=== PATIENT | female | born 1940 | race Caucasian/White ===

== ENCOUNTER 2019-02-05 15:10 | Emergency (ER) | payer MEDICARE, SELFPAY ==
[2018-11-25 13:16] VITALS: BMI 34.0
[2019-02-05 15:11] VITALS: BP 146/98; PULSE 64; RESP 16; TEMP 36.9; O2SAT 98; BMI 33.6
--- NOTE | 2019-02-05 15:30 | CT_ITS ---
STUDY: CT CHEST WITH CONTRAST REASON FOR EXAM: Female, 78 years old. Right flank pain, fall RADIATION DOSAGE (If Supplied By Facility): CTDIvol = ( 18.11 ) mGy, DLP = ( 1528.54 ) mGycm TECHNIQUE: Transaxial imaging was performed following intravenous administration of 100 IV Isovue 300. Multiplanar coronal and sagittal images were reformatted. Individualized dose optimization techniques were used for this CT. COMPARISON: None. FINDINGS: Minimal atelectasis in the lung bases. There is no demonstrated pleural abnormality. Normal heart and pericardium. Normal mediastinum. Normal hilar regions. Normal enhanced pulmonary arteries. Normal aorta arch and descending thoracic aorta. There is surgical clips of the left breast/axilla. Low-density nodule in the central left breast is seen on image 50 with ringlike calcification anteriorly. There is a transverse, mildly displaced fracture of the right posterior 11th rib on image 95 of series 2. No additional rib fractures are seen. Upper abdomen described on abdomen/pelvis CT report. CT/Chest WITH Contrast IMPRESSION: 1. Nondisplaced right posterior 11th rib fracture. 2. Scarring in the lingula, possibly related to prior radiation therapy. 3. 1.4 cm nodule left breast, correlation with prior imaging/mammography suggested. Electronically Signed: Cecilio Phillips MD at 16:36 EDT , Service support ,
--- NOTE | 2019-02-05 15:30 | CT_ITS ---
STUDY: CT ABDOMEN AND PELVIS WITH CONTRAST REASON FOR EXAM: Female, 78 years old. Fall, right flank pain RADIATION DOSAGE (If Supplied By Facility): CTDIvol = ( 18.11 ) mGy, DLP = ( 1528.54 ) mGycm TECHNIQUE: Transaxial images were obtained from the dome of the diaphragm to the symphysis pubis without oral contrast. 100 IV Isovue 300 was administered. Sagittal and coronal images were reconstructed. Individualized dose optimization techniques were used for this CT. COMPARISON: None. FINDINGS: The visualized lung bases are unremarkable. The visualized portions of the heart are within normal limits. There is intrahepatic and extrahepatic bile duct dilation with the CBD measuring up to 9.4 mm. Rounded soft tissue density in the lower CBD is identified in coronal image 55 measuring 8-9 mm. The gallbladder appears to be surgically absent. There are multiple benign calcified granulomata of the spleen. Normal pancreas. There is a nodule of the left adrenal gland measuring 8.8 mm. Normal right kidney. Normal left kidney. Normal visualized stomach. Normal small intestine. No colonic wall thickening. There is non-visualization of the appendix. There is diffuse atherosclerotic calcification of the abdominal aorta, without a demonstrated aneurysm. Normal inferior vena cava. Normal retroperitoneum. Normal urinary bladder. Normal abdominal wall. There degenerative changes of the lumbar spine. Grade 1 spondylolisthesis of L4-L5 likely due to facet arthropathy. Canal narrowing at L3-L4 and L4-L5. CT/Abdomen/Pelvis WITH Contrast IMPRESSION: 1. No solid or injury or pneumoperitoneum. 2. Extrahepatic and intrahepatic bile duct dilation with possible distal CBD obstruction. Correlation with laboratory/bilirubin values recommended. Additional workup may be needed. 3. Indeterminate adrenal lesion which does not meet imaging criteria for a lipid rich adenoma. 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 4. Chronic changes, as above. Electronically Signed: Cecilio Phillips MD at 16:33 EDT , Service support ,
--- NOTE | 2019-02-05 15:31 | ED.VISSUMM ---
- ER Visit Summary Date of Service: 02/05/19 Chief Complaint: Fall History of Present Illness: The patient is a 78 F who presents after a fall. Patient leaned out the door of her camper and was going to pull the door shut but lost her balance and fell over the side of the stairs instead. She was up 3 stairs and fell down onto wooden furniture below. Patient denies hitting her head or hurting her neck. She is complaining of right sided back and chest pain. Patient has worsening pain with deep breath. She does not denies any shortness of breath. She is on aspirin daily. Has history of breast cancer on the left. Is not on any other blood thinners. Denies any other injuries. Physical Examination: Vital signs: afebrile, hemodynamically stable, no hypoxia on room air General: well nourished, well developed, in no distress Skin: warm, dry, no rash, no pallor HEENT: normocephalic and atraumatic; PERRL, EOMI, moist mucous membranes, no maxillofacial trauma, neck is supple, no midline tenderness deformities or step-offs, full active range of motion Cardiovascular: regular rate and rhythm without murmurs, no peripheral edema, 2+ pulses all distal extremities, tenderness to palpation of the right chest without any noted crepitus Respiratory: No increased work of breathing but more shallow breaths secondary to pain, lungs are clear to auscultation bilaterally, no rales, rhonchi or wheezing Abdominal: Abdomen is soft, nontender with normoactive bowel sounds, no guarding or rebound, no masses Back: Contusion on the right flank with diffuse tenderness of the right thoracic and lumbar back MSK: Moves all extremities, no deformities, normal strength Neuro: Awake and alert, oriented ?4. No facial droop, sensation and motor function intact and symmetric Test Results: Abnormal Lab Results 02/05/19 02/05/19 02/05/19 15:40 15:40 15:40 WBC 7.8 RBC 3.76 L Hgb 11.4 L Hct 35.1 L MCV 93.4 MCH 30.3 MCHC 32.5 RDW 13.3 RDW Differential 44.3 H Plt Count 256 MPV 10.8 Immature Gran % (Auto) 0.300 Neut % (Auto) 69.4 Lymph % (Auto) 21.0 [place] % (Auto) 7.9 Eos % (Auto) 1.0 Baso % (Auto) 0.4 Absolute Neuts (auto) 5.4 Absolute Lymphs (auto) 1.64 Total Counted Not Reportable PT 13.1 INR 1.0 APTT 27.9 Sodium 141 Potassium 3.9 Chloride 106 Carbon Dioxide 28.0 Anion Gap 7 BUN 30 H Creatinine 1.75 H Estim Creat Clear Calc 20.95 Est GFR (MDRD) Af Amer 36 L Est GFR (MDRD) Non-Af 30 L BUN/Creatinine Ratio 17.1 Glucose 100 Calcium 8.7 Clinical Impression(s) from Imaging Studies Abdomen/Pelvis CT 02/05/19 15:30 IMPRESSION: 1. No solid or injury or pneumoperitoneum. 2. Extrahepatic and intrahepatic bile duct dilation with possible distal CBD obstruction. Correlation with laboratory/bilirubin values recommended. Additional workup may be needed. 3. Indeterminate adrenal lesion which does not meet imaging criteria for a lipid rich adenoma. 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 4. Chronic changes, as above. Electronically Signed: Cecilio Phillips MD at 16:33 EDT , Service support , Chest CT 02/05/19 15:30 IMPRESSION: 1. Nondisplaced right posterior 11th rib fracture. 2. Scarring in the lingula, possibly related to prior radiation therapy. 3. 1.4 cm nodule left breast, correlation with prior imaging/mammography suggested. Electronically Signed: Cecilio Phillips MD at 16:36 EDT , Service support , Medications Given Discontinued Medications Sodium Chloride () 1,000 mls @ 999 mls/hr IV .Q1H1M ONE Stop: 02/05/19 16:30 Last Admin: 02/05/19 15:42 Dose: 999 mls/hr Morphine Sulfate () 4 mg IV X1 ONE Stop: 02/05/19 15:31 Last Admin: 02/05/19 15:42 Dose: 4 mg Ondansetron HCl (Zofran) 4 mg IV X1 ONE Stop: 02/05/19 15:31 Last Admin: 02/05/19 15:42 Dose: 4 mg Emergency Department Course and Treatment: Patient was given morphine and Zofran for symptomatic relief. Labs showed no significant derangements from patient's baseline. Because of her age and the mechanism of injury and location of her injuries, CT of the chest abdomen and pelvis was performed. There is no intra-abdominal or intrathoracic trauma noted, however patient did have a nondisplaced right posterior rib fracture. Patient was started on an incentive spirometer and given a prescription for oxycodone to use for severe pain. She would prefer to use Tylenol for pain, but we discussed the importance of her breathing comfortably, thus she was given the opiate for any severe pain to make sure her pain is well controlled. Patient was feeling better at time of discharge. She lives with family and they will keep a close eye on her. Patient was discharged home in improved condition. Treatment Plan: [] Disposition: [] Impression: Right 11th rib nondisplaced fracture This note was generated with [employer] dictation software. It may contain incorrect words, spelling, and punctuation that were not noted in review of the chart prior to signing ED Disposition - Plan for ED Patient: Disposition: Home or Assisted Living Instructions: ED Fx Rib Prescriptions: RX: Oxycodone [Oxyir] 5 mg PO Q6H PRN PRN 5 Days #15 tab PRN Reason: Pain Referrals: Yoav Beard MD [Primary Care Provider] - 3-5 Days if not improving Additional Instructions: Please use Tylenol as needed for mild to moderate pain. Please use the oxycodone to supplement your Tylenol as needed for severe or nighttime pain. We want you to be comfortable breathing to help prevent pneumonia from your rib fracture. You careful when using the oxycodone, as it may make you sleepy or dizzy. Use the incentive spirometer 10 times an hour while awake. If you have any worsening of your condition or any new concerning symptoms, please return immediately to the emergency department for another evaluation.
--- NOTE | 2019-02-05 15:34 | ED.DCSUM_ITS ---
- ER Visit Summary Date of Service: 02/05/19 Chief Complaint: Fall History of Present Illness: The patient is a 78 F who presents after a fall. Patient leaned out the door of her camper and was going to pull the door shut but lost her balance and fell over the side of the stairs instead. She was up 3 stairs and fell down onto wooden furniture below. Patient denies hitting her head or hurting her neck. She is complaining of right sided back and chest pain. Patient has worsening pain with deep breath. She does not denies any shortness of breath. She is on aspirin daily. Has history of breast cancer on the left. Is not on any other blood thinners. Denies any other injuries. Physical Examination: Vital signs: afebrile, hemodynamically stable, no hypoxia on room air General: well nourished, well developed, in no distress Skin: warm, dry, no rash, no pallor HEENT: normocephalic and atraumatic; PERRL, EOMI, moist mucous membranes, no maxillofacial trauma, neck is supple, no midline tenderness deformities or step- offs, full active range of motion Cardiovascular: regular rate and rhythm without murmurs, no peripheral edema, 2+ pulses all distal extremities, tenderness to palpation of the right chest without any noted crepitus Respiratory: No increased work of breathing but more shallow breaths secondary to pain, lungs are clear to auscultation bilaterally, no rales, rhonchi or wheezing Abdominal: Abdomen is soft, nontender with normoactive bowel sounds, no guarding or rebound, no masses Back: Contusion on the right flank with diffuse tenderness of the right thoracic and lumbar back MSK: Moves all extremities, no deformities, normal strength Neuro: Awake and alert, oriented ?4. No facial droop, sensation and motor function intact and symmetric Test Results: Abnormal Lab Results 02/05/19 02/05/19 02/05/19 15:40 15:40 15:40 WBC 7.8 RBC 3.76 L Hgb 11.4 L Hct 35.1 L MCV 93.4 MCH 30.3 MCHC 32.5 RDW 13.3 RDW Differential 44.3 H Plt Count 256 MPV 10.8 Immature Gran % (Auto) 0.300 Neut % (Auto) 69.4 Lymph % (Auto) 21.0 [place] % (Auto) 7.9 Eos % (Auto) 1.0 Baso % (Auto) 0.4 Absolute Neuts (auto) 5.4 Absolute Lymphs (auto) 1.64 Total Counted Not Reportable PT 13.1 INR 1.0 APTT 27.9 Sodium 141 Potassium 3.9 Chloride 106 Carbon Dioxide 28.0 Anion Gap 7 BUN 30 H Creatinine 1.75 H Estim Creat Clear Calc 20.95 Est GFR (MDRD) Af Amer 36 L Est GFR (MDRD) Non-Af 30 L BUN/Creatinine Ratio 17.1 Glucose 100 Calcium 8.7 Clinical Impression(s) from Imaging Studies Abdomen/Pelvis CT 02/05/19 15:30 IMPRESSION: 1. No solid or injury or pneumoperitoneum. 2. Extrahepatic and intrahepatic bile duct dilation with possible distal CBD obstruction. Correlation with laboratory/bilirubin values recommended. Additional workup may be needed. 3. Indeterminate adrenal lesion which does not meet imaging criteria for a lipid rich adenoma. 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 4. Chronic changes, as above. Electronically Signed: Cecilio Phillips MD at 16:33 EDT , Service support , Chest CT 02/05/19 15:30 IMPRESSION: 1. Nondisplaced right posterior 11th rib fracture. 2. Scarring in the lingula, possibly related to prior radiation therapy. 3. 1.4 cm nodule left breast, correlation with prior imaging/mammography suggested. Electronically Signed: Cecilio Phillips MD at 16:36 EDT , Service support , Medications Given Discontinued Medications Sodium Chloride () 1,000 mls @ 999 mls/hr IV .Q1H1M ONE Stop: 02/05/19 16:30 Last Admin: 02/05/19 15:42 Dose: 999 mls/hr Morphine Sulfate () 4 mg IV X1 ONE Stop: 02/05/19 15:31 Last Admin: 02/05/19 15:42 Dose: 4 mg Ondansetron HCl (Zofran) 4 mg IV X1 ONE Stop: 02/05/19 15:31 Last Admin: 02/05/19 15:42 Dose: 4 mg Emergency Department Course and Treatment: Patient was given morphine and Zofran for symptomatic relief. Labs showed no significant derangements from patient's baseline. Because of her age and the mechanism of injury and location of her injuries, CT of the chest abdomen and pelvis was performed. There is no intra- abdominal or intrathoracic trauma noted, however patient did have a nondisplaced right posterior rib fracture. Patient was started on an incentive spirometer and given a prescription for oxycodone to use for severe pain. She would prefer to use Tylenol for pain, but we discussed the importance of her breathing comfortably, thus she was given the opiate for any severe pain to make sure her pain is well controlled. Patient was feeling better at time of discharge. She lives with family and they will keep a close eye on her. Patient was discharged home in improved condition. Treatment Plan: [] Disposition: [] Impression: Right 11th rib nondisplaced fracture This note was generated with [employer] dictation software. It may contain incorrect words, spelling, and punctuation that were not noted in review of the chart prior to signing ED Disposition - Plan for ED Patient: Disposition: Home or Assisted Living Instructions: ED Fx Rib Prescriptions: RX: Oxycodone [Oxyir] 5 mg PO Q6H PRN PRN 5 Days #15 tab PRN Reason: Pain Referrals: Yoav Beard MD [Primary Care Provider] - 3-5 Days if not improving Additional Instructions: Please use Tylenol as needed for mild to moderate pain. Please use the oxycodone to supplement your Tylenol as needed for severe or nighttime pain. We want you to be comfortable breathing to help prevent pneumonia from your rib fracture. You careful when using the oxycodone, as it may make you sleepy or dizzy. Use the incentive spirometer 10 times an hour while awake. If you have any worsening of your condition or any new concerning symptoms, please return immediately to the emergency department for another evaluation.
[2019-02-05] MEDS: 0.9% Normal Saline 1,000 ML 999 ML IV (15:42)
[2019-02-05] MEDS: Ondansetron 4 MG/2 ML Vial IV (15:42)
[2019-02-05] MEDS: Morphine 4 MG/ML Syringe IV (15:42)
[2019-02-05 15:58] LABS: Absolute Lymphocyte Count 1.64 X10^3/ul (0.83-4.51); Absolute Neutrophil Count 5.4 X10^3/uL (2.0-7.7); Basophil# 0.03 X10^3/uL; Basophil% 0.4 % (0-1); Eosinophil# 0.08 X10^3/uL; Hematocrit 35.1 % (37-47); Hemoglobin 11.4 g/dl (12.0-15.0); Lymphocyte # 1.64 X10^3/ul (4.0); Mean Corp Hgb Conc 32.5 g/gl (32-36); Mean Corpuscular Hgb 30.3 pg (27.0-32.0); Mean Corpuscular Volume 93.4 fL (81-99); Mean Platelet Vol. 10.8 fl (6.2-12.0); Monocyte# 0.62 X10^3/uL; Monocyte% 7.9 % (0-10); Neutrophil # 5.43 X10^3/uL (2.7-7.7); Neutrophil % 69.4 % (47-70); Platelet Count 256 K/mm3 (150-450); RBC Distribution Width CV 13.3 % (11.6-14.6); RBC Distribution Width SD 44.3 fl (35.1-43.9); Red Blood Count 3.76 M/mm3 (4.2-5.4); White Blood Count 7.8 K/mm3 (4.4-11.0)
[2019-02-05 15:59] LABS: POSITIVE COUNT NO; POSITIVE DIFFERENTIAL NO; POSITIVE MORPHOLOGY NO
[2019-02-05 16:04] LABS: Prothrombin Time (Protime)PT. 13.1 SECONDS (11.7-14.9)
[2019-02-05 16:05] LABS: Partial Thromboplast Time 27.9 Seconds (24.1-36.2)
[2019-02-05 16:10] LABS: Anion Gap 7 (5-15); BUN 30 mg/dL (7-18); BUN/Creat Ratio 17.1 RATIO (10-20); Calcium,Total 8.7 mg/dL (8.5-10.1); Chloride 106 mmol/L (98-107); Creatinine, Serum 1.75 mg/dL (0.55-1.02); EST Glomerular Filtration Rate 30 mL/min (>60); Est Glom Filt Rate - Afr Amer 36 mL/min (>60); Estimated Creatinine Clearance 20.95 ml/min; Glucose 100 mg/dL (74-106); Potassium 3.9 mmol/L (3.5-5.1); Sodium Level 141 mmol/L (136-145)
[2019-02-05 17:12] VITALS: BP 128/60; PULSE 61; RESP 17; O2SAT 98
== END 2019-02-05 17:17 | disposition home or self-care (01) ==
PROVIDERS: Emergency Provider Emergency Medicine; Family Provider Family Medicine; PCP Family Medicine
DX: S22.31XA Fracture of one rib, right side, initial encounter for closed fracture (principal); Z85.3 Personal history of malignant neoplasm of breast; W10.8XXA Fall (on) (from) other stairs and steps, initial encounter; Y93.89 Activity, other specified; Y92.89 Other specified places as the place of occurrence of the external cause; Y99.8 Other external cause status
CPT/HCPCS: 71260; 74177; 80048; 85025; 85610; 85730; 96361; 96374; 96375; 99285; J7030; Q9967; A4216; J2405

== ENCOUNTER 2022-08-05 19:15 | Emergency (ER) | payer MEDICARE, SELFPAY ==
[2022-08-05 19:17] VITALS: BP 193/66; PULSE 80; RESP 20; TEMP 35.6; O2SAT 96; BMI 34.2
--- NOTE | 2022-08-05 20:00 | CM.ED ---
KOKO called Mandy at [facility] and updated her that patient will need to be seen by [facility] when medically cleared. KOKO faxed face sheet to [facility]. Ginger DUTTA
--- NOTE | 2022-08-05 20:06 | CT_ITS ---
STUDY: CT BRAIN WITHOUT CONTRAST REASON FOR EXAM: Female, 81 years old. ams RADIATION DOSAGE (If Supplied By Facility): CTDIvol = ( 44.99 ) mGy, DLP = ( 749.49 ) mGycm TECHNIQUE: Transaxial CT imaging of the brain was performed without administration of intravenous contrast material. Individualized dose optimization techniques were used for this CT. COMPARISON: No relevant priors. FINDINGS: Normal soft tissue structures. Normal calvarium. Calcific plaquing of cavernous carotids Mild atrophy and moderate periventricular white matter ischemic changes. Normal basal ganglia and thalami. Normal brainstem. Normal cerebellum. There is no intracranial hemorrhage. There are no findings of an acute ischemic infarction. Postsurgical changes of the orbits. Normal visualized paranasal sinuses. CT/Brain/Head without Contrast IMPRESSION: Mild atrophy and moderate periventricular white matter ischemic change. No acute bleed or focal mass. . If concern for acute infarct or metastasis MRI recommended Electronically Signed: Solomon Pichardo MD at 21:14 EDT ,
[2022-08-05 20:35] LABS: Absolute Lymphocyte Count 1.25 X10^3/uL (0.83-4.51); Absolute Neutrophil Count 6.3 X10^3/uL (2.0-7.7); Basophil# 0.03 X10^3/uL; Basophil% 0.4 % (0-1); Eosinophil# 0.01 X10^3/uL; Eosinophils% 0.1 % (0-5); Hematocrit 33.2 % (37-47); Hemoglobin 10.7 g/dL (12.0-15.0); Lymphocyte # 1.25 X10^3/ul (0.83-4.51); Lymphocyte % 15.6 % (19-41); Mean Corp Hgb Conc 32.2 g/dL (32-36); Mean Corpuscular Volume 96.2 fL (81-99); Mean Platelet Vol. 10.8 fl (6.2-12.0); Monocyte# 0.41 X10^3/uL; Monocyte% 5.1 % (0-10); NRBC Flagged by Analyzer 0 % (0-5); Neutrophil # 6.28 X10^3/uL (2.7-7.7); Neutrophil % 78.4 % (47-70); Platelet Count 198 K/mm3 (150-450); RBC Distribution Width CV 13.3 % (11.6-14.6); RBC Distribution Width SD 47.3 fl (35.1-43.9); Red Blood Count 3.45 M/mm3 (4.2-5.4)
--- NOTE | 2022-08-05 20:35 | RAD_ITS ---
STUDY: X-RAY CHEST REASON FOR EXAM: Female, 81 years old. ams TECHNIQUE: AP portable COMPARISON: None. FINDINGS: Mild interstitial thickening in the lower lobes slightly more pronounced on the left. Tiny calcified granuloma in left upper lobe blunted left costophrenic sulcus likely representing pleural thickening although cannot completely exclude tiny pleural effusion.. Heart is mildly enlarged although exaggerated by radiographic technique... Normal mediastinum and [place]. Normal visualized pulmonary arteries. Mildly calcified aortic arch and descending thoracic aorta. Normal visualized thoracic spine. Normal visualized ribs, clavicles, and shoulders. There is no demonstrated abnormality of the visualized soft tissue structures of the upper abdomen. RAD/Chest 1 View (Portable) IMPRESSION: Mild bibasilar chronic interstitial thickening.. Cannot definitively exclude tiny left pleural effusion versus pleural thickening Electronically Signed: Solomon Pichardo MD at 21:01 EDT ,
[2022-08-05 20:45] LABS: ALB/GLOB Ratio 0.8 RATIO (0.9-2.4); AST(SGOT) 20 U/L (15-37); Alanine Aminotransfer ALT/SGPT 22 U/L (13-56); Albumin, Serum 3.2 g/dL (3.2-5.0); Alkaline Phosphatase 76 U/L (45-117); Anion Gap 5 (5-15); BUN 25 mg/dL (7-18); BUN/Creat Ratio 18.4 RATIO (10-20); Calcium,Total 9.1 mg/dL (8.5-10.1); Chloride 109 mmol/L (98-107); Creatinine, Serum 1.36 mg/dL (0.55-1.02); EST Glomerular Filtration Rate 40 mL/min (>60); Est Glom Filt Rate - Afr Amer 48 mL/min (>60); Estimated Creatinine Clearance 25.66 ml/min; Globulin 3.8 g/dL (2.2-4.2); Glucose 131 mg/dL (74-106); Potassium 4.1 mmol/L (3.5-5.1); Sodium Level 143 mmol/L (136-145)
--- NOTE | 2022-08-05 20:52 | EDS_ITS ---
HPI History of Present Illness Chief Complaint: Confusion Narrative Narrative: 81-year-old female presenting with confusion. She is diagnosed with metastatic breast cancer with to the hips. This has been in remission. She had recent imaging that showed this was in remission. She is not on any chemotherapy. Her daughter reports that she has some kind of injection that she has in her lower back once a month for pain. She is also recently diagnosed with dementia. No medications were started for this. Family reports that she not making much sense today. Her symptoms actually started yesterday. She lives with her nephew and his . They report they found her in bed with a done. Patient does not have any psychiatric history. Patient's gun was taken and she stated to her nephew I will just go ahead and slit my throat then. Patient's daughter does state that she feels that her mom is confused and sometimes she knows she is confused which makes her anxious. Patient has had no falls. Family reports that she has been eating and drinking normally. She is making n ormal urine and stool. I do not know if she has history of UTIs. They do report that she is not had a fever, chills. Patient has been ambulatory around the house without difficulty. No facial droop was noted or inability to use her extremities. They feel that she is intermittently confused and may have some slurred speech. She has a distant history of TIA reported by the family. [facility] Medical History Chronic kidney disease Dementia Hx of breast cancer Hypertension Skin cancer Home Medications Omeprazole [Prilosec] 20 mg PO DAILY 12/30/16 [History Last Taken Unknown] aspirin 325 mg tablet 325 mg PO DAILY@0800 12/30/16 [History Last Taken Unknown] bupropion HCl 150 mg tablet,12 hr sustained-release (Wellbutrin SR) 150 mg PO DAILY 12/30/16 [History Last Taken Unknown] hydrochlorothiazide 25 mg tablet 25 mg PO DAILY 12/30/16 [History Last Taken Unknown] lisinopril 40 mg tablet (Zestril) 10 mg PO DAILY 12/30/16 [History Last Taken Unknown] meloxicam 15 mg tablet (Mobic) 15 mg PO DAILY 12/30/16 [History Last Taken Unknown] solifenacin 5 mg tablet (Vesicare) 5 mg PO BID 12/30/16 [History Last Taken Unknown] escitalopram oxalate 20 mg tablet 10 mg PO DAILY 03/18/17 [History Last Taken Unknown] calcium carbonate 500 mg-vitamin D3 10 mcg (400 unit) chewable tablet (Calcium 500 + D) 1 tab PO DAILY 04/14/17 [History Last Taken Unknown] Iron 11/24/19 [History Last Taken Unknown] olanzapine 5 mg tablet 5 mg PO DAILY 08/05/22 [History Last Taken Unknown] ondansetron 8 mg disintegrating tablet 8 mg PO Q8H PRN Nausea 08/05/22 [History Last Taken Unknown] oxybutynin chloride 5 mg tablet 5 mg PO BID 08/05/22 [History Last Taken Unknown] Allergy/AdvReac Type Severity Reaction Status Date / Time acetaminophen AdvReac Severe hallucinati Verified 08/05/22 19:28 [From Darvocet-N] ons azithromycin [From Zithromax] AdvReac Severe swell/tingl Verified 08/05/22 19:28 e meperidine [From Demerol] AdvReac Severe numbness/vo Verified 08/05/22 19:28 miting oxytetracycline AdvReac Severe swell,tingl Verified 08/05/22 19:28 [From Terramycin] e Penicillins [PCN] AdvReac Severe swell,tingl Verified 08/05/22 19:28 e propoxyphene AdvReac Severe hallucinati Verified 08/05/22 19:28 [From Darvocet-N] ons Sulfa (Sulfonamide AdvReac Severe welts Verified 08/05/22 19:28 Antibiotics) Family History Father Hypertension Mother Alzheimer disease Diabetes Hypertension Surgical History History of appendectomy History of hysterectomy Hx of cholecystectomy Hx of tonsillectomy Social History Smoking Status: Former smoker ROS ROS ED Review of Systems ROS Unobtainable: Denies due to encephalopathy Constitutional Constitutional ED: Denies chills or fever(s) Eyes Eyes: Denies change in vision ENT ENT ED: Denies rhinorrhea or sore throat Cardiovascular Cardiovascular: Denies chest pain or palpitations Respiratory/Chest Respiratory/Chest: Denies cough or dyspnea Gastrointestinal Gastrointestinal: Denies abdominal pain, constipation, nausea or vomiting Genitourinary Genitourinary ED: Denies dysuria Musculoskeletal Musculoskeletal: Denies arthralgias Integumentary Denies abscess Neurologic Neurologic: Denies headache(s) or paresthesias Psychiatric Psychiatric: Reports suicidal thoughts; Denies anxiety or depression EXAM Physical Exam Const Vital Signs: 08/05/22 19:17 08/05/22 21:03 08/05/22 22:00 Temperature 96.1 F L Temperature Source Temporal Pulse Rate 80 75 70 Respiratory Rate 20 H 19 H 19 H Blood Pressure 193/66 H 165/52 H Blood Pressure Mean 108 89 Pulse Ox 96 94 95 Oxygen Delivery Method Room Air Room Air Room Air 08/05/22 23:00 08/06/22 00:00 Temperature Temperature Source Pulse Rate 73 70 Respiratory Rate 14 15 Blood Pressure 161/53 H 165/71 H Blood Pressure Mean 89 102 Pulse Ox 93 97 Oxygen Delivery Method Room Air Room Air Positive well nourished General Appearance ED: NAD; Negative for pallor HEENT Reports dry mucous membranes Mouth ED: Yes dry mucous membranes Mouth: dry mucous membranes Eyes PERRL and EOMs intact bilaterally General Eye ED: Negative for pale conjunctiva or scleral icterus Chest Wall inspection of chest normal and palpation of chest normal Resp normal respiratory effort Auscultation: Negative for rales, rhonchi or wheezes Cardio regular rate and regular rhythm GI normal to inspection, nondistended, normoactive bowel sounds Extremity normal to inspection Neuro CN's II-XII intact bilaterally and no sensory deficits noted Sensorium / Orientation: awake, alert and orientation impaired Coordination / Balance: [id number] test normal and [id number] test normal Motor Exam: strength 5/5 throughout Skin no rashes or lesions noted General Skin Exam: elasticity normal; Negative for jaundice or pallor MDM MDM MDM Narrative Medical decision making narrative: 81-year-old female presenting with confusion. She is recently diagnosed with dementia but not on any medications for this. She has been ambulatory at home and has not exhibited any unilateral weakness. She has had some speech issues but is not slurring here today. She does answer some questions appropriately and some she does not. She recognizes her family. No focal neurologic deficits or lateralizing signs or symptoms on exam. Sensation intact throughout. She has a history of breast cancer which is in remission. She is not on any chemotherapy. She is not had any fevers at home. Family reports that she is not hallucinating either audibly or visually. They stated that they were going to try to do consult with Dr. Kay from geriatrics. I do have concern that the patient had a gun in her bed the other day and when this was taken away she stated she would just slit her throat. Her family states that when she was younger she had an accidental overdose due to headache pain but they do not believe she was ever suicidal or homicidal. There is no history of psychiatric disease that they know of. They are concerned that the patient needs geriatric psychiatry. I did obtain a head CT which is interpreted as negative for acute intracranial findings. Again she does not have any evidence of stroke based on exam. Her CBC shows no leukocytosis. Her hemoglobin is 10.7 her last hemoglobin checked here was from 2 years ago and this will 11.9. There is no reported black or bloody stools. Platelets are normal at 198. Creatinine 1.36 which is actually improved 1.67 previously 2 years ago. Electrolytes within normal limits. LFTs are normal. Ammonia level is normal. Urinalysis negative for infection. Patient will be seen by crisis to evaluate for [facility]. Patient pending his consult. Patient was signed out to intermediate provider for monitoring until this can occur. Likely disposition is to geriatric psych facility. Impression: 1. History of dementia 2. Confusion 3. Concern for suicidal thoughts Lab Data Attestation: I reviewed the patient's lab results. Labs: Laboratory Results - last 24 hr 08/05/22 08/05/22 08/05/22 20:15 20:15 21:00 WBC 8.0 RBC 3.45 L Hgb 10.7 L Hct 33.2 L MCV 96.2 MCH 31.0 MCHC 32.2 RDW Std Deviation 47.3 H RDW Coeff of Jina 13.3 Plt Count 198 MPV 10.8 Immature Gran % (Auto) 0.400 Neut % (Auto) 78.4 H Lymph % (Auto) 15.6 L Windham % (Auto) 5.1 Eos % (Auto) 0.1 Baso % (Auto) 0.4 Absolute Neuts (auto) 6.3 Absolute Lymphs (auto) 1.25 Nucleated RBC % 0 Sodium 143 Potassium 4.1 Chloride 109 H Carbon Dioxide 29.0 Anion Gap 5 BUN 25 H Creatinine 1.36 H Estim Creat Clear Calc 25.66 Est GFR (MDRD) Af Amer 48 L Est GFR (MDRD) Non-Af 40 L BUN/Creatinine Ratio 18.4 Glucose 131 H Calcium 9.1 Total Bilirubin 0.30 AST 20 ALT 22 Alkaline Phosphatase 76 Ammonia < 10.0 L Total Protein 7.0 Albumin 3.2 Globulin 3.8 Albumin/Globulin Ratio 0.8 L Urine Color Urine Clarity Urine pH Ur Specific Mccarley Urine Protein Urine Glucose (UA) Urine Ketones Urine Occult Blood Urine Nitrite Urine Bilirubin Urine Urobilinogen Ur Leukocyte Esterase Urine RBC Urine WBC Ur Squamous Epith Cells Urine Bacteria Urine Mucus 08/05/22 21:20 WBC RBC Hgb Hct MCV MCH MCHC RDW Std Deviation RDW Coeff of Jina Plt Count MPV Immature Gran % (Auto) Neut % (Auto) Lymph % (Auto) Windham % (Auto) Eos % (Auto) Baso % (Auto) Absolute Neuts (auto) Absolute Lymphs (auto) Nucleated RBC % Sodium Potassium Chloride Carbon Dioxide Anion Gap BUN Creatinine Estim Creat Clear Calc Est GFR (MDRD) Af Amer Est GFR (MDRD) Non-Af BUN/Creatinine Ratio Glucose Calcium Total Bilirubin AST ALT Alkaline Phosphatase Ammonia Total Protein Albumin Globulin Albumin/Globulin Ratio Urine Color Yellow Urine Clarity Clear Urine pH 5.0 Ur Specific Mccarley 1.025 Urine Protein 30 H Urine Glucose (UA) Normal Urine Ketones 15 H Urine Occult Blood 10 H Urine Nitrite Negative Urine Bilirubin Negative Urine Urobilinogen Normal Ur Leukocyte Esterase Negative Urine RBC 0 SEEN Urine WBC 0-5 SEEN Ur Squamous Epith Cells 0 SEEN Urine Bacteria RARE Urine Mucus 0 SEEN Radiography Diagnostic Testing: Clinical Impression(s) from Imaging Studies Brain CT 08/05/22 20:06 IMPRESSION: Mild atrophy and moderate periventricular white matter ischemic change. No acute bleed or focal mass. . If concern for acute infarct or metastasis MRI recommended Electronically Signed: Solomon Pichardo MD at 21:14 EDT Reading Location ID and State: [facility] / [place] , Service support , Chest X-Ray 08/05/22 20:35 IMPRESSION: Mild bibasilar chronic interstitial thickening.. Cannot definitively exclude tiny left pleural effusion versus pleural thickening Electronically Signed: Solomon Pichardo MD at 21:01 EDT , Discharge Plan Triage Chief Complaint: Confusion ED Provider: Chacho Epperson Dx/Rx/DC Orders Prescriptions: No Action bupropion HCl [Wellbutrin SR] 150 MG Tablet.Er 150 mg PO DAILY aspirin 325 MG tablet 325 mg PO DAILY@0800 meloxicam [Mobic] 15 MG tablet 15 mg PO DAILY solifenacin [Vesicare] 5 MG tablet 5 mg PO BID hydrochlorothiazide 25 MG tablet 25 mg PO DAILY lisinopril [Zestril] 40 MG tablet 10 mg PO DAILY Omeprazole [Prilosec] 40 MG capsule 20 mg PO DAILY escitalopram oxalate 20 MG tablet 10 mg PO DAILY calcium carbonate-vitamin D3 [Calcium 500 + D] 1 EACH Tab.Chew 1 tab PO DAILY Iron Rx Instructions: OTC Iron oxybutynin chloride 5 mg Tablet 5 mg PO BID ondansetron 8 mg Tablet,Disintegrating 8 mg PO Q8H PRN (Reason: Nausea) olanzapine 5 mg tablet 5 mg PO DAILY Primary Care Provider: Yoav Beard Referrals: Yoav Beard MD [Primary Care Provider] -
[2022-08-05 21:03] VITALS: PULSE 75; RESP 19; O2SAT 94
[2022-08-05 21:24] LABS: Mucous, Urine 0 SEEN /hpf (<or=2+); Red Blood Cells-Urine 0 SEEN /hpf (0-5); Squamous Epithelial Cells - UA 0 SEEN /hpf (5-10)
[2022-08-05 21:27] LABS: Ammonia < 10.0 umol/L (11-32)
[2022-08-05 21:27] LABS: Glucose, Dipstick Normal (Normal); Ketone-Dipstick 15 mg/dl (Negative); Leukocyte Esterase-Dipstick Negative /ul (Negative); Nitrite-Dipstick Negative (Negative); Occult Blood-Urine 10 /ul (Negative); Protein-Dipstick 30 mg/dl (Negative); Specific Gravity, Urine 1.025 (1.002-1.030); Urine Bilirubin Dipstick Negative (Negative); Urine Urobilinogen Normal (Normal)
[2022-08-05 21:28] LABS: Color, Urine Yellow (Yellow); Urine Clarity Clear (Clear)
[2022-08-05 21:33] LABS: Bacteria RARE /hpf (None Seen); White Blood Cells 0-5 SEEN /hpf (0-5)
[2022-08-05 22:00] VITALS: BP 165/52; PULSE 70; RESP 19; O2SAT 95
[2022-08-05 23:00] VITALS: BP 161/53; PULSE 73; RESP 14; O2SAT 93
[2022-08-06] VITALS (7 sets, daily range): BP systolic 138–165; BP diastolic 47–79; PULSE 60–80; RESP 15–24; TEMP 36.2; O2SAT 93–97
--- NOTE | 2022-08-06 08:13 | ED.RN ---
COVID ORDERED FOR PATIENT -- ACCEPTED AT [facility] BY DR RODRIGUEZ BUT NEEDS TO HAVE PINK SLIP AND COVID RESULT SENT TO [phone]
--- NOTE | 2022-08-06 08:38 | ED.RN ---
[facility] REPORT CAN BE CALLED TO [phone] WITH ETA. ONE THE COVID AND PINK SLIP ARE FAXED
--- NOTE | 2022-08-06 09:29 | ED.RN ---
ATTEMPTED TO CALL REPORT MULTIPLE TIMES, IT CONTINUES TO HANG UP OR TELL THIS NURSE THE PERSON IS NOT AVAILABLE AND DISCONNECTS
== END 2022-08-06 11:34 ==
PROVIDERS: Emergency Provider Student in an Organized Health Care Education/Training Program; PCP Family Medicine; Visit Provider Student in an Organized Health Care Education/Training Program
DX: F03.90 Unspecified dementia, unspecified severity, without behavioral disturbance, psychotic disturbance, mood disturbance, and anxiety (principal); R45.851 Suicidal ideations; N18.9 Chronic kidney disease, unspecified; Z79.899 Other long term (current) drug therapy; Z87.891 Personal history of nicotine dependence
CPT/HCPCS: 70450; 71045; 80053; 81001; 82140; 85025; 87811; 93005; 99285; P9612; A4216

== ENCOUNTER → 2022-09-03 | Outpatient (CLI) | payer MEDICARE, SELFPAY ==
--- NOTE | 2022-09-03 18:11 | MRI_ITS ---
STUDY: MRI BRAIN WITHOUT CONTRAST REASON FOR EXAM: Female, 81 years old. VASCULAR DEMENTIA TECHNIQUE: Standardized multiplanar fat and water weighted pulse sequences were obtained. COMPARISON: CT brain August 05, 2022. FINDINGS: There is mild cerebral atrophy with widening of the extra-axial spaces and ventricular dilatation. There are multiple white matter hyperintensities, distributed throughout the deep white matter tracts of the cerebral hemispheres, consistent with moderate chronic white matter ischemic changes. There is no evidence for recent intracranial ischemia or other cause of cytotoxic edema on diffusion weighted imaging (DWI). Fluid in the mastoid air cells bilaterally. Normal bilateral basal ganglia. Normal thalami. There is no extra-axial fluid accumulation. Normal flow voids within the major intracranial circulation suggesting patency by spin echo criteria. Normal sella turcica, pituitary gland, infundibular stalk, optic chiasm and hypothalamus. Normal tectal plate and pineal gland. Normal midbrain, joseph and medulla. Normal cerebellum. Normal basal cisterns. Normal bilateral internal auditory canals. No demonstrated orbital abnormality, within the constraints of a routine brain study. Normal visualized paranasal sinuses. Normal calvarium and skull base. Normal visualized soft tissue structures. Normal visualized upper cervical spine. MRI/Brain without Contrast IMPRESSION: Bilateral mastoid effusions otherwise no acute intracranial disease Electronically Signed: Rodger Carrion MD at 0:04 EST ,
== END | disposition home or self-care (01) ==
PROVIDERS: PCP Family Medicine; Visit Provider Family Medicine Geriatric Medicine
DX: F01.50 Vascular dementia, unspecified severity, without behavioral disturbance, psychotic disturbance, mood disturbance, and anxiety (principal)
CPT/HCPCS: 70551

== ENCOUNTER 2023-03-08 17:04 | Emergency (ER) | payer MEDICARE, SELFPAY ==
[2023-03-08 17:05] VITALS: BP 219/99; PULSE 71; RESP 16; TEMP 36.8; O2SAT 98
[2023-03-08 17:25] VITALS: BP 234/82; PULSE 70; RESP 18; O2SAT 96
--- NOTE | 2023-03-08 17:30 | ED.VIS.FALL ---
HPI HPI - Fall History of Present Illness Chief Complaint: Fall PFSH PFSH Medical History Chronic kidney disease Dementia Hx of breast cancer Hypertension Skin cancer Home Medications Omeprazole [Prilosec] 20 mg PO DAILY 12/30/16 [History Last Taken Unknown] aspirin 325 mg tablet 325 mg PO DAILY@0800 12/30/16 [History Last Taken Unknown] bupropion HCl 150 mg tablet,12 hr sustained-release (Wellbutrin SR) 150 mg PO DAILY 12/30/16 [History Last Taken Unknown] hydrochlorothiazide 25 mg tablet 25 mg PO DAILY 12/30/16 [History Last Taken Unknown] lisinopril 40 mg tablet (Zestril) 10 mg PO DAILY 12/30/16 [History Last Taken Unknown] meloxicam 15 mg tablet (Mobic) 15 mg PO DAILY 12/30/16 [History Last Taken Unknown] solifenacin 5 mg tablet (Vesicare) 5 mg PO BID 12/30/16 [History Last Taken Unknown] escitalopram oxalate 20 mg tablet 10 mg PO DAILY 03/18/17 [History Last Taken Unknown] calcium carbonate 500 mg-vitamin D3 10 mcg (400 unit) chewable tablet (Calcium 500 + D) 1 tab PO DAILY 04/14/17 [History Last Taken Unknown] Iron 11/24/19 [History Last Taken Unknown] olanzapine 5 mg tablet 5 mg PO DAILY 08/05/22 [History Last Taken Unknown] ondansetron 8 mg disintegrating tablet 8 mg PO Q8H PRN Nausea 08/05/22 [History Last Taken Unknown] oxybutynin chloride 5 mg tablet 5 mg PO BID 08/05/22 [History Last Taken Unknown] clindamycin HCl 300 mg capsule 300 mg PO TID 3 days #9 caps 03/08/23 [Rx Last Taken Unknown] Allergy/AdvReac Type Severity Reaction Status Date / Time acetaminophen AdvReac Severe hallucinati Verified 03/08/23 17:07 [From Darvocet-N] ons azithromycin [From Zithromax] AdvReac Severe swell/tingl Verified 03/08/23 17:07 e meperidine [From Demerol] AdvReac Severe numbness/vo Verified 03/08/23 17:07 miting oxytetracycline AdvReac Severe swell,tingl Verified 03/08/23 17:07 [From Terramycin] e Penicillins [PCN] AdvReac Severe swell,tingl Verified 03/08/23 17:07 e propoxyphene AdvReac Severe hallucinati Verified 03/08/23 17:07 [From Darvocet-N] ons Sulfa (Sulfonamide AdvReac Severe welts Verified 03/08/23 17:07 Antibiotics) Family History Father Hypertension Mother Alzheimer disease Diabetes Hypertension Surgical History History of appendectomy History of hysterectomy Hx of cholecystectomy Hx of tonsillectomy Social History Smoking Status: Former smoker EXAM Physical Exam Const Vital Signs: 03/08/23 17:05 03/08/23 17:25 03/08/23 17:27 Temperature 98.3 F Temperature Source Temporal Pulse Rate 71 70 Respiratory Rate 16 18 Respiratory Effort Normal Blood Pressure 219/99 H 234/82 H Blood Pressure Mean 139 132 Pulse Ox 98 96 Oxygen Delivery Method Room Air Room Air 03/08/23 18:38 03/08/23 19:52 03/08/23 20:58 Temperature Temperature Source Pulse Rate 64 65 72 Respiratory Rate 18 18 18 Respiratory Effort Blood Pressure 222/111 H 224/69 H 224/83 H Blood Pressure Mean 148 120 130 Pulse Ox 97 96 96 Oxygen Delivery Method Room Air Room Air Room Air 03/08/23 21:31 Temperature Temperature Source Pulse Rate 57 L Respiratory Rate 18 Respiratory Effort Blood Pressure 210/79 H Blood Pressure Mean 122 Pulse Ox 97 Oxygen Delivery Method Room Air MDM MDM MDM Narrative Medical decision making narrative: HISTORY OF PRESENT ILLNESS: 82-year-old female here for fall. She is companied by the notes she was going to sit down in a chair. Notes a chair inside out from under patient fell. He notes a laceration to the left hand. They also state patient did not hit her head there is no head trauma. Patient denies any hip or back pain. States he sat out of the chair falling onto her left hand. Denies any wrist pain. REVIEW OF SYSTEMS: Pertinent positives: Hand pain, laceration Pertinent negatives: Head trauma, loss of conscious, numbness tingling or PHYSICAL EXAM: Nursing triage notes reviewed, Vital signs reviewed Constitutional: please see mdm Respiratory: No rales, no respiratory distress, no wheezing Cardiovascular: Regular rate and rhythm, no murmurs gallops or rubs Extremities: Compartments are soft, no lower extremity edema Neuro: Intact 5/5 strength with ok sign (median), intact finger abduction (ulnar) intact wrist extension (radial n). Intact sensation in the radial, ulnar, and median nerve distributions. Alert and oriented x3, neuro exam at baseline, cranial nerves II through XII are intact. No pain with extraocular muscle movement. There is negative test of skew. Normal speech. 5 of 5 strength in upper and lower extremities in flexion extension. Intact sensation to light touch in upper and lower extremity dermatomes. No truncal or extremity ataxia. No dysdiadochokinesia. Normal gait. 2+ reflexes. No meningeal signs. Negative Babinski. NIH of 0 Skin: Approximate 6 cm curvilinear laceration noted to the dorsal aspect of the left hand MEDICAL DECISION MAKING: Chief Complaint: Fall External records reviewed: Factors affecting care: Not on anticoagulation, CKD, dementia, hypertension Social determinants of health: Elderly History obtained from others: The patient's daughter Consults: None ALL IMAGES HAVE BEEN PERSONALLY REVIEWED AND INTERPRETED BY MYSELF. [facility] Narrative: I considered the following differential diagnosis: Hand fracture, dislocation, hand laceration Hand laceration was repaired. Please see below procedure note. Infectious precautions were discussed. X-ray showed no evidence of foreign body or fracture. Patient was noted to have elevated blood pressure. She seems symptomatic with no headache, no chest pain or shortness of breath. I gave a dose of her home blood pressure medicine here. I also obtained an EKG, chest x-ray and basic labs to rule out signs of end-organ hypoperfusion. I gave to milligrams IV labetalol. Unfortunately we cannot obtain labs due to poor IV access but were able to give 1 dose of IV labetalol. Blood pressure was downtrending prior to discharge. I had a shared decision-making discussed with the patient. She remained asymptomatic she had a nonfocal neuro exam no headache no visual changes no chest pain or shortness of breath still making urine and normal rate. Low suspicion for end-organ damage at this time despite her elevated blood pressure It was reassuring that her blood pressure was downtrending. The patient agreed. She agreed to follow with her primary care physician at the next billable appointment for outpatient antihypertensive titration. The patient suffered lacerations to the left hand There is no evidence to suggest foreign bodies were history and exam. Visual and tactile exams are unremarkable. There was no evidence of neurovascular injury. Patient had a normal distal vascular exam, and had full normal motor and sensory exams. There was also no evidence of tendon injury, with normal distal full range of motion, flexion, extension, abduction, abduction. There is no evidence of local joint space involvement at this time patient was irrigated with copious sterile normal saline and primary. Performed please see procedure note. The patient was given signs and symptoms warnings for infection, such as increasing pain, redness, swelling, associated heat, pus or fever. Patient was given instructions for timely follow-up for removal. Patient agreed with the plan of care. Total critical care time today provided was at least 0 minutes. This excludes separately billable procedures. Critical care time if documented is secondary to the patient having high probability of clinically significant/life threatening deterioration in the patient's condition which required my urgent intervention. Shared decision making: I will have a discussion with the patient and or visitors regarding risk/benefits of further testing or admission. They will be made aware of of the risk/benefits inherent in this decision they will be given the opportunity to voice understanding. Lab Data Attestation: I reviewed the patient's lab results. Lab results narrative: EKG with normal sinus rhythm, normal axis, normal intervals, no ST or T wave changes to suggest ischemia. No evidence of WPW, Brugada, ARVD. Radiography Chest X-Ray - ED: Read by ED Physician Diagnostic Testing: Clinical Impression(s) from Imaging Studies Hand X-Ray 03/08/23 18:20 IMPRESSION: Degenerative changes of the hand and wrist without acute fracture or dislocation. Electronically Signed: Lalo Milan DO at 19:14 EDT Reading Location ID and State: [facility] / [place] Tel [phone], Service support , Chest X-Ray 03/08/23 20:20 IMPRESSION: Degenerative changes, as described above. No demonstrated acute cardiopulmonary process. Electronically Signed: Lalo Milan DO at 21:12 EDT Reading Location ID and State: [facility] / [place] Tel [phone], Service support , I have personally reviewed the patient's chest x-ray. Chest x-ray is unremarkable for pulmonary edema, pneumothorax, pneumonia or focal cardiopulmonary abnormality. I personally viewed the patient's x-ray of the left hand. There is no obvious fracture dislocation or radiopaque foreign body noted. Procedures Lacerations e: Length: 2.36 in Depth: Skin Shape: Curvilinear Prep: Chlorhexadine Laceration repair: Lidocaine and Subcutaneous sutures Number of Sutures/[place]: 30 Suture Information: Vicryl, Simple and 5-0 Discharge Plan Triage Chief Complaint: Fall ED Provider: Antelmo Boland Dx/Rx/DC Orders Clinical Impression: Hand laceration, Hypertension Instructions: ED Laceration Extremity Prescriptions: New clindamycin HCl 300 mg capsule 300 mg PO TID 3 Days Qty: 9 0RF No Action bupropion HCl [Wellbutrin SR] 150 MG tablet sustained-release 12 hr 150 mg PO DAILY aspirin 325 MG tablet 325 mg PO DAILY@0800 meloxicam [Mobic] 15 MG tablet 15 mg PO DAILY solifenacin [Vesicare] 5 MG tablet 5 mg PO BID hydrochlorothiazide 25 MG tablet 25 mg PO DAILY lisinopril [Zestril] 40 MG tablet 10 mg PO DAILY Omeprazole [Prilosec] 40 MG capsule 20 mg PO DAILY escitalopram oxalate 20 MG tablet 10 mg PO DAILY calcium carbonate-vitamin D3 [Calcium 500 + D] 1 EACH tablet,chewable 1 tab PO DAILY Iron Rx Instructions: OTC Iron oxybutynin chloride 5 mg Tablet 5 mg PO BID ondansetron 8 mg Tablet,Disintegrating 8 mg PO Q8H PRN (Reason: Nausea) olanzapine 5 mg tablet 5 mg PO DAILY Primary Care Provider: Yoav Beard Referrals: Yoav Beard MD [Primary Care Provider] - Activity Restrictions/Additional Instructions: Thank you for trusting us with your care today! Please take Tylenol (2 pills, 650 mg), ibuprofen (2 pills, 400 mg) every 6 hours as needed for pain and fever control. Please return to the emergency department if your symptoms change or worsen. Specifically if develop signs of infection which include redness, swelling, white-yellow discharge, bleeding, increasing pain, fever, vomiting. Please monitor blood pressure closely. Please return develop headache, changes in vision, chest pain, shortness of breath, if you have not urinated for greater than 12-hour period. Please take antibiotics until course complete. Please clean your wound daily. First 24 to 48 hours use peroxide and topical antimicrobial ointment such as Neosporin. After the first 24 to 48 hours please use soap and water. Please change your dressing daily. Please follow with your primary care physician for further outpatient evaluation and management. Disposition Disposition: Home, Self Care Discharge Date/Time: 03/08/23 22:03
[2023-03-08 17:45] VITALS: BMI 30.8
[2023-03-08] MEDS: Lidocaine 1% (20 ml mdv) 20 ML Vial 5 ML INFILT (18:15)
--- NOTE | 2023-03-08 18:20 | RAD_ITS ---
STUDY: X-RAY - LEFT HAND REASON FOR EXAM: Female, 82 years old. Fall on outstretched hand after chair moved while patient was sitting down. Laceration of the posterior left hand. TECHNIQUE: 3 view(s) of the hand. COMPARISON: None. FINDINGS: There is joint space narrowing of the radiocarpal articulation consistent with degenerative arthrosis. Normal distal radioulnar joint. Normal visualized carpal bones. There is degenerative joint disease of the scaphotrapezium / trapezoid articulation. The remainder of the carpal articulations are normal. There is degenerative arthrosis of the carpometacarpal (CMC) articulation of the thumb. Normal second through fifth carpometacarpal joints. Normal metacarpi. Normal metacarpophalangeal joint of the thumb. Normal interphalangeal joint of the thumb. Normal proximal and distal phalanges of the thumb. Normal metacarpophalangeal joints of the second through fifth fingers. There is diffuse articular joint space narrowing of the proximal and distal interphalangeal joints of the second through fifth fingers, but without erosive changes or periarticular soft tissue swelling. Normal phalanges of the second through fifth fingers. Tissue prominence of the dorsum of the hand without foreign body. RAD/Hand Min 3 Views IMPRESSION: Degenerative changes of the hand and wrist without acute fracture or dislocation. Electronically Signed: Lalo Milan DO at 19:14 EDT Reading Location ID and State: [facility] Tel [phone], Service support ,
[2023-03-08 18:38] VITALS: BP 222/111; PULSE 64; RESP 18; O2SAT 97
[2023-03-08] MEDS: Lisinopril 20 MG Tablet PO (19:13)
[2023-03-08 19:52] VITALS: BP 224/69; PULSE 65; RESP 18; O2SAT 96
--- NOTE | 2023-03-08 19:59 | EKG12_ITS ---
Test Reason : DYSRHYTHMIA Blood Pressure : / mmHG Vent. Rate : 063 BPM Atrial Rate : 063 BPM P-R Int : 254 ms QRS Dur : 098 ms QT Int : 406 ms P-R-T Axes : 011 -42 013 degrees QTc Int : 415 ms Sinus rhythm with 1st degree A-V block Left axis deviation Moderate voltage criteria for LVH, may be normal variant ( R in aVL , Jose product ) Abnormal ECG Confirmed by RUI LI, RACQUEL ([id number]), food editor ROBERT STAPLES ([id number]) on 03/10/2023 8:47:41 AM Referred By: NILS Confirmed By:RACQUEL FABIAN MD
--- NOTE | 2023-03-08 20:20 | RAD_ITS ---
STUDY: X-RAY CHEST REASON FOR EXAM: Female, 82 years old. A retention. TECHNIQUE: Single AP portable view of the chest. COMPARISON: August 05, 2022. FINDINGS: The lungs are clear and expanded. There is no demonstrated pleural abnormality. Normal size heart. Normal mediastinum and [place]. Normal visualized pulmonary arteries. Normal visualized aortic arch and descending thoracic aorta. Normal visualized thoracic spine. There is degenerative osteoarthritis of the bilateral shoulders. There is no demonstrated abnormality of the visualized soft tissue structures of the upper abdomen. RAD/Chest 1 View (Portable) IMPRESSION: Degenerative changes, as described above. No demonstrated acute cardiopulmonary process. Electronically Signed: Lalo Milan DO at 21:12 EDT ,
[2023-03-08] MEDS: Clindamycin HCl 150 MG Capsule 300 MG PO (20:50)
[2023-03-08 20:58] VITALS: BP 224/83; PULSE 72; RESP 18; O2SAT 96
[2023-03-08] MEDS: Diphth,Pertuss(Acell),Tet Vac 0.5 ML Vial IM (21:19)
[2023-03-08] MEDS: Labetalol (Prefilled) 20 MG/4 ML 10 MG IV (21:23)
[2023-03-08 21:31] VITALS: BP 210/79; PULSE 57; RESP 18; O2SAT 97
== END 2023-03-08 22:03 | disposition home or self-care (01) ==
PROVIDERS: Emergency Provider Emergency Medicine; PCP Family Medicine; Visit Provider Emergency Medicine
DX: S61.419A Laceration without foreign body of unspecified hand, initial encounter (principal); W07.XXXA Fall from chair, initial encounter; Z23 Encounter for immunization; I12.9 Hypertensive chronic kidney disease with stage 1 through stage 4 chronic kidney disease, or unspecified chronic kidney disease; N18.9 Chronic kidney disease, unspecified; Z79.82 Long term (current) use of aspirin; Z79.1 Long term (current) use of non-steroidal anti-inflammatories (NSAID); Z79.899 Other long term (current) drug therapy; Z87.891 Personal history of nicotine dependence
CPT/HCPCS: 12002; 71045; 73130; 90471; 90715; 93005; 96374; 99284; A4216

== ENCOUNTER → 2023-05-29 | Outpatient (CLI) | payer MEDICARE, SELFPAY ==
--- NOTE | 2023-05-28 14:24 | RAD_ITS ---
STUDY: X-RAY - RIGHT FOOT CLINICAL: Female, 82 years old. Pressure ulcer. TECHNIQUE: 3 view(s) of the foot. COMPARISON: None. FINDINGS: Osteopenia. Mild arthrosis of the tibiotalar joint, the subtalar joint, the midfoot and the tarsometatarsal joints. Moderate arthrosis of the MTP and IP joints with hammertoe deformities. Diffuse mild soft tissue swelling . RAD/Foot min 3 Views IMPRESSION: Osteopenia with osteoarthritic changes and diffuse mild soft tissue swelling. No acute abnormality or bony erosion. Electronically Signed: James Nowak MD at 10:11 EDT ,
== END | disposition home or self-care (01) ==
PROVIDERS: PCP Family Medicine; Referring Provider Physician Assistant; Visit Provider Physician Assistant
DX: L97.503 Non-pressure chronic ulcer of other part of unspecified foot with necrosis of muscle (principal); L89.600 Pressure ulcer of unspecified heel, unstageable; D05.12 Intraductal carcinoma in situ of left breast
CPT/HCPCS: 73630

== ENCOUNTER → 2023-06-18 | Outpatient (CLI) | payer MEDICARE, SELFPAY | END | disposition home or self-care (01) | LOC: LAB 11:20 | PROVIDERS: PCP Family Medicine; Referring Provider Physician Assistant; Visit Provider Physician Assistant | DX: Z00.00 Encounter for general adult medical examination without abnormal findings (principal) | CPT/HCPCS: 36415; 80053; 83036; 85027 ==

== ENCOUNTER → 2023-08-19 | Outpatient (CLI) | payer MEDICARE, SELFPAY ==
[2023-08-19 17:08] LABS: Absolute Lymphocyte Count 3.15 X10^3/uL (0.83-4.51); Absolute Neutrophil Count 4.4 X10^3/uL (2.0-7.7); Basophil# 0.04 X10^3/uL; Basophil% 0.5 % (0-1); Eosinophil# 0.08 X10^3/uL; Hemoglobin 12.2 g/dL (12.0-15.0); Lymphocyte # 3.15 X10^3/ul (0.83-4.51); Lymphocyte % 37.6 % (19-41); Mean Corp Hgb Conc 31.3 g/dL (32-36); Mean Corpuscular Volume 99.2 fL (81-99); Mean Platelet Vol. 10.7 fl (6.2-12.0); Monocyte# 0.64 X10^3/uL; Monocyte% 7.6 % (0-10); NRBC Flagged by Analyzer 0 % (0-5); Neutrophil # 4.44 X10^3/uL (2.7-7.7); Neutrophil % 53.1 % (47-70); Platelet Count 260 K/mm3 (150-450); RBC Distribution Width CV 12.9 % (11.6-14.6); Red Blood Count 3.93 M/mm3 (4.2-5.4); White Blood Count 8.4 K/mm3 (4.4-11.0)
[2023-08-19 17:22] LABS: Vitamin D,25 Hydroxy 69.8 ng/mL
[2023-08-19 17:31] LABS: ALB/GLOB Ratio 0.7 RATIO (0.9-2.4); AST(SGOT) 14 U/L (15-37); Alanine Aminotransfer ALT/SGPT 12 U/L (13-56); Alkaline Phosphatase 109 U/L (45-117); Anion Gap 6 (5-15); BUN 22 mg/dL (7-18); BUN/Creat Ratio 16.8 RATIO (10-20); Calcium,Total 8.6 mg/dL (8.5-10.1); Chloride 103 mmol/L (98-107); Creatinine, Serum 1.31 mg/dL (0.55-1.02); EST Glomerular Filtration Rate 41 mL/min (>60); Est Glom Filt Rate - Afr Amer 50 mL/min (>60); Globulin 4.4 g/dL (2.2-4.2); Glucose 106 mg/dL (74-106); Potassium 3.9 mmol/L (3.5-5.1); Protein, Total 7.4 g/dL (6.4-8.2); Sodium Level 139 mmol/L (136-145); Thyroid Stim Hormone (TSH) 4.46 uIU/mL (0.358-3.74)
== END | disposition home or self-care (01) ==
LOC: POLAB3 15:36
PROVIDERS: PCP Family Medicine; Visit Provider Family Medicine Geriatric Medicine
DX: I10 Essential (primary) hypertension (principal); E55.9 Vitamin D deficiency, unspecified
CPT/HCPCS: 36415; 80053; 82306; 84443; 85025

== ENCOUNTER 2024-01-12 14:00 | Inpatient (IN) | payer MEDICARE, SELFPAY ==
[2024-01-12 14:02] VITALS: BP 148/79; PULSE 69; RESP 14; TEMP 36.3; O2SAT 98; BMI 31.7
--- NOTE | 2024-01-12 14:23 | CT_ITS ---
STUDY: CT BRAIN WITHOUT CONTRAST REASON FOR EXAM: Female, 83 years old. Head trauma RADIATION DOSAGE (If Supplied By Facility): CTDIvol = ( 47.06 ) mGy, DLP = ( 819.74 ) mGycm TECHNIQUE: Transaxial CT imaging of the brain was performed without administration of intravenous contrast material. Individualized dose optimization techniques were used for this CT. COMPARISON: No relevant priors. FINDINGS: Normal soft tissue structures. Normal calvarium. There is moderate cerebral atrophy with widening of the extra-axial spaces and ventricular dilatation. There are areas of decreased attenuation within the white matter tracts of the supratentorial brain, consistent with microvascular disease changes. 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 Normal brainstem. Normal cerebellum. There is no intracranial hemorrhage. There are no findings of an acute ischemic infarction. Atherosclerotic calcific plaques of the cavernous portions of the internal carotid arteries bilaterally. Normal visualized paranasal sinuses. CT/Brain/Head without Contrast IMPRESSION: Chronic involutional changes of the brain. 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 Electronically Signed: Naga Garcia MD at 15:23 EDT ,
--- NOTE | 2024-01-12 14:23 | CT_ITS ---
STUDY: CT CERVICAL SPINE WITHOUT CONTRAST REASON FOR EXAM: Female, 83 years old. Trauma due to a fall. RADIATION DOSAGE (If Supplied By Facility): CTDIvol = ( 21.91 ) mGy, DLP = ( 438.6 ) mGycm TECHNIQUE: High resolution transaxial imaging was performed without contrast material. Sagittal and coronal images were reconstructed. Individualized dose optimization techniques were used for this CT. COMPARISON: None FINDINGS: Normal craniovertebral junction. There are degenerative changes of the anterior atlantoaxial articulation. Normal odontoid process. There is straightening of the normal cervical lordosis. Normal vertebral bodies and posterior osseous elements. C2-3: Facet joint osteoarthritis and hypertrophy on the right side with right neural foraminal stenosis. C3-4: Mild degree of disc space narrowing. Facet joint osteoarthritis bilaterally. Uncovertebral arthrosis. Mild degree of bilateral neural foraminal stenosis. C4-5: Moderate degree of disc space narrowing. Spondylosis. Uncovertebral arthrosis. Left neural foraminal stenosis due to hypertrophy of the left facet joint. C5-6: Marked degree of disc space narrowing. Spondylosis. Uncovertebral arthrosis. Mild degree of bilateral neural foraminal stenosis. C6-7: Moderate degree of disc space narrowing and disc degeneration with spondylosis. C7-T1: Normal endplates. Normal disc height and morphology. Normal central canal and intervertebral neuroforamina. Atherosclerotic plaque formation of the aortic arch. CT/Spine Cervical without Contras IMPRESSION: Multilevel degenerative changes, as described above. Electronically Signed: Naga Garcia MD at 15:26 EDT ,
--- NOTE | 2024-01-12 14:24 | EKG12_ITS ---
Test Reason : Blood Pressure : / mmHG Vent. Rate : 069 BPM Atrial Rate : 069 BPM P-R Int : 188 ms QRS Dur : 084 ms QT Int : 406 ms P-R-T Axes : 023 -50 051 degrees QTc Int : 435 ms Normal sinus rhythm Left anterior fascicular block Moderate voltage criteria for LVH, may be normal variant ( R in aVL , [place] product ) Abnormal ECG Confirmed by Ted Louis ([id number]), video tape editor ROBERT STAPLES ([id number]) on 01/13/2024 10:35:20 AM Referred By: Confirmed By:Ted Louis
[2024-01-12] MEDS: Ondansetron 4 MG/2 ML Vial IV (14:39)
[2024-01-12] MEDS: Morphine 4 MG/ML Syringe IV ×3 (14:39→20:36)
--- NOTE | 2024-01-12 14:55 | RAD_ITS ---
STUDY: X-RAY - PELVIS AND LEFT HIP REASON FOR EXAM: Female, 83 years old. Pain TECHNIQUE: 3 views of the pelvis and hip. COMPARISON: None. FINDINGS: Moderate amount of material is seen in the colon. There are atherosclerotic vascular calcifications of the pelvic arteries. Normal bilateral iliac wings, sacroiliac joints and visualized sacrum. Normal bilateral superior and inferior pubic rami. Normal pubic symphysis. Normal bilateral ischial tuberosities. Comminuted facture of the left intertrochanteric region of the proximal left femur. RAD/HIP, UNI W/ Pelvis 2-3 Views IMPRESSION: Comminuted left intertrochanteric fracture. Electronically Signed: Naga Garcia MD at 15:10 EDT ,
--- NOTE | 2024-01-12 14:55 | RAD_ITS ---
STUDY: X-RAY CHEST REASON FOR EXAM: Female, 83 years old. surgical clearance TECHNIQUE: AP portable COMPARISON: March 08, 2023 FINDINGS: Elevated left hemidiaphragm and minor subsegmental atelectasis or scarring at the left base. Small calcified granuloma in left upper lobe. There is no demonstrated pleural abnormality. Normal size heart. Normal mediastinum and [place]. Normal visualized pulmonary arteries. Tortuous mildly calcified aortic arch and descending thoracic aorta. Dorsal spine demonstrates mild degenerative change. Normal visualized ribs, clavicles, and shoulders. There is no demonstrated abnormality of the visualized soft tissue structures of the upper abdomen. No significant change since prior study RAD/Chest 1 View (Portable) IMPRESSION: No acute cardiopulmonary pathology Electronically Signed: Solomon Pichardo MD at 16:53 EDT ,
--- NOTE | 2024-01-12 15:25 | CT_ITS ---
EXAM: CT LEFT LOWER EXTREMITY WITHOUT INTRAVENOUS CONTRAST CLINICAL INDICATION: hip fracture TECHNIQUE: Helically acquired images were obtained of the left lower extremity without intravenous contrast. 2-D reformats were performed by the technologist. This CT exam was performed using one or more of the following dose reduction techniques: automated exposure control, adjustment of the mA and/or kV according to patient size, and/or use of iterative reconstruction technique. COMPARISON: No relevant prior studies available. FINDINGS: BONES/JOINTS: Is severely comminuted intertrochanteric fracture of the left femur noted. The distal femoral shaft is angulated medially. The lesser trochanter fracture fragment is mildly displaced medially. No subluxation of the hip. The visualized bony pelvis is intact. SOFT TISSUES: Soft tissue contusion noted at the level of the fracture without significant hematoma formation. No soft tissue swelling or gas. No radiopaque foreign body. BLADDER: Sal catheter in place within a decompressed urinary bladder. CT/Extremity Lower without Contra IMPRESSION: Acute comminuted intertrochanteric fracture of the left femur. Electronically Signed: Jimi Rubin MD at 16:48 EDT ,
[2024-01-12 15:30] VITALS: BP 130/68; PULSE 78; RESP 24; O2SAT 96
[2024-01-12 15:37] LABS: Red Blood Cells-Urine 0 SEEN /hpf (0-5); Squamous Epithelial Cells - UA 0 SEEN /hpf (5-10)
[2024-01-12 15:43] LABS: Color, Urine Yellow (Yellow); Glucose, Dipstick Normal (Normal); Ketone-Dipstick 5 mg/dl (Negative); Leukocyte Esterase-Dipstick 100 /ul (Negative); Nitrite-Dipstick Negative (Negative); Occult Blood-Urine 25 /ul (Negative); Protein-Dipstick 30 mg/dl (Negative); Urine Clarity Clear (Clear); Urine Urobilinogen 1 mg/dl (Normal)
--- NOTE | 2024-01-12 15:49 | ED.VIS.LOWEX ---
HPI History of Present Illness Chief Complaint: Lower Extremity Injury [facility] Medical History Chronic kidney disease Dementia Hx of breast cancer Hypertension Skin cancer Home Medications lisinopril 40 mg tablet (Zestril) 20 mg PO DAILY 12/30/16 [History Last Taken Unknown] olanzapine 5 mg tablet 5 mg PO DAILY 08/05/22 [History Last Taken Unknown] oxybutynin chloride 5 mg tablet 5 mg PO BID 08/05/22 [History Last Taken Unknown] amlodipine 5 mg tablet 5 mg PO DAILY 01/12/24 [History Last Taken Unknown] citalopram 40 mg tablet 40 mg PO DAILY 01/12/24 [History Last Taken Unknown] cyclobenzaprine 5 mg tablet 5 mg PO QHS 01/12/24 [History Last Taken Unknown] divalproex 125 mg capsule,delayed release sprinkle 125 mg PO BID 01/12/24 [History Last Taken Unknown] galantamine 24 mg 24 hr capsule,extended release 24 mg PO DAILY 01/12/24 [History Last Taken Unknown] lisinopril 20 mg tablet 20 mg PO DAILY 01/12/24 [History Last Taken Unknown] melatonin 10 mg capsule 10 mg PO QHS 01/12/24 [History Last Taken Unknown] memantine 10 mg tablet 10 mg PO BID 01/12/24 [History Last Taken Unknown] Allergy/AdvReac Type Severity Reaction Status Date / Time acetaminophen AdvReac Severe hallucinati Verified 01/12/24 14:01 [From Darvocet-N] ons azithromycin [From Zithromax] AdvReac Severe swell/tingl Verified 01/12/24 14:01 e meperidine [From Demerol] AdvReac Severe numbness/vo Verified 01/12/24 14:01 miting oxytetracycline AdvReac Severe swell,tingl Verified 01/12/24 14:01 [From Terramycin] e Penicillins [PCN] AdvReac Severe swell,tingl Verified 01/12/24 14:01 e propoxyphene AdvReac Severe hallucinati Verified 01/12/24 14:01 [From Darvocet-N] ons Sulfa (Sulfonamide AdvReac Severe welts Verified 01/12/24 14:01 Antibiotics) Family History Father Hypertension Mother Alzheimer disease Diabetes Hypertension Surgical History History of appendectomy History of hysterectomy Hx of cholecystectomy Hx of tonsillectomy Social History Smoking Status: Former smoker EXAM Physical Exam Const Vital Signs: 01/12/24 14:02 01/12/24 15:30 01/12/24 17:00 Temperature 97.4 F L 98.1 F Temperature Source Temporal Pulse Rate 69 78 73 Respiratory Rate 14 24 H 19 H Blood Pressure 148/79 H 130/68 H 132/72 H Blood Pressure Mean 102 85 92 Pulse Ox 98 96 94 Oxygen Delivery Method Room Air 01/12/24 17:00 Temperature 98.1 F Temperature Source Oral Pulse Rate 73 Respiratory Rate 19 H Blood Pressure 132/72 H Blood Pressure Mean 92 Pulse Ox 94 Oxygen Delivery Method Room Air MDM MDM MDM Narrative Medical decision making narrative: Patient presenting with left hip pain after mechanical Shortened and internally rotated likely fracture. Patient medicated with morphine, Zofran. Patient would likely need surgical clearance and EKG was obtained which shows normal sinus rhythm with a ventricular rate of 69 bpm without ischemic change. CT brain and cervical spine were negative. No chest x-ray was obtained and patient has no acute process. X-rays of the left hip on my interpretation 3 views show left intertrochanteric fracture with comminution. Discussed case with Dr. Morgan who recommended a CT image to rule out malignancy on that side. CT of the left hip does not show any evidence of this. CBC shows leukocytosis of 18. Hemoglobin 12.9. Platelets are 294. Creatinine mildly elevated 1.38. Electrolytes are normal. Chest x-ray on my interpretation showed no acute cardiopulmonary process. The radiologist interpretation agrees. EKG sinus rhythm at 69 bpm without sign ischemic change or ectopy on my interpretation. Urinalysis negative for infection. Patient was discussed with hospitalist for admission for surgery. Impression: 1. mechanical fall 2. leukocytosis 3. Left intertrochanteric fracture 4. Closed head injury Lab Data Attestation: I reviewed the patient's lab results. Labs: Laboratory Results - last 24 hr 01/12/24 01/12/24 14:53 15:49 WBC 18.0 H RBC 4.15 L Hgb 12.9 Hct 40.7 MCV 98.1 MCH 31.1 MCHC 31.7 L RDW Std Deviation 46.8 H RDW Coeff of Jina 13.1 Plt Count 294 MPV 10.2 Immature Gran % (Auto) 0.500 Neut % (Auto) 88.1 H Lymph % (Auto) 8.4 L [place] % (Auto) 2.6 Eos % (Auto) 0.1 Baso % (Auto) 0.3 Absolute Neuts (auto) 15.9 H Absolute Lymphs (auto) 1.52 Nucleated RBC % 0 Sodium 139 Potassium 4.4 Chloride 105 Carbon Dioxide 29.0 Anion Gap 5 BUN 24 H Creatinine 1.38 H Estim Creat Clear Calc 30.01 Est GFR (MDRD) Af Amer 47 L Est GFR (MDRD) Non-Af 39 L BUN/Creatinine Ratio 17.4 Glucose 168 H Calcium 9.0 Urine Color Yellow Urine Clarity Clear Urine pH 6.0 Ur Specific [place] 1.020 Urine Protein 30 H Urine Glucose (UA) Normal Urine Ketones 5 H Urine Occult Blood 25 H Urine Nitrite Negative Urine Bilirubin 1 H Urine Urobilinogen 1 H Ur Leukocyte Esterase 100 H Urine RBC 0 SEEN Urine WBC 0-5 SEEN Ur Squamous Epith Cells 0 SEEN Urine Bacteria 1+ Urine Mucus 1+ Radiography Diagnostic Testing: Clinical Impression(s) from Imaging Studies Brain CT 01/12/24 14:23 IMPRESSION: Chronic involutional changes of the brain. 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 Electronically Signed: Naga Garcia MD at 15:23 EDT , Cervical Spine CT 01/12/24 14:23 IMPRESSION: Multilevel degenerative changes, as described above. Electronically Signed: Naga Garcia MD at 15:26 EDT , Chest X-Ray 01/12/24 14:55 IMPRESSION: No acute cardiopulmonary pathology Electronically Signed: Solomon Pichardo MD at 16:53 EDT , Hip/Pelvis X-Ray 01/12/24 14:55 IMPRESSION: Comminuted left intertrochanteric fracture. Electronically Signed: Naga Garcia MD at 15:10 EDT , Lower Extremity CT 01/12/24 15:25 IMPRESSION: Acute comminuted intertrochanteric fracture of the left femur. Electronically Signed: Jimi Rubin MD at 16:48 EDT , Discharge Plan Triage Chief Complaint: Lower Extremity Injury ED Provider: Chacho Epperson Dx/Rx/DC Orders Primary Care Provider: Yoav Beard
[2024-01-12 15:52] LABS: Urine Bilirubin Dipstick 1 mg/dL (Negative)
[2024-01-12 15:54] LABS: White Blood Cells 0-5 SEEN /hpf (0-5)
[2024-01-12 15:55] LABS: Bacteria 1+ /hpf (None Seen); Mucous, Urine 1+ /hpf (<or=2+)
[2024-01-12 15:55] LABS: Absolute Lymphocyte Count 1.52 X10^3/uL (0.83-4.51); Absolute Neutrophil Count 15.9 X10^3/uL (2.0-7.7); Basophil# 0.05 X10^3/uL; Basophil% 0.3 % (0-1); Eosinophil# 0.01 X10^3/uL; Eosinophils% 0.1 % (0-5); Hematocrit 40.7 % (37-47); Hemoglobin 12.9 g/dL (12.0-15.0); Lymphocyte # 1.52 X10^3/ul (0.83-4.51); Lymphocyte % 8.4 % (19-41); Mean Corp Hgb Conc 31.7 g/dL (32-36); Mean Corpuscular Hgb 31.1 pg (27.0-32.0); Mean Corpuscular Volume 98.1 fL (81-99); Mean Platelet Vol. 10.2 fl (6.2-12.0); Monocyte# 0.46 X10^3/uL; Monocyte% 2.6 % (0-10); NRBC Flagged by Analyzer 0 % (0-5); Neutrophil # 15.88 X10^3/uL (2.7-7.7); Neutrophil % 88.1 % (47-70); Platelet Count 294 K/mm3 (150-450); RBC Distribution Width CV 13.1 % (11.6-14.6); RBC Distribution Width SD 46.8 fl (35.1-43.9); Red Blood Count 4.15 M/mm3 (4.2-5.4)
[2024-01-12 16:06] LABS: Anion Gap 5 (5-15); BUN 24 mg/dL (7-18); BUN/Creat Ratio 17.4 RATIO (10-20); Chloride 105 mmol/L (98-107); Creatinine, Serum 1.38 mg/dL (0.55-1.02); EST Glomerular Filtration Rate 39 mL/min (>60); Est Glom Filt Rate - Afr Amer 47 mL/min (>60); Estimated Creatinine Clearance 30.01 ml/min; Glucose 168 mg/dL (74-106); Potassium 4.4 mmol/L (3.5-5.1); Sodium Level 139 mmol/L (136-145)
[2024-01-12 17:00] VITALS: BP 132/72; PULSE 73; RESP 19; TEMP 36.7; O2SAT 94
[2024-01-12 18:38] VITALS: BMI 30.4
[2024-01-12 19:06] VITALS: BP 146/52; PULSE 85; RESP 18; TEMP 36.5; O2SAT 96
--- NOTE | 2024-01-12 19:35 | PCM.HP.STD ---
HPI - General General Date of Admission: 01/12/24 HPI Narrative BUDDY BRADSHAW, is a 83 F who presents to the hospital after mechanical fall. She was standing in front of her recliner and was trying to turn to be able to sit into it and she lost her balance and fell onto her left hip. In the ER she had a CT of the brain which was unremarkable CT C-spine was also normal and her hip and pelvis x-ray demonstrated a left intertrochanteric fracture, orthopedic surgery was consulted in the ER and they requested a CT scan that did not demonstrate any additional findings. [facility] Medical History (Updated 01/12/24 @ 19:[address] Howard Fragoso MD) Anxiety Atrial fibrillation Chronic kidney disease Dementia Depression Hx of breast cancer Hypertension Skin cancer TIA (transient ischemic attack) Home Medications lisinopril 40 mg tablet (Zestril) 20 mg PO DAILY 12/30/16 [History Last Taken Unknown] olanzapine 5 mg tablet 5 mg PO DAILY 08/05/22 [History Last Taken Unknown] oxybutynin chloride 5 mg tablet 5 mg PO BID 08/05/22 [History Last Taken Unknown] amlodipine 5 mg tablet 5 mg PO DAILY 01/12/24 [History Last Taken Unknown] citalopram 40 mg tablet 40 mg PO DAILY 01/12/24 [History Last Taken Unknown] cyclobenzaprine 5 mg tablet 5 mg PO QHS 01/12/24 [History Last Taken Unknown] divalproex 125 mg capsule,delayed release sprinkle 125 mg PO BID 01/12/24 [History Last Taken Unknown] galantamine 24 mg 24 hr capsule,extended release 24 mg PO DAILY 01/12/24 [History Last Taken Unknown] lisinopril 20 mg tablet 20 mg PO DAILY 01/12/24 [History Last Taken Unknown] melatonin 10 mg capsule 10 mg PO QHS 01/12/24 [History Last Taken Unknown] memantine 10 mg tablet 10 mg PO BID 01/12/24 [History Last Taken Unknown] Allergy/AdvReac Type Severity Reaction Status Date / Time acetaminophen AdvReac Severe hallucinati Verified 01/12/24 14:01 [From Darvocet-N] ons azithromycin [From Zithromax] AdvReac Severe swell/tingl Verified 01/12/24 14:01 e meperidine [From Demerol] AdvReac Severe numbness/vo Verified 01/12/24 14:01 miting oxytetracycline AdvReac Severe swell,tingl Verified 01/12/24 14:01 [From Terramycin] e Penicillins [PCN] AdvReac Severe swell,tingl Verified 01/12/24 14:01 e propoxyphene AdvReac Severe hallucinati Verified 01/12/24 14:01 [From Darvocet-N] ons Sulfa (Sulfonamide AdvReac Severe welts Verified 01/12/24 14:01 Antibiotics) Family History Father Hypertension Mother Alzheimer disease Diabetes Hypertension Surgical History History of appendectomy History of hysterectomy Hx of cholecystectomy Hx of tonsillectomy Social History Smoking Status: Former smoker ROS Constitutional Constitutional: Denies chills, fatigue, fever(s) or malaise Eyes Eyes: Denies blurry vision ENT HEENT: Denies headache(s) or nasal discharge Cardiovascular Cardiovascular: Denies chest pain, dyspnea on exertion or syncope Respiratory/Chest Respiratory/Chest: Denies cough, shortness of breath at rest or shortness of breath with exertion Gastrointestinal Gastrointestinal: Denies constipation, diarrhea, nausea or vomiting Genitourinary Genitourinary: Denies dysuria Musculoskeletal Musculoskeletal: Reports joint pain Neurologic Neurologic: Denies focal weakness, numbness or tremor(s) Psychiatric Psychiatric: Denies anxiety or depression Vital Signs Vital Signs Vital Signs: 01/12/24 14:02 01/12/24 15:30 01/12/24 17:00 Temperature 97.4 F L 98.1 F Temperature Source Temporal Pulse Rate 69 78 73 Respiratory Rate 14 24 H 19 H Blood Pressure 148/79 H 130/68 H 132/72 H Blood Pressure Mean 102 85 92 Blood Pressure Source Blood Pressure Position Blood Pressure Location Pulse Ox 98 96 94 Oxygen Delivery Method Room Air 01/12/24 17:00 01/12/24 19:06 Temperature 98.1 F 97.7 F L Temperature Source Oral Oral Pulse Rate 73 85 Respiratory Rate 19 H 18 Blood Pressure 132/72 H 146/52 H Blood Pressure Mean 92 83 Blood Pressure Source Monitor Blood Pressure Position Semi-Fowlers Blood Pressure Location Right Arm Pulse Ox 94 96 Oxygen Delivery Method Room Air Room Air Weight Weight: 166 lb 9.6 oz Body Mass Index (BMI) 30.4 Physical Exam Narrative General: Alert, Oriented x3, Cooperative, No apparent distress HEENT: Atraumatic, PERRLA, EOMI, Normocephalic Oral: Moist Mucosa Neck: Supple, No JVD Lungs: Diminished, Normal air movement, No rhonchi, No wheeze, No rales Cardiovascular: Regular rate, Regular Rhythm, Normal S1, Normal S2, No murmurs Abdomen: Soft, Non Tender, Non-Distended, No Hepato-splenomegaly Extremities: No edema, Capillary Refill Less than 3 Seconds Skin: No rashes, No breakdown Musculoskeletal: Tenderness palpation of the left hip, left leg externally rotated and shortened Neurological: No focal neurological deficits, Motor Exam 5/5 strength throughout other than left lower extremity, Sensory exam intact to light touch and pain Psych/Mental Status: Normal Affect, Appropriate Results Lab / Micro Data 01/12/24 15:49 01/12/24 15:49 Labs: Laboratory Results - last 24 hr 01/12/24 14:53: Urine Color Yellow, Urine Clarity Clear, Urine pH 6.0, Ur Specific [place] 1.020, Urine Protein 30 H, Urine Glucose (UA) Normal, Urine Ketones 5 H, Urine Occult Blood 25 H, Urine Nitrite Negative, Urine Bilirubin 1 H, Urine Urobilinogen 1 H, Ur Leukocyte Esterase 100 H, Urine RBC 0 SEEN, Urine WBC 0-5 SEEN, Ur Squamous Epith Cells 0 SEEN, Urine Bacteria 1+, Urine Mucus 1+ 01/12/24 15:49: WBC 18.0 H, RBC 4.15 L, Hgb 12.9, Hct 40.7, MCV 98.1, MCH 31.1, MCHC 31.7 L, RDW Std Deviation 46.8 H, RDW Coeff of Jina 13.1, Plt Count 294, MPV 10.2, Immature Gran % (Auto) 0.500, Neut % (Auto) 88.1 H, Lymph % (Auto) 8.4 L, [place] % (Auto) 2.6, Eos % (Auto) 0.1, Baso % (Auto) 0.3, Absolute Neuts (auto) 15.9 H, Absolute Lymphs (auto) 1.52, Nucleated RBC % 0, Sodium 139, Potassium 4.4, Chloride 105, Carbon Dioxide 29.0, Anion Gap 5, BUN 24 H, Creatinine 1.38 H, Estim Creat Clear Calc 30.01, Est GFR (MDRD) Af Amer 47 L, Est GFR (MDRD) Non-Af 39 L, BUN/Creatinine Ratio 17.4, Glucose 168 H, Calcium 9.0 Imaging Radiology Impression Brain CT 01/12/24 14:23 IMPRESSION: Chronic involutional changes of the brain. 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 Electronically Signed: Naga Garcia MD at 15:23 EDT , Cervical Spine CT 01/12/24 14:23 IMPRESSION: Multilevel degenerative changes, as described above. Electronically Signed: Naga Garcia MD at 15:26 EDT , Chest X-Ray 01/12/24 14:55 IMPRESSION: No acute cardiopulmonary pathology Electronically Signed: Solomon Pichardo MD at 16:53 EDT Reading Location ID and State: [facility] / [place] Tel , Service support , Hip/Pelvis X-Ray 01/12/24 14:55 IMPRESSION: Comminuted left intertrochanteric fracture. Electronically Signed: Naga Garcia MD at 15:10 EDT , Lower Extremity CT 01/12/24 15:25 IMPRESSION: Acute comminuted intertrochanteric fracture of the left femur. Electronically Signed: Jimi Rubin MD at 16:48 EDT , Assessment & Plan Assessment/Plan (1) Fracture, intertrochanteric, left femur: PLAN: Plan 1. Left intertrochanteric femur fracture secondary to mechanical fall ? She did have a vitamin D checked in 2022 that was normal ? Will consult orthopedic surgery for repair, likely tomorrow ? PT/OT ? She would like to go to [facility] for SNF placement if necessary ? Continue with pain medication ? N.p.o. after midnight 2. Essential HTN ? Blood pressures are currently stable ? Can resume her home lisinopril and Norvasc ? We will monitor make adjustments as necessary 3. Anxiety/depression/dementia ? Stable ? Can resume all of her home medications DVT: SCDs Charges/Coding Visit Charges Inpatient E&M: 13886 Init Hosp L2
--- NOTE | 2024-01-12 21:00 | RAD_ITS ---
STUDY: X-RAY - LEFT FEMUR REASON FOR STUDY: Female, 83 years old. FRACTURE TECHNIQUE: 4 view(s) of the femur. COMPARISON: None. FINDINGS: Acute impacted intertrochanteric fracture with overlapping of fracture fragments and varus angulation of fracture fragments.. . RAD/Femur Min 2 Views IMPRESSION: Acute intertrochanteric fracture of the left hip. Otherwise normal femur Electronically Signed: Solomon Pichardo MD at 21:53 EDT ,
[2024-01-12 22:16] VITALS: BP 103/53; PULSE 84; RESP 18; TEMP 37.1; O2SAT 97
[2024-01-12] MEDS: Oxybutynin 5 MG Tablet PO (22:21)
[2024-01-12] MEDS: Memantine Hydrochloride 10 MG Tablet PO (22:21)
[2024-01-12] MEDS: cycloBENZAPRine HCl 5 MG TABLET PO (22:22)
[2024-01-12] MEDS: Divalproex Sodium 125 MG SPRINKLE PO (22:23)
[2024-01-12] MEDS: MELATONIN 10 MG TABLET PO (22:23)
[2024-01-12 23:28] VITALS: O2SAT 97
[2024-01-13] VITALS (10 sets, daily range): BP systolic 103–126; BP diastolic 36–62; PULSE 72–88; RESP 12–18; TEMP 36.2–36.8; O2SAT 93–99
[2024-01-13] MEDS: 0.9% Saline Lock 10 ML Syringe IV ×2 (06:31→10:26)
[2024-01-13] MEDS: Morphine 2 MG/ML Syringe IV ×3 (06:31→23:17)
[2024-01-13 06:39] LABS: Absolute Lymphocyte Count 1.86 X10^3/uL (0.83-4.51); Absolute Neutrophil Count 10.9 X10^3/uL (2.0-7.7); Basophil# 0.05 X10^3/uL; Basophil% 0.4 % (0-1); Hematocrit 34.1 % (37-47); Hemoglobin 10.8 g/dL (12.0-15.0); Lymphocyte # 1.86 X10^3/ul (0.83-4.51); Lymphocyte % 13.3 % (19-41); Mean Corp Hgb Conc 31.7 g/dL (32-36); Mean Corpuscular Hgb 31.2 pg (27.0-32.0); Mean Corpuscular Volume 98.6 fL (81-99); Mean Platelet Vol. 10.3 fl (6.2-12.0); Monocyte# 1.12 X10^3/uL; NRBC Flagged by Analyzer 0 % (0-5); Neutrophil # 10.89 X10^3/uL (2.7-7.7); Neutrophil % 77.8 % (47-70); Platelet Count 270 K/mm3 (150-450); RBC Distribution Width CV 13.5 % (11.6-14.6); RBC Distribution Width SD 48.6 fl (35.1-43.9); Red Blood Count 3.46 M/mm3 (4.2-5.4)
[2024-01-13 07:06] LABS: Anion Gap 6 (5-15); BUN 36 mg/dL (7-18); BUN/Creat Ratio 13.8 RATIO (10-20); Calcium,Total 9.3 mg/dL (8.5-10.1); Chloride 106 mmol/L (98-107); Creatinine, Serum 2.61 mg/dL (0.55-1.02); EST Glomerular Filtration Rate 19 mL/min (>60); Est Glom Filt Rate - Afr Amer 23 mL/min (>60); Estimated Creatinine Clearance 15.54 ml/min; Glucose 178 mg/dL (74-106); Potassium 5.2 mmol/L (3.5-5.1); Sodium Level 139 mmol/L (136-145)
--- NOTE | 2024-01-13 10:25 | CASEMGMT ---
RN?CM?MEDICAL RECORDS CODER?CM?to room to meet with patient for initial transition planning/care coordination?assessment. ?RN?CM?introduced self and role at [facility].? Juli, Reji, @ bedside and states pt's daughter, Svetlana, is pt's legal guardian. Copy of paperwork is on pt's paperchart. Reji lives w/pt and provided the home set-up info. RN CM placed call to Svetlana and the remainder of the info obtained from her. Care providers, pharmacy, and demographics verified/updated at this time. PCP: Dr Yoav Beard Specialists: Dr Kay-gerontology, Dr Graham-oncology Preferred Pharmacy: [facility] Insurance: [facility][NOTE 3] Prescription Benefit:?yes LNOK: Daughter/legal guardian, Svetlana Mejia Living Arrangements: Reji Bustos, his , and their 1 yr-old live w/pt in an one-story home w/4 steps to enter. Reji's (pt's dtr-in-law supervises her showers, does med mgnt, groceries/cooking, and other home mgnt tasks. Svetlana lives about 1/4 mile away and is very involved w/pt. Transportation: Svetlana and other family available DME: ?Has the following DME: shower chair, walker, medical alert, lift chair, grab bars? HHC/SNF: Pt has been to [facility] in the past and has had HHC. Discussed discharge planning. Svetlana states pt was very pleased w/[facility] when she was there and Svetlana states he has spoke w/pt about her wishes and she would like to go to [facility] @ discharge. Offered list of other SNF options but she declines unless [facility] unable to accept her. Iliana, MS3 SW, made aware. PLAN:??SNF Clary BSN?RN?CM
[2024-01-13] MEDS: Lactated Ringers 1,000 ML 15 ML IV (13:31)
--- NOTE | 2024-01-13 13:43 | CON.PCM_ITS ---
Assessment & Plan Assessment/Plan (1) Fracture, intertrochanteric, left femur: (2) Osteoporosis: QUALIFIERS: Osteoporosis type: other Presence of current pathological fracture: without current pathological fracture Qualified Code(s): M81.8 - Other osteoporosis without current pathological fracture (3) Invasive ductal carcinoma of left breast, stage 2: PLAN: Patient has history of metastatic cancer based on active malignancy will need appropriate anticoagulation postoperatively. (4) Atrial fibrillation: PLAN: I was able to confirm the patient is not currently on any anticoagulation when discussing medications with her daughter. PLAN: Plan Natural history of the disease process and treatment options were discussed the patient and her daughter who is at bedside. Treatment options including nonoperative intervention was discussed however this was not recommended as daughter confirmed patient does not in hospice or palliative care. based on patient's metastatic breast cancer history I did explain that we reviewed CT scan of the fracture site and films of the entire femur showing no significant evidence of active metastatic lesion in the left femur. Based on this I recommended proceeding with a long cephalomedullary nail. Risks and benefits of the procedure were discussed with the patient more specifically with her daughter at bedside which include but were not limited to blood loss, DVTs, PEs, nervous damage, fashion, the risk of anesthesia including loss of life. Nonunion, malunion and hardware failure and cut out. Patient and her family demonstrate understanding wish to proceed. Consent has been signed. Antibiot ics ordered on-call to the operating room. Patient is currently NPO. Will proceed with surgery this afternoon. HPI Consult Data Date of Consult: 01/13/24 HPI Narrative Reason for Consultation: Left hip pain HPI Narrative: BUDDY BRADSHAW, is a 83 F with history of metastatic breast cancer and atrial fibrillation who presents left hip pain. Patient was standing in front of her chair yesterday when she lost her balance and fell. She was seen and evaluated in the emergency department. Her daughter is at bedside. She does have metastatic breast cancer which she has historically affected the right side. She has no history of left femur metastatic disease. Patient is a poor historian with minimal communication while I am in the room. Her daughter provides most of the history. Patient does live at home and uses a walker for ambulation. She had no antecedent pain in the left hip. Denies any associated numbness and tingling at this time. Pain is located in the left hip and thigh. Patient also has a history significant for atrial fibrillation in the past however she is not currently on any anticoagulation medications. [facility] Medical History (Updated 01/13/24 @ 13:[address] David Morgan MD) Anxiety Atrial fibrillation Chronic kidney disease Dementia Depression Hx of breast cancer Hypertension Skin cancer TIA (transient ischemic attack) Home Medications lisinopril 40 mg tablet (Zestril) 20 mg PO DAILY 12/30/16 [History Last Taken Unknown] olanzapine 5 mg tablet 5 mg PO DAILY 08/05/22 [History Last Taken Unknown] oxybutynin chloride 5 mg tablet 5 mg PO BID 08/05/22 [History Last Taken Unknow n] amlodipine 5 mg tablet 5 mg PO DAILY 01/12/24 [History Last Taken Unknown] citalopram 40 mg tablet 40 mg PO DAILY 01/12/24 [History Last Taken Unknown] cyclobenzaprine 5 mg tablet 5 mg PO QHS 01/12/24 [History Last Taken Unknown] divalproex 125 mg capsule,delayed release sprinkle 125 mg PO BID 01/12/24 [History Last Taken Unknown] galantamine 24 mg 24 hr capsule,extended release 24 mg PO DAILY 01/12/24 [History Last Taken Unknown] lisinopril 20 mg tablet 20 mg PO DAILY 01/12/24 [History Last Taken Unknown] melatonin 10 mg capsule 10 mg PO QHS 01/12/24 [History Last Taken Unknown] memantine 10 mg tablet 10 mg PO BID 01/12/24 [History Last Taken Unknown] Allergy/AdvReac Type Severity Reaction Status Date / Time acetaminophen AdvReac Severe hallucinati Verified 01/12/24 14:01 [From Darvocet-N] ons azithromycin [From Zithromax] AdvReac Severe swell/tingl Verified 01/12/24 14:01 e meperidine [From Demerol] AdvReac Severe numbness/vo Verified 01/12/24 14:01 miting oxytetracycline AdvReac Severe swell,tingl Verified 01/12/24 14:01 [From Terramycin] e Penicillins [PCN] AdvReac Severe swell,tingl Verified 01/12/24 14:01 e propoxyphene AdvReac Severe hallucinati Verified 01/12/24 14:01 [From Darvocet-N] ons Sulfa (Sulfonamide AdvReac Severe welts Verified 01/12/24 14:01 Antibiotics) Family History Father Hypertension Mother Alzheimer disease Diabetes Hypertension Surgical History History of appendectomy History of hysterectomy Hx of cholecystectomy Hx of tonsillectomy Social History Smoking Status: Former smoker ROS ROS Narrative Review of systems limited secondary to patient's mental status. Physical Exam Const Constitutional Narrative: Awake HEENT normocephalic Eyes PERRL Neck No nuchal rigidity Resp normal respiratory effort Cardio Cardio Narrative: Regular pulse rate GI GI Narrative: Nondistended Extremity Extremity Narrative: Left lower extremity: Skin clean, dry, and intact. Limb is shortened and externally rotated Motor is intact dorsiflexion, EHL and plantar flexion. Sensation is intact to light touch saphenous, ingrid,l superficial peroneal, deep peroneal and tibial distributions. Calves are soft and supple. Skin no wounds Neuro Neuro Narrative: Alert, minimally responsive to questioning. Medical Records Data Attestation: I reviewed the patient's medical records Lab / Micro Data Attestation: I reviewed the patient's lab results. 01/13/24 06:10 01/13/24 06:10 Labs: Laboratory Results - last 24 hr 01/12/24 14:53: Urine Color Yellow, Urine Clarity Clear, Urine pH 6.0, Ur Specific [place] 1.020, Urine Protein 30 H, Urine Glucose (UA) Normal, Urine Ketones 5 H, Urine Occult Blood 25 H, Urine Nitrite Negative, Urine Bilirubin 1 H, Urine Urobilinogen 1 H, Ur Leukocyte Esterase 100 H, Urine RBC 0 SEEN, Urine WBC 0-5 SEEN, Ur Squamous Epith Cells 0 SEEN, Urine Bacteria 1+, Urine Mucus 1+ 01/12/24 15:49: WBC 18.0 H, RBC 4.15 L, Hgb 12.9, Hct 40.7, MCV 98.1, MCH 31.1, MCHC 31.7 L, RDW Std Deviation 46.8 H, RDW Coeff of Jina 13.1, Plt Count 294, MPV 10.2, Immature Gran % (Auto) 0.500, Neut % (Auto) 88.1 H, Lymph % (Auto) 8.4 L, [place] % (Auto) 2.6, Eos % (Auto) 0.1, Baso % (Auto) 0.3, Absolute Neuts (auto) 15.9 H, Absolute Lymphs (auto) 1.52, Nucleated RBC % 0, Sodium 139, Potassium 4.4, Chloride 105, Carbon Dioxide 29.0, Anion Gap 5, BUN 24 H, Creatinine 1.38 H , Estim Creat Clear Calc 30.01, Est GFR (MDRD) Af Amer 47 L, Est GFR (MDRD) Non- Af 39 L, BUN/Creatinine Ratio 17.4, Glucose 168 H, Calcium 9.0 01/13/24 06:10: WBC 14.0 H, RBC 3.46 L, Hgb 10.8 L, Hct 34.1 L, MCV 98.6, MCH 31.2, MCHC 31.7 L, RDW Std Deviation 48.6 H, RDW Coeff of Jina 13.5, Plt Count 270, MPV 10.3, Immature Gran % (Auto) 0.500, Neut % (Auto) 77.8 H, Lymph % (Auto) 13.3 L, [place] % (Auto) 8.0, Eos % (Auto) 0.0, Baso % (Auto) 0.4, Absolute Neuts (auto) 10.9 H, Absolute Lymphs (auto) 1.86, Nucleated RBC % 0, Sodium 139, Potassium 5.2 H, Chloride 106, Carbon Dioxide 27.0, Anion Gap 6, BUN 36 H, Crea tinine 2.61 H, Estim Creat Clear Calc 15.54, Est GFR (MDRD) Af Amer 23 L, Est GFR (MDRD) Non-Af 19 L, BUN/Creatinine Ratio 13.8, Glucose 178 H, Calcium 9.3, Blood Type B POSITIVE, Antibody Screen NEGATIVE Imaging Radiology Impression Brain CT 01/12/24 14:23 IMPRESSION: Chronic involutional changes of the brain. 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 Electronically Signed: Naga Garcia MD at 15:23 EDT , Cervical Spine CT 01/12/24 14:23 IMPRESSION: Multilevel degenerative changes, as described above. Electronically Signed: Naga Garcia MD at 15:26 EDT , Chest X-Ray 01/12/24 14:55 IMPRESSION: No acute cardiopulmonary pathology Electronically Signed: Solomon Pichardo MD at 16:53 EDT , Hip/Pelvis X-Ray 01/12/24 14:55 IMPRESSION: Comminuted left intertrochanteric fracture. Electronically Signed: Naga Garcia MD at 15:10 EDT , Lower Extremity CT 01/12/24 15:25 IMPRESSION: Acute comminuted intertrochanteric fracture of the left femur. Electronically Signed: Jimi Rubin MD at 16:48 EDT , Femur X-Ray 01/12/24 21:00 IMPRESSION: Acute intertrochanteric fracture of the left hip. Otherwise normal femur Electronically Signed: Solomon Pichardo MD at 21:53 EDT ,
--- NOTE | 2024-01-13 15:27 | CASEMGMT ---
Social Work Pt has a legal Guardian kayden Celestin. Guardianship papers are on the chart. MICHELA Espinal
--- NOTE | 2024-01-13 15:50 | CASEMGMT ---
Social Work This worker telephoned pt daughter to discuss DC plans. Family indicated [facility] is facility of choice. This worker updated dtr that [facility] is out of network with pt insurance. Dtr asked what options are for OON care at [place] as patient has been there before and the family would really like her to go there. Daughter stated she has call out to [facility]' s facilities administrator. [facility] asking what their OON benefits are with pt insurance. SW will follow up with dtr with response and options for SNF that are in network. Marisol Sánchez PLUMBER HELPER
--- NOTE | 2024-01-13 16:05 | RAD_ITS ---
HISTORY: IM rodding COMPARISON: January 12, 2024 femur radiograph TECHNIQUE: A total of 9 fluoroscopic images were saved without a radiologist present. FINDINGS: Images demonstrate placement of femoral antegrade Intramedullary noel fixation. Total fluoroscopy time: 121.7 seconds Cumulative air kerma: 29.05 mGy RAD/HIP, UNI W/ Pelvis 2-3 Views IMPRESSION: Fluoroscopic assistance for femoral internal fixation. Please see operative report for additional information. Electronically Signed: Arjun Cade MD at 23:33 EDT ,
[2024-01-13] MEDS: Cefazolin 1 GM/50 ML BAG IV (16:11)
--- NOTE | 2024-01-13 16:31 | NURSING ---
All documentation by nursing home aide, Remy Pedraza, reviewed by nursing home director, Elle SOLO, RN.
--- NOTE | 2024-01-13 17:28 | PN.HOSP_ITS ---
Reason for Visit Reason for Visit: Diagnoses Malignant neoplasm of unspecified site of left female breast (01/12/24) Unspecified atrial fibrillation (01/12/24) Other osteoporosis without current pathological fracture (01/12/24) Displaced intertrochanteric fracture of left femur, initial encounter for closed fracture (01/12/24) Subjective Subjective Patient was seen and examined today, she underwent ORIF of her left intertrochanteric fracture this afternoon. On my examination's morning, patient was alert and did not appear to be in any distress. Patient does have a history of dementia. Objective Data Objective Data Vital Signs: Vital Signs Temp Pulse Resp BP Pulse Ox O2 Del Method O2 Flow Rate 98 F 88 12 121/49 H 98 Nasal Cannula 2 01/13/24 09:43 01/13/24 09:43 01/13/24 09:43 01/13/24 09:43 01/13/24 09:43 01/13/24 10:41 01/13/24 10:41 Oxygen Flow Rate (L/min) 2 Oxygen Delivery Method Nasal Cannula Weight: 75.568 kg Body Mass Index (BMI) 30.4 Intake & Output: Intake and Output for Last 24 Hours 01/11/24 01/12/24 01/13/24 23:59 23:59 23:59 Intake Total 0 / 0 50 / 50 Output Total 220 / 220 Balance -220 / -220 50 / 50 Lab / Micro Data 01/13/24 06:10 01/13/24 06:10 Labs: Laboratory Results - last 24 hr 01/13/24 06:10: WBC 14.0 H, RBC 3.46 L, Hgb 10.8 L, Hct 34.1 L, MCV 98.6, MCH 31.2, MCHC 31.7 L, RDW Std Deviation 48.6 H, RDW Coeff of Jina 13.5, Plt Count 270, MPV 10.3, Immature Gran % (Auto) 0.500, Neut % (Auto) 77.8 H, Lymph % (Auto) 13.3 L, [place] % (Auto) 8.0, Eos % (Auto) 0.0, Baso % (Auto) 0.4, Absolute Neuts (auto) 10.9 H, Absolute Lymphs (auto) 1.86, Nucleated RBC % 0, Sodium 139, Potassium 5.2 H, Chloride 106, Carbon Dioxide 27.0, Anion Gap 6, BUN 36 H, Creatinine 2.61 H, Estim Creat Clear Calc 15.54, Est GFR (MDRD) Af Amer 23 L, Est GFR (MDRD) Non-Af 19 L, BUN/Creatinine Ratio 13.8, Glucose 178 H, Calcium 9.3, Blood Type B POSITIVE, Antibody Screen NEGATIVE Radiography Diagnostic Testing: Radiology Impression Femur X-Ray 01/12/24 21:00 IMPRESSION: Acute intertrochanteric fracture of the left hip. Otherwise normal femur Electronically Signed: Solomon Pichardo MD at 21:53 EDT , Physical Exam Const alert and no apparent distress Constitutional Narrative: Patient appears her stated age General Appearance: cooperative, well kempt and well developed Orientation / Consciousness: awake and oriented to person HEENT normocephalic, head/scalp atraumatic and moist oral mucous membranes Eyes PERRL, EOMs intact bilaterally and conjunctivae normal Neck supple, no JVD, thyroid normal and no carotid bruits General: trachea midline Resp normal respiratory effort, no retractions, no use of accessory muscles and clear to auscultation bilaterally Auscultation: Negative for rales, rhonchi or wheezes Cardio regular rate, regular rhythm, S1 normal heart sound, S2 normal heart sound, no murmurs, no rub and no gallops GI normal to inspection, nondistended, normoactive bowel sounds, soft to palpation, non-tender and non-distended Skin no rashes or lesions noted General Skin Exam: no breakdown Neuro CN's II-XII intact bilaterally and no focal motor deficits Neuro Narrative: Patient is confused Sensorium / Orientation: awake and alert Psych Psych Narrative: Patient exhibits confusion but does answer simple questions appropriately at times Assessment & Plan Assessment/Plan (1) Fracture, intertrochanteric, left femur: PLAN: Plan 1. Left intertrochanteric fracture-again patient will undergo surgery today, she will most likely need to go to an extended care facility for rehab services, I discussed this briefly with the patient's family member who was in her room today, he states that the decision will be made by his siblings, PT and OT will need to see the patient for postop #2 essential hypertension-patient will remain on her home medications #3 dementia-patient will remain on her home medications, complicates care, management, recovery, and prognosis #4 acute anemia of blood loss as expected consequence from left intertrochanteric hip fracture-CBC will be monitored as necessary #5 acute kidney injury-patient will be given IV fluids, BMP will be monitored Total clinical time spent by myself addressing patient's medical issues, reviewing all of her data, and collaborating with patient's care team: 35 minutes Charges/Coding Visit Charges Inpatient E&M: 36150 Subs Hosp L2
--- NOTE | 2024-01-13 17:36 | OP.PCM_ITS ---
Report of Operation Date of Procedure: 01/13/24 Pre-Operative Diagnosis: Left intertrochanteric hip fracture Post-Operative Diagnosis: Left intertrochanteric hip fracture Surgery/Procedure Performed:: Left hip cephalomedullary nail Description of Surgical Findings:: Stable reduction Surgeon: David Morgan reading intervention teacher: Cely Christensen Type of Anesthesia: General Anesthesiologist: Blake Schuster Special Medications: Ancef Estimated Blood Loss (mL): 200 Fluids Replaced: 400 Description of Procedure: Components used: 1. [employer]hew InterTAN nail 36 cm x 11.5 mm nail 125 degree 2. [employer] InterTAN lag screw 90mm 3. [employer]hew 37.5 millimeter interlocking screw Procedure: On the date of the procedure the patient's left hip was marked in the preoperative area and patient was taken back to the operating room. Anesthetic was administered and patient was transferred to the table were all bony prominence identified well-padded and the ipsilateral arm was placed across the chest. Patient was then translated down to the perineal post and the operative leg was placed in the boot while the nonoperative leg was lowered and secured. The operative leg was placed in traction and internal rotation and live fluoroscopy was used to verify adequate reduction. The operative leg was then prepped in a sterile fashion with chlorhexidine while the surgeon scrubbed. Upon reentering the room the operative extremity was draped in the standard orthopedic fashion. Skin incision was marked and a timeout was called. Everyone agreed upon the side, the site, the procedure be performed, patient's identity, and antibiotics given. Skin incision was made and the position of the entry guidepin was verified using live fluoroscopy. Once we were satisfied with our position the pin was advanced in the soft tissue protector was placed over the pin. The entry reamer was then advanced into the proximal portion of the femur. A [employer] InterTAN 125 degree neck angle 11.5 mm x 36 cm hip nail was selected. The 13 mm reamer was then passed down the femoral canal. The nail was then attached to the cleaning laborer and inserted into the intramedullary canal. The appropriate depth was verified and the skin incision for the lag screw was made. The lag screw guidepin was then placed under live fluoroscopy and when a satisfactory position was obtained the length of the screw was measured and the standard technique to drill for the lag screws was performed. The anti-rotation bar was used. At this time a 90 lag screw was selected with its corresponding compression screw. The lag screw was then passed and traction was left off the leg. The compression screw was then passed and the fracture was compressed. The final position of the lag screw was verified under fluoroscopy. Attention was then turned to the distal portion of the nail and a perfect [place] technique was used to locate the distal interlocking screw and a 37.5mm distal interlocking screw was placed using this technique. Live fluoroscopy was used to verify the position of the interlocking screw and the final position of the hip components. Once we were satisfied with our positioning the wounds were copiously irrigated out with normal saline skin was closed with 2-0 Vicryl and erik for final skin closure. A sterile dressing was placed with Xeroform. Patient was then awakened by anesthesia transferred from the fracture table back to their hospital bed and transferred to the PACU for recovery. Postoperative plan: Patient will be weight-bear as tolerated. 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 twice daily for 2 weeks for DVT prophylaxis with knee-high stockings. Follow up in the office in 2 weeks. Complications none Admit VTE Documentation VTE Present on Admission: No VTE Mechan Device Prophylaxis: SCD's and Thigh High LEONARD Hose VTE Pharm Prophylaxis ordered?: Yes
--- NOTE | 2024-01-13 17:46 | RAD_ITS ---
INDICATION: Post Op -- AP both hips on single guille/lateral of op hip PACU EXAMINATION/TECHNIQUE: X-RAY - XR Hip Unilateral with Pelvis when performed; 2-3 Views COMPARISON: January 12 and January 12 2024 FINDINGS: PELVIC BONES: No displaced fracture, destructive or sclerotic lesions. Note that overlapping bowel shadows may however obscure fine detail. Right greater than left sacroiliac joint degenerative change. No widening of the pubic symphysis. HIPS: Left femoral internal fixation with antegrade intermedullary femoral noel and interlocking femoral neck screws. No evidence of hardware failure. Normal right hip alignment with mild superior acetabular osteophyte formation. . SOFT TISSUES: Lateral left hip postsurgical soft tissue emphysema and erik. Lateral mid and lower leg skin erik. RAD/Hip Min 2 Views (Portable) IMPRESSION: Left intratrochanteric femur fracture internal fixation with improved alignment Electronically Signed: Arjun Cade MD at 18:59 EDT ,
[2024-01-13] MEDS: Lactated Ringers 1,000 ML 100 ML IV (18:55)
[2024-01-14] MEDS: Cefazolin 1 GM/50 ML BAG IV ×2 (01:22→08:37)
[2024-01-14 04:19] VITALS: BP 116/59; PULSE 76; RESP 18; TEMP 36.9; O2SAT 98
[2024-01-14] MEDS: Furosemide 40 MG/4 ML Vial IV (04:47)
[2024-01-14] MEDS: Morphine 2 MG/ML Syringe IV (04:56)
[2024-01-14] MEDS: Rivaroxaban 10 MG Tablet PO (05:00)
[2024-01-14] MEDS: Lactated Ringers 1,000 ML 100 ML IV (05:05)
[2024-01-14 06:30] VITALS: BP 112/55; PULSE 86; RESP 18; TEMP 36.9; O2SAT 93
[2024-01-14 08:12] VITALS: O2SAT 96
[2024-01-14 08:22] LABS: Absolute Lymphocyte Count 1.45 X10^3/uL (0.83-4.51); Absolute Neutrophil Count 15.1 X10^3/uL (2.0-7.7); Basophil# 0.04 X10^3/uL; Basophil% 0.2 % (0-1); Eosinophil# 0.08 X10^3/uL; Eosinophils% 0.4 % (0-5); Hematocrit 27.9 % (37-47); Hemoglobin 8.6 g/dL (12.0-15.0); Lymphocyte # 1.45 X10^3/ul (0.83-4.51); Mean Corp Hgb Conc 30.8 g/dL (32-36); Mean Corpuscular Volume 100.7 fL (81-99); Mean Platelet Vol. 10.7 fl (6.2-12.0); Monocyte# 1.38 X10^3/uL; Monocyte% 7.6 % (0-10); NRBC Flagged by Analyzer 0 % (0-5); Neutrophil % 83.2 % (47-70); Platelet Count 197 K/mm3 (150-450); RBC Distribution Width CV 13.5 % (11.6-14.6); RBC Distribution Width SD 50.4 fl (35.1-43.9); Red Blood Count 2.77 M/mm3 (4.2-5.4); White Blood Count 18.2 K/mm3 (4.4-11.0)
[2024-01-14 08:25] VITALS: BP 113/53; PULSE 81; RESP 18; TEMP 37.1; O2SAT 95
--- NOTE | 2024-01-14 08:43 | CASEMGMT ---
Social Work [facility] replied to inquiry re: OON benefits: We do not accept MMO even if they have OON benefits because they do not pay. Unfortunately, if they want to come here it would have to be private pay for room and board and therapy costs. At the moment I don't have anything to offer until next week sometime. SW will relay this information to Pt family. Marisol ABERNATHY
[2024-01-14 09:01] LABS: Anion Gap 5 (5-15); BUN 54 mg/dL (7-18); BUN/Creat Ratio 12.6 RATIO (10-20); Calcium,Total 8.5 mg/dL (8.5-10.1); Chloride 107 mmol/L (98-107); EST Glomerular Filtration Rate 10 mL/min (>60); Est Glom Filt Rate - Afr Amer 13 mL/min (>60); Estimated Creatinine Clearance 9.43 ml/min; Glucose 157 mg/dL (74-106); Potassium 5.6 mmol/L (3.5-5.1); Sodium Level 140 mmol/L (136-145)
--- NOTE | 2024-01-14 09:29 | CASEMGMT ---
Social Work SW spoke w/pt's daughter Kathie Mejia in regard to discharge plan. SW did explain that [place] does not take MMO at all, so if pt went there it would be private pay. We spoke about options, as daughter does think pt may need long-term placement. SW educated daughter that we can still try to get a precert for a facility in network for rehab, so at least the rehab stay is covered by insurance. If pt were to need longer than the time covered by insurance, then they can look at going somewhere long-term after that. Daughter would prefer for pt to go somewhere skilled initially. She is coming in later this afternoon, agreeable to have shelter list emailed to her and will let SW know choices. SW did email the list of assisted facilities from [facility] to daughter, complete w/quality and resource use data, of facilities in network w/pt's insurance and preferred geographic area. SW will send referrals once daughter indicates where she would like them sent. SW will continue to follow. SUSHANT Kimbrough
--- NOTE | 2024-01-14 12:12 | CASEMGMT ---
Social Work This worker sent referral information to [facility] and [facility] per family request via [facility]. Marisol ABERNATHY
[2024-01-14] MEDS: amLODIPine 5 MG Tablet PO (12:13)
[2024-01-14] MEDS: Lisinopril 20 MG Tablet PO (12:13)
[2024-01-14] MEDS: OLANZapine 5 MG/TAB TAB.RAPDIS PO (12:13)
[2024-01-14] MEDS: Galantamine Hydrobromide 4 MG Tablet 12 MG PO ×2 (12:14→20:12)
[2024-01-14] MEDS: Memantine Hydrochloride 10 MG Tablet PO ×2 (12:15→20:13)
[2024-01-14] MEDS: Citalopram 40 MG TABLET PO (12:15)
[2024-01-14] MEDS: Oxybutynin 5 MG Tablet PO ×2 (12:15→20:14)
--- NOTE | 2024-01-14 13:00 | CASEMGMT ---
Social Work Daughter did let SW know the following choices for SNF: 1. [facility] 2. [facility] 3. [facility] is full, Marisol did send referrals to [facility] and [facility]. SUSHANT Kimbrough
--- NOTE | 2024-01-14 13:43 | PN.ORTHO_ITS ---
Subjective Subjective Patient is s/p left cephalomedullary nail with Dr. Morgan on 01/13/2024. Patient resting comfortably in bed. Unable to assess pain. Patient is drowsy today also dementia plays a part in obtaining HPI today. Does not respond to questioning. Her eyes are weak and acknowledges and attempts to communicate back. Tylenol as needed and ice help to relieve pain. Patient has been up with therapy. Walking with the assit of a walker. She is weightbearing as tolerated. Afebrile, no chest pain, shortness of breath, negative calf pain/ erythema, and no other signs of DVT. Objective Data Objective Data Vital Signs: Vital Signs Temp Pulse Resp BP Pulse Ox O2 Del Method O2 Flow Rate 98.8 F 81 18 113/53 L 95 Nasal Cannula 3 01/14/24 08:25 01/14/24 08:25 01/14/24 08:25 01/14/24 08:25 01/14/24 08:25 01/14/24 08:25 01/14/24 11:12 Oxygen Flow Rate (L/min) 3 Oxygen Delivery Method Nasal Cannula Weight: 75.568 kg Body Mass Index (BMI) 30.4 Intake & Output: Intake and Output for Last 24 Hours 01/12/24 01/13/24 01/14/24 23:59 23:59 23:59 Intake Total 0 / 0 147.25 / 147.25 1455 / 1455 Output Total 220 / 220 0 / 0 175 / 175 Balance -220 / -220 147.25 / 147.25 1280 / 1280 Lab / Micro Data 01/14/24 08:05 01/14/24 08:05 Labs: Laboratory Results - last 24 hr 01/14/24 08:05: WBC 18.2 H, RBC 2.77 L, Hgb 8.6 L, Hct 27.9 L, MCV 100.7 H, MCH 31.0, MCHC 30.8 L, RDW Std Deviation 50.4 H, RDW Coeff of Jina 13.5, Plt Count 197, MPV 10.7, Immature Gran % (Auto) 0.600, Neut % (Auto) 83.2 H, Lymph % (Auto) 8.0 L, [place] % (Auto) 7.6, Eos % (Auto) 0.4, Baso % (Auto) 0.2, Absolute Neuts (auto) 15.1 H, Absolute Lymphs (auto) 1.45, Nucleated RBC % 0, Sodium 140, Potassium 5.6 H, Chloride 107, Carbon Dioxide 28.0, Anion Gap 5, BUN 54 H, Creatinine 4.30 H, Estim Creat Clear Calc 9.43, Est GFR (MDRD) Af Amer 13 L, Est GFR (MDRD) Non-Af 10 L, BUN/Creatinine Ratio 12.6, Glucose 157 H, Calcium 8.5 Micro: Microbiology 01/12/24 15:33 Urine Catheter - Sal Urine Culture - Preliminary Coag Negative Staph Coag Negative Staph#2 Radiography Diagnostic Testing: Radiology Impression Hip/Pelvis X-Ray 01/13/24 16:05 IMPRESSION: Fluoroscopic assistance for femoral internal fixation. Please see operative report for additional information. Electronically Signed: Arjun Cade MD at 23:33 EDT , Hip X-Ray 01/13/24 17:46 IMPRESSION: Left intratrochanteric femur fracture internal fixation with improved alignment Electronically Signed: Arjun Cade MD at 18:59 EDT , Physical Exam Const Constitutional Narrative: Patient resting comfortably in bed Drowsy attempts to communicate but does not respond appropriately to all of my questions. Unable to assess pain level. she does state that sensation is intact. To left lower extremity upon palpation DP/PT pulses bounding. Wiggles all toes to command Dorsi and plantarflexion full strength Dressing clear dry intact Calf nontender to palpation, no erythema, no edema. Negative Homans Assessment & Plan Assessment/Plan (1) Fracture, intertrochanteric, left femur: PLAN: Patient is postop day 1 status post left cephalomedullary nailing after sustaining intertrochanteric fracture. 1. Will continue PT today. Weightbearing as tolerated 2. Ultimate discharge planning per primary. 3. Patient is stable from an orthopedic standpoint. 4. H/H 8.6/27.9: post operavtive anemia secondary to acute blood loss intraoperatively. Patient is asymptomatic at this time. Defer to primary for management and/or transfusions as necessary. 5. DVT prophylaxis : Xarelto 10 mg once daily x 2 weeks followed by aspirin 81 mg twice daily x 2 weeks due to active malignancy. 6. Pain control: patient instructed to take tylenol 500mg 2 tablets TID for pain control 7. ok to remove post op dressing. post op day 5 8. Remainder of management per primary 9. Patient will need a follow-up appointment in 2 weeks in outpatient clinic with [facility] orthopedics. This will need to be arranged. 10. Orthopedics will sign off.
[2024-01-14 14:30] VITALS: BP 112/46; PULSE 81; RESP 20; TEMP 36.5; O2SAT 93
[2024-01-14] MEDS: 0.9% Normal Saline (1000mL) 1,000 ML 75 ML IV (15:30)
--- NOTE | 2024-01-14 15:45 | RAD_ITS ---
EXAM: XR CHEST, 1 VIEW CLINICAL INDICATION: Pulmonary edema TECHNIQUE: Frontal view of the chest. COMPARISON: XR Chest dated 01/12/2024 FINDINGS: LUNGS AND PLEURAL SPACES: Shallow inspiration. Mild bibasilar atelectasis. HEART: Normal heart size. MEDIASTINUM: No mediastinal or hilar mass. BONES/JOINTS: No acute abnormality. UPPER ABDOMEN: Findings gaseous distention of the splenic flexure of the colon. RAD/Chest 1 View (Portable) IMPRESSION: Mild bibasilar atelectasis. Electronically Signed: Jimi Rubin MD at 16:14 EDT ,
--- NOTE | 2024-01-14 16:06 | CASEMGMT ---
Addendum entered by Marisol Sánchez 01/14/24 16:19: SW updated daughter on [facility] accepting patient. Marisol ABERNATHY Original Note: Social Work [facility] replied and they are able to accept pt. and will start precert for admission. [facility] replied with a pending authorization number. Marisol ABERNATHY
[2024-01-14] MEDS: Ensure Surgery 237 ML LIQUID PO (16:52)
--- NOTE | 2024-01-14 17:10 | PCM.PN.HOSP ---
Reason for Visit Reason for Visit: Diagnoses Malignant neoplasm of unspecified site of left female breast (01/12/24) Unspecified atrial fibrillation (01/12/24) Other osteoporosis without current pathological fracture (01/12/24) Displaced intertrochanteric fracture of left femur, initial encounter for closed fracture (01/12/24) Subjective Subjective Patient was seen and examined today, there is an episode today where physical therapy set the patient up in bed and she had a glazed look on her eyes, she was laid back in a prone position at that point, assessment shows that she is drowsy with pinpoint pupils, she does answer some questions however. Patient may have been vasovagal when she was set up, she had also received some morphine from last night. I have elected to stop her morphine at this time. Objective Data Objective Data Vital Signs: Vital Signs Temp Pulse Resp BP Pulse Ox O2 Del Method O2 Flow Rate 97.7 F L 81 20 H 112/46 L 93 Nasal Cannula 3 01/14/24 14:30 01/14/24 14:30 01/14/24 14:30 01/14/24 14:30 01/14/24 14:30 01/14/24 15:55 01/14/24 15:55 Oxygen Flow Rate (L/min) 3 Oxygen Delivery Method Nasal Cannula Weight: 75.568 kg Body Mass Index (BMI) 30.4 Intake & Output: Intake and Output for Last 24 Hours 01/12/24 01/13/24 01/14/24 23:59 23:59 23:59 Intake Total 0 / 0 147.25 / 147.25 2100 / 2100 Output Total 220 / 220 0 / 0 300 / 300 Balance -220 / -220 147.25 / 147.25 1800 / 1800 Lab / Micro Data 01/14/24 08:05 01/14/24 08:05 Labs: Laboratory Results - last 24 hr 01/14/24 08:05: WBC 18.2 H, RBC 2.77 L, Hgb 8.6 L, Hct 27.9 L, MCV 100.7 H, MCH 31.0, MCHC 30.8 L, RDW Std Deviation 50.4 H, RDW Coeff of Jina 13.5, Plt Count 197, MPV 10.7, Immature Gran % (Auto) 0.600, Neut % (Auto) 83.2 H, Lymph % (Auto) 8.0 L, [place] % (Auto) 7.6, Eos % (Auto) 0.4, Baso % (Auto) 0.2, Absolute Neuts (auto) 15.1 H, Absolute Lymphs (auto) 1.45, Nucleated RBC % 0, Sodium 140, Potassium 5.6 H, Chloride 107, Carbon Dioxide 28.0, Anion Gap 5, BUN 54 H, Creatinine 4.30 H, Estim Creat Clear Calc 9.43, Est GFR (MDRD) Af Amer 13 L, Est GFR (MDRD) Non-Af 10 L, BUN/Creatinine Ratio 12.6, Glucose 157 H, Calcium 8.5 Micro: Microbiology 01/12/24 15:33 Urine Catheter - Sal Urine Culture - Preliminary Coag Negative Staph Coag Negative Staph#2 Radiography Diagnostic Testing: Radiology Impression Hip/Pelvis X-Ray 01/13/24 16:05 IMPRESSION: Fluoroscopic assistance for femoral internal fixation. Please see operative report for additional information. Electronically Signed: Arjun Cade MD at 23:33 EDT , Hip X-Ray 01/13/24 17:46 IMPRESSION: Left intratrochanteric femur fracture internal fixation with improved alignment Electronically Signed: Arjun Cade MD at 18:59 EDT , Chest X-Ray 01/14/24 15:45 IMPRESSION: Mild bibasilar atelectasis. Electronically Signed: Jimi Rubin MD at 16:14 EDT , Physical Exam Narrative alert and no apparent distress Constitutional Narrative: Patient appears her stated age General Appearance: cooperative, well kempt and well developed Orientation / Consciousness: awake and oriented to person HEENT normocephalic, head/scalp atraumatic and moist oral mucous membranes Eyes PERRL, EOMs intact bilaterally and conjunctivae normal Neck supple, no JVD, thyroid normal and no carotid bruits General: trachea midline Resp normal respiratory effort, no retractions, no use of accessory muscles and clear to auscultation bilaterally Auscultation: Negative for rales, rhonchi or wheezes Cardio regular rate, regular rhythm, S1 normal heart sound, S2 normal heart sound, no murmurs, no rub and no gallops GI normal to inspection, nondistended, normoactive bowel sounds, soft to palpation, non-tender and non-distended Skin no rashes or lesions noted General Skin Exam: no breakdown Neuro CN's II-XII intact bilaterally and no focal motor deficits Neuro Narrative: Patient is confused Sensorium / Orientation: awake and alert Psych Psych Narrative: Patient exhibits confusion but does answer simple questions appropriately at times Assessment & Plan Assessment/Plan (1) Fracture, intertrochanteric, left femur: PLAN: Plan 1. Left intertrochanteric fracture-postop day #1 ORIF-PT and OT work with the patient, orthopedic surgery seen the patient #2 essential hypertension-patient will remain on her home medications #3 dementia-patient will remain on her home medications, complicates care, management, recovery, and prognosis #4 acute anemia of blood loss as expected consequence from left intertrochanteric hip fracture-CBC will be monitored #5 acute kidney injury-patient will be given IV fluids, BMP will be monitored, patient's creatinine today was 4.3, she is still putting out urine however #6 acute blood loss anemia secondary to expected acute blood loss from left hip fracture-CBC will be rechecked tomorrow, patient does not need transfused at this time Total clinical time spent by myself addressing patient's medical issues, reviewing all of her data, and collaborating with patient's care team: 35 minutes Charges/Coding Visit Charges Inpatient E&M: 92090 Subs Hosp L2
[2024-01-14 20:00] VITALS: BP 113/50; PULSE 90; RESP 18; TEMP 36.7; O2SAT 96
[2024-01-14] MEDS: Divalproex Sodium 125 MG SPRINKLE PO (20:12)
[2024-01-14] MEDS: cycloBENZAPRine HCl 5 MG TABLET PO (20:13)
[2024-01-14] MEDS: MELATONIN 10 MG TABLET PO (20:14)
[2024-01-15] VITALS (9 sets, daily range): BP systolic 101–134; BP diastolic 45–76; PULSE 77–100; RESP 18–20; TEMP 36.4–37.3; O2SAT 93–98
[2024-01-15 00:15] LABS: Anion Gap 6 (5-15); BUN 69 mg/dL (7-18); Chloride 106 mmol/L (98-107); Creatinine, Serum 4.31 mg/dL (0.55-1.02); EST Glomerular Filtration Rate 10 mL/min (>60); Est Glom Filt Rate - Afr Amer 13 mL/min (>60); Estimated Creatinine Clearance 9.41 ml/min; Glucose 158 mg/dL (74-106); Potassium 5.2 mmol/L (3.5-5.1); Sodium Level 141 mmol/L (136-145)
[2024-01-15] MEDS: 0.9% Normal Saline (1000mL) 1,000 ML 75 ML IV (04:28)
[2024-01-15] MEDS: Rivaroxaban 10 MG Tablet PO (06:11)
[2024-01-15] MEDS: Ensure Surgery 237 ML LIQUID PO ×3 (09:00→17:54)
[2024-01-15] MEDS: OLANZapine 5 MG/TAB TAB.RAPDIS PO (09:01)
[2024-01-15] MEDS: Citalopram 40 MG TABLET PO (09:01)
[2024-01-15] MEDS: Galantamine Hydrobromide 4 MG Tablet 12 MG PO ×2 (09:02→21:38)
[2024-01-15] MEDS: Oxybutynin 5 MG Tablet PO ×2 (09:02→21:39)
[2024-01-15] MEDS: Memantine Hydrochloride 10 MG Tablet PO ×2 (09:02→21:39)
[2024-01-15] MEDS: Divalproex Sodium 125 MG SPRINKLE PO ×2 (09:02→21:40)
--- NOTE | 2024-01-15 11:51 | PCM.PN.HOSP ---
Reason for Visit Reason for Visit: Diagnoses Malignant neoplasm of unspecified site of left female breast (01/12/24) Unspecified atrial fibrillation (01/12/24) Other osteoporosis without current pathological fracture (01/12/24) Displaced intertrochanteric fracture of left femur, initial encounter for closed fracture (01/12/24) Subjective Subjective Patient was seen and examined today, her family members were in the room, we are currently awaiting approval for her to go to [place] rehab unit. Patient is alert and sitting in a chair at the time of my examination. Objective Data Objective Data Vital Signs: Vital Signs Temp Pulse Resp BP Pulse Ox O2 Del Method O2 Flow Rate 97.8 F 82 18 101/52 L 93 Nasal Cannula 3 01/15/24 09:05 01/15/24 09:05 01/15/24 09:05 01/15/24 09:05 01/15/24 09:05 01/15/24 09:05 01/15/24 11:01 Oxygen Flow Rate (L/min) 3 Oxygen Delivery Method Nasal Cannula Weight: 75.568 kg Body Mass Index (BMI) 30.4 Intake & Output: Intake and Output for Last 24 Hours 01/13/24 01/14/24 01/15/24 23:59 23:59 23:59 Intake Total 147.25 / 147.25 2100 / 2100 972.5 / 972.5 Output Total 0 / 0 450 / 450 200 / 200 Balance 147.25 / 147.25 1650 / 1650 772.5 / 772.5 Lab / Micro Data 01/14/24 08:05 01/14/24 23:42 Labs: Laboratory Results - last 24 hr 01/14/24 23:42: Sodium 141, Potassium 5.2 H, Chloride 106, Carbon Dioxide 29.0, Anion Gap 6, BUN 69 H, Creatinine 4.31 H, Estim Creat Clear Calc 9.41, Est GFR (MDRD) Af Amer 13 L, Est GFR (MDRD) Non-Af 10 L, BUN/Creatinine Ratio 16.0, Glucose 158 H, Calcium 8.0 L Micro: Microbiology 01/12/24 15:33 Urine Catheter - Sal Urine Culture - Final Staphylococcus warneri Radiography Diagnostic Testing: Radiology Impression Chest X-Ray 01/14/24 15:45 IMPRESSION: Mild bibasilar atelectasis. Electronically Signed: Jimi Rubin MD at 16:14 EDT , Physical Exam Narrative alert and no apparent distress Constitutional Narrative: Patient appears her stated age General Appearance: cooperative, well kempt and well developed Orientation / Consciousness: awake and oriented to person HEENT normocephalic, head/scalp atraumatic and moist oral mucous membranes Eyes PERRL, EOMs intact bilaterally and conjunctivae normal Neck supple, no JVD, thyroid normal and no carotid bruits General: trachea midline Resp normal respiratory effort, no retractions, no use of accessory muscles and clear to auscultation bilaterally Auscultation: Negative for rales, rhonchi or wheezes Cardio regular rate, regular rhythm, S1 normal heart sound, S2 normal heart sound, no murmurs, no rub and no gallops GI normal to inspection, nondistended, normoactive bowel sounds, soft to palpation, non-tender and non-distended Skin no rashes or lesions noted General Skin Exam: no breakdown Neuro CN's II-XII intact bilaterally and no focal motor deficits Neuro Narrative: Patient is confused Sensorium / Orientation: awake and alert Psych Psych Narrative: Patient exhibits confusion but does answer simple questions appropriately at times Assessment & Plan Assessment/Plan (1) Fracture, intertrochanteric, left femur: PLAN: Plan 1. Left intertrochanteric fracture-postop day #2 ORIF-PT and OT work with the patient, orthopedic surgery is seeing the patient, we are awaiting approval for the patient to go to a rehab unit in [place] #2 essential hypertension-patient will remain on her home medications #3 dementia-patient will remain on her home medications, complicates care, management, recovery, and prognosis #4 acute anemia of blood loss as expected consequence from left intertrochanteric hip fracture-patient's blood was not able to be drawn today by nursing, I do not feel that it is critical to get a repeat blood count at this time #5 acute kidney injury-patient will be given IV fluids, I will repeat her BMP tomorrow #6 acute blood loss anemia secondary to expected acute blood loss from left hip fracture-CBC will be rechecked tomorrow, patient does not need transfused at this time Total clinical time spent by myself addressing patient's medical issues, reviewing all of her data, and collaborating with patient's care team: 35 minutes Charges/Coding Visit Charges Inpatient E&M: 09509 Subs Hosp L2
[2024-01-15] MEDS: Lisinopril 20 MG Tablet PO (12:01)
--- NOTE | 2024-01-15 14:47 | CASEMGMT ---
Addendum entered by Cammie Jefferson 01/15/24 15:23: Social Work SW spoke w/physician, pt cannot go today due to kidney function. SW called daughter to let her know, let [facility] via [facility]. They can take pt anytime on the weekend. SW will place green sheet on the chart in anticipation of weekend discharge. SUSHANT Kimbrough Original Note: Socia Work Pt was approved to go to [facility] today, Auth # [id number], good 01/14-01/20. SW notified physician, he does plan to discharge pt today. SW set up 4:30pm ambulance w/Physicians, SW let daughter know pt was approved and set up to go today at 4:30pm, daughter in agreement. SW will send discharge paperwork to [facility] once completed. SUSHANT Kimbrough
[2024-01-15] MEDS: Acetaminophen 650 MG/20 ML UDC PO ×2 (14:53→21:44)
--- NOTE | 2024-01-15 15:09 | US_ITS ---
STUDY: RENAL ULTRASOUND - COMPLETE REASON FOR EXAM: Female, 83 years old. renal failure TECHNIQUE: Ultrasound evaluation of the kidneys was performed with real-time and static pop-scale imaging. COMPARISON: None. FINDINGS: RIGHT KIDNEY: Normal location of the right kidney, which is normal in size. The right kidney measures 9.7 x 3.9 x 3.9 cm. There is a normal cortex of the right kidney. The renal cortex measures 1 cm. There is no right renal mass or cyst. There are no right renal calculi. There is no right hydronephrosis. DISTAL RIGHT URETER: There is non-visualization of the distal right ureter. There is no demonstrated right ureterovesical junction calculus. There is a visualized right ureteral jet. LEFT KIDNEY: Limited visualization due to patient body habitus Normal location of the left kidney, which is normal in size. The left kidney measures 8.7 x 4.4 x 4.8 cm. There is a normal cortex of the left kidney. The renal cortex measures 1.4 cm. There is no left renal mass or cyst. There are no left renal calculi. There is no left hydronephrosis. DISTAL LEFT URETER: There is non-visualization of the distal left ureter. There is no demonstrated left ureterovesical junction calculus. There is a visualized left ureteral jet. BLADDER: Not adequately evaluated due to indwelling Sal catheter . US/Kidney and Bladder IMPRESSION: Limited study without evidence for renal mass or obstruction. Electronically Signed: Solomon Pichardo MD at 18:10 EDT ,
[2024-01-15] MEDS: 0.9% Saline Lock 10 ML Syringe IV (20:13)
[2024-01-15] MEDS: cycloBENZAPRine HCl 5 MG TABLET PO (21:39)
[2024-01-15] MEDS: MELATONIN 10 MG TABLET PO (21:39)
[2024-01-16] VITALS (13 sets, daily range): BP systolic 85–125; BP diastolic 36–85; PULSE 66–80; RESP 12–20; TEMP 36.2–36.9; O2SAT 86–100
[2024-01-16] MEDS: Acetaminophen 650 MG/20 ML UDC PO (04:02)
[2024-01-16] MEDS: 0.9% Normal Saline (1000mL) 1,000 ML 75 ML IV ×2 (04:02→22:10)
[2024-01-16 06:28] LABS: Hematocrit 22.3 % (37-47)
[2024-01-16 06:54] LABS: Anion Gap 2 (5-15); BUN 80 mg/dL (7-18); BUN/Creat Ratio 27.6 RATIO (10-20); Calcium,Total 7.8 mg/dL (8.5-10.1); Chloride 111 mmol/L (98-107); EST Glomerular Filtration Rate 17 mL/min (>60); Est Glom Filt Rate - Afr Amer 20 mL/min (>60); Estimated Creatinine Clearance 13.99 ml/min; Glucose 118 mg/dL (74-106); Potassium 5.1 mmol/L (3.5-5.1); Sodium Level 141 mmol/L (136-145)
[2024-01-16] MEDS: amLODIPine 5 MG Tablet PO (08:01)
[2024-01-16] MEDS: APIXABAN 2.5 MG TABLET (WCH) PO (08:01)
[2024-01-16] MEDS: Divalproex Sodium 125 MG SPRINKLE PO ×2 (08:02→21:59)
[2024-01-16] MEDS: Galantamine Hydrobromide 4 MG Tablet 12 MG PO ×2 (08:02→21:58)
[2024-01-16] MEDS: OLANZapine 5 MG/TAB TAB.RAPDIS PO (08:03)
[2024-01-16] MEDS: Memantine Hydrochloride 10 MG Tablet PO ×2 (08:03→21:58)
[2024-01-16] MEDS: Lisinopril 20 MG Tablet PO (08:04)
[2024-01-16] MEDS: Citalopram 40 MG TABLET PO (08:04)
[2024-01-16] MEDS: Oxybutynin 5 MG Tablet PO ×2 (08:04→21:58)
--- NOTE | 2024-01-16 13:09 | PCM.PN.HOSP ---
Reason for Visit Reason for Visit: Diagnoses Malignant neoplasm of unspecified site of left female breast (01/12/24) Unspecified atrial fibrillation (01/12/24) Other osteoporosis without current pathological fracture (01/12/24) Displaced intertrochanteric fracture of left femur, initial encounter for closed fracture (01/12/24) Subjective Subjective Patient was seen and examined today, her creatinine has improved today, but overall it still elevated. I talked to the patient's family member in the room today, I will repeat the patient's lab tomorrow and evaluate whether she can go to the [place] rehab unit. Objective Data Objective Data Vital Signs: Vital Signs Temp Pulse Resp BP Pulse Ox O2 Del Method O2 Flow Rate 98.3 F 79 20 H 110/36 L 95 Room Air 2 01/16/24 07:44 01/16/24 07:44 01/16/24 07:44 01/16/24 06:06 01/16/24 12:15 01/16/24 12:15 01/16/24 07:44 Oxygen Flow Rate (L/min) 2 Oxygen Delivery Method Room Air Weight: 75.568 kg Body Mass Index (BMI) 30.4 Intake & Output: Intake and Output for Last 24 Hours 01/14/24 01/15/24 01/16/24 23:59 23:59 23:59 Intake Total 2100 / 2100 1833.75 / 1933.75 488.75 / 488.75 Output Total 450 / 450 525 / 675 350 / 350 Balance 1650 / 1650 1308.75 / 1258.75 138.75 / 138.75 Lab / Micro Data 01/16/24 06:15 01/16/24 06:15 Labs: Laboratory Results - last 24 hr 01/15/24 08:02: WBC Cancelled, Corrected WBC Cancelled, RBC Cancelled, Hgb Cancelled, Hct Cancelled, MCV Cancelled, MCH Cancelled, MCHC Cancelled, RDW Std Deviation Cancelled, RDW Coeff of Jina Cancelled, Plt Count Cancelled, MPV Cancelled, Immature Gran % (Auto) Cancelled, Neut % (Auto) Cancelled, Lymph % (Auto) Cancelled, [place] % (Auto) Cancelled, Eos % (Auto) Cancelled, Baso % (Auto) Cancelled, Absolute Neuts (auto) Cancelled, Absolute Lymphs (auto) Cancelled, Total Counted Cancelled, Neutrophils % (Manual) Cancelled, Band Neutrophils % Cancelled, Lymphocytes % (Manual) Cancelled, Monocytes % (Manual) Cancelled, Eosinophils % (Manual) Cancelled, Basophils % (Manual) Cancelled, Metamyelocytes % Cancelled, Myelocytes % Cancelled, Promyelocytes % Cancelled, Blast Cells % Cancelled, Plasma Cell % (Manual) Cancelled, Other Cells % Cancelled, Nucleated RBC % Cancelled, Nucleated RBCs/100 WBC Cancelled, Differential Comment Cancelled, Diff Path Review Cancelled, Hypersegmented Neuts Cancelled, Atypical Lymphocytes Cancelled, Reactive Lymphocytes Cancelled, Smudge Cells Cancelled, Toxic Granulation Cancelled, Toxic Vacuolation Cancelled, Dohle Bodies Cancelled, Catherine Rods Cancelled, Platelet Estimate Cancelled, Plt Morphology Comment Cancelled, RBC Morphology Cancelled 01/15/24 08:02: RBC Morphology Cancelled, Polychromasia Cancelled, Hypochromasia Cancelled, Basophilic Stippling Cancelled, Anisocytosis Cancelled, Microcytosis Cancelled, Macrocytosis Cancelled, Spherocytes Cancelled, Sickle Cells Cancelled, Target Cells Cancelled, Tear Drop Cells Cancelled, Ovalocytes Cancelled, Stomatocytes Cancelled, [place] Bodies Cancelled, [place]na Cells Cancelled, Bite Cells Cancelled, Crenated Cell Cancelled, Acanthocytes (Spur) Cancelled, Rouleaux Cancelled, Schistocytes Cancelled 01/16/24 06:15: Hgb 7.0 L, Hct 22.3 L, Sodium 141, Potassium 5.1, Chloride 111 H, Carbon Dioxide 28.0, Anion Gap 2 L, BUN 80 H, Creatinine 2.90 H, Estim Creat Clear Calc 13.99, Est GFR (MDRD) Af Amer 20 L, Est GFR (MDRD) Non-Af 17 L, BUN/Creatinine Ratio 27.6 H, Glucose 118 H, Calcium 7.8 L Micro: Microbiology 01/12/24 15:33 Urine Catheter - Sal Urine Culture - Final Staphylococcus warneri Radiography Diagnostic Testing: Radiology Impression Renal Ultrasound 01/15/24 15:09 IMPRESSION: Limited study without evidence for renal mass or obstruction. Electronically Signed: Solomon Pichardo MD at 18:10 EDT Reading Location ID and State: [facility] / [place] Tel , Service support , Physical Exam Narrative alert and no apparent distress Constitutional Narrative: Patient appears her stated age General Appearance: cooperative, well kempt and well developed Orientation / Consciousness: awake and oriented to person HEENT normocephalic, head/scalp atraumatic and moist oral mucous membranes Eyes PERRL, EOMs intact bilaterally and conjunctivae normal Neck supple, no JVD, thyroid normal and no carotid bruits General: trachea midline Resp normal respiratory effort, no retractions, no use of accessory muscles and clear to auscultation bilaterally Auscultation: Negative for rales, rhonchi or wheezes Cardio regular rate, regular rhythm, S1 normal heart sound, S2 normal heart sound, no murmurs, no rub and no gallops GI normal to inspection, nondistended, normoactive bowel sounds, soft to palpation, non-tender and non-distended Skin no rashes or lesions noted General Skin Exam: no breakdown Neuro CN's II-XII intact bilaterally and no focal motor deficits Neuro Narrative: Patient is confused Sensorium / Orientation: awake and alert Psych Psych Narrative: Patient exhibits confusion but does answer simple questions appropriately at times Assessment & Plan Assessment/Plan (1) Fracture, intertrochanteric, left femur: PLAN: Plan 1. Left intertrochanteric fracture-postop day #3 ORIF-PT and OT work with the patient, orthopedic surgery is seeing the patient, we are awaiting approval for the patient to go to a rehab unit in [place] #2 essential hypertension-patient will remain on her home medications #3 dementia-patient will remain on her home medications, complicates care, management, recovery, and prognosis #4 acute anemia of blood loss as expected consequence from left intertrochanteric hip fracture-patient's blood was not able to be drawn today by nursing, I do not feel that it is critical to get a repeat blood count at this time #5 acute kidney injury-patient will be given IV fluids, I will repeat her BMP tomorrow, creatinine is improved today #6 acute blood loss anemia secondary to expected acute blood loss from left hip fracture-patient's hemoglobin today was 7, I think it would benefit the patient received 1 unit of packed red blood cells Total clinical time spent by myself addressing patient's medical issues, reviewing all of her data, and collaborating with patient's care team: 35 minutes Charges/Coding Visit Charges Inpatient E&M: 20894 Subs Hosp L2
[2024-01-16] MEDS: cycloBENZAPRine HCl 5 MG TABLET PO (21:58)
[2024-01-16] MEDS: MELATONIN 10 MG TABLET PO (21:59)
[2024-01-16] MEDS: Nystatin Powder 15gm Bottle 1 APPLIC TOPICAL (21:59)
[2024-01-16] MEDS: 0.9% Saline Lock 10 ML Syringe IV (22:12)
[2024-01-17 03:18] VITALS: BP 125/45; PULSE 69; RESP 16; TEMP 36.4; O2SAT 97
[2024-01-17] MEDS: Acetaminophen 650 MG/20 ML UDC PO (03:28)
[2024-01-17 06:52] LABS: Hematocrit 23.6 % (37-47); Hemoglobin 7.6 g/dL (12.0-15.0)
[2024-01-17 07:25] LABS: Anion Gap 1 (5-15); BUN 77 mg/dL (7-18); BUN/Creat Ratio 39.1 RATIO (10-20); Calcium,Total 7.7 mg/dL (8.5-10.1); Chloride 114 mmol/L (98-107); Creatinine, Serum 1.97 mg/dL (0.55-1.02); EST Glomerular Filtration Rate 26 mL/min (>60); Est Glom Filt Rate - Afr Amer 31 mL/min (>60); Estimated Creatinine Clearance 20.59 ml/min; Glucose 90 mg/dL (74-106); Potassium 5.2 mmol/L (3.5-5.1); Sodium Level 141 mmol/L (136-145)
[2024-01-17 08:12] VITALS: O2SAT 95
[2024-01-17 09:22] VITALS: BP 140/61; PULSE 69; RESP 16; TEMP 36.4; O2SAT 100
[2024-01-17] MEDS: Lisinopril 20 MG Tablet PO (10:35)
[2024-01-17] MEDS: APIXABAN 2.5 MG TABLET (WCH) PO (10:35)
[2024-01-17] MEDS: Citalopram 40 MG TABLET PO (10:36)
[2024-01-17] MEDS: amLODIPine 5 MG Tablet PO (10:36)
[2024-01-17] MEDS: Oxybutynin 5 MG Tablet PO (10:36)
[2024-01-17] MEDS: Memantine Hydrochloride 10 MG Tablet PO (10:36)
[2024-01-17] MEDS: Galantamine Hydrobromide 4 MG Tablet 12 MG PO (10:37)
[2024-01-17] MEDS: OLANZapine 5 MG/TAB TAB.RAPDIS PO (10:37)
[2024-01-17] MEDS: Divalproex Sodium 125 MG SPRINKLE PO (10:37)
--- NOTE | 2024-01-17 10:37 | PCM.TXEXTCAR ---
Diet Diet Order/Speech Therapy: 01/16/24 15:11 Diet: Regular - No Added Salt Food consistency:: Regular Liquid Consistency:: Regular/Thin Type of Dietary Supplement:: 8oz Ensure+HP w/ B & D Is pt able to select menu?: No Diet Comments: soft bite sized food, not minced Routine Orders/Code Status O2 Liters per Minute: 2 O2 Frequency: Continuous Keep PO Greater than or Equal to (%): 90 Routine Lab Work: BMP (on 01/18/24) Code Status: DNRCC-A (no intubation) Wound(s) LEFT HIP, DISTAL: Wound Type: Surgical Incision LEFT HIP, MEDIAL: Wound Type: Surgical Incision LEFT HIP, PROXIMAL: Wound Type: Surgical Incision Therapies Weight Bearing: Weight bearing as tolerated Problem/Diagnosis (1) Fracture, intertrochanteric, left femur: Status: Acute Code(s): S72.142A - Displaced intertrochanteric fracture of left femur, initial encounter for closed fracture Plan 1. Left intertrochanteric fracture-postop day #4 ORIF-PT and OT work with the patient, orthopedic surgery is seeing the patient, we are awaiting approval for the patient to go to a rehab unit in [place] #2 essential hypertension-patient will remain on her home medications #3 dementia-patient will remain on her home medications, complicates care, management, recovery, and prognosis #4 acute anemia of blood loss as expected consequence from left intertrochanteric hip fracture #5 acute kidney injury-resolving #6 acute blood loss anemia secondary to expected acute blood loss from left hip fracture Total clinical time spent by myself addressing patient's medical issues, reviewing all of her data, and collaborating with patient's care team: 35 minutes Allergies/Procedures Done in Hospital Allergies azithromycin [From Zithromax] Adverse Reaction (Severe, Verified 01/12/24 14:01) swell/tingle meperidine [From Demerol] Adverse Reaction (Severe, Verified 01/12/24 14:01) numbness/vomiting oxytetracycline [From Terramycin] Adverse Reaction (Severe, Verified 01/12/24 14:01) swell,tingle Penicillins [PCN] Adverse Reaction (Severe, Verified 01/12/24 14:01) swell,tingle propoxyphene [From Darvocet-N] Adverse Reaction (Severe, Verified 01/12/24 14:01) hallucinations Sulfa (Sulfonamide Antibiotics) Adverse Reaction (Severe, Verified 01/12/24 14:01) akbar Procedures: - (Cephalo- medullary nail insertion left femur due to hip fracture) Type of Care/Length of Stay Estimated LOS: Convalescent Care Less Than 30 days Type of Care Needed: Skilled Rehab Potential: Good Prognosis: Good Additional Orders/Day of Discharge Day of Discharge: 01/17/24 Dietary and Speech Recommendations Dietitian Recommendations/Changes: Regular, no added salt diet with 240mL ensure plus HP at breakfast and dinner meals. Adjust ONS as needed to optimize PO and prevent unintentional weight loss. Monitor BUN/creat and need to restrict protein/sodium from a renal diet standpoint. Discharge Plan Admission Admit Date/Time: 01/12/24 17:27 Primary Reason for Your Visit: Left intertrochanteric fracture Attending Provider: Dani Jaramillo Primary Care Provider: Yoav Beard Consulting Providers: David Morgan; Howard Fragoso Discharge Orders/Prescriptions Prescriptions: New nystatin [Nyamyc] 100,000 unit/gram Powder 1 applic topical BID Qty: 0 0RF Protocol: *Topical Application Instructions APPLICATION INSTRUCTIONS: folds acetaminophen 650 mg/20.3 mL Solution 650 mg PO Q6H PRN PRN (Reason: Pain 1-10 Or Fever) Qty: 0 0RF Eliquis 5 mg Tablet 2.5 mg PO BID Qty: 1 0RF Rx Instructions: for 60 doses (30 days) Continued lisinopril [Zestril] 40 MG tablet 20 mg PO DAILY oxybutynin chloride 5 mg Tablet 5 mg PO BID olanzapine 5 mg tablet 5 mg PO DAILY galantamine 24 mg capsule,ext rel. pellets 24 hr 24 mg PO DAILY divalproex 125 mg capsule, delayed rel sprinkle 125 mg PO BID cyclobenzaprine 5 mg tablet 5 mg PO QHS melatonin 10 mg capsule 10 mg PO QHS citalopram 40 mg tablet 40 mg PO DAILY amlodipine 5 mg tablet 5 mg PO DAILY memantine 10 mg tablet 10 mg PO BID Discontinued lisinopril 20 mg tablet 20 mg PO DAILY Referrals / Follow Up: Yoav Beard MD [Primary Care Provider] - David Morgan MD [Med Staff - Active Staff] - See Referral Note (In 2 weeks, call office for appointment time) Disposition Disposition (needs filled in before D/C Order can be placed): Retirement Facility
--- NOTE | 2024-01-17 10:53 | PCM.DC.SUM ---
Providers Date of Admission: 01/12/24 Date of Discharge: 01/17/24 Primary Care Physician: Dr. Yoav Beard MD Consultations 01/12/24 18:38 Consult: Orthopedics Routine Consulting Provider: David Morgan Reason for Consult: Left hip fracture EMERGENT Consult: No MD Notified: Yes Date Notified: 01/12/24 Time Notified: 17:54 Method of Notification: ED Physician Initiated Reason For Visit: HIP FRACTURE LEFT Diagnosis Discharge Diagnosis (1) Fracture, intertrochanteric, left femur: Status: Acute Code(s): S72.142A - Displaced intertrochanteric fracture of left femur, initial encounter for closed fracture Plan 1. Left intertrochanteric fracture secondary to osteoporosis-postop day #4 ORIF-PT and OT work with the patient, orthopedic surgery is seeing the patient, we are awaiting approval for the patient to go to the TCU in [place] #2 essential hypertension-patient will remain on her home medications #3 dementia-patient will remain on her home medications, complicates care, management, recovery, and prognosis #4 acute anemia of blood loss as expected consequence from left intertrochanteric hip fracture #5 acute kidney injury-resolving #6 acute blood loss anemia secondary to expected acute blood loss from left hip fracture Total clinical time spent by myself addressing patient's medical issues, reviewing all of her data, and collaborating with patient's care team: 35 minutes Medications at Discharge Home Medications lisinopril 40 mg tablet (Zestril) 20 mg PO DAILY 12/30/16 olanzapine 5 mg tablet 5 mg PO DAILY 08/05/22 oxybutynin chloride 5 mg tablet 5 mg PO BID 08/05/22 amlodipine 5 mg tablet 5 mg PO DAILY 01/12/24 citalopram 40 mg tablet 40 mg PO DAILY 01/12/24 cyclobenzaprine 5 mg tablet 5 mg PO QHS 01/12/24 divalproex 125 mg capsule,delayed release sprinkle 125 mg PO BID 01/12/24 galantamine 24 mg 24 hr capsule,extended release 24 mg PO DAILY 01/12/24 melatonin 10 mg capsule 10 mg PO QHS 01/12/24 memantine 10 mg tablet 10 mg PO BID 01/12/24 acetaminophen 650 mg/20.3 mL oral solution 650 mg (20.3 mL) PO Q6H PRN PRN Pain 1-10 Or Fever #0 mL 01/17/24 apixaban 5 mg tablet (Eliquis) 2.5 mg (1/2 x 5 mg) PO BID #1 TAB 01/17/24 nystatin 100,000 unit/gram topical powder (Nyamyc) 1 applic topical BID #0 grams 01/17/24 Hospital Course Operations - (Gamma nail insertion in the left hip for repair of left hip fracture) Procedures None Summary of Care Provided Minutes Spent on Discharge: 32 Hospital Course: This 83-year-old white female was seen in the emergency room at [facility] after sustaining a mechanical fall at home. Workup in the emergency room included x-rays which showed an intertrochanteric fracture of the left hip. Patient was admitted to [place] [id number] and seen in consultation by orthopedic surgery, she was felt to be stable to undergo ORIF of the left hip fracture, gamma nail was inserted and there were no complications to the surgery. Patient was seen by PT and OT, postop patient's renal functions declined and she was given IV fluids and following this, the renal functions improved. Arrangements were made for the patient to go to the TCU unit at [facility] in [facility]. Patient required 1 unit of packed red blood cells due to a low hemoglobin during her hospitalization. On 01/17/2024, patient was seen and examined:alert and no apparent distress Constitutional Narrative: Patient appears her stated age General Appearance: cooperative, well kempt and well developed Orientation / Consciousness: awake and oriented to person HEENT normocephalic, head/scalp atraumatic and moist oral mucous membranes Eyes PERRL, EOMs intact bilaterally and conjunctivae normal Neck supple, no JVD, thyroid normal and no carotid bruits General: trachea midline Resp normal respiratory effort, no retractions, no use of accessory muscles and clear to auscultation bilaterally Auscultation: Negative for rales, rhonchi or wheezes Cardio regular rate, regular rhythm, S1 normal heart sound, S2 normal heart sound, no murmurs, no rub and no gallops GI normal to inspection, nondistended, normoactive bowel sounds, soft to palpation, non-tender and non-distended Skin no rashes or lesions noted General Skin Exam: no breakdown Neuro CN's II-XII intact bilaterally and no focal motor deficits Neuro Narrative: Patient is confused Sensorium / Orientation: awake and alert Psych Psych Narrative: Patient exhibits confusion but does answer simple questions appropriately at times Patient appear to be stable for discharge to [place] [facility]CU in stable condition on 01/17/2024 Weight / BMI Weight Weight: 75.568 kg Body Mass Index (BMI) 30.4 ABG / Lab / Microbiology Data 01/17/24 06:40 01/17/24 06:40 Laboratory: Laboratory Results - last 24 hr 01/16/24 13:55: Blood Type B POSITIVE, Antibody Screen NEGATIVE, Crossmatch See Detail 01/17/24 06:40: Hgb 7.6 L, Hct 23.6 L, Sodium 141, Potassium 5.2 H, Chloride 114 H, Carbon Dioxide 26.0, Anion Gap 1 L, BUN 77 H, Creatinine 1.97 H, Estim Creat Clear Calc 20.59, Est GFR (MDRD) Af Amer 31 L, Est GFR (MDRD) Non-Af 26 L, BUN/Creatinine Ratio 39.1 H, Glucose 90, Calcium 7.7 L Microbiology: Microbiology 01/12/24 15:33 Urine Catheter - Sal Urine Culture - Final Staphylococcus warneri Meaningful Use Info Meaningful Use Diagnoses (Choose all that apply): None applicable Discharge Plan Admission Admit Date/Time: 01/12/24 17:27 Primary Reason for Your Visit: Left intertrochanteric fracture Attending Provider: Dani Jaramillo Primary Care Provider: Yoav Beard Consulting Providers: David Morgna; Howard Fragoso Discharge Orders/Prescriptions Prescriptions: New nystatin [Nyamyc] 100,000 unit/gram Powder 1 applic topical BID Qty: 0 0RF Protocol: *Topical Application Instructions APPLICATION INSTRUCTIONS: folds acetaminophen 650 mg/20.3 mL Solution 650 mg PO Q6H PRN PRN (Reason: Pain 1-10 Or Fever) Qty: 0 0RF Eliquis 5 mg Tablet 2.5 mg PO BID Qty: 1 0RF Rx Instructions: for 60 doses (30 days) Continued lisinopril [Zestril] 40 MG tablet 20 mg PO DAILY oxybutynin chloride 5 mg Tablet 5 mg PO BID olanzapine 5 mg tablet 5 mg PO DAILY galantamine 24 mg capsule,ext rel. pellets 24 hr 24 mg PO DAILY divalproex 125 mg capsule, delayed rel sprinkle 125 mg PO BID cyclobenzaprine 5 mg tablet 5 mg PO QHS melatonin 10 mg capsule 10 mg PO QHS citalopram 40 mg tablet 40 mg PO DAILY amlodipine 5 mg tablet 5 mg PO DAILY memantine 10 mg tablet 10 mg PO BID Discontinued lisinopril 20 mg tablet 20 mg PO DAILY Referrals / Follow Up: Yoav Beard MD [Primary Care Provider] - David Morgan MD [Med Staff - Active Staff] - See Referral Note (In 2 weeks, call office for appointment time) Disposition Disposition (needs filled in before D/C Order can be placed): Retirement Facility Charges/Coding Visit Charges Inpatient E&M: 39071 Disch Hosp >30min
[2024-01-17 11:44] VITALS: BP 159/82; PULSE 73; RESP 16; TEMP 36.2; O2SAT 93
== END 2024-01-17 13:27 | disposition skilled nursing facility (03) | DRG 481 ==
LOC: ED 15:20 → MS3 17:16
PROVIDERS: Internal Medicine; Specialist; Admitting Provider Family Medicine; Emergency Provider Student in an Organized Health Care Education/Training Program; PCP Family Medicine; Visit Provider Internal Medicine
PROC: 0QS736Z Reposition Left Upper Femur with Intramedullary Internal Fixation Device, Percutaneous Approach (ICD-10-PCS; CPT 27245; principal; 2024-01-13 16:30)
DX: M80.052A Age-related osteoporosis with current pathological fracture, left femur, initial encounter for fracture (principal); N17.9 Acute kidney failure, unspecified; D62 Acute posthemorrhagic anemia; F03.90 Unspecified dementia, unspecified severity, without behavioral disturbance, psychotic disturbance, mood disturbance, and anxiety; S09.90XA Unspecified injury of head, initial encounter; I48.91 Unspecified atrial fibrillation; I12.9 Hypertensive chronic kidney disease with stage 1 through stage 4 chronic kidney disease, or unspecified chronic kidney disease; N18.9 Chronic kidney disease, unspecified; W19.XXXA Unspecified fall, initial encounter; Z66 Do not resuscitate; Z79.899 Other long term (current) drug therapy; Z87.891 Personal history of nicotine dependence; Z85.3 Personal history of malignant neoplasm of breast
CPT/HCPCS: 36415; 70450; 71045; 72125; 73502; 73552; 73700; 76000; 76770; 80048; 81001; 85014; 85018; 85025; 86850; 86900; 86901; 86920; 86922; 87077; 87086; 87088; 87186; 93005; 97110; 97162; 97166; 97530; 97535; 99252; 99284; C1776; J7030; J7120; P9016; A4216; G0463; J1940; J2405

== ENCOUNTER → 2024-09-05 | Outpatient (CLI) | payer MEDICARE, SELFPAY ==
[2024-09-05 11:01] LABS: Absolute Lymphocyte Count 1.85 X10^3/uL (0.83-4.51); Absolute Neutrophil Count 4.5 X10^3/uL (2.0-7.7); Basophil# 0.03 X10^3/uL; Basophil% 0.4 % (0-1); Eosinophil# 0.03 X10^3/uL; Eosinophils% 0.4 % (0-5); Hematocrit 37.2 % (37-47); Hemoglobin 11.7 g/dL (12.0-15.0); Lymphocyte # 1.85 X10^3/ul (0.83-4.51); Lymphocyte % 27.2 % (19-41); Mean Corp Hgb Conc 31.5 g/dL (32-36); Mean Corpuscular Hgb 31.2 pg (27.0-32.0); Mean Corpuscular Volume 99.2 fL (81-99); Mean Platelet Vol. 10.8 fl (6.2-12.0); Monocyte# 0.39 X10^3/uL; Monocyte% 5.7 % (0-10); NRBC Flagged by Analyzer 0 % (0-5); Neutrophil # 4.46 X10^3/uL (2.7-7.7); Neutrophil % 65.9 % (47-70); Platelet Count 231 K/mm3 (150-450); RBC Distribution Width CV 13.4 % (11.6-14.6); RBC Distribution Width SD 48.9 fl (35.1-43.9); Red Blood Count 3.75 M/mm3 (4.2-5.4); White Blood Count 6.8 K/mm3 (4.4-11.0)
[2024-09-05 11:38] LABS: ALB/GLOB Ratio 0.6 RATIO (0.9-2.4); AST(SGOT) 14 U/L (15-37); Alanine Aminotransfer ALT/SGPT 11 U/L (13-56); Albumin, Serum 2.7 g/dL (3.2-5.0); Alkaline Phosphatase 109 U/L (45-117); Anion Gap 5 (5-15); BUN 21 mg/dL (7-18); BUN/Creat Ratio 17.9 RATIO (10-20); Calcium,Total 8.6 mg/dL (8.5-10.1); Chloride 107 mmol/L (98-107); Cholesterol 155 mg/dL (200); Creatinine, Serum 1.17 mg/dL (0.55-1.02); EST Glomerular Filtration Rate 47 mL/min (>60); Est Glom Filt Rate - Afr Amer 57 mL/min (>60); Globulin 4.3 g/dL (2.2-4.2); Glucose 140 mg/dL (74-106); High Density Lipoprotein 54 mg/dL; Potassium 3.9 mmol/L (3.5-5.1); Sodium Level 138 mmol/L (136-145); Triglycerides 109 mg/dL; Very Low Density Lipoprotein 22 mg/dL (5-40)
[2024-09-05 13:09] LABS: Vitamin D,25 Hydroxy 33.3 ng/mL
[2024-09-05 15:18] LABS: Hemoglobin A1c 5.5 % (3.8-5.6)
== END | disposition home or self-care (01) ==
LOC: POLAB3 10:37
PROVIDERS: PCP Family Medicine; Visit Provider Family Medicine Geriatric Medicine
DX: I10 Essential (primary) hypertension (principal); E55.9 Vitamin D deficiency, unspecified; R73.09 Other abnormal glucose
CPT/HCPCS: 36415; 80053; 80061; 82306; 83036; 84443; 85025

== ENCOUNTER → 2025-09-06 | Outpatient (CLI) | payer MEDICARE, SELFPAY ==
[2025-09-06 11:16] LABS: Hematocrit 43.9 % (37-47); Hemoglobin 14.1 g/dL (12.0-15.0); Immature Granulocytes Count 0.030 X10^3/uL (0.0-0.0); Mean Corp Hgb Conc 32.1 g/dL (32-36); Mean Corpuscular Volume 99.1 fL (81-99); Mean Platelet Vol. 11.4 fl (6.2-12.0); NRBC Flagged by Analyzer 0 % (0-5); Platelet Count 187 K/mm3 (150-450); RBC Distribution Width CV 13.4 % (11.6-14.6); RBC Distribution Width SD 49.7 fl (35.1-43.9); Red Blood Count 4.43 M/mm3 (4.2-5.4); White Blood Count 8.0 K/mm3 (4.4-11.0)
[2025-09-06 12:14] LABS: Cholesterol 174 mg/dL (<=200); Low Density Lipoprotein Calc. 94 mg/dL; Triglycerides 137 mg/dL; Very Low Density Lipoprotein 27 mg/dL (5-40); Vitamin D,25 Hydroxy 25.1 ng/mL (30-100); cholesterol:hdl ratio screen 3.10
[2025-09-06 12:18] LABS: AST(SGOT) 24 U/L (<=31); Alanine Aminotransfer ALT/SGPT 20 U/L (<=34); Albumin, Serum 3.7 g/dL (3.4-4.8); Alkaline Phosphatase 147 U/L (35-104); Anion Gap 11 (5-15); BUN 25 mg/dL (4-19); BUN/Creat Ratio 22.9 RATIO (10-20); Calcium,Total 9.3 mg/dL (7.6-11.0); Carbon Dioxide 23.7 mmol/L (21.0-32.0); Chloride 106 mmol/L (98-108); Globulin 3.9 g/dL (2.2-4.2); Glucose 136 mg/dL (70-99); Potassium 4.5 mmol/L (3.3-5.1)
== END | disposition home or self-care (01) ==
LOC: POLAB3 10:54
PROVIDERS: PCP Family Medicine; Visit Provider Family Medicine Geriatric Medicine
DX: E05.90 Thyrotoxicosis, unspecified without thyrotoxic crisis or storm (principal); E55.9 Vitamin D deficiency, unspecified; E78.5 Hyperlipidemia, unspecified; I10 Essential (primary) hypertension
CPT/HCPCS: 36415; 80053; 80061; 82306; 84443; 85025

== ENCOUNTER 2025-09-27 12:41 | Inpatient (IN) | payer MEDICARE, SELFPAY ==
[2025-09-27] VITALS (9 sets, daily range): BP systolic 103–177; BP diastolic 50–60; PULSE 66–78; RESP 16–18; TEMP 36.6–37.2; O2SAT 2–98; BMI 28.1
--- NOTE | 2025-09-27 13:19 | EKG12_ITS ---
Test Reason : Blood Pressure : */* mmHG Vent. Rate : 71 BPM Atrial Rate : 71 BPM P-R Int : 208 ms QRS Dur : 86 ms QT Int : 406 ms P-R-T Axes : 9 -35 -22 degrees QTcB Int : 441 ms Normal sinus rhythm with sinus arrhythmia Left axis deviation Moderate voltage criteria for LVH, may be normal variant ( R in aVL , Jose product ) Cannot rule out Anterior infarct , age undetermined Abnormal ECG Confirmed by Bryan Brewer ([id number]), book or script editor JONH BENNETT ([id number]) on 09/29/2025 8:04:56 AM Referred By: Confirmed By: Bryan Brewer
--- NOTE | 2025-09-27 13:24 | EX.ED.DYSGE1 ---
HPI History of Present Illness Chief Complaint: Nausea/Vomiting/Diarrhea Narrative Narrative: Patient is an 84-year-old female presenting to the emergency department for nausea, vomiting and diarrhea. Patient has a past medical history of left-sided breast cancer, A-fib, TIA, dementia, CKD, and hypertension. Patients daughter is at bedside and helps provide history. She states the patient lives with her niece and nephew at home. She was acting and feeling normal yesterday. Last night in the middle of the night she had 3 episodes of nonbloody nonbilious emesis and nonbloody diarrhea while in bed lying down. She has been tired today. She denies any pain. She denies fever, chills, chest pain, SOB, abdominal pain, dysuria or hematuria. Denies nausea at time of evaluation. [facility] Medical History (Updated 09/27/25 @ 17:[address] Marlee De La Garza MD) Lymphedema of arm Former tobacco use Chronic kidney disease (CKD), stage 3 Chronic anemia Mood disorder Anxiety and depression Invasive ductal carcinoma of left breast, stage 2 TIA (transient ischemic attack) Atrial fibrillation Dementia Skin cancer Hypertension Home Medications ?Medication ?Instructions ?Recorded ?Last Taken ?Type lisinopril 40 mg tablet (Zestril) 20 mg PO DAILY HTN 12/30/16 09/27/25 History olanzapine 5 mg tablet 5 mg PO DAILY anti-psychotic 08/05/22 09/27/25 History oxybutynin chloride 5 mg tablet 5 mg PO BID Overactive 08/05/22 09/27/25 History amlodipine 5 mg tablet 5 mg PO DAILY HTN 01/12/24 09/27/25 History citalopram 40 mg tablet 40 mg PO DAILY Depression 01/12/24 09/26/25 History cyclobenzaprine 5 mg tablet 5 mg PO QHS Restless leg 01/12/24 09/26/25 History divalproex 125 mg capsule,delayed 125 mg PO BID Unknown 01/12/24 09/27/25 History release sprinkle galantamine 24 mg 24 hr 24 mg PO DAILY Anti-dementia 01/12/24 09/27/25 History capsule,extended release melatonin 10 mg capsule 10 mg PO QHS Sleep aide 01/12/24 09/26/25 History memantine 10 mg tablet 10 mg PO BID Anti-dementia 01/12/24 09/27/25 History acetaminophen 650 mg/20.3 mL oral 650 mg (20.3 mL) PO Q6H PRN PRN 01/17/24 Unknown Rx solution Pain 1-10 Or Fever #0 mL nystatin 100,000 unit/gram topical 1 applic topical BID #0 grams 01/17/24 Unknown Rx powder ([facility]) Allergy/AdvReac Type Severity Reaction Status Date / Time azithromycin (From Zithromax) AdvReac Severe swell/tingl Verified 09/27/25 12:47 e meperidine (From Demerol) AdvReac Severe numbness/vo Verified 09/27/25 12:47 miting oxytetracycline (From AdvReac Severe swell,tingl Verified 09/27/25 12:47 Terramycin) e Penicillins (PCN) AdvReac Severe swell,tingl Verified 09/27/25 12:47 e propoxyphene (From AdvReac Severe hallucinati Verified 09/27/25 12:47 Darvocet-N) ons Sulfa (Sulfonamide AdvReac Severe welts Verified 09/27/25 12:47 Antibiotics) Family History Father Hypertension Mother Alzheimer disease Diabetes Hypertension Surgical History (Updated 09/27/25 @ 16:[address] Marlee De La Garza MD) Status post hip surgery Hx of tonsillectomy History of hysterectomy Hx of cholecystectomy History of appendectomy Social History (Updated 09/27/25 @ 16:[address] Marlee De La Garza MD) household members: family Smoking Status: Former smoker alcohol intake: never substance use type: does not use ROS ROS ED ROS Narrative see HPI EXAM Physical Exam Narrative Exam Narrative: Vital signs: Reviewed General: Alert and orientedx3. No acute distress. Chronically ill appearing. Nontoxic. HEENT: Head is normocephalic and atraumatic, sinuses nontender, pupils equal round and reactive. Nares are patent. Oropharynx and throat exams normal. Dry mucous membranes. Neck: Supple without lymphadenopathy nontender Cardiovascular: Regular rate and rhythm, no murmurs. No rubs or gallops. Normal S1 and S2 Respiratory: Clear to auscultation bilaterally. No wheezes, rales, rhonchi Abdominal: Soft and nontender. Normal bowel sounds. No guarding or rebound. Nonsurgical abdomen Extremities: No tenderness. No bruising. Normal range of motion. Normal sensation. Skin: No rash or redness. Neurological: Cranial nerves II through XII are grossly intact. Normal strength and sensation. Normal cerebellar function The rest of the physical exam is unremarkable Const Vital Signs: 09/27/25 12:42 09/27/25 14:42 09/27/25 16:00 Temperature 99 F Temperature Source Oral Pulse Rate 68 72 72 Respiratory Rate 18 16 16 Blood Pressure 177/50 H 103/59 L 108/60 Blood Pressure Mean 92 73 76 Pulse Ox 96 98 97 Oxygen Delivery Method Room Air MDM MDM MDM Narrative Medical decision making narrative: Patient is an 84-year-old female presenting to the emergency department for nausea, vomiting and diarrhea. Patient was seen and examined. Vitals are stable. She is mildly hypertensive but does have a history of hypertension. Patient is resting in bed comfortably in no acute distress. Patient given a fluid bolus and Zofran given her nausea and vomiting overnight. Differential includes but is not limited to: Pneumonia, UTI, URI, pneumonitis, ACS, colitis, diverticulitis, partial SBO EKG shows normal sinus rhythm with a sinus arrhythmia at a rate of 71. Left axis deviation. There are no ischemic changes or dysrhythmia. CBC with no leukocytosis and anemia of 11.0 which has been seen previously but is a drop from her most recent on 09/06 at 14.1. BMP with baseline elevated BUN of 21 and mildly elevated alk phos of 122 which has been seen previously. Initial troponin of 33 no baseline to compare to. Reflex with no significant delta change at 31. Lipase within normal limits. Urinalysis with no evidence of urinary tract infection. Lactic within normal limits. Viral swab negative. CT of the abdomen pelvis shows dilated bowel loops with fluid consistent with enterocolitis. Age-indeterminate compression fracture of L1 with 80% height loss, patient has no back pain and no midline tenderness on reevaluation. Daughter denies her having any recent falls, states 1 year ago she did fall. Chest x-ray reviewed shows cardiomegaly and some vascular congestion which is in agreement with radiology. I was notified by nursing staff that the patient was now on 2 L nasal cannula due to her dropping to 80% while sleeping. She is now saturating 100% on nasal cannula. Given the patient's symptoms and her vomiting while she was lying down and sleeping I do have concern about possible aspiration. I did recommend admission given the patient's overall ill-appearing presentation and new oxygen requirement. Patient and daughter feel comfortable with the plan. Discussed with hospitalist, Dr. De La Garza for admission. Clinical impression Nausea vomiting and diarrhea History & Record Review Discussion w/independent historian: Patient and Family Additional record(s) reviewed:: Prior labs Lab Data Attestation: I reviewed the patient's lab results. Labs: Laboratory Results - last 24 hr 09/27/25 09/27/25 09/27/25 13:30 14:15 15:30 WBC 8.6 RBC 3.52 L Hgb 11.0 L Hct 34.4 L MCV 97.7 MCH 31.3 MCHC 32.0 RDW Std Deviation 48.8 H RDW Coeff of Jina 13.6 Plt Count 238 MPV 10.4 Immature Gran % (Auto) 0.600 Neut % (Auto) 90.3 H Lymph % (Auto) 4.3 L [place] % (Auto) 4.6 Eos % (Auto) 0.0 Baso % (Auto) 0.2 Absolute Neuts (auto) 7.8 H Absolute Lymphs (auto) 0.37 L Nucleated RBC % 0 Sodium 141 Potassium 4.8 Chloride 105 Carbon Dioxide 25.6 Anion Gap 10 BUN 21 H Creatinine 1.00 Estim Creat Clear Calc 38.36 L Est GFR (MDRD) Non-Af 56 L BUN/Creatinine Ratio 20.8 H Glucose 132 H Lactic Acid < 1.0 Calcium 8.7 Phosphorus 2.9 Magnesium 1.9 Total Bilirubin 0.35 AST 27 ALT 11 Alkaline Phosphatase 122 H Troponin T High Sens 33 H Troponin T Hi Sens 2 Hr 31 H Total Protein 7.2 Albumin 3.4 Globulin 3.8 Albumin/Globulin Ratio 0.9 Lipase 17 Procalcitonin 0.07 Urine Color Urine Clarity Urine pH Ur Specific [place] Urine Protein Urine Glucose (UA) Urine Ketones Urine Occult Blood Urine Nitrite Urine Bilirubin Urine Urobilinogen Ur Leukocyte Esterase Urine RBC Urine WBC Ur Squamous Epith Cells Urine Bacteria Urine Mucus 09/27/25 15:40 WBC RBC Hgb Hct MCV MCH MCHC RDW Std Deviation RDW Coeff of Jina Plt Count MPV Immature Gran % (Auto) Neut % (Auto) Lymph % (Auto) [place] % (Auto) Eos % (Auto) Baso % (Auto) Absolute Neuts (auto) Absolute Lymphs (auto) Nucleated RBC % Sodium Potassium Chloride Carbon Dioxide Anion Gap BUN Creatinine Estim Creat Clear Calc Est GFR (MDRD) Non-Af BUN/Creatinine Ratio Glucose Lactic Acid Calcium Phosphorus Magnesium Total Bilirubin AST ALT Alkaline Phosphatase Troponin T High Sens Troponin T Hi Sens 2 Hr Total Protein Albumin Globulin Albumin/Globulin Ratio Lipase Procalcitonin Urine Color Yellow Urine Clarity Clear Urine pH 7.0 Ur Specific [place] 1.010 Urine Protein 100 H Urine Glucose (UA) Normal Urine Ketones Negative Urine Occult Blood 10 H Urine Nitrite Negative Urine Bilirubin Negative Urine Urobilinogen 1 H Ur Leukocyte Esterase Negative Urine RBC 0-5 SEEN Urine WBC 0-5 SEEN Ur Squamous Epith Cells 0-5 SEEN Urine Bacteria RARE Urine Mucus 0 SEEN Radiography Chest X-Ray - ED: 2 View, Read by ED Physician, Cardiomegaly and - (vascular congestion) Diagnostic Testing: Clinical Impression(s) from Imaging Studies Abdomen/Pelvis CT 09/27/25 13:29 IMPRESSION: Dilated bowel loops with fluid consistent with enterocolitis. Age-indeterminate compression fracture of L1 with 80% height loss. Please correlate with clinical history, focal tenderness or MRI lumbar spine. Reading Location: [facility] Chest X-Ray 09/27/25 14:40 IMPRESSION: Mild cardiomegaly and diffuse pulmonary vascular congestion. Possible bibasilar consolidations. [facility] Plan Disposition Disposition: Acute Care Hospital [facility] Discharge Date/Time: 09/27/25 17:16
--- NOTE | 2025-09-27 13:29 | CT_ITS ---
PROCEDURE: ABDOMEN/PELVIS W IV CONT ONLY 09/27/2025 REASON FOR EXAM: NAUSEA VOMITING DIARRHEA TECHNIQUE: Procedure Code: [id number] Modality: CT Procedure: ABDOMEN/PELVIS W IV CONT ONLY Coronal and Sagittal reconstruction series were provided. CONTRAST: Isovue 370 VOLUME: 92 mL One or more dose reduction techniques were used (e.g., Automated exposure control, adjustment of the mA and/or kV according to patient size, use of iterative reconstruction technique. RADIATION DOSE SUMMARY: CTDlvol: 8.33 mGy DLP: 826.54 mGycm COMPARISON: None. FINDINGS: Lung bases: Clear. Atherosclerotic calcifications of the coronary arteries. Liver: Unremarkable. Gallbladder: Status post cholecystectomy with post cholecystectomy biliary dilation. Spleen: Unremarkable. Pancreas: Unremarkable. Adrenals: Unremarkable. Kidneys: No hydronephrosis. No nephrolithiasis. Bladder: Unremarkable. Reproductive Organs: Unremarkable. Bowel: Dilated bowel loops with fluid consistent with enterocolitis. No bowel obstruction. Appendix: Unremarkable. Lymph nodes: No lymphadenopathy. Vasculature: Atherosclerotic calcifications of the aorta. Peritoneum / Retroperitoneum: No free air or free fluid. Bones: Postsurgical changes for fixation of left femoral fracture. Age- indeterminate compression fracture of L1 with 80% height loss. CT/Abdomen/Pelvis W IV Cont ONLY IMPRESSION: Dilated bowel loops with fluid consistent with enterocolitis. Age-indeterminate compression fracture of L1 with 80% height loss. Please john elate with clinical history, focal tenderness or MRI lumbar spine. Reading Location: [facility]
[2025-09-27] MEDS: 0.9% Normal Saline (1000mL) 1,000 ML 1000 ML IV (13:39)
--- OUTSIDE RECORDS SUMMARY | 2025-09-27 13:41 | XMS RPT_ITS | CCD ---
Author Organization [facility] Care Team Providers Care Handle Bar Assembler Name Role Phone Yoav Chakraborty MD Primary Care Provider Manish LI MD, Daesung Unavailable Elle Do Unavailable Unavailable Primary Care Provider Unavailabl e Yoav Chakraborty MD Primary Care Provider [phone] Manish LI MD, Daesung Unavailable Elle Do Unavailable Dr. Yoav Chakraborty Primary Care Provider Kings FOOD ORDER DELIVERY RUNNER, FOOD ORDER DELIVERY RUNNER-C Dorys Attending Provider Unav ailable Dr. Andreas Moctezuma Attending Provider Manish LI, Joss Unavailable Dr. Yoav Chakraborty Primary Care Provider [phone] Dr. Chacho Epperson Emergency Provider Dr. Howard Fragoso Admit Provider Dr. Howard Fragoso Attending Provider Dr. Howard Fragoso Other Provider Dr. David Morgan Other Provider Dr. Dani Jaramillo Attending Provider Dr. Dani Jaramillo Other Provider Yoav Chakraborty MD Primary Care Provider Norberto EARLY YEARS TEACHER.DRYING ROOM OPERATOR, Arnie Unavailable Yoav Chakraborty MD Unavailable Violet PT, Delicia Unavailable Skyler Delatorre RN Unavailable VENKAT JEREZ Admitting Unavailable HERMES RICHARDSON Attending Unavailable CHAKRABORTY, YOAV B Primary Care Unavailable Yoav Chakraborty MD Unavailable Connor Kay Chi Attending Unavailable Chakraborty, Yoav Primary Care Unavailable Kotsonis, Howard F Admitting Unavailable Eddie, David Consulting Unavailable Tereletsky, Dani Attending Unavailable Chakraborty, Yoav Primary Care Unavailable Kotsonis, Howard F Consulting Unavailable Chakraborty, Yoav Primary Care Unavailable Kotsonis, Howard F Admitting Unavailable Tereletsky, Dani Attending Unavailable Eddie, David Consulting Unavailable Kotsonis, Howard F Consulting Unavailable Tereletsky, Dani Consulting Unavailable Kotsonis, Howard F Attending Unavailable Norberto PÉREZ.AFSHIN, Arnie Page Unavailable ALI, LEONID IMMANUEL Referring Unavailable CHAKRABORTY, YOAV B Primary Care Unavailable ALI, LEONID IMMANUEL Referring Unavailable CHAKRABORTY, YOAV B Primary Care Unavailable ALI, LEONID IMMANUEL Referring Unavailable CHAKRABORTY, YOAV B Primary Care Unavailable ALI, LEONID IMMANUEL Referring Unavailable CHAKRABORTY, YOAV B Primary Care Unavailable PROVIDER, UNKNOWN Referring Unavailable CHAKRABORTY, YOAV B Primary Care Unavailable PROVIDER, UNKNOWN Referring Unavailable CHAKRABORTY, YOAV B Primary Care Unavailable PROVIDER, UNKNOWN Referring Unavailable CHAKRABORTY, YOAV B Primary Care Unavailable PROVIDER, UNKNOWN Referring Unavailable CHAKRABORTY, YOAV B Primary Care Unavailable ALI, LEONID IMMANUEL Referring Unavailable CHAKRABORTY, YOAV B Primary Care Unavailable ALI, LEONID IMMANUEL Referring Unavailable CHAKRABORTY, YOAV B Primary Care Unavailable ALI, LEONID IMMANUEL Referring Unavailable CHAKRABORTY, YOAV B Primary Care Unavailable ALI, LEONID IMMANUEL Referring Unavailable CHAKRABORTY, YOAV B Primary Care Unavailable ALI, LEONID IMMANUEL Referring Unavailable CHAKRABORTY, YOAV B Primary Care Unavailable ALI, LEONID IMMANUEL Referring Unavailable CHAKRABORTY, YOAV B Primary Care Unavailable CHAKRABORTY, YOAV B Primary Care Unavailable ALI, LEONID IMMANUEL Referring Unavailable CHAKRABORTY, YOAV B Primary Care Unavailable ALI, LEONID IMMANUEL Attending Unavailable CHAKRABORTY, YOAV B Primary Care Unavailable ALI, LEONID IMMANUEL Attending Unavailable CHAKRABROTY, YOAV B Primary Care Unavailable ALI, LEONID IMMANUEL Referring Unavailable CHAKRABORTY, YOAV Horn Primary Care Unavailable ALI, LEONID IMMANUEL Referring Unavailable CHAKRABORTY, YOAV B Primary Care Unavailable ALI, LEONID IMMANUEL Referring Unavailable CHAKRABORTY, YOAV B Primary Care Unavailable CHAKRABORTY, YOAV B Primary Care Unavailable ALI, LEONID IMMANUEL Referring Unavailable ALI, LEONID IMMANUEL Attending Unavailable CHAKRABORTY, YOAV B Primary Care Unavailable ALI, LEONID IMMANUEL Referring Unavailable CHAKRABORTY, YOAV B Primary Care Unavailable CHAKRABORTY, YOAV B Primary Care Unavailable ALI, LEONID IMMANUEL Referring Unavailable ALI, LEONID IMMANUEL Referring Unavailable CHAKRABORTY, YOAV B Primary Care Unavailable CHAKRABORTY, YOAV B Primary Care Unavailable ALI, LEONID IMMANUEL Referring Unavailable CHAKRABORTY, YOAV B Primary Care Unavailable ALI, LEONID IMMANUEL Attending Unavailable CHAKRABORTY, YOAV B Primary Care Unavailable ALI, LEONID IMMANUEL Referring Unavailable Allergies Allergy Classification Reported Allergen(s) Allergy Type Date of Onset Reaction(s) Facility Macrolides (antibiotic) (5 sources) Azithromycin Drug Allergy 08-03-20 20 Swelling [facility] Work Phone: Opioid Agonists (10 sources) Propoxyphene Drug Allergy 12-09-19 12 Mental Status Change, Vomiting [facility] Penicillins (antibiotic) (5 sources) Penicillins Drug Allergy 02-16-20 08 [facility] Sulfonamides (antibiotic) (5 sources) Sulfonamides (Antibiotic) Drug Allergy 02-16-20 08 [facility] Tetracyclines (antibiotic) (5 sources) Oxytetracycline Drug Allergy 02-16-20 08 [facility] (20 sources) Azithromycin; Translations: [AZITHROMYCIN] Drug Allergy 08-03-20 20 Swelling [facility] Work Phone: (20 sources) Meperidine; Translations: [MEPERIDINE (PF)] Drug Allergy 12-09-19 12 Vomiting [facility] (20 sources) Oxytetracycline; Translations: [OXYTETRACYCLINE] Drug Allergy 02-16-20 08 swell,tingle [facility] (12 sources) Penicillins; Translations: [PENICILLINS] Propensity to adverse reactions 02-16-20 08 [facility] (20 sources) Propoxyphene; Translations: [PROPOXYPHENE] Drug Allergy 09-17-20 20 Mental Status Change [facility] (20 sources) Sulfonamides (Antibiotic); Translations: [SULFA (SULFONAMIDE ANTIBIOTICS)] Propensity to adverse reactions 02-16-20 08 [facility] (20 sources) Propoxyphene N-Acetaminophen; Translations: [PROPOXYPHENE N-ACETAMINOPHEN] Drug Intolerance 12-09-19 12 Mental Status Change [facility] (20 sources) Penicillins Propensity to adverse reactions 02-16-20 08 [facility] (7 sources) Acetaminophen Drug Allergy 08-05-20 22 hallucinations [facility] (8 sources) Meperidine Drug Allergy 08-05-20 numbness/vomitin g [facility] (8 sources) Penicillins Propensity to adverse reactions 08-05-20 22 swell,tingle [facility] (8 sources) Sulfonamides (Antibiotic) Propensity to adverse reactions 08-05-20 welts [facility] (1 source) Azithromycin Drug Allergy 01-12-20 24 [facility] (1 source) Meperidine Drug Allergy 01-12-20 24 [facility] (1 source) Oxytetracycline Drug Allergy 01-12-20 24 [facility] (1 source) Penicillins Drug allergy (disorder) 01-12-20 24 [facility] (1 source) Propoxyphene Drug Allergy 01-12-20 24 [facility] (1 source) Sulfonamides (Antibiotic) Drug allergy (disorder) 01-12-20 24 [facility] (9 sources) Penicillins Propensity to adverse reactions 02-16-20 08 [facility] Medications Current Medications Medication Drug Class(es) Dates Sig (Normalized) Sig (Original) acetaminophen 32 mg/ml oral solution (20 sources) Start: 01-17-2024 take 650 mg by mouth every six hours as needed Acetaminophen Active 650 MG PO EVERY 6 HOURS NEEDED 0 January 17, 2024 12:00am Start: 08-08-2020 take 2 tablets by mo uth every six hours as needed acetaminophen (TYLENOL) 325 mg tablet [The details of the medication are not available because there are pending changes by a home health clinician.] 08/08/2020 Active Start: 08-08-2020 take 2 tablets by mo uth every six hours as needed acetaminophen (TYLENOL) 325 mg tablet Take 2 tablets by mouth every 6 hours as needed. 0 08/08/2020 Active Comment on above: Take 2 tablets by mo uth every 6 hours as needed. amLODIPine 5 mg oral tablet (20 sources) Dihydropyridine Calcium Channel Isma Start: take 5 mg by mouth once daily Amlodipine Active 5 MG PO DAILY January 12, 2024 12:00am Start: 03-13-2023 take 1 tablet by [facility] twice daily amLODIPine (NORVASC) 5 mg tablet Take 1 tablet by mouth twice daily. 03/13/2023 Active Comment on above: Take 1 tablet by faith twice daily. apixaban 5 mg oral tablet (1 source) Factor Xa Inhibitor Start: 01-17-2024 take 1 tablet by mouth every 30 days Apixaban (Eliquis) 5 mg Tablet Active 2.5 MG PO TWICE A DAY January 17, 2024 12:00am for 60 doses (30 days) ascorbic acid 500 mg oral tablet (20 sources) Vitamin C Start: 02-18-2024 take 1 tablet by mouth once daily ascorbic acid, vitamin C, (VITAMIN C) 500 mg tablet Take 1 tablet by mouth once daily. 30 tablet 02/18/2024 Active citalopram 20 mg oral tablet (20 sources) Serotonin Reuptake Inhibitor Start: 02-18-2024 take 2 tablets by mouth once daily citalopram (CELEXA) 20 mg tablet Take 2 tablets by mouth once daily. 02/18/2024 Active Start: 02-18-2024 citalopram (CE ANA) 20 mg tablet [The details of the medication are not available because there are pending changes by a home health clinician.] 02/18/2024 Active Start: 01-12-2024 take 40 mg by mouth once daily Citalopram Active 40 MG PO DAILY January 12, 2024 12:00am Start: 03-14-2022 take 1 tablet by faith twice daily citalopram (CELEXA) 20 mg tablet Take 1 tablet by mouth twice daily. 60 tablet 3 03/14/2022 Active Start: 04-26-2021 End: 03-14-2022 take 1 tablet by mouth once daily citalopram (CELEXA) 20 mg tablet Take 1 tablet by mouth once daily. 90 tablet 2 04/26/2021 03/14/2022 Discontinued Comment on above: Take 1 tablet by faith once daily. Take 1 tablet by faith twice daily. cyclobenzaprine hydrochloride 5 mg oral tablet (20 sources) Muscle Relaxant Start: 02-23-20 take 1 tablet by mouth once daily cyclobenzaprine (FLEXERIL) 5 mg tablet Take 5 mg by mouth once daily. 02/23/2024 Active Start: 01-12-2024 take 5 mg by mouth at bedtime Cyclobenzaprine Active 5 MG PO AT BEDTIME January 12, 2024 12:00am enteric contrast (will be provided with radiology test) (1 source) Start: 05-10-2022 End: 05-11-2022 enteric contrast (will be provided with radiology test) For CT CHESTABD/PEL W IVCON Routine order Administer, As Directed One Time Only, via Oral, Rectal, both Oral and Rectal, Enteric Tube, Stoma or Indwelling Catheter, Enteric Contrast as designated per enteric contrast guidelines 1 Each 0 05/10/2022 05/11/2022 Active Comment on above: For CT CHESTABD/PEL W IVCON Routine order Administer, As Directed One Time Only, via Oral, Rectal, both Oral and Rectal, Enteric Tube, Stoma or Indwelling Catheter, Enteric Contrast as designated per enteric contrast guidelines 24 hr galantamine hydrobromide 24 mg extended release oral capsule (20 sources) Start: 03-08-2023 take 1 capsule by mouth once daily, then take 1 capsule by mouth every twenty-four hours Galantamine Hydrobromide (RAZADYNE) 24 mg 24 hr capsule Take 24 mg by mouth once daily. 03/08/2023 Active Start: 08-18-2022 take 1 capsule by [facility] once daily, then take 1 capsule by mouth every twenty-four hours galantamine ER (RAZADYNE) 8 mg 24 hr capsule Take 8 mg by mouth once daily. 0 08/18/2022 Active Comment on above: Take 8 mg by mouth o nce daily. Take 24 mg by mouth once daily. iv contrast (will be provided with radiology test) (1 source) Start: 05-10-20 End: 05-11-20 iv contrast (will be provided with radiology test) CT Chest ABD/PEL-Inject, intravenously, once for 1 dose.No IV access, insert saline lock prior to the beginning of sedation, infusion, injection of imaging exam. Discontinue saline lock post exam. If Pt. has a central line or IVAD, may access for administration according to line specific nursing protocol. Once exam is complete flush line and de-access according to line specific nursing protocol in the CT contrast administration guidelines link. 1 Each 0 05/10/2022 05/11/2022 Active Comment on above: CT Chest ABD/PEL-Inj ect, intravenously, once for 1 dose.No IV access, insert saline lock prior to the beginning of sedation, infusion, injection of imaging exam. Discontinue saline lock post exam. If Pt. has a central line or IVAD, may access for administration according to line specific nursing protocol. Once exam is complete flush line and de-access according to line specific nursing protocol in the CT contrast administration guidelines link. lisinopril 20 mg oral tablet (20 sources) Angiotensin Converting Enzyme Inhibitor Start: 03-14-20 End: 01-17-20 24 take 1 tablet by mouth once daily lisinopril (ZESTRIL) 20 mg tablet Take 1 tablet by mouth once daily. 03/14/2023 Active Start: 04-18-2022 take 0.5 tablet by m out once daily lisinopril (ZESTRIL, PRINIVIL) 20 mg tablet Take 0.5 tablets by mouth once daily. 0 04/18/2022 Active Start: 12-30-2016 Lisinopril (Ze stril) 40 MG tablet Active 20 MG PO DAILY December 30, 2016 12:00am Start: 12-30-2016 take 10 mg by mouth once daily Lisinopril (Zestril) 40 MG tablet Active 10 MG PO DAILY December 29, 2016 11:00pm End: 04-18-2022 take 1 tablet by mouth once daily lisinopril 20 mg tablet Take 20 mg by mouth once daily. 0 04/18/2022 Discontinued Comment on above: Take 20 mg by mouth once daily. Take 0.5 tablets by mouth once daily. Take 1 tablet by faith once daily. melatonin 3 mg oral tablet (20 sources) Start: 02-18-2024 take 3 tablets by mouth once daily at bedtime melatonin 3 mg tablet Take 3 tablets by mouth daily at bedtime. 90 tablet 02/18/2024 Active Start: 01-12-2024 take 10 mg by mouth at bedtime Melatonin Active 10 MG PO AT BEDTIME January 12, 2024 12:00am Start: 08-16-2022 take 1 tablet by faith th once daily at bedtime melatonin 3 mg tablet Take 3 mg by mouth daily at bedtime. 0 08/16/2022 Active Comment on above: Take 3 mg by mouth d aily at bedtime. memantine hydrochloride 10 mg oral tablet (20 sources) W-lzadld-Y-aspartate Receptor Antagonist Start: 01-12-2024 take 10 mg by mouth twice daily Memantine Active 10 MG PO TWICE A DAY January 12, 2024 12:00am Start: 05-11-2023 End: 01-12-2024 take 1 tablet by mouth once daily in the evening Memantine (Namenda) 10 mg tablet Discontinued 10 MG PO EVERY EVENING 90 90 May 11, 2023 12:00am January 12, 2024 4:50pm Comment on above: Take 10 mg by mouth twice daily. Menthol / Zinc Oxide (20 sources) Start: 02-23-2024 menthol/zinc oxide (CALMOSEPTINE TOPICAL) Apply 1 Application to affected area once daily. 02/23/2024 Active Start: 02-23-2024 menthol/zinc o xide (CALMOSEPTINE TOPICAL) Apply 1 Application to affected area once daily. 0 02/23/2024 Active nystatin 100 unt/mg topical powder (1 source) Polyene Antifungal Start: 01-17-2024 Nystatin (N yamyc) 100,000 unit/gram Powder Active 1 APPLIC TOPICAL TWICE A DAY 0 January 17, 2024 12:00am OLANZapine 5 mg oral tablet (20 sources) Atypical Antipsychotic Start: 08-05-2022 take 5 mg by mouth once daily Olanzapine Active 5 MG PO DAILY August 05, 2022 12:00am Start: 12-02-2021 End: 06-17-2022 take 1 tablet by mouth at bedtime as needed OLANZapine (ZYPREXA) 5 mg tablet Indications: Cancer of breast, intraductal, left , Bone metastasis Take 1 tablet by mouth at bedtime as needed. 30 tablet 1 04/18/2022 Active Comment on above: TAKE 1 TABLET BY FAITH TH AT BEDTIME NEEDED Take 1 tablet by faith th at bedtime as needed. Take 5 mg by mouth d aily at bedtime. oxybutynin chloride 5 mg oral tablet (20 sources) Cholinergic Muscarinic Antagonist Start: 02-18-2024 take 1 tablet by mouth once daily oxybutynin (DITROPAN) 5 mg tablet Take 1 tablet by mouth once daily. 30 tablet 02/18/2024 Active Start: 08-05-2022 take 1 tablet by faith twice daily oxybutynin (DITROPAN) 5 mg tablet Take 5 mg by mouth twice daily. 0 08/16/2022 Active Comment on above: Take 5 mg by mouth t wice daily. divalproex sodium 125 mg delayed release oral tablet (20 sources) Mood Stabilizer, Anti-epileptic Agent Start: 02-23-2024 take 1 tablet by mouth twice daily divalproex DR (DEPAKOTE) 125 mg EC tablet Take 125 mg by mouth two times a day. 02/23/2024 Active Start: 08-16-2022 take 1 capsule by mo [facility] twice daily divalproex sprinkle (DEPAKOTE SPRINKLES) 125 mg capsule Take 125 mg by mouth twice daily. 0 08/16/2022 Active Comment on above: Take 125 mg by mouth twice daily. Completed/Discontinued Medications Medication Drug Class(es) Dates Sig (Normalized) Sig (Original) acetaminophen 325 mg / HYDROcodone bitartrate 5 mg oral tablet (8 sources) Opioid Agonist Start: 12-30-2016 End: 03-18-2017 take 1 tablet by mouth three times daily Hydrocodone-Aceta minophen (Powell 5-325 Tablet) 1 EACH tablet Discontinued 1 TABLET PO THREE TIMES A DAY December 30, 2016 12:00am March 18, 2017 1:07pm aspirin 325 mg oral tablet (20 sources) Platelet Aggregation Inhibitor, Nonsteroidal Anti-inflammatory Drug Start: 12-30-2016 End: 01-12-2024 take 325 mg by mouth once daily Aspirin Discontinued 325 MG PO DAILY@0800 December 30, 2016 12:00am January 12, 2024 4:49pm Comment on above: Take 325 mg by mouth once daily. 12 hr buPROPion hydrochloride 150 mg extended release oral tablet (8 sources) Aminoketone Start: 12-30-2016 End: 01-12-2024 take 1 tablet by mouth once daily Bupropion Hcl (Wellbutrin Sr) 150 MG tablet sustained-release 12 hr Discontinued 150 MG PO DAILY December 30, 2016 12:00am January 12, 2024 4:49pm calcium carbonate 1250 mg / cholecalciferol 0.01 mg chewable tablet (8 sources) Vitamin D Start: 04-14-2017 End: 01-12-2024 Calcium Carbonate-Vitamin D3 (Calcium 500+D Tablet Chew) 1 EACH tablet,chewable Discontinued 1 TABLET PO DAILY April 14, 2017 12:00am January 12, 2024 4:49pm Calcium Carbonate / vitamin D3 (8 sources) Start: 12-30-2016 End: 03-18-2017 take 1 tablet by mouth once daily Calcium Carbonate/Vitamin D3 Discontinued 1 TABLET PO DAILY December 29, 2016 11:00pm March 18, 2017 12:07pm Start: 12-30-2016 End: 03-18-2017 take 1 tablet by mouth once daily Calcium Carbonate/Vitamin D3 Discontinued 1 TABLET PO DAILY December 30, 2016 12:00am March 18, 2017 1:07pm cholecalciferol 0.025 mg oral tablet (8 sources) Vitamin D Start: 12-30-2016 End: 03-18-2017 take 1 tablet by mouth once daily Cholecalciferol (Vitamin D3) (Vitamin D) 1,000 UNIT tablet Discontinued 1000 UNIT PO DAILY December 30, 2016 12:00am March 18, 2017 1:07pm clindamycin 300 mg oral capsule (6 sources) Lincosamide Antibacterial Start: 03-08-2023 End: 01-12-2024 take 300 mg by mouth three times daily Clindamycin Hcl Discontinued 300 MG PO THREE TIMES A DAY 9 March 08, 2023 12:00am January 12, 2024 4:49pm escitalopram 20 mg oral tablet (8 sources) Serotonin Reuptake Inhibitor Start: 03-18-2017 End: 01-12-2024 take 10 mg by mouth once daily Escitalopram Oxalate Discontinued 10 MG PO DAILY March 18, 2017 12:00am January 12, 2024 4:49pm 5 ml fulvestrant 50 mg/ml prefilled syringe (16 sources) Estrogen Receptor Antagonist Start: 06-15-2025 End: 06-15-2025 inject 1 dose by intramuscular injection once 500 mg, INTRAMUSCULAR, ONCE, 1 dose, On Kamila 06/15/25 at 0930, Hazardous Chemotherapy Drug: Use appropriate PPE. Refrigerate. Start: 04-14-2025 End: 04-14-2025 inject 1 dose by intramuscular injection once 500 mg, INTRAMUSCULAR, ONCE, 1 dose, On Thu04/14/25 at 0800, Hazardous Chemotherapy Drug: Use appropriate PPE. Refrigerate. Start: 03-17-2025 End: 03-17-2025 inject 1 dose by intramuscular injection once 500 mg, INTRAMUSCULAR, ONCE, 1 dose, On Thu03/17/25 at 0800, Hazardous Chemotherapy Drug: Use appropriate PPE. Refrigerate. Start: 02-17-2025 End: 02-17-2025 inject 1 dose by intramuscular injection once 500 mg, INTRAMUSCULAR, ONCE, 1 dose, On Thu02/17/25 at 0800, Hazardous Chemotherapy Drug: Use appropriate PPE. Refrigerate. Start: 01-20-2025 End: 01-20-2025 inject 1 dose by intramuscular injection once 500 mg, INTRAMUSCULAR, ONCE, 1 dose, On Thu01/20/25 at 0830, Hazardous Chemotherapy Drug: Use appropriate PPE. Refrigerate. Start: 12-23-2024 End: 12-23-2024 inject 1 dose by intramuscular injection once 500 mg, INTRAMUSCULAR, ONCE, 1 dose, On Thu12/23/24 at 0830, Hazardous Chemotherapy Drug: Use appropriate PPE. Refrigerate. Start: 11-25-2024 End: 11-25-2024 inject 1 dose by intramuscular injection once 500 mg, INTRAMUSCULAR, ONCE, 1 dose, On Thu11/25/24 at 0830, Hazardous Chemotherapy Drug: Use appropriate PPE. Refrigerate. Start: 10-24-2024 End: 10-24-2024 inject 1 dose by intramuscular injection once 500 mg, INTRAMUSCULAR, ONCE, 1 dose, On Thu10/24/24 at 0830, Hazardous Chemotherapy Drug: Use appropriate PPE. Refrigerate. Start: 09-21-2024 End: 09-21-2024 inject 1 dose by intramuscular injection once 500 mg, INTRAMUSCULAR, ONCE, 1 dose, On 09/21/24 at 0900, Hazardous Chemotherapy Drug: Use appropriate PPE. Refrigerate. Start: 08-22-2024 End: 08-22-2024 inject 1 dose by intramuscular injection once 500 mg, INTRAMUSCULAR, ONCE, 1 dose, On 08/22/24 at 0900, Hazardous Chemotherapy Drug: Use appropriate PPE. Refrigerate. Start: 07-22-2024 End: 07-22-2024 inject 1 dose by intramuscular injection once 500 mg, INTRAMUSCULAR, ONCE, 1 dose, On Thu07/22/24 at 0900, Hazardous Chemotherapy Drug: Use appropriate PPE. Refrigerate. Start: 06-22-2024 End: 06-22-2024 inject 1 dose by intramuscular injection once 500 mg, INTRAMUSCULAR, ONCE, 1 dose, On Thu06/22/24 at 0930, Hazardous Chemotherapy Drug: Use appropriate PPE. Refrigerate. Start: 05-27-2024 End: 05-27-2024 inject 1 dose by intramuscular injection once 500 mg, INTRAMUSCULAR, ONCE, 1 dose, On Thu05/27/24 at 1000, Hazardous Chemotherapy Drug: Use appropriate PPE. Refrigerate. Start: 04-29-2024 End: 04-29-2024 fulvestrant 500 mg injection (FASLODEX) Start: 04-01-2024 End: 04-01-2024 fulvestrant 500 mg injection (FASLODEX) Start: 03-04-2024 End: 03-04-2024 fulvestrant 500 mg injection (FASLODEX) hydroCHLOROthiazide 25 mg oral tablet (18 sources) Thiazide Diuretic Start: 12-30-2016 End: 01-12-2024 take 25 mg by mouth once daily Hydrochlorothiazide Discontinued 25 MG PO DAILY December 30, 2016 12:00am January 12, 2024 4:49pm Comment on above: Take 25 mg by mouth once daily. Iron (8 sources) Start: 11-24-2019 End: 01-12-2024 Iron Discontinued November 24, 2019 1:00am January 12, 2024 4:49pm OTC Iron Start: 11-24-2019 Iron Active Fe [place] 2019 12:00am OTC Iron Start: 11-24-2019 Iron Active Fe bruary 2019 1:00am OTC Iron meloxicam 15 mg oral tablet (19 sources) Nonsteroidal Anti-inflammatory Drug Start: 12-30-2016 End: 01-12-2024 take 1 tablet by mouth once daily Meloxicam (Mobic) 15 MG tablet Discontinued 15 MG PO DAILY December 30, 2016 12:00am January 12, 2024 4:49pm take 1 tablet by mouth once jane y meloxicam (MOBIC) 7.5 mg tablet Take 7.5 mg by mouth once daily. 0 Active Comment on above: Take 7.5 mg by mouth once daily. Multiple Vitamins (8 sources) Start: 12-30-2016 End: 03-18-2017 take 1 tablet by mouth once daily Multiple Vitamins Discontinued 1 TABLET PO DAILY December 29, 2016 11:00pm March 18, 2017 12:07pm Start: 12-30-2016 End: 03-18-2017 take 1 tablet by mouth once daily Multiple Vitamins Discontinued 1 TABLET PO DAILY December 30, 2016 12:00am March 18, 2017 1:07pm omeprazole 40 mg delayed release oral capsule (20 sources) Proton Pump Inhibitor Start: 12-30-2016 End: 01-12-2024 Omeprazole (Prilosec) 40 MG capsule Discontinued 20 MG PO DAILY December 30, 2016 12:00am January 12, 2024 4:49pm take 1 tablet by mouth once jane y Omeprazole Magnesium 20 mg tablet Take 20 mg by mouth once daily. 0 Active Comment on above: Take 20 mg by mouth once daily. ondansetron 8 mg disintegrating oral tablet (20 sources) Serotonin-3 Receptor Antagonist Start: 2 End: 4 take 8 mg by mouth every eight hours Ondansetron Discontinued 8 MG PO Q8H August 05, 2022 12:00am January 12, 2024 4:49pm Start: 03-18-2022 End: 07-07-2022 take 1 tablet by mouth every twelve hours as needed for nausea and vomiting ondansetron (ZOFRAN) 8 mg tablet Indications: Cancer of breast, intraductal, left , Bone metastasis TAKE 1 TABLET BY MOUTH EVERY 12 HOURS NEEDED FOR NAUSEA AND VOMITING 60 tablet 0 07/07/2022 Active Comment on above: TAKE 1 TABLET BY FAITH TH EVERY 12 HOURS NEEDED FOR NAUSEA AND VOMITING oxyCODONE hydrochloride 5 mg oral tablet (8 sources) Opioid Agonist Start: 9 End: 9 take 5 mg by mouth every six hours as needed Oxycodone Discontinued 5 MG PO EVERY 6 HOURS NEEDED 15 February 05, 2019 12:00am February 10, 2019 12:07am palbociclib 125 mg oral tablet (10 sources) Kinase Inhibitor Start: 1 End: 2 palbociclib (IBRANCE) 125 mg tablet Indications: Cancer of breast, intraductal, left Take 1 tablet (125 mg) by mouth once daily with or without food for 3 weeks on, followed by 1 week off. 21 tablet 6 08/16/2021 04/18/2022 Discontinued Comment on above: Take 1 tablet (125 m g) by mouth once daily with or without food for 3 weeks on, followed by 1 week off. solifenacin succinate 5 mg oral tablet (8 sources) Cholinergic Muscarinic Antagonist Start: 7 End: take 1 tablet by mouth twice daily Solifenacin (Vesicare) 5 MG tablet Discontinued 5 MG PO TWICE A DAY December 30, 2016 12:00am January 12, 2024 4:49pm Problems Active Problems Problem Classification Problem Date Documented Date Episodic/Chronic Cancer of breast (20 sources) Intraductal carcinoma in situ of left breast; Translations: [Intraductal carcinoma in situ of left breast] Onset: 08-16-2020 Chronic Cancer of breast (8 sources) History of malignant neoplasm of breast; Translations: [Personal history of malignant neoplasm of breast] 11-25-2018 Episodic Cancer; other and unspecified primary (1 source) History of cancer metastatic to bone; Translations: [Personal history of malignant neoplasm of other organs and systems] 06-22-2024 Episodic Cardiac dysrhythmias (3 sources) Atrial fibrillation; Translations: [Unspecified atrial fibrillation] Onset: 01-17-2024 01-13-2024 Chronic Delirium, dementia, and amnestic and other cognitive disorders (20 sources) Dementia; Translations: [Unspecified dementia without behavioral disturbance] Onset: 01-18-2024 01-18-2024 Chronic Essential hypertension (20 sources) Hypertensive disorder; Translations: [Essential (primary) hypertension] Onset: 08-03-2020 08-03-2020 Chronic Immunizations and screening for infectious disease (1 source) Needs influenza immunization; Translations: [Encounter for immunization] 08-07-2023 Episodic Maintenance chemotherapy; radiotherapy (1 source) Patient encounter status; Translations: [Encounter for antineoplastic immunotherapy] Chronic Open wounds of extremities (6 sources) Laceration of hand; Translations: [Laceration without foreign body of unspecified hand, initial encounter] 03-08-2023 Episodic Osteoporosis (10 sources) Osteoporosis; Translations: [Age-related osteoporosis without current pathological fracture] Onset: 01-17-2024 03-19-2017 Chronic Other aftercare (4 sources) Patient encounter status; Translations: [Other group home (current) drug therapy] Episodic Other aftercare (1 source) Encounter for other specified aftercare; Translations: [Aftercare] Onset: 01-17-2024 Episodic Other diseases of veins and lymphatics (8 sources) Lymphedema of upper limb; Translations: [Lymphedema, not elsewhere classified] 11-25-2017 Chronic Other nervous system disorders (20 sources) Walking disability; Translations: [Difficulty in walking, not elsewhere classified] Onset: 08-03-2020 08-03-2020 Chronic Other nutritional; endocrine; and metabolic disorders (20 sources) Obese class I; Translations: [Obesity, unspecified] Onset: 03-10-2023 03-10-2023 Chronic Secondary malignancies (10 sources) Secondary malignant neoplasm of bone; Translations: [Secondary malignant neoplasm of bone] Chronic Past or Other Problems Problem Classification Problem Date Documented Date Episodic/Chronic Acute and unspecified renal failure (20 sources) Acute injury of kidney; Translations: [Acute kidney failure, unspecified] Onset: 08-03-2020 Resolved: 01-29-2024 08-03-2020 Episodic Deficiency and other anemia (20 sources) Anemia; Translations: [Anemia, unspecified] Onset: 01-18-2024 01-18-2024 Episodic E Codes: Fall (20 sources) Fall; Translations: [Unspecified fall, initial encounter] Onset: 03-09-2023 03-09-2023 Episodic Fracture of neck of femur (hip) (4 sources) Intertrochanteric fracture; Translations: [Displaced intertrochanteric fracture of left femur, initial encounter for closed fracture] Onset: 01-17-2024 01-12-2024 Episodic Genitourinary symptoms and ill-defined conditions (20 sources) Retention of urine; Translations: [Retention of urine, unspecified] Onset: 01-18-2024 Resolved: 01-29-2024 01-29-2024 Episodic Malaise and fatigue (20 sources) Asthenia; Translations: [Weakness] Onset: 03-09-2023 03-09-2023 Episodic Other aftercare (20 sources) Follow-up status; Translations: [Encounter for other specified aftercare] Onset: 01-17-2024 Resolved: 02-18-2024 02-18-2024 Episodic Other injuries and conditions due to external causes (20 sources) Soft tissue injury; Translations: [Other injury of unspecified body region, initial encounter] Onset: 01-29-2024 01-29-2024 Episodic Other nervous system disorders (20 sources) Tremor; Translations: [Tremor, unspecified] Onset: 03-09-2023 03-09-2023 Episodic Other non-traumatic joint disorders (20 sources) Arthralgia of the pelvic region and thigh; Translations: [Pain in left hip] Onset: 08-03-2020 08-03-2020 Episodic Residual codes; unclassified (20 sources) History of operative procedure on hip; Translations: [Other specified postprocedural states] Onset: 01-18-2024 01-18-2024 Episodic Residual codes; unclassified (2 sources) 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+]; Translations: [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, estrogen receptor positive, unspecified laterality, unspecified site of breast (HCC)] Onset: 01-20-2025 Episodic Results Test Name Value Interpretation Reference Range Facility CBC W Auto Differential pane l (Bld)on 08-09-2025 Basophils (Bld) [#/Vol] 0.05 10*3/uL Normal <0.11 [facility] Comment on above: Order Comment: Hilary ocampo Type: BLOOD SPECIMEN Ordering Facility: [facility] Address: [address] [place] [address] Performed By: #### 5 7021-8 #### [facility] CLIA [id number] [address] [place] Basophils/100 WBC (Bld) 0.6 % Normal [facility] Comment on above: Order Comment: Justyni men Type: BLOOD SPECIMEN Ordering Facility: [facility] Address: [address] [place] [address] Performed By: #### 5 7021-8 #### [facility] CLIA [id number] [address] [place] Differential cell count method Nom (Bld) Auto Normal [facility] Comment on above: Order Comment: Hilary ocampo Type: BLOOD SPECIMEN Ordering Facility: [facility] Address: [address] [place] [address] Performed By: #### 5 7021-8 #### [facility] CLIA [id number] [address] [place] [address] [place] Eosinophils (Bld) [#/Vol] 0.08 10*3/uL Normal <0.46 [facility] Comment on above: Order Comment: Speci men Type: BLOOD SPECIMEN Ordering Facility: [facility] Address: [address] [place] [address] Performed By: #### 5 7021-8 #### [facility] CLIA [id number] [address] [place] Eosinophils/100 WBC (Bld) 1.0 % Normal [facility] Comment on above: Order Comment: Speci men Type: BLOOD SPECIMEN Ordering Facility: [facility] Address: [address] [place] [address] Performed By: #### 5 7021-8 #### [facility] CLIA [id number] [address] Erythrocyte distribution width (RBC) [Ratio] 13.3 % Normal 11.5-15.0 [facility] Comment on above: Order Comment: Speci men Type: BLOOD SPECIMEN Ordering Facility: [facility] Address: [address] [place] [address] Performed By: #### 5 7021-8 #### [facility] CLIA [id number] [address] Hematocrit (Bld) [Volume fraction] 40.5 % Normal 36.0-46.0 [facility] Comment on above: Order Comment: Speci men Type: BLOOD SPECIMEN Ordering Facility: [facility] Address: [address] [place] [address] Performed By: #### 5 7021-8 #### [facility] CLIA [id number] [address] Hemoglobin (Bld) [Mass/Vol] 12.7 g/dL Normal 11.5-15.5 [facility] Comment on above: Order Comment: Speci men Type: BLOOD SPECIMEN Ordering Facility: [facility] Address: [address] [place] [address] Performed By: #### 5 7021-8 #### [facility] CLIA [id number] [address] [place] [address] [place] Immature granulocytes (Bld) [#/Vol] 10*3/uL Normal <0.10 [facility] Comment on above: Order Comment: Speci men Type: BLOOD SPECIMEN Ordering Facility: [facility] Address: [address] [place] [address] Performed By: #### 5 7021-8 #### [facility] CLIA [id number] [address] [place] Immature granulocytes/100 WBC (Bld) 0.3 % Normal [facility] Comment on above: Order Comment: Speci men Type: BLOOD SPECIMEN Ordering Facility: [facility] Address: [address] [place] [address] Performed By: #### 5 7021-8 #### [facility] CLIA [id number] [address] [place] [address] [place] Lymphocytes (Bld) [#/Vol] 2.43 10*3/uL Normal 1.00-4.00 [facility] Comment on above: Order Comment: Speci men Type: BLOOD SPECIMEN Ordering Facility: [facility] Address: [address] [place] [address] Performed By: #### 5 7021-8 #### [facility] CLIA [id number] [address] Lymphocytes/100 WBC (Bld) 30.8 % Normal [facility] Comment on above: Order Comment: Speci men Type: BLOOD SPECIMEN Ordering Facility: [facility] Address: [address] [place] [address] Performed By: #### 5 7021-8 #### [facility] CLIA [id number] [address] [place] [address] [place] MCH (RBC) [Entitic mass] 31.7 pg Normal 26.0-34.0 [facility] Comment on above: Order Comment: Speci men Type: BLOOD SPECIMEN Ordering Facility: [facility] Address: [address] [place] [address] Performed By: #### 5 7021-8 #### [facility] CLIA [id number] [address] [place] [address] [place] MCHC (RBC) [Mass/Vol] 31.4 g/dL Normal 30.5-36.0 [facility] Comment on above: Order Comment: Speci men Type: BLOOD SPECIMEN Ordering Facility: [facility] Address: [address] [place] [address] Performed By: #### 5 7021-8 #### [facility] CLIA [id number] [address] [place] [address] [place] MCV (RBC) [Entitic vol] 101.0 fL High 80.0-100.0 [facility] Comment on above: Order Comment: Speci men Type: BLOOD SPECIMEN Ordering Facility: [facility] Address: [address] [place] [address] Performed By: #### 5 7021-8 #### [facility] CLIA [id number] [address] [place] [address] [place] Monocytes (Bld) [#/Vol] 0.58 10*3/uL Normal <0.87 [facility] Comment on above: Order Comment: Speci men Type: BLOOD SPECIMEN Ordering Facility: [facility] Address: [address] [place] [address] Performed By: #### 5 7021-8 #### [facility] CLIA [id number] [address] Monocytes/100 WBC (Bld) 7.4 % Normal [facility] Comment on above: Order Comment: Speci men Type: BLOOD SPECIMEN Ordering Facility: [facility] Address: [address] [place] [address] Performed By: #### 5 7021-8 #### [facility] CLIA [id number] [address] [place] [address] [place] Neutrophils (Bld) [#/Vol] 4.73 10*3/uL Normal 1.45-7.50 [facility] Comment on above: Order Comment: Speci men Type: BLOOD SPECIMEN Ordering Facility: [facility] Address: [address] [place] [address] Performed By: #### 5 7021-8 #### [facility] CLIA [id number] [address] Neutrophils/100 WBC (Bld) 59.9 % Normal [facility] Comment on above: Order Comment: Speci men Type: BLOOD SPECIMEN Ordering Facility: [facility] Address: [address] [place] [address] Performed By: #### 5 7021-8 #### [facility] CLIA [id number] [address] [place] [address] [place] Nucleated RBC (Bld) [#/Vol] 10*3/uL Normal <0.01 [facility] Comment on above: Order Comment: Speci men Type: BLOOD SPECIMEN Ordering Facility: [facility] Address: [address] [place] [address] Performed By: #### 5 7021-8 #### [facility] CLIA [id number] [address] [place] Nucleated RBC/100 WBC (Bld) [Ratio] 0.0 /100 WBC Normal [facility] Comment on above: Order Comment: Speci men Type: BLOOD SPECIMEN Ordering Facility: [facility] Address: [address] [place] [address] Performed By: #### 5 7021-8 #### [facility] CLIA [id number] [address] [place] Platelet mean volume (Bld) [Entitic vol] 11.2 fL Normal 9.0-12.7 [facility] Comment on above: Order Comment: Speci men Type: BLOOD SPECIMEN Ordering Facility: [facility] Address: [address] [place] [address] Performed By: #### 5 7021-8 #### [facility] CLIA [id number] [address] [place] [address] [place] Platelets (Bld) [#/Vol] 190 10*3/uL Normal 150-400 [facility] Comment on above: Order Comment: Speci men Type: BLOOD SPECIMEN Ordering Facility: [facility] Address: [address] [place] [address] Performed By: #### 5 7021-8 #### [facility] CLIA [id number] [address] [place] RBC (Bld) [#/Vol] 4.01 10*6/uL Normal 3.90-5.20 [facility] Comment on above: Order Comment: Speci men Type: BLOOD SPECIMEN Ordering Facility: [facility] Address: [address] [place] [address] Performed By: #### 5 7021-8 #### [facility] CLIA [id number] [address] OF [facility] WBC (Bld) [#/Vol] 7.89 10*3/uL Normal 3.70-11.00 [facility] Comment on above: Order Comment: Speci men Type: BLOOD SPECIMEN Ordering Facility: [facility] Address: [address] [place] [address] Performed By: #### 5 7021-8 #### [facility] CLIA [id number] [address] Comprehensive metabolic 2000 panelon 08-09-2025 Albumin [Mass/Vol] 3.8 g/dL Low 3.9-4.9 [facility] Comment on above: Order Comment: Speci men Type: BLOOD SPECIMEN Ordering Facility: [facility] Address: [address] [place] [address] Performed By: #### 2 4323-8 #### [facility] CLIA [id number] [address] [place] ALP [Catalytic activity/Vol] 134 U/L High 34-123 [facility] Comment on above: Order Comment: Speci men Type: BLOOD SPECIMEN Ordering Facility: [facility] Address: [address] [place] [address] Performed By: #### 2 4323-8 #### [facility] CLIA [id number] [address] ALT [Catalytic activity/Vol] 12 U/L Normal 7-38 [facility] Comment on above: Order Comment: Speci men Type: BLOOD SPECIMEN Ordering Facility: [facility] Address: [address] [place] [address] Performed By: #### 2 4323-8 #### [facility] CLIA [id number] [address] STATES OF [facility] Anion gap [Moles/Vol] 12 mmol/L Normal 8-15 [facility] Comment on above: Order Comment: Speci men Type: BLOOD SPECIMEN Ordering Facility: [facility] Address: [address] [place] [address] Performed By: #### 2 4323-8 #### [facility] CLIA [id number] [address] [place] AST [Catalytic activity/Vol] 20 U/L Normal 13-35 [facility] Comment on above: Order Comment: Speci men Type: BLOOD SPECIMEN Ordering Facility: [facility] Address: [address] [place] [address] Performed By: #### 2 4323-8 #### [facility] CLIA [id number] [address] [place] Bilirubin [Mass/Vol] 0.3 mg/dL Normal 0.2-1.3 [facility] Comment on above: Order Comment: Speci men Type: BLOOD SPECIMEN Ordering Facility: [facility] Address: [address] [place] [address] Performed By: #### 2 4323-8 #### [facility] CLIA [id number] [address] OF [facility] Calcium [Mass/Vol] 9.2 mg/dL Normal 8.5-10.2 [facility] Comment on above: Order Comment: Speci men Type: BLOOD SPECIMEN Ordering Facility: [facility] Address: [facility] [place] [address] Performed By: #### 2 4323-8 #### [facility] CLIA [id number] [address] [place] [facility] Chloride [Moles/Vol] 105 mmol/L Normal 98-107 [facility] Comment on above: Order Comment: Speci men Type: BLOOD SPECIMEN Ordering Facility: [facility] Address: [address] [place] [address] Performed By: #### 2 4323-8 #### [facility] CLIA [id number] [address] [place] [address] [place] CO2 [Moles/Vol] 25 mmol/L Normal 22-30 [facility] Comment on above: Order Comment: Hilary ocampo Type: BLOOD SPECIMEN Ordering Facility: [facility] Address: [address] [place] [address] Performed By: #### 2 4323-8 #### [facility] CLIA [id number] [address] [place] [address] [place] Creatinine [Mass/Vol] 1.14 mg/dL High 0.58-0.96 [facility] Comment on above: Order Comment: Hilary ocampo Type: BLOOD SPECIMEN Ordering Facility: [facility] Address: [address] [place] [address] Performed By: #### 2 4323-8 #### [facility] CLIA [id number] [address] [place] eGFRcr SerPlBld CKD-EPI 2020 48 mL/min/1.73m??? Low >=60 [facility] Comment on above: Order Comment: Hilary ocampo Type: BLOOD SPECIMEN Ordering Facility: [facility] Address: [address] [place] [address] Result Comment: Patience mated Glomerular Filtration Rate (eGFR) is calculated using the 2020 CKD-EPI creatinine equation. This equation utilizes serum creatinine, sex, and age as parameters. The creatinine assay has traceable calibration to isotope dilution-mass spectrometry. Refer to KDIGO guidelines for clinical interpretation. In patients with unstable renal function, e.g. those with acute kidney injury, the eGFR may not accurately reflect actual GFR. Performed By: #### 2 4323-8 #### [facility] CLIA [id number] [address] [place] [address] [place] Glucose [Mass/Vol] 98 mg/dL Normal 74-99 [facility] Comment on above: Order Comment: Hilary ocampo Type: BLOOD SPECIMEN Ordering Facility: [facility] Address: [address] [place] [address] Result Comment: The [place] Diabetes [employer] (ADA) provides guidance for cutoff values for fasting glucose and random glucose. The ADA defines fasting as no caloric intake for at least 8 hours. Fasting plasma glucose results between 100 to 125 mg/dL indicate increased risk for diabetes (prediabetes). Fasting plasma glucose results greater than or equal to 126 mg/dL meet the criteria for diagnosis of diabetes. In the absence of unequivocal hyperglycemia, results should be confirmed by repeat testing. In a patient with classic symptoms of hyperglycemia or hyperglycemic crisis, random plasma glucose results greater than or equal to 200 mg/dL meet the criteria for diagnosis of diabetes. Reference: Standards of Medical Care in Diabetes 2016, [place] [employer]. Diabetes Care. 2016.39(Suppl 1). Performed By: #### 2 4323-8 #### [facility] CLIA [id number] [address] [place] [address] [place] Potassium [Moles/Vol] 4.5 mmol/L Normal 3.7-5.1 [facility] Comment on above: Order Comment: Speci men Type: BLOOD SPECIMEN Ordering Facility: [facility] Address: [address] [place] [address] Performed By: #### 2 4323-8 #### [facility] CLIA [id number] [address] [place] [address] [place] Protein [Mass/Vol] 7.9 g/dL Normal 6.3-8.0 [facility] Comment on above: Order Comment: Speci men Type: BLOOD SPECIMEN Ordering Facility: [facility] Address: [address] [place] [address] Performed By: #### 2 4323-8 #### [facility] CLIA [id number] [address] [place] [address] [place] Sodium [Moles/Vol] 142 mmol/L Normal 136-144 [facility] Comment on above: Order Comment: Speci men Type: BLOOD SPECIMEN Ordering Facility: [facility] Address: [address] [place] [address] Performed By: #### 2 4323-8 #### [facility] CLIA [id number] [address] [place] [address] [place] Urea nitrogen [Mass/Vol] 24 mg/dL High 7-21 [facility] Comment on above: Order Comment: Speci men Type: BLOOD SPECIMEN Ordering Facility: [facility] Address: [address] [place] [address] Performed By: #### 2 4323-8 #### [facility] CLIA [id number] [address] [place] [address] [place] CBC W Auto Differential pane l (Bld)on 07-12-2025 Basophils (Bld) [#/Vol] 0.04 10*3/uL Normal <0.11 [facility] Comment on above: Order Comment: Speci men Type: BLOOD SPECIMEN Ordering Facility: [facility] Address: [address] [place] [address] Performed By: #### 5 7021-8 #### [facility] CLIA [id number] [address] [place] Basophils/100 WBC (Bld) 0.6 % Normal [facility] Comment on above: Order Comment: Speci men Type: BLOOD SPECIMEN Ordering Facility: [facility] Address: [address] [place] [address] Performed By: #### 5 7021-8 #### [facility] CLIA [id number] [address] [place] [address] [place] [facility] Differential cell count method Nom (Bld) Auto Normal [facility] Comment on above: Order Comment: Speci men Type: BLOOD SPECIMEN Ordering Facility: [facility] Address: [address] [place] [address] Performed By: #### 5 7021-8 #### [facility] CLIA [id number] [address] [place] [address] [place] Eosinophils (Bld) [#/Vol] 0.12 10*3/uL Normal <0.46 [facility] Comment on above: Order Comment: Speci men Type: BLOOD SPECIMEN Ordering Facility: [facility] Address: [address] [place] [address] Performed By: #### 5 7021-8 #### [facility] CLIA [id number] [address] [place] Eosinophils/100 WBC (Bld) 1.9 % Normal [facility] Comment on above: Order Comment: Speci men Type: BLOOD SPECIMEN Ordering Facility: [facility] Address: [address] [place] [address] Performed By: #### 5 7021-8 #### [facility] CLIA [id number] [address] [place] Erythrocyte distribution width (RBC) [Ratio] 13.6 % Normal 11.5-15.0 [facility] Comment on above: Order Comment: Speci men Type: BLOOD SPECIMEN Ordering Facility: [facility] Address: [address] [place] [address] Performed By: #### 5 7021-8 #### [facility] CLIA [id number] [address] [place] Hematocrit (Bld) [Volume fraction] 38.0 % Normal 36.0-46.0 [facility] Comment on above: Order Comment: Speci men Type: BLOOD SPECIMEN Ordering Facility: [facility] Address: [address] [place] [address] Performed By: #### 5 7021-8 #### [facility] CLIA [id number] [address] [place] Hemoglobin (Bld) [Mass/Vol] 12.2 g/dL Normal 11.5-15.5 [facility] Comment on above: Order Comment: Speci men Type: BLOOD SPECIMEN Ordering Facility: [facility] Address: [address] [place] [address] Performed By: #### 5 7021-8 #### [facility] CLIA [id number] [address] OF [facility] Immature granulocytes (Bld) [#/Vol] 0.03 10*3/uL Normal <0.10 [facility] Comment on above: Order Comment: Speci men Type: BLOOD SPECIMEN Ordering Facility: [facility] Address: [address] [place] [address] Performed By: #### 5 7021-8 #### [facility] CLIA [id number] [address] Immature granulocytes/100 WBC (Bld) 0.5 % Normal [facility] Comment on above: Order Comment: Speci men Type: BLOOD SPECIMEN Ordering Facility: [facility] Address: [address] [place] [address] Performed By: #### 5 7021-8 #### [facility] CLIA [id number] [address] Lymphocytes (Bld) [#/Vol] 2.05 10*3/uL Normal 1.00-4.00 [facility] Comment on above: Order Comment: Speci men Type: BLOOD SPECIMEN Ordering Facility: [facility] Address: [address] [place] [address] Performed By: #### 5 7021-8 #### [facility] CLIA [id number] [address] Lymphocytes/100 WBC (Bld) 32.1 % Normal [facility] Comment on above: Order Comment: Speci men Type: BLOOD SPECIMEN Ordering Facility: [facility] Address: [address] [place] [address] Performed By: #### 5 7021-8 #### [facility] CLIA [id number] [address] MCH (RBC) [Entitic mass] 32.0 pg Normal 26.0-34.0 [facility] Comment on above: Order Comment: Speci men Type: BLOOD SPECIMEN Ordering Facility: [facility] Address: [address] [place] [address] Performed By: #### 5 7021-8 #### [facility] CLIA [id number] [address] MCHC (RBC) [Mass/Vol] 32.1 g/dL Normal 30.5-36.0 [facility] Comment on above: Order Comment: Speci men Type: BLOOD SPECIMEN Ordering Facility: [facility] Address: [address] [place] [address] Performed By: #### 5 7021-8 #### [facility] CLIA [id number] [address] MCV (RBC) [Entitic vol] 99.7 fL Normal 80.0-100.0 [facility] Comment on above: Order Comment: Speci men Type: BLOOD SPECIMEN Ordering Facility: [facility] Address: [address] [place] [address] Performed By: #### 5 7021-8 #### [facility] CLIA [id number] 1000 [place] [address] [place] Monocytes (Bld) [#/Vol] 0.48 10*3/uL Normal <0.87 [facility] Comment on above: Order Comment: Speci men Type: BLOOD SPECIMEN Ordering Facility: [facility] Address: [address] [place] [address] Performed By: #### 5 7021-8 #### [facility] CLIA [id number] [address] [place] Monocytes/100 WBC (Bld) 7.5 % Normal [facility] Comment on above: Order Comment: Speci men Type: BLOOD SPECIMEN Ordering Facility: [facility] Address: [address] [place] [address] Performed By: #### 5 7021-8 #### [facility] CLIA [id number] [address] [place] [address] [place] Neutrophils (Bld) [#/Vol] 3.66 10*3/uL Normal 1.45-7.50 [facility] Comment on above: Order Comment: Speci men Type: BLOOD SPECIMEN Ordering Facility: [facility] Address: [address] [place] [address] Performed By: #### 5 7021-8 #### [facility] CLIA [id number] [address] [place] Neutrophils/100 WBC (Bld) 57.4 % Normal [facility] Comment on above: Order Comment: Speci men Type: BLOOD SPECIMEN Ordering Facility: [facility] Address: [address] [place] [address] Performed By: #### 5 7021-8 #### [facility] CLIA [id number] [address] [place] [address] [place] Nucleated RBC (Bld) [#/Vol] 10*3/uL Normal <0.01 [facility] Comment on above: Order Comment: Speci men Type: BLOOD SPECIMEN Ordering Facility: [facility] Address: [address] [place] [address] Performed By: #### 5 7021-8 #### [facility] CLIA [id number] [address] [place] [address] [place] Nucleated RBC/100 WBC (Bld) [Ratio] 0.0 /100 WBC Normal [facility] Comment on above: Order Comment: Speci men Type: BLOOD SPECIMEN Ordering Facility: [facility] Address: [address] [place] [address] Performed By: #### 5 7021-8 #### [facility] CLIA [id number] [address] [place] [address] [place] Platelet mean volume (Bld) [Entitic vol] 11.3 fL Normal 9.0-12.7 [facility] Comment on above: Order Comment: Speci men Type: BLOOD SPECIMEN Ordering Facility: [facility] Address: [address] [place] [address] Performed By: #### 5 7021-8 #### [facility] CLIA [id number] [address] [place] [address] [place] Platelets (Bld) [#/Vol] 185 10*3/uL Normal 150-400 [facility] Comment on above: Order Comment: Speci men Type: BLOOD SPECIMEN Ordering Facility: [facility] Address: [address] [place] [address] Performed By: #### 5 7021-8 #### [facility] CLIA [id number] [address] [place] [address] [place] RBC (Bld) [#/Vol] 3.81 10*6/uL Low 3.90-5.20 [facility] Comment on above: Order Comment: Speci men Type: BLOOD SPECIMEN Ordering Facility: [facility] Address: [address] [place] [address] Performed By: #### 5 7021-8 #### [facility] CLIA [id number] [address] [place] [address] [place] WBC (Bld) [#/Vol] 6.38 10*3/uL Normal 3.70-11.00 [facility] Comment on above: Order Comment: Speci men Type: BLOOD SPECIMEN Ordering Facility: [facility] Address: [address] [place] [address] Performed By: #### 5 7021-8 #### [facility] CLIA [id number] [address] [place] Comprehensive metabolic 2000 panelon 07-12-2025 Albumin [Mass/Vol] 3.8 g/dL Low 3.9-4.9 [facility] Comment on above: Order Comment: Speci men Type: BLOOD SPECIMEN Ordering Facility: [facility] Address: [address] [place] [address] Performed By: #### 5 7021-8 #### [facility] CLIA [id number] [address] ALP [Catalytic activity/Vol] 221 U/L High 34-123 [facility] Comment on above: Order Comment: Speci men Type: BLOOD SPECIMEN Ordering Facility: [facility] Address: [address] [place] [address] Performed By: #### 5 7021-8 #### [facility] CLIA [id number] [address] ALT [Catalytic activity/Vol] 26 U/L Normal 7-38 [facility] Comment on above: Order Comment: Speci men Type: BLOOD SPECIMEN Ordering Facility: [facility] Address: [address] [place] [address] Performed By: #### 5 7021-8 #### [facility] CLIA [id number] [address] Anion gap [Moles/Vol] 12 mmol/L Normal 8-15 [facility] Comment on above: Order Comment: Speci men Type: BLOOD SPECIMEN Ordering Facility: [facility] Address: [address] [place] [address] Performed By: #### 5 7021-8 #### [facility] CLIA [id number] [address] [place] [address] [place] AST [Catalytic activity/Vol] 34 U/L Normal 13-35 [facility] Comment on above: Order Comment: Speci men Type: BLOOD SPECIMEN Ordering Facility: [facility] Address: [address] [place] [address] Performed By: #### 5 7021-8 #### [facility] CLIA [id number] [address] [place] [address] [place] Bilirubin [Mass/Vol] 0.4 mg/dL Normal 0.2-1.3 [facility] Comment on above: Order Comment: Speci men Type: BLOOD SPECIMEN Ordering Facility: [facility] Address: [address] [place] [address] Performed By: #### 5 7021-8 #### [facility] CLIA [id number] [address] [place] [address] [place] Calcium [Mass/Vol] 9.2 mg/dL Normal 8.5-10.2 [facility] Comment on above: Order Comment: Speci men Type: BLOOD SPECIMEN Ordering Facility: [facility] Address: [address] [place] [address] Performed By: #### 5 7021-8 #### [facility] CLIA [id number] [address] [place] [address] [place] Chloride [Moles/Vol] 104 mmol/L Normal 98-107 [facility] Comment on above: Order Comment: Speci men Type: BLOOD SPECIMEN Ordering Facility: [facility] Address: [address] [place] [address] Performed By: #### 5 7021-8 #### [facility] CLIA [id number] [address] [place] [address] [place] CO2 [Moles/Vol] 26 mmol/L Normal 22-30 [facility] Comment on above: Order Comment: Speci men Type: BLOOD SPECIMEN Ordering Facility: [facility] Address: [address] [place] [address] Performed By: #### 5 7021-8 #### [facility] CLIA [id number] [address] [place] [address] [place] Creatinine [Mass/Vol] 1.24 mg/dL High 0.58-0.96 [facility] Comment on above: Order Comment: Hilary ocampo Type: BLOOD SPECIMEN Ordering Facility: [facility] Address: [address] [place] [address] Performed By: #### 5 7021-8 #### [facility] CLIA [id number] [address] [place] [address] [place] eGFRcr SerPlBld CKD-EPI 2020 43 mL/min/1.73m??? Low >=60 [facility] Comment on above: Order Comment: Hilary ocampo Type: BLOOD SPECIMEN Ordering Facility: [facility] Address: [address] [place] [address] Result Comment: Patience mated Glomerular Filtration Rate (eGFR) is calculated using the 2020 CKD-EPI creatinine equation. This equation utilizes serum creatinine, sex, and age as parameters. The creatinine assay has traceable calibration to isotope dilution-mass spectrometry. Refer to KDIGO guidelines for clinical interpretation. In patients with unstable renal function, e.g. those with acute kidney injury, the eGFR may not accurately reflect actual GFR. Performed By: #### 5 7021-8 #### [facility] CLIA [id number] [address] [place] [address] [place] Glucose [Mass/Vol] 86 mg/dL Normal 74-99 [facility] Comment on above: Order Comment: Hilray ocampo Type: BLOOD SPECIMEN Ordering Facility: [facility] Address: [address] [place] [address] Result Comment: The [place] Diabetes Association (ADA) provides guidance for cutoff values for fasting glucose and random glucose. The ADA defines fasting as no caloric intake for at least 8 hours. Fasting plasma glucose results between 100 to 125 mg/dL indicate increased risk for diabetes (prediabetes). Fasting plasma glucose results greater than or equal to 126 mg/dL meet the criteria for diagnosis of diabetes. In the absence of unequivocal hyperglycemia, results should be confirmed by repeat testing. In a patient with classic symptoms of hyperglycemia or hyperglycemic crisis, random plasma glucose results greater than or equal to 200 mg/dL meet the criteria for diagnosis of diabetes. Reference: Standards of Medical Care in Diabetes 2016, [place] [employer] Association. Diabetes Care. 2016.39(Suppl 1). Performed By: #### 5 7021-8 #### [facility] CLIA [id number] [address] Potassium [Moles/Vol] 4.3 mmol/L Normal 3.7-5.1 [facility] Comment on above: Order Comment: Hilary men Type: BLOOD SPECIMEN Ordering Facility: [facility] Address: [address] [place] [address] Performed By: #### 5 7021-8 #### [facility] CLIA [id number] [address] [place] Protein [Mass/Vol] 7.6 g/dL Normal 6.3-8.0 [facility] Comment on above: Order Comment: Justyni men Type: BLOOD SPECIMEN Ordering Facility: [facility] Address: [address] [place] [address] Performed By: #### 5 7021-8 #### [facility] CLIA [id number] [address] Sodium [Moles/Vol] 142 mmol/L Normal 136-144 [facility] Comment on above: Order Comment: Speci men Type: BLOOD SPECIMEN Ordering Facility: [facility] Address: [address] [place] [address] Performed By: #### 5 7021-8 #### [facility] CLIA [id number] [address] Urea nitrogen [Mass/Vol] 21 mg/dL Normal 7-21 [facility] Comment on above: Order Comment: Hilary men Type: BLOOD SPECIMEN Ordering Facility: [facility] Address: [address] [place] [address] Performed By: #### 5 7021-8 #### [facility] CLIA [id number] [address] OF [place] CNOVSPon 06-15-2025 CNOVSP Visit (SP) Office (HEMMED) JACKELYN BRADSHAW ([id number]) 1940 F Date Time Provider Department 06/15/25 9:20 AM LEONID GRAHAM During your visit today, we recorded the following information about you: Temperature Pulse Respiration Blood pressure 97.9 degrees 60/minute 16/minute 174/80 Weight 67.2 kg Leonid Graham MD 06/15/2025 5:18 PM Signed The patient is a 84-year-old female. Status post left-sided lumpectomy in 2006 for left-sided breast cancer. Received adjuvant chemotherapy followed by radiation followed by 5 years of Arimidex that was completed in 2012. 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 This was biopsied and found to be consistent with ER positive/99%, MI +90% and HER2 negative by IHC. The patient was diagnosed with relapse in 2019. A PET scan showed uptake in the right iliac bone near the SI joint, there is also some questionable bilateral hilar lymphadenopathy at that time. The patient was started on Faslodex along with palbociclib. Subsequently was given radiation to the area of solitary metastasis in the right iliac bone. We did palbociclib for a total of 2 years. Patient was having issues with excessive fatigue. No progression identified and hence decided to stop this and continue with the Faslodex. The patient has issues with dementia now. However is tolerating the Faslodex relatively well. Family has decided not to put her through CAT scans. The patient is currently doing relatively well. On Faslodex alone. No other acute issues. Physical Examination:BP 174/80 Pulse 60 Temp 36.6 ?C (97.9 ?F) Resp 16 Wt 67.2 kg (148 lb 2.4 oz) SpO2 98% BMI 26.24 kg/m? The patient was awake alert oriented. Didn't appear to be in acute distress. HEENT: No pallor, icterus, cyanosis, oral cavity shows no evidence of mucositis, lesions, or ulcers. Trachea midline. No JVD, carotid bruit, thyromegaly, cervical lymphadenopathy or supra-infraclavicular lymphadenopathy. CVS: S1-S2 heard no S3 no murmurs or pericardial rub. No peripheral edema. Lungs: Chest wall nontender. No dullness to percussion. Clear to auscultation bilaterally. No rhonchi or rales noted. No pleural rub or at it sounds noted. Abdomen: Normal inspection, nondistended no dilated veins. Soft nontender no organomegaly. No palpable masses noted. Hem/ Lymph: No peripheral lymphadenopathy or any palpable masses. Neuro Exam: High mental functions were normal. Cranial nerves II through XII are normal. No gross abnormality noted on sensory or motor system exam. Musculoskeletal: No joint deformities noted. No evidence of synovitis, swelling or tenderness in the joints or bursitis. Skin: No evidence to suggest any bruising, ecchymosis, petechiae and symptoms of hand-foot syndrome. Breast examination: Mass palpable in the inferior aspect of the left breast and earlier exam. No lymphadenopathy in the left axilla. Right breast normal inspection and palpation. Latest Reference Range AND Units 06/14/25 10:08 Sodium 136 - 144 mmol/L 141 Potassium 3.7 - 5.1 mmol/L 4.0 Chloride 98 - 107 mmol/L 105 CO2 22 - 30 mmol/L 25 BUN 7 - 21 mg/dL 22 (H) Creatinine 0.58 - 0.96 mg/dL 1.12 (H) Glucose 74 - 99 mg/dL 98 Protein, Total 6.3 - 8.0 g/dL 7.5 Calcium 8.5 - 10.2 mg/dL 9.1 Albumin 3.9 - 4.9 g/dL 3.6 (L) Bilirubin, Total 0.2 - 1.3 mg/dL 0.4 Alkaline Phosphatase 34 - 123 U/L 117 ALT 7 - 38 U/L 11 AST 13 - 35 U/L 14 Anion Gap 8 - 15 mmol/L 11 (H): Data is abnormally high (L): Data is abnormally low Latest Reference Range AND Units 06/14/25 10:08 WBC 3.70 - 11.00 k/uL 6.28 RBC 3.90 - 5.20 m/uL 3.99 Hemoglobin 11.5 - 15.5 g/dL 12.7 Hematocrit 36.0 - 46.0 % 38.7 Platelet Count 150 - 400 k/uL 205 MCV 80.0 - 100.0 fL 97.0 MCH 26.0 - 34.0 pg 31.8 MCHC 30.5 - 36.0 g/dL 32.8 MPV 9.0 - 12.7 fL 11.0 RDW-CV 11.5 - 15.0 % 13.2 DTYPE Auto Assesment 1. 84-year-old female with a diagnosis of metastatic breast cancer. Patient was treated with Faslodex and Ibrance for 2 years. No progression of disease identified. On single agent Faslodex alone. 2. Due to dementia decision was made not to scan the patient and continue with the Faslodex and do symptom management and assessment. 3. At this time her labs reviewed. Her LFTs normal. Alkaline phosphatase normal. No physical symptoms of progression noted. Continue with Faslodex. Leonid Graham MD Allergies As of Date: 06/15/2025 Noted Allergy Reaction AZITHROMYCIN 08/03/2020 7 - Swelling DARVOCET A500 (PROPOXYPHENE N-RONALD*12/09/2011 1 - Mental Status Change DARVON (PROPOXYPHENE) 09/17/2020 1 - Mental Status Change DEMEROL (MEPERIDINE (PF)) 12/09/2011 11 - Vomiting PENICILLINS 02/16/2008 SULFA (SULFONAMIDE ANTIBIOTICS) 02/16/2008 TERAMYCIN (OXYTETRACYCLINE) 02/16/2008 Date Reviewed: 06/15/2025 Reviewed b (more content not included)... Normal [facility] CBC W Auto Differential pane l (Bld)on 06-14-2025 Basophils (Bld) [#/Vol] 0.05 10*3/uL Normal <0.11 [facility] Comment on above: Order Comment: Speci men Type: BLOOD SPECIMEN Ordering Facility: [facility] Address: [address] [place] [address] Performed By: #### 5 7021-8 #### [facility] CLIA [id number] [address] [place] [address] [place] Basophils/100 WBC (Bld) 0.8 % Normal [facility] Comment on above: Order Comment: Speci men Type: BLOOD SPECIMEN Ordering Facility: [facility] Address: [address] [place] [address] Performed By: #### 5 7021-8 #### [facility] CLIA [id number] [address] [place] [address] [place] Differential cell count method Nom (Bld) Auto Normal [facility] Comment on above: Order Comment: Speci men Type: BLOOD SPECIMEN Ordering Facility: [facility] Address: [address] [place] [address] Performed By: #### 5 7021-8 #### [facility] CLIA [id number] [address] [place] [address] [place] Eosinophils (Bld) [#/Vol] 0.09 10*3/uL Normal <0.46 [facility] Comment on above: Order Comment: Speci men Type: BLOOD SPECIMEN Ordering Facility: [facility] Address: [address] [place] [address] Performed By: #### 5 7021-8 #### [facility] CLIA [id number] [address] Eosinophils/100 WBC (Bld) 1.4 % Normal [facility] Comment on above: Order Comment: Speci men Type: BLOOD SPECIMEN Ordering Facility: [facility] Address: [address] [place] [address] Performed By: #### 5 7021-8 #### [facility] CLIA [id number] [address] [place] Erythrocyte distribution width (RBC) [Ratio] 13.2 % Normal 11.5-15.0 [facility] Comment on above: Order Comment: Speci men Type: BLOOD SPECIMEN Ordering Facility: [facility] Address: [address] [place] [address] Performed By: #### 5 7021-8 #### [facility] CLIA [id number] [address] [place] Hematocrit (Bld) [Volume fraction] 38.7 % Normal 36.0-46.0 [facility] Comment on above: Order Comment: Speci men Type: BLOOD SPECIMEN Ordering Facility: [facility] Address: [address] [place] [address] Performed By: #### 5 7021-8 #### [facility] CLIA [id number] [address] [place] Hemoglobin (Bld) [Mass/Vol] 12.7 g/dL Normal 11.5-15.5 [facility] Comment on above: Order Comment: Speci men Type: BLOOD SPECIMEN Ordering Facility: [facility] Address: [address] [place] [address] Performed By: #### 5 7021-8 #### [facility] CLIA [id number] [address] [place] Immature granulocytes (Bld) [#/Vol] 10*3/uL Normal <0.10 [facility] Comment on above: Order Comment: Speci men Type: BLOOD SPECIMEN Ordering Facility: [facility] Address: [address] [place] [address] Performed By: #### 5 7021-8 #### [facility] CLIA [id number] [address] Immature granulocytes/100 WBC (Bld) 0.3 % Normal [facility] Comment on above: Order Comment: Speci men Type: BLOOD SPECIMEN Ordering Facility: [facility] Address: [address] [place] [address] Performed By: #### 5 7021-8 #### [facility] CLIA [id number] [address] [place] [address] [place] Lymphocytes (Bld) [#/Vol] 2.21 10*3/uL Normal 1.00-4.00 [facility] Comment on above: Order Comment: Speci men Type: BLOOD SPECIMEN Ordering Facility: [facility] Address: [address] [place] [address] Performed By: #### 5 7021-8 #### [facility] CLIA [id number] [address] Lymphocytes/100 WBC (Bld) 35.2 % Normal [facility] Comment on above: Order Comment: Speci men Type: BLOOD SPECIMEN Ordering Facility: [facility] Address: [address] [place] [address] Performed By: #### 5 7021-8 #### [facility] CLIA [id number] [address] [place] [address] [place] MCH (RBC) [Entitic mass] 31.8 pg Normal 26.0-34.0 [facility] Comment on above: Order Comment: Speci men Type: BLOOD SPECIMEN Ordering Facility: [facility] Address: [address] [place] [address] Performed By: #### 5 7021-8 #### [facility] CLIA [id number] [address] [place] [address] [place] MCHC (RBC) [Mass/Vol] 32.8 g/dL Normal 30.5-36.0 [facility] Comment on above: Order Comment: Speci men Type: BLOOD SPECIMEN Ordering Facility: [facility] Address: [address] [place] [address] Performed By: #### 5 7021-8 #### [facility] CLIA [id number] [address] [place] MCV (RBC) [Entitic vol] 97.0 fL Normal 80.0-100.0 [facility] Comment on above: Order Comment: Speci men Type: BLOOD SPECIMEN Ordering Facility: [facility] Address: [address] [place] [address] Performed By: #### 5 7021-8 #### [facility] CLIA [id number] [address] [place] [address] [place] Monocytes (Bld) [#/Vol] 0.44 10*3/uL Normal <0.87 [facility] Comment on above: Order Comment: Speci men Type: BLOOD SPECIMEN Ordering Facility: [facility] Address: [address] [place] [address] Performed By: #### 5 7021-8 #### [facility] CLIA [id number] [address] Monocytes/100 WBC (Bld) 7.0 % Normal [facility] Comment on above: Order Comment: Speci men Type: BLOOD SPECIMEN Ordering Facility: [facility] Address: [address] [place] [address] Performed By: #### 5 7021-8 #### [facility] CLIA [id number] [address] [place] [address] [place] [facility] [place] Neutrophils (Bld) [#/Vol] 3.47 10*3/uL Normal 1.45-7.50 [facility] Comment on above: Order Comment: Speci men Type: BLOOD SPECIMEN Ordering Facility: [facility] Address: [facility] [place] [address] Performed By: #### 5 7021-8 #### [facility] CLIA [id number] [address] [place] Neutrophils/100 WBC (Bld) 55.3 % Normal [facility] Comment on above: Order Comment: Speci men Type: BLOOD SPECIMEN Ordering Facility: [facility] Address: [address] [place] [address] Performed By: #### 5 7021-8 #### [facility] CLIA [id number] [address] [place] [address] [place] Nucleated RBC (Bld) [#/Vol] 10*3/uL Normal <0.01 [facility] Comment on above: Order Comment: Speci men Type: BLOOD SPECIMEN Ordering Facility: [facility] Address: [address] [place] [address] Performed By: #### 5 7021-8 #### [facility] CLIA [id number] [address] [place] Nucleated RBC/100 WBC (Bld) [Ratio] 0.0 /100 WBC Normal [facility] Comment on above: Order Comment: Speci men Type: BLOOD SPECIMEN Ordering Facility: [facility] Address: [address] [place] [address] Performed By: #### 5 7021-8 #### [facility] CLIA [id number] [address] [place] [address] [place] Platelet mean volume (Bld) [Entitic vol] 11.0 fL Normal 9.0-12.7 [facility] Comment on above: Order Comment: Speci men Type: BLOOD SPECIMEN Ordering Facility: [facility] Address: [address] [place] [address] Performed By: #### 5 7021-8 #### [facility] CLIA [id number] [address] [place] [address] [place] Platelets (Bld) [#/Vol] 205 10*3/uL Normal 150-400 [facility] Comment on above: Order Comment: Speci men Type: BLOOD SPECIMEN Ordering Facility: [facility] Address: [address] [place] [address] Performed By: #### 5 7021-8 #### [facility] CLIA [id number] [address] OF [facility] RBC (Bld) [#/Vol] 3.99 10*6/uL Normal 3.90-5.20 [facility] Comment on above: Order Comment: Speci men Type: BLOOD SPECIMEN Ordering Facility: [facility] Address: [address] [place] [address] Performed By: #### 5 7021-8 #### [facility] CLIA [id number] [address] WBC (Bld) [#/Vol] 6.28 10*3/uL Normal 3.70-11.00 [facility] Comment on above: Order Comment: Speci men Type: BLOOD SPECIMEN Ordering Facility: [facility] Address: [address] [place] [address] Performed By: #### 5 7021-8 #### [facility] CLIA [id number] [address] Comprehensive metabolic 2000 panelon 06-14-2025 Albumin [Mass/Vol] 3.6 g/dL Low 3.9-4.9 [facility] Comment on above: Order Comment: Speci men Type: BLOOD SPECIMEN Ordering Facility: [facility] Address: [address] [place] [address] Performed By: #### 2 4323-8 #### [facility] CLIA [id number] [address] ALP [Catalytic activity/Vol] 117 U/L Normal 34-123 [facility] Comment on above: Order Comment: Speci men Type: BLOOD SPECIMEN Ordering Facility: [facility] Address: [address] [place] [address] Performed By: #### 2 4323-8 #### [facility] CLIA [id number] [address] [place] [address] [place] ALT [Catalytic activity/Vol] 11 U/L Normal 7-38 [facility] Comment on above: Order Comment: Speci men Type: BLOOD SPECIMEN Ordering Facility: [facility] Address: [address] [place] [address] Performed By: #### 2 4323-8 #### [facility] CLIA [id number] [address] [place] [address] [place] Anion gap [Moles/Vol] 11 mmol/L Normal 8-15 [facility] Comment on above: Order Comment: Speci men Type: BLOOD SPECIMEN Ordering Facility: [facility] Address: [address] [place] [address] Performed By: #### 2 4323-8 #### [facility] CLIA [id number] [address] [place] AST [Catalytic activity/Vol] 14 U/L Normal 13-35 [facility] Comment on above: Order Comment: Speci men Type: BLOOD SPECIMEN Ordering Facility: [facility] Address: [address] [place] [address] Performed By: #### 2 4323-8 #### [facility] CLIA [id number] [address] [place] [address] [place] Bilirubin [Mass/Vol] 0.4 mg/dL Normal 0.2-1.3 [facility] Comment on above: Order Comment: Speci men Type: BLOOD SPECIMEN Ordering Facility: [facility] Address: [address] [place] [address] Performed By: #### 2 4323-8 #### [facility] CLIA [id number] [address] [place] Calcium [Mass/Vol] 9.1 mg/dL Normal 8.5-10.2 [facility] Comment on above: Order Comment: Speci men Type: BLOOD SPECIMEN Ordering Facility: [facility] Address: [address] [place] [address] Performed By: #### 2 4323-8 #### [facility] CLIA [id number] [address] [place] [address] [place] Chloride [Moles/Vol] 105 mmol/L Normal 98-107 [facility] Comment on above: Order Comment: Speci men Type: BLOOD SPECIMEN Ordering Facility: [facility] Address: [address] [place] [address] Performed By: #### 2 4323-8 #### [facility] CLIA [id number] [address] [place] [address] [place] CO2 [Moles/Vol] 25 mmol/L Normal 22-30 [facility] Comment on above: Order Comment: Speci men Type: BLOOD SPECIMEN Ordering Facility: [facility] Address: [address] [place] [address] Performed By: #### 2 4323-8 #### [facility] CLIA [id number] [address] [place] [address] [place] Creatinine [Mass/Vol] 1.12 mg/dL High 0.58-0.96 [facility] Comment on above: Order Comment: Speci men Type: BLOOD SPECIMEN Ordering Facility: [facility] Address: [address] [place] [address] Performed By: #### 2 4323-8 #### [facility] CLIA [id number] [address] [place] eGFRcr SerPlBld CKD-EPI 2020 49 mL/min/1.73m??? Low >=60 [facility] Comment on above: Order Comment: Speci men Type: BLOOD SPECIMEN Ordering Facility: [facility] Address: [address] [place] [address] Result Comment: Patience mated Glomerular Filtration Rate (eGFR) is calculated using the 2020 CKD-EPI creatinine equation. This equation utilizes serum creatinine, sex, and age as parameters. The creatinine assay has traceable calibration to isotope dilution-mass spectrometry. Refer to KDIGO guidelines for clinical interpretation. In patients with unstable renal function, e.g. those with acute kidney injury, the eGFR may not accurately reflect actual GFR. Performed By: #### 2 4323-8 #### [facility] CLIA [id number] [address] [place] [address] [place] Glucose [Mass/Vol] 98 mg/dL Normal 74-99 [facility] Comment on above: Order Comment: Speci men Type: BLOOD SPECIMEN Ordering Facility: [facility] Address: [address] [place], [place] [id number] Result Comment: The [place] Diabetes Association (ADA) provides guidance for cutoff values for fasting glucose and random glucose. The ADA defines fasting as no caloric intake for at least 8 hours. Fasting plasma glucose results between 100 to 125 mg/dL indicate increased risk for diabetes (prediabetes). Fasting plasma glucose results greater than or equal to 126 mg/dL meet the criteria for diagnosis of diabetes. In the absence of unequivocal hyperglycemia, results should be confirmed by repeat testing. In a patient with classic symptoms of hyperglycemia or hyperglycemic crisis, random plasma glucose results greater than or equal to 200 mg/dL meet the criteria for diagnosis of diabetes. Reference: Standards of Medical Care in Diabetes 2016, [place] Diabetes Association. Diabetes Care. 2016.39(Suppl 1). Performed By: #### 2 4323-8 #### [facility] CLIA [id number] [address] [place] [address] [place] Potassium [Moles/Vol] 4.0 mmol/L Normal 3.7-5.1 [facility] Comment on above: Order Comment: Hilray ocampo Type: BLOOD SPECIMEN Ordering Facility: [facility] Address: [address] [place] [address] Performed By: #### 2 4323-8 #### [facility] CLIA [id number] [address] [place] [address] [place] Protein [Mass/Vol] 7.5 g/dL Normal 6.3-8.0 [facility] Comment on above: Order Comment: Hilary ocampo Type: BLOOD SPECIMEN Ordering Facility: [facility] Address: [address] [place], [place] [address] Performed By: #### 2 4323-8 #### [facility] CLIA [id number] [address] [place] [address] [place] Sodium [Moles/Vol] 141 mmol/L Normal 136-144 [facility] Comment on above: Order Comment: Hilary ocampo Type: BLOOD SPECIMEN Ordering Facility: [facility] Address: [address] [id number] Performed By: #### 2 4323-8 #### [facility] CLIA [id number] [address] [place] [address] [place] Urea nitrogen [Mass/Vol] 22 mg/dL High 7-21 [facility] Comment on above: Order Comment: Speci men Type: BLOOD SPECIMEN Ordering Facility: [facility] Address: [address] [place] [address] Performed By: #### 2 4323-8 #### [facility] CLIA [id number] [address] [place] CNOVSPon 05-12-2025 CNOVSP Visit (SP) Office (HEMMED) JACKELYN BRADSHAW ([id number]) 1940 F Date Time Provider Department 05/12/25 9:40 AM LEONID GRAHAM HEMMED During your visit today, we recorded the following information about you: Leonid Graham MD 05/14/2025 3:55 PM Signed Apt was rescheduled. 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 - menthol/zinc oxide (CALMOSEPTINE TOPICAL) Apply 1 Application to affected area once daily. - divalproex DR (DEPAKOTE) 125 mg EC tablet Take 125 mg by mouth two times a day. - oxybutynin (DITROPAN) 5 mg tablet Take 1 tablet by mouth once daily. - melatonin 3 mg tablet Take 3 tablets by mouth daily at bedtime. - citalopram (CELEXA) 20 mg tablet Take 2 tablets by mouth once daily. - ascorbic acid, vitamin C, (VITAMIN C) 500 mg tablet Take 1 tablet by mouth once daily. - amLODIPine (NORVASC) 5 mg tablet Take 1 tablet by mouth twice daily. - lisinopril (ZESTRIL) 20 mg tablet Take 1 tablet by mouth once daily. - memantine (NAMENDA) 10 mg tablet Take 10 mg by mouth twice daily. - OLANZapine (ZYPREXA) 5 mg tablet Take 5 mg by mouth daily at bedtime. - Galantamine Hydrobromide (RAZADYNE) 24 mg 24 hr capsule Take 24 mg by mouth once daily. - acetaminophen (TYLENOL) 325 mg tablet Take 2 tablets by mouth every 6 hours as needed. Meds Comments as of 02/23/2024: 02/22 - no severe interactions noted Problem List As Of Date 05/12/2025 Noted Resolved HTN (hypertension) [I10] 08/03/2020 Impaired ambulation [R26.2] 08/03/2020 Acute kidney injury superimposed on CKD (HCC) *08/03/2020 01/29/2024 Pelvic joint pain, left [M25.552] 08/03/2020 Cancer of breast, intraductal, left [D05.12] 08/16/2020 Generalized weakness [R53.1] 03/09/2023 Fall [W19.XXXA] 03/09/2023 Tremors of nervous system [R25.1] 03/09/2023 Declining functional status [R53.81] 03/09/2023 Obesity, Class I, BMI 30-34.9 [E66.811] 03/10/2023 Aftercare [Z51.89] 01/17/2024 02/18/2024 Status post hip surgery [Z98.890] 01/18/2024 Dementia (HCC) [F03.90] 01/18/2024 Anemia [D64.9] 01/18/2024 Urinary retention [R33.9] 01/18/2024 01/29/2024 Deep tissue injury [T14.8XXA] 01/29/2024 Encounter Status:Closed by LEONID GRAHAM on 05/14/25 Normal [facility] CBC W Auto Differential pane l (Bld)on 05-11-2025 Basophils (Bld) [#/Vol] 0.04 10*3/uL Normal <0.11 [facility] Comment on above: Order Comment: Speci men Type: BLOOD SPECIMEN Ordering Facility: [facility] Address: [address] [place] [address] Performed By: #### 5 7021-8 #### [facility] CLIA [id number] [address] [place] [address] [place] Basophils/100 WBC (Bld) 0.5 % Normal [facility] Comment on above: Order Comment: Speci men Type: BLOOD SPECIMEN Ordering Facility: [facility] Address: [address] [place] [address] Performed By: #### 5 7021-8 #### [facility] CLIA [id number] [address] [place] [address] [place] Differential cell count method Nom (Bld) Auto Normal [facility] Comment on above: Order Comment: Speci men Type: BLOOD SPECIMEN Ordering Facility: [facility] Address: [address] [place] [address] Performed By: #### 5 7021-8 #### [facility] CLIA [id number] [address] [place] [address] [place] Eosinophils (Bld) [#/Vol] 0.13 10*3/uL Normal <0.46 [facility] Comment on above: Order Comment: Speci men Type: BLOOD SPECIMEN Ordering Facility: [facility] Address: [address] [place] [address] Performed By: #### 5 7021-8 #### [facility] CLIA [id number] [address] [place] [address] [place] Eosinophils/100 WBC (Bld) 1.5 % Normal [facility] Comment on above: Order Comment: Speci men Type: BLOOD SPECIMEN Ordering Facility: [facility] Address: [address] [place] [address] Performed By: #### 5 7021-8 #### [facility] CLIA [id number] [address] [place] Erythrocyte distribution width (RBC) [Ratio] 13.3 % Normal 11.5-15.0 [facility] Comment on above: Order Comment: Speci men Type: BLOOD SPECIMEN Ordering Facility: [facility] Address: [address] [place] [address] Performed By: #### 5 7021-8 #### [facility] CLIA [id number] [address] Hematocrit (Bld) [Volume fraction] 40.3 % Normal 36.0-46.0 [facility] Comment on above: Order Comment: Speci men Type: BLOOD SPECIMEN Ordering Facility: [facility] Address: [address] [place] [address] Performed By: #### 5 7021-8 #### [facility] CLIA [id number] [address] [place] Hemoglobin (Bld) [Mass/Vol] 12.7 g/dL Normal 11.5-15.5 [facility] Comment on above: Order Comment: Speci men Type: BLOOD SPECIMEN Ordering Facility: [facility] Address: [address] [place] [address] Performed By: #### 5 7021-8 #### [facility] CLIA [id number] [address] Immature granulocytes (Bld) [#/Vol] 10*3/uL Normal <0.10 [facility] Comment on above: Order Comment: Speci men Type: BLOOD SPECIMEN Ordering Facility: [facility] Address: [address] [place] [address] Performed By: #### 5 7021-8 #### [facility] CLIA [id number] [address] Immature granulocytes/100 WBC (Bld) 0.1 % Normal [facility] Comment on above: Order Comment: Speci men Type: BLOOD SPECIMEN Ordering Facility: [facility] Address: [address] [place] [address] Performed By: #### 5 7021-8 #### [facility] CLIA [id number] [address] Lymphocytes (Bld) [#/Vol] 2.92 10*3/uL Normal 1.00-4.00 [facility] Comment on above: Order Comment: Speci men Type: BLOOD SPECIMEN Ordering Facility: [facility] Address: [address] [place] [address] Performed By: #### 5 7021-8 #### [facility] CLIA [id number] [address] Lymphocytes/100 WBC (Bld) 33.8 % Normal [facility] Comment on above: Order Comment: Speci men Type: BLOOD SPECIMEN Ordering Facility: [facility] Address: [address] [place] [address] Performed By: #### 5 7021-8 #### [facility] CLIA [id number] [address] MCH (RBC) [Entitic mass] 31.7 pg Normal 26.0-34.0 [facility] Comment on above: Order Comment: Speci men Type: BLOOD SPECIMEN Ordering Facility: [facility] Address: [address] [place] [address] Performed By: #### 5 7021-8 #### [facility] CLIA [id number] [address] MCHC (RBC) [Mass/Vol] 31.5 g/dL Normal 30.5-36.0 [facility] Comment on above: Order Comment: Speci men Type: BLOOD SPECIMEN Ordering Facility: [facility] Address: [address] [place] [address] Performed By: #### 5 7021-8 #### [facility] CLIA [id number] [address] MCV (RBC) [Entitic vol] 100.5 fL High 80.0-100.0 [facility] Comment on above: Order Comment: Speci men Type: BLOOD SPECIMEN Ordering Facility: [facility] Address: [facility] [place] [address] Performed By: #### 5 7021-8 #### [facility] CLIA [id number] [address] [place] [address] [place] Monocytes (Bld) [#/Vol] 0.62 10*3/uL Normal <0.87 [facility] Comment on above: Order Comment: Speci men Type: BLOOD SPECIMEN Ordering Facility: [facility] Address: [address] [place] [address] Performed By: #### 5 7021-8 #### [facility] CLIA [id number] [address] Monocytes/100 WBC (Bld) 7.2 % Normal [facility] Comment on above: Order Comment: Speci men Type: BLOOD SPECIMEN Ordering Facility: [facility] Address: [address] [place] [address] Performed By: #### 5 7021-8 #### [facility] CLIA [id number] [address] [place] [address] [place] [facility] [place] Neutrophils (Bld) [#/Vol] 4.93 10*3/uL Normal 1.45-7.50 [facility] Comment on above: Order Comment: Speci men Type: BLOOD SPECIMEN Ordering Facility: [facility] Address: [address] [place] [address] Performed By: #### 5 7021-8 #### [facility] CLIA [id number] [address] [place] Neutrophils/100 WBC (Bld) 56.9 % Normal [facility] Comment on above: Order Comment: Speci men Type: BLOOD SPECIMEN Ordering Facility: [facility] Address: [address] [place] [address] Performed By: #### 5 7021-8 #### [facility] CLIA [id number] [address] [place] [address] [place] Nucleated RBC (Bld) [#/Vol] 10*3/uL Normal <0.01 [facility] Comment on above: Order Comment: Speci men Type: BLOOD SPECIMEN Ordering Facility: [facility] Address: [address] [place] [address] Performed By: #### 5 7021-8 #### [facility] CLIA [id number] [address] [place] [address] [place] Nucleated RBC/100 WBC (Bld) [Ratio] 0.0 /100 WBC Normal [facility] Comment on above: Order Comment: Speci men Type: BLOOD SPECIMEN Ordering Facility: [facility] Address: [address] [place] [address] Performed By: #### 5 7021-8 #### [facility] CLIA [id number] [address] [place] [address] [place] Platelet mean volume (Bld) [Entitic vol] 10.8 fL Normal 9.0-12.7 [facility] Comment on above: Order Comment: Speci men Type: BLOOD SPECIMEN Ordering Facility: [facility] Address: [address] [place] [address] Performed By: #### 5 7021-8 #### [facility] CLIA [id number] [address] [place] Platelets (Bld) [#/Vol] 217 10*3/uL Normal 150-400 [facility] Comment on above: Order Comment: Speci men Type: BLOOD SPECIMEN Ordering Facility: [facility] Address: [address] [place] [address] Performed By: #### 5 7021-8 #### [facility] CLIA [id number] [address] [place] [address] [place] RBC (Bld) [#/Vol] 4.01 10*6/uL Normal 3.90-5.20 [facility] Comment on above: Order Comment: Speci men Type: BLOOD SPECIMEN Ordering Facility: [facility] Address: [address] [place] [address] Performed By: #### 5 7021-8 #### [facility] CLIA [id number] [address] [place] [address] [place] WBC (Bld) [#/Vol] 8.65 10*3/uL Normal 3.70-11.00 [facility] Comment on above: Order Comment: Speci men Type: BLOOD SPECIMEN Ordering Facility: [facility] Address: [address] [place] [address] Performed By: #### 5 7021-8 #### [facility] CLIA [id number] [address] OF [facility] Comprehensive metabolic 2000 panelon 05-11-2025 Albumin [Mass/Vol] 3.9 g/dL Normal 3.9-4.9 [facility] Comment on above: Order Comment: Speci men Type: BLOOD SPECIMEN Ordering Facility: [facility] Address: [address] [place] [address] Performed By: #### 5 7021-8 #### [facility] CLIA [id number] [address] ALP [Catalytic activity/Vol] 137 U/L High 34-123 [facility] Comment on above: Order Comment: Speci men Type: BLOOD SPECIMEN Ordering Facility: [facility] Address: [address] [place] [address] Performed By: #### 5 7021-8 #### [facility] CLIA [id number] [address] ALT [Catalytic activity/Vol] 11 U/L Normal 7-38 [facility] Comment on above: Order Comment: Speci men Type: BLOOD SPECIMEN Ordering Facility: [facility] Address: [address] [place] [address] Performed By: #### 5 7021-8 #### [facility] CLIA [id number] [address] [place] Anion gap [Moles/Vol] 14 mmol/L Normal 8-15 [facility] Comment on above: Order Comment: Speci men Type: BLOOD SPECIMEN Ordering Facility: [facility] Address: [address] [place] [address] Performed By: #### 5 7021-8 #### [facility] CLIA [id number] [address] [place] [address] [place] AST [Catalytic activity/Vol] 16 U/L Normal 13-35 [facility] Comment on above: Order Comment: Speci men Type: BLOOD SPECIMEN Ordering Facility: [facility] Address: [address] [place] [address] Performed By: #### 5 7021-8 #### [facility] CLIA [id number] [address] [place] [address] [place] Bilirubin [Mass/Vol] 0.4 mg/dL Normal 0.2-1.3 [facility] Comment on above: Order Comment: Speci men Type: BLOOD SPECIMEN Ordering Facility: [facility] Address: [address] [place] [address] Performed By: #### 5 7021-8 #### [facility] CLIA [id number] [address] [place] Calcium [Mass/Vol] 9.3 mg/dL Normal 8.5-10.2 [facility] Comment on above: Order Comment: Speci men Type: BLOOD SPECIMEN Ordering Facility: [facility] Address: [address] [place] [address] Performed By: #### 5 7021-8 #### [facility] CLIA [id number] [address] [place] [address] [place] Chloride [Moles/Vol] 107 mmol/L Normal 98-107 [facility] Comment on above: Order Comment: Speci men Type: BLOOD SPECIMEN Ordering Facility: [facility] Address: [address] [place] [address] Performed By: #### 5 7021-8 #### [facility] CLIA [id number] [address] [place] [address] [place] CO2 [Moles/Vol] 23 mmol/L Normal 22-30 [facility] Comment on above: Order Comment: Speci men Type: BLOOD SPECIMEN Ordering Facility: [facility] Address: [address] [place] [address] Performed By: #### 5 7021-8 #### [facility] CLIA [id number] [address] [place] [address] [place] Creatinine [Mass/Vol] 1.18 mg/dL High 0.58-0.96 [facility] [facility] Comment on above: Order Comment: Hilary ocampo Type: BLOOD SPECIMEN Ordering Facility: [facility] Address: [address] [place] [address] Performed By: #### 5 7021-8 #### [facility] CLIA [id number] [address] [place] [address] [place] eGFRcr SerPlBld CKD-EPI 2020 46 mL/min/1.73m??? Low >=60 [facility] Comment on above: Order Comment: Justynisaías ocampo Type: BLOOD SPECIMEN Ordering Facility: [facility] Address: [address] [place] [address] Result Comment: Patience mated Glomerular Filtration Rate (eGFR) is calculated using the 2020 CKD-EPI creatinine equation. This equation utilizes serum creatinine, sex, and age as parameters. The creatinine assay has traceable calibration to isotope dilution-mass spectrometry. Refer to KDIGO guidelines for clinical interpretation. In patients with unstable renal function, e.g. those with acute kidney injury, the eGFR may not accurately reflect actual GFR. Performed By: #### 5 7021-8 #### [facility] CLIA [id number] [address] [place] [address] [place] Glucose [Mass/Vol] 93 mg/dL Normal 74-99 [facility] Comment on above: Order Comment: Hilary ocampo Type: BLOOD SPECIMEN Ordering Facility: [facility] Address: [address] [place] [address] Result Comment: The [place] Diabetes Association (ADA) provides guidance for cutoff values for fasting glucose and random glucose. The ADA defines fasting as no caloric intake for at least 8 hours. Fasting plasma glucose results between 100 to 125 mg/dL indicate increased risk for diabetes (prediabetes). Fasting plasma glucose results greater than or equal to 126 mg/dL meet the criteria for diagnosis of diabetes. In the absence of unequivocal hyperglycemia, results should be confirmed by repeat testing. In a patient with classic symptoms of hyperglycemia or hyperglycemic crisis, random plasma glucose results greater than or equal to 200 mg/dL meet the criteria for diagnosis of diabetes. Reference: Standards of Medical Care in Diabetes 2016, [place] [employer] Association. Diabetes Care. 2016.39(Suppl 1). Performed By: #### 5 7021-8 #### [facility] CLIA [id number] [address] Potassium [Moles/Vol] 4.1 mmol/L Normal 3.7-5.1 [facility] Comment on above: Order Comment: Hilary men Type: BLOOD SPECIMEN Ordering Facility: [facility] Address: [address] [place] [address] Performed By: #### 5 7021-8 #### [facility] CLIA [id number] [address] Protein [Mass/Vol] 7.5 g/dL Normal 6.3-8.0 [facility] Comment on above: Order Comment: Hilary ocampo Type: BLOOD SPECIMEN Ordering Facility: [facility] Address: [address] [place] [address] Performed By: #### 5 7021-8 #### [facility] CLIA [id number] [address] Sodium [Moles/Vol] 144 mmol/L Normal 136-144 [facility] Comment on above: Order Comment: Justyni men Type: BLOOD SPECIMEN Ordering Facility: [facility] Address: [address] [place] [address] Performed By: #### 5 7021-8 #### [facility] CLIA [id number] [address] Urea nitrogen [Mass/Vol] 35 mg/dL High 7-21 [facility] Comment on above: Order Comment: Hilary men Type: BLOOD SPECIMEN Ordering Facility: [facility] Address: [address] [place] [address] Performed By: #### 5 7021-8 #### [facility] CLIA [id number] [address] Oliver 04-13-2025 JOSE Telephone ([employer]) JACKELYN BRADSHAW ([id number]) 1940 F Date Time Provider Department 04/13/25 LEONID GRAHAM During your visit today, we recorded the following information about you: Julio Henry 04/13/2025 8:50 AM Signed Patients daughter called into the office. Daughter is asking for labs orders to be placed prior to her mothers injection appointment tomorrow on 04/14/2025. Julio Simms Jennifer R, ELISA.DRYING ROOM OPERATOR 04/13/2025 11:37 AM Signed Orders placed. Julio Henry 04/13/2025 11:42 AM Signed Spoke with daughter and let her know labs were placed. Verbalized understanding. 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 - menthol/zinc oxide (CALMOSEPTINE TOPICAL) Apply 1 Application to affected area once daily. - divalproex DR (DEPAKOTE) 125 mg EC tablet Take 125 mg by mouth two times a day. - oxybutynin (DITROPAN) 5 mg tablet Take 1 tablet by mouth once daily. - melatonin 3 mg tablet Take 3 tablets by mouth daily at bedtime. - citalopram (CELEXA) 20 mg tablet Take 2 tablets by mouth once daily. - ascorbic acid, vitamin C, (VITAMIN C) 500 mg tablet Take 1 tablet by mouth once daily. - amLODIPine (NORVASC) 5 mg tablet Take 1 tablet by mouth twice daily. - lisinopril (ZESTRIL) 20 mg tablet Take 1 tablet by mouth once daily. - memantine (NAMENDA) 10 mg tablet Take 10 mg by mouth twice daily. - OLANZapine (ZYPREXA) 5 mg tablet Take 5 mg by mouth daily at bedtime. - Galantamine Hydrobromide (RAZADYNE) 24 mg 24 hr capsule Take 24 mg by mouth once daily. - acetaminophen (TYLENOL) 325 mg tablet Take 2 tablets by mouth every 6 hours as needed. 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] 08/16/2020 Generalized weakness [R53.1] 03/09/2023 Fall [W19.XXXA] 03/09/2023 Tremors of nervous system [R25.1] 03/09/2023 Declining functional status [R53.81] 03/09/2023 Obesity, Class I, BMI 30-34.9 [E66.811] 03/10/2023 Aftercare [Z51.89] 01/17/2024 02/18/2024 Status post hip surgery [Z98.890] 01/18/2024 Dementia (HCC) [F03.90] 01/18/2024 Anemia [D64.9] 01/18/2024 Urinary retention [R33.9] 01/18/2024 01/29/2024 Deep tissue injury [T14.8XXA] 01/29/2024 Encounter Status:Closed by JULIO HENRY on 04/13/25 Normal [facility] CBC W Auto Differential pane l (Bld)on 03-16-2025 Basophils (Bld) [#/Vol] 0.04 10*3/uL Normal <0.11 [facility] Comment on above: Order Comment: Speci men Type: BLOOD SPECIMEN Ordering Facility: [facility] Address: [address] [place] [address] Performed By: #### 2 4323-8 #### [facility] CLIA [id number] [address] [place] [address] [place] Basophils/100 WBC (Bld) 0.5 % Normal [facility] Comment on above: Order Comment: Speci men Type: BLOOD SPECIMEN Ordering Facility: [facility] Address: [address] [place] [address] Performed By: #### 2 4323-8 #### [facility] CLIA [id number] [address] [place] [address] [place] Differential cell count method Nom (Bld) Auto Normal [facility] Comment on above: Order Comment: Speci men Type: BLOOD SPECIMEN Ordering Facility: [facility] Address: [address] [place] [address] Performed By: #### 2 4323-8 #### [facility] CLIA [id number] [address] [place] [address] [place] Eosinophils (Bld) [#/Vol] 0.13 10*3/uL Normal <0.46 [facility] Comment on above: Order Comment: Speci men Type: BLOOD SPECIMEN Ordering Facility: [facility] Address: [address] [place] [address] Performed By: #### 2 4323-8 #### [facility] CLIA [id number] [address] [place] [address] [place] Eosinophils/100 WBC (Bld) 1.8 % Normal [facility] Comment on above: Order Comment: Speci men Type: BLOOD SPECIMEN Ordering Facility: [facility] Address: [address] [place] [address] Performed By: #### 2 4323-8 #### [facility] CLIA [id number] [address] [place] Erythrocyte distribution width (RBC) [Ratio] 13.4 % Normal 11.5-15.0 [facility] Comment on above: Order Comment: Speci men Type: BLOOD SPECIMEN Ordering Facility: [facility] Address: [address] [place] [address] Performed By: #### 2 4323-8 #### [facility] CLIA [id number] [address] [place] Hematocrit (Bld) [Volume fraction] 37.7 % Normal 36.0-46.0 [facility] Comment on above: Order Comment: Speci men Type: BLOOD SPECIMEN Ordering Facility: [facility] Address: [address] [place] [address] Performed By: #### 2 4323-8 #### [facility] CLIA [id number] [address] [place] Hemoglobin (Bld) [Mass/Vol] 12.1 g/dL Normal 11.5-15.5 [facility] Comment on above: Order Comment: Speci men Type: BLOOD SPECIMEN Ordering Facility: [facility] Address: [address] [place] [address] Performed By: #### 2 4323-8 #### [facility] CLIA [id number] [address] [place] Immature granulocytes (Bld) [#/Vol] 0.03 10*3/uL Normal <0.10 [facility] Comment on above: Order Comment: Speci men Type: BLOOD SPECIMEN Ordering Facility: [facility] Address: [address] [place] [address] Performed By: #### 2 4323-8 #### [facility] CLIA [id number] [address] Immature granulocytes/100 WBC (Bld) 0.4 % Normal [facility] Comment on above: Order Comment: Speci men Type: BLOOD SPECIMEN Ordering Facility: [facility] Address: [address] [place] [address] Performed By: #### 2 4323-8 #### [facility] CLIA [id number] [address] [place] Lymphocytes (Bld) [#/Vol] 2.66 10*3/uL Normal 1.00-4.00 [facility] Comment on above: Order Comment: Speci men Type: BLOOD SPECIMEN Ordering Facility: [facility] Address: [address] [place] [address] Performed By: #### 2 4323-8 #### [facility] CLIA [id number] [address] Lymphocytes/100 WBC (Bld) 36.0 % Normal [facility] Comment on above: Order Comment: Speci men Type: BLOOD SPECIMEN Ordering Facility: [facility] Address: [address] [place] [address] Performed By: #### 2 4323-8 #### [facility] CLIA [id number] [address] MCH (RBC) [Entitic mass] 31.7 pg Normal 26.0-34.0 [facility] Comment on above: Order Comment: Speci men Type: BLOOD SPECIMEN Ordering Facility: [facility] Address: [address] [place] [address] Performed By: #### 2 4323-8 #### [facility] CLIA [id number] [address] [place] MCHC (RBC) [Mass/Vol] 32.1 g/dL Normal 30.5-36.0 [facility] Comment on above: Order Comment: Speci men Type: BLOOD SPECIMEN Ordering Facility: [facility] Address: [address] [place] [address] Performed By: #### 2 4323-8 #### [facility] CLIA [id number] [address] MCV (RBC) [Entitic vol] 98.7 fL Normal 80.0-100.0 [facility] Comment on above: Order Comment: Speci men Type: BLOOD SPECIMEN Ordering Facility: [facility] Address: [address] [place] [address] Performed By: #### 2 4323-8 #### [facility] CLIA [id number] [address] [place] [address] [place] Monocytes (Bld) [#/Vol] 0.57 10*3/uL Normal <0.87 [facility] Comment on above: Order Comment: Speci men Type: BLOOD SPECIMEN Ordering Facility: [facility] Address: [address] [place] [address] Performed By: #### 2 4323-8 #### [facility] CLIA [id number] [address] [place] [address] [place] Monocytes/100 WBC (Bld) 7.7 % Normal [facility] Comment on above: Order Comment: Speci men Type: BLOOD SPECIMEN Ordering Facility: [facility] Address: [address] [place] [address] Performed By: #### 2 4323-8 #### [facility] CLIA [id number] [address] [place] [address] [place] Neutrophils (Bld) [#/Vol] 3.96 10*3/uL Normal 1.45-7.50 [facility] Comment on above: Order Comment: Speci men Type: BLOOD SPECIMEN Ordering Facility: [facility] Address: [address] [place] [address] Performed By: #### 2 4323-8 #### [facility] CLIA [id number] [address] [place] Neutrophils/100 WBC (Bld) 53.6 % Normal [facility] Comment on above: Order Comment: Speci men Type: BLOOD SPECIMEN Ordering Facility: [facility] Address: [address] [place] [address] Performed By: #### 2 4323-8 #### [facility] CLIA [id number] [address] [place] [address] [place] Nucleated RBC (Bld) [#/Vol] 10*3/uL Normal <0.01 [facility] Comment on above: Order Comment: Speci men Type: BLOOD SPECIMEN Ordering Facility: [facility] Address: [address] [place] [address] Performed By: #### 2 4323-8 #### [facility] CLIA [id number] [address] [place] [address] [place] Nucleated RBC/100 WBC (Bld) [Ratio] 0.0 /100 WBC Normal [facility] Comment on above: Order Comment: Speci men Type: BLOOD SPECIMEN Ordering Facility: [facility] Address: [address] [place] [address] Performed By: #### 2 4323-8 #### [facility] CLIA [id number] [address] [place] [address] [place] Platelet mean volume (Bld) [Entitic vol] 10.7 fL Normal 9.0-12.7 [facility] Comment on above: Order Comment: Speci men Type: BLOOD SPECIMEN Ordering Facility: [facility] Address: [address] [place] [address] Performed By: #### 2 4323-8 #### [facility] CLIA [id number] [address] [place] Platelets (Bld) [#/Vol] 229 10*3/uL Normal 150-400 [facility] Comment on above: Order Comment: Speci men Type: BLOOD SPECIMEN Ordering Facility: [facility] Address: [address] [place] [address] Performed By: #### 2 4323-8 #### [facility] CLIA [id number] [address] [place] RBC (Bld) [#/Vol] 3.82 10*6/uL Low 3.90-5.20 [facility] Comment on above: Order Comment: Speci men Type: BLOOD SPECIMEN Ordering Facility: [facility] Address: [address] [place] [address] Performed By: #### 2 4323-8 #### [facility] CLIA [id number] [address] [place] WBC (Bld) [#/Vol] 7.39 10*3/uL Normal 3.70-11.00 [facility] Comment on above: Order Comment: Speci men Type: BLOOD SPECIMEN Ordering Facility: [facility] Address: [address] [place] [address] Performed By: #### 2 4323-8 #### [facility] CLIA [id number] [address] [place] [address] [place] [facility] [place] Comprehensive metabolic 2000 panelon 03-16-2025 Albumin [Mass/Vol] 3.6 g/dL Low 3.9-4.9 [facility] Comment on above: Order Comment: Speci men Type: BLOOD SPECIMEN Ordering Facility: [facility] Address: [address] [place] [address] Performed By: #### 5 7021-8 #### [facility] CLIA [id number] [address] [place] [address] [place] ALP [Catalytic activity/Vol] 183 U/L High 34-123 [facility] Comment on above: Order Comment: Speci men Type: BLOOD SPECIMEN Ordering Facility: [facility] Address: [address] [place] [address] Performed By: #### 5 7021-8 #### [facility] CLIA [id number] [address] [place] ALT [Catalytic activity/Vol] 19 U/L Normal 7-38 [facility] Comment on above: Order Comment: Speci men Type: BLOOD SPECIMEN Ordering Facility: [facility] Address: [address] [place] [address] Performed By: #### 5 7021-8 #### [facility] CLIA [id number] [address] Anion gap [Moles/Vol] 10 mmol/L Normal 8-15 [facility] Comment on above: Order Comment: Speci men Type: BLOOD SPECIMEN Ordering Facility: [facility] Address: [address] [place] [address] Performed By: #### 5 7021-8 #### [facility] CLIA [id number] [address] AST [Catalytic activity/Vol] 24 U/L Normal 13-35 [facility] Comment on above: Order Comment: Speci men Type: BLOOD SPECIMEN Ordering Facility: [facility] Address: [address] [place] [address] Performed By: #### 5 7021-8 #### [facility] CLIA [id number] [address] [place] [address] [place] Bilirubin [Mass/Vol] 0.4 mg/dL Normal 0.2-1.3 [facility] Comment on above: Order Comment: Speci men Type: BLOOD SPECIMEN Ordering Facility: [facility] Address: [address] [place] [address] Performed By: #### 5 7021-8 #### [facility] CLIA [id number] [address] [place] Calcium [Mass/Vol] 9.0 mg/dL Normal 8.5-10.2 [facility] Comment on above: Order Comment: Speci men Type: BLOOD SPECIMEN Ordering Facility: [facility] Address: [address] [place] [address] Performed By: #### 5 7021-8 #### [facility] CLIA [id number] [address] [place] Chloride [Moles/Vol] 106 mmol/L Normal 98-107 [facility] Comment on above: Order Comment: Speci men Type: BLOOD SPECIMEN Ordering Facility: [facility] Address: [address] [place] [address] Performed By: #### 5 7021-8 #### [facility] CLIA [id number] [address] [place] CO2 [Moles/Vol] 24 mmol/L Normal 22-30 [facility] Comment on above: Order Comment: Speci men Type: BLOOD SPECIMEN Ordering Facility: [facility] Address: [address] [place] [address] Performed By: #### 5 7021-8 #### [facility] CLIA [id number] [address] [place] Creatinine [Mass/Vol] 1.23 mg/dL High 0.58-0.96 [facility] Comment on above: Order Comment: Speci men Type: BLOOD SPECIMEN Ordering Facility: [facility] Address: [address] [place] [address] Performed By: #### 5 7021-8 #### [facility] CLIA [id number] [address] [place] [address] [place] Creatinine and Glomerular filtration rate.predicted panel (S/P/Bld) 43 mL/min/1.73m??? Low >=60 [facility] Comment on above: Order Comment: Hilary ocampo Type: BLOOD SPECIMEN Ordering Facility: [facility] Address: [address] [place] [address] Result Comment: Patience mated Glomerular Filtration Rate (eGFR) is calculated using the 2020 CKD-EPI creatinine equation. This equation utilizes serum creatinine, sex, and age as parameters. The creatinine assay has traceable calibration to isotope dilution-mass spectrometry. Refer to KDIGO guidelines for clinical interpretation. In patients with unstable renal function, e.g. those with acute kidney injury, the eGFR may not accurately reflect actual GFR. Performed By: #### 5 7021-8 #### [facility] CLIA [id number] [address] [place] [address] [place] Glucose [Mass/Vol] 92 mg/dL Normal 74-99 [facility] Comment on above: Order Comment: Hilary ocampo Type: BLOOD SPECIMEN Ordering Facility: [facility] Address: [address] [place] [address] Result Comment: The [place] Diabetes [employer] (ADA) provides guidance for cutoff values for fasting glucose and random glucose. The ADA defines fasting as no caloric intake for at least 8 hours. Fasting plasma glucose results between 100 to 125 mg/dL indicate increased risk for diabetes (prediabetes). Fasting plasma glucose results greater than or equal to 126 mg/dL meet the criteria for diagnosis of diabetes. In the absence of unequivocal hyperglycemia, results should be confirmed by repeat testing. In a patient with classic symptoms of hyperglycemia or hyperglycemic crisis, random plasma glucose results greater than or equal to 200 mg/dL meet the criteria for diagnosis of diabetes. Reference: Standards of Medical Care in Diabetes 2016, [place] [employer]. Diabetes Care. 2016.39(Suppl 1). Performed By: #### 5 7021-8 #### [facility] CLIA [id number] [address] [place] [address] [place] Potassium [Moles/Vol] 4.2 mmol/L Normal 3.7-5.1 [facility] Comment on above: Order Comment: Speci men Type: BLOOD SPECIMEN Ordering Facility: [facility] Address: [address] [place] [address] Performed By: #### 5 7021-8 #### [facility] CLIA [id number] [address] [place] [facility] Protein [Mass/Vol] 7.4 g/dL Normal 6.3-8.0 [facility] Comment on above: Order Comment: Speci men Type: BLOOD SPECIMEN Ordering Facility: [facility] Address: [address] [place] [address] Performed By: #### 5 7021-8 #### [facility] CLIA [id number] [address] Sodium [Moles/Vol] 140 mmol/L Normal 136-144 [facility] Comment on above: Order Comment: Speci men Type: BLOOD SPECIMEN Ordering Facility: [facility] Address: [address] [place] [address] Performed By: #### 5 7021-8 #### [facility] CLIA [id number] [address] [place] [facility] Urea nitrogen [Mass/Vol] 30 mg/dL High 7-21 [facility] Comment on above: Order Comment: Speci men Type: BLOOD SPECIMEN Ordering Facility: [facility] Address: [address] [place] [address] Performed By: #### 5 7021-8 #### [facility] CLIA [id number] [address] OF [facility] CBC W Auto Differential pane l (Bld)on 02-16-2025 Basophils (Bld) [#/Vol] 0.04 10*3/uL Normal <0.11 [facility] Comment on above: Order Comment: Speci men Type: BLOOD SPECIMEN Ordering Facility: [facility] Address: [address] [place] [address] Performed By: #### 2 4323-8 #### [facility] CLIA [id number] [address] Basophils/100 WBC (Bld) 0.5 % Normal [facility] Comment on above: Order Comment: Speci men Type: BLOOD SPECIMEN Ordering Facility: [facility] Address: [address] [place] [address] Performed By: #### 2 4323-8 #### [facility] CLIA [id number] [address] [place] [address] [place] Differential cell count method Nom (Bld) Auto Normal [facility] Comment on above: Order Comment: Speci men Type: BLOOD SPECIMEN Ordering Facility: [facility] Address: [address] [place] [address] Performed By: #### 2 4323-8 #### [facility] CLIA [id number] [address] [place] [address] [place] Eosinophils (Bld) [#/Vol] 0.10 10*3/uL Normal <0.46 [facility] Comment on above: Order Comment: Speci men Type: BLOOD SPECIMEN Ordering Facility: [facility] Address: [address] [place] [address] Performed By: #### 2 4323-8 #### [facility] CLIA [id number] [address] [place] [address] [place] Eosinophils/100 WBC (Bld) 1.2 % Normal [facility] Comment on above: Order Comment: Speci men Type: BLOOD SPECIMEN Ordering Facility: [facility] Address: [address] [place] [address] Performed By: #### 2 4323-8 #### [facility] CLIA [id number] [address] [place] Erythrocyte distribution width (RBC) [Ratio] 13.6 % Normal 11.5-15.0 [facility] Comment on above: Order Comment: Speci men Type: BLOOD SPECIMEN Ordering Facility: [facility] Address: [address] [place] [address] Performed By: #### 2 4323-8 #### [facility] CLIA [id number] 1000 [place] [address] [place] Hematocrit (Bld) [Volume fraction] 37.0 % Normal 36.0-46.0 [facility] Comment on above: Order Comment: Speci men Type: BLOOD SPECIMEN Ordering Facility: [facility] Address: [address] [place] [address] Performed By: #### 2 4323-8 #### [facility] CLIA [id number] [address] [place] Hemoglobin (Bld) [Mass/Vol] 12.0 g/dL Normal 11.5-15.5 [facility] Comment on above: Order Comment: Speci men Type: BLOOD SPECIMEN Ordering Facility: [facility] Address: [address] [place] [address] Performed By: #### 2 4323-8 #### [facility] CLIA [id number] 1000 [place] [address] [place] Immature granulocytes (Bld) [#/Vol] 0.03 10*3/uL Normal <0.10 [facility] Comment on above: Order Comment: Speci men Type: BLOOD SPECIMEN Ordering Facility: [facility] Address: [address] [place] [address] Performed By: #### 2 4323-8 #### [facility] CLIA [id number] [address] [place] Immature granulocytes/100 WBC (Bld) 0.4 % Normal [facility] Comment on above: Order Comment: Speci men Type: BLOOD SPECIMEN Ordering Facility: [facility] Address: [address] [place] [address] Performed By: #### 2 4323-8 #### [facility] CLIA [id number] 1000 [place] [address] [place] Lymphocytes (Bld) [#/Vol] 2.82 10*3/uL Normal 1.00-4.00 [facility] Comment on above: Order Comment: Speci men Type: BLOOD SPECIMEN Ordering Facility: [facility] Address: [address] [place] [address] Performed By: #### 2 4323-8 #### [facility] CLIA [id number] [address] [place] Lymphocytes/100 WBC (Bld) 35.0 % Normal [facility] Comment on above: Order Comment: Speci men Type: BLOOD SPECIMEN Ordering Facility: [facility] Address: [address] [place] [address] Performed By: #### 2 4323-8 #### [facility] CLIA [id number] [address] MCH (RBC) [Entitic mass] 31.7 pg Normal 26.0-34.0 [facility] Comment on above: Order Comment: Speci men Type: BLOOD SPECIMEN Ordering Facility: [facility] Address: [address] [place] [address] Performed By: #### 2 4323-8 #### [facility] CLIA [id number] [address] MCHC (RBC) [Mass/Vol] 32.4 g/dL Normal 30.5-36.0 [facility] Comment on above: Order Comment: Speci men Type: BLOOD SPECIMEN Ordering Facility: [facility] Address: [address] [place] [address] Performed By: #### 2 4323-8 #### [facility] CLIA [id number] [address] MCV (RBC) [Entitic vol] 97.6 fL Normal 80.0-100.0 [facility] Comment on above: Order Comment: Speci men Type: BLOOD SPECIMEN Ordering Facility: [facility] Address: [address] [place] [address] Performed By: #### 2 4323-8 #### [facility] CLIA [id number] [address] Monocytes (Bld) [#/Vol] 0.59 10*3/uL Normal <0.87 [facility] Comment on above: Order Comment: Speci men Type: BLOOD SPECIMEN Ordering Facility: [facility] Address: [address] [place] [address] Performed By: #### 2 4323-8 #### [facility] CLIA [id number] [address] Monocytes/100 WBC (Bld) 7.3 % Normal [facility] Comment on above: Order Comment: Speci men Type: BLOOD SPECIMEN Ordering Facility: [facility] Address: [address] [place] [address] Performed By: #### 2 4323-8 #### [facility] CLIA [id number] [address] [place] [address] [place] Neutrophils (Bld) [#/Vol] 4.47 10*3/uL Normal 1.45-7.50 [facility] Comment on above: Order Comment: Speci men Type: BLOOD SPECIMEN Ordering Facility: [facility] Address: [address] [place] [address] Performed By: #### 2 4323-8 #### [facility] CLIA [id number] [address] [place] Neutrophils/100 WBC (Bld) 55.6 % Normal [facility] Comment on above: Order Comment: Speci men Type: BLOOD SPECIMEN Ordering Facility: [facility] Address: [address] [place] [address] Performed By: #### 2 4323-8 #### [facility] CLIA [id number] [address] [place] [address] [place] Nucleated RBC (Bld) [#/Vol] 10*3/uL Normal <0.01 [facility] Comment on above: Order Comment: Speci men Type: BLOOD SPECIMEN Ordering Facility: [facility] Address: [address] [place] [address] Performed By: #### 2 4323-8 #### [facility] CLIA [id number] [address] [place] Nucleated RBC/100 WBC (Bld) [Ratio] 0.0 /100 WBC Normal [facility] Comment on above: Order Comment: Speci men Type: BLOOD SPECIMEN Ordering Facility: [facility] Address: [facility] [place] [address] Performed By: #### 2 4323-8 #### [facility] CLIA [id number] [address] [place] Platelet mean volume (Bld) [Entitic vol] 10.8 fL Normal 9.0-12.7 [facility] Comment on above: Order Comment: Speci men Type: BLOOD SPECIMEN Ordering Facility: [facility] Address: [address] [place] [address] Performed By: #### 2 4323-8 #### [facility] CLIA [id number] [address] OF [facility] Platelets (Bld) [#/Vol] 206 10*3/uL Normal 150-400 [facility] Comment on above: Order Comment: Speci men Type: BLOOD SPECIMEN Ordering Facility: [facility] Address: [address] [place] [address] Performed By: #### 2 4323-8 #### [facility] CLIA [id number] [address] [place] RBC (Bld) [#/Vol] 3.79 10*6/uL Low 3.90-5.20 [facility] Comment on above: Order Comment: Speci men Type: BLOOD SPECIMEN Ordering Facility: [facility] Address: [address] [place] [address] Performed By: #### 2 4323-8 #### [facility] CLIA [id number] [address] OF [facility] WBC (Bld) [#/Vol] 8.05 10*3/uL Normal 3.70-11.00 [facility] Comment on above: Order Comment: Speci men Type: BLOOD SPECIMEN Ordering Facility: [facility] Address: [address] [place] [address] Performed By: #### 2 4323-8 #### [facility] CLIA [id number] [address] Comprehensive metabolic 2000 panelon 02-16-2025 Albumin [Mass/Vol] 3.5 g/dL Low 3.9-4.9 [facility] Comment on above: Order Comment: Speci men Type: BLOOD SPECIMEN Ordering Facility: [facility] Address: [address] [place] [address] Performed By: #### 2 4323-8 #### [facility] CLIA [id number] [address] ALP [Catalytic activity/Vol] 108 U/L Normal 34-123 [facility] Comment on above: Order Comment: Speci men Type: BLOOD SPECIMEN Ordering Facility: [facility] Address: [address] [place] [address] Performed By: #### 2 4323-8 #### [facility] CLIA [id number] 1000 [place] [address] [place] ALT [Catalytic activity/Vol] 12 U/L Normal 7-38 [facility] Comment on above: Order Comment: Speci men Type: BLOOD SPECIMEN Ordering Facility: [facility] Address: [address] [place] [address] Performed By: #### 2 4323-8 #### [facility] CLIA [id number] [address] Anion gap [Moles/Vol] 11 mmol/L Normal 8-15 [facility] Comment on above: Order Comment: Speci men Type: BLOOD SPECIMEN Ordering Facility: [facility] Address: [address] [place] [address] Performed By: #### 2 4323-8 #### [facility] CLIA [id number] [address] AST [Catalytic activity/Vol] 17 U/L Normal 13-35 [facility] Comment on above: Order Comment: Speci men Type: BLOOD SPECIMEN Ordering Facility: [facility] Address: [address] [place] [address] Performed By: #### 2 4323-8 #### [facility] CLIA [id number] 1000 [place] [address] [place] Bilirubin [Mass/Vol] 0.3 mg/dL Normal 0.2-1.3 [facility] Comment on above: Order Comment: Speci men Type: BLOOD SPECIMEN Ordering Facility: [facility] Address: [address] [place] [address] Performed By: #### 2 4323-8 #### [facility] CLIA [id number] [address] [place] Calcium [Mass/Vol] 9.2 mg/dL Normal 8.5-10.2 [facility] Comment on above: Order Comment: Speci men Type: BLOOD SPECIMEN Ordering Facility: [facility] Address: [address] [place] [address] Performed By: #### 2 4323-8 #### [facility] CLIA [id number] [address] [place] [address] [place] Chloride [Moles/Vol] 105 mmol/L Normal 98-107 [facility] Comment on above: Order Comment: Speci men Type: BLOOD SPECIMEN Ordering Facility: [facility] Address: [address] [place] [address] Performed By: #### 2 4323-8 #### [facility] CLIA [id number] [address] [place] CO2 [Moles/Vol] 27 mmol/L Normal 22-30 [facility] Comment on above: Order Comment: Speci men Type: BLOOD SPECIMEN Ordering Facility: [facility] Address: [address] [place] [address] Performed By: #### 2 4323-8 #### [facility] CLIA [id number] [address] [place] [address] [place] Creatinine [Mass/Vol] 1.15 mg/dL High 0.58-0.96 [facility] Comment on above: Order Comment: Speci men Type: BLOOD SPECIMEN Ordering Facility: [facility] Address: [address] [place] [address] Performed By: #### 2 4323-8 #### [facility] CLIA [id number] [address] Creatinine and Glomerular filtration rate.predicted panel (S/P/Bld) 47 mL/min/1.73m??? Low >=60 [facility] Comment on above: Order Comment: Speci men Type: BLOOD SPECIMEN Ordering Facility: [facility] Address: [address] [place] [address] Result Comment: Patience mated Glomerular Filtration Rate (eGFR) is calculated using the 2020 CKD-EPI creatinine equation. This equation utilizes serum creatinine, sex, and age as parameters. The creatinine assay has traceable calibration to isotope dilution-mass spectrometry. Refer to KDIGO guidelines for clinical interpretation. In patients with unstable renal function, e.g. those with acute kidney injury, the eGFR may not accurately reflect actual GFR. Performed By: #### 2 4323-8 #### [facility] CLIA [id number] [address] [place] [address] [place] Glucose [Mass/Vol] 97 mg/dL Normal 74-99 [facility] Comment on above: Order Comment: Hilary ocampo Type: BLOOD SPECIMEN Ordering Facility: [facility] Address: [address] [place] [address] Result Comment: The [place] Diabetes Association (ADA) provides guidance for cutoff values for fasting glucose and random glucose. The ADA defines fasting as no caloric intake for at least 8 hours. Fasting plasma glucose results between 100 to 125 mg/dL indicate increased risk for diabetes (prediabetes). Fasting plasma glucose results greater than or equal to 126 mg/dL meet the criteria for diagnosis of diabetes. In the absence of unequivocal hyperglycemia, results should be confirmed by repeat testing. In a patient with classic symptoms of hyperglycemia or hyperglycemic crisis, random plasma glucose results greater than or equal to 200 mg/dL meet the criteria for diagnosis of diabetes. Reference: Standards of Medical Care in Diabetes 2016, [place] [employer] Association. Diabetes Care. 2016.39(Suppl 1). Performed By: #### 2 4323-8 #### [facility] CLIA [id number] [address] [place] [address] [place] Potassium [Moles/Vol] 3.8 mmol/L Normal 3.7-5.1 [facility] Comment on above: Order Comment: Hilary ocampo Type: BLOOD SPECIMEN Ordering Facility: [facility] Address: [address] [place] [address] Performed By: #### 2 4323-8 #### [facility] CLIA [id number] [address] [place] [address] [place] Protein [Mass/Vol] 7.1 g/dL Normal 6.3-8.0 [facility] Comment on above: Order Comment: Hilary ocampo Type: BLOOD SPECIMEN Ordering Facility: [facility] Address: [address] [place] [address] Performed By: #### 2 4323-8 #### [facility] CLIA [id number] [address] STATES OF [facility] Sodium [Moles/Vol] 143 mmol/L Normal 136-144 [facility] Comment on above: Order Comment: Speci men Type: BLOOD SPECIMEN Ordering Facility: [facility] Address: [address] [place] [address] Performed By: #### 2 4323-8 #### [facility] CLIA [id number] [address] [place] Urea nitrogen [Mass/Vol] 31 mg/dL High 7-21 [facility] Comment on above: Order Comment: Speci men Type: BLOOD SPECIMEN Ordering Facility: [facility] Address: [address] [place] [address] Performed By: #### 2 4323-8 #### [facility] CLIA [id number] [address] [place] CBC (INCLUDES DIFF/PLT)on Basophils (Bld) [#/Vol] 0.043 10*3/uL Normal 0-200 [facility] Comment on above: Performed By: #### 7 600, 6399, 98781 #### [facility] [place] [address] Lead Application Architect: Jhon Sheets MD Basophils/100 WBC (Bld) 0.5 % Normal [facility] Comment on above: Performed By: #### 7 600, 6399, 30822 #### [facility] [place] [address] Lead Application Architect: Jhon Sheets MD Eosinophils (Bld) [#/Vol] 0.068 10*3/uL Normal 15-500 [facility] Comment on above: Performed By: #### 7 600, 6399, 05152 #### [facility] [place] [address] Lead Application Architect: Jhon Sheets MD Eosinophils/100 WBC (Bld) 0.8 % Normal [facility] Comment on above: Performed By: #### 7 600, 6399, 88565 #### [facility] of [address], [address] [place] [address] Lead Application Architect: Jhon Sheets MD Erythrocyte distribution width (RBC) [Ratio] 13.2 % Normal 11.0-15.0 [facility] Comment on above: Performed By: #### 7 600, 6399, 86230 #### [facility] of [address], [address] [place] [address] Lead Application Architect: Jhon Sheets MD Hematocrit (Bld) [Volume fraction] 41.0 % Normal 35.0-45.0 [facility] Comment on above: Performed By: #### 7 600, 6399, 14577 #### [facility] of [place] [address] Lead Application Architect: Jhon Sheets MD Hemoglobin (Bld) [Mass/Vol] 13.4 g/dL Normal 11.7-15.5 [facility] Comment on above: Performed By: #### 7 600, 6399, 76328 #### [facility] of [place] [address] Lead Application Architect: Jhon Sheets MD Lymphocytes (Bld) [#/Vol] 2.363 10*3/uL Normal 850-3900 [facility] Comment on above: Performed By: #### 7 600, 6399, 17071 #### [facility] of [address], [address] [place] [address] Lead Application Architect: Jhon Sheets MD Lymphocytes/100 WBC (Bld) 27.8 % Normal [facility] Comment on above: Performed By: #### 7 600, 6399, 17509 #### [facility] of [place] [address] Lead Application Architect: Jhon Sheets MD MCH (RBC) [Entitic mass] 32.1 pg Normal 27.0-33.0 [facility] Comment on above: Performed By: #### 7 600, 6399, 82911 #### [facility] of [place] [address] Lead Application Architect: Jhon Sheets MD MCHC (RBC) [Mass/Vol] 32.7 g/dL Normal 32.0-36.[address] [facility] Comment on above: Result Comment: For adults, a slight decrease in the calculated MCHC value (in the range of 30 to 32 g/dL) is most likely not clinically significant; however, it should be interpreted with caution in correlation with other red cell parameters and the patient's clinical condition. Performed By: #### 7 600, 6399, 48491 #### [facility] [place] [address] Lead Application Architect: Jhon Sheets MD MCV (RBC) [Entitic vol] 98.3 fL Normal 80.0-100.0 [facility] Comment on above: Performed By: #### 7 600, 6399, 07932 #### [facility] [place] [address] Lead Application Architect: Jhon Sheets MD Monocytes (Bld) [#/Vol] 0.519 10*3/uL Normal 200-950 [facility] Comment on above: Performed By: #### 7 600, 6399, 53231 #### [facility] of [place] [address] Lead Application Architect: Jhon Sheets MD Monocytes/100 WBC (Bld) 6.1 % Normal [facility] Comment on above: Performed By: #### 7 600, 6399, 36341 #### [facility] of [place] [address] Lead Application Architect: Jhon Sheets MD Neutrophils (Bld) [#/Vol] 5.508 10*3/uL Normal 1671-2886 [facility] Comment on above: Performed By: #### 7 600, 6399, 60374 #### [facility] of [place] [address] Lead Application Architect: Jhon Sheets MD Neutrophils/100 WBC (Bld) 64.8 % Normal [facility] Comment on above: Performed By: #### 7 600, 6399, 02321 #### [facility] of [address], [address] [place] [address] Lead Application Architect: Jhon Sheets MD Platelet mean volume (Bld) [Entitic vol] 11.3 fL Normal 7.5-12.5 [facility] Comment on above: Performed By: #### 7 600, 6399, 82323 #### [facility] of [address], [address] [place] [address] Lead Application Architect: Jhon Sheets MD Platelets (Bld) [#/Vol] 252 10*3/uL Normal 140-400 [facility] Comment on above: Performed By: #### 7 600, 6399, 65882 #### [facility] of [place] [address] Lead Application Architect: Jhon Sheets MD RBC (Bld) [#/Vol] 4.17 10*6/uL Normal 3.80-5.10 [facility] Comment on above: Performed By: #### 7 600, 6399, 76535 #### [facility] of [place] [address] Lead Application Architect: Jhon Sheets MD WBC (Bld) [#/Vol] 8.5 10*3/uL Normal 3.8-10.8 [facility] Comment on above: Performed By: #### 7 600, 6399, 68751 #### [facility] of [place] [address] Lead Application Architect: Jhon Sheets MD COMPREHENSIVE METABOLIC PANE [facility] 02-08-2025 Albumin [Mass/Vol] 4.0 g/dL Normal 3.6-5.1 [facility] Comment on above: Performed By: #### 7 600, 6399, 27193 #### [facility] of [place] [address] Lead Application Architect: Jhon Sheets MD Albumin/Globulin [Mass ratio] 1.2 {ratio} Normal 1.0-2.5 [facility] Comment on above: Performed By: #### 7 600, 6399, 06557 #### [facility] of [address], [address] [place] [address] Lead Application Architect: Jhon Sheets MD ALP [Catalytic activity/Vol] 104 U/L Normal 37-153 [facility] Comment on above: Performed By: #### 7 600, 6399, 35779 #### [facility] of [address], [address] [place] [address] Lead Application Architect: Jhon Sheets MD ALT [Catalytic activity/Vol] 11 U/L Normal 6-29 [facility] Comment on above: Performed By: #### 7 600, 6399, 14914 #### [facility] of [address], [address] [place] [address] Lead Application Architect: Jhon Sheets MD AST [Catalytic activity/Vol] 16 U/L Normal 10-35 [facility] Comment on above: Performed By: #### 7 600, 6399, 84020 #### [facility] of [address], [address] [place] [address] Lead Application Architect: Jhon Sheets MD Bilirubin [Mass/Vol] 0.4 mg/dL Normal 0.2-1.2 [facility] Comment on above: Performed By: #### 7 600, 6399, 48918 #### [facility] of [place] [address] Lead Application Architect: Jhon Sheets MD Calcium [Mass/Vol] 9.2 mg/dL Normal 8.6-10.4 [facility] Comment on above: Performed By: #### 7 600, 6399, 49242 #### [facility] of [address], [address] [place] [address] Lead Application Architect: Jhon Sheets MD Chloride [Moles/Vol] 104 mmol/L Normal 98-110 [facility] Comment on above: Performed By: #### 7 600, 6399, 06266 #### [facility] of [place] [address] Lead Application Architect: Jhon Sheets MD CO2 [Moles/Vol] 25 mmol/L Normal 20-32 [facility] Comment on above: Performed By: #### 7 600, 6399, 37647 #### [facility] of [place] [address] Lead Application Architect: Jhon Sheets MD Creatinine [Mass/Vol] 1.24 mg/dL High 0.60-0.[address] [facility] Comment on above: Performed By: #### 7 600, 6399, 09898 #### [facility] of [address], [address] [place] [address] Lead Application Architect: Jhon Sheets MD GFR/1.73 sq M.predicted among non-blacks MDRD (S/P/Bld) [Vol rate/Area] 43 mL/min/{1.73_m2} Low > OR = 60 [facility] Comment on above: Performed By: #### 7 600, 6399, 70454 #### [facility] of [place] [address] Lead Application Architect: Jhon Sheets MD Globulin (S) [Mass/Vol] 3.3 g/dL Normal 1.9-3.7 [facility] Comment on above: Performed By: #### 7 600, 6399, 85338 #### [facility] of [place] [address] Lead Application Architect: Jhon Sheets MD Glucose [Mass/Vol] 96 mg/dL Normal 65-99 [facility] Comment on above: Result Comment: Fasting reference interval Performed By: #### 7 600, 6399, 01659 #### [facility] of [place] [address] Lead Application Architect: Jhon Sheets MD Potassium [Moles/Vol] 4.6 mmol/L Normal 3.5-5.[address] [facility] Comment on above: Performed By: #### 7 600, 6399, 20968 #### [facility] of [place] [address] Lead Application Architect: Jhon Sheets MD Protein [Mass/Vol] 7.3 g/dL Normal 6.1-8.1 [facility] Comment on above: Performed By: #### 7 600, 6399, 46295 #### [facility] of [address], [address] [place] [address] Lead Application Architect: Jhon Sheets MD Sodium [Moles/Vol] 141 mmol/L Normal 135-146 [facility] Comment on above: Performed By: #### 7 600, 6399, 24280 #### [facility] of [address], [address] [place] [address] Lead Application Architect: Jhon Sheets MD Urea nitrogen [Mass/Vol] 26 mg/dL High 7- [facility] Comment on above: Performed By: #### 7 600, 6399, 34114 #### [facility] of [address], [address] [place] [address] Lead Application Architect: Jhon Sheets MD Urea nitrogen/Creatinine [Mass ratio] 21 mg/mg Normal 6-22 [facility] Comment on above: Performed By: #### 7 600, 6399, 97631 #### [facility] of [address], [address] [place] [address] Lead Application Architect: Jhon Sheets MD LIPID PANEL, [facility] 05-0 Cholesterol [Mass/Vol] 193 mg/dL Normal <200 [facility] Comment on above: Order Comment: FASTI NG:YES FASTING: YES Performed By: #### 7 600, 6399, 03644 #### [facility] of [address], [address] [place] [address] Lead Application Architect: Jhon Sheets MD Cholesterol in HDL [Mass/Vol] 65 mg/dL Normal > OR = 50 [facility] Comment on above: Order Comment: FASTI NG:YES FASTING: YES Performed By: #### 7 600, 6399, 58660 #### [facility] of [address], [address] [place] [address] Lead Application Architect: Jhon Sheets MD Cholesterol in LDL [Mass/Vol] 108 mg/dL High [facility] Comment on above: Order Comment: FASTI NG:YES FASTING: YES Result Comment: Refe rence range: <100 Desirable range <100 mg/dL for primary prevention; <70 mg/dL for patients with CHD or diabetic patients with > or = 2 CHD risk factors. LDL-C is now calculated using the Esteban calculation, which is a validated novel method providing better accuracy than the Friedewald equation in the estimation of LDL-C. Jonny SS et al. WILMAN. 2013;310(45): 7745-2328 (http://education.[employer]/faq/XLY442) Performed By: #### 7 600, 6399, 38269 #### [facility] [address], [address] [place] [address] Lead Application Architect: Jhon Sheets MD Cholesterol.total/Sary sterol in HDL [Mass ratio] 3.0 {ratio} Normal <5.0 [facility] Comment on above: Order Comment: FASTI NG:YES FASTING: YES Performed By: #### 7 600, 6399, 64745 #### [facility] [address], [address] [place] [address] Lead Application Architect: Jhon Sheets MD NON HDL CHOLESTEROL 128 mg/dL (calc) Normal <130 [facility] Comment on above: Order Comment: FASTI NG:YES FASTING: YES Result Comment: For patients with diabetes plus 1 major ASCVD risk factor, treating to a non-HDL-C goal of <100 mg/dL (LDL-C of <70 mg/dL) is considered a therapeutic option. Performed By: #### 7 600, 6399, 90748 #### [facility] [address], [address] [place] [address] Lead Application Architect: Jhon Sheets MD Triglyceride [Mass/Vol] 104 mg/dL Normal <150 [facility] Comment on above: Order Comment: FASTI NG:YES FASTING: YES Performed By: #### 7 600, 6399, 56481 #### [facility] [address], [address] [place] [address] Lead Application Architect: Jhon Sheets MD CNOVSPon 01-20-2025 CNOVSP Visit (SP) Office (HEMMED) LEEANNJACKELYN Mani ([id number]) 1940 F Date Time Provider Department 01/20/25 9:00 AM LEONID GRAHAM HEMMED During your visit today, we recorded the following information about you: Temperature Pulse Respiration Blood pressure 97.9 degrees 62/minute 12/minute 168/70 Weight 71.4 kg Leonid Graham MD 01/20/2025 9:40 AM Signed The patient is a 84-year-old female. Status post left-sided lumpectomy in 2006 for left-sided breast cancer. Received adjuvant chemotherapy followed by radiation followed by 5 years of Arimidex that was completed in 2012. 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 This was biopsied and found to be consistent with ER positive/99%, MI +90% and HER2 negative by IHC. The patient was diagnosed with relapse in 2019. A PET scan showed uptake in the right iliac bone near the SI joint, there is also some questionable bilateral hilar lymphadenopathy at that time. The patient was started on Faslodex along with palbociclib. Subsequently was given radiation to the area of solitary metastasis in the right iliac bone. We did palbociclib for a total of 2 years. Patient was having issues with excessive fatigue. No progression identified and hence decided to stop this and continue with the Faslodex. The patient has issues with dementia now. However is tolerating the Faslodex relatively well. Family has decided not to put her through CAT scans. The patient is currently doing relatively well. On Faslodex alone. No other acute issues. Physical Examination:BP 168/70 Pulse 62 Temp 36.6 ?C (97.9 ?F) (Temporal) Resp 12 Wt 71.4 kg (157 lb 6.5 oz) SpO2 98% BMI 27.88 kg/m? The patient was awake alert oriented. Didn't appear to be in acute distress. HEENT: No pallor, icterus, cyanosis, oral cavity shows no evidence of mucositis, lesions, or ulcers. Trachea midline. No JVD, carotid bruit, thyromegaly, cervical lymphadenopathy or supra-infraclavicular lymphadenopathy. CVS: S1-S2 heard no S3 no murmurs or pericardial rub. No peripheral edema. Lungs: Chest wall nontender. No dullness to percussion. Clear to auscultation bilaterally. No rhonchi or rales noted. No pleural rub or at it sounds noted. Abdomen: Normal inspection, nondistended no dilated veins. Soft nontender no organomegaly. No palpable masses noted. Hem/ Lymph: No peripheral lymphadenopathy or any palpable masses. Neuro Exam: High mental functions were normal. Cranial nerves II through XII are normal. No gross abnormality noted on sensory or motor system exam. Musculoskeletal: No joint deformities noted. No evidence of synovitis, swelling or tenderness in the joints or bursitis. Skin: No evidence to suggest any bruising, ecchymosis, petechiae and symptoms of hand-foot syndrome. Breast examination deferred. Latest Reference Range AND Units 01/19/25 07:51 Sodium 136 - 144 mmol/L 143 Potassium 3.7 - 5.1 mmol/L 4.3 Chloride 98 - 107 mmol/L 106 CO2 22 - 30 mmol/L 26 BUN 7 - 21 mg/dL 19 Creatinine 0.58 - 0.96 mg/dL 1.04 (H) Glucose 74 - 99 mg/dL 88 Protein, Total 6.3 - 8.0 g/dL 6.8 Calcium 8.5 - 10.2 mg/dL 9.3 Albumin 3.9 - 4.9 g/dL 3.5 (L) Bilirubin, Total 0.2 - 1.3 mg/dL 0.3 Alkaline Phosphatase 34 - 123 U/L 122 ALT 7 - 38 U/L 13 AST 13 - 35 U/L 18 Anion Gap 8 - 15 mmol/L 11 (H): Data is abnormally high Latest Reference Range AND Units 01/19/25 07:51 WBC 3.70 - 11.00 k/uL 7.90 RBC 3.90 - 5.20 m/uL 3.94 Hemoglobin 11.5 - 15.5 g/dL 12.5 Hematocrit 36.0 - 46.0 % 39.0 Platelet Count 150 - 400 k/uL 226 MCV 80.0 - 100.0 fL 99.0 MCH 26.0 - 34.0 pg 31.7 MCHC 30.5 - 36.0 g/dL 32.1 MPV 9.0 - 12.7 fL 11.0 RDW-CV 11.5 - 15.0 % 13.5 DTYPE Auto Neut% % 53.8 Abs Neut (ANC) 1.45 - 7.50 k/uL 4.25 (L): Data is abnormally low Assesment 1. 83-year-old female with a diagnosis of metastatic breast cancer. Patient was treated with Faslodex and Ibrance for 2 years. No progression of disease identified. On single agent Faslodex alone. 2. Due to dementia decision was made not to scan the patient and continue with the Faslodex and do symptom management and assessment. 3. At this time her labs reviewed. Her LFTs normal. Alkaline phosphatase normal. No physical symptoms of progression noted. Continue with Faslodex. Leonid Graham MD Allergies As of Date: 01/20/2025 Noted Allergy Reaction AZITHROMYCIN 08/03/2020 7 - Swelling DARVOCET A500 (PROPOXYPHENE N-RONALD*12/09/2011 1 - Mental Status Change DARVON (PROPOXYPHENE) 09/17/2020 1 - Mental Status Change DEMEROL (MEPERIDINE (PF)) 12/09/2011 11 - Vomiting PENICILLINS 02/16/2008 SULFA (SULFONAMIDE ANTIBIOTICS) 02/16/2008 TERAMYCIN (OXYTETRACYCLINE) 02/16/2008 Date Reviewed: 01/20/2025 Reviewed by: Sivan Alves LPN - Fully Assessed Reason for Visit: Follow Up [171] Breast Cancer [ (more content not included)... Normal [facility] CBC W Auto Differential pane l (Bld)on 01-19-2025 Basophils (Bld) [#/Vol] 0.04 10*3/uL Normal <0.11 [facility] Comment on above: Order Comment: Speci men Type: BLOOD SPECIMEN Ordering Facility: [facility] Address: [address] [place], [place] [address] Performed By: #### 5 7021-8 #### [facility] CLIA [id number] [address] [place] [address] [place] Basophils/100 WBC (Bld) 0.5 % Normal [facility] Comment on above: Order Comment: Speci men Type: BLOOD SPECIMEN Ordering Facility: [facility] Address: [address] [place] [address] Performed By: #### 5 7021-8 #### [facility] CLIA [id number] [address] [place] [address] [place] Differential cell count method Nom (Bld) Auto Normal [facility] Comment on above: Order Comment: Speci men Type: BLOOD SPECIMEN Ordering Facility: [facility] Address: [address] [place] [address] Performed By: #### 5 7021-8 #### [facility] CLIA [id number] [address] [place] [address] [place] Eosinophils (Bld) [#/Vol] 0.16 10*3/uL Normal <0.46 [facility] Comment on above: Order Comment: Speci men Type: BLOOD SPECIMEN Ordering Facility: [facility] Address: [address] [place] [address] Performed By: #### 5 7021-8 #### [facility] CLIA [id number] [address] [place] Eosinophils/100 WBC (Bld) 2.0 % Normal [facility] Comment on above: Order Comment: Speci men Type: BLOOD SPECIMEN Ordering Facility: [facility] Address: [address] [place] [address] Performed By: #### 5 7021-8 #### [facility] CLIA [id number] [address] [place] [address] [place] Erythrocyte distribution width (RBC) [Ratio] 13.5 % Normal 11.5-15.0 [facility] Comment on above: Order Comment: Speci men Type: BLOOD SPECIMEN Ordering Facility: [facility] Address: [address] [place] [address] Performed By: #### 5 7021-8 #### [facility] CLIA [id number] [address] [place] [address] [place] Hematocrit (Bld) [Volume fraction] 39.0 % Normal 36.0-46.0 [facility] Comment on above: Order Comment: Speci men Type: BLOOD SPECIMEN Ordering Facility: [facility] Address: [address] [place] [address] Performed By: #### 5 7021-8 #### [facility] CLIA [id number] [address] [place] [address] [place] Hemoglobin (Bld) [Mass/Vol] 12.5 g/dL Normal 11.5-15.5 [facility] Comment on above: Order Comment: Speci men Type: BLOOD SPECIMEN Ordering Facility: [facility] Address: [address] [place] [address] Performed By: #### 5 7021-8 #### [facility] CLIA [id number] [address] [place] [address] [place] Immature granulocytes (Bld) [#/Vol] 0.03 10*3/uL Normal <0.10 [facility] Comment on above: Order Comment: Speci men Type: BLOOD SPECIMEN Ordering Facility: [facility] Address: [address] [place] [address] Performed By: #### 5 7021-8 #### [facility] CLIA [id number] [address] [place] Immature granulocytes/100 WBC (Bld) 0.4 % Normal [facility] Comment on above: Order Comment: Speci men Type: BLOOD SPECIMEN Ordering Facility: [facility] Address: [address] [place] [address] Performed By: #### 5 7021-8 #### [facility] CLIA [id number] [address] [place] [address] [place] Lymphocytes (Bld) [#/Vol] 2.93 10*3/uL Normal 1.00-4.00 [facility] Comment on above: Order Comment: Speci men Type: BLOOD SPECIMEN Ordering Facility: [facility] Address: [address] [place] [address] Performed By: #### 5 7021-8 #### [facility] CLIA [id number] [address] [place] [address] [place] Lymphocytes/100 WBC (Bld) 37.1 % Normal [facility] Comment on above: Order Comment: Speci men Type: BLOOD SPECIMEN Ordering Facility: [facility] Address: [address] [place] [address] Performed By: #### 5 7021-8 #### [facility] CLIA [id number] [address] [place] MCH (RBC) [Entitic mass] 31.7 pg Normal 26.0-34.0 [facility] Comment on above: Order Comment: Speci men Type: BLOOD SPECIMEN Ordering Facility: [facility] Address: [address] [place] [address] Performed By: #### 5 7021-8 #### [facility] CLIA [id number] [address] MCHC (RBC) [Mass/Vol] 32.1 g/dL Normal 30.5-36.0 [facility] Comment on above: Order Comment: Speci men Type: BLOOD SPECIMEN Ordering Facility: [facility] Address: [address] [place] [address] Performed By: #### 5 7021-8 #### [facility] CLIA [id number] [address] MCV (RBC) [Entitic vol] 99.0 fL Normal 80.0-100.0 [facility] Comment on above: Order Comment: Speci men Type: BLOOD SPECIMEN Ordering Facility: [facility] Address: [address] [place] [address] Performed By: #### 5 7021-8 #### [facility] CLIA [id number] [address] [place] Monocytes (Bld) [#/Vol] 0.49 10*3/uL Normal <0.87 [facility] Comment on above: Order Comment: Speci men Type: BLOOD SPECIMEN Ordering Facility: [facility] Address: [address] [place] [address] Performed By: #### 5 7021-8 #### [facility] CLIA [id number] [address] [place] Monocytes/100 WBC (Bld) 6.2 % Normal [facility] Comment on above: Order Comment: Speci men Type: BLOOD SPECIMEN Ordering Facility: [facility] Address: [address] [place] [address] Performed By: #### 5 7021-8 #### [facility] CLIA [id number] [address] [place] [address] [place] Neutrophils (Bld) [#/Vol] 4.25 10*3/uL Normal 1.45-7.50 [facility] Comment on above: Order Comment: Speci men Type: BLOOD SPECIMEN Ordering Facility: [facility] Address: [address] [place] [address] Performed By: #### 5 7021-8 #### [facility] CLIA [id number] [address] Neutrophils/100 WBC (Bld) 53.8 % Normal [facility] Comment on above: Order Comment: Speci men Type: BLOOD SPECIMEN Ordering Facility: [facility] Address: [address] [place] [address] Performed By: #### 5 7021-8 #### [facility] CLIA [id number] [address] [place] [address] [place] Nucleated RBC (Bld) [#/Vol] 10*3/uL Normal <0.01 [facility] Comment on above: Order Comment: Speci men Type: BLOOD SPECIMEN Ordering Facility: [facility] Address: [address] [place] [address] Performed By: #### 5 7021-8 #### [facility] CLIA [id number] [address] [place] [address] [place] [facility] [place] Nucleated RBC/100 WBC (Bld) [Ratio] 0.0 /100 WBC Normal [facility] Comment on above: Order Comment: Speci men Type: BLOOD SPECIMEN Ordering Facility: [facility] Address: [address] [place] [address] Performed By: #### 5 7021-8 #### [facility] CLIA [id number] [address] [place] [address] [place] Platelet mean volume (Bld) [Entitic vol] 11.0 fL Normal 9.0-12.7 [facility] Comment on above: Order Comment: Speci men Type: BLOOD SPECIMEN Ordering Facility: [facility] Address: [address] [place] [address] Performed By: #### 5 7021-8 #### [facility] CLIA [id number] [address] [place] [address] [place] Platelets (Bld) [#/Vol] 226 10*3/uL Normal 150-400 [facility] Comment on above: Order Comment: Speci men Type: BLOOD SPECIMEN Ordering Facility: [facility] Address: [address] [place] [address] Performed By: #### 5 7021-8 #### [facility] CLIA [id number] [address] [place] RBC (Bld) [#/Vol] 3.94 10*6/uL Normal 3.90-5.20 [facility] Comment on above: Order Comment: Speci men Type: BLOOD SPECIMEN Ordering Facility: [facility] Address: [address] [place] [address] Performed By: #### 5 7021-8 #### [facility] CLIA [id number] [address] [place] WBC (Bld) [#/Vol] 7.90 10*3/uL Normal 3.70-11.00 [facility] Comment on above: Order Comment: Speci men Type: BLOOD SPECIMEN Ordering Facility: [facility] Address: [address] [place] [address] Performed By: #### 5 7021-8 #### [facility] CLIA [id number] [address] [place] Comprehensive metabolic 2000 panelon 01-19-2025 Albumin [Mass/Vol] 3.5 g/dL Low 3.9-4.9 [facility] Comment on above: Order Comment: Speci men Type: BLOOD SPECIMEN Ordering Facility: [facility] Address: [address] [place] [address] Performed By: #### 2 4323-8 #### [facility] CLIA [id number] [address] [place] [address] [place] ALP [Catalytic activity/Vol] 122 U/L Normal 34-123 [facility] Comment on above: Order Comment: Speci men Type: BLOOD SPECIMEN Ordering Facility: [facility] Address: [address] [place] [address] Performed By: #### 2 4323-8 #### [facility] CLIA [id number] [address] [place] [address] [place] ALT [Catalytic activity/Vol] 13 U/L Normal 7-38 [facility] Comment on above: Order Comment: Speci men Type: BLOOD SPECIMEN Ordering Facility: [facility] Address: [address] [place] [address] Performed By: #### 2 4323-8 #### [facility] CLIA [id number] [address] [place] [address] [place] Anion gap [Moles/Vol] 11 mmol/L Normal 8-15 [facility] Comment on above: Order Comment: Speci men Type: BLOOD SPECIMEN Ordering Facility: [facility] Address: [address] [place] [address] Performed By: #### 2 4323-8 #### [facility] CLIA [id number] [address] [place] AST [Catalytic activity/Vol] 18 U/L Normal 13-35 [facility] Comment on above: Order Comment: Speci men Type: BLOOD SPECIMEN Ordering Facility: [facility] Address: [address] [place] [address] Performed By: #### 2 4323-8 #### [facility] CLIA [id number] [address] [place] [address] [place] Bilirubin [Mass/Vol] 0.3 mg/dL Normal 0.2-1.3 [facility] Comment on above: Order Comment: Speci men Type: BLOOD SPECIMEN Ordering Facility: [facility] Address: [address] [place] [address] Performed By: #### 2 4323-8 #### [facility] CLIA [id number] [address] [place] [address] [place] Calcium [Mass/Vol] 9.3 mg/dL Normal 8.5-10.2 [facility] Comment on above: Order Comment: Speci men Type: BLOOD SPECIMEN Ordering Facility: [facility] Address: [address] [place] [address] Performed By: #### 2 4323-8 #### [facility] CLIA [id number] [address] [place] [address] [place] Chloride [Moles/Vol] 106 mmol/L Normal 98-107 [facility] Comment on above: Order Comment: Speci men Type: BLOOD SPECIMEN Ordering Facility: [facility] Address: [address] [place] [address] Performed By: #### 2 4323-8 #### [facility] CLIA [id number] [address] [place] [address] [place] CO2 [Moles/Vol] 26 mmol/L Normal 22-30 [facility] Comment on above: Order Comment: Speci men Type: BLOOD SPECIMEN Ordering Facility: [facility] Address: [address] [place] [address] Performed By: #### 2 4323-8 #### [facility] CLIA [id number] [address] [place] [address] [place] Creatinine [Mass/Vol] 1.04 mg/dL High 0.58-0.96 [facility] Comment on above: Order Comment: Speci men Type: BLOOD SPECIMEN Ordering Facility: [facility] Address: [address] [place] [address] Performed By: #### 2 4323-8 #### [facility] CLIA [id number] [address] [place] [address] [place] [facility] [place] Creatinine and Glomerular filtration rate.predicted panel (S/P/Bld) 53 mL/min/1.73m??? Low >=60 [facility] Comment on above: Order Comment: Speci men Type: BLOOD SPECIMEN Ordering Facility: [facility] Address: [address] [place] [address] Result Comment: Patience mated Glomerular Filtration Rate (eGFR) is calculated using the 2020 CKD-EPI creatinine equation. This equation utilizes serum creatinine, sex, and age as parameters. The creatinine assay has traceable calibration to isotope dilution-mass spectrometry. Refer to KDIGO guidelines for clinical interpretation. In patients with unstable renal function, e.g. those with acute kidney injury, the eGFR may not accurately reflect actual GFR. Performed By: #### 2 4323-8 #### [facility] CLIA [id number] [address] [place] [address] [place] Glucose [Mass/Vol] 88 mg/dL Normal 74-99 [facility] Comment on above: Order Comment: Hilary ocampo Type: BLOOD SPECIMEN Ordering Facility: [facility] Address: [address] [place] [address] Result Comment: The [place] Diabetes Association (ADA) provides guidance for cutoff values for fasting glucose and random glucose. The ADA defines fasting as no caloric intake for at least 8 hours. Fasting plasma glucose results between 100 to 125 mg/dL indicate increased risk for diabetes (prediabetes). Fasting plasma glucose results greater than or equal to 126 mg/dL meet the criteria for diagnosis of diabetes. In the absence of unequivocal hyperglycemia, results should be confirmed by repeat testing. In a patient with classic symptoms of hyperglycemia or hyperglycemic crisis, random plasma glucose results greater than or equal to 200 mg/dL meet the criteria for diagnosis of diabetes. Reference: Standards of Medical Care in Diabetes 2016, [place] Diabetes Association. Diabetes Care. 2016.39(Suppl 1). Performed By: #### 2 4323-8 #### [facility] CLIA [id number] [address] [place] Potassium [Moles/Vol] 4.3 mmol/L Normal 3.7-5.1 [facility] Comment on above: Order Comment: Hilary ocampo Type: BLOOD SPECIMEN Ordering Facility: [facility] Address: [address] [id number] Performed By: #### 2 4323-8 #### [facility] CLIA [id number] [address] [place] [address] [place] Protein [Mass/Vol] 6.8 g/dL Normal 6.3-8.0 [facility] Comment on above: Order Comment: Hilary ocampo Type: BLOOD SPECIMEN Ordering Facility: [facility] Address: [address] [id number] Performed By: #### 2 4323-8 #### [facility] CLIA [id number] [address] Sodium [Moles/Vol] 143 mmol/L Normal 136-144 [facility] Comment on above: Order Comment: Speci men Type: BLOOD SPECIMEN Ordering Facility: [facility] Address: [address] [place] [address] Performed By: #### 2 4323-8 #### [facility] CLIA [id number] [address] [place] [facility] Urea nitrogen [Mass/Vol] 19 mg/dL Normal 7-21 [facility] Comment on above: Order Comment: Speci men Type: BLOOD SPECIMEN Ordering Facility: [facility] Address: [address] [place] [address] Performed By: #### 2 4323-8 #### [facility] CLIA [id number] [address] CBC W Auto Differential pane l (Bld)on 12-22-2024 Basophils (Bld) [#/Vol] 10*3/uL Normal <0.11 [facility] Comment on above: Order Comment: Speci men Type: BLOOD SPECIMEN Ordering Facility: [facility] Address: [address] [place] [address] Performed By: #### 2 4323-8 #### [facility] CLIA [id number] [address] Basophils/100 WBC (Bld) 0.2 % Normal [facility] Comment on above: Order Comment: Speci men Type: BLOOD SPECIMEN Ordering Facility: [facility] Address: [address] [place] [address] Performed By: #### 2 4323-8 #### [facility] CLIA [id number] [address] Differential cell count method Nom (Bld) Auto Normal [facility] Comment on above: Order Comment: Speci men Type: BLOOD SPECIMEN Ordering Facility: [facility] Address: [address] [place] [address] Performed By: #### 2 4323-8 #### [facility] CLIA [id number] [address] [place] [address] [place] Eosinophils (Bld) [#/Vol] 0.11 10*3/uL Normal <0.46 [facility] Comment on above: Order Comment: Speci men Type: BLOOD SPECIMEN Ordering Facility: [facility] Address: [address] [place] [address] Performed By: #### 2 4323-8 #### [facility] CLIA [id number] [address] [place] Eosinophils/100 WBC (Bld) 1.4 % Normal [facility] Comment on above: Order Comment: Speci men Type: BLOOD SPECIMEN Ordering Facility: [facility] Address: [address] [place] [address] Performed By: #### 2 4323-8 #### [facility] CLIA [id number] [address] [place] Erythrocyte distribution width (RBC) [Ratio] 13.7 % Normal 11.5-15.0 [facility] Comment on above: Order Comment: Speci men Type: BLOOD SPECIMEN Ordering Facility: [facility] Address: [address] [place] [address] Performed By: #### 2 4323-8 #### [facility] CLIA [id number] [address] Hematocrit (Bld) [Volume fraction] 38.9 % Normal 36.0-46.0 [facility] Comment on above: Order Comment: Speci men Type: BLOOD SPECIMEN [facility] [facility] Address: [address] [place] [address] Performed By: #### 2 4323-8 #### [facility] CLIA [id number] [address] [place] Hemoglobin (Bld) [Mass/Vol] 12.4 g/dL Normal 11.5-15.5 [facility] Comment on above: Order Comment: Speci men Type: BLOOD SPECIMEN Ordering Facility: [facility] Address: [address] [place] [address] Performed By: #### 2 4323-8 #### [facility] CLIA [id number] 1000 [place] [address] [place] Immature granulocytes (Bld) [#/Vol] 10*3/uL Normal <0.10 [facility] Comment on above: Order Comment: Speci men Type: BLOOD SPECIMEN Ordering Facility: [facility] Address: [address] [place] [address] Performed By: #### 2 4323-8 #### [facility] CLIA [id number] 1000 [place] [address] [place] Immature granulocytes/100 WBC (Bld) 0.2 % Normal [facility] Comment on above: Order Comment: Speci men Type: BLOOD SPECIMEN Ordering Facility: [facility] Address: [address] [place] [address] Performed By: #### 2 4323-8 #### [facility] CLIA [id number] 1000 [place] [address] [place] Lymphocytes (Bld) [#/Vol] 2.61 10*3/uL Normal 1.00-4.00 [facility] Comment on above: Order Comment: Speci men Type: BLOOD SPECIMEN Ordering Facility: [facility] Address: [address] [place] [address] Performed By: #### 2 4323-8 #### [facility] CLIA [id number] [address] Lymphocytes/100 WBC (Bld) 32.2 % Normal [facility] Comment on above: Order Comment: Speci men Type: BLOOD SPECIMEN Ordering Facility: [facility] Address: [address] [place] [address] Performed By: #### 2 4323-8 #### [facility] CLIA [id number] [address] [place] [address] [place] MCH (RBC) [Entitic mass] 31.6 pg Normal 26.0-34.0 [facility] Comment on above: Order Comment: Speci men Type: BLOOD SPECIMEN Ordering Facility: [facility] Address: [address] [place] [address] Performed By: #### 2 4323-8 #### [facility] CLIA [id number] [address] [place] [address] [place] MCHC (RBC) [Mass/Vol] 31.9 g/dL Normal 30.5-36.0 [facility] Comment on above: Order Comment: Speci men Type: BLOOD SPECIMEN Ordering Facility: [facility] Address: [address] [place] [address] Performed By: #### 2 4323-8 #### [facility] CLIA [id number] [address] [place] [address] [place] MCV (RBC) [Entitic vol] 99.0 fL Normal 80.0-100.0 [facility] Comment on above: Order Comment: Speci men Type: BLOOD SPECIMEN Ordering Facility: [facility] Address: [address] [place] [address] Performed By: #### 2 4323-8 #### [facility] CLIA [id number] [address] [place] [address] [place] Monocytes (Bld) [#/Vol] 0.69 10*3/uL Normal <0.87 [facility] Comment on above: Order Comment: Speci men Type: BLOOD SPECIMEN Ordering Facility: [facility] Address: [address] [place] [address] Performed By: #### 2 4323-8 #### [facility] CLIA [id number] [address] Monocytes/100 WBC (Bld) 8.5 % Normal [facility] Comment on above: Order Comment: Speci men Type: BLOOD SPECIMEN Ordering Facility: [facility] Address: [address] [place] [address] Performed By: #### 2 4323-8 #### [facility] CLIA [id number] [address] [place] [address] [place] Neutrophils (Bld) [#/Vol] 4.66 10*3/uL Normal 1.45-7.50 [facility] Comment on above: Order Comment: Speci men Type: BLOOD SPECIMEN Ordering Facility: [facility] Address: [address] [place] [address] Performed By: #### 2 4323-8 #### [facility] CLIA [id number] [address] Neutrophils/100 WBC (Bld) 57.5 % Normal [facility] Comment on above: Order Comment: Speci men Type: BLOOD SPECIMEN Ordering Facility: [facility] Address: [address] [place] [address] Performed By: #### 2 4323-8 #### [facility] CLIA [id number] [address] [place] [address] [place] Nucleated RBC (Bld) [#/Vol] 10*3/uL Normal <0.01 [facility] Comment on above: Order Comment: Speci men Type: BLOOD SPECIMEN Ordering Facility: [facility] Address: [address] [place] [address] Performed By: #### 2 4323-8 #### [facility] CLIA [id number] [address] STATES [place] Nucleated RBC/100 WBC (Bld) [Ratio] 0.0 /100 WBC Normal [facility] Comment on above: Order Comment: Speci men Type: BLOOD SPECIMEN Ordering Facility: [facility] Address: [address] [place] [address] Performed By: #### 2 4323-8 #### [facility] CLIA [id number] [address] [place] Platelet mean volume (Bld) [Entitic vol] 11.4 fL Normal 9.0-12.7 [facility] Comment on above: Order Comment: Speci men Type: BLOOD SPECIMEN Ordering Facility: [facility] Address: [address] [place] [address] Performed By: #### 2 4323-8 #### [facility] CLIA [id number] 1000 [place] [address] [place] Platelets (Bld) [#/Vol] 207 10*3/uL Normal 150-400 [facility] Comment on above: Order Comment: Speci men Type: BLOOD SPECIMEN Ordering Facility: [facility] Address: [address] [place] [address] Performed By: #### 2 4323-8 #### [facility] CLIA [id number] [address] [place] RBC (Bld) [#/Vol] 3.93 10*6/uL Normal 3.90-5.20 [facility] Comment on above: Order Comment: Speci men Type: BLOOD SPECIMEN Ordering Facility: [facility] Address: [address] [place] [address] Performed By: #### 2 4323-8 #### [facility] CLIA [id number] [address] WBC (Bld) [#/Vol] 8.11 10*3/uL Normal 3.70-11.00 [facility] Comment on above: Order Comment: Speci men Type: BLOOD SPECIMEN Ordering Facility: [facility] Address: [address] [place] [address] Performed By: #### 2 4323-8 #### [facility] CLIA [id number] [address] Comprehensive metabolic 2000 panelon 12-22-2024 Albumin [Mass/Vol] 3.7 g/dL Low 3.9-4.9 [facility] Comment on above: Order Comment: Speci men Type: BLOOD SPECIMEN Ordering Facility: [facility] Address: [address] [place] [address] Performed By: #### 2 4323-8 #### [facility] CLIA [id number] [address] ALP [Catalytic activity/Vol] 115 U/L Normal 34-123 [facility] Comment on above: Order Comment: Speci men Type: BLOOD SPECIMEN Ordering Facility: [facility] Address: [address] [place] [address] Performed By: #### 2 4323-8 #### [facility] CLIA [id number] [address] ALT [Catalytic activity/Vol] 10 U/L Normal 7-38 [facility] Comment on above: Order Comment: Speci men Type: BLOOD SPECIMEN Ordering Facility: [facility] Address: [address] [place] [address] Performed By: #### 2 4323-8 #### [facility] CLIA [id number] [address] [place] Anion gap [Moles/Vol] 10 mmol/L Normal 8-15 [facility] Comment on above: Order Comment: Speci men Type: BLOOD SPECIMEN Ordering Facility: [facility] Address: [address] [place] [address] Performed By: #### 2 4323-8 #### [facility] CLIA [id number] [address] [place] AST [Catalytic activity/Vol] 16 U/L Normal 13-35 [facility] Comment on above: Order Comment: Speci men Type: BLOOD SPECIMEN Ordering Facility: [facility] Address: [address] [place] [address] Performed By: #### 2 4323-8 #### [facility] CLIA [id number] [address] [place] Bilirubin [Mass/Vol] 0.3 mg/dL Normal 0.2-1.3 [facility] Comment on above: Order Comment: Speci men Type: BLOOD SPECIMEN Ordering Facility: [facility] Address: [address] [place] [address] Performed By: #### 2 4323-8 #### [facility] CLIA [id number] [address] OF [facility] Calcium [Mass/Vol] 9.3 mg/dL Normal 8.5-10.2 [facility] Comment on above: Order Comment: Speci men Type: BLOOD SPECIMEN Ordering Facility: [facility] Address: [address] [place] [address] Performed By: #### 2 4323-8 #### [facility] CLIA [id number] [address] [place] Chloride [Moles/Vol] 106 mmol/L Normal 98-107 [facility] Comment on above: Order Comment: Speci men Type: BLOOD SPECIMEN Ordering Facility: [facility] Address: [address] [place] [address] Performed By: #### 2 4323-8 #### [facility] CLIA [id number] [address] [place] [address] [place] CO2 [Moles/Vol] 27 mmol/L Normal 22-30 [facility] Comment on above: Order Comment: Hilary ocampo Type: BLOOD SPECIMEN Ordering Facility: [facility] Address: [address] [place] [address] Performed By: #### 2 4323-8 #### [facility] CLIA [id number] [address] STATES OF [facility] Creatinine [Mass/Vol] 1.13 mg/dL High 0.58-0.96 [facility] Comment on above: Order Comment: Hilary ocampo Type: BLOOD SPECIMEN Ordering Facility: [facility] Address: [address] [place] [address] Performed By: #### 2 4323-8 #### [facility] CLIA [id number] [address] Creatinine and Glomerular filtration rate.predicted panel (S/P/Bld) 48 mL/min/1.73m??? Low >=60 [facility] Comment on above: Order Comment: Hilary ocampo Type: BLOOD SPECIMEN Ordering Facility: [facility] Address: [address] [place] [address] Result Comment: Patience mated Glomerular Filtration Rate (eGFR) is calculated using the 2020 CKD-EPI creatinine equation. This equation utilizes serum creatinine, sex, and age as parameters. The creatinine assay has traceable calibration to isotope dilution-mass spectrometry. Refer to KDIGO guidelines for clinical interpretation. In patients with unstable renal function, e.g. those with acute kidney injury, the eGFR may not accurately reflect actual GFR. Performed By: #### 2 4323-8 #### [facility] CLIA [id number] [address] STATES OF [facility] Glucose [Mass/Vol] 88 mg/dL Normal 74-99 [facility] Comment on above: Order Comment: Hilary ocampo Type: BLOOD SPECIMEN Ordering Facility: [facility] Address: [address] [place] [address] Result Comment: The [place] Diabetes Association (ADA) provides guidance for cutoff values for fasting glucose and random glucose. The ADA defines fasting as no caloric intake for at least 8 hours. Fasting plasma glucose results between 100 to 125 mg/dL indicate increased risk for diabetes (prediabetes). Fasting plasma glucose results greater than or equal to 126 mg/dL meet the criteria for diagnosis of diabetes. In the absence of unequivocal hyperglycemia, results should be confirmed by repeat testing. In a patient with classic symptoms of hyperglycemia or hyperglycemic crisis, random plasma glucose results greater than or equal to 200 mg/dL meet the criteria for diagnosis of diabetes. Reference: Standards of Medical Care in Diabetes 2016, [place] [employer] Association. Diabetes Care. 2016.39(Suppl 1). Performed By: #### 2 4323-8 #### [facility] CLIA [id number] [address] [place] [address] [place] Potassium [Moles/Vol] 4.0 mmol/L Normal 3.7-5.1 [facility] Comment on above: Order Comment: Hilary ocampo Type: BLOOD SPECIMEN Ordering Facility: [facility] Address: [address] [place] [address] Performed By: #### 2 4323-8 #### [facility] CLIA [id number] [address] [place] [address] [place] Protein [Mass/Vol] 7.2 g/dL Normal 6.3-8.0 [facility] Comment on above: Order Comment: Hilary ocampo Type: BLOOD SPECIMEN Ordering Facility: [facility] Address: [address] [place] [address] Performed By: #### 2 4323-8 #### [facility] CLIA [id number] [address] [place] [address] [place] Sodium [Moles/Vol] 143 mmol/L Normal 136-144 [facility] Comment on above: Order Comment: Hilary ocampo Type: BLOOD SPECIMEN Ordering Facility: [facility] Address: [address] [place] [address] Performed By: #### 2 4323-8 #### [facility] CLIA [id number] [address] [place] [address] [place] Urea nitrogen [Mass/Vol] 26 mg/dL High 7-21 [facility] Comment on above: Order Comment: Speci men Type: BLOOD SPECIMEN Ordering Facility: [facility] Address: [address] [place] [address] Performed By: #### 2 4323-8 #### [facility] CLIA [id number] [address] [place] [address] [place] CBC W Auto Differential pane l (Bld)on 11-24-2024 Basophils (Bld) [#/Vol] 0.03 10*3/uL Normal <0.11 [facility] Comment on above: Order Comment: Speci men Type: BLOOD SPECIMEN Ordering Facility: [facility] Address: [address] [place] [address] Performed By: #### 5 7021-8 #### [facility] CLIA [id number] [address] [place] [address] [place] Basophils/100 WBC (Bld) 0.4 % Normal [facility] Comment on above: Order Comment: Speci men Type: BLOOD SPECIMEN Ordering Facility: [facility] Address: [address] [place] [address] Performed By: #### 5 7021-8 #### [facility] CLIA [id number] [address] [place] [address] [place] Differential cell count method Nom (Bld) Auto Normal [facility] Comment on above: Order Comment: Speci men Type: BLOOD SPECIMEN Ordering Facility: [facility] Address: [address] [place] [address] Performed By: #### 5 7021-8 #### [facility] CLIA [id number] [address] [place] [address] [place] Eosinophils (Bld) [#/Vol] 0.10 10*3/uL Normal <0.46 [facility] Comment on above: Order Comment: Speci men Type: BLOOD SPECIMEN Ordering Facility: [facility] Address: [address] [place] [address] Performed By: #### 5 7021-8 #### [facility] CLIA [id number] [address] [place] [address] [place] Eosinophils/100 WBC (Bld) 1.2 % Normal [facility] Comment on above: Order Comment: Speci men Type: BLOOD SPECIMEN Ordering Facility: [facility] Address: [address] [place] [address] Performed By: #### 5 7021-8 #### [facility] CLIA [id number] [address] [place] [address] [place] Erythrocyte distribution width (RBC) [Ratio] 13.9 % Normal 11.5-15.0 [facility] Comment on above: Order Comment: Speci men Type: BLOOD SPECIMEN Ordering Facility: [facility] Address: [address] [place] [address] Performed By: #### 5 7021-8 #### [facility] CLIA [id number] [address] [place] [address] [place] Hematocrit (Bld) [Volume fraction] 37.6 % Normal 36.0-46.0 [facility] Comment on above: Order Comment: Speci men Type: BLOOD SPECIMEN Ordering Facility: [facility] Address: [address] [place] [address] Performed By: #### 5 7021-8 #### [facility] CLIA [id number] [address] [place] [address] [place] Hemoglobin (Bld) [Mass/Vol] 12.3 g/dL Normal 11.5-15.5 [facility] Comment on above: Order Comment: Speci men Type: BLOOD SPECIMEN Ordering Facility: [facility] Address: [address] [place] [address] Performed By: #### 5 7021-8 #### [facility] CLIA [id number] [address] [place] [address] [place] Immature granulocytes (Bld) [#/Vol] 10*3/uL Normal <0.10 [facility] Comment on above: Order Comment: Speci men Type: BLOOD SPECIMEN Ordering Facility: [facility] Address: [address] [place] [address] Performed By: #### 5 7021-8 #### [facility] CLIA [id number] [address] [place] Immature granulocytes/100 WBC (Bld) 0.2 % Normal [facility] Comment on above: Order Comment: Speci men Type: BLOOD SPECIMEN Ordering Facility: [facility] Address: [address] [place] [address] Performed By: #### 5 7021-8 #### [facility] CLIA [id number] [address] Lymphocytes (Bld) [#/Vol] 2.04 10*3/uL Normal 1.00-4.00 [facility] Comment on above: Order Comment: Speci men Type: BLOOD SPECIMEN Ordering Facility: [facility] Address: [address] [place] [address] Performed By: #### 5 7021-8 #### [facility] CLIA [id number] [address] Lymphocytes/100 WBC (Bld) 25.0 % Normal [facility] Comment on above: Order Comment: Speci men Type: BLOOD SPECIMEN Ordering Facility: [facility] Address: [address] [place] [address] Performed By: #### 5 7021-8 #### [facility] CLIA [id number] [address] MCH (RBC) [Entitic mass] 31.6 pg Normal 26.0-34.0 [facility] Comment on above: Order Comment: Speci men Type: BLOOD SPECIMEN Ordering Facility: [facility] Address: [address] [place] [address] Performed By: #### 5 7021-8 #### [facility] CLIA [id number] [address] MCHC (RBC) [Mass/Vol] 32.7 g/dL Normal 30.5-36.0 [facility] Comment on above: Order Comment: Speci men Type: BLOOD SPECIMEN Ordering Facility: [facility] Address: [address] [place] [address] Performed By: #### 5 7021-8 #### [facility] CLIA [id number] [address] MCV (RBC) [Entitic vol] 96.7 fL Normal 80.0-100.0 [facility] Comment on above: Order Comment: Speci men Type: BLOOD SPECIMEN Ordering Facility: [facility] Address: [address] [place] [address] Performed By: #### 5 7021-8 #### [facility] CLIA [id number] [address] [place] [address] [place] Monocytes (Bld) [#/Vol] 0.56 10*3/uL Normal <0.87 [facility] Comment on above: Order Comment: Speci men Type: BLOOD SPECIMEN Ordering Facility: [facility] Address: [address] [place] [address] Performed By: #### 5 7021-8 #### [facility] CLIA [id number] [address] [place] [address] [place] Monocytes/100 WBC (Bld) 6.9 % Normal [facility] Comment on above: Order Comment: Speci men Type: BLOOD SPECIMEN Ordering Facility: [facility] Address: [address] [place] [address] Performed By: #### 5 7021-8 #### [facility] CLIA [id number] [address] [place] [address] [place] Neutrophils (Bld) [#/Vol] 5.40 10*3/uL Normal 1.45-7.50 [facility] Comment on above: Order Comment: Speci men Type: BLOOD SPECIMEN Ordering Facility: [facility] Address: [address] [place] [address] Performed By: #### 5 7021-8 #### [facility] CLIA [id number] [address] [place] [address] [place] Neutrophils/100 WBC (Bld) 66.3 % Normal [facility] Comment on above: Order Comment: Speci men Type: BLOOD SPECIMEN Ordering Facility: [facility] Address: [address] [place] [address] Performed By: #### 5 7021-8 #### [facility] CLIA [id number] [address] [place] [address] [place] Nucleated RBC (Bld) [#/Vol] 10*3/uL Normal <0.01 [facility] Comment on above: Order Comment: Speci men Type: BLOOD SPECIMEN Ordering Facility: [facility] Address: [address] [place] [address] Performed By: #### 5 7021-8 #### [facility] CLIA [id number] [address] [place] Nucleated RBC/100 WBC (Bld) [Ratio] 0.0 /100 WBC Normal [facility] Comment on above: Order Comment: Speci men Type: BLOOD SPECIMEN Ordering Facility: [facility] Address: [address] [place] [address] Performed By: #### 5 7021-8 #### [facility] CLIA [id number] [address] Platelet clump LM Ql (Bld) Present Normal [facility] Comment on above: Order Comment: Speci men Type: BLOOD SPECIMEN Ordering Facility: [facility] Address: [address] [place] [address] Performed By: #### 5 7021-8 #### [facility] CLIA [id number] [address] Platelet mean volume (Bld) [Entitic vol] Normal [facility] Comment on above: Order Comment: Speci men Type: BLOOD SPECIMEN Ordering Facility: [facility] Address: [address] [place] [address] Result Comment: Unab le to Report. Performed By: #### 5 7021-8 #### [facility] CLIA [id number] [address] Platelets (Bld) [#/Vol] Normal [facility] Comment on above: Order Comment: Speci men Type: BLOOD SPECIMEN Ordering Facility: [facility] Address: [address] [place] [address] Result Comment: No c lot detected.Platelets Clumped Estimate Normal. Performed By: #### 5 7021-8 #### [facility] CLIA [id number] [address] Platelets Estimate (Bld) [#/Vol] Adequate Normal [facility] Comment on above: Order Comment: Speci men Type: BLOOD SPECIMEN Ordering Facility: [facility] Address: [address] [place] [address] Performed By: #### 5 7021-8 #### [facility] CLIA [id number] [address] RBC (Bld) [#/Vol] 3.89 10*6/uL Low 3.90-5.20 [facility] Comment on above: Order Comment: Speci men Type: BLOOD SPECIMEN Ordering Facility: [facility] Address: [address] [place] [address] Performed By: #### 5 7021-8 #### [facility] CLIA [id number] [address] RED CELL MORPH Reviewed: unremarkable Normal [facility] Comment on above: Order Comment: Speci men Type: BLOOD SPECIMEN Ordering Facility: [facility] Address: [address] [place] [address] Performed By: #### 5 7021-8 #### [facility] CLIA [id number] [address] WBC (Bld) [#/Vol] 8.15 10*3/uL Normal 3.70-11.00 [facility] Comment on above: Order Comment: Speci men Type: BLOOD SPECIMEN Ordering Facility: [facility] Address: [address] [place] [address] Performed By: #### 5 7021-8 #### [facility] CLIA [id number] [address] Comprehensive metabolic 2000 panelon 11-24-2024 Albumin [Mass/Vol] 3.4 g/dL Low 3.9-4.9 [facility] Comment on above: Order Comment: Speci men Type: BLOOD SPECIMEN Ordering Facility: [facility] Address: [address] [place] [address] Performed By: #### 5 7021-8 #### [facility] CLIA [id number] [address] ALP [Catalytic activity/Vol] 104 U/L Normal 34-123 [facility] Comment on above: Order Comment: Speci men Type: BLOOD SPECIMEN Ordering Facility: [facility] Address: [address] [place] [address] Performed By: #### 5 7021-8 #### [facility] CLIA [id number] [address] [place] [address] [place] ALT [Catalytic activity/Vol] 9 U/L Normal 7-38 [facility] Comment on above: Order Comment: Speci men Type: BLOOD SPECIMEN Ordering Facility: [facility] Address: [address] [place] [address] Performed By: #### 5 7021-8 #### [facility] CLIA [id number] [address] [place] [address] [place] Anion gap [Moles/Vol] 11 mmol/L Normal 8-15 [facility] Comment on above: Order Comment: Speci men Type: BLOOD SPECIMEN Ordering Facility: [facility] Address: [address] [place] [address] Performed By: #### 5 7021-8 #### [facility] CLIA [id number] [address] [place] [address] [place] AST [Catalytic activity/Vol] 19 U/L Normal 13-35 [facility] Comment on above: Order Comment: Speci men Type: BLOOD SPECIMEN Ordering Facility: [facility] Address: [address] [place] [address] Performed By: #### 5 7021-8 #### [facility] CLIA [id number] [address] [place] [address] [place] Bilirubin [Mass/Vol] 0.2 mg/dL Normal 0.2-1.3 [facility] Comment on above: Order Comment: Speci men Type: BLOOD SPECIMEN Ordering Facility: [facility] Address: [address] [place] [address] Performed By: #### 5 7021-8 #### [facility] CLIA [id number] [address] [place] Calcium [Mass/Vol] 9.4 mg/dL Normal 8.5-10.2 [facility] Comment on above: Order Comment: Speci men Type: BLOOD SPECIMEN Ordering Facility: [facility] Address: [address] [place] [address] Performed By: #### 5 7021-8 #### [facility] CLIA [id number] [address] [place] [facility] Chloride [Moles/Vol] 105 mmol/L Normal 98-107 [facility] Comment on above: Order Comment: Hilary ocampo Type: BLOOD SPECIMEN Ordering Facility: [facility] Address: [address] [place] [address] Performed By: #### 5 7021-8 #### [facility] CLIA [id number] [address] [place] CO2 [Moles/Vol] 24 mmol/L Normal 22-30 [facility] Comment on above: Order Comment: Hilary men Type: BLOOD SPECIMEN Ordering Facility: [facility] Address: [address] [place] [address] Performed By: #### 5 7021-8 #### [facility] CLIA [id number] [address] Creatinine [Mass/Vol] 0.97 mg/dL High 0.58-0.96 [facility] Comment on above: Order Comment: Hilary ocampo Type: BLOOD SPECIMEN Ordering Facility: [facility] Address: [address] [place] [address] Performed By: #### 5 7021-8 #### [facility] CLIA [id number] [address] Creatinine and Glomerular filtration rate.predicted panel (S/P/Bld) 58 mL/min/1.73m??? Low >=60 [facility] Comment on above: Order Comment: Hilary terrence Type: BLOOD SPECIMEN Ordering Facility: [facility] Address: [address] [place] [address] Result Comment: Patience mated Glomerular Filtration Rate (eGFR) is calculated using the 2020 CKD-EPI creatinine equation. This equation utilizes serum creatinine, sex, and age as parameters. The creatinine assay has traceable calibration to isotope dilution-mass spectrometry. Refer to KDIGO guidelines for clinical interpretation. In patients with unstable renal function, e.g. those with acute kidney injury, the eGFR may not accurately reflect actual GFR. Performed By: #### 5 7021-8 #### [facility] CLIA [id number] [address] [place] [address] [place] Glucose [Mass/Vol] 92 mg/dL Normal 74-99 [facility] Comment on above: Order Comment: Hilary ocampo Type: BLOOD SPECIMEN Ordering Facility: [facility] Address: [address] [place] [address] Result Comment: The [place] Diabetes Association (ADA) provides guidance for cutoff values for fasting glucose and random glucose. The ADA defines fasting as no caloric intake for at least 8 hours. Fasting plasma glucose results between 100 to 125 mg/dL indicate increased risk for diabetes (prediabetes). Fasting plasma glucose results greater than or equal to 126 mg/dL meet the criteria for diagnosis of diabetes. In the absence of unequivocal hyperglycemia, results should be confirmed by repeat testing. In a patient with classic symptoms of hyperglycemia or hyperglycemic crisis, random plasma glucose results greater than or equal to 200 mg/dL meet the criteria for diagnosis of diabetes. Reference: Standards of Medical Care in Diabetes 2016, [place] Diabetes Association. Diabetes Care. 2016.39(Suppl 1). Performed By: #### 5 7021-8 #### [facility] CLIA [id number] [address] [place] [address] [place] Potassium [Moles/Vol] 4.3 mmol/L Normal 3.7-5.1 [facility] Comment on above: Order Comment: Hilary ocampo Type: BLOOD SPECIMEN Ordering Facility: [facility] Address: [address] [place] [address] Performed By: #### 5 7021-8 #### [facility] CLIA [id number] [address] [place] [address] [place] Protein [Mass/Vol] 7.0 g/dL Normal 6.3-8.0 [facility] Comment on above: Order Comment: Hilary ocampo Type: BLOOD SPECIMEN Ordering Facility: [facility] Address: [address] [place] [address] Performed By: #### 5 7021-8 #### [facility] CLIA [id number] [address] [place] [address] [place] Sodium [Moles/Vol] 140 mmol/L Normal 136-144 [facility] Comment on above: Order Comment: Hilary ocampo Type: BLOOD SPECIMEN Ordering Facility: [facility] Address: [address] [id number] Performed By: #### 5 7021-8 #### [facility] CLIA [id number] [address] [place] [facility] Urea nitrogen [Mass/Vol] 24 mg/dL High 7-21 [facility] Comment on above: Order Comment: Hilary ocampo Type: BLOOD SPECIMEN Ordering Facility: [facility] Address: [address] [id number] Performed By: #### 5 7021-8 #### [facility] CLIA [id number] [address] CNOVSPon 10-24-2024 CNOVSP Visit (SP) Office (HEMMED) JACKELYN BRADSHAW ([id number]) 1940 F Date Time Provider Department 10/24/24 8:40 AM LEONID GRAHAM HEMMED During your visit today, we recorded the following information about you: Temperature Pulse Respiration Blood pressure 97.9 degrees 61/minute 10/minute 148/76 Weight 72.8 kg Leonid Graham MD 10/24/2024 4:46 PM Signed The patient is a 82-year-old female. Status post left-sided lumpectomy in 2006 for left-sided breast cancer. Received adjuvant chemotherapy followed by radiation followed by 5 years of Arimidex that was completed in 2012. 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 This was biopsied and found to be consistent with ER positive/99%, MI +90% and HER2 negative by IHC. The patient was diagnosed with relapse in 2019. A PET scan showed uptake in the right iliac bone near the SI joint, there is also some questionable bilateral hilar lymphadenopathy at that time. The patient was started on Faslodex along with palbociclib. Subsequently was given radiation to the area of solitary metastasis in the right iliac bone. We did palbociclib for a total of 2 years. Patient was having issues with excessive fatigue. No progression identified and hence decided to stop this and continue with the Faslodex. The patient has issues with dementia now. However is tolerating the Faslodex relatively well. Family has decided not to put her through CAT scans. The patient is currently doing relatively well. On Faslodex alone. No other acute issues. Physical Examination:BP 148/76 Pulse 61 Temp 36.6 ?C (97.9 ?F) (Temporal) Resp 10 Wt 72.8 kg (160 lb 7.9 oz) SpO2 96% BMI 28.43 kg/m? The patient was awake alert oriented. Didn't appear to be in acute distress. HEENT: No pallor, icterus, cyanosis, oral cavity shows no evidence of mucositis, lesions, or ulcers. Trachea midline. No JVD, carotid bruit, thyromegaly, cervical lymphadenopathy or supra-infraclavicular lymphadenopathy. CVS: S1-S2 heard no S3 no murmurs or pericardial rub. No peripheral edema. Lungs: Chest wall nontender. No dullness to percussion. Clear to auscultation bilaterally. No rhonchi or rales noted. No pleural rub or at it sounds noted. Abdomen: Normal inspection, nondistended no dilated veins. Soft nontender no organomegaly. No palpable masses noted. Hem/ Lymph: No peripheral lymphadenopathy or any palpable masses. Neuro Exam: High mental functions were normal. Cranial nerves II through XII are normal. No gross abnormality noted on sensory or motor system exam. Musculoskeletal: No joint deformities noted. No evidence of synovitis, swelling or tenderness in the joints or bursitis. Skin: No evidence to suggest any bruising, ecchymosis, petechiae and symptoms of hand-foot syndrome. Breast examination deferred. Latest Reference Range AND Units 10/21/24 07:57 Sodium 136 - 144 mmol/L 141 Potassium 3.7 - 5.1 mmol/L 3.7 Chloride 98 - 107 mmol/L 105 CO2 22 - 30 mmol/L 27 BUN 7 - 21 mg/dL 18 Creatinine 0.58 - 0.96 mg/dL 1.07 (H) Glucose 74 - 99 mg/dL 108 (H) Protein, Total 6.3 - 8.0 g/dL 7.0 Calcium 8.5 - 10.2 mg/dL 9.1 Albumin 3.9 - 4.9 g/dL 3.4 (L) Bilirubin, Total 0.2 - 1.3 mg/dL 0.3 Alkaline Phosphatase 34 - 123 U/L 112 ALT 7 - 38 U/L 10 AST 13 - 35 U/L 17 Anion Gap 8 - 15 mmol/L 9 (H): Data is abnormally high (L): Data is abnormally low Latest Reference Range AND Units 10/21/24 07:57 WBC 3.70 - 11.00 k/uL 6.78 RBC 3.90 - 5.20 m/uL 3.87 (L) Hemoglobin 11.5 - 15.5 g/dL 11.9 Hematocrit 36.0 - 46.0 % 36.9 Platelet Count 150 - 400 k/uL 214 MCV 80.0 - 100.0 fL 95.3 MCH 26.0 - 34.0 pg 30.7 MCHC 30.5 - 36.0 g/dL 32.2 MPV 9.0 - 12.7 fL 10.7 RDW-CV 11.5 - 15.0 % 13.7 DTYPE Auto Neut% % 55.9 Abs Neut (ANC) 1.45 - 7.50 k/uL 3.79 (L): Data is abnormally low Assesment 1. 83-year-old female with a diagnosis of metastatic breast cancer. Patient was treated with Faslodex and Ibrance for 2 years. No progression of disease identified. On single agent Faslodex alone. 2. Due to dementia decision was made not to scan the patient and continue with the Faslodex and do symptom management and assessment. 3. At this time her labs reviewed. Her LFTs normal. Alkaline phosphatase normal. No physical symptoms of progression noted. Continue with Faslodex. eLonid Graham MD Allergies As of Date: 10/24/2024 Noted Allergy Reaction AZITHROMYCIN 08/03/2020 7 - Swelling DARVOCET A500 (PROPOXYPHENE N-RONALD*12/09/2011 1 - Mental Status Change DARVON (PROPOXYPHENE) 09/17/2020 1 - Mental Status Change DEMEROL (MEPERIDINE (PF)) 12/09/2011 11 - Vomiting PENICILLINS 02/16/2008 SULFA (SULFONAMIDE ANTIBIOTICS) 02/16/2008 TERAMYCIN (OXYTETRACYCLINE) 02/16/2008 Date Reviewed: 10/24/2024 Reviewed by: Elle Mcdermott MA - Fully Assessed Reason fo (more content not included)... Normal [facility] CBC W Auto Differential pane l (Bld)on 10-21-2024 Basophils (Bld) [#/Vol] 0.03 10*3/uL Normal <0.11 [facility] Comment on above: Order Comment: Speci men Type: BLOOD SPECIMEN Ordering Facility: [facility] Address: [address] [place] [address] Performed By: #### 5 7021-8 #### [facility] CLIA [id number] [address] Basophils/100 WBC (Bld) 0.4 % Normal [facility] Comment on above: Order Comment: Speci men Type: BLOOD SPECIMEN Ordering Facility: [facility] Address: [address] [place] [address] Performed By: #### 5 7021-8 #### [facility] CLIA [id number] [address] [place] Differential cell count method Nom (Bld) Auto Normal [facility] Comment on above: Order Comment: Speci men Type: BLOOD SPECIMEN Ordering Facility: [facility] Address: [address] [place] [address] Performed By: #### 5 7021-8 #### [facility] CLIA [id number] [address] [place] [address] [place] Eosinophils (Bld) [#/Vol] 0.09 10*3/uL Normal <0.46 [facility] Comment on above: Order Comment: Speci men Type: BLOOD SPECIMEN Ordering Facility: [facility] Address: [address] [place] [address] Performed By: #### 5 7021-8 #### [facility] CLIA [id number] [address] [place] Eosinophils/100 WBC (Bld) 1.3 % Normal [facility] Comment on above: Order Comment: Speci men Type: BLOOD SPECIMEN Ordering Facility: [facility] Address: [facility] [place] [address] Performed By: #### 5 7021-8 #### [facility] CLIA [id number] [address] [place] [address] [place] Erythrocyte distribution width (RBC) [Ratio] 13.7 % Normal 11.5-15.0 [facility] Comment on above: Order Comment: Speci men Type: BLOOD SPECIMEN Ordering Facility: [facility] Address: [address] [place] [address] Performed By: #### 5 7021-8 #### [facility] CLIA [id number] [address] [place] [address] [place] Hematocrit (Bld) [Volume fraction] 36.9 % Normal 36.0-46.0 [facility] Comment on above: Order Comment: Speci men Type: BLOOD SPECIMEN Ordering Facility: [facility] Address: [address] [place] [address] Performed By: #### 5 7021-8 #### [facility] CLIA [id number] [address] [place] [address] [place] Hemoglobin (Bld) [Mass/Vol] 11.9 g/dL Normal 11.5-15.5 [facility] Comment on above: Order Comment: Speci men Type: BLOOD SPECIMEN Ordering Facility: [facility] Address: [address] [place] [address] Performed By: #### 5 7021-8 #### [facility] CLIA [id number] [address] [place] [address] [place] Immature granulocytes (Bld) [#/Vol] 10*3/uL Normal <0.10 [facility] Comment on above: Order Comment: Speci men Type: BLOOD SPECIMEN Ordering Facility: [facility] Address: [address] [place] [address] Performed By: #### 5 7021-8 #### [facility] CLIA [id number] [address] [place] [address] [place] Immature granulocytes/100 WBC (Bld) 0.3 % Normal [facility] Comment on above: Order Comment: Speci men Type: BLOOD SPECIMEN Ordering Facility: [facility] Address: [address] [place] [address] Performed By: #### 5 7021-8 #### [facility] CLIA [id number] [address] [place] Lymphocytes (Bld) [#/Vol] 2.31 10*3/uL Normal 1.00-4.00 [facility] Comment on above: Order Comment: Speci men Type: BLOOD SPECIMEN Ordering Facility: [facility] Address: [address] [place] [address] Performed By: #### 5 7021-8 #### [facility] CLIA [id number] [address] Lymphocytes/100 WBC (Bld) 34.1 % Normal [facility] Comment on above: Order Comment: Speci men Type: BLOOD SPECIMEN Ordering Facility: [facility] Address: [address] [place] [address] Performed By: #### 5 7021-8 #### [facility] CLIA [id number] [address] MCH (RBC) [Entitic mass] 30.7 pg Normal 26.0-34.0 [facility] Comment on above: Order Comment: Speci men Type: BLOOD SPECIMEN Ordering Facility: [facility] Address: [address] [place] [address] Performed By: #### 5 7021-8 #### [facility] CLIA [id number] [address] [place] [address] [place] MCHC (RBC) [Mass/Vol] 32.2 g/dL Normal 30.5-36.0 [facility] Comment on above: Order Comment: Speci men Type: BLOOD SPECIMEN Ordering Facility: [facility] Address: [address] [place] [address] Performed By: #### 5 7021-8 #### [facility] CLIA [id number] [address] [place] MCV (RBC) [Entitic vol] 95.3 fL Normal 80.0-100.0 [facility] Comment on above: Order Comment: Speci men Type: BLOOD SPECIMEN Ordering Facility: [facility] Address: [address] [place] [address] Performed By: #### 5 7021-8 #### [facility] CLIA [id number] [address] [place] [address] [place] Monocytes (Bld) [#/Vol] 0.54 10*3/uL Normal <0.87 [facility] Comment on above: Order Comment: Speci men Type: BLOOD SPECIMEN Ordering Facility: [facility] Address: [address] [place] [address] Performed By: #### 5 7021-8 #### [facility] CLIA [id number] [address] Monocytes/100 WBC (Bld) 8.0 % Normal [facility] Comment on above: Order Comment: Speci men Type: BLOOD SPECIMEN Ordering Facility: [facility] Address: [address] [place] [address] Performed By: #### 5 7021-8 #### [facility] CLIA [id number] [address] [place] Neutrophils (Bld) [#/Vol] 3.79 10*3/uL Normal 1.45-7.50 [facility] Comment on above: Order Comment: Speci men Type: BLOOD SPECIMEN Ordering Facility: [facility] Address: [address] [place] [address] Performed By: #### 5 7021-8 #### [facility] CLIA [id number] [address] [place] Neutrophils/100 WBC (Bld) 55.9 % Normal [facility] Comment on above: Order Comment: Speci men Type: BLOOD SPECIMEN Ordering Facility: [facility] Address: [address] [place] [address] Performed By: #### 5 7021-8 #### [facility] CLIA [id number] [address] [place] [address] [place] Nucleated RBC (Bld) [#/Vol] 10*3/uL Normal <0.01 [facility] Comment on above: Order Comment: Speci men Type: BLOOD SPECIMEN Ordering Facility: [facility] Address: [address] [place] [address] Performed By: #### 5 7021-8 #### [facility] CLIA [id number] [address] [place] Nucleated RBC/100 WBC (Bld) [Ratio] 0.0 /100 WBC Normal [facility] Comment on above: Order Comment: Speci men Type: BLOOD SPECIMEN Ordering Facility: [facility] Address: [address] [place] [address] Performed By: #### 5 7021-8 #### [facility] CLIA [id number] [address] Platelet mean volume (Bld) [Entitic vol] 10.7 fL Normal 9.0-12.7 [facility] Comment on above: Order Comment: Speci men Type: BLOOD SPECIMEN Ordering Facility: [facility] Address: [address] [place] [address] Performed By: #### 5 7021-8 #### [facility] CLIA [id number] [address] [place] Platelets (Bld) [#/Vol] 214 10*3/uL Normal 150-400 [facility] Comment on above: Order Comment: Speci men Type: BLOOD SPECIMEN Ordering Facility: [facility] Address: [address] [place] [address] Performed By: #### 5 7021-8 #### [facility] CLIA [id number] [address] [place] RBC (Bld) [#/Vol] 3.87 10*6/uL Low 3.90-5.20 [facility] Comment on above: Order Comment: Speci men Type: BLOOD SPECIMEN Ordering Facility: [facility] Address: [address] [place] [address] Performed By: #### 5 7021-8 #### [facility] CLIA [id number] [address] [place] WBC (Bld) [#/Vol] 6.78 10*3/uL Normal 3.70-11.00 [facility] Comment on above: Order Comment: Speci men Type: BLOOD SPECIMEN Ordering Facility: [facility] Address: [address] [place] [address] Performed By: #### 5 7021-8 #### [facility] CLIA [id number] [address] Comprehensive metabolic 2000 panelon 10-21-2024 Albumin [Mass/Vol] 3.4 g/dL Low 3.9-4.9 [facility] Comment on above: Order Comment: Speci men Type: BLOOD SPECIMEN Ordering Facility: [facility] Address: [address] [place] [address] Performed By: #### 2 4323-8 #### [facility] CLIA [id number] [address] ALP [Catalytic activity/Vol] 112 U/L Normal 34-123 [facility] Comment on above: Order Comment: Speci men Type: BLOOD SPECIMEN Ordering Facility: [facility] Address: [address] [place] [address] Performed By: #### 2 4323-8 #### [facility] CLIA [id number] [address] ALT [Catalytic activity/Vol] 10 U/L Normal 7-38 [facility] Comment on above: Order Comment: Speci men Type: BLOOD SPECIMEN Ordering Facility: [facility] Address: [address] [place] [address] Performed By: #### 2 4323-8 #### [facility] CLIA [id number] [address] Anion gap [Moles/Vol] 9 mmol/L Normal 8-15 [facility] Comment on above: Order Comment: Speci men Type: BLOOD SPECIMEN Ordering Facility: [facility] Address: [address] [place] [address] Performed By: #### 2 4323-8 #### [facility] CLIA [id number] [address] [place] AST [Catalytic activity/Vol] 17 U/L Normal 13-35 [facility] Comment on above: Order Comment: Speci men Type: BLOOD SPECIMEN Ordering Facility: [facility] Address: [address] [place] [address] Performed By: #### 2 4323-8 #### [facility] CLIA [id number] [address] [place] [address] [place] Bilirubin [Mass/Vol] 0.3 mg/dL Normal 0.2-1.3 [facility] Comment on above: Order Comment: Speci men Type: BLOOD SPECIMEN Ordering Facility: [facility] Address: [address] [place] [address] Performed By: #### 2 4323-8 #### [facility] CLIA [id number] [address] [place] [address] [place] Calcium [Mass/Vol] 9.1 mg/dL Normal 8.5-10.2 [facility] Comment on above: Order Comment: Speci men Type: BLOOD SPECIMEN Ordering Facility: [facility] Address: [address] [place] [address] Performed By: #### 2 4323-8 #### [facility] CLIA [id number] [address] [place] [address] [place] Chloride [Moles/Vol] 105 mmol/L Normal 98-107 [facility] Comment on above: Order Comment: Speci men Type: BLOOD SPECIMEN Ordering Facility: [facility] Address: [address] [place] [address] Performed By: #### 2 4323-8 #### [facility] CLIA [id number] [address] [place] [address] [place] CO2 [Moles/Vol] 27 mmol/L Normal 22-30 [facility] Comment on above: Order Comment: Speci men Type: BLOOD SPECIMEN Ordering Facility: [facility] Address: [address] [place] [address] Performed By: #### 2 4323-8 #### [facility] CLIA [id number] [address] [place] [address] [place] Creatinine [Mass/Vol] 1.07 mg/dL High 0.58-0.96 [facility] Comment on above: Order Comment: Hilary ocampo Type: BLOOD SPECIMEN Ordering Facility: [facility] Address: [address] [place] [address] Performed By: #### 2 4323-8 #### [facility] CLIA [id number] [address] [place] Creatinine and Glomerular filtration rate.predicted panel (S/P/Bld) 52 mL/min/1.73m??? Low >=60 [facility] Comment on above: Order Comment: Hilary ocampo Type: BLOOD SPECIMEN Ordering Facility: [facility] Address: [address] [place] [address] Result Comment: Patience mated Glomerular Filtration Rate (eGFR) is calculated using the 2020 CKD-EPI creatinine equation. This equation utilizes serum creatinine, sex, and age as parameters. The creatinine assay has traceable calibration to isotope dilution-mass spectrometry. Refer to KDIGO guidelines for clinical interpretation. In patients with unstable renal function, e.g. those with acute kidney injury, the eGFR may not accurately reflect actual GFR. Performed By: #### 2 4323-8 #### [facility] CLIA [id number] [address] [place] [address] [place] Glucose [Mass/Vol] 108 mg/dL High 74-99 [facility] Comment on above: Order Comment: Hilary ocampo Type: BLOOD SPECIMEN Ordering Facility: [facility] Address: [address] [place] [address] Result Comment: The [place] [employer] (ADA) provides guidance for cutoff values for fasting glucose and random glucose. The ADA defines fasting as no caloric intake for at least 8 hours. Fasting plasma glucose results between 100 to 125 mg/dL indicate increased risk for diabetes (prediabetes). Fasting plasma glucose results greater than or equal to 126 mg/dL meet the criteria for diagnosis of diabetes. In the absence of unequivocal hyperglycemia, results should be confirmed by repeat testing. In a patient with classic symptoms of hyperglycemia or hyperglycemic crisis, random plasma glucose results greater than or equal to 200 mg/dL meet the criteria for diagnosis of diabetes. Reference: Standards of Medical Care in Diabetes 2016, [place] [employer]. Diabetes Care. 2016.39(Suppl 1). Performed By: #### 2 4323-8 #### [facility] CLIA [id number] [address] STATES OF [facility] Potassium [Moles/Vol] 3.7 mmol/L Normal 3.7-5.1 [facility] Comment on above: Order Comment: Speci men Type: BLOOD SPECIMEN Ordering Facility: [facility] Address: [address] [place] [address] Performed By: #### 2 4323-8 #### [facility] CLIA [id number] [address] Protein [Mass/Vol] 7.0 g/dL Normal 6.3-8.0 [facility] Comment on above: Order Comment: Speci men Type: BLOOD SPECIMEN Ordering Facility: [facility] Address: [address] [place] [address] Performed By: #### 2 4323-8 #### [facility] CLIA [id number] [address] Sodium [Moles/Vol] 141 mmol/L Normal 136-144 [facility] Comment on above: Order Comment: Speci men Type: BLOOD SPECIMEN Ordering Facility: [facility] Address: [address] [place] [address] Performed By: #### 2 4323-8 #### [facility] CLIA [id number] [address] Urea nitrogen [Mass/Vol] 18 mg/dL Normal 7-21 [facility] Comment on above: Order Comment: Speci men Type: BLOOD SPECIMEN Ordering Facility: [facility] Address: [address] [place] [address] Performed By: #### 2 4323-8 #### [facility] CLIA [id number] [address] CBC W Auto Differential pane l (Bld)on 09-20-2024 Basophils (Bld) [#/Vol] 0.05 10*3/uL Normal <0.11 [facility] Comment on above: Order Comment: Speci men Type: BLOOD SPECIMEN Ordering Facility: [facility] Address: [address] [place] [address] Performed By: #### 5 7021-8 #### [facility] CLIA [id number] 1000 [place] [address] [place] Basophils/100 WBC (Bld) 0.7 % Normal [facility] Comment on above: Order Comment: Speci men Type: BLOOD SPECIMEN Ordering Facility: [facility] Address: [address] [place] [address] Performed By: #### 5 7021-8 #### [facility] CLIA [id number] 1000 [place] [address] [place] Differential cell count method Nom (Bld) Auto [facility] Comment on above: Order Comment: Speci men Type: BLOOD SPECIMEN Ordering Facility: [facility] Address: [address] [place] [address] Performed By: #### 5 7021-8 #### [facility] CLIA [id number] 1000 [place] [address] [place] Eosinophils (Bld) [#/Vol] 0.13 10*3/uL Normal <0.46 [facility] Comment on above: Order Comment: Speci men Type: BLOOD SPECIMEN Ordering Facility: [facility] Address: [address] [place] [address] Performed By: #### 5 7021-8 #### [facility] CLIA [id number] [address] [place] Eosinophils/100 WBC (Bld) 1.7 % Normal [facility] Comment on above: Order Comment: Speci men Type: BLOOD SPECIMEN Ordering Facility: [facility] Address: [address] [place] [address] Performed By: #### 5 7021-8 #### [facility] CLIA [id number] [address] [place] [address] [place] Erythrocyte distribution width (RBC) [Ratio] 13.5 % Normal 11.5-15.0 [facility] Comment on above: Order Comment: Speci men Type: BLOOD SPECIMEN Ordering Facility: [facility] Address: [address] [place] [address] Performed By: #### 5 7021-8 #### [facility] CLIA [id number] [address] [place] [address] [place] Hematocrit (Bld) [Volume fraction] 43.2 % Normal 36.0-46.0 [facility] Comment on above: Order Comment: Speci men Type: BLOOD SPECIMEN Ordering Facility: [facility] Address: [address] [place] [address] Performed By: #### 5 7021-8 #### [facility] CLIA [id number] [address] [place] Hemoglobin (Bld) [Mass/Vol] 13.1 g/dL Normal 11.5-15.5 [facility] Comment on above: Order Comment: Speci men Type: BLOOD SPECIMEN Ordering Facility: [facility] Address: [address] [place] [address] Performed By: #### 5 7021-8 #### [facility] CLIA [id number] 1000 [place] [address] [place] Immature granulocytes (Bld) [#/Vol] 0.03 10*3/uL Normal <0.10 [facility] Comment on above: Order Comment: Speci men Type: BLOOD SPECIMEN Ordering Facility: [facility] Address: [address] [place] [address] Performed By: #### 5 7021-8 #### [facility] CLIA [id number] [address] [place] Immature granulocytes/100 WBC (Bld) 0.4 % Normal [facility] Comment on above: Order Comment: Speci men Type: BLOOD SPECIMEN Ordering Facility: [facility] Address: [address] [place] [address] Performed By: #### 5 7021-8 #### [facility] CLIA [id number] 1000 [place] [address] [place] Lymphocytes (Bld) [#/Vol] 3.06 10*3/uL Normal 1.00-4.00 [facility] Comment on above: Order Comment: Speci men Type: BLOOD SPECIMEN Ordering Facility: [facility] Address: [address] [place] [address] Performed By: #### 5 7021-8 #### [facility] CLIA [id number] [address] [place] Lymphocytes/100 WBC (Bld) 40.1 % Normal [facility] Comment on above: Order Comment: Speci men Type: BLOOD SPECIMEN Ordering Facility: [facility] Address: [address] [place] [address] Performed By: #### 5 7021-8 #### [facility] CLIA [id number] [address] [place] MCH (RBC) [Entitic mass] 31.2 pg Normal 26.0-34.0 [facility] Comment on above: Order Comment: Speci men Type: BLOOD SPECIMEN Ordering Facility: [facility] Address: [address] [place] [address] Performed By: #### 5 7021-8 #### [facility] CLIA [id number] [address] [place] MCHC (RBC) [Mass/Vol] 30.3 g/dL Low 30.5-36.0 [facility] Comment on above: Order Comment: Speci men Type: BLOOD SPECIMEN Ordering Facility: [facility] Address: [address] [place] [address] Performed By: #### 5 7021-8 #### [facility] CLIA [id number] [address] MCV (RBC) [Entitic vol] 102.9 fL High 80.0-100.0 [facility] Comment on above: Order Comment: Speci men Type: BLOOD SPECIMEN Ordering Facility: [facility] Address: [address] [place] [address] Performed By: #### 5 7021-8 #### [facility] CLIA [id number] [address] [place] Monocytes (Bld) [#/Vol] 0.53 10*3/uL Normal <0.87 [facility] Comment on above: Order Comment: Speci men Type: BLOOD SPECIMEN Ordering Facility: [facility] Address: [address] [place] [address] Performed By: #### 5 7021-8 #### [facility] CLIA [id number] [address] [place] [address] [place] Monocytes/100 WBC (Bld) 6.9 % Normal [facility] Comment on above: Order Comment: Speci men Type: BLOOD SPECIMEN Ordering Facility: [facility] Address: [address] [place] [address] Performed By: #### 5 7021-8 #### [facility] CLIA [id number] [address] [place] [address] [place] Neutrophils (Bld) [#/Vol] 3.84 10*3/uL Normal 1.45-7.50 [facility] Comment on above: Order Comment: Speci men Type: BLOOD SPECIMEN Ordering Facility: [facility] Address: [address] [place] [address] Performed By: #### 5 7021-8 #### [facility] CLIA [id number] [address] [place] Neutrophils/100 WBC (Bld) 50.2 % Normal [facility] Comment on above: Order Comment: Speci men Type: BLOOD SPECIMEN Ordering Facility: [facility] Address: [address] [place] [address] Performed By: #### 5 7021-8 #### [facility] CLIA [id number] [address] [place] Nucleated RBC (Bld) [#/Vol] 10*3/uL Normal <0.01 [facility] Comment on above: Order Comment: Speci men Type: BLOOD SPECIMEN Ordering Facility: [facility] Address: [address] [place] [address] Performed By: #### 5 7021-8 #### [facility] CLIA [id number] [address] [place] Nucleated RBC/100 WBC (Bld) [Ratio] 0.0 /100 WBC Normal [facility] Comment on above: Order Comment: Speci men Type: BLOOD SPECIMEN Ordering Facility: [facility] Address: [address] [place] [address] Performed By: #### 5 7021-8 #### [facility] CLIA [id number] [address] [place] [address] [place] Platelet mean volume (Bld) [Entitic vol] 10.5 fL Normal 9.0-12.7 [facility] Comment on above: Order Comment: Speci men Type: BLOOD SPECIMEN Ordering Facility: [facility] Address: [address] [place] [address] Performed By: #### 5 7021-8 #### [facility] CLIA [id number] [address] [place] [address] [place] Platelets (Bld) [#/Vol] 213 10*3/uL Normal 150-400 [facility] Comment on above: Order Comment: Speci men Type: BLOOD SPECIMEN Ordering Facility: [facility] Address: [address] [place] [address] Performed By: #### 5 7021-8 #### [facility] CLIA [id number] [address] [place] [address] [place] RBC (Bld) [#/Vol] 4.20 10*6/uL Normal 3.90-5.20 [facility] Comment on above: Order Comment: Speci men Type: BLOOD SPECIMEN Ordering Facility: [facility] Address: [address] [place] [address] Performed By: #### 5 7021-8 #### [facility] CLIA [id number] [address] [place] [address] [place] WBC (Bld) [#/Vol] 7.64 10*3/uL Normal 3.70-11.00 [facility] Comment on above: Order Comment: Speci men Type: BLOOD SPECIMEN Ordering Facility: [facility] Address: [address] [place] [address] Performed By: #### 5 7021-8 #### [facility] CLIA [id number] [address] [place] Comprehensive metabolic 2000 panelon 09-20-2024 Albumin [Mass/Vol] 3.4 g/dL Low 3.9-4.9 [facility] Comment on above: Order Comment: Speci men Type: BLOOD SPECIMEN Ordering Facility: [facility] Address: [address] [place] [address] Performed By: #### 5 7021-8 #### [facility] CLIA [id number] [address] ALP [Catalytic activity/Vol] 125 U/L High 34-123 [facility] Comment on above: Order Comment: Speci men Type: BLOOD SPECIMEN Ordering Facility: [facility] Address: [address] [place] [address] Performed By: #### 5 7021-8 #### [facility] CLIA [id number] [address] [place] ALT [Catalytic activity/Vol] 10 U/L Normal 7-38 [facility] Comment on above: Order Comment: Speci men Type: BLOOD SPECIMEN Ordering Facility: [facility] Address: [address] [place] [address] Performed By: #### 5 7021-8 #### [facility] CLIA [id number] [address] [place] Anion gap [Moles/Vol] 11 mmol/L Normal 8-15 [facility] Comment on above: Order Comment: Speci men Type: BLOOD SPECIMEN Ordering Facility: [facility] Address: [address] [place] [address] Performed By: #### 5 7021-8 #### [facility] CLIA [id number] [address] AST [Catalytic activity/Vol] 19 U/L Normal 13-35 [facility] Comment on above: Order Comment: Speci men Type: BLOOD SPECIMEN Ordering Facility: [facility] Address: [address] [place] [address] Performed By: #### 5 7021-8 #### [facility] CLIA [id number] [address] Bilirubin [Mass/Vol] 0.3 mg/dL Normal 0.2-1.3 [facility] Comment on above: Order Comment: Speci men Type: BLOOD SPECIMEN Ordering Facility: [facility] Address: [address] [place], [place] [address] Performed By: #### 5 7021-8 #### [facility] CLIA [id number] [address] [place] Calcium [Mass/Vol] 9.0 mg/dL Normal 8.5-10.2 [facility] Comment on above: Order Comment: Speci men Type: BLOOD SPECIMEN Ordering Facility: [facility] Address: [address] [place] [address] Performed By: #### 5 7021-8 #### [facility] CLIA [id number] [address] [place] Chloride [Moles/Vol] 105 mmol/L Normal 98-107 [facility] Comment on above: Order Comment: Speci men Type: BLOOD SPECIMEN Ordering Facility: [facility] Address: [address] [place] [address] Performed By: #### 5 7021-8 #### [facility] CLIA [id number] [address] [place] CO2 [Moles/Vol] 23 mmol/L Normal 22-30 [facility] Comment on above: Order Comment: Speci men Type: BLOOD SPECIMEN Ordering Facility: [facility] Address: [address] [place] [address] Performed By: #### 5 7021-8 #### [facility] CLIA [id number] [address] [place] Creatinine [Mass/Vol] 1.20 mg/dL High 0.58-0.96 [facility] Comment on above: Order Comment: Speci men Type: BLOOD SPECIMEN Ordering Facility: [facility] Address: [address] [place] [address] Performed By: #### 5 7021-8 #### [facility] CLIA [id number] [address] Creatinine and Glomerular filtration rate.predicted panel (S/P/Bld) 45 mL/min/1.73m??? Low >=60 [facility] Comment on above: Order Comment: Speci men Type: BLOOD SPECIMEN Ordering Facility: [facility] Address: [address] [place] [address] Result Comment: Patience mated Glomerular Filtration Rate (eGFR) is calculated using the 2020 CKD-EPI creatinine equation. This equation utilizes serum creatinine, sex, and age as parameters. The creatinine assay has traceable calibration to isotope dilution-mass spectrometry. Refer to KDIGO guidelines for clinical interpretation. In patients with unstable renal function, e.g. those with acute kidney injury, the eGFR may not accurately reflect actual GFR. Performed By: #### 5 7021-8 #### [facility] CLIA [id number] [address] [place] [address] [place] Glucose [Mass/Vol] 98 mg/dL Normal 74-99 [facility] Comment on above: Order Comment: Hilary ocampo Type: BLOOD SPECIMEN Ordering Facility: [facility] Address: [address] [place] [address] Result Comment: The [place] Diabetes Association (ADA) provides guidance for cutoff values for fasting glucose and random glucose. The ADA defines fasting as no caloric intake for at least 8 hours. Fasting plasma glucose results between 100 to 125 mg/dL indicate increased risk for diabetes (prediabetes). Fasting plasma glucose results greater than or equal to 126 mg/dL meet the criteria for diagnosis of diabetes. In the absence of unequivocal hyperglycemia, results should be confirmed by repeat testing. In a patient with classic symptoms of hyperglycemia or hyperglycemic crisis, random plasma glucose results greater than or equal to 200 mg/dL meet the criteria for diagnosis of diabetes. Reference: Standards of Medical Care in Diabetes 2016, [place] [employer]. Diabetes Care. 2016.39(Suppl 1). Performed By: #### 5 7021-8 #### [facility] CLIA [id number] [address] [place] [address] [place] Potassium [Moles/Vol] 4.3 mmol/L Normal 3.7-5.1 [facility] Comment on above: Order Comment: Hilary ocampo Type: BLOOD SPECIMEN Ordering Facility: [facility] Address: [address] [id number] Performed By: #### 5 7021-8 #### [facility] CLIA [id number] [address] [place] [address] [place] Protein [Mass/Vol] 7.3 g/dL Normal 6.3-8.0 [facility] Comment on above: Order Comment: Speci men Type: BLOOD SPECIMEN Ordering Facility: [facility] Address: [address] [place] [address] Performed By: #### 5 7021-8 #### [facility] CLIA [id number] [address] [place] [address] [place] Sodium [Moles/Vol] 139 mmol/L Normal 136-144 [facility] Comment on above: Order Comment: Speci men Type: BLOOD SPECIMEN Ordering Facility: [facility] Address: [address] [place] [address] Performed By: #### 5 7021-8 #### [facility] CLIA [id number] [address] [place] [address] [place] Urea nitrogen [Mass/Vol] 24 mg/dL High 7- [facility] Comment on above: Order Comment: Speci men Type: BLOOD SPECIMEN Ordering Facility: [facility] Address: [address] [place] [address] Performed By: #### 5 7021-8 #### [facility] CLIA [id number] [address] [place] [address] [place] CBC W/Diff, Automatedon 12-0 -2023 Absolute Lymph 1.85 X10 3/uL Normal 0.83-4.51 [facility] Comment on above: Performed By: #### L 500.4100, L100.0100, L501.9520, L501.9985, L500.4050, L506.1000 #### [facility] [address] [place], [address] Absolute Neut 4.5 X10 3/uL Normal 2.0-7.7 [facility] Comment on above: Performed By: #### L 500.4100, L100.0100, L501.9520, L501.9985, L500.4050, L506.1000 #### [facility] [address] [place], [address] Basophils/100 WBC (Bld) 0.4 % Normal 0-1 [facility] Comment on above: Performed By: #### L 500.4100, L100.0100, L501.9520, L501.9985, L500.4050, L506.1000 #### [facility] [address] [place], [address] Eosinophils/100 WBC (Bld) 0.4 % Normal 0-5 [facility] Comment on above: Performed By: #### L 500.4100, L100.0100, L501.9520, L501.9985, L500.4050, L506.1000 #### [facility] [address] [place], [address] Erythrocyte distribution width (RBC) [Ratio] 13.4 % Normal 11.6-14.6 [facility] Comment on above: Performed By: #### L 500.4100, L100.0100, L501.9520, L501.9985, L500.4050, L506.1000 #### [facility] [address] [place], [address] Hematocrit (Bld) [Volume fraction] 37.2 % Normal 37-47 [facility] Comment on above: Performed By: #### L 500.4100, L100.0100, L501.9520, L501.9985, L500.4050, L506.1000 #### [facility] [address] [place], [address] Hemoglobin (Bld) [Mass/Vol] 11.7 g/dL Low 12.0-15.0 [facility] Comment on above: Performed By: #### L 500.4100, L100.0100, L501.9520, L501.9985, L500.4050, L506.1000 #### [facility] [address] [place], [address] IG% 0.400 Normal 0.0-0.9 [facility] Comment on above: Result Comment: IG% - Immature Granulocytes (promyelocytes, myelocytes and metamyelocytes) > 1% indicates that a LEFT SHIFT is Present. Performed By: #### L 500.4100, L100.0100, L501.9520, L501.9985, L500.4050, L506.1000 #### [facility] [address] [place], [address] Lymphocytes/100 WBC (Bld) 27.2 % Normal 19-41 [facility] Comment on above: Performed By: #### L 500.4100, L100.0100, L501.9520, L501.9985, L500.4050, L506.1000 #### [facility] [address] [place], [address] MCH (RBC) [Entitic mass] 31.2 pg Normal 27.0-32.0 [facility] Comment on above: Performed By: #### L 500.4100, L100.0100, L501.9520, L501.9985, L500.4050, L506.1000 #### [facility] [address] [place], [address] MCHC (RBC) [Mass/Vol] 31.5 g/dL Low 32-36 [facility] Comment on above: Performed By: #### L 500.4100, L100.0100, L501.9520, L501.9985, L500.4050, L506.1000 #### [facility] [address] [place], [address] MCV (RBC) [Entitic vol] 99.2 fL High 81-99 [facility] Comment on above: Performed By: #### L 500.4100, L100.0100, L501.9520, L501.9985, L500.4050, L506.1000 #### [facility] [address] [place], [address] Monocytes/100 WBC (Bld) 5.7 % Normal 0-10 [facility] Comment on above: Performed By: #### L 500.4100, L100.0100, L501.9520, L501.9985, L500.4050, L506.1000 #### [facility] [address] [place], [address] Neutrophils/100 WBC (Bld) 65.9 % Normal 47-70 [facility] Comment on above: Performed By: #### L 500.4100, L100.0100, L501.9520, L501.9985, L500.4050, L506.1000 #### [facility] [address] [place], [address] Nucleated RBC (Bld) [#/Vol] 0 10*3/uL Normal 0-5 [facility] Comment on above: Performed By: #### L 500.4100, L100.0100, L501.9520, L501.9985, L500.4050, L506.1000 #### [facility] [address] [place], [address] Platelet mean volume (Bld) [Entitic vol] 10.8 fL Normal 6.2-12.0 [facility] Comment on above: Performed By: #### L 500.4100, L100.0100, L501.9520, L501.9985, L500.4050, L506.1000 #### [facility] [address] [place], [address] Platelets (Bld) [#/Vol] 231 10*3/uL Normal 150-450 [facility] Comment on above: Performed By: #### L 500.4100, L100.0100, L501.9520, L501.9985, L500.4050, L506.1000 #### [facility] [address] [place], [address] RBC (Bld) [#/Vol] 3.75 10*6/uL Low 4.2-5.4 [facility] Comment on above: Performed By: #### L 500.4100, L100.0100, L501.9520, L501.9985, L500.4050, L506.1000 #### [facility] [address] [place], [address] RDW SD 48.9 fl High 35.1-43.9 [facility] Comment on above: Performed By: #### L 500.4100, L100.0100, L501.9520, L501.9985, L500.4050, L506.1000 #### [facility] [address] [place], [address] WBC (Bld) [#/Vol] 6.8 10*3/uL Normal 4.4-11.0 [facility] Comment on above: Performed By: #### L 500.4100, L100.0100, L501.9520, L501.9985, L500.4050, L506.1000 #### [facility] [address] [place], [address] Comprehensive Metabolic [facility] 09-05-2024 Albumin [Mass/Vol] 2.7 g/dL Low 3.2-5.0 [facility] Comment on above: Performed By: #### L 500.4100, L100.0100, L501.9520, L501.9985, L500.4050, L506.1000 #### [facility] [address] [place], [address] Albumin/Globulin [Mass ratio] 0.6 {ratio} Low 0.9-2.4 [facility] Comment on above: Performed By: #### L 500.4100, L100.0100, L501.9520, L501.9985, L500.4050, L506.1000 #### [facility] [address] [place], [address] ALK P 109 U/L Normal 45-117 [facility] Comment on above: Performed By: #### L 500.4100, L100.0100, L501.9520, L501.9985, L500.4050, L506.1000 #### [facility] [address] [place], [address] ALT [Catalytic activity/Vol] 11 U/L Low 13-56 [facility] Comment on above: Performed By: #### L 500.4100, L100.0100, L501.9520, L501.9985, L500.4050, L506.1000 #### [facility] [address] [place], [address] AST [Catalytic activity/Vol] 14 U/L Low 15-37 [facility] Comment on above: Performed By: #### L 500.4100, L100.0100, L501.9520, L501.9985, L500.4050, L506.1000 #### [facility] [address] [place], [address] Bilirubin [Mass/Vol] 0.30 mg/dL Normal 0.20-1.00 [facility] Comment on above: Result Comment: For patients on eltrombopag therapy, use of Dimension [place] TBIL is not recommended. Performed By: #### L 500.4100, L100.0100, L501.9520, L501.9985, L500.4050, L506.1000 #### [facility] [address] [place], [address] BUN/CRE 17.9 RATIO Normal 10-20 [facility] Comment on above: Performed By: #### L 500.4100, L100.0100, L501.9520, L501.9985, L500.4050, L506.1000 #### [facility] [address] [place], [address] CA,Total 8.6 mg/dL Normal 8.5-10.1 [facility] Comment on above: Performed By: #### L 500.4100, L100.0100, L501.9520, L501.9985, L500.4050, L506.1000 #### [facility] [address] [place], [address] Chloride [Moles/Vol] 107 mmol/L Normal 98-107 [facility] Comment on above: Performed By: #### L 500.4100, L100.0100, L501.9520, L501.9985, L500.4050, L506.1000 #### [facility] [address] [place], [address] CO2 [Moles/Vol] 26.0 mmol/L Normal 21.0-32.0 [facility] Comment on above: Performed By: #### L 500.4100, L100.0100, L501.9520, L501.9985, L500.4050, L506.1000 #### [facility] [address] [place], [address] Creatinine [Mass/Vol] 1.17 mg/dL High 0.55-1.02 [facility] Comment on above: Result Comment: The validity of the calculated GFR GFRAA in patients over 70 years has not been determined. Clinical correlation is essential. Performed By: #### L 500.4100, L100.0100, L501.9520, L501.9985, L500.4050, L506.1000 #### [facility] [address] [place], [address] EST GFR - AA 57 mL/min Low >60 [facility] Comment on above: Result Comment: Afri can [place] GFR Calc Performed By: #### L 500.4100, L100.0100, L501.9520, L501.9985, L500.4050, L506.1000 #### [facility] [address] [place], [address] GAP 5 Normal 5-15 [facility] Comment on above: Performed By: #### L 500.4100, L100.0100, L501.9520, L501.9985, L500.4050, L506.1000 #### [facility] [address] [place], [address] GFR/1.73 sq M.predicted among non-blacks MDRD (S/P/Bld) [Vol rate/Area] 47 mL/min/{1.73_m2} Low >60 [facility] Comment on above: Result Comment: Non- GFR Calc Performed By: #### L 500.4100, L100.0100, L501.9520, L501.9985, L500.4050, L506.1000 #### [facility] [address] [place], [address] Globulin (S) [Mass/Vol] 4.3 g/dL High 2.2-4.2 [facility] Comment on above: Performed By: #### L 500.4100, L100.0100, L501.9520, L501.9985, L500.4050, L506.1000 #### [facility] [address] [place], [address] Glucose [Mass/Vol] 140 mg/dL High 74-106 [facility] Comment on above: Result Comment: Fast ing Glucose result greater than or equal to 126 mg/dL suggests DIABETES MELLITUS per A.D.A. criteria. Performed By: #### L 500.4100, L100.0100, L501.9520, L501.9985, L500.4050, L506.1000 #### [facility] [address] [place], [address] Potassium [Moles/Vol] 3.9 mmol/L Normal 3.5-5.1 [facility] Comment on above: Performed By: #### L 500.4100, L100.0100, L501.9520, L501.9985, L500.4050, L506.1000 #### [facility] [address] [place], [address] Sodium [Moles/Vol] 138 mmol/L Normal 136-145 [facility] Comment on above: Performed By: #### L 500.4100, L100.0100, L501.9520, L501.9985, L500.4050, L506.1000 #### [facility] [address] [place], [address] T PROT 7.0 g/dL Normal 6.4-8.2 [facility] Comment on above: Performed By: #### L 500.4100, L100.0100, L501.9520, L501.9985, L500.4050, L506.1000 #### [facility] [address] [place], [address] Urea nitrogen [Mass/Vol] 21 mg/dL High 7-18 [facility] Comment on above: Performed By: #### L 500.4100, L100.0100, L501.9520, L501.9985, L500.4050, L506.1000 #### [facility] [address] [place], [address] Hemoglobin A1con 09-05-2024 HbA1c (Bld) [Mass fraction] 5.5 % Normal 3.8-5.6 [facility] Comment on above: Order Comment: ADD O N FROM TODAY H201R Result Comment: Norm al < 5.7 % Prediabetic 5.7 - 6.4 % Diabetic >or= 6.5 % Please note range changes. Performed By: #### L 500.4100, L100.0100, L501.9520, L501.9985, L500.4050, L506.1000 #### [facility] [address] [place], [address] Lipid Profileon 09-05-2024 Cholesterol [Mass/Vol] 155 mg/dL Normal 200 [facility] Comment on above: Result Comment: <200 mg/dL Desirable 200-240 mg/dL Borderline >240 mg/dL High Risk Performed By: #### L 500.4100, L100.0100, L501.9520, L501.9985, L500.4050, L506.1000 #### [facility] [address] [place], [address] Cholesterol in HDL [Mass/Vol] 54 mg/dL Normal [facility] Comment on above: Result Comment: The drugs N-Acetylcysteine and Metamizole may falsely depress this assay. Reference Range HDL <40 mg/dL Low HDL Cholesterol HDL >or= 60 mg/dL High HDL Cholesterol Performed By: #### L 500.4100, L100.0100, L501.9520, L501.9985, L500.4050, L506.1000 #### [facility] [address] [place], [address] Cholesterol in LDL [Mass/Vol] 79 mg/dL Normal 0-130 [facility] Comment on above: Performed By: #### L 500.4100, L100.0100, L501.9520, L501.9985, L500.4050, L506.1000 #### [facility] [address] [place], [address] Cholesterol in VLDL [Mass/Vol] 22 mg/dL Normal 5-40 [facility] Comment on above: Performed By: #### L 500.4100, L100.0100, L501.9520, L501.9985, L500.4050, L506.1000 #### [facility] [address] [place], [address] Triglyceride [Mass/Vol] 109 mg/dL Normal [facility] Comment on above: Result Comment: The drugs N-Acetylcysteine and Metamizole may falsely depress this assay. Serum Triglycerides Reference Interval Normal <150 mg/dL Borderline high 150 - 199 mg/dL High 200 - 499 mg/dL Very High > or = 500 mg/dL Performed By: #### L 500.4100, L100.0100, L501.9520, L501.9985, L500.4050, L506.1000 #### [facility] [address] [place], [address] Thyroid Stim Hormone (TSH)on 09-05-2024 TSH 3.320 uIU/mL Normal 0.358-3.740 [facility] Comment on above: Performed By: #### L 500.4100, L100.0100, L501.9520, L501.9985, L500.4050, L506.1000 #### [facility] [address] [facility] [place], [address] Vitamin D,25 Hydroxyon 09-05 Vitamin D 25-OH 33.3 ng/mL Normal [facility] Comment on above: Result Comment: Mell min D 25(OH) Status Range Deficiency <20 ng/mL (50nmol/L) Insufficiency 20 - 30 ng/mL (50 - 75 nmol/L) Sufficiency 30 - 100 ng/mL (75 - 250 nmol/L) Toxicity >100 ng/mL (>250 nmol/L) Performed By: #### L 500.4100, L100.0100, L501.9520, L501.9985, L500.4050, L506.1000 #### [facility] [address] [place], [address] CBC W Auto Differential pane l (Bld)on 08-18-2024 Basophils (Bld) [#/Vol] 0.03 10*3/uL Normal <0.11 [facility] Comment on above: Order Comment: Speci men Type: BLOOD SPECIMEN Ordering Facility: [facility] Address: [address] [place], [place] [address] [address] Performed By: #### 5 7021-8 #### [facility] CLIA [id number] [address] [place] [address] [place] Basophils/100 WBC (Bld) 0.4 % Normal [facility] Comment on above: Order Comment: Speci men Type: BLOOD SPECIMEN Ordering Facility: [facility] Address: [address] [place] [address] Performed By: #### 5 7021-8 #### [facility] CLIA [id number] [address] [place] [address] [place] Differential cell count method Nom (Bld) Auto [facility] Comment on above: Order Comment: Speci men Type: BLOOD SPECIMEN Ordering Facility: [facility] Address: [address] [place] [address] Performed By: #### 5 7021-8 #### [facility] CLIA [id number] [address] [place] [address] [place] Eosinophils (Bld) [#/Vol] 0.08 10*3/uL Normal <0.46 [facility] Comment on above: Order Comment: Speci men Type: BLOOD SPECIMEN Ordering Facility: [facility] Address: [address] [place] [address] Performed By: #### 5 7021-8 #### [facility] CLIA [id number] [address] [place] Eosinophils/100 WBC (Bld) 1.1 % [facility] Comment on above: Order Comment: Speci men Type: BLOOD SPECIMEN Ordering Facility: [facility] Address: [address] [place] [address] Performed By: #### 5 7021-8 #### [facility] CLIA [id number] [address] [place] Erythrocyte distribution width (RBC) [Ratio] 13.4 % Normal 11.5-15.0 [facility] Comment on above: Order Comment: Speci men Type: BLOOD SPECIMEN Ordering Facility: [facility] Address: [address] [place] [address] Performed By: #### 5 7021-8 #### [facility] CLIA [id number] [address] [place] Hematocrit (Bld) [Volume fraction] 37.4 % Normal 36.0-46.0 [facility] Comment on above: Order Comment: Speci men Type: BLOOD SPECIMEN Ordering Facility: [facility] Address: [address] [place] [address] Performed By: #### 5 7021-8 #### [facility] CLIA [id number] [address] [place] [address] [place] Hemoglobin (Bld) [Mass/Vol] 11.7 g/dL Normal 11.5-15.5 [facility] Comment on above: Order Comment: Speci men Type: BLOOD SPECIMEN Ordering Facility: [facility] Address: [address] [place] [address] Performed By: #### 5 7021-8 #### [facility] CLIA [id number] [address] [place] [address] [place] Immature granulocytes (Bld) [#/Vol] 10*3/uL Normal <0.10 [facility] Comment on above: Order Comment: Speci men Type: BLOOD SPECIMEN Ordering Facility: [facility] Address: [address] [place] [address] Performed By: #### 5 7021-8 #### [facility] CLIA [id number] [address] [place] Immature granulocytes/100 WBC (Bld) 0.3 % Normal [facility] Comment on above: Order Comment: Speci men Type: BLOOD SPECIMEN Ordering Facility: [facility] Address: [address] [place] [address] Performed By: #### 5 7021-8 #### [facility] CLIA [id number] [address] [place] [address] [place] Lymphocytes (Bld) [#/Vol] 2.39 10*3/uL Normal 1.00-4.00 [facility] Comment on above: Order Comment: Speci men Type: BLOOD SPECIMEN Ordering Facility: [facility] Address: [facility] [place] [address] Performed By: #### 5 7021-8 #### [facility] CLIA [id number] [address] Lymphocytes/100 WBC (Bld) 32.0 % Normal [facility] Comment on above: Order Comment: Speci men Type: BLOOD SPECIMEN Ordering Facility: [facility] Address: [address] [place] [address] Performed By: #### 5 7021-8 #### [facility] CLIA [id number] [address] MCH (RBC) [Entitic mass] 31.5 pg Normal 26.0-34.0 [facility] Comment on above: Order Comment: Speci men Type: BLOOD SPECIMEN Ordering Facility: [facility] Address: [address] [place] [address] Performed By: #### 5 7021-8 #### [facility] CLIA [id number] [address] [place] MCHC (RBC) [Mass/Vol] 31.3 g/dL Normal 30.5-36.0 [facility] Comment on above: Order Comment: Speci men Type: BLOOD SPECIMEN Ordering Facility: [facility] Address: [address] [place] [address] Performed By: #### 5 7021-8 #### [facility] CLIA [id number] [address] MCV (RBC) [Entitic vol] 100.8 fL High 80.0-100.0 [facility] Comment on above: Order Comment: Speci men Type: BLOOD SPECIMEN Ordering Facility: [facility] Address: [address] [place] [address] Performed By: #### 5 7021-8 #### [facility] CLIA [id number] [address] Monocytes (Bld) [#/Vol] 0.47 10*3/uL Normal <0.87 [facility] Comment on above: Order Comment: Speci men Type: BLOOD SPECIMEN Ordering Facility: [facility] Address: [address] [place] [address] Performed By: #### 5 7021-8 #### [facility] CLIA [id number] [address] [place] [address] [place] Monocytes/100 WBC (Bld) 6.3 % Normal [facility] Comment on above: Order Comment: Speci men Type: BLOOD SPECIMEN Ordering Facility: [facility] Address: [address] [place] [address] Performed By: #### 5 7021-8 #### [facility] CLIA [id number] [address] [place] [address] [place] Neutrophils (Bld) [#/Vol] 4.48 10*3/uL Normal 1.45-7.50 [facility] Comment on above: Order Comment: Speci men Type: BLOOD SPECIMEN Ordering Facility: [facility] Address: [address] [place] [address] Performed By: #### 5 7021-8 #### [facility] CLIA [id number] [address] [place] [address] [place] Neutrophils/100 WBC (Bld) 59.9 % Normal [facility] Comment on above: Order Comment: Speci men Type: BLOOD SPECIMEN Ordering Facility: [facility] Address: [address] [place] [address] Performed By: #### 5 7021-8 #### [facility] CLIA [id number] [address] [place] [address] [place] Nucleated RBC (Bld) [#/Vol] 10*3/uL Normal <0.01 [facility] Comment on above: Order Comment: Speci men Type: BLOOD SPECIMEN Ordering Facility: [facility] Address: [address] [place] [address] Performed By: #### 5 7021-8 #### [facility] CLIA [id number] [address] [place] [address] [place] Nucleated RBC/100 WBC (Bld) [Ratio] 0.0 /100 WBC Normal [facility] Comment on above: Order Comment: Speci men Type: BLOOD SPECIMEN Ordering Facility: [facility] Address: [address] [place] [address] Performed By: #### 5 7021-8 #### [facility] CLIA [id number] [address] [place] [address] [place] Platelet mean volume (Bld) [Entitic vol] 10.8 fL Normal 9.0-12.7 [facility] Comment on above: Order Comment: Speci men Type: BLOOD SPECIMEN Ordering Facility: [facility] Address: [address] [place] [address] Performed By: #### 5 7021-8 #### [facility] CLIA [id number] [address] [place] [address] [place] Platelets (Bld) [#/Vol] 215 10*3/uL Normal 150-400 [facility] Comment on above: Order Comment: Speci men Type: BLOOD SPECIMEN Ordering Facility: [facility] Address: [address] [place] [address] Performed By: #### 5 7021-8 #### [facility] CLIA [id number] [address] [place] [address] [place] RBC (Bld) [#/Vol] 3.71 10*6/uL Low 3.90-5.20 [facility] Comment on above: Order Comment: Speci men Type: BLOOD SPECIMEN Ordering Facility: [facility] Address: [address] [place] [address] Performed By: #### 5 7021-8 #### [facility] CLIA [id number] [address] [place] [address] [place] WBC (Bld) [#/Vol] 7.47 10*3/uL Normal 3.70-11.00 [facility] Comment on above: Order Comment: Speci men Type: BLOOD SPECIMEN Ordering Facility: [facility] Address: [address] [place] [address] Performed By: #### 5 7021-8 #### [facility] CLIA [id number] [address] [place] [address] [place] [facility] [place] Comprehensive metabolic 2000 panelon 08-18-2024 Albumin [Mass/Vol] 3.5 g/dL Low 3.9-4.9 [facility] Comment on above: Order Comment: Speci men Type: BLOOD SPECIMEN Ordering Facility: [facility] Address: [address] [place] [address] Performed By: #### 2 4323-8 #### [facility] CLIA [id number] [address] [place] ALP [Catalytic activity/Vol] 109 U/L Normal 34-123 [facility] Comment on above: Order Comment: Speci men Type: BLOOD SPECIMEN Ordering Facility: [facility] Address: [address] [place] [address] Performed By: #### 2 4323-8 #### [facility] CLIA [id number] [address] [place] [address] [place] ALT [Catalytic activity/Vol] 9 U/L Normal 7-38 [facility] Comment on above: Order Comment: Speci men Type: BLOOD SPECIMEN Ordering Facility: [facility] Address: [address] [place] [address] Performed By: #### 2 4323-8 #### [facility] CLIA [id number] [address] Anion gap [Moles/Vol] 10 mmol/L Normal 8-15 [facility] Comment on above: Order Comment: Speci men Type: BLOOD SPECIMEN Ordering Facility: [facility] Address: [address] [place] [address] Performed By: #### 2 4323-8 #### [facility] CLIA [id number] [address] [place] AST [Catalytic activity/Vol] 20 U/L Normal 13-35 [facility] Comment on above: Order Comment: Speci men Type: BLOOD SPECIMEN Ordering Facility: [facility] Address: [address] [place] [address] Performed By: #### 2 4323-8 #### [facility] CLIA [id number] [address] Bilirubin [Mass/Vol] 0.3 mg/dL Normal 0.2-1.3 [facility] Comment on above: Order Comment: Speci men Type: BLOOD SPECIMEN Ordering Facility: [facility] Address: [address] [place] [address] Performed By: #### 2 4323-8 #### [facility] CLIA [id number] [address] [place] [address] [place] Calcium [Mass/Vol] 8.8 mg/dL Normal 8.5-10.2 [facility] Comment on above: Order Comment: Speci men Type: BLOOD SPECIMEN Ordering Facility: [facility] Address: [address] [place] [address] Performed By: #### 2 4323-8 #### [facility] CLIA [id number] [address] [place] [address] [place] Chloride [Moles/Vol] 105 mmol/L Normal 98-107 [facility] Comment on above: Order Comment: Speci men Type: BLOOD SPECIMEN Ordering Facility: [facility] Address: [address] [place] [address] Performed By: #### 2 4323-8 #### [facility] CLIA [id number] [address] [place] [address] [place] CO2 [Moles/Vol] 29 mmol/L Normal 22-30 [facility] Comment on above: Order Comment: Speci men Type: BLOOD SPECIMEN Ordering Facility: [facility] Address: [address] [place] [address] Performed By: #### 2 4323-8 #### [facility] CLIA [id number] [address] [place] [address] [place] Creatinine [Mass/Vol] 1.13 mg/dL High 0.58-0.96 [facility] Comment on above: Order Comment: Speci men Type: BLOOD SPECIMEN Ordering Facility: [facility] Address: [address] [place] [address] Performed By: #### 2 4323-8 #### [facility] CLIA [id number] [address] [place] [address] [place] Creatinine and Glomerular filtration rate.predicted panel (S/P/Bld) 48 mL/min/1.73m??? Low >=60 [facility] Comment on above: Order Comment: Speci men Type: BLOOD SPECIMEN Ordering Facility: [facility] Address: [address] [place] [address] Result Comment: Patience mated Glomerular Filtration Rate (eGFR) is calculated using the 2020 CKD-EPI creatinine equation. This equation utilizes serum creatinine, sex, and age as parameters. The creatinine assay has traceable calibration to isotope dilution-mass spectrometry. Refer to KDIGO guidelines for clinical interpretation. In patients with unstable renal function, e.g. those with acute kidney injury, the eGFR may not accurately reflect actual GFR. Performed By: #### 2 4323-8 #### [facility] CLIA [id number] [address] [place] [address] [place] Glucose [Mass/Vol] 105 mg/dL High 74-99 [facility] Comment on above: Order Comment: Hilary ocampo Type: BLOOD SPECIMEN Ordering Facility: [facility] Address: [address] [place] [address] Result Comment: The [place] Diabetes Association (ADA) provides guidance for cutoff values for fasting glucose and random glucose. The ADA defines fasting as no caloric intake for at least 8 hours. Fasting plasma glucose results between 100 to 125 mg/dL indicate increased risk for diabetes (prediabetes). Fasting plasma glucose results greater than or equal to 126 mg/dL meet the criteria for diagnosis of diabetes. In the absence of unequivocal hyperglycemia, results should be confirmed by repeat testing. In a patient with classic symptoms of hyperglycemia or hyperglycemic crisis, random plasma glucose results greater than or equal to 200 mg/dL meet the criteria for diagnosis of diabetes. Reference: Standards of Medical Care in Diabetes 2016, [place] [employer] Association. Diabetes Care. 2016.39(Suppl 1). Performed By: #### 2 4323-8 #### [facility] CLIA [id number] [address] [place] Potassium [Moles/Vol] 4.2 mmol/L Normal 3.7-5.1 [facility] Comment on above: Order Comment: Hilary ocampo Type: BLOOD SPECIMEN Ordering Facility: [facility] Address: [address] [place] [address] Performed By: #### 2 4323-8 #### [facility] CLIA [id number] [address] STATES OF [facility] Protein [Mass/Vol] 7.1 g/dL Normal 6.3-8.0 [facility] Comment on above: Order Comment: Hilary ocampo Type: BLOOD SPECIMEN Ordering Facility: [facility] Address: [address] [place] [address] Performed By: #### 2 4323-8 #### [facility] CLIA [id number] [address] Sodium [Moles/Vol] 144 mmol/L Normal 136-144 [facility] Comment on above: Order Comment: Speci men Type: BLOOD SPECIMEN Ordering Facility: [facility] Address: [address] [place] [address] Performed By: #### 2 4323-8 #### [facility] CLIA [id number] [address] Urea nitrogen [Mass/Vol] 24 mg/dL High 7- [facility] Comment on above: Order Comment: Speci men Type: BLOOD SPECIMEN Ordering Facility: [facility] Address: [address] [place] [address] Performed By: #### 2 4323-8 #### [facility] CLIA [id number] [address] STATES OF [facility] CBC W Auto Differential pane l (Bld)on 04-28-2024 Basophils (Bld) [#/Vol] 0.03 10*3/uL [facility] Basophils/100 WBC (Bld) 0.4 % [facility] Differential cell count method Nom (Bld) Auto [facility] Eosinophils (Bld) [#/Vol] 0.11 10*3/uL [facility] Eosinophils/100 WBC (Bld) 1.4 % [facility] Erythrocyte distribution width (RBC) [Ratio] 13.4 % 11.5 - 15.0 % [facility] Hematocrit (Bld) [Volume fraction] 38.3 % 36.0 - 46.0 % [facility] Hemoglobin (Bld) [Mass/Vol] 12.2 g/dL 11.5 - 15.5 g/dL [facility] [facility] Immature granulocytes (Bld) [#/Vol] 0.04 10*3/uL [facility] Immature granulocytes/100 WBC (Bld) 0.5 % [facility] Interpretation and review of laboratory results Abnormal [facility] Lymphocytes (Bld) [#/Vol] 2.04 10*3/uL [facility] Lymphocytes/100 WBC (Bld) 26.0 % [facility] MCH (RBC) [Entitic mass] 32.0 pg 26.0 - 34.0 pg [facility] MCHC (RBC) [Mass/Vol] 31.9 g/dL 30.5 - 36.0 g/dL [facility] MCV (RBC) [Entitic vol] 100.5 fL High 80.0 - 100.0 fL [facility] Monocytes (Bld) [#/Vol] 0.53 10*3/uL BANNERF [facility] Monocytes/100 WBC (Bld) 6.7 % [facility] Neutrophils (Bld) [#/Vol] 5.11 10*3/uL [facility] Neutrophils/100 WBC (Bld) 65.0 % [facility] Nucleated RBC (Bld) [#/Vol] BANNERF [facility] Nucleated RBC/100 WBC (Bld) [Ratio] 0.0 % /100 WBC [facility] Platelet mean volume (Bld) [Entitic vol] 11.0 fL 9.0 - 12.7 fL [facility] Platelets (Bld) [#/Vol] 206 10*3/uL [facility] RBC (Bld) [#/Vol] 3.81 10*6/uL Low 3.90 - 5.2 0 m/uL [facility] WBC (Bld) [#/Vol] 7.86 10*3/uL [facility] Comprehensive metabolic 2000 panelon 04-28-2024 Albumin [Mass/Vol] 3.7 g/dL Low 3.9 - 4.9 g/dL [facility] ALP [Catalytic activity/Vol] 141 U/L High 34 - 123 U/L [facility] ALT [Catalytic activity/Vol] 8 U/L 7 - 38 U/L [facility] Anion gap [Moles/Vol] 10 mmol/L 8 - 15 mmol/L [facility] AST [Catalytic activity/Vol] 16 U/L 13 - 35 U/L [facility] Bilirubin [Mass/Vol] 0.2 mg/dL 0.2 - 1 .3 mg/dL [facility] Calcium [Mass/Vol] 9.2 mg/dL 8.5 - 10. 2 mg/dL [facility] Chloride [Moles/Vol] 103 mmol/L 98 - 10 7 mmol/L [facility] CO2 [Moles/Vol] 27 mmol/L 22 - 30 mmol/L [facility] Creatinine [Mass/Vol] 1.18 mg/dL High 0.58 - 0.96 mg/dL [facility] GFR/1.73 sq M.predicted among non-blacks MDRD (S/P/Bld) [Vol rate/Area] 46 mL/min/{1.73_m2} Low - PINF [facility] Comment on above: Estimated Glomerular Filtration Rate (eGFR) is calculated using the 2020 CKD-EPI creatinine equation. This equation utilizes serum creatinine, sex, and age as parameters. The creatinine assay has traceable calibration to isotope dilution-mass spectrometry. Refer to KDIGO guidelines for clinical interpretation. In patients with unstable renal function, e.g. those with acute kidney injury, the eGFR may not accurately reflect actual GFR. Glucose [Mass/Vol] 112 mg/dL High 74 - 99 mg/dL [facility] Comment on above: The [place] Diabete s Association (ADA) provides guidance for cutoff values for fasting glucose and random glucose. The ADA defines fasting as no caloric intake for at least 8 hours. Fasting plasma glucose results between 100 to 125 mg/dL indicate increased risk for diabetes (prediabetes). Fasting plasma glucose results greater than or equal to 126 mg/dL meet the criteria for diagnosis of diabetes. In the absence of unequivocal hyperglycemia, results should be confirmed by repeat testing. In a patient with classic symptoms of hyperglycemia or hyperglycemic crisis, random plasma glucose results greater than or equal to 200 mg/dL meet the criteria for diagnosis of diabetes. Reference: Standards of Medical Care in Diabetes 2016, [place] Diabetes Association. Diabetes Care. 2016.39(Suppl 1). Interpretation and review of laboratory results Abnormal [facility] Potassium [Moles/Vol] 4.3 mmol/L 3.7 - 5.1 mmol/L [facility] Protein [Mass/Vol] 7.5 g/dL 6.3 - 8.0 g/dL [facility] Sodium [Moles/Vol] 140 mmol/L 136 - 144 mmol/L [facility] Urea nitrogen [Mass/Vol] 25 mg/dL High 7 - 21 mg/dL [facility] CBC W Auto Differential pane l (Bld)on 03-31-2024 Basophils (Bld) [#/Vol] 0.03 10*3/uL NINF [facility] Basophils/100 WBC (Bld) 0.4 % [facility] Differential cell count method Nom (Bld) Auto [facility] Eosinophils (Bld) [#/Vol] 0.05 10*3/uL [facility] Eosinophils/100 WBC (Bld) 0.7 % [facility] Erythrocyte distribution width (RBC) [Ratio] 13.4 % 11.5 - 15.0 % [facility] Hematocrit (Bld) [Volume fraction] 44.9 % 36.0 - 46.0 % [facility] Hemoglobin (Bld) [Mass/Vol] 13.7 g/dL 11.5 - 15.5 g/dL [facility] Immature granulocytes (Bld) [#/Vol] [facility] Immature granulocytes/100 WBC (Bld) 0.1 % [facility] Interpretation and review of laboratory results Abnormal [facility] Lymphocytes (Bld) [#/Vol] 2.15 10*3/uL [facility] Lymphocytes/100 WBC (Bld) 30.0 % [facility] MCH (RBC) [Entitic mass] 31.4 pg 26.0 - 34.0 pg [facility] MCHC (RBC) [Mass/Vol] 30.5 g/dL 30.5 - 36.0 g/dL [facility] MCV (RBC) [Entitic vol] 102.7 fL High 80.0 - 100.0 fL [facility] Monocytes (Bld) [#/Vol] 0.36 10*3/uL [facility] Monocytes/100 WBC (Bld) 5.0 % [facility] Neutrophils (Bld) [#/Vol] 4.56 10*3/uL [facility] Neutrophils/100 WBC (Bld) 63.8 % [facility] Nucleated RBC (Bld) [#/Vol] [facility] Nucleated RBC/100 WBC (Bld) [Ratio] 0.0 % /100 WBC [facility] Platelet mean volume (Bld) [Entitic vol] 10.6 fL 9.0 - 12.7 fL [facility] Platelets (Bld) [#/Vol] 203 10*3/uL [facility] RBC (Bld) [#/Vol] 4.37 10*6/uL 3.90 - 5.2 0 m/uL [facility] WBC (Bld) [#/Vol] 7.16 10*3/uL [facility] Comprehensive metabolic 2000 panelon 03-31-2024 Albumin [Mass/Vol] 3.7 g/dL Low 3.9 - 4.9 g/dL [facility] ALP [Catalytic activity/Vol] 147 U/L High 34 - 123 U/L [facility] ALT [Catalytic activity/Vol] 10 U/L 7 - 38 U/L [facility] Anion gap [Moles/Vol] 12 mmol/L 8 - 15 mmol/L [facility] AST [Catalytic activity/Vol] 23 U/L 13 - 35 U/L [facility] Bilirubin [Mass/Vol] 0.3 mg/dL 0.2 - 1 .3 mg/dL [facility] Calcium [Mass/Vol] 9.6 mg/dL 8.5 - 10. 2 mg/dL [facility] Chloride [Moles/Vol] 104 mmol/L 98 - 10 7 mmol/L [facility] CO2 [Moles/Vol] 23 mmol/L 22 - 30 mmol/L [facility] Creatinine [Mass/Vol] 1.22 mg/dL High 0.58 - 0.96 mg/dL [facility] GFR/1.73 sq M.predicted among non-blacks MDRD (S/P/Bld) [Vol rate/Area] 44 mL/min/{1.73_m2} Low - PINF [facility] Comment on above: Estimated Glomerular Filtration Rate (eGFR) is calculated using the 2020 CKD-EPI creatinine equation. This equation utilizes serum creatinine, sex, and age as parameters. The creatinine assay has traceable calibration to isotope dilution-mass spectrometry. Refer to KDIGO guidelines for clinical interpretation. In patients with unstable renal function, e.g. those with acute kidney injury, the eGFR may not accurately reflect actual GFR. Glucose [Mass/Vol] 98 mg/dL 74 - 99 mg/dL [facility] Comment on above: The [place] Diabete s Association (ADA) provides guidance for cutoff values for fasting glucose and random glucose. The ADA defines fasting as no caloric intake for at least 8 hours. Fasting plasma glucose results between 100 to 125 mg/dL indicate increased risk for diabetes (prediabetes). Fasting plasma glucose results greater than or equal to 126 mg/dL meet the criteria for diagnosis of diabetes. In the absence of unequivocal hyperglycemia, results should be confirmed by repeat testing. In a patient with classic symptoms of hyperglycemia or hyperglycemic crisis, random plasma glucose results greater than or equal to 200 mg/dL meet the criteria for diagnosis of diabetes. Reference: Standards of Medical Care in Diabetes 2016, [place] Diabetes [employer]. Diabetes Care. 2016.39(Suppl 1). Interpretation and review of laboratory results Abnormal [facility] Potassium [Moles/Vol] 5.3 mmol/L High 3.7 - 5.1 mmol/L [facility] Protein [Mass/Vol] 7.9 g/dL 6.3 - 8.0 g/dL [facility] Sodium [Moles/Vol] 139 mmol/L 136 - 144 mmol/L [facility] Urea nitrogen [Mass/Vol] 27 mg/dL High 7 - 21 mg/dL [facility] SOCIAL WORKon 02-19-2024 SOCIAL WORK HNO ID: [id number] Author: KRYSTYNA FOX LSW Service: Social Work Author Type: Musical String Maker Type: Social Work Filed: 02/19/2024 17:48 Note Text: Summary: Post DC Note/[facility] SOCIAL WORK PROGRESS NOTE Name: Jackelyn Bradshaw Received message from [employer] . She said that patient's PCP will not sign for [employer] . She suggested [facility] or [facility]. [facility] already responded they are out of area. Referral sent to [facility]. Signature: MICHELA Chanel Date: February 19, 2024 Time: 5:39 PM [facility] THERAPY NTon 02-19-2024 THERAPY NT HNO ID: [id number] Author: ELLE HOOVER PT Service: Physical Therapy Author Type: Physical Therapist Type: Therapy (PT/OT/Speech/Resp) Filed: 02/19/2024 12:08 Note Text: Summary: PT discharge note Physical Therapy Care Home Facility Treatment Summary SERVICE DATE: 02/19/2024 SERVICE TIME: 850 to 929 ROOM: [place] [address] Discharge Therapy Services Discharged (date): 02/19/24 Discharged To: Home Home Exercise Program Status: Assist Ability To Apply Precautions Upon Discharge: Requires Cues Equipment Issued: Gait Belt, Leg [employer] Magistrate PT 6 Clicks Score: 22 DISCHARGE RECOMMENDATIONS Home PT Recommended Discharge Disposition Comments: Anticipate need for 24 hour care upon dc due to cognitive limitations, and expected limitations post hip fx. Anticipated Discharge Needs: Family Training, Physical Assist at Home, Supervision at Home, Equipment Recommended Discharge Equipment: To Be Determined GOALS: All goals partially met, with continued SBA/ CGA recommendation due to continued fall risk. Patient will demonstrate progress with functional mobility to allow safe discharge to home with available support and/or physical assistance. Able to Perform HEP with: Supervision Rolling with: Modified Independent Transfer Supine to/from Sit with: Modified Independent Transfer Sit to/from Stand with: Modified Independent Ambulate with: Stand By Assistance Distance: 50 Device: Wheeled Walker Ambulate Up and Down Steps with: Minimal Assistance Number of Steps: 4 Device: Rail, Cane Rehab Potential: Fair Progress Toward Goals: Progressing as expected ASSESSMENT Response to Therapy Interventions: On-Track to Achieve Discharge Goals Discharge to home setting this date with patient to have 27/04 supervision and assist from granddaughter and daughter as well as grandson. Gave HEP handouts this date and reviewed them, as well as discharge instruction sheet (see inpatient note for further instruction) with emphasis on WBAT LLE, no twisting on surgical side, and gait belt for all ambulation, transfers, shower transfers, car transfers, and ramp negotiation (however requested initial ramp negotiation in w/c for safety). Recommendation for home health PT, OT, nursing and aide to ensure safe d/c and potential outpatient therapy once cleared from HHT. D/c this date. Plan for Next Visit: (discharge) PRECAUTIONS Weight Bearing Restrictions ORIF L hip Left Lower Extremity Weight Bearing Status: WBAT SUBJECTIVE Discharge to home setting this date with patient to have 27/04 supervision and assist from granddaughter and daughter. FUNCTIONAL STATUS Bed Mobility Rolling: Stand By Assistance (with use of bed rails) Supine To Sit: Supervision Sit to Supine: Minimal Assistance Scooting: Supervision Transfers Sit To Stand: Stand By Assistance Stand To Sit: Stand By Assistance Bed to Chair Contact Guard Assistance Bed To Chair Transfer Type: Stepping Bed To Chair Transfer Equipment: Gait Belt, Wheeled Walker Gait Stand By Assistance Gait Device: Wheeled Walker Gait Distance (feet): 30, 20 Stairs CURRENT HOSPITAL COURSE Admt to [facility] on 01/11 due to mechanical fall at home resulting in L intertrochanteric hip fracture. s/p ORIF L hip. Relevant Past Medical History: Arthitis, CA, HTN, lymphedema, dementia HOME LIVING Patient Lives With: Family (grandson and his and 1year old child, p-atient's dtr lives nearby) Assistance Available: Part-Time (need to verify with family. Patient poor historian.) Entry To Home: Stairs, With Rail Number Of Stairs Into Home: 4 Number Of Stairs To Bed/Bath: 0 Tub/Shower Type: tub shower with chair Laundry: family completes Equipment Owned: Walker- Wheeled, Lift Chair, Grab Bars- Toilet, Grab Bars- Shower, Shower Chair, Hand Held Shower, Commode- Raised, Emergency Response System PRIOR FUNCTIONAL LEVEL Required Assistance, History of Falls Assistance Required With: Cleaning, Laundry, Meals, Medication Management, Stairs, Safety, Self Care, Shopping, Transportation, Finances Pt questionable historian, pt reports IND with ADLS, family completes IALDs. ambulates with wheeled walker, history of falls (unable to recall an approximate amount however), sleeps in adjustable bed. Uses HOB elevated to get out of bed, uses lift chair during the day. States shw walks in the hallway every hour. THERAPY DIAGNOSIS Reduced mobility-other, Muscle Weakness (generalized) TREATMENT INTERVENTIONS Therapeutic Activity (26316) Timed Code Treatment (minutes): 39 Skilled Treatment Time (minutes): 39 EXERCISE Exercises Exercise: Review of supine and sitting exercises this date with handouts given. TRAINING AND EDUCATION PROVIDED Discharge Planning, Diseas (more content not included)... [facility] THERAPY NT HNO ID: [id number] Author: ELLE HOOVER PT Service: Physical Therapy Author Type: Physical Therapist Type: Therapy (PT/OT/Speech/Resp) Filed: 02/19/2024 08:18 Note Text: Summary: PT discharge instruction PT Discharge Instructions The PT team at [facility] has this list of discharge instructions specific to your home going needs. Your anticipated discharge date is 02/19/24. Please share these discharge instructions with family as well as any care providers coming to your home to assist with the continuity of your care. Weight Bearing precautions: Weight bearing as tolerated to your left leg Precautions: -No twisting on left leg Recommended equipment for home: Wheeled walker, Wheelchair, Gait belt, and 3-in-1 commode, ramp to enter home Additional instructions: -Use the walker at all times when walking and transferring, Stay within the walker at all times, Push up from the arm rests when standing from chair, Reach back for the arm rests when sitting, Have someone beside you holding onto the gait belt when walking. -Complete home exercise as instructed. -Walk frequently throughout the day. A good rule of thumb is to walk once every hour -Home PT advised -Have assistance for any car transfers with gait belt donned and use of walker -Use wheelchair initially for entering home via ramp Thank you for entrusting your care to us. If you have questions regarding PT please contact the PT team at [phone]. Elle Hoover PT Yamilka Rutledge PT Leticia Walters PT Will Moss ORCHESTRA MUSICIAN Christophe Beckham ORCHESTRA MUSICIAN [facility] HNO ID: [id number] Author: ARNIE GALVIN APRN.DRYING ROOM OPERATOR Service: Hospital Medicine Author Type: Nurse Practitioner Type: Discharge Summary Filed: 02/18/2024 11:28 Note Text: Attestation signed by Hermes Richardson MD at 02/26/2024 9:28 PM [facility] STAFF PHYSICIAN NOTE OF PERSONAL INVOLVEMENT IN CARE I have reviewed the discharge summary obtained and documented by the nurse practitioner and discussed the case on as needed basis Principal Problem (Resolved): Aftercare (POA: Yes) Active Problems: HTN (hypertension) (POA: Yes) Cancer of breast, intraductal, left (POA: Yes) Obesity, Class I, BMI 30-34.9 (POA: Yes) Status post hip surgery (POA: Yes) Dementia (HCC) (POA: Yes) Anemia (POA: Yes) Deep tissue injury (POA: No) Resolved Problems: Acute kidney injury superimposed on CKD (HCC) (HCC) (POA: Yes) Urinary retention (POA: Yes) Hermes Richardson MD, [facility] Staff,Dept of Hospital Medicine February 26, 2024 9:28 PM Pager:Click here to page DISCHARGE SUMMARY PATIENT NAME: Jackelyn Bradshaw ADMISSION DATE: 01/17/2024 DISCHARGE DATE: 02/19/2024 ATTENDING PHYSICIAN: Hermes Richardson MD Code Status: DNR-CCA, DNI Highest Readmission Risk Score: 26 The 30 day readmissions risk score is derived from an internally validated risk model which evaluates patient level characteristics, utilization history, medication orders and lab results up until the day of discharge. Patients with a score of 40 or above are considered highest risk for readmission. Specific patient level drivers will be listed at the bottom of the summary. CONSULTING TEAMS DURING HOSPITALIZATION: None Treatment Team: Attending Provider: Hermes Richardson MD Nurse Practitioner: Denny Manning APRN.DRYING ROOM OPERATOR Nurse Practitioner: Arnie Galvin APRN.CNP REASON FOR HOSPITALIZATION: rehabilitation following hospitalization DIAGNOSIS: Principal Problem (Resolved): Aftercare (POA: Yes) Active Problems: Status post hip surgery (POA: Yes) Anemia (POA: Yes) Dementia (HCC) (POA: Yes) HTN (hypertension) (POA: Yes) Cancer of breast, intraductal, left (POA: Yes) Obesity, Class I, BMI 30-34.9 (POA: Yes) Deep tissue injury (POA: No) Resolved Problems: Acute kidney injury superimposed on CKD (HCC) (HCC) (POA: Yes) Urinary retention (POA: Yes) OPERATIONS DURING HOSPITALIZATION: s/p left ORIF 01/13/2024 PROCEDURES DURING HOSPITALIZATION: No procedures performed HOSPITAL COURSE: Jackelyn Bradshaw is a 83 year old female with PMH dementia, breast cancer, arthritis, HTN, CKD, presented to [facility] on 01/12/2024 following a fall at home. She was found to have left hip fracture and underwent ORIF on 01/13/2024. Post-op course was complicated by acute blood loss anemia likely 2/2 surgery; Hgb was 7.6 at DC. FORTINO on CKD that was resolving at [place] with IVF; Cr 1.97. Lisinopril was initially held, but resumed at [place]. She is WBAT. She was started on Eliquis BID x30 days and completed course while at rehab. She was DCd with sal due to urinary retention and was able to successful remove cathter upon arriving to rehab. Urine cx was + <1000 staph warneri (no tx received). PT/OT recommended SNF at [place], thus she was transferred to [facility] for further rehab services. - progressed well with therapy after leg swelling had improved from surgery. Patient had Amlodipine held and lasix was started, but will resume home Amlodipine as leg swelling has resolved. - surgical site healed well. - patient developed a pressure injury to her left heel due to slower progression with therapy and movement when she first arrived. Wound is healing well. - patient is being DCd home with [facility]. - follow up with PCP in 1-2 weeks to discuss recent hospitalization. - return to the ED if symptoms return. Transitions of Care Critical Issues: - change oxybutynin to once daily LABS AND PROCEDURES PENDING AT DISCHARGE: No pending results. PATIENT CONDITION AT DISCHARGE: Stable DISCHARGE DISPOSITION: Home with Home Health Discharge Physical Exam performed on 02/18/2024: VITAL SIGNS: BP 148/68 Pulse 71 Temp 36.6 ?C (97.9 ?F) (Oral) Resp 18 Ht 160 cm (5' 3) Wt 83.5 kg (184 lb 1.4 oz) SpO2 94% BMI 32.61 kg/m? GENERAL: Alert, no distress, cooperative SKIN: Skin color, texture, turgor normal. No rashes. HEAD/SINUSES: No significant findings, NC/AT LUNGS: Lungs clear to auscultation, Good diaphragmatic excursion CARDIAC: RRR. + murmur ABDOMEN: Abdomen soft, non-tender, BS normal EXTREMITIES: +non-pitting edema BLE. Extremities without clubbing or skin discoloration. Good capillary refill. Left heel dressing intact. NEURO: Grossly normal cognition, Sensation grossly intact PULSES: 2+ radial, 2+ dorsalis pedis INFORMATION PROVIDED TO PATIENT: AVS to be printed by nursing WOUND/S (more content not included)... [facility] SOCIAL WORKon 02-18-2024 SOCIAL WORK HNO ID: [id number] Author: KRYSTYNA FOX LSW Service: Social Work Author Type: Musical String Maker Type: Social Work Filed: 02/18/2024 14:13 Note Text: Summary: [employer] SOCIAL WORK PROGRESS NOTE Name: Jackelyn Bradshaw Gave patient contact info for [facility] agency. [place] 02/18 to home with [facility]. Signature: MICHELA Chanel Date: February 18, 2024 Time: 2:11 PM [facility] THERAPY NTon 02-18-2024 THERAPY NT HNO ID: [id number] Author: ELLE HOOVER PT Service: Physical Therapy Author Type: Digital Retoucher Type: Therapy (PT/OT/Speech/Resp) Filed: 02/18/2024 12:53 Note Text: Attestation signed by Elle Hoover PT at 02/18/2024 12:53 PM I reviewed and agree with the documentation corresponding to this therapy visit. SIGNATURE: Elle Hoover PT DATE: February 18, 2024 TIME: 12:53 PM Physical Therapy Care Home Facility Treatment Summary SERVICE DATE: 02/18/2024 SERVICE TIME: 1112 to 1145 ROOM: [place] [address] PT 6 Clicks Score: 21 DISCHARGE RECOMMENDATIONS Home PT Recommended Discharge Disposition Comments: Anticipate need for 24 hour care upon dc due to cognitive limitations, and expected limitations post hip fx. Anticipated Discharge Needs: Family Training, Physical Assist at Home, Supervision at Home, Equipment Recommended Discharge Equipment: To Be Determined GOALS Patient will demonstrate progress with functional mobility to allow safe discharge to home with available support and/or physical assistance. Able to Perform HEP with: Supervision Rolling with: Modified Independent Transfer Supine to/from Sit with: Modified Independent Transfer Sit to/from Stand with: Modified Independent Ambulate with: Stand By Assistance Distance: 50 Device: Wheeled Walker Ambulate Up and Down Steps with: Minimal Assistance Number of Steps: 4 Device: Rail, Cane Rehab Potential: Fair Progress Toward Goals: Progressing as expected ASSESSMENT Response to Therapy Interventions: Good Participation in Activities Patient lmited by pain and fatigue when ambulating this morning. Plan for Next Visit: Gait Training PRECAUTIONS Weight Bearing Restrictions ORIF L hip Left Lower Extremity Weight Bearing Status: WBAT SUBJECTIVE I'm leaving tomorrow at about 10:30 FUNCTIONAL STATUS Bed Mobility Rolling: Stand By Assistance (with use of bed rails) Supine To Sit: Supervision Sit to Supine: Minimal Assistance Scooting: Supervision Transfers Sit To Stand: Stand By Assistance Stand To Sit: Stand By Assistance Bed to Chair Contact Guard Assistance Bed To Chair Transfer Type: Stepping Bed To Chair Transfer Equipment: Gait Belt, Wheeled Walker Gait Stand By Assistance Gait Device: Wheeled Walker General Deviations/Observation s: Non-functional gait speed, Flexed trunk posture Gait Distance (feet): 30, 20 Gait Deviations Left Lower Extremity: Step length decreased Stairs CURRENT HOSPITAL COURSE Admt to [facility] on 01/11 due to mechanical fall at home resulting in L intertrochanteric hip fracture. s/p ORIF L hip. Relevant Past Medical History: Arthitis, CA, HTN, lymphedema, dementia HOME LIVING Patient Lives With: Family (grandson and his and 1year old child, pzurdo's dtr lives nearby) Assistance Available: Part-Time (need to verify with family. Patient poor historian.) Entry To Home: Stairs, With Rail Number Of Stairs Into Home: 4 Number Of Stairs To Bed/Bath: 0 Tub/Shower Type: tub shower with chair Laundry: family completes Equipment Owned: Walker- Wheeled, Lift Chair, Grab Bars- Toilet, Grab Bars- Shower, Shower Chair, Hand Held Shower, Commode- Raised, Emergency Response System PRIOR FUNCTIONAL LEVEL Required Assistance, History of Falls Assistance Required With: Cleaning, Laundry, Meals, Medication Management, Stairs, Safety, Self Care, Shopping, Transportation, Finances Pt questionable historian, pt reports IND with ADLS, family completes IALDs. ambulates with wheeled walker, history of falls (unable to recall an approximate amount however), sleeps in adjustable bed. Uses HOB elevated to get out of bed, uses lift chair during the day. States shw walks in the hallway every hour. THERAPY DIAGNOSIS Reduced mobility-other, Muscle Weakness (generalized) TREATMENT INTERVENTIONS Therapeutic Activity (33512), Gait Training (11461) Timed Code Treatment (minutes): 33 Skilled Treatment Time (minutes): 33 EXERCISE None performed this session TRAINING AND EDUCATION PROVIDED Discharge Planning, Gait Pattern, Reduction of Deviations THERAPEUTIC SKILLS USED Activity Dosing, Cuing Verbal PLAN PT Frequency: 6 Times Per Week (3-4 weeks) Treatment Interventions: Strengthening, Functional Mobility Training SIGNATURE: Chase Bartlett PTA PATIENT NAME: Jackelyn Bradshaw DATE: February 18, 2024 TIME: 11:54 AM [facility] THERAPY NT HNO ID: [id number] Author: JAYE MARK OTR/Lashae Service: Occupational Therapy Author Type: Occupational Therapist Type: Therapy (PT/OT/Speech/Resp) Filed: 02/18/2024 09:24 Note Text: Summary: OT discharge Occupational Therapy Care Home Facility Treatment Summary SERVICE DATE: 02/18/2024 SERVICE TIME: 841 ROOM: [place] [address] OT 6 Clicks Score: 21 DISCHARGE RECOMMENDATIONS Discharge Therapy Services Discharged (date): 02/19/24 Discharged To: Home Home Exercise Program Status: Set Up Ability To Apply Precautions Upon Discharge: Requires Cues Equipment Issued: [facility] Home OT (vs discharge to [facility]/ECF) Recommended Discharge Disposition Comments: Pt's discharge disposition is dependent upon progress made and family ability to provide necessary assistance Anticipated Discharge Needs: Family Training, Physical Assist at Home, Supervision at Home, Equipment Recommended Discharge Equipment: ADL Kit GOALS: ALL GOALS MET AT THIS TIME Patient will demonstrate progress with self-care, cognitive and/or coping needs identified to allow safe discharge to home with available support and/or physical assistance. Grooming with: Set Up Upper Body Bathing with: Set Up Upper Body Dressing with: Set Up Lower Body Bathing with: Minimal Assistance Lower Body Dressing with: Moderate Assistance Toilet Hygiene with: Moderate Assistance Chair Transfer with: Contact Guard Assistance Toilet Transfer with: Contact Guard Assistance Shower Transfer with: Minimal Assistance Tolerate (minutes of functional activity): 45 Functional Activity with: Contact Guard Assistance Progress Toward Goals: Progressing as expected Rehab Potential: Good ASSESSMENT Response to Therapy Interventions: Good Participation in Activities Pt participating in d/c planning - reports no questions or concerns. Pt and family have 3in1 commode, ramp, shuttle route vehicle operator and extended tub bench. Handouts given for ADL equipment previously. Pt has met OT goals and agreeable for HHT. Plan for Next Visit: Bathing Training, Bed Mobility, Chair/Commode Transfer Training, Dressing Training, Exercise Instruction/Handout, Grooming Training, Standing Balance, Standing Tolerance, Toileting Instruction PRECAUTIONS Weight Bearing Restrictions ORIF L hip Left Lower Extremity Weight Bearing Status: WBAT SUBJECTIVE Pt reports excitement for going home tomorrow FUNCTIONAL STATUS Activities of Daily Living Assist Level Additional Information Feeding Set Up Grooming Stand By Assistance standing at sink for oral hygiene Bathing Upper Body Set Up, Additional Information Bathing Lower Body Minimal Assistance, Additional Information Dressing Upper Body Modified Independent Dressing Lower Body Minimal Assistance, Additional Information Toileting Supervision, Additional Information Instrumental Activities of Daily Living Assist Level Additional Information Meal/Beverage Prep Total Assistance Cleaning Total Assistance Laundry Total Assistance Medication Management with Strategies Total Assistance Mobility Assist Level Additional Information Bed Mobility Rolling: Minimal Assistance Supine To Sit: Stand By Assistance, Additional Information Sit To Supine: Stand By Assistance, Contact Guard Assistance Sit to Stand Stand By Assistance Stand to Sit Stand By Assistance Bed to Chair Stand By Assistance Bed To Chair Transfer Type: Stepping Bed To Chair Transfer Equipment: Wheeled Walker, Gait Belt Toilet/Commode Stand By Assistance Shower Functional Mobility Stand By Assistance Functional Mobility Device: Wheeled Walker CURRENT HOSPITAL COURSE Admt to [facility] on 01/11 due to mechanical fall at home resulting in L intertrochanteric hip fracture. s/p ORIF L hip. Relevant Past Medical History: Arthitis, CA, HTN, lymphedema, dementia HOME LIVING Patient Lives With: Family (grandson and his and 1year old child, p-atraghu's dtr lives nearby) Assistance Available: Part-Time (need to verify with family. Patient poor historian.) Entry To Home: Stairs, With Rail Number Of Stairs Into Home: 4 Number Of Stairs To Bed/Bath: 0 Tub/Shower Type: tub shower with chair Laundry: family completes Equipment Owned: Walker- Wheeled, Lift Chair, Grab Bars- Toilet, Grab Bars- Shower, Shower Chair, Hand Held Shower, Commode- Raised, Emergency Response System PRIOR FUNCTIONAL LEVEL Required Assistance, History of Falls Assistance Required With: Cleaning, Laundry, Meals, Medication Management, Stairs, Safety, Self Care, Shopping, Transportation, Finances Pt questionable historian, pt reports IND with ADLS, family completes IALDs. ambulates with wheeled walker, history of falls (unable to recall an approximate amount however), sleeps in (more content not included)... [facility] NUTRITIONon 02-17-2024 NUTRITION HNO ID: [id number] Author: MENDOZA COREAS RD Service: Nutrition Therapy Author Type: Registered Dietitian Type: Nutrition Filed: 02/17/2024 11:31 Note Text: NUTRITION THERAPY REASSESSMENT NOTE SERVICE DATE: 02/17/2024 SERVICE TIME: 11:25 AM Nutrition Assessment: Recommended Malnutrition Diagnosis: No Malnutrition Identified (02/03/24 1118 : Mendoza Coreas RD) Nutrition Diagnosis: Problem: Increased nutrient needs Related to: Wound healing As evidenced by: Procedure/surgery Estimated kilocalorie needs: 1543-3495 Calorie Calculation Method: Ellsworth-St. Jeor (with activity factor) (adjusted body wt 60.1kg) Estimated protein needs (grams): 60-72 Grams protein determined by: 1.0 - 1.2 g/kg Care Plan: Continue current diet Monitor and Evaluation: Meet greater than 75% of estimated needs;Monitor fluid/electrolyte balance;Monitor labs, I/Os, vital signs, weight Discharge Recommendations: Diet Diet: regular Interval History: 30 day LOS here for Therapy, meds labs reviewed, no nutritonal concerns stated, eats 100% BUN/Crea elevated. Appears stable no new wt Intake History: Nutrition Intake Prior to Admission: Greater than 75% estimated energy needs greater than or equal to 3 months Current Nutrition Intake: Greater than 75% estimated energy needs Current Intake Over time: Greater than or equal to 7 days Diet Orders (From admission, onward) Start Ordered 01/17/24 1430 DIET REGULAR START NOW 01/17/24 1428 Anthropometrics: Height: 160 cm (5' 3) Weight: 83.5 kg (184 lb 1.4 oz) Dosing Weight: 52.2 kg (115 lb) Usual Weight: 77.6 kg (171 lb 1.2 oz) 08/07/2023 Usual Weight Obtained From: Chart Review Body mass index is 32.61 kg/m?. Weight change percentage over time: +7.6% gain Weight Change: Weight gain Physical Exam: Subcutaneous fat loss: No fat loss (02/17/24 1125 : Mendoza Coreas RD) Muscle loss: No muscle loss (02/17/24 1125 : Mendoza Coreas RD) Potential micronutrient deficiency: No deficiency identified Potential Signs of Inflammation: Acute post-operative MNT Billing: $ Reassessment: 1-15 minutes SIGNATURE: Mendoza Coreas RD PATIENT NAME: Jackelyn Bradshaw DATE: February 17, 2024 TIME: 11:25 AM [facility] THERAPY NTon 02-17-2024 THERAPY NT HNO ID: [id number] Author: LETICIA WALTERS, HUGH Service: Physical Therapy Author Type: Digital Retoucher Type: Therapy (PT/OT/Speech/Resp) Filed: 02/17/2024 16:59 Note Text: Attestation signed by Leticia Walters PT at 02/17/2024 4:59 PM I reviewed and agree with the documentation corresponding to this therapy visit. SIGNATURE: Leticia Walters PT DATE: February 17, 2024 TIME: 4:59 PM Physical Therapy Care Home Facility Treatment Summary SERVICE DATE: 02/17/2024 SERVICE TIME: 1336 to 1403 ROOM: [place] [address] PT 6 Clicks Score: 21 DISCHARGE RECOMMENDATIONS Home PT Recommended Discharge Disposition Comments: Anticipate need for 24 hour care upon dc due to cognitive limitations, and expected limitations post hip fx. Anticipated Discharge Needs: Family Training, Physical Assist at Home, Supervision at Home, Equipment Recommended Discharge Equipment: To Be Determined GOALS Patient will demonstrate progress with functional mobility to allow safe discharge to home with available support and/or physical assistance. Able to Perform HEP with: Supervision Rolling with: Modified Independent Transfer Supine to/from Sit with: Modified Independent Transfer Sit to/from Stand with: Modified Independent Ambulate with: Stand By Assistance Distance: 50 Device: Wheeled Walker Ambulate Up and Down Steps with: Minimal Assistance Number of Steps: 4 Device: Rail, Cane Rehab Potential: Fair Progress Toward Goals: Progressing as expected ASSESSMENT Response to Therapy Interventions: Good Participation in Activities Patient nivia agreeable to ambulate this afternoon however she does not ambulate as much due to fatigue. Plan for Next Visit: Gait Training PRECAUTIONS Weight Bearing Restrictions ORIF L hip Left Lower Extremity Weight Bearing Status: WBAT SUBJECTIVE I feel fine FUNCTIONAL STATUS Bed Mobility Rolling: Stand By Assistance (with use of bed rails) Supine To Sit: Supervision Sit to Supine: Minimal Assistance Scooting: Supervision Transfers Sit To Stand: Stand By Assistance Stand To Sit: Stand By Assistance Bed to Chair Contact Guard Assistance Bed To Chair Transfer Type: Stepping Bed To Chair Transfer Equipment: Gait Belt, Wheeled Walker Gait Stand By Assistance Gait Device: Wheeled Walker General Deviations/Observation s: Non-functional gait speed, Flexed trunk posture Gait Distance (feet): 70, 20 Gait Deviations Left Lower Extremity: Step length decreased Stairs CURRENT HOSPITAL COURSE Admt to [facility] on 01/11 due to mechanical fall at home resulting in L intertrochanteric hip fracture. s/p ORIF L hip. Relevant Past Medical History: Arthitis, CA, HTN, lymphedema, dementia HOME LIVING Patient Lives With: Family (grandson and his and 1year old child, p-atient's dtr lives nearby) Assistance Available: Part-Time (need to verify with family. Patient poor historian.) Entry To Home: Stairs, With Rail Number Of Stairs Into Home: 4 Number Of Stairs To Bed/Bath: 0 Tub/Shower Type: tub shower with chair Laundry: family completes Equipment Owned: Walker- Wheeled, Lift Chair, Grab Bars- Toilet, Grab Bars- Shower, Shower Chair, Hand Held Shower, Commode- Raised, Emergency Response System PRIOR FUNCTIONAL LEVEL Required Assistance, History of Falls Assistance Required With: Cleaning, Laundry, Meals, Medication Management, Stairs, Safety, Self Care, Shopping, Transportation, Finances Pt questionable historian, pt reports IND with ADLS, family completes IALDs. ambulates with wheeled walker, history of falls (unable to recall an approximate amount however), sleeps in adjustable bed. Uses HOB elevated to get out of bed, uses lift chair during the day. States shw walks in the hallway every hour. THERAPY DIAGNOSIS Reduced mobility-other, Muscle Weakness (generalized) TREATMENT INTERVENTIONS Gait Training (03468) Timed Code Treatment (minutes): 27 Skilled Treatment Time (minutes): 27 EXERCISE None performed this session TRAINING AND EDUCATION PROVIDED Gait Pattern, Reduction of Deviations THERAPEUTIC SKILLS USED Activity Dosing, Cuing Verbal PLAN PT Frequency: 6 Times Per Week (3-4 weeks) Treatment Interventions: Strengthening, Functional Mobility Training SIGNATURE: Chase Bartlett PTA PATIENT NAME: Jackelyn Bradshaw DATE: February 17, 2024 TIME: 2:09 PM [facility] THERAPY NT HNO ID: [id number] Author: ELLE HOOVER, PT Service: Physical Therapy Author Type: Digital Retoucher Type: Therapy (PT/OT/Speech/Resp) Filed: 02/17/2024 13:33 Note Text: Attestation signed by Elle Hoover PT at 02/17/2024 1:33 PM I reviewed and agree with the documentation corresponding to this therapy visit. SIGNATURE: Elle Hoover PT DATE: February 17, 2024 TIME: 1:33 PM Physical Therapy Care Home Facility Treatment Summary SERVICE DATE: 02/17/2024 SERVICE TIME: 1101 to 1131 ROOM: [place] [address] PT 6 Clicks Score: 21 DISCHARGE RECOMMENDATIONS Home PT Recommended Discharge Disposition Comments: Anticipate need for 24 hour care upon dc due to cognitive limitations, and expected limitations post hip fx. Anticipated Discharge Needs: Family Training, Physical Assist at Home, Supervision at Home, Equipment Recommended Discharge Equipment: To Be Determined GOALS Patient will demonstrate progress with functional mobility to allow safe discharge to home with available support and/or physical assistance. Able to Perform HEP with: Supervision Rolling with: Modified Independent Transfer Supine to/from Sit with: Modified Independent Transfer Sit to/from Stand with: Modified Independent Ambulate with: Stand By Assistance Distance: 50 Device: Wheeled Walker Ambulate Up and Down Steps with: Minimal Assistance Number of Steps: 4 Device: Rail, Cane Rehab Potential: Fair Progress Toward Goals: Progressing as expected ASSESSMENT Response to Therapy Interventions: Good Participation in Activities Patient reports feeling well and is able ambulate much farther this session with a rest break taken in between bouts due to some fatigue. Plan for Next Visit: Gait Training PRECAUTIONS Weight Bearing Restrictions ORIF L hip Left Lower Extremity Weight Bearing Status: WBAT SUBJECTIVE she just gave me two tylenol my back was hurting a little bit FUNCTIONAL STATUS Bed Mobility Rolling: Stand By Assistance (with use of bed rails) Supine To Sit: Supervision Sit to Supine: Minimal Assistance Scooting: Supervision Transfers Sit To Stand: Stand By Assistance Stand To Sit: Stand By Assistance Bed to Chair Contact Guard Assistance Bed To Chair Transfer Type: Stepping Bed To Chair Transfer Equipment: Gait Belt, Wheeled Walker Gait Stand By Assistance Gait Device: Wheeled Walker General Deviations/Observation s: Non-functional gait speed, Flexed trunk posture Gait Distance (feet): 70 x 2 Gait Deviations Left Lower Extremity: Step length decreased Stairs CURRENT HOSPITAL COURSE Admt to [facility] on 01/11 due to mechanical fall at home resulting in L intertrochanteric hip fracture. s/p ORIF L hip. Relevant Past Medical History: Arthitis, CA, HTN, lymphedema, dementia HOME LIVING Patient Lives With: Family (grandson and his and 1year old child, p-atient's dtr lives nearby) Assistance Available: Part-Time (need to verify with family. Patient poor historian.) Entry To Home: Stairs, With Rail Number Of Stairs Into Home: 4 Number Of Stairs To Bed/Bath: 0 Tub/Shower Type: tub shower with chair Laundry: family completes Equipment Owned: Walker- Wheeled, Lift Chair, Grab Bars- Toilet, Grab Bars- Shower, Shower Chair, Hand Held Shower, Commode- Raised, Emergency Response System PRIOR FUNCTIONAL LEVEL Required Assistance, History of Falls Assistance Required With: Cleaning, Laundry, Meals, Medication Management, Stairs, Safety, Self Care, Shopping, Transportation, Finances Pt questionable historian, pt reports IND with ADLS, family completes IALDs. ambulates with wheeled walker, history of falls (unable to recall an approximate amount however), sleeps in adjustable bed. Uses HOB elevated to get out of bed, uses lift chair during the day. States shw walks in the hallway every hour. THERAPY DIAGNOSIS Reduced mobility-other, Muscle Weakness (generalized) TREATMENT INTERVENTIONS Gait Training (76890), Therapeutic Activity (69323) Timed Code Treatment (minutes): 29 Skilled Treatment Time (minutes): 29 EXERCISE None performed this session TRAINING AND EDUCATION PROVIDED Gait Pattern, Reduction of Deviations, Standing Balance, Home Set-up/Modifications THERAPEUTIC SKILLS USED Activity Dosing, Cuing Verbal PLAN PT Frequency: 6 Times Per Week (3-4 weeks) Treatment Interventions: Strengthening, Functional Mobility Training SIGNATURE: Chase Bartlett PTA PATIENT NAME: Jackelyn Bradshaw DATE: February 17, 2024 TIME: 11:44 AM [facility] THERAPY NT HNO ID: [id number] Author: BI GARCIA OTR/Lashae Service: ? Author Type: Occupational Therapist Type: Therapy (PT/OT/Speech/Resp) Filed: 02/17/2024 10:39 Note Text: Occupational Therapy Care Home Facility Treatment Summary SERVICE DATE: 02/17/2024 SERVICE TIME: 0952 to 1023 ROOM: [place] [address] OT 6 Clicks Score: 21 DISCHARGE RECOMMENDATIONS Home OT (vs discharge to [facility]) Recommended Discharge Disposition Comments: Pt's discharge disposition is dependent upon progress made and family ability to provide necessary assistance Anticipated Discharge Needs: Family Training, Physical Assist at Home, Supervision at Home, Equipment Recommended Discharge Equipment: To Be Determined GOALS Patient will demonstrate progress with self-care, cognitive and/or coping needs identified to allow safe discharge to home with available support and/or physical assistance. Grooming with: Set Up Upper Body Bathing with: Set Up Upper Body Dressing with: Set Up Lower Body Bathing with: Minimal Assistance Lower Body Dressing with: Moderate Assistance Toilet Hygiene with: Moderate Assistance Chair Transfer with: Contact Guard Assistance Toilet Transfer with: Contact Guard Assistance Shower Transfer with: Minimal Assistance Tolerate (minutes of functional activity): 45 Functional Activity with: Contact Guard Assistance Progress Toward Goals: Progressing as expected Rehab Potential: Good ASSESSMENT Response to Therapy Interventions: Good Participation in Activities, Improved Tolerance for Activity, Requires Additional Time to Complete Activities Pt completed LB dressing and toileting this date, with Min A required for pulling pants up completely posteriorly. Pt SBA for fxl transfers and mobility. Pt with improved ROM / mobility for LB dressing. Plan for Next Visit: Bathing Training, Bed Mobility, Chair/Commode Transfer Training, Dressing Training, Exercise Instruction/Handout, Grooming Training, Standing Balance, Standing Tolerance, Toileting Instruction PRECAUTIONS Weight Bearing Restrictions ORIF L hip Left Lower Extremity Weight Bearing Status: WBAT SUBJECTIVE Pt agreeable to OT tx session with no complaints this date. FUNCTIONAL STATUS Activities of Daily Living Assist Level Additional Information Feeding Set Up Grooming Set Up, Additional Information Bathing Upper Body Set Up, Additional Information Bathing Lower Body Minimal Assistance, Additional Information Dressing Upper Body Minimal Assistance, Additional Information Dressing Lower Body Minimal Assistance, Additional Information donned sweatpants seated EOB with shuttle route vehicle operator, Min A required for pulling up over buttocks Toileting Supervision, Additional Information BSC frame over toilet in bathroom. Pt able to complete oliver-area hygiene Instrumental Activities of Daily Living Assist Level Additional Information Meal/Beverage Prep Total Assistance Cleaning Total Assistance Laundry Total Assistance Medication Management with Strategies Total Assistance Mobility Assist Level Additional Information Bed Mobility Rolling: Minimal Assistance Supine To Sit: Stand By Assistance, Additional Information Sit To Supine: Stand By Assistance, Contact Guard Assistance Sit to Stand Stand By Assistance from bed and chair and BSC Stand to Sit Stand By Assistance Bed to Chair Stand By Assistance Bed To Chair Transfer Type: Stepping Bed To Chair Transfer Equipment: Wheeled Walker, Gait Belt Toilet/Commode Stand By Assistance using commode frame over toilet in bathroom Shower Functional Mobility Stand By Assistance Functional Mobility Device: Wheeled Walker CURRENT HOSPITAL COURSE Admt to [facility] on 01/11 due to mechanical fall at home resulting in L intertrochanteric hip fracture. s/p ORIF L hip. Relevant Past Medical History: Arthitis, CA, HTN, lymphedema, dementia HOME LIVING Patient Lives With: Family (grandson and his and 1year old child, p-atient's dtr lives nearby) Assistance Available: Part-Time (need to verify with family. Patient poor historian.) Entry To Home: Stairs, With Rail Number Of Stairs Into Home: 4 Number Of Stairs To Bed/Bath: 0 Tub/Shower Type: tub shower with chair Laundry: family completes Equipment Owned: Walker- Wheeled, Lift Chair, Grab Bars- Toilet, Grab Bars- Shower, Shower Chair, Hand Held Shower, Commode- Raised, Emergency Response System PRIOR FUNCTIONAL LEVEL Required Assistance, History of Falls Assistance Required With: Cleaning, Laundry, Meals, Medication Management, Stairs, Safety, Self Care, Shopping, Transportation, Finances Pt questionable historian, pt reports IND with ADLS, family completes IALDs. ambulates with wheeled walker, history of falls (unable to recall an approximate amount however), sleeps in adjustable bed. Uses HOB elevated to get out of bed, uses lift chair during the day. States shw walks in the hallway every hour. Bas (more content not included)... [facility] SOCIAL WORKon 02-16-2024 SOCIAL WORK HNO ID: [id number] Author: KRYSTYNA FOX LSW Service: Social Work Author Type: Musical String Maker Type: Social Work Filed: 02/17/2024 13:55 Note Text: Summary: Team Rounds MULTIDISCIPLINARY ROUNDS SERVICE DATE: 02/17/2024 ADMISSION DATE: 01/17/2024 SERVICE TIME: 12:30 PM ANTICIPATED D/C DATE: 02/18 Problem List: ACTIVE PROBLEM LIST Htn (Hypertension) Impaired Ambulation Pelvic Joint Pain, Left Cancer of Breast, Intraductal, Left Generalized Weakness Fall Tremors of Nervous System Declining Functional Status Obesity, Class I, Bmi 30-34.9 Aftercare Status Post Hip Surgery Dementia (Hcc) Anemia Deep Tissue Injury Attendees Present at Rounds: CM, DRYING ROOM OPERATOR, NM, OT, PT, SW Needs Discussed on Rounds: Discharge Needs Mobility Plan of Care Anticipated Discharge Disposition: Home with Home Health Last Vitals: BP 162/75 Pulse 63 Temp (Src) 97.9 (Oral) Resp 16 Ht 5' 3 (1.60m) Wt 184 lb 1.4 oz (83.5kg) SpO2 99% BMI 32.62 kg/(m2). O2 Therapy: Room Air SW[facility] Daughter agreeable with 02/18 DC PT: 40 ft distance over the weekend. Patient exceeded goals. OT: Worked with granddaughter during therapy treatment. Verbalized that she was able to care for her. Bed mobility will require continued work. Nursing: DOCUMENTED BY: MICHELA Chanel PATIENT NAME: Jackelyn Bradshaw DATE: February 16, 2024 TIME: 3:43 PM CSN: [id number] [facility] SOCIAL WORK HNO ID: [id number] Author: KRYSTYNA FOX LSW Service: Social Work Author Type: Musical String Maker Type: Social Work Filed: 02/16/2024 10:29 Note Text: Summary: Family Call SOCIAL WORK PROGRESS NOTE Name: Jackelyn Bradshaw Phoned patient's dtr/Guardian Tez. Told her patient has met therapy goals. Tez said I think she's ready to come home. Asked her when she would like patient to DC. Tez responded She's there until Thursday, right? She is agreeable to discharge on 02/18. Said she doesn't think patient needs longer than that. She will let Juanis ([id number]) know. Tez said she doesn't think family needs any more training than what was done after conference. I think we can handle her. Signature: MICHELA Chanel Date: February 16, 2024 Time: 10:25 AM Normal [facility] THERAPY NTon 02-16-2024 THERAPY NT HNO ID: [id number] Author: ELLE HOOVER PT Service: Physical Therapy Author Type: Digital Retoucher Type: Therapy (PT/OT/Speech/Resp) Filed: 02/16/2024 14:52 Note Text: Attestation signed by Elle Hoover PT at 02/16/2024 2:52 PM I reviewed and agree with the documentation corresponding to this therapy visit. SIGNATURE: Elle Hoover PT DATE: February 16, 2024 TIME: 2:52 PM Physical Therapy Care Home Facility Treatment Summary SERVICE DATE: 02/16/2024 SERVICE TIME: 1414 to 1437 ROOM: [place] [address] PT 6 Clicks Score: 19 DISCHARGE RECOMMENDATIONS Home PT Recommended Discharge Disposition Comments: Anticipate need for 24 hour care upon dc due to cognitive limitations, and expected limitations post hip fx. Anticipated Discharge Needs: Family Training, Physical Assist at Home, Supervision at Home, Equipment Recommended Discharge Equipment: To Be Determined GOALS Patient will demonstrate progress with functional mobility to allow safe discharge to home with available support and/or physical assistance. Able to Perform HEP with: Supervision Rolling with: Modified Independent Transfer Supine to/from Sit with: Modified Independent Transfer Sit to/from Stand with: Modified Independent Ambulate with: Stand By Assistance Distance: 50 Device: Wheeled Walker Ambulate Up and Down Steps with: Minimal Assistance Number of Steps: 4 Device: Rail, Cane Rehab Potential: Fair Progress Toward Goals: Progressing as expected ASSESSMENT Response to Therapy Interventions: Good Participation in Activities Patient able to ambulate again this afternoon however she is more fatigued this afternoon and requires a short seated rest break. Plan for Next Visit: Gait Training PRECAUTIONS Weight Bearing Restrictions ORIF L hip Left Lower Extremity Weight Bearing Status: WBAT SUBJECTIVE I'll go for a walk FUNCTIONAL STATUS Bed Mobility Rolling: Stand By Assistance (with use of bed rails) Supine To Sit: Supervision Sit to Supine: Minimal Assistance Scooting: Supervision Transfers Sit To Stand: Stand By Assistance Stand To Sit: Stand By Assistance Bed to Chair Contact Guard Assistance Bed To Chair Transfer Type: Stepping Bed To Chair Transfer Equipment: Gait Belt, Wheeled Walker Gait Stand By Assistance Gait Device: Wheeled Walker General Deviations/Observation s: Non-functional gait speed, Flexed trunk posture Gait Distance (feet): 25 x 2 Gait Deviations Left Lower Extremity: Step length decreased, Stance time decreased Stairs CURRENT HOSPITAL COURSE Admt to [facility] on 01/11 due to mechanical fall at home resulting in L intertrochanteric hip fracture. s/p ORIF L hip. Relevant Past Medical History: Arthitis, CA, HTN, lymphedema, dementia HOME LIVING Patient Lives With: Family (grandson and his and 1year old child, p-atient's dtr lives nearby) Assistance Available: Part-Time (need to verify with family. Patient poor historian.) Entry To Home: Stairs, With Rail Number Of Stairs Into Home: 4 Number Of Stairs To Bed/Bath: 0 Tub/Shower Type: tub shower with chair Laundry: family completes Equipment Owned: Walker- Wheeled, Lift Chair, Grab Bars- Toilet, Grab Bars- Shower, Shower Chair, Hand Held Shower, Commode- Raised, Emergency Response System PRIOR FUNCTIONAL LEVEL Required Assistance, History of Falls Assistance Required With: Cleaning, Laundry, Meals, Medication Management, Stairs, Safety, Self Care, Shopping, Transportation, Finances Pt questionable historian, pt reports IND with ADLS, family completes IALDs. ambulates with wheeled walker, history of falls (unable to recall an approximate amount however), sleeps in adjustable bed. Uses HOB elevated to get out of bed, uses lift chair during the day. States shw walks in the hallway every hour. THERAPY DIAGNOSIS Reduced mobility-other, Muscle Weakness (generalized) TREATMENT INTERVENTIONS Gait Training (76426) Timed Code Treatment (minutes): 23 Skilled Treatment Time (minutes): 23 EXERCISE None performed this session TRAINING AND EDUCATION PROVIDED Gait Pattern, Reduction of Deviations, Discharge Planning THERAPEUTIC SKILLS USED Activity Dosing, Cuing Verbal PLAN PT Frequency: 6 Times Per Week (3-4 weeks) Treatment Interventions: Strengthening, Functional Mobility Training SIGNATURE: Chase Bartlett PTA PATIENT NAME: Jackelyn Bradshaw DATE: February 16, 2024 TIME: 2:44 PM Normal [facility] THERAPY NT HNO ID: [id number] Author: CHASE BARTLETT PTA Service: Physical Therapy Author Type: Digital Retoucher Type: Therapy (PT/OT/Speech/Resp) Filed: 02/16/2024 10:38 Note Text: Attestation signed by Mickie Rutledge PT, DPT at 02/16/2024 12:24 PM I reviewed and agree with the documentation corresponding to this therapy visit. SIGNATURE: Mickie Rutledge PT, DPT DATE: February 16, 2024 TIME: 12:24 PM Physical Therapy Care Home Facility Treatment Summary SERVICE DATE: 02/16/2024 SERVICE TIME: 1010 to 1030 ROOM: [place] [address] PT 6 Clicks Score: 19 DISCHARGE RECOMMENDATIONS Home PT Recommended Discharge Disposition Comments: Anticipate need for 24 hour care upon dc due to cognitive limitations, and expected limitations post hip fx. Anticipated Discharge Needs: Family Training, Physical Assist at Home, Supervision at Home, Equipment Recommended Discharge Equipment: To Be Determined GOALS Patient will demonstrate progress with functional mobility to allow safe discharge to home with available support and/or physical assistance. Able to Perform HEP with: Supervision Rolling with: Modified Independent Transfer Supine to/from Sit with: Modified Independent Transfer Sit to/from Stand with: Modified Independent Ambulate with: Stand By Assistance Distance: 50 Device: Wheeled Walker Ambulate Up and Down Steps with: Minimal Assistance Number of Steps: 4 Device: Rail, Cane Rehab Potential: Fair Progress Toward Goals: Progressing as expected ASSESSMENT Response to Therapy Interventions: Good Participation in Activities Patient able to walk a little bit farther this session with a short standing rest break needed due to fatigue. Plan for Next Visit: Gait Training PRECAUTIONS Weight Bearing Restrictions ORIF L hip Left Lower Extremity Weight Bearing Status: WBAT SUBJECTIVE I've been up to the bathrrom a couple of times already FUNCTIONAL STATUS Bed Mobility Rolling: Stand By Assistance (with use of bed rails) Supine To Sit: Supervision Sit to Supine: Minimal Assistance Scooting: Supervision Transfers Sit To Stand: Stand By Assistance Stand To Sit: Stand By Assistance Bed to Chair Contact Guard Assistance Bed To Chair Transfer Type: Stepping Bed To Chair Transfer Equipment: Gait Belt, Wheeled Walker Gait Contact Guard Assistance Gait Device: Wheeled Walker General Deviations/Observation s: Non-functional gait speed, Flexed trunk posture Gait Distance (feet): 30 x 2 Gait Deviations Left Lower Extremity: Step length decreased, Stance time decreased Stairs CURRENT HOSPITAL COURSE Admt to [facility] on 01/11 due to mechanical fall at home resulting in L intertrochanteric hip fracture. s/p ORIF L hip. Relevant Past Medical History: Arthitis, CA, HTN, lymphedema, dementia HOME LIVING Patient Lives With: Family (grandson and his and 1year old child, p-atient's dtr lives nearby) Assistance Available: Part-Time (need to verify with family. Patient poor historian.) Entry To Home: Stairs, With Rail Number Of Stairs Into Home: 4 Number Of Stairs To Bed/Bath: 0 Tub/Shower Type: tub shower with chair Laundry: family completes Equipment Owned: Walker- Wheeled, Lift Chair, Grab Bars- Toilet, Grab Bars- Shower, Shower Chair, Hand Held Shower, Commode- Raised, Emergency Response System PRIOR FUNCTIONAL LEVEL Required Assistance, History of Falls Assistance Required With: Cleaning, Laundry, Meals, Medication Management, Stairs, Safety, Self Care, Shopping, Transportation, Finances Pt questionable historian, pt reports IND with ADLS, family completes IALDs. ambulates with wheeled walker, history of falls (unable to recall an approximate amount however), sleeps in adjustable bed. Uses HOB elevated to get out of bed, uses lift chair during the day. States shw walks in the hallway every hour. THERAPY DIAGNOSIS Reduced mobility-other, Muscle Weakness (generalized) TREATMENT INTERVENTIONS Gait Training (21187) Timed Code Treatment (minutes): 20 Skilled Treatment Time (minutes): 20 EXERCISE None performed this session TRAINING AND EDUCATION PROVIDED Gait Pattern, Reduction of Deviations, Discharge Planning THERAPEUTIC SKILLS USED Activity Dosing, Cuing Verbal PLAN PT Frequency: 6 Times Per Week (3-4 weeks) Treatment Interventions: Strengthening, Functional Mobility Training SIGNATURE: Chase Bartlett PTA PATIENT NAME: Jackelyn Bradshaw DATE: February 16, 2024 TIME: 10:38 AM Normal [facility] THERAPY NT HNO ID: [id number] Author: ISABELLA SANCHEZ OTR/L Service: Occupational Therapy Author Type: Occupational Therapist Type: Therapy (PT/OT/Speech/Resp) Filed: 02/16/2024 09:56 Note Text: Occupational Therapy Care Home Facility Treatment Summary SERVICE DATE: 02/16/2024 SERVICE TIME: 849 to 932 ROOM: [place] [address] OT 6 Clicks Score: 21 DISCHARGE RECOMMENDATIONS Home OT (vs discharge to [facility]/ECF) Recommended Discharge Disposition Comments: Pt's discharge disposition is dependent upon progress made and family ability to provide necessary assistance Anticipated Discharge Needs: Family Training, Physical Assist at Home, Supervision at Home, Equipment Recommended Discharge Equipment: To Be Determined GOALS Patient will demonstrate progress with self-care, cognitive and/or coping needs identified to allow safe discharge to home with available support and/or physical assistance. Grooming with: Set Up Upper Body Bathing with: Set Up Upper Body Dressing with: Set Up Lower Body Bathing with: Minimal Assistance Lower Body Dressing with: Moderate Assistance Toilet Hygiene with: Moderate Assistance Chair Transfer with: Contact Guard Assistance Toilet Transfer with: Contact Guard Assistance Shower Transfer with: Minimal Assistance Tolerate (minutes of functional activity): 45 Functional Activity with: Contact Guard Assistance Progress Toward Goals: Progressing as expected Rehab Potential: Good ASSESSMENT Response to Therapy Interventions: Good Participation in Activities, Requires Additional Time to Complete Activities Pt seen for ADL training session this date; pt's anthony Olivarez present who is primary caregiver for pt at home. Instruction with anthony provided throughout session along with observation of pt's current skill level in ADLs and functional mobility skills. Recommended the following: SBA/CGA for all transfers/ambulation to bathroom and in the room; use of 3-in-1 commode over toilet for increased ease of transfers; minimal assist for dressing/bathing/toile ting tasks as needed; wait for home health therapist to assess and recommend proper tub transfer techniques as pt is not ready for this type of transfer at this time. Anthony observed pt complete ambulation to bathroom, sit to stand transfers, lower body dressing with use of shuttle route vehicle operator. Reviewed all equipment needs for pt upon discharge and discussed need for assistance with moving sit to supine for LEs into bed. Anthony stated understanding of all instruction given today. Offered further training with pt in future. Anthony states she feels comfortable providing necessary care for pt upon discharge and is aware that discharge may be 02/06/1702/19/2024 pending insurance authorization. Discussed with family and pt that pt has met all OT goals and is ready for next step of home with home health therapy to continue in her home environment. Plan for Next Visit: Bed Mobility, Chair/Commode Transfer Training, Dressing Training, Exercise Instruction/Handout, Sit to Stand Transfers, Standing Balance, Standing Tolerance, Toileting Instruction PRECAUTIONS Weight Bearing Restrictions ORIF L hip Left Lower Extremity Weight Bearing Status: WBAT SUBJECTIVE Pt stated she slept well last night and wants to go home soon. Pt's anthony present for session and stated understanding of all instruction given by this therapist FUNCTIONAL STATUS Activities of Daily Living Assist Level Additional Information Feeding Set Up Grooming Set Up, Additional Information while seated to comb hair and clean/brush dentures. Instructed family that pt should be seated for grooming tasks and not stand at sink. Bathing Upper Body Set Up, Additional Information to sponge bathe while seated on commode frame over toilet in bathroom. Assist for back only Bathing Lower Body Minimal Assistance, Additional Information to sponge bathe while seated; assist for bathing distal LEs due to dressings on left heel. In standing, pt completed bathing oliver/buttocks areas with SBA only Dressing Upper Body Minimal Assistance, Additional Information to pull shirt down back Dressing Lower Body Minimal Assistance, Additional Information SBA to francisco shorts with use of shuttle route vehicle operator; minimal assist to pull up over hips in standing due to tightness of clothing. Minimal assist is needed for socks due to dressing on left heel. Assist for GRACIA hose Toileting Stand By Assistance, Additional Information using commode frame over toilet in bathroom; pt able to complete clothing mgt (briefs only worn) and hygiene including following a BM with SBA and good thoroughness. Instrumental Activities of Daily Living Assist Level Additional Information Meal/Beverage Prep Total Assistance Cleaning Total Assistance Laundry Total Assistance Medication Management with Strategies Total Assistance Mobility Assist Level Additional Information Bed Mobility Rolling: Minimal (more content not included)... Normal [facility] THERAPY NTon 02-15-2024 THERAPY NT HNO ID: [id number] Author: LETICIA WALTERS PT Service: Physical Therapy Author Type: Physical Therapist Type: Therapy (PT/OT/Speech/Resp) Filed: 02/15/2024 16:03 Note Text: Summary: Insurance Update Physical Therapy Care Home Facility Treatment Summary SERVICE DATE: 02/15/2024 SERVICE TIME: 1515 to 1538 ROOM: [place] [address] PT 6 Clicks Score: 19 DISCHARGE RECOMMENDATIONS Home PT Recommended Discharge Disposition Comments: Anticipate need for 24 hour care upon dc due to cognitive limitations, and expected limitations post hip fx. Anticipated Discharge Needs: Family Training, Physical Assist at Home, Supervision at Home, Equipment Recommended Discharge Equipment: To Be Determined GOALS Patient will demonstrate progress with functional mobility to allow safe discharge to home with available support and/or physical assistance. Able to Perform HEP with: Supervision Rolling with: Modified Independent Transfer Supine to/from Sit with: Modified Independent Transfer Sit to/from Stand with: Modified Independent Ambulate with: Stand By Assistance Distance: 50 Device: Wheeled Walker Ambulate Up and Down Steps with: Minimal Assistance Number of Steps: 4 Device: Rail, Cane Rehab Potential: Fair Progress Toward Goals: Progressing as expected ASSESSMENT Response to Therapy Interventions: Low Activity Tolerance (fatigue) Demonstrates improved gait pattern with lowered walker. Requires frequent VC to maintain upright posture when walking. Increased fatigue noted with PM session. Patient has met or nearly met all PT goals. Still requires assistance to get lower extremity into bed, especially when fatigued. Caregiver training required to up date family to current level. Training provided previously when patient was at a lower level of function. Anticipate discharge to home in next 1-2 days with 24 hour assistance and Home PT to follow. Plan for Next Visit: Gait Training PRECAUTIONS Weight Bearing Restrictions ORIF L hip Left Lower Extremity Weight Bearing Status: WBAT SUBJECTIVE reports fatigue. Has been sitting up all day. FUNCTIONAL STATUS Bed Mobility Rolling: Stand By Assistance (with use of bed rails) Supine To Sit: Supervision slow movement but able to complete unaided with use of bed rail. Has bed rail at home. Sit to Supine: Minimal Assistance assist for L LE only Scooting: Stand By Assistance Transfers Sit To Stand: Contact Guard Assistance Stand To Sit: Contact Guard Assistance Bed to Chair Contact Guard Assistance Bed To Chair Transfer Type: Stepping Bed To Chair Transfer Equipment: Gait Belt, Wheeled Walker Gait Contact Guard Assistance Gait Device: Wheeled Walker Gait Distance (feet): 30 x 2 Stairs CURRENT HOSPITAL COURSE Admt to [facility] on 01/11 due to mechanical fall at home resulting in L intertrochanteric hip fracture. s/p ORIF L hip. Relevant Past Medical History: Arthitis, CA, HTN, lymphedema, dementia HOME LIVING Patient Lives With: Family (grandson and his and 1year old child, p-atraghu's dtr lives nearby) Assistance Available: Part-Time (need to verify with family. Patient poor historian.) Entry To Home: Stairs, With Rail Number Of Stairs Into Home: 4 Number Of Stairs To Bed/Bath: 0 Tub/Shower Type: tub shower with chair Laundry: family completes Equipment Owned: Walker- Wheeled, Lift Chair, Grab Bars- Toilet, Grab Bars- Shower, Shower Chair, Hand Held Shower, Commode- Raised, Emergency Response System PRIOR FUNCTIONAL LEVEL Required Assistance, History of Falls Assistance Required With: Cleaning, Laundry, Meals, Medication Management, Stairs, Safety, Self Care, Shopping, Transportation, Finances Pt questionable historian, pt reports IND with ADLS, family completes IALDs. ambulates with wheeled walker, history of falls (unable to recall an approximate amount however), sleeps in adjustable bed. Uses HOB elevated to get out of bed, uses lift chair during the day. States shw walks in the hallway every hour. THERAPY DIAGNOSIS Reduced mobility-other, Muscle Weakness (generalized) TREATMENT INTERVENTIONS Therapeutic Activity (16339), Gait Training (05109) Timed Code Treatment (minutes): 23 Skilled Treatment Time (minutes): 23 EXERCISE None performed this session TRAINING AND EDUCATION PROVIDED Gait Pattern, Reduction of Deviations, Positioning, Bed Mobility THERAPEUTIC SKILLS USED Activity Dosing, Cues for Sequencing/Proper Technique for Activity, Cuing Tactile, Cuing Verbal, Physical Assist, Postural Alignment Correction PLAN PT Frequency: 6 Times Per Week (3-4 weeks) Treatment Interventions: Strengthening, Functional Mobility Training SIGNATURE: Leticia Walters PT PATIENT NAME: Jackelyn Bradshaw DATE: February (more content not included)... Normal [facility] THERAPY NT HNO ID: [id number] Author: ISABELLA SANCHEZ, OTR/L Service: Occupational Therapy Author Type: Occupational Therapist Type: Therapy (PT/OT/Speech/Resp) Filed: 02/15/2024 15:33 Note Text: Summary: OT Insurance Update Occupational Therapy Care Home Facility Treatment SERVICE DATE: 02/15/2024 SERVICE TIME: 1400 to 1440 ROOM: [place] [address] Recommended Discharge Disposition: Home OT (vs discharge to [facility]) Recommended Discharge Disposition Comments: Pt's discharge disposition is dependent upon progress made and family ability to provide necessary assistance Anticipated Discharge Needs: Family Training, Physical Assist at Home, Supervision at Home, Equipment Recommended Discharge Equipment: To Be Determined OT 6 Clicks Score: 21 Precautions/Activity Restrictions: Weight Bearing Restrictions Precaution/Activity Restriction Comments: ORIF L hip Isolation Type: None Extremity With Weight Bearing Restricted: Left Lower Extremity Left Lower Extremity Weight Bearing Status: WBAT Current Hospital Course: Admt to [facility] on 01/11 due to mechanical fall at home resulting in L intertrochanteric hip fracture. s/p ORIF L hip. Relevant Past Medical History: Arthitis, [place], HTN, lymphedema, dementia Response to Therapy Interventions: Good Participation in Activities, On-Track to Achieve Discharge Goals, Requires Additional Time to Complete Activities, Low Activity Tolerance Assessment Comments: Pt has demonstrated significant improvement overall in her functional mobility skills and is now at a SBA level for moving sit to stand, and light CGA to ambulate to bathroom for toileting. Pt is no longer using BSC and completes all toileting in bathroom at this time. Pt is at a minimal assist level overall for basic ADL tasks and requires some assistance for bed mobility skills. Pt has met or nearly met all OT goals, but it appears that her family needs further training before feeling comfortable in managing pt at home. Will address caregiver training as primary issue to be addressed prior to discharge; requested that social media developer contact primary caregiver/family to arrange for scheduled training sessions with therapy to insure that proper techniques/equipment are being utilized by caregivers and to increase their comfort level in caring for pt. Expects discharge home to be by end of the week, 4-5 days. See below for specifics. Treatment Interventions: Education, Self Care/Home Management, Energy Conservation Training, Strengthening, Functional Mobility Training, Balance Training Plan for Next Visit: Bathing Training, Bed Mobility, Chair/Commode Transfer Training, Dressing Training, Energy Conservation, Grooming Training, Shower/Tub Transfer Training, Sit to Stand Transfers, Standing Balance, Standing Tolerance, Toileting Instruction Home Environment Patient Lives With: Family (grandson and his and 1year old child, p-atient's dtr lives nearby) Assistance Available: Part-Time (need to verify with family. Patient poor historian.) Entry To Home: Stairs, With Rail Number Of Stairs Into Home: 4 Number Of Stairs To Bed/Bath: 0 Tub/Shower Type: tub shower with chair Laundry: family completes Equipment Owned: Walker- Wheeled, Lift Chair, Grab Bars- Toilet, Grab Bars- Shower, Shower Chair, Hand Held Shower, Commode- Raised, Emergency Response System Prior Functional Level: Required Assistance, History of Falls Assistance Required With: Cleaning, Laundry, Meals, Medication Management, Stairs, Safety, Self Care, Shopping, Transportation, Finances Prior Functional Level Comments: Pt questionable historian, pt reports IND with ADLS, family completes IALDs. ambulates with wheeled walker, history of falls (unable to recall an approximate amount however), sleeps in adjustable bed. Uses HOB elevated to get out of bed, uses lift chair during the day. States shw walks in the hallway every hour. 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 [facility] THERAPY NT HNO ID: [id number] Author: LETICIA WALTERS PT Service: Physical Therapy Author Type: Digital Retoucher Type: Therapy (PT/OT/Speech/Resp) Filed: 02/15/2024 11:40 Note Text: Attestation signed by Leticia Walters, PT at 02/15/2024 11:40 AM I reviewed and agree with the documentation corresponding to this therapy visit. SIGNATURE: Leticia Walters PT DATE: February 15, 2024 TIME: 11:40 AM Physical Therapy Care Home Facility Treatment Summary SERVICE DATE: 02/15/2024 SERVICE TIME: 844 ROOM: [place] [address] PT 6 Clicks Score: 19 DISCHARGE RECOMMENDATIONS Home PT Recommended Discharge Disposition Comments: Anticipate need for 24 hour care upon dc due to cognitive limitations, and expected limitations post hip fx. Anticipated Discharge Needs: Family Training, Physical Assist at Home, Supervision at Home, Equipment Recommended Discharge Equipment: To Be Determined GOALS Patient will demonstrate progress with functional mobility to allow safe discharge to home with available support and/or physical assistance. Able to Perform HEP with: Supervision Rolling with: Modified Independent Transfer Supine to/from Sit with: Modified Independent Transfer Sit to/from Stand with: Modified Independent Ambulate with: Stand By Assistance Distance: 50 Device: Wheeled Walker Ambulate Up and Down Steps with: Minimal Assistance Number of Steps: 4 Device: Rail, Cane Rehab Potential: Fair Progress Toward Goals: Progressing as expected ASSESSMENT Response to Therapy Interventions: Good Participation in Activities Patient now able to perform almost all mobility on her own with ocassional assist or cueing for technique and fatigue. Patient also ambulating farther without the need for as many rest breaks while requiring contact gaurd assist and cueing to look up and stand up tall. Plan for Next Visit: Gait Training PRECAUTIONS Weight Bearing Restrictions ORIF L hip Left Lower Extremity Weight Bearing Status: WBAT SUBJECTIVE I might get out of here thursday FUNCTIONAL STATUS Bed Mobility Rolling: Stand By Assistance (with use of bed rails) Supine To Sit: Supervision Sit to Supine: Minimal Assistance Scooting: Stand By Assistance Transfers Sit To Stand: Contact Guard Assistance Stand To Sit: Contact Guard Assistance Bed to Chair Contact Guard Assistance Bed To Chair Transfer Type: Stepping Bed To Chair Transfer Equipment: Gait Belt, Wheeled Walker Gait Contact Guard Assistance Gait Device: Wheeled Walker General Deviations/Observation s: Non-functional gait speed, Flexed trunk posture Gait Distance (feet): 30 x 2 Gait Deviations Left Lower Extremity: Step length decreased, Stance time decreased Stairs CURRENT HOSPITAL COURSE Admt to [facility] on 01/11 due to mechanical fall at home resulting in L intertrochanteric hip fracture. s/p ORIF L hip. Relevant Past Medical History: Arthitis, CA, HTN, lymphedema, dementia HOME LIVING Patient Lives With: Family (grandson and his and 1year old child, p-atient's dtr lives nearby) Assistance Available: Part-Time (need to verify with family. Patient poor historian.) Entry To Home: Stairs, With Rail Number Of Stairs Into Home: 4 Number Of Stairs To Bed/Bath: 0 Tub/Shower Type: tub shower with chair Laundry: family completes Equipment Owned: Walker- Wheeled, Lift Chair, Grab Bars- Toilet, Grab Bars- Shower, Shower Chair, Hand Held Shower, Commode- Raised, Emergency Response System PRIOR FUNCTIONAL LEVEL Required Assistance, History of Falls Assistance Required With: Cleaning, Laundry, Meals, Medication Management, Stairs, Safety, Self Care, Shopping, Transportation, Finances Pt questionable historian, pt reports IND with ADLS, family completes IALDs. ambulates with wheeled walker, history of falls (unable to recall an approximate amount however), sleeps in adjustable bed. Uses HOB elevated to get out of bed, uses lift chair during the day. States shw walks in the hallway every hour. THERAPY DIAGNOSIS Reduced mobility-other, Muscle Weakness (generalized) TREATMENT INTERVENTIONS Therapeutic Exercise (85335), Therapeutic Activity (53621), Gait Training (95877) Timed Code Treatment (minutes): 43 Skilled Treatment Time (minutes): 43 EXERCISE Exercises Exercise: ankle pumps x10, LAQ x10 TRAINING AND EDUCATION PROVIDED Benefits of In-Hospital Mobility, Discharge Planning, Gait Pattern, Reduction of Deviations, Falls Prevention, Home Set-up/Modifications, Standing Balance THERAPEUTIC SKILLS USED Activity Dosing, Cuing Visual, Cuing Verbal PLAN PT Frequency: 6 Times Per Week (3-4 weeks) Treatment Interventions: Strengthening, Functional Mobility Training SIGNATURE: Chase Bartlett PTA PATIENT NAM (more content not included)... [facility] NURSING PROGon 02-13-2024 NURSING PROG HNO ID: [id number] Author: FRANCA HARRISON, RN Service: Nursing Author Type: Registered Nurse Type: Nursing Progress Note Filed: 02/13/2024 08:19 Note Text: Patient sitting up in bed for breakfast. All treatments and procedures were explained. Patient verbalized understanding. Patient denies any pain at this time. Patient states, I have already been up to the BR this morning. No questions or concerns were voiced at this time. [facility] THERAPY NTon 02-13-2024 THERAPY NT HNO ID: [id number] Author: ELLE HOOVER, PT Service: Physical Therapy Author Type: Physical Therapist Type: Therapy (PT/OT/Speech/Resp) Filed: 02/13/2024 11:15 Note Text: Physical Therapy Care Home Facility Treatment Summary SERVICE DATE: 02/13/2024 SERVICE TIME: 1028 to 1058 ROOM: [place] [address] PT 6 Clicks Score: 18 DISCHARGE RECOMMENDATIONS Home PT Recommended Discharge Disposition Comments: Anticipate need for 24 hour care upon dc due to cognitive limitations, and expected limitations post hip fx. Anticipated Discharge Needs: Family Training, Physical Assist at Home, Supervision at Home, Equipment Recommended Discharge Equipment: To Be Determined GOALS Patient will demonstrate progress with functional mobility to allow safe discharge to home with available support and/or physical assistance. Able to Perform HEP with: Supervision Rolling with: Modified Independent Transfer Supine to/from Sit with: Modified Independent Transfer Sit to/from Stand with: Modified Independent Ambulate with: Stand By Assistance Distance: 50 Device: Wheeled Walker Ambulate Up and Down Steps with: Minimal Assistance Number of Steps: 4 Device: Rail, Cane Rehab Potential: Fair Progress Toward Goals: Progressing as expected ASSESSMENT Response to Therapy Interventions: Good Participation in Activities, Improved Tolerance for Activity Overall improved ambulation distance this date with frequent cueing for upright posturing and looking ahead vs. at floor with walker raised one notch to see if that was able to help with upright posturing with mild improvements. Discussed with patient regarding focus on improvement of step length and clearance as able and added scap retracts to HEP for improved upright posturing during mobilization. Plan for Next Visit: Gait Training, Bed Mobility (postural retraining) PRECAUTIONS Weight Bearing Restrictions ORIF L hip Left Lower Extremity Weight Bearing Status: WBAT SUBJECTIVE I'm pretty tired out now after walking 4 bouts. FUNCTIONAL STATUS Bed Mobility Rolling: Stand By Assistance (with use of bed rails) Supine To Sit: Supervision Sit to Supine: Minimal Assistance Scooting: Stand By Assistance Transfers Sit To Stand: Contact Guard Assistance improved sequencing Stand To Sit: Contact Guard Assistance Bed to Chair Contact Guard Assistance Bed To Chair Transfer Type: Stepping Bed To Chair Transfer Equipment: Gait Belt, Wheeled Walker Gait Contact Guard Assistance Gait Device: Wheeled Walker Gait Distance (feet): 30' x 2, and 20' x 2 Stairs CURRENT HOSPITAL COURSE Admt to [facility] on 01/11 due to mechanical fall at home resulting in L intertrochanteric hip fracture. s/p ORIF L hip. Relevant Past Medical History: Arthitis, CA, HTN, lymphedema, dementia HOME LIVING Patient Lives With: Family (grandson and his and 1year old child, p-atient's dtr lives nearby) Assistance Available: Part-Time (need to verify with family. Patient poor historian.) Entry To Home: Stairs, With Rail Number Of Stairs Into Home: 4 Number Of Stairs To Bed/Bath: 0 Tub/Shower Type: tub shower with chair Laundry: family completes Equipment Owned: Walker- Wheeled, Lift Chair, Grab Bars- Toilet, Grab Bars- Shower, Shower Chair, Hand Held Shower, Commode- Raised, Emergency Response System PRIOR FUNCTIONAL LEVEL Required Assistance, History of Falls Assistance Required With: Cleaning, Laundry, Meals, Medication Management, Stairs, Safety, Self Care, Shopping, Transportation, Finances Pt questionable historian, pt reports IND with ADLS, family completes IALDs. ambulates with wheeled walker, history of falls (unable to recall an approximate amount however), sleeps in adjustable bed. Uses HOB elevated to get out of bed, uses lift chair during the day. States shw walks in the hallway every hour. THERAPY DIAGNOSIS Reduced mobility-other, Muscle Weakness (generalized) TREATMENT INTERVENTIONS Therapeutic Exercise (41743), Gait Training (26739) Timed Code Treatment (minutes): 30 Skilled Treatment Time (minutes): 30 EXERCISE Exercises Exercise: Seated scapular retractions with education that patient can add resistance band for improved strength as able x 5 for improved upright posture during ambulation. Seated ankle pumps x 20 BLEs TRAINING AND EDUCATION PROVIDED Benefits of In-Hospital Mobility, Discharge Planning, Disease Specific Education, Exercise Program, Expected Functional Level, Falls Prevention, Gait Pattern, Reduction of Deviations, Home Safety THERAPEUTIC SKILLS USED Activity Dosing, Cues for Sequencing/Proper Technique for Activity, Cuing Tactile, Cuing Verbal, Facilitation of Joint Range of Motion, Muscle Activation Facilitation, Physical Assist, Postural Alignment Correction PLAN PT Frequency: 6 Times Per Week (3-4 weeks) Treatment Interventions: Strengthening, Functional Mobility Training (more content not included)... [facility] SOCIAL WORKon 02-12-2024 SOCIAL WORK HNO ID: [id number] Author: KRYSTYNA FOX LSW Service: Social Work Author Type: Musical String Maker Type: Social Work Filed: 02/12/2024 16:42 Note Text: Summary: Family Call SOCIAL WORK PROGRESS NOTE Name: Jackelyn Bradshaw Patient's insurance wants another update on 02/15. Phoned daughter Tez to relay this. She is very pleased, stating the longer patient stays, the stronger she will be. Tez requesting that patient not use BSC if she doesn't need to. Would like patient to be walking to the bathroom if appropriate. Relayed this to therapy/nursing. Signature: MICHELA Chanel Date: February 12, 2024 Time: 4:39 PM [facility] THERAPY NTon 02-12-2024 THERAPY NT HNO ID: [id number] Author: LETICIA WALTERS, PT Service: Physical Therapy Author Type: Physical Therapist Type: Therapy (PT/OT/Speech/Resp) Filed: 02/12/2024 12:32 Note Text: Physical Therapy Care Home Facility Treatment Summary SERVICE DATE: 02/12/2024 SERVICE TIME: 954 to 1024 ROOM: [place] [address] PT 6 Clicks Score: 18 DISCHARGE RECOMMENDATIONS Home PT Recommended Discharge Disposition Comments: Anticipate need for 24 hour care upon dc due to cognitive limitations, and expected limitations post hip fx. Anticipated Discharge Needs: Family Training, Physical Assist at Home, Supervision at Home, Equipment Recommended Discharge Equipment: To Be Determined GOALS Patient will demonstrate progress with functional mobility to allow safe discharge to home with available support and/or physical assistance. Able to Perform HEP with: Supervision Rolling with: Modified Independent Transfer Supine to/from Sit with: Modified Independent Transfer Sit to/from Stand with: Modified Independent Ambulate with: Stand By Assistance Distance: 50 Device: Wheeled Walker Ambulate Up and Down Steps with: Minimal Assistance Number of Steps: 4 Device: Rail, Cane Rehab Potential: Fair Progress Toward Goals: Progressing as expected ASSESSMENT Response to Therapy Interventions: Good Participation in Activities, Improved Tolerance for Activity Increased walking distance. Needs continued L hip strengthening to facilitate increased ease with bed mobility. Plan for Next Visit: Bed Mobility, Exercise Instruction/Handout, Standing Tolerance, Gait Training PRECAUTIONS Weight Bearing Restrictions ORIF L hip Left Lower Extremity Weight Bearing Status: WBAT SUBJECTIVE I'm going home on the . FUNCTIONAL STATUS Bed Mobility Rolling: Stand By Assistance (with use of bed rails) Supine To Sit: Supervision slow movement but able to complete unaided with use of bed rail. Has bed rail at home. Sit to Supine: Minimal Assistance assist for L LE only Scooting: Stand By Assistance Transfers Sit To Stand: Contact Guard Assistance Stand To Sit: Contact Guard Assistance Bed to Chair Contact Guard Assistance Bed To Chair Transfer Type: Stepping Bed To Chair Transfer Equipment: Wheeled Walker, Gait Belt Gait Contact Guard Assistance Gait Device: Wheeled Walker General Deviations/Observation s: Antalgic gait, Non-functional gait speed, Flexed trunk posture Gait Distance (feet): 50 Gait Deviations Left Lower Extremity: Step length decreased, Stance time decreased Stairs CURRENT HOSPITAL COURSE Admt to [facility] on 01/11 due to mechanical fall at home resulting in L intertrochanteric hip fracture. s/p ORIF L hip. Relevant Past Medical History: Arthitis, CA, HTN, lymphedema, dementia HOME LIVING Patient Lives With: Family (grandson and his and 1year old child, p-atient's dtr lives nearby) Assistance Available: Part-Time (need to verify with family. Patient poor historian.) Entry To Home: Stairs, With Rail Number Of Stairs Into Home: 4 Number Of Stairs To Bed/Bath: 0 Tub/Shower Type: tub shower with chair Laundry: family completes Equipment Owned: Walker- Wheeled, Lift Chair, Grab Bars- Toilet, Grab Bars- Shower, Shower Chair, Hand Held Shower, Commode- Raised, Emergency Response System PRIOR FUNCTIONAL LEVEL Required Assistance, History of Falls Assistance Required With: Cleaning, Laundry, Meals, Medication Management, Stairs, Safety, Self Care, Shopping, Transportation, Finances Pt questionable historian, pt reports IND with ADLS, family completes IALDs. ambulates with wheeled walker, history of falls (unable to recall an approximate amount however), sleeps in adjustable bed. Uses HOB elevated to get out of bed, uses lift chair during the day. States shw walks in the hallway every hour. THERAPY DIAGNOSIS Reduced mobility-other, Muscle Weakness (generalized) TREATMENT INTERVENTIONS Therapeutic Exercise (36602), Therapeutic Activity (16008), Gait Training (56199) Timed Code Treatment (minutes): 30 Skilled Treatment Time (minutes): 30 EXERCISE Exercises Hip Abduction (number of reps): L LE 5x 2 seated in recliner. Instructed to perform ex 3x per day. TRAINING AND EDUCATION PROVIDED Bed Mobility, Exercise Program, Gait Pattern, Reduction of Deviations THERAPEUTIC SKILLS USED Activity Dosing, Cuing Tactile, Cuing Verbal, Cues for Sequencing/Proper Technique for Activity, Physical Assist, Repetitive Task Learning PLAN PT Frequency: 6 Times Per Week (3-4 weeks) Treatment Interventions: Strengthening, Functional Mobility Training SIGNATURE: Leticia Walters PT PATIENT NAME: Jackelyn Bradshaw DATE: February 12, 2024 TIME: 12:32 PM [facility] THERAPY NT HNO ID: [id number] Author: JAYE MARK OTR/Lashae Service: Occupational Therapy Author Type: Occupational Therapist Type: Therapy (PT/OT/Speech/Resp) Filed: 02/12/2024 09:30 Note Text: Occupational Therapy Care Home Facility Treatment Summary SERVICE DATE: 02/12/2024 SERVICE TIME: 841 to 926 ROOM: [place] [address] OT 6 Clicks Score: 21 DISCHARGE RECOMMENDATIONS Home OT (vs discharge to [facility]) Recommended Discharge Disposition Comments: Pt's discharge disposition is dependent upon progress made and family ability to provide necessary assistance Anticipated Discharge Needs: Family Training, Physical Assist at Home, Supervision at Home, Equipment Recommended Discharge Equipment: To Be Determined GOALS Patient will demonstrate progress with self-care, cognitive and/or coping needs identified to allow safe discharge to home with available support and/or physical assistance. Grooming with: Set Up Upper Body Bathing with: Set Up Upper Body Dressing with: Set Up Lower Body Bathing with: Minimal Assistance Lower Body Dressing with: Moderate Assistance Toilet Hygiene with: Moderate Assistance Chair Transfer with: Contact Guard Assistance Toilet Transfer with: Contact Guard Assistance Shower Transfer with: Minimal Assistance Tolerate (minutes of functional activity): 45 Functional Activity with: Contact Guard Assistance Progress Toward Goals: Progressing as expected Rehab Potential: Good ASSESSMENT Response to Therapy Interventions: Good Participation in Activities, Improved Tolerance for Activity, Requires Additional Time to Complete Activities, Notable Progression with Functional Activities/Skills Pt participating in ADLs this date; improved consistency for amb. to/from bathroom; improved ability to complete LB ADLS and bed mobility Plan for Next Visit: Bathing Training, Bed Mobility, Chair/Commode Transfer Training, Dressing Training, Energy Conservation, Exercise Instruction/Handout, Grooming Training, Sit to Stand Transfers, Standing Balance, Standing Tolerance, Toileting Instruction PRECAUTIONS Weight Bearing Restrictions ORIF L hip Left Lower Extremity Weight Bearing Status: WBAT SUBJECTIVE pt reports d/c is 02/15 FUNCTIONAL STATUS Activities of Daily Living Assist Level Additional Information Feeding Set Up Grooming Set Up, Additional Information Bathing Upper Body Set Up, Additional Information Bathing Lower Body Minimal Assistance, Additional Information Dressing Upper Body Modified Independent Dressing Lower Body Stand By Assistance use of AE for francisco/doffing briefs and pants Toileting Stand By Assistance using commode frame over toilet in bathroom; SBA for standing aspects of hygiene to oliver/posterior areas and for clothing mgt. Pt with good thoroughness to oliver area hygiene after urination; was able to reach to posterior but may need minimal assistance for thorough hygiene following a BM (family has bought a bidet per patient) Instrumental Activities of Daily Living Assist Level Additional Information Meal/Beverage Prep Total Assistance Cleaning Total Assistance Laundry Total Assistance Medication Management with Strategies Total Assistance Mobility Assist Level Additional Information Bed Mobility Rolling: Minimal Assistance Supine To Sit: Stand By Assistance, Additional Information flat bed, use of rail; extended time effort needed Sit To Supine: Stand By Assistance, Contact Guard Assistance Sit to Stand Stand By Assistance, Additional Information from bed and chair and BSC Stand to Sit Stand By Assistance, Additional Information cues for hand placement Bed to Chair Contact Guard Assistance Bed To Chair Transfer Type: Stepping Bed To Chair Transfer Equipment: Wheeled Walker, Gait Belt Toilet/Commode Contact Guard Assistance, Additional Information Shower Functional Mobility Stand By Assistance Functional Mobility Device: Wheeled Walker pt amb. to/from bathroom CURRENT HOSPITAL COURSE Admt to [facility] on 01/11 due to mechanical fall at home resulting in L intertrochanteric hip fracture. s/p ORIF L hip. Relevant Past Medical History: Arthitis, CA, HTN, lymphedema, dementia HOME LIVING Patient Lives With: Family (grandson and his and 1year old child, p-atient's dtr lives nearby) Assistance Available: Part-Time (need to verify with family. Patient poor historian.) Entry To Home: Stairs, With Rail Number Of Stairs Into Home: 4 Number Of Stairs To Bed/Bath: 0 Tub/Shower Type: tub shower with chair Laundry: family completes Equipment Owned: Walker- Wheeled, Lift Chair, Grab Bars- Toilet, Grab Bars- Shower, Shower Chair, Hand Held Shower, Commode- Raised, Emergency Response System PRIOR FUNCTIONAL LEVEL Required Assistance, History of Falls Assistance Required With: Cleaning, Laundry, Meals, Medication Management, Stairs, Safety, Self Care, Shopping, Transportation, Finances Pt (more content not included)... [facility] THERAPY NT HNO ID: [id number] Author: JAYE MARK OTR/L Service: Occupational Therapy Author Type: Occupational Therapist Type: Therapy (PT/OT/Speech/Resp) Filed: 02/12/2024 08:26 Note Text: Summary: OT discharge instruction OT Discharge Instructions The OT team at [facility] has this list of discharge instructions specific to your home going needs. Your anticipated discharge date is 02/12/24. Please share these discharge instructions with family as well as any care providers coming to your home to assist with the continuity of your care. Weight Bearing precautions: Weight bearing as tolerated to L leg Precautions: No Twisting on L leg; 27/04 assist upon discharge Recommended equipment for home: Continue to use current equipment already in place in home. Additional instructions: 24 hour assistance is recommended, Complete lower body bathing and dressing using adaptive equipment, Have someone stand next to you when standing during toileting, dressing and grooming tasks, When getting dressed, put your weaker side in first, then the stronger side, Have assist with meals, housework and laundry, and Continue to complete upper body exercises for strengthening Thank you for entrusting your care to us. If you have questions regarding OT please contact the OT team at [phone]. Isabella Sanchez OT Jaye Mark OT Bi Garcia OT Monica Johnson OT Rosie Nance PURI [facility] Basic metabolic 2000 panelon 02-11-2024 Anion gap [Moles/Vol] 10 mmol/L Normal 9-18 [facility] Comment on above: Order Comment: Speci men Type: BLOOD SPECIMEN Ordering Facility: [facility] Address: [address] [place] [address] Performed By: #### 1 9123-9, 36159-5 #### [facility] CLIA [id number] [address] [place] [address] [place] Calcium [Mass/Vol] 8.7 mg/dL Normal 8.5-10.2 [facility] Comment on above: Order Comment: Speci men Type: BLOOD SPECIMEN Ordering Facility: [facility] Address: [address] [place] [address] Performed By: #### 1 9123-9, 56543-6 #### [facility] CLIA [id number] [address] [place] [address] [place] Chloride [Moles/Vol] 106 mmol/L High 97-105 [facility] Comment on above: Order Comment: Speci men Type: BLOOD SPECIMEN Ordering Facility: [facility] Address: [address] [place] [address] Performed By: #### 1 9123-9, 99141-2 #### [facility] CLIA [id number] [address] [place] [address] [place] CO2 [Moles/Vol] 25 mmol/L Normal 22-30 [facility] Comment on above: Order Comment: Hilary ocampo Type: BLOOD SPECIMEN Ordering Facility: [facility] Address: [address] [place] [address] Performed By: #### 1 9123-9, 61338-2 #### [facility] CLIA [id number] [address] [place] [address] [place] Creatinine [Mass/Vol] 1.31 mg/dL High 0.58-0.96 [facility] Comment on above: Order Comment: Hilary men Type: BLOOD SPECIMEN Ordering Facility: [facility] Address: [address] [place] [address] Performed By: #### 1 9123-9, 08405-6 #### [facility] CLIA [id number] [address] [place] [address] [place] Creatinine and Glomerular filtration rate.predicted panel (S/P/Bld) 41 mL/min/1.73m??? Low >=60 [facility] Comment on above: Order Comment: Hilary ocampo Type: BLOOD SPECIMEN Ordering Facility: [facility] Address: [address] [place] [address] Result Comment: Patience mated Glomerular Filtration Rate (eGFR) is calculated using the 2020 CKD-EPI creatinine equation. This equation utilizes serum creatinine, sex, and age as parameters. The creatinine assay has traceable calibration to isotope dilution-mass spectrometry. Refer to KDIGO guidelines for clinical interpretation. In patients with unstable renal function, e.g. those with acute kidney injury, the eGFR may not accurately reflect actual GFR. Performed By: #### 1 9123-9, 17135-2 #### [facility] CLIA [id number] [address] [place] [address] [place] Glucose [Mass/Vol] 98 mg/dL Normal 74-99 [facility] Comment on above: Order Comment: Hilary terrence Type: BLOOD SPECIMEN Ordering Facility: [facility] Address: [address] [place] [address] Result Comment: The [place] Diabetes Association (ADA) provides guidance for cutoff values for fasting glucose and random glucose. The ADA defines fasting as no caloric intake for at least 8 hours. Fasting plasma glucose results between 100 to 125 mg/dL indicate increased risk for diabetes (prediabetes). Fasting plasma glucose results greater than or equal to 126 mg/dL meet the criteria for diagnosis of diabetes. In the absence of unequivocal hyperglycemia, results should be confirmed by repeat testing. In a patient with classic symptoms of hyperglycemia or hyperglycemic crisis, random plasma glucose results greater than or equal to 200 mg/dL meet the criteria for diagnosis of diabetes. Reference: Standards of Medical Care in Diabetes 2016, [place] Diabetes Association. Diabetes Care. 2016.39(Suppl 1). Performed By: #### 1 9123-9, 72493-5 #### [facility] CLIA [id number] [address] [place] [address] [place] Potassium [Moles/Vol] 4.6 mmol/L Normal 3.7-5.1 [facility] Comment on above: Order Comment: Hilary ocampo Type: BLOOD SPECIMEN Ordering Facility: [facility] Address: [address] [place] [address] Performed By: #### 1 91239, 97022-6 #### [facility] CLIA [id number] [address] [place] [address] [place] Sodium [Moles/Vol] 141 mmol/L Normal 136-144 [facility] Comment on above: Order Comment: Hilary ocampo Type: BLOOD SPECIMEN Ordering Facility: [facility] Address: [address] [place] [address] Performed By: #### 1 91239, 56116-2 #### [facility] CLIA [id number] [address] [place] [address] [place] Urea nitrogen [Mass/Vol] 39 mg/dL High 7-21 [facility] Comment on above: Order Comment: Hilary ocampo Type: BLOOD SPECIMEN Ordering Facility: [facility] Address: [address] [place] [address] Performed By: #### 1 9123-9, 38847-9 #### [facility] CLIA [id number] [address] [place] [address] [place] SOCIAL WORKon 02-11-2024 SOCIAL WORK HNO ID: [id number] Author: KRYSTYNA FOX LSW Service: Social Work Author Type: Musical String Maker Type: Social Work Filed: 02/11/2024 16:37 Note Text: Summary: Family Call SOCIAL WORK PROGRESS NOTE Name: Jackelyn Bradshaw Phoned [email or web address] Mota to inform her we have not yet heard from insurance and nurse will check fax machine before she leaves at 7:00. Confirmed that the 3 days will keep extending as we don't hear from insurance. Signature: MICHELA Chanel Date: February 11, 2024 Time: 4:36 PM [facility] THERAPY NTon 02-11-2024 THERAPY NT HNO ID: [id number] Author: JAYE MARK OTR/L Service: Occupational Therapy Author Type: Digital Associate Type: Therapy (PT/OT/Speech/Resp) Filed: 02/12/2024 07:40 Note Text: Attestation signed by Jaye Mark OTR/L at 02/12/2024 7:40 AM I reviewed and agree with the documentation corresponding to this therapy visit. SIGNATURE: Jaye Mark, OTR/L DATE: February 12, 2024 TIME: 7:40 AM Occupational Therapy Care Home Facility Treatment Summary SERVICE DATE: 02/11/2024 SERVICE TIME: 1515 to 1601 ROOM: [place] [address] OT 6 Clicks Score: 21 DISCHARGE RECOMMENDATIONS Home OT (vs discharge to SENIOR CARE/ECF) Recommended Discharge Disposition Comments: Pt's discharge disposition is dependent upon progress made and family ability to provide necessary assistance Anticipated Discharge Needs: Family Training, Physical Assist at Home, Supervision at Home, Equipment Recommended Discharge Equipment: To Be Determined GOALS Patient will demonstrate progress with self-care, cognitive and/or coping needs identified to allow safe discharge to home with available support and/or physical assistance. Grooming with: Set Up Upper Body Bathing with: Set Up Upper Body Dressing with: Set Up Lower Body Bathing with: Minimal Assistance Lower Body Dressing with: Moderate Assistance Toilet Hygiene with: Moderate Assistance Chair Transfer with: Contact Guard Assistance Toilet Transfer with: Contact Guard Assistance Shower Transfer with: Minimal Assistance Tolerate (minutes of functional activity): 45 Functional Activity with: Contact Guard Assistance Progress Toward Goals: Progressing as expected Rehab Potential: Good ASSESSMENT Response to Therapy Interventions: Good Participation in Activities, Improved Tolerance for Activity, Requires Additional Time to Complete Activities, Notable Progression with Functional Activities/Skills Pt improving in bed mobility but reporting she would rather have assist for supine to sit, sit to supine transfers vs completing at SBA. Pt educated on bed mobility in the home and increaing safe techniques with pt acknowledging education. Pt would benefit from continued bed mobility training in future sessions in order to decrease effort and increase safety. Plan for Next Visit: Bathing Training, Bed Mobility, Chair/Commode Transfer Training, Dressing Training, Energy Conservation, Exercise Instruction/Handout, Grooming Training, Sit to Stand Transfers, Standing Balance, Standing Tolerance, Toileting Instruction PRECAUTIONS Weight Bearing Restrictions ORIF L hip Left Lower Extremity Weight Bearing Status: WBAT SUBJECTIVE Pt reporting feeling ok today. requiring some encouragement to complete bed mobility this day. FUNCTIONAL STATUS Activities of Daily Living Assist Level Additional Information Feeding Set Up Grooming Set Up, Additional Information Bathing Upper Body Set Up, Additional Information Bathing Lower Body Minimal Assistance, Additional Information Dressing Upper Body Modified Independent Dressing Lower Body Stand By Assistance donning socks pants with AE. Much time and effort required. Toileting Contact Guard Assistance, Additional Information using commode frame over toilet in bathroom; CGA for standing aspects of hygiene to oliver/posterior areas and for clothing mgt. Pt with good thoroughness to oliver area hygiene after urination; was able to reach to posterior but may need minimal assistance for thorough hygiene following a BM Instrumental Activities of Daily Living Assist Level Additional Information Meal/Beverage Prep Total Assistance Cleaning Total Assistance Laundry Total Assistance Medication Management with Strategies Total Assistance Mobility Assist Level Additional Information Bed Mobility Rolling: Minimal Assistance Supine To Sit: Stand By Assistance, Additional Information flat bed, use of rail; extended time effort needed Sit To Supine: Stand By Assistance, Contact Guard Assistance bed flat, use of R rail as set up at home, CGA -SBA for BLEs into bed. Much time/effort alloted. Sit to Stand Stand By Assistance, Additional Information from bed and chair and BSC Stand to Sit Stand By Assistance, Additional Information cues for hand placement Bed to Chair Contact Guard Assistance Bed To Chair Transfer Type: Stepping Bed To Chair Transfer Equipment: Wheeled Walker, Gait Belt Toilet/Commode Contact Guard Assistance, Additional Information pt ambulated to bathroom from bed today and used commode frame over toilet with CGA for transfers Shower Functional Mobility Contact Guard Assistance Functional Mobility Device: Wheeled Walker Pt amb from EOB to bathroom to chair CURRENT HOSPITAL COURSE Admt to Saroj Dyson (more content not included)... Normal [facility] THERAPY NT HNO ID: [id number] Author: ELLE HOOVER, PT Service: Physical Therapy Author Type: Digital Retoucher Type: Therapy (PT/OT/Speech/Resp) Filed: 02/11/2024 12:02 Note Text: Attestation signed by Elle Hoover, PT at 02/11/2024 12:02 PM I reviewed and agree with the documentation corresponding to this therapy visit. SIGNATURE: Elle Hoover, PT DATE: February 11, 2024 TIME: 12:02 PM Physical Therapy Care Home Facility Treatment Summary SERVICE DATE: 02/11/2024 SERVICE TIME: 927 to 1014 ROOM: [place] [address] PT 6 Clicks Score: 18 DISCHARGE RECOMMENDATIONS Home PT Recommended Discharge Disposition Comments: Anticipate need for 24 hour care upon dc due to cognitive limitations, and expected limitations post hip fx. Anticipated Discharge Needs: Family Training, Physical Assist at Home, Supervision at Home, Equipment Recommended Discharge Equipment: To Be Determined GOALS Patient will demonstrate progress with functional mobility to allow safe discharge to home with available support and/or physical assistance. Able to Perform HEP with: Supervision Rolling with: Modified Independent Transfer Supine to/from Sit with: Modified Independent Transfer Sit to/from Stand with: Modified Independent Ambulate with: Stand By Assistance Distance: 50 Device: Wheeled Walker Ambulate Up and Down Steps with: Minimal Assistance Number of Steps: 4 Device: Rail, Cane Rehab Potential: Fair Progress Toward Goals: Progressing as expected ASSESSMENT Response to Therapy Interventions: Good Participation in Activities, Improved Tolerance for Activity Patient feeling better today and is able to walk farther in the hallways a better pace than before. Plan for Next Visit: Exercise Instruction/Handout, Gait Training PRECAUTIONS Weight Bearing Restrictions ORIF L hip Left Lower Extremity Weight Bearing Status: WBAT SUBJECTIVE I feel better today FUNCTIONAL STATUS Bed Mobility Rolling: Stand By Assistance (with use of bed rails) Supine To Sit: Minimal Assistance (assist LLE) Sit to Supine: Moderate Assistance (assist BLE) Scooting: Stand By Assistance Transfers Sit To Stand: Contact Guard Assistance Stand To Sit: Contact Guard Assistance Bed to Chair Contact Guard Assistance Bed To Chair Transfer Type: Stepping Bed To Chair Transfer Equipment: Wheeled Walker, Gait Belt Gait Contact Guard Assistance Gait Device: Wheeled Walker General Deviations/Observation s: Antalgic gait, Non-functional gait speed, Flexed trunk posture Gait Distance (feet): 25 x 2 Gait Deviations Left Lower Extremity: Step length decreased, Stance time decreased Stairs CURRENT HOSPITAL COURSE Admt to [facility] on 01/11 due to mechanical fall at home resulting in L intertrochanteric hip fracture. s/p ORIF L hip. Relevant Past Medical History: Arthitis, CA, HTN, lymphedema, dementia HOME LIVING Patient Lives With: Family (grandson and his and 1year old child, p-atient's dtr lives nearby) Assistance Available: Part-Time (need to verify with family. Patient poor historian.) Entry To Home: Stairs, With Rail Number Of Stairs Into Home: 4 Number Of Stairs To Bed/Bath: 0 Tub/Shower Type: tub shower with chair Laundry: family completes Equipment Owned: Walker- Wheeled, Lift Chair, Grab Bars- Toilet, Grab Bars- Shower, Shower Chair, Hand Held Shower, Commode- Raised, Emergency Response System PRIOR FUNCTIONAL LEVEL Required Assistance, History of Falls Assistance Required With: Cleaning, Laundry, Meals, Medication Management, Stairs, Safety, Self Care, Shopping, Transportation, Finances Pt questionable historian, pt reports IND with ADLS, family completes IALDs. ambulates with wheeled walker, history of falls (unable to recall an approximate amount however), sleeps in adjustable bed. Uses HOB elevated to get out of bed, uses lift chair during the day. States shw walks in the hallway every hour. THERAPY DIAGNOSIS Reduced mobility-other, Muscle Weakness (generalized) TREATMENT INTERVENTIONS Therapeutic Exercise (39875), Gait Training (62403), Therapeutic Activity (05458) Timed Code Treatment (minutes): 47 Skilled Treatment Time (minutes): 47 EXERCISE Exercises Exercise Performed: Ankle Pumps, Heel Slides, SAQ, Hip Abduction, SLR Ankle Pumps (number of reps): 20 Heel Slides (number of reps): 10 SAQ (number of reps): 10 SLR (number of reps): 10 Hip Abduction (number of reps): 10 TRAINING AND EDUCATION PROVIDED Discharge Planning, Exercise Program, Expected Functional Level, Gait Pattern, Reduction of Deviations, Bed Mobility, Standing Balance THERAPEUTIC SKILLS USED Activity Dosing, Cuing Verbal, Cuing Tactile, Cuing Visual, Physical Assist PLAN PT Frequency: 6 Times Per Week (more content not included)... Normal [facility] NURSING PROGon 02-10-2024 NURSING PROG HNO ID: [id number] Author: FRANCA HARRISON RN Service: Nursing Author Type: Registered Nurse Type: Nursing Progress Note Filed: 02/10/2024 12:36 Note Text: Patient sitting up in recliner chair at bedside. All treatments and procedures were explained. Pt verbalized understanding. No questions or concerns were voiced at this time. [facility] NUTRITIONon 02-10-2024 NUTRITION HNO ID: [id number] Author: MENDOZA COREAS RD Service: Nutrition Therapy Author Type: Registered Dietitian Type: Nutrition Filed: 02/10/2024 15:05 Note Text: NUTRITION THERAPY PROGRESS NOTE SERVICE DATE: 02/10/2024 SERVICE TIME: 15:00 PM Nutrition Assessment: Recommended Malnutrition Diagnosis: No Malnutrition Identified (02/03/24 1118 : Mendoza Coreas RD) Estimated kilocalorie needs: 3625-8464 Calorie Calculation Method: Ellsworth-St. Jeor (with activity factor) (adjusted body wt 60.1kg) Estimated protein needs (grams): 60-72 Grams protein determined by: 1.0 - 1.2 g/kg Care Plan: Continue current diet Vitamins and Minerals: Vitamin C Monitor and Evaluation: Meet greater than 75% of estimated needs, Monitor fluid/electrolyte balance, Monitor labs, I/Os, vital signs, weight Discharge Recommendations: Diet Diet: regular Interval History: 24 DAY los, meds AND labs reviewed. 100% meals, bedscale 79.9kg. Appears stable w/o nutritional concerns pressure area remains Anthropometrics: Height: 160 cm (5' 3) Weight: 83.5 kg (184 lb 1.4 oz) Dosing Weight: 52.2 kg (115 lb) Body mass index is 32.61 kg/m?. Intake History: Current Nutrition Intake: Greater than 75% estimated energy needs Current Intake Over time: Greater than or equal to 7 days Diet Orders (From admission, onward) Start Ordered 01/17/24 1430 DIET REGULAR START NOW 01/17/24 1428 MNT Billing: $ Reassessment: 1-15 minutes SIGNATURE: Mendoza Coreas RD PATIENT NAME: Jackelyn Bradshaw DATE: February 10, 2024 TIME: 3:01 PM Normal [facility] SOCIAL WORKon 02-10-2024 SOCIAL WORK HNO ID: [id number] Author: KRYSTYNA FOX LSW Service: Social Work Author Type: Musical String Maker Type: Social Work Filed: 02/11/2024 09:30 Note Text: Summary: Team Rounds MULTIDISCIPLINARY ROUNDS SERVICE DATE: 02/10/2024 ADMISSION DATE: 01/17/2024 SERVICE TIME: 12:30 PM ANTICIPATED D/C DATE: 02/13 Problem List: ACTIVE PROBLEM LIST Htn (Hypertension) Impaired Ambulation Pelvic Joint Pain, Left Cancer of Breast, Intraductal, Left Generalized Weakness Fall Tremors of Nervous System Declining Functional Status Obesity, Class I, Bmi 30-34.9 Aftercare Status Post Hip Surgery Dementia (Hcc) Anemia Deep Tissue Injury Attendees Present at Rounds: CM, DRYING ROOM OPERATOR, NM, OT, PT, SW Needs Discussed on Rounds: Discharge Needs Equipment: Wheelchair and Ramp have been obtained Mobility Plan of Care Anticipated Discharge Disposition: Home with Home Health Last Vitals: BP 124/48 Pulse 66 Temp (Src) 98.2 (Oral) Resp 16 Ht 5' 3 (1.60m) Wt 184 lb 1.4 oz (83.5kg) SpO2 95% BMI 32.62 kg/(m2). O2 Therapy: Room Air SW: Plan dc home with [employer]. Dtr/LG Tez secured one person to help at home. To get ramp from [employer] with campos money. Able to borrow portable in meantime. PT: Ramp has been acquired. Patient also has a wheelchair. OT: Improved with self care tasks. Nursing: DOCUMENTED BY: MICHELA Chanel PATIENT NAME: Jackelyn Bradshaw DATE: February 10, 2024 TIME: 4:52 PM CSN: [id number] Normal [facility] SOCIAL WORK HNO ID: [id number] Author: KRYSTYNA FOX LSW Service: Social Work Author Type: Musical String Maker Type: Social Work Filed: 02/10/2024 14:11 Note Text: Summary: Family Call SOCIAL WORK PROGRESS NOTE Name: Jackelyn Bradshaw Daughter called to see if we had head back re: patient's insurance update today. Told her we have not yet heard. Told her it may be late today or even tomorrow. To call her when we hear. Signature: MICHELA Chanel Date: February 10, 2024 Time: 2:09 PM [facility] THERAPY NTon 02-10-2024 THERAPY NT HNO ID: [id number] Author: ISABELLA SANCHEZ, OTR/L Service: Occupational Therapy Author Type: Occupational Therapist Type: Therapy (PT/OT/Speech/Resp) Filed: 02/10/2024 14:37 Note Text: Occupational Therapy Care Home Facility Treatment Summary SERVICE DATE: 02/10/2024 SERVICE TIME: 1345 to 1420 ROOM: [place] [address] OT 6 Clicks Score: 21 DISCHARGE RECOMMENDATIONS Home OT (vs discharge to SENIOR CARE/ECF) Recommended Discharge Disposition Comments: Pt's discharge disposition is dependent upon progress made and family ability to provide necessary assistance Anticipated Discharge Needs: Family Training, Physical Assist at Home, Supervision at Home, Equipment Recommended Discharge Equipment: To Be Determined GOALS Patient will demonstrate progress with self-care, cognitive and/or coping needs identified to allow safe discharge to home with available support and/or physical assistance. Grooming with: Set Up Upper Body Bathing with: Set Up Upper Body Dressing with: Set Up Lower Body Bathing with: Minimal Assistance Lower Body Dressing with: Moderate Assistance Toilet Hygiene with: Moderate Assistance Chair Transfer with: Contact Guard Assistance Toilet Transfer with: Contact Guard Assistance Shower Transfer with: Minimal Assistance Tolerate (minutes of functional activity): 45 Functional Activity with: Contact Guard Assistance Progress Toward Goals: Progressing as expected Rehab Potential: Good ASSESSMENT Response to Therapy Interventions: Good Participation in Activities, Improved Tolerance for Activity, Requires Additional Time to Complete Activities, Notable Progression with Functional Activities/Skills This patient was able to ambulate from bed to bathroom for first time today for toileting and was able to complete toileting skills at a CGA level overall. This is significant progress for pt. She requires moderate assistance for moving sit to supine and SBA supine to sit. Pt has shown good progress over the course of her inpatient rehab and is planning for discharge within the week. Family may benefit from additional training prior to discharge due to improvement in pt's status; will discuss with social media developer to contact family. Tub transfer training may need to be deferred to home health therapy in order for pt to have additional time to improve further and to allow for increased family participation in training. Plan for Next Visit: Bathing Training, Bed Mobility, Chair/Commode Transfer Training, Dressing Training, Energy Conservation, Exercise Instruction/Handout, Grooming Training, Sit to Stand Transfers, Standing Balance, Standing Tolerance, Toileting Instruction PRECAUTIONS Weight Bearing Restrictions ORIF L hip Left Lower Extremity Weight Bearing Status: WBAT SUBJECTIVE Pt stated that she feels ready to go home this weekend FUNCTIONAL STATUS Activities of Daily Living Assist Level Additional Information Feeding Set Up Grooming Set Up, Additional Information Bathing Upper Body Set Up, Additional Information Bathing Lower Body Minimal Assistance, Additional Information Dressing Upper Body Modified Independent Dressing Lower Body Stand By Assistance Toileting Contact Guard Assistance, Additional Information using commode frame over toilet in bathroom; CGA for standing aspects of hygiene to oliver/posterior areas and for clothing mgt. Pt with good thoroughness to oliver area hygiene after urination; was able to reach to posterior but may need minimal assistance for thorough hygiene following a BM Instrumental Activities of Daily Living Assist Level Additional Information Meal/Beverage Prep Total Assistance Cleaning Total Assistance Laundry Total Assistance Medication Management with Strategies Total Assistance Mobility Assist Level Additional Information Bed Mobility Rolling: Minimal Assistance Supine To Sit: Stand By Assistance, Additional Information flat bed, use of rail; extended time effort needed Sit To Supine: Moderate Assistance, Additional Information bed flat, no rail; assist for BLEs into bed Sit to Stand Stand By Assistance, Additional Information from bed and chair Stand to Sit Stand By Assistance, Additional Information cues for hand placement Bed to Chair Contact Guard Assistance Bed To Chair Transfer Type: Stepping Bed To Chair Transfer Equipment: Wheeled Walker, Gait Belt Pt needed CGA for transfers in room Toilet/Commode Contact Guard Assistance, Additional Information pt ambulated to bathroom from bed today and used commode frame over toilet with CGA for transfers Shower Functional Mobility Contact Guard Assistance Functional Mobility Device: Wheeled Walker Pt ambulated from bed to bathroom for toileting, then back to chair, and then back to bed CURRENT HOSPITAL COURSE Admt to [facility] on 01/11 due to mechanical fall at home resulting in L intertrochanteric hip fracture. s/p ORIF L hip. Relevant (more content not included)... Normal [facility] THERAPY NT HNO ID: [id number] Author: ELLE HOOVER PT Service: Physical Therapy Author Type: Digital Retoucher Type: Therapy (PT/OT/Speech/Resp) Filed: 02/10/2024 12:15 Note Text: Attestation signed by Elle Hoover PT at 02/10/2024 12:15 PM I reviewed and agree with the documentation corresponding to this therapy visit. SIGNATURE: Elle Hoover, PT DATE: February 10, 2024 TIME: 12:15 PM Physical Therapy Care Home Facility Treatment Summary SERVICE DATE: 02/10/2024 SERVICE TIME: 844 to 921 ROOM: [place] [address] PT 6 Clicks Score: 18 DISCHARGE RECOMMENDATIONS Home PT Recommended Discharge Disposition Comments: Anticipate need for 24 hour care upon dc due to cognitive limitations, and expected limitations post hip fx. Anticipated Discharge Needs: Family Training, Physical Assist at Home, Supervision at Home, Equipment Recommended Discharge Equipment: To Be Determined GOALS Patient will demonstrate progress with functional mobility to allow safe discharge to home with available support and/or physical assistance. Able to Perform HEP with: Supervision Rolling with: Modified Independent Transfer Supine to/from Sit with: Modified Independent Transfer Sit to/from Stand with: Modified Independent Ambulate with: Stand By Assistance Distance: 50 Device: Wheeled Walker Ambulate Up and Down Steps with: Minimal Assistance Number of Steps: 4 Device: Rail, Cane Rehab Potential: Fair Progress Toward Goals: Progressing as expected ASSESSMENT Response to Therapy Interventions: Good Participation in Activities, Pain Patient completing seated exercises with good tolerance with ocassional assist needed for her left lower extremity. Patient also continues to ambulate in the hallways however is limited this session due to pain. Plan for Next Visit: Exercise Instruction/Handout, Gait Training PRECAUTIONS Weight Bearing Restrictions ORIF L hip Left Lower Extremity Weight Bearing Status: WBAT SUBJECTIVE I slept well FUNCTIONAL STATUS Bed Mobility Rolling: Stand By Assistance (with use of bed rails) Supine To Sit: Stand By Assistance Sit to Supine: Moderate Assistance (assist BLE) Scooting: Stand By Assistance Transfers Sit To Stand: Contact Guard Assistance Stand To Sit: Contact Guard Assistance Bed to Chair Contact Guard Assistance Bed To Chair Transfer Type: Stepping Bed To Chair Transfer Equipment: Wheeled Walker, Gait Belt Gait Contact Guard Assistance Gait Device: Wheeled Walker General Deviations/Observation s: Antalgic gait, Non-functional gait speed, Flexed trunk posture Gait Distance (feet): 10 x 2 Gait Deviations Left Lower Extremity: Step length decreased, Stance time decreased Stairs CURRENT HOSPITAL COURSE Admt to [facility] on 01/11 due to mechanical fall at home resulting in L intertrochanteric hip fracture. s/p ORIF L hip. Relevant Past Medical History: Arthitis, CA, HTN, lymphedema, dementia HOME LIVING Patient Lives With: Family (grandson and his and 1year old child, p-atient's dtr lives nearby) Assistance Available: Part-Time (need to verify with family. Patient poor historian.) Entry To Home: Stairs, With Rail Number Of Stairs Into Home: 4 Number Of Stairs To Bed/Bath: 0 Tub/Shower Type: tub shower with chair Laundry: family completes Equipment Owned: Walker- Wheeled, Lift Chair, Grab Bars- Toilet, Grab Bars- Shower, Shower Chair, Hand Held Shower, Commode- Raised, Emergency Response System PRIOR FUNCTIONAL LEVEL Required Assistance, History of Falls Assistance Required With: Cleaning, Laundry, Meals, Medication Management, Stairs, Safety, Self Care, Shopping, Transportation, Finances Pt questionable historian, pt reports IND with ADLS, family completes IALDs. ambulates with wheeled walker, history of falls (unable to recall an approximate amount however), sleeps in adjustable bed. Uses HOB elevated to get out of bed, uses lift chair during the day. States shw walks in the hallway every hour. THERAPY DIAGNOSIS Reduced mobility-other, Muscle Weakness (generalized) TREATMENT INTERVENTIONS Therapeutic Exercise (12103), Gait Training (86663), Therapeutic Activity (02003) Timed Code Treatment (minutes): 37 Skilled Treatment Time (minutes): 37 EXERCISE Exercises Exercise Performed: Heel Slides, LAQ, Hip Abduction Heel Slides (number of reps): 10 LAQ (number of reps): 10 Hip Abduction (number of reps): 10 Exercise: hip adduction pillow squeeze x10 TRAINING AND EDUCATION PROVIDED Discharge Planning, Exercise Program, Expected Functional Level, Gait Pattern, Reduction of Deviations, Standing Balance THERAPEUTIC SKILLS USED Activity Dosing, Cuing Verbal, Movement Facilitation PLAN PT Frequency: 6 Times Per Week (3-4 (more content not included)... Normal [facility] THERAPY NTon 02-09-2024 THERAPY NT HNO ID: [id number] Author: LETICIA WALTERS PT Service: Physical Therapy Author Type: Digital Retoucher Type: Therapy (PT/OT/Speech/Resp) Filed: 02/09/2024 14:59 Note Text: Attestation signed by Leticia Walters PT at 02/09/2024 2:59 PM I reviewed and agree with the documentation corresponding to this therapy visit. SIGNATURE: Leticia Walters PT DATE: February 09, 2024 TIME: 2:59 PM Physical Therapy Care Home Facility Treatment Summary SERVICE DATE: 02/09/2024 SERVICE TIME: 1406 to 1440 ROOM: [place] [address] PT 6 Clicks Score: 18 DISCHARGE RECOMMENDATIONS Home PT Recommended Discharge Disposition Comments: Anticipate need for 24 hour care upon dc due to cognitive limitations, and expected limitations post hip fx. Anticipated Discharge Needs: Family Training, Physical Assist at Home, Supervision at Home, Equipment Recommended Discharge Equipment: To Be Determined GOALS Patient will demonstrate progress with functional mobility to allow safe discharge to home with available support and/or physical assistance. Able to Perform HEP with: Supervision Rolling with: Modified Independent Transfer Supine to/from Sit with: Modified Independent Transfer Sit to/from Stand with: Modified Independent Ambulate with: Stand By Assistance Distance: 50 Device: Wheeled Walker Ambulate Up and Down Steps with: Minimal Assistance Number of Steps: 4 Device: Rail, Cane Rehab Potential: Fair Progress Toward Goals: Progressing as expected ASSESSMENT Response to Therapy Interventions: Good Participation in Activities Patient continues to be willing to complete what is asked of her however during theafternoon session she is not able to do as much as the morning due to fatigue. Plan for Next Visit: Exercise Instruction/Handout, Gait Training PRECAUTIONS Weight Bearing Restrictions ORIF L hip Left Lower Extremity Weight Bearing Status: WBAT SUBJECTIVE you only get to work with me a couple more days FUNCTIONAL STATUS Bed Mobility Rolling: Stand By Assistance (with use of bed rails) Supine To Sit: Stand By Assistance Sit to Supine: Moderate Assistance (assist BLE) Scooting: Stand By Assistance Transfers Sit To Stand: Contact Guard Assistance Stand To Sit: Contact Guard Assistance Bed to Chair Contact Guard Assistance Bed To Chair Transfer Type: Stepping Bed To Chair Transfer Equipment: Wheeled Walker, Gait Belt Gait Stand By Assistance Gait Device: Wheeled Walker General Deviations/Observation s: Antalgic gait, Non-functional gait speed, Flexed trunk posture Gait Distance (feet): 15 Gait Deviations Left Lower Extremity: Step length decreased, Stance time decreased Stairs CURRENT HOSPITAL COURSE Admt to [facility] on 01/11 due to mechanical fall at home resulting in L intertrochanteric hip fracture. s/p ORIF L hip. Relevant Past Medical History: Arthitis, CA, HTN, lymphedema, dementia HOME LIVING Patient Lives With: Family (grandson and his and 1year old child, p-atraghu's dtr lives nearby) Assistance Available: Part-Time (need to verify with family. Patient poor historian.) Entry To Home: Stairs, With Rail Number Of Stairs Into Home: 4 Number Of Stairs To Bed/Bath: 0 Tub/Shower Type: tub shower with chair Laundry: family completes Equipment Owned: Walker- Wheeled, Lift Chair, Grab Bars- Toilet, Grab Bars- Shower, Shower Chair, Hand Held Shower, Commode- Raised, Emergency Response System PRIOR FUNCTIONAL LEVEL Required Assistance, History of Falls Assistance Required With: Cleaning, Laundry, Meals, Medication Management, Stairs, Safety, Self Care, Shopping, Transportation, Finances Pt questionable historian, pt reports IND with ADLS, family completes IALDs. ambulates with wheeled walker, history of falls (unable to recall an approximate amount however), sleeps in adjustable bed. Uses HOB elevated to get out of bed, uses lift chair during the day. States shw walks in the hallway every hour. THERAPY DIAGNOSIS Reduced mobility-other, Muscle Weakness (generalized) TREATMENT INTERVENTIONS Therapeutic Exercise (48771), Gait Training (63412) Timed Code Treatment (minutes): 34 Skilled Treatment Time (minutes): 34 EXERCISE Exercises Exercise Performed: Heel Slides, SAQ, LAQ, Hip Abduction Heel Slides (number of reps): 10 SAQ (number of reps): 10 LAQ (number of reps): 10 Hip Abduction (number of reps): 10 TRAINING AND EDUCATION PROVIDED Benefits of In-Hospital Mobility, Discharge Planning, Exercise Program, Falls Prevention, Gait Pattern, Reduction of Deviations, Standing Balance THERAPEUTIC SKILLS USED Activity Dosing, Cuing Verbal, Movement Facilitation PLAN PT Frequency: 6 Times Per Week (3-4 weeks) Treatment Interventions: Strengthening, (more content not included)... Normal [facility] THERAPY NT HNO ID: [id number] Author: JAYE MARK OTR/L Service: Occupational Therapy Author Type: Digital Associate Type: Therapy (PT/OT/Speech/Resp) Filed: 02/09/2024 14:06 Note Text: Attestation signed by Jaye Mark OTR/L at 02/09/2024 2:06 PM I reviewed and agree with the documentation corresponding to this therapy visit. SIGNATURE: KATARZYNA Vilchis DATE: February 09, 2024 TIME: 2:06 PM Occupational Therapy Care Home Facility Treatment Summary SERVICE DATE: 02/09/2024 SERVICE TIME: 1125 to 1155 ROOM: [place] [address] OT 6 Clicks Score: 21 DISCHARGE RECOMMENDATIONS Home OT (vs discharge to [facility]) Recommended Discharge Disposition Comments: Pt's discharge disposition is dependent upon progress made and family ability to provide necessary assistance Anticipated Discharge Needs: Family Training, Physical Assist at Home, Supervision at Home, Equipment Recommended Discharge Equipment: To Be Determined GOALS Patient will demonstrate progress with self-care, cognitive and/or coping needs identified to allow safe discharge to home with available support and/or physical assistance. Grooming with: Set Up Upper Body Bathing with: Set Up Upper Body Dressing with: Set Up Lower Body Bathing with: Minimal Assistance Lower Body Dressing with: Moderate Assistance Toilet Hygiene with: Moderate Assistance Chair Transfer with: Contact Guard Assistance Toilet Transfer with: Contact Guard Assistance Shower Transfer with: Minimal Assistance Tolerate (minutes of functional activity): 45 Functional Activity with: Contact Guard Assistance Progress Toward Goals: Progressing as expected Rehab Potential: Good ASSESSMENT Response to Therapy Interventions: Good Participation in Activities, Improved Tolerance for Activity, Requires Additional Time to Complete Activities Pt completing LB dressing with increase in IND. Plan for Next Visit: Bathing Training, Bed Mobility, Chair/Commode Transfer Training, Dressing Training, Standing Balance, Standing Tolerance, Toileting Instruction PRECAUTIONS Weight Bearing Restrictions ORIF L hip Left Lower Extremity Weight Bearing Status: WBAT SUBJECTIVE Pt reporting feeling ready to go home soon. I've played enough here. FUNCTIONAL STATUS Activities of Daily Living Assist Level Additional Information Feeding Set Up Grooming Set Up, Additional Information Bathing Upper Body Set Up, Additional Information Bathing Lower Body Minimal Assistance, Additional Information Dressing Upper Body Modified Independent Dressing Lower Body Stand By Assistance donning socks pants with AE. Much time and effort required. Toileting Contact Guard Assistance Instrumental Activities of Daily Living Assist Level Additional Information Meal/Beverage Prep Total Assistance Cleaning Total Assistance Laundry Total Assistance Medication Management with Strategies Total Assistance Mobility Assist Level Additional Information Bed Mobility Rolling: Minimal Assistance Supine To Sit: Minimal Assistance, Additional Information Sit To Supine: Moderate Assistance Sit to Stand Stand By Assistance from chair Stand to Sit Stand By Assistance Bed to Chair Contact Guard Assistance Bed To Chair Transfer Type: Stepping Bed To Chair Transfer Equipment: Wheeled Walker, Gait Belt Toilet/Commode Contact Guard Assistance, Additional Information Shower Functional Mobility Contact Guard Assistance Functional Mobility Device: Wheeled Walker STS from chair CURRENT HOSPITAL COURSE Admt to [facility] on 01/11 due to mechanical fall at home resulting in L intertrochanteric hip fracture. s/p ORIF L hip. Relevant Past Medical History: Arthitis, CA, HTN, lymphedema, dementia HOME LIVING Patient Lives With: Family (grandson and his and 1year old child, p-atraghu's dtr lives nearby) Assistance Available: Part-Time (need to verify with family. Patient poor historian.) Entry To Home: Stairs, With Rail Number Of Stairs Into Home: 4 Number Of Stairs To Bed/Bath: 0 Tub/Shower Type: tub shower with chair Laundry: family completes Equipment Owned: Walker- Wheeled, Lift Chair, Grab Bars- Toilet, Grab Bars- Shower, Shower Chair, Hand Held Shower, Commode- Raised, Emergency Response System PRIOR FUNCTIONAL LEVEL Required Assistance, History of Falls Assistance Required With: Cleaning, Laundry, Meals, Medication Management, Stairs, Safety, Self Care, Shopping, Transportation, Finances Pt questionable historian, pt reports IND with ADLS, family completes IALDs. ambulates with wheeled walker, history of falls (unable to recall an approximate amount however), sleeps in adjustable bed. Uses HOB elevated to get out of bed, uses lift chair during the day. States (more content not included)... Normal [facility] THERAPY NT HNO ID: [id number] Author: MICKIE RUTLEDGE, PT, DPT Service: Physical Therapy Author Type: Physical Therapist Type: Therapy (PT/OT/Speech/Resp) Filed: 02/09/2024 09:34 Note Text: Physical Therapy Care Home Facility Treatment Summary SERVICE DATE: 02/09/2024 SERVICE TIME: 844 to 924 ROOM: [place] [address] PT 6 Clicks Score: 18 DISCHARGE RECOMMENDATIONS Home PT Recommended Discharge Disposition Comments: Anticipate need for 24 hour care upon dc due to cognitive limitations, and expected limitations post hip fx. Anticipated Discharge Needs: Family Training, Physical Assist at Home, Supervision at Home, Equipment Recommended Discharge Equipment: To Be Determined GOALS Patient will demonstrate progress with functional mobility to allow safe discharge to home with available support and/or physical assistance. Able to Perform HEP with: Supervision Rolling with: Modified Independent Transfer Supine to/from Sit with: Modified Independent Transfer Sit to/from Stand with: Modified Independent Ambulate with: Stand By Assistance Distance: 50 Device: Wheeled Walker Ambulate Up and Down Steps with: Minimal Assistance Number of Steps: 4 Device: Rail, Cane Rehab Potential: Fair Progress Toward Goals: Progressing as expected ASSESSMENT Response to Therapy Interventions: Good Participation in Activities, Pain, Requires Additional Time to Complete Activities Patient is pleasant and motivated in therapy, demonstrating improving fluidity of movement and improved ability to accept weight on L LE during standing activity. Patient's granddaughter present during session and reporting no questions regarding discharge and reporting they have all equipment and feel ready to bring her home. Plan for Next Visit: Exercise Instruction/Handout, Gait Training PRECAUTIONS Weight Bearing Restrictions ORIF L hip Left Lower Extremity Weight Bearing Status: WBAT SUBJECTIVE Patient laying in bed upon entering room, agreeable to therapy session. FUNCTIONAL STATUS most recent performance Bed Mobility Rolling: Stand By Assistance (with use of bed rails) Supine To Sit: Stand By Assistance slow completion however no physical assist needed. Sit to Supine: Moderate Assistance (assist BLE) Scooting: Stand By Assistance Transfers Sit To Stand: Contact Guard Assistance Stand To Sit: Contact Guard Assistance Bed to Chair Contact Guard Assistance Bed To Chair Transfer Type: Stepping Bed To Chair Transfer Equipment: Wheeled Walker, Gait Belt Gait Stand By Assistance Gait Device: Wheeled Walker General Deviations/Observation s: Antalgic gait, Non-functional gait speed, Flexed trunk posture Gait Distance (feet): 20', 16' Gait Deviations Left Lower Extremity: Step length decreased, Stance time decreased Stairs CURRENT HOSPITAL COURSE Admt to [facility] on 01/11 due to mechanical fall at home resulting in L intertrochanteric hip fracture. s/p ORIF L hip. Relevant Past Medical History: Arthitis, CA, HTN, lymphedema, dementia HOME LIVING Patient Lives With: Family (grandson and his and 1year old child, p-atient's dtr lives nearby) Assistance Available: Part-Time (need to verify with family. Patient poor historian.) Entry To Home: Stairs, With Rail Number Of Stairs Into Home: 4 Number Of Stairs To Bed/Bath: 0 Tub/Shower Type: tub shower with chair Laundry: family completes Equipment Owned: Walker- Wheeled, Lift Chair, Grab Bars- Toilet, Grab Bars- Shower, Shower Chair, Hand Held Shower, Commode- Raised, Emergency Response System PRIOR FUNCTIONAL LEVEL Required Assistance, History of Falls Assistance Required With: Cleaning, Laundry, Meals, Medication Management, Stairs, Safety, Self Care, Shopping, Transportation, Finances Pt questionable historian, pt reports IND with ADLS, family completes IALDs. ambulates with wheeled walker, history of falls (unable to recall an approximate amount however), sleeps in adjustable bed. Uses HOB elevated to get out of bed, uses lift chair during the day. States shw walks in the hallway every hour. THERAPY DIAGNOSIS Reduced mobility-other, Muscle Weakness (generalized) TREATMENT INTERVENTIONS Gait Training (08942), Therapeutic Exercise (44884) Timed Code Treatment (minutes): 40 Skilled Treatment Time (minutes): 40 EXERCISE Exercises Ankle Pumps (number of reps): 20 LAQ (number of reps): 1x10 B LE Exercise: hip adduction pillow squeeze 1x10 B LE, seated hip flexion marching 1x10 B LE TRAINING AND EDUCATION PROVIDED Bed Mobility, Transfers, Gait Pattern, Reduction of Deviations, Exercise Program THERAPEUTIC SKILLS USED Activity Dosing, Bed in Chair Position, Cuing Verbal, Physical Assist PLAN PT Frequency: 6 Times Per Week (3-4 weeks) Treatment Interventions: Strengthening, Functional Mobility Training Please see PT specific flowsheet for details regarding this therapy session. SIGNATURE: Mickie Jewell (more content not included)... Normal [facility] Basic metabolic 2000 panelon 02-08-2024 Anion gap [Moles/Vol] 9 mmol/L Normal 9-18 [facility] Comment on above: Order Comment: Speci men Type: BLOOD SPECIMEN Ordering Facility: [facility] Address: [address] [place] [address] Performed By: #### 1 9123-9, 82856-2 #### [facility] CLIA [id number] [address] [place], [place] [id number] [place] Calcium [Mass/Vol] 8.9 mg/dL Normal 8.5-10.2 [facility] Comment on above: Order Comment: Speci men Type: BLOOD SPECIMEN Ordering Facility: [facility] Address: [address] [place] [address] Performed By: #### 1 9123-9, 73480-5 #### [facility] CLIA [id number] [address] [place] [address] [place] Chloride [Moles/Vol] 106 mmol/L High 97-105 [facility] Comment on above: Order Comment: Speci men Type: BLOOD SPECIMEN Ordering Facility: [facility] Address: [address] [place] [address] Performed By: #### 1 9123-9, 40927-0 #### [facility] CLIA [id number] [address] [place] [address] [place] CO2 [Moles/Vol] 27 mmol/L Normal 22-30 [facility] Comment on above: Order Comment: Speci men Type: BLOOD SPECIMEN Ordering Facility: [facility] Address: [address] [place] [address] Performed By: #### 1 9123-9, 71477-5 #### [facility] CLIA [id number] [address] [place] [address] [place] Creatinine [Mass/Vol] 1.35 mg/dL High 0.58-0.96 [facility] Comment on above: Order Comment: Speci men Type: BLOOD SPECIMEN Ordering Facility: [facility] Address: [address] [place] [address] Performed By: #### 1 9123-9, 31128-6 #### [facility] CLIA [id number] [address] [place] [address] [facility] Creatinine and Glomerular filtration rate.predicted panel (S/P/Bld) 39 mL/min/1.73m??? Low >=60 [facility] Comment on above: Order Comment: Speci men Type: BLOOD SPECIMEN Ordering Facility: [facility] Address: [address] [place] [address] Result Comment: Patience mated Glomerular Filtration Rate (eGFR) is calculated using the 2020 CKD-EPI creatinine equation. This equation utilizes serum creatinine, sex, and age as parameters. The creatinine assay has traceable calibration to isotope dilution-mass spectrometry. Refer to KDIGO guidelines for clinical interpretation. In patients with unstable renal function, e.g. those with acute kidney injury, the eGFR may not accurately reflect actual GFR. Performed By: #### 1 9123-9, 46507-8 #### [facility] CLIA [id number] [address] [place] [address] [place] Glucose [Mass/Vol] 89 mg/dL Normal 74-99 [facility] Comment on above: Order Comment: Hilary ocampo Type: BLOOD SPECIMEN Ordering Facility: [facility] Address: [address] [place] [address] Result Comment: The [place] Diabetes Association (ADA) provides guidance for cutoff values for fasting glucose and random glucose. The ADA defines fasting as no caloric intake for at least 8 hours. Fasting plasma glucose results between 100 to 125 mg/dL indicate increased risk for diabetes (prediabetes). Fasting plasma glucose results greater than or equal to 126 mg/dL meet the criteria for diagnosis of diabetes. In the absence of unequivocal hyperglycemia, results should be confirmed by repeat testing. In a patient with classic symptoms of hyperglycemia or hyperglycemic crisis, random plasma glucose results greater than or equal to 200 mg/dL meet the criteria for diagnosis of diabetes. Reference: Standards of Medical Care in Diabetes 2016, [place] Diabetes Association. Diabetes Care. 2016.39(Suppl 1). Performed By: #### 1 9123-9, 61572-4 #### [facility] CLIA [id number] [address] [place] [address] [place] Potassium [Moles/Vol] 4.7 mmol/L Normal 3.7-5.1 [facility] Comment on above: Order Comment: Hilary ocampo Type: BLOOD SPECIMEN Ordering Facility: [facility] Address: [address] [place] [address] Performed By: #### 1 9123-9, 93622-6 #### [facility] CLIA [id number] [address] [place] [address] [place] Sodium [Moles/Vol] 142 mmol/L Normal 136-144 [facility] Comment on above: Order Comment: Hilary ocampo Type: BLOOD SPECIMEN Ordering Facility: [facility] Address: [address] [place] [address] Performed By: #### 1 9123-9, 30871-1 #### [facility] CLIA [id number] [address] [place] [address] [place] [facility] Urea nitrogen [Mass/Vol] 40 mg/dL High 7-21 [facility] Comment on above: Order Comment: Speci men Type: BLOOD SPECIMEN Ordering Facility: [facility] Address: [address] [place] [address] Performed By: #### 1 9123-9, 28462-7 #### [facility] CLIA [id number] [address] [place] [address] [facility] [place] CBC panel Auto (Bld)on 02-07 Erythrocyte distribution width (RBC) [Ratio] 14.1 % Normal 11.5-15.0 [facility] Comment on above: Order Comment: Speci men Type: BLOOD SPECIMEN Ordering Facility: [facility] Address: [address] [place] [address] Performed By: #### 1 9123-9, 48812-4 #### [facility] CLIA [id number] [address] [place] [address] [place] Hematocrit (Bld) [Volume fraction] 31.2 % Low 36.0-46.0 [facility] Comment on above: Order Comment: Speci men Type: BLOOD SPECIMEN Ordering Facility: [facility] Address: [address] [place] [address] Performed By: #### 1 9123-9, 43256-1 #### [facility] CLIA [id number] [address] [place] [address] [place] Hemoglobin (Bld) [Mass/Vol] 9.6 g/dL Low 11.5-15.5 [facility] Comment on above: Order Comment: Speci men Type: BLOOD SPECIMEN Ordering Facility: [facility] Address: [address] [place] [address] Performed By: #### 1 91239, 63016-1 #### [facility] CLIA [id number] [address] [place] [address] [place] MCH (RBC) [Entitic mass] 32.1 pg Normal 26.0-34.0 [facility] Comment on above: Order Comment: Speci men Type: BLOOD SPECIMEN Ordering Facility: [facility] Address: [address] [place] [address] Performed By: #### 1 9123-9, 09623-8 #### [facility] CLIA [id number] [address] [place] [address] [place] [facility] MCHC (RBC) [Mass/Vol] 30.8 g/dL Normal 30.5-36.0 [facility] [facility] Comment on above: Order Comment: Speci men Type: BLOOD SPECIMEN Ordering Facility: [facility] Address: [address] [place] [address] Performed By: #### 1 9123-9, 23996-9 #### [facility] CLIA [id number] [address] [place] [address] [facility] MCV (RBC) [Entitic vol] 104.3 fL High 80.0-100.0 [facility] Comment on above: Order Comment: Speci men Type: BLOOD SPECIMEN Ordering Facility: [facility] Address: [address] [place] [address] Performed By: #### 1 9123-9, 41653-7 #### [facility] CLIA [id number] [address] [place] [address] [facility] Platelet mean volume (Bld) [Entitic vol] 10.1 fL Normal 9.0-12.7 [facility] Comment on above: Order Comment: Speci men Type: BLOOD SPECIMEN Ordering Facility: [facility] Address: [address] [place] [address] Performed By: #### 1 9123-9, 40450-6 #### [facility] CLIA [id number] [address] [place] [address] [facility] Platelets (Bld) [#/Vol] 246 10*3/uL Normal 150-400 [facility] Comment on above: Order Comment: Hilary ocampo Type: BLOOD SPECIMEN Ordering Facility: [facility] Address: [address] [place] [address] Performed By: #### 1 9123-9, 78956-2 #### [facility] CLIA [id number] [address] [place] [address] [facility] RBC (Bld) [#/Vol] 2.99 10*6/uL Low 3.90-5.20 [facility] Comment on above: Order Comment: Hilary men Type: BLOOD SPECIMEN Ordering Facility: [facility] Address: [address] [place] [address] Performed By: #### 1 9123-9, 97530-4 #### [facility] CLIA [id number] [address] [place] [address] [facility] WBC (Bld) [#/Vol] 6.52 10*3/uL Normal 3.70-11.00 [facility] Comment on above: Order Comment: Hilary ocampo Type: BLOOD SPECIMEN Ordering Facility: [facility] Address: [address] [place] [address] Performed By: #### 1 9123-9, 12824-4 #### [facility] CLIA [id number] [address] [place] [address] [facility] SOCIAL WORKon 02-08-2024 SOCIAL WORK HNO ID: [id number] Author: KRYSTYNA FOX LSW Service: Social Work Author Type: Musical String Maker Type: Social Work Filed: 02/08/2024 13:53 Note Text: Summary: KOKO quigley SOCIAL WORK PROGRESS NOTE Name: Jackelyn Bradshaw Informed patient that her insurance is asking for an update on 02/09. Told her the earliest they could discharge would be Thursday (02/12) Patient said she is in pain, but will probably have that for quite awhile. She said the doctor said it may take a year or more to heal. Patient says she thinks she will be ready to go home by the weekend. Signature: MICHELA Chanel Date: February 08, 2024 Time: 1:51 PM [facility] THERAPY NTon 02-08-2024 THERAPY NT HNO ID: [id number] Author: LETICIA WALTERS PT Service: Physical Therapy Author Type: Digital Retoucher Type: Therapy (PT/OT/Speech/Resp) Filed: 02/08/2024 17:54 Note Text: Attestation signed by Leticia Walters PT at 02/08/2024 5:54 PM I reviewed and agree with the documentation corresponding to this therapy visit. SIGNATURE: Leticia Walters PT DATE: February 08, 2024 TIME: 5:54 PM Physical Therapy Care Home Facility Treatment Summary SERVICE DATE: 02/08/2024 SERVICE TIME: 1258 to 1343 ROOM: [place] [address] PT 6 Clicks Score: 17 DISCHARGE RECOMMENDATIONS Home PT Recommended Discharge Disposition Comments: Anticipate need for 24 hour care upon dc due to cognitive limitations, and expected limitations post hip fx. Anticipated Discharge Needs: Family Training, Physical Assist at Home, Supervision at Home, Equipment Recommended Discharge Equipment: To Be Determined GOALS Patient will demonstrate progress with functional mobility to allow safe discharge to home with available support and/or physical assistance. Able to Perform HEP with: Supervision Rolling with: Modified Independent Transfer Supine to/from Sit with: Modified Independent Transfer Sit to/from Stand with: Modified Independent Ambulate with: Stand By Assistance Distance: 50 Device: Wheeled Walker Ambulate Up and Down Steps with: Minimal Assistance Number of Steps: 4 Device: Rail, Cane Rehab Potential: Fair Progress Toward Goals: Progressing as expected ASSESSMENT Response to Therapy Interventions: Good Participation in Activities Patient able to tolerate riding the nustep for 8 minutes in this afternoons session without and complaints of pain or discomfort. Plan for Next Visit: Gait Training, Exercise Instruction/Handout PRECAUTIONS Weight Bearing Restrictions, Bed/Chair Alarm ORIF L hip Left Lower Extremity Weight Bearing Status: WBAT SUBJECTIVE we can try FUNCTIONAL STATUS Bed Mobility Rolling: Stand By Assistance (with use of bed rails) Supine To Sit: Moderate Assistance (HOB elevated; assist LLE) Sit to Supine: Moderate Assistance (assist BLE) Scooting: Stand By Assistance Transfers Sit To Stand: Contact Guard Assistance Stand To Sit: Contact Guard Assistance Bed to Chair Contact Guard Assistance Bed To Chair Transfer Type: Stepping Bed To Chair Transfer Equipment: Gait Belt, Wheeled Walker Gait Contact Guard Assistance Gait Device: Wheeled Walker General Deviations/Observation s: Robyn decreased, Antalgic gait, Non-functional gait speed Gait Distance (feet): 15 x 2 Gait Deviations Left Lower Extremity: Step length decreased, Stance time decreased Stairs CURRENT HOSPITAL COURSE Admt to [facility] on 01/11 due to mechanical fall at home resulting in L intertrochanteric hip fracture. s/p ORIF L hip. Relevant Past Medical History: Arthitis, CA, HTN, lymphedema, dementia HOME LIVING Patient Lives With: Family (grandson and his and 1year old child, p-atient's dtr lives nearby) Assistance Available: Part-Time (need to verify with family. Patient poor historian.) Entry To Home: Stairs, With Rail Number Of Stairs Into Home: 4 Number Of Stairs To Bed/Bath: 0 Tub/Shower Type: tub shower with chair Laundry: family completes Equipment Owned: Walker- Wheeled, Lift Chair, Grab Bars- Toilet, Grab Bars- Shower, Shower Chair, Hand Held Shower, Commode- Raised, Emergency Response System PRIOR FUNCTIONAL LEVEL Required Assistance, History of Falls Assistance Required With: Cleaning, Laundry, Meals, Medication Management, Stairs, Safety, Self Care, Shopping, Transportation, Finances Pt questionable historian, pt reports IND with ADLS, family completes IALDs. ambulates with wheeled walker, history of falls (unable to recall an approximate amount however), sleeps in adjustable bed. Uses HOB elevated to get out of bed, uses lift chair during the day. States shw walks in the hallway every hour. THERAPY DIAGNOSIS Reduced mobility-other, Muscle Weakness (generalized) TREATMENT INTERVENTIONS Gait Training (64315), Therapeutic Activity (17003) Timed Code Treatment (minutes): 45 Skilled Treatment Time (minutes): 45 EXERCISE Exercises Exercise: Nustep seat 9 lvl 1 8 minutes LE only TRAINING AND EDUCATION PROVIDED Expected Functional Level, Falls Prevention, Gait Pattern, Reduction of Deviations, Benefits of In-Hospital Mobility THERAPEUTIC SKILLS USED Activity Dosing, Cuing Verbal, Physical Assist PLAN PT Frequency: 6 Times Per Week (3-4 weeks) Treatment Interventions: Strengthening, Functional Mobility Training SIGNATURE: Chase Bartlett PTA PATIENT NAME: Jackelyn Bradshaw DATE: February 08, 2024 TIME: 1:49 PM Normal [facility] THERAPY NT HNO ID: [id number] Author: ISABELLA SANCHEZ OTR/Lashae Service: Occupational Therapy Author Type: Digital Associate Type: Therapy (PT/OT/Speech/Resp) Filed: 02/08/2024 15:59 Note Text: Attestation signed by Isabella Sanchez OTR/L at 02/08/2024 3:59 PM I reviewed and agree with the documentation corresponding to this therapy visit. SIGNATURE: KATARZYNA Garcia DATE: February 08, 2024 TIME: 3:59 PM Occupational Therapy Care Home Facility Treatment Summary SERVICE DATE: 02/08/2024 SERVICE TIME: 1010 to 1100 ROOM: [place] [address] OT 6 Clicks Score: 21 DISCHARGE RECOMMENDATIONS Home OT (vs discharge to S[facility]IOR CARE/ECF) Recommended Discharge Disposition Comments: Pt's discharge disposition is dependent upon progress made and family ability to provide necessary assistance Anticipated Discharge Needs: Family Training, Physical Assist at Home, Supervision at Home, Equipment Recommended Discharge Equipment: To Be Determined GOALS Patient will demonstrate progress with self-care, cognitive and/or coping needs identified to allow safe discharge to home with available support and/or physical assistance. Grooming with: Set Up Upper Body Bathing with: Set Up Upper Body Dressing with: Set Up Lower Body Bathing with: Minimal Assistance Lower Body Dressing with: Moderate Assistance Toilet Hygiene with: Moderate Assistance Chair Transfer with: Contact Guard Assistance Toilet Transfer with: Contact Guard Assistance Shower Transfer with: Minimal Assistance Tolerate (minutes of functional activity): 45 Functional Activity with: Contact Guard Assistance Progress Toward Goals: Progressing as expected Rehab Potential: Good ASSESSMENT Response to Therapy Interventions: Good Participation in Activities, Improved Tolerance for Activity, Requires Additional Time to Complete Activities Pt improving in pacing and dynamic standing balance while managing clothing and bathing in standing this day. Plan for Next Visit: Bathing Training, Bed Mobility, Chair/Commode Transfer Training, Dressing Training, Standing Balance, Standing Tolerance, Toileting Instruction PRECAUTIONS Weight Bearing Restrictions, Bed/Chair Alarm ORIF L hip Left Lower Extremity Weight Bearing Status: WBAT SUBJECTIVE My hip feels better today. FUNCTIONAL STATUS Activities of Daily Living Assist Level Additional Information Feeding Set Up Grooming Set Up, Additional Information Bathing Upper Body Set Up, Additional Information sponge bathing in chair Bathing Lower Body Minimal Assistance, Additional Information sponge bathing in chair - assist for BLEs distal to george knees. Pt able to complete oliver-hygiene in standing. Dressing Upper Body Modified Independent seated in chair - doffing nightgown and donning overhead shirt Dressing Lower Body Stand By Assistance, Minimal Assistance donning socks and shorts with AE. Assist with GRACIA hose. Toileting Contact Guard Assistance using BSC; pt able to assist with clothing mgt aspects and hygiene to oliver/posterior areas; will need assistance for thorough hygiene following a BM up to Janet Instrumental Activities of Daily Living Assist Level Additional Information Meal/Beverage Prep Total Assistance Cleaning Total Assistance Laundry Total Assistance Medication Management with Strategies Total Assistance Mobility Assist Level Additional Information Bed Mobility Rolling: Minimal Assistance Supine To Sit: Minimal Assistance, Additional Information Sit To Supine: Moderate Assistance Sit to Stand Stand By Assistance from chair, BSC Stand to Sit Stand By Assistance Bed to Chair Contact Guard Assistance Bed To Chair Transfer Type: Stepping Bed To Chair Transfer Equipment: Wheeled Walker, Gait Belt Toilet/Commode Contact Guard Assistance, Additional Information Amb'ing 2 feet to BSC from chair. Shower Functional Mobility Contact Guard Assistance Functional Mobility Device: Wheeled Walker Pt amb to/from chair to BSC approx 2 feet x2 CURRENT HOSPITAL COURSE Admt to [facility] on 01/11 due to mechanical fall at home resulting in L intertrochanteric hip fracture. s/p ORIF L hip. Relevant Past Medical History: Arthitis, CA, HTN, lymphedema, dementia HOME LIVING Patient Lives With: Family (grandson and his and 1year old child, p-atient's dtr lives nearby) Assistance Available: Part-Time (need to verify with family. Patient poor historian.) Entry To Home: Stairs, With Rail Number Of Stairs Into Home: 4 Number Of Stairs To Bed/Bath: 0 Tub/Shower Type: tub shower with chair Laundry: family completes Equipment Owned: Walker- Wheeled, Lift Chair, Grab Bars- Toilet, Grab Bars- Shower, Shower Chair, Hand Held Shower, Commode- Raised, Emergency Response System PRIOR FUNCTIONAL LEVEL (more content not included)... Normal [facility] THERAPY NT HNO ID: [id number] Author: LETICIA WALTERS, PT Service: Physical Therapy Author Type: Digital Retoucher Type: Therapy (PT/OT/Speech/Resp) Filed: 02/08/2024 17:53 Note Text: Attestation signed by Leticia Walters, PT at 02/08/2024 5:53 PM I reviewed and agree with the documentation corresponding to this therapy visit. SIGNATURE: Leticia Walters PT DATE: February 08, 2024 TIME: 5:53 PM Physical Therapy Care Home Facility Treatment Summary SERVICE DATE: 02/08/2024 SERVICE TIME: 0935 to 1006 ROOM: [place] [address] PT 6 Clicks Score: 17 DISCHARGE RECOMMENDATIONS Home PT Recommended Discharge Disposition Comments: Anticipate need for 24 hour care upon dc due to cognitive limitations, and expected limitations post hip fx. Anticipated Discharge Needs: Family Training, Physical Assist at Home, Supervision at Home, Equipment Recommended Discharge Equipment: To Be Determined GOALS Patient will demonstrate progress with functional mobility to allow safe discharge to home with available support and/or physical assistance. Able to Perform HEP with: Supervision Rolling with: Modified Independent Transfer Supine to/from Sit with: Modified Independent Transfer Sit to/from Stand with: Modified Independent Ambulate with: Stand By Assistance Distance: 50 Device: Wheeled Walker Ambulate Up and Down Steps with: Minimal Assistance Number of Steps: 4 Device: Rail, Cane Rehab Potential: Fair Progress Toward Goals: Progressing as expected ASSESSMENT Response to Therapy Interventions: Good Participation in Activities, Improved Tolerance for Activity Patient able to walk farther in this session as she states that she still has some pain when ambulating however it is much less than before. Plan for Next Visit: Gait Training, Exercise Instruction/Handout PRECAUTIONS Weight Bearing Restrictions, Bed/Chair Alarm ORIF L hip Left Lower Extremity Weight Bearing Status: WBAT SUBJECTIVE It didn't hurt as bad when I walked today FUNCTIONAL STATUS Bed Mobility Rolling: Stand By Assistance (with use of bed rails) Supine To Sit: Moderate Assistance (HOB elevated; assist LLE) Sit to Supine: Moderate Assistance (assist BLE) Scooting: Stand By Assistance Transfers Sit To Stand: Contact Guard Assistance Stand To Sit: Contact Guard Assistance Bed to Chair Contact Guard Assistance Bed To Chair Transfer Type: Stepping Bed To Chair Transfer Equipment: Gait Belt, Wheeled Walker Gait Contact Guard Assistance Gait Device: Wheeled Walker, With Wheelchair Follow General Deviations/Observation s: Robyn decreased, Antalgic gait, Non-functional gait speed Gait Distance (feet): 20 x 3 Gait Deviations Left Lower Extremity: Step length decreased, Stance time decreased Stairs CURRENT HOSPITAL COURSE Admt to [facility] on 01/11 due to mechanical fall at home resulting in L intertrochanteric hip fracture. s/p ORIF L hip. Relevant Past Medical History: Arthitis, CA, HTN, lymphedema, dementia HOME LIVING Patient Lives With: Family (grandson and his and 1year old child, p-atient's dtr lives nearby) Assistance Available: Part-Time (need to verify with family. Patient poor historian.) Entry To Home: Stairs, With Rail Number Of Stairs Into Home: 4 Number Of Stairs To Bed/Bath: 0 Tub/Shower Type: tub shower with chair Laundry: family completes Equipment Owned: Walker- Wheeled, Lift Chair, Grab Bars- Toilet, Grab Bars- Shower, Shower Chair, Hand Held Shower, Commode- Raised, Emergency Response System PRIOR FUNCTIONAL LEVEL Required Assistance, History of Falls Assistance Required With: Cleaning, Laundry, Meals, Medication Management, Stairs, Safety, Self Care, Shopping, Transportation, Finances Pt questionable historian, pt reports IND with ADLS, family completes IALDs. ambulates with wheeled walker, history of falls (unable to recall an approximate amount however), sleeps in adjustable bed. Uses HOB elevated to get out of bed, uses lift chair during the day. States shw walks in the hallway every hour. THERAPY DIAGNOSIS Reduced mobility-other, Muscle Weakness (generalized) TREATMENT INTERVENTIONS Gait Training (83039), Therapeutic Exercise (87727) Timed Code Treatment (minutes): 31 Skilled Treatment Time (minutes): 31 EXERCISE Exercises Exercise Performed: Heel Slides, SAQ, LAQ, Hip Abduction Heel Slides (number of reps): 10 SAQ (number of reps): 10 LAQ (number of reps): 10 Hip Abduction (number of reps): 10 Exercise: seated december TRAINING AND EDUCATION PROVIDED Benefits of In-Hospital Mobility, Exercise Program, Expected Functional Level, Gait Pattern, Reduction of Deviations, Falls Prevention THERAPEUTIC SKILLS USED Activity Dosing, Cuing Verbal, Cuing Visual, Cuin (more content not included)... Normal [facility] THERAPY NTon 02-06-2024 THERAPY NT HNO ID: [id number] Author: JAYE MARK OTR/L Service: Occupational Therapy Author Type: Occupational Therapist Type: Therapy (PT/OT/Speech/Resp) Filed: 02/06/2024 14:03 Note Text: Occupational Therapy Care Home Facility Treatment Summary SERVICE DATE: 02/06/2024 SERVICE TIME: 1335 to 1358 ROOM: [place] [address] OT 6 Clicks Score: 20 DISCHARGE RECOMMENDATIONS Home OT (vs discharge to SENIOR CARE/ECF) Recommended Discharge Disposition Comments: Pt's discharge disposition is dependent upon progress made and family ability to provide necessary assistance Anticipated Discharge Needs: Family Training, Physical Assist at Home, Supervision at Home, Equipment Recommended Discharge Equipment: To Be Determined GOALS Patient will demonstrate progress with self-care, cognitive and/or coping needs identified to allow safe discharge to home with available support and/or physical assistance. Grooming with: Set Up Upper Body Bathing with: Set Up Upper Body Dressing with: Set Up Lower Body Bathing with: Minimal Assistance Lower Body Dressing with: Moderate Assistance Toilet Hygiene with: Moderate Assistance Chair Transfer with: Contact Guard Assistance Toilet Transfer with: Contact Guard Assistance Shower Transfer with: Minimal Assistance Tolerate (minutes of functional activity): 45 Functional Activity with: Contact Guard Assistance Progress Toward Goals: Progressing as expected Rehab Potential: Good ASSESSMENT Response to Therapy Interventions: Good Participation in Activities, Improved Tolerance for Activity, Requires Additional Time to Complete Activities pt limited this date d/t pain; declining OOB mobility or ADLS; agreeable to review HEP with pink theraband seated in bed Plan for Next Visit: Bathing Training, Bed Mobility, Chair/Commode Transfer Training, Dressing Training, Standing Balance, Standing Tolerance, Toileting Instruction PRECAUTIONS Weight Bearing Restrictions, Bed/Chair Alarm ORIF L hip Left Lower Extremity Weight Bearing Status: WBAT SUBJECTIVE Oh I can't do anything right now. My hip is really bothering me. Pt agreeable for supine exercises FUNCTIONAL STATUS Activities of Daily Living Assist Level Additional Information Feeding Set Up Grooming Set Up, Additional Information Bathing Upper Body Set Up, Additional Information Bathing Lower Body Minimal Assistance, Additional Information Dressing Upper Body Set Up, Additional Information Dressing Lower Body Stand By Assistance, Additional Information Toileting Minimal Assistance, Additional Information Instrumental Activities of Daily Living Assist Level Additional Information Meal/Beverage Prep Total Assistance Cleaning Total Assistance Laundry Total Assistance Medication Management with Strategies Total Assistance Mobility Assist Level Additional Information Bed Mobility Rolling: Minimal Assistance Supine To Sit: Minimal Assistance, Additional Information Sit To Supine: Moderate Assistance Sit to Stand Stand By Assistance Stand to Sit Stand By Assistance Bed to Chair Contact Guard Assistance Bed To Chair Transfer Type: Stepping Bed To Chair Transfer Equipment: Wheeled Walker, Gait Belt Toilet/Commode Contact Guard Assistance, Additional Information Shower Functional Mobility Contact Guard Assistance Functional Mobility Device: Wheeled Walker CURRENT HOSPITAL COURSE Admt to [facility] on 01/11 due to mechanical fall at home resulting in L intertrochanteric hip fracture. s/p ORIF L hip. Relevant Past Medical History: Arthitis, CA, HTN, lymphedema, dementia HOME LIVING Patient Lives With: Family (grandson and his and 1year old child, p-atient's dtr lives nearby) Assistance Available: Part-Time (need to verify with family. Patient poor historian.) Entry To Home: Stairs, With Rail Number Of Stairs Into Home: 4 Number Of Stairs To Bed/Bath: 0 Tub/Shower Type: tub shower with chair Laundry: family completes Equipment Owned: Walker- Wheeled, Lift Chair, Grab Bars- Toilet, Grab Bars- Shower, Shower Chair, Hand Held Shower, Commode- Raised, Emergency Response System PRIOR FUNCTIONAL LEVEL Required Assistance, History of Falls Assistance Required With: Cleaning, Laundry, Meals, Medication Management, Stairs, Safety, Self Care, Shopping, Transportation, Finances Pt questionable historian, pt reports IND with ADLS, family completes IALDs. ambulates with wheeled walker, history of falls (unable to recall an approximate amount however), sleeps in adjustable bed. Uses HOB elevated to get out of bed, uses lift chair during the day. States shw walks in the hallway every hour. Baseline Cognition: Oriented to self, Requires 24/7 supervision, Oriented to situation COGNITION Communication Deficits: Delayed Response Orientation Deficits: Not oriented to Place, Not oriented to Time Responsiveness: Drowsy, Alert Follows Commands: 1-step Commands, (more content not included)... Normal [facility] THERAPY NT HNO ID: [id number] Author: LETICIA WALTERS, PT Service: Physical Therapy Author Type: Digital Retoucher Type: Therapy (PT/OT/Speech/Resp) Filed: 02/08/2024 17:53 Note Text: Attestation signed by Leticia Walters, PT at 02/08/2024 5:53 PM I reviewed and agree with the documentation corresponding to this therapy visit. SIGNATURE: Leticia Walters, PT DATE: February 08, 2024 TIME: 5:53 PM Physical Therapy Care Home Facility Treatment Summary SERVICE DATE: 02/06/2024 SERVICE TIME: 1032 to 1106 ROOM: [place] [address] PT 6 Clicks Score: 17 DISCHARGE RECOMMENDATIONS Home PT Recommended Discharge Disposition Comments: Anticipate need for 24 hour care upon dc due to cognitive limitations, and expected limitations post hip fx. Anticipated Discharge Needs: Family Training, Physical Assist at Home, Supervision at Home, Equipment Recommended Discharge Equipment: To Be Determined GOALS Patient will demonstrate progress with functional mobility to allow safe discharge to home with available support and/or physical assistance. Able to Perform HEP with: Supervision Rolling with: Modified Independent Transfer Supine to/from Sit with: Modified Independent Transfer Sit to/from Stand with: Modified Independent Ambulate with: Stand By Assistance Distance: 50 Device: Wheeled Walker Ambulate Up and Down Steps with: Minimal Assistance Number of Steps: 4 Device: Rail, Cane Rehab Potential: Fair Progress Toward Goals: Progressing slower than expected ASSESSMENT Response to Therapy Interventions: Good Participation in Activities Patient agreeable to ambulate in this session however she amulates slightly this than before as she has complaints of both left knee and hip pain. Plan for Next Visit: Gait Training, Exercise Instruction/Handout PRECAUTIONS Weight Bearing Restrictions, Bed/Chair Alarm ORIF L hip Left Lower Extremity Weight Bearing Status: WBAT SUBJECTIVE My knee hurt a little bit but not anymore FUNCTIONAL STATUS Bed Mobility Rolling: Stand By Assistance (with use of bed rails) Supine To Sit: Moderate Assistance (HOB elevated; assist LLE) Sit to Supine: Moderate Assistance (assist BLE) Scooting: Stand By Assistance Transfers Sit To Stand: Contact Guard Assistance Stand To Sit: Contact Guard Assistance Bed to Chair Contact Guard Assistance Bed To Chair Transfer Type: Stepping Bed To Chair Transfer Equipment: Gait Belt, Wheeled Walker Gait Contact Guard Assistance Gait Device: Wheeled Walker, With Wheelchair Follow General Deviations/Observation s: Robyn decreased, Antalgic gait, Non-functional gait speed Gait Distance (feet): 15 x 3 Gait Deviations Left Lower Extremity: Step length decreased, Stance time decreased Stairs CURRENT HOSPITAL COURSE Admt to [facility] on 01/11 due to mechanical fall at home resulting in L intertrochanteric hip fracture. s/p ORIF L hip. Relevant Past Medical History: Arthitis, CA, HTN, lymphedema, dementia HOME LIVING Patient Lives With: Family (grandson and his and 1year old child, p-atient's dtr lives nearby) Assistance Available: Part-Time (need to verify with family. Patient poor historian.) Entry To Home: Stairs, With Rail Number Of Stairs Into Home: 4 Number Of Stairs To Bed/Bath: 0 Tub/Shower Type: tub shower with chair Laundry: family completes Equipment Owned: Walker- Wheeled, Lift Chair, Grab Bars- Toilet, Grab Bars- Shower, Shower Chair, Hand Held Shower, Commode- Raised, Emergency Response System PRIOR FUNCTIONAL LEVEL Required Assistance, History of Falls Assistance Required With: Cleaning, Laundry, Meals, Medication Management, Stairs, Safety, Self Care, Shopping, Transportation, Finances Pt questionable historian, pt reports IND with ADLS, family completes IALDs. ambulates with wheeled walker, history of falls (unable to recall an approximate amount however), sleeps in adjustable bed. Uses HOB elevated to get out of bed, uses lift chair during the day. States shw walks in the hallway every hour. THERAPY DIAGNOSIS Reduced mobility-other, Muscle Weakness (generalized) TREATMENT INTERVENTIONS Gait Training (03353), Therapeutic Activity (25488) Timed Code Treatment (minutes): 34 Skilled Treatment Time (minutes): 34 EXERCISE None performed this session TRAINING AND EDUCATION PROVIDED Gait Pattern, Reduction of Deviations, Falls Prevention, Bed Mobility, Benefits of In-Hospital Mobility THERAPEUTIC SKILLS USED Activity Dosing, Cuing Verbal, Physical Assist PLAN PT Frequency: 6 Times Per Week (3-4 weeks) Treatment Interventions: Strengthening, Functional Mobility Training SIGNATURE: Chase Bartlett PTA PATIENT NAME: Jackelyn Bradshaw DATE: February 06, 2024 TIME: 11:23 AM [facility] NURSING PROGon 02-05-2024 NURSING PROG HNO ID: [id number] Author: FRANCA HARRISON RN Service: Nursing Author Type: Registered Nurse Type: Nursing Progress Note Filed: 02/05/2024 09:00 Note Text: Assisted patient up in bed for breakfast. All treatments and procedures were explained. Informed patient that she is an early up for OT this morning around 8:45. Patient verbalized understanding. Heels elevated on pillow. No questions or concerns were voiced at this time. [facility] SOCIAL WORKon 02-05-2024 SOCIAL WORK HNO ID: [id number] Author: KRYSTYNA FOX LSW Service: Social Work Author Type: Musical String Maker Type: Social Work Filed: 02/05/2024 15:33 Note Text: Summary: [facility] SOCIAL WORK PROGRESS NOTE Name: Jackelyn Bradshaw Patient has another insurance update on 02/09. She said her daughter was pleased that she is able to stay longer. Patient says things are going okay. She has no concerns at this time. Signature: MICHELA Chanel Date: February 05, 2024 Time: 3:32 PM [facility] THERAPY NTon 02-05-2024 THERAPY NT HNO ID: [id number] Author: ELLE HOOVER PT Service: Physical Therapy Author Type: Digital Retoucher Type: Therapy (PT/OT/Speech/Resp) Filed: 02/05/2024 12:54 Note Text: Attestation signed by Elle Hoover PT at 02/05/2024 12:54 PM I reviewed and agree with the documentation corresponding to this therapy visit. SIGNATURE: Elle Hoover PT DATE: February 05, 2024 TIME: 12:54 PM Physical Therapy Care Home Facility Treatment Summary SERVICE DATE: 02/05/2024 SERVICE TIME: 1035 to 1105 ROOM: [place] [address] PT 6 Clicks Score: 17 DISCHARGE RECOMMENDATIONS Home PT Recommended Discharge Disposition Comments: Anticipate need for 24 hour care upon dc due to cognitive limitations, and expected limitations post hip fx. Anticipated Discharge Needs: Family Training, Physical Assist at Home, Supervision at Home, Equipment Recommended Discharge Equipment: To Be Determined GOALS Patient will demonstrate progress with functional mobility to allow safe discharge to home with available support and/or physical assistance. Able to Perform HEP with: Supervision Rolling with: Modified Independent Transfer Supine to/from Sit with: Modified Independent Transfer Sit to/from Stand with: Modified Independent Ambulate with: Stand By Assistance Distance: 50 Device: Wheeled Walker Ambulate Up and Down Steps with: Minimal Assistance Number of Steps: 4 Device: Rail, Cane Rehab Potential: Fair Progress Toward Goals: Progressing slower than expected ASSESSMENT Response to Therapy Interventions: Good Participation in Activities Patient able to walk a little bit more in this session however she continues to require verbal cues to look up when walking and peanut picker her feet. Plan for Next Visit: Gait Training, Exercise Instruction/Handout PRECAUTIONS Weight Bearing Restrictions, Bed/Chair Alarm ORIF L hip Left Lower Extremity Weight Bearing Status: WBAT SUBJECTIVE Patient seated in the chair agreeable to therapy FUNCTIONAL STATUS Bed Mobility Rolling: Stand By Assistance (with use of bed rails) Supine To Sit: Moderate Assistance (HOB elevated; assist LLE) Sit to Supine: Moderate Assistance (assist BLE) Scooting: Stand By Assistance Transfers Sit To Stand: Contact Guard Assistance Stand To Sit: Contact Guard Assistance Bed to Chair Contact Guard Assistance Bed To Chair Transfer Type: Stepping Bed To Chair Transfer Equipment: Gait Belt, Wheeled Walker Gait Contact Guard Assistance Gait Device: Wheeled Walker, With Wheelchair Follow General Deviations/Observation s: Robyn decreased, Antalgic gait, Non-functional gait speed Gait Distance (feet): 15 x 3 Gait Deviations Left Lower Extremity: Step length decreased, Stance time decreased Stairs CURRENT HOSPITAL COURSE Admt to [facility] on 01/11 due to mechanical fall at home resulting in L intertrochanteric hip fracture. s/p ORIF L hip. Relevant Past Medical History: Arthitis, CA, HTN, lymphedema, dementia HOME LIVING Patient Lives With: Family (grandson and his and 1year old child, p-atient's dtr lives nearby) Assistance Available: Part-Time (need to verify with family. Patient poor historian.) Entry To Home: Stairs, With Rail Number Of Stairs Into Home: 4 Number Of Stairs To Bed/Bath: 0 Tub/Shower Type: tub shower with chair Laundry: family completes Equipment Owned: Walker- Wheeled, Lift Chair, Grab Bars- Toilet, Grab Bars- Shower, Shower Chair, Hand Held Shower, Commode- Raised, Emergency Response System PRIOR FUNCTIONAL LEVEL Required Assistance, History of Falls Assistance Required With: Cleaning, Laundry, Meals, Medication Management, Stairs, Safety, Self Care, Shopping, Transportation, Finances Pt questionable historian, pt reports IND with ADLS, family completes IALDs. ambulates with wheeled walker, history of falls (unable to recall an approximate amount however), sleeps in adjustable bed. Uses HOB elevated to get out of bed, uses lift chair during the day. States shw walks in the hallway every hour. THERAPY DIAGNOSIS Reduced mobility-other, Muscle Weakness (generalized) TREATMENT INTERVENTIONS Gait Training (31967), Therapeutic Exercise (81469) Timed Code Treatment (minutes): 30 Skilled Treatment Time (minutes): 30 EXERCISE Exercises Exercise Performed: Ankle Pumps, Heel Slides, SAQ, LAQ, Hip Abduction Ankle Pumps (number of reps): 15 Heel Slides (number of reps): 10 SAQ (number of reps): 10 LAQ (number of reps): 10 Hip Abduction (number of reps): 10 TRAINING AND EDUCATION PROVIDED Benefits of In-Hospital Mobility, Discharge Planning, Exercise Program, Expected Functional Level, Falls Prevention, Gait Pattern, Reduction of Deviations THERAPEUTIC SKILLS USED Activity Dosing, Cuing Verb (more content not included)... [facility] THERAPY NT HNO ID: [id number] Author: BI GARCIA OTR/Lashae Service: ? Author Type: Occupational Therapist Type: Therapy (PT/OT/Speech/Resp) Filed: 02/05/2024 09:45 Note Text: Occupational Therapy Care Home Facility Treatment Summary SERVICE DATE: 02/05/2024 SERVICE TIME: 08 to 931 ROOM: [place] [address] OT 6 Clicks Score: 20 DISCHARGE RECOMMENDATIONS Home OT (vs discharge to [facility]) Recommended Discharge Disposition Comments: Pt's discharge disposition is dependent upon progress made and family ability to provide necessary assistance Anticipated Discharge Needs: Family Training, Physical Assist at Home, Supervision at Home, Equipment Recommended Discharge Equipment: To Be Determined GOALS Patient will demonstrate progress with self-care, cognitive and/or coping needs identified to allow safe discharge to home with available support and/or physical assistance. Grooming with: Set Up Upper Body Bathing with: Set Up Upper Body Dressing with: Set Up Lower Body Bathing with: Minimal Assistance Lower Body Dressing with: Moderate Assistance Toilet Hygiene with: Moderate Assistance Chair Transfer with: Contact Guard Assistance Toilet Transfer with: Contact Guard Assistance Shower Transfer with: Minimal Assistance Tolerate (minutes of functional activity): 45 Functional Activity with: Contact Guard Assistance Progress Toward Goals: Progressing as expected Rehab Potential: Good ASSESSMENT Response to Therapy Interventions: Good Participation in Activities, Improved Tolerance for Activity, Requires Additional Time to Complete Activities Pt continues to demo improvements with STS's and fxl transfers with use of FWW, completing with SBA-CGA this date with good technique. Pt participated in sponge bath ADL at EOB with set-up, except Min A required for LB bathing for thoroughness with posterior and bilateral feet this date w/o use of LHS. Pt dressed self with AE with SBA. Pt would benefit from continued OT services for further progress with LB ADLs for increased (I) prior to d/c home. Plan for Next Visit: Bathing Training, Bed Mobility, Chair/Commode Transfer Training, Dressing Training, Standing Balance, Standing Tolerance, Toileting Instruction PRECAUTIONS Weight Bearing Restrictions, Bed/Chair Alarm ORIF L hip Left Lower Extremity Weight Bearing Status: WBAT SUBJECTIVE I'm good how are you. Pt agreeable to OT ADL session FUNCTIONAL STATUS Activities of Daily Living Assist Level Additional Information Feeding Set Up Grooming Set Up, Additional Information combing hair seated in chair; washing face seated EOB Bathing Upper Body Set Up, Additional Information sponge batheing EOB Bathing Lower Body Minimal Assistance, Additional Information sponge bathing EOB ; assist for bilateral feet and thoroughness with buttocks Dressing Upper Body Set Up, Additional Information seated EOB; doffed nightdown and donned tshirt Dressing Lower Body Stand By Assistance, Additional Information doffed socks with dressing stick ; donned socks with sock-aid ; donned pants with shuttle route vehicle operator. Toileting Minimal Assistance, Additional Information Instrumental Activities of Daily Living Assist Level Additional Information Meal/Beverage Prep Total Assistance Cleaning Total Assistance Laundry Total Assistance Medication Management with Strategies Total Assistance Mobility Assist Level Additional Information Bed Mobility Rolling: Minimal Assistance Supine To Sit: Minimal Assistance, Additional Information HOB elevated and use of bedrail; minimal assist required for mgmt of LLE and for lifting upper body to upright position. Sit To Supine: Moderate Assistance Sit to Stand Stand By Assistance from EOB Stand to Sit Stand By Assistance Bed to Chair Contact Guard Assistance Bed To Chair Transfer Type: Stepping Bed To Chair Transfer Equipment: Wheeled Walker, Gait Belt Toilet/Commode Contact Guard Assistance, Additional Information Shower Functional Mobility Contact Guard Assistance Functional Mobility Device: Wheeled Walker CURRENT HOSPITAL COURSE Admt to [facility] on 01/11 due to mechanical fall at home resulting in L intertrochanteric hip fracture. s/p ORIF L hip. Relevant Past Medical History: Arthitis, CA, HTN, lymphedema, dementia HOME LIVING Patient Lives With: Family (grandson and his and 1year old child, p-atient's dtr lives nearby) Assistance Available: Part-Time (need to verify with family. Patient poor historian.) Entry To Home: Stairs, With Rail Number Of Stairs Into Home: 4 Number Of Stairs To Bed/Bath: 0 Tub/Shower Type: tub shower with chair Laundry: family completes Equipment Owned: Walker- Wheeled, Lift Chair, Grab Bars- Toilet, Grab Bars- Shower, Shower Chair, Hand Held Shower, Commode- Raised, Emergency Response System PRIOR FUNCTIONAL LEVEL Required Assistance, History of Falls Assistance Required With: Cleaning, Laundry, (more content not included)... [facility] SOCIAL WORKon 02-04-2024 SOCIAL WORK HNO ID: [id number] Author: KRYSTYNA FOX LSW Service: Social Work Author Type: Musical String Maker Type: Social Work Filed: 02/05/2024 11:25 Note Text: Summary: Appeal/Family Call SOCIAL WORK PROGRESS NOTE Name: Jackelyn Bradshaw Received notice from Attributor that they disagree with the termination of services at this time. Determination letter to follow. Called dtr Tez. She had received notice also. Asking how long patient will be able to stay. Told her insurance will issue another request for update and go from there. Tez said patient was accepted for ramp campos that Radha received through the [facility] and a $4600 ramp will be covered at 100%. [employer] is loaning a bi-fold ramp until the permanent ramp is built. Signature: MICHELA Chanel Date: February 04, 2024 Time: 2:42 PM [facility] THERAPY NTon 02-04-2024 THERAPY NT HNO ID: [id number] Author: ELLE HOOVER PT Service: Physical Therapy Author Type: Digital Retoucher Type: Therapy (PT/OT/Speech/Resp) Filed: 02/05/2024 12:54 Note Text: Attestation signed by Elle Hoover, PT at 02/05/2024 12:54 PM I reviewed and agree with the documentation corresponding to this therapy visit. SIGNATURE: Elle Hoover PT DATE: February 05, 2024 TIME: 12:53 PM Physical Therapy Care Home Facility Treatment Summary SERVICE DATE: 02/04/2024 SERVICE TIME: 1452 to 1540 ROOM: [place] [address] PT 6 Clicks Score: 17 DISCHARGE RECOMMENDATIONS Home PT Recommended Discharge Disposition Comments: Anticipate need for 24 hour care upon dc due to cognitive limitations, and expected limitations post hip fx. Anticipated Discharge Needs: Family Training, Physical Assist at Home, Supervision at Home, Equipment Recommended Discharge Equipment: To Be Determined GOALS Patient will demonstrate progress with functional mobility to allow safe discharge to home with available support and/or physical assistance. Able to Perform HEP with: Supervision Rolling with: Modified Independent Transfer Supine to/from Sit with: Modified Independent Transfer Sit to/from Stand with: Modified Independent Ambulate with: Stand By Assistance Distance: 50 Device: Wheeled Walker Ambulate Up and Down Steps with: Minimal Assistance Number of Steps: 4 Device: Rail, Cane Rehab Potential: Fair Progress Toward Goals: Progressing slower than expected ASSESSMENT Response to Therapy Interventions: Good Participation in Activities Patient able to ambulate in the hallway some this session with a wheelchair follow as she is able to make it approximatley 15 feet each time before she states she needs to sit due to pain in her left hip. Plan for Next Visit: Gait Training, Exercise Instruction/Handout PRECAUTIONS Weight Bearing Restrictions, Bed/Chair Alarm ORIF L hip Left Lower Extremity Weight Bearing Status: WBAT SUBJECTIVE Patient agreeable to attempt ambulating in the [place] FUNCTIONAL STATUS Bed Mobility Rolling: Stand By Assistance (with use of bed rails) Supine To Sit: Moderate Assistance (HOB elevated; assist LLE) Sit to Supine: Moderate Assistance (assist BLE) Scooting: Contact Guard Assistance Transfers Sit To Stand: Contact Guard Assistance, Minimal Assistance (Min A from low wheelchair espically when fatigued) Stand To Sit: Contact Guard Assistance Bed to Chair Contact Guard Assistance Bed To Chair Transfer Type: Stepping Bed To Chair Transfer Equipment: Gait Belt, Wheeled Walker Gait Contact Guard Assistance Gait Device: Wheeled Walker, With Wheelchair Follow General Deviations/Observation s: Robyn decreased, Antalgic gait, Non-functional gait speed Gait Distance (feet): 15 x 2 Gait Deviations Left Lower Extremity: Step length decreased, Stance time decreased Stairs CURRENT HOSPITAL COURSE Admt to [facility] on 01/11 due to mechanical fall at home resulting in L intertrochanteric hip fracture. s/p ORIF L hip. Relevant Past Medical History: Arthitis, CA, HTN, lymphedema, dementia HOME LIVING Patient Lives With: Family (grandson and his and 1year old child, p-atient's dtr lives nearby) Assistance Available: Part-Time (need to verify with family. Patient poor historian.) Entry To Home: Stairs, With Rail Number Of Stairs Into Home: 4 Number Of Stairs To Bed/Bath: 0 Tub/Shower Type: tub shower with chair Laundry: family completes Equipment Owned: Walker- Wheeled, Lift Chair, Grab Bars- Toilet, Grab Bars- Shower, Shower Chair, Hand Held Shower, Commode- Raised, Emergency Response System PRIOR FUNCTIONAL LEVEL Required Assistance, History of Falls Assistance Required With: Cleaning, Laundry, Meals, Medication Management, Stairs, Safety, Self Care, Shopping, Transportation, Finances Pt questionable historian, pt reports IND with ADLS, family completes IALDs. ambulates with wheeled walker, history of falls (unable to recall an approximate amount however), sleeps in adjustable bed. Uses HOB elevated to get out of bed, uses lift chair during the day. States shw walks in the hallway every hour. THERAPY DIAGNOSIS Reduced mobility-other, Muscle Weakness (generalized) TREATMENT INTERVENTIONS Therapeutic Exercise (47718), Gait Training (06144) Timed Code Treatment (minutes): 48 Skilled Treatment Time (minutes): 48 EXERCISE Exercises Exercise Performed: Ankle Pumps, Heel Slides, SAQ, SLR, Hip Abduction, LAQ Ankle Pumps (number of reps): 20 Heel Slides (number of reps): 10 SAQ (number of reps): 10 LAQ (number of reps): 10 SLR (number of reps): 10 Hip Abduction (number of reps): 10 TRAINING AND EDUCATION PROVIDED Bed Mobility, Discharge Planning, Will (more content not included)... [facility] THERAPY NT HNO ID: [id number] Author: JAMES NANCE OTA/L Service: Occupational Therapy Author Type: Digital Associate Type: Therapy (PT/OT/Speech/Resp) Filed: 02/04/2024 14:21 Note Text: Attestation signed by Bi Garcia OTR/L at 02/04/2024 3:20 PM I reviewed and agree with the documentation corresponding to this therapy visit. SIGNATURE: KATARZYNA Newman DATE: February 04, 2024 TIME: 3:20 PM Occupational Therapy Care Home Facility Treatment Summary SERVICE DATE: 02/04/2024 SERVICE TIME: 1326 to 1352 ROOM: [place] [address] OT 6 Clicks Score: 20 DISCHARGE RECOMMENDATIONS Home OT (vs discharge to [facility]/EC[facility]) Recommended Discharge Disposition Comments: Pt's discharge disposition is dependent upon progress made and family ability to provide necessary assistance Anticipated Discharge Needs: Family Training, Physical Assist at Home, Supervision at Home, Equipment Recommended Discharge Equipment: To Be Determined GOALS Patient will demonstrate progress with self-care, cognitive and/or coping needs identified to allow safe discharge to home with available support and/or physical assistance. Grooming with: Set Up Upper Body Bathing with: Set Up Upper Body Dressing with: Set Up Lower Body Bathing with: Minimal Assistance Lower Body Dressing with: Moderate Assistance Toilet Hygiene with: Moderate Assistance Chair Transfer with: Contact Guard Assistance Toilet Transfer with: Contact Guard Assistance Shower Transfer with: Minimal Assistance Tolerate (minutes of functional activity): 45 Functional Activity with: Contact Guard Assistance Progress Toward Goals: Progressing as expected Rehab Potential: Good ASSESSMENT Response to Therapy Interventions: Good Participation in Activities, Low Activity Tolerance, Needs Frequent Redirection or Reinstruction, Requires Additional Time to Complete Activities Pt improving in STSs and LB dressing this day. Will continue to require assist in self-care but would benefit from continued skilled OT services in order to increase IND in these [place]. Plan for Next Visit: Bed Mobility, Chair/Commode Transfer Training, Energy Conservation, Exercise Instruction/Handout, Grooming Training, Sit to Stand Transfers, Standing Balance, Standing Tolerance, Toileting Instruction PRECAUTIONS Weight Bearing Restrictions, Bed/Chair Alarm ORIF L hip Left Lower Extremity Weight Bearing Status: WBAT SUBJECTIVE Pt reporting she does not care for her new accomodations as she has moved rooms. Pt reporting feeling tired - ending session early stating, I'm tired and I just want to rest. I don't really want to do any more. FUNCTIONAL STATUS Activities of Daily Living Assist Level Additional Information Feeding Set Up Grooming Set Up, Additional Information Bathing Upper Body Set Up, Additional Information Bathing Lower Body Additional Information, Minimal Assistance Dressing Upper Body Set Up, Additional Information Dressing Lower Body Contact Guard Assistance, Additional Information to change depends - Use of LHR to thread over BLEs Toileting Minimal Assistance, Additional Information using BSC; pt able to assist with clothing mgt aspects and hygiene to oliver/posterior areas; will need assistance for thorough hygiene following a BM up to ModA Instrumental Activities of Daily Living Assist Level Additional Information Meal/Beverage Prep Total Assistance Cleaning Total Assistance Laundry Total Assistance Medication Management with Strategies Total Assistance Mobility Assist Level Additional Information Bed Mobility Rolling: Minimal Assistance Supine To Sit: Minimal Assistance Sit To Supine: Moderate Assistance Sit to Stand Contact Guard Assistance, Additional Information from recliner chair and BSC; verbal cues needed for technique including to lean forward Stand to Sit Contact Guard Assistance cues needed for proper alignment of self to chair/commode; pt improved with recalling hand placement Bed to Chair Contact Guard Assistance, Additional Information Bed To Chair Transfer Type: Stand Pivot Bed To Chair Transfer Equipment: Wheeled Walker, Gait Belt Toilet/Commode Contact Guard Assistance, Additional Information for sit to stand from chair and doing stand pivot to BSC and back to chair. Verbal cues throughout for walker mgt and proper alignment of self to commode seat Shower Functional Mobility Contact Guard Assistance Functional Mobility Device: Wheeled Walker Pt completed transfers at a CGA level but is extremely slow during all transfers/mobility skills CURRENT HOSPITAL COURSE Admt to [facility] on 4/9 due to mechanical fall at home resulting in L intertrochanteric hip fracture. s/p ORIF L hip. Relevant Past Medical History: Arthitis, (more content not included)... [facility] THERAPY NT HNO ID: [id number] Author: ELLE HOOVER PT Service: Physical Therapy Author Type: Digital Retoucher Type: Therapy (PT/OT/Speech/Resp) Filed: 02/04/2024 13:33 Note Text: Attestation signed by Elle Hoover PT at 02/04/2024 1:33 PM I reviewed and agree with the documentation corresponding to this therapy visit. SIGNATURE: Elle Hoover PT DATE: February 04, 2024 TIME: 1:33 PM [facility] Treatment Summary SERVICE DATE: 02/04/2024 SERVICE TIME: 845 to 927 ROOM: [place] [address] PT 6 Clicks Score: 17 DISCHARGE RECOMMENDATIONS Home PT Recommended Discharge Disposition Comments: Anticipate need for 24 hour care upon dc due to cognitive limitations, and expected limitations post hip fx. Anticipated Discharge Needs: Family Training, Physical Assist at Home, Supervision at Home, Equipment Recommended Discharge Equipment: To Be Determined GOALS Patient will demonstrate progress with functional mobility to allow safe discharge to home with available support and/or physical assistance. Able to Perform HEP with: Supervision Rolling with: Modified Independent Transfer Supine to/from Sit with: Modified Independent Transfer Sit to/from Stand with: Modified Independent Ambulate with: Stand By Assistance Distance: 50 Device: Wheeled Walker Ambulate Up and Down Steps with: Minimal Assistance Number of Steps: 4 Device: Rail, Cane Rehab Potential: Fair Progress Toward Goals: Progressing slower than expected ASSESSMENT Response to Therapy Interventions: Good Participation in Activities Patient able to walk a little bit farther in this session without needing to take a rest break. Plan for Next Visit: Gait Training, Exercise Instruction/Handout PRECAUTIONS Weight Bearing Restrictions, Bed/Chair Alarm ORIF L hip Left Lower Extremity Weight Bearing Status: WBAT SUBJECTIVE I don't have any pain yet FUNCTIONAL STATUS Bed Mobility Rolling: Stand By Assistance (with use of bed rails) Supine To Sit: Moderate Assistance (HOB elevated; assist LLE) Sit to Supine: Moderate Assistance (assist BLE) Scooting: Contact Guard Assistance Transfers Sit To Stand: Contact Guard Assistance Stand To Sit: Contact Guard Assistance Bed to Chair Contact Guard Assistance Bed To Chair Transfer Type: Stepping Bed To Chair Transfer Equipment: Gait Belt, Wheeled Walker Gait Contact Guard Assistance Gait Device: Wheeled Walker General Deviations/Observation s: Robyn decreased, Antalgic gait, Non-functional gait speed Gait Distance (feet): 10 x 2 Gait Deviations Left Lower Extremity: Step length decreased, Stance time decreased Stairs CURRENT HOSPITAL COURSE Admt to [facility] on 01/11 due to mechanical fall at home resulting in L intertrochanteric hip fracture. s/p ORIF L hip. Relevant Past Medical History: Arthitis, CA, HTN, lymphedema, dementia HOME LIVING Patient Lives With: Family (grandson and his and 1year old child, p-atient's dtr lives nearby) Assistance Available: Part-Time (need to verify with family. Patient poor historian.) Entry To Home: Stairs, With Rail Number Of Stairs Into Home: 4 Number Of Stairs To Bed/Bath: 0 Tub/Shower Type: tub shower with chair Laundry: family completes Equipment Owned: Walker- Wheeled, Lift Chair, Grab Bars- Toilet, Grab Bars- Shower, Shower Chair, Hand Held Shower, Commode- Raised, Emergency Response System PRIOR FUNCTIONAL LEVEL Required Assistance, History of Falls Assistance Required With: Cleaning, Laundry, Meals, Medication Management, Stairs, Safety, Self Care, Shopping, Transportation, Finances Pt questionable historian, pt reports IND with ADLS, family completes IALDs. ambulates with wheeled walker, history of falls (unable to recall an approximate amount however), sleeps in adjustable bed. Uses HOB elevated to get out of bed, uses lift chair during the day. States shw walks in the hallway every hour. THERAPY DIAGNOSIS Reduced mobility-other, Muscle Weakness (generalized) TREATMENT INTERVENTIONS Therapeutic Activity (69544), Gait Training (17085), Therapeutic Exercise (75594) Timed Code Treatment (minutes): 40 Skilled Treatment Time (minutes): 40 EXERCISE Exercises Exercise Performed: Ankle Pumps, Heel Slides, SAQ, LAQ, Hip Abduction Ankle Pumps (number of reps): 20 Heel Slides (number of reps): 10 SAQ (number of reps): 10 LAQ (number of reps): 10 Hip Abduction (number of reps): 10 TRAINING AND EDUCATION PROVIDED Bed Mobility, Discharge Planning, Exercise Program, Expected Functional Level, Falls Prevention, Gait Pattern, Reduction of Deviations, Standing Balance THERAPEUTIC SKILLS USED Activity Dosing, Cuing Verbal, Cuing Visual, Physical Assist PLAN PT Frequency: 6 Andrew (more content not included)... Normal [facility] Urinalysis complete panel (U )on 02-04-2024 Bilirubin Ql (U) Negative Normal Negative [facility] Comment on above: Order Comment: Speci men Type: BLOOD SPECIMEN Ordering Facility: [facility] Address: [address] [place] [address] Performed By: #### 1 9123-9, 69734-8 #### [facility] CLIA [id number] [address] [place] [address] [place] Clarity (Unsp spec) Clear Normal Clear [facility] Comment on above: Order Comment: Speci men Type: BLOOD SPECIMEN Ordering Facility: [facility] Address: [address] [place] [address] Performed By: #### 1 9123-9, 14365-1 #### [facility] CLIA [id number] [address] [place] [address] [place] Color (U) Yellow Normal Yellow [facility] Comment on above: Order Comment: Speci men Type: BLOOD SPECIMEN Ordering Facility: [facility] Address: [address] [place] [address] Performed By: #### 1 9123-9, 82840-1 #### [facility] CLIA [id number] [address] [place] [address] [facility] [place] Glucose Test strip (U) [Mass/Vol] Negative Normal Negative [facility] Comment on above: Order Comment: Speci men Type: BLOOD SPECIMEN Ordering Facility: [facility] Address: [address] [place] [address] Performed By: #### 1 9123-9, 08087-5 #### [facility] CLIA [id number] [address] [place] [address] [facility] Hemoglobin Ql (U) Trace Abnormal Negative [facility] Comment on above: Order Comment: Speci men Type: BLOOD SPECIMEN Ordering Facility: [facility] Address: [address] [place] [address] Performed By: #### 1 91239, 49243-3 #### [facility] CLIA [id number] [address] [place] [address] [facility] Ketones Ql (U) Negative Normal Negative [facility] Comment on above: Order Comment: Speci men Type: BLOOD SPECIMEN Ordering Facility: [facility] Address: [address] [place] [address] Performed By: #### 1 9123-06, 14313-5 #### [facility] CLIA [id number] [address] [place] [address] [facility] Leukocyte esterase Test strip Ql (U) Negative Normal Negative [facility] Comment on above: Order Comment: Speci men Type: BLOOD SPECIMEN Ordering Facility: [facility] Address: [address] [place] [address] Performed By: #### 1 9123-06, 63214-2 #### [facility] CLIA [id number] [address] [place] [address] [place] Nitrite Ql (U) Negative Normal Negative [facility] Comment on above: Order Comment: Speci men Type: BLOOD SPECIMEN Ordering Facility: [facility] Address: [address] [place] [address] Performed By: #### 1 9123-9, 87780-5 #### [facility] CLIA [id number] [address] [place] [address] [place] pH (U) 6.5 [pH] Normal 5.0-8.0 [facility] Comment on above: Order Comment: Speci men Type: BLOOD SPECIMEN Ordering Facility: [facility] Address: [address] [place] [address] Performed By: #### 1 9123-9, 02807-8 #### [facility] CLIA [id number] [address] [place] [address] [place] Protein (U) [Mass/Vol] Negative Normal Negative [facility] Comment on above: Order Comment: Speci men Type: BLOOD SPECIMEN Ordering Facility: [facility] Address: [address] [place] [address] Performed By: #### 1 91239, 30997-9 #### [facility] CLIA [id number] [address] [place] [address] [place] RBC LM.HPF (Urine sed) [#/Area] 0-3 /HPF Normal 0-3 /HPF [facility] Comment on above: Order Comment: Speci men Type: BLOOD SPECIMEN Ordering Facility: [facility] Address: [address] [place] [address] Performed By: #### 1 91239, 52727-7 #### [facility] CLIA [id number] [address] [place] [address] [place] Specific gravity (U) [Rel density] 1.010 Normal 1.005-1.030 [facility] Comment on above: Order Comment: Speci men Type: BLOOD SPECIMEN Ordering Facility: [facility] Address: [address] [place] [address] Performed By: #### 1 9123-9, 57538-0 #### [facility] CLIA [id number] [address] [place] [address] [place] Urobilinogen Ql (U) 0.2 EU/dL Normal 0.2-1.0 EU/dL [facility] Comment on above: Order Comment: Speci men Type: BLOOD SPECIMEN Ordering Facility: [facility] Address: [address] [place] [address] Performed By: #### 1 9123-9, 40536-0 #### [facility] CLIA [id number] [address] [place] [address] [facility] WBC LM.HPF (Urine sed) [#/Area] 0-5 /HPF Normal 0-5 /HPF [facility] Comment on above: Order Comment: Speci men Type: BLOOD SPECIMEN Ordering Facility: [facility] Address: [address] [place] [address] Performed By: #### 1 9123-9, 63160-5 #### [facility] CLIA [id number] [address] [place] [address] [facility] NURSING PROGon 02-03-2024 NURSING PROG HNO ID: [id number] Author: FRANCA HARRISON RN Service: Nursing Author Type: Registered Nurse Type: Nursing Progress Note Filed: 02/03/2024 16:47 Note Text: Patient resting quietly in bed. All treatments and procedures were explained. Patient verbalized understanding. No questions or concerns were voiced at this time. Normal [facility] NURSING PROG HNO ID: [id number] Author: FRANCA HARRISON RN Service: Nursing Author Type: Registered Nurse Type: Nursing Progress Note Filed: 02/03/2024 12:05 Note Text: Patient resting quietly in bed. All treatments and procedures were explained. Pt verbalized understanding. Pt denies any pain at this time. Pt very pleasant. Talkative. No questions or concerns were voiced at this time. [facility] NUTRITIONon 02-03-2024 NUTRITION HNO ID: [id number] Author: MENDOZA COREAS RD Service: Nutrition Therapy Author Type: Registered Dietitian Type: Nutrition Filed: 02/03/2024 11:29 Note Text: NUTRITION THERAPY REASSESSMENT NOTE SERVICE DATE: 02/03/2024 SERVICE TIME: 10:18 AM Nutrition Assessment: Recommended Malnutrition Diagnosis: No Malnutrition Identified (02/03/24 1118 : Mendoza Coreas RD) Nutrition Diagnosis: Problem: Increased nutrient needs Related to: Wound healing As evidenced by: Procedure/surgery Estimated kilocalorie needs: 6284-9844 Calorie Calculation Method: Ellsworth-St. Jeor (with activity factor) (adjusted body wt 60.1kg) Estimated protein needs (grams): 60-72 Grams protein determined by: 1.0 - 1.2 g/kg Care Plan: Continue current diet Monitor and Evaluation: Meet greater than 75% of estimated needs;Monitor fluid/electrolyte balance;Monitor labs, I/Os, vital signs, weight Discharge Recommendations: Diet Diet: regular Interval History: 16 day LOS here for Therapy. 100% Regular diet w/o concerns. 78.6kg bedscale today. Edema remains, on Rx Lasix new skin alteration L-heel. Meds AND labs reviewed. BUN/Crea /.15. Recommend VitC Intake History: Nutrition Intake Prior to Admission: Greater than 75% estimated energy needs greater than or equal to 3 months Current Nutrition Intake: Greater than 75% estimated energy needs Current Intake Over time: Greater than or equal to 7 days Diet Orders (From admission, onward) Start Ordered 01/17/24 1430 DIET REGULAR START NOW 01/17/24 1428 Anthropometrics: Height: 160 cm (5' 3) Weight: 83.5 kg (184 lb 1.4 oz) Dosing Weight: 52.2 kg (115 lb) Usual Weight: 77.6 kg (171 lb 1.2 oz) 08/07/2023 Usual Weight Obtained From: Chart Review Body mass index is 32.61 kg/m?. Weight change percentage over time: +7.6% gain Weight Change: Weight gain Physical Exam: Subcutaneous fat loss: No fat loss (02/03/24 1118 : Mendoza Coreas RD) Muscle loss: No muscle loss (02/03/24 1118 : Mendoza Coreas RD) Edema/Ascites: Lower extremities Lower Extremity: Mild 1+ GI Symptoms: None Functional Status: No Change Potential Signs of Inflammation: Acute post-operative MNT Billing: $ Reassessment: 1-15 minutes SIGNATURE: Menodza Coreas RD PATIENT NAME: Jackelyn Bradshaw DATE: February 03, 2024 TIME: 10:19 AM Normal [facility] SOCIAL WORKon 02-03-2024 SOCIAL WORK HNO ID: [id number] Author: KRYSTYNA FOX LSW Service: Social Work Author Type: Musical String Maker Type: Social Work Filed: 02/04/2024 12:38 Note Text: Summary: Family Call SOCIAL WORK PROGRESS NOTE Name: Jackelyn Bradshaw Phoned patient's dtr/MINH Mota. She says she has access to a bed rail, wheelchair, cane and walker. Told her the only other equipment that needs to be in place is a bedside commode. Dtr said she is working on that. SW stated that patient will likely need an ambulance to go home as she cannot do stairs. Tez said she was able to borrow a ramp from [employer] until they have one built. They had [employer] out yesterday and they are working with [facility] to get a campos for the ramp. Family will peanut picker patient upon DC and take her into home with wheelchair. Told Tez that insurance sent a DENC (Detailed Explanation of Non-Coverage) and why they have determined patient no longer needs to be at [facility]. Tez says she will not be in tonight. Will give her DENC when she comes in next. Signature: MICHELA Chanel Date: February 03, 2024 Time: 4:21 PM Normal [facility] SOCIAL WORK HNO ID: [id number] Author: KRYSTYNA FOX LSW Service: Social Work Author Type: Musical String Maker Type: Social Work Filed: 02/03/2024 09:01 Note Text: Summary: Appeal SOCIAL WORK PROGRESS NOTE Name: Jackelyn Bradshaw Patient's records were faxed to Attributor on 02/01 at 1834. Signature: MICHELA Chanel Date: February 03, 2024 Time: 9:00 AM Normal [facility] THERAPY NTon 02-03-2024 THERAPY NT HNO ID: [id number] Author: ELLE HOOVER PT Service: Physical Therapy Author Type: Digital Retoucher Type: Therapy (PT/OT/Speech/Resp) Filed: 02/03/2024 14:37 Note Text: Attestation signed by Elle Hoover, PT at 02/03/2024 2:37 PM I reviewed and agree with the documentation corresponding to this therapy visit. SIGNATURE: Elle Hoover PT DATE: February 03, 2024 TIME: 2:37 PM [facility] Treatment Summary SERVICE DATE: 02/03/2024 SERVICE TIME: 1259 to 1343 ROOM: [place] [address] PT 6 Clicks Score: 17 DISCHARGE RECOMMENDATIONS Home PT Recommended Discharge Disposition Comments: Anticipate need for 24 hour care upon dc due to cognitive limitations, and expected limitations post hip fx. Anticipated Discharge Needs: Family Training, Physical Assist at Home, Supervision at Home, Equipment Recommended Discharge Equipment: To Be Determined GOALS Patient will demonstrate progress with functional mobility to allow safe discharge to home with available support and/or physical assistance. Able to Perform HEP with: Supervision Rolling with: Modified Independent Transfer Supine to/from Sit with: Modified Independent Transfer Sit to/from Stand with: Modified Independent Ambulate with: Stand By Assistance Distance: 50 Device: Wheeled Walker Ambulate Up and Down Steps with: Minimal Assistance Number of Steps: 4 Device: Rail, Cane Rehab Potential: Fair Progress Toward Goals: Progressing slower than expected ASSESSMENT Response to Therapy Interventions: Good Participation in Activities, Low Activity Tolerance, Pain Patient able to ambulate serval short bouts in the room with session however she states that she continues to be fearful of falling and has pain with ambulation. Plan for Next Visit: Gait Training, Exercise Instruction/Handout PRECAUTIONS Weight Bearing Restrictions, Bed/Chair Alarm ORIF L hip Left Lower Extremity Weight Bearing Status: WBAT SUBJECTIVE I think when we're done with this I'm gonna try to take a nap FUNCTIONAL STATUS Bed Mobility Rolling: Stand By Assistance (with use of bed rails) Supine To Sit: Maximal Assistance (increased adductor tone/stiffness causing difficulty coming to edge of bed, use of draw sheet) Sit to Supine: Moderate Assistance (assist BLE) Scooting: Contact Guard Assistance Transfers Sit To Stand: Contact Guard Assistance Stand To Sit: Contact Guard Assistance Bed to Chair Contact Guard Assistance Bed To Chair Transfer Type: Stepping Bed To Chair Transfer Equipment: Gait Belt, Wheeled Walker Gait Contact Guard Assistance Gait Device: Wheeled Walker Gait Distance (feet): 5 x 4 Stairs CURRENT HOSPITAL COURSE Admt to [facility] on 01/11 due to mechanical fall at home resulting in L intertrochanteric hip fracture. s/p ORIF L hip. Relevant Past Medical History: Arthitis, CA, HTN, lymphedema, dementia HOME LIVING Patient Lives With: Family (grandson and his and 1year old child, p-atient's dtr lives nearby) Assistance Available: Part-Time (need to verify with family. Patient poor historian.) Entry To Home: Stairs, With Rail Number Of Stairs Into Home: 4 Number Of Stairs To Bed/Bath: 0 Tub/Shower Type: tub shower with chair Laundry: family completes Equipment Owned: Walker- Wheeled, Lift Chair, Grab Bars- Toilet, Grab Bars- Shower, Shower Chair, Hand Held Shower, Commode- Raised, Emergency Response System PRIOR FUNCTIONAL LEVEL Required Assistance, History of Falls Assistance Required With: Cleaning, Laundry, Meals, Medication Management, Stairs, Safety, Self Care, Shopping, Transportation, Finances Pt questionable historian, pt reports IND with ADLS, family completes IALDs. ambulates with wheeled walker, history of falls (unable to recall an approximate amount however), sleeps in adjustable bed. Uses HOB elevated to get out of bed, uses lift chair during the day. States shw walks in the hallway every hour. THERAPY DIAGNOSIS Reduced mobility-other, Muscle Weakness (generalized) TREATMENT INTERVENTIONS Therapeutic Activity (72616), Gait Training (25134) Timed Code Treatment (minutes): 44 Skilled Treatment Time (minutes): 44 EXERCISE None performed this session TRAINING AND EDUCATION PROVIDED Bed Mobility, Benefits of In-Hospital Mobility, Discharge Planning, Expected Functional Level, Gait Pattern, Reduction of Deviations, Falls Prevention, Home Safety THERAPEUTIC SKILLS USED Activity Dosing, Cuing Verbal, Cuing Visual, Physical Assist PLAN PT Frequency: 6 Times Per Week (3-4 weeks) Treatment Interventions: Strengthening, Functional Mobility Training SIGNATURE: Chase Bartlett PTA PATIENT NAME: Jackelyn Bradshaw DATE: February 03, 2024 TIME: 1:51 PM Normal [facility] THERAPY NT HNO ID: [id number] Author: ISABELLA SANCHEZ, SAMIR/L Service: Occupational Therapy Author Type: Occupational Therapist Type: Therapy (PT/OT/Speech/Resp) Filed: 02/03/2024 12:47 Note Text: Occupational Therapy Care Home Facility Treatment Summary SERVICE DATE: 02/03/2024 SERVICE TIME: 1110 to 1150 ROOM: [place] [address] OT 6 Clicks Score: 19 DISCHARGE RECOMMENDATIONS Home OT (vs discharge to SENIOR CARE/ECF) Recommended Discharge Disposition Comments: Pt's discharge disposition is dependent upon progress made and family ability to provide necessary assistance Anticipated Discharge Needs: Family Training, Physical Assist at Home, Supervision at Home, Equipment Recommended Discharge Equipment: To Be Determined GOALS Patient will demonstrate progress with self-care, cognitive and/or coping needs identified to allow safe discharge to home with available support and/or physical assistance. Grooming with: Set Up Upper Body Bathing with: Set Up Upper Body Dressing with: Set Up Lower Body Bathing with: Minimal Assistance Lower Body Dressing with: Moderate Assistance Toilet Hygiene with: Moderate Assistance Chair Transfer with: Contact Guard Assistance Toilet Transfer with: Contact Guard Assistance Shower Transfer with: Minimal Assistance Tolerate (minutes of functional activity): 45 Functional Activity with: Contact Guard Assistance Progress Toward Goals: Progressing as expected Rehab Potential: Good ASSESSMENT Response to Therapy Interventions: Good Participation in Activities, Low Activity Tolerance, Needs Frequent Redirection or Reinstruction, Requires Additional Time to Complete Activities This patient has improved significantly in her ability to complete functional transfers from chair to BSC and is now at a CGA to minimal assist level; she does need verbal cues for proper technique and moves very slowly in all tasks. Pt participates well in lower body dressing tasks and is knowledgable in use of adaptive equipment, but she is very slow in completion of tasks; family may need to offer increased assistance in order to lower body tasks to be completed in functional amount of time upon discharge. Discussed discharge planning with pt; she states that family will order her a BSC. Instructed pt that a BSC needs to be in place for pt before she returns home; will discuss further with social media developer/family re: equipment set up at home. Family may also benefit from hands on training in how to assist pt with transfers and ADL skills prior to discharge home. Plan for Next Visit: Bed Mobility, Chair/Commode Transfer Training, Energy Conservation, Exercise Instruction/Handout, Grooming Training, Sit to Stand Transfers, Standing Balance, Standing Tolerance, Toileting Instruction PRECAUTIONS Weight Bearing Restrictions, Bed/Chair Alarm ORIF L hip Left Lower Extremity Weight Bearing Status: WBAT SUBJECTIVE Pt stated that her family is going to order her a bedside commode and that they are working on a ramp and have a wheelchair already at home FUNCTIONAL STATUS Activities of Daily Living Assist Level Additional Information Feeding Set Up Grooming Set Up, Additional Information Bathing Upper Body Set Up, Additional Information Bathing Lower Body Additional Information, Minimal Assistance Dressing Upper Body Set Up, Additional Information Dressing Lower Body Moderate Assistance, Additional Information to change Depends and pants using adaptive equipment; verbal cues and minimal assist for use of AE. Pt needs help with pulling pants/briefs up over hips due to tightness of pants. Will need assistance to francisco/doff GRACIA hose at home Toileting Additional Information, Moderate Assistance using BSC; pt able to assist with clothing mgt aspects and hygiene to oliver/posterior areas; will need assistance for thorough hygiene following a BM Instrumental Activities of Daily Living Assist Level Additional Information Meal/Beverage Prep Total Assistance Cleaning Total Assistance Laundry Total Assistance Medication Management with Strategies Total Assistance Mobility Assist Level Additional Information Bed Mobility Rolling: Minimal Assistance Supine To Sit: Minimal Assistance Sit To Supine: Moderate Assistance Sit to Stand Contact Guard Assistance, Additional Information from recliner chair and BSC; verbal cues needed for technique including to lean forward Stand to Sit Contact Guard Assistance cues needed for proper alignment of self to chair/commode; pt improved with recalling hand placement Bed to Chair Contact Guard Assistance, Additional Information Bed To Chair Transfer Type: Stand Pivot Bed To Chair Transfer Equipment: Wheeled Walker, Gait Belt Stand Toilet/Commode Contact Guard Assistance, Additional Information for sit to stand from chair and doing stand pivot to BSC and back to chair. Verbal cues throughout for walker mgt and proper alignment of self to commode (more content not included)... Normal [facility] THERAPY NT HNO ID: [id number] Author: ELLE HOOVER, PT Service: Physical Therapy Author Type: Physical Therapist Type: Therapy (PT/OT/Speech/Resp) Filed: 02/03/2024 12:22 Note Text: Physical Therapy Care Home Facility Treatment Summary SERVICE DATE: 02/03/2024 SERVICE TIME: 0942 to 1017 ROOM: [place] [address] PT 6 Clicks Score: 17 DISCHARGE RECOMMENDATIONS Home PT Recommended Discharge Disposition Comments: Anticipate need for 24 hour care upon dc due to cognitive limitations, and expected limitations post hip fx. Anticipated Discharge Needs: Family Training, Physical Assist at Home, Supervision at Home, Equipment Recommended Discharge Equipment: To Be Determined GOALS Patient will demonstrate progress with functional mobility to allow safe discharge to home with available support and/or physical assistance. Able to Perform HEP with: Supervision Rolling with: Modified Independent Transfer Supine to/from Sit with: Modified Independent Transfer Sit to/from Stand with: Modified Independent Ambulate with: Stand By Assistance Distance: 50 Device: Wheeled Walker Ambulate Up and Down Steps with: Minimal Assistance Number of Steps: 4 Device: Rail, Cane Rehab Potential: Fair Progress Toward Goals: Progressing slower than expected ASSESSMENT Response to Therapy Interventions: Low Activity Tolerance New onset of significant incontinence this date that had not been present during prior sessions. Notified nursing. Discussion with patient regarding need for ramp placement prior to d/c, with patient reporting that the ramp won't get there for at least another week, but we may be able to rent a ramp until the permanent one gets here. She also reports she does not have a bed rail, and reports I don't want Juanis to have to lift me, even though patient requiring max A for supine to sitting this date and min A for sit to stand transfers, and inability to assist with lower body dressing. Appeal in place, however, at this time, patient appears to be unsafe to return to home setting due to extensive need for assistance, and inability to obtain ramp to enter the home. Plan for Next Visit: Gait Training, Exercise Instruction/Handout PRECAUTIONS Weight Bearing Restrictions, Bed/Chair Alarm ORIF L hip Left Lower Extremity Weight Bearing Status: WBAT SUBJECTIVE I'm pretty tired out. - patient requiring increased rest periods this date, and incontinent of bladder such that she requires bed change and outfit change. FUNCTIONAL STATUS Bed Mobility Rolling: Stand By Assistance (with use of bed rails) Supine To Sit: Maximal Assistance (increased adductor tone/stiffness causing difficulty coming to edge of bed, use of draw sheet) Sit to Supine: Moderate Assistance (assist for B LE management into bed) Scooting: Minimal Assistance Transfers Sit To Stand: Minimal Assistance (from 16 bedheight) Stand To Sit: Contact Guard Assistance (cueing for eccentric control to lower into chair) Bed to Chair Contact Guard Assistance, Minimal Assistance Bed To Chair Transfer Type: Stepping Bed To Chair Transfer Equipment: Gait Belt, Wheeled Walker stepping towards chair placed 5' away Gait Contact Guard Assistance Gait Device: Wheeled Walker Gait Distance (feet): 5' Gait Deviations Left Lower Extremity: (extremely slow gait pattern that is shuffling, narrow RIGOBERTO, and non-functional stepping to bedside chair) Stairs CURRENT HOSPITAL COURSE Admt to [facility] on 01/11 due to mechanical fall at home resulting in L intertrochanteric hip fracture. s/p ORIF L hip. Relevant Past Medical History: Arthitis, CA, HTN, lymphedema, dementia HOME LIVING Patient Lives With: Family (grandson and his and 1year old child, p-atient's dtr lives nearby) Assistance Available: Part-Time (need to verify with family. Patient poor historian.) Entry To Home: Stairs, With Rail Number Of Stairs Into Home: 4 Number Of Stairs To Bed/Bath: 0 Tub/Shower Type: tub shower with chair Laundry: family completes Equipment Owned: Walker- Wheeled, Lift Chair, Grab Bars- Toilet, Grab Bars- Shower, Shower Chair, Hand Held Shower, Commode- Raised, Emergency Response System PRIOR FUNCTIONAL LEVEL Required Assistance, History of Falls Assistance Required With: Cleaning, Laundry, Meals, Medication Management, Stairs, Safety, Self Care, Shopping, Transportation, Finances Pt questionable historian, pt reports IND with ADLS, family completes IALDs. ambulates with wheeled walker, history of falls (unable to recall an approximate amount however), sleeps in adjustable bed. Uses HOB elevated to get out of bed, uses lift chair during the day. States shw walks in the hallway every hour. THERAPY DIAGNOSIS Reduced mobility-other, Muscle Weakness (generalized) TREATMENT INTERVENTIONS Therapeutic Activity (44704) Timed Code Treatment (minutes): 35 Skilled Treatment Time (minutes): 35 TRAINING AND (more content not included)... Normal [facility] SOCIAL WORKon 02-02-2024 SOCIAL WORK HNO ID: [id number] Author: KRYSTYNA FOX LSW Service: Social Work Author Type: Musical String Maker Type: Social Work Filed: 02/02/2024 17:11 Note Text: Summary: [facility] SOCIAL WORK PROGRESS NOTE Name: Jackelyn Bradshaw Received [facility] with LCD of 02/03. Phoned patient's daughter/legal guardian to inform. Provided phone number to appeal per daughter's request. [phone]: Faxed [facility] to [facility] with note that daughter/LG had been contacted. Provided name and phone number. Records for [facility] have been printed. Nurse to fax them once we hear from [facility] and are given Case Control number. Signature: MICHELA Chanel Date: February 02, 2024 Time: 4:28 PM [facility] SOCIAL WORK HNO ID: [id number] Author: KRYSTYNA FOX LSW Service: Social Work Author Type: Musical String Maker Type: Social Work Filed: 02/03/2024 14:40 Note Text: Summary: Team Rounds MULTIDISCIPLINARY ROUNDS SERVICE DATE: 02/03/2024 ADMISSION DATE: 01/17/2024 SERVICE TIME: 12:30 PM ANTICIPATED D/C DATE: 3-4 wks Problem List: ACTIVE PROBLEM LIST Htn (Hypertension) Impaired Ambulation Pelvic Joint Pain, Left Cancer of Breast, Intraductal, Left Generalized Weakness Fall Tremors of Nervous System Declining Functional Status Obesity, Class I, Bmi 30-34.9 Aftercare Status Post Hip Surgery Dementia (Hcc) Anemia Deep Tissue Injury Attendees Present at Rounds: CM, DRYING ROOM OPERATOR, NM, OT, PT, R.D, SW Needs Discussed on Rounds: Discharge Needs Family Concerns Mobility Plan of Care Anticipated Discharge Disposition: Home with Home Health Last Vitals: BP 148/66 Pulse 74 Temp (Src) 98.1 (Oral) Resp 16 Ht 5' 3 (1.60m) Wt 184 lb 1.4 oz (83.5kg) SpO2 97% BMI 32.62 kg/(m2). O2 Therapy: Room Air SW: Plan - return home with [facility]. Dtr/ has secured one aide to help. Concerned that grdtr will have too much caring for patient and grdtr's baby.Patient's last covered day is 02/03. LG is appealing. To call dtr re: BSC, bed rail or hospital bed. PT: Unable to get ramp installed into home. Unable to do stairs. Wheelchair will be required. Only walking 5ft distances, very slowly. OT: Family has not obtained the BSC at this point. Will need this prior to bringing her home. Incontinence has increased in the last few days. Patient will need BSC. Has not yet been obtained. Nursing: DOCUMENTED BY: MICHELA Chanel PATIENT NAME: Jackelyn Bradshaw DATE: February 02, 2024 TIME: 3:11 PM CSN: [id number] [facility] SOCIAL WORK HNO ID: [id number] Author: KRYSTYNA FOX LSW Service: Social Work Author Type: Musical String Maker Type: Social Work Filed: 02/02/2024 14:59 Note Text: Summary: [facility] SOCIAL WORK PROGRESS NOTE Name: Jackelyn Bradshaw Patient says she is tired. Had a work out today with therapy. Said she walked farther than she has so far. Patient stating her great panfilo Toro is having his 1 yr old b-day republican on 02/05. Patient states she may be able to be there. Knows insurance update is today. Told patient that [facility] is agreeable to provide home therapy. Signature: MICHELA Chanel Date: February 02, 2024 Time: 2:44 PM Normal [facility] THERAPY NTon 02-02-2024 THERAPY NT HNO ID: [id number] Author: MICKIE RUTLEDGE, PT, DPT Service: Physical Therapy Author Type: Physical Therapist Type: Therapy (PT/OT/Speech/Resp) Filed: 02/02/2024 14:04 Note Text: Physical Therapy Care Home Facility Treatment Summary SERVICE DATE: 02/02/2024 SERVICE TIME: 1319 to 1357 ROOM: [place] [address] PT 6 Clicks Score: 17 DISCHARGE RECOMMENDATIONS Home PT Recommended Discharge Disposition Comments: Anticipate need for 24 hour care upon dc due to cognitive limitations, and expected limitations post hip fx. Anticipated Discharge Needs: Family Training, Physical Assist at Home, Supervision at Home, Equipment Recommended Discharge Equipment: To Be Determined GOALS Patient will demonstrate progress with functional mobility to allow safe discharge to home with available support and/or physical assistance. Able to Perform HEP with: Supervision Rolling with: Modified Independent Transfer Supine to/from Sit with: Modified Independent Transfer Sit to/from Stand with: Modified Independent Ambulate with: Stand By Assistance Distance: 50 Device: Wheeled Walker Ambulate Up and Down Steps with: Minimal Assistance Number of Steps: 4 Device: Rail, Cane Rehab Potential: Good Progress Toward Goals: Progressing as expected ASSESSMENT Response to Therapy Interventions: Good Participation in Activities, Cognitive Deficits, Notable Progression with Functional Activities/Skills Patient demonstrated good participation in new therapeutic activities this date with ability to use Nustep bike and complete standing hip flexion with L LE. HAnd off to nursing regarding patient requesting pain medication at end of session. Plan for Next Visit: Gait Training, Fall Prevention, Standing Balance PRECAUTIONS Weight Bearing Restrictions, Bed/Chair Alarm ORIF L hip Left Lower Extremity Weight Bearing Status: WBAT SUBJECTIVE Patient laying in bed upon entering room, agreeable to therapy session. FUNCTIONAL STATUS most recent performance Bed Mobility Rolling: Stand By Assistance (with use of bed rails) Supine To Sit: Minimal Assistance Sit to Supine: Moderate Assistance (assist for B LE management into bed) Scooting: Contact Guard Assistance Transfers Sit To Stand: Contact Guard Assistance cues for sequencing and UE placement Stand To Sit: Contact Guard Assistance Bed to Chair Contact Guard Assistance Bed To Chair Transfer Type: Stand Pivot Bed To Chair Transfer Equipment: Wheeled Walker stand pivot to L with multiple steps from bed to w/c (completed transfer to and from nustep from w/c with FWW with min A From therapist, slow completion however no significant physical assist.) Gait Contact Guard Assistance Gait Device: Wheeled Walker Gait Distance (feet): 5' Gait Deviations Left Lower Extremity: Stance time decreased, Weight bearing decreased Stairs CURRENT HOSPITAL COURSE Admt to [facility] on 01/11 due to mechanical fall at home resulting in L intertrochanteric hip fracture. s/p ORIF L hip. Relevant Past Medical History: Arthitis, CA, HTN, lymphedema, dementia HOME LIVING Patient Lives With: Family (grandson and his and 1year old child, p-atient's dtr lives nearby) Assistance Available: Part-Time (need to verify with family. Patient poor historian.) Entry To Home: Stairs, With Rail Number Of Stairs Into Home: 4 Number Of Stairs To Bed/Bath: 0 Tub/Shower Type: tub shower with chair Laundry: family completes Equipment Owned: Walker- Wheeled, Lift Chair, Grab Bars- Toilet, Grab Bars- Shower, Shower Chair, Hand Held Shower, Commode- Raised, Emergency Response System PRIOR FUNCTIONAL LEVEL Required Assistance, History of Falls Assistance Required With: Cleaning, Laundry, Meals, Medication Management, Stairs, Safety, Self Care, Shopping, Transportation, Finances Pt questionable historian, pt reports IND with ADLS, family completes IALDs. ambulates with wheeled walker, history of falls (unable to recall an approximate amount however), sleeps in adjustable bed. Uses HOB elevated to get out of bed, uses lift chair during the day. States shw walks in the hallway every hour. THERAPY DIAGNOSIS Reduced mobility-other, Muscle Weakness (generalized) TREATMENT INTERVENTIONS Therapeutic Activity (83069), Gait Training (53726) Timed Code Treatment (minutes): 38 Skilled Treatment Time (minutes): 38 EXERCISE Exercises Exercise: patient completed standing and tapping on 6 step with L LE, B UE support, completed for hip flexion strengthening. patient unable to fully tap on top of step due to weakness however able to tap front/top of step. completed 1x10 and 1x5 with CGA-min A from therapist. patient completed propelling Nustep pedal bike with B UE/LE on level 1 for 5 minutes for LE strengthening and endurance and to improve L LE ROM. TRAINING AND EDUCATION PROVIDED Assistive Device Use, Equipment, Energy Conservation, Standing Maribel (more content not included)... Normal [facility] THERAPY NT HNO ID: [id number] Author: BI GARCIA OTR/Lashae Service: ? Author Type: Occupational Therapist Type: Therapy (PT/OT/Speech/Resp) Filed: 02/02/2024 10:51 Note Text: Occupational Therapy Care Home Facility Treatment Summary SERVICE DATE: 02/02/2024 SERVICE TIME: 0947 to 1032 ROOM: [place] [address] OT 6 Clicks Score: 20 DISCHARGE RECOMMENDATIONS Home OT (vs discharge to S[facility]IOR [facility]ARE/ECF) Recommended Discharge Disposition Comments: Pt's discharge disposition is dependent upon progress made and family ability to provide necessary assistance Anticipated Discharge Needs: Family Training, Physical Assist at Home, Supervision at Home, Equipment Recommended Discharge Equipment: To Be Determined GOALS Patient will demonstrate progress with self-care, cognitive and/or coping needs identified to allow safe discharge to home with available support and/or physical assistance. Grooming with: Set Up Upper Body Bathing with: Set Up Upper Body Dressing with: Set Up Lower Body Bathing with: Minimal Assistance Lower Body Dressing with: Moderate Assistance Toilet Hygiene with: Moderate Assistance Chair Transfer with: Contact Guard Assistance Toilet Transfer with: Contact Guard Assistance Shower Transfer with: Minimal Assistance Tolerate (minutes of functional activity): 45 Functional Activity with: Contact Guard Assistance Progress Toward Goals: Progressing slower than expected Rehab Potential: Good ASSESSMENT Response to Therapy Interventions: Good Participation in Activities, Low Activity Tolerance, Requires Additional Time to Complete Activities Pt participated in UE HEP seated in recliner. Pt challenged to sit upright and unsupported in recliner throughout participation in exercises to promote core strengthening for increased sitting tolerance / balance. Pt required rest breaks and demo difficulty achieving upright unsupported position. Pt demo improved fxl ambulation to / from bathroom. Min A required for STS's this date. Pt would benefit from continued OT services to further address skill deficits for increased safety and (I) prior to d/c. Plan for Next Visit: Bed Mobility, Chair/Commode Transfer Training, Dressing Training, Equipment Needed (specify), Exercise Instruction/Handout, Grooming Training, Sitting Balance, Sitting Tolerance, Standing Balance, Standing Tolerance, Toileting Instruction PRECAUTIONS Weight Bearing Restrictions, Bed/Chair Alarm ORIF L hip Left Lower Extremity Weight Bearing Status: WBAT SUBJECTIVE I feel better than I have been FUNCTIONAL STATUS Activities of Daily Living Assist Level Additional Information Feeding Set Up Grooming Set Up, Additional Information Bathing Upper Body Set Up, Additional Information Bathing Lower Body Additional Information, Minimal Assistance Dressing Upper Body Set Up, Additional Information Dressing Lower Body Minimal Assistance Toileting Moderate Assistance Instrumental Activities of Daily Living Assist Level Additional Information Meal/Beverage Prep Total Assistance Cleaning Total Assistance Laundry Total Assistance Medication Management with Strategies Total Assistance Mobility Assist Level Additional Information Bed Mobility Rolling: Minimal Assistance Supine To Sit: Minimal Assistance Sit To Supine: Moderate Assistance assist for managing BLE's into bed Sit to Stand Minimal Assistance from recliner and from commode w/o riser or BSC Stand to Sit Contact Guard Assistance Bed to Chair Minimal Assistance Bed To Chair Transfer Type: Stepping Bed To Chair Transfer Equipment: Wheeled Walker Toilet/Commode Minimal Assistance for STS, no BSC over toilet Shower Functional Mobility Contact Guard Assistance Functional Mobility Device: Wheeled Walker Slow movements throughout transitions CURRENT HOSPITAL COURSE Admt to [facility] on 01/11 due to mechanical fall at home resulting in L intertrochanteric hip fracture. s/p ORIF L hip. Relevant Past Medical History: Arthitis, CA, HTN, lymphedema, dementia HOME LIVING Patient Lives With: Family (grandson and his and 1year old child, peter's dtr lives nearby) Assistance Available: Part-Time (need to verify with family. Patient poor historian.) Entry To Home: Stairs, With Rail Number Of Stairs Into Home: 4 Number Of Stairs To Bed/Bath: 0 Tub/Shower Type: tub shower with chair Laundry: family completes Equipment Owned: Walker- Wheeled, Lift Chair, Grab Bars- Toilet, Grab Bars- Shower, Shower Chair, Hand Held Shower, Commode- Raised, Emergency Response System PRIOR FUNCTIONAL LEVEL Required Assistance, History of Falls Assistance Required With: Cleaning, Laundry, Meals, Medication Management, Stairs, Safety, Self Care, Shopping, Transportation, Finances Pt questionable historian, pt reports IND with ADLS, family completes IALDs. ambulates with wheeled walker, history of falls (unable to recall an approximate amount h (more content not included)... Normal [facility] THERAPY NT HNO ID: [id number] Author: MICKIE RUTLEDGE, PT, DPT Service: Physical Therapy Author Type: Physical Therapist Type: Therapy (PT/OT/Speech/Resp) Filed: 02/02/2024 09:28 Note Text: Physical Therapy Care Home Facility Treatment Summary SERVICE DATE: 02/02/2024 SERVICE TIME: 840 to 922 ROOM: [place] [address] PT 6 Clicks Score: 17 DISCHARGE RECOMMENDATIONS Home PT Recommended Discharge Disposition Comments: Anticipate need for 24 hour care upon dc due to cognitive limitations, and expected limitations post hip fx. Anticipated Discharge Needs: Family Training, Physical Assist at Home, Supervision at Home, Equipment Recommended Discharge Equipment: To Be Determined GOALS Patient will demonstrate progress with functional mobility to allow safe discharge to home with available support and/or physical assistance. Able to Perform HEP with: Supervision Rolling with: Modified Independent Transfer Supine to/from Sit with: Modified Independent Transfer Sit to/from Stand with: Modified Independent Ambulate with: Stand By Assistance Distance: 50 Device: Wheeled Walker Ambulate Up and Down Steps with: Minimal Assistance Number of Steps: 4 Device: Rail, Cane Rehab Potential: Good Progress Toward Goals: Progressing as expected ASSESSMENT Response to Therapy Interventions: Good Participation in Activities, Improved Tolerance for Activity, Pain Patient demonstrated improved gait distance this session with improved overall tolerance to upright activity. Patient limited by endurance and strength deficits. Plan for Next Visit: Gait Training, Fall Prevention, Standing Balance PRECAUTIONS Weight Bearing Restrictions, Bed/Chair Alarm ORIF L hip Left Lower Extremity Weight Bearing Status: WBAT SUBJECTIVE Patient laying in bed upon entering room, agreeable to therapy session. FUNCTIONAL STATUS most recent performance Bed Mobility Rolling: Stand By Assistance (with use of bed rails) Supine To Sit: Minimal Assistance, Additional Information assist for management of trunk to com eot upright sitting, patient able to manage LE off bed without assist. Sit to Supine: Moderate Assistance (assist BLE) Scooting: Contact Guard Assistance Transfers Sit To Stand: Contact Guard Assistance Stand To Sit: Contact Guard Assistance Bed to Chair Contact Guard Assistance Bed To Chair Transfer Type: Stepping Bed To Chair Transfer Equipment: Wheeled Walker Gait Contact Guard Assistance Gait Device: Wheeled Walker General Deviations/Observation s: Robyn decreased, Antalgic gait, Non-functional gait speed (antalgic gait with incresaed Bilateral stance time, decreased stance on L LE due to pain, distance limited by pain/fatigue) Gait Distance (feet): 8x2 Gait Deviations Left Lower Extremity: Stance time decreased, Weight bearing decreased Stairs CURRENT HOSPITAL COURSE Admt to [facility] on 01/11 due to mechanical fall at home resulting in L intertrochanteric hip fracture. s/p ORIF L hip. Relevant Past Medical History: Arthitis, CA, HTN, lymphedema, dementia HOME LIVING Patient Lives With: Family (grandson and his and 1year old child, p-atient's dtr lives nearby) Assistance Available: Part-Time (need to verify with family. Patient poor historian.) Entry To Home: Stairs, With Rail Number Of Stairs Into Home: 4 Number Of Stairs To Bed/Bath: 0 Tub/Shower Type: tub shower with chair Laundry: family completes Equipment Owned: Walker- Wheeled, Lift Chair, Grab Bars- Toilet, Grab Bars- Shower, Shower Chair, Hand Held Shower, Commode- Raised, Emergency Response System PRIOR FUNCTIONAL LEVEL Required Assistance, History of Falls Assistance Required With: Cleaning, Laundry, Meals, Medication Management, Stairs, Safety, Self Care, Shopping, Transportation, Finances Pt questionable historian, pt reports IND with ADLS, family completes IALDs. ambulates with wheeled walker, history of falls (unable to recall an approximate amount however), sleeps in adjustable bed. Uses HOB elevated to get out of bed, uses lift chair during the day. States shw walks in the hallway every hour. THERAPY DIAGNOSIS Reduced mobility-other, Muscle Weakness (generalized) TREATMENT INTERVENTIONS Therapeutic Exercise (22777), Gait Training (43091), Therapeutic Activity (75925) Timed Code Treatment (minutes): 42 Skilled Treatment Time (minutes): 42 EXERCISE Exercises Ankle Pumps (number of reps): 20 LAQ (number of reps): 1x10 B LE Exercise: seated marching 1x10 B LE, hip adduction pillow squeeze 1x10 B LE TRAINING AND EDUCATION PROVIDED Assistive Device Use, Bed Mobility, Equipment, Exercise Program, Pre-gait Activities THERAPEUTIC SKILLS USED Activity Dosing, Bed in Chair Position, Cuing Verbal, Physical Assist PLAN PT Frequency: 6 Times Per Week (3-4 weeks) Treatment Interventions: Strengthening, Functional Mobility Training SIGNATURE: Mickie Rutledge, PT, DPT PA (more content not included)... Normal [facility] Basic metabolic 2000 panelon 02-01-2024 Anion gap [Moles/Vol] 7 mmol/L Low 9-18 [facility] Comment on above: Order Comment: Speci men Type: BLOOD SPECIMEN Ordering Facility: [facility] Address: [address] [place] [address] Performed By: #### 1 9123-9, 32415-6 #### [facility] CLIA [id number] [address] [place] [address] [place] Calcium [Mass/Vol] 8.3 mg/dL Low 8.5-10.2 [facility] Comment on above: Order Comment: Speci men Type: BLOOD SPECIMEN Ordering Facility: [facility] Address: [address] [place] [address] Performed By: #### 1 9123-9, 34745-1 #### [facility] CLIA [id number] [address] [place] [address] [place] Chloride [Moles/Vol] 107 mmol/L High 97-105 [facility] Comment on above: Order Comment: Speci men Type: BLOOD SPECIMEN Ordering Facility: [facility] Address: [address] [place] [address] Performed By: #### 1 9123-9, 38703-6 #### [facility] CLIA [id number] [address] [place] [address] [place] CO2 [Moles/Vol] 28 mmol/L Normal 22-30 [facility] Comment on above: Order Comment: Speci terrence Type: BLOOD SPECIMEN Ordering Facility: [facility] Address: [address] [place] [address] Performed By: #### 1 91239, 98651-8 #### [facility] CLIA [id number] [address] [place] [address] [place] Creatinine [Mass/Vol] 1.15 mg/dL High 0.58-0.96 [facility] Comment on above: Order Comment: Hilary ocampo Type: BLOOD SPECIMEN Ordering Facility: [facility] Address: [address] [place] [address] Performed By: #### 1 91239, 12938-1 #### [facility] CLIA [id number] [address] [place] [address] Creatinine and Glomerular filtration rate.predicted panel (S/P/Bld) 47 mL/min/1.73m??? Low >=60 [facility] Comment on above: Order Comment: Hilary ocampo Type: BLOOD SPECIMEN Ordering Facility: [facility] Address: [address] [place] [address] Result Comment: Patience mated Glomerular Filtration Rate (eGFR) is calculated using the 2020 CKD-EPI creatinine equation. This equation utilizes serum creatinine, sex, and age as parameters. The creatinine assay has traceable calibration to isotope dilution-mass spectrometry. Refer to KDIGO guidelines for clinical interpretation. In patients with unstable renal function, e.g. those with acute kidney injury, the eGFR may not accurately reflect actual GFR. Performed By: #### 1 9123-9, 85211-9 #### [facility] CLIA [id number] [address] [place] [address] [place] Glucose [Mass/Vol] 99 mg/dL Normal 74-99 [facility] Comment on above: Order Comment: Hilary ocampo Type: BLOOD SPECIMEN Ordering Facility: [facility] Address: [address] [place] [address] Result Comment: The [place] Diabetes Association (ADA) provides guidance for cutoff values for fasting glucose and random glucose. The ADA defines fasting as no caloric intake for at least 8 hours. Fasting plasma glucose results between 100 to 125 mg/dL indicate increased risk for diabetes (prediabetes). Fasting plasma glucose results greater than or equal to 126 mg/dL meet the criteria for diagnosis of diabetes. In the absence of unequivocal hyperglycemia, results should be confirmed by repeat testing. In a patient with classic symptoms of hyperglycemia or hyperglycemic crisis, random plasma glucose results greater than or equal to 200 mg/dL meet the criteria for diagnosis of diabetes. Reference: Standards of Medical Care in Diabetes 2016, [place] Diabetes Association. Diabetes Care. 2016.39(Suppl 1). Performed By: #### 1 9123-9, 91179-6 #### [facility] CLIA [id number] [address] [place] [address] [place] Potassium [Moles/Vol] 4.6 mmol/L Normal 3.7-5.1 [facility] Comment on above: Order Comment: Hilary ocampo Type: BLOOD SPECIMEN Ordering Facility: [facility] Address: [address] [place] [address] Performed By: #### 1 9123-9, 97223-0 #### [facility] CLIA [id number] [address] [place] [address] [place] Sodium [Moles/Vol] 142 mmol/L Normal 136-144 [facility] Comment on above: Order Comment: Hilary ocampo Type: BLOOD SPECIMEN Ordering Facility: [facility] Address: [address] [place] [address] Performed By: #### 1 9123-9, 22832-6 #### [facility] CLIA [id number] [address] [place] [address] [place] Urea nitrogen [Mass/Vol] 26 mg/dL High 7-21 [facility] Comment on above: Order Comment: Speci men Type: BLOOD SPECIMEN Ordering Facility: [facility] Address: [address] [place] [address] Performed By: #### 1 9123-9, 59813-8 #### [facility] CLIA [id number] [address] [place] [address] [place] [facility] CBC panel Auto (Bld)on 01-31 Erythrocyte distribution width (RBC) [Ratio] 14.5 % Normal 11.5-15.0 [facility] Comment on above: Order Comment: Speci men Type: BLOOD SPECIMENOrdering Facility: [facility] Address: [address] [place] [address] Performed By: #### 5 8410-2 ####[facility]IA [id number] [place] [address] [place] Hematocrit (Bld) [Volume fraction] 27.5 % Low 36.0-46.0 [facility] Comment on above: Order Comment: Speci men Type: BLOOD SPECIMENOrdering Facility: [facility] Address: [address] [place] [address] Performed By: #### 5 8410-2 ####[facility] [id number] [place] [address] [place] Hemoglobin (Bld) [Mass/Vol] 8.5 g/dL Low 11.5-15.5 [facility] Comment on above: Order Comment: Speci men Type: BLOOD SPECIMENOrdering Facility: [facility] Address: [address] [place] [address] Performed By: #### 5 8410-2 ####[facility] LABCLIA [id number] [place] [address] [place] MCH (RBC) [Entitic mass] 32.2 pg Normal 26.0-34.0 [facility] Comment on above: Order Comment: Speci men Type: BLOOD SPECIMENOrdering Facility: [facility] Address: [address] [place] [address] Performed By: #### 5 8410-2 ####[facility]IA [id number] [place] [address] [place] [facility] MCHC (RBC) [Mass/Vol] 30.9 g/dL Normal 30.5-36.0 [facility] Comment on above: Order Comment: Speci men Type: BLOOD SPECIMENOrdering Facility: [facility] Address: [address] [place] [address] Performed By: #### 5 8410-2 ####[facility] LABCLIA [id number] [place] [address] [facility] MCV (RBC) [Entitic vol] 104.2 fL High 80.0-100.0 [facility] Comment on above: Order Comment: Speci men Type: BLOOD SPECIMENOrdering Facility: [facility] Address: [address] [place] [address] Performed By: #### 5 8410-2 ####[facility] LABCLIA [id number] [place] [address] [place] [facility] Platelet mean volume (Bld) [Entitic vol] 9.8 fL Normal 9.0-12.7 [facility] Comment on above: Order Comment: Speci men Type: BLOOD SPECIMENOrdering Facility: [facility] Address: [address] [place] [address] Performed By: #### 5 8410-2 ####[facility] LABCLIA [id number] [place] [address] [facility] Platelets (Bld) [#/Vol] 240 10*3/uL Normal 150-400 [facility] Comment on above: Order Comment: Speci men Type: BLOOD SPECIMENOrdering Facility: [facility] Address: [address] [place] [address] Performed By: #### 5 8410-2 ####[facility] LABCLIA [id number] [place] [address] [place] RBC (Bld) [#/Vol] 2.64 10*6/uL Low 3.90-5.20 [facility] Comment on above: Order Comment: Speci men Type: BLOOD SPECIMENOrdering Facility: [facility] Address: [address] [place] [address] Performed By: #### 5 8410-2 ####[facility] LABCLIA [id number] [place] [address] [facility] WBC (Bld) [#/Vol] 6.01 10*3/uL Normal 3.70-11.00 [facility] Comment on above: Order Comment: Speci men Type: BLOOD SPECIMENOrdering Facility: [facility] Address: [address] [place] [address] Performed By: #### 5 8410-2 ####[facility] LABCLIA [id number] [place] [address] [facility] Magnesium SerPl-mCncon 01-31 Magnesium [Mass/Vol] 2.2 mg/dL Normal 1.7-2.3 [facility] Comment on above: Order Comment: Speci men Type: BLOOD SPECIMEN Ordering Facility: [facility] Address: [address] [place] [address] Performed By: #### 1 9123-9, 02160-0 #### [facility] CLIA [id number] [address] [place] [address] [facility] [place] NUTRITIONon 02-01-2024 NUTRITION HNO ID: [id number] Author: MENDOZA COREAS RD Service: Nutrition Therapy Author Type: Registered Dietitian Type: Nutrition Filed: 02/01/2024 13:35 Note Text: NUTRITION THERAPY REASSESSMENT NOTE SERVICE DATE: 02/01/2024 SERVICE TIME: 13:29 PM Nutrition Assessment: Recommended Malnutrition Diagnosis: Unable to Identify Malnutrition at this time (01/18/24 0916 : Mendoza Coreas RD) Nutrition Diagnosis: Problem: Increased nutrient needs Related to: Wound healing As evidenced by: Procedure/surgery Estimated kilocalorie needs: 3175-8896 Calorie Calculation Method: [place] (with activity factor) (adjusted body wt 60.1kg) Estimated protein needs (grams): 60-72 Grams protein determined by: 1.0 - 1.2 g/kg Care Plan: Continue current diet Monitor and Evaluation: Meet greater than 75% of estimated needs;Monitor fluid/electrolyte balance;Monitor labs, I/Os, vital signs, weight Discharge Recommendations: Diet Diet: regular Interval History: 14 day LOS, here for Therapy. Eating 100% meals per Chart. Meds AND Labs reviewed, N.O. Lasix. Bun/Cera remain elevated. No new wt. Intake History: Nutrition Intake Prior to Admission: Greater than 75% estimated energy needs greater than or equal to 3 months Current Nutrition Intake: Greater than 75% estimated energy needs Current Intake Over time: Greater than or equal to 7 days Diet Orders (From admission, onward) Start Ordered 01/17/24 1430 DIET REGULAR START NOW 01/17/24 1428 Anthropometrics: Height: 160 cm (5' 3) Weight: 83.5 kg (184 lb 1.4 oz) Dosing Weight: 52.2 kg (115 lb) Usual Weight: 77.6 kg (171 lb 1.2 oz) 08/07/2023 Usual Weight Obtained From: Chart Review Body mass index is 32.61 kg/m?. Weight change percentage over time: +7.6% gain Weight Change: Weight gain Physical Exam: Reason NFPE not performed: Unable to participate Edema/Ascites: Lower extremities Lower Extremity: Moderate 2+ Functional Status: Unable to assess Potential Signs of Inflammation: Acute post-operative MNT Billing: $ Reassessment: 1-15 minutes SIGNATURE: Mendoza Coreas RD PATIENT NAME: Jackelyn Bradshaw DATE: February 01, 2024 TIME: 1:29 PM [facility] SOCIAL WORKon 02-01-2024 SOCIAL WORK HNO ID: [id number] Author: KRYSTYNA FOX LSW Service: Social Work Author Type: Musical String Maker Type: Social Work Filed: 02/01/2024 11:11 Note Text: Summary: Family Contact SOCIAL WORK PROGRESS NOTE Name: Jackelyn Bradshaw Patient's daughter Tez in to talk with [employer]. She is very concerned that Juanis will not be able to provide 27/04 care as she has her baby to care for. Tez said even if she goes in the evenings, she doesn't feel that the two of them would be enough. We discussed [facility], ECF, hiring help for home. Tez said patient has limited finances - could maybe pay for 1 month of SENIOR CARE. Told her of one SENIOR CARE that is about half the cost. Tez did think of a couple of ladies in the neighborhood who may be able to help. They help with other families. She is going to call them to check. Tez thought 02/01 was patient's last day at [facility]. [facility] explained that an insurance update is due that day and she will have at least 3 days notice before DC once we hear from insurance. Gave her info on [employer], and ramps. Signature: MICHELA Chanel Date: February 01, 2024 Time: 11:06 AM Normal [facility] THERAPY NTon 02-01-2024 THERAPY NT HNO ID: [id number] Author: LETICIA WALTERS PT Service: Physical Therapy Author Type: Digital Retoucher Type: Therapy (PT/OT/Speech/Resp) Filed: 02/01/2024 17:10 Note Text: Attestation signed by Leticia Walters, PT at 02/01/2024 5:10 PM I reviewed and agree with the documentation corresponding to this therapy visit. SIGNATURE: Leticia Walters, PT DATE: February 01, 2024 TIME: 5:10 PM Physical Therapy Care Home Facility Treatment Summary SERVICE DATE: 02/01/2024 SERVICE TIME: 1259 to 1339 ROOM: [place] [address] PT 6 Clicks Score: 17 DISCHARGE RECOMMENDATIONS Home PT Recommended Discharge Disposition Comments: Anticipate need for 24 hour care upon dc due to cognitive limitations, and expected limitations post hip fx. Anticipated Discharge Needs: Family Training, Physical Assist at Home, Supervision at Home, Equipment Recommended Discharge Equipment: To Be Determined GOALS Patient will demonstrate progress with functional mobility to allow safe discharge to home with available support and/or physical assistance. Able to Perform HEP with: Supervision Rolling with: Modified Independent Transfer Supine to/from Sit with: Modified Independent Transfer Sit to/from Stand with: Modified Independent Ambulate with: Stand By Assistance Distance: 50 Device: Wheeled Walker Ambulate Up and Down Steps with: Minimal Assistance Number of Steps: 4 Device: Rail, Cane Rehab Potential: Good Progress Toward Goals: Progressing as expected ASSESSMENT Response to Therapy Interventions: Good Participation in Activities Patient demonstatrates some improvement with foot clearence however she still is only able to take a few steps due to pain. Plan for Next Visit: Gait Training, Standing Tolerance PRECAUTIONS Weight Bearing Restrictions, Bed/Chair Alarm ORIF L hip Left Lower Extremity Weight Bearing Status: WBAT SUBJECTIVE I had Pat ealier FUNCTIONAL STATUS Bed Mobility Rolling: Minimal Assistance Supine To Sit: Minimal Assistance (ocassional asssit needed with LEs) Sit to Supine: Moderate Assistance (assist BLE) Scooting: Contact Guard Assistance Transfers Sit To Stand: Contact Guard Assistance Stand To Sit: Contact Guard Assistance Bed to Chair Contact Guard Assistance Bed To Chair Transfer Type: Stepping Bed To Chair Transfer Equipment: Gait Belt, Wheeled Walker Gait Contact Guard Assistance Gait Device: Wheeled Walker General Deviations/Observation s: Robyn decreased, Non-functional gait speed Gait Distance (feet): 5 Stairs CURRENT HOSPITAL COURSE Admt to [facility] on 01/11 due to mechanical fall at home resulting in L intertrochanteric hip fracture. s/p ORIF L hip. Relevant Past Medical History: Arthitis, CA, HTN, lymphedema, dementia HOME LIVING Patient Lives With: Family (grandson and his and 1year old child, p-atient's dtr lives nearby) Assistance Available: Part-Time (need to verify with family. Patient poor historian.) Entry To Home: Stairs, With Rail Number Of Stairs Into Home: 4 Number Of Stairs To Bed/Bath: 0 Tub/Shower Type: tub shower with chair Laundry: family completes Equipment Owned: Walker- Wheeled, Lift Chair, Grab Bars- Toilet, Grab Bars- Shower, Shower Chair, Hand Held Shower, Commode- Raised, Emergency Response System PRIOR FUNCTIONAL LEVEL Required Assistance, History of Falls Assistance Required With: Cleaning, Laundry, Meals, Medication Management, Stairs, Safety, Self Care, Shopping, Transportation, Finances Pt questionable historian, pt reports IND with ADLS, family completes IALDs. ambulates with wheeled walker, history of falls (unable to recall an approximate amount however), sleeps in adjustable bed. Uses HOB elevated to get out of bed, uses lift chair during the day. States shw walks in the hallway every hour. THERAPY DIAGNOSIS Reduced mobility-other, Muscle Weakness (generalized) TREATMENT INTERVENTIONS Therapeutic Exercise (36628), Gait Training (11281) Timed Code Treatment (minutes): 40 Skilled Treatment Time (minutes): 40 EXERCISE Exercises Exercise Performed: Ankle Pumps, Quad Sets, Glut Sets, Heel Slides, SAQ, LAQ, Hip Abduction Ankle Pumps (number of reps): 20 Quad Sets (number of reps): 10 Glut Sets (number of reps): 20 Heel Slides (number of reps): 10 SAQ (number of reps): 10 LAQ (number of reps): 10 Hip Abduction (number of reps): 10 Exercise: seated hip chops 5 x 2 right <=> left each , standing weight shift into left 5 x 2 , standing statically with ue support on wheeled walker 1 min x 2 with 2 min rest break in between stands TRAINING AND EDUCATION PROVIDED Exercise Program, Expected Functional Level, Falls Prevention, Gait Pattern, Reduction of Deviations, Bed Mobility THERAPEU (more content not included)... Normal [facility] THERAPY NT HNO ID: [id number] Author: LETICIA WALTERS PT Service: Physical Therapy Author Type: Digital Retoucher Type: Therapy (PT/OT/Speech/Resp) Filed: 02/01/2024 17:05 Note Text: Attestation signed by Leticia Walters PT at 02/01/2024 5:05 PM I reviewed and agree with the documentation corresponding to this therapy visit. SIGNATURE: Leticia Walters PT DATE: February 01, 2024 TIME: 5:05 PM Physical Therapy Care Home Facility Treatment SERVICE DATE: 02/01/2024 SERVICE TIME: 1115 to 1142 ROOM: [place] [address] Recommended Discharge Disposition: Home PT Recommended Discharge Disposition Comments: Anticipate need for 24 hour care upon dc due to cognitive limitations, and expected limitations post hip fx. Anticipated Discharge Needs: Family Training, Physical Assist at Home, Supervision at Home, Equipment Physical Assist at Home for: Laundry, Cleaning, Ambulation, Finances, Meals, Medication Management, Stairs, Safety, Self Care, Shopping, Transportation Supervision at Home due to: Impaired cognition Recommended Discharge Equipment: To Be Determined PT 6 Clicks Score: 17 Precautions/Activity Restrictions: Weight Bearing Restrictions, Bed/Chair Alarm Precaution/Activity Restriction Comments: ORIF L hip Isolation Type: None Extremity With Weight Bearing Restricted: Left Lower Extremity Left Lower Extremity Weight Bearing Status: WBAT Current Hospital Course: Admt to [facility] on 01/11 due to mechanical fall at home resulting in L intertrochanteric hip fracture. s/p ORIF L hip. Relevant Past Medical History: Arthitis, CA, HTN, lymphedema, dementia Response to Therapy Interventions: Good Participation in Activities Treatment Interventions: Strengthening, Functional Mobility Training Plan for Next Visit: Gait Training, Standing Balance Home Environment Patient Lives With: Family (grandson and his and 1year old child, p-atraghu's dtr lives nearby) Assistance Available: Part-Time (need to verify with family. Patient poor historian.) Entry To Home: Stairs, With Rail Number Of Stairs Into Home: 4 Number Of Stairs To Bed/Bath: 0 Tub/Shower Type: tub shower with chair Laundry: family completes Equipment Owned: Walker- Wheeled, Lift Chair, Grab Bars- Toilet, Grab Bars- Shower, Shower Chair, Hand Held Shower, Commode- Raised, Emergency Response System Prior Functional Level: Required Assistance, History of Falls Assistance Required With: Cleaning, Laundry, Meals, Medication Management, Stairs, Safety, Self Care, Shopping, Transportation, Finances Prior Functional Level Comments: Pt questionable historian, pt reports IND with ADLS, family completes IALDs. ambulates with wheeled walker, history of falls (unable to recall an approximate amount however), sleeps in adjustable bed. Uses HOB elevated to get out of bed, uses lift chair during the day. States shw walks in the hallway every hour. Baseline Cognition: Oriented to self, Requires 24/7 supervision, Oriented to situation Subjective: I feel I am moving better CURRENT FUNCTIONAL STATUS: Most recent performance Current Functional Mobility Assist Level Additional Information Rolling Minimal Assistance Supine to Sit Minimal Assistance (ocassional asssit needed with LEs) Sit to Supine Moderate Assistance (assist BLE) Scooting Contact Guard Assistance Sit to Stand Contact Guard Assistance Stand to Sit Contact Guard Assistance Bed to Chair Minimal Assistance Bed To Chair Transfer Type: Stepping Bed To Chair Transfer Equipment: Gait Belt, Wheeled Walker Toilet/Commode Contact Guard Assistance Gait Contact Guard Assistance Gait Device: Wheeled Walker Gait Distance (feet): 5' x 2 Stairs Curb Step Car Transfer Blank epstein indicate activity not attempted General Deviations/Observation s: Robyn decreased, Non-functional gait speed Balance: Static Sitting, Dynamic Sitting, Static Standing, Dynamic Standing Static Sitting Balance: Good Patient able to maintain balance without handhold support, limited postural sway Dynamic Sitting Balance: Fair Patient accepts minimal challenge, able to maintain balance while turning head/trunk Static Standing Balance: Fair Patient able to maintain balance with handhold support, may require occasional minimal assistance Dynamic Standing Balance: Fair Patient accepts minimal challenge, able to maintain balance while turning head/trunk Activity Tolerance: Sitting Activity, Standing Activity Sitting Activity: sitting EOB Sitting Activity Tolerance (in minutes): 5 Standing Activity: standing with walker Standing Activity Tolerance (in minutes): 2 JH-HLM: 6: Walk 10 steps or more Functional Performance Test Functional Performance Test: 30 Second Sit to Stand 30 Second Sit To Stand (count): (more content not included)... Normal [facility] THERAPY NT HNO ID: [id number] Author: ISABELLA SANCHEZ OTR/L Service: Occupational Therapy Author Type: Digital Associate Type: Therapy (PT/OT/Speech/Resp) Filed: 02/01/2024 16:52 Note Text: Attestation signed by Isabella Sanchez OTR/L at 02/01/2024 4:52 PM I reviewed and agree with the documentation corresponding to this therapy visit. SIGNATURE: KATARZYNA Garcia DATE: February 01, 2024 TIME: 4:52 PM Occupational Therapy Care Home Facility Treatment Summary SERVICE DATE: 02/01/2024 SERVICE TIME: 914 to 1014 ROOM: [place] [address] OT 6 Clicks Score: 20 DISCHARGE RECOMMENDATIONS Home OT (vs discharge to SENIOR CARE/ECF) Recommended Discharge Disposition Comments: Pt's discharge disposition is dependent upon progress made and family ability to provide necessary assistance Anticipated Discharge Needs: Family Training, Physical Assist at Home, Supervision at Home, Equipment Recommended Discharge Equipment: To Be Determined GOALS Patient will demonstrate progress with self-care, cognitive and/or coping needs identified to allow safe discharge to home with available support and/or physical assistance. Grooming with: Set Up Upper Body Bathing with: Set Up Upper Body Dressing with: Set Up Lower Body Bathing with: Minimal Assistance Lower Body Dressing with: Moderate Assistance Toilet Hygiene with: Moderate Assistance Chair Transfer with: Contact Guard Assistance Toilet Transfer with: Contact Guard Assistance Shower Transfer with: Minimal Assistance Tolerate (minutes of functional activity): 45 Functional Activity with: Contact Guard Assistance Progress Toward Goals: Progressing as expected Rehab Potential: Good ASSESSMENT Response to Therapy Interventions: Good Participation in Activities, Requires Additional Time to Complete Activities Pt completing sponge bathing with grand dtr present for Family Training. Instructed in AE use and benefits for energy conservation, pain reduction, and safety with pt's caregiver voicing concerns that their use may reduce motivation to flex at hips. Education provided regarding the above as well as continued progress of therapy to ensure ROM and safety joint movement and HEART provided for caregivers concerns with pt and caregiver voicing understanding of education. Recommendation of continued therapy to continue pt progress and increase IND in self-care tasks prior to d/c. Plan for Next Visit: Bathing Training, Bed Mobility, Chair/Commode Transfer Training, Dressing Training, Exercise Instruction/Handout, Grooming Training, Sit to Stand Transfers, Standing Balance, Standing Tolerance, Toileting Instruction PRECAUTIONS Weight Bearing Restrictions, Bed/Chair Alarm ORIF L hip Left Lower Extremity Weight Bearing Status: WBAT SUBJECTIVE Pt reporting feeling good about how she did today - I feel more human today. FUNCTIONAL STATUS Activities of Daily Living Assist Level Additional Information Feeding Set Up Grooming Set Up, Additional Information Bathing Upper Body Set Up, Additional Information to sponge bathe upper body while seated in chair; assist for back only Bathing Lower Body Additional Information, Minimal Assistance assist for thorough cleaning of buttocks; instructed in use of long sponge to bathe feet and distal LEs along with use of dressing stick to dry feet Dressing Upper Body Set Up, Additional Information don/doff nightgown and overhead tshirt while seated in chair Dressing Lower Body Minimal Assistance Use of AE for threading pants/briefs and socks. Assist with managing up over thighs and hips. Assist for donning/doffing GRACIA hose. Toileting Moderate Assistance Simulated: Pt able to assist with clothing management but will likely require assist with posterior hygiene. Instrumental Activities of Daily Living Assist Level Additional Information Meal/Beverage Prep Total Assistance Cleaning Total Assistance Laundry Total Assistance Medication Management with Strategies Total Assistance Mobility Assist Level Additional Information Bed Mobility Rolling: Minimal Assistance Supine To Sit: Minimal Assistance Sit To Supine: Moderate Assistance Sit to Stand Moderate Assistance from recliner Stand to Sit Contact Guard Assistance for hand placement and alignement Bed to Chair Minimal Assistance Bed To Chair Transfer Type: Stepping Bed To Chair Transfer Equipment: Wheeled Walker Toilet/Commode Moderate Assistance for STS Shower Functional Mobility Minimal Assistance Functional Mobility Device: Wheeled Walker Slow movements throughout transitions CURRENT HOSPITAL COURSE Admt to [facility] on 01/11 due to mechanical fall at home resulting in L intertrochanteric hip fracture. s/p ORIF L hip. Relevant Past Medical History: Arthiti (more content not included)... Normal [facility] THERAPY NTon 01-30-2024 THERAPY NT HNO ID: [id number] Author: JAYE MARK OTR/L Service: Occupational Therapy Author Type: Occupational Therapist Type: Therapy (PT/OT/Speech/Resp) Filed: 01/30/2024 11:02 Note Text: Occupational Therapy Care Home Facility Treatment Summary SERVICE DATE: 01/30/2024 SERVICE TIME: 1030 to 1057 ROOM: [place] [address] OT 6 Clicks Score: 19 DISCHARGE RECOMMENDATIONS Home OT (vs discharge to [facility]) Recommended Discharge Disposition Comments: Pt's discharge disposition is dependent upon progress made and family ability to provide necessary assistance Anticipated Discharge Needs: Family Training, Physical Assist at Home, Supervision at Home, Equipment Recommended Discharge Equipment: To Be Determined GOALS Patient will demonstrate progress with self-care, cognitive and/or coping needs identified to allow safe discharge to home with available support and/or physical assistance. Grooming with: Set Up Upper Body Bathing with: Set Up Upper Body Dressing with: Set Up Lower Body Bathing with: Minimal Assistance Lower Body Dressing with: Moderate Assistance Toilet Hygiene with: Moderate Assistance Chair Transfer with: Contact Guard Assistance Toilet Transfer with: Contact Guard Assistance Shower Transfer with: Minimal Assistance Tolerate (minutes of functional activity): 45 Functional Activity with: Contact Guard Assistance Progress Toward Goals: Progressing as expected Rehab Potential: Good ASSESSMENT Response to Therapy Interventions: Good Participation in Activities, Requires Additional Time to Complete Activities pt taking increased steps this date with increased time/effort; pt very fatigued upon ambulating to bed (~5 feet) ; pt then stepping towards chair x2 assist for safety d/t increased shakiness and fatigue levels Plan for Next Visit: Bathing Training, Bed Mobility, Chair/Commode Transfer Training, Dressing Training, Exercise Instruction/Handout, Grooming Training, Sit to Stand Transfers, Standing Balance, Standing Tolerance, Toileting Instruction PRECAUTIONS Weight Bearing Restrictions, Bed/Chair Alarm ORIF L hip Left Lower Extremity Weight Bearing Status: WBAT SUBJECTIVE Pt reports much fatigue after tx session FUNCTIONAL STATUS Activities of Daily Living Assist Level Additional Information Feeding Set Up Grooming Set Up, Additional Information Bathing Upper Body Set Up, Additional Information Bathing Lower Body Moderate Assistance, Additional Information Dressing Upper Body Set Up, Additional Information Dressing Lower Body Minimal Assistance Toileting Maximal Assistance, Additional Information Instrumental Activities of Daily Living Assist Level Additional Information Meal/Beverage Prep Total Assistance Cleaning Total Assistance Laundry Total Assistance Medication Management with Strategies Total Assistance Mobility Assist Level Additional Information Bed Mobility Rolling: Minimal Assistance Supine To Sit: Minimal Assistance Sit To Supine: Moderate Assistance Sit to Stand Minimal Assistance, Moderate Assistance from recliner and EOB d/t fatigue Stand to Sit Contact Guard Assistance Bed to Chair Minimal Assistance Bed To Chair Transfer Type: Stepping Bed To Chair Transfer Equipment: Wheeled Walker pt taking steps from chair to bed and back to chair- decreased distance second time d/t much fatigue Toilet/Commode Moderate Assistance, Additional Information Shower Functional Mobility Minimal Assistance Functional Mobility Device: Wheeled Walker pt requiring min-mod assist x 1 for stepping to bed; assist x 2 for safety transferring back to chair d/t increased fatigue CURRENT HOSPITAL COURSE Admt to [facility] on 01/11 due to mechanical fall at home resulting in L intertrochanteric hip fracture. s/p ORIF L hip. Relevant Past Medical History: Arthitis, CA, HTN, lymphedema, dementia HOME LIVING Patient Lives With: Family (grandson and his and 1year old child, peter'david dtr lives nearby) Assistance Available: Part-Time (need to verify with family. Patient poor historian.) Entry To Home: Stairs, With Rail Number Of Stairs Into Home: 4 Number Of Stairs To Bed/Bath: 0 Tub/Shower Type: tub shower with chair Laundry: family completes Equipment Owned: Walker- Wheeled, Lift Chair, Grab Bars- Toilet, Grab Bars- Shower, Shower Chair, Hand Held Shower, Commode- Raised, Emergency Response System PRIOR FUNCTIONAL LEVEL Required Assistance, History of Falls Assistance Required With: Cleaning, Laundry, Meals, Medication Management, Stairs, Safety, Self Care, Shopping, Transportation, Finances Pt questionable historian, pt reports IND with ADLS, family completes IALDs. ambulates with wheeled walker, history of falls (unable to recall an approximate amount however), sleeps in adjustable bed. Uses HOB elevated to get out of bed, uses lift chair during the day. States shw walks in the hallway every (more content not included)... Normal [facility] THERAPY NT HNO ID: [id number] Author: ELLE HOOVER, HUGH Service: Physical Therapy Author Type: Digital Retoucher Type: Therapy (PT/OT/Speech/Resp) Filed: 01/30/2024 17:16 Note Text: Attestation signed by Elle Hoover PT at 01/30/2024 5:16 PM I reviewed and agree with the documentation corresponding to this therapy visit. SIGNATURE: Elle Hoover PT DATE: January 30, 2024 TIME: 5:16 PM Physical Therapy Care Home Facility Treatment Summary SERVICE DATE: 01/30/2024 SERVICE TIME: 841 ROOM: [place] [address] PT 6 Clicks Score: 17 DISCHARGE RECOMMENDATIONS Home PT Recommended Discharge Disposition Comments: Anticipate need for 24 hour care upon dc due to cognitive limitations, and expected limitations post hip fx. Anticipated Discharge Needs: Family Training, Physical Assist at Home, Supervision at Home, Equipment Recommended Discharge Equipment: To Be Determined GOALS Patient will demonstrate progress with functional mobility to allow safe discharge to home with available support and/or physical assistance. Able to Perform HEP with: Supervision Rolling with: Modified Independent Transfer Supine to/from Sit with: Modified Independent Transfer Sit to/from Stand with: Modified Independent Ambulate with: Stand By Assistance Distance: 50 Device: Wheeled Walker Ambulate Up and Down Steps with: Minimal Assistance Number of Steps: 4 Device: Rail, Cane Rehab Potential: Good Progress Toward Goals: Progressing as expected ASSESSMENT Response to Therapy Interventions: Good Participation in Activities, Improved Tolerance for Activity Patient able to take a few more steps in this session than previous session with good tolerance while requiring some verbal cues to push through her arms. Plan for Next Visit: Gait Training, Exercise Instruction/Handout, Standing Tolerance PRECAUTIONS Weight Bearing Restrictions, Bed/Chair Alarm ORIF L hip Left Lower Extremity Weight Bearing Status: WBAT SUBJECTIVE I normally go to bed at about seven FUNCTIONAL STATUS Bed Mobility Rolling: Minimal Assistance Supine To Sit: Minimal Assistance (ocassional asssit needed with LEs) Sit to Supine: Moderate Assistance (assist BLE) Scooting: Contact Guard Assistance Transfers Sit To Stand: Contact Guard Assistance Stand To Sit: Contact Guard Assistance Bed to Chair Minimal Assistance Bed To Chair Transfer Type: Stepping Bed To Chair Transfer Equipment: Gait Belt, Wheeled Walker Gait Minimal Assistance Gait Device: Wheeled Walker General Deviations/Observation s: Robyn decreased, Difficulty changing direction/turning, Flexed trunk posture, Non-functional gait speed, Shuffling Gait, Step length decreased Gait Distance (feet): 5 steps Stairs CURRENT HOSPITAL COURSE Admt to [facility] on 01/11 due to mechanical fall at home resulting in L intertrochanteric hip fracture. s/p ORIF L hip. Relevant Past Medical History: Arthitis, CA, HTN, lymphedema, dementia HOME LIVING Patient Lives With: Family (grandson and his and 1year old child, peter's dtr lives nearby) Assistance Available: Part-Time (need to verify with family. Patient poor historian.) Entry To Home: Stairs, With Rail Number Of Stairs Into Home: 4 Number Of Stairs To Bed/Bath: 0 Tub/Shower Type: tub shower with chair Laundry: family completes Equipment Owned: Walker- Wheeled, Lift Chair, Grab Bars- Toilet, Grab Bars- Shower, Shower Chair, Hand Held Shower, Commode- Raised, Emergency Response System PRIOR FUNCTIONAL LEVEL Required Assistance, History of Falls Assistance Required With: Cleaning, Laundry, Meals, Medication Management, Stairs, Safety, Self Care, Shopping, Transportation, Finances Pt questionable historian, pt reports IND with ADLS, family completes IALDs. ambulates with wheeled walker, history of falls (unable to recall an approximate amount however), sleeps in adjustable bed. Uses HOB elevated to get out of bed, uses lift chair during the day. States shw walks in the hallway every hour. THERAPY DIAGNOSIS Reduced mobility-other, Muscle Weakness (generalized) TREATMENT INTERVENTIONS Therapeutic Exercise (71370), Therapeutic Activity (69887), Gait Training (98846) Timed Code Treatment (minutes): 50 Skilled Treatment Time (minutes): 50 EXERCISE Exercises Exercise Performed: Ankle Pumps, Quad Sets, Glut Sets, Heel Slides, SAQ, LAQ, Hip Abduction Ankle Pumps (number of reps): 20 Quad Sets (number of reps): 10 Glut Sets (number of reps): 20 Heel Slides (number of reps): 10 SAQ (number of reps): 10 LAQ (number of reps): 10 Hip Abduction (number of reps): 10 Exercise: STS x5 TRAINING AND EDUCATION PROVIDED Bed Mobility, Benefits of In-Hospital Mobility, Discharge Planning, E (more content not included)... Normal [facility] Basic metabolic 2000 panelon 01-29-2024 Anion gap [Moles/Vol] 8 mmol/L Low 9-18 [facility] Comment on above: Order Comment: Speci men Type: BLOOD SPECIMEN Ordering Facility: [facility] Address: [address] [place] [address] Performed By: #### 2 4321-2 #### [facility] CLIA [id number] [address] [place] [address] [place] Calcium [Mass/Vol] 8.3 mg/dL Low 8.5-10.2 [facility] Comment on above: Order Comment: Speci men Type: BLOOD SPECIMEN Ordering Facility: [facility] Address: [address] [place] [address] Performed By: #### 2 4321-2 #### [facility] CLIA [id number] [address] [place] [address] [place] Chloride [Moles/Vol] 107 mmol/L High 97-105 [facility] Comment on above: Order Comment: Speci men Type: BLOOD SPECIMEN Ordering Facility: [facility] Address: [address] [place] [address] Performed By: #### 2 4321-2 #### [facility] CLIA [id number] [address] [place] [address] [place] CO2 [Moles/Vol] 26 mmol/L Normal 22-30 [facility] Comment on above: Order Comment: Speci men Type: BLOOD SPECIMEN Ordering Facility: [facility] Address: [address] [place] [address] Performed By: #### 2 4321-2 #### [facility] CLIA [id number] [address] [place] [address] [place] Creatinine [Mass/Vol] 1.23 mg/dL High 0.58-0.96 [facility] Comment on above: Order Comment: Speci men Type: BLOOD SPECIMEN Ordering Facility: [facility] Address: [address] [place] [address] Performed By: #### 2 4321-2 #### [facility] CLIA [id number] [address] [place] [address] [place] Creatinine and Glomerular filtration rate.predicted panel (S/P/Bld) 44 mL/min/1.73m??? Low >=60 [facility] Comment on above: Order Comment: Hilary ocampo Type: BLOOD SPECIMEN Ordering Facility: [facility] Address: [address] [place] [address] Result Comment: Patience mated Glomerular Filtration Rate (eGFR) is calculated using the 2020 CKD-EPI creatinine equation. This equation utilizes serum creatinine, sex, and age as parameters. The creatinine assay has traceable calibration to isotope dilution-mass spectrometry. Refer to KDIGO guidelines for clinical interpretation. In patients with unstable renal function, e.g. those with acute kidney injury, the eGFR may not accurately reflect actual GFR. Performed By: #### 2 4321-2 #### [facility] CLIA [id number] [address] [place] [address] [place] Glucose [Mass/Vol] 94 mg/dL Normal 74-99 [facility] Comment on above: Order Comment: Hilary ocampo Type: BLOOD SPECIMEN Ordering Facility: [facility] Address: [address] [place] [address] Result Comment: The [place] Diabetes Association (ADA) provides guidance for cutoff values for fasting glucose and random glucose. The ADA defines fasting as no caloric intake for at least 8 hours. Fasting plasma glucose results between 100 to 125 mg/dL indicate increased risk for diabetes (prediabetes). Fasting plasma glucose results greater than or equal to 126 mg/dL meet the criteria for diagnosis of diabetes. In the absence of unequivocal hyperglycemia, results should be confirmed by repeat testing. In a patient with classic symptoms of hyperglycemia or hyperglycemic crisis, random plasma glucose results greater than or equal to 200 mg/dL meet the criteria for diagnosis of diabetes. Reference: Standards of Medical Care in Diabetes 2016, [place] Diabetes Association. Diabetes Care. 2016.39(Suppl 1). Performed By: #### 2 4321-2 #### [facility] CLIA [id number] [address] [place] [address] [place] Potassium [Moles/Vol] 4.3 mmol/L Normal 3.7-5.1 [facility] Comment on above: Order Comment: Hilary ocampo Type: BLOOD SPECIMEN Ordering Facility: [facility] Address: [address] [place] [address] Performed By: #### 2 4321-2 #### [facility] CLIA [id number] [address] [place] [address] [place] Sodium [Moles/Vol] 141 mmol/L Normal 136-144 [facility] Comment on above: Order Comment: Speci men Type: BLOOD SPECIMEN Ordering Facility: [facility] Address: [address] [place] [address] Performed By: #### 2 4321-2 #### [facility] CLIA [id number] [address] [place] [address] [place] Urea nitrogen [Mass/Vol] 24 mg/dL High 7-21 [facility] Comment on above: Order Comment: Speci men Type: BLOOD SPECIMEN Ordering Facility: [facility] Address: [address] [place] [address] Performed By: #### 2 4321-2 #### [facility] CLIA [id number] [address] [place] [address] [place] CBC panel Auto (Bld)on 01-28 Erythrocyte distribution width (RBC) [Ratio] 14.5 % Normal 11.5-15.0 [facility] Comment on above: Order Comment: Speci men Type: BLOOD SPECIMEN Ordering Facility: [facility] Address: [address] [place] [address] Performed By: #### 5 8410-2 #### [facility] CLIA [id number] [address] [place] [address] [place] Hematocrit (Bld) [Volume fraction] 25.7 % Low 36.0-46.0 [facility] Comment on above: Order Comment: Speci men Type: BLOOD SPECIMEN Ordering Facility: [facility] Address: [address] [place] [address] Performed By: #### 5 8410-2 #### [facility] CLIA [id number] [address] [place] [address] [place] Hemoglobin (Bld) [Mass/Vol] 8.1 g/dL Low 11.5-15.5 [facility] Comment on above: Order Comment: Speci men Type: BLOOD SPECIMEN Ordering Facility: [facility] Address: [address] [place] [address] Performed By: #### 5 8410-2 #### [facility] CLIA [id number] [address] [place] [address] [facility] MCH (RBC) [Entitic mass] 32.1 pg Normal 26.0-34.0 [facility] Comment on above: Order Comment: Speci men Type: BLOOD SPECIMEN Ordering Facility: [facility] Address: [address] [place] [address] Performed By: #### 5 8410-2 #### [facility] CLIA [id number] [address] [place], [place] [id number] [place] [address] OF [facility] MCHC (RBC) [Mass/Vol] 31.5 g/dL Normal 30.5-36.0 [facility] Comment on above: Order Comment: Speci men Type: BLOOD SPECIMEN Ordering Facility: [facility] Address: [address] [place] [address] Performed By: #### 5 8410-2 #### [facility] CLIA [id number] [address] [place] [address] [place] MCV (RBC) [Entitic vol] 102.0 fL High 80.0-100.0 [facility] Comment on above: Order Comment: Speci men Type: BLOOD SPECIMEN Ordering Facility: [facility] Address: [address] [place] [address] Performed By: #### 5 8410-2 #### [facility] CLIA [id number] [address] [place] [address] [place] Platelet mean volume (Bld) [Entitic vol] 9.1 fL Normal 9.0-12.7 [facility] Comment on above: Order Comment: Speci men Type: BLOOD SPECIMEN Ordering Facility: [facility] Address: [address] [place] [address] Performed By: #### 5 8410-2 #### [facility] CLIA [id number] [address] [place] [address] [facility] [place] Platelets (Bld) [#/Vol] 249 10*3/uL Normal 150-400 [facility] Comment on above: Order Comment: Hilary ocampo Type: BLOOD SPECIMEN Ordering Facility: [facility] Address: [address] [place] [address] Performed By: #### 5 8410-2 #### [facility] CLIA [id number] [address] [place], [place] [address] [place] [address] [place] RBC (Bld) [#/Vol] 2.52 10*6/uL Low 3.90-5.20 [facility] Comment on above: Order Comment: Hilary ocampo Type: BLOOD SPECIMEN Ordering Facility: [facility] Address: [address] [place] [address] Performed By: #### 5 8410-2 #### [facility] CLIA [id number] [address] WBC (Bld) [#/Vol] 7.88 10*3/uL Normal 3.70-11.00 [facility] Comment on above: Order Comment: Hilary ocampo Type: BLOOD SPECIMEN Ordering Facility: [facility] Address: [address] [place] [address] Performed By: #### 5 8410-2 #### [facility] CLIA [id number] [address] OF [facility] SOCIAL WORKon 01-29-2024 SOCIAL WORK HNO ID: [id number] Author: KRYSTYNA FOX LSW Service: Social Work Author Type: Musical String Maker Type: Social Work Filed: 01/29/2024 11:44 Note Text: Summary: Patient Care Conference [facility]DISCIPLIN[facility] SERVICE DATE: 01/29/2024 ADMISSION DATE: 01/17/2024 SERVICE TIME: 11:00 AM ANTICIPATED D/C DATE: pending insurance approval (update to be sent today) Physical Therapy: Elle Occupational Therapy: Rosie Social Work: Krystyna Met with Jackelyn Bradshaw and daughter esther Mota Zachary, [id number] Juanis, dtr-in-law Lizbet and grandkaylee White to discuss patient's progress in rehabilitation program. Anticipated discharge disposition: Home with homecare Equipment recommendations: Bedside Commode, Ramp, ADL/Hip Kit, possibly a bidet if desired. Was family updated on current status and discharge planning: Yes Patient has made great progress in PT and OT (physical and occupational therapy.) She no longer needs the rolando stedy to ambulate. Therapy are recommending additional time to get patient at a more independent and comfortable level. An update is due to insurance today.Therapy recommending that when patient is home, she do some exercises or walk every hour during the day. grizzly worker is working on getting a home health care agency for PT and OT. PRODUCT SUPPORT SALES REPRESENTATIVE may also be ordered as long as therapy is active with patient. Family is aware of the three day notice given by insurance prior to discharge. Family is looking into a ramp for entrance to their home. They are not getting responses. Additional needs: If desired, and needed at time of discharge, OT suggested a bidet to help with hygiene after toileting. DOCUMENTED BY: MICHELA Chanel PATIENT NAME: Jackelyn Bradshaw DATE: January 29, 2024 TIME: 10:53 AM CSN: [id number] [facility] THERAPY NTon 01-29-2024 THERAPY NT HNO ID: [id number] Author: ELLE HOOVER, PT Service: Physical Therapy Author Type: Digital Retoucher Type: Therapy (PT/OT/Speech/Resp) Filed: 01/29/2024 15:49 Note Text: Attestation signed by Elle Hoover PT at 01/29/2024 3:49 PM I reviewed and agree with the documentation corresponding to this therapy visit. SIGNATURE: Elle Hoover PT DATE: January 29, 2024 TIME: 3:49 PM Physical Therapy Care Home Facility Treatment Summary SERVICE DATE: 01/29/2024 SERVICE TIME: 1245 to 1315 ROOM: [place] [address] PT 6 Clicks Score: 15 DISCHARGE RECOMMENDATIONS Home PT Recommended Discharge Disposition Comments: Anticipate need for 24 hour care upon dc due to cognitive limitations, and expected limitations post hip fx. Anticipated Discharge Needs: Family Training, Physical Assist at Home, Supervision at Home, Equipment Recommended Discharge Equipment: To Be Determined GOALS Patient will demonstrate progress with functional mobility to allow safe discharge to home with available support and/or physical assistance. Able to Perform HEP with: Supervision Rolling with: Modified Independent Transfer Supine to/from Sit with: Modified Independent Transfer Sit to/from Stand with: Modified Independent Ambulate with: Stand By Assistance Distance: 50 Device: Wheeled Walker Ambulate Up and Down Steps with: Minimal Assistance Number of Steps: 4 Device: Rail, Cane Rehab Potential: Good Progress Toward Goals: Progressing as expected ASSESSMENT Response to Therapy Interventions: Good Participation in Activities, Improved Tolerance for Activity Patients family present in this session inscruted family on how to don gait belt as well as where to stand when patient is performing sit to stand tranfers and had patient demonstrate supine HEP to family memebers. Plan for Next Visit: Gait Training, Exercise Instruction/Handout PRECAUTIONS Weight Bearing Restrictions, Bed/Chair Alarm ORIF L hip Left Lower Extremity Weight Bearing Status: WBAT SUBJECTIVE Patient states that she is feeling good and does not have any pain FUNCTIONAL STATUS Bed Mobility Rolling: Minimal Assistance Supine To Sit: Moderate Assistance (HOB elevated, assist LLE) Sit to Supine: Moderate Assistance (assist BLE) Scooting: Contact Guard Assistance Transfers Sit To Stand: Contact Guard Assistance Stand To Sit: Contact Guard Assistance Bed to Chair Moderate Assistance Bed To Chair Transfer Type: Stepping Bed To Chair Transfer Equipment: Gait Belt, Wheeled Walker Gait Moderate Assistance Gait Device: Wheeled Walker General Deviations/Observation s: Robyn decreased, Difficulty changing direction/turning, Flexed trunk posture, Non-functional gait speed, Shuffling Gait, Step length decreased Gait Distance (feet): 3-5 side steps from chair to bed Stairs CURRENT HOSPITAL COURSE Admt to [facility] on 01/11 due to mechanical fall at home resulting in L intertrochanteric hip fracture. s/p ORIF L hip. Relevant Past Medical History: Arthitis, CA, HTN, lymphedema, dementia HOME LIVING Patient Lives With: Family (grandson and his and 1year old child, p-atient's dtr lives nearby) Assistance Available: Part-Time (need to verify with family. Patient poor historian.) Entry To Home: Stairs, With Rail Number Of Stairs Into Home: 4 Number Of Stairs To Bed/Bath: 0 Tub/Shower Type: tub shower with chair Laundry: family completes Equipment Owned: Walker- Wheeled, Lift Chair, Grab Bars- Toilet, Grab Bars- Shower, Shower Chair, Hand Held Shower, Commode- Raised, Emergency Response System PRIOR FUNCTIONAL LEVEL Required Assistance, History of Falls Assistance Required With: Cleaning, Laundry, Meals, Medication Management, Stairs, Safety, Self Care, Shopping, Transportation, Finances Pt questionable historian, pt reports IND with ADLS, family completes IALDs. ambulates with wheeled walker, history of falls (unable to recall an approximate amount however), sleeps in adjustable bed. Uses HOB elevated to get out of bed, uses lift chair during the day. States shw walks in the hallway every hour. THERAPY DIAGNOSIS Reduced mobility-other, Muscle Weakness (generalized) TREATMENT INTERVENTIONS Therapeutic Exercise (81453), Therapeutic Activity (15024) Timed Code Treatment (minutes): 30 Skilled Treatment Time (minutes): 30 EXERCISE Exercises Exercise Performed: Ankle Pumps, Heel Slides, SAQ, Hip Abduction Ankle Pumps (number of reps): 20 Heel Slides (number of reps): 10 SAQ (number of reps): 10 Hip Abduction (number of reps): 10 Exercise: STS x5 TRAINING AND EDUCATION PROVIDED Bed Mobility, Discharge Planning, Equipment, Exercise Program, Expected Functional Level, Falls Prevention, Transfers THERAP (more content not included)... Normal [facility] THERAPY NT HNO ID: [id number] Author: JAYE MARK OTR/L Service: Occupational Therapy Author Type: Digital Associate Type: Therapy (PT/OT/Speech/Resp) Filed: 01/29/2024 13:31 Note Text: Attestation signed by Jaye Mark OTR/L at 01/29/2024 1:31 PM I reviewed and agree with the documentation corresponding to this therapy visit. SIGNATURE: KATARZYNA Vilchis DATE: January 29, 2024 TIME: 1:31 PM Summary: OT Care Conference Occupational Therapy Care Home Facility Treatment Summary SERVICE DATE: 01/29/2024 SERVICE TIME: 1104 to 1134 ROOM: [place] [address] OT 6 Clicks Score: 19 DISCHARGE RECOMMENDATIONS Home OT (vs discharge to SENIOR CARE/ECF) Recommended Discharge Disposition Comments: Pt's discharge disposition is dependent upon progress made and family ability to provide necessary assistance Anticipated Discharge Needs: Family Training, Physical Assist at Home, Supervision at Home, Equipment Recommended Discharge Equipment: To Be Determined GOALS Patient will demonstrate progress with self-care, cognitive and/or coping needs identified to allow safe discharge to home with available support and/or physical assistance. Grooming with: Set Up Upper Body Bathing with: Set Up Upper Body Dressing with: Set Up Lower Body Bathing with: Minimal Assistance Lower Body Dressing with: Moderate Assistance Toilet Hygiene with: Moderate Assistance Chair Transfer with: Contact Guard Assistance Toilet Transfer with: Contact Guard Assistance Shower Transfer with: Minimal Assistance Tolerate (minutes of functional activity): 45 Functional Activity with: Contact Guard Assistance Progress Toward Goals: Progressing as expected Rehab Potential: Good ASSESSMENT Response to Therapy Interventions: Good Participation in Activities Pt and family participating in care conference this day with education focusing on the following: assist levels of MaxA for toileting, ModA for bathing LB, Janet for dressing LB with use of AE, equipment recommendations of: AE, BSC, HHT recommendation as well. Pt and family verbalizing understanding of all recommendations. Pt continues to make consistent progress with therapy and would benefit from contiued therapy days in order to increase IND and function prior to d/c home. Plan for Next Visit: Bathing Training, Bed Mobility, Chair/Commode Transfer Training, Dressing Training, Exercise Instruction/Handout, Grooming Training, Sit to Stand Transfers, Standing Balance, Standing Tolerance, Toileting Instruction PRECAUTIONS Weight Bearing Restrictions, Bed/Chair Alarm ORIF L hip Left Lower Extremity Weight Bearing Status: WBAT SUBJECTIVE Pt and family participating in Care Conference/Family Training FUNCTIONAL STATUS Activities of Daily Living Assist Level Additional Information Feeding Set Up Grooming Set Up, Additional Information Bathing Upper Body Set Up, Additional Information Bathing Lower Body Moderate Assistance, Additional Information Dressing Upper Body Set Up, Additional Information Dressing Lower Body Minimal Assistance Toileting Maximal Assistance, Additional Information Instrumental Activities of Daily Living Assist Level Additional Information Meal/Beverage Prep Total Assistance Cleaning Total Assistance Laundry Total Assistance Medication Management with Strategies Total Assistance Mobility Assist Level Additional Information Bed Mobility Rolling: Minimal Assistance Supine To Sit: Minimal Assistance Sit To Supine: Moderate Assistance Sit to Stand Contact Guard Assistance Stand to Sit Contact Guard Assistance Bed to Chair Moderate Assistance, Additional Information Bed To Chair Transfer Type: Stepping Bed To Chair Transfer Equipment: Wheeled Walker, Gait Belt Toilet/Commode Moderate Assistance, Additional Information Shower Functional Mobility Moderate Assistance, Additional Information Functional Mobility Device: Wheeled Walker CURRENT HOSPITAL COURSE Admt to [facility] on 01/11 due to mechanical fall at home resulting in L intertrochanteric hip fracture. s/p ORIF L hip. Relevant Past Medical History: Arthitis, CA, HTN, lymphedema, dementia HOME LIVING Patient Lives With: Family (grandson and his and 1year old child, p-atient's dtr lives nearby) Assistance Available: Part-Time (need to verify with family. Patient poor historian.) Entry To Home: Stairs, With Rail Number Of Stairs Into Home: 4 Number Of Stairs To Bed/Bath: 0 Tub/Shower Type: tub shower with chair Laundry: family completes Equipment Owned: Walker- Wheeled, Lift Chair, Grab (more content not included)... Normal [facility] THERAPY NT HNO ID: [id number] Author: ELLE HOOVER PT Service: Physical Therapy Author Type: Physical Therapist Type: Therapy (PT/OT/Speech/Resp) Filed: 01/29/2024 12:19 Note Text: Summary: PT Care Conference Physical Therapy Care Home Facility Treatment Summary SERVICE DATE: 01/29/2024 SERVICE TIME: 1104 to 1134 ROOM: [place] [address] PT 6 Clicks Score: 15 DISCHARGE RECOMMENDATIONS Home PT Recommended Discharge Disposition Comments: Anticipate need for 24 hour care upon dc due to cognitive limitations, and expected limitations post hip fx. Anticipated Discharge Needs: Family Training, Physical Assist at Home, Supervision at Home, Equipment Recommended Discharge Equipment: To Be Determined GOALS Patient will demonstrate progress with functional mobility to allow safe discharge to home with available support and/or physical assistance. Able to Perform HEP with: Supervision Rolling with: Modified Independent Transfer Supine to/from Sit with: Modified Independent Transfer Sit to/from Stand with: Modified Independent Ambulate with: Stand By Assistance Distance: 50 Device: Wheeled Walker Ambulate Up and Down Steps with: Minimal Assistance Number of Steps: 4 Device: Rail, Cane Rehab Potential: Good Progress Toward Goals: Progressing as expected ASSESSMENT Response to Therapy Interventions: Limited Participation Family training/ conference with patient, grandson, granddaughter, daughter, daughter in law, and granddaughter present as well as PT, OT, and SALES CLERK [employer]. Discussion regarding patient's current level of functioning, with patient's fatigue and endurance levels as a potential barrier to progression, as well as patient making significant progress since initial evaluation for all mobility, with patient now at a min/mod A for all bed mobility, min A for transfers (increased assist as patient fatigues) and min A for short bouts for ambulation at [facility]. Encouraged installment of ramp this date, as well as encouraged rental of wheelchair initially for going up ramp as well as if patient is having a more tired day. Continue as tolerated, with emphasis on continued progress in sessions daily. Plan for Next Visit: Gait Training, Exercise Instruction/Handout PRECAUTIONS Weight Bearing Restrictions, Bed/Chair Alarm ORIF L hip Left Lower Extremity Weight Bearing Status: WBAT SUBJECTIVE Family training/ conference with patient, grandson, granddaughter, daughter, daughter in law, and granddaughter present as well as PT, OT, and SALES CLERK [employer]. FUNCTIONAL STATUS Bed Mobility Rolling: Minimal Assistance Supine To Sit: Moderate Assistance (HOB elevated, assist LLE) Sit to Supine: Moderate Assistance (for LE management) Scooting: Contact Guard Assistance, Minimal Assistance (use of draw pad to scoot towards EOB) Transfers Sit To Stand: Minimal Assistance, Contact Guard Assistance (Min A when fatigued) Stand To Sit: Contact Guard Assistance Bed to Chair Minimal Assistance Bed To Chair Transfer Type: Stepping Bed To Chair Transfer Equipment: Gait Belt, Wheeled Walker Gait Minimal Assistance Gait Device: Wheeled Walker Gait Distance (feet): 2-3 steps from chair to commode Stairs CURRENT HOSPITAL COURSE Admt to [facility] on 01/11 due to mechanical fall at home resulting in L intertrochanteric hip fracture. s/p ORIF L hip. Relevant Past Medical History: Arthitis, CA, HTN, lymphedema, dementia HOME LIVING Patient Lives With: Family (grandson and his and 1year old child, p-atient's dtr lives nearby) Assistance Available: Part-Time (need to verify with family. Patient poor historian.) Entry To Home: Stairs, With Rail Number Of Stairs Into Home: 4 Number Of Stairs To Bed/Bath: 0 Tub/Shower Type: tub shower with chair Laundry: family completes Equipment Owned: Walker- Wheeled, Lift Chair, Grab Bars- Toilet, Grab Bars- Shower, Shower Chair, Hand Held Shower, Commode- Raised, Emergency Response System PRIOR FUNCTIONAL LEVEL Required Assistance, History of Falls Assistance Required With: Cleaning, Laundry, Meals, Medication Management, Stairs, Safety, Self Care, Shopping, Transportation, Finances Pt questionable historian, pt reports IND with ADLS, family completes IALDs. ambulates with wheeled walker, history of falls (unable to recall an approximate amount however), sleeps in adjustable bed. Uses HOB elevated to get out of bed, uses lift chair during the day. States shw walks in the hallway every hour. THERAPY DIAGNOSIS Reduced mobility-other, Muscle Weakness (generalized) TREATMENT INTERVENTIONS Therapeutic Activity (36164) Timed Code Treatment (minutes): 15 Skilled Treatment Time (minutes): 15 EXERCISE None performed this session, although encouraged family to recommend daily (more content not included)... Normal [facility] SOCIAL WORKon 01-28-2024 SOCIAL WORK HNO ID: [id number] Author: KRYSTYNA FOX LSW Service: Social Work Author Type: Musical String Maker Type: Social Work Filed: 01/28/2024 16:19 Note Text: Summary: SW rounding SOCIAL WORK PROGRESS NOTE Name: Jackelyn Bradshaw Patient says she was quite sore after her appt this am. Says her left leg still causes her problems. Not in pain when in bed. Signature: MICHELA Chanel Date: January 28, 2024 Time: 4:18 PM [facility] THERAPY NTon 01-28-2024 THERAPY NT HNO ID: [id number] Author: LETICIA WALTERS PT Service: Physical Therapy Author Type: Digital Retoucher Type: Therapy (PT/OT/Speech/Resp) Filed: 01/28/2024 16:55 Note Text: Attestation signed by Leticia Walters PT at 01/28/2024 4:55 PM I reviewed and agree with the documentation corresponding to this therapy visit. SIGNATURE: Leticia Walters PT DATE: January 28, 2024 TIME: 4:55 PM Summary: PT Insurance Update Physical Therapy Care Home Facility Treatment Summary SERVICE DATE: 01/28/2024 SERVICE TIME: 1446 to 1508 ROOM: [place] [address] PT 6 Clicks Score: 15 DISCHARGE RECOMMENDATIONS Home PT Recommended Discharge Disposition Comments: Anticipate need for 24 hour care upon dc due to cognitive limitations, and expected limitations post hip fx. Anticipated Discharge Needs: Family Training, Physical Assist at Home, Supervision at Home, Equipment Recommended Discharge Equipment: To Be Determined GOALS Patient will demonstrate progress with functional mobility to allow safe discharge to home with available support and/or physical assistance. Able to Perform HEP with: Supervision Rolling with: Modified Independent Transfer Supine to/from Sit with: Modified Independent Transfer Sit to/from Stand with: Modified Independent Ambulate with: Stand By Assistance Distance: 50 Device: Wheeled Walker Ambulate Up and Down Steps with: Minimal Assistance Number of Steps: 4 Device: Rail, Cane Rehab Potential: Good Progress Toward Goals: Progressing as expected ASSESSMENT Response to Therapy Interventions: Good Participation in Activities Patient fatigued this afternoon due to being out for an appointment earlier this morning. Despite fatigue patient still agreeable to complete supine exercises in her bed. Patient tolerates exercises well however could still benfit from therapy as she needs to build up her left lower extremity and continue to walk on ambulation. Plan for Next Visit: Gait Training, Exercise Instruction/Handout, Sit to Stand Transfers PRECAUTIONS Weight Bearing Restrictions, Bed/Chair Alarm ORIF L hip Left Lower Extremity Weight Bearing Status: WBAT SUBJECTIVE they said everything is healing FUNCTIONAL STATUS Bed Mobility Rolling: Minimal Assistance Supine To Sit: Moderate Assistance (HOB elevated, assist LLE) Sit to Supine: Moderate Assistance (for LE management) Scooting: Contact Guard Assistance, Minimal Assistance (use of draw pad to scoot towards EOB) Transfers Sit To Stand: Minimal Assistance, Contact Guard Assistance (Min A when fatigued) Stand To Sit: Contact Guard Assistance Bed to Chair Minimal Assistance Bed To Chair Transfer Type: Stepping Bed To Chair Transfer Equipment: Gait Belt, Wheeled Walker Gait Minimal Assistance Gait Device: Wheeled Walker Gait Distance (feet): 2-3 steps from chair to commode Stairs CURRENT HOSPITAL COURSE Admt to [facility] on 01/11 due to mechanical fall at home resulting in L intertrochanteric hip fracture. s/p ORIF L hip. Relevant Past Medical History: Arthitis, CA, HTN, lymphedema, dementia HOME LIVING Patient Lives With: Family (grandson and his and 1year old child, p-atient's dtr lives nearby) Assistance Available: Part-Time (need to verify with family. Patient poor historian.) Entry To Home: Stairs, With Rail Number Of Stairs Into Home: 4 Number Of Stairs To Bed/Bath: 0 Tub/Shower Type: tub shower with chair Laundry: family completes Equipment Owned: Walker- Wheeled, Lift Chair, Grab Bars- Toilet, Grab Bars- Shower, Shower Chair, Hand Held Shower, Commode- Raised, Emergency Response System PRIOR FUNCTIONAL LEVEL Required Assistance, History of Falls Assistance Required With: Cleaning, Laundry, Meals, Medication Management, Stairs, Safety, Self Care, Shopping, Transportation, Finances Pt questionable historian, pt reports IND with ADLS, family completes IALDs. ambulates with wheeled walker, history of falls (unable to recall an approximate amount however), sleeps in adjustable bed. Uses HOB elevated to get out of bed, uses lift chair during the day. States shw walks in the hallway every hour. THERAPY DIAGNOSIS Reduced mobility-other, Muscle Weakness (generalized) TREATMENT INTERVENTIONS Therapeutic Exercise (58307) Timed Code Treatment (minutes): 22 Skilled Treatment Time (minutes): 22 EXERCISE Exercises Exercise Performed: Ankle Pumps, Quad Sets, Glut Sets, Heel Slides, SAQ, SLR, Hip Abduction Ankle Pumps (number of reps): 20 Quad Sets (number of reps): 10 Glut Sets (number of reps): 20 Heel Slides ( (more content not included)... Normal [facility] THERAPY NT HNO ID: [id number] Author: BI GARCIA OTR/L Service: ? Author Type: Occupational Therapist Type: Therapy (PT/OT/Speech/Resp) Filed: 01/28/2024 14:00 Note Text: Occupational Therapy Care Home Facility Treatment Summary SERVICE DATE: 01/28/2024 SERVICE TIME: 1302 to 1346 ROOM: [place] [address] OT Clicks Score: 19 DISCHARGE RECOMMENDATIONS Home OT (vs discharge to SENIOR CARE/ECF) Recommended Discharge Disposition Comments: Pt's discharge disposition is dependent upon progress made and family ability to provide necessary assistance Anticipated Discharge Needs: Family Training, Physical Assist at Home, Supervision at Home, Equipment Recommended Discharge Equipment: To Be Determined GOALS Patient will demonstrate progress with self-care, cognitive and/or coping needs identified to allow safe discharge to home with available support and/or physical assistance. Grooming with: Set Up Upper Body Bathing with: Set Up Upper Body Dressing with: Set Up Lower Body Bathing with: Minimal Assistance Lower Body Dressing with: Moderate Assistance Toilet Hygiene with: Moderate Assistance Chair Transfer with: Contact Guard Assistance Toilet Transfer with: Contact Guard Assistance Shower Transfer with: Minimal Assistance Tolerate (minutes of functional activity): 45 Functional Activity with: Contact Guard Assistance Progress Toward Goals: Progressing as expected Rehab Potential: Good ASSESSMENT Response to Therapy Interventions: Cognitive Status Improvement, Good Participation in Activities, Improved Tolerance for Activity, Requires Additional Time to Complete Activities Pt improving with LB dressing while seated EOB with use of AE. Max VC's requiring for problem solving to facilitate increased (I) with good carryover from pt. Pt requires increased time and effort to complete tasks d/t decreased endurance and strength. Pt would benefit from continued skilled OT services to address remaining ADL deficits, fxl transfers with decreased assist, UE strength, and activity tolerance for fxl tasks for increased safefy and decreased risk of falls. Plan for Next Visit: Bathing Training, Bed Mobility, Chair/Commode Transfer Training, Dressing Training, Exercise Instruction/Handout, Grooming Training, Sit to Stand Transfers, Standing Balance, Standing Tolerance, Toileting Instruction PRECAUTIONS Weight Bearing Restrictions, Bed/Chair Alarm ORIF L hip Left Lower Extremity Weight Bearing Status: WBAT SUBJECTIVE Pt agreeable to OT tx session with no complaints at this time FUNCTIONAL STATUS Activities of Daily Living Assist Level Additional Information Feeding Set Up Grooming Set Up, Additional Information Bathing Upper Body Set Up, Additional Information Bathing Lower Body Moderate Assistance, Additional Information Dressing Upper Body Set Up, Additional Information Dressing Lower Body Minimal Assistance sitting EOB with use of AE including dressing stick, shuttle route vehicle operator, and sock aid. Pt required Min A for donning socks completely for pulling up over gracia hose. Pt thread BLE's into sweatpants with use of shuttle route vehicle operator (I) and pulled up to below hips with CGA in standing, though unable to don over hips completely d/t pants not fitting appropriately. Max VC's Toileting Maximal Assistance, Additional Information Instrumental Activities of Daily Living Assist Level Additional Information Meal/Beverage Prep Total Assistance Cleaning Total Assistance Laundry Total Assistance Medication Management with Strategies Total Assistance Mobility Assist Level Additional Information Bed Mobility Rolling: Minimal Assistance Supine To Sit: Minimal Assistance use of leg math and science instructor; Min A required for getting LLE over lip of edge of mattress and initiating raising trunk to upright position Sit To Supine: Moderate Assistance assist for managing BLE's into bed Sit to Stand Contact Guard Assistance from EOB to FWW Stand to Sit Contact Guard Assistance Bed to Chair Moderate Assistance, Additional Information Bed To Chair Transfer Type: Stepping Bed To Chair Transfer Equipment: Wheeled Walker, Gait Belt Toilet/Commode Moderate Assistance, Additional Information Shower Functional Mobility Moderate Assistance, Additional Information Functional Mobility Device: Wheeled Walker CURRENT HOSPITAL COURSE Admt to [facility] on 01/11 due to mechanical fall at home resulting in L intertrochanteric hip fracture. s/p ORIF L hip. Relevant Past Medical History: Arthitis, CA, HTN, lymphedema, dementia HOME LIVING Patient Lives With: Family (grandson and his and 1year old child, p-atient's dtr lives nearby) Assistance Available: Part-Time (need to verify with family. Patient poor historian.) Entry To Home: Stairs, With Rail Number Of Stairs Into Home: 4 Number Of Stairs To Bed/Bath: 0 Tub/Shower Type: tub shower with chair Laundry: family completes Equipment Owned: Walker- Wheeled, (more content not included)... Normal [facility] Basic metabolic 2000 panelon 01-27-2024 Anion gap [Moles/Vol] 7 mmol/L Low 9-18 [facility] Comment on above: Order Comment: Speci men Type: BLOOD SPECIMENOrdering Facility: [facility] Address: [address] [place] [address] Performed By: #### 2 4321-2 ####[facility] LABCLIA [id number] [place] [address] [place] Calcium [Mass/Vol] 8.2 mg/dL Low 8.5-10.2 [facility] Comment on above: Order Comment: Speci men Type: BLOOD SPECIMENOrdering Facility: [facility] Address: [address] [place] [address] Performed By: #### 2 4321-2 ####[facility] LABCLIA [id number] [place] [address] [place] Chloride [Moles/Vol] 110 mmol/L High 97-105 [facility] Comment on above: Order Comment: Speci men Type: BLOOD SPECIMENOrdering Facility: [facility] Address: [address] [place] [address] Performed By: #### 2 4321-2 ####[facility] LABCLIA [id number] [place] [address] [place] CO2 [Moles/Vol] 26 mmol/L Normal 22-30 [facility] Comment on above: Order Comment: Speci men Type: BLOOD SPECIMENOrdering Facility: [facility] Address: [address] [place] [address] Performed By: #### 2 4321-2 ####[facility] LABCLIA [id number] [place] [address] [place] Creatinine [Mass/Vol] 1.20 mg/dL High 0.58-0.96 [facility] Comment on above: Order Comment: Hilary ocampo Type: BLOOD SPECIMENOrdering Facility: [facility] Address: [address] [place] [address] Performed By: #### 2 4321-2 ####[facility] LABCLIA [id number] [place] [id number] [facility] Creatinine and Glomerular filtration rate.predicted panel (S/P/Bld) 45 mL/min/1.73m??? Low >=60 [facility] Comment on above: Order Comment: Hilary ocampo Type: BLOOD SPECIMENOrdering Facility: [facility] Address: [address] [place] [address] Result Comment: Patience mated Glomerular Filtration Rate (eGFR) is calculated using the 2020 CKD-EPI creatinine equation. This equation utilizes serum creatinine, sex, and age as parameters. The creatinine assay has traceable calibration to isotope dilution-mass spectrometry. Refer to KDIGO guidelines for clinical interpretation. In patients with unstable renal function, e.g. those with acute kidney injury, the eGFR may not accurately reflect actual GFR. Performed By: #### 2 4321-2 ####[facility] LABCLIA [id number] [place] [id number] [place] Glucose [Mass/Vol] 86 mg/dL Normal 74-99 [facility] Comment on above: Order Comment: Hilary ocampo Type: BLOOD SPECIMENOrdering Facility: [facility] Address: [address] [place] [address] Result Comment: The [place] Diabetes Association (ADA) provides guidance for cutoff values for fasting glucose and random glucose. The ADA defines fasting as no caloric intake for at least 8 hours. Fasting plasma glucose results between 100 to 125 mg/dL indicate increased risk for diabetes (prediabetes). Fasting plasma glucose results greater than or equal to 126 mg/dL meet the criteria for diagnosis of diabetes. In the absence of unequivocal hyperglycemia, results should be confirmed by repeat testing. In a patient with classic symptoms of hyperglycemia or hyperglycemic crisis, random plasma glucose results greater than or equal to 200 mg/dL meet the criteria for diagnosis of diabetes. Reference: Standards of Medical Care in Diabetes 2016, [place] Diabetes Association. Diabetes Care. 2016.39(Suppl 1). Performed By: #### 2 4321-2 ####[facility] LABCLIA [id number] [place] [address] [place] Potassium [Moles/Vol] 4.3 mmol/L Normal 3.7-5.1 [facility] Comment on above: Order Comment: Speci men Type: BLOOD SPECIMENOrdering Facility: [facility] Address: [address] [place] [address] Performed By: #### 2 4321-2 ####[facility] [employer] LABCLIA [id number] [place] [address] [place] [facility] Sodium [Moles/Vol] 143 mmol/L Normal 136-144 [facility] Comment on above: Order Comment: Speci men Type: BLOOD SPECIMENOrdering Facility: [facility] Address: [address] [place] [address] Performed By: #### 2 4321-2 ####[facility] LABCLIA [id number] [place] [address] [place] Urea nitrogen [Mass/Vol] 24 mg/dL High 7-21 [facility] Comment on above: Order Comment: Speci men Type: BLOOD SPECIMENOrdering Facility: [facility] Address: [address] [place] [address] Performed By: #### 2 4321-2 ####[facility] LABCLIA [id number] [place] [address] [facility] [place] CBC panel Auto (Bld)on 01-26 Erythrocyte distribution width (RBC) [Ratio] 14.6 % Normal 11.5-15.0 [facility] Comment on above: Order Comment: Speci men Type: BLOOD SPECIMENOrdering Facility: [facility] Address: [address] [place] [address] Performed By: #### 5 8410-2 ####[facility] [employer] LABCLIA [id number] [place] [address] [place] Hematocrit (Bld) [Volume fraction] 25.4 % Low 36.0-46.0 [facility] Comment on above: Order Comment: Speci men Type: BLOOD SPECIMENOrdering Facility: [facility] Address: [address] [place] [address] Performed By: #### 5 8410-2 ####[facility] LABCLIA [id number] [place] [address] [facility] [place] Hemoglobin (Bld) [Mass/Vol] 7.9 g/dL Low 11.5-15.5 [facility] Comment on above: Order Comment: Speci men Type: BLOOD SPECIMENOrdering Facility: [facility] Address: [address] [place] [address] Performed By: #### 5 8410-2 ####[facility] LABCLIA [id number] [place] [id number] [facility] MCH (RBC) [Entitic mass] 32.1 pg Normal 26.0-34.0 [facility] Comment on above: Order Comment: Speci men Type: BLOOD SPECIMENOrdering Facility: [facility] Address: [address] [place] [address] Performed By: #### 5 8410-2 ####[facility] LABCLIA [id number] [place] [address] [place] MCHC (RBC) [Mass/Vol] 31.1 g/dL Normal 30.5-36.0 [facility] Comment on above: Order Comment: Speci men Type: BLOOD SPECIMENOrdering Facility: [facility] Address: [address] [place] [address] Performed By: #### 5 8410-2 ####[facility] LABCLIA [id number] [place] [address] [facility] [place] MCV (RBC) [Entitic vol] 103.3 fL High 80.0-100.0 [facility] Comment on above: Order Comment: Speci men Type: BLOOD SPECIMENOrdering Facility: [facility] Address: [address] [place] [address] Performed By: #### 5 8410-2 ####[facility] LABCLIA [id number] [facility] [address] [place] Platelet mean volume (Bld) [Entitic vol] 9.9 fL Normal 9.0-12.7 [facility] Comment on above: Order Comment: Speci men Type: BLOOD SPECIMENOrdering Facility: [facility] Address: [address] [place] [address] Performed By: #### 5 8410-2 ####[facility] LABCLIA [id number] [facility] [address] [place] Platelets (Bld) [#/Vol] 277 10*3/uL Normal 150-400 [facility] Comment on above: Order Comment: Speci men Type: BLOOD SPECIMENOrdering Facility: [facility] Address: [address] [place] [address] Performed By: #### 5 8410-2 ####[facility] LABCLIA [id number] [facility] [address] [place] RBC (Bld) [#/Vol] 2.46 10*6/uL Low 3.90-5.20 [facility] Comment on above: Order Comment: Speci men Type: BLOOD SPECIMENOrdering Facility: [facility] Address: [address] [place] [address] Performed By: #### 5 8410-2 ####[facility] LABCLIA [id number] [facility] [address] [facility] [place] WBC (Bld) [#/Vol] 7.62 10*3/uL Normal 3.70-11.00 [facility] Comment on above: Order Comment: Speci men Type: BLOOD SPECIMENOrdering Facility: [facility] Address: [address] [place] [address] Performed By: #### 5 8410-2 ####[facility] LABCLIA [id number] [place] [address] [place] Folate SerPl-mCncon 01-27-20 Folate [Mass/Vol] ng/mL Normal >4.7 [facility] Comment on above: Order Comment: Speci men Type: BLOOD SPECIMEN [facility] Address: [address] [place] [address] Result Comment: A re sult of > 20 ng/mL is not necessarily indicative of a pathologic or treatable condition: it reflects a limitation of the test methodology. Assay reference range: 4.8 to 24.2 ng/mL. Suitable for detection of folate deficiency. Reference: Folate III (Folate III) [package insert V 1.0 [place]]. [facility], [place], [place]: August 2015. Performed By: #### 2 132-9, 25544-6, 2283-8 #### [facility] CLIA [id number] [address] [place] Iron and Iron binding capaci ty panelon 01-27-2024 Iron [Mass/Vol] 68 ug/dL Normal 41-186 [facility] Comment on above: Order Comment: Speci men Type: BLOOD SPECIMEN [facility] Address: [address] [place] [address] Performed By: #### 2 132-9, 53839-5, 8 #### [facility] CLIA [id number] [address] [place] Iron binding capacity [Mass/Vol] 264 ug/dL Normal 232-386 [facility] Comment on above: Order Comment: Speci men Type: BLOOD SPECIMEN [facility] Address: [address] [place] [address] Performed By: #### 2 132-9, 37599-5, 8 #### [facility] CLIA [id number] [address] Iron saturation [Mass fraction] 25.8 % Normal 15.0-57.0 [facility] Comment on above: Order Comment: Speci men Type: BLOOD SPECIMEN [facility] Address: [address] [place] [id number] Performed By: #### 2 132-9, 47460-6, 2284-8 #### [facility] [id number] [address] SOCIAL WORKon 01-27-2024 SOCIAL WORK HNO ID: [id number] Author: KRYSTYNA FOX LSW Service: Social Work Author Type: Musical String Maker Type: Social Work Filed: 01/27/2024 18:09 Note Text: Summary: SW rounding SOCIAL WORK PROGRESS NOTE Name: Jackelyn Bradshaw Told patient about conference/family training on 01/28. Patient was aware. She says her main concern is her left knee. Says it gives out when she tries to walk. Signature: MICHELA Chanel Date: January 27, 2024 Time: 12:15 PM Normal [facility] SOCIAL WORK HNO ID: [id number] Author: KRYSTYNA FOX LSW Service: Social Work Author Type: Musical String Maker Type: Social Work Filed: 01/27/2024 17:18 Note Text: Summary: Team Rounds MULTIDISCIPLINARY ROUNDS SERVICE DATE: 01/27/2024 ADMISSION DATE: 01/17/2024 SERVICE TIME: 12:30 PM ANTICIPATED D/C DATE: 3-4 wks Problem List: ACTIVE PROBLEM LIST Htn (Hypertension) Impaired Ambulation Acute kidney injury superimposed on CKD (HCC) (HCC) Pelvic Joint Pain, Left Cancer of Breast, Intraductal, Left Generalized Weakness Fall Tremors of Nervous System Declining Functional Status Obesity, Class I, Bmi 30-34.9 Aftercare Status Post Hip Surgery Dementia (Hcc) Anemia Urinary Retention Attendees Present at Rounds: CM, DRYING ROOM OPERATOR, NM, OT, PT, SW Needs Discussed on Rounds: Discharge Needs Follow Up Appointments Mobility Plan of Care Anticipated Discharge Disposition: Home with Home Health Last Vitals: BP 161/61 Pulse 77 Temp (Src) 97.9 (Oral) Resp 16 Ht 5' 3 (1.60m) Wt 184 lb 1.4 oz (83.5kg) SpO2 94% BMI 32.62 kg/(m2). O2 Therapy: Room Air SW: Appt 01/27 at 8:30. [facility]. W/C transport. Conference and family training 01/28 11:00. DC to home with [facility]. PT: Making progress with good potential to continue to improve. Would really like to get more time with patient to continue her progress. OT: Improved slow progress. Barriers, lower body ADLs and toileting. Will need a 3:1 commode. Nursing: DOCUMENTED BY: MICHELA Chanel PATIENT NAME: Jackelyn Bradshaw DATE: January 27, 2024 TIME: 11:06 AM CSN: [id number] [facility] THERAPY NTon 01-27-2024 THERAPY NT HNO ID: [id number] Author: ELLE HOOVER PT Service: Physical Therapy Author Type: Digital Retoucher Type: Therapy (PT/OT/Speech/Resp) Filed: 01/27/2024 16:02 Note Text: Attestation signed by Elle Hoover, PT at 01/27/2024 4:02 PM I reviewed and agree with the documentation corresponding to this therapy visit. SIGNATURE: Elle Hoover, PT DATE: January 27, 2024 TIME: 4:02 PM Physical Therapy Care Home Facility Treatment Summary SERVICE DATE: 01/27/2024 SERVICE TIME: 1425 to 1503 ROOM: [place] [address] PT 6 Clicks Score: 16 DISCHARGE RECOMMENDATIONS Home PT Recommended Discharge Disposition Comments: Anticipate need for 24 hour care upon dc due to cognitive limitations, and expected limitations post hip fx. Anticipated Discharge Needs: Family Training, Physical Assist at Home, Supervision at Home, Equipment Recommended Discharge Equipment: To Be Determined GOALS Patient will demonstrate progress with functional mobility to allow safe discharge to home with available support and/or physical assistance. Able to Perform HEP with: Supervision Rolling with: Modified Independent Transfer Supine to/from Sit with: Modified Independent Transfer Sit to/from Stand with: Modified Independent Ambulate with: Stand By Assistance Distance: 50 Device: Wheeled Walker Ambulate Up and Down Steps with: Minimal Assistance Number of Steps: 4 Device: Rail, Cane Rehab Potential: Good Progress Toward Goals: Progressing as expected ASSESSMENT Response to Therapy Interventions: Good Participation in Activities Patient has difficulty taking steps this session as she is unable to clear her left lower extremity and requires cues to push through her arms. Plan for Next Visit: Gait Training, Exercise Instruction/Handout, Sit to Stand Transfers PRECAUTIONS Weight Bearing Restrictions, Bed/Chair Alarm ORIF L hip Left Lower Extremity Weight Bearing Status: WBAT SUBJECTIVE Patient denies any pain and is agreeable to therapy FUNCTIONAL STATUS Bed Mobility Rolling: Minimal Assistance Supine To Sit: Moderate Assistance (HOB elevated, assist LLE) Sit to Supine: Moderate Assistance (for LE management) Scooting: Contact Guard Assistance, Minimal Assistance (use of draw pad to scoot towards EOB) Transfers Sit To Stand: Minimal Assistance, Contact Guard Assistance (Min A when fatigued) Stand To Sit: Contact Guard Assistance Bed to Chair Minimal Assistance Bed To Chair Transfer Type: Stepping Bed To Chair Transfer Equipment: Gait Belt, Wheeled Walker Gait Minimal Assistance Gait Device: Wheeled Walker General Deviations/Observation s: Robyn decreased, Difficulty changing direction/turning, Flexed trunk posture, Non-functional gait speed, Shuffling Gait, Step length decreased Gait Distance (feet): 2-3 steps from chair to commode Stairs CURRENT HOSPITAL COURSE Admt to [facility] on 01/11 due to mechanical fall at home resulting in L intertrochanteric hip fracture. s/p ORIF L hip. Relevant Past Medical History: Arthitis, CA, HTN, lymphedema, dementia HOME LIVING Patient Lives With: Family (grandson and his and 1year old child, p-atient's dtr lives nearby) Assistance Available: Part-Time (need to verify with family. Patient poor historian.) Entry To Home: Stairs, With Rail Number Of Stairs Into Home: 4 Number Of Stairs To Bed/Bath: 0 Tub/Shower Type: tub shower with chair Laundry: family completes Equipment Owned: Walker- Wheeled, Lift Chair, Grab Bars- Toilet, Grab Bars- Shower, Shower Chair, Hand Held Shower, Commode- Raised, Emergency Response System PRIOR FUNCTIONAL LEVEL Required Assistance, History of Falls Assistance Required With: Cleaning, Laundry, Meals, Medication Management, Stairs, Safety, Self Care, Shopping, Transportation, Finances Pt questionable historian, pt reports IND with ADLS, family completes IALDs. ambulates with wheeled walker, history of falls (unable to recall an approximate amount however), sleeps in adjustable bed. Uses HOB elevated to get out of bed, uses lift chair during the day. States shw walks in the hallway every hour. THERAPY DIAGNOSIS Reduced mobility-other, Muscle Weakness (generalized) TREATMENT INTERVENTIONS Therapeutic Exercise (69145), Therapeutic Activity (32994) Timed Code Treatment (minutes): 38 Skilled Treatment Time (minutes): 38 EXERCISE Exercises Exercise Performed: Ankle Pumps, Quad Sets, Glut Sets, Heel Slides, SAQ, LAQ, Hip Abduction Ankle Pumps (number of reps): 20 Quad Sets (number of reps): 10 Glut Sets (number of reps): 20 Heel Slides (number of reps): 10 SAQ (number of reps): 10 LAQ (number of reps): 10 Hip Abduction (number of reps): 10 Exercise: STS x5 TRAINING AND EDUCATION PROVI (more content not included)... Normal [facility] THERAPY NT HNO ID: [id number] Author: ISABELLA SANCHEZ OTR/Lashae Service: Occupational Therapy Author Type: Occupational Therapist Type: Therapy (PT/OT/Speech/Resp) Filed: 01/27/2024 15:06 Note Text: Occupational Therapy Care Home Facility Treatment Summary SERVICE DATE: 01/27/2024 SERVICE TIME: 1305 to 1345 ROOM: [place] [address] OT 6 Clicks Score: 18 DISCHARGE RECOMMENDATIONS Home OT (vs discharge to [facility]) Recommended Discharge Disposition Comments: Pt's discharge disposition is dependent upon progress made and family ability to provide necessary assistance Anticipated Discharge Needs: Family Training, Physical Assist at Home, Supervision at Home, Equipment Recommended Discharge Equipment: To Be Determined GOALS Patient will demonstrate progress with self-care, cognitive and/or coping needs identified to allow safe discharge to home with available support and/or physical assistance. Grooming with: Set Up Upper Body Bathing with: Set Up Upper Body Dressing with: Set Up Lower Body Bathing with: Minimal Assistance Lower Body Dressing with: Moderate Assistance Toilet Hygiene with: Moderate Assistance Chair Transfer with: Contact Guard Assistance Toilet Transfer with: Contact Guard Assistance Shower Transfer with: Minimal Assistance Tolerate (minutes of functional activity): 45 Functional Activity with: Contact Guard Assistance Progress Toward Goals: Progressing as expected Rehab Potential: Good ASSESSMENT Response to Therapy Interventions: Cognitive Status Improvement, Good Participation in Activities, Improved Tolerance for Activity, Requires Additional Time to Complete Activities, Multiple Ongoing Medical Issues This patient demonstrated significant progress in her ability to problem solve use of adaptive equipment in lower body dressing tasks including selecting correct equipment for each task. Pt also improved her sit to stand skill to CGA today and increased static standing tolerance to 4 minutes, which is functional for caregiver to assist with ADL tasks of toileting hygiene, standing aspects of bathing, and clothing mgt in dressing tasks as needed. Pt is expected to improve further with functional mobility skills including toilet transfers. Family training/care conference is to be held on 01/29/2024 to address trainng in how to properly assist pt with ADL/mobility skills and to review equipment needs for home. Will continue with ADL training session on 01/28/2024. Plan for Next Visit: Bathing Training, Bed Mobility, Chair/Commode Transfer Training, Dressing Training, Energy Conservation, Grooming Training, Sit to Stand Transfers, Standing Balance, Standing Tolerance, Toileting Instruction PRECAUTIONS Weight Bearing Restrictions, Bed/Chair Alarm ORIF L hip Left Lower Extremity Weight Bearing Status: WBAT SUBJECTIVE Pt stated that her family will be able to assist her at home FUNCTIONAL STATUS Activities of Daily Living Assist Level Additional Information Feeding Set Up Grooming Set Up, Additional Information Bathing Upper Body Set Up, Additional Information Bathing Lower Body Moderate Assistance, Additional Information Dressing Upper Body Set Up, Additional Information Dressing Lower Body Minimal Assistance, Additional Information improved problem solving skills with use of adaptive equipment with pt needed SBA and occasional verbal cues for donning/doffing socks, briefs, and pants over feet while seated in chair Toileting Maximal Assistance, Additional Information Instrumental Activities of Daily Living Assist Level Additional Information Meal/Beverage Prep Total Assistance Cleaning Total Assistance Laundry Total Assistance Medication Management with Strategies Total Assistance Mobility Assist Level Additional Information Bed Mobility Rolling: Minimal Assistance Supine To Sit: Maximal Assistance Sit To Supine: Maximal Assistance Sit to Stand Contact Guard Assistance, Additional Information from chair Stand to Sit Contact Guard Assistance proper hand placement without cueing Bed to Chair Moderate Assistance, Additional Information Bed To Chair Transfer Type: Stepping Bed To Chair Transfer Equipment: Wheeled Walker, Gait Belt Toilet/Commode Moderate Assistance, Additional Information Shower Functional Mobility Moderate Assistance, Additional Information Functional Mobility Device: Wheeled Walker CURRENT HOSPITAL COURSE Admt to [facility] on 01/11 due to mechanical fall at home resulting in L intertrochanteric hip fracture. s/p ORIF L hip. Relevant Past Medical History: Arthitis, [place], HTN, lymphedema, dementia HOME LIVING Patient Lives With: Family (grandson and his and 1year old child, p-atient's dtr lives nearby) Assistance Available: Part-Time (need to verify with family. Patient poor historian.) Entry To Home: Stairs, With Rail Number Of Stairs Into Home: 4 Number Of Stairs To Bed/Bath: 0 Tub/Shower Type: (more content not included)... Normal [facility] THERAPY NT HNO ID: [id number] Author: ELLE HOOVER PT Service: Physical Therapy Author Type: Digital Retoucher Type: Therapy (PT/OT/Speech/Resp) Filed: 01/27/2024 12:06 Note Text: Attestation signed by Elle Hoover PT at 01/27/2024 12:06 PM I reviewed and agree with the documentation corresponding to this therapy visit. SIGNATURE: Elle Hoover PT DATE: January 27, 2024 TIME: 12:06 PM Physical Therapy Care Home Facility Treatment Summary SERVICE DATE: 01/27/2024 SERVICE TIME: 845 ROOM: [place] [address] PT 6 Clicks Score: 16 DISCHARGE RECOMMENDATIONS Home PT Recommended Discharge Disposition Comments: Anticipate need for 24 hour care upon dc due to cognitive limitations, and expected limitations post hip fx. Anticipated Discharge Needs: Family Training, Physical Assist at Home, Supervision at Home, Equipment Recommended Discharge Equipment: To Be Determined GOALS Patient will demonstrate progress with functional mobility to allow safe discharge to home with available support and/or physical assistance. Able to Perform HEP with: Supervision Rolling with: Modified Independent Transfer Supine to/from Sit with: Modified Independent Transfer Sit to/from Stand with: Modified Independent Ambulate with: Stand By Assistance Distance: 50 Device: Wheeled Walker Ambulate Up and Down Steps with: Minimal Assistance Number of Steps: 4 Device: Rail, Cane Rehab Potential: Good Progress Toward Goals: Progressing as expected ASSESSMENT Response to Therapy Interventions: Good Participation in Activities Patient willing to attempt ambulation this session however she struggles some due to pain and require to have the chair moved closer to her before sitting. Plan for Next Visit: Gait Training, Exercise Instruction/Handout, Sit to Stand Transfers PRECAUTIONS Weight Bearing Restrictions, Bed/Chair Alarm ORIF L hip Left Lower Extremity Weight Bearing Status: WBAT SUBJECTIVE I'm doing fine FUNCTIONAL STATUS Bed Mobility Rolling: Minimal Assistance Supine To Sit: Moderate Assistance (HOB elevated, assist LLE) Sit to Supine: Moderate Assistance (for LE management) Scooting: Contact Guard Assistance, Minimal Assistance (use of draw pad to scoot towards EOB) Transfers Sit To Stand: Contact Guard Assistance Stand To Sit: Contact Guard Assistance Bed to Chair Minimal Assistance Bed To Chair Transfer Type: Stepping Bed To Chair Transfer Equipment: Gait Belt, Wheeled Walker Gait Minimal Assistance Gait Device: Wheeled Walker General Deviations/Observation s: Robyn decreased, Difficulty changing direction/turning, Flexed trunk posture, Non-functional gait speed, Shuffling Gait, Step length decreased Gait Distance (feet): 5 steps x 2 Stairs CURRENT HOSPITAL COURSE Admt to [facility] on 01/11 due to mechanical fall at home resulting in L intertrochanteric hip fracture. s/p ORIF L hip. Relevant Past Medical History: Arthitis, [place], HTN, lymphedema, dementia HOME LIVING Patient Lives With: Family (grandson and his and 1year old child, p-atient's dtr lives nearby) Assistance Available: Part-Time (need to verify with family. Patient poor historian.) Entry To Home: Stairs, With Rail Number Of Stairs Into Home: 4 Number Of Stairs To Bed/Bath: 0 Tub/Shower Type: tub shower with chair Laundry: family completes Equipment Owned: Walker- Wheeled, Lift Chair, Grab Bars- Toilet, Grab Bars- Shower, Shower Chair, Hand Held Shower, Commode- Raised, Emergency Response System PRIOR FUNCTIONAL LEVEL Required Assistance, History of Falls Assistance Required With: Cleaning, Laundry, Meals, Medication Management, Stairs, Safety, Self Care, Shopping, Transportation, Finances Pt questionable historian, pt reports IND with ADLS, family completes IALDs. ambulates with wheeled walker, history of falls (unable to recall an approximate amount however), sleeps in adjustable bed. Uses HOB elevated to get out of bed, uses lift chair during the day. States shw walks in the hallway every hour. THERAPY DIAGNOSIS Reduced mobility-other, Muscle Weakness (generalized) TREATMENT INTERVENTIONS Therapeutic Exercise (29763), Gait Training (98374), Therapeutic Activity (65542) Timed Code Treatment (minutes): 40 Skilled Treatment Time (minutes): 40 EXERCISE Exercises Exercise Performed: Ankle Pumps, Quad Sets, Glut Sets, Heel Slides, SAQ, LAQ, SLR, Hip Abduction Ankle Pumps (number of reps): 20 Quad Sets (number of reps): 10 Glut Sets (number of reps): 20 Heel Slides (number of reps): 10 SAQ (number of reps): 10 LAQ (number of reps): 10 SLR (number of reps): 10 (assist LLE) Hip Abduction (number of reps): 10 TRAINING AND EDUCATION PROVIDED Bed Mobility, Exercise Progr (more content not included)... Normal [facility] Vit B12 SerPl-ncon 024 Cobalamin (Vitamin B12) [Mass/Vol] 1433 pg/mL High 232-1245 [facility] Comment on above: Order Comment: Speci men Type: BLOOD SPECIMENOrdering Facility: [facility] Address: [address] [place] [address] Performed By: #### 2 [id number], 61467-1, 2284-8 ####[facility] LABORATORYCLIA [id number] [place] [address] [place] SOCIAL WORKon 01-26-2024 SOCIAL WORK HNO ID: [id number] Author: KRYSTYNA FOX LSW Service: Social Work Author Type: Musical String Maker Type: Social Work Filed: 01/26/2024 10:11 Note Text: Summary: Family Call/conference/traini ng SOCIAL WORK PROGRESS NOTE Name: Jackelyn Bradshaw Scheduled Patient Care Conference/Family Training with patient's daughter Tez tentatively for 01/28 at 1330. Tez to check with patient's sulbu-vd-buf Juanis. 01/28 is best day for daughter this week. 1011: Tez called back and said she needs to change time on 01/28. She can be here at 1100. Signature: MICHELA Chanel Date: January 26, 2024 Time: 9:11 AM Normal [facility] THERAPY NTon 01-26-2024 THERAPY NT HNO ID: [id number] Author: ELLE HOOVER PT Service: Physical Therapy Author Type: Digital Retoucher Type: Therapy (PT/OT/Speech/Resp) Filed: 01/26/2024 15:15 Note Text: Attestation signed by Elle Hoover PT at 01/26/2024 3:15 PM I reviewed and agree with the documentation corresponding to this therapy visit. SIGNATURE: Elle Hoover PT DATE: January 26, 2024 TIME: 3:15 PM Physical Therapy Care Home Facility Treatment Summary SERVICE DATE: 01/26/2024 SERVICE TIME: 1418 to 1454 ROOM: [place] [address] PT 6 Clicks Score: 16 DISCHARGE RECOMMENDATIONS Home PT Recommended Discharge Disposition Comments: Anticipate need for 24 hour care upon dc due to cognitive limitations, and expected limitations post hip fx. Anticipated Discharge Needs: Family Training, Physical Assist at Home, Supervision at Home, Equipment Recommended Discharge Equipment: To Be Determined GOALS Patient will demonstrate progress with functional mobility to allow safe discharge to home with available support and/or physical assistance. Able to Perform HEP with: Supervision Rolling with: Modified Independent Transfer Supine to/from Sit with: Modified Independent Transfer Sit to/from Stand with: Modified Independent Ambulate with: Stand By Assistance Distance: 50 Device: Wheeled Walker Ambulate Up and Down Steps with: Minimal Assistance Number of Steps: 4 Device: Rail, Cane Rehab Potential: Good Progress Toward Goals: Progressing as expected ASSESSMENT Response to Therapy Interventions: Good Participation in Activities Patient agreeable to exercise and is willing to attempt ambulation. Patient takes about 5 very short shuffled steps before she feels that she needs to sit. Plan for Next Visit: Gait Training, Exercise Instruction/Handout PRECAUTIONS Weight Bearing Restrictions, Bed/Chair Alarm ORIF L hip Left Lower Extremity Weight Bearing Status: WBAT SUBJECTIVE she just gave me my pain medicine FUNCTIONAL STATUS Bed Mobility Rolling: Minimal Assistance Supine To Sit: Moderate Assistance Sit to Supine: Moderate Assistance (for LE management) Scooting: Contact Guard Assistance Transfers Sit To Stand: Minimal Assistance (min assist due to fatigue) Stand To Sit: Contact Guard Assistance Bed to Chair Contact Guard Assistance Bed To Chair Transfer Type: Stepping Bed To Chair Transfer Equipment: Gait Belt, Wheeled Walker Gait Contact Guard Assistance Gait Device: Wheeled Walker General Deviations/Observation s: Shuffling Gait, Flexed trunk posture, Difficulty changing direction/turning, Non-functional gait speed Gait Distance (feet): 5 steps Stairs CURRENT HOSPITAL COURSE Admt to [facility] on 01/11 due to mechanical fall at home resulting in L intertrochanteric hip fracture. s/p ORIF L hip. Relevant Past Medical History: Arthitis, CA, HTN, lymphedema, dementia HOME LIVING Patient Lives With: Family (grandson and his and 1year old child, peter'david dtr lives nearby) Assistance Available: Part-Time (need to verify with family. Patient poor historian.) Entry To Home: Stairs, With Rail Number Of Stairs Into Home: 4 Number Of Stairs To Bed/Bath: 0 Tub/Shower Type: tub shower with chair Laundry: family completes Equipment Owned: Walker- Wheeled, Lift Chair, Grab Bars- Toilet, Grab Bars- Shower, Shower Chair, Hand Held Shower, Commode- Raised, Emergency Response System PRIOR FUNCTIONAL LEVEL Required Assistance, History of Falls Assistance Required With: Cleaning, Laundry, Meals, Medication Management, Stairs, Safety, Self Care, Shopping, Transportation, Finances Pt questionable historian, pt reports IND with ADLS, family completes IALDs. ambulates with wheeled walker, history of falls (unable to recall an approximate amount however), sleeps in adjustable bed. Uses HOB elevated to get out of bed, uses lift chair during the day. States shw walks in the hallway every hour. THERAPY DIAGNOSIS Reduced mobility-other, Muscle Weakness (generalized) TREATMENT INTERVENTIONS Therapeutic Exercise (24004), Gait Training (67153) Timed Code Treatment (minutes): 36 Skilled Treatment Time (minutes): 36 EXERCISE Exercises Exercise Performed: Ankle Pumps, Quad Sets, Glut Sets, Heel Slides, SAQ, LAQ, Hip Abduction Ankle Pumps (number of reps): 20 Quad Sets (number of reps): 10 Glut Sets (number of reps): 20 Heel Slides (number of reps): 10 SAQ (number of reps): 10 LAQ (number of reps): 10 Hip Abduction (number of reps): 10 TRAINING AND EDUCATION PROVIDED Gait Pattern, Reduction of Deviations, Falls Prevention, Expected Functional Level, Exercise Program, Benefits of In-Hospital Mobility, Role of Physical Therapy THERAPEUTIC SKILLS USED Activity Dosing, Cuing (more content not included)... Normal [facility] THERAPY NT HNO ID: [id number] Author: ELLE HOOVER, PT Service: Physical Therapy Author Type: Physical Therapist Type: Therapy (PT/OT/Speech/Resp) Filed: 01/26/2024 14:58 Note Text: Physical Therapy Care Home Facility Treatment Summary SERVICE DATE: 01/26/2024 SERVICE TIME: 1051 to 1155 ROOM: [place] [address] PT 6 Clicks Score: 16 DISCHARGE RECOMMENDATIONS Home PT Recommended Discharge Disposition Comments: Anticipate need for 24 hour care upon dc due to cognitive limitations, and expected limitations post hip fx. Anticipated Discharge Needs: Family Training, Physical Assist at Home, Supervision at Home, Equipment Recommended Discharge Equipment: To Be Determined GOALS Patient will demonstrate progress with functional mobility to allow safe discharge to home with available support and/or physical assistance. Able to Perform HEP with: Supervision Rolling with: Modified Independent Transfer Supine to/from Sit with: Modified Independent Transfer Sit to/from Stand with: Modified Independent Ambulate with: Stand By Assistance Distance: 50 Device: Wheeled Walker Ambulate Up and Down Steps with: Minimal Assistance Number of Steps: 4 Device: Rail, Cane Rehab Potential: Good Progress Toward Goals: Progressing as expected ASSESSMENT Patient demonstrating increased fatigue this date after AM OT session, however, is agreeable to supine exercises and stand pivot transfers. Agreeable to trialing ambulation tomorrow with w/c follow. Continue as tolerated, with patient making slow, yet steady progress with focus to be on ambulation, however, grandson to put in ramp this date to assist with enter the home. Plan for Next Visit: Gait Training PRECAUTIONS Weight Bearing Restrictions, Bed/Chair Alarm ORIF L hip Left Lower Extremity Weight Bearing Status: WBAT SUBJECTIVE Patient reporting that she walked a few feet yesterday, but that she is too tired this date to try it. FUNCTIONAL STATUS Bed Mobility Rolling: Minimal Assistance Supine To Sit: Moderate Assistance Sit to Supine: Moderate Assistance (for LE management) Scooting: Contact Guard Assistance Transfers Sit To Stand: Contact Guard Assistance Stand To Sit: Contact Guard Assistance Bed to Chair Contact Guard Assistance Bed To Chair Transfer Type: Stepping Bed To Chair Transfer Equipment: Gait Belt, Wheeled Walker Gait Contact Guard Assistance Gait Device: Wheeled Walker Gait Distance (feet): 3' x 2 Stairs CURRENT HOSPITAL COURSE Admt to [facility] on 01/11 due to mechanical fall at home resulting in L intertrochanteric hip fracture. s/p ORIF L hip. Relevant Past Medical History: Arthitis, CA, HTN, lymphedema, dementia HOME LIVING Patient Lives With: Family (grandson and his and 1year old child, p-atient's dtr lives nearby) Assistance Available: Part-Time (need to verify with family. Patient poor historian.) Entry To Home: Stairs, With Rail Number Of Stairs Into Home: 4 Number Of Stairs To Bed/Bath: 0 Tub/Shower Type: tub shower with chair Laundry: family completes Equipment Owned: Walker- Wheeled, Lift Chair, Grab Bars- Toilet, Grab Bars- Shower, Shower Chair, Hand Held Shower, Commode- Raised, Emergency Response System PRIOR FUNCTIONAL LEVEL Required Assistance, History of Falls Assistance Required With: Cleaning, Laundry, Meals, Medication Management, Stairs, Safety, Self Care, Shopping, Transportation, Finances Pt questionable historian, pt reports IND with ADLS, family completes IALDs. ambulates with wheeled walker, history of falls (unable to recall an approximate amount however), sleeps in adjustable bed. Uses HOB elevated to get out of bed, uses lift chair during the day. States shw walks in the hallway every hour. THERAPY DIAGNOSIS Reduced mobility-other, Muscle Weakness (generalized) TREATMENT INTERVENTIONS Therapeutic activity Therapeutic exercises Total minutes: 29 minutes EXERCISE Ankle pumps, quad and glute sets x 15 each, combined with ASLR, hip abduction/ adduction and heel slides x 5-10 each AAROM LLE, AROM RLE. TRAINING AND EDUCATION PROVIDED Anatomy and Impact on Deficits;Assistive Device Use;Bed Mobility;Benefits of In-Hospital Mobility;Discharge Planning;Disease Specific Education;Expected Functional Level;Exercise Program;Falls Prevention;Gait Pattern, Reduction of Deviations;Home Safety; THERAPEUTIC SKILLS USED Activity Dosing;Cues for Sequencing/Proper Technique for Activity;Cuing Tactile;Cuing Verbal;Facilitation of Joint Range of Motion;Family Training;Movement Facilitation;Muscle Activation Facilitation;Physical Assist;Postural Alignment Correction; PLAN PT Frequency: 6 Times Per Week (3-4 weeks) Treatment Interventions: Strengthening, Functional Mobility Training SIGNATURE: Elle Hoover PT PATIENT NAME: Jackelyn Bradshaw DATE: January 26, 2024 TIME: 2:56 PM Normal [facility] THERAPY NT HNO ID: [id number] Author: ISABELLA SANCHEZ OTR/L Service: Occupational Therapy Author Type: Occupational Therapist Type: Therapy (PT/OT/Speech/Resp) Filed: 01/26/2024 10:01 Note Text: Summary: OT Insurance Update Occupational Therapy Care Home Facility Treatment Summary SERVICE DATE: 01/26/2024 SERVICE TIME: 849 to 939 ROOM: [place] [address] OT 6 Clicks Score: 18 DISCHARGE RECOMMENDATIONS Home OT (vs discharge to [facility]) Recommended Discharge Disposition Comments: Pt's discharge disposition is dependent upon progress made and family ability to provide necessary assistance Anticipated Discharge Needs: Family Training, Physical Assist at Home, Supervision at Home, Equipment Recommended Discharge Equipment: To Be Determined GOALS Patient will demonstrate progress with self-care, cognitive and/or coping needs identified to allow safe discharge to home with available support and/or physical assistance. Grooming with: Set Up Upper Body Bathing with: Set Up Upper Body Dressing with: Set Up Lower Body Bathing with: Minimal Assistance Lower Body Dressing with: Moderate Assistance Toilet Hygiene with: Moderate Assistance Chair Transfer with: Contact Guard Assistance Toilet Transfer with: Contact Guard Assistance Shower Transfer with: Minimal Assistance Tolerate (minutes of functional activity): 45 Functional Activity with: Contact Guard Assistance Progress Toward Goals: Progressing as expected Rehab Potential: Fair ASSESSMENT Response to Therapy Interventions: Good Participation in Activities, Improved Tolerance for Activity, Low Activity Tolerance, Needs Frequent Redirection or Reinstruction, Requires Additional Time to Complete Activities This patient has shown some progress in ability to transfer with use of walker and assistance of 1-2 people as opposed to using rolando stedy lift for transfers. Pt is participating well in ADL training sessions and is using adaptive equipment properly with good carry over of technique in each session. Pt does take extended amount of time for all mobility and ADL tasks and requires verbal cues at times. Pt is expected to improve further and more consistently in her transfers re: ADLs as well as ADL skills overall. Recommend continued skilled rehab/OT to address ADL training, functional mobility training re: ADLs, standing balance/tolerance training, and family instruction prior to discharge home. Care conference/family training will be scheduled in future sessions as pt continues to show progress. Plan for Next Visit: Bed Mobility, Chair/Commode Transfer Training, Dressing Training, Energy Conservation, Exercise Instruction/Handout, Grooming Training, Sit to Stand Transfers, Standing Balance, Standing Tolerance, Toileting Instruction PRECAUTIONS Weight Bearing Restrictions, Bed/Chair Alarm ORIF L hip Left Lower Extremity Weight Bearing Status: WBAT SUBJECTIVE Pt stated that she can tell she is improving with her ability to move with a walker FUNCTIONAL STATUS Activities of Daily Living Assist Level Additional Information Feeding Set Up Grooming Set Up, Additional Information to wash face and comb hair while seated in chair Bathing Upper Body Set Up, Additional Information to sponge bathe upper body while seated in chair; assist for back only Bathing Lower Body Moderate Assistance, Additional Information assist for thorough cleaning of buttocks; instructed in use of long sponge to bathe feet and distal LEs along with use of dressing stick to dry feet Dressing Upper Body Set Up, Additional Information to francisco/doff nightgown while seated in chair Dressing Lower Body Moderate Assistance, Additional Information pt used shuttle route vehicle operator to francisco briefs over feet with verbal cues only; moderate assist to pull up over hips in standing. Dressing stick used to doff socks with SBA and moderate assist needed for use of sock aid to francisco socks Toileting Maximal Assistance, Additional Information using BSC; pt able to complete hygiene to oliver area in standing with CGA for standing balance; maximal assistance for hygiene to posterior after a BM. Assist needed to pull briefs up over hips with pt attempting to assist but unable due to fatigue from standing extended time for completion of thorough hygiene. Instrumental Activities of Daily Living Assist Level Additional Information Meal/Beverage Prep Total Assistance Cleaning Total Assistance Laundry Total Assistance Medication Management with Strategies Total Assistance Mobility Assist Level Additional Information Bed Mobility Rolling: Minimal Assistance Supine To Sit: Maximal Assistance Sit To Supine: Maximal Assistance Sit to Stand Moderate Assistance Stand to Sit Minimal Assistance Bed to Chair Moderate A (more content not included)... Normal [facility] NUTRITIONon 01-25-2024 NUTRITION HNO ID: [id number] Author: MENDOZA COREAS RD Service: Nutrition Therapy Author Type: Registered Dietitian Type: Nutrition Filed: 01/25/2024 14:51 Note Text: NUTRITION THERAPY PROGRESS NOTE SERVICE DATE: 01/25/2024 SERVICE TIME: 2:49 PM Nutrition Assessment: Recommended Malnutrition Diagnosis: Unable to Identify Malnutrition at this time (01/18/24 0916 : Mendoza Coreas RD) Estimated kilocalorie needs: 6601-7648 Calorie Calculation Method: Ellsworth-St. Jeor (with activity factor) (adjusted body wt 60.1kg) Estimated protein needs (grams): 60-72 Grams protein determined by: 1.0 - 1.2 g/kg Care Plan: Continue current diet Monitor and Evaluation: Meet greater than 75% of estimated needs, Monitor labs, I/Os, vital signs, weight, Monitor fluid/electrolyte balance Discharge Recommendations: Diet Diet: REGULAR Interval History: 7 day LOS, here for Therapy, Meal intake ~100% ave. No new wt. Meds and labs reviewed, GFR low ,improved N.O. VitC AND MVI to aid in healing skin alterations. BLE edema 1-2+ charted. No sig changes r/t nutrition. Anthropometrics: Height: 160 cm (5' 3) Weight: 83.5 kg (184 lb 1.4 oz) Dosing Weight: 52.2 kg (115 lb) Body mass index is 32.61 kg/m?. Intake History: Current Nutrition Intake: Greater than 75% estimated energy needs Current Intake Over time: Greater than or equal to 7 days Diet Orders (From admission, onward) Start Ordered 01/17/24 1430 DIET REGULAR START NOW 01/17/24 1428 MNT Billing: $ Reassessment: 1-15 minutes SIGNATURE: Mendoza Coreas RD PATIENT NAME: Jackelyn Bradshaw DATE: January 25, 2024 TIME: 2:49 PM Normal [facility] THERAPY NTon 01-25-2024 THERAPY NT HNO ID: [id number] Author: LETICIA WALTERS PT Service: Physical Therapy Author Type: Physical Therapist Type: Therapy (PT/OT/Speech/Resp) Filed: 01/25/2024 15:39 Note Text: Physical Therapy Care Home Facility Treatment Summary SERVICE DATE: 01/25/2024 SERVICE TIME: 1355 to 1434 ROOM: [place] [address] PT 6 Clicks Score: 15 DISCHARGE RECOMMENDATIONS Home PT Recommended Discharge Disposition Comments: Anticipate need for 24 hour care upon dc due to cognitive limitations, and expected limitations post hip fx. Anticipated Discharge Needs: Family Training, Physical Assist at Home, Supervision at Home, Equipment Recommended Discharge Equipment: To Be Determined GOALS Patient will demonstrate progress with functional mobility to allow safe discharge to home with available support and/or physical assistance. Able to Perform HEP with: Supervision Rolling with: Modified Independent Transfer Supine to/from Sit with: Modified Independent Transfer Sit to/from Stand with: Modified Independent Ambulate with: Stand By Assistance Distance: 50 Device: Wheeled Walker Ambulate Up and Down Steps with: Minimal Assistance Number of Steps: 4 Device: Rail, Cane Rehab Potential: Good Progress Toward Goals: Progressing as expected ASSESSMENT Response to Therapy Interventions: Good Participation in Activities, Notable Progression with Functional Activities/Skills Able to advance R LE with less difficulty. Continues to need work to strengthen core and UE to allow decreased WBing to L LE. Plan for Next Visit: Gait Training, Pre-gait Activities, Exercise Instruction/Handout PRECAUTIONS Weight Bearing Restrictions, Bed/Chair Alarm ORIF L hip Left Lower Extremity Weight Bearing Status: WBAT SUBJECTIVE Patient reports increased pain and fatigue from am sessions in OT and PT but pleased with progress. FUNCTIONAL STATUS Bed Mobility Rolling: Minimal Assistance Supine To Sit: Moderate Assistance Sit to Supine: Moderate Assistance (for LE management) Scooting: Contact Guard Assistance Transfers Sit To Stand: Contact Guard Assistance, Minimal Assistance Stand To Sit: Contact Guard Assistance, Stand By Assistance (improved eccentric control) Bed to Chair Contact Guard Assistance Bed To Chair Transfer Type: Stepping Bed To Chair Transfer Equipment: Gait Belt, Wheeled Walker Gait Contact Guard Assistance, Minimal Assistance Gait Device: Wheeled Walker Gait Distance (feet): 3 feet (VC constant to push through arms to unweight L LE.) Stairs CURRENT HOSPITAL COURSE Admt to [facility] on 01/11 due to mechanical fall at home resulting in L intertrochanteric hip fracture. s/p ORIF L hip. Relevant Past Medical History: Arthitis, CA, HTN, lymphedema, dementia HOME LIVING Patient Lives With: Family (grandson and his and 1year old child, p-atient's dtr lives nearby) Assistance Available: Part-Time (need to verify with family. Patient poor historian.) Entry To Home: Stairs, With Rail Number Of Stairs Into Home: 4 Number Of Stairs To Bed/Bath: 0 Tub/Shower Type: tub shower with chair Laundry: family completes Equipment Owned: Walker- Wheeled, Lift Chair, Grab Bars- Toilet, Grab Bars- Shower, Shower Chair, Hand Held Shower, Commode- Raised, Emergency Response System PRIOR FUNCTIONAL LEVEL Required Assistance, History of Falls Assistance Required With: Cleaning, Laundry, Meals, Medication Management, Stairs, Safety, Self Care, Shopping, Transportation, Finances Pt questionable historian, pt reports IND with ADLS, family completes IALDs. ambulates with wheeled walker, history of falls (unable to recall an approximate amount however), sleeps in adjustable bed. Uses HOB elevated to get out of bed, uses lift chair during the day. States shw walks in the hallway every hour. THERAPY DIAGNOSIS Reduced mobility-other, Muscle Weakness (generalized) TREATMENT INTERVENTIONS Therapeutic Exercise (33314), Therapeutic Activity (36083), Gait Training (29005) Timed Code Treatment (minutes): 39 Skilled Treatment Time (minutes): 39 EXERCISE Exercises Ankle Pumps (number of reps): 10B Quad Sets (number of reps): 10B Glut Sets (number of reps): 10 Heel Slides (number of reps): 10L SAQ (number of reps): 10L Hip Abduction (number of reps): 10L Exercise: ex perfromed supine TRAINING AND EDUCATION PROVIDED Assistive Device Use, Bed Mobility, Exercise Program, Gait Pattern, Reduction of Deviations, Transfers THERAPEUTIC SKILLS USED Activity Dosing, Cues for Sequencing/Proper Technique for Activity, Cuing Tactile, Cuing Verbal, Physical Assist, Repetitive Task Learning PLAN PT Frequency: 6 Times Per Week (3-4 weeks) Treatment Interventions: Strengthening, Functional Mobility Training SIGNATURE: Leticia Walters PT PATIENT NAME: Jackelyn Bradshaw DATE: January 25, 2024 TIME: 3:39 PM Normal [facility] THERAPY NT HNO ID: [id number] Author: LETICIA WALTERS PT Service: Physical Therapy Author Type: Physical Therapist Type: Therapy (PT/OT/Speech/Resp) Filed: 01/25/2024 12:27 Note Text: Physical Therapy Care Home Facility Treatment Summary SERVICE DATE: 01/25/2024 SERVICE TIME: 1110 to 1135 ROOM: [place] [address] PT 6 Clicks Score: 15 DISCHARGE RECOMMENDATIONS Home PT Recommended Discharge Disposition Comments: Anticipate need for 24 hour care upon dc due to cognitive limitations, and expected limitations post hip fx. Anticipated Discharge Needs: Family Training, Physical Assist at Home, Supervision at Home, Equipment Recommended Discharge Equipment: To Be Determined GOALS Patient will demonstrate progress with functional mobility to allow safe discharge to home with available support and/or physical assistance. Able to Perform HEP with: Supervision Rolling with: Modified Independent Transfer Supine to/from Sit with: Modified Independent Transfer Sit to/from Stand with: Modified Independent Ambulate with: Stand By Assistance Distance: 50 Device: Wheeled Walker Ambulate Up and Down Steps with: Minimal Assistance Number of Steps: 4 Device: Rail, Cane Rehab Potential: Good Progress Toward Goals: Progressing as expected ASSESSMENT Response to Therapy Interventions: Improved Tolerance for Activity, Notable Progression with Functional Activities/Skills Increased standing tolerance and ability to WB to L LE. Needs core and upper body strengthening to help facilitate improved ambulation tolerance. Plan for Next Visit: Gait Training, Pre-gait Activities, Exercise Instruction/Handout PRECAUTIONS Weight Bearing Restrictions, Bed/Chair Alarm ORIF L hip Left Lower Extremity Weight Bearing Status: WBAT SUBJECTIVE I need to keep working so i can go home. FUNCTIONAL STATUS Bed Mobility Rolling: Minimal Assistance Supine To Sit: Moderate Assistance Sit to Supine: Moderate Assistance (increased rigidity/ stiffness noted) Scooting: Contact Guard Assistance Transfers Sit To Stand: Contact Guard Assistance, Minimal Assistance Stand To Sit: Contact Guard Assistance, Stand By Assistance (improved eccentric control) Bed to Chair Contact Guard Assistance Bed To Chair Transfer Type: Stepping Bed To Chair Transfer Equipment: Gait Belt, Wheeled Walker Gait Contact Guard Assistance, Minimal Assistance Gait Device: Wheeled Walker General Deviations/Observation s: Shuffling Gait, Flexed trunk posture, Difficulty changing direction/turning, Non-functional gait speed Gait Distance (feet): 3 feet (VC constant to push through arms to unweight L LE.) Stairs CURRENT HOSPITAL COURSE Admt to [facility] on 01/11 due to mechanical fall at home resulting in L intertrochanteric hip fracture. s/p ORIF L hip. Relevant Past Medical History: Arthitis, CA, HTN, lymphedema, dementia HOME LIVING Patient Lives With: Family (grandson and his and 1year old child, p-atraghu's dtr lives nearby) Assistance Available: Part-Time (need to verify with family. Patient poor historian.) Entry To Home: Stairs, With Rail Number Of Stairs Into Home: 4 Number Of Stairs To Bed/Bath: 0 Tub/Shower Type: tub shower with chair Laundry: family completes Equipment Owned: Walker- Wheeled, Lift Chair, Grab Bars- Toilet, Grab Bars- Shower, Shower Chair, Hand Held Shower, Commode- Raised, Emergency Response System PRIOR FUNCTIONAL LEVEL Required Assistance, History of Falls Assistance Required With: Cleaning, Laundry, Meals, Medication Management, Stairs, Safety, Self Care, Shopping, Transportation, Finances Pt questionable historian, pt reports IND with ADLS, family completes IALDs. ambulates with wheeled walker, history of falls (unable to recall an approximate amount however), sleeps in adjustable bed. Uses HOB elevated to get out of bed, uses lift chair during the day. States shw walks in the hallway every hour. THERAPY DIAGNOSIS Reduced mobility-other, Muscle Weakness (generalized) TREATMENT INTERVENTIONS Therapeutic Exercise (09296), Gait Training (78107) Timed Code Treatment (minutes): 25 Skilled Treatment Time (minutes): 25 EXERCISE Exercises Ankle Pumps (number of reps): 15B Quad Sets (number of reps): 10B Glut Sets (number of reps): 10 Heel Slides (number of reps): 10 R/L SAQ (number of reps): 10R/L LAQ (number of reps): 10R/L Hip Abduction (number of reps): 10R/L Exercise: all ex perfromed in sitting in recliner. Standing L hip/knee flexion 10x. Only able to lift L leg slightly. TRAINING AND EDUCATION PROVIDED Exercise Program, Standing Balance, Gait Pattern, Reduction of Deviations THERAPEUTIC SKILLS USED Activity Dosing, Cuing Tactile, Cuing Verbal, Cuing Visual, Physical Assist, Postural Alignment Correction, Repetitive Task Learning PLAN PT Frequency: 6 Times Per Week (3-4 weeks) Treatment Interventions: Strengthening, Functional Mobility (more content not included)... [facility] THERAPY NT HNO ID: [id number] Author: ISABELLA SANCHEZ OTR/L Service: Occupational Therapy Author Type: Digital Associate Type: Therapy (PT/OT/Speech/Resp) Filed: 01/25/2024 17:43 Note Text: Attestation signed by Isabella Sanchez OTR/L at 01/25/2024 5:43 PM I reviewed and agree with the documentation corresponding to this therapy visit. SIGNATURE: KATARZYNA Garcia DATE: January 25, 2024 TIME: 5:43 PM Occupational Therapy Care Home Facility Treatment Summary SERVICE DATE: 01/25/2024 SERVICE TIME: 1011 to 1045 ROOM: [place] [address] OT 6 Clicks Score: 16 DISCHARGE RECOMMENDATIONS Home OT (vs discharge to [facility]) Recommended Discharge Disposition Comments: Pt's discharge disposition is dependent upon progress made and family ability to provide necessary assistance Anticipated Discharge Needs: Family Training, Physical Assist at Home, Supervision at Home, Equipment Recommended Discharge Equipment: To Be Determined GOALS Patient will demonstrate progress with self-care, cognitive and/or coping needs identified to allow safe discharge to home with available support and/or physical assistance. Grooming with: Set Up Upper Body Bathing with: Set Up Upper Body Dressing with: Set Up Lower Body Bathing with: Minimal Assistance Lower Body Dressing with: Moderate Assistance Toilet Hygiene with: Moderate Assistance Chair Transfer with: Contact Guard Assistance Toilet Transfer with: Contact Guard Assistance Shower Transfer with: Minimal Assistance Tolerate (minutes of functional activity): 45 Functional Activity with: Contact Guard Assistance Progress Toward Goals: Progressing as expected Rehab Potential: Fair ASSESSMENT Response to Therapy Interventions: Good Participation in Activities, Low Activity Tolerance, Requires Additional Time to Complete Activities Pt improving in AE use this day but would benefit from continued training in their use. Pt reporting fear with putting weight into affected LE when ambulating. Plan for Next Visit: Bed Mobility, Chair/Commode Transfer Training, Dressing Training, Exercise Instruction/Handout, Grooming Training, Sit to Stand Transfers, Sitting Balance, Sitting Tolerance, Standing Tolerance, Toileting Instruction PRECAUTIONS Weight Bearing Restrictions, Bed/Chair Alarm ORIF L hip Left Lower Extremity Weight Bearing Status: WBAT SUBJECTIVE Pt reporting she is feeling good this AM. Reporting her family will be proud of her for getting her clothes on. FUNCTIONAL STATUS Activities of Daily Living Assist Level Additional Information Feeding Set Up Grooming Set Up, Minimal Assistance, Additional Information Bathing Upper Body Minimal Assistance Bathing Lower Body Maximal Assistance Dressing Upper Body Verbal Cues Only, Additional Information Dressing Lower Body Moderate Assistance, Additional Information sitting in chair - Use of AE to don/doff pants and briefs (dressing stick and LHR). Pt declined donnign socks as her family member does that for her. Toileting Maximal Assistance Simulated toileting as pt did not have to go. Able to participate in mangement of clothign up over/down below hips in standing. Mod Cues througout for standing instability and proprioception in standing. Instrumental Activities of Daily Living Assist Level Additional Information Meal/Beverage Prep Total Assistance Cleaning Total Assistance Laundry Total Assistance Medication Management with Strategies Total Assistance Mobility Assist Level Additional Information Bed Mobility Rolling: Minimal Assistance Supine To Sit: Maximal Assistance Sit To Supine: Maximal Assistance Sit to Stand Moderate Assistance of 1 from FWW Stand to Sit Minimal Assistance from FWW Bed to Chair Total Assistance Bed To Chair Transfer Type: Lift Bed To Chair Transfer Equipment: Lift, Gait Belt Toilet/Commode Total Assistance, Additional Information Shower Functional Mobility Moderate Assistance, Additional Information Functional Mobility Device: Wheeled Walker Pt willing to step forward/backward with affected leg. Unwilling to step with unaffected leg this day. CURRENT HOSPITAL COURSE Admt to [facility] on 01/11 due to mechanical fall at home resulting in L intertrochanteric hip fracture. s/p ORIF L hip. Relevant Past Medical History: Arthitis, CA, HTN, lymphedema, dementia HOME LIVING Patient Lives With: Family (grandson and his and 1year old child, peter'david dtr lives nearby) Assistance Available: Part-Time (need to verify with family. Patient poor historian.) Entry To Home: Stairs, With Rail Number Of Stairs Into Home: 4 Number Of Stairs To Bed/Bath: 0 Tub/Shower Type: tub shower with chair Laundry: family completes Equipment Owned: Walker- Wheeled, Lift Chair, (more content not included)... [facility] NURSING PROGon 01-23-2024 NURSING PROG HNO ID: [id number] Author: FRANCA HARRISON, RN Service: Nursing Author Type: Registered Nurse Type: Nursing Progress Note Filed: 01/23/2024 08:27 Note Text: Patient assisted up in bed for breakfast. All treatments and procedures were explained. Informed patient that OT will see her this morning. Patient verbalized understanding. No questions or concerns were voiced at this time. No family present in room. [facility] THERAPY NTon 01-23-2024 THERAPY NT HNO ID: [id number] Author: ELLE HOOVER, PT Service: Physical Therapy Author Type: Physical Therapist Type: Therapy (PT/OT/Speech/Resp) Filed: 01/23/2024 12:27 Note Text: Physical Therapy Care Home Facility Treatment Summary SERVICE DATE: 01/23/2024 SERVICE TIME: 1052 to 1126 ROOM: [place] [address] PT 6 Clicks Score: 14 DISCHARGE RECOMMENDATIONS Home PT Recommended Discharge Disposition Comments: Anticipate need for 24 hour care upon dc due to cognitive limitations, and expected limitations post hip fx. Anticipated Discharge Needs: Family Training, Physical Assist at Home, Supervision at Home, Equipment Recommended Discharge Equipment: To Be Determined GOALS Patient will demonstrate progress with functional mobility to allow safe discharge to home with available support and/or physical assistance. Able to Perform HEP with: Supervision Rolling with: Modified Independent Transfer Supine to/from Sit with: Modified Independent Transfer Sit to/from Stand with: Modified Independent Ambulate with: Stand By Assistance Distance: 50 Device: Wheeled Walker Ambulate Up and Down Steps with: Minimal Assistance Number of Steps: 4 Device: Rail, Cane Rehab Potential: Good Progress Toward Goals: Progressing as expected ASSESSMENT Response to Therapy Interventions: Improved Tolerance for Activity Improved ability to complete stand pivot and stepping to bed from recliner chair this date, with CGA x 2 for safety, with patient demonstrating improved ease of sit to stand transfers this date with min A. Family impressed with progress. Continue as tolerated. Plan for Next Visit: Gait Training PRECAUTIONS Weight Bearing Restrictions, Bed/Chair Alarm ORIF L hip Left Lower Extremity Weight Bearing Status: WBAT SUBJECTIVE I would rather lay down for a bit. FUNCTIONAL STATUS Bed Mobility Rolling: Minimal Assistance Supine To Sit: Moderate Assistance Sit to Supine: Moderate Assistance (increased rigidity/ stiffness noted) Scooting: Contact Guard Assistance cueing for technique Transfers Sit To Stand: Contact Guard Assistance, Minimal Assistance from recliner Stand To Sit: Contact Guard Assistance, Stand By Assistance (improved eccentric control) Bed to Chair Contact Guard Assistance Bed To Chair Transfer Type: Stepping Bed To Chair Transfer Equipment: Gait Belt, Wheeled Walker improved ease of stepping from recliner to bed, 2 assist for safety Gait Contact Guard Assistance, Minimal Assistance Gait Device: Wheeled Walker Gait Distance (feet): 5 small steps to bed Stairs CURRENT HOSPITAL COURSE Admt to [facility] on 01/11 due to mechanical fall at home resulting in L intertrochanteric hip fracture. s/p ORIF L hip. Relevant Past Medical History: Arthitis, CA, HTN, lymphedema, dementia HOME LIVING Patient Lives With: Family (grandson and his and 1year old child, p-atient's dtr lives nearby) Assistance Available: Part-Time (need to verify with family. Patient poor historian.) Entry To Home: Stairs, With Rail Number Of Stairs Into Home: 4 Number Of Stairs To Bed/Bath: 0 Tub/Shower Type: tub shower with chair Laundry: family completes Equipment Owned: Walker- Wheeled, Lift Chair, Grab Bars- Toilet, Grab Bars- Shower, Shower Chair, Hand Held Shower, Commode- Raised, Emergency Response System PRIOR FUNCTIONAL LEVEL Required Assistance, History of Falls Assistance Required With: Cleaning, Laundry, Meals, Medication Management, Stairs, Safety, Self Care, Shopping, Transportation, Finances Pt questionable historian, pt reports IND with ADLS, family completes IALDs. ambulates with wheeled walker, history of falls (unable to recall an approximate amount however), sleeps in adjustable bed. Uses HOB elevated to get out of bed, uses lift chair during the day. States shw walks in the hallway every hour. THERAPY DIAGNOSIS Reduced mobility-other, Muscle Weakness (generalized) TREATMENT INTERVENTIONS Therapeutic Exercise (12816), Therapeutic Activity (60380) Timed Code Treatment (minutes): 34 Skilled Treatment Time (minutes): 34 EXERCISE Exercises Ankle Pumps (number of reps): 2 x 20 Quad Sets (number of reps): 1 x 10 LLE in long sitting in recliner Glut Sets (number of reps): 1 x 10 long sitting LAQ (number of reps): 1 x 10 AAROM LLE, AROM RLE Hip Abduction (number of reps): 1 x 10 in sitting Exercise: in recliner, improved ease of quad activation this date TRAINING AND EDUCATION PROVIDED Anatomy and Impact on Deficits, Assistive Device Use, Bed Mobility, Discharge Planning, Disease Specific Education, Expected Functional Level, Exercise Program, Falls Prevention, Gait Pattern, Reduction of Deviations, Home Safety, Home Set-up/Modifications, Modalities THERAPEUTIC SKILLS USED Activity Dosing, Cues for Sequencing/Proper Technique for Activity, Cuing Tactile, Cuing Verbal, Facilitation of Joint Range of Motion, Movement (more content not included)... [facility] THERAPY NT HNO ID: [id number] Author: JAMES NANCE OTA/L Service: Occupational Therapy Author Type: Digital Associate Type: Therapy (PT/OT/Speech/Resp) Filed: 01/23/2024 10:34 Note Text: Attestation signed by Bi Garcia OTR/L at 01/23/2024 12:46 PM I reviewed and agree with the documentation corresponding to this therapy visit. SIGNATURE: KATARZYNA Newman DATE: January 23, 2024 TIME: 12:46 PM Occupational Therapy Care Home Facility Treatment Summary SERVICE DATE: 01/23/2024 SERVICE TIME: 904 ROOM: [place] [address] OT 6 Clicks Score: 15 DISCHARGE RECOMMENDATIONS Home OT (vs discharge to [facility]) Recommended Discharge Disposition Comments: Pt's discharge disposition is dependent upon progress made and family ability to provide necessary assistance Anticipated Discharge Needs: Family Training, Physical Assist at Home, Supervision at Home, Equipment Recommended Discharge Equipment: To Be Determined GOALS Patient will demonstrate progress with self-care, cognitive and/or coping needs identified to allow safe discharge to home with available support and/or physical assistance. Grooming with: Set Up Upper Body Bathing with: Set Up Upper Body Dressing with: Set Up Lower Body Bathing with: Minimal Assistance Lower Body Dressing with: Moderate Assistance Toilet Hygiene with: Moderate Assistance Chair Transfer with: Contact Guard Assistance Toilet Transfer with: Contact Guard Assistance Shower Transfer with: Minimal Assistance Tolerate (minutes of functional activity): 45 Functional Activity with: Contact Guard Assistance Progress Toward Goals: Progressing slower than expected Rehab Potential: Fair ASSESSMENT Response to Therapy Interventions: Cognitive Deficits, Good Participation in Activities, Low Activity Tolerance, Needs Frequent Redirection or Reinstruction Pt introduced to AE this day - threading BLEs with LR with fair+ teach back. Would benefit from continued educaiton on AE in future sessions. Plan for Next Visit: Bed Mobility, Chair/Commode Transfer Training, Dressing Training, Exercise Instruction/Handout, Grooming Training, Sit to Stand Transfers, Sitting Balance, Sitting Tolerance, Standing Tolerance, Toileting Instruction PRECAUTIONS Weight Bearing Restrictions, Bed/Chair Alarm ORIF L hip Left Lower Extremity Weight Bearing Status: WBAT SUBJECTIVE Pt reporting sleeping well. Reporting that she feels she is 'stubborn' and 'going to get through this.' FUNCTIONAL STATUS Activities of Daily Living Assist Level Additional Information Feeding Set Up Grooming Set Up, Minimal Assistance, Additional Information Bathing Upper Body Minimal Assistance Bathing Lower Body Maximal Assistance Dressing Upper Body Verbal Cues Only, Additional Information sitting EOB, donning/doffing overhead t-shirt Dressing Lower Body Maximal Assistance, Additional Information Sitting EOB - introduced to AE (LHR) for donning pants. Pt reporting grand dtr puts on socks for her. Pt requiring use of rolando stedy to complete full STS in order to manage brief/pants up over hips. MaxA to complete overall. Toileting Total Assistance incontinent of urine; brief change and skin care standing at rolando stedy; pt with multiple reddened areas- skin barrier applied. Nursing staff aware Instrumental Activities of Daily Living Assist Level Additional Information Meal/Beverage Prep Total Assistance Cleaning Total Assistance Laundry Total Assistance Medication Management with Strategies Total Assistance Mobility Assist Level Additional Information Bed Mobility Rolling: Minimal Assistance Supine To Sit: Maximal Assistance elevated HOB, use of rail. V/Cs to sequence use of rails to sit upright. Use of draw pad and therapist asisst for BLEs OOB. Sit To Supine: Maximal Assistance Sit to Stand Moderate Assistance, Total Assistance, Additional Information of 1 from FWW - unable to acheive full stand (significant hip flexion in standing). Able to stand fully with use of rolando stedy. Stand to Sit Minimal Assistance from rolando stedy Bed to Chair Total Assistance Bed To Chair Transfer Type: Lift Bed To Chair Transfer Equipment: Lift, Gait Belt Pt requires use of rolando steady for transfers at this time Toilet/Commode Total Assistance, Additional Information Shower Functional Mobility Maximal Assistance, Total Assistance Functional Mobility Device: Other: See Comment (Use of rolando stedy for pt transfers) CURRENT HOSPITAL COURSE Admt to [facility] on 01/11 due to mechanical fall at home resulting in L intertrochanteric hip fracture. s/p ORIF L hip. Relevant Past Medical History: Arthitis, CA, HTN, lymphedema, dementia HOME LIVING Patient Lives With: Family (grandson and his wif (more content not included)... [facility] THERAPY NTon 01-22-2024 THERAPY NT HNO ID: [id number] Author: ELLE HOOVER, PT Service: Physical Therapy Author Type: Physical Therapist Type: Therapy (PT/OT/Speech/Resp) Filed: 01/22/2024 15:19 Note Text: Physical Therapy Care Home Facility Treatment Summary SERVICE DATE: 01/22/2024 SERVICE TIME: 1400 to 1417 ROOM: [place] [address] PT 6 Clicks Score: 11 DISCHARGE RECOMMENDATIONS Home PT Recommended Discharge Disposition Comments: Anticipate need for 24 hour care upon dc due to cognitive limitations, and expected limitations post hip fx. Anticipated Discharge Needs: Family Training, Physical Assist at Home, Supervision at Home, Equipment Recommended Discharge Equipment: To Be Determined GOALS Patient will demonstrate progress with functional mobility to allow safe discharge to home with available support and/or physical assistance. Able to Perform HEP with: Supervision Rolling with: Modified Independent Transfer Supine to/from Sit with: Modified Independent Transfer Sit to/from Stand with: Modified Independent Ambulate with: Stand By Assistance Distance: 50 Device: Wheeled Walker Ambulate Up and Down Steps with: Minimal Assistance Number of Steps: 4 Device: Rail, Cane Rehab Potential: Good Progress Toward Goals: Progressing as expected ASSESSMENT Response to Therapy Interventions: Limited Participation, Low Activity Tolerance Patient extremely fatigued after sitting up in chair for at least 3 hours this date, with increased adductor tightness/ stiffness noted, and use of rolando stedy to improve ease of transfers. Continue as tolerated. Plan for Next Visit: Sit to Stand Transfers, Chair Transfer Training PRECAUTIONS Weight Bearing Restrictions, Bed/Chair Alarm ORIF L hip Left Lower Extremity Weight Bearing Status: WBAT SUBJECTIVE I'm not tired, I'm exhausted. FUNCTIONAL STATUS Bed Mobility Rolling: Minimal Assistance Supine To Sit: Moderate Assistance Sit to Supine: Maximal Assistance (assist LEs) Scooting: Minimal Assistance Transfers Sit To Stand: Minimal Assistance (in rolando stedy) Stand To Sit: Contact Guard Assistance, Minimal Assistance Bed to Chair Total Assistance Bed To Chair Transfer Type: Lift (rolando stedy) Bed To Chair Transfer Equipment: Gait Belt Gait Maximal Assistance Gait Device: Wheeled Walker Gait Distance (feet): attempted to perform step advancement with minimal toe clearance and lift off Stairs CURRENT HOSPITAL COURSE Admt to [facility] on 01/11 due to mechanical fall at home resulting in L intertrochanteric hip fracture. s/p ORIF L hip. Relevant Past Medical History: Arthitis, CA, HTN, lymphedema, dementia HOME LIVING Patient Lives With: Family (grandson and his and 1year old child, p-atient's dtr lives nearby) Assistance Available: Part-Time (need to verify with family. Patient poor historian.) Entry To Home: Stairs, With Rail Number Of Stairs Into Home: 4 Number Of Stairs To Bed/Bath: 0 Tub/Shower Type: tub shower with chair Laundry: family completes Equipment Owned: Walker- Wheeled, Lift Chair, Grab Bars- Toilet, Grab Bars- Shower, Shower Chair, Hand Held Shower, Commode- Raised, Emergency Response System PRIOR FUNCTIONAL LEVEL Required Assistance, History of Falls Assistance Required With: Cleaning, Laundry, Meals, Medication Management, Stairs, Safety, Self Care, Shopping, Transportation, Finances Pt questionable historian, pt reports IND with ADLS, family completes IALDs. ambulates with wheeled walker, history of falls (unable to recall an approximate amount however), sleeps in adjustable bed. Uses HOB elevated to get out of bed, uses lift chair during the day. States shw walks in the hallway every hour. THERAPY DIAGNOSIS Reduced mobility-other, Muscle Weakness (generalized) TREATMENT INTERVENTIONS Therapeutic Activity (15506) Timed Code Treatment (minutes): 10 Skilled Treatment Time (minutes): 10 EXERCISE None performed this session TRAINING AND EDUCATION PROVIDED Assistive Device Use, Discharge Planning, Disease Specific Education, Exercise Program, Expected Functional Level, Falls Prevention, Home Safety, Home Set-up/Modifications, Precautions/Restrictio ns THERAPEUTIC SKILLS USED Activity Dosing, Cuing Verbal, Cuing Tactile, Cues for Sequencing/Proper Technique for Activity, Facilitation of Joint Range of Motion, Movement Facilitation, Muscle Activation Facilitation, Physical Assist, Postural Alignment Correction PLAN PT Frequency: 6 Times Per Week (3-4 weeks) Treatment Interventions: Strengthening, Functional Mobility Training SIGNATURE: Elle Hoover PT PATIENT NAME: Jackelyn Bradshaw DATE: January 22, 2024 TIME: 3:19 PM [facility] THERAPY NT HNO ID: [id number] Author: JAYE MARK OTR/L Service: Occupational Therapy Author Type: Occupational Therapist Type: Therapy (PT/OT/Speech/Resp) Filed: 01/22/2024 14:23 Note Text: Occupational Therapy Care Home Facility Treatment SERVICE DATE: 01/22/2024 SERVICE TIME: 1336 to 1417 ROOM: [place] [address] Recommended Discharge Disposition: Home OT (vs discharge to [facility]) Recommended Discharge Disposition Comments: Pt's discharge disposition is dependent upon progress made and family ability to provide necessary assistance Anticipated Discharge Needs: Family Training, Physical Assist at Home, Supervision at Home, Equipment Recommended Discharge Equipment: To Be Determined OT 6 Clicks Score: 13 Precautions/Activity Restrictions: Weight Bearing Restrictions, Bed/Chair Alarm Precaution/Activity Restriction Comments: ORIF L hip Isolation Type: None Extremity With Weight Bearing Restricted: Left Lower Extremity Left Lower Extremity Weight Bearing Status: WBAT Current Hospital Course: Admt to [facility] on 01/11 due to mechanical fall at home resulting in L intertrochanteric hip fracture. s/p ORIF L hip. Relevant Past Medical History: Arthitis, [place], HTN, lymphedema, dementia Response to Therapy Interventions: Cognitive Deficits, Good Participation in Activities, Low Activity Tolerance, Needs Frequent Redirection or Reinstruction Assessment Comments: pt participating in OT /PT with much fatigue; increased stiffness in (B) LEs as patient reports having feet extended all day d/t swelling; encouragement for alternating positioning while in chair; use of rolando stedy for safety d/t fatigue levels Treatment Interventions: Education, Self Care/Home Management, Energy Conservation Training, Strengthening, Functional Mobility Training, Balance Training Home Environment Patient Lives With: Family (grandson and his and 1year old child, p-atient's dtr lives nearby) Assistance Available: Part-Time (need to verify with family. Patient poor historian.) Entry To Home: Stairs, With Rail Number Of Stairs Into Home: 4 Number Of Stairs To Bed/Bath: 0 Tub/Shower Type: tub shower with chair Laundry: family completes Equipment Owned: Walker- Wheeled, Lift Chair, Grab Bars- Toilet, Grab Bars- Shower, Shower Chair, Hand Held Shower, Commode- Raised, Emergency Response System Prior Functional Level: Required Assistance, History of Falls Assistance Required With: Cleaning, Laundry, Meals, Medication Management, Stairs, Safety, Self Care, Shopping, Transportation, Finances Prior Functional Level Comments: Pt questionable historian, pt reports IND with ADLS, family completes IALDs. ambulates with wheeled walker, history of falls (unable to recall an approximate amount however), sleeps in adjustable bed. Uses HOB elevated to get out of bed, uses lift chair during the day. States shw walks in the hallway every hour. 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 Identified Strengths for Life Roles: Good Support System Identified Barriers for Life Roles: Difficulty with ADLs/IADLs, Judgment/Awareness, Fear/Anxiety, Fatigue/Endurance, Functional Cognition/Memory, Medical Acuity/Chronic Condition Subjective: pt reports much fatigue- having sat up in chair most of day CURRENT FUNCTIONAL STATUS: Most recent performance Current Activities of Daily Living Assist Level Additional Information Feeding Set Up Grooming Set Up, Minimal Assistance, Additional Information Bathing Upper Body Minimal Assistance Bathing Lower Body Maximal Assistance Dressing Upper Body Minimal Assistance Dressing Lower Body Total Assistance Toileting Total Assistance incontinent of urine; brief change and skin care supine in bed; pt with multiple reddened areas- skin barrier applied. Nursing staff aware Instrumental Activities of Daily Living Assist Level Additional Information Meal/Beverage Prep Total Assistance Cleaning Total Assistance Laundry Total Assistance Medication Management with Strategies Total Assistance Functional Mobility Assist Level Additional Information Rolling Minimal Assistance assist to roll (B) d/t increased stiffness; use of rails Supine to Sit Maximal Assistance, Additional Information Sit to Supine Maximal Assistance of 2 with use of rails d/t stiffness Scooting Maximal Assistance, Total Assistance, Additional Information Sit to Stand Minimal Assistance of 1 with use of rolando stedy Stand to Sit Minimal Assistance from rolando stedy Bed to Chair Total Assistance Lift (rolando stedy) Gait Belt, Lift (rolando stedy) Toilet/Commode Total Assistance, Additional Information Shower Functional Mobility Maximal Assistance, Total As (more content not included)... [facility] THERAPY NT HNO ID: [id number] Author: ELLE HOOVER, PT Service: Physical Therapy Author Type: Physical Therapist Type: Therapy (PT/OT/Speech/Resp) Filed: 01/22/2024 12:27 Note Text: Physical Therapy Care Home Facility Treatment Summary SERVICE DATE: 01/22/2024 SERVICE TIME: 904 to 954 ROOM: [place] [address] PT 6 Clicks Score: 11 DISCHARGE RECOMMENDATIONS Home PT Recommended Discharge Disposition Comments: Anticipate need for 24 hour care upon dc due to cognitive limitations, and expected limitations post hip fx. Anticipated Discharge Needs: Family Training, Physical Assist at Home, Supervision at Home, Equipment Recommended Discharge Equipment: To Be Determined GOALS Patient will demonstrate progress with functional mobility to allow safe discharge to home with available support and/or physical assistance. Able to Perform HEP with: Supervision Rolling with: Modified Independent Transfer Supine to/from Sit with: Modified Independent Transfer Sit to/from Stand with: Modified Independent Ambulate with: Stand By Assistance Distance: 50 Device: Wheeled Walker Ambulate Up and Down Steps with: Minimal Assistance Number of Steps: 4 Device: Rail, Cane Rehab Potential: Good Progress Toward Goals: Progressing as expected ASSESSMENT Response to Therapy Interventions: Good Participation in Activities Improved ease of sit to stand transfers such that we were able to discontinue the rolando stedy during our session and attempt to step from the recliner with increased difficulty however patient able to remain standing with CGA/ min A. Continue as tolerated. Plan for Next Visit: Sit to Stand Transfers PRECAUTIONS Weight Bearing Restrictions, Bed/Chair Alarm ORIF L hip Left Lower Extremity Weight Bearing Status: WBAT SUBJECTIVE I want to get out of this bed. FUNCTIONAL STATUS Bed Mobility Rolling: Minimal Assistance rolling to affected side increased assist Supine To Sit: Moderate Assistance HOB elevated to 45 Sit to Supine: Maximal Assistance (assist LEs) Scooting: Minimal Assistance Transfers Sit To Stand: Minimal Assistance from recliner chair Stand To Sit: Contact Guard Assistance Bed to Chair Minimal Assistance Bed To Chair Transfer Type: Stand Pivot Bed To Chair Transfer Equipment: Gait Belt, Wheeled Walker improved ease of transfer to chair Gait Maximal Assistance Gait Device: Wheeled Walker General Deviations/Observation s: Shuffling Gait, Flexed trunk posture, Difficulty changing direction/turning, Non-functional gait speed Gait Distance (feet): attempted to perform step advancement with minimal toe clearance and lift off Stairs CURRENT HOSPITAL COURSE Admt to [facility] on 01/11 due to mechanical fall at home resulting in L intertrochanteric hip fracture. s/p ORIF L hip. Relevant Past Medical History: Arthitis, CA, HTN, lymphedema, dementia HOME LIVING Patient Lives With: Family (grandson and his and 1year old child, p-atient's dtr lives nearby) Assistance Available: Part-Time (need to verify with family. Patient poor historian.) Entry To Home: Stairs, With Rail Number Of Stairs Into Home: 4 Number Of Stairs To Bed/Bath: 0 Tub/Shower Type: tub shower with chair Laundry: family completes Equipment Owned: Walker- Wheeled, Lift Chair, Grab Bars- Toilet, Grab Bars- Shower, Shower Chair, Hand Held Shower, Commode- Raised, Emergency Response System PRIOR FUNCTIONAL LEVEL Required Assistance, History of Falls Assistance Required With: Cleaning, Laundry, Meals, Medication Management, Stairs, Safety, Self Care, Shopping, Transportation, Finances Pt questionable historian, pt reports IND with ADLS, family completes IALDs. ambulates with wheeled walker, history of falls (unable to recall an approximate amount however), sleeps in adjustable bed. Uses HOB elevated to get out of bed, uses lift chair during the day. States shw walks in the hallway every hour. THERAPY DIAGNOSIS Reduced mobility-other, Muscle Weakness (generalized) TREATMENT INTERVENTIONS Therapeutic Exercise (42997), Therapeutic Activity (71955) Timed Code Treatment (minutes): 50 Skilled Treatment Time (minutes): 50 EXERCISE Exercises Ankle Pumps (number of reps): 20 Quad Sets (number of reps): 1 x 10 LLE Glut Sets (number of reps): 1 x 10 Heel Slides (number of reps): 1 x 10 BLE AROM RLE, AAROM LLE Hip Abduction (number of reps): 1 x 10 B with AAROM Exercise: in supine TRAINING AND EDUCATION PROVIDED Assistive Device Use, Bed Mobility, Discharge Planning, Disease Specific Education, Exercise Program, Expected Functional Level, Falls Prevention, Gait Pattern, Reduction of Deviations, Home Safety, Home Set-up/Modifications THERAPEUTIC SKILLS USED Activity Dosing, Cuing Verbal, Cuing Tactile, Cues for Sequencing/Proper Technique for Activity, Facilitation of Joint Range of Motion, Movement Facilitation, Muscle Activation Facilitation (more content not included)... [facility] NURSING PROGon 01-21-2024 NURSING PROG HNO ID: [id number] Author: FRANCA HARRISON RN Service: Nursing Author Type: Registered Nurse Type: Nursing Progress Note Filed: 01/21/2024 11:53 Note Text: Patient sitting up in bed watching tv. All treatments and procedures were explained. Patient verbalized understanding. No questions or concerns were voiced at this time. [facility] SOCIAL WORKon 01-21-2024 SOCIAL WORK HNO ID: [id number] Author: KRYSTYNA FOX LSW Service: Social Work Author Type: Musical String Maker Type: Social Work Filed: 01/21/2024 16:57 Note Text: Summary: [facility] rounding SOCIAL WORK PROGRESS NOTE Name: Jackelyn Bradshaw Patient says she has good days and then days with a lot of pain. Said when her hip hurts it REALLY hurts Denies any needs from [facility] at this time. Signature: MICHELA Chanel Date: January 21, 2024 Time: 4:52 PM [facility] THERAPY NTon 01-21-2024 THERAPY NT HNO ID: [id number] Author: LETICIA WALTERS PT Service: Physical Therapy Author Type: Digital Retoucher Type: Therapy (PT/OT/Speech/Resp) Filed: 01/21/2024 18:50 Note Text: Attestation signed by Leticia Walters PT at 01/21/2024 6:50 PM I reviewed and agree with the documentation corresponding to this therapy visit. SIGNATURE: Leticia Walters PT DATE: January 21, 2024 TIME: 6:50 PM Physical Therapy Care Home Facility Treatment Summary SERVICE DATE: 01/21/2024 SERVICE TIME: 1604 to 1614 ROOM: [place] [address] PT 6 Clicks Score: 10 DISCHARGE RECOMMENDATIONS Home PT Recommended Discharge Disposition Comments: Anticipate need for 24 hour care upon dc due to cognitive limitations, and expected limitations post hip fx. Anticipated Discharge Needs: Family Training, Physical Assist at Home, Supervision at Home, Equipment Recommended Discharge Equipment: To Be Determined GOALS Patient will demonstrate progress with functional mobility to allow safe discharge to home with available support and/or physical assistance. Able to Perform HEP with: Supervision Rolling with: Modified Independent Transfer Supine to/from Sit with: Modified Independent Transfer Sit to/from Stand with: Modified Independent Ambulate with: Stand By Assistance Distance: 50 Device: Wheeled Walker Ambulate Up and Down Steps with: Minimal Assistance Number of Steps: 4 Device: Rail, Cane Rehab Potential: Good Progress Toward Goals: Progressing as expected ASSESSMENT Response to Therapy Interventions: Limited Participation, Low Activity Tolerance, Pain Patient only willing to transfer from chair to bed in this afternoons session as she states that she is tired from ealier therapy and her hip hurts from staying in the chair. Plan for Next Visit: Sit to Stand Transfers, Exercise Instruction/Handout (L quad strength) PRECAUTIONS Weight Bearing Restrictions, Bed/Chair Alarm Left Lower Extremity Weight Bearing Status: WBAT SUBJECTIVE my hip hurts FUNCTIONAL STATUS Bed Mobility Rolling: Moderate Assistance Supine To Sit: Moderate Assistance Sit to Supine: Maximal Assistance (assist LEs) Scooting: Minimal Assistance, Additional Information Transfers Sit To Stand: Minimal Assistance Stand To Sit: Minimal Assistance Bed to Chair Total Assistance Bed To Chair Transfer Type: Lift (rolando steady) Bed To Chair Transfer Equipment: Lift (rolando steady) Gait Stairs CURRENT HOSPITAL COURSE Admt to [facility] on 01/11 due to mechanical fall at home resulting in L intertrochanteric hip fracture. s/p ORIF L hip. Relevant Past Medical History: Arthitis, CA, HTN, lymphedema, dementia HOME LIVING Patient Lives With: Family (grandson and his and 1year old child, p-atient's dtr lives nearby) Assistance Available: Part-Time (need to verify with family. Patient poor historian.) Entry To Home: Stairs, With Rail Number Of Stairs Into Home: 4 Number Of Stairs To Bed/Bath: 0 Tub/Shower Type: tub shower with chair Laundry: family completes Equipment Owned: Walker- Wheeled, Lift Chair, Grab Bars- Toilet, Grab Bars- Shower, Shower Chair, Hand Held Shower, Commode- Raised, Emergency Response System PRIOR FUNCTIONAL LEVEL Required Assistance, History of Falls Assistance Required With: Cleaning, Laundry, Meals, Medication Management, Stairs, Safety, Self Care, Shopping, Transportation, Finances Pt questionable historian, pt reports IND with ADLS, family completes IALDs. ambulates with wheeled walker, history of falls (unable to recall an approximate amount however), sleeps in adjustable bed. Uses HOB elevated to get out of bed, uses lift chair during the day. States shw walks in the hallway every hour. THERAPY DIAGNOSIS Reduced mobility-other, Muscle Weakness (generalized) TREATMENT INTERVENTIONS Therapeutic Activity (33376) Timed Code Treatment (minutes): 10 Skilled Treatment Time (minutes): 10 TRAINING AND EDUCATION PROVIDED Bed Mobility, Benefits of In-Hospital Mobility THERAPEUTIC SKILLS USED Activity Dosing, Cuing Verbal, Cues for Sequencing/Proper Technique for Activity, Physical Assist PLAN PT Frequency: 6 Times Per Week (3-4 weeks) Treatment Interventions: Strengthening, Functional Mobility Training SIGNATURE: Chase Bartlett PTA PATIENT NAME: Jackelyn Bradshaw DATE: January 21, 2024 TIME: 4:20 PM [facility] THERAPY NT HNO ID: [id number] Author: BI GARCIA OTR/L Service: ? Author Type: Occupational Therapist Type: Therapy (PT/OT/Speech/Resp) Filed: 01/21/2024 15:47 Note Text: Occupational Therapy Care Home Facility Treatment Summary SERVICE DATE: 01/21/2024 SERVICE TIME: 1455 to 1531 ROOM: [place] [address] OT 6 Clicks Score: 13 DISCHARGE RECOMMENDATIONS Home OT (vs discharge to [facility]) Recommended Discharge Disposition Comments: Pt's discharge disposition is dependent upon progress made and family ability to provide necessary assistance Anticipated Discharge Needs: Family Training, Physical Assist at Home, Supervision at Home, Equipment Recommended Discharge Equipment: To Be Determined GOALS Patient will demonstrate progress with self-care, cognitive and/or coping needs identified to allow safe discharge to home with available support and/or physical assistance. Grooming with: Set Up Upper Body Bathing with: Set Up Upper Body Dressing with: Set Up Lower Body Bathing with: Minimal Assistance Lower Body Dressing with: Moderate Assistance Toilet Hygiene with: Moderate Assistance Chair Transfer with: Contact Guard Assistance Toilet Transfer with: Contact Guard Assistance Shower Transfer with: Minimal Assistance Tolerate (minutes of functional activity): 45 Functional Activity with: Contact Guard Assistance Progress Toward Goals: Progressing slower than expected Rehab Potential: Fair ASSESSMENT Response to Therapy Interventions: Cognitive Deficits, Good Participation in Activities, Low Activity Tolerance, Needs Frequent Redirection or Reinstruction Pt engaged in sitting balance activity EOB to facilitate improved dynamic balance and core strength for ADLs. Pt required unilateral UE support on EOB at all times and when reaching ipsilaterally / contralaterally. Pt required use of rolando stedy for fxl transfers this date and continues to require Mod-Max A for bed mobility. Pt would benefit from continued skilled OT services to address skill deficits for increased (I) and fxl mobility prior to d/c. Plan for Next Visit: Bed Mobility, Chair/Commode Transfer Training, Dressing Training, Exercise Instruction/Handout, Grooming Training, Sit to Stand Transfers, Sitting Balance, Sitting Tolerance, Standing Tolerance, Toileting Instruction PRECAUTIONS Weight Bearing Restrictions, Bed/Chair Alarm Left Lower Extremity Weight Bearing Status: WBAT SUBJECTIVE Pt agreeable to OT tx session FUNCTIONAL STATUS Activities of Daily Living Assist Level Additional Information Feeding Set Up Grooming Set Up, Minimal Assistance, Additional Information Bathing Upper Body Minimal Assistance Bathing Lower Body Maximal Assistance Dressing Upper Body Minimal Assistance Dressing Lower Body Total Assistance Toileting Total Assistance Instrumental Activities of Daily Living Assist Level Additional Information Meal/Beverage Prep Total Assistance Cleaning Total Assistance Laundry Total Assistance Medication Management with Strategies Total Assistance Mobility Assist Level Additional Information Bed Mobility Rolling: Moderate Assistance, Maximal Assistance, Additional Information Supine To Sit: Maximal Assistance, Additional Information elevated HOB and use of rail. assist required for BLE mgmt and for lifting UB into upright position. attempted use of leg math and science instructor to manage LE's off EOB, however pt with difficulty d/t overall decreased strength Sit To Supine: Moderate Assistance, Additional Information of 1, use of rail, assist for managing BLE's into bed Sit to Stand Minimal Assistance, Additional Information of 1 to rolando river from EOB Stand to Sit Minimal Assistance, Additional Information from rolando stedy to chair and [facility] [place] Total Assistance Bed To Chair Transfer Type: Lift (rolando stedy) Bed To Chair Transfer Equipment: Gait Belt, Lift (rolando stedy) Toilet/Commode Total Assistance, Additional Information use of rolando stedy Shower Functional Mobility Maximal Assistance, Total Assistance Functional Mobility Device: (rolando steady used for transfers) CURRENT HOSPITAL COURSE Admt to [facility] on 01/11 due to mechanical fall at home resulting in L intertrochanteric hip fracture. s/p ORIF L hip. Relevant Past Medical History: Arthitis, CA, HTN, lymphedema, dementia HOME LIVING Patient Lives With: Family (grandson and his and 1year old child, p-atient's dtr lives nearby) Assistance Available: Part-Time (need to verify with family. Patient poor historian.) Entry To Home: Stairs, With Rail Number Of Stairs Into Home: 4 Number Of Stairs To Bed/Bath: 0 Tub/Shower Type: tub shower with chair Laundry: family completes Equipment Owned: Walker- Wheeled, Lift Chair, Grab Bars- Toilet, Grab Bars- Shower, Shower Chair, Hand Held Shower, Commode- Raised, Emergency Response System PRIOR FUNCTIONAL LEVEL Required Assistance, History of Falls Zac (more content not included)... [facility] THERAPY NT HNO ID: [id number] Author: LETICIA WALTERS, PT Service: Physical Therapy Author Type: Physical Therapist Type: Therapy (PT/OT/Speech/Resp) Filed: 01/21/2024 12:21 Note Text: Physical Therapy Care Home Facility Treatment Summary SERVICE DATE: 01/21/2024 SERVICE TIME: 1120 to 1145 ROOM: [place] [address] PT 6 Clicks Score: 10 DISCHARGE RECOMMENDATIONS Home PT Recommended Discharge Disposition Comments: Anticipate need for 24 hour care upon dc due to cognitive limitations, and expected limitations post hip fx. Anticipated Discharge Needs: Family Training, Physical Assist at Home, Supervision at Home, Equipment Recommended Discharge Equipment: To Be Determined GOALS Patient will demonstrate progress with functional mobility to allow safe discharge to home with available support and/or physical assistance. Able to Perform HEP with: Supervision Rolling with: Modified Independent Transfer Supine to/from Sit with: Modified Independent Transfer Sit to/from Stand with: Modified Independent Ambulate with: Stand By Assistance Distance: 50 Device: Wheeled Walker Ambulate Up and Down Steps with: Minimal Assistance Number of Steps: 4 Device: Rail, Cane Rehab Potential: Good Progress Toward Goals: Progressing as expected ASSESSMENT Response to Therapy Interventions: Improved Tolerance for Activity, Notable Progression with Functional Activities/Skills Imporved mobility skills with ability to take 3 steps for bed to chair transfer. L knee bucking noted with transfers. Plan for Next Visit: Sit to Stand Transfers, Exercise Instruction/Handout (address L quad strength) PRECAUTIONS Weight Bearing Restrictions, Bed/Chair Alarm Left Lower Extremity Weight Bearing Status: WBAT SUBJECTIVE Feels good to stand. FUNCTIONAL STATUS Bed Mobility Rolling: Moderate Assistance moderate assist with use of bed rails Supine To Sit: Moderate Assistance with HOB elevated 45 degrees. Assist for L LE, patient initiating some of the movement, use of drawsheet to get to edge of bed. Sit to Supine: Maximal Assistance (assist LEs) Scooting: Minimal Assistance, Additional Information VC for technique Transfers Sit To Stand: Minimal Assistance from elevated bed, retro pulsion with initial sit to stand. Improved on 2nd attempt. Stand To Sit: Minimal Assistance Bed to Chair Moderate Assistance Bed To Chair Transfer Type: Stepping Bed To Chair Transfer Equipment: Wheeled Walker, Gait Belt Gait Stairs CURRENT HOSPITAL COURSE Admt to [facility] on 01/11 due to mechanical fall at home resulting in L intertrochanteric hip fracture. s/p ORIF L hip. Relevant Past Medical History: Arthitis, CA, HTN, lymphedema, dementia HOME LIVING Patient Lives With: Family (grandson and his and 1year old child, p-atient's dtr lives nearby) Assistance Available: Part-Time (need to verify with family. Patient poor historian.) Entry To Home: Stairs, With Rail Number Of Stairs Into Home: 4 Number Of Stairs To Bed/Bath: 0 Tub/Shower Type: tub shower with chair Laundry: family completes Equipment Owned: Walker- Wheeled, Lift Chair, Grab Bars- Toilet, Grab Bars- Shower, Shower Chair, Hand Held Shower, Commode- Raised, Emergency Response System PRIOR FUNCTIONAL LEVEL Required Assistance, History of Falls Assistance Required With: Cleaning, Laundry, Meals, Medication Management, Stairs, Safety, Self Care, Shopping, Transportation, Finances Pt questionable historian, pt reports IND with ADLS, family completes IALDs. ambulates with wheeled walker, history of falls (unable to recall an approximate amount however), sleeps in adjustable bed. Uses HOB elevated to get out of bed, uses lift chair during the day. States shw walks in the hallway every hour. THERAPY DIAGNOSIS Reduced mobility-other, Muscle Weakness (generalized) TREATMENT INTERVENTIONS Therapeutic Exercise (94806), Therapeutic Activity (11254) Timed Code Treatment (minutes): 25 Skilled Treatment Time (minutes): 25 EXERCISE Exercises Exercise: seated AP and LAQ 10x ea TRAINING AND EDUCATION PROVIDED Bed Mobility, Falls Prevention, Sitting Balance, Standing Balance, Role of Physical Therapy, Transfers THERAPEUTIC SKILLS USED Activity Dosing, Cuing Tactile, Cues for Sequencing/Proper Technique for Activity, Cuing Verbal, Physical Assist, Postural Alignment Correction PLAN PT Frequency: 6 Times Per Week (3-4 weeks) Treatment Interventions: Strengthening, Functional Mobility Training SIGNATURE: Leticia Walters, PT PATIENT NAME: Jackelyn Bradshaw DATE: January 21, 2024 TIME: 12:21 PM [facility] Basic metabolic 2000 panelon 01-20-2024 Anion gap [Moles/Vol] 7 mmol/L Low 9-18 [facility] Comment on above: Order Comment: Speci men Type: BLOOD SPECIMEN Ordering Facility: [facility] Address: [address] [place] [address] Performed By: #### 1 [id number], [id number] #### [facility] CLIA [id number] [address] [place] [address] [place] Calcium [Mass/Vol] 8.2 mg/dL Low 8.5-10.2 [facility] Comment on above: Order Comment: Speci men Type: BLOOD SPECIMEN Ordering Facility: [facility] Address: [address] [place] [id number] Performed By: #### 1 9123-9, 60120-0 #### [facility] CLIA [id number] [address] [place] [address] [place] Chloride [Moles/Vol] 108 mmol/L High 97-105 [facility] Comment on above: Order Comment: Hilary ocampo Type: BLOOD SPECIMEN Ordering Facility: [facility] Address: [address] [place] [address] Performed By: #### 1 9123-9, 18018-6 #### [facility] CLIA [id number] [address] [place] [address] [place] CO2 [Moles/Vol] 26 mmol/L Normal 22-30 [facility] Comment on above: Order Comment: Hilary ocampo Type: BLOOD SPECIMEN Ordering Facility: [facility] Address: [address] [place] [address] Performed By: #### 1 9123-9, 49683-7 #### [facility] CLIA [id number] [address] [place] [address] [place] Creatinine [Mass/Vol] 1.26 mg/dL High 0.58-0.96 [facility] Comment on above: Order Comment: Hilary ocampo Type: BLOOD SPECIMEN Ordering Facility: [facility] Address: [address] [place] [address] Performed By: #### 1 9123-9, 85225-7 #### [facility] CLIA [id number] [address] [place] [address] [place] [facility] [place] Creatinine and Glomerular filtration rate.predicted panel (S/P/Bld) 42 mL/min/1.73m??? Low >=60 [facility] Comment on above: Order Comment: Hilary ocampo Type: BLOOD SPECIMEN Ordering Facility: [facility] Address: [address] [place] [address] Result Comment: Patience mated Glomerular Filtration Rate (eGFR) is calculated using the 2020 CKD-EPI creatinine equation. This equation utilizes serum creatinine, sex, and age as parameters. The creatinine assay has traceable calibration to isotope dilution-mass spectrometry. Refer to KDIGO guidelines for clinical interpretation. In patients with unstable renal function, e.g. those with acute kidney injury, the eGFR may not accurately reflect actual GFR. Performed By: #### 1 9123-9, 96836-1 #### [facility] CLIA [id number] [address] [place] [address] [place] Glucose [Mass/Vol] 90 mg/dL Normal 74-99 [facility] Comment on above: Order Comment: Hilary ocampo Type: BLOOD SPECIMEN Ordering Facility: [facility] Address: [address] [place] [address] Result Comment: The [place] Diabetes Association (ADA) provides guidance for cutoff values for fasting glucose and random glucose. The ADA defines fasting as no caloric intake for at least 8 hours. Fasting plasma glucose results between 100 to 125 mg/dL indicate increased risk for diabetes (prediabetes). Fasting plasma glucose results greater than or equal to 126 mg/dL meet the criteria for diagnosis of diabetes. In the absence of unequivocal hyperglycemia, results should be confirmed by repeat testing. In a patient with classic symptoms of hyperglycemia or hyperglycemic crisis, random plasma glucose results greater than or equal to 200 mg/dL meet the criteria for diagnosis of diabetes. Reference: Standards of Medical Care in Diabetes 2016, [place] Diabetes Association. Diabetes Care. 2016.39(Suppl 1). Performed By: #### 1 9123-9, 24238-1 #### [facility] CLIA [id number] [address] [place] [address] [place] Potassium [Moles/Vol] 4.4 mmol/L Normal 3.7-5.1 [facility] Comment on above: Order Comment: Hilary ocampo Type: BLOOD SPECIMEN Ordering Facility: [facility] Address: [address] [place] [address] Performed By: #### 1 9123-9, 19098-5 #### [facility] CLIA [id number] [address] [place] [address] [place] Sodium [Moles/Vol] 141 mmol/L Normal 136-144 [facility] Comment on above: Order Comment: Hilary ocampo Type: BLOOD SPECIMEN Ordering Facility: [facility] Address: [address] [place], [place] [id number] Performed By: #### 1 9123-06, 78645-4 #### [facility] CLIA [id number] [address] [place] [address] [place] Urea nitrogen [Mass/Vol] 38 mg/dL High 7-21 [facility] Comment on above: Order Comment: Speci men Type: BLOOD SPECIMEN Ordering Facility: [facility] Address: [address] [place] [address] Performed By: #### 1 9, 95236-3 #### [facility] CLIA [id number] [address] [place] [address] [place] CBC panel Auto (Bld)on 01-19 Erythrocyte distribution width (RBC) [Ratio] 14.1 % Normal 11.5-15.0 [facility] Comment on above: Order Comment: Speci men Type: BLOOD SPECIMEN Ordering Facility: [facility] Address: [address] [place] [address] Performed By: #### 1 9123-06, 79392-2 #### [facility] CLIA [id number] [address] [place] [address] [place] Hematocrit (Bld) [Volume fraction] 25.0 % Low 36.0-46.0 [facility] Comment on above: Order Comment: Speci men Type: BLOOD SPECIMEN Ordering Facility: [facility] Address: [address] [place] [address] Performed By: #### 1 23, 57021-0 #### [facility] CLIA [id number] [address] [place] [address] [place] Hemoglobin (Bld) [Mass/Vol] 8.0 g/dL Low 11.5-15.5 [facility] Comment on above: Order Comment: Speci men Type: BLOOD SPECIMEN Ordering Facility: [facility] Address: [address] [place] [address] Performed By: #### 1 91239, 11948-5 #### [facility] CLIA [id number] [address] [place] [address] [place] MCH (RBC) [Entitic mass] 32.0 pg Normal 26.0-34.0 [facility] Comment on above: Order Comment: Speci men Type: BLOOD SPECIMEN Ordering Facility: [facility] Address: [address] [place] [address] Performed By: #### 1 9123-9, 69674-7 #### [facility] CLIA [id number] [address] [place] [address] [place] MCHC (RBC) [Mass/Vol] 32.0 g/dL Normal 30.5-36.0 [facility] Comment on above: Order Comment: Speci men Type: BLOOD SPECIMEN Ordering Facility: [facility] Address: [address] [place] [address] Performed By: #### 1 9123-9, 28166-2 #### [facility] CLIA [id number] [address] [place], [place] [id number] [place] [address] OF [facility] MCV (RBC) [Entitic vol] 100.0 fL Normal 80.0-100.0 [facility] Comment on above: Order Comment: Speci men Type: BLOOD SPECIMEN Ordering Facility: [facility] Address: [address] [place] [address] Performed By: #### 1 9123-9, 00174-0 #### [facility] CLIA [id number] [address] [place] [address] [facility] Platelet mean volume (Bld) [Entitic vol] 10.4 fL Normal 9.0-12.7 [facility] Comment on above: Order Comment: Speci men Type: BLOOD SPECIMEN Ordering Facility: [facility] Address: [address] [place] [address] Performed By: #### 1 9123-9, 11483-1 #### [facility] CLIA [id number] [address] [place] [address] [facility] Platelets (Bld) [#/Vol] 157 10*3/uL Normal 150-400 [facility] Comment on above: Order Comment: Speci men Type: BLOOD SPECIMEN Ordering Facility: [facility] Address: [address] [place] [address] Performed By: #### 1 9123-9, 47184-2 #### [facility] CLIA [id number] [address] [place], [place] [id number] [place] RBC (Bld) [#/Vol] 2.50 10*6/uL Low 3.90-5.20 [facility] Comment on above: Order Comment: Justyni men Type: BLOOD SPECIMEN Ordering Facility: [facility] Address: [address] [place] [address] Performed By: #### 1 9123-9, 57048-2 #### [facility] CLIA [id number] [address] [place], [place] [id number] [facility] [place] WBC (Bld) [#/Vol] 7.44 10*3/uL Normal 3.70-11.00 [facility] Comment on above: Order Comment: Justyni men Type: BLOOD SPECIMEN Ordering Facility: [facility] Address: [address] [place] [address] Performed By: #### 1 9123-9, 52135-1 #### [facility] CLIA [id number] [address] [place], [place] [id number] [facility] SOCIAL WORKon 01-20-2024 SOCIAL WORK HNO ID: [id number] Author: KRYSTYNA FOX LSW Service: Social Work Author Type: Musical String Maker Type: Social Work Filed: 01/20/2024 17:16 Note Text: Summary: Team Rounds MULTIDISCIPLINARY ROUNDS SERVICE DATE: 01/20/2024 ADMISSION DATE: 01/17/2024 SERVICE TIME: 12:30 PM ANTICIPATED D/C DATE: 3-4 wks Problem List: ACTIVE PROBLEM LIST Htn (Hypertension) Impaired Ambulation Acute kidney injury superimposed on CKD (HCC) (HCC) Pelvic Joint Pain, Left Cancer of Breast, Intraductal, Left Generalized Weakness Fall Tremors of Nervous System Declining Functional Status Obesity, Class I, Bmi 30-34.9 Aftercare Status Post Hip Surgery Dementia (Hcc) Anemia Urinary Retention Attendees Present at Rounds: CM, DRYING ROOM OPERATOR, NM, OT, PT, SW Needs Discussed on Rounds: Equipment: Using rolando river presently Mobility Psycho/Social Plan of Care Anticipated Discharge Disposition: Home with Home Health Last Vitals: BP 168/64 Pulse 67 Temp (Src) 98 (Oral) Resp 18 Ht 5' 3 (1.60m) Wt 184 lb 1.4 oz (83.5kg) SpO2 93% BMI 32.62 kg/(m2). O2 Therapy: Room Air SW: Grandson//child live with patient at her home. Dtr Tez- Legal Guardian. Patient said she feels lonely all the time even though not alone in house. DC Plan: Home with [facility]. Will need FT/cc wait a week to schedule. PT: Rolando damon for transfer. Not capable of weight on left lower extremity. Low tolerance. Good, sit to stand. Barriers with bed mobility. Weight bearing as tolerated but unable to bear weight. OT: Low energy. Requires a lot of care. Slow going progress. Suggesting care conference and caregiver training. Nursing: DOCUMENTED BY: MICHELA Chanel PATIENT NAME: Jackelyn Bradshaw DATE: January 20, 2024 TIME: 10:49 AM CSN: [id number] Normal [facility] THERAPY NTon 01-20-2024 THERAPY NT HNO ID: [id number] Author: ELLE HOOVER PT Service: Physical Therapy Author Type: Digital Retoucher Type: Therapy (PT/OT/Speech/Resp) Filed: 01/20/2024 16:31 Note Text: Attestation signed by Elle Hoover PT at 01/20/2024 4:31 PM I reviewed and agree with the documentation corresponding to this therapy visit. SIGNATURE: Elle Hoover, PT DATE: January 20, 2024 TIME: 4:31 PM Physical Therapy Care Home Facility Treatment Summary SERVICE DATE: 01/20/2024 SERVICE TIME: 1518 to 1550 ROOM: [place] [address] PT 6 Clicks Score: 9 DISCHARGE RECOMMENDATIONS Home PT Recommended Discharge Disposition Comments: Anticipate need for 24 hour care upon dc due to cognitive limitations, and expected limitations post hip fx. Anticipated Discharge Needs: Family Training, Physical Assist at Home, Supervision at Home, Equipment Recommended Discharge Equipment: To Be Determined GOALS Patient will demonstrate progress with functional mobility to allow safe discharge to home with available support and/or physical assistance. Able to Perform HEP with: Supervision Rolling with: Modified Independent Transfer Supine to/from Sit with: Modified Independent Transfer Sit to/from Stand with: Modified Independent Ambulate with: Stand By Assistance Distance: 50 Device: Wheeled Walker Ambulate Up and Down Steps with: Minimal Assistance Number of Steps: 4 Device: Rail, Cane Rehab Potential: Good Progress Toward Goals: Progressing as expected ASSESSMENT Response to Therapy Interventions: Pain, Limited Participation, Low Activity Tolerance Patient able to transfer from the chair to bedside commode using the rolando steady. Patient performs multiple sit to stands from the rolando steady then states that she would like to get back to the bed at the conclusion of the session due to pain and fatigue. Plan for Next Visit: Sit to Stand Transfers, Exercise Instruction/Handout PRECAUTIONS Weight Bearing Restrictions, Bed/Chair Alarm Left Lower Extremity Weight Bearing Status: WBAT SUBJECTIVE I have to use the bathroom FUNCTIONAL STATUS Bed Mobility Rolling: Maximal Assistance, Additional Information Supine To Sit: Maximal Assistance, Additional Information Sit to Supine: Maximal Assistance (assist LEs) Scooting: Minimal Assistance Transfers Sit To Stand: Moderate Assistance Stand To Sit: Minimal Assistance Bed to Chair Total Assistance Bed To Chair Transfer Type: Lift (rolando steady) Bed To Chair Transfer Equipment: Gait Belt, Lift (rolando steady) Gait Stairs CURRENT HOSPITAL COURSE Admt to [facility] on 01/11 due to mechanical fall at home resulting in L intertrochanteric hip fracture. s/p ORIF L hip. Relevant Past Medical History: Arthitis, CA, HTN, lymphedema, dementia HOME LIVING Patient Lives With: Family (grandson and his and 1year old child, p-atient's dtr lives nearby) Assistance Available: Part-Time (need to verify with family. Patient poor historian.) Entry To Home: Stairs, With Rail Number Of Stairs Into Home: 4 Number Of Stairs To Bed/Bath: 0 Tub/Shower Type: tub shower with chair Laundry: family completes Equipment Owned: Walker- Wheeled, Lift Chair, Grab Bars- Toilet, Grab Bars- Shower, Shower Chair, Hand Held Shower, Commode- Raised, Emergency Response System PRIOR FUNCTIONAL LEVEL Required Assistance, History of Falls Assistance Required With: Cleaning, Laundry, Meals, Medication Management, Stairs, Safety, Self Care, Shopping, Transportation, Finances Pt questionable historian, pt reports IND with ADLS, family completes IALDs. ambulates with wheeled walker, history of falls (unable to recall an approximate amount however), sleeps in adjustable bed. Uses HOB elevated to get out of bed, uses lift chair during the day. States shw walks in the hallway every hour. THERAPY DIAGNOSIS Reduced mobility-other, Muscle Weakness (generalized) TREATMENT INTERVENTIONS Therapeutic Activity (44326) Timed Code Treatment (minutes): 30 Skilled Treatment Time (minutes): 30 TRAINING AND EDUCATION PROVIDED Bed Mobility, Falls Prevention, Sitting Balance, Standing Balance, Role of Physical Therapy, Transfers THERAPEUTIC SKILLS USED Activity Dosing, Cuing Verbal, Cues for Sequencing/Proper Technique for Activity, Physical Assist PLAN PT Frequency: 6 Times Per Week (3-4 weeks) Treatment Interventions: Strengthening, Functional Mobility Training SIGNATURE: Chase Bartlett PTA PATIENT NAME: Jackelyn Bradshaw DATE: January 20, 2024 TIME: 4:02 PM Normal [facility] THERAPY NT HNO ID: [id number] Author: ISABELLA SANCHEZ, OTR/L Service: Occupational Therapy Author Type: Occupational Therapist Type: Therapy (PT/OT/Speech/Resp) Filed: 01/20/2024 12:55 Note Text: Occupational Therapy Care Home Facility Treatment Summary SERVICE DATE: 01/20/2024 SERVICE TIME: 1126 to 1200 ROOM: [place] [address] OT 6 Clicks Score: 13 DISCHARGE RECOMMENDATIONS Home OT (vs discharge to S[facility]IOR CARE/ECF) Recommended Discharge Disposition Comments: Pt's discharge disposition is dependent upon progress made and family ability to provide necessary assistance Anticipated Discharge Needs: Family Training, Physical Assist at Home, Supervision at Home, Equipment Recommended Discharge Equipment: To Be Determined GOALS Patient will demonstrate progress with self-care, cognitive and/or coping needs identified to allow safe discharge to home with available support and/or physical assistance. Grooming with: Set Up Upper Body Bathing with: Set Up Upper Body Dressing with: Set Up Lower Body Bathing with: Minimal Assistance Lower Body Dressing with: Moderate Assistance Toilet Hygiene with: Moderate Assistance Chair Transfer with: Contact Guard Assistance Toilet Transfer with: Contact Guard Assistance Shower Transfer with: Minimal Assistance Tolerate (minutes of functional activity): 45 Functional Activity with: Contact Guard Assistance Progress Toward Goals: Progressing slower than expected Rehab Potential: Fair ASSESSMENT Response to Therapy Interventions: Cognitive Deficits, Good Participation in Activities, Improved Tolerance for Activity, Low Activity Tolerance, Multiple Ongoing Medical Issues, Needs Frequent Redirection or Reinstruction, Requires Additional Time to Complete Activities, Requires Encouragement to Complete Activities This patient was more alert today and participated well in therapy session compared to yesterday. Pt demonstrates need for maximal to total assist for functional bed mobility and transfers with use of rolando steady required. Pt was talkative today and completed basic grooming tasks while seated in chair with set up. Sitting balance while edge of bed was also improved compared to yesterday as she was able to maintain static sitting balance WFLs today. Will continue skilled OT treatment to progress pt in ADL and functional mobility skills re: ADLs. Plan for Next Visit: Bed Mobility, Chair/Commode Transfer Training, Dressing Training, Energy Conservation, Exercise Instruction/Handout, Grooming Training, Sit to Stand Transfers, Sitting Balance, Sitting Tolerance, Standing Balance, Standing Tolerance, Toileting Instruction PRECAUTIONS Weight Bearing Restrictions, Bed/Chair Alarm Left Lower Extremity Weight Bearing Status: WBAT SUBJECTIVE Pt stated she was feeling better today and wanted to sit up in the chair FUNCTIONAL STATUS Activities of Daily Living Assist Level Additional Information Feeding Set Up Grooming Set Up, Minimal Assistance, Additional Information pt required set up to wash face and comb hair while seated in chair Bathing Upper Body Minimal Assistance Bathing Lower Body Maximal Assistance Dressing Upper Body Minimal Assistance Dressing Lower Body Total Assistance Toileting Total Assistance Instrumental Activities of Daily Living Assist Level Additional Information Meal/Beverage Prep Total Assistance Cleaning Total Assistance Laundry Total Assistance Medication Management with Strategies Total Assistance Mobility Assist Level Additional Information Bed Mobility Rolling: Moderate Assistance, Maximal Assistance, Additional Information Supine To Sit: Maximal Assistance, Additional Information of 1 with elevated HOB and use of rail; much verbal cueing required Sit To Supine: Maximal Assistance, Additional Information Sit to Stand Minimal Assistance, Additional Information of 2 to rolando steady Stand to Sit Minimal Assistance, Additional Information of 1 from rolando steady to chair Bed to Chair Total Assistance, Additional Information Bed To Chair Transfer Type: Lift Bed To Chair Transfer Equipment: Gait Belt, Lift (rolando steady) Pt requires use of rolando steady for transfers at this time Toilet/Commode Shower Functional Mobility Maximal Assistance, Total Assistance Functional Mobility Device: (rolando steady used for transfers) CURRENT HOSPITAL COURSE Admt to [facility] on 01/11 due to mechanical fall at home resulting in L intertrochanteric hip fracture. s/p ORIF L hip. Relevant Past Medical History: Arthitis, CA, HTN, lymphedema, dementia HOME LIVING Patient Lives With: Family (grandson and his and 1year old child, p-atient's dtr lives nearby) Assistance Available: Part-Time (need to verify with family. Patient poor historian.) Entry To Home: Stairs, With Rail Number Of Stairs Into Home: 4 Number Of Stairs To Bed/Bath: 0 Tub/Shower Type: tub shower with chair Laundry: family completes (more content not included)... Normal [facility] CASE MGT INMULUGETA Nick 2023 CASE MGT INIT JARET HNO ID: [id number] Author: KRYSTYNA FOX LSW Service: Social Work Author Type: Musical String Maker Type: Care Mgt Initial Assessment Filed: 02/02/2024 16:18 Note Text: Summary: Initial Assessment CARE MANAGEMENT: ASSESSMENT AND DISCHARGE PLAN SERVICE DATE: January 19, 2024 SERVICE TIME: 1540 PCP: Yoav Chakraborty MD Primary Contact: Extended Emergency Contact Information Primary Emergency Contact: Tez Smith Relation: Daughter Secondary Emergency Contact: Lv Parker Mobile Relation: None Admission Status: Inpatient Swing Insurance Provider: [facility] [place] [employer] [facility] Discharge Planning requested by: Per Department Practice Potential Transition Plans Home OT/PT (Dtr also has caregivers lined up) Advance Directives: Legal Guardian Current Living Arrangements and Support Lives with: Family members (Grandnolan Schwab, his Juanis and 1 yr old.) Type of Residence: Private Residence (House) Does the patient have to climb stairs at home?: Yes;stairs outside the home (4 steps) Support: Children, Family members How do you manage to accomplish the following: Independent: Ambulation Needs Assistance: Bathe/Shower;Dress Dependent: Meals/Meal Prep;Medication Management;Transportat ion to appointments/community Current Services/Equipment Current Post-Acute Service(s): DME Current DME Type: Rolling walker, Grab bars, Shower seat, Elevated toilet seat, Other: See Comment (Emergency Response System) Discharge Planning Patient Goal(s): Be able to go home [place] of Choice Explained: [place] of Choice Given: Yes Level of Care Discussed: Home Care (No agency preference) Discharge Planning Participant(s): Family;Guardian Patient/Family Comments: Daughter/Guardian glad to hear that patient is expected to be here 3-4 weeks (aware insurance needs to aprove) Caregiver Assessment: Daughter has caregivers lined up for patient upon DC. Transport at Discharge: TBD Needs Prior to Discharge: Needs Prior to Discharge: To Be Determined;Facility or Agency Choices;Home Care Order Post-Acute Discharge Plan: Home with [facility] Patient lives with grandnolan Schwab,his Juanis and their 1 yr old child. Dtr has caregivers lined up to assist patient upon DC. Dtr agreeable to [facility] and has no agency preference. Told her that patient said she is lonely at home. Daughter not sure why. Said Juanis is around and checks on her regularly. Patient's physical address is [address] [place] [address]. SIGNATURE: MICHELA Chanel PATIENT NAME: Jackelyn Bradshaw DATE: January 19, 2024 TIME: 4:30 PM CONTACT #: [id number] [facility] NURSING PROGon 01-19-2024 NURSING PROG HNO ID: [id number] Author: FRANCA HARRISON RN Service: Nursing Author Type: Registered Nurse Type: Nursing Progress Note Filed: 01/19/2024 11:45 Note Text: Patient sitting up in bed eating breakfast. All treatments and procedures were explained. Patent verbalized understanding. No questions or concerns were voiced at this time. [facility] NURSING PROG HNO ID: [id number] Author: FUNMILAYO MALAGON RN Service: Nursing Author Type: Registered Nurse Type: Nursing Progress Note Filed: 01/19/2024 07:04 Note Text: Patient was slightly confused about her date but was able to state her name. Patient was found picking off a dressing from her leg and had actually caused a scab to form on the left outer aspect of the (L)thigh. Patient dressing were changed last night with Serous sanguineous drainage present. A DuoDerm was applied to the (L) inner aspect of the thigh near the groin due to what appeared to be a blister. Patient had Allevyn's placed on bilateral heels with a pressure injury on the left ankle. Patient denies pain this morning and has been incontinent of urine. Patient is a 2 person transfer. Normal [facility] THERAPY NTon 01-19-2024 THERAPY NT HNO ID: [id number] Author: ISABELLA SANCHEZ OTR/L Service: Occupational Therapy Author Type: Occupational Therapist Type: Therapy (PT/OT/Speech/Resp) Filed: 01/19/2024 15:40 Note Text: Occupational Therapy Care Home Facility Treatment Summary SERVICE DATE: 01/19/2024 SERVICE TIME: 1450 to 1515 ROOM: [place] [address] OT 6 Clicks Score: 13 DISCHARGE RECOMMENDATIONS Home OT (vs discharge to [facility]) Recommended Discharge Disposition Comments: Pt's discharge disposition is dependent upon progress made and family ability to provide necessary assistance Anticipated Discharge Needs: Family Training, Physical Assist at Home, Supervision at Home, Equipment Recommended Discharge Equipment: To Be Determined GOALS Patient will demonstrate progress with self-care, cognitive and/or coping needs identified to allow safe discharge to home with available support and/or physical assistance. Grooming with: Set Up Upper Body Bathing with: Set Up Upper Body Dressing with: Set Up Lower Body Bathing with: Minimal Assistance Lower Body Dressing with: Moderate Assistance Toilet Hygiene with: Moderate Assistance Chair Transfer with: Contact Guard Assistance Toilet Transfer with: Contact Guard Assistance Shower Transfer with: Minimal Assistance Tolerate (minutes of functional activity): 45 Functional Activity with: Contact Guard Assistance Progress Toward Goals: Progressing slower than expected Rehab Potential: Fair ASSESSMENT Response to Therapy Interventions: Limited Participation, Low Activity Tolerance, Cognitive Deficits, Multiple Ongoing Medical Issues, Needs Frequent Redirection or Reinstruction, Requires Additional Time to Complete Activities, Requires Encouragement to Complete Activities This patient demonstrated significant decline in sitting balance EOB this date with need for external support to remain upright. Pt reported not feeling well, stating she felt like she was going to pass out. student accounts manager and aide assisted therapist with vitals taken that were WNLs for BP and SpO2. Pt was not appropriate for transfer to chair at this time due to fatigue, inability to sit upright without maximal external support, and decreased cognitive status. Pt was assisted back to supine position. Will attempt OT treatment 01/20/2024. Plan for Next Visit: Bed Mobility, Chair/Commode Transfer Training, Energy Conservation, Grooming Training, Sit to Stand Transfers, Sitting Balance, Sitting Tolerance, Standing Balance, Standing Tolerance PRECAUTIONS Weight Bearing Restrictions, Bed/Chair Alarm Left Lower Extremity Weight Bearing Status: WBAT SUBJECTIVE Pt stated I cannot sit up, I feel like I am going to pass out FUNCTIONAL STATUS Activities of Daily Living Assist Level Additional Information Feeding Set Up Grooming Minimal Assistance Bathing Upper Body Minimal Assistance Bathing Lower Body Maximal Assistance Dressing Upper Body Minimal Assistance Dressing Lower Body Total Assistance Toileting Total Assistance Instrumental Activities of Daily Living Assist Level Additional Information Meal/Beverage Prep Total Assistance Cleaning Total Assistance Laundry Total Assistance Medication Management with Strategies Total Assistance Mobility Assist Level Additional Information Bed Mobility Rolling: Moderate Assistance, Maximal Assistance, Additional Information Supine To Sit: Maximal Assistance, Additional Information Sit To Supine: Maximal Assistance, Additional Information Sit to Stand (pt unable to stand this date due to feeling ill and demonstrating poor static sitting balance with need for external support) Stand to Sit Minimal Assistance, Additional Information Bed to Chair (unable to attempt due to pt not feeling well; has used rolando steady lift with PT for transfers to chair) Toilet/Commode Shower Functional Mobility Maximal Assistance, Total Assistance Functional Mobility Device: Other: See Comment (rolando steady has been used by PT with pt in transfers) CURRENT HOSPITAL COURSE Admt to [facility] on 01/11 due to mechanical fall at home resulting in L intertrochanteric hip fracture. s/p ORIF L hip. Relevant Past Medical History: Arthitis, CA, HTN, lymphedema, dementia HOME LIVING Patient Lives With: Family (grandson and his and 1year old child, p-atient's dtr lives nearby) Assistance Available: Part-Time (need to verify with family. Patient poor historian.) Entry To Home: Stairs, With Rail Number Of Stairs Into Home: 4 Number Of Stairs To Bed/Bath: 0 Tub/Shower Type: tub shower with chair Laundry: family completes Equipment Owned: Walker- Wheeled, Lift Chair, Grab Bars- Toilet, Grab Bars- Shower, Shower Chair, Hand Held Shower, Commode- Raised, Emergency Response System PRIOR FUNCTIONAL LEVEL Required Assistance, History of Falls Assistance Required With: Cleaning, Laundry, Meals, Medication Management, Stairs, Safety, Se (more content not included)... Normal [facility] THERAPY NT HNO ID: [id number] Author: MICKIE RUTLEDGE, PT, DPT Service: Physical Therapy Author Type: Physical Therapist Type: Therapy (PT/OT/Speech/Resp) Filed: 01/19/2024 14:48 Note Text: Physical Therapy Care Home Facility Treatment Summary SERVICE DATE: 01/19/2024 SERVICE TIME: 1019 to 1049 ROOM: [place] [address] PT 6 Clicks Score: 9 DISCHARGE RECOMMENDATIONS Home PT Recommended Discharge Disposition Comments: Anticipate need for 24 hour care upon dc due to cognitive limitations, and expected limitations post hip fx. Anticipated Discharge Needs: Family Training, Physical Assist at Home, Supervision at Home, Equipment Recommended Discharge Equipment: To Be Determined GOALS Patient will demonstrate progress with functional mobility to allow safe discharge to home with available support and/or physical assistance. Able to Perform HEP with: Supervision Rolling with: Modified Independent Transfer Supine to/from Sit with: Modified Independent Transfer Sit to/from Stand with: Modified Independent Ambulate with: Stand By Assistance Distance: 50 Device: Wheeled Walker Ambulate Up and Down Steps with: Minimal Assistance Number of Steps: 4 Device: Rail, Cane Rehab Potential: Good Progress Toward Goals: Progressing as expected ASSESSMENT Patient presented with increased pain and stiffness this date, limited to sitting EOB. Patient is demonstrating ability to activate quads and gluts on L LE, can benefit from continued training in transfers and standing tolerance. Plan for Next Visit: Bed Mobility, Pre-gait Activities, Sit to Stand Transfers PRECAUTIONS Weight Bearing Restrictions, Bed/Chair Alarm Left Lower Extremity Weight Bearing Status: WBAT SUBJECTIVE Patient laying in bed upon entering room, nursing students in room finishing ADL, patient agreeable to therapy session. I will do what I can FUNCTIONAL STATUS Bed Mobility Rolling: Maximal Assistance, Additional Information Supine To Sit: Maximal Assistance, Additional Information Sit to Supine: Total Assistance, Additional Information Scooting: Moderate Assistance Transfers Sit To Stand: Moderate Assistance, Additional Information Stand To Sit: Minimal Assistance Bed to Chair Additional Information Bed To Chair Transfer Type: (patient declined transfer out of bed this date due to fatigue) Bed To Chair Transfer Equipment: Gait Belt, Lift Gait Stairs CURRENT HOSPITAL COURSE Admt to [facility] on 01/11 due to mechanical fall at home resulting in L intertrochanteric hip fracture. s/p ORIF L hip. Relevant Past Medical History: Arthitis, CA, HTN, lymphedema, dementia HOME LIVING Patient Lives With: Family (grandson and his and 1year old child, p-atraghu's dtr lives nearby) Assistance Available: Part-Time (need to verify with family. Patient poor historian.) Entry To Home: Stairs, With Rail Number Of Stairs Into Home: 4 Number Of Stairs To Bed/Bath: 0 Tub/Shower Type: tub shower with chair Laundry: family completes Equipment Owned: Walker- Wheeled, Lift Chair, Grab Bars- Toilet, Grab Bars- Shower, Shower Chair, Hand Held Shower, Commode- Raised, Emergency Response System PRIOR FUNCTIONAL LEVEL Required Assistance, History of Falls Assistance Required With: Cleaning, Laundry, Meals, Medication Management, Stairs, Safety, Self Care, Shopping, Transportation, Finances Pt questionable historian, pt reports IND with ADLS, family completes IALDs. ambulates with wheeled walker, history of falls (unable to recall an approximate amount however), sleeps in adjustable bed. Uses HOB elevated to get out of bed, uses lift chair during the day. States shw walks in the hallway every hour. THERAPY DIAGNOSIS Reduced mobility-other, Muscle Weakness (generalized) TREATMENT INTERVENTIONS EXERCISE Ankle pumps, quad sets, glut sets, BLE [id number] SAQ 1x10 L LE in supine Patient completed standing trials from edge of bed, completed x3 standing trials with FWW support. mod A From therapist to come to upright standing with cues for upright posture and to acheive full hip extension, patient maintains a crouched posture with limited weight bearing on L LE due to pain. TRAINING AND EDUCATION PROVIDED THERAPEUTIC SKILLS USED PLAN PT Frequency: 6 Times Per Week (3-4 weeks) Treatment Interventions: Strengthening, Functional Mobility Training Please see PT flowsheet for accurate information regarding therapy treatment session. Addendum: additional information added SIGNATURE: Mickie Rutledge PT, DPT PATIENT NAME: Jackelyn Bradshaw DATE: January 19, 2024 TIME: 2:35 PM Normal [facility] Basic metabolic 2000 panelon 01-18-2024 Anion gap [Moles/Vol] 7 mmol/L Low 9-18 [facility] Comment on above: Order Comment: Speci men Type: BLOOD SPECIMEN Ordering Facility: [facility] Address: [address] [place] [address] Performed By: #### 2 4321-2 #### [facility] CLIA [id number] [address] [place] [address] [place] Calcium [Mass/Vol] 8.4 mg/dL Low 8.5-10.2 [facility] Comment on above: Order Comment: Speci men Type: BLOOD SPECIMEN Ordering Facility: [facility] Address: [address] [place] [address] Performed By: #### 2 4321-2 #### [facility] CLIA [id number] [address] [place] [address] [place] Chloride [Moles/Vol] 108 mmol/L High 97-105 [facility] Comment on above: Order Comment: Speci men Type: BLOOD SPECIMEN Ordering Facility: [facility] Address: [address] [place] [address] Performed By: #### 2 4321-2 #### [facility] CLIA [id number] [address] [place] [address] [place] CO2 [Moles/Vol] 27 mmol/L Normal 22-30 [facility] Comment on above: Order Comment: Speci men Type: BLOOD SPECIMEN Ordering Facility: [facility] Address: [address] [place] [address] Performed By: #### 2 4321-2 #### [facility] CLIA [id number] [address] [place] [address] [place] Creatinine [Mass/Vol] 1.60 mg/dL High 0.58-0.96 [facility] Comment on above: Order Comment: Speci men Type: BLOOD SPECIMEN Ordering Facility: [facility] Address: [address] [place] [address] Performed By: #### 2 4321-2 #### [facility] CLIA [id number] [address] [place] [address] [place] Creatinine and Glomerular filtration rate.predicted panel (S/P/Bld) 32 mL/min/1.73m??? Low >=60 [facility] Comment on above: Order Comment: Hilary ocampo Type: BLOOD SPECIMEN Ordering Facility: [facility] Address: [address] [place] [address] Result Comment: Patience mated Glomerular Filtration Rate (eGFR) is calculated using the 2020 CKD-EPI creatinine equation. This equation utilizes serum creatinine, sex, and age as parameters. The creatinine assay has traceable calibration to isotope dilution-mass spectrometry. Refer to KDIGO guidelines for clinical interpretation. In patients with unstable renal function, e.g. those with acute kidney injury, the eGFR may not accurately reflect actual GFR. Performed By: #### 2 4321-2 #### [facility] CLIA [id number] [address] [place], [place] [id number] [place] Glucose [Mass/Vol] 100 mg/dL High 74-99 [facility] Comment on above: Order Comment: Hilary ocampo Type: BLOOD SPECIMEN Ordering Facility: [facility] Address: [address] [place] [address] Result Comment: The [place] Diabetes Association (ADA) provides guidance for cutoff values for fasting glucose and random glucose. The ADA defines fasting as no caloric intake for at least 8 hours. Fasting plasma glucose results between 100 to 125 mg/dL indicate increased risk for diabetes (prediabetes). Fasting plasma glucose results greater than or equal to 126 mg/dL meet the criteria for diagnosis of diabetes. In the absence of unequivocal hyperglycemia, results should be confirmed by repeat testing. In a patient with classic symptoms of hyperglycemia or hyperglycemic crisis, random plasma glucose results greater than or equal to 200 mg/dL meet the criteria for diagnosis of diabetes. Reference: Standards of Medical Care in Diabetes 2016, [place] Diabetes Association. Diabetes Care. 2016.39(Suppl 1). Performed By: #### 2 4321-2 #### [facility] CLIA [id number] [address] [place] [address] [place] Potassium [Moles/Vol] 5.1 mmol/L Normal 3.7-5.1 [facility] Comment on above: Order Comment: Hilary ocampo Type: BLOOD SPECIMEN Ordering Facility: [facility] Address: [address] [place] [address] Performed By: #### 2 4321-2 #### [facility] CLIA [id number] [address] [place] [address] [place] [facility] Sodium [Moles/Vol] 142 mmol/L Normal 136-144 [facility] Comment on above: Order Comment: Speci men Type: BLOOD SPECIMEN Ordering Facility: [facility] Address: [address] [place] [address] Performed By: #### 2 4321-2 #### [facility] CLIA [id number] [address] [place] [address] [place] Urea nitrogen [Mass/Vol] 62 mg/dL High 7-21 [facility] Comment on above: Order Comment: Speci men Type: BLOOD SPECIMEN Ordering Facility: [facility] Address: [address] [place] [address] Performed By: #### 2 4321-2 #### [facility] CLIA [id number] [address] [place] [id number] [facility] [place] CBC panel Auto (Bld)on 01-17 Erythrocyte distribution width (RBC) [Ratio] 14.3 % Normal 11.5-15.0 [facility] Comment on above: Order Comment: Speci men Type: BLOOD SPECIMEN Ordering Facility: [facility] Address: [address] [place] [address] Performed By: #### 5 8410-2 #### [facility] CLIA [id number] [address] [place] [address] [place] Hematocrit (Bld) [Volume fraction] 26.0 % Low 36.0-46.0 [facility] Comment on above: Order Comment: Speci men Type: BLOOD SPECIMEN Ordering Facility: [facility] Address: [address] [place] [address] Performed By: #### 5 8410-2 #### [facility] CLIA [id number] [address] [place] [address] [place] Hemoglobin (Bld) [Mass/Vol] 8.2 g/dL Low 11.5-15.5 [facility] Comment on above: Order Comment: Speci men Type: BLOOD SPECIMEN Ordering Facility: [facility] Address: [address] [place] [address] Performed By: #### 5 8410-2 #### [facility] CLIA [id number] [address] [place] [address] [facility] MCH (RBC) [Entitic mass] 31.7 pg Normal 26.0-34.0 [facility] Comment on above: Order Comment: Speci men Type: BLOOD SPECIMEN Ordering Facility: [facility] Address: [address] [place] [address] Performed By: #### 5 8410-2 #### [facility] CLIA [id number] [address] [place], [place] [id number] [place] [address] [place] MCHC (RBC) [Mass/Vol] 31.5 g/dL Normal 30.5-36.0 [facility] Comment on above: Order Comment: Speci men Type: BLOOD SPECIMEN Ordering Facility: [facility] Address: [address] [place] [address] Performed By: #### 5 8410-2 #### [facility] CLIA [id number] [address] [place] [address] [place] MCV (RBC) [Entitic vol] 100.4 fL High 80.0-100.0 [facility] Comment on above: Order Comment: Speci men Type: BLOOD SPECIMEN Ordering Facility: [facility] Address: [address] [place] [address] Performed By: #### 5 8410-2 #### [facility] CLIA [id number] [address] [place], [place] [id number] [place] [address] Platelet mean volume (Bld) [Entitic vol] 10.4 fL Normal 9.0-12.7 [facility] Comment on above: Order Comment: Speci men Type: BLOOD SPECIMEN Ordering Facility: [facility] Address: [address] [place] [address] Performed By: #### 5 8410-2 #### [facility] CLIA [id number] [address] [place], [place] [id number] [place] [address] OF [facility] Platelets (Bld) [#/Vol] 150 10*3/uL Normal 150-400 [facility] Comment on above: Order Comment: Hilary ocampo Type: BLOOD SPECIMEN Ordering Facility: [facility] Address: [address] [place] [address] Performed By: #### 5 8410-2 #### [facility] CLIA [id number] [address] [place], [place] [id number] [place] [address] OF [facility] RBC (Bld) [#/Vol] 2.59 10*6/uL Low 3.90-5.20 [facility] Comment on above: Order Comment: Speci men Type: BLOOD SPECIMEN Ordering Facility: [facility] Address: [address] [place] [address] Performed By: #### 5 8410-2 #### [facility] CLIA [id number] [address] [place] [address] WBC (Bld) [#/Vol] 7.60 10*3/uL Normal 3.70-11.00 [facility] Comment on above: Order Comment: Hilary ocampo Type: BLOOD SPECIMEN Ordering Facility: [facility] Address: [address] [place] [address] Performed By: #### 5 8410-2 #### [facility] CLIA [id number] [address] OF [facility] HISTORY PHYSICALon HISTORY PHYSICAL HNO ID: [id number] Author: ARNIE GALVIN APRN.CNP Service: Hospital Medicine Author Type: Nurse Practitioner Type: H&P Filed: 01/18/2024 23:00 Note Text: Attestation signed by Hermes Richardson MD at 01/19/2024 3:41 PM [facility] STAFF PHYSICIAN NOTE OF PERSONAL INVOLVEMENT IN CARE I have reviewed the history and physical examination obtained and documented by the nurse practitioner and discussed the case on as needed basis Principal Problem: Aftercare (POA: Yes) Active Problems: HTN (hypertension) (POA: Yes) Acute kidney injury superimposed on CKD (HCC) (HCC) (POA: Yes) Cancer of breast, intraductal, left (POA: Yes) Obesity, Class I, BMI 30-34.9 (POA: Yes) Status post hip surgery (POA: Yes) Dementia (HCC) (POA: Yes) Anemia (POA: Yes) Urinary retention (POA: Unknown) Resolved Problems: * No resolved hospital problems. * Hermes Richardson MD, [facility] Staff,Dept of Hospital Medicine January 19, 2024 3:41 PM Pager:Click here to page DEPARTMENT OF HOSPITAL MEDICINE HISTORY AND PHYSICAL EXAM SERVICE DATE: 01/18/2024 SERVICE TIME: 9:29 AM Primary Care Physician: Yoav Chakraborty MD NIGHT AND WEEKEND COVERAGE: [facility] MARGARET 7a-7p Page [phone] [id number] Subjective CHIEF COMPLAINT: rehabilitation following hospitalization HPI: This is a 83 year old female with PMH dementia, breast cancer, arthritis, HTN, CKD, presented to [place] on 01/12/2024 following a fall at home. She was found to have left hip fracture and underwent ORIF on 01/13/2024. Post-op course was complicated by acute blood loss anemia likely 2/2 surgery; Hgb was 7.6 at [place]. FORTINO on CKD that was resolving at [place] with IVF; Cr 1.97. Lisinopril was initially held, but resumed at [place]. She is WBAT. She was started on Eliquis BID x30 days. She was DCd with sal due to urinary retention. Urine cx was + <1000 salina aguilar (no tx received). PT/OT recommended SNF at [place], thus she was transferred to [facility] for further rehab services. Today, patient is resting in bed. She is AANDO x3. She denies pain to her left hip. No SOB or CP. She lives at home with family and is hopeful to return at [place]. Call to legal guardian Tez-- updated on POC. Discussed code status and she wishes patient remains DNR-cca/DNI. Tez states sal was placed when in the ED; no voiding trial at the hospital. No hx of urinary retention. She reports RUE midline was placed for IVF as patient is a hard stick for IV access. PAST MEDICAL HISTORY Diagnosis Date Arthritis Cancer (HCC) 10/05/2006 left breast Dementia (HCC) Hypertension Lymphedema left arm PAST SURGICAL HISTORY Procedure Laterality Date APPENDECTOMY CHOLECYSTECTOMY HX HYSTERECTOMY HX LUMPECTOMY/RADIOTHERAP Y DIAG MAMM/A10 PAST SURGICAL HISTORY OF CARDIAC ABLATION PAST SURGICAL HISTORY OF ABDOMINAL ADHESIONS REMOVED FAMILY HISTORY Problem Relation Age of Onset Breast Cancer Maternal Grandmother 34 Social History Tobacco Use Smoking status: Former Types: Cigarettes Start date: 12/20/2005 Smokeless tobacco: Never Substance Use Topics Alcohol use: No Drug use: No PRIOR TO ADMISSION MEDICATIONS: amLODIPine (NORVASC) 5 mg tablet, Take 1 tablet by mouth twice daily., Disp: , Rfl: lisinopril (ZESTRIL) 20 mg tablet, Take 1 tablet by mouth once daily., Disp: , Rfl: memantine (NAMENDA) 10 mg tablet, Take 10 mg by mouth twice daily., Disp: , Rfl: OLANZapine (ZYPREXA) 5 mg tablet, Take 5 mg by mouth daily at bedtime., Disp: , Rfl: Galantamine Hydrobromide (RAZADYNE) 24 mg 24 hr capsule, Take 24 mg by mouth once daily., Disp: , Rfl: divalproex sprinkle (DEPAKOTE SPRINKLES) 125 mg capsule, Take 125 mg by mouth twice daily., Disp: , Rfl: melatonin 3 mg tablet, Take 3 mg by mouth daily at bedtime., Disp: , Rfl: oxybutynin (DITROPAN) 5 mg tablet, Take 5 mg by mouth twice daily., Disp: , Rfl: citalopram (CELEXA) 20 mg tablet, Take 1 tablet by mouth twice daily., Disp: 60 tablet, Rfl: 3 acetaminophen (TYLENOL) 325 mg tablet, Take 2 tablets by mouth every 6 hours as needed., Disp: , Rfl: ALLERGIES Allergen Reactions Azithromycin Swelling Darvocet A500 [Prop* Mental Status Change Darvon [Propoxyphen* Mental Status Change Demerol [Meperidine* Vomiting Penicillins Sulfa (Sulfonamide * Teramycin [Oxytetra* REVIEW OF SYSTEM: Review of Systems Constitutional: Negative for chills and fever. Respiratory: Negative. Cardiovascular: Negative. Gastrointestinal: Negative for abdominal pain, constipation, heartburn, nausea and vomiting. Musculoskeletal: Negative for joint pain. Neurological: Negative for dizziness and headaches. Objective PHYSICAL EXAM: BP 160/55 Pulse 62 Temp (Src) 97.4 (Oral) Resp 18 Ht 5' 3 (1.60m) Wt 184 lb 1.4 oz (83.5kg) SpO2 96% BMI 32. (more content not included)... Normal [facility] NUTRITIONon 01-18-2024 NUTRITION HNO ID: [id number] Author: MENDOZA COREAS RD Service: Nutrition Therapy Author Type: Registered Dietitian Type: Nutrition Filed: 01/18/2024 10:24 Note Text: NUTRITION THERAPY INITIAL ASSESSMENT SERVICE DATE: 01/18/2024 SERVICE TIME: 09:46 AM Nutrition Assessment: Recommended Malnutrition Diagnosis: Unable to Identify Malnutrition at this time Nutrition Diagnosis: Problem: Increased nutrient needs Related to: Wound healing As evidenced by: Procedure/surgery Estimated kilocalorie needs: 5437-8217 Calorie Calculation Method: Ellsworth-St. Jeor (with activity factor) (adjusted body wt 60.1kg) Estimated protein needs (grams): 60-72 Grams protein determined by: 1.0 - 1.2 g/kg GFR 32 Care Plan: Continue current diet Vitamins and Minerals: Multivitamin with minerals, Vitamin C (recommend MVI AND VitC 500mg QD) Monitor and Evaluation: Meet greater than 75% of estimated needs, Monitor fluid/electrolyte balance, Monitor labs, I/Os, vital signs, weight Discharge Recommendations: Diet Diet: regualr HPI: 83 y/o female w/ PMHx below here for Aftercare [Z51.89] r/t fall hip injury s/p Sx. Consult for MST1 r/t appetite. PAST MEDICAL HISTORY Diagnosis Date Arthritis Cancer (HCC) 2007 left breast Hypertension Lymphedema left arm Intake History: Nutrition Intake Prior to Admission: Greater than 75% estimated energy needs greater than or equal to 3 months Current Nutrition Intake: Greater than 75% estimated energy needs (only 2 meals at 75 and 100% currently) Diet Orders (From admission, onward) Start Ordered 01/17/24 1430 DIET REGULAR START NOW 01/17/24 1428 Anthropometrics: Height: 160 cm (5' 3) Weight: 83.5 kg (184 lb 1.4 oz) Dosing Weight: 52.2 kg (115 lb) Usual Weight: 77.6 kg (171 lb 1.2 oz) 08/07/2023 Usual Weight Obtained From: Chart Review Body mass index is 32.61 kg/m?. Weight change percentage over time: +7.6% gain Weight Change: Weight gain Physical Exam: Reason NFPE not performed: Declined Potential micronutrient deficiency: Skin (L-hip Sx site, R-heel wound) Edema/Ascites: Lower extremities (1+ to non pitting/trace per chart) Lower Extremity: Mild 1+ GI Symptoms: None Functional Status: No Change Potential Signs of Inflammation: Acute post-operative MNT Billing: $ Initial Assessment: 1-15 minutes SIGNATURE: [address] PATIENT NAME: Jackelyn Bradshaw DATE: January 18, 2024 TIME: 9:46 AM Normal [facility] THERAPY NTon 01-18-2024 THERAPY NT HNO ID: [id number] Author: ISABELLA SANCHEZ OTR/Lashae Service: Occupational Therapy Author Type: Occupational Therapist Type: Therapy (PT/OT/Speech/Resp) Filed: 01/18/2024 17:41 Note Text: Summary: OT Evaluation Occupational Therapy Care Home Facility Evaluation Summary SERVICE DATE: 01/18/2024 SERVICE TIME: 1415 to 1453 ROOM: [place] [address] OT 6 Clicks Score: 13 DISCHARGE RECOMMENDATIONS Home OT (vs discharge to SENIOR CARE/ECF) Recommended Discharge Disposition Comments: Pt's discharge disposition is dependent upon progress made and family ability to provide necessary assistance Anticipated Discharge Needs: Family Training, Physical Assist at Home, Supervision at Home, Equipment Recommended Discharge Equipment: To Be Determined GOALS Patient will demonstrate progress with self-care, cognitive and/or coping needs identified to allow safe discharge to home with available support and/or physical assistance. Grooming with: Set Up Upper Body Bathing with: Set Up Upper Body Dressing with: Set Up Lower Body Bathing with: Minimal Assistance Lower Body Dressing with: Moderate Assistance Toilet Hygiene with: Moderate Assistance Chair Transfer with: Contact Guard Assistance Toilet Transfer with: Contact Guard Assistance Shower Transfer with: Minimal Assistance Tolerate (minutes of functional activity): 45 Functional Activity with: Contact Guard Assistance Progress Toward Goals: Progressing slower than expected Rehab Potential: Fair ASSESSMENT Response to Therapy Interventions: Good Participation in Activities, Cognitive Deficits, Low Activity Tolerance, Multiple Ongoing Medical Issues, Needs Frequent Redirection or Reinstruction, Requires Additional Time to Complete Activities This 83 year old patent presents with functional skills far below her baseline s/p recent fall with resultant left hip fracture with surgical repair. Pt has cognitive deficits and was a poor historian; PLOF and home set up will need to be confirmed with family. Pt would benefit from skilled OT to address ADL training, functional mobility training, standing balance, and family training prior to discharge. Plan for Next Visit: Bed Mobility, Chair/Commode Transfer Training, Energy Conservation, Grooming Training, Sit to Stand Transfers, Standing Balance, Standing Tolerance PRECAUTIONS Weight Bearing Restrictions, Bed/Chair Alarm Left Lower Extremity Weight Bearing Status: WBAT SUBJECTIVE Pt reports she wants to get better at moving and walking so she can return home with her family FUNCTIONAL STATUS Activities of Daily Living Assist Level Additional Information Feeding Set Up Grooming Minimal Assistance Bathing Upper Body Minimal Assistance Bathing Lower Body Maximal Assistance Dressing Upper Body Minimal Assistance Dressing Lower Body Total Assistance Toileting Total Assistance Instrumental Activities of Daily Living Assist Level Additional Information Meal/Beverage Prep Total Assistance Cleaning Total Assistance Laundry Total Assistance Medication Management with Strategies Total Assistance Mobility Assist Level Additional Information Bed Mobility Rolling: Moderate Assistance, Maximal Assistance, Additional Information moderate assist to roll to right side with use of rail and maximal cueing; maximal assist to roll to left side with use of rail and maximal cueing. Supine To Sit: Maximal Assistance, Additional Information elevated HOB and use of rail Sit To Supine: Maximal Assistance, Additional Information of 2 Sit to Stand Minimal Assistance, Additional Information cues for hand placement Stand to Sit Minimal Assistance, Additional Information cues for hand placement Bed to Chair (not attempted; pt used rolando steady with PT earlier in the day) Toilet/Commode Shower Functional Mobility CURRENT HOSPITAL COURSE Admt to [facility] on 01/11 due to mechanical fall at home resulting in L intertrochanteric hip fracture. s/p ORIF L hip. Relevant Past Medical History: Arthitis, CA, HTN, lymphedema, dementia HOME LIVING Patient Lives With: Family (grandson and his and 1year old child, p-atient's dtr lives nearby) Assistance Available: Part-Time (need to verify with family. Patient poor historian.) Entry To Home: Stairs, With Rail Number Of Stairs Into Home: 4 Number Of Stairs To Bed/Bath: 0 Tub/Shower Type: tub shower with chair Laundry: family completes Equipment Owned: Walker- Wheeled, Lift Chair, Grab Bars- Toilet, Grab Bars- Shower, Shower Chair, Hand Held Shower, Commode- Raised, Emergency Response System PRIOR FUNCTIONAL LEVEL Required Assistance, History of Falls Assistance Required With: Cleaning, Laundry, Meals, Medication Management, Stairs, Safety, Self Care, Shopping, Tr (more content not included)... Normal [facility] THERAPY NT HNO ID: [id number] Author: LETICIA WALTERS, PT Service: Physical Therapy Author Type: Physical Therapist Type: Therapy (PT/OT/Speech/Resp) Filed: 01/18/2024 12:55 Note Text: Summary: PT eval Physical Therapy Care Home Facility Evaluation Summary SERVICE DATE: 01/18/2024 SERVICE TIME: 1047 to 1126 ROOM: [place] [address] PT 6 Clicks Score: 9 DISCHARGE RECOMMENDATIONS Home PT Recommended Discharge Disposition Comments: Anticipate need for 24 hour care upon dc due to cognitive limitations, and expected limitations post hip fx. Anticipated Discharge Needs: Family Training, Physical Assist at Home, Supervision at Home Recommended Discharge Equipment: To Be Determined GOALS Patient will demonstrate progress with functional mobility to allow safe discharge to home with available support and/or physical assistance. Able to Perform HEP with: Supervision Rolling with: Modified Independent Transfer Supine to/from Sit with: Modified Independent Transfer Sit to/from Stand with: Modified Independent Ambulate with: Stand By Assistance Distance: 50 Device: Wheeled Walker Ambulate Up and Down Steps with: Minimal Assistance Number of Steps: 4 Device: Rail, Cane Rehab Potential: Good Progress Toward Goals: Progressing as expected ASSESSMENT Response to Therapy Interventions: Cognitive Deficits, Requires Additional Time to Complete Activities Patient is 83 year old female s/p mechanical fall with resulting L hip fx, s/p ORIF. Patient presenting well below rpeorted baseline mobility levels. patient with strong family support. Anticipate need for 24 hour assistance upon dc. Currently ease of mobility impacted by generalized stiffness and limited ROM as well as weakness throughtout. Plan for Next Visit: Bed Mobility, Sit to Stand Transfers, Chair Transfer Training PRECAUTIONS Weight Bearing Restrictions Left Lower Extremity Weight Bearing Status: WBAT SUBJECTIVE Patient able to answer simple yes no questions and provide some detail on PLOF. Able to recant names of family members. Reports mechanism of injury as a fall from when she was turning around in the hallway. She reports she walks the hallway at e every hour. FUNCTIONAL STATUS Bed Mobility Rolling: Moderate Assistance (assist with LE, heavy use of rails) Supine To Sit: Moderate Assistance (assist with drawsheet to scoot to EOB, HOB elevated 45 degrees.) Sit to Supine: Maximal Assistance Scooting: Moderate Assistance Transfers Sit To Stand: Minimal Assistance (with bed elevated 22) Stand To Sit: Minimal Assistance Bed to Chair Total Assistance Bed To Chair Transfer Type: Lift (rolando steady, attempted with wheeled walker. Patient unable to WB to L LE) Bed To Chair Transfer Equipment: Gait Belt, Lift Gait Stairs CURRENT HOSPITAL COURSE Admt to [facility] on 01/11 due to mechanical fall at home resulting in L intertrochanteric hip fracture. s/p ORIF L hip. Relevant Past Medical History: Arthitis, CA, HTN, lymphedema, dementia HOME LIVING Patient Lives With: Family (grandson and his and 1year old child, p-atient's dtr lives nearby) Assistance Available: Part-Time (need to verify with family. Patient poor historian.) Entry To Home: Stairs, With Rail Number Of Stairs Into Home: 4 Number Of Stairs To Bed/Bath: 0 Tub/Shower Type: tub shower with chair Laundry: family completes Equipment Owned: Walker- Wheeled, Lift Chair, Grab Bars- Toilet, Grab Bars- Shower, Shower Chair (Med alert) PRIOR FUNCTIONAL LEVEL Required Assistance, History of Falls Assistance Required With: Cleaning, Laundry, Meals, Medication Management, Safety, Shopping, Transportation, Stairs, Finances Pt questionable historian, pt reports IND with ADLS, family completes IALDs. ambulates with wheeled walker, history of falls (unable to recall an approximate amount however), sleeps in adjustable bed. Uses HOB elevated to get out of bed, uses lift chair during the day. States shw walks in the hallway every hour. THERAPY DIAGNOSIS Reduced mobility-other, Muscle Weakness (generalized) TREATMENT INTERVENTIONS Evaluation, Therapeutic Activity (64957), Therapeutic Exercise (60654) Timed Code Treatment (minutes): 20 Skilled Treatment Time (minutes): 39 EXERCISE Exercises Exercise Performed: Ankle Pumps, Glut Sets, Heel Slides, Hip Abduction, SAQ Ankle Pumps (number of reps): 10B Glut Sets (number of reps): 10 Heel Slides (number of reps): 10x B with assist SAQ (number of reps): 10x B Hip Abduction (number of reps): 10xB with assist Exercise: sit to stand for sarastedy, stood 10 sec 5x TRAINING AND EDUCATION PROVIDED Assistive Device Use, Bed Mobility, Discharge Planning, Exercise Program, Expected Functional Level, Role of Physical (more content not included)... Normal [facility] Basic Metabolic Profile (BMP )on 01-17-2024 BUN/CRE 39.1 RATIO High 10-20 [facility] Comment on above: Performed By: #### L 500.2500 #### [facility] [address] [place], [address] CA,Total 7.7 mg/dL Low 8.5-10.1 [facility] Comment on above: Performed By: #### L 500.2500 #### [facility] [address] [place], [address] Chloride [Moles/Vol] 114 mmol/L High 98-107 [facility] Comment on above: Performed By: #### L 500.2500 #### [facility] [address] [place], [address] CO2 [Moles/Vol] 26.0 mmol/L Normal 21.0-32.0 [facility] Comment on above: Performed By: #### L 500.2500 #### [facility] [address] [place], [address] Creatinine [Mass/Vol] 1.97 mg/dL High 0.55-1.02 [facility] Comment on above: Result Comment: The validity of the calculated GFR GFRAA in patients over 70 years has not been determined. Clinical correlation is essential. Performed By: #### L 500.2500 #### [facility] [address] [place], [address] ECRCL 20.59 ml/min Normal [facility] Comment on above: Performed By: #### L 500.2500 #### [facility] [address] [place], [address] EST GFR - AA 31 mL/min Low >60 [facility] Comment on above: Result Comment: Afri can [place] GFR Calc Performed By: #### L 500.2500 #### [facility] [address] [place], [address] GAP 1 Low 5-15 [facility] Comment on above: Performed By: #### L 500.2500 #### [facility] [address] [place], [address] GFR/1.73 sq M.predicted among non-blacks MDRD (S/P/Bld) [Vol rate/Area] 26 mL/min/{1.73_m2} Low >60 [facility] Comment on above: Result Comment: Non- GFR Calc Performed By: #### L 500.2500 #### [facility] [address] [place], [address] Glucose [Mass/Vol] 90 mg/dL Normal 74-106 [facility] Comment on above: Performed By: #### L 500.2500 #### [facility] [address] [place], [address] Potassium [Moles/Vol] 5.2 mmol/L High 3.5-5.1 [facility] Comment on above: Performed By: #### L 500.2500 #### [facility] [address] [place], [address] Sodium [Moles/Vol] 141 mmol/L Normal 136-145 [facility] Comment on above: Performed By: #### L 500.2500 #### [facility] [address] [place], [address] Urea nitrogen [Mass/Vol] 77 mg/dL High 7-18 [facility] Comment on above: Performed By: #### L 500.2500 #### [facility] [address] [place], [address] Basophil percentageOrdered B y: Dani Jaramillo on 01-17-2024 Chloride [Moles/Vol] 114 mmol/L 98-107 [facility] Glucose [Mass/Vol] 90 mg/dL 74-106 [facility] Hemoglobin (Bld) [Mass/Vol] 7.6 g/dL 12.0-15.0 [facility] Potassium [Moles/Vol] 5.2 mmol/L 3.5-5.1 [facility] Sodium [Moles/Vol] 141 mmol/L 136-145 [facility] HH, Hemoglobin AND Hematocri ton 01-17-2024 Hematocrit (Bld) [Volume fraction] 23.6 % Low [address] [place] [address] Comment on above: Performed By: #### L 500.4100, L100.0100, L501.9520, L501.9985, L500.4050, L506.1000 #### [facility] [address] [place], [address] Hemoglobin (Bld) [Mass/Vol] 7.6 g/dL Low 12.0-15.0 [facility] Comment on above: Performed By: #### L 500.4100, L100.0100, L501.9520, L501.9985, L500.4050, L506.1000 #### [facility] [address] [place], [address] Hematocrit Auto (Bld) [Volum e fraction]Ordered By: Dani Jaramillo on 01-17-2024 Hematocrit (Bld) [Volume fraction] 23.6 % 37-47 [facility] - Chemistry and C hemistry - challengeOrdered By: Dani Jaramillo on 01-17-2024 CO2 [Moles/Vol] 26.0 mmol/L 21.0-32.0 [facility] Urea nitrogen/Creatinine [Mass ratio] 39.1 mg/mg 10-20 [facility] NURSING PROGon 01-17-2024 NURSING PROG HNO ID: [id number] Author: SINA TARIQ, NARINDER Service: ? Author Type: Registered Nurse Type: Nursing Progress Note Filed: 01/17/2024 19:13 Note Text: Pt transferred from [facility] to [facility] for rehab. Room 107B, bed alarm on. Pt watched channel 95, no fall video. Normal [facility] No Panel InformationOrdered By: Dani Jaramillo on 01-17-2024 Estimated Creatinine Clearance Calc 20.59 ml/min [facility] Estimated GFR (MDRD) Amer 31 mL/min >60 [facility] Comment on above: GFR Calc Estimated GFR (MDRD) Non-Af Amer 26 mL/min >60 [facility] Comment on above: Non- GFR Calc Serum or plasma calcium phill urement (mass/volume)Ordered By: Dani Jaramillo on 01-17-2024 Calcium [Mass/Vol] 7.7 mg/dL 8.5-10.1 [facility] Serum or plasma creatinine m easurement (mass/volume)Ordered By: Dani Jaramillo on 01-17-2024 Creatinine [Mass/Vol] 1.97 mg/dL 0.55-1.02 [facility] Comment on above: The validity of the calculated GFR & GFRAA in patients over 70 years has not been determined. Clinical correlation is essential. Serum or plasma urea nitroge n measurement (mass/volume)Ordered By: Dani Jaramillo on 01-17-2024 Urea nitrogen [Mass/Vol] 77 mg/dL 7-18 [facility] Thin prep Papanicolaou smear with manual screeningOrdered By: Dani Jaramillo on 01-17-2024 Thin prep Papanicolaou smear with manual screening 1 5-15 [facility] BRCon 01-16-2024 RC Normal Neg [facility] Comment on above: Result Comment: [id number] RC TRANSFUSED 01/16/24 1841 Performed By: #### L 500.4100, L100.0100, L501.9520, L501.9985, L500.4050, L506.1000 #### [facility] [address] [place], [address] Basic Metabolic Profile (BMP )on 01-16-2024 BUN/CRE 27.6 RATIO High 10-20 [facility] Comment on above: Performed By: #### L 500.2500 #### [facility] [address] [place], [address] CA,Total 7.8 mg/dL Low 8.5-10.1 [facility] Comment on above: Performed By: #### L 500.2500 #### [facility] [address] [place], [address] Chloride [Moles/Vol] 111 mmol/L High 98-107 [facility] Comment on above: Performed By: #### L 500.2500 #### [facility] [address] [place], [address] CO2 [Moles/Vol] 28.0 mmol/L Normal 21.0-32.0 [facility] Comment on above: Performed By: #### L 500.2500 #### [facility] [address] [place], [address] Creatinine [Mass/Vol] 2.90 mg/dL High 0.55-1.02 [facility] Comment on above: Result Comment: The validity of the calculated GFR GFRAA in patients over 70 years has not been determined. Clinical correlation is essential. Performed By: #### L 500.2500 #### [facility] [address] [place], [address] ECRCL 13.99 ml/min Normal [facility] Comment on above: Performed By: #### L 500.2500 #### [facility] [address] [place], [address] EST GFR - AA 20 mL/min Low >60 [facility] Comment on above: Result Comment: Afri can [place] GFR Calc Performed By: #### L 500.2500 #### [facility] [address] [place], [address] GAP 2 Low 5-15 [facility] Comment on above: Performed By: #### L 500.2500 #### [facility] [address] [place], [address] GFR/1.73 sq M.predicted among non-blacks MDRD (S/P/Bld) [Vol rate/Area] 17 mL/min/{1.73_m2} Low >60 [facility] Comment on above: Result Comment: Non- GFR Calc Performed By: #### L 500.2500 #### [facility] [address] [place], [address] Glucose [Mass/Vol] 118 mg/dL High 74-106 [facility] Comment on above: Result Comment: Fast ing Glucose result from 100 to 125 mg/dL suggests IMPAIRED HOMEOSTASIS per A.D.A. criteria. Performed By: #### L 500.2500 #### [facility] [address] [place], [address] Potassium [Moles/Vol] 5.1 mmol/L Normal 3.5-5.1 [facility] Comment on above: Performed By: #### L 500.2500 #### [facility] [address] [place], [address] Sodium [Moles/Vol] 141 mmol/L Normal 136-145 [facility] Comment on above: Performed By: #### L 500.2500 #### [facility] [address] [place], [address] Urea nitrogen [Mass/Vol] 80 mg/dL High 7-18 [facility] Comment on above: Performed By: #### L 500.2500 #### [facility] [address] [place], [address] HH, Hemoglobin AND Hematocri ton 01-16-2024 Hematocrit (Bld) [Volume fraction] 22.3 % Low 37-47 [facility] Comment on above: Performed By: #### L 100.0600 #### [facility] [address] [place], [place], [address] Hemoglobin (Bld) [Mass/Vol] 7.0 g/dL Low 12.0-15.0 [facility] Comment on above: Performed By: #### L 100.0600 #### [facility] [address] [place], [address] Type AND Screenon 01-16-2024 Ab SCREEN GEL Negative Normal [facility] Comment on above: Order Comment: CMV N EG? NNumber of units to transfuse: 1Is the EBL >/= 1000ml in adults or >/= 12ml/kg in children?YReason for Ordering Blood: AcuteAre the blood/blood products to be transfused? YIs the patient having/had surgery? YWhen [id number] HIP Performed By: #### L 500.4100, L100.0100, L501.9520, L501.9985, L500.4050, L506.1000 #### [facility] [address] [place], [address] ABO and Rh group Nom (Bld) Blood group B Rh(D) positive Normal [facility] Comment on above: Order Comment: CMV N EG? NNumber of units to transfuse: 1Is the EBL >/= 1000ml in adults or >/= 12ml/kg in children?YReason for Ordering Blood: AcuteAre the blood/blood products to be transfused? YIs the patient having/had surgery? YWhen [id number] HIP Performed By: #### L 500.4100, L100.0100, L501.9520, L501.9985, L500.4050, L506.1000 #### [facility] [address] [place], [place], [address] Basic Metabolic Profile (BMP )on 01-15-2024 BUN/CRE 16.0 RATIO Normal 10-20 [facility] Comment on above: Performed By: #### L 500.4100, L100.0100, L501.9520, L501.9985, L500.4050, L506.1000 #### [facility] [address] [place], [address] CA,Total 8.0 mg/dL Low 8.5-10.1 [facility] Comment on above: Performed By: #### L 500.4100, L100.0100, L501.9520, L501.9985, L500.4050, L506.1000 #### [facility] [address] [place], [address] Chloride [Moles/Vol] 106 mmol/L Normal 98-107 [facility] Comment on above: Performed By: #### L 500.4100, L100.0100, L501.9520, L501.9985, L500.4050, L506.1000 #### [facility] [address] [place], [address] CO2 [Moles/Vol] 29.0 mmol/L Normal 21.0-32.0 [facility] Comment on above: Performed By: #### L 500.4100, L100.0100, L501.9520, L501.9985, L500.4050, L506.1000 #### [facility] [address] [place], [address] Creatinine [Mass/Vol] 4.31 mg/dL High 0.55-1.02 [facility] Comment on above: Result Comment: The validity of the calculated GFR GFRAA in patients over 70 years has not been determined. Clinical correlation is essential. Performed By: #### L 500.4100, L100.0100, L501.9520, L501.9985, L500.4050, L506.1000 #### [facility] [address] [place], [address] ECRCL 9.41 ml/min Normal [facility] Comment on above: Performed By: #### L 500.4100, L100.0100, L501.9520, L501.9985, L500.4050, L506.1000 #### [facility] [address] [place], [address] EST GFR - AA 13 mL/min Low >60 [facility] Comment on above: Result Comment: Afri can [place] GFR Calc Performed By: #### L 500.4100, L100.0100, L501.9520, L501.9985, L500.4050, L506.1000 #### [facility] [address] [place], [address] GAP 6 Normal 5-15 [facility] Comment on above: Performed By: #### L 500.4100, L100.0100, L501.9520, L501.9985, L500.4050, L506.1000 #### [facility] [address] [place], [address] GFR/1.73 sq M.predicted among non-blacks MDRD (S/P/Bld) [Vol rate/Area] 10 mL/min/{1.73_m2} Low >60 [facility] Comment on above: Result Comment: Non- GFR Calc Performed By: #### L 500.4100, L100.0100, L501.9520, L501.9985, L500.4050, L506.1000 #### [facility] [address] [place], [address] Glucose [Mass/Vol] 158 mg/dL High 74-106 [facility] Comment on above: Result Comment: Fast ing Glucose result greater than or equal to 126 mg/dL suggests DIABETES MELLITUS per A.D.A. criteria. Performed By: #### L 500.4100, L100.0100, L501.9520, L501.9985, L500.4050, L506.1000 #### [facility] [address] [place], [address] Potassium [Moles/Vol] 5.2 mmol/L High 3.5-5.1 [facility] Comment on above: Performed By: #### L 500.4100, L100.0100, L501.9520, L501.9985, L500.4050, L506.1000 #### [facility] [address] [place], [address] Sodium [Moles/Vol] 141 mmol/L Normal 136-145 [facility] Comment on above: Performed By: #### L 500.4100, L100.0100, L501.9520, L501.9985, L500.4050, L506.1000 #### [facility] [address] [place], [address] Urea nitrogen [Mass/Vol] 69 mg/dL High 7-18 [facility] Comment on above: Performed By: #### L 500.4100, L100.0100, L501.9520, L501.9985, L500.4050, L506.1000 #### [facility] [address] [place], [address] CBC W/Diff, Automatedon - Absolute Neut Normal 2.0-7.7 [facility] Comment on above: Order Comment: REQUE STED REDRAW OF SPECIMEN. Result Comment: UNAB LE TO GET. FLOOR PUT IN CANCELATION Performed By: #### L 500.4100, L100.0100, L501.9520, L501.9985, L500.4050, L506.1000 #### [facility] [address] [place], [address] HCT Normal 37-47 [facility] Comment on above: Order Comment: REQUE STED REDRAW OF SPECIMEN. Result Comment: UNAB LE TO GET. FLOOR PUT IN CANCELATION Performed By: #### L 500.4100, L100.0100, L501.9520, L501.9985, L500.4050, L506.1000 #### [facility] [address] [place], [address] HGB Normal 12.0-15.0 [facility] Comment on above: Order Comment: REQUE STED REDRAW OF SPECIMEN. Result Comment: UNAB LE TO GET. FLOOR PUT IN CANCELATION Performed By: #### L 500.4100, L100.0100, L501.9520, L501.9985, L500.4050, L506.1000 #### [facility] [address] [place], [address] MCH Normal 27.0-32.0 [facility] Comment on above: Order Comment: REQUE STED REDRAW OF SPECIMEN. Result Comment: UNAB LE TO GET. FLOOR PUT IN CANCELATION Performed By: #### L 500.4100, L100.0100, L501.9520, L501.9985, L500.4050, L506.1000 #### [facility] [address] [place], [address] MCHC Normal 32-36 [facility] Comment on above: Order Comment: REQUE STED REDRAW OF SPECIMEN. Result Comment: UNAB LE TO GET. FLOOR PUT IN CANCELATION Performed By: #### L 500.4100, L100.0100, L501.9520, L501.9985, L500.4050, L506.1000 #### [facility] [address] [place], [address] MCV Normal 81-99 [facility] Comment on above: Order Comment: REQUE STED REDRAW OF SPECIMEN. Result Comment: UNAB LE TO GET. FLOOR PUT IN CANCELATION Performed By: #### L 500.4100, L100.0100, L501.9520, L501.9985, L500.4050, L506.1000 #### [facility] [address] [place], [address] NEUT% Normal 47-70 [facility] Comment on above: Order Comment: REQUE STED REDRAW OF SPECIMEN. Result Comment: UNAB LE TO GET. FLOOR PUT IN CANCELATION Performed By: #### L 500.4100, L100.0100, L501.9520, L501.9985, L500.4050, L506.1000 #### [facility] [address] [place], [address] PLT Normal 150-450 [facility] Comment on above: Order Comment: REQUE STED REDRAW OF SPECIMEN. Result Comment: UNAB LE TO GET. FLOOR PUT IN CANCELATION Performed By: #### L 500.4100, L100.0100, L501.9520, L501.9985, L500.4050, L506.1000 #### [facility] [address] [facility] [address] RBC Normal 4.2-5.4 [facility] Comment on above: Order Comment: REQUE STED REDRAW OF SPECIMEN. Result Comment: UNAB LE TO GET. FLOOR PUT IN CANCELATION Performed By: #### L 500.4100, L100.0100, L501.9520, L501.9985, L500.4050, L506.1000 #### [facility] [address] [place], [address] RDW CV Normal 11.6-14.6 [facility] Comment on above: Order Comment: REQUE STED REDRAW OF SPECIMEN. Result Comment: UNAB LE TO GET. FLOOR PUT IN CANCELATION Performed By: #### L 500.4100, L100.0100, L501.9520, L501.9985, L500.4050, L506.1000 #### [facility] [address] [place], [address] RDW SD Normal 35.1-43.9 [facility] Comment on above: Order Comment: REQUE STED REDRAW OF SPECIMEN. Result Comment: UNAB LE TO GET. FLOOR PUT IN CANCELATION Performed By: #### L 500.4100, L100.0100, L501.9520, L501.9985, L500.4050, L506.1000 #### [facility] [address] [place], [address] WBC Normal 4.4-11.0 [facility] Comment on above: Order Comment: REQUE STED REDRAW OF SPECIMEN. Result Comment: UNAB LE TO GET. FLOOR PUT IN CANCELATION Performed By: #### L 500.4100, L100.0100, L501.9520, L501.9985, L500.4050, L506.1000 #### [facility] [address] [place], [address] Kidney and Bladderon 024 Kidney and Bladder [facility] Imaging Services [address] [place] [address] Kidney and Bladder MR#: [id number] Acct: [id number] Name: JACKELYN BRADSHAW Rep #: [id number] : 1940 F 83 From: Solomon Pichardo MD PCP: Dr. Yoav Chakraborty MD Status: ADM IN Study: Kidney and Bladder Date of Exam: 01/15/24 Exam# [id number] Ordering Dr: Dani Jaramillo DO [id number] STUDY: RENAL ULTRASOUND - COMPLETE REASON FOR EXAM: Female, 83 years old. renal failure TECHNIQUE: Ultrasound evaluation of the kidneys was performed with real-time and static khan-scale imaging. COMPARISON: None. FINDINGS: RIGHT KIDNEY: Normal location of the right kidney, which is normal in size. The right kidney measures 9.7 x 3.9 x 3.9 cm. There is a normal cortex of the right kidney. The renal cortex measures 1 cm. There is no right renal mass or cyst. There are no right renal calculi. There is no right hydronephrosis. DISTAL RIGHT URETER: There is non-visualization of the distal right ureter. There is no demonstrated right ureterovesical junction calculus. There is a visualized right ureteral jet. LEFT KIDNEY: Limited visualization due to patient body habitus Normal location of the left kidney, which is normal in size. The left kidney measures 8.7 x 4.4 x 4.8 cm. There is a normal cortex of the left kidney. The renal cortex measures 1.4 cm. There is no left renal mass or cyst. There are no left renal calculi. There is no left hydronephrosis. DISTAL LEFT URETER: There is non-visualization of the distal left ureter. There is no demonstrated left ureterovesical junction calculus. There is a visualized left ureteral jet. BLADDER: Not adequately evaluated due to indwelling Sal catheter . US/Kidney and Bladder IMPRESSION: Limited study without evidence for renal mass or obstruction. Electronically Signed: Solomon Pichardo MD at 18:10 EDT , CC: Dr. Yoav Chakraborty MD; Dr. Dani Jaramillo DO [employer]: Signed Normal [facility] Urine Cultureon 01-15-2024 U[facility] Staphylococcus silver ri [place] Count <1000 Staphylococcus warneri: REACTION cefOXitin Susc Islt NEG Clindamycin.induced Susc Islt POS Gentamicin Islt TRACI <=0.5 S Nitrofurantoin Islt TRACI <=16 S Oxacillin Susc Islt <=0.25 S Tetracycline Islt TRACI <=1 S Vancomycin Islt TRACI <=0.5 S Normal [facility] Comment on above: Performed By: #### L 500.4100, L100.0100, L501.9520, L501.9985, L500.4050, L506.1000 #### [facility] [place], [address] Absolute lymphocyte countOrd ered By: Dani Jaramillo on 01-14-2024 Lymphocytes Auto (Unsp spec) [#/Vol] 1.45 10*3/uL 0.83-4.51 [facility] Automated lymphocyte count a s percentage of total leukocytesOrdered By: Dani Jaramillo on 01-14-2024 Lymphocytes/100 WBC Auto (Unsp spec) 8.0 % 19-41 [facility] Basic Metabolic Profile (BMP )on 01-14-2024 BUN/CRE 12.6 RATIO Normal 10-20 [facility] Comment on above: Performed By: #### L 500.4100, L100.0100, L501.9520, L501.9985, L500.4050, L506.1000 #### [facility] [address] [place], [address] CA,Total 8.5 mg/dL Normal 8.5-10.1 [facility] Comment on above: Performed By: #### L 500.4100, L100.0100, L501.9520, L501.9985, L500.4050, L506.1000 #### [facility] [address] [place], [address] Chloride [Moles/Vol] 107 mmol/L Normal 98-107 [facility] Comment on above: Performed By: #### L 500.4100, L100.0100, L501.9520, L501.9985, L500.4050, L506.1000 #### [facility] [address] [place], [address] CO2 [Moles/Vol] 28.0 mmol/L Normal 21.0-32.0 [facility] Comment on above: Performed By: #### L 500.4100, L100.0100, L501.9520, L501.9985, L500.4050, L506.1000 #### [facility] [address] [place], [address] Creatinine [Mass/Vol] 4.30 mg/dL High 0.55-1.02 [facility] Comment on above: Result Comment: The validity of the calculated GFR GFRAA in patients over 70 years has not been determined. Clinical correlation is essential. Performed By: #### L 500.4100, L100.0100, L501.9520, L501.9985, L500.4050, L506.1000 #### [facility] [address] [place], [address] ECRCL 9.43 ml/min Normal [facility] Comment on above: Performed By: #### L 500.4100, L100.0100, L501.9520, L501.9985, L500.4050, L506.1000 #### [facility] [address] [place], [address] EST GFR - AA 13 mL/min Low >60 [facility] Comment on above: Result Comment: Afri can [place] GFR Calc Performed By: #### L 500.4100, L100.0100, L501.9520, L501.9985, L500.4050, L506.1000 #### [facility] [address] [place], [address] GAP 5 Normal 5-15 [facility] Comment on above: Performed By: #### L 500.4100, L100.0100, L501.9520, L501.9985, L500.4050, L506.1000 #### [facility] [address] [place], [address] GFR/1.73 sq M.predicted among non-blacks MDRD (S/P/Bld) [Vol rate/Area] 10 mL/min/{1.73_m2} Low >60 [facility] Comment on above: Result Comment: Non- GFR Calc Performed By: #### L 500.4100, L100.0100, L501.9520, L501.9985, L500.4050, L506.1000 #### [facility] [address] [place], [address] Glucose [Mass/Vol] 157 mg/dL High 74-106 [facility] Comment on above: Result Comment: Fast ing Glucose result greater than or equal to 126 mg/dL suggests DIABETES MELLITUS per A.D.A. criteria. Performed By: #### L 500.4100, L100.0100, L501.9520, L501.9985, L500.4050, L506.1000 #### [facility] [address] [place], [address] Potassium [Moles/Vol] 5.6 mmol/L High 3.5-5.1 [facility] Comment on above: Performed By: #### L 500.4100, L100.0100, L501.9520, L501.9985, L500.4050, L506.1000 #### [facility] [address] [place], [address] Sodium [Moles/Vol] 140 mmol/L Normal 136-145 [facility] Comment on above: Performed By: #### L 500.4100, L100.0100, L501.9520, L501.9985, L500.4050, L506.1000 #### [facility] [address] [place], [address] Urea nitrogen [Mass/Vol] 54 mg/dL High 7-18 [facility] Comment on above: Performed By: #### L 500.4100, L100.0100, L501.9520, L501.9985, L500.4050, L506.1000 #### [facility] [address] [place], [address] Basophil percentageOrdered B y: Dani Jaramillo on 01-14-2024 Basophils/100 WBC (Bld) 0.2 % 0-1 [facility] Eosinophils/100 WBC (Bld) 0.4 % 0-5 [facility] Monocytes/100 WBC (Bld) 7.6 % 0-10 [facility] Neutrophils (Bld) [#/Vol] 15.1 10*3/uL 2.0-7.7 [facility] Neutrophils/100 WBC (Bld) 83.2 % 47-70 [facility] WBC (Bld) [#/Vol] 18.2 10*3/uL 4.4-11.0 [facility] CBC W/Diff, Automatedon 01-03-2023 Absolute Lymph 1.45 X10 3/uL Normal 0.83-4.51 [facility] Comment on above: Performed By: #### L 500.2500, L100.0100 #### [facility] [address] [place], [address] Absolute Neut 15.1 X10 3/uL High 2.0-7.7 [facility] Comment on above: Performed By: #### L 500.2500, L100.0100 #### [facility] [address] [place], [address] Basophils/100 WBC (Bld) 0.2 % Normal 0-1 [facility] Comment on above: Performed By: #### L 500.2500, L100.0100 #### [facility] [address] [place], [address] Eosinophils/100 WBC (Bld) 0.4 % Normal 0-5 [facility] Comment on above: Performed By: #### L 500.2500, L100.0100 #### [facility] [address] [place], [address] Erythrocyte distribution width (RBC) [Ratio] 13.5 % Normal 11.6-14.6 [facility] Comment on above: Performed By: #### L 500.2500, L100.0100 #### [facility] [address] [place], [address] Hematocrit (Bld) [Volume fraction] 27.9 % Low 37-47 [facility] Comment on above: Performed By: #### L 500.2500, L100.0100 #### [facility] [address] [place], [address] Hemoglobin (Bld) [Mass/Vol] 8.6 g/dL Low 12.0-15.0 [facility] Comment on above: Performed By: #### L 500.2500, L100.0100 #### [facility] [address] [place], [address] IG% 0.600 Normal 0.0-0.9 [facility] Comment on above: Result Comment: IG% - Immature Granulocytes (promyelocytes, myelocytes and metamyelocytes) > 1% indicates that a LEFT SHIFT is Present. Performed By: #### L 500.2500, L100.0100 #### [facility] [address] [facility] [place], [address] Lymphocytes/100 WBC (Bld) 8.0 % Low 19-41 [facility] Comment on above: Performed By: #### L 500.2500, L100.0100 #### [facility] [address] [place], [address] MCH (RBC) [Entitic mass] 31.0 pg Normal 27.0-32.0 [facility] Comment on above: Performed By: #### L 500.2500, L100.0100 #### [facility] [address] [place], [address] MCHC (RBC) [Mass/Vol] 30.8 g/dL Low 32-36 [facility] Comment on above: Performed By: #### L 500.2500, L100.0100 #### [facility] [address] [place], [address] MCV (RBC) [Entitic vol] 100.7 fL High 81-99 [facility] Comment on above: Performed By: #### L 500.2500, L100.0100 #### [facility] [address] [place], [address] Monocytes/100 WBC (Bld) 7.6 % Normal 0-10 [facility] Comment on above: Performed By: #### L 500.2500, L100.0100 #### [facility] [address] [place], [address] Neutrophils/100 WBC (Bld) 83.2 % High 47-70 [facility] Comment on above: Performed By: #### L 500.2500, L100.0100 #### [facility] [address] [place], [address] Nucleated RBC (Bld) [#/Vol] 0 10*3/uL Normal 0-5 [facility] Comment on above: Performed By: #### L 500.2500, L100.0100 #### [facility] [address] [place], [address] Platelet mean volume (Bld) [Entitic vol] 10.7 fL Normal 6.2-12.0 [facility] Comment on above: Performed By: #### L 500.2500, L100.0100 #### [facility] [address] [place], [address] Platelets (Bld) [#/Vol] 197 10*3/uL Normal 150-450 [facility] Comment on above: Performed By: #### L 500.2500, L100.0100 #### [facility] [address] [place], [address] RBC (Bld) [#/Vol] 2.77 10*6/uL Low 4.2-5.4 [facility] Comment on above: Performed By: #### L 500.2500, L100.0100 #### [facility] [address] [place], [address] RDW SD 50.4 fl High 35.1-43.9 [facility] Comment on above: Performed By: #### L 500.2500, L100.0100 #### [facility] [address] [place], [address] WBC (Bld) [#/Vol] 18.2 10*3/uL High 4.4-11.0 [facility] Comment on above: Performed By: #### L 500.2500, L100.0100 #### [facility] [address] [place], [address] Chest 1 View (Portable)on Chest 1 View (Portable) [facility] Imaging Services [address] [place] [address] Chest 1 View (Portable) MR#: [id number] Acct: [id number] Name: JACKELYN BRADSHAW Rep #: [id number] : 1940 F 83 From: Jimi Rubin MD PCP: Dr. Yoav Chakraborty MD Status: ADM IN Study: Chest 1 View (Portable) Date of Exam: 01/14/24 Exam# [id number] Ordering Dr: Dani Jaramillo DO [id number] EXAM: XR CHEST, 1 VIEW CLINICAL INDICATION: Pulmonary edema TECHNIQUE: Frontal view of the chest. COMPARISON: XR Chest dated 01/12/2024 FINDINGS: LUNGS AND PLEURAL SPACES: Shallow inspiration. Mild bibasilar atelectasis. HEART: Normal heart size. MEDIASTINUM: No mediastinal or hilar mass. BONES/JOINTS: No acute abnormality. UPPER ABDOMEN: Findings gaseous distention of the splenic flexure of the colon. RAD/Chest 1 View (Portable) IMPRESSION: Mild bibasilar atelectasis. Electronically Signed: Jimi Rubin MD at 16:14 EDT , CC: Dr. Yoav Chakraborty MD; Dr. Dani Jaramillo DO [employer]: Signed Normal [facility] Determination of erythrocyte mean corpuscular volume (MCV)Ordered By: Dani Jaramillo on 01-14-2024 MCV (RBC) [Entitic vol] 100.7 fL 81-99 [facility] Erythrocyte distribution wid th ratioOrdered By: Dani Jaramillo on 01-14-2024 Erythrocyte distribution width (RBC) [Ratio] 13.5 % 11.6-14.6 [facility] Erythrocyte distribution wid th standard deviationOrdered By: Dani Jaramillo on 01-14-2024 Erythrocyte distribution width (RBC) [Entitic vol] 50.4 fL 35.1-43.9 [facility] Immature granulocytes/100 WB C Auto (Bld)Ordered By: Dani Jaramillo on 01-14-2024 Immature granulocytes/100 WBC (Bld) 0.600 % 0.0-0.9 [facility] Comment on above: IG% - Immature Granu locytes (promyelocytes, myelocytes and metamyelocytes) > 1% indicates that a LEFT SHIFT is Present. Laboratory - Hematology and Cell countsOrdered By: Dani Jaramillo on 01-14-2024 MCH (RBC) [Entitic mass] 31.0 pg 27.0-32.0 [facility] MCHC (RBC) [Mass/Vol] 30.8 g/dL 32-36 [facility] Nucleated RBC/100 WBC (Bld) [Ratio] 0 % 0-5 [facility] Platelet mean volume (Bld) [Entitic vol] 10.7 fL 6.2-12.0 [facility] Platelets (Bld) [#/Vol] 197 10*3/uL 150-450 [facility] RBC Auto (Bld) [#/Vol]Ordere d By: Dani Jaramillo on 01-14-2024 RBC (Bld) [#/Vol] 2.77 10*6/uL 4.2-5.4 [facility] Basic Metabolic Profile (BMP )on 01-13-2024 BUN/CRE 13.8 RATIO Normal 10-20 [facility] Comment on above: Performed By: #### L 500.4100, L100.0100, L501.9520, L501.9985, L500.4050, L506.1000 #### [facility] [address] [place], [address] CA,Total 9.3 mg/dL Normal 8.5-10.1 [facility] Comment on above: Performed By: #### L 500.4100, L100.0100, L501.9520, L501.9985, L500.4050, L506.1000 #### [facility] [address] [place], [address] Chloride [Moles/Vol] 106 mmol/L Normal 98-107 [facility] Comment on above: Performed By: #### L 500.4100, L100.0100, L501.9520, L501.9985, L500.4050, L506.1000 #### [facility] [address] [place], [address] CO2 [Moles/Vol] 27.0 mmol/L Normal 21.0-32.0 [facility] Comment on above: Performed By: #### L 500.4100, L100.0100, L501.9520, L501.9985, L500.4050, L506.1000 #### [facility] [address] [place], [address] Creatinine [Mass/Vol] 2.61 mg/dL High 0.55-1.02 [facility] Comment on above: Result Comment: The validity of the calculated GFR GFRAA in patients over 70 years has not been determined. Clinical correlation is essential. Performed By: #### L 500.4100, L100.0100, L501.9520, L501.9985, L500.4050, L506.1000 #### [facility] [address] [place], [address] ECRCL 15.54 ml/min Normal [facility] Comment on above: Performed By: #### L 500.4100, L100.0100, L501.9520, L501.9985, L500.4050, L506.1000 #### [facility] [address] [place], [address] EST GFR - AA 23 mL/min Low >60 [facility] Comment on above: Result Comment: Afri can [place] GFR Calc Performed By: #### L 500.4100, L100.0100, L501.9520, L501.9985, L500.4050, L506.1000 #### [facility] [address] [place], [address] GAP 6 Normal 5-15 [facility] Comment on above: Performed By: #### L 500.4100, L100.0100, L501.9520, L501.9985, L500.4050, L506.1000 #### [facility] [address] [place], [address] GFR/1.73 sq M.predicted among non-blacks MDRD (S/P/Bld) [Vol rate/Area] 19 mL/min/{1.73_m2} Low >60 [facility] Comment on above: Result Comment: Non- GFR Calc Performed By: #### L 500.4100, L100.0100, L501.9520, L501.9985, L500.4050, L506.1000 #### [facility] [address] [place], [address] Glucose [Mass/Vol] 178 mg/dL High 74-106 [facility] Comment on above: Result Comment: Fast ing Glucose result greater than or equal to 126 mg/dL suggests DIABETES MELLITUS per A.D.A. criteria. Performed By: #### L 500.4100, L100.0100, L501.9520, L501.9985, L500.4050, L506.1000 #### [facility] [address] [place], [address] Potassium [Moles/Vol] 5.2 mmol/L High 3.5-5.1 [facility] Comment on above: Performed By: #### L 500.4100, L100.0100, L501.9520, L501.9985, L500.4050, L506.1000 #### [facility] [address] [place], [address] Sodium [Moles/Vol] 139 mmol/L Normal 136-145 [facility] Comment on above: Performed By: #### L 500.4100, L100.0100, L501.9520, L501.9985, L500.4050, L506.1000 #### [facility] [address] [place], [address] Urea nitrogen [Mass/Vol] 36 mg/dL High 7-18 [facility] Comment on above: Performed By: #### L 500.4100, L100.0100, L501.9520, L501.9985, L500.4050, L506.1000 #### [facility] [address] [place], [address] CBC W/Diff, Automatedon 01-03 0 Absolute Lymph 1.86 X10 3/uL Normal 0.83-4.51 [facility] Comment on above: Performed By: #### L 500.4100, L100.0100, L501.9520, L501.9985, L500.4050, L506.1000 #### [facility] [address] [place], [address] Absolute Neut 10.9 X10 3/uL High 2.0-7.7 [facility] Comment on above: Performed By: #### L 500.4100, L100.0100, L501.9520, L501.9985, L500.4050, L506.1000 #### [facility] [address] [place], [address] Basophils/100 WBC (Bld) 0.4 % Normal 0-1 [facility] Comment on above: Performed By: #### L 500.4100, L100.0100, L501.9520, L501.9985, L500.4050, L506.1000 #### [facility] [address] [place], [address] Eosinophils/100 WBC (Bld) 0.0 % Normal 0-5 [facility] Comment on above: Performed By: #### L 500.4100, L100.0100, L501.9520, L501.9985, L500.4050, L506.1000 #### [facility] [facility] [address] [place], [address] Erythrocyte distribution width (RBC) [Ratio] 13.5 % Normal 11.6-14.6 [facility] Comment on above: Performed By: #### L 500.4100, L100.0100, L501.9520, L501.9985, L500.4050, L506.1000 #### [facility] [address] [place], [address] Hematocrit (Bld) [Volume fraction] 34.1 % Low 37-47 [facility] Comment on above: Performed By: #### L 500.4100, L100.0100, L501.9520, L501.9985, L500.4050, L506.1000 #### [facility] [address] [place], [address] Hemoglobin (Bld) [Mass/Vol] 10.8 g/dL Low 12.0-15.0 [facility] Comment on above: Performed By: #### L 500.4100, L100.0100, L501.9520, L501.9985, L500.4050, L506.1000 #### [facility] [address] [place], [address] IG% 0.500 Normal 0.0-0.9 [facility] Comment on above: Result Comment: IG% - Immature Granulocytes (promyelocytes, myelocytes and metamyelocytes) > 1% indicates that a LEFT SHIFT is Present. Performed By: #### L 500.4100, L100.0100, L501.9520, L501.9985, L500.4050, L506.1000 #### [facility] [address] [place], [address] Lymphocytes/100 WBC (Bld) 13.3 % Low 19-41 [facility] Comment on above: Performed By: #### L 500.4100, L100.0100, L501.9520, L501.9985, L500.4050, L506.1000 #### [facility] [address] [place], [address] MCH (RBC) [Entitic mass] 31.2 pg Normal 27.0-32.0 [facility] Comment on above: Performed By: #### L 500.4100, L100.0100, L501.9520, L501.9985, L500.4050, L506.1000 #### [facility] [address] [place], [address] MCHC (RBC) [Mass/Vol] 31.7 g/dL Low 32-36 [facility] Comment on above: Performed By: #### L 500.4100, L100.0100, L501.9520, L501.9985, L500.4050, L506.1000 #### [facility] [address] [place], [address] MCV (RBC) [Entitic vol] 98.6 fL Normal 81-99 [facility] Comment on above: Performed By: #### L 500.4100, L100.0100, L501.9520, L501.9985, L500.4050, L506.1000 #### [facility] [address] [place], [address] Monocytes/100 WBC (Bld) 8.0 % Normal 0-10 [facility] Comment on above: Performed By: #### L 500.4100, L100.0100, L501.9520, L501.9985, L500.4050, L506.1000 #### [facility] [address] [place], [address] Neutrophils/100 WBC (Bld) 77.8 % High 47-70 [facility] Comment on above: Performed By: #### L 500.4100, L100.0100, L501.9520, L501.9985, L500.4050, L506.1000 #### [facility] [address] [place], [address] Nucleated RBC (Bld) [#/Vol] 0 10*3/uL Normal 0-5 [facility] Comment on above: Performed By: #### L 500.4100, L100.0100, L501.9520, L501.9985, L500.4050, L506.1000 #### [facility] [address] [place], [address] Platelet mean volume (Bld) [Entitic vol] 10.3 fL Normal 6.2-12.0 [facility] Comment on above: Performed By: #### L 500.4100, L100.0100, L501.9520, L501.9985, L500.4050, L506.1000 #### [facility] [address] [place], [address] Platelets (Bld) [#/Vol] 270 10*3/uL Normal 150-450 [facility] Comment on above: Performed By: #### L 500.4100, L100.0100, L501.9520, L501.9985, L500.4050, L506.1000 #### [facility] [address] [place], [address] RBC (Bld) [#/Vol] 3.46 10*6/uL Low 4.2-5.4 [facility] Comment on above: Performed By: #### L 500.4100, L100.0100, L501.9520, L501.9985, L500.4050, L506.1000 #### [facility] [address] [place], [address] RDW SD 48.6 fl High 35.1-43.9 [facility] Comment on above: Performed By: #### L 500.4100, L100.0100, L501.9520, L501.9985, L500.4050, L506.1000 #### [facility] [address] [place], [address] WBC (Bld) [#/Vol] 14.0 10*3/uL High 4.4-11.0 [facility] Comment on above: Performed By: #### L 500.4100, L100.0100, L501.9520, L501.9985, L500.4050, L506.1000 #### [facility] [address] [place], [address] HIP, UNI W/ Pelvis 2-3 Views on 01-13-2024 HIP, UNI W/ Pelvis 2-3 Views [facility] Imaging Services [address] [place] [address] HIP, UNI W/ Pelvis 2-3 Views MR#: [id number] Acct: [id number] Name: JACKELYN BRADSHAW Rep #: [id number] : 1940 83 From: Arjun Cade MD PCP: Dr. Yoav Chakraborty MD Status: ADM IN Study: HIP, UNI W/ Pelvis 2-3 Views Date of Exam: 07/28 Exam# [id number] Ordering Dr: David Morgan MD [id number] HISTORY: IM rodding COMPARISON: January 12, 2024 femur radiograph TECHNIQUE: A total of 9 fluoroscopic images were saved without a radiologist present. FINDINGS: Images demonstrate placement of femoral antegrade Intramedullary noel fixation. Total fluoroscopy time: 121.7 seconds Cumulative air kerma: 29.05 mGy RAD/HIP, UNI W/ Pelvis 2-3 Views IMPRESSION: Fluoroscopic assistance for femoral internal fixation. Please see operative report for additional information. Electronically Signed: Arjun Cade MD at 23:33 EDT , CC: Dr. Yoav Chakraborty MD; Dr. 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 Yoav Chakraborty MD Status: ADM IN Study: Hip Min 2 Views (Portable) Date of Exam: 01/12 Exam# [id number] Ordering Dr: David Morgan MD [id number] INDICATION: Post Op -- AP both hips on single guille/lateral of op hip PACU EXAMINATION/TECHNIQUE: X-RAY - XR Hip Unilateral with Pelvis when performed; 2-3 Views COMPARISON: January 12 and January 12 2024 FINDINGS: PELVIC BONES: No displaced fracture, destructive or sclerotic lesions. Note that overlapping bowel shadows may however obscure fine detail. Right greater than left sacroiliac joint degenerative change. No widening of the pubic symphysis. HIPS: Left femoral internal fixation with antegrade intermedullary femoral noel and interlocking femoral neck screws. No evidence of hardware failure. Normal right hip alignment with mild superior acetabular osteophyte formation. . SOFT TISSUES: Lateral left hip postsurgical soft tissue emphysema and erik. Lateral mid and lower leg skin erik. RAD/Hip Min 2 Views (Portable) IMPRESSION: Left intratrochanteric femur fracture internal fixation with improved alignment Electronically Signed: Arjun Cade MD at 18:59 EDT Reading Location ID and State: [facility] / [place] Tel , Service support , CC: Dr. Yoav Chakraborty MD; Dr. David Mogran MD Tanker Truck Driver: Signed Normal [facility] Operative Reporton Operative Report [facility] Medical Records Department [address] [place] [address] Operative Report 01/13/24 1736 MR#: [id number] Acct: [id number] Name: JACKELYN BRADSHAW Rep #: [id number] : 1940 83 From: David Morgan MD PCP: Dr. Yoav Chakraborty MD Status:ADM IN [facility] Report of Operation Date of Procedure: 01/13/24 Pre-Operative Diagnosis: Left intertrochanteric hip fracture Post-Operative Diagnosis: Left intertrochanteric hip fracture Surgery/Procedure Performed:: Left hip cephalomedullary nail Description of Surgical Findings:: Stable reduction Surgeon: David Morgan spragger: Cely Christensen Type of Anesthesia: General Anesthesiologist: Blake Schuster Special Medications: Ancef Estimated Blood Loss (mL): 200 Fluids Replaced: 400 Description of Procedure: Components used: 1. Rhodes Nephew InterTAN nail 36 cm x 11.5 mm nail 125 degree 2. Rhodes Nephew InterTAN lag screw 90mm 3. Rhodes Nephew 37.5 millimeter interlocking screw Procedure: On the date of the procedure the patient's left hip was marked in the preoperative area and patient was taken back to the operating room. Anesthetic was administered and patient was transferred to the table were all bony prominence identified well-padded and the ipsilateral arm was placed across the chest. Patient was then translated down to the perineal post and the operative leg was placed in the boot while the nonoperative leg was lowered and secured. The operative leg was placed in traction and internal rotation and live fluoroscopy was used to verify adequate reduction. The operative leg was then prepped in a sterile fashion with chlorhexidine while the surgeon scrubbed. Upon reentering the room the operative extremity was draped in the standard orthopedic fashion. Skin incision was marked and a timeout was called. Everyone agreed upon the side, the site, the procedure be performed, patient's identity, and antibiotics given. Skin incision was made and the position of the entry guidepin was verified using live fluoroscopy. Once we were satisfied with our position the pin was advanced in the soft tissue protector was placed over the pin. The entry reamer was then advanced into the proximal portion of the femur. A Rhodes Nephew InterTAN 125 degree neck angle 11.5 mm x 36 cm hip nail was selected. The 13 mm reamer was then passed down the femoral canal. The nail was then attached to the last inserter and inserted into the intramedullary canal. The appropriate depth was verified and the skin incision for the lag screw was made. The lag screw guidepin was then placed under live fluoroscopy and when a satisfactory position was obtained the length of the screw was measured and the standard technique to drill for the lag screws was performed. The anti-rotation bar was used. At this time a 90 lag screw was selected with its corresponding compression screw. The lag screw was then passed and traction was left off the leg. The compression screw was then passed and the fracture was compressed. The final position of the lag screw was verified under fluoroscopy. Attention was then turned to the distal portion of the nail and a perfect chalkyitsik technique was used to locate the distal interlocking screw and a 37.5mm distal interlocking screw was placed using this technique. Live fluoroscopy was used to verify the position of the interlocking screw and the final position of the hip components. Once we were satisfied with our positioning the wounds were copiously irrigated out with normal saline skin was closed with 2-0 Vicryl and erik for final skin closure. A sterile dressing was placed with Xeroform. Patient was then awakened by anesthesia transferred from the fracture table back to their hospital bed and transferred to the PACU for recovery. Postoperative plan: Patient will be weight-bear as tolerated. 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 twice daily for 2 weeks for DVT prophylaxis with knee- high stockings. Follow up in the office in 2 weeks. Complications none Admit VTE Documentation VTE Present on Admission: No VTE Mechan Device Prophylaxis: SCD's and Thigh High GRACIA Hose VTE Pharm Prophylaxis ordered?: Yes 01/13/24 5706 Cosigner Signature (if applicable): CC: Dr. Yoav Chakraborty MD; Dr. Howard Fragoso MD; Dr. David Morgan MD Signed [facility] Type AND Screenon 01-13-2024 ABO and Rh group Nom (Bld) Blood group B Rh(D) positive Normal [facility] Comment on above: Order Comment: S Performed By: #### L 500.4100, L100.0100, L501.9520, L501.9985, L500.4050, L506.1000 #### [facility] [address] [facility] [place] [place], [address] 12 Lead EKGon 01-12-2024 12 Lead EKG [facility] Cardiovascular Services [address] [place] [address] 12 Lead EKG 01/12/24 1429 MR#: [id number] Acct: [id number] Name: JACKELYN BRADSHAW Rep #: [id number] : 1940 83 From: Ted Louis MD Attending Dr: Dr. Dani Jaramillo DO Status: A DM IN Ordering Dr: Chacho Epperson DO Date: 01/12/24 Location: [facility] Sex: F C Admitted: 01/12/24 Test Reason : Blood Pressure : / mmHG Vent. Rate : 069 BPM Atrial Rate : 069 BPM P-R Int : 188 ms QRS Dur : 084 ms QT Int : 406 ms P-R-T Axes : 023 -50 051 degrees QTc Int : 435 ms Normal sinus rhythm Left anterior fascicular block Moderate voltage criteria for LVH, may be normal variant ( R in aVL , [place] product ) Abnormal ECG Confirmed by Ted Louis ([id number]), scientific editor ROBERT STAPLES ([id number]) on 01/13/2024 10:35:20 AM Referred By: Confirmed By:Ted Louis 01/13/24 1035 Date Ted Louis MD CC: Dr. Chacho Epperson, DO; Dr. Yoav Chakraborty MD; Dr. Dani Jaramillo DO Signed Normal [facility] Absolute lymphocyte countOrd ered By: Chacho Epperson on 01-12-2024 Lymphocytes Auto (Unsp spec) [#/Vol] 1.52 10*3/uL 0.83-4.51 [facility] Automated lymphocyte count a s percentage of total leukocytesOrdered By: Chacho Epperson on 01-12-2024 Lymphocytes/100 WBC Auto (Unsp spec) 8.4 % 19-41 [facility] Basic Metabolic Profile (BMP )on 01-12-2024 BUN/CRE 17.4 RATIO Normal 10-20 [facility] Comment on above: Performed By: #### L 500.4100, L100.0100, L501.9520, L501.9985, L500.4050, L506.1000 #### [facility] [address] [place], [address] CA,Total 9.0 mg/dL Normal 8.5-10.1 [facility] Comment on above: Performed By: #### L 500.4100, L100.0100, L501.9520, L501.9985, L500.4050, L506.1000 #### [facility] [address] [place], [address] Chloride [Moles/Vol] 105 mmol/L Normal 98-107 [facility] Comment on above: Performed By: #### L 500.4100, L100.0100, L501.9520, L501.9985, L500.4050, L506.1000 #### [facility] [address] [place], [address] CO2 [Moles/Vol] 29.0 mmol/L Normal 21.0-32.0 [facility] Comment on above: Performed By: #### L 500.4100, L100.0100, L501.9520, L501.9985, L500.4050, L506.1000 #### [facility] [address] [place], [address] Creatinine [Mass/Vol] 1.38 mg/dL High 0.55-1.02 [facility] Comment on above: Result Comment: The validity of the calculated GFR GFRAA in patients over 70 years has not been determined. Clinical correlation is essential. Performed By: #### L 500.4100, L100.0100, L501.9520, L501.9985, L500.4050, L506.1000 #### [facility] [address] [place], [address] ECRCL 30.01 ml/min Normal [facility] Comment on above: Performed By: #### L 500.4100, L100.0100, L501.9520, L501.9985, L500.4050, L506.1000 #### [facility] [address] [place], [address] EST GFR - AA 47 mL/min Low >60 [facility] Comment on above: Result Comment: Afri can [place] GFR Calc Performed By: #### L 500.4100, L100.0100, L501.9520, L501.9985, L500.4050, L506.1000 #### [facility] [address] [place], [address] GAP 5 Normal 5-15 [facility] Comment on above: Performed By: #### L 500.4100, L100.0100, L501.9520, L501.9985, L500.4050, L506.1000 #### [facility] [address] [place], [address] GFR/1.73 sq M.predicted among non-blacks MDRD (S/P/Bld) [Vol rate/Area] 39 mL/min/{1.73_m2} Low >60 [facility] Comment on above: Result Comment: Non- GFR Calc Performed By: #### L 500.4100, L100.0100, L501.9520, L501.9985, L500.4050, L506.1000 #### [facility] [address] [place], [address] Glucose [Mass/Vol] 168 mg/dL High 74-106 [facility] Comment on above: Result Comment: Fast ing Glucose result greater than or equal to 126 mg/dL suggests DIABETES MELLITUS per A.D.A. criteria. Performed By: #### L 500.4100, L100.0100, L501.9520, L501.9985, L500.4050, L506.1000 #### [facility] [address] [place], [address] Potassium [Moles/Vol] 4.4 mmol/L Normal 3.5-5.1 [facility] Comment on above: Performed By: #### L 500.4100, L100.0100, L501.9520, L501.9985, L500.4050, L506.1000 #### [facility] [address] [place], [address] Sodium [Moles/Vol] 139 mmol/L Normal 136-145 [facility] Comment on above: Performed By: #### L 500.4100, L100.0100, L501.9520, L501.9985, L500.4050, L506.1000 #### [facility] [address] [place], [address] Urea nitrogen [Mass/Vol] 24 mg/dL High 7-18 [facility] Comment on above: Performed By: #### L 500.4100, L100.0100, L501.9520, L501.9926, L500.4050, L506.1000 #### [facility] [address] [place], [address] Basophil percentageOrdered B y: Chacho Zhou on 01-12-2024 Basophils/100 WBC (Bld) 0.3 % 0-1 [facility] Chloride [Moles/Vol] 105 mmol/L 98-107 [facility] Eosinophils/100 WBC (Bld) 0.1 % 0-5 [facility] Glucose [Mass/Vol] 168 mg/dL 74-106 [facility] Comment on above: Fasting Glucose resu lt greater than or equal to 126 mg/dL suggests DIABETES MELLITUS per A.D.A. criteria. Hemoglobin (Bld) [Mass/Vol] 12.9 g/dL 12.0-15.0 [facility] Monocytes/100 WBC (Bld) 2.6 % 0-10 [facility] Neutrophils (Bld) [#/Vol] 15.9 10*3/uL 2.0-7.7 [facility] Neutrophils/100 WBC (Bld) 88.1 % 47-70 [facility] Potassium [Moles/Vol] 4.4 mmol/L 3.5-5.1 [facility] Sodium [Moles/Vol] 139 mmol/L 136-145 [facility] WBC (Bld) [#/Vol] 18.0 10*3/uL 4.4-11.0 [facility] Basophil percentage 0-5 SEEN /hpf 0-5 [facility] Bilirubin Test strip Ql (U)O rdered By: Chacho Epperson on 01-12-2024 Bilirubin Ql (U) 1 mg/dL Negative [facility] Comment on above: COLOR OF URINE MAY A FFECT DIPSTICK RESULTS. Brain/Head without Contrasto n 01-12-2024 Brain/Head without Contrast [facility] Imaging Services [address] [place] [place] [address] Brain/Head without Contrast MR#: [id number] Acct: [id number] Name: JACKELYN BRADSHAW Rep #: [id number] : 1940 F 83 From: Naga hussein MD PCP: Dr. Yoav Chakraborty MD Status: REG ER Study: Brain/Head without Contrast Date of Exam: 06/28 Exam# [id number] Ordering Dr: Chacho Epperson DO [id number] STUDY: CT BRAIN WITHOUT CONTRAST REASON FOR EXAM: Female, 83 years old. Head trauma RADIATION DOSAGE (If Supplied By Facility): CTDIvol = ( 47.06 ) mGy, DLP = ( 819.74 ) mGycm TECHNIQUE: Transaxial CT imaging of the brain was performed without administration of intravenous contrast material. Individualized dose optimization techniques were used for this CT. COMPARISON: No relevant priors. FINDINGS: Normal soft tissue structures. Normal calvarium. There is moderate cerebral atrophy with widening of the extra-axial spaces and ventricular dilatation. There are areas of decreased attenuation within the white matter tracts of the supratentorial brain, consistent with microvascular disease changes. 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 Normal brainstem. Normal cerebellum. There is no intracranial hemorrhage. There are no findings of an acute ischemic infarction. Atherosclerotic calcific plaques of the cavernous portions of the internal carotid arteries bilaterally. Normal visualized paranasal sinuses. CT/Brain/Head without Contrast IMPRESSION: Chronic involutional changes of the brain. 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 Electronically Signed: Naga Garcia MD at 15:23 EDT , CC: Dr. Chacho Epperson DO; Dr. 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, [address] Absolute Neut 15.9 X10 3/uL High 2.0-7.7 [facility] Comment on above: Performed By: #### L 500.4100, L100.0100, L501.9520, L501.9985, L500.4050, L506.1000 #### [facility] [address] [place], [address] Basophils/100 WBC (Bld) 0.3 % Normal 0-1 [facility] Comment on above: Performed By: #### L 500.4100, L100.0100, L501.9520, L501.9985, L500.4050, L506.1000 #### [facility] [address] [place], [address] Eosinophils/100 WBC (Bld) 0.1 % Normal 0-5 [facility] Comment on above: Performed By: #### L 500.4100, L100.0100, L501.9520, L501.9985, L500.4050, L506.1000 #### [facility] [address] [place], [address] Erythrocyte distribution width (RBC) [Ratio] 13.1 % Normal 11.6-14.6 [facility] Comment on above: Performed By: #### L 500.4100, L100.0100, L501.9520, L501.9985, L500.4050, L506.1000 #### [facility] [address] [place], [address] Hematocrit (Bld) [Volume fraction] 40.7 % Normal 37-47 [facility] Comment on above: Performed By: #### L 500.4100, L100.0100, L501.9520, L501.9985, L500.4050, L506.1000 #### [facility] [address] [place], [address] Hemoglobin (Bld) [Mass/Vol] 12.9 g/dL Normal 12.0-15.0 [facility] Comment on above: Performed By: #### L 500.4100, L100.0100, L501.9520, L501.9985, L500.4050, L506.1000 #### [facility] [address] [facility] [place], [address] IG% 0.500 Normal 0.0-0.9 [facility] Comment on above: Result Comment: IG% - Immature Granulocytes (promyelocytes, myelocytes and metamyelocytes) > 1% indicates that a LEFT SHIFT is Present. Performed By: #### L 500.4100, L100.0100, L501.9520, L501.9985, L500.4050, L506.1000 #### [facility] [address] [facility] [place] [place], [address] Lymphocytes/100 WBC (Bld) 8.4 % Low 19-41 [facility] Comment on above: Performed By: #### L 500.4100, L100.0100, L501.9520, L501.9985, L500.4050, L506.1000 #### [facility] [address] [place], [address] MCH (RBC) [Entitic mass] 31.1 pg Normal 27.0-32.0 [facility] Comment on above: Performed By: #### L 500.4100, L100.0100, L501.9520, L501.9985, L500.4050, L506.1000 #### [facility] [address] [place], [address] MCHC (RBC) [Mass/Vol] 31.7 g/dL Low 32-36 [facility] Comment on above: Performed By: #### L 500.4100, L100.0100, L501.9520, L501.9985, L500.4050, L506.1000 #### [facility] [address] [place], [address] MCV (RBC) [Entitic vol] 98.1 fL Normal 81-99 [facility] Comment on above: Performed By: #### L 500.4100, L100.0100, L501.9520, L501.9985, L500.4050, L506.1000 #### [facility] [address] [place], [address] Monocytes/100 WBC (Bld) 2.6 % Normal 0-10 [facility] Comment on above: Performed By: #### L 500.4100, L100.0100, L501.9520, L501.9985, L500.4050, L506.1000 #### [facility] [address] [place], [address] Neutrophils/100 WBC (Bld) 88.1 % High 47-70 [facility] Comment on above: Performed By: #### L 500.4100, L100.0100, L501.9520, L501.9985, L500.4050, L506.1000 #### [facility] [address] [place], [address] Nucleated RBC (Bld) [#/Vol] 0 10*3/uL Normal 0-5 [facility] Comment on above: Performed By: #### L 500.4100, L100.0100, L501.9520, L501.9985, L500.4050, L506.1000 #### [facility] [address] [place], [address] Platelet mean volume (Bld) [Entitic vol] 10.2 fL Normal 6.2-12.0 [facility] Comment on above: Performed By: #### L 500.4100, L100.0100, L501.9520, L501.9985, L500.4050, L506.1000 #### [facility] [address] [place], [address] Platelets (Bld) [#/Vol] 294 10*3/uL Normal 150-450 [facility] Comment on above: Performed By: #### L 500.4100, L100.0100, L501.9520, L501.9985, L500.4050, L506.1000 #### [facility] [address] [place], [address] RBC (Bld) [#/Vol] 4.15 10*6/uL Low 4.2-5.4 [facility] Comment on above: Performed By: #### L 500.4100, L100.0100, L501.9520, L501.9985, L500.4050, L506.1000 #### [facility] [address] [place], [address] RDW SD 46.8 fl High 35.1-43.9 [facility] Comment on above: Performed By: #### L 500.4100, L100.0100, L501.9520, L501.9985, L500.4050, L506.1000 #### [facility] [address] [place], [address] WBC (Bld) [#/Vol] 18.0 10*3/uL High 4.4-11.0 [facility] Comment on above: Performed By: #### L 500.4100, L100.0100, L501.9520, L501.9985, L500.4050, L506.1000 #### [facility] [address] [place], [address] Chest 1 View (Portable)on Chest 1 View (Portable) [facility] Imaging Services [address] [place] [address] Chest 1 View (Portable) MR#: [id number] Acct: [id number] Name: JACKELYN BRADSHAW Rep #: [id number] : 1940 F 83 From: Solomon Pichardo MD PCP: Dr. Yoav Chakraborty MD Status: REG ER Study: Chest 1 View (Portable) Date of Exam: 01/12/24 Exam# [id number] Ordering Dr: Chacho Epperson DO [id number] STUDY: X-RAY CHEST REASON FOR EXAM: Female, 83 years old. surgical clearance TECHNIQUE: AP portable COMPARISON: March 08, 2023 FINDINGS: Elevated left hemidiaphragm and minor subsegmental atelectasis or scarring at the left base. Small calcified granuloma in left upper lobe. There is no demonstrated pleural abnormality. Normal size heart. Normal mediastinum and [place]. Normal visualized pulmonary arteries. Tortuous mildly calcified aortic arch and descending thoracic aorta. Dorsal spine demonstrates mild degenerative change. Normal visualized ribs, clavicles, and shoulders. There is no demonstrated abnormality of the visualized soft tissue structures of the upper abdomen. No significant change since prior study RAD/Chest 1 View (Portable) IMPRESSION: No acute cardiopulmonary pathology Electronically Signed: Solomon Pichardo MD at 16:53 EDT , CC: Dr. Chacho Epperson DO; Dr. 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 Normal [facility] Culture, urineOrdered By: Purvi Fragoso on 01-12-2024 Bacteria identified Cx Nom (U) Staphylococcus warneri [facility] Determination of erythrocyte mean corpuscular volume (MCV)Ordered By: Chacho Epperson on 01-12-2024 MCV (RBC) [Entitic vol] 98.1 fL 81-99 [facility] Emergency Department Summary on 01-12-2024 Emergency Department Summary [facility] Medical Records Department [address] [place] [address] Emergency Department Summary 01/12/24 MR#: [id number] Acct: [id number] Name: JACKELYN BRADSHAW Rep #: [id number] : 1940 83 From: Chacho Epperson DO PCP: Dr. Yoav Chakraborty MD Status:ADM IN Location: [facility] [id number] History of Present Illness Chief Complaint: Lower Extremity Injury [facility] Medical History Chronic kidney disease Dementia Hx of breast cancer Hypertension Skin cancer Home Medications lisinopril 40 mg tablet (Zestril) 20 mg PO DAILY 12/30/16 [History Last Taken Unknown] olanzapine 5 mg tablet 5 mg PO DAILY 08/05/22 [History Last Taken Unknown] oxybutynin chloride 5 mg tablet 5 mg PO BID 08/05/22 [History Last Taken Unknown] amlodipine 5 mg tablet 5 mg PO DAILY 01/12/24 [History Last Taken Unknown] citalopram 40 mg tablet 40 mg PO DAILY 01/12/24 [History Last Taken Unknown] cyclobenzaprine 5 mg tablet 5 mg PO QHS 01/12/24 [History Last Taken Unknown] divalproex 125 mg capsule,delayed release sprinkle 125 mg PO BID 01/12/24 [History Last Taken Unknown] galantamine 24 mg 24 hr capsule,extended release 24 mg PO DAILY 01/12/24 [History Last Taken Unknown] lisinopril 20 mg tablet 20 mg PO DAILY 01/12/24 [History Last Taken Unknown] melatonin 10 mg capsule 10 mg PO QHS 01/12/24 [History Last Taken Unknown] memantine 10 mg tablet 10 mg PO BID 01/12/24 [History Last Taken Unknown] Allergy/AdvReac Type Severity Reaction Status Date / Time acetaminophen AdvReac Severe hallucinati Verified 01/12/24 14:01 [From Darvocet-N] ons azithromycin [From Zithromax] AdvReac Severe swell/tingl Verified 01/12/24 14:01 e meperidine [From Demerol] AdvReac Severe numbness/vo Verified 01/12/24 14:01 miting oxytetracycline AdvReac Severe swell,tingl Verified 01/12/24 14:01 [From Terramycin] e Penicillins [PCN] AdvReac Severe swell,tingl Verified 01/12/24 14:01 e propoxyphene AdvReac Severe hallucinati Verified 01/12/24 14:01 [From Darvocet-N] ons Sulfa (Sulfonamide AdvReac Severe welts Verified 01/12/24 14:01 Antibiotics) Family History Father Hypertension Mother Alzheimer disease Diabetes Hypertension Surgical History History of appendectomy History of hysterectomy Hx of cholecystectomy Hx of tonsillectomy Social History Smoking Status: Former smoker EXAM Physical Exam Const Vital Signs: 01/12/24 14:02 01/12/24 15:30 01/12/24 17:00 Temperature 97.4 F L 98.1 F Temperature Source Temporal Pulse Rate 69 78 73 Respiratory Rate 14 24 H 19 H Blood Pressure 148/79 H 130/68 H 132/72 H Blood Pressure Mean 102 85 92 Pulse Ox 98 96 94 Oxygen Delivery Method Room Air 01/12/24 17:00 Temperature 98.1 F Temperature Source Oral Pulse Rate 73 Respiratory Rate 19 H Blood Pressure 132/72 H Blood Pressure Mean 92 Pulse Ox 94 Oxygen Delivery Method Room Air MDM MDM MDM Narrative Medical decision making narrative: Patient presenting with left hip pain after mechanical Shortened and internally rotated likely fracture. Patient medicated with morphine, Zofran. Patient would likely need surgical clearance and EKG was obtained which shows normal sinus rhythm with a ventricular rate of 69 bpm without ischemic change. CT brain and cervical spine were negative. No chest x-ray was obtained and patient has no acute process. X-rays of the left hip on my interpretation 3 views show left intertrochanteric fracture with comminution. Discussed case with Dr. Morgan who recommended a CT image to rule out malignancy on that side. CT of the left hip does not show any evidence of this. CBC shows leukocytosis of 18. Hemoglobin 12.9. Platelets are 294. Creatinine mildly elevated 1.38. Electrolytes are normal. Chest x-ray on my interpretation showed no acute cardiopulmonary process. The radiologist interpretation agrees. EKG sinus rhythm at 69 bpm without sign ischemic change or ectopy on my interpretation. Urinalysis negative for infection. Patient was discussed with hospitalist for admission for surgery. Impression: 1. mechanical fall 2. leukocytosis 3. Left intertrochanteric fracture 4. Closed head injury Lab Data Attestation: I reviewed the patient's lab results. Labs: Laboratory Results - last 24 hr 01/12/24 01/12/24 14:53 15:49 WBC 18.0 H RBC 4.15 L Hgb 12.9 Hct 40.7 MCV 98.1 MCH 31.1 MCHC 31.7 L RDW Std Deviation 46.8 H RDW Coeff of Jina 13.1 Plt Count 294 MPV 10.2 Immature Gran % (Auto) 0.500 Neut % (Auto (more content not included)... Normal [facility] Erythrocyte distribution wid th ratioOrdered By: Chacho Epperson on 01-12-2024 Erythrocyte distribution width (RBC) [Ratio] 13.1 % 11.6-14.6 [facility] Erythrocyte distribution wid th standard deviationOrdered By: Chacho Epperson on 01-12-2024 Erythrocyte distribution width (RBC) [Entitic vol] 46.8 fL 35.1-43.9 [facility] Extremity Lower without Cont raon 01-12-2024 Extremity Lower without Contra [facility] Imaging Services [address] [place] [address] Extremity Lower without Contra MR#: [id number] Acct: [id number] Name: JACKELYN BRADSHAW Rep #: [id number] : 1940 F 83 From: Jimi Rubin MD PCP: Dr. Yoav Chakraborty MD Status: REG ER Study: Extremity Lower without Contra Date of Exam: 0 01/12/24 Exam# [id number] Ordering Dr: Chacho Epperson DO [id number] EXAM: CT LEFT LOWER EXTREMITY WITHOUT INTRAVENOUS CONTRAST CLINICAL INDICATION: hip fracture TECHNIQUE: Helically acquired images were obtained of the left lower extremity without intravenous contrast. 2-D reformats were performed by the technologist. This CT exam was performed using one or more of the following dose reduction techniques: automated exposure control, adjustment of the mA and/or kV according to patient size, and/or use of iterative reconstruction technique. COMPARISON: No relevant prior studies available. FINDINGS: BONES/JOINTS: Is severely comminuted intertrochanteric fracture of the left femur noted. The distal femoral shaft is angulated medially. The lesser trochanter fracture fragment is mildly displaced medially. No subluxation of the hip. The visualized bony pelvis is intact. SOFT TISSUES: Soft tissue contusion noted at the level of the fracture without significant hematoma formation. No soft tissue swelling or gas. No radiopaque foreign body. BLADDER: Sal catheter in place within a decompressed urinary bladder. CT/Extremity Lower without Contra IMPRESSION: Acute comminuted intertrochanteric fracture of the left femur. Electronically Signed: Jimi Rubin MD at 16:48 EDT , CC: Dr. Chacho Epperson DO; Dr. 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 Yoav Chakraborty MD Status: ADM IN Study: Femur Min 2 Views Date of Exam: 01/12/24 Exam# [id number] Ordering Dr: David Morgan MD [id number] STUDY: X-RAY - LEFT FEMUR REASON FOR STUDY: Female, 83 years old. FRACTURE TECHNIQUE: 4 view(s) of the femur. COMPARISON: None. FINDINGS: Acute impacted intertrochanteric fracture with overlapping of fracture fragments and varus angulation of fracture fragments.. . RAD/Femur Min 2 Views IMPRESSION: Acute intertrochanteric fracture of the left hip. Otherwise normal femur Electronically Signed: Solomon Pichardo MD at 21:53 EDT , CC: Dr. Yoav Chakraborty MD; Dr. 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 Yoav Chakraborty MD Status:ADM IN Location: [facility] [id number] HPI - General General Date of Admission: 01/12/24 HPI Narrative JACKELYN BRADSHAW, is a 83 F who presents to the hospital after mechanical fall. She was standing in front of her recliner and was trying to turn to be able to sit into it and she lost her balance and fell onto her left hip. In the ER she had a CT of the brain which was unremarkable CT C-spine was also normal and her hip and pelvis x-ray demonstrated a left intertrochanteric fracture, orthopedic surgery was consulted in the ER and they requested a CT scan that did not demonstrate any additional findings. [facility] Medical History (Updated 01/12/24 @ 19:[address] Howard Fragoso MD) Anxiety Atrial fibrillation Chronic kidney disease Dementia Depression Hx of breast cancer Hypertension Skin cancer TIA (transient ischemic attack) Home Medications lisinopril 40 mg tablet (Zestril) 20 mg PO DAILY 12/30/16 [History Last Taken Unknown] olanzapine 5 mg tablet 5 mg PO DAILY 08/05/22 [History Last Taken Unknown] oxybutynin chloride 5 mg tablet 5 mg PO BID 08/05/22 [History Last Taken Unknown] amlodipine 5 mg tablet 5 mg PO DAILY 01/12/24 [History Last Taken Unknown] citalopram 40 mg tablet 40 mg PO DAILY 01/12/24 [History Last Taken Unknown] cyclobenzaprine 5 mg tablet 5 mg PO QHS 01/12/24 [History Last Taken Unknown] divalproex 125 mg capsule,delayed release sprinkle 125 mg PO BID 01/12/24 [History Last Taken Unknown] galantamine 24 mg 24 hr capsule,extended release 24 mg PO DAILY 01/12/24 [History Last Taken Unknown] lisinopril 20 mg tablet 20 mg PO DAILY 01/12/24 [History Last Taken Unknown] melatonin 10 mg capsule 10 mg PO QHS 01/12/24 [History Last Taken Unknown] memantine 10 mg tablet 10 mg PO BID 01/12/24 [History Last Taken Unknown] Allergy/AdvReac Type Severity Reaction Status Date / Time acetaminophen AdvReac Severe hallucinati Verified 01/12/24 14:01 [From Darvocet-N] ons azithromycin [From Zithromax] AdvReac Severe swell/tingl Verified 01/12/24 14:01 e meperidine [From Demerol] AdvReac Severe numbness/vo Verified 01/12/24 14:01 miting oxytetracycline AdvReac Severe swell,tingl Verified 01/12/24 14:01 [From Terramycin] e Penicillins [PCN] AdvReac Severe swell,tingl Verified 01/12/24 14:01 e propoxyphene AdvReac Severe hallucinati Verified 01/12/24 14:01 [From Darvocet-N] ons Sulfa (Sulfonamide AdvReac Severe welts Verified 01/12/24 14:01 Antibiotics) Family History Father Hypertension Mother Alzheimer disease Diabetes Hypertension Surgical History History of appendectomy History of hysterectomy Hx of cholecystectomy Hx of tonsillectomy Social History Smoking Status: Former smoker ROS Constitutional Constitutional: Denies chills, fatigue, fever(s) or malaise Eyes Eyes: Denies blurry vision ENT HEENT: Denies headache(s) or nasal discharge Cardiovascular Cardiovascular: Denies chest pain, dyspnea on exertion or syncope Respiratory/Chest Respiratory/Chest: Denies cough, shortness of breath at rest or shortness of breath with exertion Gastrointestinal Gastrointestinal: Denies constipation, diarrhea, nausea or vomiting Genitourinary Genitourinary: Denies dysuria Musculoskeletal Musculoskeletal: Reports joint pain Neurologic Neurologic: Denies focal weakness, numbness or tremor(s) Psychiatric Psychiatric: Denies anxiety or depression Vital Signs Vital Signs Vital Signs: 01/12/24 14:02 01/12/24 15:30 01/12/24 17:00 Temperature 97.4 F L 98.1 F Temperature Source Temporal Pulse Rate 69 78 73 Respiratory Rate 14 24 H 19 H Blood Pressure 148/79 H 130/68 H 132/72 H Blood Pressure Mean 102 85 92 Blood Pressure Source Blood Pressure Position Blood Pressure Location Pulse Ox 98 96 94 Oxygen Delivery Method Room Air 01/12/24 17:00 01/12/24 19:06 Temperature 98.1 F 97.7 F L Temperature Source Oral Oral Pulse Rate 73 85 Respiratory Rate 19 H 18 Blood Pressure 132/72 H 146/52 H Blood Pressure Mean 92 83 Blood Pressure Source Monitor Blood Pressure Position Semi-Fowlers Blood Pressure Location Right Arm Pulse Ox 94 96 Oxygen Delivery Method Room Air Room Air Weight Weight: 166 lb 9.6 oz Body Mass Index (BMI) 30.4 Physical Exam Narrative General: Alert, Oriented x3, (more content not included)... Normal [facility] HIP, UNI W/ Pelvis 2-3 Views on 01-12-2024 HIP, UNI W/ Pelvis 2-3 Views [facility] Imaging Services [address] [place] [address] HIP, UNI W/ Pelvis 2-3 Views MR#: [id number] Acct: [id number] Name: JACKELYN BRADSHAW Rep #: [id number] : 1940 F 83 From: Naga hussein MD PCP: Dr. Yoav Chakraborty MD Status: PRE ER Study: HIP, UNI W/ Pelvis 2-3 Views Date of Exam: 06/28 Exam# [id number] Ordering Dr: Chacho Epperson DO [id number] STUDY: X-RAY - PELVIS AND LEFT HIP REASON FOR EXAM: Female, 83 years old. Pain TECHNIQUE: 3 views of the pelvis and hip. COMPARISON: None. FINDINGS: Moderate amount of material is seen in the colon. There are atherosclerotic vascular calcifications of the pelvic arteries. Normal bilateral iliac wings, sacroiliac joints and visualized sacrum. Normal bilateral superior and inferior pubic rami. Normal pubic symphysis. Normal bilateral ischial tuberosities. Comminuted facture of the left intertrochanteric region of the proximal left femur. RAD/HIP, UNI W/ Pelvis 2-3 Views IMPRESSION: Comminuted left intertrochanteric fracture. Electronically Signed: Naga Garcia MD at 15:10 EDT , CC: Dr. Chacho Epperson DO; Dr. 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 Ketones Test strip Ql (U)Ord ered By: Chacho Epperson on 01-12-2024 Ketones Ql (U) 5 mg/dl Negative [facility] - Chemistry and C hemistry - challengeOrdered By: Chacho Epperson on 01-12-2024 CO2 [Moles/Vol] 29.0 mmol/L 21.0-32.0 [facility] Urea nitrogen/Creatinine [Mass ratio] 17.4 mg/mg 10-20 [facility] - Hematology and Cell countsOrdered By: Chacho Epperson on 01-12-2024 MCH (RBC) [Entitic mass] 31.1 pg 27.0-32.0 [facility] MCHC (RBC) [Mass/Vol] 31.7 g/dL 32-36 [facility] Nucleated RBC/100 WBC (Bld) [Ratio] 0 % 0-5 [facility] Platelet mean volume (Bld) [Entitic vol] 10.2 fL 6.2-12.0 [facility] Platelets (Bld) [#/Vol] 294 10*3/uL 150-450 [facility] Mucus LM Ql (Urine sed)Order ed By: Chacho Epperson on 01-12-2024 Mucus Ql (Urine sed) 1+ /hpf [facility] Nitrite Test strip Ql (U)Ord ered By: Chacho Epperson on 01-12-2024 Nitrite Ql (U) Negative Negative [facility] No Panel InformationOrdered By: Chacho Epperson on 01-12-2024 Estimated Creatinine Clearance Calc 30.01 ml/min [facility] Estimated GFR (MDRD) Amer 47 mL/min >60 [facility] Comment on above: GFR Calc Estimated GFR (MDRD) Non-Af Amer 39 mL/min >60 [facility] Comment on above: Non- GFR Calc Urine RBC 0 SEEN /hpf 0-5 [facility] Protein Test strip Ql (U)Ord ered By: Chacho Epperson on 01-12-2024 Protein Ql (U) 30 mg/dl Negative [facility] RBC Auto (Bld) [#/Vol]Ordere d By: Chacho Epperson on 01-12-2024 RBC (Bld) [#/Vol] 4.15 10*6/uL 4.2-5.4 [facility] Serum or plasma calcium phill urement (mass/volume)Ordered By: Chacho Epperson on 01-12-2024 Calcium [Mass/Vol] 9.0 mg/dL 8.5-10.1 [facility] Serum or plasma creatinine m easurement (mass/volume)Ordered By: Chacho Epperson on 01-12-2024 Creatinine [Mass/Vol] 1.38 mg/dL 0.55-1.02 [facility] Comment on above: The validity of the calculated GFR & GFRAA in patients over 70 years has not been determined. Clinical correlation is essential. Serum or plasma urea nitroge n measurement (mass/volume)Ordered By: Chacho Epperson on 01-12-2024 Urea nitrogen [Mass/Vol] 24 mg/dL 7-18 [facility] Spine Cervical without Contr ason 01-12-2024 Spine Cervical without Contras [facility] Imaging Services [address] [place] [address] Spine Cervical without Contras MR#: [id number] Acct: [id number] Name: JACKELYN BRADSHAW Rep #: [id number] : 1940 F 83 From: Naga hussein MD PCP: Dr. Yoav Chakraborty MD Status: [facility] ER Study: Spine Cervical without Contras Date of Exam: 0 01/12/24 Exam# [id number] Ordering Dr: Chacho Epperson DO [id number] STUDY: CT CERVICAL SPINE WITHOUT CONTRAST REASON FOR EXAM: Female, 83 years old. Trauma due to a fall. RADIATION DOSAGE (If Supplied By Facility): CTDIvol = ( 21.91 ) mGy, DLP = ( 438.6 ) mGycm TECHNIQUE: High resolution transaxial imaging was performed without contrast material. Sagittal and coronal images were reconstructed. Individualized dose optimization techniques were used for this CT. COMPARISON: None FINDINGS: Normal craniovertebral junction. There are degenerative changes of the anterior atlantoaxial articulation. Normal odontoid process. There is straightening of the normal cervical lordosis. Normal vertebral bodies and posterior osseous elements. C2-3: Facet joint osteoarthritis and hypertrophy on the right side with right neural foraminal stenosis. C3-4: Mild degree of disc space narrowing. Facet joint osteoarthritis bilaterally. Uncovertebral arthrosis. Mild degree of bilateral neural foraminal stenosis. C4-5: Moderate degree of disc space narrowing. Spondylosis. Uncovertebral arthrosis. Left neural foraminal stenosis due to hypertrophy of the left facet joint. C5-6: Marked degree of disc space narrowing. Spondylosis. Uncovertebral arthrosis. Mild degree of bilateral neural foraminal stenosis. C6-7: Moderate degree of disc space narrowing and disc degeneration with spondylosis. C7-T1: Normal endplates. Normal disc height and morphology. Normal central canal and intervertebral neuroforamina. Atherosclerotic plaque formation of the aortic arch. CT/Spine Cervical without Contras IMPRESSION: Multilevel degenerative changes, as described above. Electronically Signed: Naga Garcia MD at 15:26 EDT , CC: Dr. Chacho Epperson DO; Dr. 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9520, L501.9985, L500.4050, L506.1000 #### [facility] [address] [place], [address] Mucus Ql (Urine sed) 1+ /hpf Normal [facility] Comment on above: Order Comment: COLLE CTOR TO SPECIFY Performed By: #### L 500.4100, L100.0100, L501.9520, L501.9985, L500.4050, L506.1000 #### [facility] [address] [place], [address] WBC 0-5 SEEN Normal 0-5 [facility] Comment on above: Order Comment: GINGER CTOR TO SPECIFY Performed By: #### L 500.4100, L100.0100, L501.9520, L501.9985, L500.4050, L506.1000 #### [facility] [address] [place], [address] EPI,SQUAMOUS 0 SEEN Normal 5-10 [facility] Comment on above: Order Comment: GINGER CTOR TO SPECIFY Performed By: #### L 500.4100, L100.0100, L501.9520, L501.9985, L500.4050, L506.1000 #### [facility] [address] [place], [address] RBC 0 SEEN Normal 0-5 [facility] Comment on above: Order Comment: COLLE CTOR TO SPECIFY Performed By: #### L 500.4100, L100.0100, L501.9520, L501.9985, L500.4050, L506.1000 #### [facility] [address] [place], [address] Urine blood detectionOrdered By: Chacho Epperson on 01-12-2024 RBC Ql (U) 25 /ul Negative [facility] Urine clarityOrdered By: Servando Epperson on 01-12-2024 Clarity (U) Clear Clear [facility] Urine color determinationOrd ered By: Chacho Epperson on 01-12-2024 Color (U) Yellow Yellow [facility] Urine glucose detectionOrder ed By: Chacho Epperson on 01-12-2024 Glucose Ql (U) Normal mg/dl Normal [facility] Urine leukocyte esterase det ection by dipstickOrdered By: Chacho Epperson on 01-12-2024 Leukocyte esterase Test strip Ql (U) 100 /ul Negative [facility] Urine pHOrdered By: Chacho ayala on 01-12-2024 pH (U) 6.0 [pH] 5.0 - 8.0 [facility] [facility] Urine sediment bacteria coun t by microscopy (number/high power field)Ordered By: Chacho Epperson on 01-12-2024 Bacteria LM.HPF (Urine sed) [#/Area] 1 /[HPF] None Seen [facility] Urine specific gravity measu rementOrdered By: Chacho Epperson on 01-12-2024 Specific gravity (U) [Rel density] 1.020 1.002-1.030 [facility] Urine urobilinogen measureme ntOrdered By: Chacho Epperson on 01-12-2024 Urobilinogen Ql (U) 1 mg/dl Normal [facility] Absolute lymphocyte countOrd ered By: Connor Kay on 08-19-2023 Lymphocytes Auto (Unsp spec) [#/Vol] 3.15 10*3/uL 0.83-4.51 [facility] Basophil percentageOrdered B y: Connor Kay on 08-19-2023 Basophils/100 WBC (Bld) 0.5 % 0-1 [facility] Bilirubin [Mass/Vol] 0.20 mg/dL 0.20-1.00 [facility] Comment on above: For patients on eltr ombopag therapy, use of Dimension [place] TBIL is not recommended. Chloride [Moles/Vol] 103 mmol/L 98-107 [facility] Eosinophils/100 WBC (Bld) 1.0 % 0-5 [facility] Glucose [Mass/Vol] 106 mg/dL 74-106 [facility] Comment on above: Fasting Glucose resu lt from 100 to 125 mg/dL suggests IMPAIRED HOMEOSTASIS per A.D.A. criteria. Neutrophils (Bld) [#/Vol] 4.4 10*3/uL 2.0-7.7 [facility] Neutrophils/100 WBC (Bld) 53.1 % 47-70 [facility] Potassium [Moles/Vol] 3.9 mmol/L 3.5-5.1 [facility] Protein [Mass/Vol] 7.4 g/dL 6.4-8.2 [facility] Sodium [Moles/Vol] 139 mmol/L 136-145 [facility] WBC (Bld) [#/Vol] 8.4 10*3/uL 4.4-11.0 [facility] Blood erythrocytes count (nu mber/volume)Ordered By: Connor Kay on 08-19-2023 RBC (Bld) [#/Vol] 3.93 10*6/uL 4.2-5.4 [facility] Blood hemoglobin measurement (mass/volume)Ordered By: Connor Kay on 08-19-2023 Hemoglobin (Bld) [Mass/Vol] 12.2 g/dL 12.0-15.0 [facility] Blood lymphocytes/100 leukoc ytesOrdered By: Connor Kay on 08-19-2023 Lymphocytes/100 WBC (Bld) 37.6 % 19-41 [facility] Blood monocytes/100 leukocyt esOrdered By: Connor Kay on 08-19-2023 Monocytes/100 WBC (Bld) 7.6 % 0-10 [facility] Blood platelet mean volumeOr dered By: Connor Kay on 08-19-2023 Platelet mean volume (Bld) [Entitic vol] 10.7 fL 6.2-12.0 [facility] Determination of erythrocyte mean corpuscular volume (MCV)Ordered By: Connor Kay on 08-19-2023 MCV (RBC) [Entitic vol] 99.2 fL 81-99 [facility] Hematocrit Auto (Bld) [Volum e fraction]Ordered By: Connor Rahul on 08-19-2023 Hematocrit (Bld) [Volume fraction] 39.0 % 37-47 [facility] Laboratory - Chemistry and C hemistry - challengeOrdered By: Connor Kay on 08-19-2023 ALP [Catalytic activity/Vol] 109 U/L 45-117 [facility] ALT [Catalytic activity/Vol] 12 U/L 13-56 [facility] CO2 [Moles/Vol] 30.0 mmol/L 21.0-32.0 [facility] Globulin (S) [Mass/Vol] 4.4 g/dL 2.2-4.2 [facility] Urea nitrogen/Creatinine [Mass ratio] 16.8 mg/mg 10-20 [facility] Laboratory - Hematology and Cell countsOrdered By: Connor Kay on 08-19-2023 Erythrocyte distribution width (RBC) [Entitic vol] 47.0 fL 35.1-43.9 [facility] Erythrocyte distribution width (RBC) [Ratio] 12.9 % 11.6-14.6 [facility] Immature granulocytes/100 WBC (Bld) 0.200 % 0.0-0.9 [facility] Comment on above: IG% - Immature Granu locytes (promyelocytes, myelocytes and metamyelocytes) > 1% indicates that a LEFT SHIFT is Present. MCH (RBC) [Entitic mass] 31.0 pg 27.0-32.0 [facility] Nucleated RBC/100 WBC (Bld) [Ratio] 0 % 0-5 [facility] MCHC Auto (RBC) [Mass/Vol]Or dered By: Connor Kay on 08-19-2023 MCHC (RBC) [Mass/Vol] 31.3 g/dL 32-36 [facility] No Panel InformationOrdered By: Connor Kay on 08-19-2023 Estimated GFR (MDRD) Amer 50 mL/min >60 [facility] Comment on above: GFR Calc Estimated GFR (MDRD) Non-Af Amer 41 mL/min >60 [facility] Comment on above: Non- GFR Calc Thyroid Stimulating Hormone (TSH) 4.46 uIU/mL 0.358-3.74 [facility] Vitamin D 25-Hydroxy 69.8 ng/mL [facility] Comment on above: Vitamin D 25(OH) Sta tus Range Deficiency <20 ng/mL (50nmol/L) Insufficiency 20 - 30 ng/mL (50 - 75 nmol/L) Sufficiency 30 - 100 ng/mL (75 - 250 nmol/L) Toxicity >100 ng/mL (>250 nmol/L) Platelets bldOrdered By: Connor Kay on 08-19-2023 Platelets (Bld) [#/Vol] 260 10*3/uL 150-450 [facility] Serum or plasma albumin phill urement (mass/volume)Ordered By: Connor Kay on 08-19-2023 Albumin [Mass/Vol] 3.0 g/dL 3.2-5.0 [facility] Serum or plasma albumin/glob ulin mass ratioOrdered By: Connor Kay on 08-19-2023 Albumin/Globulin [Mass ratio] 0.7 {ratio} 0.9-2.4 [facility] Serum or plasma calcium phill urement (mass/volume)Ordered By: Connor Kay on 08-19-2023 Calcium [Mass/Vol] 8.6 mg/dL 8.5-10.1 [facility] Serum or plasma creatinine m easurement (mass/volume)Ordered By: Connor Kay on 08-19-2023 Creatinine [Mass/Vol] 1.31 mg/dL 0.55-1.02 [facility] Comment on above: The validity of the calculated GFR & GFRAA in patients over 70 years has not been determined. Clinical correlation is essential. Serum or plasma urea nitroge n measurement (mass/volume)Ordered By: Connor Kay on 08-19-2023 Urea nitrogen [Mass/Vol] 22 mg/dL 7-18 [facility] Thin prep Papanicolaou smear with manual screeningOrdered By: Connor Rahul 08-19-2023 Thin prep Papanicolaou smear with manual screening 14 U/L 15-37 [facility] Thin prep Papanicolaou smear with manual screening 6 5-15 [facility] 36on 05-02-2023 36 S: Patient calling t he [facility] for a medication refill. B: Medication: Citalopram 20 mg . A. Daughter requesting refill. R: Paged medical education specialist provider. Dr. Art prescribed Citalopram 20 mg 2 times daily. Dispense 60. No refills. Called [facility] pharmacy @ [phone]. Daughter notified. Message sent to provider via right fax. Your fax has been successfully sent to Dr. Chakraborty at [phone]. Reason for Disposition [1] Prescription refill request for NON-ESSENTIAL medicine (i.e., no harm to patient if med not taken) AND [2] triager unable to refill per department policy Protocols used: Medication Refill and Renewal [facility] CBC W Auto Differential pane l (Bld)on 03-05-2023 Basophils (Bld) [#/Vol] 0.03 10*3/uL <0.11 k/uL [facility] Basophils/100 WBC (Bld) 0.5 % [facility] Differential cell count method Nom (Bld) Auto [facility] Eosinophils (Bld) [#/Vol] 0.10 10*3/uL <0.46 k/uL [facility] Eosinophils/100 WBC (Bld) 1.5 % [facility] Erythrocyte distribution width (RBC) [Ratio] 12.9 % 11.5 - 15.0 % [facility] Hematocrit (Bld) [Volume fraction] 37.2 % 36.0 - 46.0 % [facility] Hemoglobin (Bld) [Mass/Vol] 12.3 g/dL 11.5 - 15.5 g/dL [facility] Immature granulocytes (Bld) [#/Vol] 0.05 10*3/uL <0.10 k/uL [facility] Immature granulocytes/100 WBC (Bld) 0.8 % [facility] Lymphocytes (Bld) [#/Vol] 1.82 10*3/uL 1.00 - 4.00 k/uL [facility] Lymphocytes/100 WBC (Bld) 28.0 % [facility] MCH (RBC) [Entitic mass] 32.2 pg 26.0 - 34.0 pg [facility] MCHC (RBC) [Mass/Vol] 33.1 g/dL 30.5 - 36.0 g/dL [facility] MCV (RBC) [Entitic vol] 97.4 fL 80.0 - 100.0 fL [facility] Monocytes (Bld) [#/Vol] 0.48 10*3/uL <0.87 k/uL [facility] Monocytes/100 WBC (Bld) 7.4 % [facility] Neutrophils (Bld) [#/Vol] 4.01 10*3/uL 1.45 - 7.50 k/uL [facility] Neutrophils/100 WBC (Bld) 61.8 % [facility] Nucleated RBC (Bld) [#/Vol] <0.01 k/uL [facility] Nucleated RBC/100 WBC (Bld) [Ratio] 0.0 /100 WBC [facility] Platelet mean volume (Bld) [Entitic vol] 10.3 fL 9.0 - 12.7 fL [facility] Platelets (Bld) [#/Vol] 166 10*3/uL 150 - 400 k/uL [facility] RBC (Bld) [#/Vol] 3.82 10*6/uL Low 3.90 - 5.2 0 m/uL [facility] WBC (Bld) [#/Vol] 6.49 10*3/uL 3.70 - 11. 00 k/uL [facility] Comprehensive metabolic 2000 panelon 03-05-2023 Albumin [Mass/Vol] 3.6 g/dL Low 3.9 - 4.9 g/dL [facility] ALP [Catalytic activity/Vol] 83 U/L 34 - 123 U/L [facility] ALT [Catalytic activity/Vol] 9 U/L 7 - 38 U/L [facility] Anion gap [Moles/Vol] 12 mmol/L 9 - 18 mmol/L [facility] AST [Catalytic activity/Vol] 16 U/L 13 - 35 U/L [facility] Bilirubin [Mass/Vol] 0.3 mg/dL 0.2 - 1 .3 mg/dL [facility] Calcium [Mass/Vol] 8.9 mg/dL 8.5 - 10. 2 mg/dL [facility] Chloride [Moles/Vol] 106 mmol/L High 97 - 10 5 mmol/L [facility] CO2 [Moles/Vol] 25 mmol/L 22 - 30 mmol/L [facility] Creatinine [Mass/Vol] 1.09 mg/dL High 0.58 - 0.96 mg/dL [facility] Estimated Glomerular Filtration Rate 51 mL/min/1.73m Low >=60 mL/min/1.73m [facility] Glucose [Mass/Vol] 90 mg/dL 74 - 99 mg/dL [facility] Potassium [Moles/Vol] 4.5 mmol/L 3.7 - 5.1 mmol/L [facility] Protein [Mass/Vol] 7.0 g/dL 6.3 - 8.0 g/dL [facility] Sodium [Moles/Vol] 143 mmol/L 136 - 144 mmol/L [facility] Urea nitrogen [Mass/Vol] 25 mg/dL High 7 - 21 mg/dL [facility] 36on 08-05-2022 36 Tried to returned th e call. Phone number is the wrong number. Normal [facility] Absolute lymphocyte counton 08-05-2022 Lymphocytes Auto (Unsp spec) [#/Vol] 1.25 10*3/uL 0.83-4.51 [facility] Work Phone: Basophil percentageon 2021 Basophil percentage 0-5 SEEN /hpf 0-5 [facility] Work Phone: Basophil percentage < 10.0 umol/L 11-32 [facility] Work Phone: Basophils/100 WBC (Bld) 0.4 % 0-1 [facility] Work Phone: [phone] Bilirubin [Mass/Vol] 0.30 mg/dL 0.20-1.00 [facility] Work Phone: Comment on above: For patients on eltr ombopag therapy, use of Dimension [place] TBIL is not recommended. Chloride [Moles/Vol] 109 mmol/L 98-107 [facility] Work Phone: [phone] Eosinophils/100 WBC (Bld) 0.1 % 0-5 [facility] Work Phone: Glucose [Mass/Vol] 131 mg/dL 74-106 [facility] Work Phone: Comment on above: Fasting Glucose resu lt greater than or equal to 126 mg/dL suggests DIABETES MELLITUS per A.D.A. criteria. Neutrophils (Bld) [#/Vol] 6.3 10*3/uL 2.0-7.7 [facility] Work Phone: Neutrophils/100 WBC (Bld) 78.4 % 47-70 [facility] Work Phone: [phone] Potassium [Moles/Vol] 4.1 mmol/L 3.5-5.1 [facility] Work Phone: Protein [Mass/Vol] 7.0 g/dL 6.4-8.2 [facility] Work Phone: Sodium [Moles/Vol] 143 mmol/L 136-145 [facility] Work Phone: WBC (Bld) [#/Vol] 8.0 10*3/uL 4.4-11.0 [facility] Work Phone: Bilirubin Test strip Ql (U)o n 08-05-2022 Bilirubin Ql (U) Negative Negative [facility] Work Phone: Blood erythrocytes count (nu mber/volume)on 08-05-2022 RBC (Bld) [#/Vol] 3.45 10*6/uL 4.2-5.4 [facility] Work Phone: Blood hemoglobin measurement (mass/volume)on 08-05-2022 Hemoglobin (Bld) [Mass/Vol] 10.7 g/dL 12.0-15.0 [facility] Work Phone: Blood lymphocytes/100 leukoc yteson 08-05-2022 Lymphocytes/100 WBC (Bld) 15.6 % 19-41 [facility] Work Phone: Blood monocytes/100 leukocyt eson 08-05-2022 Monocytes/100 WBC (Bld) 5.1 % 0-10 [facility] Work Phone: Blood platelet mean volumeon 08-05-2022 Platelet mean volume (Bld) [Entitic vol] 10.8 fL 6.2-12.0 [facility] Work Phone: [phone] Determination of erythrocyte mean corpuscular volume (MCV)on 08-05-2022 MCV (RBC) [Entitic vol] 96.2 fL 81-99 [facility] Work Phone: Hematocrit Auto (Bld) [Volum e fraction]on 08-05-2022 Hematocrit (Bld) [Volume fraction] 33.2 % 37-47 [facility] Work Phone: Ketones Test strip Ql (U)on 08-05-2022 Ketones Ql (U) 15 mg/dl Negative [facility] Work Phone: Laboratory - Chemistry and C hemistry - challengeon 08-05-2022 ALP [Catalytic activity/Vol] 76 U/L 45-117 [facility] Work Phone: ALT [Catalytic activity/Vol] 22 U/L 13-56 [facility] Work Phone: CO2 [Moles/Vol] 29.0 mmol/L 21.0-32.0 [facility] Work Phone: Globulin (S) [Mass/Vol] 3.8 g/dL 2.2-4.2 [facility] Work Phone: Urea nitrogen/Creatinine [Mass ratio] 18.4 mg/mg 10-20 [facility] Work Phone: Laboratory - Hematology and Cell countson 08-05-2022 Erythrocyte distribution width (RBC) [Entitic vol] 47.3 fL 35.1-43.9 [facility] Work Phone: Erythrocyte distribution width (RBC) [Ratio] 13.3 % 11.6-14.6 [facility] Work Phone: Immature granulocytes/100 WBC (Bld) 0.400 % 0.0-0.9 [facility] Work Phone: Comment on above: IG% - Immature Granu locytes (promyelocytes, myelocytes and metamyelocytes) > 1% indicates that a LEFT SHIFT is Present. MCH (RBC) [Entitic mass] 31.0 pg 27.0-32.0 [facility] Work Phone: Nucleated RBC/100 WBC (Bld) [Ratio] 0 % 0-5 [facility] Work Phone: MCHC Auto (RBC) [Mass/Vol]on 08-05-2022 MCHC (RBC) [Mass/Vol] 32.2 g/dL 32-36 [facility] Work Phone: Mucus LM Ql (Urine sed)on Mucus Ql (Urine sed) 0 SEEN /hpf [facility] Work Phone: Nitrite Test strip Ql (U)on 08-05-2022 Nitrite Ql (U) Negative Negative [facility] Work Phone: No Panel Informationon 08-05 Estimated Creatinine Clearance Calc 25.66 ml/min [facility] Work Phone: Estimated GFR (MDRD) Amer 48 mL/min >60 [facility] Work Phone: Comment on above: GFR Calc Estimated GFR (MDRD) Non-Af Amer 40 mL/min >60 [facility] Work Phone: Comment on above: Non- GFR Calc Platelets bldon 08-05-2022 Platelets (Bld) [#/Vol] 198 10*3/uL 150-450 [facility] Work Phone: Protein Test strip Ql (U)on 08-05-2022 Protein Ql (U) 30 mg/dl Negative [facility] Work Phone: Serum or plasma albumin phill urement (mass/volume)on 08-05-2022 Albumin [Mass/Vol] 3.2 g/dL 3.2-5.0 [facility] Work Phone: Serum or plasma albumin/glob ulin mass ratioon 08-05-2022 Albumin/Globulin [Mass ratio] 0.8 {ratio} 0.9-2.4 [facility] Work Phone: Serum or plasma calcium phill urement (mass/volume)on 08-05-2022 Calcium [Mass/Vol] 9.1 mg/dL 8.5-10.1 [facility] Work Phone: Serum or plasma creatinine m easurement (mass/volume)on 08-05-2022 Creatinine [Mass/Vol] 1.36 mg/dL 0.55-1.02 [facility] Work Phone: Comment on above: The validity of the calculated GFR & GFRAA in patients over 70 years has not been determined. Clinical correlation is essential. Serum or plasma urea nitroge n measurement (mass/volume)on 08-05-2022 Urea nitrogen [Mass/Vol] 25 mg/dL 7-18 [facility] Work Phone: Squamous epithelial cells de tection in urine sediment by light microscopyon 08-05-2022 Epithelial cells.squamous LM Ql (Urine sed) 0 SEEN /hpf 5-10 [facility] Work Phone: Thin prep Papanicolaou smear with manual screeningon 08-05-2022 Thin prep Papanicolaou smear with manual screening 20 U/L 15-37 [facility] Work Phone: Thin prep Papanicolaou smear with manual screening 5 5-15 [facility] Work Phone: Urine blood detectionon - RBC Ql (U) 10 /ul Negative [facility] Work Phone: RBC Ql (U) 0 SEEN /hpf 0-5 [facility] Work Phone: Urine clarityon 08-05-2022 Clarity (U) Clear Clear [facility] Work Phone: Urine color determinationon 08-05-2022 Color (U) Yellow Yellow [facility] Work Phone: Urine glucose detectionon Glucose Ql (U) Normal mg/dl Normal [facility] Work Phone: Urine leukocyte esterase det ection by dipstickon 08-05-2022 Leukocyte esterase Test strip Ql (U) Negative Negative [facility] Work Phone: Urine pHon 08-05-2022 pH (U) 5.0 [pH] 5.0 - 8.0 [facility] Work Phone: Urine sediment bacteria coun t by microscopy (number/high power field)on 08-05-2022 Bacteria LM.HPF (Urine sed) [#/Area] RARE /hpf None Seen [facility] Work Phone: Urine specific gravity measu rementon 08-05-2022 Specific gravity (U) [Rel density] 1.025 1.002-1.030 [facility] Work Phone: Urobilinogen Auto test strip Ql (U)on 08-05-2022 Urobilinogen Ql (U) Normal mg/dl Normal [facility] Work Phone: 36on 08-04-2022 36 {\rtf1\mwpgmi67648\a ns i\zqexfdn3257\ftnbj\uc 1\deff0 \X0A\{\fonttbl{\f0 \fnil \fcharset0 [place];}{\f1 \fnil [place];}{\f2 \fnil SEGOE UI;}}\X0A\{\colortbl ;\acg309\qoywh572\blue 255 ;\red79\green79\blue79 ;\red95\green95\blue95 ;\red0\green0\blue0 ;\red0\atdyl515\blue19 2 ;\red0\green0\blue0 ;}\X0A\{\stylesheet{\f 0\fs24 Normal;}{\cs1 Default Paragraph Font;}{\s2\snext0 heading 1;}{\s3\snext0 heading 2;}{\s4\snext0 heading 3;}{\s5\snext0 heading 4;}{\s6\snext0 heading 5;}{\s7\snext0 heading 6;}}\X0A\{\*\revtbl{Un known;}}\X0A\\ 240\atwcze34596\margl8 64\txlca882\\m yrdg261\pwoucgq478\patricia obxj374\nogrowautofit\ kktamg111\formshade\dn tblnsbdb\fet4\aendnote s\aftnnrlc\pgbrdrhead\ pgbrdrfoot \X0A\\sectd\thnpxl7728 0\ujsdbo97117\guttersx n0\dqgzolyd038\margrsx n576\vzhbqiqv047\margb xje855\\foot iwv202\sbkpage\pgncont \pgndec \X0A\\plain\plain\f0\f s24\pard\ssparaaux0\s0 \sl24\ltrpar\ql\keepn\ plain\f0\fs24{\*\bkmks tart Telephone Encounter by Yuli Schwartz at 08/04/2022 8:58 AM}{\*\bkmkend Telephone Encounter by Yuli Schwartz at 08/04/2022 8:58 AM}\plain\f0\fs20\hich \f0\dbch\f0\loch\f0\fs 20\v \X0A\bmk\par \X0A\\trowd\trgaph0\la strow\trpaddl0\trpaddf l3\trpaddr0\trpaddfr3\ trleft0\dwxh302\ltrrow \X0A\\clvertalb\clbrdr b\brdrs\\brdrcf 2\edfpb43418 \X0A\\pard\intbl\sspar aaux0\s0\sl24\ltrpar\q l\keepn\plain\f0\fs24{ \*\bkmkstart Telephone Encounter by Yuli Schwartz at 08/04/2022 8:58 AM}{\*\bkmkend Telephone Encounter by Yuli Schwartz at 08/04/2022 8:58 AM}\plain\f0\fs20\hich \f0\dbch\f0\loch\f0\cf 2\fs20\ltrch\b \X0A\Telephone Encounter by Yuli Schwartz at 08/04/2022 8:58 AM\plain\f0\fs20\hich\ f0\dbch\f0\loch\f0\fs2 0 \cell \X0A\\intbl\row \X0A\\pard\ssparaaux0\ s0\ql\plain\f0\fs24\pl ain\f0\fs20\hich\f0\db ch\f0\loch\f0\fs20\par d\sect \X0A\\sectd\yafpdj4190 0\nglygg34812\guttersx n0\vgzlebmj265\margrsx n576\twjseeuj917\margb uen876\uaxfidp388\foot rku609\sbknone\pgncont \pgndec \X0A\{\header \X0A\\trowd\trgaph0\la strow\trpaddl0\trpaddf l3\trpaddr0\trpaddfr3\ trleft0\cjuo793\ltrrow \X0A\\clvertalb\clbrdr b\brdrs\\brdrcf 2\gxqcu61405 \X0A\\pard\intbl\sspar aaux0\s0\sl24\ltrpar\q l\keepn\plain\f0\fs24\ plain\f0\fs20\hich\f0\ dbch\f0\loch\f0\cf2\fs 20\ltrch\b Telephone Encounter by Yuli Schwartz at 08/04/2022 8:58 AM (continued)\plain\f0\f s20\hich\f0\dbch\f0\lo ch\f0\fs20 \cell \X0A\\intbl\row \X0A\\plain\f0\fs24}\X 0A\\trowd\trgaph0\trpa ddl0\trpaddfl3\trpaddr 0\trpaddfr3\trleft0\tr keep \X0A\\clvertalt\cellx2 16 \X0A\\clvertalt\cellx3 744 \X0A\\clvertalt\cellx7 272 \X0A\\clvertalt\cellx1 0800 \X0A\\pard\intbl\sspar aaux0\s0\sl24\ql\keepn \plain\f0\fs24\plain\f 0\fs20\hich\f0\dbch\f0 \loch\f0\fs20\cell \X0A\\pard\intbl\sspar aaux0\s0\li80\ri80\sl2 4\ql\keepn\plain\f0\fs 24\plain\f0\fs20\hich\ f0\dbch\f0\loch\f0\cf3 \fs20 Author: \plain\f0\fs20\hich\f0 \dbch\f0\loch\f0\cf4\f s20 Yuli L. Efren\plain\f0\fs20 \hich\f0\dbch\f0\loch\ f0\fs20\cell \X0A\\pard\intbl\sspar aaux0\s0\li80\ri80\sl2 4\ql\keepn\plain\f0\fs 24\plain\f0\fs20\hich\ f0\dbch\f0\loch\f0\cf3 \fs20 Service: \plain\f0\fs20\hich\f0 \dbch\f0\loch\f0\cf4\f s20 \emdash\plain\f0\fs20\ hich\f0\dbch\f0\loch\f 0\fs20\cell \X0A\\pard\intbl\sspar aaux0\s0\li80\ri80\sl2 4\ql\keepn\plain\f0\fs 24\plain\f0\fs20\hich\ f0\dbch\f0\loch\f0\cf3 \fs20 Author Type: \plain\f0\fs20\hich\f0 \dbch\f0\loch\f0\cf4\f s20 \emdash\plain\f0\fs20\ hich\f0\dbch\f0\loch\f 0\fs20\cell \X0A\\intbl\row \X0A\\pard\intbl\sspar aaux0\s0\sl24\ql\keepn \plain\f0\fs24\plain\f 0\fs20\hich\f0\dbch\f0 \loch\f0\fs20\cell \X0A\\pard\intbl\sspar aaux0\s0\li80\ri80\sl2 4\ql\keepn\plain\f0\fs 24\plain\f0\fs20\hich\ f0\dbch\f0\loch\f0\cf3 \fs20 Filed: \plain\f0\fs20\hich\f0 \dbch\f0\loch\f0\cf4\f s20 08/04/2022 9:13 AM\plain\f0\fs20\hich\ f0\dbch\f0\loch\f0\fs2 0\cell \X0A\\pard\intbl\sspar aaux0\s0\li80\ri80\sl2 4\ql\keepn\plain\f0\fs 24\plain\f0\fs20\hich\ f0\dbch\f0\loch\f0\cf3 \fs20 Encounter Date: \plain\f0\fs20\hich\f0 \dbch\f0\loch\f0\cf4\f s20 08/04/2022\plain\f0\fs 20\hich\f0\dbch\f0\loc h\f0\fs20\cell \X0A\\pard\intbl\sspar aaux0\s0\li80\ri80\sl2 4\ql\keepn\plain\f0\fs 24\plain\f0\fs20\hich\ f0\dbch\f0\loch\f0\cf3 \fs20 Status: \plain\f0\fs20\hich\f0 \dbch\f0\loch\f0\cf4\f s20 Signed\plain\f0\fs20\h ich\f0\dbch\f0\loch\f0 \fs20\cell \X0A\\intbl\row \X0A\\trowd\trgaph0\la strow\trpaddl0\trpaddf l3\trpaddr0\trpaddfr3\ trleft0\trkeep \X0A\\clvertalt\cellx2 16 \X0A\\clvertalt\cellx1 0800 \X0A\\pard\intbl\sspar aaux0\s0\sl24\ql\keepn \plain\f0\fs24\plain\f 0\fs20\hich\f0\dbch\f0 \loch\f0\fs20\cell \X0A\\pard\intbl\sspar aaux0\s0\li80\ri80\sl2 4\ql\keepn\plain\f0\fs 24\plain\f0\fs20\hich\ f0\dbch\f0\loch\f0\cf3 \fs20 [employer]ist: \plain\f0\fs20\hich\f0 \dbch\f0\loch\f0\cf4\f s20 Yuli L. Efren\plain\f0\fs20 \hich\f0\dbch\f0\loch\ f0\fs20\cell \X0A\\intbl\row \X0A\\trowd\trgaph0\la strow\trpaddl0\trpaddf l3\trpaddr0\trpaddfr3\ trleft0 \X0A\\clvertalt\cellx2 16 \X0A\\clvertalt\cellx1 0800 \X0A\\pard\intbl\sspar aaux0\s0\sl24\ql\plain \f0\fs24\plain\f0\fs20 \hich\f0\dbch\f0\loch\ f0\fs20\cell \X0A\\pard\intbl\sspar aaux0\s0\li80\ri80\sl2 4\ql\plain\f0\fs24\jing in\f0\fs20\hich\f0\dbc (more content not included)... Normal [facility] CBC (INCLUDES DIFF/PLT)on Basophils (Bld) [#/Vol] 0.021 10*3/uL Normal 0-200 [facility] Comment on above: Performed By: #### [id number], [id number] #### [facility] [address], [address] [place] [id number] Lead Application Architect: Jhon Sheets MD Basophils/100 WBC (Bld) 0.3 % Normal [facility] Comment on above: Performed By: #### 1 075, [id number] #### [facility] [place] [address] Lead Application Architect: Jhon Sheets MD Eosinophils (Bld) [#/Vol] 0.098 10*3/uL Normal 15-500 [facility] Comment on above: Performed By: #### 6 399, #### [facility] [place] [address] Lead Application Architect: Jhon Sheets MD Eosinophils/100 WBC (Bld) 1.4 % Normal [facility] Comment on above: Performed By: #### 6 399, #### [facility] [place] [address] Lead Application Architect: Jhon Sheets MD Erythrocyte distribution width (RBC) [Ratio] 12.9 % Normal 11.0-15.0 [facility] Comment on above: Performed By: #### 6 399, #### [facility] [place] [address] Lead Application Architect: Jhon Sheets MD Hematocrit (Bld) [Volume fraction] 33.8 % Low 35.0-45.0 [facility] Comment on above: Performed By: #### 6 399, #### [facility] [place] [address] Lead Application Architect: Jhon Sheets MD Hemoglobin (Bld) [Mass/Vol] 11.0 g/dL Low 11.7-15.5 [facility] Comment on above: Performed By: #### 6 399, #### [facility] [place] [address] Lead Application Architect: Jhon Sheets MD Lymphocytes (Bld) [#/Vol] 1.918 10*3/uL Normal 850-3900 [facility] Comment on above: Performed By: #### 6 399, #### [facility] [place] [address] Lead Application Architect: Jhon Sheets MD Lymphocytes/100 WBC (Bld) 27.4 % Normal [facility] Comment on above: Performed By: #### 6 399, 81552 #### [facility] [place] [address] Lead Application Architect: Jhon hSeets MD MCH (RBC) [Entitic mass] 30.7 pg Normal 27.0-33.0 [facility] Comment on above: Performed By: #### 6 399, 22571 #### [facility] [place] [address] Lead Application Architect: Jhon Sheets MD MCHC (RBC) [Mass/Vol] 32.5 g/dL Normal 32.0-36.[address] [facility] Comment on above: Performed By: #### 6 399, 83598 #### [facility] [place] [address] Lead Application Architect: Jhon Sheets MD MCV (RBC) [Entitic vol] 94.4 fL Normal 80.0-100.0 [facility] Comment on above: Performed By: #### 6 399, 80055 #### [facility] [place] [address] Lead Application Architect: Jhon Sheets MD Monocytes (Bld) [#/Vol] 0.532 10*3/uL Normal 200-950 [facility] Comment on above: Performed By: #### 6 399, 20817 #### [facility] [place] [address] Lead Application Architect: Jhon Sheets MD Monocytes/100 WBC (Bld) 7.6 % Normal [facility] Comment on above: Performed By: #### 6 399, 31438 #### [facility] [place] [address] Lead Application Architect: Jhon Sheets MD Neutrophils (Bld) [#/Vol] 4.431 10*3/uL Normal 4586-2908 [facility] Comment on above: Performed By: #### 6 399, 58112 #### [facility] of [address] [place] [address] Lead Application Architect: Jhon Sheets MD Neutrophils/100 WBC (Bld) 63.3 % Normal [facility] Comment on above: Performed By: #### 6 399, 73932 #### [facility] of [address], [address] [place] [address] Lead Application Architect: Jhon Sheets MD Platelet mean volume (Bld) [Entitic vol] 11.3 fL Normal 7.5-12.5 [facility] Comment on above: Performed By: #### 6 399, 76491 #### [facility] of [address], [address] [place] [address] Lead Application Architect: Jhon Sheets MD Platelets (Bld) [#/Vol] 215 10*3/uL Normal 140-400 [facility] Comment on above: Performed By: #### 6 399, 11741 #### [facility] of [address], [address] [place] [address] Lead Application Architect: Jhon Sheets MD RBC (Bld) [#/Vol] 3.58 10*6/uL Low 3.80-5.10 [facility] Comment on above: Performed By: #### 6 399, 19494 #### [facility] of [address], [address] [place] [address] Lead Application Architect: Jhon Sheets MD WBC (Bld) [#/Vol] 7.0 10*3/uL Normal 3.8-10.8 [facility] Comment on above: Performed By: #### 6 399, 76502 #### [facility] [place] [address] Lead Application Architect: Jhon Sheets MD COMPREHENSIVE METABOLIC PANE L W/O eGFRon 07-01-2022 Albumin [Mass/Vol] 3.8 g/dL Normal 3.6-5.1 [facility] Comment on above: Order Comment: FASTI NG:NO FASTING: NO Performed By: #### 6 399, 25866 #### [facility] of [address], [address] [place] [address] Lead Application Architect: Jhon Sheets MD Albumin/Globulin [Mass ratio] 1.2 {ratio} Normal 1.0-2.5 [facility] Comment on above: Order Comment: FASTI NG:NO FASTING: NO Performed By: #### 6 399, 67329 #### [facility] [address], [address] [place] [address] Lead Application Architect: Jhon Sheets MD ALP [Catalytic activity/Vol] 70 U/L Normal 37-153 [facility] Comment on above: Order Comment: FASTI NG:NO FASTING: NO Performed By: #### 6 399, 80633 #### [facility] [place] [address] Lead Application Architect: Jhon Sheets MD ALT [Catalytic activity/Vol] 15 U/L Normal 6-29 [facility] Comment on above: Order Comment: FASTI NG:NO FASTING: NO Performed By: #### 6 399, 13788 #### [facility] of [address], [address] [place] [address] Lead Application Architect: Jhon Sheets MD AST [Catalytic activity/Vol] 22 U/L Normal 10-35 [facility] Comment on above: Order Comment: FASTI NG:NO FASTING: NO Performed By: #### 6 399, 07178 #### [facility] [place] [address] Lead Application Architect: Jhon Sheets MD Bilirubin [Mass/Vol] 0.3 mg/dL Normal 0.2-1.2 [facility] Comment on above: Order Comment: FASTI NG:NO FASTING: NO Performed By: #### 6 399, 20604 #### [facility] [place] [address] Lead Application Architect: Jhon Sheets MD Calcium [Mass/Vol] 9.3 mg/dL Normal 8.6-10.4 [facility] Comment on above: Order Comment: FASTI NG:NO FASTING: NO Performed By: #### 6 399, 46041 #### [facility] [place] [address] [place] [address] Lead Application Architect: Jhon Sheets MD Chloride [Moles/Vol] 105 mmol/L Normal 98-110 [facility] Comment on above: Order Comment: FASTI NG:NO FASTING: NO Performed By: #### 6 399, 19754 #### [facility] [address], [address] [place] [address] Lead Application Architect: Jhon Sheets MD CO2 [Moles/Vol] 30 mmol/L Normal 20-32 [facility] Comment on above: Order Comment: FASTI NG:NO FASTING: NO Performed By: #### 6 399, 34963 #### [facility] [address], [address] [place] [address] Lead Application Architect: Jhon Sheets MD Creatinine [Mass/Vol] 1.48 mg/dL High 0.60-0.[address] [facility] Comment on above: Order Comment: FASTI NG:NO FASTING: NO Performed By: #### 6 399, 54169 #### [facility] [address], [address] [place] [address] Lead Application Architect: Jhon Sheets MD Globulin (S) [Mass/Vol] 3.1 g/dL Normal 1.9-3.7 [facility] Comment on above: Order Comment: FASTI NG:NO FASTING: NO Performed By: #### 6 399, 75365 #### [facility] [address], [address] [place] [address] Lead Application Architect: Jhon Sheets MD Glucose [Mass/Vol] 152 mg/dL High 65-139 [facility] Comment on above: Order Comment: FASTI NG:NO FASTING: NO Result Comment: Non-fasting reference interval For someone without known diabetes, a glucose value >125 mg/dL indicates that they may have diabetes and this should be confirmed with a follow-up test. Performed By: #### 6 399, 69772 #### [facility] [address], [address] [place] [address] Lead Application Architect: Jhon Sheets MD Potassium [Moles/Vol] 3.9 mmol/L Normal 3.5-5.[address] [facility] Comment on above: Order Comment: FASTI NG:NO FASTING: NO Performed By: #### 6 399, 64790 #### [facility] [address], [address] [place] [address] Lead Application Architect: Jhon Sheets MD Protein [Mass/Vol] 6.9 g/dL Normal 6.1-8.1 [facility] Comment on above: Order Comment: FASTI NG:NO FASTING: NO Performed By: #### 6 399, 54480 #### [facility] [address], [address] [place] [address] Lead Application Architect: Jhon Sheets MD Sodium [Moles/Vol] 142 mmol/L Normal 135-146 [facility] Comment on above: Order Comment: FASTI NG:NO FASTING: NO Performed By: #### 6 399, 90330 #### [facility] [address], [address] [place] [address] Lead Application Architect: Jhon Sheets MD Urea nitrogen [Mass/Vol] 26 mg/dL High 7-25 [facility] Comment on above: Order Comment: FASTI NG:NO FASTING: NO Performed By: #### 6 399, 17430 #### [facility] [place] [address] Lead Application Architect: Jhon Sheets MD Urea nitrogen/Creatinine [Mass ratio] 18 mg/mg Normal 6-22 [facility] Comment on above: Order Comment: FASTI NG:NO FASTING: NO Performed By: #### 6 399, 46304 #### [facility] [place] [address] Lead Application Architect: Jhon Sheets MD CULTURE, URINE, ROUTINEon CULTURE, URINE, ROUTINE SEE NOTE Normal [facility] Comment on above: Order Comment: FASTI NG:NO FASTING: NO Result Comment: CULTURE, URINE, ROUTINE Micro Number: [id number] Test Status: Final Specimen Source: Urine Specimen Quality: Adequate Result: Mixed genital sobeida isolated. These superficial bacteria are not indicative of a urinary tract infection. No further organism identification is warranted on this specimen. If clinically indicated, recollect clean-catch, mid-stream urine and transfer immediately to Urine Culture Transport Tube. Performed By: #### 3 95 #### [facility] [place] [address] Lead Application Architect: Jhon Sheets MD CBC (INCLUDES DIFF/PLT)on Basophils (Bld) [#/Vol] 0.02 10*3/uL Normal 0-200 [facility] Comment on above: Performed By: #### 6 399, 7600, 29902 #### [facility] [place] [address] Lead Application Architect: Jhon Sheets MD Basophils/100 WBC (Bld) 0.3 % Normal [facility] Comment on above: Performed By: #### 6 399, 7600, 20298 #### [facility] [place] [address] Lead Application Architect: Jhon Sheets MD Eosinophils (Bld) [#/Vol] 0.099 10*3/uL Normal 15-500 [facility] Comment on above: Performed By: #### 6 399, 7600, 55648 #### [facility] [place] [address] Lead Application Architect: Jhon Sheets MD Eosinophils/100 WBC (Bld) 1.5 % Normal [facility] Comment on above: Performed By: #### 6 399, 7600, 65673 #### [facility] [place] [address] Lead Application Architect: Jhon Sheets MD Erythrocyte distribution width (RBC) [Ratio] 14.0 % Normal 11.0-15.0 [facility] Comment on above: Performed By: #### 6 399, 7600, 25400 #### [facility] [place] [address] Lead Application Architect: Jhon Sheets MD Hematocrit (Bld) [Volume fraction] 34.4 % Low 35.0-45.0 [facility] Comment on above: Performed By: #### 6 399, 7600, 25087 #### [facility] [place] [address] Lead Application Architect: Jhon Sheets MD Hemoglobin (Bld) [Mass/Vol] 10.9 g/dL Low 11.7-15.5 [facility] Comment on above: Performed By: #### 6 399, 7600, 87157 #### [facility] [place] [address] Lead Application Architect: Jhon Sheets MD Lymphocytes (Bld) [#/Vol] 1.802 10*3/uL Normal 850-3900 [facility] Comment on above: Performed By: #### 6 399, 7600, 71036 #### [facility] [place] [address] Lead Application Architect: Jhon Sheets MD Lymphocytes/100 WBC (Bld) 27.3 % Normal [facility] Comment on above: Performed By: #### 6 399, 7600, 45870 #### [facility] [place] [address] Lead Application Architect: Jhon Sheets MD MCH (RBC) [Entitic mass] 31.7 pg Normal 27.0-33.0 [facility] Comment on above: Performed By: #### 6 399, 7600, 46238 #### [facility] [place] [address] Lead Application Architect: Jhon Sheets MD MCHC (RBC) [Mass/Vol] 31.7 g/dL Low 32.0-36.[address] [facility] Comment on above: Performed By: #### 6 399, 7600, 18641 #### [facility] [place] [address] Lead Application Architect: Jhon Sheets MD MCV (RBC) [Entitic vol] 100.0 fL Normal 80.0-100.0 [facility] Comment on above: Performed By: #### 6 399, 7600, 17253 #### [facility] of [address], [address] [place] [address] Lead Application Architect: Jhon Sheets MD Monocytes (Bld) [#/Vol] 0.521 10*3/uL Normal 200-950 [facility] Comment on above: Performed By: #### 6 399, 7600, 60412 #### [facility] of [address], [address] [place] [address] Lead Application Architect: Jhon Sheets MD Monocytes/100 WBC (Bld) 7.9 % Normal [facility] Comment on above: Performed By: #### 6 399, 7600, 96858 #### [facility] of [address], [address] [place] [address] Lead Application Architect: Jhon Sheets MD Neutrophils (Bld) [#/Vol] 4.158 10*3/uL Normal 1145-5614 [facility] Comment on above: Performed By: #### 6 399, 7600, 50480 #### [facility] of [address], [address] [place] [address] Lead Application Architect: Jhon Sheets MD Neutrophils/100 WBC (Bld) 63 % Normal [facility] Comment on above: Performed By: #### 6 399, 7600, 74815 #### [facility] of [address], [address] [place] [address] Lead Application Architect: Jhon Sheets MD Platelet mean volume (Bld) [Entitic vol] 9.7 fL Normal 7.5-12.5 [facility] Comment on above: Performed By: #### 6 399, 7600, 71985 #### [facility] of [address], [address] [place] [address] Lead Application Architect: Jhon Sheets MD Platelets (Bld) [#/Vol] 205 10*3/uL Normal 140-400 [facility] Comment on above: Performed By: #### 6 399, 7600, 29820 #### [facility] of [address], [address] [place] [address] Lead Application Architect: Jhon Sheets MD RBC (Bld) [#/Vol] 3.44 10*6/uL Low 3.80-5.10 [facility] Comment on above: Performed By: #### 6 399, 7600, 32855 #### [facility] [place] [address] Lead Application Architect: Jhon Sheets MD WBC (Bld) [#/Vol] 6.6 10*3/uL Normal 3.8-10.8 [facility] Comment on above: Performed By: #### 6 399, 7600, 57345 #### [facility] [place] [address] Lead Application Architect: Jhon Sheets MD [facility] METABOLIC [facility] 03-29-2022 Albumin [Mass/Vol] 3.9 g/dL Normal 3.6-5.1 [facility] Comment on above: Performed By: #### 6 399, 7600, 30394 #### [facility] [place] [address] Lead Application Architect: Jhon Sheets MD Albumin/Globulin [Mass ratio] 1.2 {ratio} Normal 1.0-2.5 [facility] Comment on above: Performed By: #### 6 399, 7600, 51169 #### [facility] [place] [address] Lead Application Architect: Jhon Sheets MD ALP [Catalytic activity/Vol] 72 U/L Normal 37-153 [facility] Comment on above: Performed By: #### 6 399, 7600, 91992 #### [facility] [place] [address] Lead Application Architect: Jhon Sheets MD ALT [Catalytic activity/Vol] 15 U/L Normal 6-29 [facility] Comment on above: Performed By: #### 6 399, 7600, 05402 #### [facility] [place] [address] Lead Application Architect: Jhon Sheets MD AST [Catalytic activity/Vol] 20 U/L Normal 10-35 [facility] Comment on above: Performed By: #### 6 399, 7600, 40869 #### [facility] of [address], [address] [place] [address] Lead Application Architect: Jhon Sheets MD Bilirubin [Mass/Vol] 0.3 mg/dL Normal 0.2-1.2 [facility] Comment on above: Performed By: #### 6 399, 7600, 24159 #### [facility] of [address], [address] [place] [address] Lead Application Architect: Jhon Sheets MD Calcium [Mass/Vol] 8.7 mg/dL Normal 8.6-10.4 [facility] Comment on above: Performed By: #### 6 399, 7600, 76538 #### [facility] [address], [address] [place] [address] Lead Application Architect: Jhon Sheets MD Chloride [Moles/Vol] 104 mmol/L Normal 98-110 [facility] Comment on above: Performed By: #### 6 399, 7600, 42037 #### [facility] [place] [address] Lead Application Architect: Jhon Sheets MD CO2 [Moles/Vol] 29 mmol/L Normal 20-32 [facility] Comment on above: Performed By: #### 6 399, 7600, 32780 #### [facility] [place] [address] Lead Application Architect: Jhon Sheets MD Creatinine [Mass/Vol] 1.64 mg/dL High 0.60-0.[address] [facility] Comment on above: Result Comment: For patients >49 years of age, the reference limit for Creatinine is approximately 13% higher for people identified as -[place]. Performed By: #### 6 399, 7600, 29339 #### [facility] [address], [address] [place] [address] Lead Application Architect: Jhon Sheets MD eGFR NON-AFR. ANGUILLAN 29 mL/min/1.73m2 Low > OR = 60 [facility] Comment on above: Performed By: #### 6 399, 7600, 56027 #### [facility] [place] [address] Lead Application Architect: Jhon Sheets MD GFR/1.73 sq M.predicted among blacks MDRD (S/P/Bld) [Vol rate/Area] 34 mL/min/{1.73_m2} Low > OR = 60 [facility] Comment on above: Performed By: #### 6 399, 7600, 45614 #### [facility] [address], [address] [place] [address] Lead Application Architect: Jhon Sheets MD Globulin (S) [Mass/Vol] 3.3 g/dL Normal 1.9-3.7 [facility] Comment on above: Performed By: #### 6 399, 7600, 17986 #### [facility] of [address], [address] [place] [address] Lead Application Architect: Jhon Sheets MD Glucose [Mass/Vol] 96 mg/dL Normal 65-99 [facility] Comment on above: Result Comment: Fasting reference interval Performed By: #### 6 399, 7600, 25639 #### [facility] [place] [address] Lead Application Architect: Jhon Sheets MD Potassium [Moles/Vol] 3.8 mmol/L Normal 3.5-5.[address] [facility] Comment on above: Performed By: #### 6 399, 7600, 46431 #### [facility] of [address], [address] [place] [address] Lead Application Architect: Jhon Sheets MD Protein [Mass/Vol] 7.2 g/dL Normal 6.1-8.1 [facility] Comment on above: Performed By: #### 6 399, 7600, 50316 #### [facility] of [address], [address] [place] [address] Lead Application Architect: Jhon Sheets MD Sodium [Moles/Vol] 142 mmol/L Normal 135-146 [facility] Comment on above: Performed By: #### 6 399, 7600, 00572 #### [facility] [place] [address] Lead Application Architect: Jhon Sheets MD Urea nitrogen [Mass/Vol] 28 mg/dL High 7-25 [facility] Comment on above: Performed By: #### 6 399, 7600, 46800 #### [facility] [address], [address] [place] [address] Lead Application Architect: Jhon Sheets MD Urea nitrogen/Creatinine [Mass ratio] 17 mg/mg Normal 6-22 [facility] Comment on above: Performed By: #### 6 399, 7600, 18266 #### [facility] [place] [address] Lead Application Architect: Jhon Sheets MD LIPID PANEL, [facility] 03-06 Cholesterol [Mass/Vol] 204 mg/dL High <200 [facility] Comment on above: Order Comment: FASTI NG:YES FASTING: YES Performed By: #### 6 399, 7600, 99092 #### [facility] [place] [address] Lead Application Architect: Jhon Sheets MD Cholesterol in HDL [Mass/Vol] 49 mg/dL Low > OR = 50 [facility] Comment on above: Order Comment: FASTI NG:YES FASTING: YES Performed By: #### 6 399, 7600, 77734 #### [facility] [place] [address] Lead Application Architect: Jhon Sheets MD Cholesterol in LDL [Mass/Vol] 124 mg/dL High [facility] Comment on above: Order Comment: FASTI NG:YES FASTING: YES Result Comment: Refe rence range: <100 Desirable range <100 mg/dL for primary prevention; <70 mg/dL for patients with CHD or diabetic patients with > or = 2 CHD risk factors. LDL-C is now calculated using the Jonny-Bassett calculation, which is a validated novel method providing better accuracy than the Friedewald equation in the estimation of LDL-C. Jonny SS et al. WILMAN. 2013;310(19): 4486-0894 (http://education.[employer]andforce/faq/DDX763) Performed By: #### 6 399, 7600, 99880 #### [facility] [address], [address] [place] [address] Lead Application Architect: Jhon Sheets MD Cholesterol.total/Sary sterol in HDL [Mass ratio] 4.2 {ratio} Normal <5.0 [facility] Comment on above: Order Comment: FASTI NG:YES FASTING: YES Performed By: #### 6 399, 7600, 57014 #### [facility] [address], [address] [place] [address] Lead Application Architect: Jhon Sheets MD NON HDL CHOLESTEROL 155 mg/dL (calc) High <130 [facility] Comment on above: Order Comment: FASTI NG:YES FASTING: YES Result Comment: For patients with diabetes plus 1 major ASCVD risk factor, treating to a non-HDL-C goal of <100 mg/dL (LDL-C of <70 mg/dL) is considered a therapeutic option. Performed By: #### 6 399, 7600, 67357 #### [facility] [address], [address] [place] [address] Lead Application Architect: Jhon Sheets MD Triglyceride [Mass/Vol] 194 mg/dL High <150 [facility] Comment on above: Order Comment: FASTI NG:YES FASTING: YES Performed By: #### 6 399, 7600, 08629 #### [facility] [address], [address] [place] [address] Lead Application Architect: Jhon Sheets MD Comprehensive metabolic 2000 panelon 03-14-2022 Albumin [Mass/Vol] 4.1 g/dL 3.9 - 4.9 g/dL [facility] ALP [Catalytic activity/Vol] 82 U/L 34 - 123 U/L [facility] ALT [Catalytic activity/Vol] 19 U/L 7 - 38 U/L [facility] Anion gap [Moles/Vol] 13 mmol/L 9 - 18 mmol/L [facility] AST [Catalytic activity/Vol] 25 U/L 13 - 35 U/L [facility] Bilirubin [Mass/Vol] 0.2 mg/dL 0.2 - 1 .3 mg/dL [facility] Calcium [Mass/Vol] 9.2 mg/dL 8.5 - 10. 2 mg/dL [facility] Chloride [Moles/Vol] 105 mmol/L 97 - 10 5 mmol/L [facility] CO2 [Moles/Vol] 25 mmol/L 22 - 30 mmol/L [facility] Creatinine [Mass/Vol] 1.59 mg/dL High 0.58 - 0.96 mg/dL [facility] Estimated Glomerular Filtration Rate 33 mL/min/1.73m Low >=60 mL/min/1.73m [facility] Glucose [Mass/Vol] 96 mg/dL 74 - 99 mg/dL [facility] Potassium [Moles/Vol] 4.3 mmol/L 3.7 - 5.1 mmol/L [facility] Protein [Mass/Vol] 7.5 g/dL 6.3 - 8.0 g/dL [facility] Sodium [Moles/Vol] 143 mmol/L 136 - 144 mmol/L [facility] Urea nitrogen [Mass/Vol] 29 mg/dL High 7 - 21 mg/dL [facility] MARGOTH SCREENINGon 02-20-2022 [facility] PVR Reporton 07-10-2021 PVR Report Patient: JACKELYN BRADSHAW Age: 80 years Sex: Female : 1940 Associated Diagnoses: None Author: JAYSON LI, WILMER Exam Indication: Chest pain Date of Exam: 07/09/2021 Referring Physician: David Stout Clinical History: 80-year-old lady with history of hypertension prior AV dash ablation now comes with new onset chest pain. She is known to have normal coronary arteries 10 years ago. Procedure: The supervising naval aircrewman mechanical, Leann Tyler, reviewed the patient's baseline ECG prior to starting Lexiscan protocol. Pharmacologic stress testing was performed by injecting the patient through IV with 0.4mg/5mL regadenoson (Lexiscan) bolus dose followed by a 5 mL saline flush. After an 8-12 second delay, the patient was given the radioactive tracer followed again by a 5 mL saline flush. The patient was not walked on the treadmill due to arthritis. The patient was monitored for several minutes. Patient's heart rate and blood pressure response to exercise was adequate. The resting ECG shows normal sinus rhythm and post stress EKG shows no ST segment changes and no ectopy The patient was given 9.5 mCi of Tc-99m sestamibi IV for evaluation of myocardial function and perfusion rest. Approximately 30 minutes after injection, the patient underwent SPECT imaging. The stress images were acquired approximately 30 minutes after injection of 35.0 mCi of Tc-99m sestamibi IV. The stress SPECT study was also gated to evaluate regional wall motion and calculate the left ventricular ejection fraction. The data was reconstructed in short, horizontal long and vertical long axis views, and tomographic slices were generated. Findings: The overall technical quality of the images is good. Stress images demonstrated fairly uniform uptake of activity all over the myocardium. The rest images demonstrated similar distribution of activity. The stress gated images demonstrated normal size and function of the left ventricle and the ejection fraction is 74% with no wall motion abnormalities. Impression: 1. No evidence of ischemia or infarction 2. Excellent left ventricular systolic function 3. Ejection fraction is 74% with no wall motion abnormalities Copy of Final Report Sent to: [] Date of Interpretation: 07/09/2021 Date of Final Report: 07/09/2021 Normal [facility] Stress Test Reporton 10-05-2 021 Stress Test Report Patient: JACKELYN BRADSHAW Age: 80 years Sex: Female : 1940 Associated Diagnoses: None Author: ELLIE TYLER MD Date of Exam: 07/09/2021 Referring Physician: Dr. Leeann Stout Reason for Stress Test: Chest pain Findings: 1. Baseline ECG revealed normal sinus rhythm with first-degree AV block at resting heart rate of [address] segment changes. 2. Resting blood pressure was 120/80 mmHg remained stable throughout the test. 3. Lexiscan injected, patient monitored closely and Cardiolite injected. 4. Patient complained of being nauseated during the Lexiscan injection, symptoms resolved after the test. 5. The 12 ECG taken during the test did not reveal any ST segment changes. Conclusion: 1. No ST segment changes seen during the Lexiscan injection. 2. The neck report of follow separately. Electronically signed by Dr. Leann Tyler. Copy of Final Report Sent to: [] Date of Interpretation: 07/09/2021 Date of Final Report: 07/09/2021 Normal [facility] Ambulatory Clinical Summaryo n 07-04-2021 Ambulatory Clinical Summary JACKELYN BRADSHAW :1940 Visit Date:06/27/2021 Ambulatory Visit Instructions Your Diagnosis Atypical chest pain HTN (hypertension) Your Care Team Attending Physician - JAYSON LI, WILMER Discharge Vitals Systolic Blood Pressure: 126 mmHg (06/27/21 19:18:00) Diastolic Blood Pressure: 76 mmHg (06/27/21 19:18:00) Temperature Tympanic (F): 98.3 degF (06/27/21 08:30:00) Apical Heart Rate: 65 bpm (06/27/21 08:30:00) Height/Length Measured: 157 cm (06/27/21 08:30:00) Weight Measured: 83 kg (06/27/21 08:30:00) Body Mass Index Measured: 33.67 kg/m2 (06/27/21 08:30:00) Weight Measured - lbs2: 183 lb (06/27/21 08:30:00) Height/Length Measured - in2: 62 in (06/27/21 08:30:00) Body Mass Index Measured English2: 33.47 kg/m2 (06/27/21 08:30:00) BSA: 1.9 m2 (06/27/21 08:30:00) Ht/Wt Measurement Refused by Patient?2: No (06/27/21 08:30:00) What to do next Scheduled Follow-Up Appointments Appointment Type Reason for visit Day With Date Time Where [facility] Nuclear Stress Test DR STOUT CHEST PAIN NON WALKING Thursday Nuclear July 09, 2021 11:30 am EDT CARD Med [place]/ Medications What When Instructions Unchanged citalopram (citalopram 20 mg oral tablet) Unchanged hydrochlorothiazide = HydroDIURIL (hydroCHLOROthiazide 25 mg oral tablet) Unchanged lisinopril (lisinopril 20 mg oral tablet) Unchanged OLANZapine (OLANZapine 5 mg oral tablet) Unchanged oxybutynin (oxybutynin 5 mg oral tablet = Ditropan) Unchanged sucralfate (sucralfate 1 g oral tablet) Unchanged traMADol (traMADol 50 mg oral tablet) Allergies No active allergies Problems Ongoing - Any problem that you are currently receiving treatment for. Atypical chest pain HTN (hypertension) Common Emergency Awareness Tips IS IT A STROKE? Act FAST and Check for these signs: FACE Does the face look uneven? ARM Does one arm drift down? SPEECH Does their speech sound strange? TIME Call at any sign of stroke Heart Attack Signs Chest discomfort: Most heart attacks involve discomfort in the center of the chest and lasts more than a few minutes, or goes away and comes back. It can feel like uncomfortable pressure, squeezing, fullness or pain. Discomfort in upper body: Symptoms can include pain or discomfort in one or both arms, back, neck, jaw or stomach. Shortness of breath: With or without discomfort. Other signs: Breaking out in a cold sweat, nausea, or lightheaded. Remember, MINUTES DO MATTER. If you experience any of these heart attack warning signs, call to get immediate medical attention! Normal [facility] Amb Office-Progress Notes-Pr ovideron 06-27-2021 Amb Office-Progress Notes-Provider Chief Complaint FOLLOW UP [facility] History of Present Illness Mrs. Bradshaw is a 80-year-old lady with history of hypertension Ca of the breast, status post ablation for AVNRT, normal coronary arteries ten years ago comes here after long time for cardiac evaluation and follow-up after recent visit to the emergency room with cough and chest pain. Her work-up was negative. It was felt that she probably had bronchitis. She is not a diabetic and not a smoker. She gets the pain mostly with exertion and last for about 5 to 10 minutes and occasionally goes to the left side of the neck. The story is suggestive of a new onset angina though it has some atypical features. No prior myocardial infarction stroke or peripheral vascular disease. She denies any orthopnea dyspnea or edema of the legs. EKG looks normal and her enzymes are negative. She sees Dr. Graham for her serial Ca of the breast Review of Systems CARDIAC: No chest pain or dyspnea or orthopnea or palpitations RESPIRATROY: No dyspnea or wheeze or hemoptysis GI: No epigastric pain or right upper quadrant pain: No nausea or vomiting EXTREMITIES: No edema of legs and no tingling or numbness Physical Exam Vitals & Measurements Systolic Blood Pressure: 126 mmHg (06/27/21 19:18:00) Diastolic Blood Pressure: 76 mmHg (06/27/21 19:18:00) Temperature Tympanic (F): 98.3 degF (06/27/21 08:30:00) Apical Heart Rate: 65 bpm (06/27/21:30:00) Height/Length Measured: 157 cm (06/27/21 08:30:00) Weight Measured: 83 kg (06/27/21 08:30:00) Body Mass Index Measured: 33.67 kg/m2 (06/27/21:30:00) Weight Measured - lbs2: 183 lb (06/27/21 08:30:00) Height/Length Measured - in2: 62 in (06/27/21 08:30:00) Body Mass Index Measured English2: 33.47 kg/m2 (06/27/21:30:00) BSA: 1.9 m2 (06/27/21 08:30:00) Ht/Wt Measurement Refused by Patient?2: No (06/27/21 08:30:00) Depression Screening Scores Initial Depression Screen Score: 0 (06/27/21 08:30:00) Fall Risk Assessment Is the patient ambulatory (mobile): Yes (06/27/21 08:30:00) Have you had a fall within the past: No (06/27/21 08:30:00) Have you had 2 or more falls in the past: No (06/27/21 08:30:00) NECK: JVP is not elevated: Good carotid pulses and no bruit CVS; Normal heart sounds. No murmur and no gallop. No rub LUNGS: No rhonchi and no wheeze: Clear breath sounds ADOMEN: Benign EXTREMITIES: Good distal pulses. No edema of legs Lab Results Last Months Labs No qualifying data available. Assessment/Plan 1. Atypical chest pain R07.89 2. 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 Problem List/Past Medical History Ongoing Atypical chest pain HTN (hypertension) Historical No qualifying data Procedure/Surgical History No qualifying data available. Medications citalopram 20 mg oral tablet hydroCHLOROthiazide 25 mg oral tablet lisinopril 20 mg oral tablet OLANZapine 5 mg oral tablet oxybutynin 5 mg oral tablet = Ditropan sucralfate 1 g oral tablet traMADol 50 mg oral tablet Allergies No active allergies Normal [facility] COVID-19 virus antigen assay SARS-CoV-2 (COVID-19) Ag IA.rapid Ql (Resp) [facility] Work Phone: Vital Signs Date Time Vital Sign Value Performing Clinician Facility 06-15-2025 09:17-0400 Body mass index (BMI) [Ratio] 26.24 kg/m2 Leonid Graham MD Work Phone: [facility] 06-15-2025 09:17-0400 Body temperature 97.9 [degF] Leonid Graham MD Work Phone: [facility] 06-15-2025 09:17-0400 Body weight 67.2 kg Leonid Graham MD Work Phone: [facility] 06-15-2025 09:17-0400 Diastolic blood pressure 80 mm[Hg] Leonid Graham MD Work Phone: [facility] 06-15-2025 09:17-0400 Heart rate 60 /min Leonid Graham MD Work Phone: [facility] 06-15-2025 09:17-0400 Respiratory rate 16 /min Leonid Graham MD Work Phone: [facility] 06-15-2025 09:17-0400 SaO2% (BldA) [Mass fraction] 98 % Leonid Graham MD Work Phone: [facility] 06-15-2025 09:17-0400 Systolic blood pressure 174 mm[Hg] Leonid Graham MD Work Phone: [facility] 03-17-2025 08:09-0400 Body temperature 96.4 [degF] Injection Work Phone: [facility] 03-17-2025 08:09-0400 Diastolic blood pressure 66 mm[Hg] Injection Work Phone: [facility] 03-17-2025 08:09-0400 Heart rate 53 /min Injection Work Phone: [facility] 03-17-2025 08:09-0400 Respiratory rate 12 /min Injection Work Phone: [facility] 03-17-2025 08:09-0400 SaO2% (BldA) [Mass fraction] 99 % Injection Work Phone: [facility] 03-17-2025 08:09-0400 Systolic blood pressure 154 mm[Hg] Injection Work Phone: [facility] 01-20-2025 08:43-0400 Body mass index (BMI) [Ratio] 27.88 kg/m2 Leonid Graham MD Work Phone: [facility] 01-20-2025 08:43-0400 Body temperature 97.9 [degF] Leonid Graham MD Work Phone: [facility] 01-20-2025 08:43-0400 Body weight 71.4 kg Leonid Graham MD Work Phone: [facility] 01-20-2025 08:43-0400 Diastolic blood pressure 70 mm[Hg] Leonid Graham MD Work Phone: [facility] 01-20-2025 08:43-0400 Heart rate 62 /min Leonid Graham MD Work Phone: [facility] 01-20-2025 08:43-0400 Respiratory rate 12 /min Leonid Graham MD Work Phone: [facility] 01-20-2025 08:43-0400 SaO2% (BldA) [Mass fraction] 98 % Leonid Graham MD Work Phone: [facility] 01-20-2025 08:43-0400 Systolic blood pressure 168 mm[Hg] Leonid Graham MD Work Phone: [facility] 11-25-2024 08:08-0500 Body temperature 97.9 [degF] Injection Work Phone: [facility] 11-25-2024 08:08-0500 Diastolic blood pressure 60 mm[Hg] Injection Work Phone: [facility] 11-25-2024 08:08-0500 Heart rate 62 /min Injection Work Phone: [facility] 11-25-2024 08:08-0500 Respiratory rate 12 /min Injection Work Phone: [facility] 11-25-2024 08:08-0500 SaO2% (BldA) [Mass fraction] 99 % Injection Work Phone: [facility] 11-25-2024 08:08-0500 Systolic blood pressure 156 mm[Hg] Injection Work Phone: [facility] 10-24-2024 08:48-0500 Body mass index (BMI) [Ratio] 28.43 kg/m2 Leonid Graham MD Work Phone: [facility] 10-24-2024 08:48-0500 Body temperature 97.9 [degF] Leonid Graham MD Work Phone: [facility] 10-24-2024 08:48-0500 Body weight 72.8 kg Leonid Graham MD Work Phone: [facility] Comment on above: Sivan Khan LPN 10-24-2024 08:48-0500 Diastolic blood pressure 76 mm[Hg] Leonid Graham MD Work Phone: [facility] 10-24-2024 08:48-0500 Heart rate 61 /min Leonid Graham MD Work Phone: [facility] 10-24-2024 08:48-0500 Respiratory rate 10 /min Leonid Graham MD Work Phone: [facility] 10-24-2024 08:48-0500 SaO2% (BldA) [Mass fraction] 96 % Leonid Graham MD Work Phone: [facility] 10-24-2024 08:48-0500 Systolic blood pressure 148 mm[Hg] Leonid Graham MD Work Phone: [facility] 06-22-2024 09:56-0400 Body mass index (BMI) [Ratio] 29.95 kg/m2 Janett Serafin EARLY YEARS TEACHER.DRYING ROOM OPERATOR Work Phone: [facility] 06-22-2024 09:56-0400 Body temperature 97.2 [degF] Janett Serafin EARLY YEARS TEACHER.DRYING ROOM OPERATOR Work Phone: [facility] 06-22-2024 09:56-0400 Body weight 76.7 kg Janett Serafin EARLY YEARS TEACHER.DRYING ROOM OPERATOR Work Phone: [facility] 06-22-2024 09:56-0400 Diastolic blood pressure 80 mm[Hg] Janett Serafin EARLY YEARS TEACHER.DRYING ROOM OPERATOR Work Phone: [facility] 06-22-2024 09:56-0400 Heart rate 65 /min Janett Serafin EARLY YEARS TEACHER.DRYING ROOM OPERATOR Work Phone: [facility] 06-22-2024 09:56-0400 Respiratory rate 10 /min Janett Serafin EARLY YEARS TEACHER.DRYING ROOM OPERATOR Work Phone: [facility] 06-22-2024 09:56-0400 SaO2% (BldA) [Mass fraction] 99 % Janett Serafin EARLY YEARS TEACHER.DRYING ROOM OPERATOR Work Phone: [facility] 06-22-2024 09:56-0400 Systolic blood pressure 132 mm[Hg] Janett Serafin EARLY YEARS TEACHER.DRYING ROOM OPERATOR Work Phone: [facility] 04-01-2024 10:23-0400 Body temperature 97.59 [degF] Injection Mc Work Phone: [facility] 04-01-2024 10:23-0400 Diastolic blood pressure 66 mm[Hg] Injection Mc Work Phone: [facility] 04-01-2024 10:23-0400 Heart rate 63 /min Injection Mc Work Phone: [facility] 04-01-2024 10:23-0400 Respiratory rate 18 /min Injection Mc Work Phone: [facility] 04-01-2024 10:23-0400 SaO2% (BldA) [Mass fraction] 99 % Injection Mc Work Phone: [facility] 04-01-2024 10:23-0400 Systolic blood pressure 144 mm[Hg] Injection Mc Work Phone: [facility] 03-22-2024 12:42-0400 Body temperature 97.5 [degF] Delicia Lazo PT Work Phone: [facility] 03-22-2024 12:42-0400 Diastolic blood pressure 60 mm[Hg] Delicia Lazo PT Work Phone: [facility] 03-22-2024 12:42-0400 Heart rate 61 /min Delicia Lazo PT Work Phone: [facility] 03-22-2024 12:42-0400 Respiratory rate 18 /min Delicia Lazo PT Work Phone: [facility] 03-22-2024 12:42-0400 SaO2% (BldA) [Mass fraction] 99 % Delicia Lazo PT Work Phone: [facility] 03-22-2024 12:42-0400 Systolic blood pressure 152 mm[Hg] Delicia Lazo PT Work Phone: [facility] 03-17-2024 17:52-0400 Heart rate 75 /min Alok Sabillon [employer]CHE[employer] MUSICIAN Work Phone: [facility] 03-17-2024 17:52-0400 Respiratory rate 19 /min Alok Sabillon [employer]CHE[employer] MUSICIAN Work Phone: [facility] 03-17-2024 17:52-0400 SaO2% (BldA) [Mass fraction] 95 % Alok Blackert [employer]CHE[employer] MUSICIAN Work Phone: [facility] 03-17-2024 15:36-0400 Body temperature 97.7 [degF] Alok Blackert [employer]CHE[employer] MUSICIAN Work Phone: [facility] 03-17-2024 15:36-0400 Diastolic blood pressure 70 mm[Hg] Alok Blackert [employer]CHE[employer] MUSICIAN Work Phone: [facility] 03-17-2024 15:36-0400 Systolic blood pressure 136 mm[Hg] Alok Blackert [employer]CHE[employer] MUSICIAN Work Phone: [facility] 03-17-2024 11:35-0400 Heart rate 62 /min Lori Brandy OT/L Work Phone: [facility] 03-17-2024 11:35-0400 SaO2% (BldA) [Mass fraction] 92 % Lori Brandy OT/L Work Phone: [facility] 03-17-2024 11:11-0400 Body temperature 97.7 [degF] Lori Brandy OT/L Work Phone: [facility] 03-17-2024 11:11-0400 Diastolic blood pressure 70 mm[Hg] Lori Brandy OT/L Work Phone: [facility] 03-17-2024 11:11-0400 Respiratory rate 16 /min Lori Brandy OT/L Work Phone: [facility] 03-17-2024 11:11-0400 Systolic blood pressure 138 mm[Hg] Lori Brandy OT/L Work Phone: [facility] 03-14-2024 10:38-0400 Body temperature 97.39 [degF] Alok Ariasert [employer]CHE[employer]ICIAN Work Phone: [facility] 03-14-2024 10:38-0400 Diastolic blood pressure 82 mm[Hg] Alok Blackert [employer]CHE[employer] MUSICIAN Work Phone: [facility] 03-14-2024 10:38-0400 Heart rate 64 /min Alok Blackert [employer]CHE[employer] MUSICIAN Work Phone: [facility] 03-14-2024 10:38-0400 Respiratory rate 17 /min Alok Sabillon [employer]ICIAN Work Phone: [facility] 03-14-2024 10:38-0400 SaO2% (BldA) [Mass fraction] 99 % Alok Sabillon [employer]CHE[employer] MUSICIAN Work Phone: [facility] 03-14-2024 10:38-0400 Systolic blood pressure 126 mm[Hg] Alok Sabillon [employer]CHE[employer] MUSICIAN Work Phone: [facility] 03-10-2024 10:15-0400 Diastolic blood pressure 82 mm[Hg] Piedad Veto [employer]ICIAN Work Phone: [facility] 03-10-2024 10:15-0400 Heart rate 67 /min Piedad Veto [employer]ICIAN Work Phone: [facility] 03-10-2024 10:15-0400 SaO2% (BldA) [Mass fraction] 99 % Piedad Veto [employer]CHE[employer]ICIAN Work Phone: [facility] 03-10-2024 10:15-0400 Systolic blood pressure 140 mm[Hg] Piedad Veto [employer]CHE[employer]ICIAN Work Phone: [facility] 03-10-2024 10:01-0400 Body temperature 98.01 [degF] Piedad Veto [employer]ICIAN Work Phone: [facility] 03-10-2024 10:01-0400 Respiratory rate 18 /min Piedad Veto [employer]ICIAN Work Phone: [facility] 03-07-2024 10:24-0400 Diastolic blood pressure 80 mm[Hg] Lori Brandy OT/L Work Phone: [facility] 03-07-2024 10:24-0400 Respiratory rate 18 /min Lori Brandy OT/L Work Phone: [facility] 03-07-2024 10:24-0400 Systolic blood pressure 132 mm[Hg] Lori Brandy OT/L Work Phone: [facility] 03-07-2024 09:36-0400 Heart rate 88 /min Piedad Veto [employer]CHE[employer]ICIAN Work Phone: [facility] Comment on above: after walking 03-07-2024 09:36-0400 SaO2% (BldA) [Mass fraction] 99 % Piedad Veto [employer]CHE[employer]ICIAN Work Phone: [facility] 03-07-2024 09:06-0400 Body temperature 97.9 [degF] Piedad Veto [employer]CHE[employer]ICIAN Work Phone: [facility] 03-07-2024 09:06-0400 Diastolic blood pressure 78 mm[Hg] Piedad Veto [employer]ICIAN Work Phone: [facility] 03-07-2024 09:06-0400 Respiratory rate 18 /min Piedad Veto [employer]ICIAN Work Phone: [facility] 03-07-2024 09:06-0400 Systolic blood pressure 128 mm[Hg] Piedad Veto [employer] Work Phone: [facility] 03-04-2024 11:30-0400 Body mass index (BMI) [Ratio] 30.62 kg/m2 Leonid Graham MD Work Phone: [facility] 03-04-2024 11:30-0400 Body temperature 97.2 [degF] Leonid Graham MD Work Phone: [facility] 03-04-2024 11:30-0400 Body weight 78.4 kg Leonid Graham MD Work Phone: [facility] 03-04-2024 11:30-0400 Diastolic blood pressure 55 mm[Hg] Leonid Graham MD Work Phone: [facility] 03-04-2024 11:30-0400 Heart rate 63 /min Leonid Graham MD Work Phone: [facility] 03-04-2024 11:30-0400 Respiratory rate 16 /min Leonid Graham MD Work Phone: [facility] 03-04-2024 11:30-0400 SaO2% (BldA) [Mass fraction] 99 % Leonid Graham MD Work Phone: [facility] 03-04-2024 11:30-0400 Systolic blood pressure 148 mm[Hg] Leonid Graham MD Work Phone: [facility] 03-03-2024 10:35-0400 Body temperature 98.71 [degF] Piedad Veto [employer]ICIAN Work Phone: [facility] 03-03-2024 10:35-0400 Diastolic blood pressure 82 mm[Hg] Piedad Veto [employer]ICIAN Work Phone: [facility] 03-03-2024 10:35-0400 Heart rate 77 /min Piedad Veto [employer]CHE[employer] MUSICIAN Work Phone: [facility] 03-03-2024 10:35-0400 SaO2% (BldA) [Mass fraction] 99 % Piedad Veto [employer]CHE[employer]ICIAN Work Phone: [facility] 03-03-2024 10:35-0400 Systolic blood pressure 140 mm[Hg] Piedad Veto [employer]ICIAN Work Phone: [facility] 03-02-2024 11:31-0400 Body temperature 97.59 [degF] Blanca Most RN Work Phone: [facility] 03-02-2024 11:31-0400 Diastolic blood pressure 74 mm[Hg] Blanca Most RN Work Phone: [facility] 03-02-2024 11:31-0400 Heart rate 68 /min Blanca Most RN Work Phone: [facility] 03-02-2024 11:31-0400 Respiratory rate 1 /min Blanca Most RN Work Phone: [facility] 03-02-2024 11:31-0400 SaO2% (BldA) [Mass fraction] 99 % Blanca Most RN Work Phone: [facility] 03-02-2024 11:31-0400 Systolic blood pressure 132 mm[Hg] Blanca Most RN Work Phone: [facility] 03-01-2024 12:12-0400 Body temperature 97.59 [degF] Lori Brandy OT/L Work Phone: [facility] 03-01-2024 12:12-0400 Diastolic blood pressure 70 mm[Hg] Lori Brandy OT/L Work Phone: [facility] 03-01-2024 12:12-0400 Heart rate 65 /min Lori Brandy OT/L Work Phone: [facility] 03-01-2024 12:12-0400 Respiratory rate 18 /min Lori Brandy OT/L Work Phone: [facility] 03-01-2024 12:12-0400 SaO2% (BldA) [Mass fraction] 99 % Lori Brandy OT/L Work Phone: [facility] 03-01-2024 12:12-0400 Systolic blood pressure 118 mm[Hg] Lori Brandy OT/L Work Phone: [facility] 03-01-2024 11:10-0400 Body temperature 98.4 [degF] Piedad Veto [employer]ICIAN Work Phone: [facility] 03-01-2024 11:10-0400 Diastolic blood pressure 82 mm[Hg] Piedad Veto [employer]ICIAN Work Phone: [facility] 03-01-2024 11:10-0400 Heart rate 76 /min Piedad Veto [employer]IAN Work Phone: [facility] 03-01-2024 11:10-0400 SaO2% (BldA) [Mass fraction] 98 % Piedad Veto [employer]ICIAN Work Phone: [facility] 03-01-2024 11:10-0400 Systolic blood pressure 140 mm[Hg] Piedad Veto [employer]ICIAN Work Phone: [facility] 02-26-2024 13:40-0400 Body temperature 97.9 [degF] Delicia Lazo PT Work Phone: [facility] 02-26-2024 13:40-0400 Diastolic blood pressure 70 mm[Hg] Delicia Lazo PT Work Phone: [facility] 02-26-2024 13:40-0400 Heart rate 62 /min Delicia Lazo PT Work Phone: [facility] 02-26-2024 13:40-0400 Respiratory rate 18 /min Delicia Violet PT Work Phone: [facility] 02-26-2024 13:40-0400 SaO2% (BldA) [Mass fraction] 98 % Delicia RaulflorentinoHolland PT Work Phone: [facility] 02-26-2024 13:40-0400 Systolic blood pressure 124 mm[Hg] Delicia Lazo PT Work Phone: [facility] 02-25-2024 16:28-0400 Body temperature 98.01 [degF] Brianne Dominique RN Work Phone: [facility] 02-25-2024 16:28-0400 Diastolic blood pressure 78 mm[Hg] Brianne Dominique RN Work Phone: [facility] 02-25-2024 16:28-0400 Heart rate 73 /min Brianne Dominique RN Work Phone: [facility] 02-25-2024 16:28-0400 Respiratory rate 16 /min Brianne Dominique RN Work Phone: [facility] 02-25-2024 16:28-0400 SaO2% (BldA) [Mass fraction] 98 % Brianne Dominique RN Work Phone: [facility] 02-25-2024 16:28-0400 Systolic blood pressure 138 mm[Hg] Brianne Dominique RN Work Phone: [facility] [facility] 02-25-2024 13:09-0400 Body temperature 97.81 [degF] Lori Brandy OT/L Work Phone: [facility] 02-25-2024 13:09-0400 Diastolic blood pressure 72 mm[Hg] Lori Brandy OT/L Work Phone: [facility] 02-25-2024 13:09-0400 Heart rate 62 /min Lori Brandy OT/L Work Phone: [facility] 02-25-2024 13:09-0400 Respiratory rate 18 /min Lori Brandy OT/L Work Phone: [facility] 02-25-2024 13:09-0400 SaO2% (BldA) [Mass fraction] 99 % Lori Brandy OT/L Work Phone: [facility] 02-25-2024 13:09-0400 Systolic blood pressure 130 mm[Hg] Lori Brandy OT/L Work Phone: [facility] 02-23-2024 13:43-0400 Diastolic blood pressure 70 mm[Hg] Bianca Katia PT Work Phone: [facility] 02-23-2024 13:43-0400 Heart rate 72 /min Bianca Katia PT Work Phone: [facility] 02-23-2024 13:43-0400 SaO2% (BldA) [Mass fraction] 99 % Bianca Katia PT Work Phone: [facility] 02-23-2024 13:43-0400 Systolic blood pressure 134 mm[Hg] Bianca Katia PT Work Phone: [facility] 02-23-2024 12:45-0400 Body mass index (BMI) [Ratio] 24.37 kg/m2 Bianca Katia PT Work Phone: [facility] 02-23-2024 12:45-0400 Body temperature 98.2 [degF] Bianca Katia PT Work Phone: [facility] 02-23-2024 12:45-0400 Body weight 62.4 kg Bianca Katia PT Work Phone: [facility] 02-23-2024 12:45-0400 Respiratory rate 16 /min Bianca Katia PT Work Phone: [facility] 01-17-2024 11:44-0400 Body temperature 97.1 [degF] Dr. Yoav Chakraborty Work Phone: [facility] 01-17-2024 11:44-0400 Diastolic blood pressure 82 mm[Hg] Dr. Yoav Chakraborty Work Phone: [facility] 01-17-2024 11:44-0400 Heart rate 73 /min Dr. Yoav Chakraborty Work Phone: [facility] 01-17-2024 11:44-0400 Respiratory rate 16 /min Dr. Yoav Chakraborty Work Phone: [facility] 01-17-2024 11:44-0400 SaO2% (BldA) [Mass fraction] 93 % Dr. Yoav Charkaborty Work Phone: [facility] 01-17-2024 11:44-0400 Systolic blood pressure 159 mm[Hg] Dr. Yoav Chakraborty Work Phone: [facility] 01-17-2024 09:22-0400 Inhaled oxygen flow rate 2 L/min Dr. Yoav Chakraborty Work Phone: [facility] 01-16-2024 15:12-0400 Body height 157.[address] Yoav Chakraborty Work Phone: [facility] 01-16-2024 15:12-0400 Body weight 75.[address] Yoav Chakraborty Work Phone: [facility] 01-12-2024 18:38-0400 Body mass index (BMI) [Ratio] 30.4 kg/m2 Dr. Yoav Chakraborty Work Phone: [facility] 01-12-2024 17:00-0400 Body temperature 98.1 [degF] [facility] 01-12-2024 17:00-0400 Diastolic blood pressure 72 mm[Hg] [facility] 01-12-2024 17:00-0400 Heart rate 73 /min [facility] 01-12-2024 17:00-0400 Respiratory rate 19 /min [facility] 01-12-2024 17:00-0400 SaO2% (BldA) [Mass fraction] 94 % [facility] 01-12-2024 17:00-0400 Systolic blood pressure 132 mm[Hg] [facility] 01-12-2024 14:02-0400 Body height 157.48 cm [facility] 01-12-2024 14:02-0400 Body mass index (BMI) [Ratio] 31.7 kg/m2 [facility] 01-12-2024 14:02-0400 Body weight 78.7 kg [facility] 01-08-2024 10:17-0400 Body temperature 97.81 [degF] Injection Work Phone: [facility] 01-08-2024 10:17-0400 Diastolic blood pressure 74 mm[Hg] Injection Work Phone: [facility] 01-08-2024 10:17-0400 Heart rate 67 /min Injection Work Phone: [facility] 01-08-2024 10:17-0400 Respiratory rate 16 /min Injection Work Phone: [facility] 01-08-2024 10:17-0400 SaO2% (BldA) [Mass fraction] 99 % Injection Work Phone: [facility] 01-08-2024 10:17-0400 Systolic blood pressure 138 mm[Hg] Injection Work Phone: [facility] 12-11-2023 08:59-0500 Body temperature 97.3 [degF] Leonid Graham MD Work Phone: [facility] 12-11-2023 08:59-0500 Diastolic blood pressure 65 mm[Hg] Leonid Graham MD Work Phone: [facility] 12-11-2023 08:59-0500 Heart rate 60 /min Leonid Graham MD Work Phone: [facility] 12-11-2023 08:59-0500 Respiratory rate 16 /min Leonid Graham MD Work Phone: [facility] 12-11-2023 08:59-0500 SaO2% (BldA) [Mass fraction] 97 % Leonid Graham MD Work Phone: [facility] 12-11-2023 08:59-0500 Systolic blood pressure 161 mm[Hg] Leonid Graham MD Work Phone: [facility] 11-13-2023 09:55-0500 Body temperature 97 [degF] Injection Work Phone: [facility] 11-13-2023 09:55-0500 Diastolic blood pressure 57 mm[Hg] Injection Work Phone: [facility] 11-13-2023 09:55-0500 Heart rate 61 /min Injection Work Phone: [facility] 11-13-2023 09:55-0500 Respiratory rate 18 /min Injection Work Phone: [facility] 11-13-2023 09:55-0500 SaO2% (BldA) [Mass fraction] 100 % Injection Work Phone: [facility] 11-13-2023 09:55-0500 Systolic blood pressure 149 mm[Hg] Injection Work Phone: [facility] 08-07-2023 10:44-0400 Body temperature 96.8 [degF] Leonid Graham MD Work Phone: [facility] 08-07-2023 10:44-0400 Body weight 77.6 kg Leonid Graham MD Work Phone: [facility] 08-07-2023 10:44-0400 Diastolic blood pressure 72 mm[Hg] Leonid Graham MD Work Phone: [facility] 08-07-2023 10:44-0400 Heart rate 60 /min Leonid Graham MD Work Phone: [facility] 08-07-2023 10:44-0400 SaO2% (BldA) [Mass fraction] 97 % Leonid Graham MD Work Phone: [facility] 08-07-2023 10:44-0400 Systolic blood pressure 158 mm[Hg] Leonid Graham MD Work Phone: [facility] 05-29-2023 09:06-0400 Body temperature 96.91 [degF] Injection Mc Work Phone: [facility] 05-29-2023 09:06-0400 Diastolic blood pressure 82 mm[Hg] Injection Mc Work Phone: [facility] 05-29-2023 09:06-0400 Heart rate 64 /min Injection Mc Work Phone: [facility] 05-29-2023 09:06-0400 Respiratory rate 18 /min Injection Mc Work Phone: [facility] 05-29-2023 09:06-0400 SaO2% (BldA) [Mass fraction] 98 % Injection Mc Work Phone: [facility] 05-29-2023 09:06-0400 Systolic blood pressure 159 mm[Hg] Injection Mc Work Phone: [facility] 05-01-2023 09:41-0400 Body temperature 97.11 [degF] Injection Mc Work Phone: [facility] 05-01-2023 09:41-0400 Diastolic blood pressure 89 mm[Hg] Injection Mc Work Phone: [facility] 05-01-2023 09:41-0400 Heart rate 66 /min Injection Mc Work Phone: [facility] 05-01-2023 09:41-0400 Respiratory rate 18 /min Injection Mc Work Phone: [facility] 05-01-2023 09:41-0400 SaO2% (BldA) [Mass fraction] 99 % Injection Mc Work Phone: [facility] 05-01-2023 09:41-0400 Systolic blood pressure 152 mm[Hg] Injection Mc Work Phone: [facility] 04-03-2023 08:52-0400 Body temperature 98.71 [degF] Injection Mc Work Phone: [facility] 04-03-2023 08:52-0400 Diastolic blood pressure 57 mm[Hg] Injection Mc Work Phone: [facility] 04-03-2023 08:52-0400 Heart rate 63 /min Injection Mc Work Phone: [facility] 04-03-2023 08:52-0400 Respiratory rate 16 /min Injection Mc Work Phone: [facility] 04-03-2023 08:52-0400 SaO2% (BldA) [Mass fraction] 95 % Injection Mc Work Phone: [facility] 04-03-2023 08:52-0400 Systolic blood pressure 145 mm[Hg] Injection Mc Work Phone: [facility] 03-08-2023 21:31-0400 Diastolic blood pressure 79 mm[Hg] [facility] 03-08-2023 21:31-0400 Heart rate 57 /min [facility] 03-08-2023 21:31-0400 Respiratory rate 18 /min [facility] 03-08-2023 21:31-0400 SaO2% (BldA) [Mass fraction] 97 % [facility] 03-08-2023 21:31-0400 Systolic blood pressure 210 mm[Hg] [facility] 03-08-2023 17:45-0400 Body mass index (BMI) [Ratio] 30.8 kg/m2 [facility] 03-08-2023 17:45-0400 Body weight 76.4 kg [facility] 03-08-2023 17:05-0400 Body height 157.48 cm [facility] 03-08-2023 17:05-0400 Body temperature 98.3 [degF] [facility] 01-09-2023 09:10-0400 Body temperature 97.5 [degF] Injection Work Phone: [facility] 01-09-2023 09:10-0400 Diastolic blood pressure 81 mm[Hg] Injection Mc Work Phone: [facility] 01-09-2023 09:10-0400 Heart rate 65 /min Injection Work Phone: [facility] 01-09-2023 09:10-0400 Respiratory rate 16 /min Injection Work Phone: [facility] 01-09-2023 09:10-0400 SaO2% (BldA) [Mass fraction] 98 % Injection Work Phone: [facility] 01-09-2023 09:10-0400 Systolic blood pressure 167 mm[Hg] Injection Work Phone: [facility] 12-12-2022 10:15-0500 Body temperature 98.01 [degF] Leonid Graham MD Work Phone: [facility] 12-12-2022 10:15-0500 Body weight 75.75 kg Leonid Graham MD Work Phone: [facility] 12-12-2022 10:15-0500 Diastolic blood pressure 80 mm[Hg] Leonid Graham MD Work Phone: [facility] 12-12-2022 10:15-0500 Heart rate 68 /min Leonid Graham MD Work Phone: [facility] 12-12-2022 10:15-0500 Respiratory rate 18 /min Leonid Graham MD Work Phone: [facility] 12-12-2022 10:15-0500 SaO2% (BldA) [Mass fraction] 98 % Leonid Graham MD Work Phone: [facility] 12-12-2022 10:15-0500 Systolic blood pressure 142 mm[Hg] Leonid Graham MD Work Phone: [facility] 11-14-2022 08:35-0500 Body temperature 96.8 [degF] Injection Work Phone: [facility] 11-14-2022 08:35-0500 Diastolic blood pressure 72 mm[Hg] Injection Work Phone: [facility] 11-14-2022 08:35-0500 Heart rate 71 /min Injection Work Phone: [facility] 11-14-2022 08:35-0500 SaO2% (BldA) [Mass fraction] 98 % Injection Work Phone: [facility] 11-14-2022 08:35-0500 Systolic blood pressure 151 mm[Hg] Injection Work Phone: [facility] 10-17-2022 08:54-0500 Body temperature 97.11 [degF] Injection Work Phone: [facility] 10-17-2022 08:54-0500 Diastolic blood pressure 78 mm[Hg] Injection Work Phone: [facility] 10-17-2022 08:54-0500 Heart rate 67 /min Injection Work Phone: [facility] 10-17-2022 08:54-0500 SaO2% (BldA) [Mass fraction] 98 % Injection Work Phone: [facility] 10-17-2022 08:54-0500 Systolic blood pressure 150 mm[Hg] Injection Work Phone: [facility] 09-05-2022 09:40-0500 Body temperature 97.81 [degF] Leonid Graham MD Work Phone: [facility] 09-05-2022 09:40-0500 Body weight 78.93 kg Leonid Graham MD Work Phone: [facility] 09-05-2022 09:40-0500 Diastolic blood pressure 75 mm[Hg] Leonid Graham MD Work Phone: [facility] 09-05-2022 09:40-0500 Heart rate 63 /min Leonid Graham MD Work Phone: [facility] 09-05-2022 09:40-0500 Respiratory rate 18 /min Leonid Graham MD Work Phone: [facility] 09-05-2022 09:40-0500 SaO2% (BldA) [Mass fraction] 98 % Leonid Graham MD Work Phone: [facility] 09-05-2022 09:40-0500 Systolic blood pressure 138 mm[Hg] Leonid Graham MD Work Phone: [facility] 08-22-2022 12:33-0500 Body temperature 97.39 [degF] Injection Work Phone: [facility] 08-22-2022 12:33-0500 Diastolic blood pressure 77 mm[Hg] Injection Work Phone: [facility] 08-22-2022 12:33-0500 Heart rate 68 /min Injection Work Phone: [facility] 08-22-2022 12:33-0500 SaO2% (BldA) [Mass fraction] 98 % Injection Work Phone: [facility] 08-22-2022 12:33-0500 Systolic blood pressure 156 mm[Hg] Injection Work Phone: [facility] 08-06-2022 09:30-0400 Body temperature 97.2 [degF] [facility] Work Phone: 08-06-2022 08:11-0400 Diastolic blood pressure 79 mm[Hg] [facility] Work Phone: 08-06-2022 08:11-0400 Heart rate 62 /min [facility] Work Phone: 08-06-2022 08:11-0400 Respiratory rate 15 /min [facility] Work Phone: 08-06-2022 08:11-0400 SaO2% (BldA) [Mass fraction] 97 % [facility] Work Phone: 08-06-2022 08:11-0400 Systolic blood pressure 146 mm[Hg] [facility] Work Phone: 08-05-2022 19:17-0400 Body height 157.48 cm [facility] Work Phone: 08-05-2022 19:17-0400 Body mass index (BMI) [Ratio] 34.2 kg/m2 [facility] Work Phone: 08-05-2022 19:17-0400 Body weight 85 kg [facility] Work Phone: 07-11-2022 09:02-0400 Body temperature 97.5 [degF] Injection Mc Work Phone: [facility] 07-11-2022 09:02-0400 Diastolic blood pressure 61 mm[Hg] Injection Mc Work Phone: [facility] 07-11-2022 09:02-0400 Heart rate 58 /min Injection Mc Work Phone: [facility] 07-11-2022 09:02-0400 SaO2% (BldA) [Mass fraction] 97 % Injection Mc Work Phone: [facility] 07-11-2022 09:02-0400 Systolic blood pressure 163 mm[Hg] Injection Mc Work Phone: [facility] 06-13-2022 10:19-0400 Body temperature 97.81 [degF] Injection Mc Work Phone: [facility] 06-13-2022 10:19-0400 Diastolic blood pressure 74 mm[Hg] Injection Mc Work Phone: [facility] 06-13-2022 10:19-0400 Heart rate 61 /min Injection Mc Work Phone: [facility] 06-13-2022 10:19-0400 SaO2% (BldA) [Mass fraction] 100 % Injection Mc Work Phone: [facility] 06-13-2022 10:19-0400 Systolic blood pressure 159 mm[Hg] Injection Mc Work Phone: [facility] 05-16-2022 09:48-0400 Body temperature 98.6 [degF] Injection Mc Work Phone: [facility] 05-16-2022 09:48-0400 Body weight 88.36 kg Injection Mc Work Phone: [facility] 05-16-2022 09:48-0400 Diastolic blood pressure 81 mm[Hg] Injection Work Phone: [facility] 05-16-2022 09:48-0400 Heart rate 71 /min Injection Work Phone: [facility] 05-16-2022 09:48-0400 Respiratory rate 18 /min Injection Work Phone: [facility] 05-16-2022 09:48-0400 SaO2% (BldA) [Mass fraction] 97 % Injection Work Phone: [facility] 05-16-2022 09:48-0400 Systolic blood pressure 145 mm[Hg] Injection Work Phone: [facility] 04-18-2022 10:45-0400 Body temperature 97.9 [degF] Leonid Graham MD Work Phone: [facility] 04-18-2022 10:45-0400 Body weight 89.04 kg Leonid Graham MD Work Phone: [facility] 04-18-2022 10:45-0400 Diastolic blood pressure 62 mm[Hg] Leonid Graham MD Work Phone: [facility] 04-18-2022 10:45-0400 Heart rate 69 /min Leonid Graham MD Work Phone: [facility] 04-18-2022 10:45-0400 SaO2% (BldA) [Mass fraction] 96 % Leonid Graham MD Work Phone: [facility] 04-18-2022 10:45-0400 Systolic blood pressure 155 mm[Hg] Leonid Graham MD Work Phone: [facility] 03-14-2022 09:10-0400 Body temperature 97.3 [degF] Treatment Work Phone: [facility] 03-14-2022 09:10-0400 Body weight 85.78 kg Treatment Work Phone: [facility] 03-14-2022 09:10-0400 Diastolic blood pressure 68 mm[Hg] Treatment Work Phone: [facility] 03-14-2022 09:10-0400 Heart rate 63 /min Treatment Work Phone: [facility] 03-14-2022 09:10-0400 Respiratory rate 18 /min Treatment Work Phone: [facility] 03-14-2022 09:10-0400 SaO2% (BldA) [Mass fraction] 98 % Treatment Work Phone: [facility] 03-14-2022 09:10-0400 Systolic blood pressure 156 mm[Hg] Treatment Work Phone: [facility] 02-12-2022 11:04-0400 Body temperature 97.9 [degF] Treatment Work Phone: [facility] 02-12-2022 11:04-0400 Diastolic blood pressure 63 mm[Hg] Treatment Work Phone: [facility] 02-12-2022 11:04-0400 Heart rate 65 /min Treatment Work Phone: [facility] 02-12-2022 11:04-0400 SaO2% (BldA) [Mass fraction] 98 % Treatment Work Phone: [facility] 02-12-2022 11:04-0400 Systolic blood pressure 139 mm[Hg] Treatment Work Phone: [facility] Encounters Encounter Date Encounter Type Care Provider Facility Start: 08-10-2025 End: 08-10-2025 ambulatory LEONID IMMANUEL ALI Facility:[facility] Start: 08-09-2025 End: 08-09-2025 ambulatory UNKNOWN PROVIDER Facility:[facility] Start: 07-13-2025 End: 07-13-2025 ambulatory LEONID IMMANUEL ALI Facility:[facility] Start: 07-12-2025 End: 07-12-2025 ambulatory UNKNOWN PROVIDER Facility:[facility] Start: 06-15-2025 End: 06-15-2025 ambulatory Injection Riley Mayen Work Phone: Hematology/Oncology Comment on above: Cancer of breast, in traductal, left (Primary Dx) Start: 06-15-2025 End: 06-15-2025 Patient encounter procedure Leonid Graham MD Work Phone: Hematology/Oncology Start: 06-15-2025 End: 06-15-2025 ambulatory Leonid Graham MD Work Phone: Hematology/Oncology Comment on above: 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, estrogen receptor positive, unspecified site of breast (HCC) (Primary Dx) Start: 06-14-2025 End: 06-14-2025 ambulatory UNKNOWN PROVIDER Facility:[facility] Start: 05-12-2025 End: 05-12-2025 ambulatory Leonid Graham MD Work Phone: Hematology/Oncology Comment on above: Cancer of breast, in traductal, left (Primary Dx) Start: 05-12-2025 End: 05-12-2025 Patient encounter procedure Leonid Graham MD Work Phone: Hematology/Oncology Start: 05-12-2025 End: 05-12-2025 ambulatory LEONID GRAHAM Facility:[facility] Start: 05-11-2025 End: 05-11-2025 ambulatory UNKNOWN PROVIDER Facility:[facility] Start: 04-14-2025 End: 04-14-2025 ambulatory Injection Riley Mayen Mc Work Phone: Hematology/Oncology Comment on above: Cancer of breast, in traductal, left (Primary Dx) Start: 04-13-2025 End: 04-13-2025 Telephone encounter Leonid Graham MD Work Phone: Hematology/Oncology Comment on above: Orders Start: 03-17-2025 End: 03-17-2025 ambulatory Injection Riley Mayen Mc Work Phone: Hematology/Oncology Comment on above: Cancer of breast, in traductal, left (Primary Dx) Start: 03-16-2025 End: 03-16-2025 ambulatory LEONID IMMANUEL GRAHAM Facility:[facility] Start: 02-17-2025 End: 02-17-2025 ambulatory Injection Riley Mayen Mc Work Phone: Hematology/Oncology Comment on above: Cancer of breast, in traductal, left (Primary Dx) Start: 02-16-2025 End: 02-16-2025 ambulatory LEONID IMMANUEL [facility] Facility:[facility] Start: 01-20-2025 End: 01-20-2025 ambulatory Injection Riley Mayen Mc Work Phone: Hematology/Oncology Comment on above: Cancer of breast, in traductal, left (Primary Dx) Malignant neoplasm o f breast in female, estrogen receptor positive, unspecified laterality, unspecified site of breast (HCC) (Primary Dx) Start: 01-20-2025 End: 01-20-2025 Patient encounter procedure Leonid Graham MD Work Phone: Hematology/Oncology Start: 01-20-2025 End: 01-20-2025 ambulatory YOAV CHAKRABORTY Facility:[facility] Start: 01-19-2025 End: 01-19-2025 ambulatory [facility] Facility:[facility] Start: 12-23-2024 End: 12-23-2024 ambulatory Injection Riley Mayen Mc Work Phone: Hematology/Oncology Comment on above: Cancer of breast, in traductal, left (Primary Dx) Start: 12-22-2024 End: 12-22-2024 [facility] Start: 11-25-2024 End: 11-25-2024 ambulatory Injection Riley Mayen Mc Work Phone: Hematology/Oncology Comment on above: Cancer of breast, in traductal, left (Primary Dx) Start: 11-24-2024 End: 11-24-2024 ambulatory LEONID IMMANUEL [facility] Facility:[facility] Start: 10-24-2024 End: 10-24-2024 ambulatory Injection Riley Mayen Mc Work Phone: Hematology/Oncology Comment on above: Cancer of breast, in traductal, left (Primary Dx) Cancer of breast, in traductal, left (Primary Dx); Metastasis to bone (HCC) Start: 10-24-2024 End: 10-24-2024 Patient encounter procedure Leonid Graham MD Work Phone: Hematology/Oncology Start: 10-21-2024 End: 10-21-2024 ambulatory LEONID IMMANUEL ALI Facility:[facility] Start: 09-21-2024 End: 09-21-2024 ambulatory Injection Riley Mayen Mc Work Phone: Hematology/Oncology Comment on above: Cancer of breast, in traductal, left (Primary Dx) Start: 09-20-2024 End: 09-20-2024 [facility] Start: 09-05-2024 End: 09-05-2024 ambulatory [facility] Facility:[facility] Start: 08-22-2024 End: 08-22-2024 ambulatory Injection Riley Mayen Mc Work Phone: Hematology/Oncology Comment on above: Cancer of breast, in traductal, left (Primary Dx) Start: 08-18-2024 End: 08-18-2024 [facility] Start: 07-22-2024 End: 07-22-2024 ambulatory Injection Riley Mayen Mc Work Phone: Hematology/Oncology Comment on above: Cancer of breast, in traductal, left (Primary Dx) Start: 06-22-2024 End: 06-22-2024 ambulatory Injection Riley Mayen Mc Work Phone: Hematology/Oncology Comment on above: Cancer of breast, in traductal, left (Primary Dx) Malignant neoplasm o f female breast, unspecified estrogen receptor status, unspecified laterality, unspecified site of breast (HCC) (Primary Dx); History of cancer metastatic to bone Start: 06-22-2024 End: 06-22-2024 Patient encounter procedure Janett King KELLY Work Phone: Hematology/Oncology Start: 05-27-2024 End: 05-27-2024 ambulatory Injection Riley Mayen Mc Work Phone: Hematology/Oncology Comment on above: Cancer of breast, in traductal, left (Primary Dx) Start: 04-29-2024 End: 04-29-2024 ambulatory Injection Riley Mayen Mc Work Phone: Hematology/Oncology Comment on above: Cancer of breast, in traductal, left (Primary Dx) Start: 04-01-2024 End: 04-01-2024 ambulatory Injection Riley Mayen Mc Work Phone: Hematology/Oncology Comment on above: Cancer of breast, in traductal, left (Primary Dx); Encounter for long-term (current) use of medications Start: 03-22-2024 End: 03-22-2024 Home visit Delicia Lazo PT Work Phone: [facility] Comment on above: PT AGENCY DC W VISIT Start: 03-17-2024 End: 03-17-2024 Home visit Lori Nava OT/L Work Phone: [facility] Comment on above: OT DISC DC W VISIT [employer]CHESTRA [employer]ICIAN ROUTINE Start: 03-14-2024 End: 03-14-2024 Home visit Alok Sabillon ORCHESTRA MUSICIAN Work Phone: [facility] Comment on above: ORCHESTRA MUSICIAN ROUTINE Start: 03-10-2024 End: 03-10-2024 Home visit Pidead Laws ORCHESTRA MUSICIAN Work Phone: [facility] Comment on above: ORCHESTRA MUSICIAN ROUTINE Start: 03-07-2024 End: 03-07-2024 Home visit Piedad Laws [employer]CHESTRA MUSICIAN Work Phone: [facility] Comment on above: ORCHESTRA MUSICIAN ROUTINE OT ROUTINE Start: 03-04-2024 End: 03-04-2024 ambulatory Injection Riley Mayen Mc Work Phone: Hematology/Oncology Comment on above: Cancer of breast, in traductal, left (Primary Dx) Start: 03-04-2024 End: 03-04-2024 Patient encounter procedure Leonid Graham MD Work Phone: Hematology/Oncology Comment on above: Neoplasm of breast, distant metastasis staging category m1: distant detectable metastasis found by clinical and radiographic means and/or histologically proven larger than 0.2 mm, left (HCC) (Primary Dx) Start: 03-03-2024 End: 03-03-2024 Home visit Piedad Laws ORCHESTRA MUSICIAN Work Phone: [facility] Comment on above: ORCHESTRA MUSICIAN ROUTINE Start: 03-02-2024 End: 03-02-2024 Home visit Blanca Blevins RN Work Phone: [facility] Comment on above: SN DISC DC W VISIT Start: 03-01-2024 End: 03-01-2024 Home visit Piedad Laws [employer]CHESTRA MUSICIAN Work Phone: [facility] Comment on above: ORCHESTRA MUSICIAN ROUTINE OT ROUTINE Start: 02-26-2024 End: 02-26-2024 Home visit Delicia Lazo PT Work Phone: [facility] Comment on above: PT CASE MANAGEMENT V ISIT Start: 02-25-2024 End: 02-25-2024 Home visit Brianne Dominique RN Work Phone: [facility] Comment on above: SN EVAL OT EVAL Start: 02-24-2024 End: 02-24-2024 Home visit Althea Cardona RN Work Phone: [facility] Comment on above: CARE COORDINATION Start: 02-23-2024 End: 02-23-2024 Home visit Bianca Montalvo PT Work Phone: [facility] Comment on above: PT SOC Start: 02-22-2024 Telephone encounter Yoav fox MD Work Phone: [facility] Comment on above: Home Care ( to damon andino) Home Care Start: 02-21-2024 Telephone encounter Tanika Pozo [facility] Comment on above: Home Care (Confirmat ion call) Start: 01-17-2024 End: 02-19-2024 Evaluation and management of inpatient VENKAT GUTIÉRREZI Facility:[facility] Start: 01-17-2024 Non-patient / Non-visit Dr. Janna Chakraborty Work Phone: [facility] Work Phone: Start: 01-16-2024 Non-patient / Non-visit Dr. Janna Chakraborty Work Phone: [facility] Work Phone: Start: 01-15-2024 Non-patient / Non-visit Dr. Janna Chakraborty Work Phone: [facility] Work Phone: Start: 01-14-2024 Non-patient / Non-visit Dr. Janna Chakraborty Work Phone: [facility] Work Phone: Start: 01-13-2024 Non-patient / Non-visit Dr. Janna Chakraborty Work Phone: [facility] Work Phone: Start: 01-12-2024 Non-patient / Non-visit Dr. Janna Chakraborty Work Phone: [facility] Work Phone: Start: 01-12-2024 ambulatory Yoav Chakraborty Facili ty:[facility] Start: 01-12-2024 End: 01-17-2024 Evaluation and management of inpatient [facility] 3 Work Phone: Start: 01-08-2024 End: 01-08-2024 ambulatory Injection Riley Mayen Mc Work Phone: Hematology/Oncology Comment on above: Cancer of breast, in traductal, left (Primary Dx); Encounter for long-term (current) use of medications Start: 12-11-2023 End: 12-11-2023 ambulatory Leonid Graham MD Work Phone: Hematology/Oncology Comment on above: Cancer of breast, in traductal, left (Primary Dx) Start: 12-11-2023 End: 12-11-2023 Patient encounter procedure Leonid Graham MD Work Phone: [facility] Start: 11-13-2023 End: 11-13-2023 ambulatory Injection Riley Mayen Mc Work Phone: Hematology/Oncology Comment on above: Cancer of breast, in traductal, left (Primary Dx); Encounter for long-term (current) use of medications Start: 08-21-2023 End: 08-21-2023 ambulatory Injection Riley Mayen Mc Work Phone: Hematology/Oncology Comment on above: Cancer of breast, in traductal, left (Primary Dx) Start: 08-19-2023 End: 08-19-2023 ambulatory [facility] Work Phone: Start: 08-19-2023 End: 08-19-2023 Patient encounter procedure [facility], Phy Office 3rd Flr Start: 08-07-2023 End: 08-07-2023 ambulatory Leonid Graham MD Work Phone: Hematology/Oncology Comment on above: Need for influenza v accination (Primary Dx); Cancer of breast, intraductal, left Start: 08-07-2023 End: 08-07-2023 Patient encounter procedure Leonid Graham MD Work Phone: [facility] Start: 07-24-2023 End: 07-24-2023 ambulatory Injection Riley Mayen Work Phone: Hematology/Oncology Comment on above: Cancer of breast, in traductal, left (Primary Dx) Start: 06-26-2023 End: 06-26-2023 ambulatory Injection Riley Mayen Work Phone: Hematology/Oncology Comment on above: Cancer of breast, in traductal, left (Primary Dx) Start: 06-18-2023 End: 06-18-[address] Yoav Chakraborty Work Phone: [facility] Work Phone: Start: 06-18-2023 End: 06-18-[address] Yoav Chakraborty Work Phone: [facility] Work Phone: Start: 05-29-2023 End: 05-29-[address] Yoav Chakraborty Work Phone: [facility]Rad[facility], [facility] Work Phone: Start: 05-29-2023 End: 05-29-2023 ambulatory Injection Riley Mayen Mc Work Phone: Hematology/Oncology Comment on above: Cancer of breast, in traductal, left (Primary Dx) Start: 05-02-2023 ambulatory Ailin Stanley RN [facility] Clinical Communication Start: 05-02-2023 Patient encounter procedure Ailin Stnaley RN [facility] Clinical Communication Start: 05-01-2023 End: 05-01-2023 ambulatory Injection Riley Mayen Mc Work Phone: Hematology/Oncology Comment on above: Cancer of breast, in traductal, left (Primary Dx) Start: 04-03-2023 End: 04-03-2023 ambulatory Injection Riley Mayen Mc Work Phone: Hematology/Oncology Comment on above: Cancer of breast, in traductal, left (Primary Dx); Encounter for antineoplastic immunotherapy Start: 03-17-2023 End: 03-17-[address] Yoav Chakraborty Work Phone: [facility] Work Phone: Start: 03-14-2023 End: 03-14-[address] Yoav Chakraborty Work Phone: [facility] Work Phone: Start: 03-08-2023 End: 03-08-2023 Emergency department patient visit [facility] Start: 03-06-2023 End: 03-06-2023 ambulatory Injection Riley Mayen Mc Work Phone: Hematology/Oncology Comment on above: Malignant neoplasm o f female breast, unspecified estrogen receptor status, unspecified laterality, unspecified site of breast (HCC) (Primary Dx); Cancer of breast, intraductal, left Start: 02-06-2023 End: 02-06-2023 ambulatory Injection Riley Mayen Mc Work Phone: Hematology/Oncology Comment on above: Cancer of breast, in traductal, left (Primary Dx) Start: 01-09-2023 End: 01-09-2023 ambulatory Injection Riley Mayen Mc Work Phone: Hematology/Oncology Comment on above: Cancer of breast, in traductal, left (Primary Dx) Start: 12-12-2022 End: 12-12-2022 ambulatory Leonid Graham MD Work Phone: Hematology/Oncology Comment on above: Cancer of breast, in traductal, left (Primary Dx) Start: 12-12-2022 End: 12-12-2022 Patient encounter procedure Leonid Graham MD Work Phone: [facility] Start: 11-14-2022 End: 11-14-2022 ambulatory Injection Riley Mayen Mc Work Phone: Hematology/Oncology Comment on above: Cancer of breast, in traductal, left (Primary Dx) Start: 10-17-2022 End: 10-17-2022 ambulatory Injection Riley Mayen Mc Work Phone: Hematology/Oncology Comment on above: Cancer of breast, in traductal, left (Primary Dx) Start: 09-05-2022 End: 09-05-2022 ambulatory Leonid Graham MD Work Phone: Hematology/Oncology Comment on above: Cancer of breast, in traductal, left (Primary Dx) Start: 09-05-2022 End: 09-05-2022 Patient encounter procedure Leonid Graham MD Work Phone: [facility] Start: 09-03-2022 End: 09-03-2022 ambulatory [facility] Work Phone: Start: 09-03-2022 End: 09-03-2022 Patient encounter procedure [facility] Start: 09-02-2022 Telephone encounter Leonid Graham MD Work Phone: Hematology/Oncology Comment on above: Insurance Authorizat ion Start: 08-22-2022 End: 08-22-2022 ambulatory Injection Riley Mayen Mc Work Phone: Hematology/Oncology Comment on above: Cancer of breast, in traductal, left (Primary Dx) Start: 08-15-2022 Telephone encounter Leonid Graham MD Work Phone: Hematology/Oncology Comment on above: Appointment Start: 08-05-2022 End: 08-06-2022 Emergency department patient visit [facility]Emer[facility] Start: 07-18-2022 End: 07-18-2022 Subsequent hospital visit by physician [facility] Radiology Comment on above: Disorientation, unsp ecified [R41.0] Start: 07-11-2022 End: 07-11-2022 ambulatory Injection Riley Mayen Mc Work Phone: Hematology/Oncology Comment on above: Cancer of breast, in traductal, left (Primary Dx) Start: 07-04-2022 Refill Leonid Graham MD Work Phone: Hematology/Oncology Comment on above: Refill Request Start: 06-13-2022 End: 06-13-2022 ambulatory Injection Riley Mayen Mc Work Phone: Hematology/Oncology Comment on above: Cancer of breast, in traductal, left (Primary Dx) Start: 05-27-2022 ambulatory Kavita Josafat RT(R) CT Sc an Comment on above: Radiology CT Start: 05-27-2022 Patient encounter procedure Kavita Josafat RT(R) [facility] Start: 05-16-2022 End: 05-16-2022 ambulatory Injection Riley Mayen Mc Work Phone: Hematology/Oncology Comment on above: Cancer of breast, in traductal, left (Primary Dx) Start: 05-11-2022 Refill Janett Gamino PRN.CNP Work Phone: Hematology/Oncology Comment on above: Refill Request Start: 04-18-2022 End: 04-18-2022 ambulatory Treatment 6 Riley Mayen Mc Work Phone: Hematology/Oncology Comment on above: Cancer of breast, in traductal, left (Primary Dx) Malignant neoplasm o f female breast, unspecified estrogen receptor status, unspecified laterality, unspecified site of breast (HCC) (Primary Dx); Cancer of breast, intraductal, left; Bone metastasis (HCC) Start: 04-18-2022 End: 04-18-2022 Patient encounter procedure Leonid Graham MD Work Phone: [facility] Start: 04-12-2022 Refill Leonid Graham MD Work Phone: Hematology/Oncology Comment on above: Refill Request Start: 03-16-2022 Refill Leonid Graham MD Work Phone: Hematology/Oncology Comment on above: Refill Request Start: 03-14-2022 End: 03-14-[address] [facility] Work Phone: Hematology/Oncology Comment on above: Cancer of breast, in traductal, left (Primary Dx); Bone metastasis (HCC); Encounter for long-term (current) use of medications Refill Request Start: 02-20-2022 Documentation procedure Mammog meghan Coordinator [facility] Start: 02-20-2022 Letter encounter Mammography Coordinator [facility] Department Start: 02-20-2022 End: 02-20-2022 Subsequent hospital visit by physician Screen/Diagnostic Mammo 2 [facility] Work Phone: Mammography Comment on above: Encounter for screen ing mammogram for malignant neoplasm of breast [Z12.31] Start: 02-12-2022 End: 02-12-[address] [facility] Work Phone: Hematology/Oncology Comment on above: Cancer of breast, in traductal, left (Primary Dx) Start: 02-01-2022 Refill Leonid Graham MD Work Phone: Hematology/Oncology Comment on above: Refill Request Start: 01-05-2022 Refill Leonid Graham MD Work Phone: Hematology/Oncology Comment on above: Refill Request Procedures Date Procedure Procedure Detail Performing Clinician Start: 06-15-2025 Follow-up visit Follow Up LEONID GRAHAM Start: 01-15-[address] Janna Chakraborty Work Phone: Start: 01-14-2024 Plain chest X-ray Dr. Andrea Chakraborty Work Phone: Start: 01-13-2024 Plain X-ray of hip Dr. Yoav Chakraborty Work Phone: Start: 01-13-2024 IM Rodding Hip, Inte rtan Nail S/N (Left) Dr. Yoav Chakraborty Work Phone: Start: 01-13-2024 Fluoroscopic guidance Concetta Chakraborty Work Phone: Start: 01-13-2024 Plain x-ray of pelvi s and lower extremity Dr. Yoav Chakraborty Work Phone: Start: 01-12-2024 Plain X-ray of femur Dr Carissa Chakraborty Work Phone: Start: 01-12-2024 MRI of lower extremity Start: 01-12-2024 Plain chest X-ray Start: 01-12-2024 Plain x-ray of pelvi s and lower extremity Start: 01-12-2024 CT cervical spine wi thout contrast Start: 01-12-2024 CT of head without contrast Start: 01-12-[address] Dudley Chakraborty Work Phone: Start: 05-28-2023 X-ray of both feet Dr. Yoav Chakraborty Work Phone: Start: 03-08-2023 Plain chest X-ray Start: 03-08-2023 Plain x-ray of hand Start: 09-03-2022 MRI of brain without contrast Start: 08-05-2022 Plain chest X-ray Start: 08-05-2022 CT of head without contrast Start: 03-14-2022 Comprehensive metabo lic panel Leonid Graham MD Work Phone: Start: 02-20-2022 Screening mammograph y bi 2-view breast inc cad Perfecto Partida PA-C Work Phone: Viral antigen assay Plan of Treatment Date Care Activity Detail Author Start: 09-01-2033 Urine microalbumin profile DTaP,Tdap,Td Vaccine (3 - Td or Tdap) [facility] Start: 03-08-2033 Urine microalbumin profile DTaP,Tdap,Td Vaccine (2 - Td or Tdap) [facility] Start: 06-14-2028 Diabetes Screening Diabetes Screenin g [facility] Start: 05-11-2028 Diabetes Screening Diabetes Screenin g [facility] Start: 03-16-2028 Diabetes Screening Diabetes Screenin g [facility] Start: 02-17-2028 Diabetes Screening Diabetes Screenin g [facility] Start: 01-20-2028 Diabetes Screening Diabetes Screenin jaz [facility] Start: 12-23-2027 Diabetes Screening Diabetes Screenin g [facility] Start: 11-24-2027 Diabetes Screening Diabetes Screenin g [facility] Start: 10-21-2027 Diabetes Screening Diabetes Screenin jaz [facility] Start: 09-20-2027 Diabetes Screening Diabetes Screenin jaz [facility] Start: 08-18-2027 Diabetes Screening Diabetes Screenin jaz [facility] Start: 07-21-2027 Diabetes Screening Diabetes Screenin jaz [facility] Start: 06-21-2027 Diabetes Screening Diabetes Screenin jaz [facility] Start: 05-25-2027 Diabetes Screening Diabetes Screenin jaz [facility] Start: 04-28-2027 Diabetes Screening Diabetes Screenin jaz [facility] Start: 03-31-2027 Diabetes Screening Diabetes Screenfátima sebastian [facility] Start: 03-03-2027 Diabetes Screening Diabetes Screenin jaz [facility] Start: 02-10-2027 Diabetes Screening Diabetes Screenfátima sebastian [facility] Start: 01-06-2027 Diabetes Screening Diabetes Screenfátima sebastian [facility] Start: 12-09-2026 Diabetes Screening Diabetes Screenin jaz [facility] Start: 11-12-2026 Diabetes Screening Diabetes Screenin jaz [facility] Start: 08-19-2026 Diabetes Screening Diabetes Screenin g [facility] Start: 07-23-2026 Diabetes Screening Diabetes Screenin g [facility] Start: 06-25-2026 Diabetes Screening Diabetes Screenin g [facility] Start: 05-28-2026 DIABETES SCREEN DIABETES SCREEN [facility] Start: 04-30-2026 DIABETES SCREEN DIABETES SCREEN [facility] Start: 04-02-2026 DIABETES SCREEN DIABETES SCREEN [facility] Start: 03-05-2026 DIABETES SCREEN DIABETES SCREEN [facility] Start: 02-05-2026 DIABETES SCREEN DIABETES SCREEN [facility] Start: 01-08-2026 DIABETES SCREEN DIABETES SCREEN [facility] Start: 12-11-2025 DIABETES SCREEN DIABETES SCREEN [facility] Start: 11-13-2025 DIABETES SCREEN DIABETES SCREEN [facility] Start: 10-16-2025 DIABETES SCREEN DIABETES SCREEN [facility] Start: 09-14-2025 End: 09-14-2025 Follow-up encounter 09/14/2025 8:00 AM EST Visit (SP) Office Hematology/Oncology [address] [address] [place] [address] [place] [address] 3 mo follow up injection @8:00 Hematology/Oncology Comment on above: 3 mo follow up injec tion @8:00 Start: 09-07-2025 End: 09-07-2025 ambulatory 09/07/2025 8:00 AM EST Infusion Center Hematology/Oncology [address] [address] [facility] Hematology/Oncology Comment on above: [facility] Start: 08-21-2025 DIABETES SCREEN DIABETES SCREEN [facility] Start: 08-10-2025 End: 08-10-2025 ambulatory 08/10/2025 8:30 AM EST Infusion Center Hematology/Oncology [address] [address] [facility] Hematology/Oncology Comment on above: [facility] Start: 07-13-2025 End: 07-13-2025 ambulatory 07/13/2025 8:30 AM EDT Infusion Center Hematology/Oncology [address] [address] [facility] Hematology/Oncology Comment on above: [facility] Start: 07-10-2025 DIABETES SCREEN DIABETES SCREEN [facility] Start: 06-15-2025 End: 06-15-2025 ambulatory 06/15/2025 10:30 AM EDT Infusion Center Hematology/Oncology [address] [address] [facility] Hematology/Oncology Comment on above: [facility] Start: 06-15-2025 End: 06-15-2025 Follow-up encounter 06/15/2025 9:20 AM EDT Visit (SP) Office Hematology/Oncology [address] [address] [place] [address] [place] [address] follow up Hematology/Oncology Comment on above: follow up Start: 06-12-2025 DIABETES SCREEN DIABETES SCREEN [facility] Start: 06-05-2025 Influenza vaccination [facility] Start: 05-15-2025 DIABETES SCREEN DIABETES SCREEN [facility] Start: 05-12-2025 End: 05-12-2025 Follow-up encounter 05/12/2025 9:40 AM EDT Visit (SP) Office Hematology/Oncology [address] [address] [place] [address] [place] [address] 4 mo follow up Hematology/Oncology Comment on above: 4 mo follow up Start: 05-12-2025 End: 05-12-2025 ambulatory Hematology/Oncology Comment on above: done [facility] Start: 04-17-2025 DIABETES SCREEN DIABETES SCREEN [facility] Start: 04-14-2025 End: 04-14-2025 ambulatory Hematology/Oncology Comment on above: done [facility] Start: 03-17-2025 End: 03-17-2025 ambulatory 03/17/2025 8:00 AM EDT Infusion Center Hematology/Oncology [facility] [address] [address] done [facility] Hematology/Oncology Comment on above: done [facility] Start: 03-14-2025 DIABETES SCREEN DIABETES SCREEN [facility] Start: 02-17-2025 End: 02-17-2025 ambulatory 02/17/2025 8:00 AM EDT Infusion Center Hematology/Oncology [facility] [address] [address] done [facility] Hematology/Oncology Comment on above: done [facility] Start: 01-20-2025 End: 01-20-2025 ambulatory 01/20/2025 9:30 AM EDT Infusion Center Hematology/Oncology [address] [address] done [facility] Hematology/Oncology Comment on above: done [facility] Start: 01-20-2025 End: 01-20-2025 Follow-up encounter 01/20/2025 9:00 AM EDT Visit (SP) Office Hematology/Oncology [address] [address] [place] [address] [place] [address] 3 mo follow up Hematology/Oncology Comment on above: 3 mo follow up Start: 01-10-2025 DIABETES SCREEN DIABETES SCREEN [facility] Start: 12-23-2024 End: 12-23-2024 ambulatory 12/23/2024 9:30 AM EDT Infusion Center Hematology/Oncology [address] [address] done [facility] Hematology/Oncology Comment on above: done [facility] Start: 12-13-2024 DIABETES SCREEN DIABETES SCREEN [facility] Start: 11-25-2024 End: 11-25-2024 ambulatory 11/25/2024 8:30 AM EST Infusion Center Hematology/Oncology [address] [address] done [facility] Hematology/Oncology Comment on above: done [facility] Start: 10-24-2024 End: 10-24-2024 ambulatory 10/24/2024 9:00 AM EST Infusion Center Hematology/Oncology [address] [address] [facility] Hematology/Oncology Comment on above: [facility] Start: 10-24-2024 End: 10-24-2024 Follow-up encounter Hematology/Oncology Comment on above: follow up Start: 10-05-2024 Advance Directive Discussion Advance Directive Discussion [facility] Start: 10-05-2024 Medicare Advantage A nnual Wellness Visit Medicare Advantage Annual Wellness Visit [facility] Start: 09-21-2024 End: 09-21-2024 ambulatory 09/21/2024 9:00 AM EST Infusion Center Hematology/Oncology [address] [address] [facility] Hematology/Oncology Comment on above: [facility] Start: 09-21-2024 End: 09-21-2024 Follow-up encounter 09/21/2024 9:00 AM EST Infusion Center Hematology/Oncology [address] [address] follow up Hematology/Oncology Comment on above: follow up Start: 08-22-2024 End: 08-22-2024 Follow-up encounter 08/22/2024 9:00 AM EST Infusion Center Hematology/Oncology [address] [address] follow up Hematology/Oncology Comment on above: follow up Start: 07-22-2024 End: 07-22-2024 Follow-up encounter 07/22/2024 9:00 AM EDT Infusion Center Hematology/Oncology [address] [address] follow up Hematology/Oncology Comment on above: follow up Start: 06-23-2024 End: 06-23-2024 Follow-up encounter 06/23/2024 8:40 AM EDT Visit (SP) Office Hematology/Oncology [address] [address] [place] [address] [place] [address] 3 mo follow up Hematology/Oncology Comment on above: 3 mo follow up Start: 06-23-2024 End: 06-23-2024 ambulatory 06/23/2024 8:30 AM EDT Infusion Center Hematology/Oncology [address] [address] INJECTION: [facility] Hematology/Oncology Comment on above: INJECTION: [facility] Start: 06-22-2024 End: 06-22-2024 ambulatory 06/22/2024 10:30 AM EDT Infusion Center Hematology/Oncology [address] [address] INJECTION: [facility] Hematology/Oncology Comment on above: INJECTION: [facility] Start: 06-22-2024 End: 06-22-2024 Follow-up encounter 06/22/2024 10:00 AM EDT Visit (SP) Office Hematology/Oncology [address] [address] Janett Betancourt APRN.DRYING ROOM OPERATOR [address] [place] [address] follow up Hematology/Oncology Comment on above: follow up Start: 06-05-2024 Covid-19 Vaccine () Covid-19 Vaccine () [facility] Start: 06-05-2024 Covid-19 Vaccine () Covid-19 Vaccine () [facility] Start: 06-05-2024 Influenza vaccination Influenza Vacc ine (#1) [facility] Start: 05-27-2024 End: 05-27-2024 ambulatory 05/27/2024 10:00 AM EDT Infusion [facility] Hematology/Oncology [address] [address] INJECTION: [facility] Hematology/Oncology Comment on above: INJECTION: [facility]x Start: 04-29-2024 End: 04-29-2024 ambulatory 04/29/2024 10:00 AM EDT Infusion Center Hematology/Oncology [address] [address] INJECTION: [facility] Hematology/Oncology Comment on above: INJECTION: [facility]odex Start: 04-01-2024 End: 04-01-2024 ambulatory 04/01/2024 10:30 AM EDT Infusion Center Hematology/Oncology [address] [address] INJECTION: [facility] Hematology/Oncology Comment on above: INJECTION: [place]lodex Start: 03-22-2024 End: 03-22-2024 Patient encounter procedure [facility] Home Care Comment on above: [id number] L hip ORIF, WBAT Agency DC vs reassess Start: 03-17-2024 End: 03-17-2024 Home visit [facility] Comment on above: [id number] L hip ORIF, WBAT NOMNC Start: 03-16-2024 End: 03-16-2024 Home visit [facility] Comment on above: [id number], [place]/Most. wound care left heel. eval wound healing, d/c or add more visits today [id number] Start: 03-15-2024 End: 03-15-2024 Home visit [facility] Comment on above: [id number] L hip ORIF, WBAT Start: 03-14-2024 End: 03-14-2024 Home visit 03/14/2024 10:00 AM EDT Home Care Visit [facility] [address] [facility] [place] [address] Brandy, Lori, OT/L [address] [place] [address] [facility] Comment on above: [id number] Start: 03-10-2024 End: 03-10-2024 Home visit [facility] Comment on above: [id number] L hip ORIF, WBAT 98145 L hip ORIF, WBAT 9c [id number] L hip ORIF, WBAT 10-10:30 Start: 03-09-2024 End: 03-09-2024 Home visit [facility] Comment on above: [id number], [place]/Most. 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 eval wound healing, if stable, plan d/c next visit [id number] Start: 03-08-2024 End: 03-08-2024 Home visit 03/08/2024 10:00 AM EDT Home Care Visit [facility] [address] [facility] [place] [address] Veto, Piedad, ORCHESTRA MUSICIAN [address] [place] [address] [facility] Comment on above: [id number] Start: 03-07-2024 End: 03-07-2024 Home visit [facility] Comment on above: [id number] L hip ORIF, WBAT [id number] Start: 03-04-2024 End: 03-04-2024 ambulatory 03/04/2024 1:00 PM EDT [facility] Hematology/Oncology [address] [address] INJECTION: [facility] Hematology/Oncology Comment on above: INJECTION: [place]x Start: 03-04-2024 End: 03-04-2024 Follow-up encounter 03/04/2024 11:40 AM EDT Visit (SP) Office Hematology/Oncology [address] [address] [place] [address] [place] [address] Breast FOLLOW UP Hematology/Oncology Comment on above: Breast FOLLOW UP Start: 03-03-2024 End: 03-03-2024 Home visit [facility] Comment on above: [id number] L hip ORIF, WBAT Start: 03-02-2024 End: 03-02-2024 Home visit [facility] Comment on above: [id number], Nandini/. 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 Start: 03-01-2024 End: 03-01-2024 Home visit [facility] Comment on above: [id number] L hip ORIF, WBAT Start: 02-26-2024 End: 02-26-2024 Home visit 02/26/2024 1:00 PM EDT Home Care Visit [facility] [address] [place] [address] Delicia Lazo, PT [address] [place] [address] L hip ORIF, WBAT [facility] Comment on above: [id number] L hip ORIF, WBAT Start: 02-25-2024 End: 02-25-2024 Home visit [facility] Comment on above: [id number] CM [place] June luate and treat for chronic disease management & education, medication management & education and wound/skin management & education. PRESLEY [address] OTE 02/23-02/27 T BRANDY [address] CM [place] 02/03-02/26 Evaluate and treat for chronic disease management & education, medication management & education and wound/skin management & education. PRESLEY *Assign all follow up nursing visits to Akil Blevins Start: 02-24-2024 End: 02-24-2024 Home visit 02/24/2024 6:30 AM EDT Home Care Visit [facility] [address] [facility] [id number] OTE T BRANDY [facility] Comment on above: [id number] OTE T BRANDY Start: 02-23-2024 End: 02-23-2024 Patient encounter procedure 02/23/2024 12:00 PM EDT Appointment [facility] [address] [facility] [place] [address] Bianca Montalvo, PT [address] [facility] [id number] CM S Calvin Huddleston [id number] 02/22/24 s/p left ORIF [facility] Care Comment on above: [id number] CM S Calvin Huddleston [id number] 02/22/24 s/p left ORIF Start: 01-17-[address] [facility] Start: 01-16-2024 Administration of bl ood product [facility] Start: 01-15-2024 Care of central veno us catheter [facility] Start: 01-13-2024 Provision of overbed trapeze [facility] Start: 01-13-2024 Recommendation to continue with treatment [facility] Start: 01-13-2024 Ambulation therapy management [facility] Start: 01-13-2024 Application of device W [facility] Start: 01-13-2024 Assessment of risk o f venous thromboembolism [facility] Start: 01-13-2024 Catheterization of vein [facility] Start: 01-13-2024 Exercises [facility] Start: 01-13-2024 Following clinical pathway protocol [facility] Start: 01-13-[address] [facility] Start: 01-13-2024 Introduction of urin sheryl catheter [facility] Start: 01-13-2024 Measuring intake and output [facility] Start: 01-13-2024 Neurovascular assessment [facility] Start: 01-13-[address] [facility] Start: 01-13-2024 Procedure discontinued [facility] Start: 01-13-2024 Provision of activit y privileges [facility] Start: 01-13-2024 Referral to occupati onal therapist [facility] Start: 01-13-2024 Referral to service [facility] Start: 01-13-2024 Vital signs measurements [facility] Start: 01-13-2024 Wound care [facility] Start: 01-13-2024 [facility] Start: 01-12-2024 Oxygen therapy [facility] Start: 01-12-2024 Application of intermittent pneumatic compression device [facility] Start: 01-12-2024 Following clinical pathway protocol [facility] Start: 01-12-2024 Assessment of risk o f venous thromboembolism [facility] Start: 01-12-2024 Consultation [facility] Start: 01-12-2024 Insertion of cathete r into peripheral vein [facility] Start: 01-12-2024 Providing care accor ding to standard [facility] Start: 01-12-2024 Provision of activit y privileges [facility] Start: 01-12-2024 Referral to occupati onal therapist [facility] Start: 01-12-2024 Referral to service [facility] Start: 01-12-2024 [facility] Start: 01-12-[address] [facility] Start: 01-12-2024 Admission procedure [facility] Start: 01-12-2024 Hospital admission, emergency, from emergency room, medical nature [facility] Start: 01-12-2024 [facility] Start: 01-12-2024 Bacteria identified in Urine by Culture [facility] Start: 10-27-2023 Shingrix Vaccine (2 of 2) Parson grix Vaccine (2 of 2) [facility] Start: 10-05-2023 Advance Directive Discussion Advance Directive Discussion [facility] Start: 10-05-2023 Behavioral Health Screening Behavioral Health Screening [facility] Start: 10-05-2023 Depression Assessment Depression Ass essment [facility] Start: 06-05-2023 Covid-19 Vaccine (4 - 2023-24 season) Covid-19 Vaccine (2022- season) [facility] Start: 06-05-2023 Influenza vaccination [facility] Start: 03-08-2023 Blood chemistry [facility] Start: 03-08-2023 Smpl repair scalp/neck/ax/genit/trunk 2.6-7.5cm RPR S/N/AX/GEN/TRNK2.6-7.5C M [facility] Start: 10-05-2022 ADVANCE DIRECTIVE DISCUSSION ADVANCE DIRECTIVE DISCUSSION [facility] Start: 10-05-2022 DEPRESSION ASSESSMENT DEPRESSION ASS ESSMENT [facility] Start: 08-05-2022 Referral to service [facility] Work Phone: Start: 08-05-2022 Suicide precautions [facility] Work Phone: Start: 06-05-2022 Influenza vaccination [facility] Start: 11-05-2021 COVID-19 VACCINE (4 - Booster for Pfizer series) COVID-19 VACCINE (4 - Booster for Pfizer series) [facility] Start: 10-05-2021 ADVANCE DIRECTIVE DISCUSSION ADVANCE DIRECTIVE DISCUSSION [facility] Start: 10-05-2021 COVID-19 VACCINE (4 - Booster for Pfizer series) COVID-19 VACCINE (4 - Booster for Pfizer series) [facility] Start: 10-05-2021 DEPRESSION ASSESSMENT DEPRESSION ASS ESSMENT [facility] Start: 08-30-2021 COVID-19 VACCINE (4 - Booster for Pfizer series) COVID-19 VACCINE (4 - Booster for Pfizer series) [facility] Start: 08-30-2021 COVID-19 VACCINE (4 - Pfizer series) COVID-19 VACCINE (4 - Pfizer series) [facility] Start: 02-20-2021 COVID-19 Vaccine (3 - Booster for Pfizer series) COVID-19 Vaccine (3 - Booster for Pfizer series) [facility] Start: 2005 BONE DENSITY BONE DENSITY [facility] Start: 2005 Bone Density Screening Bone Density Screening [facility] Start: 2005 Screening for osteoporosis Bone Density Screening [facility] Start: 2000 RSV Vaccine (1 - 1-d ose 60+ series) RSV Vaccine (1 - 1-dose 60+ series) [facility] Start: 1990 SHINGRIX VACCINE (1 of 2) PARSON GRIX VACCINE (1 of 2) [facility] Start: 1990 Zoster Vaccines (1 of 2) Zoste r Vaccines (1 of 2) [facility] Start: 1959 DTaP/Tdap/Td Vaccine s (1 - Tdap) DTaP/Tdap/Td Vaccines (1 - Tdap) [facility] Start: 1959 SHINGRIX VACCINE (1 of 2) PARSON GRIX VACCINE (1 of 2) [facility] Start: 1959 Urine microalbumin profile [facility] Start: 1952 Depression Screening Depression Scre ening [facility] Start: 1940 Lipid panel Lipid Panel [facility] Start: 1940 Screening for osteoporosis Bone Density Scan [facility] Anion gap measurement [facility] BUN/Creatinine ratio [facility] Calcium [Mass/volume ] in Serum or Plasma [facility] Carbon dioxide, tota l [Moles/volume] in Serum or Plasma [facility] End: 09-05-2023 CBC panel - Blood by Automated count CBC Lab Routine Cancer of breast, intraductal, left Every 3 months for 6 Occurrences starting 09/05/2022 until 09/05/2023 [facility] Work Phone: Comment on above: Every 3 months for 6 Occurrences starting 09/05/2022 until 09/05/2023 End: 03-04-2024 CBC W Auto Differential panel - Blood CBC + DIFF Lab STAT Malignant neoplasm of female breast, unspecified estrogen receptor status, unspecified laterality, unspecified site of breast (HCC) Once per month for 15 Occurrences starting 03/05/2023 until 03/04/2024, 1 completed [facility] Work Phone: Comment on above: Once per month for 1 5 Occurrences starting 03/05/2023 until 03/04/2024, 1 completed End: 03-31-2025 CBC W Auto Differential panel - Blood COMPLETE BLOOD COUNT AND DIFFERENTIAL Lab Routine Cancer of breast, intraductal, left Once per month for 15 Occurrences starting 03/31/2024 until 03/31/2025, 2 completed [facility] Work Phone: Comment on above: Once per month for 1 5 Occurrences starting 03/31/2024 until 03/31/2025, 2 completed End: 04-13-2026 CBC W Auto Differential panel - Blood COMPLETE BLOOD COUNT AND DIFFERENTIAL Lab STAT 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, estrogen receptor positive, unspecified laterality, unspecified site of breast (HCC) Once per month for 12 Occurrences starting 04/13/2025 until 04/13/2026 [facility] Work Phone: Comment on above: Once per month for 1 2 Occurrences starting 04/13/2025 until 04/13/2026 Chloride [Moles/volu me] in Serum or Plasma [facility] End: 09-05-2023 Comprehensive metabolic 2000 panel - Serum or Plasma COMP METABOLIC PANEL Lab Routine Cancer of breast, intraductal, left Every 3 months for 6 Occurrences starting 09/05/2022 until 09/05/2023 [facility] Work Phone: Comment on above: Every 3 months for 6 Occurrences starting 09/05/2022 until 09/05/2023 End: 03-04-2024 Comprehensive metabolic 2000 panel - Serum or Plasma COMP METABOLIC PANEL Lab STAT Malignant neoplasm of female breast, unspecified estrogen receptor status, unspecified laterality, unspecified site of breast (HCC) Once per month for 15 Occurrences starting 03/05/2023 until 03/04/2024, 1 completed [facility] Work Phone: Comment on above: Once per month for 1 5 Occurrences starting 03/05/2023 until 03/04/2024, 1 completed End: 03-31-2025 Comprehensive metabolic 2000 panel - Serum or Plasma COMPREHENSIVE METABOLIC PANEL Lab Routine Cancer of breast, intraductal, left Once per month for 15 Occurrences starting 03/31/2024 until 03/31/2025, 2 completed [facility] Comment on above: Once per month for 1 5 Occurrences starting 03/31/2024 until 03/31/2025, 2 completed End: 04-13-2026 Comprehensive metabolic 2000 panel - Serum or Plasma COMPREHENSIVE METABOLIC PANEL Lab STAT 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, estrogen receptor positive, unspecified laterality, unspecified site of breast (HCC) Once per month for 12 Occurrences starting 04/13/2025 until 04/13/2026 [facility] Comment on above: Once per month for 1 2 Occurrences starting 04/13/2025 until 04/13/2026 Creatinine [Moles/vo lume] in Serum or Plasma [facility] End: 06-09-2023 Ct abdomen & pelvis w/contrast material CT ABD/PEL W IVCON Radiology Routine Malignant neoplasm of female breast, unspecified estrogen receptor status, unspecified laterality, unspecified site of breast (HCC) 1 Occurrences starting 05/10/2022 until 06/09/2023 [facility] Work Phone: Comment on above: 1 Occurrences starti ng 05/10/2022 until 06/09/2023 End: 06-09-2023 CT CHEST W IVCON CT CHEST W IVCON Radiology Routine Malignant neoplasm of female breast, unspecified estrogen receptor status, unspecified laterality, unspecified site of breast (HCC) 1 Occurrences starting 05/10/2022 until 06/09/2023 [facility] Work Phone: Comment on above: 1 Occurrences starti ng 05/10/2022 until 06/09/2023 Glucose [Mass/volume ] in Serum or Plasma [facility] Hematocrit [Volume Fraction] of Blood [facility] Hemoglobin [Mass/vol ume] in Blood [facility] Leukocytes [#/volume ] in Blood [facility] Mean corpuscular hemoglobin concentration determination [facility] Mean corpuscular hemoglobin determination [facility] Measurement of renal function [facility] Neutrophil count [facility] Neutrophil percent differential count [facility] Patient Education ED Laceration Extremity [facility] Work Phone: Patient referral [facility] Work Phone: Platelets [#/volume] in Blood [facility] Potassium [Moles/vol ume] in Serum or Plasma [facility] Red blood cell count [facility] Red cell distributio n width determination [facility] Sodium [Moles/volume ] in Serum or Plasma [facility] Urea nitrogen [Mass/volume] in Serum or Plasma [facility] Immunizations Immunization Date Immunization Notes Care Provider Shira garza 08-07-2023 influenza (HD-IIV4) vaccine, age 65+ yr, high dose, quadrivalent, PF (FLUZONE HIGH-DOSE) Injection Work Phone: [facility] 08-07-2023 influenza virus vacc ine, unspecified formulation Injection Work Phone: [facility] 03-08-2023 tetanus toxoid, redu jayce diphtheria toxoid, and acellular pertussis vaccine, adsorbed [facility] 12-26-2020 COVID-19 vaccine, ag e 12+ yr (PFIZER-BIONTECH - PURPLE TOP) Leonid Graham MD Work Phone: [facility] Work Phone: 12-05-2020 COVID-19 vaccine, ag e 12+ yr (PFIZER-BIONTECH - PURPLE TOP) Leonid Graham MD Work Phone: [facility] Work Phone: 08-05-2020 influenza, high-dose , quadrivalent vaccine (FLUZONE HIGH DOSE QUADRIVALENT) Leonid Graham MD Work Phone: [facility] 08-05-2020 influenza virus vacc ine, unspecified formulation Ailin Stanley RN [facility] 08-01-2019 influenza, injectabl e, quadrivalent, preservative free Leonid Graham MD Work Phone: [facility] 06-26-2015 pneumococcal conjuga te vaccine, 13 valent Leonid Graham MD Work Phone: [facility] 02-08-2007 pneumococcal polysaccharide vaccine, 23 valent Leonid Graham MD Work Phone: [facility] Payers Date Payer Category Payer Self-pay [id number] 2023 Medicare MMO MEDICARE MMO MEDADVANTAGE HMO [id number] 2023-Present [phone] [address] [place] [address] O [id number] 2023 Medicare (Managed Care) MMO ERICA DVANTAGE HMO [id number] 2023 Unknown [id number] 2020 Unknown ANTHEM BLUE CROS S AND BLUE SHIELD ANTHEM MEDIBLUE ACCESS [id number] 2020-Present [phone] [id number] [place] [address] PPO [id number] 2020 Unknown ANTHEM BLUE CROS S AND BLUE SHIELD ANTHEM MEDIBLUE ACCESS [id number] 2020-Present [phone] [address] [place] [address] PPO [id number] 2015 Medicare ANTHEM MEDICARE PPO [id number] Unknown [id number] Unknown [id number] Unknown [id number] Unknown [id number] Unknown [id number] Unknown [id number] Unknown [id number] Unknown [id number] Social History Date Type Detail Facility Start: 09-28-2012 End: 12-20-2013 Tobacco smoking status [facility] Ex-smoker [facility] Start: 12-20-2005 History of tobacco use Smoker [facility] Start: 09-28-2012 End: 12-20-2013 Tobacco use and exposure Smokeless tobacco non-user [facility] Start: 06-17-2021 End: 01-18-2024 Alcohol intake Current non-drinker of alcohol (finding) [facility] Start: 08-04-2020 History SDOH Financial 5 [facility] Start: 08-04-2020 History SDOH Food Worry 1 [facility] Start: 08-04-2020 History SDOH Transpo rt Med 2 [facility] Start: 1940 Sex Assigned At Not on file [facility] Start: 12-14-2021 End: 08-21-2022 Exposure to SARS-CoV-2 (event) Not sure [facility] Start: 12-20-2005 History of tobacco use Cigarette Smo ker [facility] Start: 08-05-2022 End: 01-12-2024 Tobacco smoking status [facility] Unknown if ever smoked [facility] Start: 1940 Sex Assigned At Female W [facility] Start: 03-09-2023 End: 07-22-2024 History of Social function [facility] Work Phone: Start: 03-09-2023 End: 07-22-2024 Tobacco use panel [facility] Work Phone: Start: 09-05-2012 How hard is it for y ou to pay for the very basics like food, housing, medical care, and heating Not hard at all [facility] Work Phone: (I/We) worried wheth er (my/our) food would run out before (I/we) got money to buy more. Never true [facility] Work Phone: Has the [employer], [employer], or water [employer] threatened to shut off services in your home in past 12Mo No [facility] NEGATED: Highlighted row [facility] Medical Equipment Procedure Code Equipment Code Equipment Origin al Text Equipment Identifier Dates TRIGEN L-P SCREW FDA Start: 01-13-2024 Femur nail [id number] FDA Start: 01-13-2024 ([id number]) Orthopaedic bone screw, non-bioabsorbable, sterile [id number] FDA Start: 01-13-2024 Goals Date Patient Goal Desired Activity /State Functional Status Date Assessment Result Facility 02-19-2024 Are you deaf, or do you have serious difficulty hearing No 02/19/2024 9:31 AM Isabella Smith RN No [facility] 02-19-2024 Are you blind, or do you have serious difficulty seeing, even when wearing glasses No 02/19/2024 9:31 AM Isabella Smith RN No [facility] 02-19-2024 Do you have serious difficulty walking or climbing stairs Yes 02/19/2024 9:31 AM Isabella Smith RN Yes [facility] 02-19-2024 Do you have difficul ty dressing or bathing Yes 02/19/2024 9:31 AM Isabella Smith RN Yes [facility] 02-19-2024 Because of a physica l, mental, or emotional condition, do you have difficulty doing errands alone such as visiting a physician's office or shopping Yes 02/19/2024 9:31 AM EDT Isabella Harrison RN Yes [facility] 01-17-2024 Functional status Bedrest [facility] Work Phone: Mental Status Date Assessment Result Facility 02-19-2024 Because of a physica l, mental, or emotional condition, do you have serious difficulty concentrating, remembering, or making decisions Yes 02/19/2024 9:31 AM EDT Isabella Harrison RN Yes [facility] 01-17-2024 Cognitive function Voice/Name;To [facility] Work Phone: 08-05-2022 Cognitive function Voice/Name [facility] Work Phone: Clinical Notes 01-06-2022 to 08-09-2025 Leonid Graham MD - 06/15/2025 5:15 PM Elle Carlos APRN.[facility] - 06/14/2025 4:03 PM Leonid Salazar MD - 05/14/2025 3:55 PM Elle Carlos APRN.[facility] - 04/13/2025 3:33 PM EDT Note Date & Type Note Facility 08-09-2025 Note HNO ID: [id number] Author: JANETT BETANCOURT APRN.[facility] Service: ? Author Type: Nurse Practitioner Type: Progress Notes Filed: 08/10/2025 08:20 Note Text: August 09, 2025 4:[address] Graham patient Order for Fulvestrant signed for today to facilitate treatment Janett Betancourt APRN.[facility] 07-12-2025 Note HNO ID: [id number] Author: JANETT BETANCOURT APRN.CNP Service: ? Author Type: Nurse Practitioner Type: Progress Notes Filed: 07/13/2025 08:11 Note Text: July 12, 2025 3:[address] Graham patient Order for Faslodex signed for today to facilitate treatment Janett Betancourt APRN.[facility] 06-15-2025 Note HNO ID: [id number] Author: LEONID GRAHAM MD Service: ? Author Type: Physician Type: Progress Notes Filed: 06/15/2025 17:18 Note Text: The patient is a 84-year-old female. Status post left-sided lumpectomy in 2006 for left-sided breast cancer. Received adjuvant chemotherapy followed by radiation followed by 5 years of Arimidex that was completed in 2012. 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 This was biopsied and found to be consistent with ER positive/99%, MI +90% and HER2 negative by IHC. The patient was diagnosed with relapse in 2019. A PET scan showed uptake in the right iliac bone near the SI joint, there is also some questionable bilateral hilar lymphadenopathy at that time. The patient was started on Faslodex along with palbociclib. Subsequently was given radiation to the area of solitary metastasis in the right iliac bone. We did palbociclib for a total of 2 years. Patient was having issues with excessive fatigue. No progression identified and hence decided to stop this and continue with the Faslodex. The patient has issues with dementia now. However is tolerating the Faslodex relatively well. Family has decided not to put her through CAT scans. The patient is currently doing relatively well. On Faslodex alone. No other acute issues. Physical Examination:BP 174/80 Pulse 60 Temp 36.6 ?C (97.9 ?F) Resp 16 Wt 67.2 kg (148 lb 2.4 oz) SpO2 98% BMI 26.24 kg/m? The patient was awake alert oriented. Didn't appear to be in acute distress. HEENT: No pallor, icterus, cyanosis, oral cavity shows no evidence of mucositis, lesions, or ulcers. Trachea midline. No JVD, carotid bruit, thyromegaly, cervical lymphadenopathy or supra-infraclavicular lymphadenopathy. CVS: S1-S2 heard no S3 no murmurs or pericardial rub. No peripheral edema. Lungs: Chest wall nontender. No dullness to percussion. Clear to auscultation bilaterally. No rhonchi or rales noted. No pleural rub or at it sounds noted. Abdomen: Normal inspection, nondistended no dilated veins. Soft nontender no organomegaly. No palpable masses noted. Hem/ Lymph: No peripheral lymphadenopathy or any palpable masses. Neuro Exam: High mental functions were normal. Cranial nerves II through XII are normal. No gross abnormality noted on sensory or motor system exam. Musculoskeletal: No joint deformities noted. No evidence of synovitis, swelling or tenderness in the joints or bursitis. Skin: No evidence to suggest any bruising, ecchymosis, petechiae and symptoms of hand-foot syndrome. Breast examination: Mass palpable in the inferior aspect of the left breast and earlier exam. No lymphadenopathy in the left axilla. Right breast normal inspection and palpation. Latest Reference Range AND Units 06/14/25 10:08 Sodium 136 - 144 mmol/L 141 Potassium 3.7 - 5.1 mmol/L 4.0 Chloride 98 - 107 mmol/L 105 CO2 22 - 30 mmol/L 25 BUN 7 - 21 mg/dL 22 (H) Creatinine 0.58 - 0.96 mg/dL 1.12 (H) Glucose 74 - 99 mg/dL 98 Protein, Total 6.3 - 8.0 g/dL 7.5 Calcium 8.5 - 10.2 mg/dL 9.1 Albumin 3.9 - 4.9 g/dL 3.6 (L) Bilirubin, Total 0.2 - 1.3 mg/dL 0.4 Alkaline Phosphatase 34 - 123 U/L 117 ALT 7 - 38 U/L 11 AST 13 - 35 U/L 14 Anion Gap 8 - 15 mmol/L 11 (H): Data is abnormally high (L): Data is abnormally low Latest Reference Range AND Units 06/14/25 10:08 WBC 3.70 - 11.00 k/uL 6.28 RBC 3.90 - 5.20 m/uL 3.99 Hemoglobin 11.5 - 15.5 g/dL 12.7 Hematocrit 36.0 - 46.0 % 38.7 Platelet Count 150 - 400 k/uL 205 MCV 80.0 - 100.0 fL 97.0 MCH 26.0 - 34.0 pg 31.8 MCHC 30.5 - 36.0 g/dL 32.8 MPV 9.0 - 12.7 fL 11.0 RDW-CV 11.5 - 15.0 % 13.2 DTYPE Auto Assesment 1. 84-year-old female with a diagnosis of metastatic breast cancer. Patient was treated with Faslodex and Ibrance for 2 years. No progression of disease identified. On single agent Faslodex alone. 2. Due to dementia decision was made not to scan the patient and continue with the Faslodex and do symptom management and assessment. 3. At this time her labs reviewed. Her LFTs normal. Alkaline phosphatase normal. No physical symptoms of progression noted. Continue with Faslodex. Leonid Graham MD [facility] 06-15-2025 History of Presen t illness Narrative The patient is a 84-year-old female. Status post left-sided lumpectomy in 2006 for left-sided breast cancer. Received adjuvant chemotherapy followed by radiation followed by 5 years of Arimidex that was completed in 2012. 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 This was biopsied and found to be consistent with ER positive/99%, MI +90% and HER2 negative by IHC. The patient was diagnosed with relapse in 2019. A PET scan showed uptake in the right iliac bone near the SI joint, there is also some questionable bilateral hilar lymphadenopathy at that time. The patient was started on Faslodex along with palbociclib. Subsequently was given radiation to the area of solitary metastasis in the right iliac bone. We did palbociclib for a total of 2 years. Patient was having issues with excessive fatigue. No progression identified and hence decided to stop this and continue with the Faslodex. The patient has issues with dementia now. However is tolerating the Faslodex relatively well. Family has decided not to put her through CAT scans. The patient is currently doing relatively well. On Faslodex alone. No other acute issues. Physical Examination:BP 174/80 Pulse 60 Temp 36.6 C (97.9 F) Resp 16 Wt 67.2 kg (148 lb 2.4 oz) SpO2 98% BMI 26.24 kg/m The patient was awake alert oriented. Didn't appear to be in acute distress. HEENT: No pallor, icterus, cyanosis, oral cavity shows no evidence of mucositis, lesions, or ulcers. Trachea midline. No JVD, carotid bruit, thyromegaly, cervical lymphadenopathy or supra-infraclavicular lymphadenopathy. CVS: S1-S2 heard no S3 no murmurs or pericardial rub. No peripheral edema. Lungs: Chest wall nontender. No dullness to percussion. Clear to auscultation bilaterally. No rhonchi or rales noted. No pleural rub or at it sounds noted. Abdomen: Normal inspection, nondistended no dilated veins. Soft nontender no organomegaly. No palpable masses noted. Hem/ Lymph: No peripheral lymphadenopathy or any palpable masses. Neuro Exam: High mental functions were normal. Cranial nerves II through XII are normal. No gross abnormality noted on sensory or motor system exam. Musculoskeletal: No joint deformities noted. No evidence of synovitis, swelling or tenderness in the joints or bursitis. Skin: No evidence to suggest any bruising, ecchymosis, petechiae and symptoms of hand-foot syndrome. Breast examination: Mass palpable in the inferior aspect of the left breast and earlier exam. No lymphadenopathy in the left axilla. Right breast normal inspection and palpation. Latest Reference Range & Units 06/14/25 10:08 Sodium 136 - 144 mmol/L 141 Potassium 3.7 - 5.1 mmol/L 4.0 Chloride 98 - 107 mmol/L 105 CO2 22 - 30 mmol/L 25 BUN 7 - 21 mg/dL 22 (H) Creatinine 0.58 - 0.96 mg/dL 1.12 (H) Glucose 74 - 99 mg/dL 98 Protein, Total 6.3 - 8.0 g/dL 7.5 Calcium 8.5 - 10.2 mg/dL 9.1 Albumin 3.9 - 4.9 g/dL 3.6 (L) Bilirubin, Total 0.2 - 1.3 mg/dL 0.4 Alkaline Phosphatase 34 - 123 U/L 117 ALT 7 - 38 U/L 11 AST 13 - 35 U/L 14 Anion Gap 8 - 15 mmol/L 11 (H): Data is abnormally high (L): Data is abnormally low Latest Reference Range & Units 06/14/25 10:08 WBC 3.70 - 11.00 k/uL 6.28 RBC 3.90 - 5.20 m/uL 3.99 Hemoglobin 11.5 - 15.5 g/dL 12.7 Hematocrit 36.0 - 46.0 % 38.7 Platelet Count 150 - 400 k/uL 205 MCV 80.0 - 100.0 fL 97.0 MCH 26.0 - 34.0 pg 31.8 MCHC 30.5 - 36.0 g/dL 32.8 MPV 9.0 - 12.7 fL 11.0 RDW-CV 11.5 - 15.0 % 13.2 DTYPE Auto Assesment 1. 84-year-old female with a diagnosis of metastatic breast cancer. Patient was treated with Faslodex and Ibrance for 2 years. No progression of disease identified. On single agent Faslodex alone. 2. Due to dementia decision was made not to scan the patient and continue with the Faslodex and do symptom management and assessment. 3. At this time her labs reviewed. Her LFTs normal. Alkaline phosphatase normal. No physical symptoms of progression noted. Continue with Faslodex. Leoind Graham MD documented in this encounter [facility] 06-14-2025 Note HNO ID: [id number] Author: ELLE MARVIN APRN.[facility] Service: ? Author Type: Nurse Practitioner Type: Progress Notes Filed: 06/15/2025 09:33 Note Text: Dr. Graham patient. Order for Faslodex signed to facilitate treatment. Elle Marvin APRN.CNP [facility] 06-14-2025 History of Presen t illness Narrative Dr. Graham patient. Order for Faslodex signed to facilitate treatment. Elle Marvin APRN.DRYING ROOM OPERATOR documented in this encounter [facility] 05-14-2025 Note HNO ID: [id number] Author: LEONID GRAHAM MD Service: ? Author Type: Physician Type: Progress Notes Filed: 05/14/2025 15:55 Note Text: Apt was rescheduled. Leonid Graham MD [facility] 05-14-2025 History of Presen t illness Narrative Apt was rescheduled. Leonid Graham MD documented in this encounter [facility] 05-10-2025 Note HNO ID: [id number] Author: ELLE MARVIN APRN.DRYING ROOM OPERATOR Service: ? Author Type: Nurse Practitioner Type: Progress Notes Filed: 05/12/2025 10:00 Note Text: Dr. Graham patient. Order for faslodex signed to facilitate treatment. Elle Marvin APRN.CNP [facility] 04-13-2025 Note HNO ID: [id number] Author: ELLE MARVIN APRN.CNP Service: ? Author Type: Nurse Practitioner Type: Progress Notes Filed: 04/14/2025 07:55 Note Text: Dr. Graham patient. Order for faslodex signed to facilitate treatment. Elle Marvin APRN.CNP [facility] 04-13-2025 History of Presen t illness Narrative Dr. Graham patient. Order for faslodex signed to facilitate treatment. Elle Marvin APRN.CNP documented in this encounter [facility] 04-13-2025 Telephone encounter Note Spoke with daughter and let her know labs were placed. Verbalized understanding. Julio Simms [facility] 04-13-2025 Miscellaneous Notes Spoke with daughter and let her know labs were placed. Verbalized understanding. Julio Simms Orders placed. Patients daughter called into the office. Daughter is asking for labs orders to be placed prior to her mothers injection appointment tomorrow on 04/14/2025. Julio Simms documented in this encounter [facility] 04-13-2025 Telephone encounter Note Orders placed. [facility] 04-13-2025 Telephone encounter Note Patients daughter called into the office. Daughter is asking for labs orders to be placed prior to her mothers injection appointment tomorrow on 04/14/2025. Julio Simms [facility] 03-16-2025 Note HNO ID: [id number] Author: ELLE MARVIN APRN.CNP Service: ? Author Type: Nurse Practitioner Type: Progress Notes Filed: 03/17/2025 08:16 Note Text: Dr. Graham patient. Order for faslodex signed to facilitate treatment. Elle Marvin APRN.CNP [facility] 03-16-2025 History of Presen t illness Narrative Dr. Graham patient. Order for faslodex signed to facilitate treatment. Elle Marvin APRN.CNP documented in this encounter [facility] 02-16-2025 Note HNO ID: [id number] Author: ELLE MARVIN APRN.CNP Service: ? Author Type: Nurse Practitioner Type: Progress Notes Filed: 02/17/2025 07:56 Note Text: Dr. Graham patient. Order for faslodex signed to facilitate treatment. Elle Marvin APRN.CNP [facility] 02-16-2025 History of Presen t illness Narrative Dr. Graham patient. Order for faslodex signed to facilitate treatment. Elle Marvin APRN.CNP documented in this encounter [facility] 01-20-2025 Note HNO ID: [id number] Author: LEONID GRAHAM MD Service: ? Author Type: Physician Type: Progress Notes Filed: 01/20/2025 09:40 Note Text: The patient is a 84-year-old female. Status post left-sided lumpectomy in 2006 for left-sided breast cancer. Received adjuvant chemotherapy followed by radiation followed by 5 years of Arimidex that was completed in 2012. 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 This was biopsied and found to be consistent with ER positive/99%, MI +90% and HER2 negative by IHC. The patient was diagnosed with relapse in 2019. A PET scan showed uptake in the right iliac bone near the SI joint, there is also some questionable bilateral hilar lymphadenopathy at that time. The patient was started on Faslodex along with palbociclib. Subsequently was given radiation to the area of solitary metastasis in the right iliac bone. We did palbociclib for a total of 2 years. Patient was having issues with excessive fatigue. No progression identified and hence decided to stop this and continue with the Faslodex. The patient has issues with dementia now. However is tolerating the Faslodex relatively well. Family has decided not to put her through CAT scans. The patient is currently doing relatively well. On Faslodex alone. No other acute issues. Physical Examination:BP 168/70 Pulse 62 Temp 36.6 ?C (97.9 ?F) (Temporal) Resp 12 Wt 71.4 kg (157 lb 6.5 oz) SpO2 98% BMI 27.88 kg/m? The patient was awake alert oriented. Didn't appear to be in acute distress. HEENT: No pallor, icterus, cyanosis, oral cavity shows no evidence of mucositis, lesions, or ulcers. Trachea midline. No JVD, carotid bruit, thyromegaly, cervical lymphadenopathy or supra-infraclavicular lymphadenopathy. CVS: S1-S2 heard no S3 no murmurs or pericardial rub. No peripheral edema. Lungs: Chest wall nontender. No dullness to percussion. Clear to auscultation bilaterally. No rhonchi or rales noted. No pleural rub or at it sounds noted. Abdomen: Normal inspection, nondistended no dilated veins. Soft nontender no organomegaly. No palpable masses noted. Hem/ Lymph: No peripheral lymphadenopathy or any palpable masses. Neuro Exam: High mental functions were normal. Cranial nerves II through XII are normal. No gross abnormality noted on sensory or motor system exam. Musculoskeletal: No joint deformities noted. No evidence of synovitis, swelling or tenderness in the joints or bursitis. Skin: No evidence to suggest any bruising, ecchymosis, petechiae and symptoms of hand-foot syndrome. Breast examination deferred. Latest Reference Range AND Units 01/19/25 07:51 Sodium 136 - 144 mmol/L 143 Potassium 3.7 - 5.1 mmol/L 4.3 Chloride 98 - 107 mmol/L 106 CO2 22 - 30 mmol/L 26 BUN 7 - 21 mg/dL 19 Creatinine 0.58 - 0.96 mg/dL 1.04 (H) Glucose 74 - 99 mg/dL 88 Protein, Total 6.3 - 8.0 g/dL 6.8 Calcium 8.5 - 10.2 mg/dL 9.3 Albumin 3.9 - 4.9 g/dL 3.5 (L) Bilirubin, Total 0.2 - 1.3 mg/dL 0.3 Alkaline Phosphatase 34 - 123 U/L 122 ALT 7 - 38 U/L 13 AST 13 - 35 U/L 18 Anion Gap 8 - 15 mmol/L 11 (H): Data is abnormally high Latest Reference Range AND Units 01/19/25 07:51 WBC 3.70 - 11.00 k/uL 7.90 RBC 3.90 - 5.20 m/uL 3.94 Hemoglobin 11.5 - 15.5 g/dL 12.5 Hematocrit 36.0 - 46.0 % 39.0 Platelet Count 150 - 400 k/uL 226 MCV 80.0 - 100.0 fL 99.0 MCH 26.0 - 34.0 pg 31.7 MCHC 30.5 - 36.0 g/dL 32.1 MPV 9.0 - 12.7 fL 11.0 RDW-CV 11.5 - 15.0 % 13.5 DTYPE Auto Neut% % 53.8 Abs Neut (ANC) 1.45 - 7.50 k/uL 4.25 (L): Data is abnormally low Assesment 1. 83-year-old female with a diagnosis of metastatic breast cancer. Patient was treated with Faslodex and Ibrance for 2 years. No progression of disease identified. On single agent Faslodex alone. 2. Due to dementia decision was made not to scan the patient and continue with the Faslodex and do symptom management and assessment. 3. At this time her labs reviewed. Her LFTs normal. Alkaline phosphatase normal. No physical symptoms of progression noted. Continue with Faslodex. Leonid Graham MD [facility] 01-20-2025 History of Presen t illness Narrative The patient is a 84-year-old female. Status post left-sided lumpectomy in 2006 for left-sided breast cancer. Received adjuvant chemotherapy followed by radiation followed by 5 years of Arimidex that was completed in 2012. 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 This was biopsied and found to be consistent with ER positive/99%, MI +90% and HER2 negative by IHC. The patient was diagnosed with relapse in 2019. A PET scan showed uptake in the right iliac bone near the SI joint, there is also some questionable bilateral hilar lymphadenopathy at that time. The patient was started on Faslodex along with palbociclib. Subsequently was given radiation to the area of solitary metastasis in the right iliac bone. We did palbociclib for a total of 2 years. Patient was having issues with excessive fatigue. No progression identified and hence decided to stop this and continue with the Faslodex. The patient has issues with dementia now. However is tolerating the Faslodex relatively well. Family has decided not to put her through CAT scans. The patient is currently doing relatively well. On Faslodex alone. No other acute issues. Physical Examination:BP 168/70 Pulse 62 Temp 36.6 C (97.9 F) (Temporal) Resp 12 Wt 71.4 kg (157 lb 6.5 oz) SpO2 98% BMI 27.88 kg/m The patient was awake alert oriented. Didn't appear to be in acute distress. HEENT: No pallor, icterus, cyanosis, oral cavity shows no evidence of mucositis, lesions, or ulcers. Trachea midline. No JVD, carotid bruit, thyromegaly, cervical lymphadenopathy or supra-infraclavicular lymphadenopathy. CVS: S1-S2 heard no S3 no murmurs or pericardial rub. No peripheral edema. Lungs: Chest wall nontender. No dullness to percussion. Clear to auscultation bilaterally. No rhonchi or rales noted. No pleural rub or at it sounds noted. Abdomen: Normal inspection, nondistended no dilated veins. Soft nontender no organomegaly. No palpable masses noted. Hem/ Lymph: No peripheral lymphadenopathy or any palpable masses. Neuro Exam: High mental functions were normal. Cranial nerves II through XII are normal. No gross abnormality noted on sensory or motor system exam. Musculoskeletal: No joint deformities noted. No evidence of synovitis, swelling or tenderness in the joints or bursitis. Skin: No evidence to suggest any bruising, ecchymosis, petechiae and symptoms of hand-foot syndrome. Breast examination deferred. Latest Reference Range & Units 01/19/25 07:51 Sodium 136 - 144 mmol/L 143 Potassium 3.7 - 5.1 mmol/L 4.3 Chloride 98 - 107 mmol/L 106 CO2 22 - 30 mmol/L 26 BUN 7 - 21 mg/dL 19 Creatinine 0.58 - 0.96 mg/dL 1.04 (H) Glucose 74 - 99 mg/dL 88 Protein, Total 6.3 - 8.0 g/dL 6.8 Calcium 8.5 - 10.2 mg/dL 9.3 Albumin 3.9 - 4.9 g/dL 3.5 (L) Bilirubin, Total 0.2 - 1.3 mg/dL 0.3 Alkaline Phosphatase 34 - 123 U/L 122 ALT 7 - 38 U/L 13 AST 13 - 35 U/L 18 Anion Gap 8 - 15 mmol/L 11 (H): Data is abnormally high Latest Reference Range & Units 01/19/25 07:51 WBC 3.70 - 11.00 k/uL 7.90 RBC 3.90 - 5.20 m/uL 3.94 Hemoglobin 11.5 - 15.5 g/dL 12.5 Hematocrit 36.0 - 46.0 % 39.0 Platelet Count 150 - 400 k/uL 226 MCV 80.0 - 100.0 fL 99.0 MCH 26.0 - 34.0 pg 31.7 MCHC 30.5 - 36.0 g/dL 32.1 MPV 9.0 - 12.7 fL 11.0 RDW-CV 11.5 - 15.0 % 13.5 DTYPE Auto Neut% % 53.8 Abs Neut (ANC) 1.45 - 7.50 k/uL 4.25 (L): Data is abnormally low Assesment 1. 83-year-old female with a diagnosis of metastatic breast cancer. Patient was treated with Faslodex and Ibrance for 2 years. No progression of disease identified. On single agent Faslodex alone. 2. Due to dementia decision was made not to scan the patient and continue with the Faslodex and do symptom management and assessment. 3. At this time her labs reviewed. Her LFTs normal. Alkaline phosphatase normal. No physical symptoms of progression noted. Continue with Faslodex. Leonid Graham MD documented in this encounter [facility] 01-19-2025 Note HNO ID: [id number] Author: ELLE MARVIN APRN.CNP Service: ? Author Type: Nurse Practitioner Type: Progress Notes Filed: 01/20/2025 08:58 Note Text: Dr. Graham patient. Order for faslodex signed to facilitate treatment. Elle Marvin APRN.CNP [facility] 01-19-2025 History of Presen t illness Narrative Dr. Graham patient. Order for faslodex signed to facilitate treatment. Elle Marvin APRN.CNP documented in this encounter [facility] 12-23-2024 Note HNO ID: [id number] Author: ELLE MARVIN APRN.CNP Service: ? Author Type: Nurse Practitioner Type: Progress Notes Filed: 12/23/2024 08:40 Note Text: Dr. Graham patient. Order for faslodex signed to facilitate treatment. Elle Marvin APRN.CNP [facility] 12-23-2024 History of Presen t illness Narrative Dr. Graham patient. Order for faslodex signed to facilitate treatment. Elle Marvin APRN.DRYING ROOM OPERATOR documented in this encounter [facility] 10-24-2024 Note HNO ID: [id number] Author: LEONID GRAHAM MD Service: ? Author Type: Physician Type: Progress Notes Filed: 10/24/2024 16:46 Note Text: The patient is a 82-year-old female. Status post left-sided lumpectomy in 2006 for left-sided breast cancer. Received adjuvant chemotherapy followed by radiation followed by 5 years of Arimidex that was completed in 2012. 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 This was biopsied and found to be consistent with ER positive/99%, MI +90% and HER2 negative by IHC. The patient was diagnosed with relapse in 2019. A PET scan showed uptake in the right iliac bone near the SI joint, there is also some questionable bilateral hilar lymphadenopathy at that time. The patient was started on Faslodex along with palbociclib. Subsequently was given radiation to the area of solitary metastasis in the right iliac bone. We did palbociclib for a total of 2 years. Patient was having issues with excessive fatigue. No progression identified and hence decided to stop this and continue with the Faslodex. The patient has issues with dementia now. However is tolerating the Faslodex relatively well. Family has decided not to put her through CAT scans. The patient is currently doing relatively well. On Faslodex alone. No other acute issues. Physical Examination:BP 148/76 Pulse 61 Temp 36.6 ?C (97.9 ?F) (Temporal) Resp 10 Wt 72.8 kg (160 lb 7.9 oz) SpO2 96% BMI 28.43 kg/m? The patient was awake alert oriented. Didn't appear to be in acute distress. HEENT: No pallor, icterus, cyanosis, oral cavity shows no evidence of mucositis, lesions, or ulcers. Trachea midline. No JVD, carotid bruit, thyromegaly, cervical lymphadenopathy or supra-infraclavicular lymphadenopathy. CVS: S1-S2 heard no S3 no murmurs or pericardial rub. No peripheral edema. Lungs: Chest wall nontender. No dullness to percussion. Clear to auscultation bilaterally. No rhonchi or rales noted. No pleural rub or at it sounds noted. Abdomen: Normal inspection, nondistended no dilated veins. Soft nontender no organomegaly. No palpable masses noted. Hem/ Lymph: No peripheral lymphadenopathy or any palpable masses. Neuro Exam: High mental functions were normal. Cranial nerves II through XII are normal. No gross abnormality noted on sensory or motor system exam. Musculoskeletal: No joint deformities noted. No evidence of synovitis, swelling or tenderness in the joints or bursitis. Skin: No evidence to suggest any bruising, ecchymosis, petechiae and symptoms of hand-foot syndrome. Breast examination deferred. Latest Reference Range AND Units 10/21/24 07:57 Sodium 136 - 144 mmol/L 141 Potassium 3.7 - 5.1 mmol/L 3.7 Chloride 98 - 107 mmol/L 105 CO2 22 - 30 mmol/L 27 BUN 7 - 21 mg/dL 18 Creatinine 0.58 - 0.96 mg/dL 1.07 (H) Glucose 74 - 99 mg/dL 108 (H) Protein, Total 6.3 - 8.0 g/dL 7.0 Calcium 8.5 - 10.2 mg/dL 9.1 Albumin 3.9 - 4.9 g/dL 3.4 (L) Bilirubin, Total 0.2 - 1.3 mg/dL 0.3 Alkaline Phosphatase 34 - 123 U/L 112 ALT 7 - 38 U/L 10 AST 13 - 35 U/L 17 Anion Gap 8 - 15 mmol/L 9 (H): Data is abnormally high (L): Data is abnormally low Latest Reference Range AND Units 10/21/24 07:57 WBC 3.70 - 11.00 k/uL 6.78 RBC 3.90 - 5.20 m/uL 3.87 (L) Hemoglobin 11.5 - 15.5 g/dL 11.9 Hematocrit 36.0 - 46.0 % 36.9 Platelet Count 150 - 400 k/uL 214 MCV 80.0 - 100.0 fL 95.3 MCH 26.0 - 34.0 pg 30.7 MCHC 30.5 - 36.0 g/dL 32.2 MPV 9.0 - 12.7 fL 10.7 RDW-CV 11.5 - 15.0 % 13.7 DTYPE Auto Neut% % 55.9 Abs Neut (ANC) 1.45 - 7.50 k/uL 3.79 (L): Data is abnormally low Assesment 1. 83-year-old female with a diagnosis of metastatic breast cancer. Patient was treated with Faslodex and Ibrance for 2 years. No progression of disease identified. On single agent Faslodex alone. 2. Due to dementia decision was made not to scan the patient and continue with the Faslodex and do symptom management and assessment. 3. At this time her labs reviewed. Her LFTs normal. Alkaline phosphatase normal. No physical symptoms of progression noted. Continue with Faslodex. Leonid Graham MD [facility] 10-24-2024 History of Presen t illness Narrative The patient is a 82-year-old female. Status post left-sided lumpectomy in 2006 for left-sided breast cancer. Received adjuvant chemotherapy followed by radiation followed by 5 years of Arimidex that was completed in 2012. 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 This was biopsied and found to be consistent with ER positive/99%, MI +90% and HER2 negative by IHC. The patient was diagnosed with relapse in 2019. A PET scan showed uptake in the right iliac bone near the SI joint, there is also some questionable bilateral hilar lymphadenopathy at that time. The patient was started on Faslodex along with palbociclib. Subsequently was given radiation to the area of solitary metastasis in the right iliac bone. We did palbociclib for a total of 2 years. Patient was having issues with excessive fatigue. No progression identified and hence decided to stop this and continue with the Faslodex. The patient has issues with dementia now. However is tolerating the Faslodex relatively well. Family has decided not to put her through CAT scans. The patient is currently doing relatively well. On Faslodex alone. No other acute issues. Physical Examination:BP 148/76 Pulse 61 Temp 36.6 C (97.9 F) (Temporal) Resp 10 Wt 72.8 kg (160 lb 7.9 oz) SpO2 96% BMI 28.43 kg/m The patient was awake alert oriented. Didn't appear to be in acute distress. HEENT: No pallor, icterus, cyanosis, oral cavity shows no evidence of mucositis, lesions, or ulcers. Trachea midline. No JVD, carotid bruit, thyromegaly, cervical lymphadenopathy or supra-infraclavicular lymphadenopathy. CVS: S1-S2 heard no S3 no murmurs or pericardial rub. No peripheral edema. Lungs: Chest wall nontender. No dullness to percussion. Clear to auscultation bilaterally. No rhonchi or rales noted. No pleural rub or at it sounds noted. Abdomen: Normal inspection, nondistended no dilated veins. Soft nontender no organomegaly. No palpable masses noted. Hem/ Lymph: No peripheral lymphadenopathy or any palpable masses. Neuro Exam: High mental functions were normal. Cranial nerves II through XII are normal. No gross abnormality noted on sensory or motor system exam. Musculoskeletal: No joint deformities noted. No evidence of synovitis, swelling or tenderness in the joints or bursitis. Skin: No evidence to suggest any bruising, ecchymosis, petechiae and symptoms of hand-foot syndrome. Breast examination deferred. Latest Reference Range & Units 10/21/24 07:57 Sodium 136 - 144 mmol/L 141 Potassium 3.7 - 5.1 mmol/L 3.7 Chloride 98 - 107 mmol/L 105 CO2 22 - 30 mmol/L 27 BUN 7 - 21 mg/dL 18 Creatinine 0.58 - 0.96 mg/dL 1.07 (H) Glucose 74 - 99 mg/dL 108 (H) Protein, Total 6.3 - 8.0 g/dL 7.0 Calcium 8.5 - 10.2 mg/dL 9.1 Albumin 3.9 - 4.9 g/dL 3.4 (L) Bilirubin, Total 0.2 - 1.3 mg/dL 0.3 Alkaline Phosphatase 34 - 123 U/L 112 ALT 7 - 38 U/L 10 AST 13 - 35 U/L 17 Anion Gap 8 - 15 mmol/L 9 (H): Data is abnormally high (L): Data is abnormally low Latest Reference Range & Units 10/21/24 07:57 WBC 3.70 - 11.00 k/uL 6.78 RBC 3.90 - 5.20 m/uL 3.87 (L) Hemoglobin 11.5 - 15.5 g/dL 11.9 Hematocrit 36.0 - 46.0 % 36.9 Platelet Count 150 - 400 k/uL 214 MCV 80.0 - 100.0 fL 95.3 MCH 26.0 - 34.0 pg 30.7 MCHC 30.5 - 36.0 g/dL 32.2 MPV 9.0 - 12.7 fL 10.7 RDW-CV 11.5 - 15.0 % 13.7 DTYPE Auto Neut% % 55.9 Abs Neut (ANC) 1.45 - 7.50 k/uL 3.79 (L): Data is abnormally low Assesment 1. 83-year-old female with a diagnosis of metastatic breast cancer. Patient was treated with Faslodex and Ibrance for 2 years. No progression of disease identified. On single agent Faslodex alone. 2. Due to dementia decision was made not to scan the patient and continue with the Faslodex and do symptom management and assessment. 3. At this time her labs reviewed. Her LFTs normal. Alkaline phosphatase normal. No physical symptoms of progression noted. Continue with Faslodex. Leonid Graham MD documented in this encounter [facility] 10-21-2024 Note HNO ID: [id number] Author: JANETT BETANCOURT APRN.AFSHIN Service: ? Author Type: Nurse Practitioner Type: Progress Notes Filed: 10/24/2024 09:18 Note Text: October 21, 2024 3:[address] Graham patient Order for Faslodex signed for today to facilitate treatment on Thursday Janett Betancourt APRN.AFSHIN [facility] 10-21-2024 History of Presen t illness Narrative October 21, 2024 3:[address] Graham patient Order for Faslodex signed for today to facilitate treatment on Thursday Janett Betancourt APRN.DRYING ROOM OPERATOR documented in this encounter [facility] 09-21-2024 Note HNO ID: [id number] Author: ELLE MARVIN APRN.CNP Service: ? Author Type: Nurse Practitioner Type: Progress Notes Filed: 09/21/2024 09:09 Note Text: Dr. Graham patient. Order for faslodex signed to facilitate treatment. Elle Marvin APRN.CNP [facility] 09-21-2024 History of Presen t illness Narrative Dr. Graham patient. Order for faslodex signed to facilitate treatment. Elle Marvin APRN.DRYING ROOM OPERATOR documented in this encounter [facility] 08-22-2024 Note HNO ID: [id number] Author: ELLE MARVIN APRN.CNP Service: ? Author Type: Nurse Practitioner Type: Progress Notes Filed: 08/22/2024 09:03 Note Text: Dr. Graham patient. Order for faslodex signed to facilitate treatment. Elle Marvin APRN.CNP [facility] 08-22-2024 History of Presen t illness Narrative Dr. Graham patient. Order for faslodex signed to facilitate treatment. Elle Marvin APRN.CNP documented in this encounter [facility] 07-21-2024 History of Presen t illness Narrative July 21, 2024 4:[address] Graham patient Order for Faslodex signed for today to facilitate treatment Janett Betancourt APRN.AFSHIN documented in this encounter [facility] 06-22-2024 History of Presen t illness Narrative Images from the original note were not included. Chief Complaint: Established patient follow up History of Present Illness: Jackelyn is a 83 year old female who presents here today for follow up Feeling OK No new complaints or concerns No breast changes or issues Tolerating Faslodex without any side effects to report working with physical therapy 2-3 times per week Denies fevers or chills No sob or chest pain No bleeding or dark stool No urinary complaints No new lumps or bumps No new pains No rash or itching Hematology/Oncology History: Past medical history is carried forward from previous note: 03/04/2021 and updated appropriately Attending: Dr Graham Diagnosis: Relapse breast cancer with bone mets Treatment History: - ER+/MI+/HER2- - s/p lumpectomy for a left-sided breast cancer in 2006 - received post surgical adjuvant chemotherapy along with radiation followed by 5 years of Arimidex which she completed in 2012 at [place] (no records of the pathology or the treatment details within our system). - was followed by her primary oncologist once a year - presented with acute pain in the left thigh and left groin. - CT ab/pelvis wo IVCON on 08/03/2020 identified a lytic lesion in the right iliac bone with no evidence of any retroperitoneal lymphadenopathy, liver lesions or adrenal lesions. - The patient states having no pain or discomfort along the right hemipelvis. - s/p biopsy of the lytic lesion which confirmed metastatic breast cancer - ER strongly +99%/MI +90%/HER-2 negative by IHC - PET CT on 09/04/2020 showed a focus of intense uptake is identified in the medial right iliac bone near the SI joint, having maximum SUV of 10.5 and corresponding to a small lytic lesion identified in the CT scan measuring approximately 1.3 cm in diameter. In addition, there was questionable bilateral hilar lymphadenopathy with a SUV uptake of around 4.7 and uptake in the right shoulder likely degenerative/rotator cuff related changes. - s/p XRT on 10/12/2020 to her right iliac bone with Dr. Hammond. - s/p Palbociclib (Ibrance) 125 mg daily started in 09/2020 completed 2 years (due to issues with excessive fatigue) - also received Zometa from 09/06/2020 thru 12/2021 - started on Faslodex since 09/06/2020 to present - repeat CT chest/ab/pelvis on 01/22/2021 showed a decrease in size in lesions of the right ilium adjacent to sacroiliac joint, but also noted is interval development of mild left hydroureter of uncertain etiology. - patient has developed dementia - family has decided not to put her through any more CT scans - she remains on Faslodex alone Current Treatment: Faslodex, monthly - initiated 09/2020 Subjective/ Review of Systems: See HPI HEENT- denies any vision/hearing changes or headaches. RESP- denies shortness of breath, cough CARDIAC- denies chest pain, palpitations BREAST- no masses, pain, drainage GI- Denies nausea, vomiting, constipation, diarrhea, blood in stool - denies dysuria, hematuria SKIN- denies new rashes MUSCULAR- no new muscular/skeletal pain or weakness (+) working with physical therapy 2-3 times per week NEURO- denies new neuropathy PAIN- denies acute pain concerns Objective/ Exam: BP 132/80 Pulse 65 Temp 36.2 C (97.2 F) (Temporal) Resp 10 Wt 76.7 kg (169 lb 1.5 oz) SpO2 99% BMI 29.95 kg/m GENERAL: Patient is a well developed, well nourished. Alert, oriented, pleasant and cooperative. NECK: Supple MOUTH: no redness, sores, or white patches BREAST: Right breast with no dominant masses/nodules, no nipple discharge and no adenopathy Left breast with surgical changes noted, no nodule, no skin changes, no adenopathy, no pain on exam Advanced Practice Registered Nurse offered:Patient accepts, visit chaperoned by granddaughter The sensitive examination was discussed with the Patient or Patient's Authorized Equipment Processor. As applicable, any other physician, advance practice provider, medical student, or other health professional student that will be observing or involved in the sensitive examination for educational or training purposes was discussed with the Patient or Authorized Equipment Processor. The Patient or Authorized Equipment Processor has agreed to proceed with the sensitive examination. (Sensitive examination includes inspection and/or palpation of the breasts, pelvis, prostate and anorectal regions) HEART: regular rate and rhythm LUNGS: clear to auscultation ABDOMEN: Abdomen soft, non-tender, + BS SKIN: (+) dry flaky LOWER EXTREMITIES: (+) BLE edema. Recent Testing Reviewed in Epic: - LABS - IMAGING Latest Ref Rng & Units 04/28/2024 05/25/2024 06/21/2024 CBC WBC 3.70 - 11.00 k/uL 7.86 7.34 7.75 RBC 3.90 - 5.20 m/uL 3.81 3.97 3.85 Hemoglobin 11.5 - 15.5 g/dL 12.2 12.5 12.2 Hematocrit 36.0 - 46.0 % 38.3 39.3 38.1 MCV 80.0 - 100.0 fL 100.5 99.0 99.0 MCH 26.0 - 34.0 pg 32.0 31.5 31.7 MCHC 30.5 - 36.0 g/dL 31.9 31.8 32.0 RDW-CV 11.5 - 15.0 % 13.4 13.3 13.3 Platelet Count 150 - 400 k/uL 206 179 268 MPV 9.0 - 12.7 fL 11.0 11.1 10.8 Baso% % 0.4 0.5 0.3 Abs Neut (ANC) 1.45 - 7.50 k/uL 5.11 4.29 4.71 Abs Lymph 1.00 - 4.00 k/uL 2.04 2.46 2.38 Abs [place] <0.87 k/uL 0.53 0.45 0.50 Abs Eosin <0.46 k/uL 0.11 0.08 0.11 Abs Baso <0.11 k/uL 0.03 0.04 <0.03 NRBC /100 WBC 0.0 0.0 0.0 Latest Ref Rng & Units 04/28/2024 05/25/2024 06/21/2024 CMP Sodium 136 - 144 mmol/L 140 140 139 Potassium 3.7 - 5.1 mmol/L 4.3 4.9 4.7 Chloride 98 - 107 mmol/L 103 104 104 CO2 22 - 30 mmol/L 27 26 27 Glucose 74 - 99 mg/dL 112 114 137 BUN 7 - 21 mg/dL 25 31 23 Creatinine 0.58 - 0.96 mg/dL 1.18 1.24 1.19 EGFR >=60 mL/min/1.73m 46 43 45 Protein, Total 6.3 - 8.0 g/dL 7.5 7.7 7.2 Albumin 3.9 - 4.9 g/dL 3.7 3.6 3.6 Calcium 8.5 - 10.2 mg/dL 9.2 9.1 9.1 Bilirubin, Total 0.2 - 1.3 mg/dL 0.2 0.3 0.3 AST 13 - 35 U/L 16 19 13 ALT 7 - 38 U/L 8 10 6 Alkaline Phosphatase 34 - 123 U/L 141 132 151 Assessment and Plan: (C50.919) Malignant neoplasm of female breast, unspecified estrogen receptor status, unspecified laterality, unspecified site of breast (HCC) (primary encounter diagnosis) (Z85.89) History of cancer metastatic to bone - feeling OK - no new complaints or concerns - tolerating Faslodex without any acute issues - clinical breast exam without any worrisome findings - reviewed and analyzed most recent lab results - blood counts are adequate for treatment - due for Faslodex injection today - plan for patient to follow up in 3-[address] Graham or MARGARET - reviewed well care and symptoms to report I spent a total of 27 minutes on the date of the service which included preparing to see the patient, [id number] patient care, completing clinical documentation, obtaining and/or reviewing separately obtained history, performing a medically appropriate examination, counseling and educating the patient/family/caregiver, ordering medications, tests, or procedures, communicating with other HCPs (not separately reported), independently interpreting results (not separately reported), communicating results to the patient/family/caregiver, and care coordination (not separately reported). Patient verbalized understanding, agrees with plan of care, and denies further questions at this time. Understands to call the office with further concerns/questions. Janett Betancourt APRN.CNP June 22, 2024 documented in this encounter [facility] 06-21-2024 History of Presen t illness Narrative June 21, 2024 5:[address] Graham patient Order for Faslodex signed for today to facilitate treatment Janett Betancourt APRN.CNP documented in this encounter [facility] 05-27-2024 History of Presen t illness Narrative May 27, 2024 8:[address] Graham patient Order for Faslodex signed for today to facilitate treatment Janett Betancourt APRN.CNP documented in this encounter [facility] 04-28-2024 History of Presen t illness Narrative April 28, 2024 6:[address] Graham patient Order for Faslodex signed for today to facilitate treatment Janett Betancourt APRN.CNP documented in this encounter [facility] 03-25-2024 History of Presen t illness Narrative Dr. Graham patient. Order for faslodex signed to facilitate treatment. Elle Marvin APRN.CNP; documented in this encounter [facility] 03-22-2024 Miscellaneous Notes SITUATION:granddaughter present during today's visit. patient reports the following since the last homecare visit: medications/allergies--no changes, no fall. CG reports that Jackelyn is not doing anything to follow through with her mobility. She wont move because it causes her pain . Pt reports that the pain is a 3-4 but she will not ask for or take a Tylenol Family reports that they have tried everthing to get her to move and to be compliant with her HEP but she just wants to sit there Pt would like PT to continure to come and work with her. Explained that we have taught her and her family everyhting that we can and that it is time to continue on her own BACKGROUND: Diagnoses (reason for Home Care): Primary Dx: Fracture of unspecified part of neck of left femur, subsequent encounter for closed fracture with routine healing [S72.002D] Weight Bearing/Precaution Changes: no changes ASSESSMENT: Focus of visit: ther ex, gait, balance, transfers Physical therapy discharged: goals achieved. Functional performance at discharge - bed mobility stand by assist, transfers supervision, ambulation supervision and ramp stand by assist. Plan of care, goals, and discharge reviewed and agreed upon with patient and/or caregiver. RECOMMENDATION: Patient discharged from home health services. Instructions to include:home exercise program as directed See intervention summary for intervention/education details. documented in this encounter [facility] 03-22-2024 Patient's home Note SITUATION:granddaughter present during today's visit. patient reports the following since the last homecare visit: medications/allergies--no changes, no fall. CG reports that Jackelyn is not doing anything to follow through with her mobility. She wont move because it causes her pain . Pt reports that the pain is a 3-4 but she will not ask for or take a Tylenol Family reports that they have tried everthing to get her to move and to be compliant with her HEP but she just wants to sit there Pt would like PT to continure to come and work with her. Explained that we have taught her and her family everyhting that we can and that it is time to continue on her own BACKGROUND: Diagnoses (reason for Home Care): Primary Dx: Fracture of unspecified part of neck of left femur, subsequent encounter for closed fracture with routine healing [S72.002D] Weight Bearing/Precaution Changes: no changes ASSESSMENT: Focus of visit: ther ex, gait, balance, transfers Physical therapy discharged: goals achieved. Functional performance at discharge - bed mobility stand by assist, transfers supervision, ambulation supervision and ramp stand by assist. Plan of care, goals, and discharge reviewed and agreed upon with patient and/or caregiver. RECOMMENDATION: Patient discharged from home health services. Instructions to include:home exercise program as directed See intervention summary for intervention/education details. [facility] Work Phone: 03-17-2024 Miscellaneous Notes SITUATION: [employer]CHESTRA [employer]IC[employer] routine visit. only patient present during today's visit. patient reports the following since the last homecare visit: medications/allergies--no changes, no fall. patient reports: Alok I'm still having a lot of trouble getting out of this chair. BACKGROUND: Diagnoses (reason for Home Care): Primary Dx: Fracture of unspecified part of neck of left femur, subsequent encounter for closed fracture with routine healing [S72.002D] NOMNC Weight Bearing/Precaution Changes: no changes ASSESSMENT: Pt reports no increased pain during today's PT tx. Focus of visit: Improving trunk/ LE strength and functional reserve. Plan of care, goals, and visit frequency reviewed and agreed upon with patient and/or caregiver. Current Discharge Plan: family support Anticipate discharge by 03/22/24 RECOMMENDATION: Pt is scheduled for PT re-eval on 03/22/24. Pt status and D/C plans discussed with pt and PT (Karo ). See intervention summary for intervention/education details. documented in this encounter [facility] 03-17-2024 Patient's home Note SITUATION: ORCHESTRA [employer]ICIAN routine visit. only patient present during today's visit. patient reports the following since the last homecare visit: medications/allergies--no changes, no fall. patient reports: Alok I'm still having a lot of trouble getting out of this chair. BACKGROUND: Diagnoses (reason for Home Care): Primary Dx: Fracture of unspecified part of neck of left femur, subsequent encounter for closed fracture with routine healing [S72.002D] NOMNC Weight Bearing/Precaution Changes: no changes ASSESSMENT: Pt reports no increased pain during today's PT tx. Focus of visit: Improving trunk/ LE strength and functional reserve. Plan of care, goals, and visit frequency reviewed and agreed upon with patient and/or caregiver. Current Discharge Plan: family support Anticipate discharge by 03/22/24 RECOMMENDATION: Pt is scheduled for PT re-eval on 03/22/24. Pt status and D/C plans discussed with pt and PT (Karo ). See intervention summary for intervention/education details. [facility] Work Phone: 03-17-2024 Miscellaneous Notes SITUATION: OT discharge granddtr present during today's visit. patient and caregiver reports the following since the last homecare visit: medications/allergies--no changes, no fall. patient and caregiver reports they have completed shower level bathing with asst from [employer]. Granddtr reporting that it has gone well and they do not need further review at this time. . BACKGROUND: Diagnoses or reason for Home Care: s/p fall resulting in L hip fracture, s/p ORIF 01/13/2024; pt later when to rehab ASSESSMENT: Focus of visit: ue hep review, declines shower transfers assess for dc Occupational therapy discharged: goals achieved. Functional Performance at discharge: granddtr assts with all adls, iadls and superv for mobility. Pt able to tolerate standing without support of walker max time of 7 min 30 sec. Plan of care, goals, and discharge reviewed and agreed upon with patient/caregiver. RECOMMENDATION: Instructions include: discharged from OT and is active with OT. Post dc recommendations: continue with ue hep daily See intervention summary for intervention/education details. documented in this encounter [facility] 03-17-2024 Patient's home Note SITUATION: OT discharge granddtr present during today's visit. patient and caregiver reports the following since the last homecare visit: medications/allergies--no changes, no fall. patient and caregiver reports they have completed shower level bathing with asst from [facility]. Granddtr reporting that it has gone well and they do not need further review at this time. . BACKGROUND: Diagnoses or reason for Home Care: s/p fall resulting in L hip fracture, s/p ORIF 01/13/2024; pt later when to rehab ASSESSMENT: Focus of visit: ue hep review, declines shower transfers assess for dc Occupational therapy discharged: goals achieved. Functional Performance at discharge: granddtr assts with all adls, iadls and superv for mobility. Pt able to tolerate standing without support of walker max time of 7 min 30 sec. Plan of care, goals, and discharge reviewed and agreed upon with patient/caregiver. RECOMMENDATION: Instructions include: discharged from OT and is active with OT. Post dc recommendations: continue with ue hep daily See intervention summary for intervention/education details. [facility] Work Phone: 03-14-2024 Miscellaneous Notes SITUATION: [employer]CHE[employer]ICIAN routine visit. daughter present during today's visit. patient and caregiver reports the following since the last homecare visit: medications/allergies--no changes, no fall. patient and caregiver reports no changes since last PT visit. BACKGROUND: Diagnoses (reason for Home Care): Primary Dx: Fracture of unspecified part of neck of left femur, subsequent encounter for closed fracture with routine healing [S72.002D] Weight Bearing/Precaution Changes: no changes ASSESSMENT: Pt reports slight increased L hip pain during today's PT tx. Focus of visit: Improving trunk/ LE strength and functional reserve. Plan of care, goals, and visit frequency reviewed and agreed upon with patient and/or caregiver. Current Discharge Plan: family support Anticipate discharge by 03/22/24 RECOMMENDATION: Pt would cont to benefit from further PT tx to improve LE/ trunk strength and balance in order to decrease assistance with transfers, walking, and stair negotiation. Next visit to focus on: Improving trunk/ LE strength and functional reserve. See intervention summary for intervention/education details. documented in this encounter [facility] 03-14-2024 Patient's home Note SITUATION: [employer] routine visit. daughter present during today's visit. patient and caregiver reports the following since the last homecare visit: medications/allergies--no changes, no fall. patient and caregiver reports no changes since last PT visit. BACKGROUND: Diagnoses (reason for Home Care): Primary Dx: Fracture of unspecified part of neck of left femur, subsequent encounter for closed fracture with routine healing [S72.002D] Weight Bearing/Precaution Changes: no changes ASSESSMENT: Pt reports slight increased L hip pain during today's PT tx. Focus of visit: Improving trunk/ LE strength and functional reserve. Plan of care, goals, and visit frequency reviewed and agreed upon with patient and/or caregiver. Current Discharge Plan: family support Anticipate discharge by 03/22/24 RECOMMENDATION: Pt would cont to benefit from further PT tx to improve LE/ trunk strength and balance in order to decrease assistance with transfers, walking, and stair negotiation. Next visit to focus on: Improving trunk/ LE strength and functional reserve. See intervention summary for intervention/education details. [facility] Work Phone: 03-10-2024 Miscellaneous Notes SITUATION: grand daughter present during today's visit. caregiver reports the following since the last homecare visit: medications/allergies--no changes, no fall. patient reports she is doing ok. . BACKGROUND: Diagnoses (reason for Home Care): s/p fall resulting in L hip fracture, s/p ORIF 01/13/2024; pt later when to rehab Past Medical History: Anemia Dementia (HCC) HTN (hypertension) Cancer of breast, intraductal, left Obesity, Class I, BMI 30-34.9 Deep tissue injury Weight Bearing/Precaution Changes: no changes ASSESSMENT: Focus of visit progressed balance exercises today. Patient did well w/ seated rest breaks throughout when fatigued. Required increased cues w/ ambulation today for increased step height, tends to shuffle feet Unable to do ramp ambulation today due to delivery of mulch being in the way Plan of care, goals, and visit frequency reviewed and agreed upon with patient and/or caregiver. Current Discharge Plan: family support Anticipate discharge by TBD RECOMMENDATION: Next visit to focus on gait training to include ramp if able See intervention summary for intervention/education details. documented in this encounter [facility] 03-10-2024 Patient's home Note SITUATION: grand daughter present during today's visit. caregiver reports the following since the last homecare visit: medications/allergies--no changes, no fall. patient reports she is doing ok. . BACKGROUND: Diagnoses (reason for Home Care): s/p fall resulting in L hip fracture, s/p ORIF 01/13/2024; pt later when to rehab Past Medical History: Anemia Dementia (HCC) HTN (hypertension) Cancer of breast, intraductal, left Obesity, Class I, BMI 30-34.9 Deep tissue injury Weight Bearing/Precaution Changes: no changes ASSESSMENT: Focus of visit progressed balance exercises today. Patient did well w/ seated rest breaks throughout when fatigued. Required increased cues w/ ambulation today for increased step height, tends to shuffle feet Unable to do ramp ambulation today due to delivery of mulch being in the way Plan of care, goals, and visit frequency reviewed and agreed upon with patient and/or caregiver. Current Discharge Plan: family support Anticipate discharge by TBD RECOMMENDATION: Next visit to focus on gait training to include ramp if able See intervention summary for intervention/education details. [facility] Work Phone: 03-07-2024 Miscellaneous Notes SITUATION: OT routine visit granddtr present during today's visit. patient reports the following since the last homecare visit: medications/allergies--no changes, no fall. patient reports s/p fall resulting in L hip fracture, s/p ORIF 01/13/2024; pt later when to rehab . BACKGROUND: Diagnoses or reason for Home Care: s/p fall resulting in L hip fracture, s/p ORIF 01/13/2024; pt later when to rehab ASSESSMENT: Focus of Visit ue hep review and standing balance/tolerance Patient identified goals to get stronger Plan of care, goals, and visit frequency reviewed and agreed upon with patient and/or caregiver. See intervention summary for intervention/education details. Current Discharge Plan: remain in community with/without caregiver support. Anticipate discharge by 03/19/24 RECOMMENDATION: Next visit to focus on review of ue hep, standing and shower transfers documented in this encounter [facility] 03-07-2024 Patient's home Note SITUATION: OT routine visit granddtr present during today's visit. patient reports the following since the last homecare visit: medications/allergies--no changes, no fall. patient reports s/p fall resulting in L hip fracture, s/p ORIF 01/13/2024; pt later when to rehab . BACKGROUND: Diagnoses or reason for Home Care: s/p fall resulting in L hip fracture, s/p ORIF 01/13/2024; pt later when to rehab ASSESSMENT: Focus of Visit ue hep review and standing balance/tolerance Patient identified goals to get stronger Plan of care, goals, and visit frequency reviewed and agreed upon with patient and/or caregiver. See intervention summary for intervention/education details. Current Discharge Plan: remain in community with/without caregiver support. Anticipate discharge by 03/19/24 RECOMMENDATION: Next visit to focus on review of ue hep, standing and shower transfers [facility] Work Phone: 03-07-2024 Miscellaneous Notes SITUATION: grand daughter present during today's visit. patient and caregiver reports the following since the last homecare visit: medications/allergies--no changes, no fall. patient reports she is doing ok. BACKGROUND: Diagnoses (reason for Home Care): s/p fall resulting in L hip fracture, s/p ORIF 01/13/2024; pt later when to rehab Past Medical History: Anemia Dementia (HCC) HTN (hypertension) Cancer of breast, intraductal, left Obesity, Class I, BMI 30-34.9 Deep tissue injury Weight Bearing/Precaution Changes: falls ASSESSMENT: Focus of visit gait training w/ww to exit home via ramp, LE strength exercises for HEP. Plan of care, goals, and visit frequency reviewed and agreed upon with patient and/or caregiver. Current Discharge Plan: family support Anticipate discharge by 03/22/24 RECOMMENDATION: Next visit to focus on cont w/ ramp ambulation to increase safety and endurance w/ functional mobility See intervention summary for intervention/education details. documented in this encounter [facility] 03-07-2024 Patient's home Note SITUATION: grand daughter present during today's visit. patient and caregiver reports the following since the last homecare visit: medications/allergies--no changes, no fall. patient reports she is doing ok. BACKGROUND: Diagnoses (reason for Home Care): s/p fall resulting in L hip fracture, s/p ORIF 01/13/2024; pt later when to rehab Past Medical History: Anemia Dementia (HCC) HTN (hypertension) Cancer of breast, intraductal, left Obesity, Class I, BMI 30-34.9 Deep tissue injury Weight Bearing/Precaution Changes: falls ASSESSMENT: Focus of visit gait training w/ww to exit home via ramp, LE strength exercises for HEP. Plan of care, goals, and visit frequency reviewed and agreed upon with patient and/or caregiver. Current Discharge Plan: family support Anticipate discharge by 03/22/24 RECOMMENDATION: Next visit to focus on cont w/ ramp ambulation to increase safety and endurance w/ functional mobility See intervention summary for intervention/education details. [facility] Work Phone: 03-05-2024 History of Presen t illness Narrative The patient is a 82-year-old female. Status post left-sided lumpectomy in 2006 for left-sided breast cancer. Received adjuvant chemotherapy followed by radiation followed by 5 years of Arimidex that was completed in 2012. 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 This was biopsied and found to be consistent with ER positive/99%, MI +90% and HER2 negative by IHC. The patient was diagnosed with relapse in 2019. A PET scan showed uptake in the right iliac bone near the SI joint, there is also some questionable bilateral hilar lymphadenopathy at that time. The patient was started on Faslodex along with palbociclib. Subsequently was given radiation to the area of solitary metastasis in the right iliac bone. We did palbociclib for a total of 2 years. Patient was having issues with excessive fatigue. No progression identified and hence decided to stop this and continue with the Faslodex. The patient has issues with dementia now. However is tolerating the Faslodex relatively well. Family has decided not to put her through CAT scans. The patient is currently doing relatively well. On Faslodex alone. No other acute issues. Review Of Systems: General: Denies any fatigue. No fever, chills, night sweats, weight loss, headaches or loss of appetite. Stamina intact. HEENT/Neck: No hearing/vision changes; no pain, masses, or swelling. No evidence of sores in the mouth. Respiratory: No cough, productive sputum, hemoptysis, chest pain, shortness of breath or wheezing. Cardiovascular: No palpatations, chest pain,shotness or breath, exertional dyspnea or leg swelling. Gastrointestinal: No nausea, vomiting, dysphagia, abdominal pain,melana or hematochezia. No diahrea orconstipation. No change in the bowel habbits. Genitourinary: No dysuria, nocturia, frequency, urgency, hematuria or incontinence. Musculoskeletal: No joint or pain bone pain: No limitation of motion. No problems with the gait. Neurological: No sensory or motor abnormalities; no headaches or dizziness. Dermatologic: No rash, skin lesions or itching. Psychiatric: No sleep disturbances, mood disorders, depression, etc. Hematologic: No bleeding, bruising or echymisis. Lymphatic System: No new lymph gland enlargement or and new lumps of bumps in the body. Endocrine: No heat or cold intolerance, diabetes or other abnormalities The rest of systems reviewed and essentially unremarkable. Physical Examination: BP 148/55 Pulse 63 Temp 36.2 C (97.2 F) (Temporal Artery) Resp 16 Wt 78.4 kg (172 lb 13.5 oz) SpO2 99% BMI 30.62 kg/m The patient was awake alert oriented. Didn't appear to be in acute distress. HEENT: No pallor, icterus, cyanosis, oral cavity shows no evidence of mucositis, lesions, or ulcers. Trachea midline. No JVD, carotid bruit, thyromegaly, cervical lymphadenopathy or supra-infraclavicular lymphadenopathy. CVS: S1-S2 heard no S3 no murmurs or pericardial rub. No peripheral edema. Lungs: Chest wall nontender. No dullness to percussion. Clear to auscultation bilaterally. No rhonchi or rales noted. No pleural rub or at it sounds noted. Abdomen: Normal inspection, nondistended no dilated veins. Soft nontender no organomegaly. No palpable masses noted. Hem/ Lymph: No peripheral lymphadenopathy or any palpable masses. Neuro Exam: High mental functions were normal. Cranial nerves II through XII are normal. No gross abnormality noted on sensory or motor system exam. Musculoskeletal: No joint deformities noted. No evidence of synovitis, swelling or tenderness in the joints or bursitis. Skin: No evidence to suggest any bruising, ecchymosis, petechiae and symptoms of hand-foot syndrome. Breast examination. Postradiation postsurgical changes noted in the left breast. No definite palpable mass. No cutaneous lesions. No evidence of lymphadenopathy in the left axilla. The right breast, inspection palpation without any evidence of right axillary lymphadenopathy. Labs: DATA: Diagnostic tests reviewed for today's visit: Most recent labs and imaging results. CBC: WBC (k/uL) Date Value 03/03/2024 9.25 09/12/2021 3.32 RBC (m/uL) Date Value 03/03/2024 3.81 09/12/2021 2.58 Hemoglobin (g/dL) Date Value 03/03/2024 12.2 09/12/2021 9.6 Hematocrit (%) Date Value 03/03/2024 39.7 09/12/2021 28.8 Platelet Count (k/uL) Date Value 03/03/2024 240 09/12/2021 190 MCV (fL) Date Value 03/03/2024 104.2 09/12/2021 111.6 MCH Date Value 03/03/2024 32.0 pg 09/12/2021 37.2 pG MPV (fL) Date Value 03/03/2024 10.3 09/12/2021 10.7 CMP: Sodium (mmol/L) Date Value 03/03/2024 137 09/12/2021 140 Chloride (mmol/L) Date Value 03/03/2024 103 09/12/2021 103 CO2 (mmol/L) Date Value 03/03/2024 22 09/12/2021 25 BUN (mg/dL) Date Value 03/03/2024 25 09/12/2021 29 Creatinine (mg/dL) Date Value 03/03/2024 1.01 09/12/2021 1.50 Creatinine (POCT) (mg/dL) Date Value 05/27/2022 1.40 Glucose (mg/dL) Date Value 03/03/2024 109 09/12/2021 131 Protein, Total (g/dL) Date Value 03/03/2024 7.9 09/12/2021 7.0 Calcium (mg/dL) Date Value 09/12/2021 9.4 Calcium, Total (mg/dL) Date Value 03/03/2024 9.1 Magnesium (mg/dL) Date Value 02/01/2024 2.2 Bilirubin, Total (mg/dL) Date Value 03/03/2024 0.3 09/12/2021 0.3 Alkaline Phosphatase (U/L) Date Value 03/03/2024 161 09/12/2021 72 ALT (U/L) Date Value 03/03/2024 9 09/12/2021 6 AST (U/L) Date Value 03/03/2024 19 09/12/2021 12 Anion Gap (mmol/L) Date Value 03/03/2024 12 09/12/2021 12 Imaging Studies: None Assessment: 1. 83 year old female with a diagnosis of metastatic breast cancer. Patient with bone metastasis. Currently on Faslodex. Seems to be tolerating it relatively well. Her dementia more or less stable. Patient not having any deterioration. 2. No physical symptoms of pain, weight loss. LFTs normal. No evidence to suggest disease progression on clinical and lab exam. No imaging studies as per the request of the family. Continue with Faslodex. See her back again at in 2 to 3 months. Leonid Graham MD documented in this encounter [facility] 03-03-2024 Miscellaneous Notes SITUATION: grand daughter present during today's visit. caregiver reports the following since the last homecare visit: medications/allergies--no changes, no fall. patient reports sh eis doing ok, did her exercises 1 time yesterday. BACKGROUND: Diagnoses (reason for Home Care): s/p fall resulting in L hip fracture, s/p ORIF 01/13/2024; pt later when to rehab Past Medical History: Anemia Dementia (HCC) HTN (hypertension) Cancer of breast, intraductal, left Obesity, Class I, BMI 30-34.9 Deep tissue injury Weight Bearing/Precaution Changes: falls ASSESSMENT: Focus of visit progressed to standing LE strength and balance exercises today. seated rest breaks as needed when fatigued. Gait training w/ ww Plan of care, goals, and visit frequency reviewed and agreed upon with patient and/or caregiver. Current Discharge Plan: family support Anticipate discharge by 03/26/24 RECOMMENDATION: Next visit to focus on ramp ambulation if able See intervention summary for intervention/education details. documented in this encounter [facility] 03-03-2024 Patient's home Note SITUATION: grand daughter present during today's visit. caregiver reports the following since the last homecare visit: medications/allergies--no changes, no fall. patient reports sh eis doing ok, did her exercises 1 time yesterday. BACKGROUND: Diagnoses (reason for Home Care): s/p fall resulting in L hip fracture, s/p ORIF 01/13/2024; pt later when to rehab Past Medical History: Anemia Dementia (HCC) HTN (hypertension) Cancer of breast, intraductal, left Obesity, Class I, BMI 30-34.9 Deep tissue injury Weight Bearing/Precaution Changes: falls ASSESSMENT: Focus of visit progressed to standing LE strength and balance exercises today. seated rest breaks as needed when fatigued. Gait training w/ ww Plan of care, goals, and visit frequency reviewed and agreed upon with patient and/or caregiver. Current Discharge Plan: family support Anticipate discharge by 03/26/24 RECOMMENDATION: Next visit to focus on ramp ambulation if able See intervention summary for intervention/education details. [facility] Work Phone: 03-02-2024 Miscellaneous Notes SITUATION: Care Home Discipline Discharge visit completed today. daughter also present during today's visit. patient reports the following changes since the last homecare visit: Allergies--reviewed Medications-reviewed Falls--none BACKGROUND: Reason for Home Care: L hip surgery, L heel wound ASSESSMENT: SN greeted at door by caregiver . If you select Caregiver: Upon entrance patient found in chair. Patient appears in no acute distress. Patient/CG concerns verbalized today: no special concerns Vitals (see flow sheet for details) stable SN findings today: Pt sitting in recliner. Cg reports that the scab fell off of the L heel and wound is healed. SN notes that this is the case, This appears that it may have started out as a blister, pt/cg are not sure. The newly healed skin is very soft and CG instructed to contue to protect the area as it is going to be more suseptible to friction or pressure. She plans to continue to use the RONALD wrap. Pt to continue with therapy. See intervention summary for education details and any skills performed. Specific SN discharge instructions: Continue to protect L heel. Notify PCP of any medical concerns. Patient encouraged to take all medication as ordered, eat a well-balanced diet and follow up with all physician appointments. Additional follow ups recommended: none NOMNC: Not required per insurance Discharged due to no further SN skilled need. RECOMMENDATION: Patient to continue with PT and OT services. documented in this encounter [facility] 03-02-2024 Patient's home Note SITUATION: Care Home Discipline Discharge visit completed today. daughter also present during today's visit. patient reports the following changes since the last homecare visit: Allergies--reviewed Medications-reviewed Falls--none BACKGROUND: Reason for Home Care: L hip surgery, L heel wound ASSESSMENT: SN greeted at door by caregiver . If you select Caregiver: Upon entrance patient found in chair. Patient appears in no acute distress. Patient/CG concerns verbalized today: no special concerns Vitals (see flow sheet for details) stable SN findings today: Pt sitting in recliner. Cg reports that the scab fell off of the L heel and wound is healed. SN notes that this is the case, This appears that it may have started out as a blister, pt/cg are not sure. The newly healed skin is very soft and CG instructed to contue to protect the area as it is going to be more suseptible to friction or pressure. She plans to continue to use the RONALD wrap. Pt to continue with therapy. See intervention summary for education details and any skills performed. Specific SN discharge instructions: Continue to protect L heel. Notify PCP of any medical concerns. Patient encouraged to take all medication as ordered, eat a well-balanced diet and follow up with all physician appointments. Additional follow ups recommended: none NOMNC: Not required per insurance Discharged due to no further SN skilled need. RECOMMENDATION: Patient to continue with PT and OT services. [facility] Work Phone: 03-01-2024 Miscellaneous Notes SITUATION: OT routine visit granddtr present during today's visit. patient and caregiver reports the following since the last homecare visit: medications/allergies--no changes, no fall. patient reports she just finished with PT, they would like to have therapy spread out starting next week BACKGROUND: Diagnoses or reason for Home Care: s/p fall resulting in L hip fracture, s/p ORIF 01/13/2024; pt later when to rehab ASSESSMENT: Focus of Visit ue hep and standing tolerance Patient identified goals to get stronger Plan of care, goals, and visit frequency reviewed and agreed upon with patient and/or caregiver. See intervention summary for intervention/education details. Current Discharge Plan: remain in community with/without caregiver support. Anticipate discharge by 03/19/24 RECOMMENDATION: Next visit to focus on review of ue hep and standing tolerance documented in this encounter [facility] 03-01-2024 Patient's home Note SITUATION: OT routine visit granddtr present during today's visit. patient and caregiver reports the following since the last homecare visit: medications/allergies--no changes, no fall. patient reports she just finished with PT, they would like to have therapy spread out starting next week BACKGROUND: Diagnoses or reason for Home Care: s/p fall resulting in L hip fracture, s/p ORIF 01/13/2024; pt later when to rehab ASSESSMENT: Focus of Visit ue hep and standing tolerance Patient identified goals to get stronger Plan of care, goals, and visit frequency reviewed and agreed upon with patient and/or caregiver. See intervention summary for intervention/education details. Current Discharge Plan: remain in community with/without caregiver support. Anticipate discharge by 03/19/24 RECOMMENDATION: Next visit to focus on review of ue hep and standing tolerance [facility] Work Phone: 03-01-2024 Miscellaneous Notes SITUATION: grand daughter present during today's visit. caregiver reports the following since the last homecare visit: medications/allergies--no changes, no fall. patient reports she is doing ok. Hip gets sore sometimes. Grand daughter repoting yhat scab on left heel fell off yesterday and heel is now healed. Requesting no further nursing visits. BACKGROUND: Diagnoses (reason for Home Care): L hip fx w/ nailing Weight Bearing/Precaution Changes: falls ASSESSMENT: Focus of visit performed seated and supine LE exercises for HEP. Strongly encouraged patient to do them everyday for overall improvements. Voiced understanding but reports I forget to do them. gait training w/ww Email sent to [facility] to report of grandaughters request to cancel nursing, requested she call daughter to discuss. Plan of care, goals, and visit frequency reviewed and agreed upon with patient and/or caregiver. Current Discharge Plan: family support Anticipate discharge by 03/22/24 RECOMMENDATION: Next visit to focus on add standing heel raises See intervention summary for intervention/education details. documented in this encounter [facility] 03-01-2024 Patient's home Note SITUATION: grand daughter present during today's visit. caregiver reports the following since the last homecare visit: medications/allergies--no changes, no fall. patient reports she is doing ok. Hip gets sore sometimes. Grand daughter repoting yhat scab on left heel fell off yesterday and heel is now healed. Requesting no further nursing visits. BACKGROUND: Diagnoses (reason for Home Care): L hip fx w/ nailing Weight Bearing/Precaution Changes: falls ASSESSMENT: Focus of visit performed seated and supine LE exercises for HEP. Strongly encouraged patient to do them everyday for overall improvements. Voiced understanding but reports I forget to do them. gait training w/ww Email sent to [facility] to report of grandaughters request to cancel nursing, requested she call daughter to discuss. Plan of care, goals, and visit frequency reviewed and agreed upon with patient and/or caregiver. Current Discharge Plan: family support Anticipate discharge by 03/22/24 RECOMMENDATION: Next visit to focus on add standing heel raises See intervention summary for intervention/education details. [facility] Work Phone: 02-26-2024 Miscellaneous Notes SITUATION: granddaughter in law present during today's visit. patient reports doing okay. Cg reports no med changes, no falls. Pt was to see ortho yesterday.Healing well. Follow up in April BACKGROUND: Diagnoses (reason for Home Care): s/p fall resulting in L hip fracture, s/p ORIF 01/13/2024; pt later when to rehab Past Medical History: Anemia Dementia (HCC) HTN (hypertension) Cancer of breast, intraductal, left Obesity, Class I, BMI 30-34.9 Deep tissue injury PMH:Patient reports two falls in past year resulting in injury, first fall resulted in degloving injury of L hand, second fall resulted in hip fx; pt was unable to get up from floor without significant assistance. Patient previously was independent with mobility, either using walker or no device in home. Patient actively undergoing chemo injections once per month. Weight Bearing or Surgical Precautions: WBAT, falls ASSESSMENT:Supine ther ex, transfers, gait Current Discharge Plan: outpatient rehab. Anticipate discharge by 04/22/2024. RECOMMENDATION: Next visit to focus on progression of ther ex, gait and standing tolerance See intervention summary for intervention/education details. documented in this encounter [facility] 02-26-2024 Patient's home Note SITUATION: granddaughter in law present during today's visit. patient reports doing okay. Cg reports no med changes, no falls. Pt was to see ortho yesterday.Healing well. Follow up in April BACKGROUND: Diagnoses (reason for Home Care): s/p fall resulting in L hip fracture, s/p ORIF 01/13/2024; pt later when to rehab Past Medical History: Anemia Dementia (HCC) HTN (hypertension) Cancer of breast, intraductal, left Obesity, Class I, BMI 30-34.9 Deep tissue injury PMH:Patient reports two falls in past year resulting in injury, first fall resulted in degloving injury of L hand, second fall resulted in hip fx; pt was unable to get up from floor without significant assistance. Patient previously was independent with mobility, either using walker or no device in home. Patient actively undergoing chemo injections once per month. Weight Bearing or Surgical Precautions: WBAT, falls ASSESSMENT:Supine ther ex, transfers, gait Current Discharge Plan: outpatient rehab. Anticipate discharge by 04/22/2024. RECOMMENDATION: Next visit to focus on progression of ther ex, gait and standing tolerance See intervention summary for intervention/education details. [facility] Work Phone: 02-25-2024 Miscellaneous Notes SITUATION: Care Home Eval completed today. other family member (grandson's ) also present during today's visit. The patient reports the following: Allergies--reviewed Medications--Full medication reconciliation completed Falls--none DME-Reviewed with no changes BACKGROUND: Reason for SN eval: wound to left heel ASSESSMENT: SN greeted at door by CG, pt found in chair Patient is alert and oriented x4. Patient appears in no acute distress. Patient lives at home with her grandson and his . Home environment is clean and uncluttered. Patient/CG concerns verbalized today: pt has wound to left heel Vitals (see flow sheet for details):stable SN findings today: pt pleasant. pt ambulates with a walker. SN taught pt falls prevention safety. SN noted hx of dementia for pt, pt is AOx4, pt and CG denies issues with confusion, pt states, I take those medications and they really help me. pt lives with her grandson and his , she manages medications for pt, helps pt with ADLS, meals. CG states, she's had this wound on her left heel since after surgery, from being in bed, no one has done anything with it, there is a scab that needs to come off. SN noted deep tissue injury to left heel, intact, edges starting to peel up at 12'o clock, but edges intact at 6'o clock area of wound. SN taught pt and CG that this scab needs to remain in place, they should not try and peel it off, because the wound is trying to heal underneath this, if the, it if it removed, pt could develop an infection and worse open wound. SN obtained pt's permission and took a photo of wound for pt's chart. SN taught pt and CG that wound needs to be kept clean, dry and protected. SN taught pt and CG to keep left heel elevated when sleeping or resting in recliner, to keep pressure off of left heel. SN wrapped wound with gauze and kerlix. pt's CG has calcium alginate, SN taught CG that this is good for wound with drainage, not deep tissue injury, CG is a bit adamant that she would like to use this dressing. SN supplied pt with basic wound care supplies, CG declined needs for SN to order supplies, states, I have a bunch of things left over from when my got hurt. SN taught pt and CG s/sx of infection to report. See intervention summary for education details. SN Plan of Care developed and reviewed with patient and agreed with plan of care. Patient demonstrated a need for further skilled SN services for wound/skin care. RECOMMENDATION: Visit Frequency: 1w4 Patient has need for additional services: N/A referrals discussed with pt and CG Additional concerns to be followed up on: none Next visit to focus on (be specific): wound care documented in this encounter [facility] 02-25-2024 Procedure note SITUATION: Care Home Eval completed today. other family member (grandson's ) also present during today's visit. The patient reports the following: Allergies--reviewed Medications--Full medication reconciliation completed Falls--none DME-Reviewed with no changes BACKGROUND: Reason for SN eval: wound to left heel ASSESSMENT: SN greeted at door by CG, pt found in chair Patient is alert and oriented x4. Patient appears in no acute distress. Patient lives at home with her grandson and his . Home environment is clean and uncluttered. Patient/CG concerns verbalized today: pt has wound to left heel Vitals (see flow sheet for details):stable SN findings today: pt pleasant. pt ambulates with a walker. SN taught pt falls prevention safety. SN noted hx of dementia for pt, pt is AOx4, pt and CG denies issues with confusion, pt states, I take those medications and they really help me. pt lives with her grandson and his , she manages medications for pt, helps pt with ADLS, meals. CG states, she's had this wound on her left heel since after surgery, from being in bed, no one has done anything with it, there is a scab that needs to come off. SN noted deep tissue injury to left heel, intact, edges starting to peel up at 12'o clock, but edges intact at 6'o clock area of wound. SN taught pt and CG that this scab needs to remain in place, they should not try and peel it off, because the wound is trying to heal underneath this, if the, it if it removed, pt could develop an infection and worse open wound. SN obtained pt's permission and took a photo of wound for pt's chart. SN taught pt and CG that wound needs to be kept clean, dry and protected. SN taught pt and CG to keep left heel elevated when sleeping or resting in recliner, to keep pressure off of left heel. SN wrapped wound with gauze and kerlix. pt's CG has calcium alginate, SN taught CG that this is good for wound with drainage, not deep tissue injury, CG is a bit adamant that she would like to use this dressing. SN supplied pt with basic wound care supplies, CG declined needs for SN to order supplies, states, I have a bunch of things left over from when my got hurt. SN taught pt and CG s/sx of infection to report. See intervention summary for education details. SN Plan of Care developed and reviewed with patient and agreed with plan of care. Patient demonstrated a need for further skilled SN services for wound/skin care. RECOMMENDATION: Visit Frequency: 1w4 Patient has need for additional services: N/A referrals discussed with pt and CG Additional concerns to be followed up on: none Next visit to focus on (be specific): wound care [facility] Work Phone: 02-25-2024 Miscellaneous Notes SITUATION: OT evaluation granddtr present during today's visit. patient and caregiver reports the following since the last homecare visit: medications/allergies--no changes, no fall. Pts lives in 1 level home with granddtr who has assted pt with care for long period of time. Pt with ramp entry. Granddtr reports that patient was turning to get into chair and fell fx of left le. 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 Granddtr assted with bathing, and pt was dressing self. BACKGROUND: Diagnoses (reason for Home Care): s/p fall resulting in L hip fracture, s/p ORIF 01/13/2024; pt later when to rehab Past Medical History: Anemia Dementia (HCC) HTN (hypertension) Cancer of breast, intraductal, left Obesity, Class I, BMI 30-34.9 Deep tissue injury Weight Bearing or Surgical Precautions: WBAT, falls ASSESSMENT: Patient evaluated by [facility] Homecare occupational therapy. Reviewed and explained homecare services. Plan of care, goals and visit frequency developed, reviewed, and agreed upon with patient and/or caregiver. Patient identified goals: to get stronger. Patient will benefit from continued occupational therapy to address the following deficits functional activity including I/ADLs, UE strength/ROM and functional transfers as evidenced by score on Modified Merle Index 55/100 indicating severe dep in adl and mobility pt would benefit from further OT for ue hep/strengthening, transfer training, standing tolerance and balance to carry over to adl,mobility and transfers. Without further OT pt risk dep care of family Current Discharge Plan:remain in community with/without caregiver support. Anticipate discharge by 03/19/24 RECOMMENDATION: Plan for next visit to focus on ue hep, standing balance. See intervention summary for intervention/education details. documented in this encounter [facility] 02-25-2024 Patient's home Note SITUATION: OT evaluation granddtr present during today's visit. patient and caregiver reports the following since the last homecare visit: medications/allergies--no changes, no fall. Pts lives in 1 level home with granddtr who has assted pt with care for long period of time. Pt with ramp entry. Granddtr reports that patient was turning to get into chair and fell fx of left le. 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 Granddtr assted with bathing, and pt was dressing self. BACKGROUND: Diagnoses (reason for Home Care): s/p fall resulting in L hip fracture, s/p ORIF 01/13/2024; pt later when to rehab Past Medical History: Anemia Dementia (HCC) HTN (hypertension) Cancer of breast, intraductal, left Obesity, Class I, BMI 30-34.9 Deep tissue injury Weight Bearing or Surgical Precautions: WBAT, falls ASSESSMENT: Patient evaluated by [facility] Homecare occupational therapy. Reviewed and explained homecare services. Plan of care, goals and visit frequency developed, reviewed, and agreed upon with patient and/or caregiver. Patient identified goals: to get stronger. Patient will benefit from continued occupational therapy to address the following deficits functional activity including I/ADLs, UE strength/ROM and functional transfers as evidenced by score on Modified Merle Index 55/100 indicating severe dep in adl and mobility pt would benefit from further OT for ue hep/strengthening, transfer training, standing tolerance and balance to carry over to adl,mobility and transfers. Without further OT pt risk dep care of family Current Discharge Plan:remain in community with/without caregiver support. Anticipate discharge by 03/19/24 RECOMMENDATION: Plan for next visit to focus on ue hep, standing balance. See intervention summary for intervention/education details. [facility] Work Phone: 02-24-2024 Miscellaneous Notes Medication review completed. No ineffective drug therapy, significant side effects, significant drug interactions, duplicate drug therapy, or noncompliance with drug therapy noted. Message to PT about Depakote? Althea Cardona RN documented in this encounter [facility] 02-24-2024 Patient's home Note Medication review completed. No ineffective drug therapy, significant side effects, significant drug interactions, duplicate drug therapy, or noncompliance with drug therapy noted. Message to PT about Depakote? Althea Cardona RN [facility] Work Phone: 02-23-2024 Miscellaneous Notes SITUATION: granddaughter in law present during today's visit. patient reports doing okay. Patient reports two falls in past year resulting in injury, first fall resulted in degloving injury of L hand, second fall resulted in hip fx; pt was unable to get up from floor without significant assistance. Patient previously was independent with mobility, either using walker or no device in home. Patient actively undergoing chemo injections once per month. [facility], patient has follow up with ortho on 02/24. Granddaughter in law is primary caregiver for patient and willing to assist in any way. BACKGROUND: Diagnoses (reason for Home Care): s/p fall resulting in L hip fracture, s/p ORIF 01/13/2024; pt later when to rehab Past Medical History: Anemia Dementia (HCC) HTN (hypertension) Cancer of breast, intraductal, left Obesity, Class I, BMI 30-34.9 Deep tissue injury Weight Bearing or Surgical Precautions: WBAT, falls ASSESSMENT: Patient evaluated by [facility] Homecare physical therapy. Reviewed and explained homecare services. Plan of care, goals, and visit frequency developed, reviewed, and agreed upon with patient and/or caregiver. Patient Goal: to walk better Patient will benefit from continued physical therapy to address the following deficits: strength, balance, gait, endurance, transfers, stair negotiation, aerobic capacity and bed mobility. Current Discharge Plan: outpatient rehab. Anticipate discharge by 04/22/2024. RECOMMENDATION: Next visit to focus on progression of ther ex, gait and standing tolerance Agreeable to SN, PT and OT; declining NA. Received verbal order for SN add to care See intervention summary for intervention/education details. documented in this encounter [facility] 02-23-2024 Patient's home Note SITUATION: granddaughter in law present during today's visit. patient reports doing okay. Patient reports two falls in past year resulting in injury, first fall resulted in degloving injury of L hand, second fall resulted in hip fx; pt was unable to get up from floor without significant assistance. Patient previously was independent with mobility, either using walker or no device in home. Patient actively undergoing chemo injections once per month. Most of patient's physicians are through [facility], patient has follow up with ortho on 02/24. Granddaughter in law is primary caregiver for patient and willing to assist in any way. BACKGROUND: Diagnoses (reason for Home Care): s/p fall resulting in L hip fracture, s/p ORIF 01/13/2024; pt later when to rehab Past Medical History: Anemia Dementia (HCC) HTN (hypertension) Cancer of breast, intraductal, left Obesity, Class I, BMI 30-34.9 Deep tissue injury Weight Bearing or Surgical Precautions: WBAT, falls ASSESSMENT: Patient evaluated by [facility] Homecare physical therapy. Reviewed and explained homecare services. Plan of care, goals, and visit frequency developed, reviewed, and agreed upon with patient and/or caregiver. Patient Goal: to walk better Patient will benefit from continued physical therapy to address the following deficits: strength, balance, gait, endurance, transfers, stair negotiation, aerobic capacity and bed mobility. Current Discharge Plan: outpatient rehab. Anticipate discharge by 04/22/2024. RECOMMENDATION: Next visit to focus on progression of ther ex, gait and standing tolerance Agreeable to SN, PT and OT; declining NA. Received verbal order for SN add to care See intervention summary for intervention/education details. [facility] Work Phone: 02-22-2024 Telephone encounter Note Patient accepted and confirmed home health start of care (SOC) for 02/23/24. Visit time established. [facility] Work Phone: 02-22-2024 Miscellaneous Notes Patient accepted and confirmed home health start of care (SOC) for 02/23/24. Visit time established. documented in this encounter [facility] 02-22-2024 Telephone encounter Note Spoke to Marisol Chakraborty MD verbal office to follow home care and sign care plan. Tanika De La Garza LPN February 22, 2024 1:04 PM [facility] 02-22-2024 Miscellaneous Notes Spoke to Marisol at Yoav Chakraborty MD verbal office to follow home care and sign care plan. Tanika De La Garza LPN February 22, 2024 1:04 PM documented in this encounter [facility] 02-21-2024 Telephone encounter Note Date/Time: 02/21/2024 11:19 AM Spoke with Tez @ phone #: [phone]. Tez - Preferred # for contact: [phone]. Tez Have you received help from a home care company in the last 60 days? no Are you agreeable to [facility] services? yes What address will we be seeing you at?[place] [id number] [place] [address] Do you have any upcoming appointments or things we need to schedule around? no Do you have a teachable CG or can you manage your care independently? Dtr Tez [facility] 02-21-2024 Miscellaneous Notes Date/Time: 02/21/2024 11:19 AM Spoke with Tez @ phone #: [phone]. Tez - Preferred # for contact: [phone]. Tez Have you received help from a home care company in the last 60 days? no Are you agreeable to [facility] services? yes What address will we be seeing you at?Jackelyn Mani [place] [id number] [place], [place] [id number] Do you have any upcoming appointments or things we need to schedule around? no Do you have a teachable CG or can you manage your care independently? Dtr Tez documented in this encounter [facility] 02-19-2024 Note HNO ID: [id number] Author: ISABELLA HARRISON RN Service: Nursing Author Type: Registered Nurse Type: Progress Notes Filed: 02/19/2024 12:22 Note Text: 1145- pt d/c'd home with daughter. All belongings taken with pt. All questions and concerns are answered by this nurse. Pt transported safely via wheelchair to private vehicle in stable condition. [facility] 02-18-2024 Note HNO ID: [id number] Author: SARAH BONNER RN Service: Care Management Author Type: Registered Nurse Type: Care Mgt Progress Note Filed: 02/18/2024 10:11 Note Text: CASE MANAGEMENT PROGRESS NOTE SERVICE DATE: 02/18/2024 SERVICE TIME: 10:10 AM Revisited with pt and granddaughter at bedside. Pt up in chair, no c/o. Plan for discharge 02/18. Pt remains agreeable to [facility]. Both pt and granddaughter deny any other concerns re: discharge home. Pts daughter to transport home 02/18. Will follow SIGNATURE: Sarah Bonner RN PATIENT NAME: Jackelyn Bradshaw DATE: February 18, 2024 TIME: 10:10 AM PAGER/CONTACT #: [phone] [facility] 02-13-2024 Note HNO ID: [id number] Author: DENNY MANNING APRN.CNP Service: Hospital Medicine Author Type: Nurse Practitioner Type: Progress Notes Filed: 02/13/2024 10:45 Note Text: DEPARTMENT OF HOSPITAL MEDICINE PROGRESS NOTE SERVICE DATE: 02/13/2024 SERVICE TIME: 10:02 AM Hospital Medicine/Primary Attending: Arleen Bryant,* NIGHT AND WEEKEND COVERAGE: [facility] MARGARET 7a-7p Page [phone] 7p-7a Subjective INTERVAL HPI: - Patient sitting up in bed - Reports pain to the left hip is tolerable - She is progressing well with therapy - Denies any nausea, vomiting or abdominal pain - Verbalizes no complaints - Possible discharge planning early next week Current Facility-Administered Medications Medication Dose Route Frequency memantine 10 mg tab(s) (NAMENDA) 10 mg ORAL BID divalproex sprinkle 125 mg cap(s) (DEPAKOTE SPRINKLES) 125 mg ORAL BID OLANZapine 5 mg tab(s) (ZYPREXA) 5 mg ORAL AT BEDTIME melatonin 9 mg tab(s) 9 mg ORAL DAILY (8 PM) citalopram 40 mg tab(s) (CeleXA) 40 mg ORAL DAILY miconazole 2 % 1 application topical powder 1 application TOPICAL BID traMADol 50 mg tab(s) (ULTRAM) 50 mg ORAL TID PRN galantamine 12 mg tab(s) (RAZADYNE) 12 mg ORAL BID w MEALS ascorbic acid (vitamin C) 500 mg tab(s) (VITAMIN C) 500 mg ORAL DAILY multivitamin-ferrous fumarate-folic acid 1 tablet (CENTRUM) 1 tablet ORAL DAILY senna-docusate 8.6-50 mg 1 tablet (SENNA-S) 1 tablet ORAL BID acetaminophen 650 mg tab(s) (TYLENOL) 650 mg ORAL q 4 H PRN furosemide 20 mg tab(s) (LASIX) 20 mg ORAL DAILY lisinopril 30 mg tab(s) (ZESTRIL) 30 mg ORAL DAILY oxybutynin 5 mg tab(s) (DITROPAN) 5 mg ORAL DAILY Objective PHYSICAL EXAM: BP 141/62 Pulse 62 Temp (Src) 98 (Oral) Resp 12 Ht 5' 3 (1.60m) Wt 184 lb 1.4 oz (83.5kg) SpO2 95% BMI 32.62 kg/(m2). O2 Therapy: Room Air PHYSICAL EXAMINATION: General appearance: Well appearing, alert, in no acute distress Skin: Skin color, texture, turgor normal, no suspicious rashes or lesions Head: Normocephalic Eyes: Anicteric sclera. Extraocular movements are intact. Oropharynx: MMM Lungs: Lungs clear to auscultation. No wheezing, rhonchi, rales. Heart: + Systolic murmur present Abdomen: Normal abdominal exam, Abdomen soft, non-tender. Extremities: Left hip/LE with expected post op edema. No erythema or signs of infection Lines, Drains, and Airways None DATA: Diagnostic tests reviewed for today's visit: Most recent labs Recent Labs 02/11/24 0639 NA 141 K 4.6 CHLOR 106* CO2 25 BUN 39* CREAT 1.31* GLUC 98 CA 8.7 Assessment/Plan Problem List Aftercare (POA: Yes) HTN (hypertension) (POA: Yes) Cancer of breast, intraductal, left (POA: Yes) Obesity, Class I, BMI 30-34.9 (POA: Yes) Status post hip surgery (POA: Yes) Dementia (HCC) (POA: Yes) Anemia (POA: Yes) Deep tissue injury (POA: No) HOSPITAL COURSE: Jackelyn Bradshaw is a 83 year old female with PMH dementia, breast cancer, arthritis, HTN, CKD, presented to [facility] on 01/12/2024 following a fall at home. She was found to have left hip fracture and underwent ORIF on 01/13/2024. Post-op course was complicated by acute blood loss anemia likely 2/2 surgery; Hgb was 7.6 at [place]. FORTINO on CKD that was resolving at [place] with IVF; Cr 1.97. Lisinopril was initially held, but resumed at [place]. She is WBAT. She was started on Eliquis BID x30 days. She was DCd with sal due to urinary retention. Urine cx was + <1000 salina aguilar (no tx received). PT/OT recommended SNF at [place], thus she was transferred to [facility] for further rehab services. Principal Problem: Aftercare - Hospitalization Dates: 01/12/2024-01/17/2024 - Hospitalization Diagnosis: left intertrochanteric fracture - Discharge Facility: [facility] - PT/OT following - Nutrition following - Case Management following for Discharge Planning - Pain Control: scheduled tylenol and PRN Tramadol - DVT Prophylaxis: Eliquis BID x28 days post op- compelted - PT/OT Restrictions: WBAT - Current Living Situation: Home with family - Code Status: DNR-CCA/DNI L hip fracture S/P L ORIF on 01/13/24 Received IV ATB post-op x3 doses Surgical incision sites x3-- healing well; no sign of infection Eliquis 2.5mg BID x 28 days post op - completed Continue Vit C WBAT PRN Tramadol and tylenol S/p ortho follow-up 01/27-- Erik now all removed Continues to improve with therapy Macrocytic Anemia Hgb 7.6 on 01/15--> repeat 01/18/24 8.2 Likely 2/2 surgery Iron studies normal - repeat CBC on 02/07 with Hg 9.6 FORTINO RESOLVED CKD3 Hospital Cr noted to be 1.97 -->1.15 (baseline 1.1-1.3) Had negative acute renal US on 01/15/24 Avoid nephrotoxins when able Lisinopril dose recently increased and started on oral lasix with noted slight increase in Cr to 1.35 on labs - Repeat BMP on 02/10 showing stable renal function Dementia AANDO x3; forgetful of details on recent h (more content not included)... [facility] 02-08-2024 Note HNO ID: [id number] Author: DENNY MANNING APRN.CNP Service: Hospital Medicine Author Type: Nurse Practitioner Type: Progress Notes Filed: 02/08/2024 13:00 Note Text: DEPARTMENT OF HOSPITAL MEDICINE PROGRESS NOTE SERVICE DATE: 02/08/2024 SERVICE TIME: 11:20 AM Hospital Medicine/Primary Attending: Artur Smith MD NIGHT AND WEEKEND COVERAGE: [facility] MARGARET 7a-7p Page [phone] 7p-7a Subjective INTERVAL HPI: - Ambulating the gunderson with PT then back to room and sitting up in bedside chair - DTI to left hoot present; dressing removed and replaced, educated on importance of elevating heel off bed - Left hip pain is tolerable - Progressing with PT/OT - Lisinopril dose was increased a few days ago due to HTN (amlodipine on hold due to leg swelling); some improvement in BP readings. Noted slight bump in Cr and BUN, will monitor labs on 02/10 Current Facility-Administered Medications Medication Dose Route Frequency memantine 10 mg tab(s) (NAMENDA) 10 mg ORAL BID divalproex sprinkle 125 mg cap(s) (DEPAKOTE SPRINKLES) 125 mg ORAL BID OLANZapine 5 mg tab(s) (ZYPREXA) 5 mg ORAL AT BEDTIME melatonin 9 mg tab(s) 9 mg ORAL DAILY (8 PM) citalopram 40 mg tab(s) (CeleXA) 40 mg ORAL DAILY miconazole 2 % 1 application topical powder 1 application TOPICAL BID traMADol 50 mg tab(s) (ULTRAM) 50 mg ORAL TID PRN galantamine 12 mg tab(s) (RAZADYNE) 12 mg ORAL BID w MEALS ascorbic acid (vitamin C) 500 mg tab(s) (VITAMIN C) 500 mg ORAL DAILY multivitamin-ferrous fumarate-folic acid 1 tablet (CENTRUM) 1 tablet ORAL DAILY senna-docusate 8.6-50 mg 1 tablet (SENNA-S) 1 tablet ORAL BID apixaban 2.5 mg tab(s) (ELIQUIS) 2.5 mg ORAL BID acetaminophen 650 mg tab(s) (TYLENOL) 650 mg ORAL q 4 H PRN furosemide 20 mg tab(s) (LASIX) 20 mg ORAL DAILY lisinopril 30 mg tab(s) (ZESTRIL) 30 mg ORAL DAILY oxybutynin 5 mg tab(s) (DITROPAN) 5 mg ORAL DAILY Objective PHYSICAL EXAM: BP 158/80 Pulse 63 Temp (Src) 97.4 (Oral) Resp 14 Ht 5' 3 (1.60m) Wt 184 lb 1.4 oz (83.5kg) SpO2 99% BMI 32.62 kg/(m2). O2 Therapy: Room Air Physical Exam Performed Physical Exam Vitals reviewed. Constitutional: Appearance: Normal appearance. HENT: Head: Normocephalic and atraumatic. Cardiovascular: Rate and Rhythm: Normal rate and regular rhythm. Pulses: Normal pulses. Heart sounds: Murmur heard. Pulmonary: Effort: Pulmonary effort is normal. No respiratory distress. Breath sounds: Normal breath sounds. No wheezing or rales. Abdominal: General: Abdomen is flat. Bowel sounds are normal. Palpations: Abdomen is soft. Musculoskeletal: Cervical back: Normal range of motion and neck supple. Right lower leg: Edema present. Left lower leg: Edema present. Comments: +non-pitting edema BLE + DTI to L heel-- remains non-blanchable; no sign of infection +right hip surgical incisions healing well x3; most medial incision with small area open, but no drainage. Skin: General: Skin is warm and dry. Capillary Refill: Capillary refill takes less than 2 seconds. Neurological: Mental Status: She is alert and oriented to person, place, and time. Sensory: No sensory deficit. Psychiatric: Mood and Affect: Mood normal. Lines, Drains, and Airways None DATA: Diagnostic tests reviewed for today's visit: Most recent labs Recent Labs 02/08/24 0540 WBC 6.52 HB 9.6* HCT 31.2* PLT 246 NA 142 K 4.7 CHLOR 106* CO2 27 BUN 40* CREAT 1.35* GLUC 89 CA 8.9 Assessment/Plan Problem List Aftercare (POA: Yes) HTN (hypertension) (POA: Yes) Cancer of breast, intraductal, left (POA: Yes) Obesity, Class I, BMI 30-34.9 (POA: Yes) Status post hip surgery (POA: Yes) Dementia (HCC) (POA: Yes) Anemia (POA: Yes) Deep tissue injury (POA: No) HOSPITAL COURSE: Jackelyn Bradshaw is a 83 year old female with PMH dementia, breast cancer, arthritis, HTN, CKD, presented to [facility] on 01/12/2024 following a fall at home. She was found to have left hip fracture and underwent ORIF on 01/13/2024. Post-op course was complicated by acute blood loss anemia likely 2/2 surgery; Hgb was 7.6 [place]. FORTINO on CKD that was resolving at [place] with IVF; Cr 1.97. Lisinopril was initially held, but resumed at [place]. She is WBAT. She was started on Eliquis BID x30 days. She was DCd with sal due to urinary retention. Urine cx was + <1000 merih lauren (no tx received). PT/OT recommended SNF at [place], thus she was transferred to [facility] for further rehab services. Principal Problem: Aftercare - Hospitalization Dates: 01/12/2024-01/17/2024 - Hospitalization Diagnosis: left intertrochanteric fracture - Discharge Facility: [facility] - PT/OT following - Nutrition following - Case Management following for Discharge Planning - Pain Control: scheduled tylenol and PRN Tramadol - DVT Prophylaxis: Eliquis BID x30 days - PT/OT Restrictions: WBAT - Current Living Situ (more content not included)... [facility] 02-05-2024 Note HNO ID: [id number] Author: ARNIE GALVIN APRN.AFSHIN Service: Hospital Medicine Author Type: Nurse Practitioner Type: Progress Notes Filed: 02/05/2024 14:27 Note Text: DEPARTMENT OF HOSPITAL MEDICINE PROGRESS NOTE SERVICE DATE: 02/05/2024 SERVICE TIME: 11:20 AM Hospital Medicine/Primary Attending: Artur Smith MD NIGHT AND WEEKEND COVERAGE: [facility] MARGARET 7a-7p Page [phone] 7p-7a Subjective INTERVAL HPI: - patient sitting up in chair, watching tv - DTI to left hoot present; dressing intact; educated on importance of elevating heel off bed - denies pain, SOB, constipation - Progressing slowly PT/OT - Lisinopril dose was increased a few days ago due to HTN (amlodipine on hold due to leg swelling); some improvement in BP readings. - UA negative for infection on 02/04/2024 (tested due to urinary incontinence) Current Facility-Administered Medications Medication Dose Route Frequency memantine 10 mg tab(s) (NAMENDA) 10 mg ORAL BID divalproex sprinkle 125 mg cap(s) (DEPAKOTE SPRINKLES) 125 mg ORAL BID OLANZapine 5 mg tab(s) (ZYPREXA) 5 mg ORAL AT BEDTIME melatonin 9 mg tab(s) 9 mg ORAL DAILY (8 PM) citalopram 40 mg tab(s) (CeleXA) 40 mg ORAL DAILY miconazole 2 % 1 application topical powder 1 application TOPICAL BID traMADol 50 mg tab(s) (ULTRAM) 50 mg ORAL TID PRN galantamine 12 mg tab(s) (RAZADYNE) 12 mg ORAL BID w MEALS ascorbic acid (vitamin C) 500 mg tab(s) (VITAMIN C) 500 mg ORAL DAILY multivitamin-ferrous fumarate-folic acid 1 tablet (CENTRUM) 1 tablet ORAL DAILY senna-docusate 8.6-50 mg 1 tablet (SENNA-S) 1 tablet ORAL BID apixaban 2.5 mg tab(s) (ELIQUIS) 2.5 mg ORAL BID acetaminophen 650 mg tab(s) (TYLENOL) 650 mg ORAL q 4 H PRN furosemide 20 mg tab(s) (LASIX) 20 mg ORAL DAILY lisinopril 30 mg tab(s) (ZESTRIL) 30 mg ORAL DAILY oxybutynin 5 mg tab(s) (DITROPAN) 5 mg ORAL DAILY Objective PHYSICAL EXAM: BP 153/58 Pulse 66 Temp (Src) 98.1 (Oral) Resp 14 Ht 5' 3 (1.60m) Wt 184 lb 1.4 oz (83.5kg) SpO2 96% BMI 32.62 kg/(m2). O2 Therapy: Room Air Physical Exam Performed Physical Exam Vitals reviewed. Constitutional: Appearance: Normal appearance. HENT: Head: Normocephalic and atraumatic. Cardiovascular: Rate and Rhythm: Normal rate and regular rhythm. Pulses: Normal pulses. Heart sounds: Murmur heard. Pulmonary: Effort: Pulmonary effort is normal. No respiratory distress. Breath sounds: Normal breath sounds. No wheezing or rales. Abdominal: General: Abdomen is flat. Bowel sounds are normal. Palpations: Abdomen is soft. Musculoskeletal: Cervical back: Normal range of motion and neck supple. Right lower leg: Edema present. Left lower leg: Edema present. Comments: +non-pitting edema BLE + DTI to L heel-- remains non-blanchable; no sign of infection +right hip surgical incisions healing well x3; most medial incision with small area open, but no drainage. Skin: General: Skin is warm and dry. Capillary Refill: Capillary refill takes less than 2 seconds. Neurological: Mental Status: She is alert and oriented to person, place, and time. Sensory: No sensory deficit. Psychiatric: Mood and Affect: Mood normal. Lines, Drains, and Airways None DATA: Diagnostic tests reviewed for today's visit: Most recent labs Assessment/Plan Problem List Aftercare (POA: Yes) Status post hip surgery (POA: Yes) Anemia (POA: Yes) Dementia (HCC) (POA: Yes) HTN (hypertension) (POA: Yes) Cancer of breast, intraductal, left (POA: Yes) Obesity, Class I, BMI 30-34.9 (POA: Yes) Deep tissue injury (POA: No) HOSPITAL COURSE: Jackelyn Bradshaw is a 83 year old female with PMH dementia, breast cancer, arthritis, HTN, CKD, presented to [place] on 01/12/2024 following a fall at home. She was found to have left hip fracture and underwent ORIF on 01/13/2024. Post-op course was complicated by acute blood loss anemia likely 2/2 surgery; Hgb was 7.6 at [place]. FORTINO on CKD that was resolving at [place] with IVF; Cr 1.97. Lisinopril was initially held, but resumed at [place]. She is WBAT. She was started on Eliquis BID x30 days. She was DCd with sal due to urinary retention. Urine cx was + <1000 staph wareverti (no tx received). PT/OT recommended SNF at [place], thus she was transferred to [facility] for further rehab services. Principal Problem: Aftercare - Hospitalization Dates: 01/12/2024-01/17/2024 - Hospitalization Diagnosis: left intertrochanteric fracture - Discharge Facility: [facility] - PT/OT Consult - Nutrition Consult - Case Management Consult for Discharge Planning - Pain Control: scheduled tylenol and PRN Tramadol - DVT Prophylaxis: Eliquis BID x30 days - PT/OT Restrictions: WBAT - Current Living Situation: home with family - Code Status: DNR-cca/DNI L hip fracture S/P L ORIF on 01/13/24 Received IV ATB post-op x3 doses Surgical incision sites x3-- healing well; no sign of infection Eliquis 2.5m (more content not included)... [facility] 02-04-2024 Note HNO ID: [id number] Author: SARAH BONNER RN Service: Care Management Author Type: Registered Nurse Type: Care Mgt Progress Note Filed: 02/04/2024 16:17 Note Text: CASE MANAGEMENT PROGRESS NOTE SERVICE DATE: 02/04/2024 SERVICE TIME: 4:16 PM Received call from Margaret at [facility] - updated that appeal was approved and requested clinicals. Clinical documentation uploaded to [facility] [employer]. Will follow SIGNATURE: Sarah Bonner RN PATIENT NAME: Jackelyn Bradshaw DATE: February 04, 2024 TIME: 4:16 PM PAGER/CONTACT #: [phone] [facility] 02-03-2024 Note HNO ID: [id number] Author: ARNIE GALVIN APRN.CNP Service: Hospital Medicine Author Type: Nurse Practitioner Type: Plan of Care Filed: 02/03/2024 12:49 Note Text: DEPARTMENT OF HOSPITAL MEDICINE PLAN OF CARE NOTE SERVICE DATE: February 03, 2024 SERVICE TIME: 12:48 PM Hospital Medicine/Primary Attending: Department of Hospital Medicine NIGHT AND WEEKEND COVERAGE: [facility] Coverage PLAN OF CARE Therapy concerned about worsening urinary incontinence. Will check UA for infection. Also restart Oxybutynin (decrease to daily). BP has been running higher (Amlodipine previously stopped due to leg swelling). Will increase Lisinopril to 30mg daily. Continue to monitor BPs. SIGNATURE: Arnie Galvin APRN.CNP PATIENT NAME: Jackelyn Bradshaw DATE: February 03, 2024 TIME: 12:48 PM [facility] 02-01-2024 Note HNO ID: [id number] Author: SARAH BONNER RN Service: Care Management Author Type: Registered Nurse Type: Care Mgt Progress Note Filed: 02/01/2024 13:46 Note Text: CASE MANAGEMENT PROGRESS NOTE SERVICE DATE: 02/01/2024 SERVICE TIME: 1:44 PM Revisited with pt and granddaughter at bedside during rounds with Arnie Galvin CNP. Pt up in chair, no current c/o. Plan remains for pt to return home with granddaughter. Insurance review due 02/01. Will follow SIGNATURE: Sarah Bonner RN PATIENT NAME: Jackelyn Bradshaw DATE: February 01, 2024 TIME: 1:44 PM PAGER/CONTACT #: [phone] [facility] 02-01-2024 Note HNO ID: [id number] Author: ARNIE GALVIN APRN.CNP Service: Hospital Medicine Author Type: Nurse Practitioner Type: Progress Notes Filed: 02/01/2024 18:17 Note Text: DEPARTMENT OF HOSPITAL MEDICINE PROGRESS NOTE SERVICE DATE: 02/01/2024 SERVICE TIME: 11:20 AM Hospital Medicine/Primary Attending: Artur Smith MD NIGHT AND WEEKEND COVERAGE: [facility] MARGARET 7a-7p Page [phone] 7p-7a Subjective INTERVAL HPI: - patient sitting up in chair, visiting with granddaughter and great grandson - DTI to left hoot present; dressing intact; educated on importance of elevating heel off bed - denies pain, SOB, constipation - Progressing with PT/OT - Rest of erik removed at ortho follow-up on 01/27 Current Facility-Administered Medications Medication Dose Route Frequency memantine 10 mg tab(s) (NAMENDA) 10 mg ORAL BID divalproex sprinkle 125 mg cap(s) (DEPAKOTE SPRINKLES) 125 mg ORAL BID lisinopril 20 mg tab(s) (ZESTRIL) 20 mg ORAL DAILY OLANZapine 5 mg tab(s) (ZYPREXA) 5 mg ORAL AT BEDTIME melatonin 9 mg tab(s) 9 mg ORAL DAILY (8 PM) citalopram 40 mg tab(s) (CeleXA) 40 mg ORAL DAILY miconazole 2 % 1 application topical powder 1 application TOPICAL BID traMADol 50 mg tab(s) (ULTRAM) 50 mg ORAL TID PRN galantamine 12 mg tab(s) (RAZADYNE) 12 mg ORAL BID w MEALS ascorbic acid (vitamin C) 500 mg tab(s) (VITAMIN C) 500 mg ORAL DAILY multivitamin-ferrous fumarate-folic acid 1 tablet (CENTRUM) 1 tablet ORAL DAILY senna-docusate 8.6-50 mg 1 tablet (SENNA-S) 1 tablet ORAL BID apixaban 2.5 mg tab(s) (ELIQUIS) 2.5 mg ORAL BID acetaminophen 650 mg tab(s) (TYLENOL) 650 mg ORAL q 4 H PRN furosemide 20 mg tab(s) (LASIX) 20 mg ORAL DAILY Objective PHYSICAL EXAM: BP 145/56 Pulse 70 Temp (Src) 98.1 (Oral) Resp 18 Ht 5' 3 (1.60m) Wt 184 lb 1.4 oz (83.5kg) SpO2 97% BMI 32.62 kg/(m2). O2 Therapy: Room Air Physical Exam Performed Physical Exam Vitals reviewed. Constitutional: Appearance: Normal appearance. HENT: Head: Normocephalic and atraumatic. Cardiovascular: Rate and Rhythm: Normal rate and regular rhythm. Pulses: Normal pulses. Heart sounds: Murmur heard. Pulmonary: Effort: Pulmonary effort is normal. No respiratory distress. Breath sounds: Normal breath sounds. No wheezing or rales. Abdominal: General: Abdomen is flat. Bowel sounds are normal. Palpations: Abdomen is soft. Musculoskeletal: Cervical back: Normal range of motion and neck supple. Right lower leg: Edema present. Left lower leg: Edema present. Comments: +non-pitting edema BLE + DTI to L heel-- remains non-blanchable; no sign of infection +right hip surgical incisions healing well x3; most medial incision with small area open, but no drainage. Skin: General: Skin is warm and dry. Capillary Refill: Capillary refill takes less than 2 seconds. Comments: L hip incisions healing well All erik removed Neurological: Mental Status: She is alert and oriented to person, place, and time. Sensory: No sensory deficit. Psychiatric: Mood and Affect: Mood normal. Lines, Drains, and Airways None DATA: Diagnostic tests reviewed for today's visit: Most recent labs Most recent imaging CBC, Coags, BMP, Mg, Phos Recent Labs 02/01/24 0510 WBC 6.01 HB 8.5* HCT 27.5* PLT 240 NA 142 K 4.6 CHLOR 107* CO2 28 BUN 26* CREAT 1.15* GLUC 99 CA 8.3* MG 2.2 Assessment/Plan Problem List Aftercare (POA: Yes) Status post hip surgery (POA: Yes) Anemia (POA: Yes) Dementia (HCC) (POA: Yes) HTN (hypertension) (POA: Yes) Cancer of breast, intraductal, left (POA: Yes) Obesity, Class I, BMI 30-34.9 (POA: Yes) Deep tissue injury (POA: No) HOSPITAL COURSE: Jackelyn Bradshaw is a 83 year old female with PMH dementia, breast cancer, arthritis, HTN, CKD, presented to [place] on 01/12/2024 following a fall at home. She was found to have left hip fracture and underwent ORIF on 01/13/2024. Post-op course was complicated by acute blood loss anemia likely 2/2 surgery; Hgb was 7.6 at [place]. FORTINO on CKD that was resolving at [place] with IVF; Cr 1.97. Lisinopril was initially held, but resumed at [place]. She is WBAT. She was started on Eliquis BID x30 days. She was DCd with sal due to urinary retention. Urine cx was + <1000 merih lauren (no tx received). PT/OT recommended SNF at [place], thus she was transferred to [facility] for further rehab services. Principal Problem: Aftercare - Hospitalization Dates: 01/12/2024-01/17/2024 - Hospitalization Diagnosis: left intertrochanteric fracture - Discharge Facility: [facility] - PT/OT Consult - Nutrition Consult - Case Management Consult for Discharge Planning - Pain Control: scheduled tylenol and PRN Tramadol - DVT Prophylaxis: Eliquis BID x30 days - PT/OT Restrictions: WBAT - Current Living Situation: home with family - Code Status: DNR-cca/DNI L hip fracture S/P L ORIF on 01/13/24 Received IV (more content not included)... [facility] 01-29-2024 Note HNO ID: [id number] Author: SARAH BONNER RN Service: Care Management Author Type: Registered Nurse Type: Care Mgt Progress Note Filed: 01/29/2024 12:15 Note Text: CASE MANAGEMENT PROGRESS NOTE SERVICE DATE: 01/29/2024 SERVICE TIME: 12:09 PM Revisited with pt at bedside during rounds with Melva Connor CNP. Pt in bed, no c/o. Updated pt that insurance review due today. She plans to return home with her family. Care conference scheduled today. Will follow SIGNATURE: Sarah Bonner RN PATIENT NAME: Jackelyn Bradshaw DATE: January 29, 2024 TIME: 12:08 PM PAGER/CONTACT #: [phone] [facility] 01-29-2024 Note HNO ID: [id number] Author: FARIBA CONNOR APRN.CNP Service: Hospital Medicine Author Type: Nurse Practitioner Type: Progress Notes Filed: 01/29/2024 10:24 Note Text: DEPARTMENT OF HOSPITAL MEDICINE PROGRESS NOTE SERVICE DATE: 01/29/2024 SERVICE TIME: 8:08 AM Hospital Medicine/Primary Attending: Quincy Koo MD NIGHT AND WEEKEND COVERAGE: [facility] MARGARET 7a-7p Page [phone] 7p-7a Subjective INTERVAL HPI: Seen and examined Edema to LE improving Labs stable Has DTI to L heel Wound care orders placed Insurance review today Progressing with PT/OT Rest of erik removed at ortho follow-up 01/27 Current Facility-Administered Medications Medication Dose Route Frequency memantine 10 mg tab(s) (NAMENDA) 10 mg ORAL BID divalproex sprinkle 125 mg cap(s) (DEPAKOTE SPRINKLES) 125 mg ORAL BID lisinopril 20 mg tab(s) (ZESTRIL) 20 mg ORAL DAILY OLANZapine 5 mg tab(s) (ZYPREXA) 5 mg ORAL AT BEDTIME melatonin 9 mg tab(s) 9 mg ORAL DAILY (8 PM) citalopram 40 mg tab(s) (CeleXA) 40 mg ORAL DAILY miconazole 2 % 1 application topical powder 1 application TOPICAL BID traMADol 50 mg tab(s) (ULTRAM) 50 mg ORAL TID PRN galantamine 12 mg tab(s) (RAZADYNE) 12 mg ORAL BID w MEALS ascorbic acid (vitamin C) 500 mg tab(s) (VITAMIN C) 500 mg ORAL DAILY multivitamin-ferrous fumarate-folic acid 1 tablet (CENTRUM) 1 tablet ORAL DAILY senna-docusate 8.6-50 mg 1 tablet (SENNA-S) 1 tablet ORAL BID apixaban 2.5 mg tab(s) (ELIQUIS) 2.5 mg ORAL BID acetaminophen 650 mg tab(s) (TYLENOL) 650 mg ORAL q 4 H PRN furosemide 20 mg tab(s) (LASIX) 20 mg ORAL DAILY Objective PHYSICAL EXAM: BP 123/47 Pulse 69 Temp (Src) 98 (Oral) Resp 16 Ht 5' 3 (1.60m) Wt 184 lb 1.4 oz (83.5kg) SpO2 91% BMI 32.62 kg/(m2). O2 Therapy: Room Air Physical Exam Performed Physical Exam Vitals reviewed. Constitutional: Appearance: She is normal weight. HENT: Head: Normocephalic and atraumatic. Nose: Nose normal. Mouth/Throat: Mouth: Mucous membranes are moist. Pharynx: Oropharynx is clear. Cardiovascular: Rate and Rhythm: Normal rate and regular rhythm. Pulses: Normal pulses. Pulmonary: Effort: Pulmonary effort is normal. No respiratory distress. Breath sounds: Normal breath sounds. No stridor. No wheezing or rales. Abdominal: General: Bowel sounds are normal. Palpations: Abdomen is soft. Tenderness: There is no abdominal tenderness. Musculoskeletal: Cervical back: Normal range of motion and neck supple. Right lower le+ Edema present. Left lower le+ Edema present. Comments: DTI to L heel Skin: General: Skin is warm and dry. Capillary Refill: Capillary refill takes less than 2 seconds. Comments: L hip incisions healing well All erik removed Neurological: Mental Status: She is alert and oriented to person, place, and time. Psychiatric: Mood and Affect: Mood normal. Lines, Drains, and Airways None DATA: Diagnostic tests reviewed for today's visit: Most recent labs Most recent imaging CBC, Coags, BMP, Mg, Phos Recent Labs 01/29/24 0641 01/27/24 0536 WBC 7.88 7.62 HB 8.1* 7.9* HCT 25.7* 25.4* PLT 249 277 NA 141 143 K 4.3 4.3 CHLOR 107* 110* CO2 26 26 BUN 24* 24* CREAT 1.23* 1.20* GLUC 94 86 CA 8.3* 8.2* Assessment/Plan Problem List Aftercare (POA: Yes) HTN (hypertension) (POA: Yes) Acute kidney injury superimposed on CKD (HCC) (HCC) (POA: Yes) Cancer of breast, intraductal, left (POA: Yes) Obesity, Class I, BMI 30-34.9 (POA: Yes) Status post hip surgery (POA: Yes) Dementia (HCC) (POA: Yes) Anemia (POA: Yes) Urinary retention (POA: Status not on file) HOSPITAL COURSE: Jackelyn Bradshaw is a 83 year old female with PMH dementia, breast cancer, arthritis, HTN, CKD, presented to [place] on 01/12/2024 following a fall at home. She was found to have left hip fracture and underwent ORIF on 01/13/2024. Post-op course was complicated by acute blood loss anemia likely 2/2 surgery; Hgb was 7.6 at [place]. FORTINO on CKD that was resolving at [place] with IVF; Cr 1.97. Lisinopril was initially held, but resumed at [place]. She is WBAT. She was started on Eliquis BID x30 days. She was DCd with sal due to urinary retention. Urine cx was + <1000 staph warneri (no tx received). PT/OT recommended SNF at [place], thus she was transferred to [facility] for further rehab services. Principal Problem: Aftercare - Hospitalization Dates: 01/12/2024-01/17/2024 - Hospitalization Diagnosis: left intertrochanteric fracture - Discharge Facility: [facility] - PT/OT Consult - Nutrition Consult - Case Management Consult for Discharge Planning - Pain Control: scheduled tylenol and PRN Tramadol - DVT Prophylaxis: Eliquis BID x30 days - PT/OT Restrictions: WBAT - Current Living Situation: home with family - Code Status: DNR-cca/DNI L hip fracture S/P L ORIF on 01/13/24 Received IV ATB post-op x3 doses Surgical (more content not included)... [facility] 01-27-2024 Note HNO ID: [id number] Author: FARIBA CONNOR APRN.CNP Service: Hospital Medicine Author Type: Nurse Practitioner Type: Progress Notes Filed: 01/27/2024 12:52 Note Text: DEPARTMENT OF HOSPITAL MEDICINE PROGRESS NOTE SERVICE DATE: 01/27/2024 SERVICE TIME: 12:37 PM Hospital Medicine/Primary Attending: Quincy Koo MD NIGHT AND WEEKEND COVERAGE: [facility] MARGARET 7a-7p Page [phone] 7p-7a Subjective INTERVAL HPI: No new complaints Reports pain well controlled Has follow-up with orthopedics tomorrow Stapes intact with scant amount serous fluid Labs reviewed Iron studies pending Current Facility-Administered Medications Medication Dose Route Frequency memantine 10 mg tab(s) (NAMENDA) 10 mg ORAL BID divalproex sprinkle 125 mg cap(s) (DEPAKOTE SPRINKLES) 125 mg ORAL BID lisinopril 20 mg tab(s) (ZESTRIL) 20 mg ORAL DAILY OLANZapine 5 mg tab(s) (ZYPREXA) 5 mg ORAL AT BEDTIME amLODIPine 5 mg tab(s) (NORVASC) 5 mg ORAL DAILY melatonin 9 mg tab(s) 9 mg ORAL DAILY (8 PM) citalopram 40 mg tab(s) (CeleXA) 40 mg ORAL DAILY miconazole 2 % 1 application topical powder 1 application TOPICAL BID traMADol 50 mg tab(s) (ULTRAM) 50 mg ORAL TID PRN galantamine 12 mg tab(s) (RAZADYNE) 12 mg ORAL BID w MEALS ascorbic acid (vitamin C) 500 mg tab(s) (VITAMIN C) 500 mg ORAL DAILY multivitamin-ferrous fumarate-folic acid 1 tablet (CENTRUM) 1 tablet ORAL DAILY senna-docusate 8.6-50 mg 1 tablet (SENNA-S) 1 tablet ORAL BID apixaban 2.5 mg tab(s) (ELIQUIS) 2.5 mg ORAL BID acetaminophen 1,000 mg tab(s) (TYLENOL) 1,000 mg ORAL q 8 H Objective PHYSICAL EXAM: BP 161/61 Pulse 77 Temp (Src) 97.9 (Oral) Resp 16 Ht 5' 3 (1.60m) Wt 184 lb 1.4 oz (83.5kg) SpO2 94% BMI 32.62 kg/(m2). O2 Therapy: Room Air Physical Exam Performed Physical Exam Vitals reviewed. Constitutional: Appearance: She is normal weight. HENT: Head: Normocephalic and atraumatic. Nose: Nose normal. Mouth/Throat: Mouth: Mucous membranes are moist. Pharynx: Oropharynx is clear. Cardiovascular: Rate and Rhythm: Normal rate and regular rhythm. Pulses: Normal pulses. Pulmonary: Effort: Pulmonary effort is normal. No respiratory distress. Breath sounds: Normal breath sounds. No stridor. No wheezing or rales. Abdominal: General: Bowel sounds are normal. Palpations: Abdomen is soft. Tenderness: There is no abdominal tenderness. Musculoskeletal: Cervical back: Normal range of motion and neck supple. Right lower leg: Edema present. Left lower leg: Edema present. Skin: General: Skin is warm and dry. Capillary Refill: Capillary refill takes less than 2 seconds. Comments: L hip erik dry and intact. Scant amount serous drainage Neurological: Mental Status: She is alert and oriented to person, place, and time. Psychiatric: Mood and Affect: Mood normal. Lines, Drains, and Airways None DATA: Diagnostic tests reviewed for today's visit: Most recent labs Most recent imaging CBC, Coags, BMP, Mg, Phos Recent Labs 01/27/24 0536 WBC 7.62 HB 7.9* HCT 25.4* PLT 277 NA 143 K 4.3 CHLOR 110* CO2 26 BUN 24* CREAT 1.20* GLUC 86 CA 8.2* Assessment/Plan Problem List Aftercare (POA: Yes) HTN (hypertension) (POA: Yes) Acute kidney injury superimposed on CKD (HCC) (HCC) (POA: Yes) Cancer of breast, intraductal, left (POA: Yes) Obesity, Class I, BMI 30-34.9 (POA: Yes) Status post hip surgery (POA: Yes) Dementia (HCC) (POA: Yes) Anemia (POA: Yes) Urinary retention (POA: Status not on file) HOSPITAL COURSE: Jackelyn Bradshaw is a 83 year old female with PMH dementia, breast cancer, arthritis, HTN, CKD, presented to [place] on 01/12/2024 following a fall at home. She was found to have left hip fracture and underwent ORIF on 01/13/2024. Post-op course was complicated by acute blood loss anemia likely 2/2 surgery; Hgb was 7.6 at [place]. FORTINO on CKD that was resolving at [place] with IVF; Cr 1.97. Lisinopril was initially held, but resumed at [place]. She is WBAT. She was started on Eliquis BID x30 days. She was DCd with sal due to urinary retention. Urine cx was + <1000 staph tayei (no tx received). PT/OT recommended SNF at [place], thus she was transferred to [facility] for further rehab services. Principal Problem: Aftercare - Hospitalization Dates: 01/12/2024-01/17/2024 - Hospitalization Diagnosis: left intertrochanteric fracture - Discharge Facility: [facility] - PT/OT Consult - Nutrition Consult - Case Management Consult for Discharge Planning - Pain Control: scheduled tylenol and PRN Tramadol - DVT Prophylaxis: Eliquis BID x30 days - PT/OT Restrictions: WBAT - Current Living Situation: home with family - Code Status: DNR-cca/DNI L hip fracture S/P L ORIF on 01/13/24 Received IV ATB post-op x3 doses Surgical incision sites x3-- erik removed from 2/3 sites; medial site still with erik as there is small amount of daniel (more content not included)... [facility] 01-27-2024 Note HNO ID: [id number] Author: SARAH BONNER RN Service: Care Management Author Type: Registered Nurse Type: Care Mgt Progress Note Filed: 01/27/2024 12:23 Note Text: CASE MANAGEMENT PROGRESS NOTE SERVICE DATE: 01/27/2024 SERVICE TIME: 12:18 PM Revisited with pt during rounds with Melva Connor CNP. PT up in chair, answers questions appropriately. Updated pt on insurance review due again 01/28 and that insurance may not cover much more time. Her plan is to return home. She did state she has not been able to ambulate far d/t left leg pain. Remaining erik intact- no drainage noted. Pt has ortho f/u appt at [facility] 01/27. Will follow SIGNATURE: Sarah Bonner RN PATIENT NAME: Jackelyn Bradshaw DATE: January 27, 2024 TIME: 12:18 PM PAGER/CONTACT #: [phone] [facility] 01-25-2024 Note HNO ID: [id number] Author: SARAH BONNER RN Service: Care Management Author Type: Registered Nurse Type: Care Mgt Progress Note Filed: 01/25/2024 13:32 Note Text: CASE MANAGEMENT PROGRESS NOTE SERVICE DATE: 01/25/2024 SERVICE TIME: 1:31 PM Ortho f/u appt at [facility] 01/27 830am- arranged wc transport. Updated pt and daughter Tez. Tez will meet pt at ortho office for appt. [facility] will bring wc for transport. SIGNATURE: Sarah Bonner RN PATIENT NAME: Jackelyn Bradshaw DATE: January 25, 2024 TIME: 1:31 PM PAGER/CONTACT #: [phone] [facility] 01-22-2024 Note HNO ID: [id number] Author: ARNIE GALVIN APRN.CNP Service: Hospital Medicine Author Type: Nurse Practitioner Type: Progress Notes Filed: 01/22/2024 12:32 Note Text: DEPARTMENT OF HOSPITAL MEDICINE PROGRESS NOTE SERVICE DATE: 01/22/2024 SERVICE TIME: 12:21 PM Hospital Medicine/Primary Attending: Hermes Richardson MD NIGHT AND WEEKEND COVERAGE: [facility] MARGARET 7a-7p Page [phone] 7p-7a Subjective INTERVAL HPI: - patient resting in bed; reports left hip pain is worse with movement - started scheduled tylenol (monitor closely for hallucinations; patient reports she has issues in the past one time and has not taken tylenol since, but willing to try again for better pain control). - hip incisions healing well; 17 erik removed. Left middle incision erik in place as there is still mild clear drainage and still appears to be healing. - no SOB, CP, constipation. Current Facility-Administered Medications Medication Dose Route Frequency memantine 10 mg tab(s) (NAMENDA) 10 mg ORAL BID divalproex sprinkle 125 mg cap(s) (DEPAKOTE SPRINKLES) 125 mg ORAL BID lisinopril 20 mg tab(s) (ZESTRIL) 20 mg ORAL DAILY OLANZapine 5 mg tab(s) (ZYPREXA) 5 mg ORAL AT BEDTIME amLODIPine 5 mg tab(s) (NORVASC) 5 mg ORAL DAILY melatonin 9 mg tab(s) 9 mg ORAL DAILY (8 PM) citalopram 40 mg tab(s) (CeleXA) 40 mg ORAL DAILY miconazole 2 % 1 application topical powder 1 application TOPICAL BID acetaminophen 650 mg tab(s) (TYLENOL) 650 mg ORAL q 4 H PRN traMADol 50 mg tab(s) (ULTRAM) 50 mg ORAL TID PRN galantamine 12 mg tab(s) (RAZADYNE) 12 mg ORAL BID w MEALS ascorbic acid (vitamin C) 500 mg tab(s) (VITAMIN C) 500 mg ORAL DAILY multivitamin-ferrous fumarate-folic acid 1 tablet (CENTRUM) 1 tablet ORAL DAILY senna-docusate 8.6-50 mg 1 tablet (SENNA-S) 1 tablet ORAL BID apixaban 2.5 mg tab(s) (ELIQUIS) 2.5 mg ORAL BID Objective PHYSICAL EXAM: BP 122/44 Pulse 74 Temp (Src) 98.4 (Oral) Resp 16 Ht 5' 3 (1.60m) Wt 184 lb 1.4 oz (83.5kg) SpO2 97% BMI 32.62 kg/(m2). O2 Therapy: Room Air Physical Exam Performed GENERAL: Alert, no distress, cooperative SKIN: Skin color, texture, turgor normal. No rashes. + bruising to left pubic area. HEAD/SINUSES: No significant findings, NC/AT LUNGS: Lungs clear to auscultation, Good diaphragmatic excursion CARDIAC: +Murmur, RRR ABDOMEN: Abdomen soft, non-tender, BS normal EXTREMITIES: + left hip surgical incision x3 all without signs of infection; small amount of serous drainage present to medial site- erik in place. Post-op edema present. Hurley removed from proximal and lateral sites. +blister near medial surgical site healing well. +bruising present to posterior left thigh NEURO: Grossly normal cognition, Sensation grossly intact PULSES: 2+ radial, 2+ dorsalis pedis Lines, Drains, and Airways Line Duration Peripheral 01/15/24 1000 External Facility Midline Right Forearm 6 days Reviewed lines and will discuss with nurse to discontinue. DATA: Diagnostic tests reviewed for today's visit: Most recent labs Assessment/Plan Problem List Aftercare (POA: Yes) Status post hip surgery (POA: Yes) Anemia (POA: Yes) Acute kidney injury superimposed on CKD (HCC) (HCC) (POA: Yes) Dementia (HCC) (POA: Yes) HTN (hypertension) (POA: Yes) Cancer of breast, intraductal, left (POA: Yes) Obesity, Class I, BMI 30-34.9 (POA: Yes) Urinary retention (POA: Status not on file) HOSPITAL COURSE: Jackelyn Bradshaw is a 83 year old female with PMH dementia, breast cancer, arthritis, HTN, CKD, presented to [place] on 01/12/2024 following a fall at home. She was found to have left hip fracture and underwent ORIF on 01/13/2024. Post-op course was complicated by acute blood loss anemia likely 2/2 surgery; Hgb was 7.6 at [place]. FORTINO on CKD that was resolving at [place] with IVF; Cr 1.97. Lisinopril was initially held, but resumed at [place]. She is WBAT. She was started on Eliquis BID x30 days. She was DCd with sal due to urinary retention. Urine cx was + <1000 salina aguilar (no tx received). PT/OT recommended SNF at [place], thus she was transferred to [facility] for further rehab services. Principal Problem: Aftercare - Hospitalization Dates: 01/12/2024-01/17/2024 - Hospitalization Diagnosis: left intertrochanteric fracture - Discharge Facility: [facility] - PT/OT Consult - Nutrition Consult - Case Management Consult for Discharge Planning - Pain Control: scheduled tylenol and PRN Tramadol - DVT Prophylaxis: Eliquis BID x30 days - PT/OT Restrictions: WBAT - Current Living Situation: home with family - Code Status: DNR-cca/DNI Active Problems: S/P hip surgery S/P ORIF on 01/13/24 Received IV ATB post-op x3 doses Surgical incision sites x3-- erik removed from 2/3 sites; medial site still with erik as there is small amount of clear drainage present. Eliquis 2.5mg BID x30 days (until 02/10/24) WBAT Start scheduled t (more content not included)... [facility] 01-18-2024 Note HNO ID: [id number] Author: KEYSHAWN HERNANDEZ, RN Service: Nursing Author Type: Registered Nurse Type: Nursing Progress Note Filed: 01/18/2024 13:32 Note Text: Sal discontinued per LIP order. [facility] 01-18-2024 Note HNO ID: [id number] Author: SARAH BONNER, NARINDER Service: Care Management Author Type: Registered Nurse Type: Care Mgt Progress Note Filed: 01/18/2024 13:10 Note Text: CASE MANAGEMENT PROGRESS NOTE SERVICE DATE: 01/18/2024 SERVICE TIME: 1:01 PM Met with pt at bedside during rounds with Arnie Galvin CNP. Pt admitted from [facility] s/p left hip repair d/t fall- left hip fx. Pt arouses easily and answers questions appropriately. Pt lives with her grandson, his , and baby. She plan is to return on discharge. Left hip dressing- drainage noted- bedside RN aware. Pts daughter Tez is legal guardian. Will follow SIGNATURE: Sarah Bonner RN PATIENT NAME: Jackelyn Bradshaw DATE: January 18, 2024 TIME: 1:01 PM PAGER/CONTACT #: [phone] [facility] 01-17-2024 Discharge summary Note Date/Time January 17, 2024 10:53am [facility] Medical Records Department [address] [place] [id number] Discharge Summary 01/17/24 1053 MR#: [id number] Acct: [id number] Name: JACKELYN BRADSHAW Rep #:[id number] : 1940 83 From: Dani Jaramillo DO PCP: Dr. Yoav Chakraborty MD Status:A DM IN Location: [facility] [id number] Providers Date of Admission: 01/12/24 Date of Discharge: 01/17/24 Primary Care Physician: Dr. Yoav Chakraborty MD Consultations 01/12/24 18:38 Consult: Orthopedics Routine Consulting Provider: David Morgan Reason for Consult: Left hip fracture EMERGENT Consult: No MD Notified: Yes Date Notified: 01/12/24 Time Notified: 17:54 Method of Notification: ED Physician Initiated Reason For Visit: HIP FRACTURE LEFT Diagnosis Discharge Diagnosis (1) Fracture, intertrochanteric, left femur: Status: Acute Code(s): S72.142A - Displaced intertrochanteric fracture of left femur, initial encounterfor closed fracture Plan 1. Left intertrochanteric fracture secondary to osteoporosis-postop day #4 ORIF-PT and OT work with the patient, orthopedic surgery is seeing the patient, we are awaiting approval for the patient to go to the TCU in [place] #2 essential hypertension-patient will remain on her home medications #3 dementia-patient will remain on her home medications, complicates care, management, recovery, and prognosis #4 acute anemia of blood loss as expected consequence from left intertrochanteric hip fracture #5 acute kidney injury-resolving #6 acute blood loss anemia secondary to expected acute blood loss from left hip fracture Total clinical time spent by myself addressing patient's medical issues, reviewing all of her data, and collaborating with patient's care team: 35 minutes Medications at Discharge Home Medications lisinopril 40 mg tablet (Zestril) 20 mg PO DAILY 12/30/16 olanzapine 5 mg tablet 5 mg PO DAILY 08/05/22 oxybutynin chloride 5 mg tablet 5 mg PO BID 08/05/22 amlodipine 5 mg tablet 5 mg PO DAILY 01/12/24 citalopram 40 mg tablet 40 mg PO DAILY 01/12/24 cyclobenzaprine 5 mg tablet 5 mg PO QHS 01/12/24 divalproex 125 mg capsule,delayed release sprinkle 125 mg PO BID 01/12/24 galantamine 24 mg 24 hr capsule,extended release 24 mg PO DAILY 01/12/24 melatonin 10 mg capsule 10 mg PO QHS 01/12/24 memantine 10 mg tablet 10 mg PO BID 01/12/24 acetaminophen 650 mg/20.3 mL oral solution 650 mg (20.3 mL) PO Q6H PRN PRN Pain 1-10 Or Fever #0 mL 01/17/24 apixaban 5 mg tablet (Eliquis) 2.5 mg (1/2 x 5 mg) PO BID #1 TAB 01/17/24 nystatin 100,000 unit/gram topical powder (Nyamyc) 1 applic topical BID #0 grams01/17/24 Hospital Course Operations - (Gamma nail insertion in the left hip for repair of left hip fracture) Procedures None Summary of Care Provided Minutes Spent on Discharge: 32 Hospital Course: This 83-year-old white female was seen in the emergency room at [facility] after sustaining a mechanical fall at home. Workup in the emergency room included x-rays which showed an intertrochanteric fracture of theleft hip. Patient was admitted to [place] [address] and seen in consultation by orthopedic surgery, she was felt to be stable to undergo ORIF of the left hip fracture, gamma nail was inserted and there were no complications to the surgery. Patient was seen by PT and OT, postop patient's renal functions declined and she was given IV fluids and following this, the renal functions improved. Arrangements were made for the patient to go to the TCU unit at [facility] in [facility]. Patient required 1 unit of packed red blood cells due toa low hemoglobin during her hospitalization. On 01/17/2024, patient was seen and examined:alert and no apparent distress Constitutional Narrative: Patient appears her stated age General Appearance: cooperative, well kempt and well developed Orientation / Consciousness: awake and oriented to person HEENT normocephalic, head/scalp atraumatic and moist oral mucous membranes Eyes PERRL, EOMs intact bilaterally and conjunctivae normal Neck supple, no JVD, thyroid normal and no carotid bruits General: trachea midline Resp normal respiratory effort, no retractions, no use of accessory muscles and clearto auscultation bilaterally Auscultation: Negative for rales, rhonchi or wheezes Cardio regular rate, regular rhythm, S1 normal heart sound, S2 normal heart sound, no murmurs, no rub and no gallops GI normal to inspection, nondistended, normoactive bowel sounds, soft to palpation,non-tender and non-distended Skin no rashes or lesions noted General Skin Exam: no breakdown Neuro CN's II-XII intact bilaterally and no focal motor deficits Neuro Narrative: Patient is confused Sensorium / Orientation: awake and alert Psych Psych Narrative: Patient exhibits confusion but does answer simple questions appropriately at times Patient appear to be stable for discharge to [facility] in stable condition on 01/17/2024 Weight / BMI Weight Weight: 75.568 kg Body Mass Index (BMI) 30.4 ABG / Lab / Microbiology Data 01/17/24 06:40 01/17/24 06:40 Laboratory: Laboratory Results - last 24 hr 01/16/24 13:55: Blood Type B POSITIVE, Antibody Screen NEGATIVE, Crossmatch See Detail 01/17/24 06:40: Hgb 7.6 L, Hct 23.6 L, Sodium 141, Potassium 5.2 H, Chloride 114H, Carbon Dioxide 26.0, Anion Gap 1 L, BUN 77 H, Creatinine 1.97 H, Estim Creat Clear Calc 20.59, Est GFR (MDRD) Af Amer 31 L, Est GFR (MDRD) Non-Af 26 L, BUN/Creatinine Ratio 39.1 H, Glucose 90, Calcium 7.7 L Microbiology: Microbiology 01/12/24 15:33 Urine Catheter - Sal Urine Culture - Final Staphylococcus warneri Meaningful Use Info Meaningful Use Diagnoses (Choose all that apply): None applicable Discharge Plan Admission Admit Date/Time: 01/12/24 17:27 Primary Reason for Your Visit: Left intertrochanteric fracture Attending Provider: Dani Jaramillo Primary Care Provider: Yoav Chakraborty Consulting Providers: David Morgan; Howard Fragoso Discharge Orders/Prescriptions Prescriptions: New nystatin [Nyamyc] 100,000 unit/gram Powder 1 applic topical BID Qty: 0 0RF Protocol: *Topical Application Instructions APPLICATION INSTRUCTIONS: folds acetaminophen 650 mg/20.3 mL Solution 650 mg PO Q6H PRN PRN (Reason: Pain 1-10 Or Fever) Qty: 0 0RF Eliquis 5 mg Tablet 2.5 mg PO BID Qty: 1 0RF Rx Instructions: for 60 doses (30 days) Continued lisinopril [Zestril] 40 MG tablet 20 mg PO DAILY oxybutynin chloride 5 mg Tablet 5 mg PO BID olanzapine 5 mg tablet 5 mg PO DAILY galantamine 24 mg capsule,ext rel. pellets 24 hr 24 mg PO DAILY divalproex 125 mg capsule, delayed rel sprinkle 125 mg PO BID cyclobenzaprine 5 mg tablet 5 mg PO QHS melatonin 10 mg capsule 10 mg PO QHS citalopram 40 mg tablet 40 mg PO DAILY amlodipine 5 mg tablet 5 mg PO DAILY memantine 10 mg tablet 10 mg PO BID Discontinued lisinopril 20 mg tablet 20 mg PO DAILY Referrals / Follow Up: Yoav Chakraborty MD [Primary Care Provider] - David Morgan MD [Med Staff - Active Staff] - See Referral Note (In 2 weeks, call office for appointment time) Disposition Disposition (needs filled in before D/C Order can be placed): Care Home Facility Charges/Coding Visit Charges Inpatient E&M: 71486 Disch Hosp >30min 01/17/24 1402 <Electronically signed by Dani Jaramillo DO> Cosigner Signature (if applicable): CC: Dr. Yoav Chakraborty MD; Dr. Dani Jaramillo DO~ Signed [facility] Work Phone: 1(945) 768-111904-14-2024 Discharge summary Author Dani Jaramillo [facility] January 17, 2024 10:52am Note Date/Time January 17, 2024 10: 42am [facility] Medical Records Department [address] [place] [address] Transfer to [facility] MR#: [id number] Acct: [id number] Name: JACKELYN BRADSHAW Rep #:[id number] : 1940 83 From: Dani Jaramillo DO PCP: Dr. Yoav Chakraborty MD Status:A DM IN Certification of patient admission REQUIRED AT TIME OF ADMISSION. I CERTIFY THAT POST-HOSPITAL ECF SERVICES ARE REQUIRED TO BE GIVEN ON AN IN-PATIENT BASIS BECAUSE OF THE ABOVE NAMED PATIENT'S NEED FOR FDC CARE ON A CONTINUING BASIS FOR THE CONDITION(S) FOR WHICH HE/SHE WAS RECEIVING IN-PATIENT HOSPITAL SERVICES PRIOR TO HIS/HER TRANSFER TO THE [facility]. 01/17/24 1052<Electronically signed by Dani Jaramillo DO> Diet Diet Order/Speech Therapy: 01/16/24 15:11 Diet: Regular - No Added Salt Food consistency:: Regular Liquid Consistency:: Regular/Thin Type of Dietary Supplement:: 8oz Ensure+HP w/ B & D Is pt able to select menu?: No Diet Comments: soft bite sized food, not minced Routine Orders/Code Status O2 Liters per Minute: 2 O2 Frequency: Continuous Keep PO Greater than or Equal to (%): 90 Routine Lab Work: BMP (on 01/18/24) Code Status: DNRCC-A (no intubation) Wound(s) LEFT HIP, DISTAL: Wound Type: Surgical Incision LEFT HIP, MEDIAL: Wound Type: Surgical Incision LEFT HIP, PROXIMAL: Wound Type: Surgical Incision Therapies Weight Bearing: Weight bearing as tolerated Problem/Diagnosis (1) Fracture, intertrochanteric, left femur: Status: Acute Code(s): S72.142A - Displaced intertrochanteric fracture of left femur, initial encounterfor closed fracture Plan 1. Left intertrochanteric fracture-postop day #4 ORIF-PT and OT work with the patient, orthopedic surgery is seeing the patient, we are awaiting approval for the patient to go to a rehab unit in [place] #2 essential hypertension-patient will remain on her home medications #3 dementia-patient will remain on her home medications, complicates care, management, recovery, and prognosis #4 acute anemia of blood loss as expected consequence from left intertrochanteric hip fracture #5 acute kidney injury-resolving #6 acute blood loss anemia secondary to expected acute blood loss from left hip fracture Total clinical time spent by myself addressing patient's medical issues, reviewing all of her data, and collaborating with patient's care team: 35 minutes Allergies/Procedures Done in Hospital Allergies azithromycin [From Zithromax] Adverse Reaction (Severe, Verified 01/12/24 14:01) swell/tingle meperidine [From Demerol] Adverse Reaction (Severe, Verified 01/12/24 14:01) numbness/vomiting oxytetracycline [From Terramycin] Adverse Reaction (Severe, Verified 01/12/24 14:01) swell,tingle Penicillins [PCN] Adverse Reaction (Severe, Verified 01/12/24 14:01) swell,tingle propoxyphene [From Darvocet-N] Adverse Reaction (Severe, Verified 01/12/24 14:01) hallucinations Sulfa (Sulfonamide Antibiotics) Adverse Reaction (Severe, Verified 01/12/24 14:01) akbar Procedures: - (Cephalo- medullary nail insertion left femur due to hip fracture) Type of Care/Length of Stay Estimated LOS: Convalescent Care Less Than 30 days Type of Care Needed: Skilled Rehab Potential: Good Prognosis: Good Additional Orders/Day of Discharge Day of Discharge: 01/17/24 Dietary and Speech Recommendations Dietitian Recommendations/Changes: Regular, no added salt diet with 240mL ensureplus HP at breakfast and dinner meals. Adjust ONS as needed to optimize PO and prevent unintentional weight loss. Monitor BUN/creat and need to restrict protein/sodium from a renal diet standpoint. Discharge Plan Admission Admit Date/Time: 01/12/24 17:27 Primary Reason for Your Visit: Left intertrochanteric fracture Attending Provider: Dani Jaramillo Primary Care Provider: Yoav Chakraborty Consulting Providers: David Morgan; Howard Fragoso Discharge Orders/Prescriptions Prescriptions: New nystatin [Nyamyc] 100,000 unit/gram Powder 1 applic topical BID Qty: 0 0RF Protocol: *Topical Application Instructions APPLICATION INSTRUCTIONS: folds acetaminophen 650 mg/20.3 mL Solution 650 mg PO Q6H PRN PRN (Reason: Pain 1-10 Or Fever) Qty: 0 0RF Eliquis 5 mg Tablet 2.5 mg PO BID Qty: 1 0RF Rx Instructions: for 60 doses (30 days) Continued lisinopril [Zestril] 40 MG tablet 20 mg PO DAILY oxybutynin chloride 5 mg Tablet 5 mg PO BID olanzapine 5 mg tablet 5 mg PO DAILY galantamine 24 mg capsule,ext rel. pellets 24 hr 24 mg PO DAILY divalproex 125 mg capsule, delayed rel sprinkle 125 mg PO BID cyclobenzaprine 5 mg tablet 5 mg PO QHS melatonin 10 mg capsule 10 mg PO QHS citalopram 40 mg tablet 40 mg PO DAILY amlodipine 5 mg tablet 5 mg PO DAILY memantine 10 mg tablet 10 mg PO BID Discontinued lisinopril 20 mg tablet 20 mg PO DAILY Referrals / Follow Up: Yoav Chakraborty MD [Primary Care Provider] - David Morgan MD [Med Staff - Active Staff] - See Referral Note (In 2 weeks, call office for appointment time) Disposition Disposition (needs filled in before D/C Order can be placed): Care Home Facility 01/17/24 1052 <Electronically signed by Dani Jaramillo DO> Cosigner Signature (if applicable): CC: Dr. Yoav Chakraborty MD; Dr. Howard Fragoso MD; Dr. David Morgan MD ~ [facility] Work Phone: [phone]) 165-678604-14-2024 [facility] Medical Records Department [address] [place] [address] Discharge Summary 01/17/24 1053 MR#: [id number] Acct: [id number] Name: JACKELYN BRADSHAW Rep #: [id number] : 1940 83 From: Dani Jaramillo DO PCP: Dr. Yoav Chakraborty MD Status:ADM IN Location: [facility] [id number] Providers Date of Admission: 01/12/24 Date of Discharge: 01/17/24 Primary Care Physician: Dr. Yoav Chakraborty MD Consultations 01/12/24 18:38 Consult: Orthopedics Routine Consulting Provider: David Morgan Reason for Consult: Left hip fracture EMERGENT Consult: No MD Notified: Yes Date Notified: 01/12/24 Time Notified: 17:54 Method of Notification: ED Physician Initiated Reason For Visit: HIP FRACTURE LEFT Diagnosis Discharge Diagnosis (1) Fracture, intertrochanteric, left femur: Status: Acute Code(s): S72.142A - Displaced intertrochanteric fracture of left femur, initial encounter for closed fracture Plan 1. Left intertrochanteric fracture secondary to osteoporosis-postop day #4 ORIF- PT and OT work with the patient, orthopedic surgery is seeing the patient, we are awaiting approval for the patient to go to the TCU in [place] #2 essential hypertension-patient will remain on her home medications #3 dementia-patient will remain on her home medications, complicates care, management, recovery, and prognosis #4 acute anemia of blood loss as expected consequence from left intertrochanteric hip fracture #5 acute kidney injury-resolving #6 acute blood loss anemia secondary to expected acute blood loss from left hip fracture Total clinical time spent by myself addressing patient's medical issues, reviewing all of her data, and collaborating with patient's care team: 35 minutes Medications at Discharge Home Medications lisinopril 40 mg tablet (Zestril) 20 mg PO DAILY 12/30/16 olanzapine 5 mg tablet 5 mg PO DAILY 08/05/22 oxybutynin chloride 5 mg tablet 5 mg PO BID 08/05/22 amlodipine 5 mg tablet 5 mg PO DAILY 01/12/24 citalopram 40 mg tablet 40 mg PO DAILY 01/12/24 cyclobenzaprine 5 mg tablet 5 mg PO QHS 01/12/24 divalproex 125 mg capsule,delayed release sprinkle 125 mg PO BID 01/12/24 galantamine 24 mg 24 hr capsule,extended release 24 mg PO DAILY 01/12/24 melatonin 10 mg capsule 10 mg PO QHS 01/12/24 memantine 10 mg tablet 10 mg PO BID 01/12/24 acetaminophen 650 mg/20.3 mL oral solution 650 mg (20.3 mL) PO Q6H PRN PRN Pain 1-10 Or Fever #0 mL 01/17/24 apixaban 5 mg tablet (Eliquis) 2.5 mg (1/2 x 5 mg) PO BID #1 TAB 01/17/24 nystatin 100,000 unit/gram topical powder (Nyamyc) 1 applic topical BID #0 grams 01/17/24 Hospital Course Operations - (Gamma nail insertion in the left hip for repair of left hip fracture) Procedures None Summary of Care Provided Minutes Spent on Discharge: 32 Hospital Course: This 83-year-old white female was seen in the emergency room at [facility] after sustaining a mechanical fall at home. Workup in the emergency room included x- rays which showed an intertrochanteric fracture of the left hip. Patient was admitted to [place] [address] and seen in consultation by orthopedic surgery, she was felt to be stable to undergo ORIF of the left hip fracture, gamma nail was inserted and there were no complications to the surgery. Patient was seen by PT and OT, postop patient's renal functions declined and she was given IV fluids and following this, the renal functions improved. Arrangements were made for the patient to go to the TCU unit at [facility] in [facility]. Patient required 1 unit of packed red blood cells due to a low he moglobin during her hospitalization. On 01/17/2024, patient was seen and examined:alert and no apparent distress Constitutional Narrative: Patient appears her stated age General Appearance: cooperative, well kempt and well developed Orientation / Consciousness: awake and oriented to person HEENT normocephalic, head/scalp atraumatic and moist oral mucous membranes Eyes PERRL, EOMs intact bilaterally and conjunctivae normal Neck supple, no JVD, thyroid normal and no carotid bruits General: trachea midline Resp normal respiratory effort, no retractions, no use of accessory muscles and clear to auscultation bilaterally Auscultation: Negative for rales, rhonchi or wheezes Cardio regular rate, regular rhythm, S1 normal heart sound, S2 normal heart sound, no murmurs, no rub and no gallops GI normal to inspection, nondistended, normoactive bowel sounds, soft to palpation, non-tender and non- distended Skin no rashes or lesions noted General Skin Exam: no breakdown Neuro CN's II-XII intact bilaterally and no focal motor deficits Neuro Narrative: Patient is confused Sensorium / Orientation: awake and alert Psych Psych Narrative: Patient exhibits confusion but does answer simple questions appropriat (more content not included)...[facility]04-13-2024 Progress note Author Dani Jaramillo [facility] January 16, 2024 1:12pm Note Date/Time January 16, 2024 1:1 3pm [facility] Medical Records Department [address] [place] [address] Progress Note - Hospitalist 01/16/24 1309 MR#: [id number] Acct: [id number] Name: JACKELYN BRADSHAW Rep #:[id number] : 1940 83 From: Dani Jaramillo DO PCP: Dr. Yoav Chakraborty MD Status:A DM IN Location: [facility] [id number] Reason for Visit Reason for Visit: Diagnoses Malignant neoplasm of unspecified site of left female breast (01/12/24) Unspecified atrial fibrillation (01/12/24) Other osteoporosis without current pathological fracture (01/12/24) Displaced intertrochanteric fracture of left femur, initial encounter for closedfracture (01/12/24) Subjective Subjective Patient was seen and examined today, her creatinine has improved today, but overall it still elevated. I talked to the patient's family member in the room today, I will repeat the patient's lab tomorrow and evaluate whether she can go to the [place] rehab unit. Objective Data Objective Data Vital Signs: Vital Signs Temp Pulse Resp BP Pulse Ox O2 Del Method O2 Flow Rate 98.3 F 79 20 H 110/36 L 95 Room Air 2 01/16/24 07:44 01/16/24 07:44 01/16/24 07:44 01/16/24 06:06 01/16/24 12:15 01/16/24 12:15 01/16/24 07:44 Oxygen Flow Rate (L/min) 2 Oxygen Delivery Method Room Air Weight: 75.568 kg Body Mass Index (BMI) 30.4 Intake & Output: Intake and Output for Last 24 Hours 01/14/24 01/15/24 01/16/24 23:59 23:59 23:59 Intake Total 2100 / 2100 1833.75 / 1933.75 488.75 / 488.75 Output Total 450 / 450 525 / 675 350 / 350 Balance 1650 / 1650 1308.75 / 1258.75 138.75 / 138.75 Lab / Micro Data 01/16/24 06:15 01/16/24 06:15 Labs: Laboratory Results - last 24 hr 01/15/24 08:02: WBC Cancelled, Corrected WBC Cancelled, RBC Cancelled, Hgb Cancelled, Hct Cancelled, MCV Cancelled, MCH Cancelled, MCHC Cancelled, RDW Std Deviation Cancelled, RDW Coeff of Jina Cancelled, Plt Count Cancelled, MPV Cancelled, Immature Gran % (Auto) Cancelled, Neut % (Auto) Cancelled, Lymph % (Auto) Cancelled, [place] % (Auto) Cancelled, Eos % (Auto) Cancelled, Baso % (Auto)Cancelled, Absolute Neuts (auto) Cancelled, Absolute Lymphs (auto) Cancelled, Total Counted Cancelled, Neutrophils % (Manual) Cancelled, Band Neutrophils % Cancelled, Lymphocytes % (Manual) Cancelled, Monocytes % (Manual) Cancelled, Eosinophils % (Manual) Cancelled, Basophils % (Manual) Cancelled, Metamyelocytes% Cancelled, Myelocytes % Cancelled, Promyelocytes % Cancelled, Blast Cells % Cancelled, Plasma Cell % (Manual) Cancelled, Other Cells % Cancelled, Nucleated RBC % Cancelled, Nucleated RBCs/100 WBC Cancelled, Differential Comment Cancelled, Diff Path Review Cancelled, Hypersegmented Neuts Cancelled, Atypical Lymphocytes Cancelled, Reactive Lymphocytes Cancelled, Smudge Cells Cancelled, Toxic Granulation Cancelled, Toxic Vacuolation Cancelled, Dohle Bodies Cancelled, Catherine Rods Cancelled, Platelet Estimate Cancelled, Plt Morphology Comment Cancelled, RBC Morphology Cancelled 01/15/24 08:02: RBC Morphology Cancelled, Polychromasia Cancelled, HypochromasiaCancelled, Basophilic Stippling Cancelled, Anisocytosis Cancelled, Microcytosis Cancelled, Macrocytosis Cancelled, Spherocytes Cancelled, Sickle Cells Cancelled, Target Cells Cancelled, Tear Drop Cells Cancelled, Ovalocytes Cancelled, Stomatocytes Cancelled, Tolbert-Haystack Bodies Cancelled, Julianna Cells Cancelled, Bite Cells Cancelled, Crenated Cell Cancelled, Acanthocytes (Spur) Cancelled, Rouleaux Cancelled, Schistocytes Cancelled 01/16/24 06:15: Hgb 7.0 L, Hct 22.3 L, Sodium 141, Potassium 5.1, Chloride 111 H, Carbon Dioxide 28.0, Anion Gap 2 L, BUN 80 H, Creatinine 2.90 H, Estim Creat Clear Calc 13.99, Est GFR (MDRD) Af Amer 20 L, Est GFR (MDRD) Non-Af 17 L, BUN/Creatinine Ratio 27.6 H, Glucose 118 H, Calcium 7.8 L Micro: Microbiology 01/12/24 15:33 Urine Catheter - Sal Urine Culture - Final Staphylococcus warneri Radiography Diagnostic Testing: Radiology Impression Renal Ultrasound 01/15/24 15:09 IMPRESSION: Limited study without evidence for renal mass or obstruction. Electronically Signed: Solomon Pichardo MD at 18:10 EDT , Physical Exam Narrative alert and no apparent distress Constitutional Narrative: Patient appears her stated age General Appearance: cooperative, well kempt and well developed Orientation / Consciousness: awake and oriented to person HEENT normocephalic, head/scalp atraumatic and moist oral mucous membranes Eyes PERRL, EOMs intact bilaterally and conjunctivae normal Neck supple, no JVD, thyroid normal and no carotid bruits General: trachea midline Resp normal respiratory effort, no retractions, no use of accessory muscles and clearto auscultation bilaterally Auscultation: Negative for rales, rhonchi or wheezes Cardio regular rate, regular rhythm, S1 normal heart sound, S2 normal heart sound, no murmurs, no rub and no gallops GI normal to inspection, nondistended, normoactive bowel sounds, soft to palpation,non-tender and non-distended Skin no rashes or lesions noted General Skin Exam: no breakdown Neuro CN's II-XII intact bilaterally and no focal motor deficits Neuro Narrative: Patient is confused Sensorium / Orientation: awake and alert Psych Psych Narrative: Patient exhibits confusion but does answer simple questions appropriately at times Assessment & Plan Assessment/Plan (1) Fracture, intertrochanteric, left femur: PLAN: Plan 1. Left intertrochanteric fracture-postop day #3 ORIF-PT and OT work with the patient, orthopedic surgery is seeing the patient, we are awaiting approval for the patient to go to a rehab unit in [place] #2 essential hypertension-patient will remain on her home medications #3 dementia-patient will remain on her home medications, complicates care, management, recovery, and prognosis #4 acute anemia of blood loss as expected consequence from left intertrochanteric hip fracture-patient's blood was not able to be drawn today bynursing, I do not feel that it is critical to get a repeat blood count at this time #5 acute kidney injury-patient will be given IV fluids, I will repeat her BMP tomorrow, creatinine is improved today #6 acute blood loss anemia secondary to expected acute blood loss from left hip fracture-patient's hemoglobin today was 7, I think it would benefit the patient received 1 unit of packed red blood cells Total clinical time spent by myself addressing patient's medical issues, reviewing all of her data, and collaborating with patient's care team: 35 minutes Charges/Coding Visit Charges Inpatient E&M: 31197 Subs Hosp L2 01/16/24 1312 <Electronically signed by Dani Jaramillo DO> Cosigner Signature (if applicable): CC: ~ Signed [facility] Work Phone: 1(288) 484-118504-12-2024 Progress note Author Dani Jaramillo [facility] January 15, 2024 11:54am Note Date/Time January 15, 2024 11: 54am [facility] Medical Records Department [address] [place] [address] Progress Note - Hospitalist 01/15/24 1151 MR#: [id number] Acct: [id number] Name: JACKELYN BRADSHAW Rep #:[id number] : 1940 83 From: Dani Jaramillo DO PCP: Dr. Yoav Chakraborty MD Status:A DM IN Location: [facility] [id number] Reason for Visit Reason for Visit: Diagnoses Malignant neoplasm of unspecified site of left female breast (01/12/24) Unspecified atrial fibrillation (01/12/24) Other osteoporosis without current pathological fracture (01/12/24) Displaced intertrochanteric fracture of left femur, initial encounter for closedfracture (01/12/24) Subjective Subjective Patient was seen and examined today, her family members were in the room, we arecurrently awaiting approval for her to go to [place] rehab unit. Patient is alert and sitting in a chair at the time of my examination. Objective Data Objective Data Vital Signs: Vital Signs Temp Pulse Resp BP Pulse Ox O2 Del Method O2 Flow Rate 97.8 F 82 18 101/52 L 93 Nasal Cannula 3 01/15/24 09:05 01/15/24 09:05 01/15/24 09:05 01/15/24 09:05 01/15/24 09:05 01/15/24 09:05 01/15/24 11:01 Oxygen Flow Rate (L/min) 3 Oxygen Delivery Method Nasal Cannula Weight: 75.568 kg Body Mass Index (BMI) 30.4 Intake & Output: Intake and Output for Last 24 Hours 01/13/24 01/14/24 01/15/24 23:59 23:59 23:59 Intake Total 147.25 / 147.25 2100 / 2100 972.5 / 972.5 Output Total 0 / 0 450 / 450 200 / 200 Balance 147.25 / 147.25 1650 / 1650 772.5 / 772.5 Lab / Micro Data 01/14/24 08:05 01/14/24 23:42 Labs: Laboratory Results - last 24 hr 01/14/24 23:42: Sodium 141, Potassium 5.2 H, Chloride 106, Carbon Dioxide 29.0, Anion Gap 6, BUN 69 H, Creatinine 4.31 H, Estim Creat Clear Calc 9.41, Est GFR (MDRD) Af Amer 13 L, Est GFR (MDRD) Non-Af 10 L, BUN/Creatinine Ratio 16.0, Glucose 158 H, Calcium 8.0 L Micro: Microbiology 01/12/24 15:33 Urine Catheter - Sal Urine Culture - Final Staphylococcus warneri Radiography Diagnostic Testing: Radiology Impression Chest X-Ray 01/14/24 15:45 IMPRESSION: Mild bibasilar atelectasis. Electronically Signed: Jimi Rubin MD at 16:14 EDT , Physical Exam Narrative alert and no apparent distress Constitutional Narrative: Patient appears her stated age General Appearance: cooperative, well kempt and well developed Orientation / Consciousness: awake and oriented to person HEENT normocephalic, head/scalp atraumatic and moist oral mucous membranes Eyes PERRL, EOMs intact bilaterally and conjunctivae normal Neck supple, no JVD, thyroid normal and no carotid bruits General: trachea midline Resp normal respiratory effort, no retractions, no use of accessory muscles and clearto auscultation bilaterally Auscultation: Negative for rales, rhonchi or wheezes Cardio regular rate, regular rhythm, S1 normal heart sound, S2 normal heart sound, no murmurs, no rub and no gallops GI normal to inspection, nondistended, normoactive bowel sounds, soft to palpation,non-tender and non-distended Skin no rashes or lesions noted General Skin Exam: no breakdown Neuro CN's II-XII intact bilaterally and no focal motor deficits Neuro Narrative: Patient is confused Sensorium / Orientation: awake and alert Psych Psych Narrative: Patient exhibits confusion but does answer simple questions appropriately at times Assessment & Plan Assessment/Plan (1) Fracture, intertrochanteric, left femur: PLAN: Plan 1. Left intertrochanteric fracture-postop day #2 ORIF-PT and OT work with the patient, orthopedic surgery is seeing the patient, we are awaiting approval for the patient to go to a rehab unit in [place] #2 essential hypertension-patient will remain on her home medications #3 dementia-patient will remain on her home medications, complicates care, management, recovery, and prognosis #4 acute anemia of blood loss as expected consequence from left intertrochanteric hip fracture-patient's blood was not able to be drawn today by nursing, I do not feel that it is critical to get a repeat blood count at this time #5 acute kidney injury-patient will be given IV fluids, I will repeat her BMP tomorrow #6 acute blood loss anemia secondary to expected acute blood loss from left hip fracture-CBC will be rechecked tomorrow, patient does not need transfused at this time Total clinical time spent by myself addressing patient's medical issues, reviewing all of her data, and collaborating with patient's care team: 35 minutes Charges/Coding Visit Charges Inpatient E&M: 48324 Subs Hosp L2 01/15/24 1154 <Electronically signed by Dani Jaramillo DO> Cosigner Signature (if applicable): CC: ~ Signed [facility] Work Phone: 1(789) 662-775104-11-2024 Progress note Author Dani Jaramillo [facility] January 14, 2024 5:15pm Note Date/Time January 14, 2024 5:1 5pm [facility] Medical Records Department [address] [place] [address] Progress Note - Hospitalist 01/14/24 1710 MR#: [id number] Acct: [id number] Name: JACKELYN BRADSHAW Rep #:[id number] : 1940 83 From: Dani Jaramillo DO PCP: Dr. Yoav Chakraborty MD Status:A DM IN Location: [facility] [id number] Reason for Visit Reason for Visit: Diagnoses Malignant neoplasm of unspecified site of left female breast (01/12/24) Unspecified atrial fibrillation (01/12/24) Other osteoporosis without current pathological fracture (01/12/24) Displaced intertrochanteric fracture of left femur, initial encounter for closedfracture (01/12/24) Subjective Subjective Patient was seen and examined today, there is an episode today where physical therapy set the patient up in bed and she had a glazed look on her eyes, she waslaid back in a prone position at that point, assessment shows that she is drowsywith pinpoint pupils, she does answer some questions however. Patient may have been vasovagal when she was set up, she had also received some morphine from last night. I have elected to stop her morphine at this time. Objective Data Objective Data Vital Signs: Vital Signs Temp Pulse Resp BP Pulse Ox O2 Del Method O2 Flow Rate 97.7 F L 81 20 H 112/46 L 93 Nasal Cannula 3 01/14/24 14:30 01/14/24 14:30 01/14/24 14:30 01/14/24 14:30 01/14/24 14:30 01/14/24 15:55 01/14/24 15:55 Oxygen Flow Rate (L/min) 3 Oxygen Delivery Method Nasal Cannula Weight: 75.568 kg Body Mass Index (BMI) 30.4 Intake & Output: Intake and Output for Last 24 Hours 01/12/24 01/13/24 01/14/24 23:59 23:59 23:59 Intake Total 0 / 0 147.25 / 147.25 2100 / 2100 Output Total 220 / 220 0 / 0 300 / 300 Balance -220 / -220 147.25 / 147.25 1800 / 1800 Lab / Micro Data 01/14/24 08:05 01/14/24 08:05 Labs: Laboratory Results - last 24 hr 01/14/24 08:05: WBC 18.2 H, RBC 2.77 L, Hgb 8.6 L, Hct 27.9 L, MCV 100.7 H, MCH 31.0, MCHC 30.8 L, RDW Std Deviation 50.4 H, RDW Coeff of Jina 13.5, Plt Count 197, MPV 10.7, Immature Gran % (Auto) 0.600, Neut % (Auto) 83.2 H, Lymph % (Auto) 8.0 L, [place] % (Auto) 7.6, Eos % (Auto) 0.4, Baso % (Auto) 0.2, Absolute Neuts (auto) 15.1 H, Absolute Lymphs (auto) 1.45, Nucleated RBC % 0, Sodium 140,Potassium 5.6 H, Chloride 107, Carbon Dioxide 28.0, Anion Gap 5, BUN 54 H, Creatinine 4.30 H, Estim Creat Clear Calc 9.43, Est GFR (MDRD) Af Amer 13 L, EstGFR (MDRD) Non-Af 10 L, BUN/Creatinine Ratio 12.6, Glucose 157 H, Calcium 8.5 Micro: Microbiology 01/12/24 15:33 Urine Catheter - Sal Urine Culture - Preliminary Coag Negative Staph Coag Negative Staph#2 Radiography Diagnostic Testing: Radiology Impression Hip/Pelvis X-Ray 01/13/24 16:05 IMPRESSION: Fluoroscopic assistance for femoral internal fixation. Please see operative report for additional information. Electronically Signed: Arjun Cade MD at 23:33 EDT Reading Location ID and State: [facility] / [place] Tel , Service support , Hip X-Ray 01/13/24 17:46 IMPRESSION: Left intratrochanteric femur fracture internal fixation with improved alignment Electronically Signed: Arjun Cade MD at 18:59 EDT , Chest X-Ray 01/14/24 15:45 IMPRESSION: Mild bibasilar atelectasis. Electronically Signed: Jimi Rubin MD at 16:14 EDT , Physical Exam Narrative alert and no apparent distress Constitutional Narrative: Patient appears her stated age General Appearance: cooperative, well kempt and well developed Orientation / Consciousness: awake and oriented to person HEENT normocephalic, head/scalp atraumatic and moist oral mucous membranes Eyes PERRL, EOMs intact bilaterally and conjunctivae normal Neck supple, no JVD, thyroid normal and no carotid bruits General: trachea midline Resp normal respiratory effort, no retractions, no use of accessory muscles and clearto auscultation bilaterally Auscultation: Negative for rales, rhonchi or wheezes Cardio regular rate, regular rhythm, S1 normal heart sound, S2 normal heart sound, no murmurs, no rub and no gallops GI normal to inspection, nondistended, normoactive bowel sounds, soft to palpation,non-tender and non-distended Skin no rashes or lesions noted General Skin Exam: no breakdown Neuro CN's II-XII intact bilaterally and no focal motor deficits Neuro Narrative: Patient is confused Sensorium / Orientation: awake and alert Psych Psych Narrative: Patient exhibits confusion but does answer simple questions appropriately at times Assessment & Plan Assessment/Plan (1) Fracture, intertrochanteric, left femur: PLAN: Plan 1. Left intertrochanteric fracture-postop day #1 ORIF-PT and OT work with the patient, orthopedic surgery seen the patient #2 essential hypertension-patient will remain on her home medications #3 dementia-patient will remain on her home medications, complicates care, management, recovery, and prognosis #4 acute anemia of blood loss as expected consequence from left intertrochanteric hip fracture-CBC will be monitored #5 acute kidney injury-patient will be given IV fluids, BMP will be monitored, patient's creatinine today was 4.3, she is still putting out urine however #6 acute blood loss anemia secondary to expected acute blood loss from left hip fracture-CBC will be rechecked tomorrow, patient does not need transfused at this time Total clinical time spent by myself addressing patient's medical issues, reviewing all of her data, and collaborating with patient's care team: 35 minutes Charges/Coding Visit Charges Inpatient E&M: 82816 Subs Hosp L2 01/14/24 7762 <Electronically signed by Dani Jaramillo DO> Cosigner Signature (if applicable): CC: ~ Signed [facility] Work Phone: 1(996) 655-645504-11-2024 Progress note Author Naila Hoover [facility] January 14, 2024 1:50pm Note Date/Time January 14, 2024 1:5 0pm [facility] Medical Records Department [address] [place] [address] Progress Note - Orthopedic 01/14/24 1343 MR#: [id number] Acct: [id number] Name: JACKELYN BRADSHAW Rep #:[id number] : 1940 83 From: Naila ONEILL PCP: Dr. Yoav Chakraborty MD Status:A DM IN [facility] Subjective Subjective Patient is s/p left cephalomedullary nail with Dr. Morgan on 01/13/2024. Patientresting comfortably in bed. Unable to assess pain. Patient is drowsy today also dementia plays a part in obtaining HPI today. Does not respond to questioning. Her eyes are weak and acknowledges and attempts to communicate back. Tylenol as needed and ice help to relieve pain. Patient has been up withtherapy. Walking with the assit of a walker. She is weightbearing as tolerated. Afebrile, no chest pain, shortness of breath, negative calf pain/ erythema, and no other signs of DVT. Objective Data Objective Data Vital Signs: Vital Signs Temp Pulse Resp BP Pulse Ox O2 Del Method O2 Flow Rate 98.8 F 81 18 113/53 L 95 Nasal Cannula 3 01/14/24 08:25 01/14/24 08:25 01/14/24 08:25 01/14/24 08:25 01/14/24 08:25 01/14/24 08:25 01/14/24 11:12 Oxygen Flow Rate (L/min) 3 Oxygen Delivery Method Nasal Cannula Weight: 75.568 kg Body Mass Index (BMI) 30.4 Intake & Output: Intake and Output for Last 24 Hours 01/12/24 01/13/24 01/14/24 23:59 23:59 23:59 Intake Total 0 / 0 147.25 / 147.25 1455 / 1455 Output Total 220 / 220 0 / 0 175 / 175 Balance -220 / -220 147.25 / 147.25 1280 / 1280 Lab / Micro Data 01/14/24 08:05 01/14/24 08:05 Labs: Laboratory Results - last 24 hr 01/14/24 08:05: WBC 18.2 H, RBC 2.77 L, Hgb 8.6 L, Hct 27.9 L, MCV 100.7 H, MCH 31.0, MCHC 30.8 L, RDW Std Deviation 50.4 H, RDW Coeff of Jina 13.5, Plt Count 197, MPV 10.7, Immature Gran % (Auto) 0.600, Neut % (Auto) 83.2 H, Lymph % (Auto) 8.0 L, [place] % (Auto) 7.6, Eos % (Auto) 0.4, Baso % (Auto) 0.2, Absolute Neuts (auto) 15.1 H, Absolute Lymphs (auto) 1.45, Nucleated RBC % 0, Sodium 140,Potassium 5.6 H, Chloride 107, Carbon Dioxide 28.0, Anion Gap 5, BUN 54 H, Creatinine 4.30 H, Estim Creat Clear Calc 9.43, Est GFR (MDRD) Af Amer 13 L, EstGFR (MDRD) Non-Af 10 L, BUN/Creatinine Ratio 12.6, Glucose 157 H, Calcium 8.5 Micro: Microbiology 01/12/24 15:33 Urine Catheter - Sal Urine Culture - Preliminary Coag Negative Staph Coag Negative Staph#2 Radiography Diagnostic Testing: Radiology Impression Hip/Pelvis X-Ray 01/13/24 16:05 IMPRESSION: Fluoroscopic assistance for femoral internal fixation. Please see operative report for additional information. Electronically Signed: Arjun Cade MD at 23:33 EDT , Hip X-Ray 01/13/24 17:46 IMPRESSION: Left intratrochanteric femur fracture internal fixation with improved alignment Electronically Signed: Arjun Cade MD at 18:59 EDT , Physical Exam Const Constitutional Narrative: Patient resting comfortably in bed Drowsy attempts to communicate but does not respond appropriately to all of my questions. Unable to assess pain level. she does state that sensation is intact. To left lower extremity upon palpation DP/PT pulses bounding. Wiggles all toes to command Dorsi and plantarflexion full strength Dressing clear dry intact Calf nontender to palpation, no erythema, no edema. Negative Homans Assessment & Plan Assessment/Plan (1) Fracture, intertrochanteric, left femur: PLAN: Patient is postop day 1 status post left cephalomedullary nailing after sustaining intertrochanteric fracture. 1. Will continue PT today. Weightbearing as tolerated 2. Ultimate discharge planning per primary. 3. Patient is stable from an orthopedic standpoint. 4. H/H 8.6/27.9: post operavtive anemia secondary to acute blood loss intraoperatively. Patient is asymptomatic at this time. Defer to primary for management and/or transfusions as necessary. 5. DVT prophylaxis : Xarelto 10 mg once daily x 2 weeks followed by aspirin 81 mg twice daily x 2 weeks due to active malignancy. 6. Pain control: patient instructed to take tylenol 500mg 2 tablets TID for paincontrol 7. ok to remove post op dressing. post op day 5 8. Remainder of management per primary 9. Patient will need a follow-up appointment in 2 weeks in outpatient clinic with most orthopedics. This will need to be arranged. 10. Orthopedics will sign off. 01/14/24 1350 <Electronically signed by Naila ONEILL> Cosigner Signature (if applicable): CC: ~ Signed [facility] Work Phone: 1(597) 726-268604-10-2024 Progress note Author Dani Jaramillo [facility] January 13, 2024 5:35pm Note Date/Time January 13, 2024 5:3 5pm [facility] Medical Records Department [address] [place] [address] Progress Note - Hospitalist 01/13/24 1728 MR#: [id number] Acct: [id number] Name: JACKELYN BRADSHAW Rep #:[id number] : 1940 83 From: Dani Jaramillo DO PCP: Dr. Yoav Chakraborty MD Status:A DM IN Location: [place] [address] Reason for Visit Reason for Visit: Diagnoses Malignant neoplasm of unspecified site of left female breast (01/12/24) Unspecified atrial fibrillation (01/12/24) Other osteoporosis without current pathological fracture (01/12/24) Displaced intertrochanteric fracture of left femur, initial encounter for closedfracture (01/12/24) Subjective Subjective Patient was seen and examined today, she underwent ORIF of her left intertrochanteric fracture this afternoon. On my examination's morning, patientwas alert and did not appear to be in any distress. Patient does have a historyof dementia. Objective Data Objective Data Vital Signs: Vital Signs Temp Pulse Resp BP Pulse Ox O2 Del Method O2 Flow Rate 98 F 88 12 121/49 H 98 Nasal Cannula 2 01/13/24 09:43 01/13/24 09:43 01/13/24 09:43 01/13/24 09:43 01/13/24 09:43 01/13/24 10:41 01/13/24 10:41 Oxygen Flow Rate (L/min) 2 Oxygen Delivery Method Nasal Cannula Weight: 75.568 kg Body Mass Index (BMI) 30.4 Intake & Output: Intake and Output for Last 24 Hours 01/11/24 01/12/24 01/13/24 23:59 23:59 23:59 Intake Total 0 / 0 50 / 50 Output Total 220 / 220 Balance -220 / -220 50 / 50 Lab / Micro Data 01/13/24 06:10 01/13/24 06:10 Labs: Laboratory Results - last 24 hr 01/13/24 06:10: WBC 14.0 H, RBC 3.46 L, Hgb 10.8 L, Hct 34.1 L, MCV 98.6, MCH 31.2, MCHC 31.7 L, RDW Std Deviation 48.6 H, RDW Coeff of Jina 13.5, Plt Count 270, MPV 10.3, Immature Gran % (Auto) 0.500, Neut % (Auto) 77.8 H, Lymph % (Auto) 13.3 L, [place] % (Auto) 8.0, Eos % (Auto) 0.0, Baso % (Auto) 0.4, Absolute Neuts(auto) 10.9 H, Absolute Lymphs (auto) 1.86, Nucleated RBC % 0, Sodium 139, Potassium 5.2 H, Chloride 106, Carbon Dioxide 27.0, Anion Gap 6, BUN 36 H, Creatinine 2.61 H, Estim Creat Clear Calc 15.54, Est GFR (MDRD) Af Amer 23 L, Est GFR (MDRD) Non-Af 19 L, BUN/Creatinine Ratio 13.8, Glucose 178 H, Calcium 9.3, Blood Type B POSITIVE, Antibody Screen NEGATIVE Radiography Diagnostic Testing: Radiology Impression Femur X-Ray 01/12/24 21:00 IMPRESSION: Acute intertrochanteric fracture of the left hip. Otherwise normal femur Electronically Signed: Solomon Pichardo MD at 21:53 EDT , Physical Exam Const alert and no apparent distress Constitutional Narrative: Patient appears her stated age General Appearance: cooperative, well kempt and well developed Orientation / Consciousness: awake and oriented to person HEENT normocephalic, head/scalp atraumatic and moist oral mucous membranes Eyes PERRL, EOMs intact bilaterally and conjunctivae normal Neck supple, no JVD, thyroid normal and no carotid bruits General: trachea midline Resp normal respiratory effort, no retractions, no use of accessory muscles and clearto auscultation bilaterally Auscultation: Negative for rales, rhonchi or wheezes Cardio regular rate, regular rhythm, S1 normal heart sound, S2 normal heart sound, no murmurs, no rub and no gallops GI normal to inspection, nondistended, normoactive bowel sounds, soft to palpation,non-tender and non-distended Skin no rashes or lesions noted General Skin Exam: no breakdown Neuro CN's II-XII intact bilaterally and no focal motor deficits Neuro Narrative: Patient is confused Sensorium / Orientation: awake and alert Psych Psych Narrative: Patient exhibits confusion but does answer simple questions appropriately at times Assessment & Plan Assessment/Plan (1) Fracture, intertrochanteric, left femur: PLAN: Plan 1. Left intertrochanteric fracture-again patient will undergo surgery today, she will most likely need to go to an extended care facility for rehab services,I discussed this briefly with the patient's family member who was in her room today, he states that the decision will be made by his siblings, PT and OT will need to see the patient for postop #2 essential hypertension-patient will remain on her home medications #3 dementia-patient will remain on her home medications, complicates care, management, recovery, and prognosis #4 acute anemia of blood loss as expected consequence from left intertrochanteric hip fracture-CBC will be monitored as necessary #5 acute kidney injury-patient will be given IV fluids, BMP will be monitored Total clinical time spent by myself addressing patient's medical issues, reviewing all of her data, and collaborating with patient's care team: 35 minutes Charges/Coding Visit Charges Inpatient E&M: 25761 Subs Hosp L2 01/13/24 5763 <Electronically signed by Dani Jaramillo DO> Cosigner Signature (if applicable): CC: ~ Signed [facility] Work Phone: 1(816) 225-534004-10-2024 Procedure [facility] 01-13-2024 Consult note Author David Morgan [facility] January 13, 2024 1:53pm Note Date/Time January 13, 2024 1:5 3pm [facility] Medical Records Department [address] [place] [address] Consultation 01/13/24 1343 MR#: [id number] Acct: [id number] Name: JACKELYN BRADSHAW Rep #:[id number] : 1940 83 From: David Hylton PCP: Dr. Yoav Chakraborty MD Status:A DM IN Location: [facility] [id number] Assessment & Plan Assessment/Plan (1) Fracture, intertrochanteric, left femur: (2) Osteoporosis: QUALIFIERS: Osteoporosis type: other Presence of current pathological fracture: without current pathological fracture Qualified Code(s):M81.8 - Other osteoporosis without current pathological fracture (3) Invasive ductal carcinoma of left breast, stage 2: PLAN: Patient has history of metastatic cancer based on active malignancy will need appropriate anticoagulation postoperatively. (4) Atrial fibrillation: PLAN: I was able to confirm the patient is not currently on any anticoagulation when discussing medications with her daughter. PLAN: Plan Natural history of the disease process and treatment options were discussed the patient and her daughter who is at bedside. Treatment options including nonoperative intervention was discussed however this was not recommended as daughter confirmed patient does not in hospice or palliative care. based on patient's metastatic breast cancer history I did explain that we reviewed CT scan of the fracture site and films of the entire femur showing no significant evidence of active metastatic lesion in the left femur. Based on this I recommended proceeding with a long cephalomedullary nail. Risks and benefits ofthe procedure were discussed with the patient more specifically with her daughter at bedside which include but were not limited to blood loss, DVTs, PEs,nervous damage, fashion, the risk of anesthesia including loss of life. Nonunion, malunion and hardware failure and cut out. Patient and her family demonstrate understanding wish to proceed. Consent has been signed. Antibiotics ordered on-call to the operating room. Patient is currently NPO. Will proceed with surgery this afternoon. HPI Consult Data Date of Consult: 01/13/24 HPI Narrative Reason for Consultation: Left hip pain HPI Narrative: JACKELYN BRADSHAW, is a 83 F with history of metastatic breast cancer and atrial fibrillation who presents left hip pain. Patient was standing in front of her chair yesterday when she lost her balance and fell. She was seen and evaluated in the emergency department. Her daughter is at bedside. She does have metastatic breast cancer which she has historically affected the right side. She has no history of left femur metastatic disease. Patient is a poor historian with minimal communication while I am in the room. Her daughter provides most of the history. Patient does live at home and uses a walker for ambulation. She had no antecedent pain in the left hip. Denies any associated numbness and tingling at this time. Pain is located in the left hip and thigh. Patient also has a history significant for atrial fibrillation in the past however she is not currently on any anticoagulation medications. [facility] Medical History (Updated 01/13/24 @ 13:[address] David Morgan MD) Anxiety Atrial fibrillation Chronic kidney disease Dementia Depression Hx of breast cancer Hypertension Skin cancer TIA (transient ischemic attack) Home Medications lisinopril 40 mg tablet (Zestril) 20 mg PO DAILY 12/30/16 [History Last Taken Unknown] olanzapine 5 mg tablet 5 mg PO DAILY 08/05/22 [History Last Taken Unknown] oxybutynin chloride 5 mg tablet 5 mg PO BID 08/05/22 [History Last Taken Unknown] amlodipine 5 mg tablet 5 mg PO DAILY 01/12/24 [History Last Taken Unknown] citalopram 40 mg tablet 40 mg PO DAILY 01/12/24 [History Last Taken Unknown] cyclobenzaprine 5 mg tablet 5 mg PO QHS 01/12/24 [History Last Taken Unknown] divalproex 125 mg capsule,delayed release sprinkle 125 mg PO BID 01/12/24 [History Last Taken Unknown] galantamine 24 mg 24 hr capsule,extended release 24 mg PO DAILY 01/12/24 [History Last Taken Unknown] lisinopril 20 mg tablet 20 mg PO DAILY 01/12/24 [History Last Taken Unknown] melatonin 10 mg capsule 10 mg PO QHS 01/12/24 [History Last Taken Unknown] memantine 10 mg tablet 10 mg PO BID 01/12/24 [History Last Taken Unknown] Allergy/AdvReac Type Severity Reaction Status Date / Time acetaminophen AdvReac Severe hallucinati Verified 01/12/24 14:01 [From Darvocet-N] ons azithromycin [From Zithromax] AdvReac Severe swell/tingl Verified 01/12/24 14:01 e meperidine [From Demerol] AdvReac Severe numbness/vo Verified 01/12/24 14:01 miting oxytetracycline AdvReac Severe swell,tingl Verified 01/12/24 14:01 [From Terramycin] e Penicillins [PCN] AdvReac Severe swell,tingl Verified 01/12/24 14:01 e propoxyphene AdvReac Severe hallucinati Verified 01/12/24 14:01 [From Darvocet-N] ons Sulfa (Sulfonamide AdvReac Severe welts Verified 01/12/24 14:01 Antibiotics) Family History Father Hypertension Mother Alzheimer disease Diabetes Hypertension Surgical History History of appendectomy History of hysterectomy Hx of cholecystectomy Hx of tonsillectomy Social History Smoking Status: Former smoker ROS ROS Narrative Review of systems limited secondary to patient's mental status. Physical Exam Const Constitutional Narrative: Awake HEENT normocephalic Eyes PERRL Neck No nuchal rigidity Resp normal respiratory effort Cardio Cardio Narrative: Regular pulse rate GI GI Narrative: Nondistended Extremity Extremity Narrative: Left lower extremity: Skin clean, dry, and intact. Limb is shortened and externally rotated Motor is intact dorsiflexion, EHL and plantar flexion. Sensation is intact to light touch saphenous, ingrid,l superficial peroneal, deep peroneal and tibial distributions. Calves are soft and supple. Skin no wounds Neuro Neuro Narrative: Alert, minimally responsive to questioning. Medical Records Data Attestation: I reviewed the patient's medical records Lab / Micro Data Attestation: I reviewed the patient's lab results. 01/13/24 06:10 01/13/24 06:10 Labs: Laboratory Results - last 24 hr 01/12/24 14:53: Urine Color Yellow, Urine Clarity Clear, Urine pH 6.0, Ur Specific Spencer 1.020, Urine Protein 30 H, Urine Glucose (UA) Normal, Urine Ketones 5 H, Urine Occult Blood 25 H, Urine Nitrite Negative, Urine Bilirubin 1 H, Urine Urobilinogen 1 H, Ur Leukocyte Esterase 100 H, Urine RBC 0 SEEN, Urine WBC 0-5 SEEN, Ur Squamous Epith Cells 0 SEEN, Urine Bacteria 1+, Urine Mucus 1+ 01/12/24 15:49: WBC 18.0 H, RBC 4.15 L, Hgb 12.9, Hct 40.7, MCV 98.1, MCH 31.1, MCHC 31.7 L, RDW Std Deviation 46.8 H, RDW Coeff of Jina 13.1, Plt Count 294, MPV10.2, Immature Gran % (Auto) 0.500, Neut % (Auto) 88.1 H, Lymph % (Auto) 8.4 L, [place] % (Auto) 2.6, Eos % (Auto) 0.1, Baso % (Auto) 0.3, Absolute Neuts (auto) 15.9 H, Absolute Lymphs (auto) 1.52, Nucleated RBC % 0, Sodium 139, Potassium 4.4, Chloride 105, Carbon Dioxide 29.0, Anion Gap 5, BUN 24 H, Creatinine 1.38 H, Estim Creat Clear Calc 30.01, Est GFR (MDRD) Af Amer 47 L, Est GFR (MDRD) Non-Af 39 L, BUN/Creatinine Ratio 17.4, Glucose 168 H, Calcium 9.0 01/13/24 06:10: WBC 14.0 H, RBC 3.46 L, Hgb 10.8 L, Hct 34.1 L, MCV 98.6, MCH 31.2, MCHC 31.7 L, RDW Std Deviation 48.6 H, RDW Coeff of Jina 13.5, Plt Count 270, MPV 10.3, Immature Gran % (Auto) 0.500, Neut % (Auto) 77.8 H, Lymph % (Auto) 13.3 L, [place] % (Auto) 8.0, Eos % (Auto) 0.0, Baso % (Auto) 0.4, Absolute Neuts (auto) 10.9 H, Absolute Lymphs (auto) 1.86, Nucleated RBC % 0, Sodium 139,Potassium 5.2 H, Chloride 106, Carbon Dioxide 27.0, Anion Gap 6, BUN 36 H, Creatinine 2.61 H, Estim Creat Clear Calc 15.54, Est GFR (MDRD) Af Amer 23 L, Est GFR (MDRD) Non-Af 19 L, BUN/Creatinine Ratio 13.8, Glucose 178 H, Calcium 9.3, Blood Type B POSITIVE, Antibody Screen NEGATIVE Imaging Radiology Impression Brain CT 01/12/24 14:23 IMPRESSION: Chronic involutional changes of the brain. 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 Electronically Signed: Naga Garcia MD at 15:23 EDT , Cervical Spine CT 01/12/24 14:23 IMPRESSION: Multilevel degenerative changes, as described above. Electronically Signed: Ngaa Garcia MD at 15:26 EDT , Chest X-Ray 01/12/24 14:55 IMPRESSION: No acute cardiopulmonary pathology Electronically Signed: Solomon Pichardo MD at 16:53 EDT , Hip/Pelvis X-Ray 01/12/24 14:55 IMPRESSION: Comminuted left intertrochanteric fracture. Electronically Signed: Naga Garcia MD at 15:10 EDT , Lower Extremity CT 01/12/24 15:25 IMPRESSION: Acute comminuted intertrochanteric fracture of the left femur. Electronically Signed: Jimi Rubin MD at 16:48 EDT , Femur X-Ray 01/12/24 21:00 IMPRESSION: Acute intertrochanteric fracture of the left hip. Otherwise normal femur Electronically Signed: Solomon Pichardo MD at 21:53 EDT , 01/13/24 1353 <Electronically signed by David Morgan MD> Cosigner Signature (if applicable): CC: Dr. Yoav Chakraborty MD; Dr. Howard Fragoso MD; Dr. David Morgan MD~ Signed [facility] Work Phone: 1(501) 997-732104-10-2024 [facility] Medical Records Department [address] [place] [address] Consultation 01/13/24 1343 MR#: [id number] Acct: [id number] Name: JACKELYN BRADSHAW Rep #: [id number] : 1940 83 From: David Morgan MD PCP: Dr. Yoav Chakraborty MD Status:ADM IN Location: [facility] [id number] Assessment Plan Assessment/Plan (1) Fracture, intertrochanteric, left femur: (2) Osteoporosis: QUALIFIERS: Osteoporosis type: other Presence of current pathological fracture: without current pathological fracture Qualified Code(s): M81.8 - Other osteoporosis without current pathological fracture (3) Invasive ductal carcinoma of left breast, stage 2: PLAN: Patient has history of metastatic cancer based on active malignancy will need appropriate anticoagulation postoperatively. (4) Atrial fibrillation: PLAN: I was able to confirm the patient is not currently on any anticoagulation when discussing medications with her daughter. PLAN: Plan Natural history of the disease process and treatment options were discussed the patient and her daughter who is at bedside. Treatment options including nonoperative intervention was discussed however this was not recommended as daughter confirmed patient does not in hospice or palliative care. based on patient's metastatic breast cancer history I did explain that we reviewed CT scan of the fracture site and films of the entire femur showing no significant evidence of active metastatic lesion in the left femur. Based on this I recommended proceeding with a long cephalomedullary nail. Risks and benefits of the procedure were discussed with the patient more specifically with her daughter at bedside which include but were not limited to blood loss, DVTs, PEs, nervous damage, fashion, the risk of anesthesia including loss of life. Nonunion, malunion and hardware failure and cut out. Patient and her family demonstrate understanding wish to proceed. Consent has been signed. Antibiotics ordered on-call to the operating room. Patient is currently NPO. Will proceed with surgery this afternoon. HPI Consult Data Date of Consult: 01/13/24 HPI Narrative Reason for Consultation: Left hip pain HPI Narrative: JACKELYN BRADSHAW, is a 83 F with history of metastatic breast cancer and atrial fibrillation who presents left hip pain. Patient was standing in front of her chair yesterday when she lost her balance and fell. She was seen and evaluated in the emergency department. Her daughter is at bedside. She does have metastatic breast cancer which she has historically affected the right side. She has no history of left femur metastatic disease. Patient is a poor historian with minimal communication while I am in the room. Her daughter provides most of the history. Patient does live at home and uses a walker for ambulation. She had no antecedent pain in the left hip. Denies any associated numbness and tingling at this time. Pain is located in the left hip and thigh. Patient also has a history significant for atrial fibrillation in the past however she is not currently on any anticoagulation medications. [facility] Medical History (Updated 01/13/24 @ 13:[address] David Morgan MD) Anxiety Atrial fibrillation Chronic kidney disease Dementia Depression Hx of breast cancer Hypertension Skin cancer TIA (transient ischemic attack) Home Medications lisinopril 40 mg tablet (Zestril) 20 mg PO DAILY 12/30/16 [History Last Taken Unknown] olanzapine 5 mg tablet 5 mg PO DAILY 08/05/22 [History Last Taken Unknown] oxybutynin chloride 5 mg tablet 5 mg PO BID 08/05/22 [History Last Taken Unknown] amlodipine 5 mg tablet 5 mg PO DAILY 01/12/24 [History Last Taken Unknown] citalopram 40 mg tablet 40 mg PO DAILY 01/12/24 [History Last Taken Unknown] cyclobenzaprine 5 mg tablet 5 mg PO QHS 01/12/24 [History Last Taken Unknown] divalproex 125 mg capsule,delayed release sprinkle 125 mg PO BID 01/12/24 [History Last Taken Unknown] galantamine 24 mg 24 hr capsule,extended release 24 mg PO DAILY 01/12/24 [History Last Taken Unknown] lisinopril 20 mg tablet 20 mg PO DAILY 01/12/24 [History Last Taken Unknown] melatonin 10 mg capsule 10 mg PO QHS 01/12/24 [History Last Taken Unknown] memantine 10 mg tablet 10 mg PO BID 01/12/24 [History Last Taken Unknown] Allergy/AdvReac Type Severity Reaction Status Date / Time acetaminophen AdvReac Severe hallucinati Verified 01/12/24 14:01 [From Darvocet-N] ons azithromycin [From Zithromax] AdvReac Severe swell/tingl Verified 01/12/24 14:01 e meperidine [From Demerol] AdvReac Severe numbness/vo Verified 01/12/24 14:01 miting oxytetracycline AdvReac Severe swell,tingl Verified 01/12/24 14:01 [From Terramycin] e Penicillins [PCN] AdvReac Severe swell,tingl Verified 01/12/24 14:01 e propoxyphene AdvReac Severe hallucinati Verified 01/12/24 14:01 [Fro (more content not included)...[facility]04-09-2024 History and physical note Author Howard Fragoso [facility] January 12, 2024 7:42pm Note Date/Time January 12, 2024 7:42 pm [facility] Medical Records Department [address] [place] [id number] H&P Exam - Hospitalist 01/12/241934 MR#: [id number] Acct: [id number] Name: JACKELYN BRADSHAW Rep #:[id number] : 1940 83 From: Howard rios MD PCP: Dr. Yoav Chakraborty MD Status:A DM IN Location: [facility] [id number] HPI - General General Date of Admission: 01/12/24 HPI Narrative JACKELYN BRADSHAW, is a 83 F who presents to the hospital after mechanical fall. She was standing in front of her recliner and was trying to turn to be able to sit into it and she lost her balance and fell onto her left hip. In the ER she had a CT of the brain which was unremarkable CT C-spine was also normal and her hip and pelvis x-ray demonstrated a left intertrochanteric fracture, orthopedic surgery was consulted in the ER and they requested a CT scan that did not demonstrate any additional findings. [facility] Medical History (Updated 01/12/24 @ 19:[address] Howard Fragoso MD) Anxiety Atrial fibrillation Chronic kidney disease Dementia Depression Hx of breast cancer Hypertension Skin cancer TIA (transient ischemic attack) Home Medications lisinopril 40 mg tablet (Zestril) 20 mg PO DAILY 12/30/16 [History Last Taken Unknown] olanzapine 5 mg tablet 5 mg PO DAILY 08/05/22 [History Last Taken Unknown] oxybutynin chloride 5 mg tablet 5 mg PO BID 08/05/22 [History Last Taken Unknown] amlodipine 5 mg tablet 5 mg PO DAILY 01/12/24 [History Last Taken Unknown] citalopram 40 mg tablet 40 mg PO DAILY 01/12/24 [History Last Taken Unknown] cyclobenzaprine 5 mg tablet 5 mg PO QHS 01/12/24 [History Last Taken Unknown] divalproex 125 mg capsule,delayed release sprinkle 125 mg PO BID 01/12/24 [History Last Taken Unknown] galantamine 24 mg 24 hr capsule,extended release 24 mg PO DAILY 01/12/24 [History Last Taken Unknown] lisinopril 20 mg tablet 20 mg PO DAILY 01/12/24 [History Last Taken Unknown] melatonin 10 mg capsule 10 mg PO QHS 01/12/24 [History Last Taken Unknown] memantine 10 mg tablet 10 mg PO BID 01/12/24 [History Last Taken Unknown] Allergy/AdvReac Type Severity Reaction Status Date / Time acetaminophen AdvReac Severe hallucinati Verified 01/12/24 14:01 [From Darvocet-N] ons azithromycin [From Zithromax] AdvReac Severe swell/tingl Verified 01/12/24 14:01 e meperidine [From Demerol] AdvReac Severe numbness/vo Verified 01/12/24 14:01 miting oxytetracycline AdvReac Severe swell,tingl Verified 01/12/24 14:01 [From Terramycin] e Penicillins [PCN] AdvReac Severe swell,tingl Verified 01/12/24 14:01 e propoxyphene AdvReac Severe hallucinati Verified 01/12/24 14:01 [From Darvocet-N] ons Sulfa (Sulfonamide AdvReac Severe welts Verified 01/12/24 14:01 Antibiotics) Family History Father Hypertension Mother Alzheimer disease Diabetes Hypertension Surgical History History of appendectomy History of hysterectomy Hx of cholecystectomy Hx of tonsillectomy Social History Smoking Status: Former smoker ROS Constitutional Constitutional: Denies chills, fatigue, fever(s) or malaise Eyes Eyes: Denies blurry vision ENT HEENT: Denies headache(s) or nasal discharge Cardiovascular Cardiovascular: Denies chest pain, dyspnea on exertion or syncope Respiratory/Chest Respiratory/Chest: Denies cough, shortness of breath at rest or shortness of breath with exertion Gastrointestinal Gastrointestinal: Denies constipation, diarrhea, nausea or vomiting Genitourinary Genitourinary: Denies dysuria Musculoskeletal Musculoskeletal: Reports joint pain Neurologic Neurologic: Denies focal weakness, numbness or tremor(s) Psychiatric Psychiatric: Denies anxiety or depression Vital Signs Vital Signs Vital Signs: 01/12/24 14:02 01/12/24 15:30 01/12/24 17:00 Temperature 97.4 F L 98.1 F Temperature Source Temporal Pulse Rate 69 78 73 Respiratory Rate 14 24 H 19 H Blood Pressure 148/79 H 130/68 H 132/72 H Blood Pressure Mean 102 85 92 Blood Pressure Source Blood Pressure Position Blood Pressure Location Pulse Ox 98 96 94 Oxygen Delivery Method Room Air 01/12/24 17:00 01/12/24 19:06 Temperature 98.1 F 97.7 F L Temperature Source Oral Oral Pulse Rate 73 85 Respiratory Rate 19 H 18 Blood Pressure 132/72 H 146/52 H Blood Pressure Mean 92 83 Blood Pressure Source Monitor Blood Pressure Position Semi-Fowlers Blood Pressure Location Right Arm Pulse Ox 94 96 Oxygen Delivery Method Room Air Room Air Weight Weight: 166 lb 9.6 oz Body Mass Index (BMI) 30.4 Physical Exam Narrative General: Alert, Oriented x3, Cooperative, No apparent distress HEENT: Atraumatic, PERRLA, EOMI, Normocephalic Oral: Moist Mucosa Neck: Supple, No JVD Lungs: Diminished, Normal air movement, No rhonchi, No wheeze, No rales Cardiovascular: Regular rate, Regular Rhythm, Normal S1, Normal S2, No murmurs Abdomen: Soft, Non Tender, Non-Distended, No Hepato-splenomegaly Extremities: No edema, Capillary Refill Less than 3 Seconds Skin: No rashes, No breakdown Musculoskeletal: Tenderness palpation of the left hip, left leg externally rotated and shortened Neurological: No focal neurological deficits, Motor Exam 5/5 strength throughoutother than left lower extremity, Sensory exam intact to light touch and pain Psych/Mental Status: Normal Affect, Appropriate Results Lab / Micro Data 01/12/24 15:49 01/12/24 15:49 Labs: Laboratory Results - last 24 hr 01/12/24 14:53: Urine Color Yellow, Urine Clarity Clear, Urine pH 6.0, Ur Specific Spencer 1.020, Urine Protein 30 H, Urine Glucose (UA) Normal, Urine Ketones 5 H, Urine Occult Blood 25 H, Urine Nitrite Negative, Urine Bilirubin 1 H, Urine Urobilinogen 1 H, Ur Leukocyte Esterase 100 H, Urine RBC 0 SEEN, Urine WBC 0-5 SEEN, Ur Squamous Epith Cells 0 SEEN, Urine Bacteria 1+, Urine Mucus 1+ 01/12/24 15:49: WBC 18.0 H, RBC 4.15 L, Hgb 12.9, Hct 40.7, MCV 98.1, MCH 31.1, MCHC 31.7 L, RDW Std Deviation 46.8 H, RDW Coeff of Jina 13.1, Plt Count 294, MPV10.2, Immature Gran % (Auto) 0.500, Neut % (Auto) 88.1 H, Lymph % (Auto) 8.4 L, [place] % (Auto) 2.6, Eos % (Auto) 0.1, Baso % (Auto) 0.3, Absolute Neuts (auto) 15.9 H, Absolute Lymphs (auto) 1.52, Nucleated RBC % 0, Sodium 139, Potassium 4.4, Chloride 105, Carbon Dioxide 29.0, Anion Gap 5, BUN 24 H, Creatinine 1.38 H, Estim Creat Clear Calc 30.01, Est GFR (MDRD) Af Amer 47 L, Est GFR (MDRD) Non-Af 39 L, BUN/Creatinine Ratio 17.4, Glucose 168 H, Calcium 9.0 Imaging Radiology Impression Brain CT 01/12/24 14:23 IMPRESSION: Chronic involutional changes of the brain. 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 Electronically Signed: Naga Garcia MD at 15:23 EDT , Cervical Spine CT 01/12/24 14:23 IMPRESSION: Multilevel degenerative changes, as described above. Electronically Signed: Naga Garcia MD at 15:26 EDT , Chest X-Ray 01/12/24 14:55 IMPRESSION: No acute cardiopulmonary pathology Electronically Signed: Solomon Pichardo MD at 16:53 EDT Reading Location ID and State: [facility] / [place] Tel , Service support , Hip/Pelvis X-Ray 01/12/24 14:55 IMPRESSION: Comminuted left intertrochanteric fracture. Electronically Signed: Naga Garcia MD at 15:10 EDT , Lower Extremity CT 01/12/24 15:25 IMPRESSION: Acute comminuted intertrochanteric fracture of the left femur. Electronically Signed: Jimi Rubin MD at 16:48 EDT Reading Location ID and State: [facility] / [place] Tel , Service support , Assessment & Plan Assessment/Plan (1) Fracture, intertrochanteric, left femur: PLAN: Plan 1. Left intertrochanteric femur fracture secondary to mechanical fall ? She did have a vitamin D checked in 2022 that was normal ? Will consult orthopedic surgery for repair, likely tomorrow ? PT/OT ? She would like to go to [facility] for SNF placement if necessary ? Continue with pain medication ? N.p.o. after midnight 2. Essential HTN ? Blood pressures are currently stable ? Can resume her home lisinopril and Norvasc ? We will monitor make adjustments as necessary 3. Anxiety/depression/dementia ? Stable ? Can resume all of her home medications DVT: SCDs Charges/Coding Visit Charges Inpatient E&M: 93535 Init Hosp L2 01/12/241941 <Electronically signed by Howard Fragoso MD> Cosigner Signature (if applicable): CC: Dr. Yoav Chakraborty MD; Dr. Howard Fragoso MD~ Signed [facility] Work Phone: [phone] 105-124904-09-2024 Discharge summary Author Chacho Epperson [facility] January 12, 2024 6:27pm Note Date/Time January 12, 2024 3:50 pm [facility] Medical Records Department [address] [place] [address] Emergency Department Summary 01/12/24 MR#: [id number] Acct: [id number] Name: JACKELYN BRADSHAW Rep #:[id number] : 1940 83 From: Chacho Epperson DO PCP: Dr. Yoav Chakraborty MD Status:A DM IN Location: [facility] [id number] History of Present Illness Chief Complaint: Lower Extremity Injury [facility] Medical History Chronic kidney disease Dementia Hx of breast cancer Hypertension Skin cancer Home Medications lisinopril 40 mg tablet (Zestril) 20 mg PO DAILY 12/30/16 [History Last Taken Unknown] olanzapine 5 mg tablet 5 mg PO DAILY 08/05/22 [History Last Taken Unknown] oxybutynin chloride 5 mg tablet 5 mg PO BID 08/05/22 [History Last Taken Unknown] amlodipine 5 mg tablet 5 mg PO DAILY 01/12/24 [History Last Taken Unknown] citalopram 40 mg tablet 40 mg PO DAILY 01/12/24 [History Last Taken Unknown] cyclobenzaprine 5 mg tablet 5 mg PO QHS 01/12/24 [History Last Taken Unknown] divalproex 125 mg capsule,delayed release sprinkle 125 mg PO BID 01/12/24 [History Last Taken Unknown] galantamine 24 mg 24 hr capsule,extended release 24 mg PO DAILY 01/12/24 [History Last Taken Unknown] lisinopril 20 mg tablet 20 mg PO DAILY 01/12/24 [History Last Taken Unknown] melatonin 10 mg capsule 10 mg PO QHS 01/12/24 [History Last Taken Unknown] memantine 10 mg tablet 10 mg PO BID 01/12/24 [History Last Taken Unknown] Allergy/AdvReac Type Severity Reaction Status Date / Time acetaminophen AdvReac Severe hallucinati Verified 01/12/24 14:01 [From Darvocet-N] ons azithromycin [From Zithromax] AdvReac Severe swell/tingl Verified 01/12/24 14:01 e meperidine [From Demerol] AdvReac Severe numbness/vo Verified 01/12/24 14:01 miting oxytetracycline AdvReac Severe swell,tingl Verified 01/12/24 14:01 [From Terramycin] e Penicillins [PCN] AdvReac Severe swell,tingl Verified 01/12/24 14:01 e propoxyphene AdvReac Severe hallucinati Verified 01/12/24 14:01 [From Darvocet-N] ons Sulfa (Sulfonamide AdvReac Severe welts Verified 01/12/24 14:01 Antibiotics) Family History Father Hypertension Mother Alzheimer disease Diabetes Hypertension Surgical History History of appendectomy History of hysterectomy Hx of cholecystectomy Hx of tonsillectomy Social History Smoking Status: Former smoker EXAM Physical Exam Const Vital Signs: 01/12/24 14:02 01/12/24 15:30 01/12/24 17:00 Temperature 97.4 F L 98.1 F Temperature Source Temporal Pulse Rate 69 78 73 Respiratory Rate 14 24 H 19 H Blood Pressure 148/79 H 130/68 H 132/72 H Blood Pressure Mean 102 85 92 Pulse Ox 98 96 94 Oxygen Delivery Method Room Air 01/12/24 17:00 Temperature 98.1 F Temperature Source Oral Pulse Rate 73 Respiratory Rate 19 H Blood Pressure 132/72 H Blood Pressure Mean 92 Pulse Ox 94 Oxygen Delivery Method Room Air MDM MDM MDM Narrative Medical decision making narrative: Patient presenting with left hip pain after mechanical Shortened and internallyrotated likely fracture. Patient medicated with morphine, Zofran. Patient would likely need surgical clearance and EKG was obtained which shows normal sinus rhythm with a ventricular rate of 69 bpm without ischemic change. CT brain and cervical spine were negative. No chest x-ray was obtained and patienthas no acute process. X-rays of the left hip on my interpretation 3 views show left intertrochanteric fracture with comminution. Discussed case with Dr. Morgan who recommended a CT image to rule out malignancy on that side. CT of the left hip does not show any evidence of this. CBC shows leukocytosis of 18. Hemoglobin 12.9. Platelets are 294. Creatinine mildly elevated 1.38. Electrolytes are normal. Chest x-ray on my interpretation showed no acute cardiopulmonary process. The radiologist interpretation agrees. EKG sinus rhythm at 69 bpm without sign ischemic change or ectopy on my interpretation. Urinalysis negative for infection. Patient was discussed with hospitalist for admission for surgery. Impression: 1. mechanical fall 2. leukocytosis 3. Left intertrochanteric fracture 4. Closed head injury Lab Data Attestation: I reviewed the patient's lab results. Labs: Laboratory Results - last 24 hr 01/12/24 01/12/24 14:53 15:49 WBC 18.0 H RBC 4.15 L Hgb 12.9 Hct 40.7 MCV 98.1 MCH 31.1 MCHC 31.7 L RDW Std Deviation 46.8 H RDW Coeff of Jina 13.1 Plt Count 294 MPV 10.2 Immature Gran % (Auto) 0.500 Neut % (Auto) 88.1 H Lymph % (Auto) 8.4 L [place] % (Auto) 2.6 Eos % (Auto) 0.1 Baso % (Auto) 0.3 Absolute Neuts (auto) 15.9 H Absolute Lymphs (auto) 1.52 Nucleated RBC % 0 Sodium 139 Potassium 4.4 Chloride 105 Carbon Dioxide 29.0 Anion Gap 5 BUN 24 H Creatinine 1.38 H Estim Creat Clear Calc 30.01 Est GFR (MDRD) Af Amer 47 L Est GFR (MDRD) Non-Af 39 L BUN/Creatinine Ratio 17.4 Glucose 168 H Calcium 9.0 Urine Color Yellow Urine Clarity Clear Urine pH 6.0 Ur Specific Spencer 1.020 Urine Protein 30 H Urine Glucose (UA) Normal Urine Ketones 5 H Urine Occult Blood 25 H Urine Nitrite Negative Urine Bilirubin 1 H Urine Urobilinogen 1 H Ur Leukocyte Esterase 100 H Urine RBC 0 SEEN Urine WBC 0-5 SEEN Ur Squamous Epith Cells 0 SEEN Urine Bacteria 1+ Urine Mucus 1+ Radiography Diagnostic Testing: Clinical Impression(s) from Imaging Studies Brain CT 01/12/24 14:23 IMPRESSION: Chronic involutional changes of the brain. 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 Electronically Signed: Naga Garcia MD at 15:23 EDT , Cervical Spine CT 01/12/24 14:23 IMPRESSION: Multilevel degenerative changes, as described above. Electronically Signed: Naga Garcia MD at 15:26 EDT , Chest X-Ray 01/12/24 14:55 IMPRESSION: No acute cardiopulmonary pathology Electronically Signed: Solomon Pichardo MD at 16:53 EDT Reading Location ID and State: [facility] / [place] Tel , Service support , Hip/Pelvis X-Ray 01/12/24 14:55 IMPRESSION: Comminuted left intertrochanteric fracture. Electronically Signed: Naga Garcia MD at 15:10 EDT , Lower Extremity CT 01/12/24 15:25 IMPRESSION: Acute comminuted intertrochanteric fracture of the left femur. Electronically Signed: Jimi Rubin MD at 16:48 EDT , Discharge Plan Triage Chief Complaint: Lower Extremity Injury ED Provider: Chacho Epperson Dx/Rx/DC Orders Primary Care Provider: Yoav Chakraborty What to do if you have Problems For any increased pain, shortness of breath, bleeding, nausea or vomiting, chestpain, or any unexpected problems, contact your Primary Care Provider. Call [facility] ([phone]) or report to the closest Emergency Room. Call 911 if necessary. 01/12/24 1827 <Electronically signed by Chacho Epperson DO> Cosigner Signature (if applicable): CC: Dr. Yoav Chakraborty MD ~ Signed [facility] Work Phone: [phone]) 760-226404-09-2024 Discharge summary Author Chacho Epperson [facility] January 12, 2024 6:27pm Note Date/Time January 12, 2024 3:50 pm [facility] Medical Records Department [address] [place] [address] Emergency Department Summary 01/12/24 MR#: [id number] Acct: [id number] Name: JACKELYN BRADSHAW Rep #:[id number] : 1940 83 From: Chacho Epperson DO PCP: Dr. Yoav Chakraborty MD Status:A DM IN Location: [address] History of Present Illness Chief Complaint: Lower Extremity Injury [facility] Medical History Chronic kidney disease Dementia Hx of breast cancer Hypertension Skin cancer Home Medications lisinopril 40 mg tablet (Zestril) 20 mg PO DAILY 12/30/16 [History Last Taken Unknown] olanzapine 5 mg tablet 5 mg PO DAILY 08/05/22 [History Last Taken Unknown] oxybutynin chloride 5 mg tablet 5 mg PO BID 08/05/22 [History Last Taken Unknown] amlodipine 5 mg tablet 5 mg PO DAILY 01/12/24 [History Last Taken Unknown] citalopram 40 mg tablet 40 mg PO DAILY 01/12/24 [History Last Taken Unknown] cyclobenzaprine 5 mg tablet 5 mg PO QHS 01/12/24 [History Last Taken Unknown] divalproex 125 mg capsule,delayed release sprinkle 125 mg PO BID 01/12/24 [History Last Taken Unknown] galantamine 24 mg 24 hr capsule,extended release 24 mg PO DAILY 01/12/24 [History Last Taken Unknown] lisinopril 20 mg tablet 20 mg PO DAILY 01/12/24 [History Last Taken Unknown] melatonin 10 mg capsule 10 mg PO QHS 01/12/24 [History Last Taken Unknown] memantine 10 mg tablet 10 mg PO BID 01/12/24 [History Last Taken Unknown] Allergy/AdvReac Type Severity Reaction Status Date / Time acetaminophen AdvReac Severe hallucinati Verified 01/12/24 14:01 [From Darvocet-N] ons azithromycin [From Zithromax] AdvReac Severe swell/tingl Verified 01/12/24 14:01 e meperidine [From Demerol] AdvReac Severe numbness/vo Verified 01/12/24 14:01 miting oxytetracycline AdvReac Severe swell,tingl Verified 01/12/24 14:01 [From Terramycin] e Penicillins [PCN] AdvReac Severe swell,tingl Verified 01/12/24 14:01 e propoxyphene AdvReac Severe hallucinati Verified 01/12/24 14:01 [From Darvocet-N] ons Sulfa (Sulfonamide AdvReac Severe welts Verified 01/12/24 14:01 Antibiotics) Family History Father Hypertension Mother Alzheimer disease Diabetes Hypertension Surgical History History of appendectomy History of hysterectomy Hx of cholecystectomy Hx of tonsillectomy Social History Smoking Status: Former smoker EXAM Physical Exam Const Vital Signs: 01/12/24 14:02 01/12/24 15:30 01/12/24 17:00 Temperature 97.4 F L 98.1 F Temperature Source Temporal Pulse Rate 69 78 73 Respiratory Rate 14 24 H 19 H Blood Pressure 148/79 H 130/68 H 132/72 H Blood Pressure Mean 102 85 92 Pulse Ox 98 96 94 Oxygen Delivery Method Room Air 01/12/24 17:00 Temperature 98.1 F Temperature Source Oral Pulse Rate 73 Respiratory Rate 19 H Blood Pressure 132/72 H Blood Pressure Mean 92 Pulse Ox 94 Oxygen Delivery Method Room Air MDM MDM MDM Narrative Medical decision making narrative: Patient presenting with left hip pain after mechanical Shortened and internallyrotated likely fracture. Patient medicated with morphine, Zofran. Patient would likely need surgical clearance and EKG was obtained which shows normal sinus rhythm with a ventricular rate of 69 bpm without ischemic change. CT brain and cervical spine were negative. No chest x-ray was obtained and patienthas no acute process. X-rays of the left hip on my interpretation 3 views show left intertrochanteric fracture with comminution. Discussed case with Dr. Morgan who recommended a CT image to rule out malignancy on that side. CT of the left hip does not show any evidence of this. CBC shows leukocytosis of 18. Hemoglobin 12.9. Platelets are 294. Creatinine mildly elevated 1.38. Electrolytes are normal. Chest x-ray on my interpretation showed no acute cardiopulmonary process. The radiologist interpretation agrees. EKG sinus rhythm at 69 bpm without sign ischemic change or ectopy on my interpretation. Urinalysis negative for infection. Patient was discussed with hospitalist for admission for surgery. Impression: 1. mechanical fall 2. leukocytosis 3. Left intertrochanteric fracture 4. Closed head injury Lab Data Attestation: I reviewed the patient's lab results. Labs: Laboratory Results - last 24 hr 01/12/24 01/12/24 14:53 15:49 WBC 18.0 H RBC 4.15 L Hgb 12.9 Hct 40.7 MCV 98.1 MCH 31.1 MCHC 31.7 L RDW Std Deviation 46.8 H RDW Coeff of Jina 13.1 Plt Count 294 MPV 10.2 Immature Gran % (Auto) 0.500 Neut % (Auto) 88.1 H Lymph % (Auto) 8.4 L [place] % (Auto) 2.6 Eos % (Auto) 0.1 Baso % (Auto) 0.3 Absolute Neuts (auto) 15.9 H Absolute Lymphs (auto) 1.52 Nucleated RBC % 0 Sodium 139 Potassium 4.4 Chloride 105 Carbon Dioxide 29.0 Anion Gap 5 BUN 24 H Creatinine 1.38 H Estim Creat Clear Calc 30.01 Est GFR (MDRD) Af Amer 47 L Est GFR (MDRD) Non-Af 39 L BUN/Creatinine Ratio 17.4 Glucose 168 H Calcium 9.0 Urine Color Yellow Urine Clarity Clear Urine pH 6.0 Ur Specific Spencer 1.020 Urine Protein 30 H Urine Glucose (UA) Normal Urine Ketones 5 H Urine Occult Blood 25 H Urine Nitrite Negative Urine Bilirubin 1 H Urine Urobilinogen 1 H Ur Leukocyte Esterase 100 H Urine RBC 0 SEEN Urine WBC 0-5 SEEN Ur Squamous Epith Cells 0 SEEN Urine Bacteria 1+ Urine Mucus 1+ Radiography Diagnostic Testing: Clinical Impression(s) from Imaging Studies Brain CT 01/12/24 14:23 IMPRESSION: Chronic involutional changes of the brain. 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 Electronically Signed: Naga Garcia MD at 15:23 EDT , Cervical Spine CT 01/12/24 14:23 IMPRESSION: Multilevel degenerative changes, as described above. Electronically Signed: Naga Garcia MD at 15:26 EDT , Chest X-Ray 01/12/24 14:55 IMPRESSION: No acute cardiopulmonary pathology Electronically Signed: Solomon Pichardo MD at 16:53 EDT , Hip/Pelvis X-Ray 01/12/24 14:55 IMPRESSION: Comminuted left intertrochanteric fracture. Electronically Signed: Naga Garcia MD at 15:10 EDT , Lower Extremity CT 01/12/24 15:25 IMPRESSION: Acute comminuted intertrochanteric fracture of the left femur. Electronically Signed: Jimi Rubin MD at 16:48 EDT , Discharge Plan Triage Chief Complaint: Lower Extremity Injury ED Provider: Chacho Epperson Dx/Rx/DC Orders Primary Care Provider: Yoav Chakraborty What to do if you have Problems For any increased pain, shortness of breath, bleeding, nausea or vomiting, chestpain, or any unexpected problems, contact your Primary Care Provider. Call [facility] ([phone]) or report to the closest Emergency Room. Call 911 if necessary. 01/12/241826 <Electronically signed by Chacho Epperson DO> Cosigner Signature (if applicable): CC: Dr. Yoav Chakraborty MD ~ Signed [facility] Work Phone: [phone]) 650-325403-08-2024 History of Present illness Narrative* Elle Mcdermott MA - 12/11/2023 12:04 PM EST Advanced [facility] Registered Nurse present: Breast Exam Elle Mcdermott MA * Leonid Graham MD - 12/11/2023 9:25 AM EST The patient is a 82-year-old female. Status post left-sided lumpectomy in 2006 for left-sided breast cancer. Received adjuvant chemotherapy followed by radiation followed by 5 years of Arimidex that was completed in 2012. 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 This was biopsied and found to be consistent with ER positive/99%, MI +90% and HER2 negative by IHC. The patient was diagnosed with relapse in 2019. A PET scan showed uptake in the right iliac bone near the SI joint, there is also some questionable bilateral hilar lymphadenopathy at thattime. The patient was started on Faslodex along with palbociclib. Subsequently was given radiation to the area of solitary metastasis in the right iliac bone. We did palbociclib for a total of 2 years. Patient was having issues with excessive fatigue. No progression identified and hence decided to stop this and continue with the Faslodex. The patient has issues with dementia now. However is tolerating the Faslodex relatively well. Family has decided not to put her through CAT scans. The patient is currently doing relatively well. On Faslodex alone. No other acute issues. Review Of Systems: General: Denies any fatigue. No fever, chills, night sweats, weight loss, headaches or loss of appetite. Stamina intact. HEENT/Neck: No hearing/vision changes; no pain, masses, or swelling. No evidence of sores in the mouth. Respiratory: No cough, productive sputum, hemoptysis, chest pain, shortness of breath or wheezing. Cardiovascular: No palpatations, chest pain,shotness or breath, exertional dyspnea or leg swelling. Gastrointestinal: No nausea, vomiting, dysphagia, abdominal pain,melana or hematochezia. No diahreaorconstipation. No change in the bowel habbits. Genitourinary: No dysuria, nocturia, frequency, urgency, hematuria or incontinence. Musculoskeletal: No joint or pain bone pain: No limitation of motion. No problems with the gait. Neurological: No sensory or motor abnormalities; no headaches or dizziness. Dermatologic: No rash, skin lesions or itching. Psychiatric: No sleep disturbances, mood disorders, depression, etc. Hematologic: No bleeding, bruising or echymisis. Lymphatic System: No new lymph gland enlargement or and new lumps of bumps in the body. Endocrine: No heat or cold intolerance, diabetes or other abnormalities The rest of systems reviewed and essentially unremarkable. Physical Examination: BP 161/65 Pulse 60 Temp 36.3 C (97.3 F) (Temporal Artery) Resp 16 SpO2 97% The patient was awake alert oriented. Didn't appear to be in acute distress. HEENT: No pallor, icterus, cyanosis, oral cavity shows no evidence of mucositis, lesions, or ulcers. Trachea midline. No JVD, carotid bruit, thyromegaly, cervical lymphadenopathy or supra-infraclavicular lymphadenopathy. CVS: S1-S2 heard no S3 no murmurs or pericardial rub. No peripheral edema. Lungs: Chest wall nontender. No dullness to percussion. Clear to auscultation bilaterally. No rhonchi or rales noted. No pleural rub or at it sounds noted. Abdomen: Normal inspection, nondistended no dilated veins. Soft nontender no organomegaly. No palpable masses noted. Hem/ Lymph: No peripheral lymphadenopathy or any palpable masses. Neuro Exam: High mental functions were normal. Cranial nerves II through XII are normal. No gross abnormality noted on sensory or motor system exam. Musculoskeletal: No joint deformities noted. No evidence of synovitis, swelling or tenderness in the joints or bursitis. Skin: No evidence to suggest any bruising, ecchymosis, petechiae and symptoms of hand-foot syndrome. Breast examination. Postradiation postsurgical changes noted in the left breast. No definite palpable mass. No cutaneous lesions. No evidence of lymphadenopathy in the left axilla. The right breast, inspection palpation without any evidence of right axillary lymphadenopathy. Labs: DATA: Diagnostic tests reviewed for today's visit: Most recent labs and imaging results. CBC: WBC (k/uL) Date Value 12/10/2023 7.11 09/12/2021 3.32 RBC (m/uL) Date Value 12/10/2023 3.74 09/12/2021 2.58 Hemoglobin (g/dL) Date Value 12/10/2023 12.0 09/12/2021 9.6 Hematocrit (%) Date Value 12/10/2023 36.1 09/12/2021 28.8 Platelet Count (k/uL) Date Value 12/10/2023 237 09/12/2021 190 MCV (fL) Date Value 12/10/2023 96.5 09/12/2021 111.6 MCH Date Value 12/10/2023 32.1 pg 09/12/2021 37.2 pG MPV (fL) Date Value 12/10/2023 10.3 09/12/2021 10.7 CMP: Sodium (mmol/L) Date Value 12/10/2023 139 09/12/2021 140 Chloride (mmol/L) Date Value 12/10/2023 103 09/12/2021 103 CO2 (mmol/L) Date Value 12/10/2023 26 09/12/2021 25 BUN (mg/dL) Date Value 12/10/2023 27 09/12/2021 29 Creatinine (mg/dL) Date Value 12/10/2023 1.31 09/12/2021 1.50 Creatinine (POCT) (mg/dL) Date Value 05/27/2022 1.40 Glucose (mg/dL) Date Value 12/10/2023 127 09/12/2021 131 Protein, Total (g/dL) Date Value 12/10/2023 6.7 09/12/2021 7.0 Calcium (mg/dL) Date Value 09/12/2021 9.4 Calcium, Total (mg/dL) Date Value 12/10/2023 9.1 Magnesium (mg/dL) Date Value 03/09/2023 2.2 Bilirubin, Total (mg/dL) Date Value 12/10/2023 0.3 09/12/2021 0.3 Alkaline Phosphatase (U/L) Date Value 12/10/2023 101 09/12/2021 72 ALT (U/L) Date Value 12/10/2023 10 09/12/2021 6 AST (U/L) Date Value 12/10/2023 12 09/12/2021 12 Anion Gap (mmol/L) Date Value 12/10/2023 10 09/12/2021 12 Imaging Studies: None Assessment: 1. 83 year old female with a diagnosis of metastatic breast cancer. Patient with bone metastasis. Currently on Faslodex. Seems to be tolerating it relatively well. Her dementia more or less stable. Patient not having any deterioration. 2. No physical symptoms of pain, weight loss. LFTs normal. No evidence to suggest disease progression on clinical and lab exam. No imaging studies as per the request of the family. Continue with Faslodex. See her back again at in 2 to 3 months. Leonid Graham MD documented in this encounterUniversity [facility]als [facility]02-08-2024 History of Present illness Narrative* Janett Betancourt APRN.CNP - 11/12/2023 5:13 PM EST November 12, 2023 5:[address] Graham patient Order for Faslodex signed for today to facilitate treatment Janett Betancourt APRN.DRYING ROOM OPERATOR documented in this encounterUniversity Hospitals [facility]11-25-2023 History of Present illness Narrative* Leonid Graham MD - 08/29/2023 10:12 AM EST The patient is a 82-year-old female. Status post left-sided lumpectomy in 2006 for left-sided breast cancer. Received adjuvant chemotherapy followed by radiation followed by 5 years of Arimidex that was completed in 2012. 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 This was biopsied and found to be consistent with ER positive/99%, MI +90% and HER2 negative by IHC. The patient was diagnosed with relapse in 2019. A PET scan showed uptake in the right iliac bone near the SI joint, there is also some questionable bilateral hilar lymphadenopathy at thattime. The patient was started on Faslodex along with palbociclib. Subsequently was given radiation to the area of solitary metastasis in the right iliac bone. We did palbociclib for a total of 2 years. Patient was having issues with excessive fatigue. No progression identified and hence decided to stop this and continue with the Faslodex. The patient has issues with dementia now. However is tolerating the Faslodex relatively well. Family has decided not to put her through CAT scans. The patient is currently doing relatively well. On Faslodex alone. No other acute issues. On examination:BP 158/72 Pulse 60 Temp 36 C (96.8 F) (Temporal) Wt 77.6 kg (171 lb 1.2 oz) SpO2 97% BMI 31.29 kg/m The patient was awake alert oriented. Didn't appear to be in acute distress. HEENT: No pallor, icterus, cyanosis, oral cavity shows no evidence of mucositis, lesions, or ulcers. Trachea midline. No JVD, carotid bruit, thyromegaly, cervical lymphadenopathy or supra-infraclavicular lymphadenopathy. CVS: S1-S2 heard no S3 no murmurs or pericardial rub. No peripheral edema. Lungs: Chest wall nontender. No dullness to percussion. Clear to auscultation bilaterally. No rhonchi or rales noted. No pleural rub or at it sounds noted. Abdomen: Normal inspection, nondistended no dilated veins. Soft nontender no organomegaly. No palpable masses noted. Hem/ Lymph: No peripheral lymphadenopathy or any palpable masses. Neuro Exam: High mental functions were normal. Cranial nerves II through XII are normal. No gross abnormality noted on sensory or motor system exam. Musculoskeletal: No joint deformities noted. No evidence of synovitis, swelling or tenderness in the joints or bursitis. Skin: No evidence to suggest any bruising, ecchymosis, petechiae and symptoms of hand-foot syndrome. Latest Reference Range & Units 07/23/23 09:34 Sodium 136 - 144 mmol/L 141 Potassium 3.7 - 5.1 mmol/L 4.6 Chloride 97 - 105 mmol/L 105 CO2 22 - 30 mmol/L 28 BUN 7 - 21 mg/dL 26 (H) Creatinine 0.58 - 0.96 mg/dL 1.26 (H) Glucose 74 - 99 mg/dL 119 (H) Protein, Total 6.3 - 8.0 g/dL 6.8 Calcium 8.5 - 10.2 mg/dL 9.1 Albumin 3.9 - 4.9 g/dL 3.4 (L) Bilirubin, Total 0.2 - 1.3 mg/dL 0.2 Alkaline Phosphatase 34 - 123 U/L 89 ALT 7 - 38 U/L 7 AST 13 - 35 U/L 13 Anion Gap 9 - 18 mmol/L 8 (L) (H): Data is abnormally high (L): Data is abnormally low Latest Reference Range & Units 07/23/23 09:34 WBC 3.70 - 11.00 k/uL 8.24 RBC 3.90 - 5.20 m/uL 3.77 (L) Hemoglobin 11.5 - 15.5 g/dL 11.8 Hematocrit 36.0 - 46.0 % 36.8 Platelet Count 150 - 400 k/uL 224 MCV 80.0 - 100.0 fL 97.6 MCH 26.0 - 34.0 pg 31.3 MCHC 30.5 - 36.0 g/dL 32.1 MPV 9.0 - 12.7 fL 10.5 RDW-CV 11.5 - 15.0 % 12.7 DTYPE Auto Neut% % 66.4 Abs Neut (ANC) 1.45 - 7.50 k/uL 5.47 Lymph% % 25.6 Abs Lymph 1.00 - 4.00 k/uL 2.11 [place]% % 6.4 Abs [place] <0.87 k/uL 0.53 Eosin% % 0.7 Abs Eosin <0.46 k/uL 0.06 (L): Data is abnormally low Assesment 1. 82-year-old female with a diagnosis of metastatic breast cancer. On Faslodex. We will continue the current course. The family does not want to be more aggressive with imaging because of her dementia. If progression noted then consider hospice and palliative care alone. 2. She will get her next flu shot today. Leonid Graham MD documented in this [facility]10-19-2023 History of Present illness Narrative* Janett Betancourt APRN.DRYING ROOM OPERATOR - 07/23/2023 3:58 PM EDT July 23, 2023 3:[address] Graham patient Order for Faslodex signed for today to facilitate treatment Janett Betancourt APRN.DRYING ROOM OPERATOR documented in this encounterUniversity Hospitals [facility]09-22-2023 History of Present illness Narrative* Janett Betancourt APRN.CNP - 06/26/2023 9:30 AM EDT June 25, 2023 4:[address] Graham patient Order for Faslodex signed for today to facilitate treatment Janett Betancourt APRN.DRYING ROOM OPERATOR documented in this encounterUniversity Hospitals [facility]08-25-2023 History of Present illness Narrative* Janett Betancourt APRN.CNP - 05/29/2023 9:10 AM EDT May 29, 2023 9:[address] Graham patient Order for Faslodex signed for today to facilitate treatment Janett Betancourt APRN.DRYING ROOM OPERATOR documented in this [facility]07-29-2023 Telephone encounter Note * Telephone Encounter - Ailin Stanley RN - 05/02/2023 12:46 PM EDT S: Patient calling the [facility] for a medication refill. B: Medication: Citalopram 20 mg . A. Daughter requesting refill. R: Paged medical education specialist provider. Dr. Art prescribed Citalopram 20 mg 2 times daily. Dispense 60. No refills. Called [facility] pharmacy @ [phone]. Daughter notified. Message sent to provider via right fax. Your fax has been successfully sent to Dr. Chakraborty at [phone]. Reason for Disposition [1] Prescription refill request for NON-ESSENTIAL medicine (i.e., no harm to patient if med not taken) AND [2] triager unable to refill per department policy Protocols used: Medication Refill and Renewal [id number] [id number] Miscellaneous Notes* Telephone Encounter - Ailin Stanley RN - 05/02/2023 12:46 PM EDT S: Patient calling the [facility] for a medication refill. B: Medication: Citalopram 20 mg . A. Daughter requesting refill. R: Paged medical education specialist provider. Dr. Art prescribed Citalopram 20 mg 2 times daily. Dispense 60. No refills. Called [facility] @ [phone]. Daughter notified. Message sent to provider via right fax. Your fax has been successfully sent to Dr. Chakraborty at [phone]. Reason for Disposition [1] Prescription refill request for NON-ESSENTIAL medicine (i.e., no harm to patient if med not taken) AND [2] triager unable to refill per department policy Protocols used: Medication Refill and Renewal [id number] documented in this encounterSUniversity Hospitals St. John Medical [id number] History of Present illness Narrative* Janett Betancourt APRN.AFSHIN - 05/01/2023 9:42 AM EDT May 01, 2023 9:[address] Graham patient Order for Faslodex signed for today to facilitate treatment Janett Betancourt APRN.CNP documented in this encounterUniversity Hospitals [facility]06-30-2023 History of Present illness Narrative* Janett Betancourt APRN.CNP - 04/03/2023 9:00 AM EDT April 02, 2023 5:[address] Graham patient Order for Faslodex signed for today to facilitate treatment Janett Betancourt APRN.CNP documented in this encounterUniversity Hospitals [facility]03-10-2023 History of Present illness Narrative* Leonid Graham MD - 12/12/2022 10:26 AM EST The patient is a 80-year-old female with a diagnosis of metastatic breast cancer. The patient with right sacral metastasis. Disease confined to the bone alone. S/p local radiation . Was treated with palbociclib and Faslodex for a year. Treatment completed in July 2021. Because of issues with persistent fatigue decision was made to drop the palbociclib prescription and continue with the Faslodex alone. Doing relatively well without any acute issues. Recently diagnosed with dementia. Part of this note is carried forward from note dictated: 05/29/22t is appropriately updated. The patient is a 80-year-old female. She underwent a lumpectomy for a left-sided breast cancer in 2006. According to the patient she received post surgical adjuvant chemotherapy along with radiation followed by 5 years of Arimidex which she completed in 2012. The patient was followed at [place]. [I do not have any records of the pathology or the treatment details within our system]. She was seen by her primary oncologist once a year. Came in with acute pain in the left thigh and left groin. A CT of the abdomen and pelvis without contrast was performed which identified a lytic lesion in the right iliac bone. The patient per se hasno issue of any pain and discomfort along the right hemipelvis. The noncontrast CAT scan also failed to show any evidence of any retroperitoneal lymphadenopathy orliver lesions. No evidence of any adrenal lesions. The patient has had no issues with bone pain in the past. We proceeded with a biopsy of the lytic lesion. The biopsy was consistent with this being a metastatic breast cancer. The tumor was ER strongly +99% MI +90% and HER-2 negative by IHC. PET scan dated 09/04/2020 shows a focus of intense uptake is identified in the medial right iliac bone near the SI joint, having maximum SUV of 10.5; corresponding to a small lytic lesion identified in the CT scan measuring approximately 1.3 cm in diameter. In addition to this there was questionable bilateral hilar lymphadenopathy with a SUV uptake of around 4.7. There was also uptake in the rightshoulder likely degenerative/rotator cuff related changes. She finished radiation on 10/12/2020 to her right iliac bone with Dr. Hammond. She is also on [id number] mg daily. On Faslodex and receiving Zometa infusions. Restaging chest/abdomen/pelvis dated 01/22/2021 show a decrease in size in lesions of the right ilium adjacent to sacroiliac joint. Also noted is interval development of mild left hydroureter of uncertain etiology. The patient was seen by my nurse practitioner 4 weeks ago and complaining of new back pain at the lower lumbar area. This was quite acute. No focal neurological deficits. No history of fall or trauma. A MRI was ordered to evaluate this. MRI dated 03/14/2021 showed acute/subacute right sacral insufficiency fracture. This is close to the known site of metastasis along the right medial iliac bone. No significant change in the size of the metastatic lesion in the right medial iliac bone. No new areasof metastasis identified. Spinal canal stenosis worse at the level of L3 and L4. This abnormality corresponds to insufficiency fracture is a combination secondary to osteoporosis and the radiation that was given to the site. No issues with tolerance of the Ibrance. MRI of the lumbar spine done on 03/14/2021 showed a acute right sacral insufficiency fracture. This was in the area that was previously radiated. I think this is related both to the metastatic diseasein the effect of radiation. No other area to suggest progression. Restaging CAT scans from July 2021 shows no evidence of progression. The patient is having issues with fatigue and tolerance to palbociclib. We decided to stop it. She stopped taking the Ibrance on 09/12/2021. Repeat imaging from 11/05/2021 was compared to the previous scans. There is no evidence of any progression. Again identified was the bone metastasis in the right iliac bone along with fracture of the right ring of the sacrum. Restaging CAT scans of the chest abdomen pelvis dated 05/27/2022 shows no evidence of any distant metastasis. No evidence of any significant retroperitoneal lymphadenopathy. No lung nodules of concern. Presence of the sacral lesion which is more or less stable. The patient is doing relatively well. No acute issues. On her last visit because of dementia the family decided that there is no value to continue to put her through CAT scans but to continue with the Faslodex as long as she is getting clinical benefit. On examination:BP 142/80 Pulse 68 Temp 36.7 C (98 F) (Temporal) Resp 18 Wt 75.8 kg (167 lb) SpO2 98% BMI 30.54 kg/m The patient was awake alert oriented. Didn't appear to be in acute distress. HEENT: No pallor, icterus, cyanosis, oral cavity shows no evidence of mucositis, lesions, or ulcers. Trachea midline. No JVD, carotid bruit, thyromegaly, cervical lymphadenopathy or supra-infraclavicular lymphadenopathy. CVS: S1-S2 heard no S3 no murmurs or pericardial rub. No peripheral edema. Lungs: Chest wall nontender. No dullness to percussion. Clear to auscultation bilaterally. No rhonchi or rales noted. No pleural rub or at it sounds noted. Abdomen: Normal inspection, nondistended no dilated veins. Soft nontender no organomegaly. No palpable masses noted. Hem/ Lymph: No peripheral lymphadenopathy or any palpable masses. Neuro Exam: High mental functions were normal. Cranial nerves II through XII are normal. No gross abnormality noted on sensory or motor system exam. Musculoskeletal: No joint deformities noted. No evidence of synovitis, swelling or tenderness in the joints or bursitis. Skin: No evidence to suggest any bruising, ecchymosis, petechiae and symptoms of hand-foot syndrome. Latest Reference Range & Units 12/11/22 08:22 WBC 3.70 - 11.00 k/uL 7.06 RBC 3.90 - 5.20 m/uL 3.92 Hemoglobin 11.5 - 15.5 g/dL 12.3 Hematocrit 36.0 - 46.0 % 38.0 Platelet Count 150 - 400 k/uL 224 MCV 80.0 - 100.0 fL 96.9 MCH 26.0 - 34.0 pg 31.4 MCHC 30.5 - 36.0 g/dL 32.4 MPV 9.0 - 12.7 fL 10.6 RDW-CV 11.5 - 15.0 % 13.2 Latest Reference Range & Units 12/11/22 08:22 Sodium 136 - 144 mmol/L 141 Potassium 3.7 - 5.1 mmol/L 4.1 Chloride 97 - 105 mmol/L 105 CO2 22 - 30 mmol/L 27 BUN 7 - 21 mg/dL 15 Creatinine 0.58 - 0.96 mg/dL 1.09 (H) Glucose 74 - 99 mg/dL 103 (H) Protein, Total 6.3 - 8.0 g/dL 7.1 Calcium 8.5 - 10.2 mg/dL 9.5 Albumin 3.9 - 4.9 g/dL 3.6 (L) Bilirubin, Total 0.2 - 1.3 mg/dL 0.3 Alkaline Phosphatase 34 - 123 U/L 91 ALT 7 - 38 U/L 11 AST 13 - 35 U/L 18 Anion Gap 9 - 18 mmol/L 9 (H): Data is abnormally high (L): Data is abnormally low Leonid Graham MD documented in this encounterUniversity Hospitals [facility]01-13-2023 History of Present illness Narrative* Janett Betancourt APRN.CNP - 10/17/2022 8:50 AM EST October 17, 2022 8:[address] Graham patient Order for Faslodex signed for today to facilitate treatment Last received on 09/19/2022 Janett Betancourt APRN.DRYING ROOM OPERATOR documented in this encounterUniversity Hospitals [facility]12-02-2022 History of Present illness Narrative* Leonid Graham MD - 09/05/2022 10:22 AM EST Jackelyn Bradshaw is a 80 year old female diagnosis of metastatic breast cancer with relapsed disease in the form of a right sacral metastasis. Confirmed with a bone marrow biopsy. The patient was treated with local radiation. Started on palbociclib and Faslodex. She has been on this combination for the past 1 year. No evidence of any breakthrough metastasis as per imaging done in July 2021. Patient complaining of increasing fatigue. Her hemoglobin has gradually dropped down with the Ibrance from a value of around 11.5 down to 9.5. Patient recently diagnosed with dementia. Tolerating the Faslodex otherwise without any acute issues. Part of this note is carried forward from note dictated: 05/29/22t is appropriately updated. The patient is a 80-year-old female. She underwent a lumpectomy for a left-sided breast cancer in 2006. According to the patient she received post surgical adjuvant chemotherapy along with radiation followed by 5 years of Arimidex which she completed in 2012. The patient was followed at [place]. [I do not have any records of the pathology or the treatment details within our system]. She was seen by her primary oncologist once a year. Came in with acute pain in the left thigh and left groin. A CT of the abdomen and pelvis without contrast was performed which identified a lytic lesion in the right iliac bone. The patient per se hasno issue of any pain and discomfort along the right hemipelvis. The noncontrast CAT scan also failed to show any evidence of any retroperitoneal lymphadenopathy orliver lesions. No evidence of any adrenal lesions. The patient has had no issues with bone pain in the past. We proceeded with a biopsy of the lytic lesion. The biopsy was consistent with this being a metastatic breast cancer. The tumor was ER strongly +99% MI +90% and HER-2 negative by IHC. PET scan dated 09/04/2020 shows a focus of intense uptake is identified in the medial right iliac bone near the SI joint, having maximum SUV of 10.5; corresponding to a small lytic lesion identified in the CT scan measuring approximately 1.3 cm in diameter. In addition to this there was questionable bilateral hilar lymphadenopathy with a SUV uptake of around 4.7. There was also uptake in the rightshoulder likely degenerative/rotator cuff related changes. She finished radiation on 10/12/2020 to her right iliac bone with Dr. Hammond. She is also on [id number] mg daily. On Faslodex and receiving Zometa infusions. Restaging chest/abdomen/pelvis dated 01/22/2021 show a decrease in size in lesions of the right ilium adjacent to sacroiliac joint. Also noted is interval development of mild left hydroureter of uncertain etiology. The patient was seen by my nurse practitioner 4 weeks ago and complaining of new back pain at the lower lumbar area. This was quite acute. No focal neurological deficits. No history of fall or trauma. A MRI was ordered to evaluate this. MRI dated 03/14/2021 showed acute/subacute right sacral insufficiency fracture. This is close to the known site of metastasis along the right medial iliac bone. No significant change in the size of the metastatic lesion in the right medial iliac bone. No new areasof metastasis identified. Spinal canal stenosis worse at the level of L3 and L4. This abnormality corresponds to insufficiency fracture is a combination secondary to osteoporosis and the radiation that was given to the site. No issues with tolerance of the Ibrance. MRI of the lumbar spine done on 03/14/2021 showed a acute right sacral insufficiency fracture. This was in the area that was previously radiated. I think this is related both to the metastatic diseasein the effect of radiation. No other area to suggest progression. Restaging CAT scans from July 2021 shows no evidence of progression. The patient is having issues with fatigue and tolerance to palbociclib. We decided to stop it. She stopped taking the Ibrance on 09/12/2021. Repeat imaging from 11/05/2021 was compared to the previous scans. There is no evidence of any progression. Again identified was the bone metastasis in the right iliac bone along with fracture of the right ring of the sacrum. Restaging CAT scans of the chest abdomen pelvis dated 05/27/2022 shows no evidence of any distant metastasis. No evidence of any significant retroperitoneal lymphadenopathy. No lung nodules of concern. Presence of the sacral lesion which is more or less stable. Review Of Systems: General: Denies any fatigue. No fever, chills, night sweats, weight loss, headaches or loss of appetite. Stamina intact. HEENT/Neck: No hearing/vision changes; no pain, masses, or swelling. No evidence of sores in the mouth. Respiratory: No cough, productive sputum, hemoptysis, chest pain, shortness of breath or wheezing. Cardiovascular: No palpatations, chest pain,shotness or breath, exertional dyspnea or leg swelling. Gastrointestinal: No nausea, vomiting, dysphagia, abdominal pain,melana or hematochezia. No diahreaorconstipation. No change in the bowel habbits. Genitourinary: No dysuria, nocturia, frequency, urgency, hematuria or incontinence. Musculoskeletal: No joint or pain bone pain: No limitation of motion. No problems with the gait. Neurological: No sensory or motor abnormalities; no headaches or dizziness. Dermatologic: No rash, skin lesions or itching. Psychiatric: No sleep disturbances, mood disorders, depression, etc. Hematologic: No bleeding, bruising or echymisis. Lymphatic System: No new lymph gland enlargement or and new lumps of bumps in the body. Endocrine: No heat or cold intolerance, diabetes or other abnormalities The rest of systems reviewed and essentially unremarkable. Physical Examination: BP 138/75 Pulse 63 Temp 36.6 C (97.8 F) (Temporal) Resp 18 Wt 78.9 kg (174 lb) SpO2 98% BMI 31.83 kg/m The patient was awake alert oriented. Didn't appear to be in acute distress. HEENT: No pallor, icterus, cyanosis, oral cavity shows no evidence of mucositis, lesions, or ulcers. Trachea midline. No JVD, carotid bruit, thyromegaly, cervical lymphadenopathy or supra-infraclavicular lymphadenopathy. CVS: S1-S2 heard no S3 no murmurs or pericardial rub. No peripheral edema. Lungs: Chest wall nontender. No dullness to percussion. Clear to auscultation bilaterally. No rhonchi or rales noted. No pleural rub or at it sounds noted. Abdomen: Normal inspection, nondistended no dilated veins. Soft nontender no organomegaly. No palpable masses noted. Hem/ Lymph: No peripheral lymphadenopathy or any palpable masses. Neuro Exam: High mental functions were normal. Cranial nerves II through XII are normal. No gross abnormality noted on sensory or motor system exam. Musculoskeletal: No joint deformities noted. No evidence of synovitis, swelling or tenderness in the joints or bursitis. Skin: No evidence to suggest any bruising, ecchymosis, petechiae and symptoms of hand-foot syndrome. Breast examination. Scar of lumpectomy with post radiation changes and distortion of the nipple noted in the left breast unchanged from before. No evidence of any palpable mass. No lymphadenopathy inthe left axilla. The right breast normal inspection palpation without any evidence of right axillary lymphadenopathy. Labs: DATA: Diagnostic tests reviewed for today's visit: Most recent labs and imaging results. CBC: WBC (k/uL) Date Value 08/21/2022 7.12 09/12/2021 3.32 RBC (m/uL) Date Value 08/21/2022 3.50 09/12/2021 2.58 Hemoglobin (g/dL) Date Value 08/21/2022 11.1 09/12/2021 9.6 Hematocrit (%) Date Value 08/21/2022 33.8 09/12/2021 28.8 Platelet Count (k/uL) Date Value 08/21/2022 228 09/12/2021 190 MCV (fL) Date Value 08/21/2022 96.6 09/12/2021 111.6 MCH Date Value 08/21/2022 31.7 pg 09/12/2021 37.2 pG MPV (fL) Date Value 08/21/2022 9.9 09/12/2021 10.7 CMP: Sodium (mmol/L) Date Value 08/21/2022 145 09/12/2021 140 Chloride (mmol/L) Date Value 08/21/2022 109 09/12/2021 103 CO2 (mmol/L) Date Value 08/21/2022 28 09/12/2021 25 BUN (mg/dL) Date Value 08/21/2022 18 09/12/2021 29 Creatinine (mg/dL) Date Value 08/21/2022 1.13 09/12/2021 1.50 Creatinine (POCT) (mg/dL) Date Value 05/27/2022 1.40 Glucose (mg/dL) Date Value 08/21/2022 111 09/12/2021 131 Protein, Total (g/dL) Date Value 08/21/2022 7.0 09/12/2021 7.0 Calcium (mg/dL) Date Value 09/12/2021 9.4 Calcium, Total (mg/dL) Date Value 08/21/2022 9.1 Bilirubin, Total (mg/dL) Date Value 08/21/2022 0.3 09/12/2021 0.3 Alkaline Phosphatase (U/L) Date Value 08/21/2022 79 09/12/2021 72 ALT (U/L) Date Value 08/21/2022 17 09/12/2021 6 AST (U/L) Date Value 08/21/2022 23 09/12/2021 12 Anion Gap (mmol/L) Date Value 08/21/2022 8 09/12/2021 12 Imaging Studies: No additional scans moving forward. Assessment: 1. 81 year old female with a diagnosis of relapsed metastatic breast cancer. Patient with bone metastasis in the sacrum that was radiated. She did 2 years of palbociclib along with Faslodex. We then continued with single agent Faslodex alone. 2. In view of her recent diagnosis of dementia I think it is appropriate to continue with the Faslodex as this is keeping her disease and recheck. However we will no longer do any CAT scans moving forward as the patient may not be a candidate for any additional therapy. We will follow her with lab work and physical exam. If her alkaline phosphatase starts to go up or her overall condition declines then consider palliative care and hospice at that time but for now continue with Faslodex alone. These points were discussed with the daughter. Leonid Graham MD documented in this encounterUniversity Hospitals Conne[facility] Center11-29-2022 Miscellaneous Notes* Telephone Encounter - Lizbet Doyle LPN - 09/02/2022 3:18 PM EST Approval Reference Number: [id number] Dates of Service: 09/27/2022 - 02/14/2022 Servicing Provider: [facility] - Requesting Provider: Dr. Gladys Beltrán, fulvestrant, 25mg documented in this encounterUniversity Hospitals Conneaut Medical Center11-11-2022 Miscellaneous Notes* Telephone Encounter - Theresa Lemon RN - 08/15/2022 3:12 PM EST Attempted to call patient to reschedule Faslodex Spoke with Daughter Tez - per daughter was admitted to geriatric psych unit in [place]. Rescheduled injection to next Thursday. Theresa Lemon, RN documented in this encounterUniversity Hospitals Conneaut Medical Center10-14-2022 Miscellaneous Notes* [facility] - DEBBIE Palacios - 07/18/2022 1:15 PM EDT Radiology Service Progress Note PATIENT NAME: Jackelyn Bradshaw DATE OF SERVICE: July 18, 2022 TIME: 1:14 PM PATIENT IDENTITY VERIFICATION COMPLETED USING TWO (2) IDENTIFIERS: Name and Date of confirmedby patient verbally and Name and Date of confirmed by identification band. FALL SCREENING: Has the patient had 2 falls in the last year or 1 fall with injury or currently using an Ambulatory Assistive Device (Walker, Cane, Wheelchair, Crutches, etc.)? No PATIENT GENDER DATA: Female. status: : No status: NO. PATIENT RELEVANT IMPLANT DATA REVIEWED: Not Applicable RADIOLOGY DEPARTMENT: CT; Exam(s) Completed: Brain PERIPHERAL IV DATA: Not applicable SIGNED BY: DEBBIE Palacios July 18, 2022 1:14 PM documented in this encounterUniversity Hospitals Conneaut [facility] Center10-07-2022 History of Present illness Narrative* Janett Betancourt APRN.CNP - 07/11/2022 8:31 AM EDT July 11, 2022 8:[address] Graham patient Order for Faslodex signed for today to facilitate treatment Last received on 06/13/2022 Janett Betancourt APRN.CNP documented in this encounterUniversity Hospitals Conneaut [facility] Center10-03-2022 Miscellaneous Notes* Telephone Encounter - Lizbet Doyle LPN - 07/07/2022 9:46 AM EDT Patient phones requesting refills as follows: Requested Prescriptions Pending Prescriptions Disp Refills ondansetron (ZOFRAN) 8 mg tablet [Pharmacy Med Name: Ondansetron HCl 8 MG Oral Tablet] 60 tablet 0 Sig: TAKE 1 TABLET BY MOUTH EVERY 12 HOURS NEEDED FOR NAUSEA AND VOMITING Please review and advise. Lizbet Doyle LPN documented in this encounterUniversity Hospitals Conneaut Medical Center08-23-2022 History of Present illness Narrative* RT London(R) - 05/27/2022 10:36 AM EDT Radiology Service Progress Note PATIENT NAME: Jackelyn Bradshaw DATE OF SERVICE: May 27, 2022 TIME: 10:36 AM PATIENT IDENTITY VERIFICATION COMPLETED USING TWO (2) IDENTIFIERS: Name and Date of confirmedby patient verbally. FALL SCREENING: Has the patient had 2 falls in the last year or 1 fall with injury or currently using an Ambulatory Assistive Device (Walker, Cane, Wheelchair, Crutches, etc.)? No PATIENT GENDER DATA: Female. status: : No status: NO. PATIENT RELEVANT IMPLANT DATA REVIEWED: Not Applicable RADIOLOGY DEPARTMENT: CT; Exam(s) Completed: Chest Abdomen Pelvis PERIPHERAL IV DATA: Site assessment: Clean,Dry and Intact, Site disposition Discontinued SIGNED BY: RT London(Giuliana) May 27, 2022 10:36 AM documented in this encounterUniversity Hospitals Conneaut Medical Center08-08-2022 Miscellaneous Notes* Telephone Encounter - Dania Charles Ma - 05/12/2022 3:37 PM EDT Patient's request for medication is as follows: Pending Prescriptions Disp Refills ONDANSETRON HCL 8 MG TABLET 60 tablet 0 Sig: TAKE 1 TABLET BY MOUTH EVERY 12 HOURS NEEDED FOR NAUSEA AND VOMITING SANDI: Yes Prescription(s) as above. Please process accordingly. Dania Charles Ma documented in this encounterUniversity Hospitals Conneaut [facility] Center07-15-2022 History of Present illness Narrative* Leonid Graham MD - 04/18/2022 11:17 AM EDT Jackelyn Bradshaw is a 80 year old female diagnosis of metastatic breast cancer with relapsed disease in the form of a right sacral metastasis. Confirmed with a bone marrow biopsy. The patient was treated with local radiation. Started on palbociclib and Faslodex. She has been on this combination for the past 1 year. No evidence of any breakthrough metastasis as per imaging done in July 2021. Patient complaining of increasing fatigue. Her hemoglobin has gradually dropped down with the Ibrance from a value of around 11.5 down to 9.5. Part of this note is carried forward from note dictated: 12/16/21.It is appropriately updated. The patient is a 80-year-old female. She underwent a lumpectomy for a left-sided breast cancer in 2006. According to the patient she received post surgical adjuvant chemotherapy along with radiation followed by 5 years of Arimidex which she completed in 2012. The patient was followed at [facility]. [I do not have any records of the pathology or the treatment details within our system]. She was seen by her primary oncologist once a year. Came in with acute pain in the left thigh and left groin. A CT of the abdomen and pelvis without contrast was performed which identified a lytic lesion in the right iliac bone. The patient per se hasno issue of any pain and discomfort along the right hemipelvis. The noncontrast CAT scan also failed to show any evidence of any retroperitoneal lymphadenopathy orliver lesions. No evidence of any adrenal lesions. The patient has had no issues with bone pain in the past. We proceeded with a biopsy of the lytic lesion. The biopsy was consistent with this being a metastatic breast cancer. The tumor was ER strongly +99% MI +90% and HER-2 negative by IHC. PET scan dated 09/04/2020 shows a focus of intense uptake is identified in the medial right iliac bone near the SI joint, having maximum SUV of 10.5; corresponding to a small lytic lesion identified in the CT scan measuring approximately 1.3 cm in diameter. In addition to this there was questionable bilateral hilar lymphadenopathy with a SUV uptake of around 4.7. There was also uptake in the rightshoulder likely degenerative/rotator cuff related changes. She finished radiation on 10/12/2020 to her right iliac bone with Dr. Hammond. She is also on [id number] mg daily. On Faslodex and receiving Zometa infusions. Restaging chest/abdomen/pelvis dated 01/22/2021 show a decrease in size in lesions of the right ilium adjacent to sacroiliac joint. Also noted is interval development of mild left hydroureter of uncertain etiology. The patient was seen by my nurse practitioner 4 weeks ago and complaining of new back pain at the lower lumbar area. This was quite acute. No focal neurological deficits. No history of fall or trauma. A MRI was ordered to evaluate this. MRI dated 03/14/2021 showed acute/subacute right sacral insufficiency fracture. This is close to the known site of metastasis along the right medial iliac bone. No significant change in the size of the metastatic lesion in the right medial iliac bone. No new areasof metastasis identified. Spinal canal stenosis worse at the level of L3 and L4. This abnormality corresponds to insufficiency fracture is a combination secondary to osteoporosis and the radiation that was given to the site. No issues with tolerance of the Ibrance. MRI of the lumbar spine done on 03/14/2021 showed a acute right sacral insufficiency fracture. This was in the area that was previously radiated. I think this is related both to the metastatic diseasein the effect of radiation. No other area to suggest progression. Restaging CAT scans from July 2021 shows no evidence of progression. The patient is having issues with fatigue and tolerance to palbociclib. We decided to stop it. She stopped taking the Ibrance on 09/12/2021. Repeat imaging from 11/05/2021 was compared to the previous scans. There is no evidence of any progression. Again identified was the bone metastasis in the right iliac bone along with fracture of the right ring of the sacrum. History of presenting illness: Currently doing relatively well without any acute issues. Review Of Systems: General: Denies any fatigue. No fever, chills, night sweats, weight loss, headaches or loss of appetite. Stamina intact. HEENT/Neck: No hearing/vision changes; no pain, masses, or swelling. No evidence of sores in the mouth. Respiratory: No cough, productive sputum, hemoptysis, chest pain, shortness of breath or wheezing. Cardiovascular: No palpatations, chest pain,shotness or breath, exertional dyspnea or leg swelling. Gastrointestinal: No nausea, vomiting, dysphagia, abdominal pain,melana or hematochezia. No diahreaorconstipation. No change in the bowel habbits. Genitourinary: No dysuria, nocturia, frequency, urgency, hematuria or incontinence. Musculoskeletal: No joint or pain bone pain: No limitation of motion. No problems with the gait. Neurological: No sensory or motor abnormalities; no headaches or dizziness. Dermatologic: No rash, skin lesions or itching. Psychiatric: No sleep disturbances, mood disorders, depression, etc. Hematologic: No bleeding, bruising or echymisis. Lymphatic System: No new lymph gland enlargement or and new lumps of bumps in the body. Endocrine: No heat or cold intolerance, diabetes or other abnormalities The rest of systems reviewed and essentially unremarkable. Physical Examination: BP 155/62 Pulse 69 Temp 36.6 C (97.9 F) (Temporal) Wt 89 kg (196 lb 4.8 oz) SpO2 96% BMI 35.90 kg/m The patient was awake alert oriented. Didn't appear to be in acute distress. HEENT: No pallor, icterus, cyanosis, oral cavity shows no evidence of mucositis, lesions, or ulcers. Trachea midline. No JVD, carotid bruit, thyromegaly, cervical lymphadenopathy or supra-infraclavicular lymphadenopathy. CVS: S1-S2 heard no S3 no murmurs or pericardial rub. No peripheral edema. Lungs: Chest wall nontender. No dullness to percussion. Clear to auscultation bilaterally. No rhonchi or rales noted. No pleural rub or at it sounds noted. Abdomen: Normal inspection, nondistended no dilated veins. Soft nontender no organomegaly. No palpable masses noted. Hem/ Lymph: No peripheral lymphadenopathy or any palpable masses. Neuro Exam: High mental functions were normal. Cranial nerves II through XII are normal. No gross abnormality noted on sensory or motor system exam. Musculoskeletal: No joint deformities noted. No evidence of synovitis, swelling or tenderness in the joints or bursitis. Skin: No evidence to suggest any bruising, ecchymosis, petechiae and symptoms of hand-foot syndrome. Labs: DATA: Diagnostic tests reviewed for today's visit: Most recent labs and imaging results. CBC: WBC (k/uL) Date Value 04/17/2022 6.49 09/12/2021 3.32 RBC (m/uL) Date Value 04/17/2022 3.24 09/12/2021 2.58 Hemoglobin (g/dL) Date Value 04/17/2022 10.4 09/12/2021 9.6 Hematocrit (%) Date Value 04/17/2022 32.5 09/12/2021 28.8 Platelet Count (k/uL) Date Value 04/17/2022 224 09/12/2021 190 MCV (fL) Date Value 04/17/2022 100.3 09/12/2021 111.6 MCH Date Value 04/17/2022 32.1 pg 09/12/2021 37.2 pG MPV (fL) Date Value 04/17/2022 9.6 09/12/2021 10.7 CMP: Sodium (mmol/L) Date Value 04/17/2022 143 09/12/2021 140 Chloride (mmol/L) Date Value 04/17/2022 104 09/12/2021 103 CO2 (mmol/L) Date Value 04/17/2022 29 09/12/2021 25 BUN (mg/dL) Date Value 04/17/2022 26 09/12/2021 29 Creatinine (mg/dL) Date Value 04/17/2022 1.70 09/12/2021 1.50 Glucose (mg/dL) Date Value 04/17/2022 93 09/12/2021 131 Protein, Total (g/dL) Date Value 04/17/2022 7.3 09/12/2021 7.0 Calcium (mg/dL) Date Value 09/12/2021 9.4 Calcium, Total (mg/dL) Date Value 04/17/2022 9.2 Bilirubin, Total (mg/dL) Date Value 04/17/2022 0.4 09/12/2021 0.3 Alkaline Phosphatase (U/L) Date Value 04/17/2022 98 09/12/2021 72 ALT (U/L) Date Value 04/17/2022 17 09/12/2021 6 AST (U/L) Date Value 04/17/2022 28 09/12/2021 12 Anion Gap (mmol/L) Date Value 04/17/2022 10 09/12/2021 12 Imaging Studies: Scans have been ordered for. Assessment: 1. 81 year old female with a diagnosis of relapsed metastatic breast cancer with solitary sacral metastasis. On Faslodex. Was on Ibrance for a total of 1 year but could not handle it because of anemia. 2. Stable. 3. See her back again in 2 months with scans. These have been appropriately Leonid Graham MD documented in this encounterUniversity Hospitals Conneaut [facility] Center07-12-2022 Miscellaneous Notes* Telephone Encounter - Dania Charles Ma - 04/15/2022 9:43 AM EDT Patient's request for medication is as follows: Pending Prescriptions Disp Refills OLANZAPINE 5 MG TABLET 30 tablet 1 Sig: TAKE 1 TABLET BY MOUTH AT BEDTIME NEEDED SANDI: Yes Prescription(s) as above. Please process accordingly. Dania Charles Ma documented in this encounterUniversity Hospitals Conneaut [facility] Center06-14-2022 Miscellaneous Notes* Telephone Encounter - Dania Charles Ma - 03/18/2022 9:27 AM EDT Patient's request for medication is as follows: Pending Prescriptions Disp Refills ONDANSETRON HCL 8 MG TABLET 60 tablet 0 Sig: TAKE 1 TABLET BY MOUTH EVERY 12 HOURS NEEDED FOR NAUSEA AND VOMITING SANDI: Yes Prescription(s) as above. Please process accordingly. Dania Charles Ma documented in this encounterUniversity Hospitals Conneaut Medical Center06-10-2022 History of Present illness Narrative* Janett Betancourt APRN.CNP - 03/14/2022 9:15 AM EDT March 14, 2022 9:[address] Graham patient Order for monthly Fasoldex signed for today to facilitate treatment Unfortunately, due to her creatine clearance being < 30 will need to hold Zometa Follow up appointment scheduled for 04/17/[address] Gladys Betancourt APRN.DRYING ROOM OPERATOR * Karlie Ivory RN - 03/14/2022 8:58 AM EDT Zometa held today (03/14/22) due to elevated creatinine clearance. Karlie Ivory RN March 14, 2022 11:07 AM documented in this encounterUniversity Hospitals Conneaut Medical Center06-10-2022 Miscellaneous Notes* Telephone Encounter - Dania Charles Ma - 03/14/2022 9:08 AM EDT Patient's request for medication is as follows: Pending Prescriptions Disp Refills OLANZAPINE 5 MG TABLET 30 tablet 0 Sig: Take 1 tablet by mouth at bedtime as needed. SANDI: No CITALOPRAM 20 MG TABLET 60 tablet 3 Sig: Take 1 tablet by mouth twice daily. SANDI: No Prescription(s) as above. Please process accordingly. Dania Charles Ma documented in this encounterUniversity Hospitals Conneaut Medical Center05-19-2022 Miscellaneous Notes* Letter - Mammography Coordinator - 02/20/2022 11:25 AM EDT February 20, 2022 PID: [id number] Jackelyn Bradshaw [address] [place] [address] Dear Ms. Bradshaw, We are pleased to inform you that the results of your recent breast imaging exam on 02/20/2022 are normal. Early detection of cancer is very important. We also understand recommendations regarding breast cancer screening are controversial. Please discuss with your primary care provider which strategy is best for you and whether a mammogram is right for you. Your imaging studies and report will be kept on [facility] at [facility] as part of your permanent medical record and are available for your continuing care. Thank you for allowing us to help in meeting your health care needs. Sincerely, Dr. Colindres Interpreting Radiologist [facility] (Normal over 40) documented in this encounterUniversity Hospitals Conneaut Medical Center05-19-2022 History of Present illness Narrative* RT Jordy(R) - 02/20/2022 9:40 AM EDT Radiology Service Progress Note PATIENT NAME: Jackelyn Bradshaw DATE OF SERVICE: February 20, 2022 TIME: 9:58 AM PATIENT IDENTITY VERIFICATION COMPLETED USING TWO (2) IDENTIFIERS: Name and Date of confirmedby patient verbally. FALL SCREENING: Has the patient had 2 falls in the last year or 1 fall with injury or currently using an Ambulatory Assistive Device (Walker, Cane, Wheelchair, Crutches, etc.)? No PATIENT GENDER DATA: Female. status: : No status: NO. PATIENT RELEVANT IMPLANT DATA REVIEWED: Not Applicable RADIOLOGY DEPARTMENT: Mammography PERIPHERAL IV DATA: Not applicable SIGNED BY: RT Jordy(Giuliana) February 20, 2022 9:58 AM documented in this [facility]05-11-2022 History of Present illness Narrative* Janett Betancourt APRN.CNP - 02/12/2022 10:50 AM EDT February 12, 2022 10:[address] Graham patient Order for Faslodex signed for today to facilitate treatment Last received on 01/13/2022 Janett Betancourt APRN.CNP documented in this [facility]05-02-2022 Miscellaneous Notes* Telephone Encounter - Dania Charles Ma - 02/03/2022 10:07 AM EDT Patient's request for medication is as follows: Pending Prescriptions Disp Refills OLANZAPINE 5 MG TABLET 30 tablet 0 Sig: TAKE 1 TABLET BY MOUTH AT BEDTIME NEEDED SANDI: Yes Prescription(s) as above. Please process accordingly. Dania Charles Ma documented in this encounterUniversity Hospitals Conneaut [facility] Center04-04-2022 Miscellaneous Notes* Telephone Encounter - Dania Charles Ma - 01/06/2022 9:35 AM EDT Patient's request for medication is as follows: Pending Prescriptions Disp Refills OLANZAPINE 5 MG TABLET 30 tablet 0 Sig: TAKE 1 TABLET BY MOUTH AT BEDTIME NEEDED SANDI: Yes Prescription(s) as above. Please process accordingly. Dania Charles Ma documented in this encounterUniversity Hospitals [facility]aut [facility] CenterEval[facility]* Diagnosis Cancer of breast, intraductal, 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 documented in this encounter [facility]* Diagnosis Cancer of breast, intraductal, left- Primary documented in this encounter [facility]* Diagnosis Cancer of breast, intraductal, left- Primary 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 Encounter for long-term (current) use of medications Encounter for long-term (current) use of other medications documented in this encounter [facility]* Diagnosis Cancer of breast, intraductal, 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 documented in this encounter [facility]* Diagnosis Cancer of breast, intraductal, 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 [facility]* Diagnosis Cancer of breast, intraductal, left- Primary documented in this encounter [facility]* Diagnosis Malignant neoplasm of female breast, unspecified estrogen receptor status, unspecified laterality, unspecified site of breast (HCC)- Primary Cancer of breast, intraductal, 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 documented in this encounter [facility]* Diagnosis Cancer of breast, intraductal, 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 [facility]* Diagnosis Cancer of breast, intraductal, left- Primary documented in this encounter [facility]* Diagnosis Cancer of breast, intraductal, left- Primary documented in this encounter [facility]* Diagnosis Cancer of breast, intraductal, 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 documented [facility] this encounter [facility] noteNo assessment information availableWUniversity Hospitals Health System Work Phone: Evaluation note* Diagnosis Cancer of breast, intraductal, left- Primary [facility] this [facility]* Diagnosis Cancer of breast, intraductal, left- Primary [facility]* Diagnosis Cancer of breast, intraductal, left- Primary [facility]* Diagnosis Cancer of breast, intraductal, left- Primary documented in this encounter [facility]* Diagnosis Cancer of breast, intraductal, left- Primary [facility]* Diagnosis Cancer of breast, intraductal, left- Primary [facility]* Diagnosis Malignant neoplasm of female breast, unspecified estrogen receptor status, unspecified laterality, unspecified site of breast (HCC)- Primary Cancer of breast, intraductal, left [facility]* Diagnosis Cancer of breast, intraductal, left- Primary Encounter for antineoplastic immunotherapy documented in this encounter [facility]* Diagnosis Cancer of breast, intraductal, left- Primary [facility]* Diagnosis Cancer of breast, intraductal, left- Primary [facility]* Diagnosis Cancer of breast, intraductal, left- Primary [facility]* Diagnosis Cancer of breast, intraductal, left- Primary documented [facility]* Diagnosis Need for influenza vaccination- Primary Need for prophylactic vaccination and inoculation against influenza Cancer of breast, intraductal, left documented in this encounter [facility]* Diagnosis Cancer of breast, intraductal, left- Primary Encounter for long-term (current) use of medications Encounter for long-term (current) use of other medications documented in this encounter [facility]* Diagnosis Cancer of breast, intraductal, left- Primary documented in this encounter [facility]* Diagnosis Cancer of breast, intraductal, left- Primary documented in this encounter [facility]* Diagnosis Onset Date Resolution Status Atrial fibrillation acute Fracture, intertrochanteric, left femur acute Invasive ductal carcinoma of left breast, stage 2 acute Osteoporosis chronic Van [facility] Work Phone: Evaluation note* Diagnosis Cancer of breast, intraductal, left- [facility] Ne[facility] of breast, distant metastasis staging category m1: distant detectable metastasis found by clinical and radiographic means and/or histologically proven larger than 0.2 mm, left (HCC)- [facility] Cancer of breast, intraductal, left- Primary Encounter for long-term (current) use of medications Encounter for long-term (current) use of other medications Cancer of breast, intraductal, left- [facility] of [facility], intraductal, left- [facility] Cancer of breast, intraductal, left- [facility] Cancer of breast, intraductal, left- [facility] Diagnosis Malignant neoplasm of female breast, unspecified estrogen receptor status, unspecified laterality, unspecified site of breast (HCC)- Primary History of cancer metastatic to bone [facility] Cancer of breast, intraductal, left- Primary Encounter for long-term (current) use of medications Encounter for long-term (current) use of other medications [facility], intraductal, left- [facility] of [facility], intraductal, left- [facility] Cancer of breast, intraductal, left- Primary 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 [facility] Diagnosis Cancer of breast, intraductal, left- [facility] Cancer of breast, intraductal, left- [facility] Diagnosis 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, estrogen receptor positive, unspecified laterality, unspecified site of breast (HCC)- [facility] Diagnosis Cancer of breast, intraductal, left- [facility] Diagnosis 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, estrogen receptor positive, unspecified laterality, unspecified site of breast (HCC)- Primary [facility] Diagnosis Cancer of breast, intraductal, left- Primary [facility] Diagnosis Malignant neoplasm of left breast in female, estrogen receptor positive, unspecified site of breast (HCC)- [facility] Additional Instructions Thank you for trusting us with your care today! Please take Tylenol (2 pills, 650 mg), ibuprofen (2 pills, 400 mg) every 6 hours as needed for pain and fever control. Please return to the emergency department if your symptoms change or worsen. Specifically if develop signs of infection which include redness, swelling, white-yellow discharge, bleeding, increasing pain, fever, vomiting. Please monitor blood pressure closely. Please return develop headache, changes in vision, chest pain, shortness of breath, if you have not urinated for greater than 12-hour period. Please take antibiotics until course complete. Please clean your wound daily. First 24 to 48 hours use peroxide and topical antimicrobial ointment such as Neosporin. After the first 24 to 48 hours please use soap and water. Please change your dressing daily. Please follow with your primary care physician for further outpatient evaluation and management.[facility] Work Phone: Patient's home Plan of care note* Visit Details Visit Type -PT SOC Discipline -Physical Therapy Problems Problem Description Start Date Status Goals Interve ntions Medication Education Disciplines: Skilled Services 02/23/2024 Active 1 goal linked to scheduled/docume nted intervention 1 goal intervention 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 Sepsis Disciplines: Skilled Services 02/23/2024 Active 1 goal linked to scheduled/docume nted intervention 1 goal intervention 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 Risk for skin breakdown Disciplines: Skilled Services 02/23/2024 Active 1 goal linked to scheduled/docume nted intervention 1 goal intervention 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 Physician Specific Parameters Disciplines: Skilled Services 02/23/2024 Active 1 goal linked to scheduled/docume nted intervention 1 goal intervention 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 Risk for Falls Disciplines: Skilled Services 02/23/2024 Active 1 goal linked to scheduled/docume nted intervention 1 goal intervention 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 Pain Disciplines: Skilled Services 02/23/2024 Active 1 goal linked to scheduled/docume nted intervention 1 goal intervention 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 Nutrition/Hydration Disciplines: Skilled Services 02/23/2024 Active 1 goal linked to scheduled/docume nted intervention 1 goal intervention 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 Discharge Disciplines: Skilled Services 02/23/2024 Active 1 goal linked to scheduled/docume nted intervention 2 goal interventions 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 Advance Directives Disciplines: Skilled Services 02/23/2024 Resolved on 02/23/2024 1 goal linked to scheduled/docume nted intervention 1 goal intervention 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 High Risk Medications Disciplines: Skilled Services 02/23/2024 Active 1 goal linked to scheduled/docume nted intervention 1 goal intervention 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 PT Impaired muscle performance and/or ROM Disciplines: PT 02/23/2024 Active 1 goal linked to scheduled/docume nted intervention 1 goal intervention 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 PT Impaired mobility Disciplines: PT 02/23/2024 Active 1 goal linked to scheduled/docume nted intervention 1 goal intervention 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 PT Impaired gait Disciplines: PT 02/23/2024 Active 1 goal linked to scheduled/docume nted intervention 1 goal intervention 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 PT Orthopedic Condition Disciplines: PT 02/23/2024 Active 1 goal linked to scheduled/docume nted intervention 2 goal interventions 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 PT Learning Assessment Disciplines: PT 02/23/2024 Active 1 goal linked to scheduled/docume nted intervention 1 goal intervention 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 PT Cardiovascular Disease Disciplines: PT 02/23/2024 Active 1 goal linked to scheduled/docume nted intervention 1 goal intervention 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 Cancer Disciplines: Skilled Services 02/23/2024 Active 1 goal linked to scheduled/docume nted intervention 1 goal intervention 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 Goals Goal Associated Problem Outcome Goal Met? Visit Notes Patient/caregiver will demonstrate ability to obtain, store, identify and administer ordered medications, keep accurate medication list in home, and adhere to medication schedule Description: Patient/caregiver will demonstrate ability to obtain, store, identify and administer ordered medications, keep accurate medication list in home, and adhere to medication schedule by 04/22/2024. Medication Education No Patient/caregiver will be able to identify and report symptoms of sepsis Description: Patient/caregiver will be able to identify signs/symptoms of sepsis infection and will verbalize actions to take if suspected by 04/22/2024. Sepsis No Manage risk for skin breakdown Description: Patient/caregiver will verbalize and demonstrate understanding of the risks and measures to be taken to monitor and prevent skin breakdown by 04/22/2024. Risk for skin breakdown No Patient to maintain parameters within physician-specified ranges throughout certification period Physician Specific Parameters No Manage Risk for falls Description: Patient/caregiver will verbalize knowledge of individualized fall prevention strategies by 04/22/2024. Risk for Falls No Manage Pain Description: Patient/caregiver will verbalize knowledge and understanding of appropriate techniques to control pain, including pain medication and non-pharmacological techniques. Patient will verbalize or demonstrate an acceptable level of pain as evidenced by a pain score of <3/10 and improvement in ability to perform activities of daily living to be achieved by 04/22/2024. Pain No Manage Nutrition/Hydration Description: Patient/caregiver will verbalize/demonstrate knowledge of prescribed diet and/or healthy nutrition to be achieved by 04/22/2024. Nutrition/Hydration No Manage discharge planning Description: Patient/caregiver will verbalize understanding of ongoing discharge plan provided related to disease management, arrangements for outpatient and/or community services, obtaining medications, supplies, and DME, as needed throughout certification period. Discharge No Patient/caregiver will make healthcare providers aware of and any changes to Advance Directives throughout certification period Advance Directives Completed Yes Patient/caregiver will teach back high risk medication side effect and precaution education Description: STG Patient/caregiver will verbalize understanding of high risk medication side effects and precautions to be achieved by 03/26/2024. LTG Patient/caregiver will continue to verbalize understanding of high risk medication side effects and precautions throughout certification period. High Risk Medications No Improved Muscle Performance and/or ROM Description: LTG: Patient and/or caregiver will verbalize/demonstrate independence with home exercise program, to improve functional mobility, to be achieved by 03/26/2024. PT Impaired muscle performance and/or ROM No Improved Transfers Description: STG: Patient will demonstrate safe transfers to/from bed, chair and couch with supervision, to be achieved by 03/12/2024. LTG: Patient will demonstrate safe transfers to/from toilet, shower/tub and car independently with AD, to be achieved by 03/26/2024. PT Impaired mobility No Improved Gait Description: STG: Patient will demonstrate improved gait ability as evidenced by ambulation >75 feet with front wheeled walker with supervision, in order to improve household mobility, to be achieved by 03/12/2024. LTG: Patient will demonstrate improved gait ability as evidenced by ambulation >150 feet with least restrictive device independently, to return to safe community ambulation, in order to return to prior level of function, to be achieved by 03/26/2024. PT Impaired gait No Manage Orthopedic Condition Description: Improve patient and/or caregiver understanding of post surgical and/or non-surgical orthopedic intervention management as evidenced by patient and/or caregiver able to verbalize, demonstrate, and teach back instruction, to be achieved by 03/26/2024. PT Orthopedic Condition No Demonstrate understanding of education Description: Patient and/or caregiver will understand educational instruction to be achieved by 03/26/2024. PT Learning Assessment No Manage Secondary Cardiovascular disease Description: Improve patient and/or caregiver understanding of secondary cardiovascular disease management as evidenced by patient and/or caregiver able to verbalize, demonstrate, and teach back instruction, to be achieved by 03/26/2024. PT Cardiovascular Disease No Improve symptom management of cancer and side effects of treatment Description: Patient/caregiver will verbalize understanding of cancer diagnosis, side effects of treatment, and management of symptoms by 04/22/2024. Cancer No Interventions Intervention Associated Problem/Goal Status Variance Visit Notes Medication Education Description: Evaluate/instruct patient/caregiver on obtaining, storing, identifying and administering ordered medications as well as keeping accurate medication list in the home and adhereing to medication schedule Problem:Medication Education Goal:Patient/caregive r will demonstrate ability to obtain, store, identify and administer ordered medications, keep accurate medication list in home, and adhere to medication schedule Completed Patient and Caregiver instructed on importance of keeping accurate medication list in home, need to take up-to-date medication list to all medical provider appointments and adhering to medication schedule. Risk of Sepsis Description: Patient is at risk for sepsis. Monitor closely for s/s of sepsis. Problem:Sepsis Goal:Patient/caregive r will be able to identify and report symptoms of sepsis Completed Instruct on the risks and measures to be taken to prevent skin breakdown Description: Patient's Salvador Score is: 17. A Salvador score <= to 18 indicates risk for skin breakdown. Problem:Risk for skin breakdown Goal:Manage risk for skin breakdown Completed caregiver instructed on maintaining skin integrity including: The need for every 1-2 hour turns, position changes, and maintaining activity as tolerated, Reducing risk of friction and shear, including use of draw sheet as appropriate, Elevating and protecting heels, Incontinence care, Inspecting bony prominences, Routine skin care and Notifying [facility] clinician of changes to skin integrity Evaluation for pressure reduction surfaces completed for chair and recommendations made for repositioning every 15-30 minutes, elevating heels in bed/in chair; avoidance of shearing forces. SPO2 Description: Notify Dr. Chakraborty if pulse ox is <92% at rest. Problem:Physician Specific Parameters Goal:Patient to maintain parameters within physician-specified ranges throughout certification period Completed Instruct on individual fall risk factors and strategies to prevent falls and injuries caused by falls. Problem:Risk for Falls Goal:Manage Risk for falls Completed PT: Patient and Caregiver instructed on Eliminating Environmental Hazards: Keep pathways clear, Keep pets out of pathways, Remove unsafe rugs, Move furniture from pathways, Keep rooms and walkways well lit, Install hand rails/grab bars, Wear supportive shoes or non-skid socks and Keep frequently used items within reach Incontinence Management: Bowel/Bladder program and Use incontinence pads/briefs Managing Cognitive Impairment/Depression: Recommended for caregiver to provide 24 hour supervision Managing Impaired Functional Mobility: Modification of current activities: pacing activities, rest breaks as needed and Use assistive device(s): front wheeled walker Managing Pain Instruct on pain and instruct on strategies to control pain Problem:Pain Goal:Manage Pain Completed patient and caregiver instructed on techniques to control pain including Pharmacological measures and Non-Pharmacological measures; rest, positioning/elevation, mobility/therapeutic exercise, distraction and breathing/relaxation. Define patient s appetite/hydration status and implement strategies to improve compliance with prescribed diet and/or healthy nutrition. Problem:Nutrition/Hyd ration Goal:Manage Nutrition/Hydration Completed reinforced patient and caregiver on implementing strategies to comply with prescribed diet, healthy nutrition and adequate hydration Instruct on ongoing discharge plan Problem:Discharge Goal:Manage discharge planning Completed Ongoing Discharge plan: Discharge plan discussed with patient and caregiver including frequency and duration for home PT and plan for transition to: caregiver assistance. Instruct on importance of follow-up appts and continued monitoring with medical provider &/or chronic care clinic Problem:Discharge Goal:Manage discharge planning Completed Education provided on importance of compliance with follow-up appointment(s). Recommendations: patient/caregiver to follow up with scheduling appointment(s) for post-acute/primary care provider/chronic care clinic Determine patient's Advance Directive Status Description: Patient does have advance directives. Patient's Advance Directives determined to be available in EMR Healthcare DPOA and DNR-CCA. Problem:Advance Directives Goal:Patient/caregive r will make healthcare providers aware of and any changes to Advance Directives throughout certification period Completed Discussed Advance Directives with Patient and/or Caregiver. Referred patient to Home Care handbook for further information on Healthcare DPOA & Living Will. Antipsychotic- educated on high risk medication Problem:High Risk Medications Goal:Patient/caregive r will teach back high risk medication side effect and precaution education Completed patient and caregiver educated on taking medication(s) as prescribed by provider. Do not stop medication or skip/alter doses without speaking with your provider. Discuss medication effectiveness or side effect concerns with your provider and home care team. There is a risk for weight gain and diabetes. Getting regular checkups and medical care as well as eating a nutritious diet, exercising regularly and getting enough sleep can help reduce this side effect. Other common side effects are dry mouth, dizziness, blurred vision, agitation or sedation (feeling tired or wired). Monitor for involuntary muscle movements such as tremors, muscle stiffness, or tics and report these to your prescribing provider. Seek emergency treatment if you develop seizures or a fever, muscle stiffness and delirium as this could be a sign of a rare but serious side effect. Physical Therapy Therapeutic Exercises Problem:PT Impaired muscle performance and/or ROM Goal:Improved Muscle Performance and/or ROM Completed patient and caregiver instructed on strengthening and range of motion exercises including heel slides, ankle pumps, quad sets, glut sets, hip abd in supine/reclined position with tactile, visual, written and verbal cues for proper form, pacing. patient and caregiver instructed to perform home exercise program multiple times per day at low repetitions which included ambulation every hour, george LE exercises. Physical Therapy Transfer Training Problem:PT Impaired mobility Goal:Improved Transfers Completed Transfer training and instruction to patient and caregiver on safe transfers to and from chair with minimal assist and tactile, visual and verbal cues for hand placement, use of momentum, monitoring for dizziness in standing, scooting to edge of chair prior to standing. Physical Therapy Gait Training Problem:PT Impaired gait Goal:Improved Gait Completed Gait training and instruction to patient and caregiver on safe ambulation with front wheeled walker for 50 feet with minimal assist, with tactile and verbal cues for corrections of gait deviations including upright posture, safety, especially when turning, step through gait pattern, monitoring fatigue. Instruct on orthopedic precautions and weight bearing restrictions Description: Weight bearing restrictions include: WBAT of involved extremity. Problem:PT Orthopedic Condition Goal:Manage Orthopedic Condition Completed patient and caregiver instructed on weight bearing restrictions. Instruct on self-management of post surgical and/or non-surgical orthopedic intervention Problem:PT Orthopedic Condition Goal:Manage Orthopedic Condition Completed patient and caregiver instructed on managagement of orthopedic condition, measures to avoid skin breakdown, staying well hydrated, eating foods with high protein, signs and symptoms of infection, signs and symptoms of DVT/PE, follow provider guidance for showering , instructed on when to call provider and instructed on when to call 911. Instruct and educate on knowledge deficits Problem:PT Learning Assessment Goal:Demonstrate understanding of education Completed patient and caregiver verbalize and/or demonstrate understanding of physical therapy education including cardiac disease management, orthopedic condition management, weight bearing precautions, pain management, nutrition, fall prevention strategies, home safety, functional activity and home exercise program. Education methods include: verbal cues, written instructions, visual cues and teach back. Further education required to improve knowledge and compliance with cardiac disease management, orthopedic condition management, weight bearing precautions, pain management, nutrition, fall prevention strategies, home safety, functional activity and home exercise program. Instruct on signs, symptoms, and management of secondary cardiovascular disease Problem:PT Cardiovascular Disease Goal:Manage Secondary Cardiovascular disease Completed Instructed caregiver on definition of cardiovascular disease, diagnosis of HTN, energy conservation and exercise and activity guidelines. Instruct patient/caregiver on cancer diagnosis, side effects of treatment, and management of symptoms Description: Instruct patient/caregiver on breast cancer diagnosis, side effects of treatment and management of symptoms. Problem:Cancer Goal:Improve symptom management of cancer and side effects of treatment Completed Patient and Caregiver instructed on cancer disease process, chemotherapy precautions and side effects and management of treatment side effects. [facility] Visit Details Visit Type -SN EVAL Discipline -Care Home Problems Problem Description Start Date Status Goals Interve ntions Medication Education Disciplines: Skilled Services 02/23/2024 Active 1 goal linked to scheduled/document ed intervention 1 goal intervention scheduled/document ed in this visit Sepsis Disciplines: Skilled Services 02/23/2024 Active 1 goal linked to scheduled/document ed intervention 1 goal intervention scheduled/document ed in this visit Risk for skin breakdown Disciplines: Skilled Services 02/23/2024 Active 1 goal linked to scheduled/document ed intervention 1 goal intervention scheduled/document ed in this visit Physician Specific Parameters Disciplines: Skilled Services 02/23/2024 Active 1 goal linked to scheduled/document ed intervention 1 goal intervention scheduled/document ed in this visit Risk for Falls Disciplines: Skilled Services 02/23/2024 Active 1 goal linked to scheduled/document ed intervention 1 goal intervention scheduled/document ed in this visit Pain Disciplines: Skilled Services 02/23/2024 Active 1 goal linked to scheduled/document ed intervention 1 goal intervention scheduled/document ed in this visit Nutrition/Hydr ation Disciplines: Skilled Services 02/23/2024 Active 1 goal linked to scheduled/document ed intervention 1 goal intervention scheduled/document ed in this visit Discharge Disciplines: Skilled Services 02/23/2024 Active 1 goal linked to scheduled/document ed intervention 1 goal intervention scheduled/document ed in this visit High Risk Medications Disciplines: Skilled Services 02/23/2024 Active 1 goal linked to scheduled/document ed intervention 1 goal intervention scheduled/document ed in this visit SN Referral Disciplines: Skilled Services 02/23/2024 Resolved on 02/25/2024 1 goal linked to scheduled/document ed intervention 1 goal intervention scheduled/document ed in this visit Cancer Disciplines: Skilled Services 02/23/2024 Active 1 goal linked to scheduled/document ed intervention 1 goal intervention scheduled/document ed in this visit SN Integumentary/ Wounds Disciplines: SN 02/25/2024 Active 1 goal linked to scheduled/document ed intervention 3 goal interventions scheduled/document ed in this visit SN Learning Assessment Disciplines: SN 02/25/2024 Active 1 goal linked to scheduled/document ed intervention 1 goal intervention scheduled/document ed in this visit Goals Goal Associated Problem Outcome Goal Met? Visit Notes Patient/caregiver will demonstrate ability to obtain, store, identify and administer ordered medications, keep accurate medication list in home, and adhere to medication schedule Description: Patient/caregiver will demonstrate ability to obtain, store, identify and administer ordered medications, keep accurate medication list in home, and adhere to medication schedule by 04/22/2024. Medication Education No Patient/caregiver will be able to identify and report symptoms of sepsis Description: Patient/caregiver will be able to identify signs/symptoms of sepsis infection and will verbalize actions to take if suspected by 04/22/2024. Sepsis No Manage risk for skin breakdown Description: Patient/caregiver will verbalize and demonstrate understanding of the risks and measures to be taken to monitor and prevent skin breakdown by 04/22/2024. Risk for skin breakdown No Patient to maintain parameters within physician-specified ranges throughout certification period Physician Specific Parameters No Manage Risk for falls Description: Patient/caregiver will verbalize knowledge of individualized fall prevention strategies by 04/22/2024. Risk for Falls No Manage Pain Description: Patient/caregiver will verbalize knowledge and understanding of appropriate techniques to control pain, including pain medication and non-pharmacological techniques. Patient will verbalize or demonstrate an acceptable level of pain as evidenced by a pain score of <3/10 and improvement in ability to perform activities of daily living to be achieved by 04/22/2024. Pain No Manage Nutrition/Hydration Description: Patient/caregiver will verbalize/demonstrate knowledge of prescribed diet and/or healthy nutrition to be achieved by 04/22/2024. Nutrition/Hydration No Manage discharge planning Description: Patient/caregiver will verbalize understanding of ongoing discharge plan provided related to disease management, arrangements for outpatient and/or community services, obtaining medications, supplies, and DME, as needed throughout certification period. Discharge No Patient/caregiver will teach back high risk medication side effect and precaution education Description: STG Patient/caregiver will verbalize understanding of high risk medication side effects and precautions to be achieved by 03/26/2024. LTG Patient/caregiver will continue to verbalize understanding of high risk medication side effects and precautions throughout certification period. High Risk Medications No Patient will be referred to additional discipline as needed SN Referral No Improve symptom management of cancer and side effects of treatment Description: Patient/caregiver will verbalize understanding of cancer diagnosis, side effects of treatment, and management of symptoms by 04/22/2024. Cancer No Patient/Caregiver will have improved healing and be free of signs and symptoms of complications Description: Patient/caregiver will verbalize management strategies to promote wound healing & prevent complications as evidenced by improved healing & no complications by 04/22/24. SN Integumentary/Wounds No Demonstrate understanding of education Description: Patient and/or caregiver will verbalize understanding of educational instruction provided throughout certification period. SN Learning Assessment No Interventions Intervention Associated Problem/Goal Status Variance Visit Notes Medication Education Description: Evaluate/instruct patient/caregiver on obtaining, storing, identifying and administering ordered medications as well as keeping accurate medication list in the home and adhereing to medication schedule Problem:Medication Education Goal:Patient/caregive r will demonstrate ability to obtain, store, identify and administer ordered medications, keep accurate medication list in home, and adhere to medication schedule Completed Patient and Caregiver instructed on importance of keeping accurate medication list in home, adhering to medication schedule and Medication, route, dose, frequency, purpose, and side effects of all medications. Risk of Sepsis Description: Patient is at risk for sepsis. Monitor closely for s/s of sepsis. Problem:Sepsis Goal:Patient/caregive r will be able to identify and report symptoms of sepsis Completed Instruct on the risks and measures to be taken to prevent skin breakdown Description: Patient's Salvador Score is: 17. A Salvador score <= to 18 indicates risk for skin breakdown. Problem:Risk for skin breakdown Goal:Manage risk for skin breakdown Completed patient and caregiver instructed on maintaining skin integrity including: Notifying [facility] clinician of changes to skin integrity SPO2 Description: Notify Dr. Chakraborty if pulse ox is <92% at rest. Problem:Physician Specific Parameters Goal:Patient to maintain parameters within physician-specified ranges throughout certification period Completed Instruct on individual fall risk factors and strategies to prevent falls and injuries caused by falls. Problem:Risk for Falls Goal:Manage Risk for falls Completed SN: Patient and Caregiver instructed on Eliminating Environmental Hazards: Keep pathways clear, Keep pets out of pathways, Remove unsafe rugs, Move furniture from pathways and Keep rooms and walkways well lit Managing Cognitive Impairment/Depression : Recommended use of visual cues/reminders for safety Instruct on pain and instruct on strategies to control pain Problem:Pain Goal:Manage Pain Completed pt denies c/o pain Define patient s appetite/hydration status and implement strategies to improve compliance with prescribed diet and/or healthy nutrition. Problem:Nutrition/Hyd ration Goal:Manage Nutrition/Hydration Completed instructed patient on implementing strategies to comply with healthy nutrition and adequate hydration Instruct on importance of follow-up appts and continued monitoring with medical provider &/or chronic care clinic Problem:Discharge Goal:Manage discharge planning Completed Education provided on importance of compliance with follow-up appointment(s). Recommendations: None Antipsychotic- educated on high risk medication Problem:High Risk Medications Goal:Patient/caregive r will teach back high risk medication side effect and precaution education Completed patient educated on taking medication(s) as prescribed by provider. Do not stop medication or skip/alter doses without speaking with your provider. Discuss medication effectiveness or side effect concerns with your provider and home care team. There is a risk for weight gain and diabetes. Getting regular checkups and medical care as well as eating a nutritious diet, exercising regularly and getting enough sleep can help reduce this side effect. Other common side effects are dry mouth, dizziness, blurred vision, agitation or sedation (feeling tired or wired). Monitor for involuntary muscle movements such as tremors, muscle stiffness, or tics and report these to your prescribing provider. Seek emergency treatment if you develop seizures or a fever, muscle stiffness and delirium as this could be a sign of a rare but serious side effect. SN evaluation and treatment Description: Evaluate and treat for chronic disease management & education, medication management & education and wound/skin management & education. Problem:SN Referral Goal:Patient will be referred to additional discipline as needed Completed Instruct patient/caregiver on cancer diagnosis, side effects of treatment, and management of symptoms Description: Instruct patient/caregiver on breast cancer diagnosis, side effects of treatment and management of symptoms. Problem:Cancer Goal:Improve symptom management of cancer and side effects of treatment Completed Patient instructed on cancer disease process. Wound Care: Perform wound care (1) Description: Wound Care Order: Wound location: left heel Wound type (etiology): Pressure injury Order: keep wound clean and dry, pad and protect with gauze and kerlix. clean wound daily with mild soap and water, change dressing daily. Frequency: daily Wound care to be completed by caregiver except for scheduled SN wound care visits. Measure wound/incision at least weekly. Okay to substitute comparable products from home care formulary. Problem:SN Integumentary/Wounds Goal:Patient/Caregive r will have improved healing and be free of signs and symptoms of complications Completed Completed by SN. Patient did tolerate well. Instruct patient/caregiver healing process and management measures to promote healing and avoid complications Problem:SN Integumentary/Wounds Goal:Patient/Caregive r will have improved healing and be free of signs and symptoms of complications Completed patient and caregiver instructed on the following: healing process, signs and symptoms of infection and importance of good nutrition. Instruct Patient/Caregiver on wound/incision care procedure as ordered by physician Problem:SN Integumentary/Wounds Goal:Patient/Caregive r will have improved healing and be free of signs and symptoms of complications Completed patient instructed on wound care as ordered by Physician. Instruct and educate on knowledge deficits Problem:SN Learning Assessment Goal:Demonstrate understanding of education Completed patient verbalize and/or demonstrate understanding of nursing education completed today. Education methods include: verbal cues and teach back. Further education required to improve knowledge and compliance with cancer care management, fall prevention/home safety strategies, incision/wound care management, medication management, nutrition and pain management. documented in this encounter [facility] Plan of care note* Visit Details Visit Type -PT CASE MANAGEME NT VISIT Discipline -Physical Therapy Problems Problem Description Start Date Status Goals Interve ntions Sepsis Disciplines: Skilled Services 02/23/2024 Active 1 goal linked to scheduled/document ed intervention 1 goal intervention scheduled/document ed in this visit Physician Specific Parameters Disciplines: Skilled Services 02/23/2024 Active 1 goal linked to scheduled/document ed intervention 1 goal intervention scheduled/document ed in this visit Risk for Falls Disciplines: Skilled Services 02/23/2024 Active 1 goal linked to scheduled/document ed intervention 1 goal intervention scheduled/document ed in this visit Pain Disciplines: Skilled Services 02/23/2024 Active 1 goal linked to scheduled/document ed intervention 1 goal intervention scheduled/document ed in this visit PT Impaired muscle performance and/or ROM Disciplines: PT 02/23/2024 Active 1 goal linked to scheduled/document ed intervention 1 goal intervention scheduled/document ed in this visit PT Impaired mobility Disciplines: PT 02/23/2024 Active 2 goals linked to scheduled/document ed interventions 2 goal interventions scheduled/document ed in this visit PT Impaired gait Disciplines: PT 02/23/2024 Active 1 goal linked to scheduled/document ed intervention 1 goal intervention scheduled/document ed in this visit PT Orthopedic Condition Disciplines: PT 02/23/2024 Active 1 goal linked to scheduled/document ed intervention 2 goal interventions scheduled/document ed in this visit PT Learning Assessment Disciplines: PT 02/23/2024 Active 1 goal linked to scheduled/document ed intervention 1 goal intervention scheduled/document ed in this visit Goals Goal Associated Problem Outcome Goal Met? Visit Notes Patient/caregiver will be able to identify and report symptoms of sepsis Description: Patient/caregiver will be able to identify signs/symptoms of sepsis infection and will verbalize actions to take if suspected by 04/22/2024. Sepsis No Patient to maintain parameters within physician-specified ranges throughout certification period Physician Specific Parameters No Manage Risk for falls Description: Patient/caregiver will verbalize knowledge of individualized fall prevention strategies by 04/22/2024. Risk for Falls No Manage Pain Description: Patient/caregiver will verbalize knowledge and understanding of appropriate techniques to control pain, including pain medication and non-pharmacological techniques. Patient will verbalize or demonstrate an acceptable level of pain as evidenced by a pain score of <3/10 and improvement in ability to perform activities of daily living to be achieved by 04/22/2024. Pain No Improved Muscle Performance and/or ROM Description: LTG: Patient and/or caregiver will verbalize/demonstrate independence with home exercise program, to improve functional mobility, to be achieved by 03/26/2024. PT Impaired muscle performance and/or ROM No Improved Transfers Description: STG: Patient will demonstrate safe transfers to/from bed, chair and couch with supervision, to be achieved by 03/12/2024. LTG: Patient will demonstrate safe transfers to/from toilet, shower/tub and car independently with AD, to be achieved by 03/26/2024. PT Impaired mobility No Improved Bed Mobility Description: STG: Patient will demonstrate improved bed mobility independently to be achieved by 03/12/2024. PT Impaired mobility No Improved Gait Description: STG: Patient will demonstrate improved gait ability as evidenced by ambulation >75 feet with front wheeled walker with supervision, in order to improve household mobility, to be achieved by 03/12/2024. LTG: Patient will demonstrate improved gait ability as evidenced by ambulation >150 feet with least restrictive device independently, to return to safe community ambulation, in order to return to prior level of function, to be achieved by 03/26/2024. PT Impaired gait No Manage Orthopedic Condition Description: Improve patient and/or caregiver understanding of post surgical and/or non-surgical orthopedic intervention management as evidenced by patient and/or caregiver able to verbalize, demonstrate, and teach back instruction, to be achieved by 03/26/2024. PT Orthopedic Condition No Demonstrate understanding of education Description: Patient and/or caregiver will understand educational instruction to be achieved by 03/26/2024. PT Learning Assessment No Interventions Intervention Associated Problem/Goal Status Variance Visit Notes Risk of Sepsis Description: Patient is at risk for sepsis. Monitor closely for s/s of sepsis. Problem:Sepsis Goal:Patient/caregive r will be able to identify and report symptoms of sepsis Completed SPO2 Description: Notify Dr. Chakraborty if pulse ox is <92% at rest. Problem:Physician Specific Parameters Goal:Patient to maintain parameters within physician-specified ranges throughout certification period Completed Instruct on individual fall risk factors and strategies to prevent falls and injuries caused by falls. Problem:Risk for Falls Goal:Manage Risk for falls Completed PT: Patient instructed on Eliminating Environmental Hazards: Keep pathways clear, Keep pets out of pathways, Remove unsafe rugs, Move furniture from pathways, Keep rooms and walkways well lit and Wear supportive shoes or non-skid socks Managing Impaired Functional Mobility: Use assistive device(s): front wheeled walker Managing Pain Instruct on pain and instruct on strategies to control pain Problem:Pain Goal:Manage Pain Completed patient instructed on techniques to control pain including Pharmacological measures and Non-Pharmacological measures; rest, positioning/elevation and use of thermal modalities, apply ice to affected area Physical Therapy Therapeutic Exercises Problem:PT Impaired muscle performance and/or ROM Goal:Improved Muscle Performance and/or ROM Completed patient and caregiver instructed on strengthening exercises including Supine : GS,QS,, HIPADD, HIP ABD, HEEL SLIDES, SAQ, SLR, BRIDGING X 10 with tactile and verbal cues for TECHNIQUE . patient instructed to perform home exercise program twice a day which included HOURLY AMBULATION. Physical Therapy Transfer Training Problem:PT Impaired mobility Goal:Improved Transfers Completed Transfer training and instruction to patient on safe transfers to and from bed and chair with stand by assist and tactile and verbal cues for technique Physical Therapy Bed Mobility Training Problem:PT Impaired mobility Goal:Improved Bed Mobility Completed Bed mobility training and instruction to patient, including supine<>sit, repositioning self and bridging with supervision and tactile and verbal cues for technique . Physical Therapy Gait Training Problem:PT Impaired gait Goal:Improved Gait Completed Gait training and instruction to patient on safe ambulation with front wheeled walker for 30' x 2 feet with stand by assist, with verbal cues for corrections of gait deviations including pacing , posture . Instruct on orthopedic precautions and weight bearing restrictions Description: Weight bearing restrictions include: WBAT of involved extremity. Problem:PT Orthopedic Condition Goal:Manage Orthopedic Condition Completed patient instructed on orthopedic precautions. Instruct on self-management of post surgical and/or non-surgical orthopedic intervention Problem:PT Orthopedic Condition Goal:Manage Orthopedic Condition Completed patient instructed on managagement of orthopedic condition, eating foods with high protein, signs and symptoms of infection, signs and symptoms of DVT/PE and instructed on when to call provider. Instruct and educate on knowledge deficits Problem:PT Learning Assessment Goal:Demonstrate understanding of education Completed patient verbalize and/or demonstrate understanding of physical therapy education including fall prevention strategies, home safety, functional activity and home exercise program. Education methods include: verbal cues. Further education required to improve knowledge and compliance with fall prevention strategies, home safety, functional activity and home exercise program. documented in this encounter [facility] Plan of care note* Visit Details Visit Type -OT EVAL Discipline -Occupational Therapy Problems Problem Description Start Date Status Goals Interve ntions Physician Specific Parameters Disciplines: Skilled Services 02/23/2024 Active 1 goal linked to scheduled/document ed intervention 1 goal intervention scheduled/document ed in this visit Discharge Disciplines: Skilled Services 02/23/2024 Active 1 goal linked to scheduled/document ed intervention 1 goal intervention scheduled/document ed in this visit OT Referral Disciplines: Skilled Services 02/23/2024 Resolved on 02/25/2024 1 goal linked to scheduled/document ed intervention 1 goal intervention scheduled/document ed in this visit OT Learning Assessment Disciplines: OT 02/25/2024 Active 1 goal linked to scheduled/document ed intervention 1 goal intervention scheduled/document ed in this visit Goals Goal Associated Problem Outcome Goal Met? Visit Notes Patient to maintain parameters within physician-specified ranges throughout certification period Physician Specific Parameters No Manage discharge planning Description: Patient/caregiver will verbalize understanding of ongoing discharge plan provided related to disease management, arrangements for outpatient and/or community services, obtaining medications, supplies, and DME, as needed throughout certification period. Discharge No Patient will be referred to additional discipline as needed OT Referral Completed Yes Ot eval completed Demonstrate understanding of education Description: Patient and/or caregiver will understand educational instruction to be achieved by 03/19/24. OT Learning Assessment No Interventions Intervention Associated Problem/Goal Status Variance Visit Notes SPO2 Description: Notify Dr. Chakraborty if pulse ox is <92% at rest. Problem:Physician Specific Parameters Goal:Patient to maintain parameters within physician-specified ranges throughout certification period Completed Instruct on ongoing discharge plan Problem:Discharge Goal:Manage discharge planning Completed Ongoing Discharge plan: Discharge plan discussed with patient and caregiver including frequency and duration for home OT and plan for transition to:caregiver asst OT evaluation and treatment Description: Evaluate and treat for the assessment of functional deficits and establishment of appropriate interventions and education to address: I/ADL training, functional transfers, DME/adaptive equipment recommendations, safety awareness, energy conservation, home safety and falls prevention recommendations and upper extremity strengthening and home exercise program training. Problem:OT Referral Goal:Patient will be referred to additional discipline as needed Completed Instruct and educate on knowledge deficits Problem:OT Learning Assessment Goal:Demonstrate understanding of education Completed Education methods include: verbal cues. Patient/Caregiver require further education to improve knowledge and compliance with fall prevention strategies, pain management, home safety and functional transfers. documented in this encounter [facility] Plan of care note* Visit Details Visit Type -[employer] Discipline -Physical Therapy Problems Problem Description Start Date Status Goals Interve ntions Medication Education Disciplines: Skilled Services 02/23/2024 Active 1 goal linked to scheduled/document ed intervention 1 goal intervention scheduled/document ed in this visit Sepsis Disciplines: Skilled Services 02/23/2024 Active 1 goal linked to scheduled/document ed intervention 1 goal intervention scheduled/document ed in this visit Risk for skin breakdown Disciplines: Skilled Services 02/23/2024 Active 1 goal linked to scheduled/document ed intervention 1 goal intervention scheduled/document ed in this visit Physician Specific Parameters Disciplines: Skilled Services 02/23/2024 Active 1 goal linked to scheduled/document ed intervention 1 goal intervention scheduled/document ed in this visit Risk for Falls Disciplines: Skilled Services 02/23/2024 Active 1 goal linked to scheduled/document ed intervention 1 goal intervention scheduled/document ed in this visit Pain Disciplines: Skilled Services 02/23/2024 Active 1 goal linked to scheduled/document ed intervention 1 goal intervention scheduled/document ed in this visit Discharge Disciplines: Skilled Services 02/23/2024 Active 1 goal linked to scheduled/document ed intervention 1 goal intervention scheduled/document ed in this visit PT Impaired muscle performance and/or ROM Disciplines: PT 02/23/2024 Active 1 goal linked to scheduled/document ed intervention 1 goal intervention scheduled/document ed in this visit PT Impaired gait Disciplines: PT 02/23/2024 Active 1 goal linked to scheduled/document ed intervention 1 goal intervention scheduled/document ed in this visit PT Impaired balance Disciplines: PT 02/23/2024 Active 1 goal linked to scheduled/document ed intervention 1 goal intervention scheduled/document ed in this visit PT Orthopedic Condition Disciplines: PT 02/23/2024 Active 1 goal linked to scheduled/document ed intervention 2 goal interventions scheduled/document ed in this visit PT Learning Assessment Disciplines: PT 02/23/2024 Active 1 goal linked to scheduled/document ed intervention 1 goal intervention scheduled/document ed in this visit Goals Goal Associated Problem Outcome Goal Met? Visit Notes Patient/caregiver will demonstrate ability to obtain, store, identify and administer ordered medications, keep accurate medication list in home, and adhere to medication schedule Description: Patient/caregiver will demonstrate ability to obtain, store, identify and administer ordered medications, keep accurate medication list in home, and adhere to medication schedule by 04/22/2024. Medication Education No Patient/caregiver will be able to identify and report symptoms of sepsis Description: Patient/caregiver will be able to identify signs/symptoms of sepsis infection and will verbalize actions to take if suspected by 04/22/2024. Sepsis No Manage risk for skin breakdown Description: Patient/caregiver will verbalize and demonstrate understanding of the risks and measures to be taken to monitor and prevent skin breakdown by 04/22/2024. Risk for skin breakdown No Patient to maintain parameters within physician-specified ranges throughout certification period Physician Specific Parameters No Manage Risk for falls Description: Patient/caregiver will verbalize knowledge of individualized fall prevention strategies by 04/22/2024. Risk for Falls No Manage Pain Description: Patient/caregiver will verbalize knowledge and understanding of appropriate techniques to control pain, including pain medication and non-pharmacological techniques. Patient will verbalize or demonstrate an acceptable level of pain as evidenced by a pain score of <3/10 and improvement in ability to perform activities of daily living to be achieved by 04/22/2024. Pain No Manage discharge planning Description: Patient/caregiver will verbalize understanding of ongoing discharge plan provided related to disease management, arrangements for outpatient and/or community services, obtaining medications, supplies, and DME, as needed throughout certification period. Discharge No Improved Muscle Performance and/or ROM Description: LTG: Patient and/or caregiver will verbalize/demonstrate independence with home exercise program, to improve functional mobility, to be achieved by 03/26/2024. PT Impaired muscle performance and/or ROM No Improved Gait Description: STG: Patient will demonstrate improved gait ability as evidenced by ambulation >75 feet with front wheeled walker with supervision, in order to improve household mobility, to be achieved by 03/12/2024. LTG: Patient will demonstrate improved gait ability as evidenced by ambulation >150 feet with least restrictive device independently, to return to safe community ambulation, in order to return to prior level of function, to be achieved by 03/26/2024. PT Impaired gait No Improved Balance Description: LTG: Patient will demonstrate improved standing balance to meet functional goals as evidenced by 4 stage balance score of stage 3 for 10 seconds to be achieved by 03/26/2024. LTG: Patient will demonstrate improved standing balance to meet functional goals as evidenced by TUG score of <50 seconds to be achieved by 03/26/2024. PT Impaired balance No Manage Orthopedic Condition Description: Improve patient and/or caregiver understanding of post surgical and/or non-surgical orthopedic intervention management as evidenced by patient and/or caregiver able to verbalize, demonstrate, and teach back instruction, to be achieved by 03/26/2024. PT Orthopedic Condition No Demonstrate understanding of education Description: Patient and/or caregiver will understand educational instruction to be achieved by 03/26/2024. PT Learning Assessment No Interventions Intervention Associated Problem/Goal Status Variance Visit Notes Medication Education Description: Evaluate/instruct patient/caregiver on obtaining, storing, identifying and administering ordered medications as well as keeping accurate medication list in the home and adhereing to medication schedule Problem:Medication Education Goal:Patient/caregive r will demonstrate ability to obtain, store, identify and administer ordered medications, keep accurate medication list in home, and adhere to medication schedule Completed Caregiver instructed on importance of keeping accurate medication list in home. Risk of Sepsis Description: Patient is at risk for sepsis. Monitor closely for s/s of sepsis. Problem:Sepsis Goal:Patient/caregive r will be able to identify and report symptoms of sepsis Completed Instruct on the risks and measures to be taken to prevent skin breakdown Description: Patient's Salvador Score is: 17. A Salvador score <= to 18 indicates risk for skin breakdown. Problem:Risk for skin breakdown Goal:Manage risk for skin breakdown Completed patient and caregiver instructed on maintaining skin integrity including: The need for every 1-2 hour turns, position changes, and maintaining activity as tolerated and Elevating and protecting heels SPO2 Description: Notify Dr. Chakraborty if pulse ox is <92% at rest. Problem:Physician Specific Parameters Goal:Patient to maintain parameters within physician-specified ranges throughout certification period Completed Instruct on individual fall risk factors and strategies to prevent falls and injuries caused by falls. Problem:Risk for Falls Goal:Manage Risk for falls Completed PT: Patient and Caregiver instructed on Managing Impaired Functional Mobility: Use assistive device(s): front wheeled walker and wheelchair Instruct on pain and instruct on strategies to control pain Problem:Pain Goal:Manage Pain Completed patient instructed on techniques to control pain including Non-Pharmacological measures; positioning/elevation . Instruct on ongoing discharge plan Problem:Discharge Goal:Manage discharge planning Completed Ongoing Discharge plan: Discharge plan discussed with patient including frequency and duration for home PT and plan for transition to: caregiver assistance. Physical Therapy Therapeutic Exercises Problem:PT Impaired muscle performance and/or ROM Goal:Improved Muscle Performance and/or ROM Completed patient and caregiver instructed on strengthening exercises including ankle pumps, qad an glut sets, hip abd and add, heel slides(no pressure on heel), seated faq , hip flexion and heel raises x's 10 each with visual, written and verbal cues for correct form. patient and caregiver instructed to perform home exercise program daily which included above ex. Physical Therapy Gait Training Problem:PT Impaired gait Goal:Improved Gait Completed Gait training and instruction to patient on safe ambulation with front wheeled walker for x's 50 feet with stand by assist, with verbal cues for corrections of gait deviations including staying closer to ww. Physical Therapy Balance Training Problem:PT Impaired balance Goal:Improved Balance Completed Developed, implemented, and instructed patient on standing balance exercises including static standing w/ ww x's 1min. Instruct on orthopedic precautions and weight bearing restrictions Description: Weight bearing restrictions include: WBAT of involved extremity. Problem:PT Orthopedic Condition Goal:Manage Orthopedic Condition Completed patient and caregiver instructed on orthopedic precautions. Instruct on self-management of post surgical and/or non-surgical orthopedic intervention Problem:PT Orthopedic Condition Goal:Manage Orthopedic Condition Completed patient and caregiver instructed on signs and symptoms of infection, signs and symptoms of DVT/PE, instructed on when to call provider and instructed on when to call 911. Instruct and educate on knowledge deficits Problem:PT Learning Assessment Goal:Demonstrate understanding of education Completed patient and caregiver verbalize and/or demonstrate understanding of physical therapy education including home exercise program. Education methods include: verbal cues, written instructions and visual cues. Further education required to improve knowledge and compliance with home exercise program. [facility] Visit Details Visit Type -OT ROUTINE Discipline -Occupational Therapy Problems Problem Description Start Date Status Goals Interve ntions Physician Specific Parameters Disciplines: Skilled Services 02/23/2024 Active 1 goal linked to scheduled/document ed intervention 1 goal intervention scheduled/documente d in this visit Pain Disciplines: Skilled Services 02/23/2024 Active 1 goal linked to scheduled/document ed intervention 1 goal intervention scheduled/documente d in this visit Discharge Disciplines: Skilled Services 02/23/2024 Active 1 goal linked to scheduled/document ed intervention 1 goal intervention scheduled/documente d in this visit OT Learning Assessment Disciplines: OT 02/25/2024 Active 1 goal linked to scheduled/document ed intervention 1 goal intervention scheduled/documente d in this visit OT Upper Body Strength and/or ROM Disciplines: OT 02/25/2024 Active 1 goal linked to scheduled/document ed intervention 1 goal intervention scheduled/documente d in this visit OT Functional Transfers Disciplines: OT 02/25/2024 Active 1 goal linked to scheduled/document ed intervention 1 goal intervention scheduled/documente d in this visit OT Balance Disciplines: OT 02/25/2024 Active 1 goal linked to scheduled/document ed intervention 1 goal intervention scheduled/documente d in this visit Goals Goal Associated Problem Outcome Goal Met? Visit Notes Patient to maintain parameters within physician-specified ranges throughout certification period Physician Specific Parameters No Manage Pain Description: Patient/caregiver will verbalize knowledge and understanding of appropriate techniques to control pain, including pain medication and non-pharmacological techniques. Patient will verbalize or demonstrate an acceptable level of pain as evidenced by a pain score of <3/10 and improvement in ability to perform activities of daily living to be achieved by 04/22/2024. Pain No Manage discharge planning Description: Patient/caregiver will verbalize understanding of ongoing discharge plan provided related to disease management, arrangements for outpatient and/or community services, obtaining medications, supplies, and DME, as needed throughout certification period. Discharge No Demonstrate understanding of education Description: Patient and/or caregiver will understand educational instruction to be achieved by 03/19/24. OT Learning Assessment No Improved Strength and/or ROM Description: patient will verbalize/demonstrate independence with home exercise program, to improve functional performance, to be achieved by 03/19/24. OT Upper Body Strength and/or ROM No Improved Functional Transfers Description: patient will demonstrate safe transfers to/from toilet indep and shower/tub with superv assistance and minimal verbal cues with use of DME to be achieved by 03/19/24. OT Functional Transfers No Improved Balance Description: Patient will demonstrate improved standing balance to meet functional goals as evidenced by fair+ and tolerance x 4 min during ue functional activity to be achieved by 03/19/24. OT Balance No Interventions Intervention Associated Problem/Goal Status Variance Visit Notes SPO2 Description: Notify Dr. Chakraborty if pulse ox is <92% at rest. Problem:Physician Specific Parameters Goal:Patient to maintain parameters within physician-specified ranges throughout certification period Completed Instruct on pain and instruct on strategies to control pain Problem:Pain Goal:Manage Pain Completed patient instructed on techniques to control pain including Pharmacological measures and Non-Pharmacological measures; rest and positioning/elevation. Instruct on ongoing discharge plan Problem:Discharge Goal:Manage discharge planning Completed Ongoing Discharge plan: Discharge plan discussed with patient including frequency and duration for home OT and plan for transition to: caregiver assistance. Instruct and educate on knowledge deficits Problem:OT Learning Assessment Goal:Demonstrate understanding of education Completed Education methods include: verbal cues. Patient/Caregiver require further education to improve knowledge and compliance with fall prevention strategies, orthopedic condition management, pain management, home safety and home exercise program. Therapeutic Exercises Problem:OT Upper Body Strength and/or ROM Goal:Improved Strength and/or ROM Completed Instructed patient/caregiver on therapeutic exercise including: upper body exercises: shoulder flexion/extension, abduction/adduction, horizontal abduction/adduction, internal/external rotation, overhead and chest press, tricep press, elbow and wrist flexion/extension and forearm supination/pronation .Provided written and verbal cues for pacing and proper technique. Patient performed 1 set (s) of 10 reps this date. unilateral for all shoulder bialat for elbow to distal. Will need cues for initation and instruction by granddtr rest breaks between each exercise Instructed patient/caregiver for HEP to be performed 1 sets(s) of 10 reps, daily. HEP program developed, issued and reviewed. Transfer Training Problem:OT Functional Transfers Goal:Improved Functional Transfers Completed Instruct patient on safe transfers and proper techniques to perform to and from chair with superv assistance Balance Training Problem:OT Balance Goal:Improved Balance Completed Developed, implemented, and instructed patient on standing balance exercises pt stood with unilateral support during shoulder abd/add stood x 10 reps 1 min [facility] Visit Details Visit Type -SN DISC DC W VIS IT Discipline -Care Home Problems Problem Description Start Date Status Goals Interve ntions Medication Education Disciplines: Skilled Services 02/23/2024 Active 1 goal linked to scheduled/document ed intervention 1 goal intervention scheduled/document ed in this visit Sepsis Disciplines: Skilled Services 02/23/2024 Active 1 goal linked to scheduled/document ed intervention 1 goal intervention scheduled/document ed in this visit Risk for skin breakdown Disciplines: Skilled Services 02/23/2024 Resolved on 03/02/2024 1 goal linked to scheduled/document ed intervention 1 goal intervention scheduled/document ed in this visit Physician Specific Parameters Disciplines: Skilled Services 02/23/2024 Active 1 goal linked to scheduled/document ed intervention 1 goal intervention scheduled/document ed in this visit Risk for Falls Disciplines: Skilled Services 02/23/2024 Active 1 goal linked to scheduled/document ed intervention 1 goal intervention scheduled/document ed in this visit Pain Disciplines: Skilled Services 02/23/2024 Resolved on 03/02/2024 1 goal linked to scheduled/document ed intervention Nutrition/Hydr ation Disciplines: Skilled Services 02/23/2024 Resolved on 03/02/2024 1 goal linked to scheduled/document ed intervention 1 goal intervention scheduled/document ed in this visit Discharge Disciplines: Skilled Services 02/23/2024 Active 1 goal linked to scheduled/document ed intervention 1 goal intervention scheduled/document ed in this visit High Risk Medications Disciplines: Skilled Services 02/23/2024 Resolved on 03/02/2024 1 goal linked to scheduled/document ed intervention 1 goal intervention scheduled/document ed in this visit SN Integumentary/ Wounds Disciplines: SN 02/25/2024 Resolved on 03/02/2024 1 goal linked to scheduled/document ed intervention SN Learning Assessment Disciplines: SN 02/25/2024 Resolved on 03/02/2024 1 goal linked to scheduled/document ed intervention 1 goal intervention scheduled/document ed in this visit Goals Goal Associated Problem Outcome Goal Met? Visit Notes Patient/caregiver will demonstrate ability to obtain, store, identify and administer ordered medications, keep accurate medication list in home, and adhere to medication schedule Description: Patient/caregiver will demonstrate ability to obtain, store, identify and administer ordered medications, keep accurate medication list in home, and adhere to medication schedule by 04/22/2024. Medication Education In Progress No Patient/caregiver will be able to identify and report symptoms of sepsis Description: Patient/caregiver will be able to identify signs/symptoms of sepsis infection and will verbalize actions to take if suspected by 04/22/2024. Sepsis In Progress No Manage risk for skin breakdown Description: Patient/caregiver will verbalize and demonstrate understanding of the risks and measures to be taken to monitor and prevent skin breakdown by 04/22/2024. Risk for skin breakdown Completed Yes Patient to maintain parameters within physician-specified ranges throughout certification period Physician Specific Parameters In Progress No Manage Risk for falls Description: Patient/caregiver will verbalize knowledge of individualized fall prevention strategies by 04/22/2024. Risk for Falls In Progress No Manage Pain Description: Patient/caregiver will verbalize knowledge and understanding of appropriate techniques to control pain, including pain medication and non-pharmacological techniques. Patient will verbalize or demonstrate an acceptable level of pain as evidenced by a pain score of <3/10 and improvement in ability to perform activities of daily living to be achieved by 04/22/2024. Pain Completed Yes Manage Nutrition/Hydration Description: Patient/caregiver will verbalize/demonstrate knowledge of prescribed diet and/or healthy nutrition to be achieved by 04/22/2024. Nutrition/Hydration Completed Yes Manage discharge planning Description: Patient/caregiver will verbalize understanding of ongoing discharge plan provided related to disease management, arrangements for outpatient and/or community services, obtaining medications, supplies, and DME, as needed throughout certification period. Discharge No Patient/caregiver will teach back high risk medication side effect and precaution education Description: STG Patient/caregiver will verbalize understanding of high risk medication side effects and precautions to be achieved by 03/26/2024. LTG Patient/caregiver will continue to verbalize understanding of high risk medication side effects and precautions throughout certification period. High Risk Medications Completed Yes Patient/Caregiver will have improved healing and be free of signs and symptoms of complications Description: Patient/caregiver will verbalize management strategies to promote wound healing & prevent complications as evidenced by improved healing & no complications by 04/22/24. SN Integumentary/Wounds Completed Yes Demonstrate understanding of education Description: Patient and/or caregiver will verbalize understanding of educational instruction provided throughout certification period. SN Learning Assessment Completed Yes Interventions Intervention Associated Problem/Goal Status Variance Visit Notes Medication Education Description: Evaluate/instruct patient/caregiver on obtaining, storing, identifying and administering ordered medications as well as keeping accurate medication list in the home and adhereing to medication schedule Problem:Medication Education Goal:Patient/caregive r will demonstrate ability to obtain, store, identify and administer ordered medications, keep accurate medication list in home, and adhere to medication schedule Completed Patient and Caregiver instructed on adhering to medication schedule. Risk of Sepsis Description: Patient is at risk for sepsis. Monitor closely for s/s of sepsis. Problem:Sepsis Goal:Patient/caregive r will be able to identify and report symptoms of sepsis Completed Instruct on the risks and measures to be taken to prevent skin breakdown Description: Patient's Salvador Score is: 17. A Salvador score <= to 18 indicates risk for skin breakdown. Problem:Risk for skin breakdown Goal:Manage risk for skin breakdown Completed patient and caregiver instructed on maintaining skin integrity including: Elevating and protecting heels SPO2 Description: Notify Dr. Chakraborty if pulse ox is <92% at rest. Problem:Physician Specific Parameters Goal:Patient to maintain parameters within physician-specified ranges throughout certification period Completed Instruct on individual fall risk factors and strategies to prevent falls and injuries caused by falls. Problem:Risk for Falls Goal:Manage Risk for falls Completed SN: Patient and Caregiver instructed on Managing Impaired Functional Mobility: Caregiver to provide assist with: ADL/IADLs Define patient s appetite/hydration status and implement strategies to improve compliance with prescribed diet and/or healthy nutrition. Problem:Nutrition/Hyd ration Goal:Manage Nutrition/Hydration Completed reinforced patient and caregiver on implementing strategies to comply with healthy nutrition and adequate hydration Instruct on ongoing discharge plan Problem:Discharge Goal:Manage discharge planning Completed Ongoing Discharge plan: Discharge plan discussed with patient and caregiver including frequency and duration for home SN and plan for transition to: live independently at home without ongoing services. Antipsychotic- educated on high risk medication Problem:High Risk Medications Goal:Patient/caregive r will teach back high risk medication side effect and precaution education Completed patient educated on taking medication(s) as prescribed by provider. Do not stop medication or skip/alter doses without speaking with your provider. Discuss medication effectiveness or side effect concerns with your provider and home care team. There is a risk for weight gain and diabetes. Getting regular checkups and medical care as well as eating a nutritious diet, exercising regularly and getting enough sleep can help reduce this side effect. Other common side effects are dry mouth, dizziness, blurred vision, agitation or sedation (feeling tired or wired). Monitor for involuntary muscle movements such as tremors, muscle stiffness, or tics and report these to your prescribing provider. Seek emergency treatment if you develop seizures or a fever, muscle stiffness and delirium as this could be a sign of a rare but serious side effect. Instruct and educate on knowledge deficits Problem:SN Learning Assessment Goal:Demonstrate understanding of education Completed patient and caregiver verbalize and/or demonstrate understanding of nursing education completed today. Education methods include: verbal cues. Further education required to improve knowledge and compliance with cancer care management, fall prevention/home safety strategies, integumentary care management, medication management and surgical care precautions. documented in this encounter [facility] Plan of care note* Visit Details Visit Type -[employer]CHE[employer] ROUTINE Discipline -Physical Therapy Problems Problem Description Start Date Status Goals Interve ntions Sepsis Disciplines: Skilled Services 02/23/2024 Active 1 goal linked to scheduled/documen gracia intervention 1 goal intervention scheduled/document ed in this visit Physician Specific Parameters Disciplines: Skilled Services 02/23/2024 Active 1 goal linked to scheduled/documen gracia intervention 1 goal intervention scheduled/document ed in this visit Risk for Falls Disciplines: Skilled Services 02/23/2024 Active 1 goal linked to scheduled/documen gracia intervention 1 goal intervention scheduled/document ed in this visit PT Impaired muscle performance and/or ROM Disciplines: PT 02/23/2024 Active 1 goal linked to scheduled/documen gracia intervention 1 goal intervention scheduled/document ed in this visit PT Impaired gait Disciplines: PT 02/23/2024 Active 1 goal linked to scheduled/documen gracia intervention 1 goal intervention scheduled/document ed in this visit PT Impaired balance Disciplines: PT 02/23/2024 Active 1 goal linked to scheduled/documen gracia intervention 1 goal intervention scheduled/document ed in this visit PT Orthopedic Condition Disciplines: PT 02/23/2024 Active 1 goal linked to scheduled/documen gracia intervention 2 goal interventions scheduled/document ed in this visit PT Learning Assessment Disciplines: PT 02/23/2024 Active 1 goal linked to scheduled/documen gracia intervention 1 goal intervention scheduled/document ed in this visit PT Cardiovascular Disease Disciplines: PT 02/23/2024 Active 1 goal linked to scheduled/documen gracia intervention 1 goal intervention scheduled/document ed in this visit Goals Goal Associated Problem Outcome Goal Met? Visit Notes Patient/caregiver will be able to identify and report symptoms of sepsis Description: Patient/caregiver will be able to identify signs/symptoms of sepsis infection and will verbalize actions to take if suspected by 04/22/2024. Sepsis No Patient to maintain parameters within physician-specified ranges throughout certification period Physician Specific Parameters No Manage Risk for falls Description: Patient/caregiver will verbalize knowledge of individualized fall prevention strategies by 04/22/2024. Risk for Falls No Improved Muscle Performance and/or ROM Description: LTG: Patient and/or caregiver will verbalize/demonstrate independence with home exercise program, to improve functional mobility, to be achieved by 03/26/2024. PT Impaired muscle performance and/or ROM No Improved Gait Description: STG: Patient will demonstrate improved gait ability as evidenced by ambulation >75 feet with front wheeled walker with supervision, in order to improve household mobility, to be achieved by 03/12/2024. LTG: Patient will demonstrate improved gait ability as evidenced by ambulation >150 feet with least restrictive device independently, to return to safe community ambulation, in order to return to prior level of function, to be achieved by 03/26/2024. PT Impaired gait No Improved Balance Description: LTG: Patient will demonstrate improved standing balance to meet functional goals as evidenced by 4 stage balance score of stage 3 for 10 seconds to be achieved by 03/26/2024. LTG: Patient will demonstrate improved standing balance to meet functional goals as evidenced by TUG score of <50 seconds to be achieved by 03/26/2024. PT Impaired balance No Manage Orthopedic Condition Description: Improve patient and/or caregiver understanding of post surgical and/or non-surgical orthopedic intervention management as evidenced by patient and/or caregiver able to verbalize, demonstrate, and teach back instruction, to be achieved by 03/26/2024. PT Orthopedic Condition No Demonstrate understanding of education Description: Patient and/or caregiver will understand educational instruction to be achieved by 03/26/2024. PT Learning Assessment No Manage Secondary Cardiovascular disease Description: Improve patient and/or caregiver understanding of secondary cardiovascular disease management as evidenced by patient and/or caregiver able to verbalize, demonstrate, and teach back instruction, to be achieved by 03/26/2024. PT Cardiovascular Disease No Interventions Intervention Associated Problem/Goal Status Variance Visit Notes Risk of Sepsis Description: Patient is at risk for sepsis. Monitor closely for s/s of sepsis. Problem:Sepsis Goal:Patient/caregiver will be able to identify and report symptoms of sepsis Completed SPO2 Description: Notify Dr. Chakraborty if pulse ox is <92% at rest. Problem:Physician Specific Parameters Goal:Patient to maintain parameters within physician-specified ranges throughout certification period Completed Instruct on individual fall risk factors and strategies to prevent falls and injuries caused by falls. Problem:Risk for Falls Goal:Manage Risk for falls Completed PT: Patient and Caregiver instructed on Eliminating Environmental Hazards: Keep pathways clear Physical Therapy Therapeutic Exercises Problem:PT Impaired muscle performance and/or ROM Goal:Improved Muscle Performance and/or ROM Completed patient and caregiver instructed on strengthening exercises including supine ankle pumps, quad and glut sets, hip abd and add, heel slides(heel up so no friction on heel) seated faq, hip flexion x's 10 each. standng heel raises, hip abd and hams curl x's 10 each with visual and verbal cues for posture and form. patient and caregiver instructed to perform home exercise program twice a day which included seated and supine ex and to have PT/ORCHESTRA [employer]ICIAN present for standing exercises. Physical Therapy Gait Training Problem:PT Impaired gait Goal:Improved Gait Completed Gait training and instruction to patient on safe ambulation with front wheeled walker for 2x's10 and xs 40 feet with stand by assist, with verbal cues for corrections of gait deviations including posture and pace. Physical Therapy Balance Training Problem:PT Impaired balance Goal:Improved Balance Completed Developed, implemented, and instructed patient on standing balance exercises including standing exercises at sink w/ George UE support. Instruct on orthopedic precautions and weight bearing restrictions Description: Weight bearing restrictions include: WBAT of involved extremity. Problem:PT Orthopedic Condition Goal:Manage Orthopedic Condition Completed patient and caregiver instructed on orthopedic precautions. Instruct on self-management of post surgical and/or non-surgical orthopedic intervention Problem:PT Orthopedic Condition Goal:Manage Orthopedic Condition Completed patient and caregiver instructed on signs and symptoms of infection, signs and symptoms of DVT/PE, instructed on when to call provider and instructed on when to call 911. Instruct and educate on knowledge deficits Problem:PT Learning Assessment Goal:Demonstrate understanding of education Completed patient and caregiver verbalize and/or demonstrate understanding of physical therapy education including home exercise program. Education methods include: verbal cues and visual cues. Further education required to improve knowledge and compliance with home exercise program. Instruct on signs, symptoms, and management of secondary cardiovascular disease Problem:PT Cardiovascular Disease Goal:Manage Secondary Cardiovascular disease Completed Instructed patient and caregiver on blood pressure tracking. [facility] Visit Details Visit Type -[employer] ROUTINE Discipline -Physical Therapy Problems Problem Description Start Date Status Goals Interve ntions Medication Education Disciplines: Skilled Services 02/23/2024 Active 1 goal linked to scheduled/document ed intervention 1 goal intervention scheduled/document ed in this visit Sepsis Disciplines: Skilled Services 02/23/2024 Active 1 goal linked to scheduled/document ed intervention 1 goal intervention scheduled/document ed in this visit Physician Specific Parameters Disciplines: Skilled Services 02/23/2024 Active 1 goal linked to scheduled/document ed intervention 1 goal intervention scheduled/document ed in this visit Risk for Falls Disciplines: Skilled Services 02/23/2024 Active 1 goal linked to scheduled/document ed intervention 1 goal intervention scheduled/document ed in this visit Discharge Disciplines: Skilled Services 02/23/2024 Active 1 goal linked to scheduled/document ed intervention 1 goal intervention scheduled/document ed in this visit PT Impaired muscle performance and/or ROM Disciplines: PT 02/23/2024 Active 1 goal linked to scheduled/document ed intervention 1 goal intervention scheduled/document ed in this visit PT Impaired gait Disciplines: PT 02/23/2024 Active 1 goal linked to scheduled/document ed intervention 1 goal intervention scheduled/document ed in this visit PT Orthopedic Condition Disciplines: PT 02/23/2024 Active 1 goal linked to scheduled/document ed intervention 2 goal interventions scheduled/document ed in this visit PT Learning Assessment Disciplines: PT 02/23/2024 Active 1 goal linked to scheduled/document ed intervention 1 goal intervention scheduled/document ed in this visit Goals Goal Associated Problem Outcome Goal Met? Visit Notes Patient/caregiver will demonstrate ability to obtain, store, identify and administer ordered medications, keep accurate medication list in home, and adhere to medication schedule Description: Patient/caregiver will demonstrate ability to obtain, store, identify and administer ordered medications, keep accurate medication list in home, and adhere to medication schedule by 04/22/2024. Medication Education No Patient/caregiver will be able to identify and report symptoms of sepsis Description: Patient/caregiver will be able to identify signs/symptoms of sepsis infection and will verbalize actions to take if suspected by 04/22/2024. Sepsis No Patient to maintain parameters within physician-specified ranges throughout certification period Physician Specific Parameters No Manage Risk for falls Description: Patient/caregiver will verbalize knowledge of individualized fall prevention strategies by 04/22/2024. Risk for Falls No Manage discharge planning Description: Patient/caregiver will verbalize understanding of ongoing discharge plan provided related to disease management, arrangements for outpatient and/or community services, obtaining medications, supplies, and DME, as needed throughout certification period. Discharge No Improved Muscle Performance and/or ROM Description: LTG: Patient and/or caregiver will verbalize/demonstrate independence with home exercise program, to improve functional mobility, to be achieved by 03/26/2024. PT Impaired muscle performance and/or ROM No Improved Gait Description: STG: Patient will demonstrate improved gait ability as evidenced by ambulation >75 feet with front wheeled walker with supervision, in order to improve household mobility, to be achieved by 03/12/2024. LTG: Patient will demonstrate improved gait ability as evidenced by ambulation >150 feet with least restrictive device independently, to return to safe community ambulation, in order to return to prior level of function, to be achieved by 03/26/2024. PT Impaired gait No Manage Orthopedic Condition Description: Improve patient and/or caregiver understanding of post surgical and/or non-surgical orthopedic intervention management as evidenced by patient and/or caregiver able to verbalize, demonstrate, and teach back instruction, to be achieved by 03/26/2024. PT Orthopedic Condition No Demonstrate understanding of education Description: Patient and/or caregiver will understand educational instruction to be achieved by 03/26/2024. PT Learning Assessment No Interventions Intervention Associated Problem/Goal Status Variance Visit Notes Medication Education Description: Evaluate/instruct patient/caregiver on obtaining, storing, identifying and administering ordered medications as well as keeping accurate medication list in the home and adhereing to medication schedule Problem:Medication Education Goal:Patient/caregive r will demonstrate ability to obtain, store, identify and administer ordered medications, keep accurate medication list in home, and adhere to medication schedule Completed caregiver instructed on importance of keeping accurate medication list in home. Risk of Sepsis Description: Patient is at risk for sepsis. Monitor closely for s/s of sepsis. Problem:Sepsis Goal:Patient/caregive r will be able to identify and report symptoms of sepsis Completed SPO2 Description: Notify Dr. Chakraborty if pulse ox is <92% at rest. Problem:Physician Specific Parameters Goal:Patient to maintain parameters within physician-specified ranges throughout certification period Completed Instruct on individual fall risk factors and strategies to prevent falls and injuries caused by falls. Problem:Risk for Falls Goal:Manage Risk for falls Completed PT: Patient instructed on Managing Impaired Functional Mobility: Use assistive device(s): front wheeled walker and wheelchair and Caregiver to provide assist with: Ambulation Instruct on ongoing discharge plan Problem:Discharge Goal:Manage discharge planning Completed Ongoing Discharge plan: Discharge plan discussed with patient and caregiver including frequency and duration for home PT and plan for transition to: caregiver assistance. Physical Therapy Therapeutic Exercises Problem:PT Impaired muscle performance and/or ROM Goal:Improved Muscle Performance and/or ROM Completed patient and caregiver instructed on strengthening exercises including supine quad and glut sets, hip abd and heel slides, heel up) seated faq and hip flexion, standing heel toe raises, hip abd and hams curls x's 10 eachwith tactile, visual and verbal cues for posture and pace. patient instructed to perform home exercise program twice a day which included above ex. Physical Therapy Gait Training Problem:PT Impaired gait Goal:Improved Gait Completed Gait training and instruction to patient and caregiver on safe ambulation with front wheeled walker for 75 feet including ramp with contact guard assist, with verbal cues for corrections of gait deviations including posture, pace and rest when fatigued . Instruct on orthopedic precautions and weight bearing restrictions Description: Weight bearing restrictions include: WBAT of involved extremity. Problem:PT Orthopedic Condition Goal:Manage Orthopedic Condition Completed patient and caregiver instructed on orthopedic precautions. Instruct on self-management of post surgical and/or non-surgical orthopedic intervention Problem:PT Orthopedic Condition Goal:Manage Orthopedic Condition Completed patient and caregiver instructed on managagement of orthopedic condition. Instruct and educate on knowledge deficits Problem:PT Learning Assessment Goal:Demonstrate understanding of education Completed patient and caregiver verbalize and/or demonstrate understanding of physical therapy education including home exercise program. Education methods include: verbal cues, tactile cues and visual cues. Further education required to improve knowledge and compliance with home exercise program. [facility] Visit Details Visit Type -OT ROUTINE Discipline -Occupational Therapy Problems Problem Description Start Date Status Goals Interve ntions Physician Specific Parameters Disciplines: Skilled Services 02/23/2024 Active 1 goal linked to scheduled/document ed intervention 1 goal intervention scheduled/documente d in this visit OT Learning Assessment Disciplines: OT 02/25/2024 Active 1 goal linked to scheduled/document ed intervention 1 goal intervention scheduled/documente d in this visit OT Upper Body Strength and/or ROM Disciplines: OT 02/25/2024 Active 1 goal linked to scheduled/document ed intervention 1 goal intervention scheduled/documente d in this visit OT Functional Transfers Disciplines: OT 02/25/2024 Active 1 goal linked to scheduled/document ed intervention 1 goal intervention scheduled/documente d in this visit OT Balance Disciplines: OT 02/25/2024 Active 1 goal linked to scheduled/document ed intervention 1 goal intervention scheduled/documente d in this visit Goals Goal Associated Problem Outcome Goal Met? Visit Notes Patient to maintain parameters within physician-specified ranges throughout certification period Physician Specific Parameters No Demonstrate understanding of education Description: Patient and/or caregiver will understand educational instruction to be achieved by 03/19/24. OT Learning Assessment No Improved Strength and/or ROM Description: patient will verbalize/demonstrate independence with home exercise program, to improve functional performance, to be achieved by 03/19/24. OT Upper Body Strength and/or ROM No Improved Functional Transfers Description: patient will demonstrate safe transfers to/from toilet indep and shower/tub with superv assistance and minimal verbal cues with use of DME to be achieved by 03/19/24. OT Functional Transfers No Improved Balance Description: Patient will demonstrate improved standing balance to meet functional goals as evidenced by fair+ and tolerance x 4 min during ue functional activity to be achieved by 03/19/24. OT Balance No Interventions Intervention Associated Problem/Goal Status Variance Visit Notes SPO2 Description: Notify Dr. Chakraborty if pulse ox is <92% at rest. Problem:Physician Specific Parameters Goal:Patient to maintain parameters within physician-specified ranges throughout certification period Completed Instruct and educate on knowledge deficits Problem:OT Learning Assessment Goal:Demonstrate understanding of education Completed Education methods include: verbal cues. Patient/Caregiver require further education to improve knowledge and compliance with fall prevention strategies, pain management, home safety and home exercise program. Therapeutic Exercises Problem:OT Upper Body Strength and/or ROM Goal:Improved Strength and/or ROM Completed Instructed patient/caregiver on therapeutic exercise including: upper body exercises: shoulder flexion/extension, abduction/adduction, horizontal abduction/adduction, internal/external rotation, overhead and chest press, tricep press, elbow and wrist flexion/extension and forearm supination/pronation .Provided verbal cues for pacing and proper technique. Patient requires rest breaks. Instructed patient/caregiver for HEP to be performed 1 sets(s) of 10 reps, daily. HEP program reviewed. Transfer Training Problem:OT Functional Transfers Goal:Improved Functional Transfers Completed Instruct patient on safe transfers and proper techniques to perform to and from toilet with superv assistance for safety, declines shower transfers this date Balance Training Problem:OT Balance Goal:Improved Balance Completed Developed, implemented, and instructed patient on standing balance pt standing during ue hep 1x 5:30 with sba 1x 3:30 sba unilateral support on walker documented in this encounter [facility] Plan of care note* Visit Details Visit Type -[employer] ROUTINE Discipline -Physical Therapy Problems Problem Description Start Date Status Goals Interve ntions Medication Education Disciplines: Skilled Services 02/23/2024 Active 1 goal linked to scheduled/documen gracia intervention 1 goal intervention scheduled/document ed in this visit Sepsis Disciplines: Skilled Services 02/23/2024 Active 1 goal linked to scheduled/documen gracia intervention 1 goal intervention scheduled/document ed in this visit Physician Specific Parameters Disciplines: Skilled Services 02/23/2024 Active 1 goal linked to scheduled/documen gracia intervention 1 goal intervention scheduled/document ed in this visit Risk for Falls Disciplines: Skilled Services 02/23/2024 Active 1 goal linked to scheduled/documen gracia intervention 1 goal intervention scheduled/document ed in this visit Discharge Disciplines: Skilled Services 02/23/2024 Active 1 goal linked to scheduled/documen gracia intervention 1 goal intervention scheduled/document ed in this visit PT Impaired muscle performance and/or ROM Disciplines: PT 02/23/2024 Active 1 goal linked to scheduled/documen gracia intervention 1 goal intervention scheduled/document ed in this visit PT Impaired mobility Disciplines: PT 02/23/2024 Active 1 goal linked to scheduled/documen gracia intervention 1 goal intervention scheduled/document ed in this visit PT Impaired gait Disciplines: PT 02/23/2024 Active 1 goal linked to scheduled/documen gracia intervention 1 goal intervention scheduled/document ed in this visit PT Impaired balance Disciplines: PT 02/23/2024 Active 1 goal linked to scheduled/documen gracia intervention 1 goal intervention scheduled/document ed in this visit PT Orthopedic Condition Disciplines: PT 02/23/2024 Active 1 goal linked to scheduled/documen gracia intervention 1 goal intervention scheduled/document ed in this visit PT Learning Assessment Disciplines: PT 02/23/2024 Active 1 goal linked to scheduled/documen gracia intervention 1 goal intervention scheduled/document ed in this visit PT Cardiovascular Disease Disciplines: PT 02/23/2024 Active 1 goal linked to scheduled/documen gracia intervention 1 goal intervention scheduled/document ed in this visit Goals Goal Associated Problem Outcome Goal Met? Visit Notes Patient/caregiver will demonstrate ability to obtain, store, identify and administer ordered medications, keep accurate medication list in home, and adhere to medication schedule Description: Patient/caregiver will demonstrate ability to obtain, store, identify and administer ordered medications, keep accurate medication list in home, and adhere to medication schedule by 04/22/2024. Medication Education No Patient/caregiver will be able to identify and report symptoms of sepsis Description: Patient/caregiver will be able to identify signs/symptoms of sepsis infection and will verbalize actions to take if suspected by 04/22/2024. Sepsis No Patient to maintain parameters within physician-specified ranges throughout certification period Physician Specific Parameters No Manage Risk for falls Description: Patient/caregiver will verbalize knowledge of individualized fall prevention strategies by 04/22/2024. Risk for Falls No Manage discharge planning Description: Patient/caregiver will verbalize understanding of ongoing discharge plan provided related to disease management, arrangements for outpatient and/or community services, obtaining medications, supplies, and DME, as needed throughout certification period. Discharge No Improved Muscle Performance and/or ROM Description: LTG: Patient and/or caregiver will verbalize/demonstrate independence with home exercise program, to improve functional mobility, to be achieved by 03/26/2024. PT Impaired muscle performance and/or ROM No Improved Transfers Description: STG: Patient will demonstrate safe transfers to/from bed, chair and couch with supervision, to be achieved by 03/12/2024. LTG: Patient will demonstrate safe transfers to/from toilet, shower/tub and car independently with AD, to be achieved by 03/26/2024. PT Impaired mobility No Improved Gait Description: STG: Patient will demonstrate improved gait ability as evidenced by ambulation >75 feet with front wheeled walker with supervision, in order to improve household mobility, to be achieved by 03/12/2024. LTG: Patient will demonstrate improved gait ability as evidenced by ambulation >150 feet with least restrictive device independently, to return to safe community ambulation, in order to return to prior level of function, to be achieved by 03/26/2024. PT Impaired gait No Improved Balance Description: LTG: Patient will demonstrate improved standing balance to meet functional goals as evidenced by 4 stage balance score of stage 3 for 10 seconds to be achieved by 03/26/2024. LTG: Patient will demonstrate improved standing balance to meet functional goals as evidenced by TUG score of <50 seconds to be achieved by 03/26/2024. PT Impaired balance No Manage Orthopedic Condition Description: Improve patient and/or caregiver understanding of post surgical and/or non-surgical orthopedic intervention management as evidenced by patient and/or caregiver able to verbalize, demonstrate, and teach back instruction, to be achieved by 03/26/2024. PT Orthopedic Condition No Demonstrate understanding of education Description: Patient and/or caregiver will understand educational instruction to be achieved by 03/26/2024. PT Learning Assessment No Manage Secondary Cardiovascular disease Description: Improve patient and/or caregiver understanding of secondary cardiovascular disease management as evidenced by patient and/or caregiver able to verbalize, demonstrate, and teach back instruction, to be achieved by 03/26/2024. PT Cardiovascular Disease No Interventions Intervention Associated Problem/Goal Status Variance Visit Notes Medication Education Description: Evaluate/instruct patient/caregiver on obtaining, storing, identifying and administering ordered medications as well as keeping accurate medication list in the home and adhereing to medication schedule Problem:Medication Education Goal:Patient/caregiver will demonstrate ability to obtain, store, identify and administer ordered medications, keep accurate medication list in home, and adhere to medication schedule Completed Patient instructed on importance of keeping accurate medication list in home. Risk of Sepsis Description: Patient is at risk for sepsis. Monitor closely for s/s of sepsis. Problem:Sepsis Goal:Patient/caregiver will be able to identify and report symptoms of sepsis Completed SPO2 Description: Notify Dr. Chakraborty if pulse ox is <92% at rest. Problem:Physician Specific Parameters Goal:Patient to maintain parameters within physician-specified ranges throughout certification period Completed Instruct on individual fall risk factors and strategies to prevent falls and injuries caused by falls. Problem:Risk for Falls Goal:Manage Risk for falls Completed PT: Patient and Caregiver instructed on Managing Impaired Functional Mobility: Use assistive device(s): front wheeled walker Instruct on ongoing discharge plan Problem:Discharge Goal:Manage discharge planning Completed Ongoing Discharge plan: Discharge plan discussed with patient and caregiver including frequency and duration for home PT and plan for transition to: caregiver assistance. Physical Therapy Therapeutic Exercises Problem:PT Impaired muscle performance and/or ROM Goal:Improved Muscle Performance and/or ROM Completed patient instructed on strengthening exercises including standing heel raises, hip abd and flexion, has curls and 1/4 squats x's 10 each w/ seated rest breaks as needed. with visual and verbal cues for form and pace. patient instructed to perform home exercise program twice a day which included seated and standing ex. Physical Therapy Transfer Training Problem:PT Impaired mobility Goal:Improved Transfers Completed Transfer training and instruction to patient on safe transfers to and from chair with stand by assist and contact guard assist and tactile and verbal cues for anterior weight shifting. Physical Therapy Gait Training Problem:PT Impaired gait Goal:Improved Gait Completed Gait training and instruction to patient on safe ambulation with front wheeled walker for x's 20 and x's50 feet with supervision, with verbal cues for corrections of gait deviations including posture and increased step height. Physical Therapy Balance Training Problem:PT Impaired balance Goal:Improved Balance Completed Developed, implemented, and instructed patient on standing balance exercises including lateral stepping at counter, unsupported standing w/ perturbations. Instruct on orthopedic precautions and weight bearing restrictions Description: Weight bearing restrictions include: WBAT of involved extremity. Problem:PT Orthopedic Condition Goal:Manage Orthopedic Condition Completed patient instructed on orthopedic precautions. Instruct and educate on knowledge deficits Problem:PT Learning Assessment Goal:Demonstrate understanding of education Completed patient verbalize and/or demonstrate understanding of physical therapy education including home exercise program. Education methods include: verbal cues and visual cues. Further education required to improve knowledge and compliance with home exercise program. Instruct on signs, symptoms, and management of secondary cardiovascular disease Problem:PT Cardiovascular Disease Goal:Manage Secondary Cardiovascular disease Completed Instructed patient on instructed on when to call provider. [facility] Visit Details Visit Type -OT DISC DC W VIS IT Discipline -Occupational Therapy Problems Problem Description Start Date Status Goals Interve ntions Physician Specific Parameters Disciplines: Skilled Services 02/23/2024 Active 1 goal linked to scheduled/document ed intervention 1 goal intervention scheduled/documente d in this visit Discharge Disciplines: Skilled Services 02/23/2024 Active 1 goal linked to scheduled/document ed intervention 1 goal intervention scheduled/documente d in this visit OT Balance Disciplines: OT 02/25/2024 Active 1 goal linked to scheduled/document ed intervention 1 goal intervention scheduled/documente d in this visit Goals Goal Associated Problem Outcome Goal Met? Visit Notes Patient to maintain parameters within physician-specified ranges throughout certification period Physician Specific Parameters No Manage discharge planning Description: Patient/caregiver will verbalize understanding of ongoing discharge plan provided related to disease management, arrangements for outpatient and/or community services, obtaining medications, supplies, and DME, as needed throughout certification period. Discharge No Improved Balance Description: Patient will demonstrate improved standing balance to meet functional goals as evidenced by fair+ and tolerance x 4 min during ue functional activity to be achieved by 03/19/24. OT Balance No Interventions Intervention Associated Problem/Goal Status Variance Visit Notes SPO2 Description: Notify Dr. Chakraborty if pulse ox is <92% at rest. Problem:Physician Specific Parameters Goal:Patient to maintain parameters within physician-specified ranges throughout certification period Completed Instruct on final discharge plan and deliver discharge instructions Problem:Discharge Goal:Manage discharge planning Completed Delivered Discharge plan: Discharge plan discussed with patient and caregiver for plan for transition to: caregiver assistance Balance Training Problem:OT Balance Goal:Improved Balance Completed Developed, implemented, and instructed patient on standing balance pt tolerated 2 stands 1 x 7:30 and 1 x 6:30 during ue hep without suppport but with fww in front of patient. Pt completing during ue hep no lob and no c/o pain documented in this encounter [facility] Plan of care note* Visit Details Visit Type -[employer] ROUTINE Discipline -Physical Therapy Problems Problem Description Start Date Status Goals Interve ntions Physician Specific Parameters Disciplines: Skilled Services 02/23/2024 Active 1 goal linked to scheduled/document ed intervention 1 goal intervention scheduled/document ed in this visit Risk for Falls Disciplines: Skilled Services 02/23/2024 Active 1 goal linked to scheduled/document ed intervention 1 goal intervention scheduled/document ed in this visit PT Impaired muscle performance and/or ROM Disciplines: PT 02/23/2024 Active 1 goal linked to scheduled/document ed intervention 1 goal intervention scheduled/document ed in this visit PT Impaired mobility Disciplines: PT 02/23/2024 Active 1 goal linked to scheduled/document ed intervention 1 goal intervention scheduled/document ed in this visit PT Impaired gait Disciplines: PT 02/23/2024 Active 1 goal linked to scheduled/document ed intervention 1 goal intervention scheduled/document ed in this visit PT Learning Assessment Disciplines: PT 02/23/2024 Active 1 goal linked to scheduled/document ed intervention 1 goal intervention scheduled/document ed in this visit Goals Goal Associated Problem Outcome Goal Met? Visit Notes Patient to maintain parameters within physician-specified ranges throughout certification period Physician Specific Parameters No Manage Risk for falls Description: Patient/caregiver will verbalize knowledge of individualized fall prevention strategies by 04/22/2024. Risk for Falls No Improved Muscle Performance and/or ROM Description: LTG: Patient and/or caregiver will verbalize/demonstrate independence with home exercise program, to improve functional mobility, to be achieved by 03/26/2024. PT Impaired muscle performance and/or ROM No Improved Transfers Description: STG: Patient will demonstrate safe transfers to/from bed, chair and couch with supervision, to be achieved by 03/12/2024. LTG: Patient will demonstrate safe transfers to/from toilet, shower/tub and car independently with AD, to be achieved by 03/26/2024. PT Impaired mobility No Improved Gait Description: STG: Patient will demonstrate improved gait ability as evidenced by ambulation >75 feet with front wheeled walker with supervision, in order to improve household mobility, to be achieved by 03/12/2024. LTG: Patient will demonstrate improved gait ability as evidenced by ambulation >150 feet with least restrictive device independently, to return to safe community ambulation, in order to return to prior level of function, to be achieved by 03/26/2024. PT Impaired gait No Demonstrate understanding of education Description: Patient and/or caregiver will understand educational instruction to be achieved by 03/26/2024. PT Learning Assessment No Interventions Intervention Associated Problem/Goal Status Variance Visit Notes SPO2 Description: Notify Dr. Chakraborty if pulse ox is <92% at rest. Problem:Physician Specific Parameters Goal:Patient to maintain parameters within physician-specified ranges throughout certification period Completed Instruct on individual fall risk factors and strategies to prevent falls and injuries caused by falls. Problem:Risk for Falls Goal:Manage Risk for falls Completed PT: Patient instructed on Managing Impaired Functional Mobility: Use assistive device(s): front wheeled walker and Caregiver to provide assist with: Ambulation, Steps, Transfers and ADL/IADLs Managing Pain Physical Therapy Therapeutic Exercises Problem:PT Impaired muscle performance and/or ROM Goal:Improved Muscle Performance and/or ROM Completed patient instructed on strengthening exercises including: Bilat seated ex's x 10 reps/ 2 sets AROM: LAQ,hip abd/ add, and heel to toe. Standing marching in place and heel to toe Gt pattern. Vc's to slow down and to facilitate full ROM.. patient instructed to perform home exercise program twice a day which included: Above exercises. Physical Therapy Transfer Training Problem:PT Impaired mobility Goal:Improved Transfers Completed Transfer training and instruction to patient on safe transfers to and from chair with contact guard assist and tactile, visual and verbal ccues to facilitate trunk movement over her RIGOBERTO. Physical Therapy Gait Training Problem:PT Impaired gait Goal:Improved Gait Completed Gait training and instruction to patient on safe ambulation with front wheeled walker for 120 feet with stand by assist and contact guard assist, with visual and verbal cues for walker safety/ management and to facilitate upright posture. Instruct and educate on knowledge deficits Problem:PT Learning Assessment Goal:Demonstrate understanding of education Completed patient verbalize and/or demonstrate understanding of physical therapy education including orthopedic condition management, pain management, home safety, functional activity and home exercise program. Education methods include: verbal cues and visual cues. Further education required to improve knowledge and compliance with orthopedic condition management, pain management, fall prevention strategies, home safety, functional activity and home exercise program. documented in this encounter [facility] Plan of care note* Visit Details Visit Type -PT AGENCY REINA W Gurvinder VELARDE Discipline -Physical Therapy Problems Problem Description Start Date Status Goals Interve ntions Medication Education Disciplines: Skilled Services 02/23/2024 Resolved on 03/22/2024 1 goal linked to scheduled/documen gracia intervention 1 goal intervention 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 Sepsis Disciplines: Skilled Services 02/23/2024 Resolved on 03/22/2024 1 goal linked to scheduled/documen gracia intervention 1 goal intervention 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 Physician Specific Parameters Disciplines: Skilled Services 02/23/2024 Resolved on 03/22/2024 1 goal linked to scheduled/documen gracia intervention 1 goal intervention 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 Risk for Falls Disciplines: Skilled Services 02/23/2024 Resolved on 03/22/2024 1 goal linked to scheduled/documen gracia intervention 1 goal intervention 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 Discharge Disciplines: Skilled Services 02/23/2024 Resolved on 03/22/2024 1 goal linked to scheduled/documen gracia intervention 1 goal intervention 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 PT Impaired muscle performance and/or ROM Disciplines: PT 02/23/2024 Resolved on 03/22/2024 1 goal linked to scheduled/documen gracia intervention 1 goal intervention 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 PT Impaired mobility Disciplines: PT 02/23/2024 Resolved on 03/22/2024 2 goals linked to scheduled/documen gracia interventions 2 goal interventions 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 PT Impaired gait Disciplines: PT 02/23/2024 Resolved on 03/22/2024 1 goal linked to scheduled/documen gracia intervention 1 goal intervention 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 PT Impaired balance Disciplines: PT 02/23/2024 Resolved on 03/22/2024 1 goal linked to scheduled/documen gracia intervention 1 goal intervention 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 PT Orthopedic Condition Disciplines: PT 02/23/2024 Resolved on 03/22/2024 1 goal linked to scheduled/documen gracia intervention 1 goal intervention 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 PT Learning Assessment Disciplines: PT 02/23/2024 Resolved on 03/22/2024 1 goal linked to scheduled/documen gracia intervention 1 goal intervention 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 PT Cardiovascular Disease Disciplines: PT 02/23/2024 Resolved on 03/22/2024 1 goal linked to scheduled/documen gracia intervention 1 goal intervention 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 Cancer Disciplines: Skilled Services 02/23/2024 Resolved on 03/22/2024 1 goal linked to scheduled/documen gracia intervention Goals Goal Associated Problem Outcome Goal Met? Visit Notes Patient/caregiver will demonstrate ability to obtain, store, identify and administer ordered medications, keep accurate medication list in home, and adhere to medication schedule Description: Patient/caregiver will demonstrate ability to obtain, store, identify and administer ordered medications, keep accurate medication list in home, and adhere to medication schedule by 04/22/2024. Medication Education Completed Yes Patient/caregiver will be able to identify and report symptoms of sepsis Description: Patient/caregiver will be able to identify signs/symptoms of sepsis infection and will verbalize actions to take if suspected by 04/22/2024. Sepsis Completed Yes Patient to maintain parameters within physician-specified ranges throughout certification period Physician Specific Parameters Completed Yes Manage Risk for falls Description: Patient/caregiver will verbalize knowledge of individualized fall prevention strategies by 04/22/2024. Risk for Falls Completed Yes Manage discharge planning Description: Patient/caregiver will verbalize understanding of ongoing discharge plan provided related to disease management, arrangements for outpatient and/or community services, obtaining medications, supplies, and DME, as needed throughout certification period. Discharge Completed Yes Improved Muscle Performance and/or ROM Description: LTG: Patient and/or caregiver will verbalize/demonstrate independence with home exercise program, to improve functional mobility, to be achieved by 03/26/2024. PT Impaired muscle performance and/or ROM Completed Yes Improved Transfers Description: STG: Patient will demonstrate safe transfers to/from bed, chair and couch with supervision, to be achieved by 03/12/2024. LTG: Patient will demonstrate safe transfers to/from toilet, shower/tub and car independently with AD, to be achieved by 03/26/2024. PT Impaired mobility Completed Yes Improved Bed Mobility Description: STG: Patient will demonstrate improved bed mobility independently to be achieved by 03/12/2024. PT Impaired mobility Completed Yes Improved Gait Description: STG: Patient will demonstrate improved gait ability as evidenced by ambulation >75 feet with front wheeled walker with supervision, in order to improve household mobility, to be achieved by 03/12/2024. LTG: Patient will demonstrate improved gait ability as evidenced by ambulation >150 feet with least restrictive device independently, to return to safe community ambulation, in order to return to prior level of function, to be achieved by 03/26/2024. PT Impaired gait Completed Yes Improved Balance Description: LTG: Patient will demonstrate improved standing balance to meet functional goals as evidenced by 4 stage balance score of stage 3 for 10 seconds to be achieved by 03/26/2024. LTG: Patient will demonstrate improved standing balance to meet functional goals as evidenced by TUG score of <50 seconds to be achieved by 03/26/2024. PT Impaired balance Completed Yes Manage Orthopedic Condition Description: Improve patient and/or caregiver understanding of post surgical and/or non-surgical orthopedic intervention management as evidenced by patient and/or caregiver able to verbalize, demonstrate, and teach back instruction, to be achieved by 03/26/2024. PT Orthopedic Condition Completed Yes Demonstrate understanding of education Description: Patient and/or caregiver will understand educational instruction to be achieved by 03/26/2024. PT Learning Assessment Completed Yes Manage Secondary Cardiovascular disease Description: Improve patient and/or caregiver understanding of secondary cardiovascular disease management as evidenced by patient and/or caregiver able to verbalize, demonstrate, and teach back instruction, to be achieved by 03/26/2024. PT Cardiovascular Disease Completed Yes Improve symptom management of cancer and side effects of treatment Description: Patient/caregiver will verbalize understanding of cancer diagnosis, side effects of treatment, and management of symptoms by 04/22/2024. Cancer Completed Yes Interventions Intervention Associated Problem/Goal Status Variance Visit Notes Medication Education Description: Evaluate/instruct patient/caregiver on obtaining, storing, identifying and administering ordered medications as well as keeping accurate medication list in the home and adhereing to medication schedule Problem:Medication Education Goal:Patient/caregiver will demonstrate ability to obtain, store, identify and administer ordered medications, keep accurate medication list in home, and adhere to medication schedule Completed Patient instructed on importance of keeping accurate medication list in home, need to take up-to-date medication list to all medical provider appointments and adhering to medication schedule. Risk of Sepsis Description: Patient is at risk for sepsis. Monitor closely for s/s of sepsis. Problem:Sepsis Goal:Patient/caregiver will be able to identify and report symptoms of sepsis Completed SPO2 Description: Notify Dr. Chakraborty if pulse ox is <92% at rest. Problem:Physician Specific Parameters Goal:Patient to maintain parameters within physician-specified ranges throughout certification period Completed Instruct on individual fall risk factors and strategies to prevent falls and injuries caused by falls. Problem:Risk for Falls Goal:Manage Risk for falls Completed PT: Patient instructed on Eliminating Environmental Hazards: Keep pathways clear, Keep pets out of pathways, Remove unsafe rugs, Move furniture from pathways, Keep rooms and walkways well lit and Wear supportive shoes or non-skid socks Managing Impaired Functional Mobility: Use assistive device(s): rollator walker Managing Pain Instruct on final discharge plan and deliver discharge instructions Problem:Discharge Goal:Manage discharge planning Completed Delivered Discharge plan: Discharge plan discussed with patient for plan for transition to: caregiver assistance Physical Therapy Therapeutic Exercises Problem:PT Impaired muscle performance and/or ROM Goal:Improved Muscle Performance and/or ROM Completed patient instructed on strengthening exercises including: Bilat seated ex's x 10 reps/ 2 sets AROM: LAQ,hip abd/ add, and heel to toe. Standing marching in place and heel to toe Gt pattern. Vc's to slow down and to facilitate full ROM.. patient instructed to perform home exercise program twice a day which included: Above exercises. Physical Therapy Transfer Training Problem:PT Impaired mobility Goal:Improved Transfers Completed Transfer training and instruction to patient and caregiver on safe transfers to and from bed, chair and toilet with stand by assist and verbal cues for technique . Physical Therapy Bed Mobility Training Problem:PT Impaired mobility Goal:Improved Bed Mobility Completed Bed mobility training and instruction to caregiver, including rolling, supine<>sit and repositioning self with stand by assist and contact guard assist and verbal cues for technique Physical Therapy Gait Training Problem:PT Impaired gait Goal:Improved Gait Completed Gait training and instruction to patient on safe ambulation with front wheeled walker for 50 feet with stand by assist, with verbal cues for corrections of gait deviations including technique . Physical Therapy Balance Training Problem:PT Impaired balance Goal:Improved Balance Completed pt demonstrates improved dynamic standing balance as evidenced by a tug of 67 Instruct on self-management of post surgical and/or non-surgical orthopedic intervention Problem:PT Orthopedic Condition Goal:Manage Orthopedic Condition Completed patient instructed on managagement of orthopedic condition, eating foods with high protein, signs and symptoms of infection, signs and symptoms of DVT/PE and instructed on when to call provider. Instruct and educate on knowledge deficits Problem:PT Learning Assessment Goal:Demonstrate understanding of education Completed patient verbalize and/or demonstrate understanding of physical therapy education including orthopedic condition management, weight bearing precautions, surgical precautions, pain management, fall prevention strategies, home safety, functional activity and home exercise program. Education methods include: verbal cues. Instruct on signs, symptoms, and management of secondary cardiovascular disease Problem:PT Cardiovascular Disease Goal:Manage Secondary Cardiovascular disease Completed Instructed patient and caregiver on exercise and activity guidelines and instructed on when to call provider. [facility] Visit Details Visit Type -[employer] ROUTINE Discipline -Physical Therapy Problems Problem Description Start Date Status Goals Interve ntions Physician Specific Parameters Disciplines: Skilled Services 02/23/2024 Active 1 goal linked to scheduled/document ed intervention 1 goal intervention scheduled/document ed in this visit Risk for Falls Disciplines: Skilled Services 02/23/2024 Active 1 goal linked to scheduled/document ed intervention 1 goal intervention scheduled/document ed in this visit PT Impaired muscle performance and/or ROM Disciplines: PT 02/23/2024 Active 1 goal linked to scheduled/document ed intervention 1 goal intervention scheduled/document ed in this visit PT Impaired mobility Disciplines: PT 02/23/2024 Active 1 goal linked to scheduled/document ed intervention 1 goal intervention scheduled/document ed in this visit PT Impaired gait Disciplines: PT 02/23/2024 Active 1 goal linked to scheduled/document ed intervention 1 goal intervention scheduled/document ed in this visit Goals Goal Associated Problem Outcome Goal Met? Visit Notes Patient to maintain parameters within physician-specified ranges throughout certification period Physician Specific Parameters No Manage Risk for falls Description: Patient/caregiver will verbalize knowledge of individualized fall prevention strategies by 04/22/2024. Risk for Falls No Improved Muscle Performance and/or ROM Description: LTG: Patient and/or caregiver will verbalize/demonstrate independence with home exercise program, to improve functional mobility, to be achieved by 03/26/2024. PT Impaired muscle performance and/or ROM No Improved Transfers Description: STG: Patient will demonstrate safe transfers to/from bed, chair and couch with supervision, to be achieved by 03/12/2024. LTG: Patient will demonstrate safe transfers to/from toilet, shower/tub and car independently with AD, to be achieved by 03/26/2024. PT Impaired mobility No Improved Gait Description: STG: Patient will demonstrate improved gait ability as evidenced by ambulation >75 feet with front wheeled walker with supervision, in order to improve household mobility, to be achieved by 03/12/2024. LTG: Patient will demonstrate improved gait ability as evidenced by ambulation >150 feet with least restrictive device independently, to return to safe community ambulation, in order to return to prior level of function, to be achieved by 03/26/2024. PT Impaired gait No Interventions Intervention Associated Problem/Goal Status Variance Visit Notes SPO2 Description: Notify Dr. Chakraborty if pulse ox is <92% at rest. Problem:Physician Specific Parameters Goal:Patient to maintain parameters within physician-specified ranges throughout certification period Completed Instruct on individual fall risk factors and strategies to prevent falls and injuries caused by falls. Problem:Risk for Falls Goal:Manage Risk for falls Completed PT: Patient instructed on Managing Impaired Functional Mobility: Use assistive device(s): front wheeled walker and Caregiver to provide assist with: Ambulation, Steps, Transfers and ADL/IADLs Managing Pain Physical Therapy Therapeutic Exercises Problem:PT Impaired muscle performance and/or ROM Goal:Improved Muscle Performance and/or ROM Completed patient instructed on strengthening exercises including: Bilateral LE standing ex's at countertop: x 10 / 1 set ( Marching, hip abd, and heel to toe ). Bilat seated ex's x 10 reps/ 1 set AROM: Marching, LAQ,hip abd/ add, and heel to toe. Vc's to slow down and to facilitate full ROM. patient instructed to perform home exercise program twice a day which included: Above exercises. Physical Therapy Transfer Training Problem:PT Impaired mobility Goal:Improved Transfers Completed Transfer training and instruction to patient on safe transfers to and from chair with SBA and verbal cues to facilitate trunk movement over her RIGOBERTO. Physical Therapy Gait Training Problem:PT Impaired gait Goal:Improved Gait Completed Gait training and instruction to patient on safe ambulation with front wheeled walker for 80 feet down/ up metal ramp and on level/ slightly sloped concrete with CGA, with verbal cues to facilitate upright posture and for walker safety/ management. documented in this encounter [facility] for visit Narrative* [place] Prior Authorization (Routine) - Authorized Specialty Diagnoses / Procedures Referred By Lucia bravo Referred To Contact Diagnoses Cancer of breast, intraductal, left Malignant neoplasm of unspecified site of unspecified female breast Procedures INJECTION, [place] [address] [place] [address] Phone: tel: fax: Hematology/Oncology [phone] [address] Phone: tel: Referral ID Status Reason Start Date Expiration Date V isits Requested Visits Authorized [id number] Authorized 09/04/2020 10/04/2025 99 99 [facility] for visit Narrative* [place] Prior Authorization (Routine) - Authorized Specialty Diagnoses / Procedures Referred By Lucia bravo Referred To Contact Diagnoses Cancer of breast, intraductal, left Malignant neoplasm of unspecified site of unspecified female breast (HCC) Procedures INJECTION, [place] [address] [place] [address] Phone: tel: fax: Hematology/Oncology [phone] [address] Phone: tel: Referral ID Status Reason Start Date Expiration Date V isits Requested Visits Authorized [id number] Authorized 09/04/2020 10/04/2025 99 99 [facility] Summary Purpose Family History No Family History Records Found Relationship Condition Age at Onset Recorded Date/T gómez father Hypertension Unknown mother Alzheimer's disease Unknown Diabetes mellitus Unknown Hypertension Unknown Advance Directives No Advanced Directives Records FoundDocuments on File Type Date Recorded 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 Advance Directive(s) 06/18/2021 12:03 AM Advance Directive(s) 08/03/2020 6:50 PM Advance Directive(s) 12/31/2018 3:47 PM Advance Directive(s) 03/07/2018 11:28 PM Documents on File Type Date Recorded 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 Advance Directive(s) 06/18/2021 12:03 AM Advance Directive(s) 08/03/2020 6:50 PM Advance Directive(s) 12/31/2018 3:47 PM Advance Directive(s) 03/07/2018 11:28 PM Advance Directive Response Recorded Date/ Time Living Will Yes August 05 7:26pm Power of Returned Goods Sorter Yes August 05, 2022 7:26pm Name of Medical Power of Returned Goods Sorter ETZ SMITH August 05, 2022 7:26pm Advance Directive Response Recorded Date/ Time Living Will Yes August 05 6:26pm Power of Returned Goods Sorter Yes August 05, 2022 6:26pm Name of Medical Power of Returned Goods Sorter TEZ SMITH August 05, 2022 6:26pm Advance Directive Response Recorded Date/ Time Living Will Yes March 08, 2023 5 :27pm Power of Returned Goods Sorter No March 08, 2023 5:27pm Advance Directive Response Recorded Date/ Time Living Will Yes March 08, 2023 4 :27pm Power of Returned Goods Sorter No March 08, 2023 4:27pm Advance Directive Response Recorded Date/ Time Living Will Yes January 12, 2024 2:08pm Power of Returned Goods Sorter Yes January 11 2:08pm Name of Medical Power of Returned Goods Sorter Tez Smith January 12, 2024 2:08pm Advance Directive Response Recorded Date/ Time Name of Medical Power of Returned Goods Sorter Tez Smith -daughter January 12, 2024 6:38pm Living Will Yes January 12, 2024 6:38pm Power of Returned Goods Sorter Yes January 11 6:38pm Date Activated Date Inactivated Comments 01/18/2024 12:24 PM 02/19/2024 3:29 PM Question Answer Comments DNR Order Discussed With: PatientSurrogate Decis ion Maker Surrogate Decision Maker Name: Tez (legal aliza lynn) Date Activated Date Inactivated Comments 01/17/2024 4:50 PM 01/18/2024 12:24 PM Question Answer Comments DNR Order Discussed With: Patient Date Activated Date Inactivated Comments 01/17/2024 2:28 PM 01/17/2024 4:50 PM Question Answer Comments Full Code Order Discussed With: Patient Date Activated Date Inactivated Comments 02/23/2024 3:57 PM Date Activated Date Inactivated Comments 01/18/2024 12:24 PM 02/19/2024 3:29 PM Question Answer Comments DNR Order Discussed With: PatientSurrogate Decis ion Maker Surrogate Decision Maker Name: Tez (legal aliza lynn) Date Activated Date Inactivated Comments 01/17/2024 4:50 PM 01/18/2024 12:24 PM Question Answer Comments DNR Order Discussed With: Patient Date Activated Date Inactivated Comments 01/17/2024 2:28 PM 01/17/2024 4:50 PM Question Answer Comments Full Code Order Discussed With: Patient Date Activated Date Inactivated Comments 02/23/2024 3:57 PM Date Activated Date Inactivated Comments 01/18/2024 12:24 PM 02/19/2024 3:29 PM Question Answer Comments DNR Order Discussed With: PatientSurrogate Decis ion Maker Surrogate Decision Maker Name: Tez (legal aliza lynn) Date Activated Date Inactivated Comments 01/17/2024 4:50 PM 01/18/2024 12:24 PM Question Answer Comments DNR Order Discussed With: Patient Date Activated Date Inactivated Comments 01/17/2024 2:28 PM 01/17/2024 4:50 PM Question Answer Comments Full Code Order Discussed With: Patient Medications Administered Section Inactive Administered Medications - up to 3 most recent administrations Medication Order MAR Action Action Date Dose Rate Site fulvestrant 500 mg injection (FASLODEX) 500 mg, INTRAMUSCULAR, ONCE, 1 dose, On Thu02/12/22 at 1130, Hazardous Chemotherapy Drug: Use appropriate PPE. Refrigerate. Given 02/12/2022 11:15 AM EDT 250 mg Buttocks, Right Inactive Administered Medications - up to 3 most recent administrations Medication Order MAR Action Action Date Dose Rate Site fulvestrant 500 mg injection (FASLODEX) 500 mg, INTRAMUSCULAR, ONCE, 1 dose, On Thu03/14/22 at 1030, Hazardous Chemotherapy Drug: Use appropriate PPE. Refrigerate. Given 03/14/2022 10:52 AM EDT 500 mg Buttocks, Left Inactive Administered Medications - up to 3 most recent administrations Medication Order MAR Action Action Date Dose Rate Site fulvestrant 500 mg injection (FASLODEX) 500 mg, INTRAMUSCULAR, ONCE, 1 dose, On Thu04/18/22 at 1200, Hazardous Chemotherapy Drug: Use appropriate PPE. Refrigerate. Given 04/18/2022 11:44 AM EDT 500 mg Buttocks, Right Inactive Administered Medications - up to 3 most recent administrations Medication Order MAR Action Action Date Dose Rate Site fulvestrant 500 mg injection (FASLODEX) 500 mg, INTRAMUSCULAR, ONCE, 1 dose, On Thu05/16/22 at 1030, Hazardous Chemotherapy Drug: Use appropriate PPE. Refrigerate. Given 05/16/2022 10:28 AM EDT 500 mg Buttocks, Left Inactive Administered Medications - up to 3 most recent administrations Medication Order MAR Action Action Date Dose Rate Site fulvestrant 500 mg injection (FASLODEX) 500 mg, INTRAMUSCULAR, ONCE, 1 dose, On Thu06/13/22 at 1030, Hazardous Chemotherapy Drug: Use appropriate PPE. Refrigerate. Given 06/13/2022 10:30 AM EDT 500 mg Buttocks, Right Inactive Administered Medications - up to 3 most recent administrations Medication Order MAR Action Action Date Dose Rate Site fulvestrant 500 mg injection (FASLODEX) 500 mg, INTRAMUSCULAR, ONCE, 1 dose, On Thu07/11/22 at 0900, Hazardous Chemotherapy Drug: Use appropriate PPE. Refrigerate. Given 07/11/2022 9:13 AM EDT 500 mg Buttocks, Right Inactive Administered Medications - up to 3 most recent administrations Medication Order MAR Action Action Date Dose Rate Site fulvestrant 500 mg injection (FASLODEX) 500 mg, INTRAMUSCULAR, ONCE, 1 dose, On Thu08/22/22 at 1230, Hazardous Chemotherapy Drug: Use appropriate PPE. Refrigerate. Given 08/22/2022 12:35 PM EST 500 mg Buttocks, Left Inactive Administered Medications - up to 3 most recent administrations Medication Order MAR Action Action Date Dose Rate Site fulvestrant 500 mg injection (FASLODEX) 500 mg, INTRAMUSCULAR, ONCE, 1 dose, On Thu10/17/22 at 0900, Hazardous Chemotherapy Drug: Use appropriate PPE. Refrigerate. Given 10/17/2022 8:59 AM EST 500 mg Buttocks, Left Inactive Administered Medications - up to 3 most recent administrations Medication Order MAR Action Action Date Dose Rate Site fulvestrant 500 mg injection (FASLODEX) 500 mg, INTRAMUSCULAR, ONCE, 1 dose, On Thu11/14/22 at 0900, Hazardous Chemotherapy Drug: Use appropriate PPE. Refrigerate. Given 11/14/2022 8:45 AM EST 500 mg Buttocks, Left Inactive Administered Medications - up to 3 most recent administrations Medication Order MAR Action Action Date Dose Rate Site fulvestrant 500 mg injection (FASLODEX) 500 mg, INTRAMUSCULAR, ONCE, 1 dose, On Thu12/12/22 at 1100, Hazardous Chemotherapy Drug: Use appropriate PPE. Refrigerate. Given 12/12/2022 10:47 AM EST 500 mg Buttocks, Left Inactive Administered Medications - up to 3 most recent administrations Medication Order MAR Action Action Date Dose Rate Site fulvestrant 500 mg injection (FASLODEX) 500 mg, INTRAMUSCULAR, ONCE, 1 dose, On Thu01/09/23 at 0900, Hazardous Chemotherapy Drug: Use appropriate PPE. Refrigerate. Given 01/09/2023 9:10 AM EDT 500 mg Buttocks, Left Inactive Administered Medications - up to 3 most recent administrations Medication Order MAR Action Action Date Dose Rate Site fulvestrant 500 mg injection (FASLODEX) 500 mg, INTRAMUSCULAR, ONCE, 1 dose, On Thu02/06/23 at 0930, Hazardous Chemotherapy Drug: Use appropriate PPE. Refrigerate. Given 02/06/2023 9:25 AM EDT 500 mg Buttocks, Right Inactive Administered Medications - up to 3 most recent administrations Medication Order MAR Action Action Date Dose Rate Site fulvestrant 500 mg injection (FASLODEX) 500 mg, INTRAMUSCULAR, ONCE, 1 dose, On Thu03/06/23 at 0830, Hazardous Chemotherapy Drug: Use appropriate PPE. Refrigerate. Given 03/06/2023 8:42 AM EDT 500 mg Buttocks, Left Inactive Administered Medications - up to 3 most recent administrations Medication Order MAR Action Action Date Dose Rate Site fulvestrant 500 mg injection (FASLODEX) 500 mg, INTRAMUSCULAR, ONCE, 1 dose, On Thu04/03/23 at 0830, Hazardous Chemotherapy Drug: Use appropriate PPE. Refrigerate. Given 04/03/2023 8:52 AM EDT 500 mg Buttocks, Right Inactive Administered Medications - up to 3 most recent administrations Medication Order MAR Action Action Date Dose Rate Site fulvestrant 500 mg injection (FASLODEX) 500 mg, INTRAMUSCULAR, ONCE, 1 dose, On Thu05/01/23 at 1000, Hazardous Chemotherapy Drug: Use appropriate PPE. Refrigerate. Given 05/01/2023 9:59 AM EDT 500 mg Buttocks, Left Inactive Administered Medications - up to 3 most recent administrations Medication Order MAR Action Action Date Dose Rate Site fulvestrant 500 mg injection (FASLODEX) 500 mg, INTRAMUSCULAR, ONCE, 1 dose, On Thu05/29/23 at 0930, Hazardous Chemotherapy Drug: Use appropriate PPE. Refrigerate. Given 05/29/2023 9:27 AM EDT 500 mg Buttocks, Left Inactive Administered Medications - up to 3 most recent administrations Medication Order MAR Action Action Date Dose Rate Site fulvestrant 500 mg injection (FASLODEX) 500 mg, INTRAMUSCULAR, ONCE, 1 dose, On Thu06/26/23 at 0900, Hazardous Chemotherapy Drug: Use appropriate PPE. Refrigerate. Given 06/26/2023 9:05 AM EDT 500 mg Buttocks, Left Inactive Administered Medications - up to 3 most recent administrations Medication Order MAR Action Action Date Dose Rate Site fulvestrant 500 mg injection (FASLODEX) 500 mg, INTRAMUSCULAR, ONCE, 1 dose, On Thu07/24/23 at 0900, Hazardous Chemotherapy Drug: Use appropriate PPE. Refrigerate. Given 07/24/2023 9:16 AM EDT 500 mg Buttocks, Left Inactive Administered Medications - up to 3 most recent administrations Medication Order MAR Action Action Date Dose Rate Site fulvestrant 500 mg injection (FASLODEX) 500 mg, INTRAMUSCULAR, ONCE, 1 dose, On Thu08/21/23 at 0900, Hazardous Chemotherapy Drug: Use appropriate PPE. Refrigerate. Given 08/21/2023 9:05 AM EST 500 mg Buttocks, Left Reason for Referral Specialty Diagnoses / Procedures Referred By Lucia bravo Referred To Contact CT IMAGING Diagnoses Malignant neoplasm of female breast, unspecified estrogen receptor status, unspecified laterality, unspecified site of breast (HCC) Procedures CT CHEST W IVCON DIAGNOSTIC COMPUTED TOMOGRAPHY THORAX W/[place] [address] [place] [address] Ct Imaging Referral ID Status Reason Start Date Expiration Date Visits Requested Visits Authorized [id number] Pending Review Auto-Generat ed Referral 05/10/2022 06/09/2023 1 1 Specialty Diagnoses / Procedures Referred By Lucia bravo Referred To Contact CT IMAGING Diagnoses Malignant neoplasm of female breast, unspecified estrogen receptor status, unspecified laterality, unspecified site of breast (HCC) Procedures CT ABD/PEL W IVCON CT ABD & PELVIS W/[place] [address] [place] [address] Ct Imaging Referral ID Status Reason Start Date Expiration Date Visits Requested Visits Authorized [id number] Pending Review Auto-Generat ed Referral 05/10/2022 06/09/2023 1 1 Chief Complaint and Reason for Visit Chief Complaint CONFUSION Chief Complaint CONFUSION Vascular dementia, unspecified severity, without b Chief Complaint FALL Chief Complaint FALL ADMISSION EXAM ADMISSION EXAM Chief Complaint HIP FRACTURE LEFT Chief Complaint HIP FRACTURE LEFT HIP FRACTURE LEFT HIP FRACTURE LEFT HIP FRACTURE LEFT HIP FRACTURE LEFT HIP FRACTURE LEFT HIP FRACTURE LEFT Reason for Visit Atrial fibrillation Fracture, intertrochanteric, left femur Invasive ductal carcinoma of left breast, stage 2 Osteoporosis Additional Source Comments INFORMATION SOURCE (unrecogn ized section and content) DATE CREATED AUTHOR 07/11/2021 [facility] DATE CREATED AUTHOR AUTHOR'S ORGANIZ ATION 07/02/2022 [facility] DATE CREATED AUTHOR AUTHOR'S ORGANIZ ATION 05/02/2023 [facility] DATE CREATED AUTHOR AUTHOR'S ORGANIZ ATION 02/28/2024 [facility] DATE CREATED AUTHOR AUTHOR'S ORGANIZ ATION 10/14/2024 [facility] DATE CREATED AUTHOR AUTHOR'S ORGANIZ ATION 02/10/2025 [facility] DATE CREATED AUTHOR AUTHOR'S ORGANIZ ATION 08/11/2025 [facility] DATE CREATED AUTHOR AUTHOR'S ORGANIZ ATION 08/11/2025 [facility] Source Comments (unrecognize d section and content) In the event this informatio n is protected by the Federal Confidentiality of Alcohol and Drug Abuse Patient Records regulations: The Federal rules restrict any use of the information to criminally investigate or prosecute any alcohol or drug abuse patient.[facility] the event this information is protected by the Federal Confidentiality of Alcohol and Drug Abuse Patient Records regulations: The Federal rules restrict any use of the information to criminally investigate or prosecute any alcohol or drug abuse patient.[facility] the event this information is protected by the Federal Confidentiality of Alcohol and Drug Abuse Patient Records regulations: The Federal rules restrict any use of the information to criminally investigate or prosecute any alcohol or drug abuse patient.[facility] the event this information is protected by the Federal Confidentiality of Alcohol and Drug Abuse Patient Records regulations: The Federal rules restrict any use of the information to criminally investigate or prosecute any alcohol or drug abuse patient.[facility] the event this information is protected by the Federal Confidentiality of Alcohol and Drug Abuse Patient Records regulations: The Federal rules restrict any use of the information to criminally investigate or prosecute any alcohol or drug abuse patient.[facility] the event this information is protected by the Federal Confidentiality of Alcohol and Drug Abuse Patient Records regulations: The Federal rules restrict any use of the information to criminally investigate or prosecute any alcohol or drug abuse patient.[facility] Center[facility] the event this information is protected by the Federal Confidentiality of Alcohol and Drug Abuse Patient Records regulations: The Federal rules restrict any use of the information to criminally investigate or prosecute any alcohol or drug abuse patient.[facility] Center[facility] the event this information is protected by the Federal Confidentiality of Alcohol and Drug Abuse Patient Records regulations: The Federal rules restrict any use of the information to criminally investigate or prosecute any alcohol or drug abuse patient.[facility] Center[facility] the event this information is protected by the Federal Confidentiality of Alcohol and Drug Abuse Patient Records regulations: The Federal rules restrict any use of the information to criminally investigate or prosecute any alcohol or drug abuse patient.[facility] Center[facility] the event this information is protected by the Federal Confidentiality of Alcohol and Drug Abuse Patient Records regulations: The Federal rules restrict any use of the information to criminally investigate or prosecute any alcohol or drug abuse patient.[facility] Center[facility] the event this information is protected by the Federal Confidentiality of Alcohol and Drug Abuse Patient Records regulations: The Federal rules restrict any use of the information to criminally investigate or prosecute any alcohol or drug abuse patient.[facility] Center[facility] the event this information is protected by the Federal Confidentiality of Alcohol and Drug Abuse Patient Records regulations: The Federal rules restrict any use of the information to criminally investigate or prosecute any alcohol or drug abuse patient.[facility] Center[facility] the event this information is protected by the Federal Confidentiality of Alcohol and Drug Abuse Patient Records regulations: The Federal rules restrict any use of the information to criminally investigate or prosecute any alcohol or drug abuse patient.[facility] Center[facility] the event this information is protected by the Federal Confidentiality of Alcohol and Drug Abuse Patient Records regulations: The Federal rules restrict any use of the information to criminally investigate or prosecute any alcohol or drug abuse patient.[facility] Center[facility] the event this information is protected by the Federal Confidentiality of Alcohol and Drug Abuse Patient Records regulations: The Federal rules restrict any use of the information to criminally investigate or prosecute any alcohol or drug abuse patient.[facility] Center[facility] the event this information is protected by the Federal Confidentiality of Alcohol and Drug Abuse Patient Records regulations: The Federal rules restrict any use of the information to criminally investigate or prosecute any alcohol or drug abuse patient.[facility] Center[facility] the event this information is protected by the Federal Confidentiality of Alcohol and Drug Abuse Patient Records regulations: The Federal rules restrict any use of the information to criminally investigate or prosecute any alcohol or drug abuse patient.[facility] CenterIn the event this information is protected by the Federal Confidentiality of Alcohol and Drug Abuse Patient Records regulations: The Federal rules restrict any use of the information to criminally investigate or prosecute any alcohol or drug abuse patient.[facility] CenterIn the event this information is protected by the Federal Confidentiality of Alcohol and Drug Abuse Patient Records regulations: The Federal rules restrict any use of the information to criminally investigate or prosecute any alcohol or drug abuse patient.[facility] CenterIn the event this information is protected by the Federal Confidentiality of Alcohol and Drug Abuse Patient Records regulations: The Federal rules restrict any use of the information to criminally investigate or prosecute any alcohol or drug abuse patient.[facility] CenterIn the event this information is protected by the Federal Confidentiality of Alcohol and Drug Abuse Patient Records regulations: The Federal rules restrict any use of the information to criminally investigate or prosecute any alcohol or drug abuse patient.[facility] CenterIn the event this information is protected by the Federal Confidentiality of Alcohol and Drug Abuse Patient Records regulations: The Federal rules restrict any use of the information to criminally investigate or prosecute any alcohol or drug abuse patient.[facility] CenterIn the event this information is protected by the Federal Confidentiality of Alcohol and Drug Abuse Patient Records regulations: The Federal rules restrict any use of the information to criminally investigate or prosecute any alcohol or drug abuse patient.[facility] CenterIn the event this information is protected by the Federal Confidentiality of Alcohol and Drug Abuse Patient Records regulations: The Federal rules restrict any use of the information to criminally investigate or prosecute any alcohol or drug abuse patient.[facility] CenterIn the event this information is protected by the Federal Confidentiality of Alcohol and Drug Abuse Patient Records regulations: The Federal rules restrict any use of the information to criminally investigate or prosecute any alcohol or drug abuse patient.[facility] CenterIn the event this information is protected by the Federal Confidentiality of Alcohol and Drug Abuse Patient Records regulations: The Federal rules restrict any use of the information to criminally investigate or prosecute any alcohol or drug abuse patient.[facility] CenterIn the event this information is protected by the Federal Confidentiality of Alcohol and Drug Abuse Patient Records regulations: The Federal rules restrict any use of the information to criminally investigate or prosecute any alcohol or drug abuse patient.[facility] CenterIn the event this information is protected by the Federal Confidentiality of Alcohol and Drug Abuse Patient Records regulations: The Federal rules restrict any use of the information to criminally investigate or prosecute any alcohol or drug abuse patient.[facility] CenterIn the event this information is protected by the Federal Confidentiality of Alcohol and Drug Abuse Patient Records regulations: The Federal rules restrict any use of the information to criminally investigate or prosecute any alcohol or drug abuse patient.[facility] CenterIn the event this information is protected by the Federal Confidentiality of Alcohol and Drug Abuse Patient Records regulations: The Federal rules restrict any use of the information to criminally investigate or prosecute any alcohol or drug abuse patient.[facility] CenterIn the event this information is protected by the Federal Confidentiality of Alcohol and Drug Abuse Patient Records regulations: The Federal rules restrict any use of the information to criminally investigate or prosecute any alcohol or drug abuse patient.[facility] CenterIn the event this information is protected by the Federal Confidentiality of Alcohol and Drug Abuse Patient Records regulations: The Federal rules restrict any use of the information to criminally investigate or prosecute any alcohol or drug abuse patient.[facility] CenterIn the event this information is protected by the Federal Confidentiality of Alcohol and Drug Abuse Patient Records regulations: The Federal rules restrict any use of the information to criminally investigate or prosecute any alcohol or drug abuse patient.[facility] CenterIn the event this information is protected by the Federal Confidentiality of Alcohol and Drug Abuse Patient Records regulations: The Federal rules restrict any use of the information to criminally investigate or prosecute any alcohol or drug abuse patient.[facility] CenterIn the event this information is protected by the Federal Confidentiality of Alcohol and Drug Abuse Patient Records regulations: The Federal rules restrict any use of the information to criminally investigate or prosecute any alcohol or drug abuse patient.[facility] CenterIn the event this information is protected by the Federal Confidentiality of Alcohol and Drug Abuse Patient Records regulations: The Federal rules restrict any use of the information to criminally investigate or prosecute any alcohol or drug abuse patient.[facility] CenterIn the event this information is protected by the Federal Confidentiality of Alcohol and Drug Abuse Patient Records regulations: The Federal rules restrict any use of the information to criminally investigate or prosecute any alcohol or drug abuse patient.[facility] CenterIn the event this information is protected by the Federal Confidentiality of Alcohol and Drug Abuse Patient Records regulations: The Federal rules restrict any use of the information to criminally investigate or prosecute any alcohol or drug abuse patient.[facility] CenterIn the event this information is protected by the Federal Confidentiality of Alcohol and Drug Abuse Patient Records regulations: The Federal rules restrict any use of the information to criminally investigate or prosecute any alcohol or drug abuse patient.[facility] CenterIn the event this information is protected by the Federal Confidentiality of Alcohol and Drug Abuse Patient Records regulations: The Federal rules restrict any use of the information to criminally investigate or prosecute any alcohol or drug abuse patient.[facility] CenterIn the event this information is protected by the Federal Confidentiality of Alcohol and Drug Abuse Patient Records regulations: The Federal rules restrict any use of the information to criminally investigate or prosecute any alcohol or drug abuse patient.[facility] CenterIn the event this information is protected by the Federal Confidentiality of Alcohol and Drug Abuse Patient Records regulations: The Federal rules restrict any use of the information to criminally investigate or prosecute any alcohol or drug abuse patient.[facility] CenterIn the event this information is protected by the Federal Confidentiality of Alcohol and Drug Abuse Patient Records regulations: The Federal rules restrict any use of the information to criminally investigate or prosecute any alcohol or drug abuse patient.[facility] CenterIn the event this information is protected by the Federal Confidentiality of Alcohol and Drug Abuse Patient Records regulations: The Federal rules restrict any use of the information to criminally investigate or prosecute any alcohol or drug abuse patient.[facility] CenterIn the event this information is protected by the Federal Confidentiality of Alcohol and Drug Abuse Patient Records regulations: The Federal rules restrict any use of the information to criminally investigate or prosecute any alcohol or drug abuse patient.[facility] CenterIn the event this information is protected by the Federal Confidentiality of Alcohol and Drug Abuse Patient Records regulations: The Federal rules restrict any use of the information to criminally investigate or prosecute any alcohol or drug abuse patient.[facility] CenterIn the event this information is protected by the Federal Confidentiality of Alcohol and Drug Abuse Patient Records regulations: The Federal rules restrict any use of the information to criminally investigate or prosecute any alcohol or drug abuse patient.[facility] CenterIn the event this information is protected by the Federal Confidentiality of Alcohol and Drug Abuse Patient Records regulations: The Federal rules restrict any use of the information to criminally investigate or prosecute any alcohol or drug abuse patient.[facility] CenterIn the event this information is protected by the Federal Confidentiality of Alcohol and Drug Abuse Patient Records regulations: The Federal rules restrict any use of the information to criminally investigate or prosecute any alcohol or drug abuse patient.[facility] CenterIn the event this information is protected by the Federal Confidentiality of Alcohol and Drug Abuse Patient Records regulations: The Federal rules restrict any use of the information to criminally investigate or prosecute any alcohol or drug abuse patient.[facility] CenterIn the event this information is protected by the Federal Confidentiality of Alcohol and Drug Abuse Patient Records regulations: The Federal rules restrict any use of the information to criminally investigate or prosecute any alcohol or drug abuse patient.[facility] the event this information is protected by the Federal Confidentiality of Alcohol and Drug Abuse Patient Records regulations: The Federal rules restrict any use of the information to criminally investigate or prosecute any alcohol or drug abuse patient.[facility] CenterIn the event this information is protected by the Federal Confidentiality of Alcohol and Drug Abuse Patient Records regulations: The Federal rules restrict any use of the information to criminally investigate or prosecute any alcohol or drug abuse patient.[facility] CenterIn the event this information is protected by the Federal Confidentiality of Alcohol and Drug Abuse Patient Records regulations: The Federal rules restrict any use of the information to criminally investigate or prosecute any alcohol or drug abuse patient.[facility] CenterIn the event this information is protected by the Federal Confidentiality of Alcohol and Drug Abuse Patient Records regulations: The Federal rules restrict any use of the information to criminally investigate or prosecute any alcohol or drug abuse patient.[facility] CenterIn the event this information is protected by the Federal Confidentiality of Alcohol and Drug Abuse Patient Records regulations: The Federal rules restrict any use of the information to criminally investigate or prosecute any alcohol or drug abuse patient.[facility] CenterIn the event this information is protected by the Federal Confidentiality of Alcohol and Drug Abuse Patient Records regulations: The Federal rules restrict any use of the information to criminally investigate or prosecute any alcohol or drug abuse patient.[facility] CenterIn the event this information is protected by the Federal Confidentiality of Alcohol and Drug Abuse Patient Records regulations: The Federal rules restrict any use of the information to criminally investigate or prosecute any alcohol or drug abuse patient.[facility] CenterIn the event this information is protected by the Federal Confidentiality of Alcohol and Drug Abuse Patient Records regulations: The Federal rules restrict any use of the information to criminally investigate or prosecute any alcohol or drug abuse patient.[facility] CenterIn the event this information is protected by the Federal Confidentiality of Alcohol and Drug Abuse Patient Records regulations: The Federal rules restrict any use of the information to criminally investigate or prosecute any alcohol or drug abuse patient.[facility] CenterIn the event this information is protected by the Federal Confidentiality of Alcohol and Drug Abuse Patient Records regulations: The Federal rules restrict any use of the information to criminally investigate or prosecute any alcohol or drug abuse patient.[facility] CenterIn the event this information is protected by the Federal Confidentiality of Alcohol and Drug Abuse Patient Records regulations: The Federal rules restrict any use of the information to criminally investigate or prosecute any alcohol or drug abuse patient.[facility] CenterIn the event this information is protected by the Federal Confidentiality of Alcohol and Drug Abuse Patient Records regulations: The Federal rules restrict any use of the information to criminally investigate or prosecute any alcohol or drug abuse patient.[facility] CenterIn the event this information is protected by the Federal Confidentiality of Alcohol and Drug Abuse Patient Records regulations: The Federal rules restrict any use of the information to criminally investigate or prosecute any alcohol or drug abuse patient.[facility] CenterIn the event this information is protected by the Federal Confidentiality of Alcohol and Drug Abuse Patient Records regulations: The Federal rules restrict any use of the information to criminally investigate or prosecute any alcohol or drug abuse patient.[facility] CenterIn the event this information is protected by the Federal Confidentiality of Alcohol and Drug Abuse Patient Records regulations: The Federal rules restrict any use of the information to criminally investigate or prosecute any alcohol or drug abuse patient.[facility] CenterIn the event this information is protected by the Federal Confidentiality of Alcohol and Drug Abuse Patient Records regulations: The Federal rules restrict any use of the information to criminally investigate or prosecute any alcohol or drug abuse patient.[facility] CenterIn the event this information is protected by the Federal Confidentiality of Alcohol and Drug Abuse Patient Records regulations: The Federal rules restrict any use of the information to criminally investigate or prosecute any alcohol or drug abuse patient.[facility] CenterIn the event this information is protected by the Federal Confidentiality of Alcohol and Drug Abuse Patient Records regulations: The Federal rules restrict any use of the information to criminally investigate or prosecute any alcohol or drug abuse patient.[facility] CenterIn the event this information is protected by the Federal Confidentiality of Alcohol and Drug Abuse Patient Records regulations: The Federal rules restrict any use of the information to criminally investigate or prosecute any alcohol or drug abuse patient.[facility] CenterIn the event this information is protected by the Federal Confidentiality of Alcohol and Drug Abuse Patient Records regulations: The Federal rules restrict any use of the information to criminally investigate or prosecute any alcohol or drug abuse patient.[facility] CenterIn the event this information is protected by the Federal Confidentiality of Alcohol and Drug Abuse Patient Records regulations: The Federal rules restrict any use of the information to criminally investigate or prosecute any alcohol or drug abuse patient.[facility] CenterIn the event this information is protected by the Federal Confidentiality of Alcohol and Drug Abuse Patient Records regulations: The Federal rules restrict any use of the information to criminally investigate or prosecute any alcohol or drug abuse patient.[facility] CenterIn the event this information is protected by the Federal Confidentiality of Alcohol and Drug Abuse Patient Records regulations: The Federal rules restrict any use of the information to criminally investigate or prosecute any alcohol or drug abuse patient.[facility] CenterIn the event this information is protected by the Federal Confidentiality of Alcohol and Drug Abuse Patient Records regulations: The Federal rules restrict any use of the information to criminally investigate or prosecute any alcohol or drug abuse patient.[facility] CenterIn the event this information is protected by the Federal Confidentiality of Alcohol and Drug Abuse Patient Records regulations: The Federal rules restrict any use of the information to criminally investigate or prosecute any alcohol or drug abuse patient.[facility] CenterIn the event this information is protected by the Federal Confidentiality of Alcohol and Drug Abuse Patient Records regulations: The Federal rules restrict any use of the information to criminally investigate or prosecute any alcohol or drug abuse patient.[facility] CenterIn the event this information is protected by the Federal Confidentiality of Alcohol and Drug Abuse Patient Records regulations: The Federal rules restrict any use of the information to criminally investigate or prosecute any alcohol or drug abuse patient.[facility] CenterIn the event this information is protected by the Federal Confidentiality of Alcohol and Drug Abuse Patient Records regulations: The Federal rules restrict any use of the information to criminally investigate or prosecute any alcohol or drug abuse patient.[facility] CenterIn the event this information is protected by the Federal Confidentiality of Alcohol and Drug Abuse Patient Records regulations: The Federal rules restrict any use of the information to criminally investigate or prosecute any alcohol or drug abuse patient.[facility] CenterIn the event this information is protected by the Federal Confidentiality of Alcohol and Drug Abuse Patient Records regulations: The Federal rules restrict any use of the information to criminally investigate or prosecute any alcohol or drug abuse patient.[facility] CenterIn the event this information is protected by the Federal Confidentiality of Alcohol and Drug Abuse Patient Records regulations: The Federal rules restrict any use of the information to criminally investigate or prosecute any alcohol or drug abuse patient.[facility] Reason for Visit (unrecogniz ed section and content) Reason Comments Imm/Inj Specialty Diagnoses / Procedures Referred By Contac t Referred To Contact Diagnoses Cancer of breast, intraductal, left Malignant neoplasm of unspecified site of unspecified female breast Procedures INJECTION, [place] [address] [place] [address] [place] [address] Referral ID Status Reason Start Date Expiration Date V isits Requested Visits Authorized [id number] Authorized 09/04/2020 10/04/2024 99 99 Reason Comments Follow Up Breast Cancer 3 mos Follow up Reason Comments Imm/Inj faslodex Referral ID Status Reason Start Date Expiration Date V isits Requested Visits Authorized [id number] Authorized 09/04/2020 02/15/2024 45 45 Reason Comments Chemotherapy Treatment Imm/Inj Referral ID Status Reason Start Date Expiration Date V isits Requested Visits Authorized [id number] Authorized 09/04/2020 02/14/2023 32 32 Specialty Diagnoses / Procedures Referred By Contac t Referred To Contact Hematology / HEMATOLOGY/ONCOLOGY Diagnoses Faslodex [place] [address] [place] [id number] [place] [address] [address] Referral ID Status Reason Start Date Expiration Date V isits Requested Visits Authorized [id number] Pending Review 08/08/2022 11/06/2022 1 1 Referral ID Status Reason Start Date Expiration Date V isits Requested Visits Authorized [id number] Authorized 09/04/2020 09/26/2022 26 26 Reason Comments Anticoagulation Reason Comments Non-Chemotherapy Treatment Faslodex Reason Comments Refill Request Referral ID Status Reason Start Date Expiration Date V isits Requested Visits Authorized [id number] Authorized 09/04/2020 03/07/2022 18 18 Reason Onset Date Comments Refill Request 03/14/2022 Specialty Diagnoses / Procedures [facility] Referred To Contact Diagnoses Cancer of breast, intraductal, left Malignant neoplasm of unspecified site of unspecified female breast Procedures INJECTION, [place] [address] [place] [id number] [facility] [address] [address] Referral ID Status Reason Start Date Expiration Date V isits Requested Visits Authorized [id number] Pending Review 09/04/2020 09/26/2022 26 26 Reason Comments Follow Up labs Reason Comments Radiology CT Reason Comments Appointment Reason Comments Insurance Authorization Reason Comments Follow Up Reason Onset Date Comments Med Refill 05/02/2023 Reason Comments Home Care Confirmation call Reason Comments Home Care Md to follow Reason Comments Home Care Reason Comments Follow Up Breast Cancer Referral ID Status Reason Start Date Expiration Date V isits Requested Visits Authorized [id number] Authorized 09/04/2020 10/04/2025 99 99 Reason Comments Breast Cancer Follow Up Reason Comments Imm/Inj Faslodex Specialty Diagnoses / Procedures [facility] Referred To Contact Diagnoses Cancer of breast, intraductal, left Malignant neoplasm of unspecified site of unspecified female breast Procedures INJECTION, [place] [address] [place] [id number] Phone: tel: fax: Hematology[facility] [address] [address] Phone: tel: Reason Comments Follow Up Breast Cancer No c/o voiced at thi s time. Specialty Diagnoses / Procedures [facility] Referred To Contact Diagnoses Cancer of breast, intraductal, left Malignant neoplasm of unspecified site of unspecified female breast (HCC) Procedures INJECTION, [place] [address] [place] [address] Phone: tel: fax: Hematology/Oncology [facility] [address] [address] Phone: tel: Reason Comments Orders Care Teams (unrecognized sec tion and content) Handle Bar Assembler Relationship Specialty Start Date End Date Yoav Chakraborty MD PCP - General Family Practice 10/04/12 Joss Hammond MD, [address] [place], [place] [id number] [phone] Physician Radiation Oncology 09/06/20 [facility] [address] [phone] Musical String Maker Oncology 09/11/20 Handle Bar Assembler Relationship Specialty Start Date End Date Yoav Chakraborty MD PCP - General Family Practice 10/04/12 Joss Hammond MD, [address] [place], [place] [address] [phone] Physician Radiation Oncology 09/06/20 [facility] [place] [address] [address] Musical String Maker Oncology 09/11/20 Handle Bar Assembler Relationship Specialty Start Date End Date Yoav Chakraborty MD PCP - General Family Practice 10/04/12 Joss Hammond MD, [address] [place], [place] [id number] [phone] Physician Radiation Oncology 09/06/20 [facility] [address] [address] Musical String Maker Oncology 09/11/20 Handle Bar Assembler Relationship Specialty Start Date End Date Yoav Chakraborty MD PCP - General Family Practice 10/04/12 Joss Hammond MD, [address] [place] [address] Physician Radiation Oncology 09/06/20 [place] [address] [address] Musical String Maker Oncology 09/11/20 Handle Bar Assembler Relationship Specialty Start Date End Date Yoav Chakraborty MD PCP - General Family Practice 10/04/12 Joss Hammond MD, [address] [place] [address] Physician Radiation Oncology 09/06/20 [place] [address] [address] Musical String Maker Oncology 09/11/20 Handle Bar Assembler Relationship Specialty Start Date End Date Yoav Chakraborty MD PCP - General Family Practice 10/04/12 Joss Hammond MD, [address] [facility] [address] [place] [address] Physician Radiation Oncology 09/06/20 [place] [address] [address] Musical String Maker Oncology 09/11/20 Handle Bar Assembler Relationship Specialty Start Date End Date Yoav Chakraborty MD PCP - General Family Practice 10/04/12 Joss Hammond MD, [address] [address] Physician Radiation Oncology 09/06/20 Elle Herrera LISW [address] [address] Musical String Maker Oncology 09/11/20 Handle Bar Assembler Relationship Specialty Start Date End Date Yoav Chakraborty MD PCP - General Family Practice 10/04/12 Joss Hammond MD, [address] [place] [place] [address] Physician Radiation Oncology 09/06/20 Elle Herrera SHEETER HELPER [address] [address] Musical String Maker Oncology 09/11/20 Handle Bar Assembler Relationship Specialty Start Date End Date Yoav Chakraborty MD PCP - General Family Practice 10/04/12 Joss Hammond MD, [address] [place] [place] [address] Physician Radiation Oncology 09/06/20 Elle Herrera SHEETER HELPER [address] [address] Musical String Maker Oncology 09/11/20 Handle Bar Assembler Relationship Specialty Start Date End Date Yoav Chakraborty MD PCP - General Family Practice 10/04/12 Joss Hammond MD, [address] [place] [place] [address] Physician Radiation Oncology 09/06/20 Elle Herrera SHEETER HELPER [address] [address] Musical String Maker Oncology 09/11/20 Handle Bar Assembler Relationship Specialty Start Date End Date Yoav Chakraborty MD PCP - General Family Medicine 10/04/12 Joss Hammond MD, [address] [place], [place] [address] [phone] Physician Radiation Oncology 09/06/20 [facility] [address] [address] Musical String Maker Oncology 09/11/20 Handle Bar Assembler Relationship Specialty Start Date End Date Yoav Chakraborty MD PCP - General Family Medicine 10/04/12 Joss Hammond MD, [address] [place] [address] Physician Radiation Oncology 09/06/20 [place] [address] [place] [address] Musical String Maker Oncology 09/11/20 Handle Bar Assembler Relationship Specialty Start Date End Date Yoav Chakraborty MD PCP - General Family Medicine 10/04/12 Joss Hammond MD, [address] [place] [address] Physician Radiation Oncology 09/06/20 [place] [address] [address] Musical String Maker Oncology 09/11/20 Handle Bar Assembler Relationship Specialty Start Date End Date Yoav Chakraborty MD PCP - General Family Medicine 10/04/12 Joss Hammond MD, [address] [place] [address] Physician Radiation Oncology 09/06/20 [place] [address] [address] Musical String Maker Oncology 09/11/20 Handle Bar Assembler Relationship Specialty Start Date End Date Yoav Chakraborty MD PCP - General Family Medicine 10/04/12 Joss Hammond MD, [address] [address] Physician Radiation Oncology 09/06/20 [facility] [address] [address] Musical String Maker Oncology 09/11/20 Handle Bar Assembler Relationship Specialty Start Date End Date Yoav Chakraborty MD PCP - General Family Medicine 10/04/12 Joss Hammond MD, [address] [place] [address] Physician Radiation Oncology 09/06/20 [place] [address] [address] Musical String Maker Oncology 09/11/20 Handle Bar Assembler Relationship Specialty Start Date End Date Yoav Chakraborty MD PCP - General Family Medicine 10/04/12 Joss Hammond MD, [address] [place] [address] Physician Radiation Oncology 09/06/20 [place] [address] [address] Musical String Maker Oncology 09/11/20 Handle Bar Assembler Relationship Specialty Start Date End Date Yoav Chakraborty MD PCP - General Family Medicine 10/04/12 Joss Hammond MD, [address] [place] [address] Physician Radiation Oncology 09/06/20 [place] [address] [id number] Musical String Maker Oncology 09/11/20 Handle Bar Assembler Relationship Specialty Start Date End Date Yoav Chakraborty MD PCP - General Family Medicine 10/04/12 Joss Hammond MD, [address] [place] [address] Physician Radiation Oncology 09/06/20 [facility] [address] [address] Musical String Maker Oncology 09/11/20 Handle Bar Assembler Relationship Specialty Start Date End Date Yoav Chakraborty MD PCP - General Family Medicine 10/04/12 Joss Hammond MD, [address] [place] [address] [phone] Physician Radiation Oncology 09/06/20 [facility] [address] Musical String Maker Oncology 09/11/20 Team Status: Active Member Role Status Dates Dr. Yova Chakraborty MD Family Provider Active Dr. Yoav Chakraborty MD Primary Care Provider Active Team Status: Inactive Member Role Status Dates Dr. Yoav Chakraborty MD Primary Care Provider Active Dr. Antelmo Boland , Emergency Provider Active Handle Bar Assembler Relationship Specialty Start Date End Date Yoav Chakraborty MD PCP - General Family Medicine 10/04/12 Joss Hammond MD, [address] [place], [place] [address] [phone] Physician Radiation Oncology 09/06/20 [facility] [address] [address] Musical String Maker Oncology 09/11/20 Handle Bar Assembler Relationship Specialty Start Date End Date Yoav Chakraborty MD PCP - General Family Medicine 10/04/12 Joss Hammond MD, MD [address] [place] [address] Physician Radiation Oncology 09/06/20 [facility] [address] [address] Musical String Maker Oncology 09/11/20 Handle Bar Assembler Relationship Specialty Start Date End Date Yoav Chakraborty MD PCP - General Family Medicine 10/04/12 Joss Hammond MD, [address] [place] [address] Physician Radiation Oncology 09/06/20 [facility] [address] [address] Musical String Maker Oncology 09/11/20 Team Status: Inactive Member Role Status Dates Dr. Yoav Chakraborty MD Primary Care Provider Active Dorys Ku FOOD ORDER DELIVERY RUNNER, FOOD ORDER DELIVERY RUNNER-C Attending Provider Active Team Status: Inactive Member Role Status Dates Dr. Yoav Chakraborty MD Primary Care Provider Active Dr. Andreas Moctezuma MD Attending Provider Active Team Status: Inactive Member Role Status Dates Dr. Yoav Chakraborty MD Primary Care Provider Active Dr. Antelmo Boland DO Attending Provider, Blossom timmons Active Team Status: Inactive Member Role Status Dates Dr. Yoav Chakraborty MD Primary Care Provider Active Perfecto ONEILL, PA Attending Provider, Referring Provider Active Handle Bar Assembler Relationship Specialty Start Date End Date Yoav Chakraborty MD PCP - General Family Medicine 10/04/12 Joss Hammond MD, MD [address] [place] [address] Physician Radiation Oncology 09/06/20 [facility] [address] [address] Musical String Maker Oncology 09/11/20 Handle Bar Assembler Relationship Specialty Start Date End Date Yoav Chakraborty MD PCP - General Family Medicine 10/04/12 Joss Hammond MD, [address] [place], [place] [address] Physician Radiation Oncology 09/06/20 [facility] [address] [address] Musical String Maker Oncology 09/11/20 Team Status: Inactive Member Role Status Dates Dr. Yoav Chakraborty MD Primary Care Provider Active Dr. Connor Kay MD Attending Provider Active Handle Bar Assembler Relationship Specialty Start Date End Date Yoav Chakraborty MD PCP - General Family Medicine 10/04/12 Joss Hammond MD [address] [place] [address] Physician Radiation Oncology 09/06/20 [facility] [address] [address] Musical String Maker Oncology 09/11/20 Handle Bar Assembler Relationship Specialty Start Date End Date Yoav Chakraborty MD PCP - General Family Medicine 10/04/12 Joss Hammond MD [address] [place] [address] Physician Radiation Oncology 09/06/20 Elle Herrera [facility] [address] [phone] Musical String Maker Oncology 09/11/20 Team Status: Active Member Role Status Dates Dr. Yaov Chakraborty MD Primary Care Provider Active Dr. Chacho Epperson , DO Emergency Provider Active Dr. Howard Fragoso MD Admit Provider, Attending Provider Active Team Status: Active Member Role Status Dates Dr. Yoav Chakraborty MD Primary Care Provider Active Dr. Chacho Epperson , Emergency Provider Active Dr. Howard Fragoso MD Admit Provi wilmer, Attending Provider, Other Provider Active Dr. David Morgan MD Other Provider Active Team Status: Active Member Role Status Dates Dr. Yoav Chakraborty MD Primary Care Provider Active Dr. Chacho Epperson DO Emergency Provider Active Dr. Howard Fragoso MD Admit Provider, Other Pro vider Active Dr. David Morgan MD Other Provider Active Dr. Dani Jaramillo , Attending Provider, Other Pro vider Active Team Status: Inactive Member Role Status Dates Dr. Yoav Chakraborty MD Primary Care Provider Active Dr. Chacho Epperson , Emergency Provider Active Dr. Howard Fragoso MD Admit Provider, Other Pro vider Active Dr. David Morgan MD Other Provider Active Dr. Dani Jaramillo , Attending Provider Active Handle Bar Assembler Relationship Specialty Start Date End Date Yoav Chakraborty MD PCP - General Family Medicine 10/04/12 Joss Hammond MD [address] [place], [place] [id number] Physician Radiation Oncology 09/06/20 Elle Herrera, [facility] [address] [phone] Musical String Maker Oncology 09/11/20 Arnie Galvin APRN.DRYING ROOM OPERATOR [address] [place] [address] Referring Internal Medicine 02/20/24 Handle Bar Assembler Relationship Specialty Start Date End Date Yoav Chakraborty MD PCP - General Family Medicine 10/04/12 Joss Hammond MD [address] [place], [place] [address] Physician Radiation Oncology 09/06/20 [facility] L[facility] [address] [place] [address] Musical String Maker Oncology 09/11/20 Arnie Galvin, ELISA.DRYING ROOM OPERATOR [address] [place] [address] Referring Internal Medicine 02/20/24 Yoav Chakraborty MD [address] [place] [address] Home Care Provider Family Medicine 02/22/24 Delicia Lazo, PT [address] [place], [place] [phone] Napping Machine Operator Post Acute Care 02/22/24 Handle Bar Assembler Relationship Specialty Start Date End Date Yoav Chakraborty MD PCP - General Family Medicine 10/04/12 Joss Hammond MD [address] [place], [place] [address] Physician Radiation Oncology 09/06/20 Elle Herrera LIS[facility] [address] [address] Musical String Maker Oncology 09/11/20 Arnie Galvin APRN.DRYING ROOM OPERATOR [address] [place] [address] Referring Internal Medicine 02/20/24 Yoav Chakraborty MD [address] [place] [address] Home Care Provider Family Medicine 02/22/24 Delicia Lazo, PT [address] [facility] [place] [address] Napping Machine Operator Post Acute Care 02/22/24 Skyler Delatorre, NARINDER [address] [place] [address] Napping Machine Operator Post Acute Care 02/23/24 Handle Bar Assembler Relationship Specialty Start Date End Date Yoav Chakraborty MD PCP - General Family Medicine 10/04/12 Joss Hammond MD [address] [place] [address] Physician Radiation Oncology 09/06/20 Elle Herrera, SHEETER HELPER [address] [address] Musical String Maker Oncology 09/11/20 Arnie Galvin, EARLY YEARS TEACHER.DRYING ROOM OPERATOR [address] [place] [address] Referring Internal Medicine 02/20/24 Yoav Chakraborty MD [address] [place] [address] Home Care Provider Family Medicine 02/22/24 Delicia Lazo, PT [address] [place] [address] Napping Machine Operator Post Acute Care 02/22/24 Skyler Delatorre, RN [address] [place], [place] [phone] Napping Machine Operator Post Acute Care 02/23/24 Handle Bar Assembler Relationship Specialty Start Date End Date Yoav Chakraborty MD PCP - General Family Medicine 10/04/12 Joss Hammond MD [address] [place], [place] [address] Physician Radiation Oncology 09/06/20 Elle Herrera LISW [address] [place] [address] Musical String Maker Oncology 09/11/20 Arnie Galvin APRN.DRYING ROOM OPERATOR [address] [place] [address] Referring Internal Medicine 02/20/24 Yoav Chakraborty MD [address] [place] [address] Home Care Provider Family Medicine 02/22/24 Delicia Lazo, PT [address] [place] [address] Napping Machine Operator Post Acute Care 02/22/24 Skyler Delatorre RN [address] [place], [place] [phone] Napping Machine Operator Post Acute Care 02/23/24 Handle Bar Assembler Relationship Specialty Start Date End Date Yoav Chakraborty MD PCP - General Family Medicine 10/04/12 Joss Hammond MD [address] [place], [place] [address]21 Physician Radiation Oncology 09/06/20 Elle Herrera LISW [address] [address] Musical String Maker Oncology 09/11/20 Arnie Galvin APRN.DRYING ROOM OPERATOR [address] [place] [address] Referring Internal Medicine 02/20/24 Yoav Chakraborty MD [address] [place] [address] Home Care Provider Family Medicine 02/22/24 eDlicia Lazo, PT [address] [place] [address] Napping Machine Operator Post Acute Care 02/22/24 Skyler Delatorre, RN [address] [place] [address] Napping Machine Operator Post Acute Care 02/23/24 Handle Bar Assembler Relationship Specialty Start Date End Date Yoav Chakraborty MD PCP - General Family Medicine 10/04/12 Joss Hammond MD [address] [place] [address] Physician Radiation Oncology 09/06/20 Elle Herrera LISW [address] [address] Musical String Maker Oncology 09/11/20 Arnie Galvin, EARLY YEARS TEACHER.DRYING ROOM OPERATOR [address] [place] [address] Referring Internal Medicine 02/20/24 Yoav Chakraborty MD [address] [place] [address] Home Care Provider Family Medicine 02/22/24 Delicia Lazo, PT [address] [place] [address] Napping Machine Operator Post Acute Care 02/22/24 Handle Bar Assembler Relationship Specialty Start Date End Date Yoav Chakraborty MD PCP - General Family Medicine 10/04/12 Joss Hammond MD [address] [place], [place] [address] Physician Radiation Oncology 09/06/20 Elle Herrera LIS[facility] [address] [address] Musical String Maker Oncology 09/11/20 Arnie Galvin, ELISA.DRYING ROOM OPERATOR [address] [place] [address] Referring Internal Medicine 02/20/24 Yoav Chakraborty MD [address] [place] [address] [phone] Home Care Provider Family Medicine 02/22/24 Delicia Lazo, PT [address] [place] [address] Napping Machine Operator Post Acute Care 02/22/24 Handle Bar Assembler Relationship Specialty Start Date End Date Yoav Chakraborty MD PCP - General Family Medicine 10/04/12 Joss Hammond MD [address] [place], [place] [address] Physician Radiation Oncology 09/06/20 Elle Herrera LISW [address] [address] Musical String Maker Oncology 09/11/20 Arnie Galvin APRN.DRYING ROOM OPERATOR [address] [place] [address] Referring Internal Medicine 02/20/24 Yoav Chakraborty MD [address] [place] [address] Home Care Provider Family Medicine 02/22/24 Delicia Lazo, PT [address] [place] [address] Napping Machine Operator Post Acute Care 02/22/24 Handle Bar Assembler Relationship Specialty Start Date End Date Yoav Chakraborty MD PCP - General Family Medicine 10/04/12 Joss Hammond MD [address] [place], [place] [address]21 Physician Radiation Oncology 09/06/20 Elle Herrera, SHEETER HELPER [address] [address] Musical String Maker Oncology 09/11/20 Arnie Galvin, ELISA.DRYING ROOM OPERATOR [address] [place] [address] Referring Internal Medicine 02/20/24 Yoav Chakraborty MD [address] [place] [address] Home Care Provider Family Medicine 02/22/24 Delicia Lazo, PT [address] [place] [address] Napping Machine Operator Post Acute Care 02/22/24 Handle Bar Assembler Relationship Specialty Start Date End Date Yoav Chakraborty MD PCP - General Family Medicine 10/04/12 Joss Hammond MD [address] [facility] [place] [address] Physician Radiation Oncology 09/06/20 Elle Herrera LISW [address] [address] Musical String Maker Oncology 09/11/20 Arnie Galvin APRN.DRYING ROOM OPERATOR [address] [place] [address] Referring Internal Medicine 02/20/24 Yoav Chakraborty MD [facility] [address] Home Care Provider Family Medicine 02/22/24 Delicia Lazo, PT [address] [place] [address] Napping Machine Operator Post Acute Care 02/22/24 Handle Bar Assembler Relationship Specialty Start Date End Date Yoav Chakraborty MD PCP - General Family Medicine 10/04/12 Joss Hammond MD [address] [place] [address] Physician Radiation Oncology 09/06/20 Elle Herrera LISW [address] [address] Musical String Maker Oncology 09/11/20 Arnie Galvin APRN.DRYING ROOM OPERATOR [address] [place] [address] Referring Internal Medicine 02/20/24 Yoav Chakraborty MD [facility] [address] [address] Home Care Provider Family Medicine 02/22/24 Handle Bar Assembler Relationship Specialty Start Date End Date Yoav Chakraborty MD PCP - General Family Medicine 10/04/12 Joss Hammond MD [address] [place] [address] Physician Radiation Oncology 09/06/20 Elle Herrera LISW [address] [address] Musical String Maker Oncology 09/11/20 Arnie Galvin APRN.DRYING ROOM OPERATOR [address] [place] [address] Referring Internal Medicine 02/20/24 Yoav Chakraborty MD [address] [place] [address] Home Care Provider Family Medicine 02/22/24 Handle Bar Assembler Relationship Specialty Start Date End Date Yoav Chakraborty MD PCP - General Family Medicine 10/04/12 Joss Hammond MD [address] [place] [address] Physician Radiation Oncology 09/06/20 Elle Herrera LISW [address] [address] Musical String Maker Oncology 09/11/20 Arnie Galvin, ELISA.DRYING ROOM OPERATOR [address] [place] [address] Referring Internal Medicine 02/20/24 Yoav Chakraborty MD [address] [address] Home Care Provider Family Medicine 02/22/24 Handle Bar Assembler Relationship Specialty Start Date End Date Yoav Chakraborty MD PCP - General Family Medicine 10/04/12 Joss Hammond MD [address] [place], [place] [address]53141 Physician Radiation Oncology 09/06/20 Elle Herrera [place] [address] [address] Musical String Maker Oncology 09/11/20 Arnie Galvin APRN.DRYING ROOM OPERATOR [address] [place] [address] Referring Internal Medicine 02/20/24 Yoav Chakraborty MD [address] [address] Home Care Provider Family Medicine 02/22/24 Handle Bar Assembler Relationship Specialty Start Date End Date Yoav Chakraborty MD PCP - General Family Medicine 10/04/12 Joss Hammond MD [address] [facility] [address] [place], [place] [address]171 Physician Radiation Oncology 09/06/20 Elle Herrera [place] [address] [address] Musical String Maker Oncology 09/11/20 Arnie Galvin APRN.DRYING ROOM OPERATOR [address] [place] [address] Referring Internal Medicine 02/20/24 Yoav Chakraborty MD [address] [address] Home Care Provider Family Medicine 02/22/24 Handle Bar Assembler Relationship Specialty Start Date End Date Yoav Chakraborty MD PCP - General Family Medicine 10/04/12 Joss Hammond MD [address] [facility], [place] [address] Physician Radiation Oncology 09/06/20 [place] [address] [address] Musical String Maker Oncology 09/11/20 Handle Bar Assembler Relationship Specialty Start Date End Date Yoav Chakraborty MD PCP - General Family Medicine 10/04/12 Joss Hammond MD [address] [place] [address] Physician Radiation Oncology 09/06/20 Elle Herrera [place] [address] [address] Musical String Maker Oncology 09/11/20 Arnie Galvin APRN.CNP [address] [place] [address] Referring Internal Medicine 02/20/24 Yoav Chakraborty MD [address] [address] Home Care Provider Family Medicine 02/22/24 Delicia Lazo, PT [address] [place] [address] Napping Machine Operator Post Acute Care 02/22/24 Handle Bar Assembler Relationship Specialty Start Date End Date Yoav Chakraborty MD PCP - General Family Medicine 10/04/12 Joss Hammond MD [address] [facility] [place] [address] Physician Radiation Oncology 09/06/20 Elle Herrera L[facility] [address] [address] Musical String Maker Oncology 09/11/20 Arnie Galvin APRN.DRYING ROOM OPERATOR [address] [place] [address] Referring Internal Medicine 02/20/24 Yoav Chakraborty MD [address] [place] [address] Home Care Provider Family Medicine 02/22/24 Handle Bar Assembler Relationship Specialty Start Date End Date Yoav Chakraborty MD PCP - General Family Medicine 10/04/12 Joss Hammond MD [address] [place] [address] Physician Radiation Oncology 09/06/20 Elle Herrera LIS[facility] [address] [address] Musical String Maker Oncology 09/11/20 Arnie Galvin APRN.DRYING ROOM OPERATOR [address] [place] [address] Referring Internal Medicine 02/20/24 Yoav Chakraborty MD [facility] [address] [phone] Home Care Provider Family Medicine 02/22/24 Handle Bar Assembler Relationship Specialty Start Date End Date Yoav Chakraborty MD PCP - General Family Medicine 10/04/12 Joss Hammond MD [address] [facility] [address] [place], [place] [address]201 Physician Radiation Oncology 09/06/20 Elle Herrera [place] [address] [address] Musical String Maker Oncology 09/11/20 Arnie Galvin APRN.DRYING ROOM OPERATOR [address] [place] [address] Referring Internal Medicine 02/20/24 Yoav Chakraborty MD [address] [place] [address] Home Care Provider Family Medicine 02/22/24 Handle Bar Assembler Relationship Specialty Start Date End Date Yoav Chakraborty MD PCP - General Family Medicine 10/04/12 Joss Hammond MD [address] [facility] [place] [address] Physician Radiation Oncology 09/06/20 Elle Herrera [facility] [address] [address] Musical String Maker Oncology 09/11/20 Arnie Galvin APRN.DRYING ROOM OPERATOR [address] [place] [address] Referring Internal Medicine 02/20/24 Yoav Chakraborty MD [facility] [address] [address] Home Care Provider Family Medicine 02/22/24 Handle Bar Assembler Relationship Specialty Start Date End Date Yoav Chakraborty MD PCP - General Family Medicine 10/04/12 Joss Hammond MD [address] [place] [address] Physician Radiation Oncology 09/06/20 Elle Herrera LISW [address] [address] Musical String Maker Oncology 09/11/20 Arnie Galvin APRN.DRYING ROOM OPERATOR [address] [place] [address] Referring Internal Medicine 02/20/24 Yoav Chakraborty MD [address] [place] [address] Home Care Provider Family Medicine 02/22/24 Handle Bar Assembler Relationship Specialty Start Date End Date Yoav Chakraborty MD PCP - General Family Medicine 10/04/12 Joss Hammond MD [address] [place] [address] Physician Radiation Oncology 09/06/20 Elle Herrera LIS[facility] [address] [address] Musical String Maker Oncology 09/11/20 Arnie Galvin, EARLY YEARS TEACHER.DRYING ROOM OPERATOR [address] [place] [address] Referring Internal Medicine 02/20/24 Yoav Chakraborty MD [facility] [address] [address] Home Care Provider Family Medicine 02/22/24 Handle Bar Assembler Relationship Specialty Start Date End Date Yoav Chakraborty MD PCP - General Family Medicine 10/04/12 Joss Hammond MD [address] [place] [address] Physician Radiation Oncology 09/06/20 Elle Herrera, SHEETER HELPER [address] [address] Musical String Maker Oncology 09/11/20 Arnie Galvin, EARLY YEARS TEACHER.DRYING ROOM OPERATOR [address] [place] [address] Referring Internal Medicine 02/20/24 Yoav Chakraborty MD [address] [place] [address] Home Care Provider Family Medicine 02/22/24 Handle Bar Assembler Relationship Specialty Start Date End Date Yoav Chakraborty MD PCP - General Family Medicine 10/04/12 Joss Hammond MD [address] [facility] [place] [address] Physician Radiation Oncology 09/06/20 Caty Herreranifer [facility] [address] [address] Musical String Maker Oncology 09/11/20 Arnie Galvin, EARLY YEARS TEACHER.DRYING ROOM OPERATOR [address] [place] [address] Referring Internal Medicine 02/20/24 Yoav Chakraborty MD [address] [place] [address] Home Care Provider Family Medicine 02/22/24 Handle Bar Assembler Relationship Specialty Start Date End Date Yoav Chakraborty MD PCP - General Family Medicine 10/04/12 Joss Hammond MD [address] [place] [address] Physician Radiation Oncology 09/06/20 [facility] [address] [address] Musical String Maker Oncology 09/11/20 Arnie Galvin, EARLY YEARS TEACHER.DRYING ROOM OPERATOR [address] [place] [address] Referring Internal Medicine 02/20/24 Yoav Chakraborty MD [address] [place] [address] Home Care Provider Family Medicine 02/22/24 Handle Bar Assembler Relationship Specialty Start Date End Date Yoav Chakraborty MD PCP - General Family Medicine 10/04/12 Joss Hammond MD [address] [place] [address] Physician Radiation Oncology 09/06/20 Elle Herrera [facility] [address] [address] Musical String Maker Oncology 09/11/20 Arnie Galvin APRN.DRYING ROOM OPERATOR [address] [place] [address] Referring Internal Medicine 02/20/24 Yoav Chakraborty MD [facility] [address] [address] Home Care Provider Family Medicine 02/22/24 Handle Bar Assembler Relationship Specialty Start Date End Date Yoav Chakraborty MD PCP - General Family Medicine 10/04/12 Joss Hammond MD [address] [address] Physician Radiation Oncology 09/06/20 Elle Herrera [facility] [address] [address] Musical String Maker Oncology 09/11/20 Arnie Galvin, ELISA.DRYING ROOM OPERATOR [address] [place] [address] Referring Internal Medicine 02/20/24 Yoav Chakraborty MD [facility] [address] [address] Home Care Provider Family Medicine 02/22/24 Goals (unrecognized section and content) Goals may be documented in a n alternate sectionGoals may be documented in an alternate sectionGoals may be documented in an alternate sectionGoals may be documented in an alternate sectionGoals may be documented in an alternate sectionGoals may be documented in an alternate sectionGoals may be documented in an alternate section Inactive Administered Medications - up to 3 most recent administrations Administered Medications (un recognized section and content) Medication Order MAR Action Action Date Dose Rate Site fulvestrant 500 mg injection (FASLODEX) 500 mg, INTRAMUSCULAR, ONCE, 1 dose, On Thu11/13/23 at 1000, Hazardous Chemotherapy Drug: Use appropriate PPE. Refrigerate. Given 11/13/2023 10:01 AM EST 500 mg Buttocks, Left Inactive Administered Medications - up to 3 most recent administrations Medication Order MAR Action Action Date Dose Rate Site fulvestrant 500 mg injection (FASLODEX) 500 mg, INTRAMUSCULAR, ONCE, 1 dose, On Thu12/11/23 at 0930, Hazardous Chemotherapy Drug: Use appropriate PPE. Refrigerate. Given 12/11/2023 9:37 AM EST 500 mg Buttocks, Left Inactive Administered Medications - up to 3 most recent administrations Medication Order MAR Action Action Date Dose Rate Site fulvestrant 500 mg injection (FASLODEX) 500 mg, INTRAMUSCULAR, ONCE, 1 dose, On Thu01/08/24 at 1030, Hazardous Chemotherapy Drug: Use appropriate PPE. Refrigerate. Given 01/08/2024 10:25 AM EDT 500 mg Buttocks, Left FOR RECORDS PERTAINING TO PATIENTS WHO ARE OR HAVE BEEN ENROLLED IN A CHEMICAL DEPENDENCY/SUBSTANCEABUSE PROGRAM, SOME INFORMATION MAY BE OMITTED. This clinical summary was aggregated from multiple sources. Caution should be exercised in using it in the provision of clinical care. This summary normalizes information from multiple sources, and as a consequence, information in this document may materially change the coding, format and clinical context of patient data. In addition, data may be omitted in some cases. CLINICAL DECISIONS SHOULD BE BASED ON THE PRIMARY CLINICAL RECORDS. [facility]. provides no warranty or guarantee of the accuracy or completeness of information in this document.
[2025-09-27 13:46] LABS: Hematocrit 34.4 % (37-47); Hemoglobin 11.0 g/dL (12.0-15.0); Immature Granulocytes Count 0.050 X10^3/uL (0.0-0.0); Mean Corp Hgb Conc 32.0 g/dL (32-36); Mean Corpuscular Volume 97.7 fL (81-99); Mean Platelet Vol. 10.4 fl (6.2-12.0); NRBC Flagged by Analyzer 0 % (0-5); POSITIVE DIFFERENTIAL YES; Platelet Count 238 K/mm3 (150-450); RBC Distribution Width CV 13.6 % (11.6-14.6); RBC Distribution Width SD 48.8 fl (35.1-43.9); Red Blood Count 3.52 M/mm3 (4.2-5.4); White Blood Count 8.6 K/mm3 (4.4-11.0)
[2025-09-27 14:13] LABS: AST(SGOT) 27 U/L (<=31); Alanine Aminotransfer ALT/SGPT 11 U/L (<=34); Albumin, Serum 3.4 g/dL (3.4-4.8); Alkaline Phosphatase 122 U/L (35-104); Anion Gap 10 (7-18); BUN 21 mg/dL (4-19); BUN/Creat Ratio 20.8 RATIO (10-20); Calcium,Total 8.7 mg/dL (7.6-11.0); Carbon Dioxide 25.6 mmol/L (20.0-29.0); Chloride 105 mmol/L (96-106); Estimated Creatinine Clearance 38.36 ml/min (50-250); Globulin 3.8 g/dL (2.2-4.2); Glucose 132 mg/dL (70-99); Potassium 4.8 mmol/L (3.5-5.1)
[2025-09-27 14:27] LABS: Lipase 17 U/L (13-75); Troponin T High Sensitivity 33 ng/L (<=14)
--- NOTE | 2025-09-27 14:40 | RAD_ITS ---
PROCEDURE: CHEST PA AND LATERAL 09/27/2025 REASON FOR EXAM: URI TECHNIQUE: Procedure Code: RADCXR Modality: DX Procedure: CHEST PA AND LATERAL COMPARISON: 01/14/2024 FINDINGS: Hardware: None. Heart: Heart size is mildly enlarged. Mediastinum: The mediastinal contour is stable. Lungs: Diffuse pulmonary vascular congestion. Bibasilar airspace opacities. Bones: The bones are unremarkable. RAD/Chest PA and Lateral IMPRESSION: Mild cardiomegaly and diffuse pulmonary vascular congestion. Possible bibasila r consolidations. [facility]
[2025-09-27 15:44] LABS: Mucous, Urine 0 SEEN /hpf (<or=2+)
[2025-09-27 15:46] LABS: Color, Urine Yellow (Yellow); Glucose, Dipstick Normal (Normal); Ketone-Dipstick Negative (Negative); Leukocyte Esterase-Dipstick Negative /ul (Negative); Nitrite-Dipstick Negative (Negative); Occult Blood-Urine 10 /ul (Negative); Protein-Dipstick 100 mg/dl (Negative); Specific Gravity, Urine 1.010 (1.002-1.030); Urine Bilirubin Dipstick Negative (Negative)
[2025-09-27 15:56] LABS: Troponin T High Sens 2 HR 31 ng/L (<=14)
[2025-09-27 16:21] LABS: Red Blood Cells-Urine 0-5 SEEN /hpf (0-5); Squamous Epithelial Cells - UA 0-5 SEEN /hpf (5-10)
--- NOTE | 2025-09-27 16:26 | HP.PCM.HOS_ITS ---
HPI - General General Date of Admission: 09/27/25 Date of Service: 09/27/25 Chief Complaint: N/V/D, weakness and debility. HPI Narrative The patient is an 84 y/o F w/ PMHx: Former tobacco use, Anxiety and Depression/mood disorder, Chronic normocytic anemia, PAF, Dementia unclear type with unclear behavioral disturbance history, HTN, Hx Breast CA left-sided invasive ductal carcinoma purportedly stage II, CKD stage III unclear subtype per GFR trending who presents to the [facility] ED on 09/23/2025 with history of onset nausea, emesis and loose stools noted to have been normal yesterday however in the middle the night she woke up with at least 3 episodes of nonbloody bloody nonbilious emesis as well as nonbloody diarrhea with increased significant fatigue and malaise with no associated abdominal pain nor any fevers or chills but given severity of weakness prompted family to bring her to the ED for evaluation. She lives with her niece and nephew. There are some young children in the family who have had low-grade temperatures but no specific nausea, emesis or diarrhea. Workup in the ED included T99, heart rate 68, BP 177/50, respiratory rate 18, 96% on room air, patient reportedly dropped while sleeping into the 80s and 2L NC was placed, CBC with WC 8.6, hemoglobin, MCV 97.7, platelet 238 with left shift and lymphopenia, CMP with BUN/creatinine 21/1.0, GFR 56, glucose 132, hepatic profile with alk phos 122 otherwise not marked appearing, troponin 33 with repeat delta 2-hour 31, lipase 17, rapid SARS COVID/influenza/RSV PCR negative, CT A/P with IV contrast w/ with dilated bowel loops with fluid consistent with enterocolitis, age-indeterminate compression fracture of L1 with 80% height loss. In the ED patient ministered 1 L normal saline Zofran 4 mg IV x 1. In the ED attempted to ambulate the patient were undertaken and she was unable to get up at all secondary to weakness. [facility] Medical History (Updated 09/27/25 @ 17:[address] Marlee De La Garza MD) Lymphedema of arm Former tobacco use Chronic kidney disease (CKD), stage 3 Chronic anemia Mood disorder Anxiety and depression Invasive ductal carcinoma of left breast, stage 2 TIA (transient ischemic attack) Atrial fibrillation Dementia Skin cancer Hypertension Home Medications ?Medication ?Instructions ?Recorded ?Last Taken ?Type lisinopril 40 mg tablet (Zestril) 20 mg PO DAILY 12/30 Unknown History olanzapine 5 mg tablet 5 mg PO DAILY 08/05/22 Unkno wn History oxybutynin chloride 5 mg tablet 5 mg PO BID 08/05/22 U nknown History amlodipine 5 mg tablet 5 mg PO DAILY 01/12/24 Unkno wn History citalopram 40 mg tablet 40 mg PO DAILY 01/12/24 Unkn own History cyclobenzaprine 5 mg tablet 5 mg PO QHS 01/12/24 Unkno wn History divalproex 125 mg capsule,delayed 125 mg PO BID Unknown History release sprinkle galantamine 24 mg 24 hr 24 mg PO DAILY 01/12/24 Unkn own History capsule,extended release melatonin 10 mg capsule 10 mg PO QHS 01/12/24 Unknow n History memantine 10 mg tablet 10 mg PO BID 01/12/24 Unknow n History acetaminophen 650 mg/20.3 mL oral 650 mg (20.3 mL) PO Q6H PRN PRN 01/17/24 Unknown Rx solution Pain 1-10 Or Fever #0 mL apixaban 5 mg tablet (Eliquis) 2.5 mg (1/2 x 5 mg) PO BID #1 TAB 01/17/24 Unknown Rx nystatin 100,000 unit/gram topical 1 applic topical BI D #0 grams 01/17/24 Unknown Rx powder ([facility]) Allergy/AdvReac Type Severity Reaction Status Date / Time azithromycin (From Zithromax) AdvReac Severe swell/tingl Verified 09/27/25 12:47 e meperidine (From Demerol) AdvReac Severe numbness/vo Verified 09/27/25 12:47 miting oxytetracycline (From AdvReac Severe swell,tingl Verified 09/27/25 12:47 Terramycin) e Penicillins (PCN) AdvReac Severe swell,tingl Verified 09/27/25 12:47 e propoxyphene (From AdvReac Severe hallucinati Verified 09/27/25 12:47 Darvocet-N) ons Sulfa (Sulfonamide AdvReac Severe welts Verified 09/27/25 12:47 Antibiotics) Family History Father Hypertension Mother Alzheimer disease Diabetes Hypertension Surgical History (Updated 09/27/25 @ 16:[address] Marlee De La Garza MD) Status post hip surgery Hx of tonsillectomy History of hysterectomy Hx of cholecystectomy History of appendectomy Social History (Updated 09/27/25 @ 16:[address] Marlee De La Garza MD) household members: family Smoking Status: Former smoker alcohol intake: never substance use type: does not use ROS ROS Narrative Admission Review of Systems: CONSTITUTIONAL: No weight loss, fever, chills, + akness or fatigue. HEENT: Eyes: No visual loss, blurred vision, double vision or yellow sclerae. Ears, Nose, Throat: No hearing loss, sneezing, congestion, runny nose or sore throat. SKIN: No rash or itching, lesions, wounds except + occasional stage ecchymoses, abrasion CARDIOVASCULAR: No chest pain, chest pressure or chest discomfort, palpitations, edema, orthopnea, syncopal events. RESPIRATORY: No shortness of breath, cough or sputum, wheezing, hemoptysis. GASTROINTESTINAL: + anorexia, nausea, vomiting, diarrhea. No abdominal pain, melena, BRBPR. GENITOURINARY: No dysuria, frequency, urgency or retention. NEUROLOGICAL: + Dementia unclear type with unclear behavior disturbance history. No headache, dizziness, syncope, paralysis, ataxia, numbness or tingling in the extremities, focal weakness, change in bowel or bladder control, seizure. MUSCULOSKELETAL: + muscle, back pain, joint pain or stiffness. HEMATOLOGIC: + Chronic anemia, easy bleeding/bruising. LYMPHATICS: No enlarged nodes. No history of splenectomy. PSYCHIATRIC:+ History of anxiety depression/mood disorder. ENDOCRINOLOGIC: No reports of sweating, cold or heat intolerance. No polyuria or polydipsia. ALLERGIES: No history of asthma, hives, eczema or rhinitis. Patient's Goals Of Care . What would you like to achieve or improve as a result of your hospital stay?: F ventura notes desire to assure she keeps strength or measures taken to work on strength to avoid set back. Vital Signs Vital Signs Vital Signs: 09/27/25 12:42 09/27/25 14:42 09/27/25 16:00 Temperature 99 F Temperature Source Oral Pulse Rate 68 72 72 Respiratory Rate 18 16 16 Blood Pressure 177/50 H 103/59 L 108/60 Blood Pressure Mean 92 73 76 Pulse Ox 96 98 97 Oxygen Delivery Method Room Air Weight Weight: 154 lb 1.65 oz Body Mass Index (BMI) 28.1 Physical Exam Narrative Physical Examination: General: Awake, alert, oriented to self, place and recent events, remains cooperative, laying in the ED bed, notably flat affect, soft-spoken, ill- appearing. Skin: Normal color, normal turgor, no icterus, no cyanosis except occasional stage ecchymoses, abrasion. HEENT: AT/NC, EOMI, PERRLA, dry MM, no carotid bruits or JVD noted. Lungs: Mildly diminished, greater bases, poor effort, no evidence of any distress, no rales, ronchi or wheezing. Heart: Regular rate and rhythm; no gallop, rub audible. Abdomen: Soft, NTTP, no evidence of any distention, hyperactive BS, no appreciated HSM. Extremities: No cyanosis, no clubbing, mild bilateral ankle 1+ pitting edema. Neurological: Patient awake, alert, oriented as noted, cognitive function currently baseline although patient does have underlying dementia history, pupils equally reactive to light and accommodation, cranial nerves grossly normal, moving all 4 extremities, no focal deficits, strength severely globally decreased. Psychiatric: Affect appears flat, fatigued, ill-appearing, no acute evidence of depressive or anxiety feelings but does have underlying history. Results Lab / Micro Data 09/27/25 13:30 09/27/25 13:30 Labs: Laboratory Results - last 24 hr 09/27/25 13:30: WBC 8.6, RBC 3.52 L, Hgb 11.0 L, Hct 34.4 L, MCV 97.7, MCH 31.3, MCHC 32.0, RDW Std Deviation 48.8 H, RDW Coeff of Jina 13.6, Plt Count 238, MPV 10.4, Immature Gran % (Auto) 0.600, Neut % (Auto) 90.3 H, Lymph % (Auto) 4.3 L, [place] % (Auto) 4.6, Eos % (Auto) 0.0, Baso % (Auto) 0.2, Absolute Neuts (auto) 7.8 H, Absolute Lymphs (auto) 0.37 L, Nucleated RBC % 0, Sodium 141, Potassium 4.8, Chloride 105, Carbon Dioxide 25.6, Anion Gap 10, BUN 21 H, Creatinine 1.00, Estim Creat Clear Calc 38.36 L, Est GFR (MDRD) Non-Af 56 L, BUN/Creatinine Ratio 20.8 H, Glucose 132 H, Calcium 8.7, Total Bilirubin 0.35, AST 27, ALT 11, A lkaline Phosphatase 122 H, Troponin T High Sens 33 H, Total Protein 7.2, Albumin 3.4, Globulin 3.8, Albumin/Globulin Ratio 0.9, Lipase 17 09/27/25 14:15: Lactic Acid < 1.0 09/27/25 15:30: Troponin T Hi Sens 2 Hr 31 H 09/27/25 15:40: Urine Color Yellow, Urine Clarity Clear, Urine pH 7.0, Ur Specific [place] 1.010, Urine Protein 100 H, Urine Glucose (UA) Normal, Urine Ketones Negative, Urine Occult Blood 10 H, Urine Nitrite Negative, Urine Bilirubin Negative, Urine Urobilinogen 1 H, Ur Leukocyte Esterase Negative, Urine RBC 0-5 SEEN, Urine WBC 0-5 SEEN, Ur Squamous Epith Cells 0-5 SEEN, Urine Bacteria RARE, Urine Mucus 0 SEEN Micro: Microbiology 09/27/25 13:42 Mucosa - Nose SARS-CoV-2, Influenza & RSV (PCR) - Final Imaging Radiology Impression Abdomen/Pelvis CT 09/27/25 13:29 IMPRESSION: Dilated bowel loops with fluid consistent with enterocolitis. Age-indeterminate compression fracture of L1 with 80% height loss. Please correlate with clinical history, focal tenderness or MRI lumbar spine. Reading Location: [facility] Chest X-Ray 09/27/25 14:40 IMPRESSION: Mild cardiomegaly and diffuse pulmonary vascular congestion. Possible bibasilar consolidations. Reading [facility] Assessment & Plan Assessment/Plan (1) Nausea, vomiting and diarrhea: PLAN: Plan The patient is an 84 y/o F w/ PMHx: Former tobacco use, Anxiety and Depression/mood disorder, Chronic normocytic anemia, PAF, Dementia unclear type with unclear behavioral disturbance history, HTN, Hx Breast CA left-sided invasive ductal carcinoma purportedly stage II, CKD stage III unclear subtype per GFR trending who presents to the [facility] ED on 09/23/2025 with history of onset nausea, emesis and loose stools noted to have been normal yesterday however in the middle the night she woke up with at least 3 episodes of nonbloody bloody nonbilious emesis as well as nonbloody diarrhea with increased significant fatigue and malaise with no associated abdominal pain nor any fevers or chills but given severity of weakness prompted family to bring her to the ED for evaluation. #1. Debility, fatigue, adult failure to thrive secondary to N/V/D, suspected acute gastroenteritis, likely viral with CT imaging consistent with enterocolitis with ED noted acute hypoxia when patient fell asleep, uncertain if may related to undiagnosed FLORIAN or potential aspiration with her bouts of emesis: Will admit to medical surgical floor, continue judicious hydration, will obtain c diff, stool cx to be cautious, will trend CBC, procalcitonin requested. If enteric pathogen and C. difficile negative will initiate loperamide regimen. Will not start antibiotics at this time given unclear source pending stool studies as may be viral gastroenteritis. Will maintain on clears with IV PPI until improving and advance oral intake as tolerated. Anti-emetics, pain regimen PRN. Mag, phos requested. Full respiratory panel pending. Will obtain CXR in AM to assure no developing PNA given possible aspiration with emesis bouts. Additionally, given there been so many cases of influenza A with similar symptoms although the rapid was negative will obtain the full panel to be cautious. PT/OT/case management consulted for discharge planning. Given how debilitated the patient is in the ED she would certainly be extensive high risk to return to home setting, suspect she may need skilled or transitional component at discharge. #2. Indeterminate cardiac enzyme of unclear significance: Admission troponin 33, troponin 2-hour delta 31, EKG with sinus rhythm with no acute evidence of ischemia, suspect likely demand given her acute presentation, at this time will defer further cardiac enzyme testing, magnesium level requested. #3. Age-indeterminate compression fracture L1: Patient with imaging with incidentally noted age-indeterminate compression fracture of L1 with an 80% height loss however she is having no pain or tenderness of note, encouraged continued evaluation outpatient with primary care physician, PT/OT/case management consulted for discharge planning. #4. Dementia unclear type with unclear behavioral disturbance history: Complicates presentation, will continue patient home memantine, galantamine home regimen, maintain on fall precautions, PT/OT/case management consulted for discharge planning. #5. Chronic normocytic anemia: Admission hemoglobin 11, MCV 97.7, has vacillated, most recently prior to this on 09/06/2025 hemoglobin noted to be 14.1 at that time however previous to this patient was in the 11 range, unclear current chronicity given no recent levels, will continue to trend CBC to determine. #6. Chronic Kidney Disease Stage III per GFR trending, unclear symptom: Admission BUN/Cr 21/1.0, GFR 56, baseline renal function noted previously primarily to be 1.0-1.1, repeat BMP in AM. #7. Hypertension: Continue home regimen including amlodipine, lisinopril with hold parameters as needed, PRN hydralazine. #8. Anxiety and depression/mood disorder: Will continue patient home psychiatric regimen including olanzapine, citalopram, divalproex home regimen, encourage continued follow-up outpatient and evaluation as previously arranged. #9. History of breast cancer: Left-sided invasive ductal carcinoma stage II purportedly, unclear previous interventions, reportedly in remission, encourage follow-up as previously arranged as needed. #10. PAF: Will continue patient home Eliquis regimen. Per current list does not appear to be any rate or rhythm agents. #11. Former tobacco use: Encourage continued tobacco cessation. #12. DVT prophylaxis: Will continue patient home Eliquis regimen. #13. CODE status: Patient has her family set up as her guardians. No specific living will is in place. Discussed CODE status at length including difference between FULL code, DNR-CCA and DNR-CC status. Following discussions about the differences in these status, requested DNR-CCA, no intubation status. Advanced Care Planning Face to Face Time: 16 minutes. Charges/Coding Visit Charges Inpatient E&M: 02541 Init Hosp L3 Procedures Hospitalists Procedures: 59253 Advncd Care Plan 30 Min
--- NOTE | 2025-09-27 16:55 | CASEMGMT ---
Care Management Face to Face with patient for initial transition planning/care coordination assessment in the ED.? This editorial writer introduced self and role at [facility]. Patient alert and oriented x 1. Patients daughter willing to participate in assessment and is able to answer all questions appropriately.? Care providers, pharmacy, and demographics verified. Admitting Diagnosis: Nausea/Vomiting/Diarrhea Other diagnosis history: ?Dementia, Skin cancer, CKD, hypertension PCP: ?Chirag Specialists: ?OncologistRahul Preferred Pharmacy: [facility] Insurance: ?MMO Medicare Prescription Benefit: ?yes Living Will/HPOA: ?patients daughter has legal guardianship of person and estate LNOK: ?daughter, Svetlana Living Arrangements: ?patients grandson and family live with patient.? Family provides all ADL and IADL care.? Patient is able to ambulate with walker and feeds self.? Transportation: ?family transport DME: walker, wheelchair, grab bars, blood pressure cuff, shower chair, bedside commode. HHC: used in the past SNF/Rehab: ?[facility] Community Resources: ?none Behavioral Health History: anxiety, depression Patient goals: Patient wishes to discharge home, denies need for home health care at this time. Patient denies any further needs or concerns at this time. Disposition Plan: admission to acute; RN CM/SW to follow for discharge planning needs that may arise. Dyana Coulter, GROOVING LATHE TENDER, MATERIAL HANDLING WAREHOUSE SUPERVISOR
--- OUTSIDE RECORDS SUMMARY | 2025-09-27 16:56 | XMS RPT_ITS | CCD ---
Author Organization [facility]formerly [facility] Partnership [facility] Care Team Providers Care Communications Media Professor Name Role Phone Yoav Chakraborty MD Primary Care Provider Manish LI MD, Daesung Unavailable Elle Do Unavailable Unavailable Primary Care Provider Unavailabl e Yoav Chakraborty MD Primary Care Provider Manish IL MD, Daesung Unavailable Elle Do Unavailable Dr. Yoav Chakraborty Primary Care Provider Kings PLASTIC EYE TECHNICIAN, PLASTIC EYE TECHNICIAN-C Dorys Attending Provider Unav ailable Dr. Andreas Moctezuma Attending Provider Manish LI, Joss Unavailable Dr. Yoav Chakraborty Primary Care Provider Dr. Chacho Epperson Emergency Provider Dr. Howard Fragoso Admit Provider Dr. Howard Fragoso Attending Provider Dr. Howard Fragoso Other Provider Dr. David Morgan Other Provider Dr. Dani Jaramillo Attending Provider Dr. Dani Jaramillo Other Provider Yoav Chakraborty MD Primary Care Provider Norberto DATA MIGRATION CONSULTANT.ROBOTICS MECHANIC, Arnie Unavailable Yoav Chakraborty MD Unavailable [phone] Violet PT, Delicia Unavailable Skyler Delatorre RN Unavailable VENKAT JEREZ Admitting Unavailable HERMES RICHARDSON Attending Unavailable CHAKRABORTY, YOAV B Primary Care Unavailable Yoav Chakraborty MD Unavailable [phone] Connor Kay Chi Attending Unavailable Chakraborty, Yoav [...] Attending Unavailable Norberto PÉREZ.AFSHIN, Arnie Page Unavailable [phone] ALI, LEONID IMMANUEL Referring Unavailable CHAKRABORTY, YOAV [...] sources) Azithromycin Drug Allergy 08-03-20 20 Swelling [facility] Work Phone: Opioid Agonists (10 sources) Propoxyphene Drug Allergy 12-09-19 12 Mental Status Change, Vomiting [facility] Penicillins (antibiotic) (5 sources) Penicillins Drug Allergy 02-16-20 08 [facility] Sulfonamides (antibiotic) (5 sources) Sulfonamides (Antibiotic) Drug Allergy 02-16-20 08 [facility] Tetracyclines (antibiotic) (5 sources) Oxytetracycline Drug Allergy 02-16-20 08 [facility] (20 sources) Azithromycin; Translations: [AZITHROMYCIN] Drug Allergy 08-03-20 20 Swelling [facility] Work Phone: (20 sources) Meperidine; Translations: [MEPERIDINE (PF)] Drug Allergy 12-09-19 12 Vomiting [facility] (20 sources) Oxytetracycline; Translations: [OXYTETRACYCLINE] Drug Allergy 02-16-20 08 swell,tingle [facility] (12 sources) Penicillins; Translations: [PENICILLINS] Propensity to adverse reactions 02-16-20 08 [facility] (20 sources) Propoxyphene; Translations: [PROPOXYPHENE] Drug Allergy 09-17-20 20 Mental Status Change [facility] (20 sources) Sulfonamides (Antibiotic); Translations: [SULFA (SULFONAMIDE ANTIBIOTICS)] Propensity to adverse reactions 02-16-20 08 [facility] (20 sources) Propoxyphene N-Acetaminophen; Translations: [PROPOXYPHENE N-ACETAMINOPHEN] Drug Intolerance 12-09-19 12 Mental Status Change [facility] (20 sources) Penicillins Propensity to adverse reactions 02-16-20 08 [facility] (7 sources) Acetaminophen Drug Allergy 08-05-20 22 hallucinations [facility] (8 sources) Meperidine Drug Allergy 08-05-20 numbness/vomitin g [facility] (8 sources) Penicillins Propensity to adverse reactions 08-05-20 22 swell,tingle [facility] (8 sources) Sulfonamides (Antibiotic) Propensity to adverse reactions 08-05-20 welts [facility] (1 source) Azithromycin Drug Allergy 01-12-20 24 [facility] Repository (1 source) Meperidine Drug Allergy 01-12-20 24 [facility] (1 source) Oxytetracycline Drug Allergy 01-12-20 24 [facility] Repository (1 source) Penicillins Drug allergy (disorder) 01-12-20 24 [facility] Rep[facility] (1 source) Propoxyphene Drug Allergy 01-12-20 24 [facility] Rep[facility] (1 source) Sulfonamides (Antibiotic) Drug allergy (disorder) 01-12-20 24 [facility] Repository (9 sources) Penicillins Propensity to adverse reactions 02-16-20 08 [facility] Medications Current Medications Medication Drug Class(es) Dates [...] Active Start: 08-18-2022 take 1 capsule by [facility] once daily, then take 1 capsule [...] 12:00am Start: 08-16-2022 take 1 tablet by fiath th once daily at bedtime melatonin 3 mg tablet Take 3 mg by mouth daily at bedtime. 0 08/16/2022 Active Comment on above: Take 3 mg by mouth d aily at bedtime. memantine hydrochloride 10 mg oral tablet (20 sources) J-eanrrt-W-aspartate Receptor Antagonist Start: 01-12-2024 take 10 mg [...] Start: 08-16-2022 take 1 capsule by mo [facility] twice daily divalproex sprinkle (DEPAKOTE SPRINKLES) 125 [...] by mouth three times daily Hydrocodone-Aceta minophen ([employer] 5-325 Tablet) 1 EACH tablet Discontinued 1 [...] OTC Iron Start: 11-24-2019 Iron Active Fe bruhoven 2019 12:00am OTC Iron Start: 11-24-2019 Iron [...] (4 sources) Patient encounter status; Translations: [Other jail (current) drug therapy] Episodic Other aftercare (1 [...] Basophils (Bld) [#/Vol] 0.05 10*3/uL Normal <0.11 [facility] Comment on above: Order Comment: iHlary ocampo Type: BLOOD SPECIMEN Ordering Facility: [facility] Address: [address] [place] [address] Performed By: #### 5 7021-8 #### [facility] CLIA [id number] [address] [place] Basophils/100 WBC (Bld) 0.6 % Normal [facility] Comment on above: Order Comment: Justyni men Type: BLOOD SPECIMEN Ordering Facility: [facility] Address: [address] [place] [address] Performed By: #### 5 7021-8 #### [facility] CLIA [id number] [address] [place] Differential cell count method Nom (Bld) Auto Normal [facility] Comment on above: Order Comment: Hilary ocampo Type: BLOOD SPECIMEN Ordering Facility: [facility] Address: [address] [place] [address] Performed By: #### 5 7021-8 #### [facility] CLIA [id number] [address] [place] [address] [place] Eosinophils (Bld) [#/Vol] 0.08 10*3/uL Normal <0.46 [facility] Comment on above: Order Comment: Speci men Type: BLOOD SPECIMEN Ordering Facility: [facility] Address: [address] [place] [address] Performed By: #### 5 7021-8 #### [facility] CLIA [id number] [address] [place] Eosinophils/100 WBC (Bld) 1.0 % Normal [facility] Comment on above: Order Comment: Speci men Type: BLOOD SPECIMEN Ordering Facility: [facility] Address: [address] [place] [address] Performed By: #### 5 7021-8 #### [facility] CLIA [id number] [address] Erythrocyte distribution width (RBC) [Ratio] 13.3 % Normal 11.5-15.0 [facility] Comment on above: Order Comment: Speci men Type: BLOOD SPECIMEN Ordering Facility: [facility] Address: [address] [place] [address] Performed By: #### 5 7021-8 #### [facility] CLIA [id number] [address] Hematocrit (Bld) [Volume fraction] 40.5 % Normal 36.0-46.0 [facility] Comment on above: Order Comment: Speci men Type: BLOOD SPECIMEN Ordering Facility: [facility] Address: [address] [place] [address] Performed By: #### 5 7021-8 #### [facility] CLIA [id number] [address] Hemoglobin (Bld) [Mass/Vol] 12.7 g/dL Normal 11.5-15.5 [facility] Comment on above: Order Comment: Speci men Type: BLOOD SPECIMEN Ordering Facility: [facility] Address: [address] [place] [address] Performed By: #### 5 7021-8 #### [facility] CLIA [id number] [address] [place] [address] [place] Immature granulocytes (Bld) [#/Vol] 10*3/uL Normal <0.10 [facility] Comment on above: Order Comment: Speci men Type: BLOOD SPECIMEN Ordering Facility: [facility] Address: [address] [place] [address] Performed By: #### 5 7021-8 #### [facility] CLIA [id number] [address] [place] Immature granulocytes/100 WBC (Bld) 0.3 % Normal [facility] Comment on above: Order Comment: Speci men Type: BLOOD SPECIMEN Ordering Facility: [facility] Address: [address] [place] [address] Performed By: #### 5 7021-8 #### [facility] CLIA [id number] [address] [place] [address] [place] Lymphocytes (Bld) [#/Vol] 2.43 10*3/uL Normal 1.00-4.00 [facility] Comment on above: Order Comment: Speci men Type: BLOOD SPECIMEN Ordering Facility: [facility] Address: [address] [place] [address] Performed By: #### 5 7021-8 #### [facility] CLIA [id number] [address] Lymphocytes/100 WBC (Bld) 30.8 % Normal [facility] Comment on above: Order Comment: Speci men Type: BLOOD SPECIMEN Ordering Facility: [facility] Address: [address] [place] [address] Performed By: #### 5 7021-8 #### [facility] CLIA [id number] [address] [place] [address] [place] MCH (RBC) [Entitic mass] 31.7 pg Normal 26.0-34.0 [facility] Comment on above: Order Comment: Speci men Type: BLOOD SPECIMEN Ordering Facility: [facility] Address: [address] [place] [address] Performed By: #### 5 7021-8 #### [facility] CLIA [id number] [address] [place] [address] [place] MCHC (RBC) [Mass/Vol] 31.4 g/dL Normal 30.5-36.0 [facility] Comment on above: Order Comment: Speci men Type: BLOOD SPECIMEN Ordering Facility: [facility] Address: [address] [place] [address] Performed By: #### 5 7021-8 #### [facility] CLIA [id number] [address] [place] [address] [place] MCV (RBC) [Entitic vol] 101.0 fL High 80.0-100.0 [facility] Comment on above: Order Comment: Speci men Type: BLOOD SPECIMEN Ordering Facility: [facility] Address: [address] [place] [address] Performed By: #### 5 7021-8 #### [facility] CLIA [id number] [address] [place] [address] [place] Monocytes (Bld) [#/Vol] 0.58 10*3/uL Normal <0.87 [facility] Comment on above: Order Comment: Speci men Type: BLOOD SPECIMEN Ordering Facility: [facility] Address: [address] [place] [address] Performed By: #### 5 7021-8 #### [facility] CLIA [id number] [address] Monocytes/100 WBC (Bld) 7.4 % Normal [facility] Comment on above: Order Comment: Speci men Type: BLOOD SPECIMEN Ordering Facility: [facility] Address: [address] [place] [address] Performed By: #### 5 7021-8 #### [facility] CLIA [id number] [address] [place] [address] [place] Neutrophils (Bld) [#/Vol] 4.73 10*3/uL Normal 1.45-7.50 [facility] Comment on above: Order Comment: Speci men Type: BLOOD SPECIMEN Ordering Facility: [facility] Address: [address] [place] [address] Performed By: #### 5 7021-8 #### [facility] CLIA [id number] [address] Neutrophils/100 WBC (Bld) 59.9 % Normal [facility] Comment on above: Order Comment: Speci men Type: BLOOD SPECIMEN Ordering Facility: [facility] Address: [address] [place] [address] Performed By: #### 5 7021-8 #### [facility] CLIA [id number] [address] [place] [address] [place] Nucleated RBC (Bld) [#/Vol] 10*3/uL Normal <0.01 [facility] Comment on above: Order Comment: Speci men Type: BLOOD SPECIMEN Ordering Facility: [facility] Address: [address] [place] [address] Performed By: #### 5 7021-8 #### [facility] CLIA [id number] [address] [place] Nucleated RBC/100 WBC (Bld) [Ratio] 0.0 /100 WBC Normal [facility] Comment on above: Order Comment: Speci men Type: BLOOD SPECIMEN Ordering Facility: [facility] Address: [address] [place] [address] Performed By: #### 5 7021-8 #### [facility] CLIA [id number] [address] [place] Platelet mean volume (Bld) [Entitic vol] 11.2 fL Normal 9.0-12.7 [facility] Comment on above: Order Comment: Speci men Type: BLOOD SPECIMEN Ordering Facility: [facility] Address: [address] [place] [address] Performed By: #### 5 7021-8 #### [facility] CLIA [id number] [address] [place] [address] [place] Platelets (Bld) [#/Vol] 190 10*3/uL Normal 150-400 [facility] Comment on above: Order Comment: Speci men Type: BLOOD SPECIMEN Ordering Facility: [facility] Address: [address] [place] [address] Performed By: #### 5 7021-8 #### [facility] CLIA [id number] [address] [place] RBC (Bld) [#/Vol] 4.01 10*6/uL Normal 3.90-5.20 [facility] Comment on above: Order Comment: Speci men Type: BLOOD SPECIMEN Ordering Facility: [facility] Address: [address] [place] [address] Performed By: #### 5 7021-8 #### [facility] CLIA [id number] [address] OF [facility] WBC (Bld) [#/Vol] 7.89 10*3/uL Normal 3.70-11.00 [facility] Comment on above: Order Comment: Speci men Type: BLOOD SPECIMEN Ordering Facility: [facility] Address: [address] [place] [address] Performed By: #### 5 7021-8 #### [facility] CLIA [id number] [address] Comprehensive metabolic 2000 panelon 08-09-2025 Albumin [Mass/Vol] 3.8 g/dL Low 3.9-4.9 [facility] Comment on above: Order Comment: Speci men Type: BLOOD SPECIMEN Ordering Facility: [facility] Address: [address] [place] [address] Performed By: #### 2 4323-8 #### [facility] CLIA [id number] [address] [place] ALP [Catalytic activity/Vol] 134 U/L High 34-123 [facility] Comment on above: Order Comment: Speci men Type: BLOOD SPECIMEN Ordering Facility: [facility] Address: [address] [place] [address] Performed By: #### 2 4323-8 #### [facility] CLIA [id number] [address] ALT [Catalytic activity/Vol] 12 U/L Normal 7-38 [facility] Comment on above: Order Comment: Speci men Type: BLOOD SPECIMEN Ordering Facility: [facility] Address: [address] [place] [address] Performed By: #### 2 4323-8 #### [facility] CLIA [id number] [address] STATES OF [facility] Anion gap [Moles/Vol] 12 mmol/L Normal 8-15 [facility] Comment on above: Order Comment: Speci men Type: BLOOD SPECIMEN Ordering Facility: [facility] Address: [address] [place] [address] Performed By: #### 2 4323-8 #### [facility] CLIA [id number] [address] [place] AST [Catalytic activity/Vol] 20 U/L Normal 13-35 [facility] Comment on above: Order Comment: Speci men Type: BLOOD SPECIMEN Ordering Facility: [facility] Address: [address] [place] [address] Performed By: #### 2 4323-8 #### [facility] CLIA [id number] [address] [place] Bilirubin [Mass/Vol] 0.3 mg/dL Normal 0.2-1.3 [facility] Comment on above: Order Comment: Speci men Type: BLOOD SPECIMEN Ordering Facility: [facility] Address: [address] [place] [address] Performed By: #### 2 4323-8 #### [facility] CLIA [id number] [address] OF [facility] Calcium [Mass/Vol] 9.2 mg/dL Normal 8.5-10.2 [facility] Comment on above: Order Comment: Speci men Type: BLOOD SPECIMEN Ordering Facility: [facility] Address: [facility] [place] [address] Performed By: #### 2 4323-8 #### [facility] CLIA [id number] [address] STATES OF [facility] Chloride [Moles/Vol] 105 mmol/L Normal 98-107 [facility] Comment on above: Order Comment: Speci men Type: BLOOD SPECIMEN Ordering Facility: [facility] Address: [address] [place] [address] Performed By: #### 2 4323-8 #### [facility] CLIA [id number] [address] [place] [address] [place] CO2 [Moles/Vol] 25 mmol/L Normal 22-30 [facility] Comment on above: Order Comment: Hilary ocampo Type: BLOOD SPECIMEN Ordering Facility: [facility] Address: [address] [place] [address] Performed By: #### 2 4323-8 #### [facility] CLIA [id number] [address] [place] [address] [place] Creatinine [Mass/Vol] 1.14 mg/dL High 0.58-0.96 [facility] Comment on above: Order Comment: Hilary ocampo Type: BLOOD SPECIMEN Ordering Facility: [facility] Address: [address] [place] [address] Performed By: #### 2 4323-8 #### [facility] CLIA [id number] [address] [place] eGFRcr SerPlBld CKD-EPI 2020 48 mL/min/1.73m??? Low >=60 [facility] Comment on above: Order Comment: Hilary ocampo Type: BLOOD SPECIMEN Ordering Facility: [facility] Address: [address] [place] [address] Result Comment: Patience mated Glomerular Filtration Rate [...] GFR. Performed By: #### 2 4323-8 #### [facility] CLIA [id number] [address] [place] [address] [place] Glucose [Mass/Vol] 98 mg/dL Normal 74-99 [facility] Comment on above: Order Comment: Hilary ocampo Type: BLOOD SPECIMEN Ordering Facility: [facility] Address: [address] [place] [address] Result Comment: The [place] [employer] (ADA) provides guidance for cutoff [...] Standards of Medical Care in Diabetes 2016, [employer] [employer]. Diabetes Care. 2016.39(Suppl 1). Performed By: #### 2 4323-8 #### [facility] CLIA [id number] [address] [place] [address] [place] Potassium [Moles/Vol] 4.5 mmol/L Normal 3.7-5.1 [facility] Comment on above: Order Comment: Speci men Type: BLOOD SPECIMEN Ordering Facility: [facility] Address: [address] [place] [address] Performed By: #### 2 4323-8 #### [facility] CLIA [id number] [address] [place] [address] [place] Protein [Mass/Vol] 7.9 g/dL Normal 6.3-8.0 [facility] Comment on above: Order Comment: Speci men Type: BLOOD SPECIMEN Ordering Facility: [facility] Address: [address] [place] [address] Performed By: #### 2 4323-8 #### [facility] CLIA [id number] [address] [place] [address] [place] Sodium [Moles/Vol] 142 mmol/L Normal 136-144 [facility] Comment on above: Order Comment: Speci men Type: BLOOD SPECIMEN Ordering Facility: [facility] Address: [address] [place] [address] Performed By: #### 2 4323-8 #### [facility] CLIA [id number] [address] [place] [address] [place] Urea nitrogen [Mass/Vol] 24 mg/dL High 7-21 [facility] Comment on above: Order Comment: Speci men Type: BLOOD SPECIMEN Ordering Facility: [facility] Address: [address] [place] [address] Performed By: #### 2 4323-8 #### [facility] CLIA [id number] [address] [place] [address] [place] CBC W Auto Differential pane l (Bld)on 07-12-2025 Basophils (Bld) [#/Vol] 0.04 10*3/uL Normal <0.11 [facility] Comment on above: Order Comment: Speci men Type: BLOOD SPECIMEN Ordering Facility: [facility] Address: [address] [place] [address] Performed By: #### 5 7021-8 #### [facility] CLIA [id number] [address] [place] Basophils/100 WBC (Bld) 0.6 % Normal [facility] Comment on above: Order Comment: Speci men Type: BLOOD SPECIMEN Ordering Facility: [facility] Address: [address] [place] [address] Performed By: #### 5 7021-8 #### [facility] CLIA [id number] [address] [place] [address] [place] [facility] Differential cell count method Nom (Bld) Auto Normal [facility] Comment on above: Order Comment: Speci men Type: BLOOD SPECIMEN Ordering Facility: [facility] Address: [address] [place] [address] Performed By: #### 5 7021-8 #### [facility] CLIA [id number] [address] [place] [address] [place] Eosinophils (Bld) [#/Vol] 0.12 10*3/uL Normal <0.46 [facility] Comment on above: Order Comment: Speci men Type: BLOOD SPECIMEN Ordering Facility: [facility] Address: [address] [place] [address] Performed By: #### 5 7021-8 #### [facility] CLIA [id number] [address] [place] Eosinophils/100 WBC (Bld) 1.9 % Normal [facility] Comment on above: Order Comment: Speci men Type: BLOOD SPECIMEN Ordering Facility: [facility] Address: [address] [place] [address] Performed By: #### 5 7021-8 #### [facility] CLIA [id number] [address] [place] Erythrocyte distribution width (RBC) [Ratio] 13.6 % Normal 11.5-15.0 [facility] Comment on above: Order Comment: Speci men Type: BLOOD SPECIMEN Ordering Facility: [facility] Address: [address] [place] [address] Performed By: #### 5 7021-8 #### [facility] CLIA [id number] [address] [place] Hematocrit (Bld) [Volume fraction] 38.0 % Normal 36.0-46.0 [facility] Comment on above: Order Comment: Speci men Type: BLOOD SPECIMEN Ordering Facility: [facility] Address: [address] [place] [address] Performed By: #### 5 7021-8 #### [facility] CLIA [id number] [address] [place] Hemoglobin (Bld) [Mass/Vol] 12.2 g/dL Normal 11.5-15.5 [facility] Comment on above: Order Comment: Speci men Type: BLOOD SPECIMEN Ordering Facility: [facility] Address: [address] [place] [address] Performed By: #### 5 7021-8 #### [facility] CLIA [id number] [address] OF [facility] Immature granulocytes (Bld) [#/Vol] 0.03 10*3/uL Normal <0.10 [facility] Comment on above: Order Comment: Speci men Type: BLOOD SPECIMEN Ordering Facility: [facility] Address: [address] [place] [address] Performed By: #### 5 7021-8 #### [facility] CLIA [id number] [address] Immature granulocytes/100 WBC (Bld) 0.5 % Normal [facility] Comment on above: Order Comment: Speci men Type: BLOOD SPECIMEN Ordering Facility: [facility] Address: [address] [place] [address] Performed By: #### 5 7021-8 #### [facility] CLIA [id number] [address] Lymphocytes (Bld) [#/Vol] 2.05 10*3/uL Normal 1.00-4.00 [facility] Comment on above: Order Comment: Speci men Type: BLOOD SPECIMEN Ordering Facility: [facility] Address: [address] [place] [address] Performed By: #### 5 7021-8 #### [facility] CLIA [id number] [address] Lymphocytes/100 WBC (Bld) 32.1 % Normal [facility] Comment on above: Order Comment: Speci men Type: BLOOD SPECIMEN Ordering Facility: [facility] Address: [address] [place] [address] Performed By: #### 5 7021-8 #### [facility] CLIA [id number] [address] MCH (RBC) [Entitic mass] 32.0 pg Normal 26.0-34.0 [facility] Comment on above: Order Comment: Speci men Type: BLOOD SPECIMEN Ordering Facility: [facility] Address: [address] [place] [address] Performed By: #### 5 7021-8 #### [facility] CLIA [id number] [address] MCHC (RBC) [Mass/Vol] 32.1 g/dL Normal 30.5-36.0 [facility] Comment on above: Order Comment: Speci men Type: BLOOD SPECIMEN Ordering Facility: [facility] Address: [address] [place] [address] Performed By: #### 5 7021-8 #### [facility] CLIA [id number] [address] MCV (RBC) [Entitic vol] 99.7 fL Normal 80.0-100.0 [facility] Comment on above: Order Comment: Speci men Type: BLOOD SPECIMEN Ordering Facility: [facility] Address: [address] [place] [address] Performed By: #### 5 7021-8 #### [facility] CLIA [id number] [address] [place] [address] [place] Monocytes (Bld) [#/Vol] 0.48 10*3/uL Normal <0.87 [facility] Comment on above: Order Comment: Speci men Type: BLOOD SPECIMEN Ordering Facility: [facility] Address: [address] [place] [address] Performed By: #### 5 7021-8 #### [facility] CLIA [id number] [address] [place] Monocytes/100 WBC (Bld) 7.5 % Normal [facility] Comment on above: Order Comment: Speci men Type: BLOOD SPECIMEN Ordering Facility: [facility] Address: [address] [place] [address] Performed By: #### 5 7021-8 #### [facility] CLIA [id number] [address] [place] [address] [place] Neutrophils (Bld) [#/Vol] 3.66 10*3/uL Normal 1.45-7.50 [facility] Comment on above: Order Comment: Speci men Type: BLOOD SPECIMEN Ordering Facility: [facility] Address: [address] [place] [address] Performed By: #### 5 7021-8 #### [facility] CLIA [id number] [address] [place] Neutrophils/100 WBC (Bld) 57.4 % Normal [facility] Comment on above: Order Comment: Speci men Type: BLOOD SPECIMEN Ordering Facility: [facility] Address: [address] [place] [address] Performed By: #### 5 7021-8 #### [facility] CLIA [id number] [address] [place] [address] [place] Nucleated RBC (Bld) [#/Vol] 10*3/uL Normal <0.01 [facility] Comment on above: Order Comment: Speci men Type: BLOOD SPECIMEN Ordering Facility: [facility] Address: [address] [place] [address] Performed By: #### 5 7021-8 #### [facility] CLIA [id number] [address] [place] [address] [place] Nucleated RBC/100 WBC (Bld) [Ratio] 0.0 /100 WBC Normal [facility] Comment on above: Order Comment: Speci men Type: BLOOD SPECIMEN Ordering Facility: [facility] Address: [address] [place] [address] Performed By: #### 5 7021-8 #### [facility] CLIA [id number] [address] [place] [address] [place] Platelet mean volume (Bld) [Entitic vol] 11.3 fL Normal 9.0-12.7 [facility] Comment on above: Order Comment: Speci men Type: BLOOD SPECIMEN Ordering Facility: [facility] Address: [address] [place] [address] Performed By: #### 5 7021-8 #### [facility] CLIA [id number] [address] [place] [address] [place] Platelets (Bld) [#/Vol] 185 10*3/uL Normal 150-400 [facility] Comment on above: Order Comment: Speci men Type: BLOOD SPECIMEN Ordering Facility: [facility] Address: [address] [place] [address] Performed By: #### 5 7021-8 #### [facility] CLIA [id number] [address] [place] [address] [place] RBC (Bld) [#/Vol] 3.81 10*6/uL Low 3.90-5.20 [facility] Comment on above: Order Comment: Speci men Type: BLOOD SPECIMEN Ordering Facility: [facility] Address: [address] [place] [address] Performed By: #### 5 7021-8 #### [facility] CLIA [id number] [address] [place] [address] [place] WBC (Bld) [#/Vol] 6.38 10*3/uL Normal 3.70-11.00 [facility] Comment on above: Order Comment: Speci men Type: BLOOD SPECIMEN Ordering Facility: [facility] Address: [address] [place] [address] Performed By: #### 5 7021-8 #### [facility] CLIA [id number] [address] [place] Comprehensive metabolic 2000 panelon 07-12-2025 Albumin [Mass/Vol] 3.8 g/dL Low 3.9-4.9 [facility] Comment on above: Order Comment: Speci men Type: BLOOD SPECIMEN Ordering Facility: [facility] Address: [address] [place] [address] Performed By: #### 5 7021-8 #### [facility] CLIA [id number] [address] ALP [Catalytic activity/Vol] 221 U/L High 34-123 [facility] Comment on above: Order Comment: Speci men Type: BLOOD SPECIMEN Ordering Facility: [facility] Address: [address] [place] [address] Performed By: #### 5 7021-8 #### [facility] CLIA [id number] [address] ALT [Catalytic activity/Vol] 26 U/L Normal 7-38 [facility] Comment on above: Order Comment: Speci men Type: BLOOD SPECIMEN Ordering Facility: [facility] Address: [address] [place] [address] Performed By: #### 5 7021-8 #### [facility] CLIA [id number] [address] Anion gap [Moles/Vol] 12 mmol/L Normal 8-15 [facility] Comment on above: Order Comment: Speci men Type: BLOOD SPECIMEN Ordering Facility: [facility] Address: [address] [place] [address] Performed By: #### 5 7021-8 #### [facility] CLIA [id number] [address] [place] [address] [place] AST [Catalytic activity/Vol] 34 U/L Normal 13-35 [facility] Comment on above: Order Comment: Speci men Type: BLOOD SPECIMEN Ordering Facility: [facility] Address: [address] [place] [address] Performed By: #### 5 7021-8 #### [facility] CLIA [id number] [address] [place] [address] [place] Bilirubin [Mass/Vol] 0.4 mg/dL Normal 0.2-1.3 [facility] Comment on above: Order Comment: Speci men Type: BLOOD SPECIMEN Ordering Facility: [facility] Address: [address] [place] [address] Performed By: #### 5 7021-8 #### [facility] CLIA [id number] [address] [place] [address] [place] Calcium [Mass/Vol] 9.2 mg/dL Normal 8.5-10.2 [facility] Comment on above: Order Comment: Speci men Type: BLOOD SPECIMEN Ordering Facility: [facility] Address: [address] [place] [address] Performed By: #### 5 7021-8 #### [facility] CLIA [id number] [address] [place] [address] [place] Chloride [Moles/Vol] 104 mmol/L Normal 98-107 [facility] Comment on above: Order Comment: Speci men Type: BLOOD SPECIMEN Ordering Facility: [facility] Address: [address] [place] [address] Performed By: #### 5 7021-8 #### [facility] CLIA [id number] [address] [place] [address] [place] CO2 [Moles/Vol] 26 mmol/L Normal 22-30 [facility] Comment on above: Order Comment: Speci men Type: BLOOD SPECIMEN Ordering Facility: [facility] Address: [address] [place] [address] Performed By: #### 5 7021-8 #### [facility] CLIA [id number] [address] [place] [address] [place] Creatinine [Mass/Vol] 1.24 mg/dL High 0.58-0.96 [facility] Comment on above: Order Comment: Hilary ocampo Type: BLOOD SPECIMEN Ordering Facility: [facility] Address: [address] [place] [address] Performed By: #### 5 7021-8 #### [facility] CLIA [id number] [address] [place] [address] [place] eGFRcr SerPlBld CKD-EPI 2020 43 mL/min/1.73m??? Low >=60 [facility] Comment on above: Order Comment: Hilary ocampo Type: BLOOD SPECIMEN Ordering Facility: [facility] Address: [address] [place] [address] Result Comment: Patience mated Glomerular Filtration Rate [...] GFR. Performed By: #### 5 7021-8 #### [facility] CLIA [id number] [address] [place] [address] [place] Glucose [Mass/Vol] 86 mg/dL Normal 74-99 [facility] Comment on above: Order Comment: Hilary ocampo Type: BLOOD SPECIMEN Ordering Facility: [facility] Address: [address] [place] [address] Result Comment: The [employer] [employer] (ADA) provides guidance for cutoff [...] Standards of Medical Care in Diabetes 2016, [employer] [employer]. Diabetes Care. 2016.39(Suppl 1). Performed By: #### 5 7021-8 #### [facility] CLIA [id number] [address] Potassium [Moles/Vol] 4.3 mmol/L Normal 3.7-5.1 [facility] Comment on above: Order Comment: Hilary men Type: BLOOD SPECIMEN Ordering Facility: [facility] Address: [address] [place] [address] Performed By: #### 5 7021-8 #### [facility] CLIA [id number] [address] [place] Protein [Mass/Vol] 7.6 g/dL Normal 6.3-8.0 [facility] Comment on above: Order Comment: Justyni men Type: BLOOD SPECIMEN Ordering Facility: [facility] Address: [address] [place] [address] Performed By: #### 5 7021-8 #### [facility] CLIA [id number] [address] Sodium [Moles/Vol] 142 mmol/L Normal 136-144 [facility] Comment on above: Order Comment: Speci men Type: BLOOD SPECIMEN Ordering Facility: [facility] Address: [address] [place] [address] Performed By: #### 5 7021-8 #### [facility] CLIA [id number] [address] Urea nitrogen [Mass/Vol] 21 mg/dL Normal 7-21 [facility] Comment on above: Order Comment: Hilary men Type: BLOOD SPECIMEN Ordering Facility: [facility] Address: [address] [place] [address] Performed By: #### 5 7021-8 #### [facility] CLIA [id number] [address] [place] CNOVSPon 06-15-2025 CNOVSP Visit (SP) Office (HEMMED) JACKELYN BRADSHAW ([id number]) 1940 F Date Time Provider Department 06/15/25 [...] found to be consistent with ER positive/99%, TN +90% and HER2 negative by IHC. The [...] Reviewed b (more content not included)... Normal [facility] CBC W Auto Differential pane l (Bld)on 06-14-2025 Basophils (Bld) [#/Vol] 0.05 10*3/uL Normal <0.11 [facility] Comment on above: Order Comment: Speci men Type: BLOOD SPECIMEN Ordering Facility: [facility] Address: [address] [place] [address] Performed By: #### 5 7021-8 #### [facility] CLIA [id number] [address] [place] [address] [place] Basophils/100 WBC (Bld) 0.8 % Normal [facility] Comment on above: Order Comment: Speci men Type: BLOOD SPECIMEN Ordering Facility: [facility] Address: [address] [place] [address] Performed By: #### 5 7021-8 #### [facility] CLIA [id number] [address] [place] [address] [place] Differential cell count method Nom (Bld) Auto Normal [facility] Comment on above: Order Comment: Speci men Type: BLOOD SPECIMEN Ordering Facility: [facility] Address: [address] [place] [address] Performed By: #### 5 7021-8 #### [facility] CLIA [id number] [address] [place] [address] [place] Eosinophils (Bld) [#/Vol] 0.09 10*3/uL Normal <0.46 [facility] Comment on above: Order Comment: Speci men Type: BLOOD SPECIMEN Ordering Facility: [facility] Address: [address] [place] [address] Performed By: #### 5 7021-8 #### [facility] CLIA [id number] [address] Eosinophils/100 WBC (Bld) 1.4 % Normal [facility] Comment on above: Order Comment: Speci men Type: BLOOD SPECIMEN Ordering Facility: [facility] Address: [address] [place] [address] Performed By: #### 5 7021-8 #### [facility] CLIA [id number] [address] [place] Erythrocyte distribution width (RBC) [Ratio] 13.2 % Normal 11.5-15.0 [facility] Comment on above: Order Comment: Speci men Type: BLOOD SPECIMEN Ordering Facility: [facility] Address: [address] [place] [address] Performed By: #### 5 7021-8 #### [facility] CLIA [id number] [address] [place] Hematocrit (Bld) [Volume fraction] 38.7 % Normal 36.0-46.0 [facility] Comment on above: Order Comment: Speci men Type: BLOOD SPECIMEN Ordering Facility: [facility] Address: [address] [place] [address] Performed By: #### 5 7021-8 #### [facility] CLIA [id number] [address] [place] Hemoglobin (Bld) [Mass/Vol] 12.7 g/dL Normal 11.5-15.5 [facility] Comment on above: Order Comment: Speci men Type: BLOOD SPECIMEN Ordering Facility: [facility] Address: [address] [place] [address] Performed By: #### 5 7021-8 #### [facility] CLIA [id number] [address] [place] Immature granulocytes (Bld) [#/Vol] 10*3/uL Normal <0.10 [facility] Comment on above: Order Comment: Speci men Type: BLOOD SPECIMEN Ordering Facility: [facility] Address: [address] [place] [address] Performed By: #### 5 7021-8 #### [facility] CLIA [id number] [address] Immature granulocytes/100 WBC (Bld) 0.3 % Normal [facility] Comment on above: Order Comment: Speci men Type: BLOOD SPECIMEN Ordering Facility: [facility] Address: [address] [place] [address] Performed By: #### 5 7021-8 #### [facility] CLIA [id number] [address] [place] [address] [place] Lymphocytes (Bld) [#/Vol] 2.21 10*3/uL Normal 1.00-4.00 [facility] Comment on above: Order Comment: Speci men Type: BLOOD SPECIMEN Ordering Facility: [facility] Address: [address] [place] [address] Performed By: #### 5 7021-8 #### [facility] CLIA [id number] [address] Lymphocytes/100 WBC (Bld) 35.2 % Normal [facility] Comment on above: Order Comment: Speci men Type: BLOOD SPECIMEN Ordering Facility: [facility] Address: [address] [place] [address] Performed By: #### 5 7021-8 #### [facility] CLIA [id number] [address] [place] [address] [place] MCH (RBC) [Entitic mass] 31.8 pg Normal 26.0-34.0 [facility] Comment on above: Order Comment: Speci men Type: BLOOD SPECIMEN Ordering Facility: [facility] Address: [address] [place] [address] Performed By: #### 5 7021-8 #### [facility] CLIA [id number] [address] [place] [address] [place] MCHC (RBC) [Mass/Vol] 32.8 g/dL Normal 30.5-36.0 [facility] Comment on above: Order Comment: Speci men Type: BLOOD SPECIMEN Ordering Facility: [facility] Address: [address] [place] [address] Performed By: #### 5 7021-8 #### [facility] CLIA [id number] [address] [place] MCV (RBC) [Entitic vol] 97.0 fL Normal 80.0-100.0 [facility] Comment on above: Order Comment: Speci men Type: BLOOD SPECIMEN Ordering Facility: [facility] Address: [address] [place] [address] Performed By: #### 5 7021-8 #### [facility] CLIA [id number] [address] [place] [address] [place] Monocytes (Bld) [#/Vol] 0.44 10*3/uL Normal <0.87 [facility] Comment on above: Order Comment: Speci men Type: BLOOD SPECIMEN Ordering Facility: [facility] Address: [address] [place] [address] Performed By: #### 5 7021-8 #### [facility] CLIA [id number] [address] Monocytes/100 WBC (Bld) 7.0 % Normal [facility] Comment on above: Order Comment: Speci men Type: BLOOD SPECIMEN Ordering Facility: [facility] Address: [address] [place] [address] Performed By: #### 5 7021-8 #### [facility] CLIA [id number] [address] [place] [address] [facility] [place] Neutrophils (Bld) [#/Vol] 3.47 10*3/uL Normal 1.45-7.50 [facility] Comment on above: Order Comment: Speci men Type: BLOOD SPECIMEN Ordering Facility: [facility] Address: [facility] [place] [address] Performed By: #### 5 7021-8 #### [facility] CLIA [id number] [address] [place] Neutrophils/100 WBC (Bld) 55.3 % Normal [facility] Comment on above: Order Comment: Speci men Type: BLOOD SPECIMEN Ordering Facility: [facility] Address: [address] [place] [address] Performed By: #### 5 7021-8 #### [facility] CLIA [id number] [address] [place] [address] [place] Nucleated RBC (Bld) [#/Vol] 10*3/uL Normal <0.01 [facility] Comment on above: Order Comment: Speci men Type: BLOOD SPECIMEN Ordering Facility: [facility] Address: [address] [place] [address] Performed By: #### 5 7021-8 #### [facility] CLIA [id number] [address] [place] Nucleated RBC/100 WBC (Bld) [Ratio] 0.0 /100 WBC Normal [facility] Comment on above: Order Comment: Speci men Type: BLOOD SPECIMEN Ordering Facility: [facility] Address: [address] [place] [address] Performed By: #### 5 7021-8 #### [facility] CLIA [id number] [address] [place] [address] [place] Platelet mean volume (Bld) [Entitic vol] 11.0 fL Normal 9.0-12.7 [facility] Comment on above: Order Comment: Speci men Type: BLOOD SPECIMEN Ordering Facility: [facility] Address: [address] [place] [address] Performed By: #### 5 7021-8 #### [facility] CLIA [id number] [address] [place] [address] [place] Platelets (Bld) [#/Vol] 205 10*3/uL Normal 150-400 [facility] Comment on above: Order Comment: Speci men Type: BLOOD SPECIMEN Ordering Facility: [facility] Address: [address] [place] [address] Performed By: #### 5 7021-8 #### [facility] CLIA [id number] [address] [facility] RBC (Bld) [#/Vol] 3.99 10*6/uL Normal 3.90-5.20 [facility] Comment on above: Order Comment: Speci men Type: BLOOD SPECIMEN Ordering Facility: [facility] Address: [address] [place] [address] Performed By: #### 5 7021-8 #### [facility] CLIA [id number] [address] WBC (Bld) [#/Vol] 6.28 10*3/uL Normal 3.70-11.00 [facility] Comment on above: Order Comment: Speci men Type: BLOOD SPECIMEN Ordering Facility: [facility] Address: [address] [place] [address] Performed By: #### 5 7021-8 #### [facility] CLIA [id number] [address] Comprehensive metabolic 2000 panelon 06-14-2025 Albumin [Mass/Vol] 3.6 g/dL Low 3.9-4.9 [facility] Comment on above: Order Comment: Speci men Type: BLOOD SPECIMEN Ordering Facility: [facility] Address: [address] [place] [address] Performed By: #### 2 4323-8 #### [facility] CLIA [id number] [address] ALP [Catalytic activity/Vol] 117 U/L Normal 34-123 [facility] Comment on above: Order Comment: Speci men Type: BLOOD SPECIMEN Ordering Facility: [facility] Address: [address] [place] [address] Performed By: #### 2 4323-8 #### [facility] CLIA [id number] [address] [place] [address] [place] ALT [Catalytic activity/Vol] 11 U/L Normal 7-38 [facility] Comment on above: Order Comment: Speci men Type: BLOOD SPECIMEN Ordering Facility: [facility] Address: [address] [place] [address] Performed By: #### 2 4323-8 #### [facility] CLIA [id number] [address] [place] [address] [place] Anion gap [Moles/Vol] 11 mmol/L Normal 8-15 [facility] Comment on above: Order Comment: Speci men Type: BLOOD SPECIMEN Ordering Facility: [facility] Address: [address] [place] [address] Performed By: #### 2 4323-8 #### [facility] CLIA [id number] [address] [place] AST [Catalytic activity/Vol] 14 U/L Normal 13-35 [facility] Comment on above: Order Comment: Speci men Type: BLOOD SPECIMEN Ordering Facility: [facility] Address: [address] [place] [address] Performed By: #### 2 4323-8 #### [facility] CLIA [id number] [address] [place] [address] [place] Bilirubin [Mass/Vol] 0.4 mg/dL Normal 0.2-1.3 [facility] Comment on above: Order Comment: Speci men Type: BLOOD SPECIMEN Ordering Facility: [facility] Address: [address] [place] [address] Performed By: #### 2 4323-8 #### [facility] CLIA [id number] [address] [place] Calcium [Mass/Vol] 9.1 mg/dL Normal 8.5-10.2 [facility] Comment on above: Order Comment: Speci men Type: BLOOD SPECIMEN Ordering Facility: [facility] Address: [address] [place] [address] Performed By: #### 2 4323-8 #### [facility] CLIA [id number] [address] [place] [address] [place] Chloride [Moles/Vol] 105 mmol/L Normal 98-107 [facility] Comment on above: Order Comment: Speci men Type: BLOOD SPECIMEN Ordering Facility: [facility] Address: [address] [place] [address] Performed By: #### 2 4323-8 #### [facility] CLIA [id number] [address] [place] [address] [place] CO2 [Moles/Vol] 25 mmol/L Normal 22-30 [facility] Comment on above: Order Comment: Speci men Type: BLOOD SPECIMEN Ordering Facility: [facility] Address: [address] [place] [address] Performed By: #### 2 4323-8 #### [facility] CLIA [id number] [address] [place] [address] [place] Creatinine [Mass/Vol] 1.12 mg/dL High 0.58-0.96 [facility] Comment on above: Order Comment: Speci men Type: BLOOD SPECIMEN Ordering Facility: [facility] Address: [address] [place] [address] Performed By: #### 2 4323-8 #### [facility] CLIA [id number] [address] [place] eGFRcr SerPlBld CKD-EPI 2020 49 mL/min/1.73m??? Low >=60 [facility] Comment on above: Order Comment: Speci men Type: BLOOD SPECIMEN Ordering Facility: [facility] Address: [address] [place] [address] Result Comment: Patience mated Glomerular Filtration Rate [...] #### 2 4323-8 #### [facility] CLIA [id number] [address] [place] [address] [place] Glucose [Mass/Vol] 98 mg/dL Normal 74-99 [facility] Comment on above: Order Comment: Speci men Type: BLOOD SPECIMEN Ordering Facility: [facility] Address: [address] [place], [place] [id number] Result Comment: The [employer] [employer] (ADA) provides guidance for cutoff [...] Standards of Medical Care in Diabetes 2016, [employer] [employer]. Diabetes Care. 2016.39(Suppl 1). Performed By: #### 2 4323-8 #### [facility] CLIA [id number] [address] [place] [address] [place] Potassium [Moles/Vol] 4.0 mmol/L Normal 3.7-5.1 [facility] Comment on above: Order Comment: Hilary ocampo Type: BLOOD SPECIMEN Ordering Facility: [facility] Address: [address] [place] [address] Performed By: #### 2 4323-8 #### [facility] CLIA [id number] [address] [place] [address] [place] Protein [Mass/Vol] 7.5 g/dL Normal 6.3-8.0 [facility] Comment on above: Order Comment: Hilary ocampo Type: BLOOD SPECIMEN Ordering Facility: [facility] Address: [address] [place], [place] [address] Performed By: #### 2 4323-8 #### [facility] CLIA [id number] [address] [place] [address] [place] Sodium [Moles/Vol] 141 mmol/L Normal 136-144 [facility] Comment on above: Order Comment: Hilary ocampo Type: BLOOD SPECIMEN Ordering Facility: [facility] Address: [address] [id number] Performed By: #### 2 4323-8 #### [facility] CLIA [id number] [address] [place] [address] [place] Urea nitrogen [Mass/Vol] 22 mg/dL High 7-21 [facility] Comment on above: Order Comment: Speci men Type: BLOOD SPECIMEN Ordering Facility: [facility] Address: [address] [place] [address] Performed By: #### 2 4323-8 #### [facility] CLIA [id number] [address] [place] CNOVSPon 05-12-2025 CNOVSP Visit (SP) Office (HEMMED) JACKELYN BRADSHAW ([id number]) 1940 F Date Time Provider Department 05/12/25 [...] Status:Closed by LEONID GRAHAM on 05/14/25 Normal [facility] CBC W Auto Differential pane l (Bld)on 05-11-2025 Basophils (Bld) [#/Vol] 0.04 10*3/uL Normal <0.11 [facility] Comment on above: Order Comment: Speci men Type: BLOOD SPECIMEN Ordering Facility: [facility] Address: [address] [place] [address] Performed By: #### 5 7021-8 #### [facility] CLIA [id number] [address] [place] [address] [place] Basophils/100 WBC (Bld) 0.5 % Normal [facility] Comment on above: Order Comment: Speci men Type: BLOOD SPECIMEN Ordering Facility: [facility] Address: [address] [place] [address] Performed By: #### 5 7021-8 #### [facility] CLIA [id number] [address] [place] [address] [place] Differential cell count method Nom (Bld) Auto Normal [facility] Comment on above: Order Comment: Speci men Type: BLOOD SPECIMEN Ordering Facility: [facility] Address: [address] [place] [address] Performed By: #### 5 7021-8 #### [facility] CLIA [id number] [address] [place] [address] [place] Eosinophils (Bld) [#/Vol] 0.13 10*3/uL Normal <0.46 [facility] Comment on above: Order Comment: Speci men Type: BLOOD SPECIMEN Ordering Facility: [facility] Address: [address] [place] [address] Performed By: #### 5 7021-8 #### [facility] CLIA [id number] [address] [place] [address] [place] Eosinophils/100 WBC (Bld) 1.5 % Normal [facility] Comment on above: Order Comment: Speci men Type: BLOOD SPECIMEN Ordering Facility: [facility] Address: [address] [place] [address] Performed By: #### 5 7021-8 #### [facility] CLIA [id number] [address] [place] Erythrocyte distribution width (RBC) [Ratio] 13.3 % Normal 11.5-15.0 [facility] Comment on above: Order Comment: Speci men Type: BLOOD SPECIMEN Ordering Facility: [facility] Address: [address] [place] [address] Performed By: #### 5 7021-8 #### [facility] CLIA [id number] [address] Hematocrit (Bld) [Volume fraction] 40.3 % Normal 36.0-46.0 [facility] Comment on above: Order Comment: Speci men Type: BLOOD SPECIMEN Ordering Facility: [facility] Address: [address] [place] [address] Performed By: #### 5 7021-8 #### [facility] CLIA [id number] [address] [place] Hemoglobin (Bld) [Mass/Vol] 12.7 g/dL Normal 11.5-15.5 [facility] Comment on above: Order Comment: Speci men Type: BLOOD SPECIMEN Ordering Facility: [facility] Address: [address] [place] [address] Performed By: #### 5 7021-8 #### [facility] CLIA [id number] [address] Immature granulocytes (Bld) [#/Vol] 10*3/uL Normal <0.10 [facility] Comment on above: Order Comment: Speci men Type: BLOOD SPECIMEN Ordering Facility: [facility] Address: [address] [place] [address] Performed By: #### 5 7021-8 #### [facility] CLIA [id number] [address] Immature granulocytes/100 WBC (Bld) 0.1 % Normal [facility] Comment on above: Order Comment: Speci men Type: BLOOD SPECIMEN Ordering Facility: [facility] Address: [address] [place] [address] Performed By: #### 5 7021-8 #### [facility] CLIA [id number] [address] Lymphocytes (Bld) [#/Vol] 2.92 10*3/uL Normal 1.00-4.00 [facility] Comment on above: Order Comment: Speci men Type: BLOOD SPECIMEN Ordering Facility: [facility] Address: [address] [place] [address] Performed By: #### 5 7021-8 #### [facility] CLIA [id number] [address] Lymphocytes/100 WBC (Bld) 33.8 % Normal [facility] Comment on above: Order Comment: Speci men Type: BLOOD SPECIMEN Ordering Facility: [facility] Address: [address] [place] [address] Performed By: #### 5 7021-8 #### [facility] CLIA [id number] [address] MCH (RBC) [Entitic mass] 31.7 pg Normal 26.0-34.0 [facility] Comment on above: Order Comment: Speci men Type: BLOOD SPECIMEN Ordering Facility: [facility] Address: [address] [place] [address] Performed By: #### 5 7021-8 #### [facility] CLIA [id number] [address] MCHC (RBC) [Mass/Vol] 31.5 g/dL Normal 30.5-36.0 [facility] Comment on above: Order Comment: Speci men Type: BLOOD SPECIMEN Ordering Facility: [facility] Address: [address] [place] [address] Performed By: #### 5 7021-8 #### [facility] CLIA [id number] [address] MCV (RBC) [Entitic vol] 100.5 fL High 80.0-100.[address] [facility] Comment on above: Order Comment: Speci men Type: BLOOD SPECIMEN Ordering Facility: [facility] Address: [facility] [place] [address] Performed By: #### 5 7021-8 #### [facility] CLIA [id number] [address] [place] [address] [place] Monocytes (Bld) [#/Vol] 0.62 10*3/uL Normal <0.87 [facility] Comment on above: Order Comment: Speci men Type: BLOOD SPECIMEN Ordering Facility: [facility] Address: [address] [place] [address] Performed By: #### 5 7021-8 #### [facility] CLIA [id number] [address] Monocytes/100 WBC (Bld) 7.2 % Normal [facility] Comment on above: Order Comment: Speci men Type: BLOOD SPECIMEN Ordering Facility: [facility] Address: [address] [place] [address] Performed By: #### 5 7021-8 #### [facility] CLIA [id number] [address] [place] [address] [facility] [place] Neutrophils (Bld) [#/Vol] 4.93 10*3/uL Normal 1.45-7.50 [facility] Comment on above: Order Comment: Speci men Type: BLOOD SPECIMEN Ordering Facility: [facility] Address: [address] [place] [address] Performed By: #### 5 7021-8 #### [facility] CLIA [id number] [address] [place] Neutrophils/100 WBC (Bld) 56.9 % Normal [facility] Comment on above: Order Comment: Speci men Type: BLOOD SPECIMEN Ordering Facility: [facility] Address: [address] [place] [address] Performed By: #### 5 7021-8 #### [facility] CLIA [id number] [address] [place] [address] [place] Nucleated RBC (Bld) [#/Vol] 10*3/uL Normal <0.01 [facility] Comment on above: Order Comment: Speci men Type: BLOOD SPECIMEN Ordering Facility: [facility] Address: [address] [place] [address] Performed By: #### 5 7021-8 #### [facility] CLIA [id number] [address] [place] [address] [place] Nucleated RBC/100 WBC (Bld) [Ratio] 0.0 /100 WBC Normal [facility] Comment on above: Order Comment: Speci men Type: BLOOD SPECIMEN Ordering Facility: [facility] Address: [address] [place] [address] Performed By: #### 5 7021-8 #### [facility] CLIA [id number] [address] [place] [address] [place] Platelet mean volume (Bld) [Entitic vol] 10.8 fL Normal 9.0-12.7 [facility] Comment on above: Order Comment: Speci men Type: BLOOD SPECIMEN Ordering Facility: [facility] Address: [address] [place] [address] Performed By: #### 5 7021-8 #### [facility] CLIA [id number] [address] [place] Platelets (Bld) [#/Vol] 217 10*3/uL Normal 150-400 [facility] Comment on above: Order Comment: Speci men Type: BLOOD SPECIMEN Ordering Facility: [facility] Address: [address] [place] [address] Performed By: #### 5 7021-8 #### [facility] CLIA [id number] [address] [place] [address] [place] RBC (Bld) [#/Vol] 4.01 10*6/uL Normal 3.90-5.20 [facility] Comment on above: Order Comment: Speci men Type: BLOOD SPECIMEN Ordering Facility: [facility] Address: [address] [place] [address] Performed By: #### 5 7021-8 #### [facility] CLIA [id number] [address] [place] [address] [place] WBC (Bld) [#/Vol] 8.65 10*3/uL Normal 3.70-11.00 [facility] Comment on above: Order Comment: Speci men Type: BLOOD SPECIMEN Ordering Facility: [facility] Address: [address] [place] [address] Performed By: #### 5 7021-8 #### [facility] CLIA [id number] [address] OF [facility] Comprehensive metabolic 2000 panelon 05-11-2025 Albumin [Mass/Vol] 3.9 g/dL Normal 3.9-4.9 [facility] Comment on above: Order Comment: Speci men Type: BLOOD SPECIMEN Ordering Facility: [facility] Address: [address] [place] [address] Performed By: #### 5 7021-8 #### [facility] CLIA [id number] [address] ALP [Catalytic activity/Vol] 137 U/L High 34-123 [facility] Comment on above: Order Comment: Speci men Type: BLOOD SPECIMEN Ordering Facility: [facility] Address: [address] [place] [address] Performed By: #### 5 7021-8 #### [facility] CLIA [id number] [address] ALT [Catalytic activity/Vol] 11 U/L Normal 7-38 [facility] Comment on above: Order Comment: Speci men Type: BLOOD SPECIMEN Ordering Facility: [facility] Address: [address] [place] [address] Performed By: #### 5 7021-8 #### [facility] CLIA [id number] [address] [place] Anion gap [Moles/Vol] 14 mmol/L Normal 8-15 [facility] Comment on above: Order Comment: Speci men Type: BLOOD SPECIMEN Ordering Facility: [facility] Address: [address] [place] [address] Performed By: #### 5 7021-8 #### [facility] CLIA [id number] [address] [place] [address] [place] AST [Catalytic activity/Vol] 16 U/L Normal 13-35 [facility] Comment on above: Order Comment: Speci men Type: BLOOD SPECIMEN Ordering Facility: [facility] Address: [address] [place] [address] Performed By: #### 5 7021-8 #### [facility] CLIA [id number] [address] [place] [address] [place] Bilirubin [Mass/Vol] 0.4 mg/dL Normal 0.2-1.3 [facility] Comment on above: Order Comment: Speci men Type: BLOOD SPECIMEN Ordering Facility: [facility] Address: [address] [place] [address] Performed By: #### 5 7021-8 #### [facility] CLIA [id number] [address] [place] Calcium [Mass/Vol] 9.3 mg/dL Normal 8.5-10.2 [facility] Comment on above: Order Comment: Speci men Type: BLOOD SPECIMEN Ordering Facility: [facility] Address: [address] [place] [address] Performed By: #### 5 7021-8 #### [facility] CLIA [id number] [address] [place] [address] [place] Chloride [Moles/Vol] 107 mmol/L Normal 98-107 [facility] Comment on above: Order Comment: Speci men Type: BLOOD SPECIMEN Ordering Facility: [facility] Address: [address] [place] [address] Performed By: #### 5 7021-8 #### [facility] CLIA [id number] [address] [place] [address] [place] CO2 [Moles/Vol] 23 mmol/L Normal 22-30 [facility] Comment on above: Order Comment: Speci men Type: BLOOD SPECIMEN Ordering Facility: [facility] Address: [address] [place] [address] Performed By: #### 5 7021-8 #### [facility] CLIA [id number] [address] [place] [address] [place] Creatinine [Mass/Vol] 1.18 mg/dL High 0.58-0.96 [facility] Comment on above: Order Comment: Hilary ocampo Type: BLOOD SPECIMEN Ordering Facility: [facility] Address: [address] [place] [address] Performed By: #### 5 7021-8 #### [facility] CLIA [id number] [address] [place] [address] [place] eGFRcr SerPlBld CKD-EPI 2020 46 mL/min/1.73m??? Low >=60 [facility] Comment on above: Order Comment: Justynisaías ocampo Type: BLOOD SPECIMEN Ordering Facility: [facility] Address: [address] [place] [address] Result Comment: Patience mated Glomerular Filtration Rate [...] GFR. Performed By: #### 5 7021-8 #### [facility] CLIA [id number] [address] [place] [address] [place] Glucose [Mass/Vol] 93 mg/dL Normal 74-99 [facility] Comment on above: Order Comment: Hilary ocampo Type: BLOOD SPECIMEN Ordering Facility: [facility] Address: [address] [place] [address] Result Comment: The [place] [employer] (ADA) provides guidance for cutoff [...] Standards of Medical Care in Diabetes 2016, [place] [employer]. Diabetes Care. 2016.39(Suppl 1). Performed By: #### 5 7021-8 #### [facility] CLIA [id number] [address] Potassium [Moles/Vol] 4.1 mmol/L Normal 3.7-5.1 [facility] Comment on above: Order Comment: Hilary men Type: BLOOD SPECIMEN Ordering Facility: [facility] Address: [address] [place] [address] Performed By: #### 5 7021-8 #### [facility] CLIA [id number] [address] Protein [Mass/Vol] 7.5 g/dL Normal 6.3-8.0 [facility] Comment on above: Order Comment: Hilary ocampo Type: BLOOD SPECIMEN Ordering Facility: [facility] Address: [address] [place] [address] Performed By: #### 5 7021-8 #### [facility] CLIA [id number] [address] Sodium [Moles/Vol] 144 mmol/L Normal 136-144 [facility] Comment on above: Order Comment: Justyni men Type: BLOOD SPECIMEN Ordering Facility: [facility] Address: [address] [place] [address] Performed By: #### 5 7021-8 #### [facility] CLIA [id number] [address] Urea nitrogen [Mass/Vol] 35 mg/dL High 7-21 [facility] Comment on above: Order Comment: Hilary men Type: BLOOD SPECIMEN Ordering Facility: [facility] Address: [address] [place] [address] Performed By: #### 5 7021-8 #### [facility] CLIA [id number] [address] Oliver 04-13-2025 JOSE Telephone ([employer]) JACKELYN BRADSHAW ([id number]) 1940 F Date Time Provider Department 04/13/25 LEONID GRAHAM During your visit today, we recorded the following information about you: Julio Henry 04/13/2025 8:50 AM Signed Patients daughter called into the office. Daughter is asking for labs orders to be placed prior to her mothers injection appointment tomorrow on 04/14/2025. Julio Simms Jennifer R, ELISA.[employer] MECH[employer]IC 04/13/2025 11:37 AM Signed Orders placed. Julio [...] BLOOD COUNT AND DIFFERENTIAL [SQCBCDIF] Order #: [id number] STANDING COMPREHENSIVE METABOLIC PANEL [SQCMP] Order #: [id number] STANDING Prescriptions as of 04/13/2025 - cyclobenzaprine [...] Status:Closed by JULIO HENRY on 04/13/25 Normal [facility] CBC W Auto Differential pane l (Bld)on 03-16-2025 Basophils (Bld) [#/Vol] 0.04 10*3/uL Normal <0.11 [facility] Comment on above: Order Comment: Speci men Type: BLOOD SPECIMEN Ordering Facility: [facility] Address: [address] [place] [address] Performed By: #### 2 4323-8 #### [facility] CLIA [id number] [address] [place] [address] [place] Basophils/100 WBC (Bld) 0.5 % Normal [facility] Comment on above: Order Comment: Speci men Type: BLOOD SPECIMEN Ordering Facility: [facility] Address: [address] [place] [address] Performed By: #### 2 4323-8 #### [facility] CLIA [id number] [address] [place] [address] [place] Differential cell count method Nom (Bld) Auto Normal [facility] Comment on above: Order Comment: Speci men Type: BLOOD SPECIMEN Ordering Facility: [facility] Address: [address] [place] [address] Performed By: #### 2 4323-8 #### [facility] CLIA [id number] [address] [place] [address] [place] Eosinophils (Bld) [#/Vol] 0.13 10*3/uL Normal <0.46 [facility] Comment on above: Order Comment: Speci men Type: BLOOD SPECIMEN Ordering Facility: [facility] Address: [address] [place] [address] Performed By: #### 2 4323-8 #### [facility] CLIA [id number] [address] [place] [address] [place] Eosinophils/100 WBC (Bld) 1.8 % Normal [facility] Comment on above: Order Comment: Speci men Type: BLOOD SPECIMEN Ordering Facility: [facility] Address: [address] [place] [address] Performed By: #### 2 4323-8 #### [facility] CLIA [id number] [address] [place] Erythrocyte distribution width (RBC) [Ratio] 13.4 % Normal 11.5-15.0 [facility] Comment on above: Order Comment: Speci men Type: BLOOD SPECIMEN Ordering Facility: [facility] Address: [address] [place] [address] Performed By: #### 2 4323-8 #### [facility] CLIA [id number] [address] [place] Hematocrit (Bld) [Volume fraction] 37.7 % Normal 36.0-46.0 [facility] Comment on above: Order Comment: Speci men Type: BLOOD SPECIMEN Ordering Facility: [facility] Address: [address] [place] [address] Performed By: #### 2 4323-8 #### [facility] CLIA [id number] [address] [place] Hemoglobin (Bld) [Mass/Vol] 12.1 g/dL Normal 11.5-15.5 [facility] Comment on above: Order Comment: Speci men Type: BLOOD SPECIMEN Ordering Facility: [facility] Address: [address] [place] [address] Performed By: #### 2 4323-8 #### [facility] CLIA [id number] [address] [place] Immature granulocytes (Bld) [#/Vol] 0.03 10*3/uL Normal <0.10 [facility] Comment on above: Order Comment: Speci men Type: BLOOD SPECIMEN Ordering Facility: [facility] Address: [address] [place] [address] Performed By: #### 2 4323-8 #### [facility] CLIA [id number] [address] Immature granulocytes/100 WBC (Bld) 0.4 % Normal [facility] Comment on above: Order Comment: Speci men Type: BLOOD SPECIMEN Ordering Facility: [facility] Address: [address] [place] [address] Performed By: #### 2 4323-8 #### [facility] CLIA [id number] [address] [place] Lymphocytes (Bld) [#/Vol] 2.66 10*3/uL Normal 1.00-4.00 [facility] Comment on above: Order Comment: Speci men Type: BLOOD SPECIMEN Ordering Facility: [facility] Address: [address] [place] [address] Performed By: #### 2 4323-8 #### [facility] CLIA [id number] [address] Lymphocytes/100 WBC (Bld) 36.0 % Normal [facility] Comment on above: Order Comment: Speci men Type: BLOOD SPECIMEN Ordering Facility: [facility] Address: [address] [place] [address] Performed By: #### 2 4323-8 #### [facility] CLIA [id number] [address] MCH (RBC) [Entitic mass] 31.7 pg Normal 26.0-34.0 [facility] Comment on above: Order Comment: Speci men Type: BLOOD SPECIMEN Ordering Facility: [facility] Address: [address] [place] [address] Performed By: #### 2 4323-8 #### [facility] CLIA [id number] [address] [place] MCHC (RBC) [Mass/Vol] 32.1 g/dL Normal 30.5-36.0 [facility] Comment on above: Order Comment: Speci men Type: BLOOD SPECIMEN Ordering Facility: [facility] Address: [address] [place] [address] Performed By: #### 2 4323-8 #### [facility] CLIA [id number] [address] MCV (RBC) [Entitic vol] 98.7 fL Normal 80.0-100.[address] [facility] Comment on above: Order Comment: Speci men Type: BLOOD SPECIMEN Ordering Facility: [facility] Address: [address] [place] [address] Performed By: #### 2 4323-8 #### [facility] CLIA [id number] [address] [place] [address] [place] Monocytes (Bld) [#/Vol] 0.57 10*3/uL Normal <0.87 [facility] Comment on above: Order Comment: Speci men Type: BLOOD SPECIMEN Ordering Facility: [facility] Address: [address] [place] [address] Performed By: #### 2 4323-8 #### [facility] CLIA [id number] [address] [place] [address] [place] Monocytes/100 WBC (Bld) 7.7 % Normal [facility] Comment on above: Order Comment: Speci men Type: BLOOD SPECIMEN Ordering Facility: [facility] Address: [address] [place] [address] Performed By: #### 2 4323-8 #### [facility] CLIA [id number] [address] [place] [address] [place] Neutrophils (Bld) [#/Vol] 3.96 10*3/uL Normal 1.45-7.50 [facility] Comment on above: Order Comment: Speci men Type: BLOOD SPECIMEN Ordering Facility: [facility] Address: [address] [place] [address] Performed By: #### 2 4323-8 #### [facility] CLIA [id number] [address] [place] Neutrophils/100 WBC (Bld) 53.6 % Normal [facility] Comment on above: Order Comment: Speci men Type: BLOOD SPECIMEN Ordering Facility: [facility] Address: [address] [place] [address] Performed By: #### 2 4323-8 #### [facility] CLIA [id number] [address] [place] [address] [place] Nucleated RBC (Bld) [#/Vol] 10*3/uL Normal <0.01 [facility] Comment on above: Order Comment: Speci men Type: BLOOD SPECIMEN Ordering Facility: [facility] Address: [address] [place] [address] Performed By: #### 2 4323-8 #### [facility] CLIA [id number] [address] [place] [address] [place] Nucleated RBC/100 WBC (Bld) [Ratio] 0.0 /100 WBC Normal [facility] Comment on above: Order Comment: Speci men Type: BLOOD SPECIMEN Ordering Facility: [facility] Address: [address] [place] [address] Performed By: #### 2 4323-8 #### [facility] CLIA [id number] [address] [place] [address] [place] Platelet mean volume (Bld) [Entitic vol] 10.7 fL Normal 9.0-12.7 [facility] Comment on above: Order Comment: Speci men Type: BLOOD SPECIMEN Ordering Facility: [facility] Address: [address] [place] [address] Performed By: #### 2 4323-8 #### [facility] CLIA [id number] [address] [place] Platelets (Bld) [#/Vol] 229 10*3/uL Normal 150-400 [facility] Comment on above: Order Comment: Speci men Type: BLOOD SPECIMEN Ordering Facility: [facility] Address: [address] [place] [address] Performed By: #### 2 4323-8 #### [facility] CLIA [id number] [address] [place] RBC (Bld) [#/Vol] 3.82 10*6/uL Low 3.90-5.20 [facility] Comment on above: Order Comment: Speci men Type: BLOOD SPECIMEN Ordering Facility: [facility] Address: [address] [place] [address] Performed By: #### 2 4323-8 #### [facility] CLIA [id number] [address] [place] WBC (Bld) [#/Vol] 7.39 10*3/uL Normal 3.70-11.00 [facility] [facility] Comment on above: Order Comment: Speci men Type: BLOOD SPECIMEN Ordering Facility: [facility] Address: [address] [place] [address] Performed By: #### 2 4323-8 #### [facility] CLIA [id number] [address] [place] [address] [facility] [place] Comprehensive metabolic 2000 panelon 03-16-2025 Albumin [Mass/Vol] 3.6 g/dL Low 3.9-4.9 [facility] Comment on above: Order Comment: Speci men Type: BLOOD SPECIMEN Ordering Facility: [facility] Address: [address] [place] [address] Performed By: #### 5 7021-8 #### [facility] CLIA [id number] [address] [place] [address] [place] ALP [Catalytic activity/Vol] 183 U/L High 34-123 [facility] Comment on above: Order Comment: Speci men Type: BLOOD SPECIMEN Ordering Facility: [facility] Address: [address] [place] [address] Performed By: #### 5 7021-8 #### [facility] CLIA [id number] [address] [place] ALT [Catalytic activity/Vol] 19 U/L Normal 7-38 [facility] Comment on above: Order Comment: Speci men Type: BLOOD SPECIMEN Ordering Facility: [facility] Address: [address] [place] [address] Performed By: #### 5 7021-8 #### [facility] CLIA [id number] [address] Anion gap [Moles/Vol] 10 mmol/L Normal 8-15 [facility] Comment on above: Order Comment: Speci men Type: BLOOD SPECIMEN Ordering Facility: [facility] Address: [address] [place] [address] Performed By: #### 5 7021-8 #### [facility] CLIA [id number] [address] AST [Catalytic activity/Vol] 24 U/L Normal 13-35 [facility] Comment on above: Order Comment: Speci men Type: BLOOD SPECIMEN Ordering Facility: [facility] Address: [address] [place] [address] Performed By: #### 5 7021-8 #### [facility] CLIA [id number] [address] [place] [address] [place] Bilirubin [Mass/Vol] 0.4 mg/dL Normal 0.2-1.3 [facility] Comment on above: Order Comment: Speci men Type: BLOOD SPECIMEN Ordering Facility: [facility] Address: [address] [place] [address] Performed By: #### 5 7021-8 #### [facility] CLIA [id number] [address] [place] Calcium [Mass/Vol] 9.0 mg/dL Normal 8.5-10.2 [facility] Comment on above: Order Comment: Speci men Type: BLOOD SPECIMEN Ordering Facility: [facility] Address: [address] [place] [address] Performed By: #### 5 7021-8 #### [facility] CLIA [id number] [address] [place] Chloride [Moles/Vol] 106 mmol/L Normal 98-107 [facility] Comment on above: Order Comment: Speci men Type: BLOOD SPECIMEN Ordering Facility: [facility] Address: [address] [place] [address] Performed By: #### 5 7021-8 #### [facility] CLIA [id number] [address] [place] CO2 [Moles/Vol] 24 mmol/L Normal 22-30 [facility] Comment on above: Order Comment: Speci men Type: BLOOD SPECIMEN Ordering Facility: [facility] Address: [address] [place] [address] Performed By: #### 5 7021-8 #### [facility] CLIA [id number] [address] [place] Creatinine [Mass/Vol] 1.23 mg/dL High 0.58-0.96 [facility] Comment on above: Order Comment: Speci men Type: BLOOD SPECIMEN Ordering Facility: [facility] Address: [address] [place] [address] Performed By: #### 5 7021-8 #### [facility] CLIA [id number] [address] [place] [address] [place] Creatinine and Glomerular filtration rate.predicted panel (S/P/Bld) 43 mL/min/1.73m??? Low >=60 [facility] Comment on above: Order Comment: Hilary ocampo Type: BLOOD SPECIMEN Ordering Facility: [facility] Address: [address] [place] [address] Result Comment: Patience mated Glomerular Filtration Rate [...] GFR. Performed By: #### 5 7021-8 #### [facility] CLIA [id number] [address] [place] [address] [place] Glucose [Mass/Vol] 92 mg/dL Normal 74-99 [facility] Comment on above: Order Comment: Hilary ocampo Type: BLOOD SPECIMEN Ordering Facility: [facility] Address: [address] [place] [address] Result Comment: The [employer] [employer] (ADA) provides guidance for cutoff [...] Standards of Medical Care in Diabetes 2016, [employer]. Diabetes Care. 2016.39(Suppl 1). Performed By: #### 5 7021-8 #### [facility] CLIA [id number] [address] [place] [address] [place] Potassium [Moles/Vol] 4.2 mmol/L Normal 3.7-5.1 [facility] Comment on above: Order Comment: Speci men Type: BLOOD SPECIMEN Ordering Facility: [facility] Address: [address] [place] [address] Performed By: #### 5 7021-8 #### [facility] CLIA [id number] [address] STATES [facility] Protein [Mass/Vol] 7.4 g/dL Normal 6.3-8.0 [facility] Comment on above: Order Comment: Speci men Type: BLOOD SPECIMEN Ordering Facility: [facility] Address: [address] [place] [address] Performed By: #### 5 7021-8 #### [facility] CLIA [id number] [address] Sodium [Moles/Vol] 140 mmol/L Normal 136-144 [facility] Comment on above: Order Comment: Speci men Type: BLOOD SPECIMEN Ordering Facility: [facility] Address: [address] [place] [address] Performed By: #### 5 7021-8 #### [facility] CLIA [id number] [address] STATES [facility] Urea nitrogen [Mass/Vol] 30 mg/dL High 7-21 [facility] Comment on above: Order Comment: Speci men Type: BLOOD SPECIMEN Ordering Facility: [facility] Address: [address] [place] [address] Performed By: #### 5 7021-8 #### [facility] CLIA [id number] [address] OF [facility] CBC W Auto Differential pane l (Bld)on 02-16-2025 Basophils (Bld) [#/Vol] 0.04 10*3/uL Normal <0.11 [facility] Comment on above: Order Comment: Speci men Type: BLOOD SPECIMEN Ordering Facility: [facility] Address: [address] [place] [address] Performed By: #### 2 4323-8 #### [facility] CLIA [id number] [address] Basophils/100 WBC (Bld) 0.5 % Normal [facility] Comment on above: Order Comment: Speci men Type: BLOOD SPECIMEN Ordering Facility: [facility] Address: [address] [place] [address] Performed By: #### 2 4323-8 #### [facility] CLIA [id number] [address] [place] [address] [place] Differential cell count method Nom (Bld) Auto Normal [facility] Comment on above: Order Comment: Speci men Type: BLOOD SPECIMEN Ordering Facility: [facility] Address: [address] [place] [address] Performed By: #### 2 4323-8 #### [facility] CLIA [id number] [address] [place] [address] [place] Eosinophils (Bld) [#/Vol] 0.10 10*3/uL Normal <0.46 [facility] Comment on above: Order Comment: Speci men Type: BLOOD SPECIMEN Ordering Facility: [facility] Address: [address] [place] [address] Performed By: #### 2 4323-8 #### [facility] CLIA [id number] [address] [place] [address] [place] Eosinophils/100 WBC (Bld) 1.2 % Normal [facility] Comment on above: Order Comment: Speci men Type: BLOOD SPECIMEN Ordering Facility: [facility] Address: [address] [place] [address] Performed By: #### 2 4323-8 #### [facility] CLIA [id number] [address] [place] Erythrocyte distribution width (RBC) [Ratio] 13.6 % Normal 11.5-15.0 [facility] Comment on above: Order Comment: Speci men Type: BLOOD SPECIMEN Ordering Facility: [facility] Address: [address] [place] [address] Performed By: #### 2 4323-8 #### [facility] CLIA [id number] [address] [place] [address] [place] Hematocrit (Bld) [Volume fraction] 37.0 % Normal 36.0-46.0 [facility] Comment on above: Order Comment: Speci men Type: BLOOD SPECIMEN Ordering Facility: [facility] Address: [address] [place] [address] Performed By: #### 2 4323-8 #### [facility] CLIA [id number] [address] [place] Hemoglobin (Bld) [Mass/Vol] 12.0 g/dL Normal 11.5-15.5 [facility] Comment on above: Order Comment: Speci men Type: BLOOD SPECIMEN Ordering Facility: [facility] Address: [address] [place] [address] Performed By: #### 2 4323-8 #### [facility] CLIA [id number] [address] [place] [address] [place] Immature granulocytes (Bld) [#/Vol] 0.03 10*3/uL Normal <0.10 [facility] Comment on above: Order Comment: Speci men Type: BLOOD SPECIMEN Ordering Facility: [facility] Address: [address] [place] [address] Performed By: #### 2 4323-8 #### [facility] CLIA [id number] [address] [place] Immature granulocytes/100 WBC (Bld) 0.4 % Normal [facility] Comment on above: Order Comment: Speci men Type: BLOOD SPECIMEN Ordering Facility: [facility] Address: [address] [place] [address] Performed By: #### 2 4323-8 #### [facility] CLIA [id number] [address] [place] [address] [place] Lymphocytes (Bld) [#/Vol] 2.82 10*3/uL Normal 1.00-4.00 [facility] Comment on above: Order Comment: Speci men Type: BLOOD SPECIMEN Ordering Facility: [facility] Address: [address] [place] [address] Performed By: #### 2 4323-8 #### [facility] CLIA [id number] [address] [place] Lymphocytes/100 WBC (Bld) 35.0 % Normal [facility] Comment on above: Order Comment: Speci men Type: BLOOD SPECIMEN Ordering Facility: [facility] Address: [address] [place] [address] Performed By: #### 2 4323-8 #### [facility] CLIA [id number] [address] MCH (RBC) [Entitic mass] 31.7 pg Normal 26.0-34.0 [facility] Comment on above: Order Comment: Speci men Type: BLOOD SPECIMEN Ordering Facility: [facility] Address: [address] [place] [address] Performed By: #### 2 4323-8 #### [facility] CLIA [id number] [address] MCHC (RBC) [Mass/Vol] 32.4 g/dL Normal 30.5-36.0 [facility] Comment on above: Order Comment: Speci men Type: BLOOD SPECIMEN Ordering Facility: [facility] Address: [address] [place] [address] Performed By: #### 2 4323-8 #### [facility] CLIA [id number] [address] MCV (RBC) [Entitic vol] 97.6 fL Normal 80.0-100.0 [facility] Comment on above: Order Comment: Speci men Type: BLOOD SPECIMEN Ordering Facility: [facility] Address: [address] [place] [address] Performed By: #### 2 4323-8 #### [facility] CLIA [id number] [address] Monocytes (Bld) [#/Vol] 0.59 10*3/uL Normal <0.87 [facility] Comment on above: Order Comment: Speci men Type: BLOOD SPECIMEN Ordering Facility: [facility] Address: [address] [place] [address] Performed By: #### 2 4323-8 #### [facility] CLIA [id number] [address] Monocytes/100 WBC (Bld) 7.3 % Normal [facility] Comment on above: Order Comment: Speci men Type: BLOOD SPECIMEN Ordering Facility: [facility] Address: [address] [place] [address] Performed By: #### 2 4323-8 #### [facility] CLIA [id number] [address] [place] [address] [place] Neutrophils (Bld) [#/Vol] 4.47 10*3/uL Normal 1.45-7.50 [facility] Comment on above: Order Comment: Speci men Type: BLOOD SPECIMEN Ordering Facility: [facility] Address: [address] [place] [address] Performed By: #### 2 4323-8 #### [facility] CLIA [id number] [address] [place] Neutrophils/100 WBC (Bld) 55.6 % Normal [facility] Comment on above: Order Comment: Speci men Type: BLOOD SPECIMEN Ordering Facility: [facility] Address: [address] [place] [address] Performed By: #### 2 4323-8 #### [facility] CLIA [id number] [address] [place] [address] [place] Nucleated RBC (Bld) [#/Vol] 10*3/uL Normal <0.01 [facility] Comment on above: Order Comment: Speci men Type: BLOOD SPECIMEN Ordering Facility: [facility] Address: [address] [place] [address] Performed By: #### 2 4323-8 #### [facility] CLIA [id number] [address] [place] Nucleated RBC/100 WBC (Bld) [Ratio] 0.0 /100 WBC Normal [facility] Comment on above: Order Comment: Speci men Type: BLOOD SPECIMEN Ordering Facility: [facility] Address: [facility] [place] [address] Performed By: #### 2 4323-8 #### [facility] CLIA [id number] [address] [place] Platelet mean volume (Bld) [Entitic vol] 10.8 fL Normal 9.0-12.7 [facility] Comment on above: Order Comment: Speci men Type: BLOOD SPECIMEN Ordering Facility: [facility] Address: [address] [place] [address] Performed By: #### 2 4323-8 #### [facility] CLIA [id number] [address] OF [facility] Platelets (Bld) [#/Vol] 206 10*3/uL Normal 150-400 [facility] Comment on above: Order Comment: Speci men Type: BLOOD SPECIMEN Ordering Facility: [facility] Address: [address] [place] [address] Performed By: #### 2 4323-8 #### [facility] CLIA [id number] [address] [place] RBC (Bld) [#/Vol] 3.79 10*6/uL Low 3.90-5.20 [facility] Comment on above: Order Comment: Speci men Type: BLOOD SPECIMEN Ordering Facility: [facility] Address: [address] [place] [address] Performed By: #### 2 4323-8 #### [facility] CLIA [id number] [address] OF [facility] WBC (Bld) [#/Vol] 8.05 10*3/uL Normal 3.70-11.00 [facility] Comment on above: Order Comment: Speci men Type: BLOOD SPECIMEN Ordering Facility: [facility] Address: [address] [place] [address] Performed By: #### 2 4323-8 #### [facility] CLIA [id number] [address] Comprehensive metabolic 2000 panelon 02-16-2025 Albumin [Mass/Vol] 3.5 g/dL Low 3.9-4.9 [facility] Comment on above: Order Comment: Speci men Type: BLOOD SPECIMEN Ordering Facility: [facility] Address: [address] [place] [address] Performed By: #### 2 4323-8 #### [facility] CLIA [id number] [address] ALP [Catalytic activity/Vol] 108 U/L Normal 34-123 [facility] Comment on above: Order Comment: Speci men Type: BLOOD SPECIMEN Ordering Facility: [facility] Address: [address] [place] [address] Performed By: #### 2 4323-8 #### [facility] CLIA [id number] [address] [place] [address] [place] ALT [Catalytic activity/Vol] 12 U/L Normal 7-38 [facility] Comment on above: Order Comment: Speci men Type: BLOOD SPECIMEN Ordering Facility: [facility] Address: [address] [place] [address] Performed By: #### 2 4323-8 #### [facility] CLIA [id number] [address] Anion gap [Moles/Vol] 11 mmol/L Normal 8-15 [facility] Comment on above: Order Comment: Speci men Type: BLOOD SPECIMEN Ordering Facility: [facility] Address: [address] [place] [address] Performed By: #### 2 4323-8 #### [facility] CLIA [id number] [address] AST [Catalytic activity/Vol] 17 U/L Normal 13-35 [facility] Comment on above: Order Comment: Speci men Type: BLOOD SPECIMEN Ordering Facility: [facility] Address: [address] [place] [address] Performed By: #### 2 4323-8 #### [facility] CLIA [id number] [address] [place] [address] [place] Bilirubin [Mass/Vol] 0.3 mg/dL Normal 0.2-1.3 [facility] Comment on above: Order Comment: Speci men Type: BLOOD SPECIMEN Ordering Facility: [facility] Address: [address] [place] [address] Performed By: #### 2 4323-8 #### [facility] CLIA [id number] [address] [place] Calcium [Mass/Vol] 9.2 mg/dL Normal 8.5-10.2 [facility] Comment on above: Order Comment: Speci men Type: BLOOD SPECIMEN Ordering Facility: [facility] Address: [address] [place] [address] Performed By: #### 2 4323-8 #### [facility] CLIA [id number] [address] [place] [address] [place] Chloride [Moles/Vol] 105 mmol/L Normal 98-107 [facility] Comment on above: Order Comment: Speci men Type: BLOOD SPECIMEN Ordering Facility: [facility] Address: [address] [place] [address] Performed By: #### 2 4323-8 #### [facility] CLIA [id number] [address] [place] CO2 [Moles/Vol] 27 mmol/L Normal 22-30 [facility] Comment on above: Order Comment: Speci men Type: BLOOD SPECIMEN Ordering Facility: [facility] Address: [address] [place] [address] Performed By: #### 2 4323-8 #### [facility] CLIA [id number] [address] [place] [address] [place] Creatinine [Mass/Vol] 1.15 mg/dL High 0.58-0.96 [facility] Comment on above: Order Comment: Speci men Type: BLOOD SPECIMEN Ordering Facility: [facility] Address: [address] [place] [address] Performed By: #### 2 4323-8 #### [facility] CLIA [id number] [address] Creatinine and Glomerular filtration rate.predicted panel (S/P/Bld) 47 mL/min/1.73m??? Low >=60 [facility] Comment on above: Order Comment: Speci men Type: BLOOD SPECIMEN Ordering Facility: [facility] Address: [address] [place] [address] Result Comment: Patience mated Glomerular Filtration Rate [...] GFR. Performed By: #### 2 4323-8 #### [facility] CLIA [id number] [address] [place] [address] [place] Glucose [Mass/Vol] 97 mg/dL Normal 74-99 [facility] Comment on above: Order Comment: Hilary ocampo Type: BLOOD SPECIMEN Ordering Facility: [facility] Address: [address] [place] [address] Result Comment: The [employer] [employer] (ADA) provides guidance for cutoff [...] Standards of Medical Care in Diabetes 2016, [employer] [employer]. Diabetes Care. 2016.39(Suppl 1). Performed By: #### 2 4323-8 #### [facility] CLIA [id number] [address] [place] [address] [place] Potassium [Moles/Vol] 3.8 mmol/L Normal 3.7-5.1 [facility] Comment on above: Order Comment: Hilary ocampo Type: BLOOD SPECIMEN Ordering Facility: [facility] Address: [address] [place] [address] Performed By: #### 2 4323-8 #### [facility] CLIA [id number] [address] [place] [address] [place] Protein [Mass/Vol] 7.1 g/dL Normal 6.3-8.0 [facility] Comment on above: Order Comment: Hilary ocampo Type: BLOOD SPECIMEN Ordering Facility: [facility] Address: [address] [place] [address] Performed By: #### 2 4323-8 #### [facility] CLIA [id number] [address] STATES OF [facility] Sodium [Moles/Vol] 143 mmol/L Normal 136-144 [facility] Comment on above: Order Comment: Speci men Type: BLOOD SPECIMEN Ordering Facility: [facility] Address: [address] [place] [address] Performed By: #### 2 4323-8 #### [facility] CLIA [id number] [address] [place] Urea nitrogen [Mass/Vol] 31 mg/dL High 7-21 [facility] Comment on above: Order Comment: Speci men Type: BLOOD SPECIMEN Ordering Facility: [facility] Address: [address] [place] [address] Performed By: #### 2 4323-8 #### [facility] CLIA [id number] [address] [place] CBC (INCLUDES DIFF/PLT)on Basophils (Bld) [#/Vol] 0.043 10*3/uL Normal 0-200 [facility] Comment on above: Performed By: #### 7 600, 6399, 30255 #### [facility] [place] [address] [employer] Teacher: Jhon Sheets MD Basophils/100 WBC (Bld) 0.5 % Normal [facility] Comment on above: Performed By: #### 7 600, 6399, 60417 #### [facility] [place] [address] [employer] Teacher: Jhon Sheets MD Eosinophils (Bld) [#/Vol] 0.068 10*3/uL Normal 15-500 [facility] Comment on above: Performed By: #### 7 600, 6399, 80138 #### [facility] [place] [address] [employer] Teacher: Jhon Sheets MD Eosinophils/100 WBC (Bld) 0.8 % Normal [facility] Comment on above: Performed By: #### 7 600, 6399, 39656 #### [facility] of [address], [address] [place] [address] [employer] Teacher: Jhon Sheets MD Erythrocyte distribution width (RBC) [Ratio] 13.2 % Normal 11.0-15.0 [facility] Comment on above: Performed By: #### 7 600, 6399, 36430 #### [facility] of [address], [address] [place] [address] [employer] Teacher: Jhon Sheets MD Hematocrit (Bld) [Volume fraction] 41.0 % Normal 35.0-45.0 [facility] Comment on above: Performed By: #### 7 600, 6399, 08984 #### [facility] of [place] [address] [employer] Teacher: Jhon Sheets MD Hemoglobin (Bld) [Mass/Vol] 13.4 g/dL Normal 11.7-15.5 [facility] Comment on above: Performed By: #### 7 600, 6399, 73313 #### [facility] of [place] [address] [employer] Teacher: Jhon Sheets MD Lymphocytes (Bld) [#/Vol] 2.363 10*3/uL Normal 850-3900 [facility] Comment on above: Performed By: #### 7 600, 6399, 93891 #### [facility] of [address], [address] [place] [address] [employer] Teacher: Jhon Sheets MD Lymphocytes/100 WBC (Bld) 27.8 % Normal [facility] Comment on above: Performed By: #### 7 600, 6399, 57186 #### [facility] of [place] [address] [employer] Teacher: Jhon Sheets MD MCH (RBC) [Entitic mass] 32.1 pg Normal 27.0-33.0 [facility] Comment on above: Performed By: #### 7 600, 6399, 85152 #### [facility] of [place] [address] [employer] Teacher: Jhon Sheets MD MCHC (RBC) [Mass/Vol] 32.7 [...] condition. Performed By: #### 7 600, 6399, 61767 #### [facility] [place] [address] [employer] Teacher: Jhon Sheets MD MCV (RBC) [Entitic vol] 98.3 fL Normal 80.0-100.0 [facility] Comment on above: Performed By: #### 7 600, 6399, 84704 #### [facility] [place] [address] [employer] Teacher: Jhon Sheets MD Monocytes (Bld) [#/Vol] 0.519 10*3/uL Normal 200-950 [facility] Comment on above: Performed By: #### 7 600, 6399, 65203 #### [facility] of [place] [address] [employer] Teacher: Jhon Sheets MD Monocytes/100 WBC (Bld) 6.1 % Normal [facility] Comment on above: Performed By: #### 7 600, 6399, 08322 #### [facility] of [place] [address] [employer] Teacher: Jhon Sheets MD Neutrophils (Bld) [#/Vol] 5.508 10*3/uL Normal 2507-5520 [facility] Comment on above: Performed By: #### 7 600, 6399, 33404 #### [facility] of [place] [address] [employer] Teacher: Jhon Sheets MD Neutrophils/100 WBC (Bld) 64.8 % Normal [facility] Comment on above: Performed By: #### 7 600, 6399, 10981 #### [facility] of [address], [address] [place] [address] [employer] Teacher: Jhon Sheets MD Platelet mean volume (Bld) [Entitic vol] 11.3 fL Normal 7.5-12.5 [facility] Comment on above: Performed By: #### 7 600, 6399, 48236 #### [facility] of [address], [address] [place] [address] [employer]kin[employer] Teacher: John Sheets MD Platelets (Bld) [#/Vol] 252 10*3/uL Normal 140-400 [facility] Comment on above: Performed By: #### 7 600, 6399, 32906 #### [facility] of [place] [address] [employer] Teacher: Jhon Sheets MD RBC (Bld) [#/Vol] 4.17 10*6/uL Normal 3.80-5.10 [facility] Comment on above: Performed By: #### 7 600, 6399, 40647 #### [facility] of [place] [address] [employer] Teacher: Jhon Sheets MD WBC (Bld) [#/Vol] 8.5 10*3/uL Normal 3.8-10.8 [facility] Comment on above: Performed By: #### 7 600, 6399, 87581 #### [facility] of [place] [address] [employer] Teacher: Jhon Sheets MD COMPREHENSIVE METABOLIC PANE [facility] 02-08-2025 Albumin [Mass/Vol] 4.0 g/dL Normal 3.6-5.1 [facility] Comment on above: Performed By: #### 7 600, 6399, 64311 #### [facility] of [place] [address] [employer] Teacher: Jhon Sheets MD Albumin/Globulin [Mass ratio] 1.2 {ratio} Normal 1.0-2.5 [facility] Comment on above: Performed By: #### 7 600, 6399, 65140 #### [facility] of [address], [address] [place] [address] [employer]kinder[employer] Teacher: Jhon Sheets MD ALP [Catalytic activity/Vol] 104 U/L Normal 37-153 [facility] Comment on above: Performed By: #### 7 600, 6399, 94249 #### [facility] of [address], [address] [place] [address] [employer]kinder[employer] Teacher: Jhon Sheets MD ALT [Catalytic activity/Vol] 11 U/L Normal 6-29 [facility] Comment on above: Performed By: #### 7 600, 6399, 19240 #### [facility] of [address], [address] [place] [address] [employer]kinder[employer] Teacher: Jhon Sheets MD AST [Catalytic activity/Vol] 16 U/L Normal 10-35 [facility] Comment on above: Performed By: #### 7 600, 6399, 80823 #### [facility] of [address], [address] [place] [address] Prekindergarten Teacher: Jhon Sheets MD Bilirubin [Mass/Vol] 0.4 mg/dL Normal 0.2-1.2 [facility] Comment on above: Performed By: #### 7 600, 6399, 40259 #### [facility] of [place] [address] [employer]kin[employer] Teacher: Jhon Sheets MD Calcium [Mass/Vol] 9.2 mg/dL Normal 8.6-10.4 [facility] Comment on above: Performed By: #### 7 600, 6399, 55161 #### [facility] of [address], [address] [place] [address] [employer]kinder[employer] Teacher: Jhon Sheets MD Chloride [Moles/Vol] 104 mmol/L Normal 98-110 [facility] Comment on above: Performed By: #### 7 600, 6399, 84998 #### [facility] of [place] [address] [employer] Teacher: Jhon Sheets MD CO2 [Moles/Vol] 25 mmol/L Normal 20-32 [facility] Comment on above: Performed By: #### 7 600, 6399, 85012 #### [facility] of [place] [address] [employer] Teacher: Jhon Sheets MD Creatinine [Mass/Vol] 1.24 mg/dL High 0.60-0.[address] [facility] Comment on above: Performed By: #### 7 600, 6399, 40084 #### [facility] of [address], [address] [place] [address] Prekindergarten Teacher: Jhon Sheets MD GFR/1.73 sq M.predicted among non-blacks MDRD (S/P/Bld) [Vol rate/Area] 43 mL/min/{1.73_m2} Low > OR = 60 [facility] Comment on above: Performed By: #### 7 600, 6399, 20876 #### [facility] of [place] [address] [employer]kin[employer] Teacher: Jhon Sheets MD Globulin (S) [Mass/Vol] 3.3 g/dL Normal 1.9-3.7 [facility] Comment on above: Performed By: #### 7 600, 6399, 79008 #### [facility] of [place] [address] [employer]kin[employer] Teacher: Jhon Sheets MD Glucose [Mass/Vol] 96 mg/dL Normal 65-99 [facility] Comment on above: Result Comment: Fasting reference interval Performed By: #### 7 600, 6399, 90876 #### [facility] of [place] [address] Prekindergarten Teacher: Jhon Sheets MD Potassium [Moles/Vol] 4.6 mmol/L Normal 3.5-5.[address] [facility] Comment on above: Performed By: #### 7 600, 6399, 45766 #### [facility] of [place] [address] Prekinder[employer] Teacher: Jhon Sheets MD Protein [Mass/Vol] 7.3 g/dL Normal 6.1-8.1 [facility] Comment on above: Performed By: #### 7 600, 6399, 04617 #### [facility] of [address], [address] [place] [address] Prekindergarten Teacher: Jhon Sheets MD Sodium [Moles/Vol] 141 mmol/L Normal 135-146 [facility] Comment on above: Performed By: #### 7 600, 6399, 37202 #### [facility] of [address], [address] [place] [address] Prekindergarten Teacher: Jhon Sheets MD Urea nitrogen [Mass/Vol] 26 mg/dL High 7- [facility] Comment on above: Performed By: #### 7 600, 6399, 41657 #### [facility] of [address], [address] [place] [address] Prekindergarten Teacher: Jhon Sheets MD Urea nitrogen/Creatinine [Mass ratio] 21 mg/mg Normal 6-22 [facility] Comment on above: Performed By: #### 7 600, 6399, 46615 #### [facility] of [address], [address] [place] [address] Prekindergarten Teacher: Jhon Sheets MD LIPID PANEL, [facility] 05-0 Cholesterol [Mass/Vol] 193 mg/dL Normal <200 [facility] Comment on above: Order Comment: FASTI NG:YES FASTING: YES Performed By: #### 7 600, 6399, 10312 #### [facility] of [address], [address] [place] [address] [employer]kindergarten Teacher: Jhon Sheets MD Cholesterol in HDL [Mass/Vol] 65 mg/dL Normal > OR = 50 [facility] Comment on above: Order Comment: FASTI NG:YES FASTING: YES Performed By: #### 7 600, 6399, 20064 #### [facility] of [address], [address] [place] [address] Prekindergarten Teacher: Jhon Sheets MD Cholesterol in LDL [Mass/Vol] [...] of LDL-C. Jonny SS et al. WILMAN. 2013;310(50): 8208-8121 (http://[email or web address]/faq/CPA113) Performed By: #### 7 600, 6399, 14829 #### [facility] [address], [address] [place] [address] Prekindergarten Teacher: Jhon Sheets MD Cholesterol.total/Sary sterol in HDL [Mass ratio] 3.0 {ratio} Normal <5.0 [facility] Comment on above: Order Comment: FASTI NG:YES FASTING: YES Performed By: #### 7 600, 6399, 14545 #### [facility] [address], [address] [place] [address] Prekindergarten Teacher: Jhon Sheets MD NON HDL CHOLESTEROL 128 mg/dL (calc) Normal <130 [facility] Comment on above: Order Comment: FASTI NG:YES FASTING: YES Result Comment: For patients with diabetes plus 1 major ASCVD risk factor, treating to a non-HDL-C goal of <100 mg/dL (LDL-C of <70 mg/dL) is considered a therapeutic option. Performed By: #### 7 600, 6399, 00225 #### [facility] [address], [address] [place] [address] [employer]kindergarten Teacher: Jhon Sheets MD Triglyceride [Mass/Vol] 104 mg/dL Normal <150 [facility] Comment on above: Order Comment: FASTI NG:YES FASTING: YES Performed By: #### 7 600, 6399, 44922 #### [facility] [address], [address] [place] [address] [employer]kindergarten Teacher: Jhon Sheets MD CNOVSPon 01-20-2025 CNOVSP Visit (SP) Office (HEMMED) LEEANNJACKELYN Mani ([id number]) 1940 F Date Time Provider Department 01/20/25 [...] found to be consistent with ER positive/99%, TN +90% and HER2 negative by IHC. The [...] Cancer [ (more content not included)... Normal [facility] CBC W Auto Differential pane l (Bld)on 01-19-2025 Basophils (Bld) [#/Vol] 0.04 10*3/uL Normal <0.11 [facility] Comment on above: Order Comment: Speci men Type: BLOOD SPECIMEN Ordering Facility: [facility] Address: [address] [place], [place] [address] Performed By: #### 5 7021-8 #### [facility] CLIA [id number] [address] [place] [address] [place] Basophils/100 WBC (Bld) 0.5 % Normal [facility] Comment on above: Order Comment: Speci men Type: BLOOD SPECIMEN Ordering Facility: [facility] Address: [address] [place] [address] Performed By: #### 5 7021-8 #### [facility] CLIA [id number] [address] [place] [address] [place] Differential cell count method Nom (Bld) Auto Normal [facility] Comment on above: Order Comment: Speci men Type: BLOOD SPECIMEN Ordering Facility: [facility] Address: [address] [place] [address] Performed By: #### 5 7021-8 #### [facility] CLIA [id number] [address] [place] [address] [place] Eosinophils (Bld) [#/Vol] 0.16 10*3/uL Normal <0.46 [facility] Comment on above: Order Comment: Speci men Type: BLOOD SPECIMEN Ordering Facility: [facility] Address: [address] [place] [address] Performed By: #### 5 7021-8 #### [facility] CLIA [id number] [address] [place] Eosinophils/100 WBC (Bld) 2.0 % Normal [facility] Comment on above: Order Comment: Speci men Type: BLOOD SPECIMEN Ordering Facility: [facility] Address: [address] [place] [address] Performed By: #### 5 7021-8 #### [facility] CLIA [id number] [address] [place] [address] [place] Erythrocyte distribution width (RBC) [Ratio] 13.5 % Normal 11.5-15.0 [facility] Comment on above: Order Comment: Speci men Type: BLOOD SPECIMEN Ordering Facility: [facility] Address: [address] [place] [address] Performed By: #### 5 7021-8 #### [facility] CLIA [id number] [address] [place] [address] [place] Hematocrit (Bld) [Volume fraction] 39.0 % Normal 36.0-46.0 [facility] Comment on above: Order Comment: Speci men Type: BLOOD SPECIMEN Ordering Facility: [facility] Address: [address] [place] [address] Performed By: #### 5 7021-8 #### [facility] CLIA [id number] [address] [place] [address] [place] Hemoglobin (Bld) [Mass/Vol] 12.5 g/dL Normal 11.5-15.5 [facility] Comment on above: Order Comment: Speci men Type: BLOOD SPECIMEN Ordering Facility: [facility] Address: [address] [place] [address] Performed By: #### 5 7021-8 #### [facility] CLIA [id number] [address] [place] [address] [place] Immature granulocytes (Bld) [#/Vol] 0.03 10*3/uL Normal <0.10 [facility] Comment on above: Order Comment: Speci men Type: BLOOD SPECIMEN Ordering Facility: [facility] Address: [address] [place] [address] Performed By: #### 5 7021-8 #### [facility] CLIA [id number] [address] [place] Immature granulocytes/100 WBC (Bld) 0.4 % Normal [facility] Comment on above: Order Comment: Speci men Type: BLOOD SPECIMEN Ordering Facility: [facility] Address: [address] [place] [address] Performed By: #### 5 7021-8 #### [facility] CLIA [id number] [address] [place] [address] [place] Lymphocytes (Bld) [#/Vol] 2.93 10*3/uL Normal 1.00-4.00 [facility] Comment on above: Order Comment: Speci men Type: BLOOD SPECIMEN Ordering Facility: [facility] Address: [address] [place] [address] Performed By: #### 5 7021-8 #### [facility] CLIA [id number] [address] [place] [address] [place] Lymphocytes/100 WBC (Bld) 37.1 % Normal [facility] Comment on above: Order Comment: Speci men Type: BLOOD SPECIMEN Ordering Facility: [facility] Address: [address] [place] [address] Performed By: #### 5 7021-8 #### [facility] CLIA [id number] [address] [place] MCH (RBC) [Entitic mass] 31.7 pg Normal 26.0-34.0 [facility] Comment on above: Order Comment: Speci men Type: BLOOD SPECIMEN Ordering Facility: [facility] Address: [address] [place] [address] Performed By: #### 5 7021-8 #### [facility] CLIA [id number] [address] MCHC (RBC) [Mass/Vol] 32.1 g/dL Normal 30.5-36.0 [facility] Comment on above: Order Comment: Speci men Type: BLOOD SPECIMEN Ordering Facility: [facility] Address: [address] [place] [address] Performed By: #### 5 7021-8 #### [facility] CLIA [id number] [address] MCV (RBC) [Entitic vol] 99.0 fL Normal 80.0-100.[address] [facility] Comment on above: Order Comment: Speci men Type: BLOOD SPECIMEN Ordering Facility: [facility] Address: [address] [place] [address] Performed By: #### 5 7021-8 #### [facility] CLIA [id number] [address] [place] Monocytes (Bld) [#/Vol] 0.49 10*3/uL Normal <0.87 [facility] Comment on above: Order Comment: Speci men Type: BLOOD SPECIMEN Ordering Facility: [facility] Address: [address] [place] [address] Performed By: #### 5 7021-8 #### [facility] CLIA [id number] [address] [place] Monocytes/100 WBC (Bld) 6.2 % Normal [facility] Comment on above: Order Comment: Speci men Type: BLOOD SPECIMEN Ordering Facility: [facility] Address: [address] [place] [address] Performed By: #### 5 7021-8 #### [facility] CLIA [id number] [address] [place] [address] [place] Neutrophils (Bld) [#/Vol] 4.25 10*3/uL Normal 1.45-7.50 [facility] Comment on above: Order Comment: Speci men Type: BLOOD SPECIMEN Ordering Facility: [facility] Address: [address] [place] [address] Performed By: #### 5 7021-8 #### [facility] CLIA [id number] [address] Neutrophils/100 WBC (Bld) 53.8 % Normal [facility] Comment on above: Order Comment: Speci men Type: BLOOD SPECIMEN Ordering Facility: [facility] Address: [address] [place] [address] Performed By: #### 5 7021-8 #### [facility] CLIA [id number] [address] [place] [address] [place] Nucleated RBC (Bld) [#/Vol] 10*3/uL Normal <0.01 [facility] Comment on above: Order Comment: Speci men Type: BLOOD SPECIMEN Ordering Facility: [facility] Address: [address] [place] [address] Performed By: #### 5 7021-8 #### [facility] CLIA [id number] [address] [place] [address] [facility] [place] Nucleated RBC/100 WBC (Bld) [Ratio] 0.0 /100 WBC Normal [facility] Comment on above: Order Comment: Speci men Type: BLOOD SPECIMEN Ordering Facility: [facility] Address: [address] [place] [address] Performed By: #### 5 7021-8 #### [facility] CLIA [id number] [address] [place] [address] [place] Platelet mean volume (Bld) [Entitic vol] 11.0 fL Normal 9.0-12.7 [facility] Comment on above: Order Comment: Speci men Type: BLOOD SPECIMEN Ordering Facility: [facility] Address: [address] [place] [address] Performed By: #### 5 7021-8 #### [facility] CLIA [id number] [address] [place] [address] [place] Platelets (Bld) [#/Vol] 226 10*3/uL Normal 150-400 [facility] Comment on above: Order Comment: Speci men Type: BLOOD SPECIMEN Ordering Facility: [facility] Address: [address] [place] [address] Performed By: #### 5 7021-8 #### [facility] CLIA [id number] [address] [place] RBC (Bld) [#/Vol] 3.94 10*6/uL Normal 3.90-5.20 [facility] Comment on above: Order Comment: Speci men Type: BLOOD SPECIMEN Ordering Facility: [facility] Address: [address] [place] [address] Performed By: #### 5 7021-8 #### [facility] CLIA [id number] [address] [place] WBC (Bld) [#/Vol] 7.90 10*3/uL Normal 3.70-11.00 [facility] Comment on above: Order Comment: Speci men Type: BLOOD SPECIMEN Ordering Facility: [facility] Address: [address] [place] [address] Performed By: #### 5 7021-8 #### [facility] CLIA [id number] [address] [place] Comprehensive metabolic 2000 panelon 01-19-2025 Albumin [Mass/Vol] 3.5 g/dL Low 3.9-4.9 [facility] Comment on above: Order Comment: Speci men Type: BLOOD SPECIMEN Ordering Facility: [facility] Address: [address] [place] [address] Performed By: #### 2 4323-8 #### [facility] CLIA [id number] [address] [place] [address] [place] ALP [Catalytic activity/Vol] 122 U/L Normal 34-123 [facility] Comment on above: Order Comment: Speci men Type: BLOOD SPECIMEN Ordering Facility: [facility] Address: [address] [place] [address] Performed By: #### 2 4323-8 #### [facility] CLIA [id number] [address] [place] [address] [place] ALT [Catalytic activity/Vol] 13 U/L Normal 7-38 [facility] Comment on above: Order Comment: Speci men Type: BLOOD SPECIMEN Ordering Facility: [facility] Address: [address] [place] [address] Performed By: #### 2 4323-8 #### [facility] CLIA [id number] [address] [place] [address] [place] Anion gap [Moles/Vol] 11 mmol/L Normal 8-15 [facility] Comment on above: Order Comment: Speci men Type: BLOOD SPECIMEN Ordering Facility: [facility] Address: [address] [place] [address] Performed By: #### 2 4323-8 #### [facility] CLIA [id number] [address] [place] AST [Catalytic activity/Vol] 18 U/L Normal 13-35 [facility] Comment on above: Order Comment: Speci men Type: BLOOD SPECIMEN Ordering Facility: [facility] Address: [address] [place] [address] Performed By: #### 2 4323-8 #### [facility] CLIA [id number] [address] [place] [address] [place] Bilirubin [Mass/Vol] 0.3 mg/dL Normal 0.2-1.3 [facility] Comment on above: Order Comment: Speci men Type: BLOOD SPECIMEN Ordering Facility: [facility] Address: [address] [place] [address] Performed By: #### 2 4323-8 #### [facility] CLIA [id number] [address] [place] [address] [place] Calcium [Mass/Vol] 9.3 mg/dL Normal 8.5-10.2 [facility] Comment on above: Order Comment: Speci men Type: BLOOD SPECIMEN Ordering Facility: [facility] Address: [address] [place] [address] Performed By: #### 2 4323-8 #### [facility] CLIA [id number] [address] [place] [address] [place] Chloride [Moles/Vol] 106 mmol/L Normal 98-107 [facility] Comment on above: Order Comment: Speci men Type: BLOOD SPECIMEN Ordering Facility: [facility] Address: [address] [place] [address] Performed By: #### 2 4323-8 #### [facility] CLIA [id number] [address] [place] [address] [place] CO2 [Moles/Vol] 26 mmol/L Normal 22-30 [facility] Comment on above: Order Comment: Speci men Type: BLOOD SPECIMEN Ordering Facility: [facility] Address: [address] [place] [address] Performed By: #### 2 4323-8 #### [facility] CLIA [id number] [address] [place] [address] [place] Creatinine [Mass/Vol] 1.04 mg/dL High 0.58-0.96 [facility] Comment on above: Order Comment: Speci men Type: BLOOD SPECIMEN Ordering Facility: [facility] Address: [address] [place] [address] Performed By: #### 2 4323-8 #### [facility] CLIA [id number] [address] [place] [address] [place] [facility] [place] Creatinine and Glomerular filtration rate.predicted panel (S/P/Bld) 53 mL/min/1.73m??? Low >=60 [facility] Comment on above: Order Comment: Speci men Type: BLOOD SPECIMEN Ordering Facility: [facility] Address: [address] [place] [address] Result Comment: Patience mated Glomerular Filtration Rate [...] GFR. Performed By: #### 2 4323-8 #### [facility] CLIA [id number] [address] [place] [address] [place] Glucose [Mass/Vol] 88 mg/dL Normal 74-99 [facility] Comment on above: Order Comment: Hilary ocampo Type: BLOOD SPECIMEN Ordering Facility: [facility] Address: [address] [place] [address] Result Comment: The [place] [employer] (ADA) provides guidance for cutoff [...] Standards of Medical Care in Diabetes 2016, [place] [employer]. Diabetes Care. 2016.39(Suppl 1). Performed By: #### 2 4323-8 #### [facility] CLIA [id number] [address] [place] Potassium [Moles/Vol] 4.3 mmol/L Normal 3.7-5.1 [facility] Comment on above: Order Comment: Hilary ocampo Type: BLOOD SPECIMEN Ordering Facility: [facility] Address: [address] [place] [id number] Performed By: #### 2 4323-8 #### [facility] CLIA [id number] [address] [place] [address] [place] Protein [Mass/Vol] 6.8 g/dL Normal 6.3-8.0 [facility] Comment on above: Order Comment: Hilary ocampo Type: BLOOD SPECIMEN Ordering Facility: [facility] Address: [address] [place] [id number] Performed By: #### 2 4323-8 #### [facility] CLIA [id number] [address] Sodium [Moles/Vol] 143 mmol/L Normal 136-144 [facility] Comment on above: Order Comment: Speci men Type: BLOOD SPECIMEN Ordering Facility: [facility] Address: [address] [place] [address] Performed By: #### 2 4323-8 #### [facility] CLIA [id number] [address] STATES [facility] Urea nitrogen [Mass/Vol] 19 mg/dL Normal 7-21 [facility] Comment on above: Order Comment: Speci men Type: BLOOD SPECIMEN Ordering Facility: [facility] Address: [address] [place] [address] Performed By: #### 2 4323-8 #### [facility] CLIA [id number] [address] CBC W Auto Differential pane l (Bld)on 12-22-2024 Basophils (Bld) [#/Vol] 10*3/uL Normal <0.11 [facility] Comment on above: Order Comment: Speci men Type: BLOOD SPECIMEN Ordering Facility: [facility] Address: [address] [place] [address] Performed By: #### 2 4323-8 #### [facility] CLIA [id number] [address] Basophils/100 WBC (Bld) 0.2 % Normal [facility] Comment on above: Order Comment: Speci men Type: BLOOD SPECIMEN Ordering Facility: [facility] Address: [address] [place] [address] Performed By: #### 2 4323-8 #### [facility] CLIA [id number] [address] Differential cell count method Nom (Bld) Auto Normal [facility] Comment on above: Order Comment: Speci men Type: BLOOD SPECIMEN Ordering Facility: [facility] Address: [address] [place] [address] Performed By: #### 2 4323-8 #### [facility] CLIA [id number] [address] [place] [address] [place] Eosinophils (Bld) [#/Vol] 0.11 10*3/uL Normal <0.46 [facility] Comment on above: Order Comment: Speci men Type: BLOOD SPECIMEN Ordering Facility: [facility] Address: [address] [place] [address] Performed By: #### 2 4323-8 #### [facility] CLIA [id number] [address] [place] Eosinophils/100 WBC (Bld) 1.4 % Normal [facility] Comment on above: Order Comment: Speci men Type: BLOOD SPECIMEN Ordering Facility: [facility] Address: [address] [place] [address] Performed By: #### 2 4323-8 #### [facility] CLIA [id number] [address] [place] Erythrocyte distribution width (RBC) [Ratio] 13.7 % Normal 11.5-15.0 [facility] Comment on above: Order Comment: Speci men Type: BLOOD SPECIMEN Ordering Facility: [facility] Address: [address] [place] [address] Performed By: #### 2 4323-8 #### [facility] CLIA [id number] [address] Hematocrit (Bld) [Volume fraction] 38.9 % Normal 36.0-46.0 [facility] Comment on above: Order Comment: Speci men Type: BLOOD SPECIMEN Ordering Facility: [facility] Address: [address] [place] [address] Performed By: #### 2 4323-8 #### [facility] CLIA [id number] [address] [place] Hemoglobin (Bld) [Mass/Vol] 12.4 g/dL Normal 11.5-15.5 [facility] Comment on above: Order Comment: Speci men Type: BLOOD SPECIMEN Ordering Facility: [facility] Address: [address] [place] [address] Performed By: #### 2 4323-8 #### [facility] CLIA [id number] [address] [place] [address] [place] Immature granulocytes (Bld) [#/Vol] 10*3/uL Normal <0.10 [facility] Comment on above: Order Comment: Speci men Type: BLOOD SPECIMEN Ordering Facility: [facility] Address: [address] [place] [address] Performed By: #### 2 4323-8 #### [facility] CLIA [id number] [address] [place] [address] [place] Immature granulocytes/100 WBC (Bld) 0.2 % Normal [facility] Comment on above: Order Comment: Speci men Type: BLOOD SPECIMEN Ordering Facility: [facility] Address: [address] [place] [address] Performed By: #### 2 4323-8 #### [facility] CLIA [id number] [address] [place] [address] [place] Lymphocytes (Bld) [#/Vol] 2.61 10*3/uL Normal 1.00-4.00 [facility] Comment on above: Order Comment: Speci men Type: BLOOD SPECIMEN Ordering Facility: [facility] Address: [address] [place] [address] Performed By: #### 2 4323-8 #### [facility] CLIA [id number] [address] Lymphocytes/100 WBC (Bld) 32.2 % Normal [facility] Comment on above: Order Comment: Speci men Type: BLOOD SPECIMEN Ordering Facility: [facility] Address: [address] [place] [address] Performed By: #### 2 4323-8 #### [facility] CLIA [id number] [address] [place] [address] [place] MCH (RBC) [Entitic mass] 31.6 pg Normal 26.0-34.0 [facility] Comment on above: Order Comment: Speci men Type: BLOOD SPECIMEN Ordering Facility: [facility] Address: [address] [place] [address] Performed By: #### 2 4323-8 #### [facility] CLIA [id number] [address] [place] [address] [place] MCHC (RBC) [Mass/Vol] 31.9 g/dL Normal 30.5-36.0 [facility] Comment on above: Order Comment: Speci men Type: BLOOD SPECIMEN Ordering Facility: [facility] Address: [address] [place] [address] Performed By: #### 2 4323-8 #### [facility] CLIA [id number] [address] [place] [address] [place] MCV (RBC) [Entitic vol] 99.0 fL Normal 80.0-100.0 [facility] Comment on above: Order Comment: Speci men Type: BLOOD SPECIMEN Ordering Facility: [facility] Address: [address] [place] [address] Performed By: #### 2 4323-8 #### [facility] CLIA [id number] [address] [place] [address] [place] Monocytes (Bld) [#/Vol] 0.69 10*3/uL Normal <0.87 [facility] Comment on above: Order Comment: Speci men Type: BLOOD SPECIMEN Ordering Facility: [facility] Address: [address] [place] [address] Performed By: #### 2 4323-8 #### [facility] CLIA [id number] [address] Monocytes/100 WBC (Bld) 8.5 % Normal [facility] Comment on above: Order Comment: Speci men Type: BLOOD SPECIMEN Ordering Facility: [facility] Address: [address] [place] [address] Performed By: #### 2 4323-8 #### [facility] CLIA [id number] [address] [place] [address] [place] Neutrophils (Bld) [#/Vol] 4.66 10*3/uL Normal 1.45-7.50 [facility] Comment on above: Order Comment: Speci men Type: BLOOD SPECIMEN Ordering Facility: [facility] Address: [address] [place] [address] Performed By: #### 2 4323-8 #### [facility] CLIA [id number] [address] Neutrophils/100 WBC (Bld) 57.5 % Normal [facility] Comment on above: Order Comment: Speci men Type: BLOOD SPECIMEN Ordering Facility: [facility] Address: [address] [place] [address] Performed By: #### 2 4323-8 #### [facility] CLIA [id number] [address] [place] [address] [place] Nucleated RBC (Bld) [#/Vol] 10*3/uL Normal <0.01 [facility] Comment on above: Order Comment: Speci men Type: BLOOD SPECIMEN Ordering Facility: [facility] Address: [address] [place] [address] Performed By: #### 2 4323-8 #### [facility] CLIA [id number] [address] [place] Nucleated RBC/100 WBC (Bld) [Ratio] 0.0 /100 WBC Normal [facility] Comment on above: Order Comment: Speci men Type: BLOOD SPECIMEN Ordering Facility: [facility] Address: [address] [place] [address] Performed By: #### 2 4323-8 #### [facility] CLIA [id number] [address] [place] Platelet mean volume (Bld) [Entitic vol] 11.4 fL Normal 9.0-12.7 [facility] Comment on above: Order Comment: Speci men Type: BLOOD SPECIMEN Ordering Facility: [facility] Address: [address] [place] [address] Performed By: #### 2 4323-8 #### [facility] CLIA [id number] [address] [place] [address] [place] Platelets (Bld) [#/Vol] 207 10*3/uL Normal 150-400 [facility] Comment on above: Order Comment: Speci men Type: BLOOD SPECIMEN Ordering Facility: [facility] Address: [address] [place] [address] Performed By: #### 2 4323-8 #### [facility] CLIA [id number] [address] [place] RBC (Bld) [#/Vol] 3.93 10*6/uL Normal 3.90-5.20 [facility] Comment on above: Order Comment: Speci men Type: BLOOD SPECIMEN Ordering Facility: [facility] Address: [address] [place] [address] Performed By: #### 2 4323-8 #### [facility] CLIA [id number] [address] WBC (Bld) [#/Vol] 8.11 10*3/uL Normal 3.70-11.00 [facility] Comment on above: Order Comment: Speci men Type: BLOOD SPECIMEN Ordering Facility: [facility] Address: [address] [place] [address] Performed By: #### 2 4323-8 #### [facility] CLIA [id number] [address] Comprehensive metabolic 2000 panelon 12-22-2024 Albumin [Mass/Vol] 3.7 g/dL Low 3.9-4.9 [facility] Comment on above: Order Comment: Speci men Type: BLOOD SPECIMEN Ordering Facility: [facility] Address: [address] [place] [address] Performed By: #### 2 4323-8 #### [facility] CLIA [id number] [address] ALP [Catalytic activity/Vol] 115 U/L Normal 34-123 [facility] Comment on above: Order Comment: Speci men Type: BLOOD SPECIMEN Ordering Facility: [facility] Address: [address] [place] [address] Performed By: #### 2 4323-8 #### [facility] CLIA [id number] [address] ALT [Catalytic activity/Vol] 10 U/L Normal 7-38 [facility] Comment on above: Order Comment: Speci men Type: BLOOD SPECIMEN Ordering Facility: [facility] Address: [address] [place] [address] Performed By: #### 2 4323-8 #### [facility] CLIA [id number] [address] [place] Anion gap [Moles/Vol] 10 mmol/L Normal 8-15 [facility] Comment on above: Order Comment: Speci men Type: BLOOD SPECIMEN Ordering Facility: [facility] Address: [address] [place] [address] Performed By: #### 2 4323-8 #### [facility] CLIA [id number] [address] [place] AST [Catalytic activity/Vol] 16 U/L Normal 13-35 [facility] Comment on above: Order Comment: Speci men Type: BLOOD SPECIMEN Ordering Facility: [facility] Address: [address] [place] [address] Performed By: #### 2 4323-8 #### [facility] CLIA [id number] [address] [place] Bilirubin [Mass/Vol] 0.3 mg/dL Normal 0.2-1.3 [facility] Comment on above: Order Comment: Speci men Type: BLOOD SPECIMEN Ordering Facility: [facility] Address: [address] [place] [address] Performed By: #### 2 4323-8 #### [facility] CLIA [id number] [address] OF [facility] Calcium [Mass/Vol] 9.3 mg/dL Normal 8.5-10.2 [facility] Comment on above: Order Comment: Speci men Type: BLOOD SPECIMEN Ordering Facility: [facility] Address: [address] [place] [address] Performed By: #### 2 4323-8 #### [facility] CLIA [id number] [address] [place] Chloride [Moles/Vol] 106 mmol/L Normal 98-107 [facility] Comment on above: Order Comment: Speci men Type: BLOOD SPECIMEN Ordering Facility: [facility] Address: [address] [place] [address] Performed By: #### 2 4323-8 #### [facility] CLIA [id number] [address] [place] [address] [place] CO2 [Moles/Vol] 27 mmol/L Normal 22-30 [facility] Comment on above: Order Comment: Hilary ocampo Type: BLOOD SPECIMEN Ordering Facility: [facility] Address: [address] [place] [address] Performed By: #### 2 4323-8 #### [facility] CLIA [id number] [address] STATES OF [facility] Creatinine [Mass/Vol] 1.13 mg/dL High 0.58-0.96 [facility] Comment on above: Order Comment: Hilary ocampo Type: BLOOD SPECIMEN Ordering Facility: [facility] Address: [address] [place] [address] Performed By: #### 2 4323-8 #### [facility] CLIA [id number] [address] Creatinine and Glomerular filtration rate.predicted panel (S/P/Bld) 48 mL/min/1.73m??? Low >=60 [facility] Comment on above: Order Comment: Hilary ocampo Type: BLOOD SPECIMEN Ordering Facility: [facility] Address: [address] [place] [address] Result Comment: Patience mated Glomerular Filtration Rate [...] GFR. Performed By: #### 2 4323-8 #### [facility] CLIA [id number] [address] STATES OF [facility] Glucose [Mass/Vol] 88 mg/dL Normal 74-99 [facility] Comment on above: Order Comment: Hilary ocampo Type: BLOOD SPECIMEN Ordering Facility: [facility] Address: [address] [place] [address] Result Comment: The [employer] [employer] (ADA) provides guidance for cutoff [...] Standards of Medical Care in Diabetes 2016, [employer] [employer]. Diabetes Care. 2016.39(Suppl 1). Performed By: #### 2 4323-8 #### [facility] CLIA [id number] [address] [place] [address] [place] Potassium [Moles/Vol] 4.0 mmol/L Normal 3.7-5.1 [facility] Comment on above: Order Comment: Hilary ocampo Type: BLOOD SPECIMEN Ordering Facility: [facility] Address: [address] [place] [address] Performed By: #### 2 4323-8 #### [facility] CLIA [id number] [address] [place] [address] [place] Protein [Mass/Vol] 7.2 g/dL Normal 6.3-8.0 [facility] Comment on above: Order Comment: Hilary ocampo Type: BLOOD SPECIMEN Ordering Facility: [facility] Address: [address] [place] [address] Performed By: #### 2 4323-8 #### [facility] CLIA [id number] [address] [place] [address] [place] Sodium [Moles/Vol] 143 mmol/L Normal 136-144 [facility] Comment on above: Order Comment: Hilary ocampo Type: BLOOD SPECIMEN Ordering Facility: [facility] Address: [address] [place] [address] Performed By: #### 2 4323-8 #### [facility] CLIA [id number] [address] [place] [address] [place] Urea nitrogen [Mass/Vol] 26 mg/dL High 7-21 [facility] Comment on above: Order Comment: Speci men Type: BLOOD SPECIMEN Ordering Facility: [facility] Address: [address] [place] [address] Performed By: #### 2 4323-8 #### [facility] CLIA [id number] [address] [place] [address] [place] CBC W Auto Differential pane l (Bld)on 11-24-2024 Basophils (Bld) [#/Vol] 0.03 10*3/uL Normal <0.11 [facility] Comment on above: Order Comment: Speci men Type: BLOOD SPECIMEN Ordering Facility: [facility] Address: [address] [place] [address] Performed By: #### 5 7021-8 #### [facility] CLIA [id number] [address] [place] [address] [place] Basophils/100 WBC (Bld) 0.4 % Normal [facility] Comment on above: Order Comment: Speci men Type: BLOOD SPECIMEN Ordering Facility: [facility] Address: [address] [place] [address] Performed By: #### 5 7021-8 #### [facility] CLIA [id number] [address] [place] [address] [place] Differential cell count method Nom (Bld) Auto Normal [facility] Comment on above: Order Comment: Speci men Type: BLOOD SPECIMEN Ordering Facility: [facility] Address: [address] [place] [address] Performed By: #### 5 7021-8 #### [facility] CLIA [id number] [address] [place] [address] [place] Eosinophils (Bld) [#/Vol] 0.10 10*3/uL Normal <0.46 [facility] Comment on above: Order Comment: Speci men Type: BLOOD SPECIMEN Ordering Facility: [facility] Address: [address] [place] [address] Performed By: #### 5 7021-8 #### [facility] CLIA [id number] [address] [place] [address] [place] Eosinophils/100 WBC (Bld) 1.2 % Normal [facility] Comment on above: Order Comment: Speci men Type: BLOOD SPECIMEN Ordering Facility: [facility] Address: [address] [place] [address] Performed By: #### 5 7021-8 #### [facility] CLIA [id number] [address] [place] [address] [place] Erythrocyte distribution width (RBC) [Ratio] 13.9 % Normal 11.5-15.0 [facility] Comment on above: Order Comment: Speci men Type: BLOOD SPECIMEN Ordering Facility: [facility] Address: [address] [place] [address] Performed By: #### 5 7021-8 #### [facility] CLIA [id number] [address] [place] [address] [place] Hematocrit (Bld) [Volume fraction] 37.6 % Normal 36.0-46.0 [facility] Comment on above: Order Comment: Speci men Type: BLOOD SPECIMEN Ordering Facility: [facility] Address: [address] [place] [address] Performed By: #### 5 7021-8 #### [facility] CLIA [id number] [address] [place] [address] [place] Hemoglobin (Bld) [Mass/Vol] 12.3 g/dL Normal 11.5-15.5 [facility] Comment on above: Order Comment: Speci men Type: BLOOD SPECIMEN Ordering Facility: [facility] Address: [address] [place] [address] Performed By: #### 5 7021-8 #### [facility] CLIA [id number] [address] [place] [address] [place] Immature granulocytes (Bld) [#/Vol] 10*3/uL Normal <0.10 [facility] Comment on above: Order Comment: Speci men Type: BLOOD SPECIMEN Ordering Facility: [facility] Address: [address] [place] [address] Performed By: #### 5 7021-8 #### [facility] CLIA [id number] [address] [place] Immature granulocytes/100 WBC (Bld) 0.2 % Normal [facility] Comment on above: Order Comment: Speci men Type: BLOOD SPECIMEN Ordering Facility: [facility] Address: [address] [place] [address] Performed By: #### 5 7021-8 #### [facility] CLIA [id number] [address] Lymphocytes (Bld) [#/Vol] 2.04 10*3/uL Normal 1.00-4.00 [facility] Comment on above: Order Comment: Speci men Type: BLOOD SPECIMEN Ordering Facility: [facility] Address: [address] [place] [address] Performed By: #### 5 7021-8 #### [facility] CLIA [id number] [address] Lymphocytes/100 WBC (Bld) 25.0 % Normal [facility] Comment on above: Order Comment: Speci men Type: BLOOD SPECIMEN Ordering Facility: [facility] Address: [address] [place] [address] Performed By: #### 5 7021-8 #### [facility] CLIA [id number] [address] MCH (RBC) [Entitic mass] 31.6 pg Normal 26.0-34.0 [facility] Comment on above: Order Comment: Speci men Type: BLOOD SPECIMEN Ordering Facility: [facility] Address: [address] [place] [address] Performed By: #### 5 7021-8 #### [facility] CLIA [id number] [address] MCHC (RBC) [Mass/Vol] 32.7 g/dL Normal 30.5-36.0 [facility] Comment on above: Order Comment: Speci men Type: BLOOD SPECIMEN Ordering Facility: [facility] Address: [address] [place] [address] Performed By: #### 5 7021-8 #### [facility] CLIA [id number] [address] MCV (RBC) [Entitic vol] 96.7 fL Normal 80.0-100.0 [facility] Comment on above: Order Comment: Speci men Type: BLOOD SPECIMEN Ordering Facility: [facility] Address: [address] [place] [address] Performed By: #### 5 7021-8 #### [facility] CLIA [id number] [address] [place] [address] [place] Monocytes (Bld) [#/Vol] 0.56 10*3/uL Normal <0.87 [facility] Comment on above: Order Comment: Speci men Type: BLOOD SPECIMEN Ordering Facility: [facility] Address: [address] [place] [address] Performed By: #### 5 7021-8 #### [facility] CLIA [id number] [address] [place] [address] [place] Monocytes/100 WBC (Bld) 6.9 % Normal [facility] Comment on above: Order Comment: Speci men Type: BLOOD SPECIMEN Ordering Facility: [facility] Address: [address] [place] [address] Performed By: #### 5 7021-8 #### [facility] CLIA [id number] [address] [place] [address] [place] Neutrophils (Bld) [#/Vol] 5.40 10*3/uL Normal 1.45-7.50 [facility] Comment on above: Order Comment: Speci men Type: BLOOD SPECIMEN Ordering Facility: [facility] Address: [address] [place] [address] Performed By: #### 5 7021-8 #### [facility] CLIA [id number] [address] [place] [address] [place] Neutrophils/100 WBC (Bld) 66.3 % Normal [facility] Comment on above: Order Comment: Speci men Type: BLOOD SPECIMEN Ordering Facility: [facility] Address: [address] [place] [address] Performed By: #### 5 7021-8 #### [facility] CLIA [id number] [address] [place] [address] [place] Nucleated RBC (Bld) [#/Vol] 10*3/uL Normal <0.01 [facility] Comment on above: Order Comment: Speci men Type: BLOOD SPECIMEN Ordering Facility: [facility] Address: [address] [place] [address] Performed By: #### 5 7021-8 #### [facility] CLIA [id number] [address] [place] Nucleated RBC/100 WBC (Bld) [Ratio] 0.0 /100 WBC Normal [facility] Comment on above: Order Comment: Speci men Type: BLOOD SPECIMEN Ordering Facility: [facility] Address: [address] [place] [address] Performed By: #### 5 7021-8 #### [facility] CLIA [id number] [address] Platelet clump LM Ql (Bld) Present Normal [facility] Comment on above: Order Comment: Speci men Type: BLOOD SPECIMEN Ordering Facility: [facility] Address: [address] [place] [address] Performed By: #### 5 7021-8 #### [facility] CLIA [id number] [address] Platelet mean volume (Bld) [Entitic vol] Normal [facility] Comment on above: Order Comment: Speci men Type: BLOOD SPECIMEN Ordering Facility: [facility] Address: [address] [place] [address] Result Comment: Unab le to Report. Performed By: #### 5 7021-8 #### [facility] CLIA [id number] [address] Platelets (Bld) [#/Vol] Normal [facility] Comment on above: Order Comment: Speci men Type: BLOOD SPECIMEN Ordering Facility: [facility] Address: [address] [place] [address] Result Comment: No c lot detected.Platelets Clumped Estimate Normal. Performed By: #### 5 7021-8 #### [facility] CLIA [id number] [address] Platelets Estimate (Bld) [#/Vol] Adequate Normal [facility] Comment on above: Order Comment: Speci men Type: BLOOD SPECIMEN Ordering Facility: [facility] Address: [address] [place] [address] Performed By: #### 5 7021-8 #### [facility] CLIA [id number] [address] RBC (Bld) [#/Vol] 3.89 10*6/uL Low 3.90-5.20 [facility] Comment on above: Order Comment: Speci men Type: BLOOD SPECIMEN Ordering Facility: [facility] Address: [address] [place] [address] Performed By: #### 5 7021-8 #### [facility] CLIA [id number] [address] RED CELL MORPH Reviewed: unremarkable Normal [facility] Comment on above: Order Comment: Speci men Type: BLOOD SPECIMEN Ordering Facility: [facility] Address: [address] [place] [address] Performed By: #### 5 7021-8 #### [facility] CLIA [id number] [address] WBC (Bld) [#/Vol] 8.15 10*3/uL Normal 3.70-11.00 [facility] Comment on above: Order Comment: Speci men Type: BLOOD SPECIMEN Ordering Facility: [facility] Address: [address] [place] [address] Performed By: #### 5 7021-8 #### [facility] CLIA [id number] [address] Comprehensive metabolic 2000 panelon 11-24-2024 Albumin [Mass/Vol] 3.4 g/dL Low 3.9-4.9 [facility] Comment on above: Order Comment: Speci men Type: BLOOD SPECIMEN Ordering Facility: [facility] Address: [address] [place] [address] Performed By: #### 5 7021-8 #### [facility] CLIA [id number] [address] ALP [Catalytic activity/Vol] 104 U/L Normal 34-123 [facility] Comment on above: Order Comment: Speci men Type: BLOOD SPECIMEN Ordering Facility: [facility] Address: [address] [place] [address] Performed By: #### 5 7021-8 #### [facility] CLIA [id number] [address] [place] [address] [place] ALT [Catalytic activity/Vol] 9 U/L Normal 7-38 [facility] Comment on above: Order Comment: Speci men Type: BLOOD SPECIMEN Ordering Facility: [facility] Address: [address] [place] [address] Performed By: #### 5 7021-8 #### [facility] CLIA [id number] [address] [place] [address] [place] Anion gap [Moles/Vol] 11 mmol/L Normal 8-15 [facility] Comment on above: Order Comment: Speci men Type: BLOOD SPECIMEN Ordering Facility: [facility] Address: [address] [place] [address] Performed By: #### 5 7021-8 #### [facility] CLIA [id number] [address] [place] [address] [place] AST [Catalytic activity/Vol] 19 U/L Normal 13-35 [facility] Comment on above: Order Comment: Speci men Type: BLOOD SPECIMEN Ordering Facility: [facility] Address: [address] [place] [address] Performed By: #### 5 7021-8 #### [facility] CLIA [id number] [address] [place] [address] [place] Bilirubin [Mass/Vol] 0.2 mg/dL Normal 0.2-1.3 [facility] Comment on above: Order Comment: Speci men Type: BLOOD SPECIMEN Ordering Facility: [facility] Address: [address] [place] [address] Performed By: #### 5 7021-8 #### [facility] CLIA [id number] [address] [place] Calcium [Mass/Vol] 9.4 mg/dL Normal 8.5-10.2 [facility] Comment on above: Order Comment: Speci men Type: BLOOD SPECIMEN Ordering Facility: [facility] Address: [address] [place] [address] Performed By: #### 5 7021-8 #### [facility] CLIA [id number] [address] STATES [facility] Chloride [Moles/Vol] 105 mmol/L Normal 98-107 [facility] Comment on above: Order Comment: Hilary ocampo Type: BLOOD SPECIMEN Ordering Facility: [facility] Address: [address] [place] [address] Performed By: #### 5 7021-8 #### [facility] CLIA [id number] [address] [place] CO2 [Moles/Vol] 24 mmol/L Normal 22-30 [facility] Comment on above: Order Comment: Hilary men Type: BLOOD SPECIMEN Ordering Facility: [facility] Address: [address] [place] [address] Performed By: #### 5 7021-8 #### [facility] CLIA [id number] [address] Creatinine [Mass/Vol] 0.97 mg/dL High 0.58-0.96 [facility] Comment on above: Order Comment: Hilary ocampo Type: BLOOD SPECIMEN Ordering Facility: [facility] Address: [address] [place] [address] Performed By: #### 5 7021-8 #### [facility] CLIA [id number] [address] Creatinine and Glomerular filtration rate.predicted panel (S/P/Bld) 58 mL/min/1.73m??? Low >=60 [facility] Comment on above: Order Comment: Hilary terrence Type: BLOOD SPECIMEN Ordering Facility: [facility] Address: [address] [place] [address] Result Comment: Patience mated Glomerular Filtration Rate [...] GFR. Performed By: #### 5 7021-8 #### [facility] CLIA [id number] [address] [place] [address] [place] Glucose [Mass/Vol] 92 mg/dL Normal 74-99 [facility] Comment on above: Order Comment: Hilary ocampo Type: BLOOD SPECIMEN Ordering Facility: [facility] Address: [address] [place] [address] Result Comment: The [employer] (ADA) provides guidance for cutoff [...] Standards of Medical Care in Diabetes 2016, [employer]. Diabetes Care. 2016.39(Suppl 1). Performed By: #### 5 7021-8 #### [facility] CLIA [id number] [address] [place] [address] [place] Potassium [Moles/Vol] 4.3 mmol/L Normal 3.7-5.1 [facility] Comment on above: Order Comment: Hilary ocampo Type: BLOOD SPECIMEN Ordering Facility: [facility] Address: [address] [place] [address] Performed By: #### 5 7021-8 #### [facility] CLIA [id number] [address] [place] [address] [place] Protein [Mass/Vol] 7.0 g/dL Normal 6.3-8.0 [facility] Comment on above: Order Comment: Hilary ocampo Type: BLOOD SPECIMEN Ordering Facility: [facility] Address: [address] [place] [address] Performed By: #### 5 7021-8 #### [facility] CLIA [id number] 1000 [place] [address] [place] Sodium [Moles/Vol] 140 mmol/L Normal 136-144 [facility] Comment on above: Order Comment: Hilary ocampo Type: BLOOD SPECIMEN Ordering Facility: [facility] Address: [address] [id number] Performed By: #### 5 7021-8 #### [facility] CLIA [id number] [address] STATES [facility] Urea nitrogen [Mass/Vol] 24 mg/dL High 7-21 [facility] Comment on above: Order Comment: Hilary ocampo Type: BLOOD SPECIMEN Ordering Facility: [facility] Address: [address] [id number] Performed By: #### 5 7021-8 #### [facility] CLIA [id number] [address] CNOVSPon 10-24-2024 CNOVSP Visit (SP) Office (HEMMED) JACKELYN BRADSHAW ([id number]) 1940 F Date Time Provider Department 10/24/24 [...] found to be consistent with ER positive/99%, TN +90% and HER2 negative by IHC. The [...] Leonid Graham MD Allergies As of Date: 10/24/2024 [...] Reason fo (more content not included)... Normal [facility] CBC W Auto Differential pane l (Bld)on 10-21-2024 Basophils (Bld) [#/Vol] 0.03 10*3/uL Normal <0.11 [facility] Comment on above: Order Comment: Speci men Type: BLOOD SPECIMEN Ordering Facility: [facility] Address: [address] [place] [address] Performed By: #### 5 7021-8 #### [facility] CLIA [id number] [address] Basophils/100 WBC (Bld) 0.4 % Normal [facility] Comment on above: Order Comment: Speci men Type: BLOOD SPECIMEN Ordering Facility: [facility] Address: [address] [place] [address] Performed By: #### 5 7021-8 #### [facility] CLIA [id number] [address] [place] Differential cell count method Nom (Bld) Auto Normal [facility] Comment on above: Order Comment: Speci men Type: BLOOD SPECIMEN Ordering Facility: [facility] Address: [address] [place] [address] Performed By: #### 5 7021-8 #### [facility] CLIA [id number] [address] [place] [address] [place] Eosinophils (Bld) [#/Vol] 0.09 10*3/uL Normal <0.46 [facility] Comment on above: Order Comment: Speci men Type: BLOOD SPECIMEN Ordering Facility: [facility] Address: [address] [place] [address] Performed By: #### 5 7021-8 #### [facility] CLIA [id number] [address] [place] Eosinophils/100 WBC (Bld) 1.3 % Normal [facility] Comment on above: Order Comment: Speci men Type: BLOOD SPECIMEN Ordering Facility: [facility] Address: [facility] [place] [address] Performed By: #### 5 7021-8 #### [facility] CLIA [id number] [address] [place] [address] [place] Erythrocyte distribution width (RBC) [Ratio] 13.7 % Normal 11.5-15.0 [facility] Comment on above: Order Comment: Speci men Type: BLOOD SPECIMEN Ordering Facility: [facility] Address: [address] [place] [address] Performed By: #### 5 7021-8 #### [facility] CLIA [id number] [address] [place] [address] [place] Hematocrit (Bld) [Volume fraction] 36.9 % Normal 36.0-46.0 [facility] Comment on above: Order Comment: Speci men Type: BLOOD SPECIMEN Ordering Facility: [facility] Address: [address] [place] [address] Performed By: #### 5 7021-8 #### [facility] CLIA [id number] [address] [place] [address] [place] Hemoglobin (Bld) [Mass/Vol] 11.9 g/dL Normal 11.5-15.5 [facility] Comment on above: Order Comment: Speci men Type: BLOOD SPECIMEN Ordering Facility: [facility] Address: [address] [place] [address] Performed By: #### 5 7021-8 #### [facility] CLIA [id number] [address] [place] [address] [place] Immature granulocytes (Bld) [#/Vol] 10*3/uL Normal <0.10 [facility] Comment on above: Order Comment: Speci men Type: BLOOD SPECIMEN Ordering Facility: [facility] Address: [address] [place] [address] Performed By: #### 5 7021-8 #### [facility] CLIA [id number] [address] [place] [address] [place] Immature granulocytes/100 WBC (Bld) 0.3 % Normal [facility] Comment on above: Order Comment: Speci men Type: BLOOD SPECIMEN Ordering Facility: [facility] Address: [address] [place] [address] Performed By: #### 5 7021-8 #### [facility] CLIA [id number] [address] [place] Lymphocytes (Bld) [#/Vol] 2.31 10*3/uL Normal 1.00-4.00 [facility] Comment on above: Order Comment: Speci men Type: BLOOD SPECIMEN Ordering Facility: [facility] Address: [address] [place] [address] Performed By: #### 5 7021-8 #### [facility] CLIA [id number] [address] Lymphocytes/100 WBC (Bld) 34.1 % Normal [facility] Comment on above: Order Comment: Speci men Type: BLOOD SPECIMEN Ordering Facility: [facility] Address: [address] [place] [address] Performed By: #### 5 7021-8 #### [facility] CLIA [id number] [address] MCH (RBC) [Entitic mass] 30.7 pg Normal 26.0-34.0 [facility] Comment on above: Order Comment: Speci men Type: BLOOD SPECIMEN Ordering Facility: [facility] Address: [address] [place] [address] Performed By: #### 5 7021-8 #### [facility] CLIA [id number] [address] [place] [address] [place] MCHC (RBC) [Mass/Vol] 32.2 g/dL Normal 30.5-36.0 [facility] Comment on above: Order Comment: Speci men Type: BLOOD SPECIMEN Ordering Facility: [facility] Address: [address] [place] [address] Performed By: #### 5 7021-8 #### [facility] CLIA [id number] [address] [place] MCV (RBC) [Entitic vol] 95.3 fL Normal 80.0-100.0 [facility] Comment on above: Order Comment: Speci men Type: BLOOD SPECIMEN Ordering Facility: [facility] Address: [address] [place] [address] Performed By: #### 5 7021-8 #### [facility] CLIA [id number] [address] [place] [address] [place] Monocytes (Bld) [#/Vol] 0.54 10*3/uL Normal <0.87 [facility] Comment on above: Order Comment: Speci men Type: BLOOD SPECIMEN Ordering Facility: [facility] Address: [address] [place] [address] Performed By: #### 5 7021-8 #### [facility] CLIA [id number] [address] Monocytes/100 WBC (Bld) 8.0 % Normal [facility] Comment on above: Order Comment: Speci men Type: BLOOD SPECIMEN Ordering Facility: [facility] Address: [address] [place] [address] Performed By: #### 5 7021-8 #### [facility] CLIA [id number] [address] [place] Neutrophils (Bld) [#/Vol] 3.79 10*3/uL Normal 1.45-7.50 [facility] Comment on above: Order Comment: Speci men Type: BLOOD SPECIMEN Ordering Facility: [facility] Address: [address] [place] [address] Performed By: #### 5 7021-8 #### [facility] CLIA [id number] [address] [place] Neutrophils/100 WBC (Bld) 55.9 % Normal [facility] Comment on above: Order Comment: Speci men Type: BLOOD SPECIMEN Ordering Facility: [facility] Address: [address] [place] [address] Performed By: #### 5 7021-8 #### [facility] CLIA [id number] [address] [place] [address] [place] Nucleated RBC (Bld) [#/Vol] 10*3/uL Normal <0.01 [facility] Comment on above: Order Comment: Speci men Type: BLOOD SPECIMEN Ordering Facility: [facility] Address: [address] [place] [address] Performed By: #### 5 7021-8 #### [facility] CLIA [id number] [address] [place] Nucleated RBC/100 WBC (Bld) [Ratio] 0.0 /100 WBC Normal [facility] Comment on above: Order Comment: Speci men Type: BLOOD SPECIMEN Ordering Facility: [facility] Address: [address] [place] [address] Performed By: #### 5 7021-8 #### [facility] CLIA [id number] [address] Platelet mean volume (Bld) [Entitic vol] 10.7 fL Normal 9.0-12.7 [facility] Comment on above: Order Comment: Speci men Type: BLOOD SPECIMEN Ordering Facility: [facility] Address: [address] [place] [address] Performed By: #### 5 7021-8 #### [facility] CLIA [id number] [address] [place] Platelets (Bld) [#/Vol] 214 10*3/uL Normal 150-400 [facility] Comment on above: Order Comment: Speci men Type: BLOOD SPECIMEN Ordering Facility: [facility] Address: [address] [place] [address] Performed By: #### 5 7021-8 #### [facility] CLIA [id number] [address] [place] RBC (Bld) [#/Vol] 3.87 10*6/uL Low 3.90-5.20 [facility] Comment on above: Order Comment: Speci men Type: BLOOD SPECIMEN Ordering Facility: [facility] Address: [address] [place] [address] Performed By: #### 5 7021-8 #### [facility] CLIA [id number] [address] [place] WBC (Bld) [#/Vol] 6.78 10*3/uL Normal 3.70-11.00 [facility] Comment on above: Order Comment: Speci men Type: BLOOD SPECIMEN Ordering Facility: [facility] Address: [address] [place] [address] Performed By: #### 5 7021-8 #### [facility] CLIA [id number] [address] Comprehensive metabolic 2000 panelon 10-21-2024 Albumin [Mass/Vol] 3.4 g/dL Low 3.9-4.9 [facility] Comment on above: Order Comment: Speci men Type: BLOOD SPECIMEN Ordering Facility: [facility] Address: [address] [place] [address] Performed By: #### 2 4323-8 #### [facility] CLIA [id number] [address] ALP [Catalytic activity/Vol] 112 U/L Normal 34-123 [facility] Comment on above: Order Comment: Speci men Type: BLOOD SPECIMEN Ordering Facility: [facility] Address: [address] [place] [address] Performed By: #### 2 4323-8 #### [facility] CLIA [id number] [address] ALT [Catalytic activity/Vol] 10 U/L Normal 7-38 [facility] Comment on above: Order Comment: Speci men Type: BLOOD SPECIMEN Ordering Facility: [facility] Address: [address] [place] [address] Performed By: #### 2 4323-8 #### [facility] CLIA [id number] [address] Anion gap [Moles/Vol] 9 mmol/L Normal 8-15 [facility] Comment on above: Order Comment: Speci men Type: BLOOD SPECIMEN Ordering Facility: [facility] Address: [address] [place] [address] Performed By: #### 2 4323-8 #### [facility] CLIA [id number] [address] [place] AST [Catalytic activity/Vol] 17 U/L Normal 13-35 [facility] Comment on above: Order Comment: Speci men Type: BLOOD SPECIMEN Ordering Facility: [facility] Address: [address] [place] [address] Performed By: #### 2 4323-8 #### [facility] CLIA [id number] [address] [place] [address] [place] Bilirubin [Mass/Vol] 0.3 mg/dL Normal 0.2-1.3 [facility] Comment on above: Order Comment: Speci men Type: BLOOD SPECIMEN Ordering Facility: [facility] Address: [address] [place] [address] Performed By: #### 2 4323-8 #### [facility] CLIA [id number] [address] [place] [address] [place] Calcium [Mass/Vol] 9.1 mg/dL Normal 8.5-10.2 [facility] Comment on above: Order Comment: Speci men Type: BLOOD SPECIMEN Ordering Facility: [facility] Address: [address] [place] [address] Performed By: #### 2 4323-8 #### [facility] CLIA [id number] [address] [place] [address] [place] Chloride [Moles/Vol] 105 mmol/L Normal 98-107 [facility] Comment on above: Order Comment: Speci men Type: BLOOD SPECIMEN Ordering Facility: [facility] Address: [address] [place] [address] Performed By: #### 2 4323-8 #### [facility] CLIA [id number] [address] [place] [address] [place] CO2 [Moles/Vol] 27 mmol/L Normal 22-30 [facility] Comment on above: Order Comment: Speci men Type: BLOOD SPECIMEN Ordering Facility: [facility] Address: [address] [place] [address] Performed By: #### 2 4323-8 #### [facility] CLIA [id number] [address] [place] [address] [place] Creatinine [Mass/Vol] 1.07 mg/dL High 0.58-0.96 [facility] Comment on above: Order Comment: Hilary ocampo Type: BLOOD SPECIMEN Ordering Facility: [facility] Address: [address] [place] [address] Performed By: #### 2 4323-8 #### [facility] CLIA [id number] [address] [place] Creatinine and Glomerular filtration rate.predicted panel (S/P/Bld) 52 mL/min/1.73m??? Low >=60 [facility] Comment on above: Order Comment: Hilary ocampo Type: BLOOD SPECIMEN Ordering Facility: [facility] Address: [address] [place] [address] Result Comment: Patience mated Glomerular Filtration Rate [...] GFR. Performed By: #### 2 4323-8 #### [facility] CLIA [id number] [address] [place] [address] [place] Glucose [Mass/Vol] 108 mg/dL High 74-99 [facility] Comment on above: Order Comment: Hilary ocampo Type: BLOOD SPECIMEN Ordering Facility: [facility] Address: [address] [place] [address] Result Comment: The [employer] [employer] (ADA) provides guidance for cutoff [...] Standards of Medical Care in Diabetes 2016, [employer] [employer]. Diabetes Care. 2016.39(Suppl 1). Performed By: #### 2 4323-8 #### [facility] CLIA [id number] [address] STATES OF [facility] Potassium [Moles/Vol] 3.7 mmol/L Normal 3.7-5.1 [facility] Comment on above: Order Comment: Speci men Type: BLOOD SPECIMEN Ordering Facility: [facility] Address: [address] [place] [address] Performed By: #### 2 4323-8 #### [facility] CLIA [id number] [address] Protein [Mass/Vol] 7.0 g/dL Normal 6.3-8.0 [facility] Comment on above: Order Comment: Speci men Type: BLOOD SPECIMEN Ordering Facility: [facility] Address: [address] [place] [address] Performed By: #### 2 4323-8 #### [facility] CLIA [id number] [address] Sodium [Moles/Vol] 141 mmol/L Normal 136-144 [facility] Comment on above: Order Comment: Speci men Type: BLOOD SPECIMEN Ordering Facility: [facility] Address: [address] [place] [address] Performed By: #### 2 4323-8 #### [facility] CLIA [id number] [address] Urea nitrogen [Mass/Vol] 18 mg/dL Normal 7-21 [facility] Comment on above: Order Comment: Speci men Type: BLOOD SPECIMEN Ordering Facility: [facility] Address: [address] [place] [address] Performed By: #### 2 4323-8 #### [facility] CLIA [id number] [address] CBC W Auto Differential pane l (Bld)on 09-20-2024 Basophils (Bld) [#/Vol] 0.05 10*3/uL Normal <0.11 [facility] Comment on above: Order Comment: Speci men Type: BLOOD SPECIMEN Ordering Facility: [facility] Address: [address] [place] [address] Performed By: #### 5 7021-8 #### [facility] CLIA [id number] 1000 [place] [address] [place] Basophils/100 WBC (Bld) 0.7 % Normal [facility] Comment on above: Order Comment: Speci men Type: BLOOD SPECIMEN Ordering Facility: [facility] Address: [address] [place] [address] Performed By: #### 5 7021-8 #### [facility] CLIA [id number] [address] [place] [address] [place] Differential cell count method Nom (Bld) Auto [facility] Comment on above: Order Comment: Speci men Type: BLOOD SPECIMEN Ordering Facility: [facility] Address: [address] [place] [address] Performed By: #### 5 7021-8 #### [facility] CLIA [id number] [address] [place] [address] [place] Eosinophils (Bld) [#/Vol] 0.13 10*3/uL Normal <0.46 [facility] Comment on above: Order Comment: Speci men Type: BLOOD SPECIMEN Ordering Facility: [facility] Address: [address] [place] [address] Performed By: #### 5 7021-8 #### [facility] CLIA [id number] [address] [place] Eosinophils/100 WBC (Bld) 1.7 % Normal [facility] Comment on above: Order Comment: Speci men Type: BLOOD SPECIMEN Ordering Facility: [facility] Address: [address] [place] [address] Performed By: #### 5 7021-8 #### [facility] CLIA [id number] [address] [place] [address] [place] Erythrocyte distribution width (RBC) [Ratio] 13.5 % Normal 11.5-15.0 [facility] Comment on above: Order Comment: Speci men Type: BLOOD SPECIMEN Ordering Facility: [facility] Address: [address] [place] [address] Performed By: #### 5 7021-8 #### [facility] CLIA [id number] [address] [place] [address] [place] Hematocrit (Bld) [Volume fraction] 43.2 % Normal 36.0-46.0 [facility] Comment on above: Order Comment: Speci men Type: BLOOD SPECIMEN Ordering Facility: [facility] Address: [address] [place] [address] Performed By: #### 5 7021-8 #### [facility] CLIA [id number] [address] [place] Hemoglobin (Bld) [Mass/Vol] 13.1 g/dL Normal 11.5-15.5 [facility] Comment on above: Order Comment: Speci men Type: BLOOD SPECIMEN Ordering Facility: [facility] Address: [address] [place] [address] Performed By: #### 5 7021-8 #### [facility] CLIA [id number] [address] [place] [address] [place] Immature granulocytes (Bld) [#/Vol] 0.03 10*3/uL Normal <0.10 [facility] Comment on above: Order Comment: Speci men Type: BLOOD SPECIMEN Ordering Facility: [facility] Address: [address] [place] [address] Performed By: #### 5 7021-8 #### [facility] CLIA [id number] [address] [place] Immature granulocytes/100 WBC (Bld) 0.4 % Normal [facility] Comment on above: Order Comment: Speci men Type: BLOOD SPECIMEN Ordering Facility: [facility] Address: [address] [place] [address] Performed By: #### 5 7021-8 #### [facility] CLIA [id number] [address] [place] [address] [place] Lymphocytes (Bld) [#/Vol] 3.06 10*3/uL Normal 1.00-4.00 [facility] Comment on above: Order Comment: Speci men Type: BLOOD SPECIMEN Ordering Facility: [facility] Address: [address] [place] [address] Performed By: #### 5 7021-8 #### [facility] CLIA [id number] [address] [place] Lymphocytes/100 WBC (Bld) 40.1 % Normal [facility] Comment on above: Order Comment: Speci men Type: BLOOD SPECIMEN Ordering Facility: [facility] Address: [address] [place] [address] Performed By: #### 5 7021-8 #### [facility] CLIA [id number] [address] [place] MCH (RBC) [Entitic mass] 31.2 pg Normal 26.0-34.0 [facility] Comment on above: Order Comment: Speci men Type: BLOOD SPECIMEN Ordering Facility: [facility] Address: [address] [place] [address] Performed By: #### 5 7021-8 #### [facility] CLIA [id number] [address] [place] MCHC (RBC) [Mass/Vol] 30.3 g/dL Low 30.5-36.0 [facility] Comment on above: Order Comment: Speci men Type: BLOOD SPECIMEN Ordering Facility: [facility] Address: [address] [place] [address] Performed By: #### 5 7021-8 #### [facility] CLIA [id number] [address] MCV (RBC) [Entitic vol] 102.9 fL High 80.0-100.[address] [facility] Comment on above: Order Comment: Speci men Type: BLOOD SPECIMEN Ordering Facility: [facility] Address: [address] [place] [address] Performed By: #### 5 7021-8 #### [facility] CLIA [id number] [address] [place] Monocytes (Bld) [#/Vol] 0.53 10*3/uL Normal <0.87 [facility] Comment on above: Order Comment: Speci men Type: BLOOD SPECIMEN Ordering Facility: [facility] Address: [address] [place] [address] Performed By: #### 5 7021-8 #### [facility] CLIA [id number] [address] [place] [address] [place] Monocytes/100 WBC (Bld) 6.9 % Normal [facility] Comment on above: Order Comment: Speci men Type: BLOOD SPECIMEN Ordering Facility: [facility] Address: [address] [place] [address] Performed By: #### 5 7021-8 #### [facility] CLIA [id number] [address] [place] [address] [place] Neutrophils (Bld) [#/Vol] 3.84 10*3/uL Normal 1.45-7.50 [facility] Comment on above: Order Comment: Speci men Type: BLOOD SPECIMEN Ordering Facility: [facility] Address: [address] [place] [address] Performed By: #### 5 7021-8 #### [facility] CLIA [id number] [address] [place] Neutrophils/100 WBC (Bld) 50.2 % Normal [facility] Comment on above: Order Comment: Speci men Type: BLOOD SPECIMEN Ordering Facility: [facility] Address: [address] [place] [address] Performed By: #### 5 7021-8 #### [facility] CLIA [id number] [address] [place] Nucleated RBC (Bld) [#/Vol] 10*3/uL Normal <0.01 [facility] Comment on above: Order Comment: Speci men Type: BLOOD SPECIMEN Ordering Facility: [facility] Address: [address] [place] [address] Performed By: #### 5 7021-8 #### [facility] CLIA [id number] [address] [place] Nucleated RBC/100 WBC (Bld) [Ratio] 0.0 /100 WBC Normal [facility] Comment on above: Order Comment: Speci men Type: BLOOD SPECIMEN Ordering Facility: [facility] Address: [address] [place] [address] Performed By: #### 5 7021-8 #### [facility] CLIA [id number] [address] [place] [address] [place] Platelet mean volume (Bld) [Entitic vol] 10.5 fL Normal 9.0-12.7 [facility] Comment on above: Order Comment: Speci men Type: BLOOD SPECIMEN Ordering Facility: [facility] Address: [address] [place] [address] Performed By: #### 5 7021-8 #### [facility] CLIA [id number] [address] [place] [address] [place] Platelets (Bld) [#/Vol] 213 10*3/uL Normal 150-400 [facility] Comment on above: Order Comment: Speci men Type: BLOOD SPECIMEN Ordering Facility: [facility] Address: [address] [place] [address] Performed By: #### 5 7021-8 #### [facility] CLIA [id number] [address] [place] [address] [place] RBC (Bld) [#/Vol] 4.20 10*6/uL Normal 3.90-5.20 [facility] Comment on above: Order Comment: Speci men Type: BLOOD SPECIMEN Ordering Facility: [facility] Address: [address] [place] [address] Performed By: #### 5 7021-8 #### [facility] CLIA [id number] [address] [place] [address] [place] WBC (Bld) [#/Vol] 7.64 10*3/uL Normal 3.70-11.00 [facility] Comment on above: Order Comment: Speci men Type: BLOOD SPECIMEN Ordering Facility: [facility] Address: [address] [place] [address] Performed By: #### 5 7021-8 #### [facility] CLIA [id number] [address] [place] Comprehensive metabolic 2000 panelon 09-20-2024 Albumin [Mass/Vol] 3.4 g/dL Low 3.9-4.9 [facility] Comment on above: Order Comment: Speci men Type: BLOOD SPECIMEN Ordering Facility: [facility] Address: [address] [place] [address] Performed By: #### 5 7021-8 #### [facility] CLIA [id number] [address] ALP [Catalytic activity/Vol] 125 U/L High 34-123 [facility] Comment on above: Order Comment: Speci men Type: BLOOD SPECIMEN Ordering Facility: [facility] Address: [address] [place] [address] Performed By: #### 5 7021-8 #### [facility] CLIA [id number] [address] [place] ALT [Catalytic activity/Vol] 10 U/L Normal 7-38 [facility] Comment on above: Order Comment: Speci men Type: BLOOD SPECIMEN Ordering Facility: [facility] Address: [address] [place] [address] Performed By: #### 5 7021-8 #### [facility] CLIA [id number] [address] [place] Anion gap [Moles/Vol] 11 mmol/L Normal 8-15 [facility] Comment on above: Order Comment: Speci men Type: BLOOD SPECIMEN Ordering Facility: [facility] Address: [address] [place] [address] Performed By: #### 5 7021-8 #### [facility] CLIA [id number] [address] AST [Catalytic activity/Vol] 19 U/L Normal 13-35 [facility] Comment on above: Order Comment: Speci men Type: BLOOD SPECIMEN Ordering Facility: [facility] Address: [address] [place] [address] Performed By: #### 5 7021-8 #### [facility] CLIA [id number] [address] Bilirubin [Mass/Vol] 0.3 mg/dL Normal 0.2-1.3 [facility] Comment on above: Order Comment: Speci men Type: BLOOD SPECIMEN Ordering Facility: [facility] Address: [address] [place], [place] [address] Performed By: #### 5 7021-8 #### [facility] CLIA [id number] [address] [place] Calcium [Mass/Vol] 9.0 mg/dL Normal 8.5-10.2 [facility] Comment on above: Order Comment: Speci men Type: BLOOD SPECIMEN Ordering Facility: [facility] Address: [address] [place] [address] Performed By: #### 5 7021-8 #### [facility] CLIA [id number] [address] [place] Chloride [Moles/Vol] 105 mmol/L Normal 98-107 [facility] Comment on above: Order Comment: Speci men Type: BLOOD SPECIMEN Ordering Facility: [facility] Address: [address] [place] [address] Performed By: #### 5 7021-8 #### [facility] CLIA [id number] [address] [place] CO2 [Moles/Vol] 23 mmol/L Normal 22-30 [facility] Comment on above: Order Comment: Speci men Type: BLOOD SPECIMEN Ordering Facility: [facility] Address: [address] [place] [address] Performed By: #### 5 7021-8 #### [facility] CLIA [id number] [address] [place] Creatinine [Mass/Vol] 1.20 mg/dL High 0.58-0.96 [facility] Comment on above: Order Comment: Speci men Type: BLOOD SPECIMEN Ordering Facility: [facility] Address: [address] [place] [address] Performed By: #### 5 7021-8 #### [facility] CLIA [id number] [address] Creatinine and Glomerular filtration rate.predicted panel (S/P/Bld) 45 mL/min/1.73m??? Low >=60 [facility] Comment on above: Order Comment: Speci men Type: BLOOD SPECIMEN Ordering Facility: [facility] Address: [address] [place] [address] Result Comment: Patience mated Glomerular Filtration Rate [...] GFR. Performed By: #### 5 7021-8 #### [facility] CLIA [id number] [address] [place] [address] [place] Glucose [Mass/Vol] 98 mg/dL Normal 74-99 [facility] Comment on above: Order Comment: Hilary ocampo Type: BLOOD SPECIMEN Ordering Facility: [facility] Address: [address] [place] [address] Result Comment: The [place] Diabetes [employer] (ADA) provides guidance for cutoff [...] Standards of Medical Care in Diabetes 2016, [place] [employer]. Diabetes Care. 2016.39(Suppl 1). Performed By: #### 5 7021-8 #### [facility] CLIA [id number] [address] [place] [address] [place] Potassium [Moles/Vol] 4.3 mmol/L Normal 3.7-5.1 [facility] Comment on above: Order Comment: Hilary ocampo Type: BLOOD SPECIMEN Ordering Facility: [facility] Address: [address] [place] [id number] Performed By: #### 5 7021-8 #### [facility] CLIA [id number] [address] [place] [address] [place] Protein [Mass/Vol] 7.3 g/dL Normal 6.3-8.0 [facility] Comment on above: Order Comment: Speci men Type: BLOOD SPECIMEN Ordering Facility: [facility] Address: [address] [place] [address] Performed By: #### 5 7021-8 #### [facility] CLIA [id number] [address] [place] [address] [place] Sodium [Moles/Vol] 139 mmol/L Normal 136-144 [facility] Comment on above: Order Comment: Speci men Type: BLOOD SPECIMEN Ordering Facility: [facility] Address: [address] [place] [address] Performed By: #### 5 7021-8 #### [facility] CLIA [id number] [address] [place] [address] [place] Urea nitrogen [Mass/Vol] 24 mg/dL High 7- [facility] Comment on above: Order Comment: Speci men Type: BLOOD SPECIMEN Ordering Facility: [facility] Address: [address] [place] [address] Performed By: #### 5 7021-8 #### [facility] CLIA [id number] [address] [place] [address] [place] CBC W/Diff, Automatedon 12-0 -2023 Absolute Lymph 1.85 X10 3/uL Normal 0.83-4.51 [facility] Comment on above: Performed By: #### L 500.4100, L100.0100, L501.9520, L501.9985, L500.4050, L506.1000 #### [facility] [address] [place], [address] Absolute Neut 4.5 X10 3/uL Normal 2.0-7.7 [facility] Comment on above: Performed By: #### L 500.4100, L100.0100, L501.9520, L501.9985, L500.4050, L506.1000 #### [facility] [address] [place], [address] Basophils/100 WBC (Bld) 0.4 % Normal 0-1 [facility] Comment on above: Performed By: #### L 500.4100, L100.0100, L501.9520, L501.9985, L500.4050, L506.1000 #### [facility] [address] [place], [address] Eosinophils/100 WBC (Bld) 0.4 % Normal 0-5 [facility] Comment on above: Performed By: #### L 500.4100, L100.0100, L501.9520, L501.9985, L500.4050, L506.1000 #### [facility] [address] [place], [address] Erythrocyte distribution width (RBC) [Ratio] 13.4 % Normal 11.6-14.6 [facility] Comment on above: Performed By: #### L 500.4100, L100.0100, L501.9520, L501.9985, L500.4050, L506.1000 #### [facility] [address] [place], [address] Hematocrit (Bld) [Volume fraction] 37.2 % Normal 37-47 [facility] Comment on above: Performed By: #### L 500.4100, L100.0100, L501.9520, L501.9985, L500.4050, L506.1000 #### [facility] [address] [place], [address] Hemoglobin (Bld) [Mass/Vol] 11.7 g/dL Low 12.0-15.0 [facility] Comment on above: Performed By: #### L 500.4100, L100.0100, L501.9520, L501.9985, L500.4050, L506.1000 #### [facility] [address] [place], [address] IG% 0.400 Normal 0.0-0.9 [facility] Comment on above: Result Comment: IG% - Immature Granulocytes (promyelocytes, myelocytes and metamyelocytes) > 1% indicates that a LEFT SHIFT is Present. Performed By: #### L 500.4100, L100.0100, L501.9520, L501.9985, L500.4050, L506.1000 #### [facility] [address] [place], [address] Lymphocytes/100 WBC (Bld) 27.2 % Normal 19-41 [facility] Comment on above: Performed By: #### L 500.4100, L100.0100, L501.9520, L501.9985, L500.4050, L506.1000 #### [facility] [address] [place], [address] MCH (RBC) [Entitic mass] 31.2 pg Normal 27.0-32.0 [facility] Comment on above: Performed By: #### L 500.4100, L100.0100, L501.9520, L501.9985, L500.4050, L506.1000 #### [facility] [address] [place], [address] MCHC (RBC) [Mass/Vol] 31.5 g/dL Low 32-36 [facility] Comment on above: Performed By: #### L 500.4100, L100.0100, L501.9520, L501.9985, L500.4050, L506.1000 #### [facility] [address] [place], [address] MCV (RBC) [Entitic vol] 99.2 fL High 81-99 [facility] Comment on above: Performed By: #### L 500.4100, L100.0100, L501.9520, L501.9985, L500.4050, L506.1000 #### [facility] [address] [place], [address] Monocytes/100 WBC (Bld) 5.7 % Normal 0-10 [facility] Comment on above: Performed By: #### L 500.4100, L100.0100, L501.9520, L501.9985, L500.4050, L506.1000 #### [facility] [address] [place], [address] Neutrophils/100 WBC (Bld) 65.9 % Normal 47-70 [facility] Comment on above: Performed By: #### L 500.4100, L100.0100, L501.9520, L501.9985, L500.4050, L506.1000 #### [facility] [address] [place], [address] Nucleated RBC (Bld) [#/Vol] 0 10*3/uL Normal 0-5 [facility] Comment on above: Performed By: #### L 500.4100, L100.0100, L501.9520, L501.9985, L500.4050, L506.1000 #### [facility] [address] [place], [address] Platelet mean volume (Bld) [Entitic vol] 10.8 fL Normal 6.2-12.0 [facility] Comment on above: Performed By: #### L 500.4100, L100.0100, L501.9520, L501.9985, L500.4050, L506.1000 #### [facility] [address] [place], [address] Platelets (Bld) [#/Vol] 231 10*3/uL Normal 150-450 [facility] Comment on above: Performed By: #### L 500.4100, L100.0100, L501.9520, L501.9985, L500.4050, L506.1000 #### [facility] [address] [place], [address] RBC (Bld) [#/Vol] 3.75 10*6/uL Low 4.2-5.4 [facility] Comment on above: Performed By: #### L 500.4100, L100.0100, L501.9520, L501.9985, L500.4050, L506.1000 #### [facility] [address] [place], [address] RDW SD 48.9 fl High 35.1-43.9 [facility] Comment on above: Performed By: #### L 500.4100, L100.0100, L501.9520, L501.9985, L500.4050, L506.1000 #### [facility] [address] [place], [address] WBC (Bld) [#/Vol] 6.8 10*3/uL Normal 4.4-11.0 [facility] Comment on above: Performed By: #### L 500.4100, L100.0100, L501.9520, L501.9985, L500.4050, L506.1000 #### [facility] [address], [address] Comprehensive Metabolic [facility] 09-05-2024 Albumin [Mass/Vol] 2.7 g/dL Low 3.2-5.0 [facility] Comment on above: Performed By: #### L 500.4100, L100.0100, L501.9520, L501.9985, L500.4050, L506.1000 #### [facility] [address] [place], [address] Albumin/Globulin [Mass ratio] 0.6 {ratio} Low 0.9-2.4 [facility] Comment on above: Performed By: #### L 500.4100, L100.0100, L501.9520, L501.9985, L500.4050, L506.1000 #### [facility] [address] [place], [address] ALK P 109 U/L Normal 45-117 [facility] Comment on above: Performed By: #### L 500.4100, L100.0100, L501.9520, L501.9985, L500.4050, L506.1000 #### [facility] [address] [place], [address] ALT [Catalytic activity/Vol] 11 U/L Low 13-56 [facility] Comment on above: Performed By: #### L 500.4100, L100.0100, L501.9520, L501.9985, L500.4050, L506.1000 #### [facility] [address] [place], [address] AST [Catalytic activity/Vol] 14 U/L Low 15-37 [facility] Comment on above: Performed By: #### L 500.4100, L100.0100, L501.9520, L501.9985, L500.4050, L506.1000 #### [facility] [address] [place], [address] Bilirubin [Mass/Vol] 0.30 mg/dL Normal 0.20-1.00 [facility] Comment on above: Result Comment: For patients on eltrombopag therapy, use of Dimension Jachin TBIL is not recommended. Performed By: #### L 500.4100, L100.0100, L501.9520, L501.9985, L500.4050, L506.1000 #### [facility] [address] [place], [address] BUN/CRE 17.9 RATIO Normal 10-20 [facility] Comment on above: Performed By: #### L 500.4100, L100.0100, L501.9520, L501.9985, L500.4050, L506.1000 #### [facility] [address] [place], [address] CA,Total 8.6 mg/dL Normal 8.5-10.1 [facility] Comment on above: Performed By: #### L 500.4100, L100.0100, L501.9520, L501.9985, L500.4050, L506.1000 #### [facility] [address] [place], [address] Chloride [Moles/Vol] 107 mmol/L Normal 98-107 [facility] Comment on above: Performed By: #### L 500.4100, L100.0100, L501.9520, L501.9985, L500.4050, L506.1000 #### [facility] [address] [place], [address] CO2 [Moles/Vol] 26.0 mmol/L Normal 21.0-32.0 [facility] Comment on above: Performed By: #### L 500.4100, L100.0100, L501.9520, L501.9985, L500.4050, L506.1000 #### [facility] [address] [place], [address] Creatinine [Mass/Vol] 1.17 mg/dL High 0.55-1.02 [facility] Comment on above: Result Comment: The validity of the calculated GFR GFRAA in patients over 70 years has not been determined. Clinical correlation is essential. Performed By: #### L 500.4100, L100.0100, L501.9520, L501.9985, L500.4050, L506.1000 #### [facility] [address] [place], [address] EST GFR - AA 57 mL/min Low >60 [facility] Comment on above: Result Comment: Afri can Vincentian GFR Calc Performed By: #### L 500.4100, L100.0100, L501.9520, L501.9985, L500.4050, L506.1000 #### [facility] [address] [place], [address] GAP 5 Normal 5-15 [facility] Comment on above: Performed By: #### L 500.4100, L100.0100, L501.9520, L501.9985, L500.4050, L506.1000 #### [facility] [address] [place], [address] GFR/1.73 sq M.predicted among non-blacks MDRD (S/P/Bld) [Vol rate/Area] 47 mL/min/{1.73_m2} Low >60 [facility] Comment on above: Result Comment: Non- GFR Calc Performed By: #### L 500.4100, L100.0100, L501.9520, L501.9985, L500.4050, L506.1000 #### [facility] [address] [place], [address] Globulin (S) [Mass/Vol] 4.3 g/dL High 2.2-4.2 [facility] Comment on above: Performed By: #### L 500.4100, L100.0100, L501.9520, L501.9985, L500.4050, L506.1000 #### [facility] [address] [place], [address] Glucose [Mass/Vol] 140 mg/dL High 74-106 [facility] Comment on above: Result Comment: Fast ing Glucose result greater than or equal to 126 mg/dL suggests DIABETES MELLITUS per A.D.A. criteria. Performed By: #### L 500.4100, L100.0100, L501.9520, L501.9985, L500.4050, L506.1000 #### [facility] [address] [place], [address] Potassium [Moles/Vol] 3.9 mmol/L Normal 3.5-5.1 [facility] Comment on above: Performed By: #### L 500.4100, L100.0100, L501.9520, L501.9985, L500.4050, L506.1000 #### [facility] [address] [place], [address] Sodium [Moles/Vol] 138 mmol/L Normal 136-145 [facility] Comment on above: Performed By: #### L 500.4100, L100.0100, L501.9520, L501.9985, L500.4050, L506.1000 #### [facility] [address] [place], [address] T PROT 7.0 g/dL Normal 6.4-8.2 [facility] Comment on above: Performed By: #### L 500.4100, L100.0100, L501.9520, L501.9985, L500.4050, L506.1000 #### [facility] [address] [place], [address] Urea nitrogen [Mass/Vol] 21 mg/dL High 7-18 [facility] Comment on above: Performed By: #### L 500.4100, L100.0100, L501.9520, L501.9985, L500.4050, L506.1000 #### [facility] [address] [place], [address] Hemoglobin A1con 09-05-2024 HbA1c (Bld) [Mass fraction] 5.5 % Normal 3.8-5.6 [facility] Comment on above: Order Comment: ADD O N FROM TODAY [id number] Result Comment: Norm al < 5.7 % Prediabetic 5.7 - 6.4 % Diabetic >or= 6.5 % Please note range changes. Performed By: #### L 500.4100, L100.0100, L501.9520, L501.9985, L500.4050, L506.1000 #### [facility] [address] [place], [address] Lipid Profileon 09-05-2024 Cholesterol [Mass/Vol] 155 mg/dL Normal 200 [facility] Comment on above: Result Comment: <200 mg/dL Desirable 200-240 mg/dL Borderline >240 mg/dL High Risk Performed By: #### L 500.4100, L100.0100, L501.9520, L501.9985, L500.4050, L506.1000 #### [facility] [address] [place], [address] Cholesterol in HDL [Mass/Vol] 54 mg/dL Normal [facility] Comment on above: Result Comment: The drugs N-Acetylcysteine and Metamizole may falsely depress this assay. Reference Range HDL <40 mg/dL Low HDL Cholesterol HDL >or= 60 mg/dL High HDL Cholesterol Performed By: #### L 500.4100, L100.0100, L501.9520, L501.9985, L500.4050, L506.1000 #### [facility] [address] [place], [address] Cholesterol in LDL [Mass/Vol] 79 mg/dL Normal 0-130 [facility] Comment on above: Performed By: #### L 500.4100, L100.0100, L501.9520, L501.9985, L500.4050, L506.1000 #### [facility] [address] [place], [address] Cholesterol in VLDL [Mass/Vol] 22 mg/dL Normal 5-40 [facility] Comment on above: Performed By: #### L 500.4100, L100.0100, L501.9520, L501.9985, L500.4050, L506.1000 #### [facility] [address] [place], [address] Triglyceride [Mass/Vol] 109 mg/dL Normal [facility] Comment on above: Result Comment: The drugs N-Acetylcysteine and Metamizole may falsely depress this assay. Serum Triglycerides Reference Interval Normal <150 mg/dL Borderline high 150 - 199 mg/dL High 200 - 499 mg/dL Very High > or = 500 mg/dL Performed By: #### L 500.4100, L100.0100, L501.9520, L501.9985, L500.4050, L506.1000 #### [facility] [address] [place], [address] Thyroid Stim Hormone (TSH)on 09-05-2024 TSH 3.320 uIU/mL Normal 0.358-3.740 [facility] Comment on above: Performed By: #### L 500.4100, L100.0100, L501.9520, L501.9985, L500.4050, L506.1000 #### [facility] [address] [place], [address] Vitamin D,25 Hydroxyon 09-05 Vitamin D 25-OH 33.3 ng/mL Normal [facility] Comment on above: Result Comment: Mell min D 25(OH) Status Range Deficiency <20 ng/mL (50nmol/L) Insufficiency 20 - 30 ng/mL (50 - 75 nmol/L) Sufficiency 30 - 100 ng/mL (75 - 250 nmol/L) Toxicity >100 ng/mL (>250 nmol/L) Performed By: #### L 500.4100, L100.0100, L501.9520, L501.9985, L500.4050, L506.1000 #### [facility] [address] [place], [address] CBC W Auto Differential pane l (Bld)on 08-18-2024 Basophils (Bld) [#/Vol] 0.03 10*3/uL Normal <0.11 [facility] Comment on above: Order Comment: Speci men Type: BLOOD SPECIMEN Ordering Facility: [facility] Address: [address] [place], [place] [address] [address] Performed By: #### 5 7021-8 #### [facility] CLIA [id number] [address] [place] [address] [place] Basophils/100 WBC (Bld) 0.4 % Normal [facility] Comment on above: Order Comment: Speci men Type: BLOOD SPECIMEN Ordering Facility: [facility] Address: [address] [place] [address] Performed By: #### 5 7021-8 #### [facility] CLIA [id number] [address] [place] [address] [place] Differential cell count method Nom (Bld) Auto [facility] Comment on above: Order Comment: Speci men Type: BLOOD SPECIMEN Ordering Facility: [facility] Address: [address] [place] [address] Performed By: #### 5 7021-8 #### [facility] CLIA [id number] [address] [place] [address] [place] Eosinophils (Bld) [#/Vol] 0.08 10*3/uL Normal <0.46 [facility] Comment on above: Order Comment: Speci men Type: BLOOD SPECIMEN Ordering Facility: [facility] Address: [address] [place] [address] Performed By: #### 5 7021-8 #### [facility] CLIA [id number] [address] [place] Eosinophils/100 WBC (Bld) 1.1 % [facility] Comment on above: Order Comment: Speci men Type: BLOOD SPECIMEN Ordering Facility: [facility] Address: [address] [place] [address] Performed By: #### 5 7021-8 #### [facility] CLIA [id number] [address] [place] Erythrocyte distribution width (RBC) [Ratio] 13.4 % Normal 11.5-15.0 [facility] Comment on above: Order Comment: Speci men Type: BLOOD SPECIMEN Ordering Facility: [facility] Address: [address] [place] [address] Performed By: #### 5 7021-8 #### [facility] CLIA [id number] [address] [place] Hematocrit (Bld) [Volume fraction] 37.4 % Normal 36.0-46.0 [facility] Comment on above: Order Comment: Speci men Type: BLOOD SPECIMEN Ordering Facility: [facility] Address: [address] [place] [address] Performed By: #### 5 7021-8 #### [facility] CLIA [id number] [address] [place] [address] [place] Hemoglobin (Bld) [Mass/Vol] 11.7 g/dL Normal 11.5-15.5 [facility] Comment on above: Order Comment: Speci men Type: BLOOD SPECIMEN Ordering Facility: [facility] Address: [address] [place] [address] Performed By: #### 5 7021-8 #### [facility] CLIA [id number] [address] [place] [address] [place] Immature granulocytes (Bld) [#/Vol] 10*3/uL Normal <0.10 [facility] Comment on above: Order Comment: Speci men Type: BLOOD SPECIMEN Ordering Facility: [facility] Address: [address] [place] [address] Performed By: #### 5 7021-8 #### [facility] CLIA [id number] [address] [place] Immature granulocytes/100 WBC (Bld) 0.3 % Normal [facility] Comment on above: Order Comment: Speci men Type: BLOOD SPECIMEN Ordering Facility: [facility] Address: [address] [place] [address] Performed By: #### 5 7021-8 #### [facility] CLIA [id number] [address] [place] [address] [place] Lymphocytes (Bld) [#/Vol] 2.39 10*3/uL Normal 1.00-4.00 [facility] Comment on above: Order Comment: Speci men Type: BLOOD SPECIMEN Ordering Facility: [facility] Address: [facility] [place] [address] Performed By: #### 5 7021-8 #### [facility] CLIA [id number] [address] Lymphocytes/100 WBC (Bld) 32.0 % Normal [facility] Comment on above: Order Comment: Speci men Type: BLOOD SPECIMEN Ordering Facility: [facility] Address: [address] [place] [address] Performed By: #### 5 7021-8 #### [facility] CLIA [id number] [address] MCH (RBC) [Entitic mass] 31.5 pg Normal 26.0-34.0 [facility] Comment on above: Order Comment: Speci men Type: BLOOD SPECIMEN Ordering Facility: [facility] Address: [address] [place] [address] Performed By: #### 5 7021-8 #### [facility] CLIA [id number] [address] [place] MCHC (RBC) [Mass/Vol] 31.3 g/dL Normal 30.5-36.0 [facility] Comment on above: Order Comment: Speci men Type: BLOOD SPECIMEN Ordering Facility: [facility] Address: [address] [place] [address] Performed By: #### 5 7021-8 #### [facility] CLIA [id number] [address] MCV (RBC) [Entitic vol] 100.8 fL High 80.0-100.[address] [facility] Comment on above: Order Comment: Speci men Type: BLOOD SPECIMEN Ordering Facility: [facility] Address: [address] [place] [address] Performed By: #### 5 7021-8 #### [facility] CLIA [id number] [address] Monocytes (Bld) [#/Vol] 0.47 10*3/uL Normal <0.87 [facility] Comment on above: Order Comment: Speci men Type: BLOOD SPECIMEN Ordering Facility: [facility] Address: [address] [place] [address] Performed By: #### 5 7021-8 #### [facility] CLIA [id number] [address] [place] [address] [place] Monocytes/100 WBC (Bld) 6.3 % Normal [facility] Comment on above: Order Comment: Speci men Type: BLOOD SPECIMEN Ordering Facility: [facility] Address: [address] [place] [address] Performed By: #### 5 7021-8 #### [facility] CLIA [id number] [address] [place] [address] [place] Neutrophils (Bld) [#/Vol] 4.48 10*3/uL Normal 1.45-7.50 [facility] Comment on above: Order Comment: Speci men Type: BLOOD SPECIMEN Ordering Facility: [facility] Address: [address] [place] [address] Performed By: #### 5 7021-8 #### [facility] CLIA [id number] [address] [place] [address] [place] Neutrophils/100 WBC (Bld) 59.9 % Normal [facility] Comment on above: Order Comment: Speci men Type: BLOOD SPECIMEN Ordering Facility: [facility] Address: [address] [place] [address] Performed By: #### 5 7021-8 #### [facility] CLIA [id number] [address] [place] [address] [place] Nucleated RBC (Bld) [#/Vol] 10*3/uL Normal <0.01 [facility] Comment on above: Order Comment: Speci men Type: BLOOD SPECIMEN Ordering Facility: [facility] Address: [address] [place] [address] Performed By: #### 5 7021-8 #### [facility] CLIA [id number] [address] [place] [address] [place] Nucleated RBC/100 WBC (Bld) [Ratio] 0.0 /100 WBC Normal [facility] Comment on above: Order Comment: Speci men Type: BLOOD SPECIMEN Ordering Facility: [facility] Address: [address] [place] [address] Performed By: #### 5 7021-8 #### [facility] CLIA [id number] [address] [place] [address] [place] Platelet mean volume (Bld) [Entitic vol] 10.8 fL Normal 9.0-12.7 [facility] Comment on above: Order Comment: Speci men Type: BLOOD SPECIMEN Ordering Facility: [facility] Address: [address] [place] [address] Performed By: #### 5 7021-8 #### [facility] CLIA [id number] [address] [place] [address] [place] Platelets (Bld) [#/Vol] 215 10*3/uL Normal 150-400 [facility] Comment on above: Order Comment: Speci men Type: BLOOD SPECIMEN Ordering Facility: [facility] Address: [address] [place] [address] Performed By: #### 5 7021-8 #### [facility] CLIA [id number] [address] [place] [address] [place] RBC (Bld) [#/Vol] 3.71 10*6/uL Low 3.90-5.20 [facility] Comment on above: Order Comment: Speci men Type: BLOOD SPECIMEN Ordering Facility: [facility] Address: [address] [place] [address] Performed By: #### 5 7021-8 #### [facility] CLIA [id number] [address] [place] [address] [place] WBC (Bld) [#/Vol] 7.47 10*3/uL Normal 3.70-11.00 [facility] Comment on above: Order Comment: Speci men Type: BLOOD SPECIMEN Ordering Facility: [facility] Address: [address] [place] [address] Performed By: #### 5 7021-8 #### [facility] CLIA [id number] [address] [place] [address] [place] [facility] [place] Comprehensive metabolic 2000 panelon 08-18-2024 Albumin [Mass/Vol] 3.5 g/dL Low 3.9-4.9 [facility] Comment on above: Order Comment: Speci men Type: BLOOD SPECIMEN Ordering Facility: [facility] Address: [address] [place] [address] Performed By: #### 2 4323-8 #### [facility] CLIA [id number] [address] [place] ALP [Catalytic activity/Vol] 109 U/L Normal 34-123 [facility] Comment on above: Order Comment: Speci men Type: BLOOD SPECIMEN Ordering Facility: [facility] Address: [address] [place] [address] Performed By: #### 2 4323-8 #### [facility] CLIA [id number] [address] [place] [address] [place] ALT [Catalytic activity/Vol] 9 U/L Normal 7-38 [facility] Comment on above: Order Comment: Speci men Type: BLOOD SPECIMEN Ordering Facility: [facility] Address: [address] [place] [address] Performed By: #### 2 4323-8 #### [facility] CLIA [id number] [address] Anion gap [Moles/Vol] 10 mmol/L Normal 8-15 [facility] Comment on above: Order Comment: Speci men Type: BLOOD SPECIMEN Ordering Facility: [facility] Address: [address] [place] [address] Performed By: #### 2 4323-8 #### [facility] CLIA [id number] [address] [place] AST [Catalytic activity/Vol] 20 U/L Normal 13-35 [facility] Comment on above: Order Comment: Speci men Type: BLOOD SPECIMEN Ordering Facility: [facility] Address: [address] [place] [address] Performed By: #### 2 4323-8 #### [facility] CLIA [id number] [address] Bilirubin [Mass/Vol] 0.3 mg/dL Normal 0.2-1.3 [facility] Comment on above: Order Comment: Speci men Type: BLOOD SPECIMEN Ordering Facility: [facility] Address: [address] [place] [address] Performed By: #### 2 4323-8 #### [facility] CLIA [id number] [address] [place] [address] [place] Calcium [Mass/Vol] 8.8 mg/dL Normal 8.5-10.2 [facility] Comment on above: Order Comment: Speci men Type: BLOOD SPECIMEN Ordering Facility: [facility] Address: [address] [place] [address] Performed By: #### 2 4323-8 #### [facility] CLIA [id number] [address] [place] [address] [place] Chloride [Moles/Vol] 105 mmol/L Normal 98-107 [facility] Comment on above: Order Comment: Speci men Type: BLOOD SPECIMEN Ordering Facility: [facility] Address: [address] [place] [address] Performed By: #### 2 4323-8 #### [facility] CLIA [id number] [address] [place] [address] [place] CO2 [Moles/Vol] 29 mmol/L Normal 22-30 [facility] Comment on above: Order Comment: Speci men Type: BLOOD SPECIMEN Ordering Facility: [facility] Address: [address] [place] [address] Performed By: #### 2 4323-8 #### [facility] CLIA [id number] [address] [place] [address] [place] Creatinine [Mass/Vol] 1.13 mg/dL High 0.58-0.96 [facility] Comment on above: Order Comment: Speci men Type: BLOOD SPECIMEN Ordering Facility: [facility] Address: [address] [place] [address] Performed By: #### 2 4323-8 #### [facility] CLIA [id number] [address] [place] [address] [place] Creatinine and Glomerular filtration rate.predicted panel (S/P/Bld) 48 mL/min/1.73m??? Low >=60 [facility] Comment on above: Order Comment: Speci men Type: BLOOD SPECIMEN Ordering Facility: [facility] Address: [address] [place] [address] Result Comment: Patience mated Glomerular Filtration Rate [...] GFR. Performed By: #### 2 4323-8 #### [facility] CLIA [id number] [address] [place] [address] [place] Glucose [Mass/Vol] 105 mg/dL High 74-99 [facility] Comment on above: Order Comment: Hilary ocampo Type: BLOOD SPECIMEN Ordering Facility: [facility] Address: [address] [place] [address] Result Comment: The [place] [employer] (ADA) provides guidance for cutoff [...] Standards of Medical Care in Diabetes 2016, [employer] [employer]. Diabetes Care. 2016.39(Suppl 1). Performed By: #### 2 4323-8 #### [facility] CLIA [id number] [address] [place] Potassium [Moles/Vol] 4.2 mmol/L Normal 3.7-5.1 [facility] Comment on above: Order Comment: Hilary ocampo Type: BLOOD SPECIMEN Ordering Facility: [facility] Address: [address] [place] [address] Performed By: #### 2 4323-8 #### [facility] CLIA [id number] [address] STATES OF [facility] Protein [Mass/Vol] 7.1 g/dL Normal 6.3-8.0 [facility] Comment on above: Order Comment: Hilary ocampo Type: BLOOD SPECIMEN Ordering Facility: [facility] Address: [address] [place] [address] Performed By: #### 2 4323-8 #### [facility] CLIA [id number] [address] Sodium [Moles/Vol] 144 mmol/L Normal 136-144 [facility] Comment on above: Order Comment: Speci men Type: BLOOD SPECIMEN Ordering Facility: [facility] Address: [address] [place] [address] Performed By: #### 2 4323-8 #### [facility] CLIA [id number] [address] Urea nitrogen [Mass/Vol] 24 mg/dL High 7- [facility] Comment on above: Order Comment: Speci men Type: BLOOD SPECIMEN Ordering Facility: [facility] Address: [address] [place] [address] Performed By: #### 2 4323-8 #### [facility] CLIA [id number] [address] STATES OF [facility] CBC W Auto Differential pane l (Bld)on 04-28-2024 Basophils (Bld) [#/Vol] 0.03 10*3/uL [facility] Basophils/100 WBC (Bld) 0.4 % [facility] Differential cell count method Nom (Bld) Auto [facility] Eosinophils (Bld) [#/Vol] 0.11 10*3/uL [facility] Eosinophils/100 WBC (Bld) 1.4 % [facility] Erythrocyte distribution width (RBC) [Ratio] 13.4 % 11.5 - 15.0 % [facility] Hematocrit (Bld) [Volume fraction] 38.3 % 36.0 - 46.0 % [facility] Hemoglobin (Bld) [Mass/Vol] 12.2 g/dL 11.5 - 15.5 g/dL [facility] Immature granulocytes (Bld) [#/Vol] 0.04 10*3/uL [facility] Immature granulocytes/100 WBC (Bld) 0.5 % [facility] Interpretation and review of laboratory results Abnormal [facility] Lymphocytes (Bld) [#/Vol] 2.04 10*3/uL [facility] Lymphocytes/100 WBC (Bld) 26.0 % [facility] MCH (RBC) [Entitic mass] 32.0 pg 26.0 - 34.0 pg [facility] MCHC (RBC) [Mass/Vol] 31.9 g/dL 30.5 - 36.0 g/dL [facility] MCV (RBC) [Entitic vol] 100.5 fL High 80.0 - 100.0 fL [facility] Monocytes (Bld) [#/Vol] 0.53 10*3/uL [facility] Monocytes/100 WBC (Bld) 6.7 % [facility] Neutrophils (Bld) [#/Vol] 5.11 10*3/uL [facility] Neutrophils/100 WBC (Bld) 65.0 % [facility] Nucleated RBC (Bld) [#/Vol] [facility] Nucleated RBC/100 WBC (Bld) [Ratio] 0.0 % /100 WBC [facility] Platelet mean volume (Bld) [Entitic vol] 11.0 fL 9.0 - 12.7 fL [facility] Platelets (Bld) [#/Vol] 206 10*3/uL [facility] RBC (Bld) [#/Vol] 3.81 10*6/uL Low 3.90 - 5.2 0 m/uL [facility] WBC (Bld) [#/Vol] 7.86 10*3/uL [facility] Comprehensive metabolic 2000 panelon 04-28-2024 Albumin [Mass/Vol] 3.7 g/dL Low 3.9 - 4.9 g/dL [facility] ALP [Catalytic activity/Vol] 141 U/L High 34 - 123 U/L [facility] ALT [Catalytic activity/Vol] 8 U/L 7 - 38 U/L [facility] Anion gap [Moles/Vol] 10 mmol/L 8 - 15 mmol/L [facility] AST [Catalytic activity/Vol] 16 U/L 13 - 35 U/L [facility] Bilirubin [Mass/Vol] 0.2 mg/dL 0.2 - 1 .3 mg/dL [facility] Calcium [Mass/Vol] 9.2 mg/dL 8.5 - 10. 2 mg/dL [facility] Chloride [Moles/Vol] 103 mmol/L 98 - 10 7 mmol/L [facility] CO2 [Moles/Vol] 27 mmol/L 22 - 30 mmol/L [facility] Creatinine [Mass/Vol] 1.18 mg/dL High 0.58 - 0.96 mg/dL [facility] GFR/1.73 sq M.predicted among non-blacks MDRD (S/P/Bld) [Vol rate/Area] 46 mL/min/{1.73_m2} Low - PINF [facility] Comment on above: Estimated Glomerular Filtration Rate [...] 112 mg/dL High 74 - 99 mg/dL [facility] Comment on above: The [place] Di[employer] s Association (ADA) provides guidance for [...] Standards of Medical Care in Diabetes 2016, [place] [employer]. Diabetes Care. 2016.39(Suppl 1). Interpretation and review of laboratory results Abnormal [facility] Potassium [Moles/Vol] 4.3 mmol/L 3.7 - 5.1 mmol/L [facility] Protein [Mass/Vol] 7.5 g/dL 6.3 - 8.0 g/dL [facility] Sodium [Moles/Vol] 140 mmol/L 136 - 144 mmol/L [facility] Urea nitrogen [Mass/Vol] 25 mg/dL High 7 - 21 mg/dL [facility] CBC W Auto Differential pane l (Bld)on 03-31-2024 Basophils (Bld) [#/Vol] 0.03 10*3/uL NINF [facility] Basophils/100 WBC (Bld) 0.4 % C [facility] Differential cell count method Nom (Bld) Auto [facility] Eosinophils (Bld) [#/Vol] 0.05 10*3/uL [facility] Eosinophils/100 WBC (Bld) 0.7 % [facility] Erythrocyte distribution width (RBC) [Ratio] 13.4 % 11.5 - 15.0 % [facility] Hematocrit (Bld) [Volume fraction] 44.9 % 36.0 - 46.0 % [facility] Hemoglobin (Bld) [Mass/Vol] 13.7 g/dL 11.5 - 15.5 g/dL [facility] Immature granulocytes (Bld) [#/Vol] [facility] Immature granulocytes/100 WBC (Bld) 0.1 % [facility] Interpretation and review of laboratory results Abnormal [facility] Lymphocytes (Bld) [#/Vol] 2.15 10*3/uL [facility] Lymphocytes/100 WBC (Bld) 30.0 % [facility] MCH (RBC) [Entitic mass] 31.4 pg 26.0 - 34.0 pg [facility] MCHC (RBC) [Mass/Vol] 30.5 g/dL 30.5 - 36.0 g/dL [facility] MCV (RBC) [Entitic vol] 102.7 fL High 80.0 - 100.0 fL [facility] Monocytes (Bld) [#/Vol] 0.36 10*3/uL [facility] Monocytes/100 WBC (Bld) 5.0 % C [facility] Neutrophils (Bld) [#/Vol] 4.56 10*3/uL [facility] Neutrophils/100 WBC (Bld) 63.8 % [facility] Nucleated RBC (Bld) [#/Vol] [facility] Nucleated RBC/100 WBC (Bld) [Ratio] 0.0 % /100 WBC [facility] Platelet mean volume (Bld) [Entitic vol] 10.6 fL 9.0 - 12.7 fL [facility] Platelets (Bld) [#/Vol] 203 10*3/uL [facility] RBC (Bld) [#/Vol] 4.37 10*6/uL 3.90 - 5.2 0 m/uL [facility] WBC (Bld) [#/Vol] 7.16 10*3/uL [facility] Comprehensive metabolic 2000 panelon 03-31-2024 Albumin [Mass/Vol] 3.7 g/dL Low 3.9 - 4.9 g/dL [facility] ALP [Catalytic activity/Vol] 147 U/L High 34 - 123 U/L [facility] ALT [Catalytic activity/Vol] 10 U/L 7 - 38 U/L [facility] Anion gap [Moles/Vol] 12 mmol/L 8 - 15 mmol/L [facility] AST [Catalytic activity/Vol] 23 U/L 13 - 35 U/L [facility] Bilirubin [Mass/Vol] 0.3 mg/dL 0.2 - 1 .3 mg/dL [facility] Calcium [Mass/Vol] 9.6 mg/dL 8.5 - 10. 2 mg/dL [facility] Chloride [Moles/Vol] 104 mmol/L 98 - 10 7 mmol/L [facility] CO2 [Moles/Vol] 23 mmol/L 22 - 30 mmol/L [facility] Creatinine [Mass/Vol] 1.22 mg/dL High 0.58 - 0.96 mg/dL [facility] GFR/1.73 sq M.predicted among non-blacks MDRD (S/P/Bld) [Vol rate/Area] 44 mL/min/{1.73_m2} Low - PINF [facility] Comment on above: Estimated Glomerular Filtration Rate [...] [Mass/Vol] 98 mg/dL 74 - 99 mg/dL [facility] Comment on above: The [employer] Diabete s Association (ADA) provides guidance for [...] Standards of Medical Care in Diabetes 2016, [place] [employer]. Diabetes Care. 2016.39(Suppl 1). Interpretation and review of laboratory results Abnormal [facility] Potassium [Moles/Vol] 5.3 mmol/L High 3.7 - 5.1 mmol/L [facility] Protein [Mass/Vol] 7.9 g/dL 6.3 - 8.0 g/dL [facility] Sodium [Moles/Vol] 139 mmol/L 136 - 144 mmol/L [facility] Urea nitrogen [Mass/Vol] 27 mg/dL High 7 - 21 mg/dL [facility] SOCIAL WORKon 02-19-2024 SOCIAL WORK HNO ID: [id number] Author: KRYSTYNA FOX LSW Service: Social Work Author Type: Jewel Grinder Type: Social Work Filed: 02/19/2024 17:48 Note Text: Summary: Post DC Note/[facility] SOCIAL WORK PROGRESS NOTE Name: Jackelyn Bradshaw Received message from [place]/Member Desk . She said that patient's PCP will not sign for [employer] . She suggested [facility] or [facility]. [facility] already responded they are out of area. Referral sent to [facility]. Signature: MICHELA Chanel Date: February 19, 2024 Time: 5:39 PM Normal [facility] THERAPY NTon 02-19-2024 THERAPY NT HNO ID: [id number] Author: ELLE HOOVER PT Service: Physical Therapy Author Type: Physical Therapist Type: Therapy (PT/OT/Speech/Resp) Filed: 02/19/2024 12:08 Note Text: Summary: PT discharge note Physical Therapy Detention Facility Treatment Summary SERVICE DATE: 02/19/2024 SERVICE TIME: 850 to 929 ROOM: [place] [address] Discharge Therapy Services Discharged (date): 02/19/24 Discharged To: Home Home Exercise Program Status: Assist Ability To Apply Precautions Upon Discharge: Requires Cues Equipment Issued: Gait Belt, Leg Car Porter PT 6 Clicks Score: 22 DISCHARGE RECOMMENDATIONS [...] 20 Stairs CURRENT HOSPITAL COURSE Admt to [facility] on 01/11 due to mechanical fall [...] Muscle Weakness (generalized) TREATMENT INTERVENTIONS Therapeutic Activity (98137) Timed Code Treatment (minutes): 39 Skilled Treatment Time (minutes): 39 EXERCISE Exercises Exercise: Review of supine and sitting exercises this date with handouts given. TRAINING AND EDUCATION PROVIDED Discharge Planning, Diseas (more content not included)... Normal [facility] THERAPY NT HNO ID: [id number] Author: ELLE HOOVER PT Service: Physical Therapy Author Type: Physical Therapist Type: Therapy (PT/OT/Speech/Resp) Filed: 02/19/2024 08:18 Note Text: Summary: PT discharge instruction PT Discharge Instructions The PT team at [facility] has this list of discharge instructions specific [...] PT please contact the PT team at [phone]. Elle Hoover PT Yamilka Rutledge PT Leticia Walters PT Will Moss TOOL MACHINIST Christophe Beckham [facility]OL MACHINIST [facility] HNO ID: [id number] Author: ARNIE GALVIN APRN.ROBOTICS MECHANIC Service: Hospital Medicine Author Type: Nurse Practitioner Type: Discharge Summary Filed: 02/18/2024 11:28 Note Text: Attestation signed by Hermes Richardson MD at 02/26/2024 9:28 PM [facility] STAFF PHYSICIAN NOTE OF PERSONAL INVOLVEMENT IN [...] Urinary retention (POA: Yes) Hermes Richardson MD, [facility] Staff,Dept of Hospital Medicine February 26, 2024 [...] Hermes Richardson MD Nurse Practitioner: Denny Manning APRN.ROBOTICS MECHANIC Nurse Practitioner: Arnie Galvin APRN.CNP REASON FOR [...] breast cancer, arthritis, HTN, CKD, presented to [facility] on 01/12/2024 following a fall at home. She was found to have left hip fracture and underwent ORIF on 01/13/2024. Post-op course was complicated by acute blood loss anemia likely 2/2 surgery; Hgb was 7.6 at DC. FORTINO on CKD that was resolving at [place] with IVF; Cr 1.97. Lisinopril was initially held, but resumed at [place]. She is WBAT. She was started on Eliquis BID x30 days and completed course while at rehab. She was DCd with sal due to urinary retention and was able to successful remove cathter upon arriving to rehab. Urine cx was + <1000 staph warneri (no tx received). PT/OT recommended SNF at [place], thus she was transferred to [facility] for further rehab services. - progressed [...] - patient is being DCd home with [facility]. - follow up with PCP in [...] nursing WOUND/S (more content not included)... [facility] SOCIAL WORKon 02-18-2024 SOCIAL WORK HNO ID: [id number] Author: KRYSTYNA FOX LSW Service: Social Work Author Type: Jewel Grinder Type: Social Work Filed: 02/18/2024 14:13 Note Text: Summary: [place] paziing SOCIAL WORK PROGRESS NOTE Name: Jackelyn Bradshaw Gave patient contact info for [facility] agency. [place] 02/18 to home with [facility]. Signature: MICHELA Chanel Date: February 18, 2024 Time: 2:11 PM [facility] THERAPY NTon 02-18-2024 THERAPY NT HNO ID: [id number] Author: ELLE HOOVER PT Service: Physical Therapy Author Type: Certified Fire Investigator Type: Therapy (PT/OT/Speech/Resp) Filed: 02/18/2024 12:53 Note Text: Attestation signed by Elle Hoover PT at 02/18/2024 12:53 PM I reviewed and agree with the documentation corresponding to this therapy visit. SIGNATURE: Elle Hoover PT DATE: February 18, 2024 TIME: 12:53 PM Physical Therapy Detention Facility Treatment Summary SERVICE DATE: 02/18/2024 SERVICE TIME: 1112 to 1145 ROOM: [place] [address] PT 6 Clicks Score: 21 DISCHARGE RECOMMENDATIONS [...] decreased Stairs CURRENT HOSPITAL COURSE Admt to [facility] on 01/11 due to mechanical fall [...] Muscle Weakness (generalized) TREATMENT INTERVENTIONS Therapeutic Activity (58454), Gait Training (57962) Timed Code Treatment (minutes): 33 Skilled Treatment [...] February 18, 2024 TIME: 11:54 AM [facility] THERAPY NT HNO ID: [id number] Author: JAYE MARK OTR/aLshae Service: Occupational Therapy Author Type: Occupational Therapist Type: Therapy (PT/OT/Speech/Resp) Filed: 02/18/2024 09:24 Note Text: Summary: OT discharge Occupational Therapy Detention Facility Treatment Summary SERVICE DATE: 02/18/2024 SERVICE TIME: 841 ROOM: [place] [address] OT 6 Clicks Score: 21 DISCHARGE RECOMMENDATIONS [...] Pt and family have 3in1 commode, ramp, mortgage consultant and extended tub bench. Handouts given for [...] Wheeled Walker CURRENT HOSPITAL COURSE Admt to [facility] on 01/11 due to mechanical fall [...] sleeps in (more content not included)... [facility] NUTRITIONon 02-17-2024 NUTRITION HNO ID: [id number] Author: MENDOZA COREAS RD Service: Nutrition Therapy Author Type: Registered Dietitian Type: Nutrition Filed: 02/17/2024 11:31 Note Text: NUTRITION THERAPY REASSESSMENT NOTE SERVICE DATE: 02/17/2024 SERVICE TIME: 11:25 AM Nutrition Assessment: Recommended Malnutrition Diagnosis: No Malnutrition Identified (02/03/24 1118 : Mendoza Coreas RD) Nutrition Diagnosis: Problem: Increased nutrient needs Related to: Wound healing As evidenced by: Procedure/surgery Estimated kilocalorie needs: 8688-6644 Calorie Calculation Method: [place]-St. Jeor (with activity factor) (adjusted body wt [...] February 17, 2024 TIME: 11:25 AM [facility] THERAPY NTon 02-17-2024 THERAPY NT HNO ID: [id number] Author: LETICIA WALTERS, HUGH Service: Physical Therapy Author Type: Certified Fire Investigator Type: Therapy (PT/OT/Speech/Resp) Filed: 02/17/2024 16:59 Note Text: Attestation signed by Leticia Walters PT at 02/17/2024 4:59 PM I reviewed and agree with the documentation corresponding to this therapy visit. SIGNATURE: Leticia Walters PT DATE: February 17, 2024 TIME: 4:59 PM Physical Therapy Detention Facility Treatment Summary SERVICE DATE: 02/17/2024 SERVICE TIME: 1336 to 1403 ROOM: [place] [address] PT 6 Clicks Score: 21 DISCHARGE RECOMMENDATIONS [...] decreased Stairs CURRENT HOSPITAL COURSE Admt to [facility] on 01/11 due to mechanical fall [...] Muscle Weakness (generalized) TREATMENT INTERVENTIONS Gait Training (49793) Timed Code Treatment (minutes): 27 Skilled Treatment Time (minutes): 27 EXERCISE None performed this session TRAINING AND EDUCATION PROVIDED Gait Pattern, Reduction of Deviations THERAPEUTIC SKILLS USED Activity Dosing, Cuing Verbal PLAN PT Frequency: 6 Times Per Week (3-4 weeks) Treatment Interventions: Strengthening, Functional Mobility Training SIGNATURE: Chase Bartlett PTA PATIENT NAME: Jackelyn Bradshaw DATE: February 17, 2024 TIME: 2:09 PM [facility] THERAPY NT HNO ID: [id number] Author: ELLE HOOVER, PT Service: Physical Therapy Author Type: Certified Fire Investigator Type: Therapy (PT/OT/Speech/Resp) Filed: 02/17/2024 13:33 Note Text: Attestation signed by Elle Hoover PT at 02/17/2024 1:33 PM I reviewed and agree with the documentation corresponding to this therapy visit. SIGNATURE: Elle Hoover PT DATE: February 17, 2024 TIME: 1:33 PM Physical Therapy Detention Facility Treatment Summary SERVICE DATE: 02/17/2024 SERVICE TIME: 1101 to 1131 ROOM: [place] [address] PT 6 Clicks Score: 21 DISCHARGE RECOMMENDATIONS [...] decreased Stairs CURRENT HOSPITAL COURSE Admt to [facility] on 01/11 due to mechanical fall [...] Muscle Weakness (generalized) TREATMENT INTERVENTIONS Gait Training (16552), Therapeutic Activity (54035) Timed Code Treatment (minutes): 29 Skilled Treatment [...] February 17, 2024 TIME: 11:44 AM [facility] THERAPY NT HNO ID: [id number] Author: BI GARCIA OTR/Lashae Service: ? Author Type: Occupational Therapist Type: Therapy (PT/OT/Speech/Resp) Filed: 02/17/2024 10:39 Note Text: Occupational Therapy Detention Facility Treatment Summary SERVICE DATE: 02/17/2024 SERVICE TIME: 0952 to 1023 ROOM: [place] [address] OT 6 Clicks Score: 21 DISCHARGE RECOMMENDATIONS Home OT (vs discharge to [facility]) Recommended Discharge Disposition Comments: Pt's discharge disposition [...] Additional Information donned sweatpants seated EOB with mortgage consultant, Min A required for pulling up over [...] Wheeled Walker CURRENT HOSPITAL COURSE Admt to [facility] on 01/11 due to mechanical fall [...] hour. Bas (more content not included)... [facility] SOCIAL WORKon 02-16-2024 SOCIAL WORK HNO ID: [id number] Author: KRYSTYNA FOX LSW Service: Social Work Author Type: Jewel Grinder Type: Social Work Filed: 02/17/2024 13:55 Note [...] Tissue Injury Attendees Present at Rounds: CM, ROBOTICS MECHANIC, NM, OT, PT, SW Needs Discussed on Rounds: Discharge Needs Mobility Plan of Care Anticipated Discharge Disposition: Home with Home Health Last Vitals: BP 162/75 Pulse 63 Temp (Src) 97.9 (Oral) Resp 16 Ht 5' 3 (1.60m) Wt 184 lb 1.4 oz (83.5kg) SpO2 99% BMI 32.62 kg/(m2). O2 Therapy: Room Air SW: [facility] Daughter agreeable with 02/18 DC PT: 40 ft distance over the weekend. Patient exceeded goals. OT: Worked with granddaughter during therapy treatment. Verbalized that she was able to care for her. Bed mobility will require continued work. Nursing: DOCUMENTED BY: MICHELA Chanel PATIENT NAME: Jackelyn Bradshaw DATE: February 16, 2024 TIME: 3:43 PM CSN: [id number] [facility] SOCIAL WORK HNO ID: [id number] Author: KRYSTYNA FOX LSW Service: Social Work Author Type: Jewel Grinder Type: Social Work Filed: 02/16/2024 10:29 Note [...] longer than that. She will let Juanis ([id number]) know. Tez said she doesn't think family needs any more training than what was done after conference. I think we can handle her. Signature: MICHELA Chanel Date: February 16, 2024 Time: 10:25 AM [facility] THERAPY NTon 02-16-2024 THERAPY NT HNO ID: [id number] Author: ELLE HOOVER PT Service: Physical Therapy Author Type: Certified Fire Investigator Type: Therapy (PT/OT/Speech/Resp) Filed: 02/16/2024 14:52 Note Text: Attestation signed by Elle Hoover PT at 02/16/2024 2:52 PM I reviewed and agree with the documentation corresponding to this therapy visit. SIGNATURE: Elle Hoover PT DATE: February 16, 2024 TIME: 2:52 PM Physical Therapy Detention Facility Treatment Summary SERVICE DATE: 02/16/2024 SERVICE TIME: 1414 to 1437 ROOM: [place] [address] PT 6 Clicks Score: 19 DISCHARGE RECOMMENDATIONS [...] decreased Stairs CURRENT HOSPITAL COURSE Admt to [facility] on 01/11 due to mechanical fall [...] Muscle Weakness (generalized) TREATMENT INTERVENTIONS Gait Training (84410) Timed Code Treatment (minutes): 23 Skilled Treatment [...] February 16, 2024 TIME: 2:44 PM [facility] THERAPY NT HNO ID: [id number] Author: CHASE BARTLETT PTA Service: Physical Therapy Author Type: Certified Fire Investigator Type: Therapy (PT/OT/Speech/Resp) Filed: 02/16/2024 10:38 Note Text: Attestation signed by Mickie Rutledge PT, DPT at 02/16/2024 12:24 PM I reviewed and agree with the documentation corresponding to this therapy visit. SIGNATURE: Mickie Rutledge PT, DPT DATE: February 16, 2024 TIME: 12:24 PM Physical Therapy Detention Facility Treatment Summary SERVICE DATE: 02/16/2024 SERVICE TIME: 1010 to 1030 ROOM: [place] [address] PT 6 Clicks Score: 19 DISCHARGE RECOMMENDATIONS [...] decreased Stairs CURRENT HOSPITAL COURSE Admt to [facility] on 01/11 due to mechanical fall [...] Muscle Weakness (generalized) TREATMENT INTERVENTIONS Gait Training (43071) Timed Code Treatment (minutes): 20 Skilled Treatment [...] February 16, 2024 TIME: 10:38 AM [facility] THERAPY NT HNO ID: [id number] Author: ISABELLA SANCHEZ OTR/L Service: Occupational Therapy Author Type: Occupational Therapist Type: Therapy (PT/OT/Speech/Resp) Filed: 02/16/2024 09:56 Note Text: Occupational Therapy Detention Facility Treatment Summary SERVICE DATE: 02/16/2024 SERVICE TIME: 849 to 932 ROOM: [place] [address] OT 6 Clicks Score: 21 DISCHARGE RECOMMENDATIONS [...] transfers, lower body dressing with use of mortgage consultant. Reviewed all equipment needs for pt upon [...] SBA to francisco shorts with use of mortgage consultant; minimal assist to pull up over hips [...] Rolling: Minimal (more content not included)... [facility] THERAPY NTon 02-15-2024 THERAPY NT HNO ID: [id number] Author: LETICIA WALTERS PT Service: Physical Therapy Author Type: Physical Therapist Type: Therapy (PT/OT/Speech/Resp) Filed: 02/15/2024 16:03 Note Text: Summary: Insurance Update Physical Therapy Detention Facility Treatment Summary SERVICE DATE: 02/15/2024 SERVICE TIME: 1515 to 1538 ROOM: [place] [address] PT 6 Clicks Score: 19 DISCHARGE RECOMMENDATIONS [...] 2 Stairs CURRENT HOSPITAL COURSE Admt to [facility] on 01/11 due to mechanical fall [...] Muscle Weakness (generalized) TREATMENT INTERVENTIONS Therapeutic Activity (52071), Gait Training (73524) Timed Code Treatment (minutes): 23 Skilled Treatment [...] DATE: February (more content not included)... [facility] THERAPY NT HNO ID: [id number] Author: ISABELLA SANCHEZ, OTR/L Service: Occupational Therapy Author Type: Occupational Therapist Type: Therapy (PT/OT/Speech/Resp) Filed: 02/15/2024 15:33 Note Text: Summary: OT Insurance Update Occupational Therapy Detention Facility Treatment SERVICE DATE: 02/15/2024 SERVICE TIME: 1400 to 1440 ROOM: [place] [address] Recommended Discharge Disposition: Home OT (vs discharge to [facility]) Recommended Discharge Disposition Comments: Pt's discharge disposition [...] Status: WBAT Current Hospital Course: Admt to [facility] on 01/11 due to mechanical fall [...] prior to discharge; requested that social media community manager contact primary caregiver/family to arrange for scheduled [...] 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 [facility] THERAPY NT HNO ID: [id number] Author: LETICIA WALTERS PT Service: Physical Therapy Author Type: Certified Fire Investigator Type: Therapy (PT/OT/Speech/Resp) Filed: 02/15/2024 11:40 Note Text: Attestation signed by Leticia Walters, PT at 02/15/2024 11:40 AM I reviewed and agree with the documentation corresponding to this therapy visit. SIGNATURE: Leticia Walters PT DATE: February 15, 2024 TIME: 11:40 AM Physical Therapy Detention Facility Treatment Summary SERVICE DATE: 02/15/2024 SERVICE TIME: 844 ROOM: [place] [address] PT 6 Clicks Score: 19 DISCHARGE RECOMMENDATIONS [...] decreased Stairs CURRENT HOSPITAL COURSE Admt to [facility] on 01/11 due to mechanical fall [...] Muscle Weakness (generalized) TREATMENT INTERVENTIONS Therapeutic Exercise (73305), Therapeutic Activity (81441), Gait Training (02180) Timed Code Treatment (minutes): 43 Skilled Treatment [...] PATIENT NAM (more content not included)... [facility] NURSING PROGon 02-13-2024 NURSING PROG HNO ID: [id number] Author: FRANCA HARRISON, RN Service: Nursing Author [...] concerns were voiced at this time. [facility] THERAPY NTon 02-13-2024 THERAPY NT HNO ID: [id number] Author: ELLE HOOVER, PT Service: Physical Therapy Author Type: Physical Therapist Type: Therapy (PT/OT/Speech/Resp) Filed: 02/13/2024 11:15 Note Text: Physical Therapy Detention Facility Treatment Summary SERVICE DATE: 02/13/2024 SERVICE TIME: 1028 to 1058 ROOM: [place] [address] PT 6 Clicks Score: 18 DISCHARGE RECOMMENDATIONS [...] 2 Stairs CURRENT HOSPITAL COURSE Admt to [facility] on 01/11 due to mechanical fall [...] Muscle Weakness (generalized) TREATMENT INTERVENTIONS Therapeutic Exercise (33567), Gait Training (74850) Timed Code Treatment (minutes): 30 Skilled Treatment [...] Mobility Training (more content not included)... [facility] SOCIAL WORKon 02-12-2024 SOCIAL WORK HNO ID: [id number] Author: KRYSTYNA FOX LSW Service: Social Work Author Type: Jewel Grinder Type: Social Work Filed: 02/12/2024 16:42 Note [...] February 12, 2024 Time: 4:39 PM [facility] THERAPY NTon 02-12-2024 THERAPY NT HNO ID: [id number] Author: LETICIA WALTERS, PT Service: Physical Therapy Author Type: Physical Therapist Type: Therapy (PT/OT/Speech/Resp) Filed: 02/12/2024 12:32 Note Text: Physical Therapy Detention Facility Treatment Summary SERVICE DATE: 02/12/2024 SERVICE TIME: 954 to 1024 ROOM: [place] [address] PT 6 Clicks Score: 18 DISCHARGE RECOMMENDATIONS [...] decreased Stairs CURRENT HOSPITAL COURSE Admt to [facility] on 01/11 due to mechanical fall [...] Muscle Weakness (generalized) TREATMENT INTERVENTIONS Therapeutic Exercise (30210), Therapeutic Activity (26977), Gait Training (42196) Timed Code Treatment (minutes): 30 Skilled Treatment [...] February 12, 2024 TIME: 12:32 PM [facility] THERAPY NT HNO ID: [id number] Author: JAYE MARK OTR/Lashae Service: Occupational Therapy Author Type: Occupational Therapist Type: Therapy (PT/OT/Speech/Resp) Filed: 02/12/2024 09:30 Note Text: Occupational Therapy Detention Facility Treatment Summary SERVICE DATE: 02/12/2024 SERVICE TIME: 841 to 926 ROOM: [place] [address] OT 6 Clicks Score: 21 DISCHARGE RECOMMENDATIONS [...] to/from bathroom CURRENT HOSPITAL COURSE Admt to [facility] on 01/11 due to mechanical fall [...] Finances Pt (more content not included)... [facility] THERAPY NT HNO ID: [id number] Author: JAYE MARK OTR/L Service: Occupational Therapy Author Type: Occupational Therapist Type: Therapy (PT/OT/Speech/Resp) Filed: 02/12/2024 08:26 Note Text: Summary: OT discharge instruction OT Discharge Instructions The OT team at [facility] has this list of discharge instructions specific [...] OT please contact the OT team at [phone]. Isabella Sanchez OT Jaye Mark OT Bi Garcia OT Monica Johnson OT Rosie Nance PURI [facility] Basic metabolic 2000 panelon 02-11-2024 Anion gap [Moles/Vol] 10 mmol/L Normal 9-18 [facility] Comment on above: Order Comment: Speci men Type: BLOOD SPECIMEN Ordering Facility: [facility] Address: [address] [place] [address] Performed By: #### 1 9123-9, 97371-2 #### [facility] CLIA [id number] [address] [place] [address] [place] Calcium [Mass/Vol] 8.7 mg/dL Normal 8.5-10.2 [facility] Comment on above: Order Comment: Speci men Type: BLOOD SPECIMEN Ordering Facility: [facility] Address: [address] [place] [address] Performed By: #### 1 9123-9, 80588-2 #### [facility] CLIA [id number] [address] [place] [address] [place] Chloride [Moles/Vol] 106 mmol/L High 97-105 [facility] Comment on above: Order Comment: Speci men Type: BLOOD SPECIMEN Ordering Facility: [facility] Address: [address] [place] [address] Performed By: #### 1 9123-9, 85827-5 #### [facility] CLIA [id number] [address] [place] [address] [place] CO2 [Moles/Vol] 25 mmol/L Normal 22-30 [facility] Comment on above: Order Comment: Hilary ocampo Type: BLOOD SPECIMEN Ordering Facility: [facility] Address: [address] [place] [address] Performed By: #### 1 9123-9, 75738-2 #### [facility] CLIA [id number] [address] [place] [address] [place] Creatinine [Mass/Vol] 1.31 mg/dL High 0.58-0.96 [facility] Comment on above: Order Comment: Hilary men Type: BLOOD SPECIMEN Ordering Facility: [facility] Address: [address] [place] [address] Performed By: #### 1 9123-9, 22774-4 #### [facility] CLIA [id number] [address] [place] [address] [place] Creatinine and Glomerular filtration rate.predicted panel (S/P/Bld) 41 mL/min/1.73m??? Low >=60 [facility] Comment on above: Order Comment: Hilary ocampo Type: BLOOD SPECIMEN Ordering Facility: [facility] Address: [address] [place] [address] Result Comment: Patience mated Glomerular Filtration Rate [...] actual GFR. Performed By: #### 1 9123-9, 98532-4 #### [facility] CLIA [id number] [address] [place] [address] [place] Glucose [Mass/Vol] 98 mg/dL Normal 74-99 [facility] Comment on above: Order Comment: Hilary terrence Type: BLOOD SPECIMEN Ordering Facility: [facility] Address: [address] [place] [address] Result Comment: The [place] Diabetes Association (ADA) provides guidance for cutoff [...] Standards of Medical Care in Diabetes 2016, [place] Diabetes Association. Diabetes Care. 2016.39(Suppl 1). Performed By: #### 1 9123-9, 57570-3 #### [facility] CLIA [id number] [address] [place] [address] [place] Potassium [Moles/Vol] 4.6 mmol/L Normal 3.7-5.1 [facility] Comment on above: Order Comment: Hilary ocampo Type: BLOOD SPECIMEN Ordering Facility: [facility] Address: [address] [place] [address] Performed By: #### 1 91239, 08625-3 #### [employer] [facility] CLIA [id number] [address] [place] [address] [place] Sodium [Moles/Vol] 141 mmol/L Normal 136-144 [facility] Comment on above: Order Comment: Hilary ocampo Type: BLOOD SPECIMEN Ordering Facility: [facility] Address: [address] [place] [address] Performed By: #### 1 91239, 02679-1 #### [employer] [facility] CLIA [id number] [address] [place] [address] [place] Urea nitrogen [Mass/Vol] 39 mg/dL High 7-21 [facility] Comment on above: Order Comment: Hilary ocampo Type: BLOOD SPECIMEN Ordering Facility: [facility] Address: [address] [place] [address] Performed By: #### 1 9123-9, 20604-2 #### [facility] CLIA [id number] [address] [place] [address] [place] SOCIAL WORKon 02-11-2024 SOCIAL WORK HNO ID: [id number] Author: KRYSTYNA FOX LSW Service: Social Work Author Type: Jewel Grinder Type: Social Work Filed: 02/11/2024 16:37 Note [...] Date: February 11, 2024 Time: 4:36 PM [facility] THERAPY NTon 02-11-2024 THERAPY NT HNO ID: [id number] Author: JAYE MARK OTR/L Service: Occupational Therapy Author Type: Brick Layer Type: Therapy (PT/OT/Speech/Resp) Filed: 02/12/2024 07:40 Note Text: Attestation signed by Jaye Mark OTR/L at 02/12/2024 7:40 AM I reviewed and agree with the documentation corresponding to this therapy visit. SIGNATURE: Jaye Mark, OTR/L DATE: February 12, 2024 TIME: 7:40 AM Occupational Therapy Detention Facility Treatment Summary SERVICE DATE: 02/11/2024 SERVICE TIME: 1515 to 1601 ROOM: [place] [address] OT 6 Clicks Score: 21 DISCHARGE RECOMMENDATIONS Home OT (vs discharge to [facility]) Recommended Discharge Disposition Comments: Pt's discharge disposition [...] Saroj Dyson (more content not included)... [facility] THERAPY NT HNO ID: [id number] Author: ELLE HOOVER, PT Service: Physical Therapy Author Type: Certified Fire Investigator Type: Therapy (PT/OT/Speech/Resp) Filed: 02/11/2024 12:02 Note Text: Attestation signed by Elle Hoover, PT at 02/11/2024 12:02 PM I reviewed and agree with the documentation corresponding to this therapy visit. SIGNATURE: Elle Hoover, PT DATE: February 11, 2024 TIME: 12:02 PM Physical Therapy Detention Facility Treatment Summary SERVICE DATE: 02/11/2024 SERVICE TIME: 927 to 1014 ROOM: [place] [address] PT 6 Clicks Score: 18 DISCHARGE RECOMMENDATIONS [...] decreased Stairs CURRENT HOSPITAL COURSE Admt to [facility] on 01/11 due to mechanical fall [...] Muscle Weakness (generalized) TREATMENT INTERVENTIONS Therapeutic Exercise (85920), Gait Training (20171), Therapeutic Activity (10334) Timed Code Treatment (minutes): 47 Skilled Treatment [...] Per Week (more content not included)... [facility] NURSING PROGon 02-10-2024 NURSING PROG HNO ID: [id number] Author: FRANCA HARRISON RN Service: Nursing Author Type: Registered Nurse Type: Nursing Progress Note Filed: 02/10/2024 12:36 Note Text: Patient sitting up in recliner chair at bedside. All treatments and procedures were explained. Pt verbalized understanding. No questions or concerns were voiced at this time. [facility] NUTRITIONon 02-10-2024 NUTRITION HNO ID: [id number] Author: MENDOZA COREAS RD Service: Nutrition Therapy Author Type: Registered Dietitian Type: Nutrition Filed: 02/10/2024 15:05 Note Text: NUTRITION THERAPY PROGRESS NOTE SERVICE DATE: 02/10/2024 SERVICE TIME: 15:00 PM Nutrition Assessment: Recommended Malnutrition Diagnosis: No Malnutrition Identified (02/03/24 1118 : Mendoza Coreas RD) Estimated kilocalorie needs: 5838-3111 Calorie Calculation Method: [place]-St. Jeor (with activity factor) (adjusted body wt [...] February 10, 2024 TIME: 3:01 PM [facility] SOCIAL WORKon 02-10-2024 SOCIAL WORK HNO ID: [id number] Author: KRYSTYNA FOX LSW Service: Social Work Author Type: Jewel Grinder Type: Social Work Filed: 02/11/2024 09:30 Note [...] Tissue Injury Attendees Present at Rounds: CM, ROBOTICS MECHANIC, NM, OT, PT, SW Needs Discussed on [...] help at home. To get ramp from [employer] with campos money. Able to borrow portable in meantime. PT: Ramp has been acquired. Patient also has a wheelchair. OT: Improved with self care tasks. Nursing: DOCUMENTED BY: MICHELA Chanel PATIENT NAME: Jackelyn Bradshaw DATE: February 10, 2024 TIME: 4:52 PM CSN: [id number] [facility] SOCIAL WORK HNO ID: [id number] Author: KRYSTYNA FOX LSW Service: Social Work Author Type: Jewel Grinder Type: Social Work Filed: 02/10/2024 14:11 Note [...] Date: February 10, 2024 Time: 2:09 PM [facility] THERAPY NTon 02-10-2024 THERAPY NT HNO ID: [id number] Author: ISABELLA SANCHEZ, OTR/L Service: Occupational Therapy Author Type: Occupational Therapist Type: Therapy (PT/OT/Speech/Resp) Filed: 02/10/2024 14:37 Note Text: Occupational Therapy Detention Facility Treatment Summary SERVICE DATE: 02/10/2024 SERVICE TIME: 1345 to 1420 ROOM: [place] [address] OT 6 Clicks Score: 21 DISCHARGE RECOMMENDATIONS Home OT (vs discharge to [facility]) Recommended Discharge Disposition Comments: Pt's discharge disposition [...] pt's status; will discuss with social media community manager to contact family. Tub transfer training may [...] to bed CURRENT HOSPITAL COURSE Admt to [facility] on 01/11 due to mechanical fall at home resulting in L intertrochanteric hip fracture. s/p ORIF L hip. Relevant (more content not included)... Normal [facility] THERAPY NT HNO ID: [id number] Author: ELLE HOOVER PT Service: Physical Therapy Author Type: Certified Fire Investigator Type: Therapy (PT/OT/Speech/Resp) Filed: 02/10/2024 12:15 Note Text: Attestation signed by Elle Hoover PT at 02/10/2024 12:15 PM I reviewed and agree with the documentation corresponding to this therapy visit. SIGNATURE: Elle Hoover, PT DATE: February 10, 2024 TIME: 12:15 PM Physical Therapy Detention Facility Treatment Summary SERVICE DATE: 02/10/2024 SERVICE TIME: 844 to 921 ROOM: [place] [address] PT 6 Clicks Score: 18 DISCHARGE RECOMMENDATIONS [...] decreased Stairs CURRENT HOSPITAL COURSE Admt to [facility] on 01/11 due to mechanical fall [...] Muscle Weakness (generalized) TREATMENT INTERVENTIONS Therapeutic Exercise (11425), Gait Training (72479), Therapeutic Activity (29935) Timed Code Treatment (minutes): 37 Skilled Treatment [...] Week (3-4 (more content not included)... Normal [facility] THERAPY NTon 02-09-2024 THERAPY NT HNO ID: [id number] Author: LETICIA WALTERS PT Service: Physical Therapy Author Type: Certified Fire Investigator Type: Therapy (PT/OT/Speech/Resp) Filed: 02/09/2024 14:59 Note Text: Attestation signed by Leticia Walters PT at 02/09/2024 2:59 PM I reviewed and agree with the documentation corresponding to this therapy visit. SIGNATURE: Leticia Walters PT DATE: February 09, 2024 TIME: 2:59 PM Physical Therapy Detention Facility Treatment Summary SERVICE DATE: 02/09/2024 SERVICE TIME: 1406 to 1440 ROOM: [place] [address] PT 6 Clicks Score: 18 DISCHARGE RECOMMENDATIONS [...] decreased Stairs CURRENT HOSPITAL COURSE Admt to [facility] on 01/11 due to mechanical fall [...] Muscle Weakness (generalized) TREATMENT INTERVENTIONS Therapeutic Exercise (39403), Gait Training (21084) Timed Code Treatment (minutes): 34 Skilled Treatment [...] Interventions: Strengthening, (more content not included)... Normal [facility] THERAPY NT HNO ID: [id number] Author: JAYE MARK OTR/L Service: Occupational Therapy Author Type: Brick Layer Type: Therapy (PT/OT/Speech/Resp) Filed: 02/09/2024 14:06 Note Text: Attestation signed by Jaye Mark OTR/L at 02/09/2024 2:06 PM I reviewed and agree with the documentation corresponding to this therapy visit. SIGNATURE: KATARZYNA Vilchis DATE: February 09, 2024 TIME: 2:06 PM Occupational Therapy Detention Facility Treatment Summary SERVICE DATE: 02/09/2024 SERVICE TIME: 1125 to 1155 ROOM: [place] [address] OT 6 Clicks Score: 21 DISCHARGE RECOMMENDATIONS [...] from chair CURRENT HOSPITAL COURSE Admt to [facility] on 01/11 due to mechanical fall [...] day. States (more content not included)... Normal [facility] THERAPY NT HNO ID: [id number] Author: MICKIE RUTLEDGE, PT, DPT Service: Physical Therapy Author Type: Physical Therapist Type: Therapy (PT/OT/Speech/Resp) Filed: 02/09/2024 09:34 Note Text: Physical Therapy Detention Facility Treatment Summary SERVICE DATE: 02/09/2024 SERVICE TIME: 844 to 924 ROOM: [place] [address] PT 6 Clicks Score: 18 DISCHARGE RECOMMENDATIONS [...] decreased Stairs CURRENT HOSPITAL COURSE Admt to [facility] on 01/11 due to mechanical fall [...] Muscle Weakness (generalized) TREATMENT INTERVENTIONS Gait Training (14833), Therapeutic Exercise (11099) Timed Code Treatment (minutes): 40 Skilled Treatment [...] Mickie Jewell (more content not included)... Normal [facility] Basic metabolic 2000 panelon 02-08-2024 Anion gap [Moles/Vol] 9 mmol/L Normal 9-18 [facility] Comment on above: Order Comment: Speci men Type: BLOOD SPECIMEN Ordering Facility: [facility] Address: [address] [place] [address] Performed By: #### 1 9123-9, 30900-2 #### [facility] CLIA [id number] [address] [place], [place] [id number] [place] Calcium [Mass/Vol] 8.9 mg/dL Normal 8.5-10.2 [facility] Comment on above: Order Comment: Speci men Type: BLOOD SPECIMEN Ordering Facility: [facility] Address: [address] [place] [address] Performed By: #### 1 9123-9, 62731-1 #### [facility] CLIA [id number] [address] [place] [address] [place] Chloride [Moles/Vol] 106 mmol/L High 97-105 [facility] Comment on above: Order Comment: Speci men Type: BLOOD SPECIMEN Ordering Facility: [facility] Address: [address] [place] [address] Performed By: #### 1 9123-9, 71656-3 #### [facility] CLIA [id number] [address] [place] [address] [place] CO2 [Moles/Vol] 27 mmol/L Normal 22-30 [facility] Comment on above: Order Comment: Speci men Type: BLOOD SPECIMEN Ordering Facility: [facility] Address: [address] [place] [address] Performed By: #### 1 9123-9, 55203-8 #### [facility] CLIA [id number] [address] [place] [address] [place] Creatinine [Mass/Vol] 1.35 mg/dL High 0.58-0.96 [facility] Comment on above: Order Comment: Speci men Type: BLOOD SPECIMEN Ordering Facility: [facility] Address: [address] [place] [address] Performed By: #### 1 9123-9, 53891-7 #### [facility] CLIA [id number] [address] [place] [address] [facility] Creatinine and Glomerular filtration rate.predicted panel (S/P/Bld) 39 mL/min/1.73m??? Low >=60 [facility] Comment on above: Order Comment: Speci men Type: BLOOD SPECIMEN Ordering Facility: [facility] Address: [address] [place] [address] Result Comment: Patience mated Glomerular Filtration Rate [...] actual GFR. Performed By: #### 1 9123-9, 29682-4 #### [facility] CLIA [id number] [address] [place] [address] [place] Glucose [Mass/Vol] 89 mg/dL Normal 74-99 [facility] Comment on above: Order Comment: Hilary ocampo Type: BLOOD SPECIMEN Ordering Facility: [facility] Address: [address] [place] [address] Result Comment: The [place] Diabetes Association (ADA) provides guidance for cutoff [...] Standards of Medical Care in Diabetes 2016, [place] [employer]. Diabetes Care. 2016.39(Suppl 1). Performed By: #### 1 9123-9, 93404-6 #### [facility] CLIA [id number] [address] [place] [address] [place] Potassium [Moles/Vol] 4.7 mmol/L Normal 3.7-5.1 [facility] Comment on above: Order Comment: Hilary ocampo Type: BLOOD SPECIMEN Ordering Facility: [facility] Address: [address] [place] [address] Performed By: #### 1 9123-9, 25789-6 #### [facility] CLIA [id number] [address] [place] [address] [place] Sodium [Moles/Vol] 142 mmol/L Normal 136-144 [facility] Comment on above: Order Comment: Hilary ocampo Type: BLOOD SPECIMEN Ordering Facility: [facility] Address: [address] [place] [address] Performed By: #### 1 9123-9, 47049-1 #### [facility] CLIA [id number] [address] [place] [address] [place] [facility] Urea nitrogen [Mass/Vol] 40 mg/dL High 7-21 [facility] Comment on above: Order Comment: Speci men Type: BLOOD SPECIMEN Ordering Facility: [facility] Address: [address] [place] [address] Performed By: #### 1 9123-9, 43948-7 #### [facility] CLIA [id number] [address] [place] [address] [facility] [place] CBC panel Auto (Bld)on 02-07 Erythrocyte distribution width (RBC) [Ratio] 14.1 % Normal 11.5-15.0 [facility] Comment on above: Order Comment: Speci men Type: BLOOD SPECIMEN Ordering Facility: [facility] Address: [address] [place] [address] Performed By: #### 1 9123-9, 63991-4 #### [facility] CLIA [id number] [address] [place] [address] [place] Hematocrit (Bld) [Volume fraction] 31.2 % Low 36.0-46.0 [facility] Comment on above: Order Comment: Speci men Type: BLOOD SPECIMEN Ordering Facility: [facility] Address: [address] [place] [address] Performed By: #### 1 9123-9, 81110-1 #### [facility] CLIA [id number] [address] [place] [address] [place] Hemoglobin (Bld) [Mass/Vol] 9.6 g/dL Low 11.5-15.5 [facility] Comment on above: Order Comment: Speci men Type: BLOOD SPECIMEN Ordering Facility: [facility] Address: [address] [place] [address] Performed By: #### 1 91239, 36950-7 #### [facility] CLIA [id number] [address] [place] [address] [place] MCH (RBC) [Entitic mass] 32.1 pg Normal 26.0-34.0 [facility] Comment on above: Order Comment: Speci men Type: BLOOD SPECIMEN Ordering Facility: [facility] Address: [address] [place] [address] Performed By: #### 1 9123-9, 64568-9 #### [facility] CLIA [id number] [address] [place] [address] [place] [facility] MCHC (RBC) [Mass/Vol] 30.8 g/dL Normal 30.5-36.0 [facility] Comment on above: Order Comment: Speci men Type: BLOOD SPECIMEN Ordering Facility: [facility] Address: [address] [place] [address] Performed By: #### 1 9123-9, 38267-9 #### [facility] CLIA [id number] [address] [place] [address] [facility] [place] MCV (RBC) [Entitic vol] 104.3 fL High 80.0-100.0 [facility] Comment on above: Order Comment: Speci men Type: BLOOD SPECIMEN Ordering Facility: [facility] Address: [address] [place] [address] Performed By: #### 1 9123-9, 92898-1 #### [facility] CLIA [id number] [address] [place] [address] [facility] [place] Platelet mean volume (Bld) [Entitic vol] 10.1 fL Normal 9.0-12.7 [facility] Comment on above: Order Comment: Speci men Type: BLOOD SPECIMEN Ordering Facility: [facility] Address: [address] [place] [address] Performed By: #### 1 9123-9, 03643-6 #### [facility] CLIA [id number] [address] [place] [address] [facility] [place] Platelets (Bld) [#/Vol] 246 10*3/uL Normal 150-400 [facility] Comment on above: Order Comment: Hilary ocampo Type: BLOOD SPECIMEN Ordering Facility: [facility] Address: [address] [place] [address] Performed By: #### 1 9123-9, 28461-5 #### [facility] CLIA [id number] [address] [place] [address] [facility] RBC (Bld) [#/Vol] 2.99 10*6/uL Low 3.90-5.20 [facility] Comment on above: Order Comment: Hilary men Type: BLOOD SPECIMEN Ordering Facility: [facility] Address: [address] [place] [address] Performed By: #### 1 9123-9, 45420-5 #### [facility] CLIA [id number] [address] [place] [address] [facility] WBC (Bld) [#/Vol] 6.52 10*3/uL Normal 3.70-11.00 [facility] Comment on above: Order Comment: Hilary ocampo Type: BLOOD SPECIMEN Ordering Facility: [facility] Address: [address] [place] [address] Performed By: #### 1 9123-9, 26457-1 #### [facility] CLIA [id number] [address] [place] [address] [facility] SOCIAL WORKon 02-08-2024 SOCIAL WORK HNO ID: [id number] Author: KRYSTYNA FOX LSW Service: Social Work Author Type: Jewel Grinder Type: Social Work Filed: 02/08/2024 13:53 Note [...] Date: February 08, 2024 Time: 1:51 PM [facility] THERAPY NTon 02-08-2024 THERAPY NT HNO ID: [id number] Author: LETICIA WALTERS PT Service: Physical Therapy Author Type: Certified Fire Investigator Type: Therapy (PT/OT/Speech/Resp) Filed: 02/08/2024 17:54 Note Text: Attestation signed by Leticia Walters PT at 02/08/2024 5:54 PM I reviewed and agree with the documentation corresponding to this therapy visit. SIGNATURE: Leticia Walters PT DATE: February 08, 2024 TIME: 5:54 PM Physical Therapy Detention Facility Treatment Summary SERVICE DATE: 02/08/2024 SERVICE TIME: 1258 to 1343 ROOM: [place] [address] PT 6 Clicks Score: 17 DISCHARGE RECOMMENDATIONS [...] decreased Stairs CURRENT HOSPITAL COURSE Admt to [facility] on 01/11 due to mechanical fall [...] Muscle Weakness (generalized) TREATMENT INTERVENTIONS Gait Training (15300), Therapeutic Activity (33018) Timed Code Treatment (minutes): 45 Skilled Treatment [...] February 08, 2024 TIME: 1:49 PM [facility] THERAPY NT HNO ID: [id number] Author: ISABELLA SANCHEZ OTR/Lashae Service: Occupational Therapy Author Type: Brick Layer Type: Therapy (PT/OT/Speech/Resp) Filed: 02/08/2024 15:59 Note Text: Attestation signed by Isabella Sanchez OTR/L at 02/08/2024 3:59 PM I reviewed and agree with the documentation corresponding to this therapy visit. SIGNATURE: KATARZYNA Garcia DATE: February 08, 2024 TIME: 3:59 PM Occupational Therapy Detention Facility Treatment Summary SERVICE DATE: 02/08/2024 SERVICE TIME: 1010 to 1100 ROOM: [place] [address] OT 6 Clicks Score: 21 DISCHARGE RECOMMENDATIONS Home OT (vs discharge to [facility]) Recommended Discharge Disposition Comments: Pt's discharge disposition [...] feet x2 CURRENT HOSPITAL COURSE Admt to [facility] on 01/11 due to mechanical fall [...] FUNCTIONAL LEVEL (more content not included)... Normal [facility] THERAPY NT HNO ID: [id number] Author: LETICIA WALTERS, PT Service: Physical Therapy Author Type: Certified Fire Investigator Type: Therapy (PT/OT/Speech/Resp) Filed: 02/08/2024 17:53 Note Text: Attestation signed by Leticia Walters, PT at 02/08/2024 5:53 PM I reviewed and agree with the documentation corresponding to this therapy visit. SIGNATURE: Leticia Walters PT DATE: February 08, 2024 TIME: 5:53 PM Physical Therapy Detention Facility Treatment Summary SERVICE DATE: 02/08/2024 SERVICE TIME: 0935 to 1006 ROOM: [place] [address] PT 6 Clicks Score: 17 DISCHARGE RECOMMENDATIONS [...] decreased Stairs CURRENT HOSPITAL COURSE Admt to [facility] on 01/11 due to mechanical fall [...] Muscle Weakness (generalized) TREATMENT INTERVENTIONS Gait Training (34240), Therapeutic Exercise (64326) Timed Code Treatment (minutes): 31 Skilled Treatment [...] Visual, Cuin (more content not included)... Normal [facility] THERAPY NTon 02-06-2024 THERAPY NT HNO ID: [id number] Author: JAYE MARK OTR/L Service: Occupational Therapy Author Type: Occupational Therapist Type: Therapy (PT/OT/Speech/Resp) Filed: 02/06/2024 14:03 Note Text: Occupational Therapy Detention Facility Treatment Summary SERVICE DATE: 02/06/2024 SERVICE TIME: 1335 to 1358 ROOM: [place] [address] OT 6 Clicks Score: 20 DISCHARGE RECOMMENDATIONS Home OT (vs discharge to [facility]) Recommended Discharge Disposition Comments: Pt's discharge disposition [...] Wheeled Walker CURRENT HOSPITAL COURSE Admt to [facility] on 01/11 due to mechanical fall [...] 1-step Commands, (more content not included)... Normal [facility] THERAPY NT HNO ID: [id number] Author: LETICIA WALTERS, PT Service: Physical Therapy Author Type: Certified Fire Investigator Type: Therapy (PT/OT/Speech/Resp) Filed: 02/08/2024 17:53 Note Text: Attestation signed by Leticia Walters, PT at 02/08/2024 5:53 PM I reviewed and agree with the documentation corresponding to this therapy visit. SIGNATURE: Leticia Walters, PT DATE: February 08, 2024 TIME: 5:53 PM Physical Therapy Detention Facility Treatment Summary SERVICE DATE: 02/06/2024 SERVICE TIME: 1032 to 1106 ROOM: [place] [address] PT 6 Clicks Score: 17 DISCHARGE RECOMMENDATIONS [...] decreased Stairs CURRENT HOSPITAL COURSE Admt to [facility] on 01/11 due to mechanical fall [...] Muscle Weakness (generalized) TREATMENT INTERVENTIONS Gait Training (33609), Therapeutic Activity (50811) Timed Code Treatment (minutes): 34 Skilled Treatment [...] February 06, 2024 TIME: 11:23 AM [facility] NURSING PROGon 02-05-2024 NURSING PROG HNO ID: [id number] Author: FRANCA HARRISON RN Service: Nursing Author Type: Registered Nurse Type: Nursing Progress Note Filed: 02/05/2024 09:00 Note Text: Assisted patient up in bed for breakfast. All treatments and procedures were explained. Informed patient that she is an early up for OT this morning around 8:45. Patient verbalized understanding. Heels elevated on pillow. No questions or concerns were voiced at this time. Normal [facility] SOCIAL WORKon 02-05-2024 SOCIAL WORK HNO ID: [id number] Author: KRYSTYNA FOX LSW Service: Social Work Author Type: Jewel Grinder Type: Social Work Filed: 02/05/2024 15:33 Note Text: Summary: [facility]igley SOCIAL WORK PROGRESS NOTE Name: Jackelyn Bradshaw Patient has another insurance update on 02/09. She said her daughter was pleased that she is able to stay longer. Patient says things are going okay. She has no concerns at this time. Signature: MICHELA Chanel Date: February 05, 2024 Time: 3:32 PM [facility] THERAPY NTon 02-05-2024 THERAPY NT HNO ID: [id number] Author: ELLE HOOVER PT Service: Physical Therapy Author Type: Certified Fire Investigator Type: Therapy (PT/OT/Speech/Resp) Filed: 02/05/2024 12:54 Note Text: Attestation signed by Elle Hoover PT at 02/05/2024 12:54 PM I reviewed and agree with the documentation corresponding to this therapy visit. 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 Plan for Next Visit: Gait [...] decreased Stairs CURRENT HOSPITAL COURSE Admt to [facility] on 01/11 due to mechanical fall [...] Muscle Weakness (generalized) TREATMENT INTERVENTIONS Gait Training (49795), Therapeutic Exercise (91684) Timed Code Treatment (minutes): 30 Skilled Treatment [...] Cuing Verb (more content not included)... Normal [facility] THERAPY NT HNO ID: [id number] Author: BI GARCIA OTR/Lashae Service: ? Author Type: Occupational Therapist Type: Therapy (PT/OT/Speech/Resp) Filed: 02/05/2024 09:45 Note Text: Occupational Therapy Detention Facility Treatment Summary SERVICE DATE: 02/05/2024 SERVICE TIME: 08 to 931 ROOM: [place] [address] OT 6 Clicks Score: 20 DISCHARGE RECOMMENDATIONS Home OT (vs discharge to [facility]) Recommended Discharge Disposition Comments: Pt's discharge disposition [...] socks with sock-aid ; donned pants with mortgage consultant. Toileting Minimal Assistance, Additional Information Instrumental Activities [...] Wheeled Walker CURRENT HOSPITAL COURSE Admt to [facility] on 01/11 due to mechanical fall [...] Cleaning, Laundry, (more content not included)... Normal [facility] SOCIAL WORKon 02-04-2024 SOCIAL WORK HNO ID: [id number] Author: KRYSTYNA FOX LSW Service: Social Work Author Type: Jewel Grinder Type: Social Work Filed: 02/05/2024 11:25 Note Text: Summary: Appeal/Family Call SOCIAL WORK PROGRESS NOTE Name: Jackelyn Bradshaw Received notice from [employer] that they disagree with the termination of services at this time. Determination letter to follow. Called dtr Tez. She had received notice also. Asking how long patient will be able to stay. Told her insurance will issue another request for update and go from there. Tez said patient was accepted for ramp campos that Radha received through the [facility] and a $4600 ramp will be covered at 100%. [employer] is loaning a bi-fold ramp until the permanent ramp is built. Signature: MICHELA Chanel Date: February 04, 2024 Time: 2:42 PM [facility] THERAPY NTon 02-04-2024 THERAPY NT HNO ID: [id number] Author: ELLE HOOVER PT Service: Physical Therapy Author Type: Certified Fire Investigator Type: Therapy (PT/OT/Speech/Resp) Filed: 02/05/2024 12:54 Note Text: Attestation signed by Elle Hoover, PT at 02/05/2024 12:54 PM I reviewed and agree with the documentation corresponding to this therapy visit. SIGNATURE: Elle Hoover PT DATE: February 05, 2024 TIME: 12:53 PM Physical Therapy Detention Facility Treatment Summary SERVICE DATE: 02/04/2024 SERVICE TIME: 1452 to 1540 ROOM: [place] [address] PT 6 Clicks Score: 17 DISCHARGE RECOMMENDATIONS [...] decreased Stairs CURRENT HOSPITAL COURSE Admt to [facility] on 01/11 due to mechanical fall [...] Muscle Weakness (generalized) TREATMENT INTERVENTIONS Therapeutic Exercise (90776), Gait Training (45711) Timed Code Treatment (minutes): 48 Skilled Treatment [...] Planning, Will (more content not included)... Normal [facility] THERAPY NT HNO ID: [id number] Author: JAMES NANCE OTA/L Service: Occupational Therapy Author Type: Brick Layer Type: Therapy (PT/OT/Speech/Resp) Filed: 02/04/2024 14:21 Note Text: Attestation signed by Bi Garcia OTR/L at 02/04/2024 3:20 PM I reviewed and agree with the documentation corresponding to this therapy visit. SIGNATURE: KATARZYNA Newman DATE: February 04, 2024 TIME: 3:20 PM Occupational Therapy Detention Facility Treatment Summary SERVICE DATE: 02/04/2024 SERVICE TIME: 1326 to 1352 ROOM: [place] [address] OT 6 Clicks Score: 20 DISCHARGE RECOMMENDATIONS [...] transfers/mobility skills CURRENT HOSPITAL COURSE Admt to [facility] on 4/9 due to mechanical fall at home resulting in L intertrochanteric hip fracture. s/p ORIF L hip. Relevant Past Medical History: Arthitis, (more content not included)... Normal [facility] THERAPY NT HNO ID: [id number] Author: ELLE HOOVER PT Service: Physical Therapy Author Type: Certified Fire Investigator Type: Therapy (PT/OT/Speech/Resp) Filed: 02/04/2024 13:33 Note Text: Attestation signed by Elle Hoover PT at 02/04/2024 1:33 PM I reviewed and agree with the documentation corresponding to this therapy visit. SIGNATURE: Elle Hoover PT DATE: February 04, 2024 TIME: 1:33 PM Physical Therapy Detention Facility Treatment Summary SERVICE DATE: 02/04/2024 SERVICE TIME: 845 to 927 ROOM: [place] [address] PT 6 Clicks Score: 17 DISCHARGE RECOMMENDATIONS [...] decreased Stairs CURRENT HOSPITAL COURSE Admt to [facility] on 01/11 due to mechanical fall [...] Muscle Weakness (generalized) TREATMENT INTERVENTIONS Therapeutic Activity (75008), Gait Training (33158), Therapeutic Exercise (28718) Timed Code Treatment (minutes): 40 Skilled Treatment [...] 6 Andrew (more content not included)... Normal [facility] Urinalysis complete panel (U )on 02-04-2024 Bilirubin Ql (U) Negative Normal Negative [facility] Comment on above: Order Comment: Speci men Type: BLOOD SPECIMEN Ordering Facility: [facility] Address: [address] [place] [address] Performed By: #### 1 9123-9, 95439-4 #### [facility] CLIA [id number] [address] [place] [address] [place] Clarity (Unsp spec) Clear Normal Clear [facility] Comment on above: Order Comment: Speci men Type: BLOOD SPECIMEN Ordering Facility: [facility] Address: [address] [place] [address] Performed By: #### 1 9123-9, 19988-1 #### [facility] CLIA [id number] [address] [place] [address] [place] Color (U) Yellow Normal Yellow [facility] Comment on above: Order Comment: Speci men Type: BLOOD SPECIMEN [facility] [facility] Address: [address] [place] [address] Performed By: #### 1 9123-9, 14085-4 #### [facility] CLIA [id number] [address] [place] [address] [facility] Glucose Test strip (U) [Mass/Vol] Negative Normal Negative [facility] Comment on above: Order Comment: Speci men Type: BLOOD SPECIMEN Ordering Facility: [facility] Address: [address] [place] [address] Performed By: #### 1 9123-9, 17438-0 #### [facility] CLIA [id number] [address] [place] [address] [facility] Hemoglobin Ql (U) Trace Abnormal Negative [facility] Comment on above: Order Comment: Speci men Type: BLOOD SPECIMEN Ordering Facility: [facility] Address: [address] [place] [address] Performed By: #### 1 91239, 42707-3 #### [facility] CLIA [id number] [address] [place] [address] [facility] Ketones Ql (U) Negative Normal Negative [facility] Comment on above: Order Comment: Speci men Type: BLOOD SPECIMEN Ordering Facility: [facility] Address: [address] [place] [address] Performed By: #### 1 9123-06, 74036-6 #### [facility] CLIA [id number] [address] [place] [address] [facility] Leukocyte esterase Test strip Ql (U) Negative Normal Negative [facility] Comment on above: Order Comment: Speci men Type: BLOOD SPECIMEN Ordering Facility: [facility] Address: [address] [place] [address] Performed By: #### 1 9123-06, 41565-6 #### [facility] CLIA [id number] [address] [place] [address] [place] Nitrite Ql (U) Negative Normal Negative [facility] Comment on above: Order Comment: Speci men Type: BLOOD SPECIMEN Ordering Facility: [facility] Address: [address] [place] [address] Performed By: #### 1 9123-9, 62754-2 #### [facility] CLIA [id number] [address] [place] [address] [place] pH (U) 6.5 [pH] Normal 5.0-8.0 [facility] Comment on above: Order Comment: Speci men Type: BLOOD SPECIMEN Ordering Facility: [facility] Address: [address] [place] [address] Performed By: #### 1 9123-9, 62067-9 #### [facility] CLIA [id number] [address] [place] [address] [place] Protein (U) [Mass/Vol] Negative Normal Negative [facility] Comment on above: Order Comment: Speci men Type: BLOOD SPECIMEN Ordering Facility: [facility] Address: [address] [place] [address] Performed By: #### 1 91239, 28820-9 #### [facility] CLIA [id number] [address] [place] [address] [place] RBC LM.HPF (Urine sed) [#/Area] 0-3 /HPF Normal 0-3 /HPF [facility] Comment on above: Order Comment: Speci men Type: BLOOD SPECIMEN Ordering Facility: [facility] Address: [address] [place] [address] Performed By: #### 1 91239, 48190-7 #### [facility] CLIA [id number] [address] [place] [address] [place] Specific gravity (U) [Rel density] 1.010 Normal 1.005-1.030 [facility] Comment on above: Order Comment: Speci men Type: BLOOD SPECIMEN Ordering Facility: [facility] Address: [address] [place] [address] Performed By: #### 1 9123-9, 36278-1 #### [facility] CLIA [id number] [address] [place] [address] [place] Urobilinogen Ql (U) 0.2 EU/dL Normal 0.2-1.0 EU/dL [facility] Comment on above: Order Comment: Speci men Type: BLOOD SPECIMEN Ordering Facility: [facility] Address: [address] [place] [address] Performed By: #### 1 9123-9, 36346-7 #### [facility] CLIA [id number] [address] [place] [address] [facility] WBC LM.HPF (Urine sed) [#/Area] 0-5 /HPF Normal 0-5 /HPF [facility] Comment on above: Order Comment: Speci men Type: BLOOD SPECIMEN Ordering Facility: [facility] Address: [address] [place] [address] Performed By: #### 1 9123-9, 59090-0 #### [facility] CLIA [id number] [address] [place] [address] [facility] NURSING PROGon 02-03-2024 NURSING PROG HNO ID: [id number] Author: FRANCA HARRISON RN Service: Nursing Author Type: Registered Nurse Type: Nursing Progress Note Filed: 02/03/2024 16:47 Note Text: Patient resting quietly in bed. All treatments and procedures were explained. Patient verbalized understanding. No questions or concerns were voiced at this time. Normal [facility] NURSING PROG HNO ID: [id number] Author: FRANCA HARRISON RN Service: Nursing Author Type: Registered Nurse Type: Nursing Progress Note Filed: 02/03/2024 12:05 Note Text: Patient resting quietly in bed. All treatments and procedures were explained. Pt verbalized understanding. Pt denies any pain at this time. Pt very pleasant. Talkative. No questions or concerns were voiced at this time. [facility] NUTRITIONon 02-03-2024 NUTRITION HNO ID: [id number] Author: MENDOZA COREAS RD Service: Nutrition Therapy Author Type: Registered Dietitian Type: Nutrition Filed: 02/03/2024 11:29 Note Text: NUTRITION THERAPY REASSESSMENT NOTE SERVICE DATE: 02/03/2024 SERVICE TIME: 10:18 AM Nutrition Assessment: Recommended Malnutrition Diagnosis: No Malnutrition Identified (02/03/24 1118 : Mendoza Coreas RD) Nutrition Diagnosis: Problem: Increased nutrient needs Related to: Wound healing As evidenced by: Procedure/surgery Estimated kilocalorie needs: 4133-2551 Calorie Calculation Method: [place]-St. Jeor (with activity factor) (adjusted body wt [...] February 03, 2024 TIME: 10:19 AM Normal [facility] SOCIAL WORKon 02-03-2024 SOCIAL WORK HNO ID: [id number] Author: KRYSTYNA FOX LSW Service: Social Work Author Type: Jewel Grinder Type: Social Work Filed: 02/04/2024 12:38 Note [...] was able to borrow a ramp from [employer] until they have one built. They had [employer]'s out yesterday and they are working with [facility] to get a campos for the ramp. Family will pick and shovel worker patient upon DC and take her into home with wheelchair. Told Tez that insurance sent a DENC (Detailed Explanation of Non-Coverage) and why they have determined patient no longer needs to be at [facility]. Tez says she will not be in tonight. Will give her DENC when she comes in next. Signature: MICHELA Chanel Date: February 03, 2024 Time: 4:21 PM Normal [facility] SOCIAL WORK HNO ID: [id number] Author: KRYSTYNA FOX LSW Service: Social Work Author Type: Jewel Grinder Type: Social Work Filed: 02/03/2024 09:01 Note Text: Summary: Appeal SOCIAL WORK PROGRESS NOTE Name: Jackelyn Bradshaw Patient's records were faxed to [employer] on 02/01 at 1834. Signature: MICHELA Chanel Date: February 03, 2024 Time: 9:00 AM Normal [facility] THERAPY NTon 02-03-2024 THERAPY NT HNO ID: [id number] Author: ELLE HOOVER PT Service: Physical Therapy Author Type: Certified Fire Investigator Type: Therapy (PT/OT/Speech/Resp) Filed: 02/03/2024 14:37 Note Text: Attestation signed by Elle Hoover, PT at 02/03/2024 2:37 PM I reviewed and agree with the documentation corresponding to this therapy visit. SIGNATURE: Elle Hoover PT DATE: February 03, 2024 TIME: 2:37 PM Physical Therapy Detention Facility Treatment Summary SERVICE DATE: 02/03/2024 SERVICE TIME: 1259 to 1343 ROOM: [place] [address] PT 6 Clicks Score: 17 DISCHARGE RECOMMENDATIONS [...] 4 Stairs CURRENT HOSPITAL COURSE Admt to [facility] on 01/11 due to mechanical fall [...] Muscle Weakness (generalized) TREATMENT INTERVENTIONS Therapeutic Activity (54375), Gait Training (43860) Timed Code Treatment (minutes): 44 Skilled Treatment [...] February 03, 2024 TIME: 1:51 PM Normal [facility] THERAPY NT HNO ID: [id number] Author: ISABELLA SANCHEZ, SAMIR/L Service: Occupational Therapy Author Type: Occupational Therapist Type: Therapy (PT/OT/Speech/Resp) Filed: 02/03/2024 12:47 Note Text: Occupational Therapy Detention Facility Treatment Summary SERVICE DATE: 02/03/2024 SERVICE TIME: 1110 to 1150 ROOM: [place] [address] OT 6 Clicks Score: 19 DISCHARGE RECOMMENDATIONS Home OT (vs discharge to [facility]) Recommended Discharge Disposition Comments: Pt's discharge disposition [...] home; will discuss further with social media community manager/family re: equipment set up at home. Family [...] to commode (more content not included)... Normal [facility] THERAPY NT HNO ID: [id number] Author: ELLE HOOVER, PT Service: Physical Therapy Author Type: Physical Therapist Type: Therapy (PT/OT/Speech/Resp) Filed: 02/03/2024 12:22 Note Text: Physical Therapy Detention Facility Treatment Summary SERVICE DATE: 02/03/2024 SERVICE TIME: 0942 to 1017 ROOM: [place] [address] PT 6 Clicks Score: 17 DISCHARGE RECOMMENDATIONS [...] chair) Stairs CURRENT HOSPITAL COURSE Admt to [facility] on 01/11 due to mechanical fall [...] Muscle Weakness (generalized) TREATMENT INTERVENTIONS Therapeutic Activity (50441) Timed Code Treatment (minutes): 35 Skilled Treatment Time (minutes): 35 TRAINING AND (more content not included)... Normal [facility] SOCIAL WORKon 02-02-2024 SOCIAL WORK HNO ID: [id number] Author: KRYSTYNA FOX LSW Service: Social Work Author Type: Jewel Grinder Type: Social Work Filed: 02/02/2024 17:11 Note Text: Summary: [facility] SOCIAL WORK PROGRESS NOTE Name: Jackelyn Bradshaw Received [facility] with LCD of 02/03. Phoned patient's daughter/legal guardian to inform. Provided phone number to appeal per daughter's request. 1709: Faxed [facility] to [facility] with note that daughter/LG had been contacted. Provided name and phone number. Records for [facility] have been printed. Nurse to fax them once we hear from [facility] and are given Case Control number. Signature: MICHELA Chanel Date: February 02, 2024 Time: 4:28 PM [facility] SOCIAL WORK HNO ID: [id number] Author: KRYSTYNA FOX LSW Service: Social Work Author Type: Jewel Grinder Type: Social Work Filed: 02/03/2024 14:40 Note [...] Tissue Injury Attendees Present at Rounds: CM, ROBOTICS MECHANIC, NM, OT, PT, R.D, SW Needs Discussed on Rounds: Discharge Needs Family Concerns Mobility Plan of Care Anticipated Discharge Disposition: Home with Home Health Last Vitals: BP 148/66 Pulse 74 Temp (Src) 98.1 (Oral) Resp 16 Ht 5' 3 (1.60m) Wt 184 lb 1.4 oz (83.5kg) SpO2 97% BMI 32.62 kg/(m2). O2 Therapy: Room Air SW: Plan - return home with [facility]. Dtr/ has secured one aide to help. [...] February 02, 2024 TIME: 3:11 PM CSN: [id number] [facility] SOCIAL WORK HNO ID: [id number] Author: KRYSTYNA FOX LSW Service: Social Work Author Type: Jewel Grinder Type: Social Work Filed: 02/02/2024 14:59 Note Text: Summary: [facility] SOCIAL WORK PROGRESS NOTE Name: Jackelyn Bradshaw Patient says she is tired. Had a work out today with therapy. Said she walked farther than she has so far. Patient stating her great panfilo Toro is having his 1 yr old b-day libertarian on 02/05. Patient states she may be able to be there. Knows insurance update is today. Told patient that [facility] is agreeable to provide home therapy. Signature: MICHELA Chanel Date: February 02, 2024 Time: 2:44 PM Normal [facility] THERAPY NTon 02-02-2024 THERAPY NT HNO ID: [id number] Author: MICKIE RUTLEDGE, PT, DPT Service: Physical Therapy Author Type: Physical Therapist Type: Therapy (PT/OT/Speech/Resp) Filed: 02/02/2024 14:04 Note Text: Physical Therapy Detention Facility Treatment Summary SERVICE DATE: 02/02/2024 SERVICE TIME: 1319 to 1357 ROOM: [place] [address] PT 6 Clicks Score: 17 DISCHARGE RECOMMENDATIONS [...] decreased Stairs CURRENT HOSPITAL COURSE Admt to [facility] on 01/11 due to mechanical fall [...] Muscle Weakness (generalized) TREATMENT INTERVENTIONS Therapeutic Activity (02579), Gait Training (07816) Timed Code Treatment (minutes): 38 Skilled Treatment [...] Standing Maribel (more content not included)... Normal [facility] THERAPY NT HNO ID: [id number] Author: BI GARCIA OTR/Lashae Service: ? Author Type: Occupational Therapist Type: Therapy (PT/OT/Speech/Resp) Filed: 02/02/2024 10:51 Note Text: Occupational Therapy Detention Facility Treatment Summary SERVICE DATE: 02/02/2024 SERVICE TIME: 0947 to 1032 ROOM: [place] [address] OT 6 Clicks Score: 20 DISCHARGE RECOMMENDATIONS Home OT (vs discharge to [facility]) Recommended Discharge Disposition Comments: Pt's discharge disposition [...] throughout transitions CURRENT HOSPITAL COURSE Admt to [facility] on 01/11 due to mechanical fall [...] amount h (more content not included)... Normal [facility] THERAPY NT HNO ID: [id number] Author: MICKIE RUTLEDGE, PT, DPT Service: Physical Therapy Author Type: Physical Therapist Type: Therapy (PT/OT/Speech/Resp) Filed: 02/02/2024 09:28 Note Text: Physical Therapy Detention Facility Treatment Summary SERVICE DATE: 02/02/2024 SERVICE TIME: 840 to 922 ROOM: [place] [address] PT 6 Clicks Score: 17 DISCHARGE RECOMMENDATIONS [...] decreased Stairs CURRENT HOSPITAL COURSE Admt to [facility] on 01/11 due to mechanical fall [...] Muscle Weakness (generalized) TREATMENT INTERVENTIONS Therapeutic Exercise (43246), Gait Training (21102), Therapeutic Activity (61796) Timed Code Treatment (minutes): 42 Skilled Treatment [...] DPT PA (more content not included)... Normal [facility] Basic metabolic 2000 panelon 02-01-2024 Anion gap [Moles/Vol] 7 mmol/L Low 9-18 [facility] Comment on above: Order Comment: Speci men Type: BLOOD SPECIMEN Ordering Facility: [facility] Address: [address] [place] [address] Performed By: #### 1 9123-9, 48763-1 #### [facility] CLIA [id number] [address] [place] [address] [place] Calcium [Mass/Vol] 8.3 mg/dL Low 8.5-10.2 [facility] Comment on above: Order Comment: Speci men Type: BLOOD SPECIMEN Ordering Facility: [facility] Address: [address] [place] [address] Performed By: #### 1 9123-9, 75945-0 #### [facility] CLIA [id number] [address] [place] [address] [place] Chloride [Moles/Vol] 107 mmol/L High 97-105 [facility] Comment on above: Order Comment: Speci men Type: BLOOD SPECIMEN Ordering Facility: [facility] Address: [address] [place] [address] Performed By: #### 1 9123-9, 75707-1 #### [facility] CLIA [id number] [address] [place] [address] [place] CO2 [Moles/Vol] 28 mmol/L Normal 22-30 [facility] Comment on above: Order Comment: Speci terrence Type: BLOOD SPECIMEN Ordering Facility: [facility] Address: [address] [place] [address] Performed By: #### 1 91239, 73759-7 #### [facility] CLIA [id number] [address] [place] [address] [place] Creatinine [Mass/Vol] 1.15 mg/dL High 0.58-0.96 [facility] Comment on above: Order Comment: Hilary ocampo Type: BLOOD SPECIMEN Ordering Facility: [facility] Address: [address] [place] [address] Performed By: #### 1 91239, 60512-2 #### [email or web address] CLIA [id number] [address] [place] [address] Creatinine and Glomerular filtration rate.predicted panel (S/P/Bld) 47 mL/min/1.73m??? Low >=60 [facility] Comment on above: Order Comment: Hilary ocampo Type: BLOOD SPECIMEN Ordering Facility: [facility] Address: [address] [place] [address] Result Comment: Patience mated Glomerular Filtration Rate [...] actual GFR. Performed By: #### 1 9123-9, 30903-3 #### [facility] CLIA [id number] [address] [place] [address] [place] Glucose [Mass/Vol] 99 mg/dL Normal 74-99 [facility] Comment on above: Order Comment: Hilary ocampo Type: BLOOD SPECIMEN Ordering Facility: [facility] Address: [address] [place] [address] Result Comment: The [place] Diabetes Association (ADA) provides guidance for cutoff [...] Standards of Medical Care in Diabetes 2016, [place] [employer] Association. Diabetes Care. 2016.39(Suppl 1). Performed By: #### 1 9123-9, 67213-0 #### [facility] CLIA [id number] [address] [place] [address] [place] Potassium [Moles/Vol] 4.6 mmol/L Normal 3.7-5.1 [facility] Comment on above: Order Comment: Hilary ocampo Type: BLOOD SPECIMEN Ordering Facility: [facility] Address: [address] [place] [address] Performed By: #### 1 9123-9, 25658-6 #### [facility] CLIA [id number] [address] [place] [address] [place] Sodium [Moles/Vol] 142 mmol/L Normal 136-144 [facility] Comment on above: Order Comment: Hilary ocampo Type: BLOOD SPECIMEN Ordering Facility: [facility] Address: [address] [place] [address] Performed By: #### 1 9123-9, 06612-5 #### [facility] CLIA [id number] [address] [place] [address] [place] Urea nitrogen [Mass/Vol] 26 mg/dL High 7-21 [facility] Comment on above: Order Comment: Speci men Type: BLOOD SPECIMEN Ordering Facility: [facility] Address: [address] [place] [address] Performed By: #### 1 9123-9, 18743-9 #### [facility] CLIA [id number] [address] [place] [address] [place] [facility] CBC panel Auto (Bld)on 01-31 Erythrocyte distribution width (RBC) [Ratio] 14.5 % Normal 11.5-15.0 [facility] Comment on above: Order Comment: Speci men Type: BLOOD SPECIMENOrdering Facility: [facility] Address: [address] [place] [address] Performed By: #### 5 8410-2 ####[facility] [id number] [place] [address] [place] Hematocrit (Bld) [Volume fraction] 27.5 % Low 36.0-46.0 [facility] Comment on above: Order Comment: Speci men Type: BLOOD SPECIMENOrdering Facility: [facility] Address: [address] [place] [address] Performed By: #### 5 8410-2 ####[facility] [id number] [place] [address] [place] Hemoglobin (Bld) [Mass/Vol] 8.5 g/dL Low 11.5-15.5 [facility] Comment on above: Order Comment: Speci men Type: BLOOD SPECIMENOrdering Facility: [facility] Address: [address] [place] [address] Performed By: #### 5 8410-2 ####[facility] [id number] [place] [address] [place] MCH (RBC) [Entitic mass] 32.2 pg Normal 26.0-34.0 [facility] Comment on above: Order Comment: Speci men Type: BLOOD SPECIMENOrdering Facility: [facility] Address: [address] [place] [address] Performed By: #### 5 8410-2 ####[facility] [id number] [place] [address] [place] [facility] MCHC (RBC) [Mass/Vol] 30.9 g/dL Normal 30.5-36.0 [facility] Comment on above: Order Comment: Speci men Type: BLOOD SPECIMENOrdering Facility: [facility] Address: [address] [place] [address] Performed By: #### 5 8410-2 ####[facility] [id number] [place] [address] [facility] MCV (RBC) [Entitic vol] 104.2 fL High 80.0-100.0 [facility] Comment on above: Order Comment: Speci men Type: BLOOD SPECIMENOrdering Facility: [facility] Address: [address] [place] [address] Performed By: #### 5 8410-2 ####[facility] [id number] [place] [address] [place] [facility] Platelet mean volume (Bld) [Entitic vol] 9.8 fL Normal 9.0-12.7 [facility] Comment on above: Order Comment: Speci men Type: BLOOD SPECIMENOrdering Facility: [facility] Address: [address] [place] [address] Performed By: #### 5 8410-2 ####[facility] LAB[facility] [id number] [place] [address] [facility] Platelets (Bld) [#/Vol] 240 10*3/uL Normal 150-400 [facility] Comment on above: Order Comment: Speci men Type: BLOOD SPECIMENOrdering Facility: [facility] Address: [address] [place] [address] Performed By: #### 5 8410-2 ####[facility] LAB[facility]IA [id number] [place] [address] [place] RBC (Bld) [#/Vol] 2.64 10*6/uL Low 3.90-5.20 [facility] Comment on above: Order Comment: Speci men Type: BLOOD SPECIMENOrdering Facility: [facility] Address: [address] [place] [address] Performed By: #### 5 8410-2 ####[facility] [id number] [place] [address] [facility] WBC (Bld) [#/Vol] 6.01 10*3/uL Normal 3.70-11.00 [facility] Comment on above: Order Comment: Speci men Type: BLOOD SPECIMENOrdering Facility: [facility] Address: [address] [place] [address] Performed By: #### 5 8410-2 ####[facility] [id number] [place] [address] [facility] Magnesium SerPl-mCncon 01-31 Magnesium [Mass/Vol] 2.2 mg/dL Normal 1.7-2.3 [facility] Comment on above: Order Comment: Speci men Type: BLOOD SPECIMEN Ordering Facility: [facility] Address: [address] [place] [address] Performed By: #### 1 9123-9, 00271-2 #### [facility] CLIA [id number] [address] [place] [address] [facility] [place] NUTRITIONon 02-01-2024 NUTRITION HNO ID: [id number] Author: MENDOZA COREAS RD Service: Nutrition Therapy [...] As evidenced by: Procedure/surgery Estimated kilocalorie needs: 4524-6990 Calorie Calculation Method: [place] (with activity factor) (adjusted body wt [...] DATE: February 01, 2024 TIME: 1:29 PM [facility] SOCIAL WORKon 02-01-2024 SOCIAL WORK HNO ID: [id number] Author: KRYSTYNA FOX LSW Service: Social Work Author Type: Jewel Grinder Type: Social Work Filed: 02/01/2024 11:11 Note [...] could maybe pay for 1 month of [facility]. Told her of one [facility] that is about half the cost. Tez did think of a couple of ladies in the neighborhood who may be able to help. They help with other families. She is going to call them to check. Tez thought 02/01 was patient's last day at [facility]. KOKO explained that an insurance update is due that day and she will have at least 3 days notice before DC once we hear from insurance. Gave her info on [employer], and ramps. Signature: MICHELA Chanel Date: February 01, 2024 Time: 11:06 AM Normal [facility] THERAPY NTon 02-01-2024 THERAPY NT HNO ID: [id number] Author: LETICIA WALTERS PT Service: Physical Therapy Author Type: Certified Fire Investigator Type: Therapy (PT/OT/Speech/Resp) Filed: 02/01/2024 17:10 Note Text: Attestation signed by Leticia Walters, PT at 02/01/2024 5:10 PM I reviewed and agree with the documentation corresponding to this therapy visit. SIGNATURE: Leticia Walters, PT DATE: February 01, 2024 TIME: 5:10 PM Physical Therapy Detention Facility Treatment Summary SERVICE DATE: 02/01/2024 SERVICE TIME: 1259 to 1339 ROOM: [place] [address] PT 6 Clicks Score: 17 DISCHARGE RECOMMENDATIONS [...] 5 Stairs CURRENT HOSPITAL COURSE Admt to [facility] on 01/11 due to mechanical fall [...] Muscle Weakness (generalized) TREATMENT INTERVENTIONS Therapeutic Exercise (18937), Gait Training (11220) Timed Code Treatment (minutes): 40 Skilled Treatment [...] Mobility THERAPEU (more content not included)... Normal [facility] THERAPY NT HNO ID: [id number] Author: LETICIA WALTERS PT Service: Physical Therapy Author Type: Certified Fire Investigator Type: Therapy (PT/OT/Speech/Resp) Filed: 02/01/2024 17:05 Note Text: Attestation signed by Leticia Walters PT at 02/01/2024 5:05 PM I reviewed and agree with the documentation corresponding to this therapy visit. SIGNATURE: Leticia Walters PT DATE: February 01, 2024 TIME: 5:05 PM Physical Therapy Detention Facility Treatment SERVICE DATE: 02/01/2024 SERVICE TIME: 1115 to 1142 ROOM: [place] [address] Recommended Discharge Disposition: Home PT Recommended Discharge [...] Status: WBAT Current Hospital Course: Admt to [facility] on 01/11 due to mechanical fall [...] Stand (count): (more content not included)... Normal [facility] THERAPY NT HNO ID: [id number] Author: ISABELLA SANCHEZ OTR/L Service: Occupational Therapy Author Type: Brick Layer Type: Therapy (PT/OT/Speech/Resp) Filed: 02/01/2024 16:52 Note Text: Attestation signed by Isabella Sanchez OTR/L at 02/01/2024 4:52 PM I reviewed and agree with the documentation corresponding to this therapy visit. SIGNATURE: KATARZYNA Garcia DATE: February 01, 2024 TIME: 4:52 PM Occupational Therapy Detention Facility Treatment Summary SERVICE DATE: 02/01/2024 SERVICE TIME: 914 to 1014 ROOM: [place] [address] OT 6 Clicks Score: 20 DISCHARGE RECOMMENDATIONS Home OT (vs discharge to [facility]) Recommended Discharge Disposition Comments: Pt's discharge disposition [...] throughout transitions CURRENT HOSPITAL COURSE Admt to [facility] on 01/11 due to mechanical fall at home resulting in L intertrochanteric hip fracture. s/p ORIF L hip. Relevant Past Medical History: Arthiti (more content not included)... Normal [facility] THERAPY NTon 01-30-2024 THERAPY NT HNO ID: [id number] Author: JAYE MARK OTR/L Service: Occupational Therapy Author Type: Occupational Therapist Type: Therapy (PT/OT/Speech/Resp) Filed: 01/30/2024 11:02 Note Text: Occupational Therapy Detention Facility Treatment Summary SERVICE DATE: 01/30/2024 SERVICE TIME: 1030 to 1057 ROOM: [place] [address] OT 6 Clicks Score: 19 DISCHARGE RECOMMENDATIONS [...] increased fatigue CURRENT HOSPITAL COURSE Admt to [facility] on 01/11 due to mechanical fall [...] hallway every (more content not included)... Normal [facility] THERAPY NT HNO ID: [id number] Author: ELLE HOOVER, HUGH Service: Physical Therapy Author Type: Certified Fire Investigator Type: Therapy (PT/OT/Speech/Resp) Filed: 01/30/2024 17:16 Note Text: Attestation signed by Elle Hoover PT at 01/30/2024 5:16 PM I reviewed and agree with the documentation corresponding to this therapy visit. SIGNATURE: Elle Hoover PT DATE: January 30, 2024 TIME: 5:16 PM Physical Therapy Detention Facility Treatment Summary SERVICE DATE: 01/30/2024 SERVICE TIME: 841 ROOM: [place] [address] PT 6 Clicks Score: 17 DISCHARGE RECOMMENDATIONS [...] steps Stairs CURRENT HOSPITAL COURSE Admt to [facility] on 01/11 due to mechanical fall [...] Muscle Weakness (generalized) TREATMENT INTERVENTIONS Therapeutic Exercise (72021), Therapeutic Activity (42102), Gait Training (50777) Timed Code Treatment (minutes): 50 Skilled Treatment [...] Planning, E (more content not included)... Normal [facility] Basic metabolic 2000 panelon 01-29-2024 Anion gap [Moles/Vol] 8 mmol/L Low 9-18 [facility] Comment on above: Order Comment: Speci men Type: BLOOD SPECIMEN Ordering Facility: [facility] Address: [address] [place] [address] Performed By: #### 2 4321-2 #### [facility] CLIA [id number] [address] [place] [address] [place] Calcium [Mass/Vol] 8.3 mg/dL Low 8.5-10.2 [facility] Comment on above: Order Comment: Speci men Type: BLOOD SPECIMEN Ordering Facility: [facility] Address: [address] [place] [address] Performed By: #### 2 4321-2 #### [facility] CLIA [id number] [address] [place] [address] [place] Chloride [Moles/Vol] 107 mmol/L High 97-105 [facility] Comment on above: Order Comment: Speci men Type: BLOOD SPECIMEN Ordering Facility: [facility] Address: [address] [place] [address] Performed By: #### 2 4321-2 #### [facility] CLIA [id number] [address] [place] [address] [place] CO2 [Moles/Vol] 26 mmol/L Normal 22-30 [facility] Comment on above: Order Comment: Speci men Type: BLOOD SPECIMEN Ordering Facility: [facility] Address: [address] [place] [address] Performed By: #### 2 4321-2 #### [facility] CLIA [id number] [address] [place] [address] [place] Creatinine [Mass/Vol] 1.23 mg/dL High 0.58-0.96 [facility] Comment on above: Order Comment: Speci men Type: BLOOD SPECIMEN Ordering Facility: [facility] Address: [address] [place] [address] Performed By: #### 2 4321-2 #### [facility] CLIA [id number] [address] [place] [address] [place] Creatinine and Glomerular filtration rate.predicted panel (S/P/Bld) 44 mL/min/1.73m??? Low >=60 [facility] Comment on above: Order Comment: Hilary ocampo Type: BLOOD SPECIMEN Ordering Facility: [facility] Address: [address] [place] [address] Result Comment: Patience mated Glomerular Filtration Rate [...] GFR. Performed By: #### 2 4321-2 #### [facility] CLIA [id number] [address] [place] [address] [place] Glucose [Mass/Vol] 94 mg/dL Normal 74-99 [facility] Comment on above: Order Comment: Hilary ocampo Type: BLOOD SPECIMEN Ordering Facility: [facility] Address: [address] [place] [address] Result Comment: The [place] Diabetes Association (ADA) provides guidance for cutoff [...] Standards of Medical Care in Diabetes 2016, [place] [employer]. Diabetes Care. 2016.39(Suppl 1). Performed By: #### 2 4321-2 #### [facility] CLIA [id number] [address] [place] [address] [place] Potassium [Moles/Vol] 4.3 mmol/L Normal 3.7-5.1 [facility] Comment on above: Order Comment: Hilary ocampo Type: BLOOD SPECIMEN Ordering Facility: [facility] Address: [address] [place] [address] Performed By: #### 2 4321-2 #### [facility] CLIA [id number] [address] [place] [address] [place] Sodium [Moles/Vol] 141 mmol/L Normal 136-144 [facility] Comment on above: Order Comment: Speci men Type: BLOOD SPECIMEN Ordering Facility: [facility] Address: [address] [place] [address] Performed By: #### 2 4321-2 #### [facility] CLIA [id number] [address] [place] [address] [place] Urea nitrogen [Mass/Vol] 24 mg/dL High 7-21 [facility] Comment on above: Order Comment: Speci men Type: BLOOD SPECIMEN Ordering Facility: [facility] Address: [address] [place] [address] Performed By: #### 2 4321-2 #### [facility] CLIA [id number] [address] [place] [address] [place] CBC panel Auto (Bld)on 01-28 Erythrocyte distribution width (RBC) [Ratio] 14.5 % Normal 11.5-15.0 [facility] Comment on above: Order Comment: Speci men Type: BLOOD SPECIMEN Ordering Facility: [facility] Address: [address] [place] [address] Performed By: #### 5 8410-2 #### [facility] CLIA [id number] [address] [place] [address] [place] Hematocrit (Bld) [Volume fraction] 25.7 % Low 36.0-46.0 [facility] Comment on above: Order Comment: Speci men Type: BLOOD SPECIMEN Ordering Facility: [facility] Address: [address] [place] [address] Performed By: #### 5 8410-2 #### [facility] CLIA [id number] [address] [place] [address] [place] Hemoglobin (Bld) [Mass/Vol] 8.1 g/dL Low 11.5-15.5 [facility] Comment on above: Order Comment: Speci men Type: BLOOD SPECIMEN Ordering Facility: [facility] Address: [address] [place] [address] Performed By: #### 5 8410-2 #### [facility] CLIA [id number] [address] [place] [address] [facility] MCH (RBC) [Entitic mass] 32.1 pg Normal 26.0-34.0 [facility] Comment on above: Order Comment: Speci men Type: BLOOD SPECIMEN Ordering Facility: [facility] Address: [address] [place] [address] Performed By: #### 5 8410-2 #### [facility] CLIA [id number] [address] [place], [place] [address] [place] [address] OF [facility] MCHC (RBC) [Mass/Vol] 31.5 g/dL Normal 30.5-36.0 [facility] Comment on above: Order Comment: Speci men Type: BLOOD SPECIMEN Ordering Facility: [facility] Address: [address] [place] [address] Performed By: #### 5 8410-2 #### [facility] CLIA [id number] [address] [place] [address] [place] MCV (RBC) [Entitic vol] 102.0 fL High 80.0-100.0 [facility] Comment on above: Order Comment: Speci men Type: BLOOD SPECIMEN Ordering Facility: [facility] Address: [address] [place] [address] Performed By: #### 5 8410-2 #### [facility] CLIA [id number] [address] [place] [address] [place] Platelet mean volume (Bld) [Entitic vol] 9.1 fL Normal 9.0-12.7 [facility] Comment on above: Order Comment: Speci men Type: BLOOD SPECIMEN Ordering Facility: [facility] Address: [address] [place] [address] Performed By: #### 5 8410-2 #### [facility] CLIA [id number] [address] [place] [address] [facility] [place] Platelets (Bld) [#/Vol] 249 10*3/uL Normal 150-400 [facility] Comment on above: Order Comment: Hilary ocampo Type: BLOOD SPECIMEN Ordering Facility: [facility] Address: [address] [place] [address] Performed By: #### 5 8410-2 #### [facility] CLIA [id number] [address] [place], [place] [address] [place] [address] [place] RBC (Bld) [#/Vol] 2.52 10*6/uL Low 3.90-5.20 [facility] Comment on above: Order Comment: Hilary ocampo Type: BLOOD SPECIMEN Ordering Facility: [facility] Address: [address] [place] [address] Performed By: #### 5 8410-2 #### [facility] CLIA [id number] [address] WBC (Bld) [#/Vol] 7.88 10*3/uL Normal 3.70-11.00 [facility] Comment on above: Order Comment: Hilary ocampo Type: BLOOD SPECIMEN Ordering Facility: [facility] Address: [address] [place] [address] Performed By: #### 5 8410-2 #### [facility] CLIA [id number] [address] OF [facility] SOCIAL WORKon 01-29-2024 SOCIAL WORK HNO ID: [id number] Author: KRYSTYNA FOX LSW Service: Social Work Author Type: Jewel Grinder Type: Social Work Filed: 01/29/2024 11:44 Note Text: Summary: Patient Care Conference [facility] INTERDISCIPLINARY ROUNDS SERVICE DATE: 01/29/2024 ADMISSION DATE: 01/17/2024 SERVICE TIME: 11:00 AM ANTICIPATED D/C DATE: pending insurance approval (update to be sent today) Physical Therapy: Elle Occupational Therapy: Rosie Social Work: Krystyna Met with Jackelyn Bradshaw and daughter esther Mota Zachary, vlijwptbpkejz-rs-myo Juanis, dtr-in-law Lizbet and grandkaylee White to [...] or walk every hour during the day. grounds worker is working on getting a home health care agency for PT and OT. RECORDS MANAGEMENT MANAGER may also be ordered as long as [...] January 29, 2024 TIME: 10:53 AM CSN: [id number] [facility] THERAPY NTon 01-29-2024 THERAPY NT HNO ID: [id number] Author: ELLE HOOVER, PT Service: Physical Therapy Author Type: Certified Fire Investigator Type: Therapy (PT/OT/Speech/Resp) Filed: 01/29/2024 15:49 Note Text: Attestation signed by Elle Hoover PT at 01/29/2024 3:49 PM I reviewed and agree with the documentation corresponding to this therapy visit. SIGNATURE: Elle Hoover PT DATE: January 29, 2024 TIME: 3:49 PM Physical Therapy Detention Facility Treatment Summary SERVICE DATE: 01/29/2024 SERVICE TIME: 1245 to 1315 ROOM: [place] [address] PT 6 Clicks Score: 15 DISCHARGE RECOMMENDATIONS [...] bed Stairs CURRENT HOSPITAL COURSE Admt to [facility] on 01/11 due to mechanical fall [...] Muscle Weakness (generalized) TREATMENT INTERVENTIONS Therapeutic Exercise (86507), Therapeutic Activity (21945) Timed Code Treatment (minutes): 30 Skilled Treatment [...] Transfers THERAP (more content not included)... Normal [facility] THERAPY NT HNO ID: [id number] Author: JAYE MARK OTR/L Service: Occupational Therapy Author Type: Brick Layer Type: Therapy (PT/OT/Speech/Resp) Filed: 01/29/2024 13:31 Note Text: Attestation signed by Jaye Mark OTR/L at 01/29/2024 1:31 PM I reviewed and agree with the documentation corresponding to this therapy visit. SIGNATURE: KATARZYNA Vilchis DATE: January 29, 2024 TIME: 1:31 PM Summary: OT Care Conference Occupational Therapy Detention Facility Treatment Summary SERVICE DATE: 01/29/2024 SERVICE TIME: 1104 to 1134 ROOM: [place] [address] OT 6 Clicks Score: 19 DISCHARGE RECOMMENDATIONS Home OT (vs discharge to [facility]) Recommended Discharge Disposition Comments: Pt's discharge disposition [...] Wheeled Walker CURRENT HOSPITAL COURSE Admt to [facility] on 01/11 due to mechanical fall [...] Chair, Grab (more content not included)... Normal [facility] THERAPY NT HNO ID: [id number] Author: ELLE HOOVER PT Service: Physical Therapy Author Type: Physical Therapist Type: Therapy (PT/OT/Speech/Resp) Filed: 01/29/2024 12:19 Note Text: Summary: PT Care Conference Physical Therapy Detention Facility Treatment Summary SERVICE DATE: 01/29/2024 SERVICE TIME: 1104 to 1134 ROOM: [place] [address] PT 6 Clicks Score: 15 DISCHARGE RECOMMENDATIONS [...] present as well as PT, OT, and CUFF SETTER OVERLOCK. Discussion regarding patient's current level of functioning, with patient's fatigue and endurance levels as a potential barrier to progression, as well as patient making significant progress since initial evaluation for all mobility, with patient now at a min/mod A for all bed mobility, min A for transfers (increased assist as patient fatigues) and min A for short bouts for ambulation at [facility]. Encouraged installment of ramp this date, as [...] present as well as PT, OT, and CUFF SETTER OVERLOCK. FUNCTIONAL STATUS Bed Mobility Rolling: Minimal Assistance [...] commode Stairs CURRENT HOSPITAL COURSE Admt to [facility] on 01/11 due to mechanical fall [...] Muscle Weakness (generalized) TREATMENT INTERVENTIONS Therapeutic Activity (20153) Timed Code Treatment (minutes): 15 Skilled Treatment Time (minutes): 15 EXERCISE None performed this session, although encouraged family to recommend daily (more content not included)... Normal [facility] SOCIAL WORKon 01-28-2024 SOCIAL WORK HNO ID: [id number] Author: KRYSTYNA FOX LSW Service: Social Work Author Type: Jewel Grinder Type: Social Work Filed: 01/28/2024 16:19 Note Text: Summary: SW rounding SOCIAL WORK PROGRESS NOTE Name: Jackelyn Bradshaw Patient says she was quite sore after her appt this am. Says her left leg still causes her problems. Not in pain when in bed. Signature: MICHELA Chanel Date: January 28, 2024 Time: 4:18 PM [facility] THERAPY NTon 01-28-2024 THERAPY NT HNO ID: [id number] Author: LETICIA WALTERS PT Service: Physical Therapy Author Type: Certified Fire Investigator Type: Therapy (PT/OT/Speech/Resp) Filed: 01/28/2024 16:55 Note Text: Attestation signed by Leticia Walters PT at 01/28/2024 4:55 PM I reviewed and agree with the documentation corresponding to this therapy visit. SIGNATURE: Leticia Walters PT DATE: January 28, 2024 TIME: 4:55 PM Summary: PT Insurance Update Physical Therapy Detention Facility Treatment Summary SERVICE DATE: 01/28/2024 SERVICE TIME: 1446 to 1508 ROOM: [place] [address] PT 6 Clicks Score: 15 DISCHARGE RECOMMENDATIONS [...] commode Stairs CURRENT HOSPITAL COURSE Admt to [facility] on 01/11 due to mechanical fall [...] Muscle Weakness (generalized) TREATMENT INTERVENTIONS Therapeutic Exercise (42623) Timed Code Treatment (minutes): 22 Skilled Treatment Time (minutes): 22 EXERCISE Exercises Exercise Performed: Ankle Pumps, Quad Sets, Glut Sets, Heel Slides, SAQ, SLR, Hip Abduction Ankle Pumps (number of reps): 20 Quad Sets (number of reps): 10 Glut Sets (number of reps): 20 Heel Slides ( (more content not included)... Normal [facility] THERAPY NT HNO ID: [id number] Author: BI GARCIA OTR/L Service: ? Author Type: Occupational Therapist Type: Therapy (PT/OT/Speech/Resp) Filed: 01/28/2024 14:00 Note Text: Occupational Therapy Detention Facility Treatment Summary SERVICE DATE: 01/28/2024 SERVICE TIME: 1302 to 1346 ROOM: [place] [address] OT Clicks Score: 19 DISCHARGE RECOMMENDATIONS Home OT (vs discharge to [facility]) Recommended Discharge Disposition Comments: Pt's discharge disposition [...] with use of AE including dressing stick, mortgage consultant, and sock aid. Pt required Min A for donning socks completely for pulling up over gracia hose. Pt thread BLE's into sweatpants with use of mortgage consultant (I) and pulled up to below hips [...] To Sit: Minimal Assistance use of leg promotions manager; Min A required for getting LLE over [...] Wheeled Walker CURRENT HOSPITAL COURSE Admt to [facility] on 01/11 due to mechanical fall [...] Walker- Wheeled, (more content not included)... Normal [facility] Basic metabolic 2000 panelon 01-27-2024 Anion gap [Moles/Vol] 7 mmol/L Low 9-18 [facility] Comment on above: Order Comment: Speci men Type: BLOOD SPECIMENOrdering Facility: [facility] Address: [address] [place] [address] Performed By: #### 2 4321-2 ####[facility] [id number] [place] [address] [place] Calcium [Mass/Vol] 8.2 mg/dL Low 8.5-10.2 [facility] Comment on above: Order Comment: Speci men Type: BLOOD SPECIMENOrdering Facility: [facility] Address: [address] [place] [address] Performed By: #### 2 4321-2 ####[facility]IA [id number] [place] [address] [place] Chloride [Moles/Vol] 110 mmol/L High 97-105 [facility] Comment on above: Order Comment: Speci men Type: BLOOD SPECIMENOrdering Facility: [facility] Address: [address] [place] [address] Performed By: #### 2 4321-2 ####[facility] [id number] [facility] [address] [place] CO2 [Moles/Vol] 26 mmol/L Normal 22-30 [facility] Comment on above: Order Comment: Speci men Type: BLOOD SPECIMENOrdering Facility: [facility] Address: [address] [place] [address] Performed By: #### 2 4321-2 ####[facility] [id number] [place] [address] [place] Creatinine [Mass/Vol] 1.20 mg/dL High 0.58-0.96 [facility] Comment on above: Order Comment: Hilary ocampo Type: BLOOD SPECIMENOrdering Facility: [facility] Address: [address] [place] [address] Performed By: #### 2 4321-2 ####[facility] LABCLIA [id number] [place] [id number] [facility] Creatinine and Glomerular filtration rate.predicted panel (S/P/Bld) 45 mL/min/1.73m??? Low >=60 [facility] Comment on above: Order Comment: Hilary ocampo Type: BLOOD SPECIMENOrdering Facility: [facility] Address: [address] [place] [address] Result Comment: Patience mated Glomerular Filtration Rate [...] actual GFR. Performed By: #### 2 4321-2 ####[facility] LABCLIA [id number] [place] [id number] [place] Glucose [Mass/Vol] 86 mg/dL Normal 74-99 [facility] Comment on above: Order Comment: Hilary ocampo Type: BLOOD SPECIMENOrdering Facility: [facility] Address: [address] [place] [address] Result Comment: The [place] Diabetes Association (ADA) provides guidance for cutoff [...] Standards of Medical Care in Diabetes 2016, [place] [employer]. Diabetes Care. 2016.39(Suppl 1). Performed By: #### 2 4321-2 ####[email or web address] LABCLIA [id number] [place] [address] [place] Potassium [Moles/Vol] 4.3 mmol/L Normal 3.7-5.1 [facility] Comment on above: Order Comment: Speci men Type: BLOOD SPECIMENOrdering Facility: [facility] Address: [address] [place] [address] Performed By: #### 2 4321-2 ####[email or web address] LABCLIA [id number] [place] [address] [place] [facility] Sodium [Moles/Vol] 143 mmol/L Normal 136-144 [facility] Comment on above: Order Comment: Speci men Type: BLOOD SPECIMENOrdering Facility: [facility] Address: [address] [place] [address] Performed By: #### 2 4321-2 ####[facility] [id number] [place] [address] [place] Urea nitrogen [Mass/Vol] 24 mg/dL High 7-21 [facility] Comment on above: Order Comment: Speci men Type: BLOOD SPECIMENOrdering Facility: [facility] Address: [address] [place] [address] Performed By: #### 2 4321-2 ####[facility] [id number] [place] [address] [facility] [place] CBC panel Auto (Bld)on 01-26 Erythrocyte distribution width (RBC) [Ratio] 14.6 % Normal 11.5-15.0 [facility] Comment on above: Order Comment: Speci men Type: BLOOD SPECIMENOrdering Facility: [facility] Address: [address] [place] [address] Performed By: #### 5 8410-2 ####[email or web address] LABCLIA [id number] [place] [address] [place] Hematocrit (Bld) [Volume fraction] 25.4 % Low 36.0-46.0 [facility] Comment on above: Order Comment: Speci men Type: BLOOD SPECIMENOrdering Facility: [facility] Address: [address] [place] [address] Performed By: #### 5 8410-2 ####[facility]CLIA [id number] [place] [address] [facility] [place] Hemoglobin (Bld) [Mass/Vol] 7.9 g/dL Low 11.5-15.5 [facility] Comment on above: Order Comment: Speci men Type: BLOOD SPECIMENOrdering Facility: [facility] Address: [address] [place] [address] Performed By: #### 5 8410-2 ####[facility] LABCLIA [id number] [place] [id number] [facility] MCH (RBC) [Entitic mass] 32.1 pg Normal 26.0-34.0 [facility] Comment on above: Order Comment: Speci men Type: BLOOD SPECIMENOrdering Facility: [facility] Address: [address] [place] [address] Performed By: #### 5 8410-2 ####[facility] LABCLIA [id number] [place] [address] [place] MCHC (RBC) [Mass/Vol] 31.1 g/dL Normal 30.5-36.0 [facility] Comment on above: Order Comment: Speci men Type: BLOOD SPECIMENOrdering Facility: [facility] Address: [address] [place] [address] Performed By: #### 5 8410-2 ####[facility] LABCLIA [id number] [place] [address] [facility] [place] MCV (RBC) [Entitic vol] 103.3 fL High 80.0-100.0 [facility] Comment on above: Order Comment: Speci men Type: BLOOD SPECIMENOrdering Facility: [facility] Address: [address] [place] [address] Performed By: #### 5 8410-2 ####[facility] LABCLIA [id number] [facility] [address] [place] Platelet mean volume (Bld) [Entitic vol] 9.9 fL Normal 9.0-12.7 [facility] Comment on above: Order Comment: Speci men Type: BLOOD SPECIMENOrdering Facility: [facility] Address: [address] [place] [address] Performed By: #### 5 8410-2 ####[facility] LABCL[facility] [id number] [facility] [facility] [place] [address] [place] Platelets (Bld) [#/Vol] 277 10*3/uL Normal 150-400 [facility] Comment on above: Order Comment: Speci men Type: BLOOD SPECIMENOrdering Facility: [facility] Address: [address] [place] [address] Performed By: #### 5 8410-2 ####[facility] [id number] [facility] [place] [address] [place] RBC (Bld) [#/Vol] 2.46 10*6/uL Low 3.90-5.20 [facility] Comment on above: Order Comment: Speci men Type: BLOOD SPECIMENOrdering Facility: [facility] Address: [address] [place] [address] Performed By: #### 5 8410-2 ####[facility] LABCLIA [id number] [facility] [place] [address] [facility] OF [place] WBC (Bld) [#/Vol] 7.62 10*3/uL Normal 3.70-11.00 [facility] Comment on above: Order Comment: Speci men Type: BLOOD SPECIMENOrdering Facility: [facility] Address: [address] [place] [address] Performed By: #### 5 8410-2 ####[facility] LABCLIA [id number] [place] [address] [place] Folate SerPl-mCncon 01-27-20 Folate [Mass/Vol] ng/mL Normal >4.7 [facility] Comment on above: Order Comment: Speci men Type: BLOOD SPECIMEN [facility] Facility[facility] Address: [address] [place] [address] Result Comment: A re sult of > 20 ng/mL is not necessarily indicative of a pathologic or treatable condition: it reflects a limitation of the test methodology. Assay reference range: 4.8 to 24.2 ng/mL. Suitable for detection of folate deficiency. Reference: Folate III (Folate III) [package insert V 1.0 [place]]. [facility], [place], [place]: August 2015. Performed By: #### 2 132-9, 35945-1, 2283-8 #### [facility] CLIA [id number] [address] OF [place] Iron and Iron binding capaci ty panelon 01-27-2024 Iron [Mass/Vol] 68 ug/dL Normal 41-186 [facility] Comment on above: Order Comment: Speci men Type: BLOOD SPECIMEN [facility] Address: [address] [place] [address] Performed By: #### 2 132-9, 47357-9, 8 #### [facility] CLIA [id number] [address] [place] Iron binding capacity [Mass/Vol] 264 ug/dL Normal 232-386 [facility] Comment on above: Order Comment: Speci men Type: BLOOD SPECIMEN [facility] Address: [address] [place] [address] Performed By: #### 2 132-9, 41059-5, 8 #### [facility] CLIA [id number] [address] Iron saturation [Mass fraction] 25.8 % Normal 15.0-57.0 [facility] Comment on above: Order Comment: Speci men Type: BLOOD SPECIMEN [facility] Address: [address] [id number] Performed By: #### 2 132-9, 70928-9, 2284-8 #### [facility] [id number] [address] SOCIAL WORKon 01-27-2024 SOCIAL WORK HNO ID: [id number] Author: KRYSTYNA FOX LSW Service: Social Work Author Type: Jewel Grinder Type: Social Work Filed: 01/27/2024 18:09 Note Text: Summary: SW rounding SOCIAL WORK PROGRESS NOTE Name: Jackelyn Bradshaw Told patient about conference/family training on 01/28. Patient was aware. She says her main concern is her left knee. Says it gives out when she tries to walk. Signature: MICHELA Chanel Date: January 27, 2024 Time: 12:15 PM Normal [facility] SOCIAL WORK HNO ID: [id number] Author: KRYSTYNA FOX LSW Service: Social Work Author Type: Jewel Grinder Type: Social Work Filed: 01/27/2024 17:18 Note [...] Urinary Retention Attendees Present at Rounds: CM, ROBOTICS MECHANIC, NM, OT, PT, SW Needs Discussed on [...] training 01/28 11:00. DC to home with [facility]. PT: Making progress with good potential to continue to improve. Would really like to get more time with patient to continue her progress. OT: Improved slow progress. Barriers, lower body ADLs and toileting. Will need a 3:1 commode. Nursing: DOCUMENTED BY: MICHELA Chanel PATIENT NAME: Jackelyn rBadshaw DATE: January 27, 2024 TIME: 11:06 AM CSN: [id number] [facility] THERAPY NTon 01-27-2024 THERAPY NT HNO ID: [id number] Author: ELLE HOOVER PT Service: Physical Therapy Author Type: Certified Fire Investigator Type: Therapy (PT/OT/Speech/Resp) Filed: 01/27/2024 16:02 Note Text: Attestation signed by Elle Hoover, PT at 01/27/2024 4:02 PM I reviewed and agree with the documentation corresponding to this therapy visit. SIGNATURE: Elle Hoover, PT DATE: January 27, 2024 TIME: 4:02 PM Physical Therapy Detention Facility Treatment Summary SERVICE DATE: 01/27/2024 SERVICE TIME: 1425 to 1503 ROOM: [place] [address] PT 6 Clicks Score: 16 DISCHARGE RECOMMENDATIONS [...] commode Stairs CURRENT HOSPITAL COURSE Admt to [facility] on 01/11 due to mechanical fall [...] Muscle Weakness (generalized) TREATMENT INTERVENTIONS Therapeutic Exercise (61509), Therapeutic Activity (67811) Timed Code Treatment (minutes): 38 Skilled Treatment [...] EDUCATION PROVI (more content not included)... Normal [facility] THERAPY NT HNO ID: [id number] Author: ISABELLA SANCHEZ OTR/Lashae Service: Occupational Therapy Author Type: Occupational Therapist Type: Therapy (PT/OT/Speech/Resp) Filed: 01/27/2024 15:06 Note Text: Occupational Therapy Detention Facility Treatment Summary SERVICE DATE: 01/27/2024 SERVICE TIME: 1305 to 1345 ROOM: [place] [address] OT 6 Clicks Score: 18 DISCHARGE RECOMMENDATIONS [...] Wheeled Walker CURRENT HOSPITAL COURSE Admt to [facility] on 01/11 due to mechanical fall [...] Tub/Shower Type: (more content not included)... Normal [facility] THERAPY NT HNO ID: [id number] Author: ELLE HOOVER PT Service: Physical Therapy Author Type: Certified Fire Investigator Type: Therapy (PT/OT/Speech/Resp) Filed: 01/27/2024 12:06 Note Text: Attestation signed by Elle Hoover PT at 01/27/2024 12:06 PM I reviewed and agree with the documentation corresponding to this therapy visit. SIGNATURE: Elle Hoover PT DATE: January 27, 2024 TIME: 12:06 PM Physical Therapy Detention Facility Treatment Summary SERVICE DATE: 01/27/2024 SERVICE TIME: 845 ROOM: [place] [address] PT 6 Clicks Score: 16 DISCHARGE RECOMMENDATIONS [...] 2 Stairs CURRENT HOSPITAL COURSE Admt to [facility] on 01/11 due to mechanical fall [...] Muscle Weakness (generalized) TREATMENT INTERVENTIONS Therapeutic Exercise (59999), Gait Training (66113), Therapeutic Activity (61463) Timed Code Treatment (minutes): 40 Skilled Treatment [...] Exercise Progr (more content not included)... Normal [facility] Vit B12 SerPl-ncon 024 Cobalamin (Vitamin B12) [Mass/Vol] 1433 pg/mL High 232-1245 [facility] Comment on above: Order Comment: Speci men Type: BLOOD SPECIMENOrdering Facility: [facility] Address: [address] [place] [address] Performed By: #### 2 132-9, 08048-1, 2284-8 ####[facility]ORY[facility]IA [id number] [place] [address] [place] SOCIAL WORKon 01-26-2024 SOCIAL WORK HNO ID: [id number] Author: KRYSTYNA FOX LSW Service: Social Work Author Type: Jewel Grinder Type: Social Work Filed: 01/26/2024 10:11 Note Text: Summary: Family Call/conference/traini ng SOCIAL WORK PROGRESS NOTE Name: Jackelyn Bradshaw Scheduled Patient Care Conference/Family Training with patient's daughter Tez tentatively for 01/28 at 1330. Tez to check with patient's bpfzw-fr-nnu Juanis. 01/28 is best day for daughter this week. 1011: Tez called back and said she needs to change time on 01/28. She can be here at 1100. Signature: MICHELA Chanel Date: January 26, 2024 Time: 9:11 AM Normal [facility] THERAPY NTon 01-26-2024 THERAPY NT HNO ID: [id number] Author: ELLE HOOVER PT Service: Physical Therapy Author Type: Certified Fire Investigator Type: Therapy (PT/OT/Speech/Resp) Filed: 01/26/2024 15:15 Note Text: Attestation signed by Elle Hoover PT at 01/26/2024 3:15 PM I reviewed and agree with the documentation corresponding to this therapy visit. SIGNATURE: Elle Hoover PT DATE: January 26, 2024 TIME: 3:15 PM Physical Therapy Detention Facility Treatment Summary SERVICE DATE: 01/26/2024 SERVICE TIME: 1418 to 1454 ROOM: [place] [address] PT 6 Clicks Score: 16 DISCHARGE RECOMMENDATIONS [...] steps Stairs CURRENT HOSPITAL COURSE Admt to [facility] on 01/11 due to mechanical fall [...] Muscle Weakness (generalized) TREATMENT INTERVENTIONS Therapeutic Exercise (22798), Gait Training (19464) Timed Code Treatment (minutes): 36 Skilled Treatment [...] Dosing, Cuing (more content not included)... Normal [facility] THERAPY NT HNO ID: [id number] Author: ELLE HOOVER, PT Service: Physical Therapy Author Type: Physical Therapist Type: Therapy (PT/OT/Speech/Resp) Filed: 01/26/2024 14:58 Note Text: Physical Therapy Detention Facility Treatment Summary SERVICE DATE: 01/26/2024 SERVICE TIME: 1051 to 1155 ROOM: [place] [address] PT 6 Clicks Score: 16 DISCHARGE RECOMMENDATIONS [...] 2 Stairs CURRENT HOSPITAL COURSE Admt to [facility] on 01/11 due to mechanical fall [...] January 26, 2024 TIME: 2:56 PM Normal [facility] THERAPY NT HNO ID: [id number] Author: ISABELLA SANCHEZ OTR/L Service: Occupational Therapy Author Type: Occupational Therapist Type: Therapy (PT/OT/Speech/Resp) Filed: 01/26/2024 10:01 Note Text: Summary: OT Insurance Update Occupational Therapy Detention Facility Treatment Summary SERVICE DATE: 01/26/2024 SERVICE TIME: 849 to 939 ROOM: [place] [address] OT 6 Clicks Score: 18 DISCHARGE RECOMMENDATIONS [...] Body Moderate Assistance, Additional Information pt used mortgage consultant to francisco briefs over feet with verbal [...] Moderate A (more content not included)... Normal [facility] NUTRITIONon 01-25-2024 NUTRITION HNO ID: [id number] Author: MENDOZA COREAS RD Service: Nutrition Therapy Author Type: Registered Dietitian Type: Nutrition Filed: 01/25/2024 14:51 Note Text: NUTRITION THERAPY PROGRESS NOTE SERVICE DATE: 01/25/2024 SERVICE TIME: 2:49 PM Nutrition Assessment: Recommended Malnutrition Diagnosis: Unable to Identify Malnutrition at this time (01/18/24 0916 : Mendoza Coreas RD) Estimated kilocalorie needs: 0013-3208 Calorie Calculation Method: [place]-St. Jeor (with activity factor) (adjusted body wt [...] January 25, 2024 TIME: 2:49 PM Normal [facility] THERAPY NTon 01-25-2024 THERAPY NT HNO ID: [id number] Author: LETIICA WALTERS PT Service: Physical Therapy Author Type: Physical Therapist Type: Therapy (PT/OT/Speech/Resp) Filed: 01/25/2024 15:39 Note Text: Physical Therapy Detention Facility Treatment Summary SERVICE DATE: 01/25/2024 SERVICE TIME: 1355 to 1434 ROOM: [place] [address] PT 6 Clicks Score: 15 DISCHARGE RECOMMENDATIONS [...] LE.) Stairs CURRENT HOSPITAL COURSE Admt to [facility] on 01/11 due to mechanical fall [...] Muscle Weakness (generalized) TREATMENT INTERVENTIONS Therapeutic Exercise (27216), Therapeutic Activity (32364), Gait Training (06490) Timed Code Treatment (minutes): 39 Skilled Treatment [...] January 25, 2024 TIME: 3:39 PM Normal [facility] THERAPY NT HNO ID: [id number] Author: LETICIA WALTERS PT Service: Physical Therapy Author Type: Physical Therapist Type: Therapy (PT/OT/Speech/Resp) Filed: 01/25/2024 12:27 Note Text: Physical Therapy Detention Facility Treatment Summary SERVICE DATE: 01/25/2024 SERVICE TIME: 1110 to 1135 ROOM: [place] [address] PT 6 Clicks Score: 15 DISCHARGE RECOMMENDATIONS [...] LE.) Stairs CURRENT HOSPITAL COURSE Admt to [facility] on 01/11 due to mechanical fall [...] Muscle Weakness (generalized) TREATMENT INTERVENTIONS Therapeutic Exercise (01916), Gait Training (67766) Timed Code Treatment (minutes): 25 Skilled Treatment [...] Functional Mobility (more content not included)... Normal [facility] THERAPY NT HNO ID: [id number] Author: ISABELLA SANCHEZ OTR/L Service: Occupational Therapy Author Type: Brick Layer Type: Therapy (PT/OT/Speech/Resp) Filed: 01/25/2024 17:43 Note Text: Attestation signed by Isabella Sanchez OTR/L at 01/25/2024 5:43 PM I reviewed and agree with the documentation corresponding to this therapy visit. SIGNATURE: KATARZYNA Garcia DATE: January 25, 2024 TIME: 5:43 PM Occupational Therapy Detention Facility Treatment Summary SERVICE DATE: 01/25/2024 SERVICE TIME: 1011 to 1045 ROOM: [place] [address] OT 6 Clicks Score: 16 DISCHARGE RECOMMENDATIONS [...] this day. CURRENT HOSPITAL COURSE Admt to [facility] on 01/11 due to mechanical fall [...] Lift Chair, (more content not included)... Normal [facility] NURSING PROGon 01-23-2024 NURSING PROG HNO ID: [id number] Author: FRANCA HARRISON, RN Service: Nursing Author Type: Registered Nurse Type: Nursing Progress Note Filed: 01/23/2024 08:27 Note Text: Patient assisted up in bed for breakfast. All treatments and procedures were explained. Informed patient that OT will see her this morning. Patient verbalized understanding. No questions or concerns were voiced at this time. No family present in room. Normal [facility] THERAPY NTon 01-23-2024 THERAPY NT HNO ID: [id number] Author: ELLE HOOVER, PT Service: Physical Therapy Author Type: Physical Therapist Type: Therapy (PT/OT/Speech/Resp) Filed: 01/23/2024 12:27 Note Text: Physical Therapy Detention Facility Treatment Summary SERVICE DATE: 01/23/2024 SERVICE TIME: 1052 to 1126 ROOM: [place] [address] PT 6 Clicks Score: 14 DISCHARGE RECOMMENDATIONS [...] bed Stairs CURRENT HOSPITAL COURSE Admt to [facility] on 01/11 due to mechanical fall [...] Muscle Weakness (generalized) TREATMENT INTERVENTIONS Therapeutic Exercise (37692), Therapeutic Activity (67983) Timed Code Treatment (minutes): 34 Skilled Treatment [...] Motion, Movement (more content not included)... Normal [facility] THERAPY NT HNO ID: [id number] Author: JAMES NANCE OTA/L Service: Occupational Therapy Author Type: Brick Layer Type: Therapy (PT/OT/Speech/Resp) Filed: 01/23/2024 10:34 Note Text: Attestation signed by Bi Garcia OTR/L at 01/23/2024 12:46 PM I reviewed and agree with the documentation corresponding to this therapy visit. SIGNATURE: KATARZYNA Newman DATE: January 23, 2024 TIME: 12:46 PM Occupational Therapy Detention Facility Treatment Summary SERVICE DATE: 01/23/2024 SERVICE TIME: 904 ROOM: [place] [address] OT 6 Clicks Score: 15 DISCHARGE RECOMMENDATIONS [...] pt transfers) CURRENT HOSPITAL COURSE Admt to [facility] on 01/11 due to mechanical fall at home resulting in L intertrochanteric hip fracture. s/p ORIF L hip. Relevant Past Medical History: Arthitis, CA, HTN, lymphedema, dementia HOME LIVING Patient Lives With: Family (grandson and his wif (more content not included)... Normal [facility] THERAPY NTon 01-22-2024 THERAPY NT HNO ID: [id number] Author: ELLE HOOVER, PT Service: Physical Therapy Author Type: Physical Therapist Type: Therapy (PT/OT/Speech/Resp) Filed: 01/22/2024 15:19 Note Text: Physical Therapy Detention Facility Treatment Summary SERVICE DATE: 01/22/2024 SERVICE TIME: 1400 to 1417 ROOM: [place] [address] PT 6 Clicks Score: 11 DISCHARGE RECOMMENDATIONS [...] off Stairs CURRENT HOSPITAL COURSE Admt to [facility] on 01/11 due to mechanical fall [...] Muscle Weakness (generalized) TREATMENT INTERVENTIONS Therapeutic Activity (87310) Timed Code Treatment (minutes): 10 Skilled Treatment [...] January 22, 2024 TIME: 3:19 PM Normal [facility] THERAPY NT HNO ID: [id number] Author: JAYE MARK OTR/L Service: Occupational Therapy Author Type: Occupational Therapist Type: Therapy (PT/OT/Speech/Resp) Filed: 01/22/2024 14:23 Note Text: Occupational Therapy Detention Facility Treatment SERVICE DATE: 01/22/2024 SERVICE TIME: 1336 to 1417 ROOM: [place] [address] Recommended Discharge Disposition: Home OT (vs discharge to [facility]) Recommended Discharge Disposition Comments: Pt's discharge disposition [...] Status: WBAT Current Hospital Course: Admt to [facility] on 01/11 due to mechanical fall [...] 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 Normal [facility] THERAPY NT HNO ID: [id number] Author: ELLE HOOVER, PT Service: Physical Therapy Author Type: Physical Therapist Type: Therapy (PT/OT/Speech/Resp) Filed: 01/22/2024 12:27 Note Text: Physical Therapy Detention Facility Treatment Summary SERVICE DATE: 01/22/2024 SERVICE TIME: 904 to 954 ROOM: [place] [address] PT 6 Clicks Score: 11 DISCHARGE RECOMMENDATIONS [...] off Stairs CURRENT HOSPITAL COURSE Admt to [facility] on 01/11 due to mechanical fall [...] Muscle Weakness (generalized) TREATMENT INTERVENTIONS Therapeutic Exercise (61168), Therapeutic Activity (38064) Timed Code Treatment (minutes): 50 Skilled Treatment [...] Activation Facilitation (more content not included)... Normal [facility] NURSING PROGon 01-21-2024 NURSING PROG HNO ID: [id number] Author: FRANCA HARRISON RN Service: Nursing Author Type: Registered Nurse Type: Nursing Progress Note Filed: 01/21/2024 11:53 Note Text: Patient sitting up in bed watching tv. All treatments and procedures were explained. Patient verbalized understanding. No questions or concerns were voiced at this time. Normal [facility] SOCIAL WORKon 01-21-2024 SOCIAL WORK HNO ID: [id number] Author: KRYSTYNA FOX LSW Service: Social Work Author Type: Jewel Grinder Type: Social Work Filed: 01/21/2024 16:57 Note Text: Summary: [employer] rounding SOCIAL WORK PROGRESS NOTE Name: Jackelyn Bradshaw Patient says she has good days and then days with a lot of pain. Said when her hip hurts it REALLY hurts Denies any needs from [employer] at this time. Signature: MICHELA Chanel Date: January 21, 2024 Time: 4:52 PM Normal [facility] THERAPY NTon 01-21-2024 THERAPY NT HNO ID: [id number] Author: LETICIA WALTERS PT Service: Physical Therapy Author Type: Certified Fire Investigator Type: Therapy (PT/OT/Speech/Resp) Filed: 01/21/2024 18:50 Note Text: Attestation signed by Leticia Walters PT at 01/21/2024 6:50 PM I reviewed and agree with the documentation corresponding to this therapy visit. SIGNATURE: Leticia Walters PT DATE: January 21, 2024 TIME: 6:50 PM Physical Therapy Detention Facility Treatment Summary SERVICE DATE: 01/21/2024 SERVICE TIME: 1604 to 1614 ROOM: [place] [address] PT 6 Clicks Score: 10 DISCHARGE RECOMMENDATIONS [...] Gait Stairs CURRENT HOSPITAL COURSE Admt to [facility] on 01/11 due to mechanical fall [...] Muscle Weakness (generalized) TREATMENT INTERVENTIONS Therapeutic Activity (55123) Timed Code Treatment (minutes): 10 Skilled Treatment [...] January 21, 2024 TIME: 4:20 PM Normal [facility] THERAPY NT HNO ID: [id number] Author: BI GARCIA OTR/L Service: ? Author Type: Occupational Therapist Type: Therapy (PT/OT/Speech/Resp) Filed: 01/21/2024 15:47 Note Text: Occupational Therapy Detention Facility Treatment Summary SERVICE DATE: 01/21/2024 SERVICE TIME: 1455 to 1531 ROOM: [place] [address] OT 6 Clicks Score: 13 DISCHARGE RECOMMENDATIONS [...] into upright position. attempted use of leg promotions manager to manage LE's off EOB, however pt with difficulty d/t overall decreased strength Sit To Supine: Moderate Assistance, Additional Information of 1, use of rail, assist for managing BLE's into bed Sit to Stand Minimal Assistance, Additional Information of 1 to rolando river from EOB Stand to Sit Minimal Assistance, Additional Information from rolando stedy to chair and [facility] Bed to Chair Total Assistance Bed To Chair Transfer Type: Lift (rolando stedy) Bed To Chair Transfer Equipment: Gait Belt, Lift (rolando stedy) Toilet/Commode Total Assistance, Additional Information use of rolando stedy Shower Functional Mobility Maximal Assistance, Total Assistance Functional Mobility Device: (rolando steady used for transfers) CURRENT HOSPITAL COURSE Admt to [facility] on 01/11 due to mechanical fall [...] Falls Zac (more content not included)... Normal [facility] THERAPY NT HNO ID: [id number] Author: LETICIA WALTERS, PT Service: Physical Therapy Author Type: Physical Therapist Type: Therapy (PT/OT/Speech/Resp) Filed: 01/21/2024 12:21 Note Text: Physical Therapy Detention Facility Treatment Summary SERVICE DATE: 01/21/2024 SERVICE TIME: 1120 to 1145 ROOM: [place] [address] PT 6 Clicks Score: 10 DISCHARGE RECOMMENDATIONS [...] Gait Stairs CURRENT HOSPITAL COURSE Admt to [facility] on 01/11 due to mechanical fall [...] Muscle Weakness (generalized) TREATMENT INTERVENTIONS Therapeutic Exercise (81488), Therapeutic Activity (12410) Timed Code Treatment (minutes): 25 Skilled Treatment [...] January 21, 2024 TIME: 12:21 PM Normal [facility] Basic metabolic 2000 panelon 01-20-2024 Anion gap [Moles/Vol] 7 mmol/L Low 9-18 [facility] Comment on above: Order Comment: Speci men Type: BLOOD SPECIMEN [facility] Address: [address] [place] [address] Performed By: #### 1 9123-9, 83312-6 #### [facility] CLIA [id number] [address] [place] [address] [place] Calcium [Mass/Vol] 8.2 mg/dL Low 8.5-10.2 [facility] Comment on above: Order Comment: Speci men Type: BLOOD SPECIMEN [facility] Facility: [facility] Address: [address] [place] [address] Performed By: #### 1 9123-9, 71528-1 #### [facility] CLIA [id number] [address] [place] [address] [place] Chloride [Moles/Vol] 108 mmol/L High 97-105 [facility] Comment on above: Order Comment: Hilary ocampo Type: BLOOD SPECIMEN [facility] Facility: [facility] Address: [address] [place] [address] Performed By: #### 1 9123-9, 46010-3 #### [facility] CLIA [id number] [address] [place] [address] [place] CO2 [Moles/Vol] 26 mmol/L Normal 22-30 [facility] Comment on above: Order Comment: Hilary ocampo Type: BLOOD SPECIMEN [facility] Facility: [facility] Address: [address] [place] [address] Performed By: #### 1 9123-9, 54412-6 #### [facility] CLIA [id number] [address] [place] [address] [place] Creatinine [Mass/Vol] 1.26 mg/dL High 0.58-0.96 [facility] Comment on above: Order Comment: Hilary ocampo Type: BLOOD SPECIMEN [facility] Facility: [facility] Address: [address] [place] [address] Performed By: #### 1 9123-9, 71746-5 #### [facility] CLIA [id number] [address] [place] [address] [facility] [place] Creatinine and Glomerular filtration rate.predicted panel (S/P/Bld) 42 mL/min/1.73m??? Low >=60 [facility] Comment on above: Order Comment: Hilary ocampo Type: BLOOD SPECIMEN [facility] Facility: [facility] Address: [address] [place] [address] Result Comment: Patience mated Glomerular Filtration Rate [...] actual GFR. Performed By: #### 1 9123-9, 62287-0 #### [facility] CLIA [id number] [address] [place] [address] [place] Glucose [Mass/Vol] 90 mg/dL Normal 74-99 [facility] Comment on above: Order Comment: Hilary ocampo Type: BLOOD SPECIMEN [facility] Facility: [facility] Address: [address] [place] [address] Result Comment: The [place] Diabetes Association (ADA) provides guidance for cutoff [...] Standards of Medical Care in Diabetes 2016, [place] [employer]. Diabetes Care. 2016.39(Suppl 1). Performed By: #### 1 9123-9, 79257-2 #### [facility] CLIA [id number] [address] [place] [address] [place] Potassium [Moles/Vol] 4.4 mmol/L Normal 3.7-5.1 [facility] Comment on above: Order Comment: Hilary ocampo Type: BLOOD SPECIMEN Ordering Facility: [facility] Address: [address] [place] [address] Performed By: #### 1 9123-9, 36586-0 #### [facility] CLIA [id number] [address] [place] [address] [place] Sodium [Moles/Vol] 141 mmol/L Normal 136-144 [facility] Comment on above: Order Comment: Hilary ocampo Type: BLOOD SPECIMEN Ordering Facility: [facility] Address: [address] [place], [place] [address] Performed By: #### 1 9123-06, 99798-2 #### [facility] CLIA [id number] [address] [place] [address] [place] Urea nitrogen [Mass/Vol] 38 mg/dL High 7-21 [facility] Comment on above: Order Comment: Speci men Type: BLOOD SPECIMEN Ordering Facility: [facility] Address: [address] [place] [address] Performed By: #### 1 9, 42470-0 #### [facility] CLIA [id number] [address] [place] [address] [place] CBC panel Auto (Bld)on 01-19 Erythrocyte distribution width (RBC) [Ratio] 14.1 % Normal 11.5-15.0 [facility] Comment on above: Order Comment: Speci men Type: BLOOD SPECIMEN Ordering Facility: [facility] Address: [address] [place] [address] Performed By: #### 1 9123-06, 85753-9 #### [facility] CLIA [id number] [address] [place] [address] [place] Hematocrit (Bld) [Volume fraction] 25.0 % Low 36.0-46.0 [facility] Comment on above: Order Comment: Speci men Type: BLOOD SPECIMEN Ordering Facility: [facility] Address: [address] [place] [address] Performed By: #### 1 23, 20599-6 #### [facility] CLIA [id number] [address] [place] [address] [place] Hemoglobin (Bld) [Mass/Vol] 8.0 g/dL Low 11.5-15.5 [facility] Comment on above: Order Comment: Speci men Type: BLOOD SPECIMEN Ordering Facility: [facility] Address: [address] [place] [address] Performed By: #### 1 91239, 75446-4 #### [facility] CLIA [id number] [address] [place] [address] [place] MCH (RBC) [Entitic mass] 32.0 pg Normal 26.0-34.0 [facility] Comment on above: Order Comment: Speci men Type: BLOOD SPECIMEN Ordering Facility: [facility] Address: [address] [place] [address] Performed By: #### 1 9123-9, 87469-2 #### [facility] CLIA [id number] [address] [place] [address] [place] MCHC (RBC) [Mass/Vol] 32.0 g/dL Normal 30.5-36.0 [facility] Comment on above: Order Comment: Speci men Type: BLOOD SPECIMEN Ordering Facility: [facility] Address: [address] [place] [address] Performed By: #### 1 9123-9, 88281-1 #### [facility] CLIA [id number] [address] [place], [place] [address] [place] [address] OF [facility] MCV (RBC) [Entitic vol] 100.0 fL Normal 80.0-100.0 [facility] Comment on above: Order Comment: Speci men Type: BLOOD SPECIMEN Ordering Facility: [facility] Address: [address] [place] [address] Performed By: #### 1 9123-9, 14401-1 #### [facility] CLIA [id number] [address] [place] [address] [facility] Platelet mean volume (Bld) [Entitic vol] 10.4 fL Normal 9.0-12.7 [facility] Comment on above: Order Comment: Speci men Type: BLOOD SPECIMEN Ordering Facility: [facility] Address: [address] [place] [address] Performed By: #### 1 9123-9, 28610-9 #### [facility] CLIA [id number] [address] [place] [address] [facility] Platelets (Bld) [#/Vol] 157 10*3/uL Normal 150-400 [facility] Comment on above: Order Comment: Speci men Type: BLOOD SPECIMEN Ordering Facility: [facility] Address: [address] [place] [address] Performed By: #### 1 9123-9, 17975-2 #### [facility] CLIA [id number] [address] [place], [place] [address] [place] RBC (Bld) [#/Vol] 2.50 10*6/uL Low 3.90-5.20 [facility] Comment on above: Order Comment: Justyni men Type: BLOOD SPECIMEN Ordering Facility: [facility] Address: [address] [place] [address] Performed By: #### 1 9123-9, 72358-7 #### [facility] CLIA [id number] [address] [place], [place] [address] [facility] OF [place] WBC (Bld) [#/Vol] 7.44 10*3/uL Normal 3.70-11.00 [facility] Comment on above: Order Comment: Justyni men Type: BLOOD SPECIMEN Ordering Facility: [facility] Address: [address] [place] [address] Performed By: #### 1 9123-9, 71036-7 #### [facility] CLIA [id number] [address] [place], [place] [address] [facility] SOCIAL WORKon 01-20-2024 SOCIAL WORK HNO ID: [id number] Author: KRYSTYNA FOX LSW Service: Social Work Author Type: Jewel Grinder Type: Social Work Filed: 01/20/2024 17:16 Note [...] Urinary Retention Attendees Present at Rounds: CM, ROBOTICS MECHANIC, NM, OT, PT, SW Needs Discussed on [...] alone in house. DC Plan: Home with [facility]. Will need FT/cc wait a week [...] January 20, 2024 TIME: 10:49 AM CSN: [id number] Normal [facility] THERAPY NTon 01-20-2024 THERAPY NT HNO ID: [id number] Author: ELLE HOOVER PT Service: Physical Therapy Author Type: Certified Fire Investigator Type: Therapy (PT/OT/Speech/Resp) Filed: 01/20/2024 16:31 Note Text: Attestation signed by Elle Hoover PT at 01/20/2024 4:31 PM I reviewed and agree with the documentation corresponding to this therapy visit. SIGNATURE: Elle Hoover, PT DATE: January 20, 2024 TIME: 4:31 PM Physical Therapy Detention Facility Treatment Summary SERVICE DATE: 01/20/2024 SERVICE TIME: 1518 to 1550 ROOM: [place] [address] PT 6 Clicks Score: 9 DISCHARGE RECOMMENDATIONS [...] Gait Stairs CURRENT HOSPITAL COURSE Admt to [facility] on 01/11 due to mechanical fall [...] Muscle Weakness (generalized) TREATMENT INTERVENTIONS Therapeutic Activity (64572) Timed Code Treatment (minutes): 30 Skilled Treatment [...] January 20, 2024 TIME: 4:02 PM Normal [facility] THERAPY NT HNO ID: [id number] Author: ISABELLA SANCHEZ, OTR/L Service: Occupational Therapy Author Type: Occupational Therapist Type: Therapy (PT/OT/Speech/Resp) Filed: 01/20/2024 12:55 Note Text: Occupational Therapy Detention Facility Treatment Summary SERVICE DATE: 01/20/2024 SERVICE TIME: 1126 to 1200 ROOM: [place] [address] OT 6 Clicks Score: 13 DISCHARGE RECOMMENDATIONS Home OT (vs discharge to [facility]) Recommended Discharge Disposition Comments: Pt's discharge disposition [...] for transfers) CURRENT HOSPITAL COURSE Admt to [facility] on 01/11 due to mechanical fall [...] family completes (more content not included)... Normal [facility] CASE MGT INMULUGETA Nick 2023 CASE MGT INIT JARET HNO ID: [id number] Author: KRYSTYNA FOX LSW Service: Social Work Author Type: Jewel Grinder Type: Care Mgt Initial Assessment Filed: 02/02/2024 16:18 Note Text: Summary: Initial Assessment CARE MANAGEMENT: ASSESSMENT AND DISCHARGE PLAN SERVICE DATE: January 19, 2024 SERVICE TIME: 1540 PCP: Yoav Chakraborty MD Primary Contact: Extended Emergency Contact Information Primary Emergency Contact: Tez Smith Relation: Daughter Secondary Emergency Contact: Lv Parker Mobile Relation: None Admission Status: Inpatient Swing Insurance Provider: [facility] Discharge Planning requested by: Per Department Practice [...] Patient Goal(s): Be able to go home [place] Explained: [place] Given: Yes Level of Care [...] Care Order Post-Acute Discharge Plan: Home with [facility] Patient lives with grandnolan Schwab,his Juanis and their 1 yr old child. Dtr has caregivers lined up to assist patient upon DC. Dtr agreeable to [facility] and has no agency preference. Told her that patient said she is lonely at home. Daughter not sure why. Said Juanis is around and checks on her regularly. Patient's physical address is [address] [place] [address]. SIGNATURE: MICHELA Chanel PATIENT NAME: Jackelyn Bradshaw DATE: January 19, 2024 TIME: 4:30 PM CONTACT #: [id number] [facility] NURSING PROGon 01-19-2024 NURSING PROG HNO ID: [id number] Author: FRANCA HARRISON RN Service: Nursing Author Type: Registered Nurse Type: Nursing Progress Note Filed: 01/19/2024 11:45 Note Text: Patient sitting up in bed eating breakfast. All treatments and procedures were explained. Patent verbalized understanding. No questions or concerns were voiced at this time. [facility] NURSING PROG HNO ID: [id number] Author: FUNMILAYO MALAGON RN Service: Nursing Author [...] Patient is a 2 person transfer. Normal [facility] THERAPY NTon 01-19-2024 THERAPY NT HNO ID: [id number] Author: ISABELLA SANCHEZ OTR/L Service: Occupational Therapy Author Type: Occupational Therapist Type: Therapy (PT/OT/Speech/Resp) Filed: 01/19/2024 15:40 Note Text: Occupational Therapy Detention Facility Treatment Summary SERVICE DATE: 01/19/2024 SERVICE TIME: 1450 to 1515 ROOM: [place] [address] OT 6 Clicks Score: 13 DISCHARGE RECOMMENDATIONS [...] like she was going to pass out. associate dean of students and aide assisted therapist with vitals taken [...] in transfers) CURRENT HOSPITAL COURSE Admt to [facility] on 01/11 due to mechanical fall [...] Safety, Se (more content not included)... Normal [facility] THERAPY NT HNO ID: [id number] Author: MICKIE RUTLEDGE, PT, DPT Service: Physical Therapy Author Type: Physical Therapist Type: Therapy (PT/OT/Speech/Resp) Filed: 01/19/2024 14:48 Note Text: Physical Therapy Detention Facility Treatment Summary SERVICE DATE: 01/19/2024 SERVICE TIME: 1019 to 1049 ROOM: [place] [address] PT 6 Clicks Score: 9 DISCHARGE RECOMMENDATIONS [...] Gait Stairs CURRENT HOSPITAL COURSE Admt to [facility] on 01/11 due to mechanical fall [...] Ankle pumps, quad sets, glut sets, BLE [id number] SAQ 1x10 L LE in supine Patient [...] January 19, 2024 TIME: 2:35 PM Normal [facility] Basic metabolic 2000 panelon 01-18-2024 Anion gap [Moles/Vol] 7 mmol/L Low 9-18 [facility] Comment on above: Order Comment: Speci men Type: BLOOD SPECIMEN Ordering Facility: [facility] Address: [address] [place] [address] Performed By: #### 2 4321-2 #### [facility] CLIA [id number] [address] [place] [address] [place] Calcium [Mass/Vol] 8.4 mg/dL Low 8.5-10.2 [facility] Comment on above: Order Comment: Speci men Type: BLOOD SPECIMEN Ordering Facility: [facility] Address: [address] [place] [address] Performed By: #### 2 4321-2 #### [facility] CLIA [id number] [address] [place] [address] [place] Chloride [Moles/Vol] 108 mmol/L High 97-105 [facility] Comment on above: Order Comment: Speci men Type: BLOOD SPECIMEN Ordering Facility: [facility] Address: [address] [place] [address] Performed By: #### 2 4321-2 #### [facility] CLIA [id number] [address] [place] [address] [place] CO2 [Moles/Vol] 27 mmol/L Normal 22-30 [facility] Comment on above: Order Comment: Speci men Type: BLOOD SPECIMEN Ordering Facility: [facility] Address: [address] [place] [address] Performed By: #### 2 4321-2 #### [facility] CLIA [id number] [address] [place] [address] [place] Creatinine [Mass/Vol] 1.60 mg/dL High 0.58-0.96 [facility] Comment on above: Order Comment: Speci men Type: BLOOD SPECIMEN Ordering Facility: [facility] Address: [address] [place] [address] Performed By: #### 2 4321-2 #### [facility] CLIA [id number] [address] [place] [address] [place] Creatinine and Glomerular filtration rate.predicted panel (S/P/Bld) 32 mL/min/1.73m??? Low >=60 [facility] Comment on above: Order Comment: Hilary ocampo Type: BLOOD SPECIMEN Ordering Facility: [facility] Address: [address] [place] [address] Result Comment: Patience mated Glomerular Filtration Rate [...] GFR. Performed By: #### 2 4321-2 #### [facility] CLIA [id number] [address] [place], [place] [address] [place] Glucose [Mass/Vol] 100 mg/dL High 74-99 [facility] Comment on above: Order Comment: Hilary ocampo Type: BLOOD SPECIMEN Ordering Facility: [facility] Address: [address] [place] [address] Result Comment: The [place] Diabetes Association (ADA) provides guidance for cutoff [...] Standards of Medical Care in Diabetes 2016, [place] Diabetes Association. Diabetes Care. 2016.39(Suppl 1). Performed By: #### 2 4321-2 #### [facility] CLIA [id number] [address] [place] [address] [place] Potassium [Moles/Vol] 5.1 mmol/L Normal 3.7-5.1 [facility] Comment on above: Order Comment: Hilary ocampo Type: BLOOD SPECIMEN Ordering Facility: [facility] Address: [address] [place] [address] Performed By: #### 2 4321-2 #### [facility] CLIA [id number] [address] [place] [address] [place] [facility] Sodium [Moles/Vol] 142 mmol/L Normal 136-144 [facility] Comment on above: Order Comment: Speci men Type: BLOOD SPECIMEN Ordering Facility: [facility] Address: [address] [place] [address] Performed By: #### 2 4321-2 #### [facility] CLIA [id number] [address] [place] [address] [place] Urea nitrogen [Mass/Vol] 62 mg/dL High 7-21 [facility] Comment on above: Order Comment: Speci men Type: BLOOD SPECIMEN Ordering Facility: [facility] Address: [address] [place] [address] Performed By: #### 2 4321-2 #### [facility] CLIA [id number] [address] [place] [id number] [facility] OF [place] CBC panel Auto (Bld)on 01-17 Erythrocyte distribution width (RBC) [Ratio] 14.3 % Normal 11.5-15.0 [facility] Comment on above: Order Comment: Speci men Type: BLOOD SPECIMEN Ordering Facility: [facility] Address: [address] [place] [address] Performed By: #### 5 8410-2 #### [facility] CLIA [id number] [address] [place] [address] [place] Hematocrit (Bld) [Volume fraction] 26.0 % Low 36.0-46.0 [facility] Comment on above: Order Comment: Speci men Type: BLOOD SPECIMEN Ordering Facility: [facility] Address: [address] [place] [address] Performed By: #### 5 8410-2 #### [facility] CLIA [id number] [address] [place] [address] [place] Hemoglobin (Bld) [Mass/Vol] 8.2 g/dL Low 11.5-15.5 [facility] Comment on above: Order Comment: Speci men Type: BLOOD SPECIMEN Ordering Facility: [facility] Address: [address] [place] [address] Performed By: #### 5 8410-2 #### [facility] CLIA [id number] [address] [place] [address] [facility] MCH (RBC) [Entitic mass] 31.7 pg Normal 26.0-34.0 [facility] Comment on above: Order Comment: Speci men Type: BLOOD SPECIMEN Ordering Facility: [facility] Address: [address] [place] [address] Performed By: #### 5 8410-2 #### [facility] CLIA [id number] [address] [place], [place] [address] [place] [address] [place] MCHC (RBC) [Mass/Vol] 31.5 g/dL Normal 30.5-36.0 [facility] Comment on above: Order Comment: Speci men Type: BLOOD SPECIMEN Ordering Facility: [facility] Address: [address] [place] [address] Performed By: #### 5 8410-2 #### [facility] CLIA [id number] [address] [place] [address] [place] MCV (RBC) [Entitic vol] 100.4 fL High 80.0-100.0 [facility] Comment on above: Order Comment: Speci men Type: BLOOD SPECIMEN Ordering Facility: [facility] Address: [address] [place] [address] Performed By: #### 5 8410-2 #### [facility] CLIA [id number] [address] [place], [place] [address] [place] [address] Platelet mean volume (Bld) [Entitic vol] 10.4 fL Normal 9.0-12.7 [facility] Comment on above: Order Comment: Speci men Type: BLOOD SPECIMEN Ordering Facility: [facility] Address: [address] [place] [address] Performed By: #### 5 8410-2 #### [facility] CLIA [id number] [address] [place], [place] [address] [place] [address] OF [facility] Platelets (Bld) [#/Vol] 150 10*3/uL Normal 150-400 [facility] Comment on above: Order Comment: Hilary ocampo Type: BLOOD SPECIMEN Ordering Facility: [facility] Address: [address] [place] [address] Performed By: #### 5 8410-2 #### [facility] CLIA [id number] [address] [place], [place] [address] [place] [address] OF [facility] RBC (Bld) [#/Vol] 2.59 10*6/uL Low 3.90-5.20 [facility] Comment on above: Order Comment: Speci men Type: BLOOD SPECIMEN Ordering Facility: [facility] Address: [address] [place] [address] Performed By: #### 5 8410-2 #### [facility] CLIA [id number] [address] [place] [address] WBC (Bld) [#/Vol] 7.60 10*3/uL Normal 3.70-11.00 [facility] Comment on above: Order Comment: Hilary ocampo Type: BLOOD SPECIMEN Ordering Facility: [facility] Address: [address] [place] [address] Performed By: #### 5 8410-2 #### [facility] CLIA [id number] [address] OF [facility] HISTORY PHYSICALon HISTORY PHYSICAL HNO ID: [id number] Author: ARNIE GALVIN APRN.CNP Service: Hospital Medicine Author Type: Nurse Practitioner Type: H&P Filed: 01/18/2024 23:00 Note Text: Attestation signed by Hermes Richardson MD at 01/19/2024 3:41 PM [facility] STAFF PHYSICIAN NOTE OF PERSONAL INVOLVEMENT IN [...] resolved hospital problems. * Hermes Richardson MD, [facility] Staff,Dept of Hospital Medicine January 19, 2024 3:41 PM Pager:Click here to page DEPARTMENT OF HOSPITAL MEDICINE HISTORY AND PHYSICAL EXAM SERVICE DATE: 01/18/2024 SERVICE TIME: 9:29 AM Primary Care Physician: Yoav Chakraborty MD NIGHT AND WEEKEND COVERAGE: [facility] Medicine MARGARET 7a-7p Page [phone] [id number] Subjective CHIEF COMPLAINT: rehabilitation following hospitalization HPI: This is a 83 year old female with PMH dementia, breast cancer, arthritis, HTN, CKD, presented to [place] on 01/12/2024 following a fall at home. She was found to have left hip fracture and underwent ORIF on 01/13/2024. Post-op course was complicated by acute blood loss anemia likely 2/2 surgery; Hgb was 7.6 at [place]. FORTINO on CKD that was resolving at [place] with IVF; Cr 1.97. Lisinopril was initially held, but resumed at [place]. She is WBAT. She was started on Eliquis BID x30 days. She was DCd with sal due to urinary retention. Urine cx was + <1000 salina aguilar (no tx received). PT/OT recommended SNF at [place], thus she was transferred to [facility] for further rehab services. Today, patient is resting in bed. She is AANDO x3. She denies pain to her left hip. No SOB or CP. She lives at home with family and is hopeful to return at [place]. Call to legal guardian Tez-- updated on [...] BMI 32. (more content not included)... Normal [facility] NUTRITIONon 01-18-2024 NUTRITION HNO ID: [id number] Author: MENDOZA COREAS RD Service: Nutrition Therapy Author Type: Registered Dietitian Type: Nutrition Filed: 01/18/2024 10:24 Note Text: NUTRITION THERAPY INITIAL ASSESSMENT SERVICE DATE: 01/18/2024 SERVICE TIME: 09:46 AM Nutrition Assessment: Recommended Malnutrition Diagnosis: Unable to Identify Malnutrition at this time Nutrition Diagnosis: Problem: Increased nutrient needs Related to: Wound healing As evidenced by: Procedure/surgery Estimated kilocalorie needs: 2415-6900 Calorie Calculation Method: [place]-St. Jeor (with activity factor) (adjusted body wt [...] January 18, 2024 TIME: 9:46 AM Normal [facility] THERAPY NTon 01-18-2024 THERAPY NT HNO ID: [id number] Author: ISABELLA SANCHEZ OTR/Lashae Service: Occupational Therapy Author Type: Occupational Therapist Type: Therapy (PT/OT/Speech/Resp) Filed: 01/18/2024 17:41 Note Text: Summary: OT Evaluation Occupational Therapy Detention Facility Evaluation Summary SERVICE DATE: 01/18/2024 SERVICE TIME: 1415 to 1453 ROOM: [place] [address] OT 6 Clicks Score: 13 DISCHARGE RECOMMENDATIONS Home OT (vs discharge to [facility]) Recommended Discharge Disposition Comments: Pt's discharge disposition [...] Functional Mobility CURRENT HOSPITAL COURSE Admt to [facility] on 01/11 due to mechanical fall [...] Shopping, Tr (more content not included)... Normal [facility] THERAPY NT HNO ID: [id number] Author: LETICIA WALTERS, PT Service: Physical Therapy Author Type: Physical Therapist Type: Therapy (PT/OT/Speech/Resp) Filed: 01/18/2024 12:55 Note Text: Summary: PT eval Physical Therapy Detention Facility Evaluation Summary SERVICE DATE: 01/18/2024 SERVICE TIME: 1047 to 1126 ROOM: [place] [address] PT 6 Clicks Score: 9 DISCHARGE RECOMMENDATIONS [...] Gait Stairs CURRENT HOSPITAL COURSE Admt to [facility] on 01/11 due to mechanical fall [...] Weakness (generalized) TREATMENT INTERVENTIONS Evaluation, Therapeutic Activity (06868), Therapeutic Exercise (27642) Timed Code Treatment (minutes): 20 Skilled Treatment [...] of Physical (more content not included)... Normal [facility] Basic Metabolic Profile (BMP )on 01-17-2024 BUN/CRE 39.1 RATIO High 10-20 [facility] Comment on above: Performed By: #### L 500.2500 #### [facility] [address] [place], [address] CA,Total 7.7 mg/dL Low 8.5-10.1 [facility] Comment on above: Performed By: #### L 500.2500 #### [facility] [address] [place], [address] Chloride [Moles/Vol] 114 mmol/L High 98-107 [facility] Comment on above: Performed By: #### L 500.2500 #### [facility] [address] [place], [address] CO2 [Moles/Vol] 26.0 mmol/L Normal 21.0-32.0 [facility] Comment on above: Performed By: #### L 500.2500 #### [facility] [address] [place], [address] Creatinine [Mass/Vol] 1.97 mg/dL High 0.55-1.02 [facility] Comment on above: Result Comment: The validity of the calculated GFR GFRAA in patients over 70 years has not been determined. Clinical correlation is essential. Performed By: #### L 500.2500 #### [facility] [address] [place], [address] ECRCL 20.59 ml/min Normal [facility] Comment on above: Performed By: #### L 500.2500 #### [facility] [address] [place] [place], [address] EST GFR - AA 31 mL/min Low >60 [facility] Comment on above: Result Comment: Afri can Vincentian GFR Calc Performed By: #### L 500.2500 #### [facility] [address] [place], [address] GAP 1 Low 5-15 [facility] Comment on above: Performed By: #### L 500.2500 #### [facility] [address] [place], [address] GFR/1.73 sq M.predicted among non-blacks MDRD (S/P/Bld) [Vol rate/Area] 26 mL/min/{1.73_m2} Low >60 [facility] Comment on above: Result Comment: Non- GFR Calc Performed By: #### L 500.2500 #### [facility] [address] [place], [address] Glucose [Mass/Vol] 90 mg/dL Normal 74-106 [facility] Comment on above: Performed By: #### L 500.2500 #### [facility] [address] [place], [address] Potassium [Moles/Vol] 5.2 mmol/L High 3.5-5.1 [facility] Comment on above: Performed By: #### L 500.2500 #### [facility] [address] [place], [address] Sodium [Moles/Vol] 141 mmol/L Normal 136-145 [facility] Comment on above: Performed By: #### L 500.2500 #### [facility] [address] [place], [address] Urea nitrogen [Mass/Vol] 77 mg/dL High 7-18 [facility] Comment on above: Performed By: #### L 500.2500 #### [facility] [address] [place], [address] Basophil percentageOrdered B y: Dani Jaramillo on 01-17-2024 Chloride [Moles/Vol] 114 mmol/L 98-107 [facility] Glucose [Mass/Vol] 90 mg/dL 74-106 [facility] Hemoglobin (Bld) [Mass/Vol] 7.6 g/dL 12.0-15.0 [facility] Potassium [Moles/Vol] 5.2 mmol/L 3.5-5.1 [facility] Sodium [Moles/Vol] 141 mmol/L 136-145 [facility] HH, Hemoglobin AND Hematocri ton 01-17-2024 Hematocrit (Bld) [Volume fraction] 23.6 % Low 37-[address] [place] [address] Comment on above: Performed By: #### L 500.4100, L100.0100, L501.9520, L501.9985, L500.4050, L506.1000 #### [facility] [address] [place], [address] Hemoglobin (Bld) [Mass/Vol] 7.6 g/dL Low 12.0-15.0 [facility] Comment on above: Performed By: #### L 500.4100, L100.0100, L501.9520, L501.9985, L500.4050, L506.1000 #### [facility] [address] [place], [address] Hematocrit Auto (Bld) [Volum e fraction]Ordered By: Dani Jaramillo on 01-17-2024 Hematocrit (Bld) [Volume fraction] 23.6 % 37-47 [facility] - Chemistry and C hemistry - challengeOrdered By: Dani Jaramillo on 01-17-2024 CO2 [Moles/Vol] 26.0 mmol/L 21.0-32.0 [facility] Urea nitrogen/Creatinine [Mass ratio] 39.1 mg/mg 10-20 [facility] NURSING PROGon 01-17-2024 NURSING PROG HNO ID: [id number] Author: SINA TARIQ, NARINDER Service: ? Author Type: Registered Nurse Type: Nursing Progress Note Filed: 01/17/2024 19:13 Note Text: Pt transferred from [facility] to [facility] for rehab. Room 107B, bed alarm on. Pt watched channel 95, no fall video. Normal [facility] No Panel InformationOrdered By: Dani Jaramillo on 01-17-2024 Estimated Creatinine Clearance Calc 20.59 ml/min [facility] Estimated GFR (MDRD) Amer 31 mL/min >60 [facility] Comment on above: GFR Calc Estimated GFR (MDRD) Non-Af Amer 26 mL/min >60 [facility] Comment on above: Non- GFR Calc Serum or plasma calcium phill urement (mass/volume)Ordered By: Dani Jaramillo on 01-17-2024 Calcium [Mass/Vol] 7.7 mg/dL 8.5-10.1 [facility] Serum or plasma creatinine m easurement (mass/volume)Ordered By: Dani Jaramillo on 01-17-2024 Creatinine [Mass/Vol] 1.97 mg/dL 0.55-1.02 [facility] Comment on above: The validity of the calculated GFR & GFRAA in patients over 70 years has not been determined. Clinical correlation is essential. Serum or plasma urea nitroge n measurement (mass/volume)Ordered By: Dani Jaramillo on 01-17-2024 Urea nitrogen [Mass/Vol] 77 mg/dL 7-18 [facility] Thin prep Papanicolaou smear with manual screeningOrdered By: Dani Jaramillo on 01-17-2024 Thin prep Papanicolaou smear with manual screening 1 5-15 [facility] BRCon 01-16-2024 RC Normal Neg [facility] Comment on above: Result Comment: [id number] RC TRANSFUSED 01/16/24 1841 Performed By: #### L 500.4100, L100.0100, L501.9520, L501.9985, L500.4050, L506.1000 #### [facility] [address] [place], [address] Basic Metabolic Profile (BMP )on 01-16-2024 BUN/CRE 27.6 RATIO High 10-20 [facility] Comment on above: Performed By: #### L 500.2500 #### [facility] [address] [place], [address] CA,Total 7.8 mg/dL Low 8.5-10.1 [facility] Comment on above: Performed By: #### L 500.2500 #### [facility] [address] [place], [address] Chloride [Moles/Vol] 111 mmol/L High 98-107 [facility] Comment on above: Performed By: #### L 500.2500 #### [facility] [address] [place], [address] CO2 [Moles/Vol] 28.0 mmol/L Normal 21.0-32.0 [facility] Comment on above: Performed By: #### L 500.2500 #### [facility] [address] [place], [address] Creatinine [Mass/Vol] 2.90 mg/dL High 0.55-1.02 [facility] Comment on above: Result Comment: The validity of the calculated GFR GFRAA in patients over 70 years has not been determined. Clinical correlation is essential. Performed By: #### L 500.2500 #### [facility] [address] [place], [address] ECRCL 13.99 ml/min Normal [facility] Comment on above: Performed By: #### L 500.2500 #### [facility] [address] [place], [address] EST GFR - AA 20 mL/min Low >60 [facility] Comment on above: Result Comment: Afri can Vincentian GFR Calc Performed By: #### L 500.2500 #### [facility] [address] [place], [address] GAP 2 Low 5-15 [facility] Comment on above: Performed By: #### L 500.2500 #### [facility] [address], [address] GFR/1.73 sq M.predicted among non-blacks MDRD (S/P/Bld) [Vol rate/Area] 17 mL/min/{1.73_m2} Low >60 [facility] Comment on above: Result Comment: Non- GFR Calc Performed By: #### L 500.2500 #### [facility] [address] [place], [address] Glucose [Mass/Vol] 118 mg/dL High 74-106 [facility] Comment on above: Result Comment: Fast ing Glucose result from 100 to 125 mg/dL suggests IMPAIRED HOMEOSTASIS per A.D.A. criteria. Performed By: #### L 500.2500 #### [facility] [address] [place], [address] Potassium [Moles/Vol] 5.1 mmol/L Normal 3.5-5.1 [facility] Comment on above: Performed By: #### L 500.2500 #### [facility] [address], [address] Sodium [Moles/Vol] 141 mmol/L Normal 136-145 [facility] Comment on above: Performed By: #### L 500.2500 #### [facility] [address] [place], [address] Urea nitrogen [Mass/Vol] 80 mg/dL High 7-18 [facility] Comment on above: Performed By: #### L 500.2500 #### [facility] [address] [place], [address] HH, Hemoglobin AND Hematocri ton 01-16-2024 Hematocrit (Bld) [Volume fraction] 22.3 % Low 37-47 [facility] Comment on above: Performed By: #### L 100.0600 #### [facility] [address] [place], [place], [address] Hemoglobin (Bld) [Mass/Vol] 7.0 g/dL Low 12.0-15.0 [facility] Comment on above: Performed By: #### L 100.0600 #### [facility] [address] [place], [address] Type AND Screenon 01-16-2024 Ab SCREEN GEL Negative Normal [facility] Comment on above: Order Comment: CMV N EG? NNumber of units to transfuse: 1Is the EBL >/= 1000ml in adults or >/= 12ml/kg in children?YReason for Ordering Blood: AcuteAre the blood/blood products to be transfused? YIs the patient having/had surgery? YWhen [id number] HIP Performed By: #### L 500.4100, L100.0100, L501.9520, L501.9985, L500.4050, L506.1000 #### [facility] [address] [place], [address] ABO and Rh group Nom (Bld) Blood group B Rh(D) positive Normal [facility] Comment on above: Order Comment: CMV N EG? NNumber of units to transfuse: 1Is the EBL >/= 1000ml in adults or >/= 12ml/kg in children?YReason for Ordering Blood: AcuteAre the blood/blood products to be transfused? YIs the patient having/had surgery? YWhen [id number] HIP Performed By: #### L 500.4100, L100.0100, L501.9520, L501.9985, L500.4050, L506.1000 #### [facility] [address] [place], [place], [address] Basic Metabolic Profile (BMP )on 01-15-2024 BUN/CRE 16.0 RATIO Normal 10-20 [facility] Comment on above: Performed By: #### L 500.4100, L100.0100, L501.9520, L501.9985, L500.4050, L506.1000 #### [facility] [address] [place], [address] CA,Total 8.0 mg/dL Low 8.5-10.1 [facility] Comment on above: Performed By: #### L 500.4100, L100.0100, L501.9520, L501.9985, L500.4050, L506.1000 #### [facility] [address] [place], [address] Chloride [Moles/Vol] 106 mmol/L Normal 98-107 [facility] Comment on above: Performed By: #### L 500.4100, L100.0100, L501.9520, L501.9985, L500.4050, L506.1000 #### [facility] [address] [place], [address] CO2 [Moles/Vol] 29.0 mmol/L Normal 21.0-32.0 [facility] Comment on above: Performed By: #### L 500.4100, L100.0100, L501.9520, L501.9985, L500.4050, L506.1000 #### [facility] [address] [place], [address] Creatinine [Mass/Vol] 4.31 mg/dL High 0.55-1.02 [facility] Comment on above: Result Comment: The validity of the calculated GFR GFRAA in patients over 70 years has not been determined. Clinical correlation is essential. Performed By: #### L 500.4100, L100.0100, L501.9520, L501.9985, L500.4050, L506.1000 #### [facility] [address] [place], [address] ECRCL 9.41 ml/min Normal [facility] Comment on above: Performed By: #### L 500.4100, L100.0100, L501.9520, L501.9985, L500.4050, L506.1000 #### [facility] [address] [place], [address] EST GFR - AA 13 mL/min Low >60 [facility] Comment on above: Result Comment: Afri can Vincentian GFR Calc Performed By: #### L 500.4100, L100.0100, L501.9520, L501.9985, L500.4050, L506.1000 #### [facility] [address] [place], [address] GAP 6 Normal 5-15 [facility] Comment on above: Performed By: #### L 500.4100, L100.0100, L501.9520, L501.9985, L500.4050, L506.1000 #### [facility] [address] [place], [address] GFR/1.73 sq M.predicted among non-blacks MDRD (S/P/Bld) [Vol rate/Area] 10 mL/min/{1.73_m2} Low >60 [facility] Comment on above: Result Comment: Non- GFR Calc Performed By: #### L 500.4100, L100.0100, L501.9520, L501.9985, L500.4050, L506.1000 #### [facility] [address] [place], [address] Glucose [Mass/Vol] 158 mg/dL High 74-106 [facility] Comment on above: Result Comment: Fast ing Glucose result greater than or equal to 126 mg/dL suggests DIABETES MELLITUS per A.D.A. criteria. Performed By: #### L 500.4100, L100.0100, L501.9520, L501.9985, L500.4050, L506.1000 #### [facility] [address] [place], [address] Potassium [Moles/Vol] 5.2 mmol/L High 3.5-5.1 [facility] Comment on above: Performed By: #### L 500.4100, L100.0100, L501.9520, L501.9985, L500.4050, L506.1000 #### [facility] [address] [place], [address] Sodium [Moles/Vol] 141 mmol/L Normal 136-145 [facility] Comment on above: Performed By: #### L 500.4100, L100.0100, L501.9520, L501.9985, L500.4050, L506.1000 #### [facility] [address] [place], [address] Urea nitrogen [Mass/Vol] 69 mg/dL High 7-18 [facility] Comment on above: Performed By: #### L 500.4100, L100.0100, L501.9520, L501.9985, L500.4050, L506.1000 #### [facility] [address] [place], [address] CBC W/Diff, Automatedon - Absolute Neut Normal 2.0-7.7 [facility] Comment on above: Order Comment: REQUE STED REDRAW OF SPECIMEN. Result Comment: UNAB LE TO GET. FLOOR PUT IN CANCELATION Performed By: #### L 500.4100, L100.0100, L501.9520, L501.9985, L500.4050, L506.1000 #### [facility] [address] [place], [address] HCT Normal 37-47 [facility] Comment on above: Order Comment: REQUE STED REDRAW OF SPECIMEN. Result Comment: UNAB LE TO GET. FLOOR PUT IN CANCELATION Performed By: #### L 500.4100, L100.0100, L501.9520, L501.9985, L500.4050, L506.1000 #### [facility] [address] [place], [address] HGB Normal 12.0-15.0 [facility] Comment on above: Order Comment: REQUE STED REDRAW OF SPECIMEN. Result Comment: UNAB LE TO GET. FLOOR PUT IN CANCELATION Performed By: #### L 500.4100, L100.0100, L501.9520, L501.9985, L500.4050, L506.1000 #### [facility] [address] [place], [address] MCH Normal 27.0-32.0 [facility] Comment on above: Order Comment: REQUE STED REDRAW OF SPECIMEN. Result Comment: UNAB LE TO GET. FLOOR PUT IN CANCELATION Performed By: #### L 500.4100, L100.0100, L501.9520, L501.9985, L500.4050, L506.1000 #### [facility] [address] [place], [address] MCHC Normal 32-36 [facility] Comment on above: Order Comment: REQUE STED REDRAW OF SPECIMEN. Result Comment: UNAB LE TO GET. FLOOR PUT IN CANCELATION Performed By: #### L 500.4100, L100.0100, L501.9520, L501.9985, L500.4050, L506.1000 #### [facility] [address] [place], [address] MCV Normal 81-99 [facility] Comment on above: Order Comment: REQUE STED REDRAW OF SPECIMEN. Result Comment: UNAB LE TO GET. FLOOR PUT IN CANCELATION Performed By: #### L 500.4100, L100.0100, L501.9520, L501.9985, L500.4050, L506.1000 #### [facility] [address] [place], [address] NEUT% Normal 47-70 [facility] Comment on above: Order Comment: REQUE STED REDRAW OF SPECIMEN. Result Comment: UNAB LE TO GET. FLOOR PUT IN CANCELATION Performed By: #### L 500.4100, L100.0100, L501.9520, L501.9985, L500.4050, L506.1000 #### [facility] [address] [place], [address] PLT Normal 150-450 [facility] Comment on above: Order Comment: REQUE STED REDRAW OF SPECIMEN. Result Comment: UNAB LE TO GET. FLOOR PUT IN CANCELATION Performed By: #### L 500.4100, L100.0100, L501.9520, L501.9985, L500.4050, L506.1000 #### [facility] [address] [facility] [address] RBC Normal 4.2-5.4 [facility] Comment on above: Order Comment: REQUE STED REDRAW OF SPECIMEN. Result Comment: UNAB LE TO GET. FLOOR PUT IN CANCELATION Performed By: #### L 500.4100, L100.0100, L501.9520, L501.9985, L500.4050, L506.1000 #### [facility] [address] [place], [address] RDW CV Normal 11.6-14.6 [facility] Comment on above: Order Comment: REQUE STED REDRAW OF SPECIMEN. Result Comment: UNAB LE TO GET. FLOOR PUT IN CANCELATION Performed By: #### L 500.4100, L100.0100, L501.9520, L501.9985, L500.4050, L506.1000 #### [facility] [address] [place], [address] RDW SD Normal 35.1-43.9 [facility] Comment on above: Order Comment: REQUE STED REDRAW OF SPECIMEN. Result Comment: UNAB LE TO GET. FLOOR PUT IN CANCELATION Performed By: #### L 500.4100, L100.0100, L501.9520, L501.9985, L500.4050, L506.1000 #### [facility] [address], [address] WBC Normal 4.4-11.0 [facility] Comment on above: Order Comment: REQUE STED REDRAW OF SPECIMEN. Result Comment: UNAB LE TO GET. FLOOR PUT IN CANCELATION Performed By: #### L 500.4100, L100.0100, L501.9520, L501.9985, L500.4050, L506.1000 #### [facility] [address], [address] Kidney and Bladderon 024 Kidney and Bladder [facility] [address] [place] [address] Kidney and Bladder MR#: [id number] Acct: [id number] Name: JACKELYN BRADSHAW Rep #: [id number] : 1940 F 83 From: Solomon Pichardo MD PCP: Dr. Yoav Chakraborty MD Status: ADM IN Study: Kidney and Bladder Date of Exam: 01/15/24 Exam# [id number] Ordering Dr: Dani Jaramillo DO [id number] STUDY: RENAL ULTRASOUND - COMPLETE REASON FOR [...] Yoav Chakraborty MD; Dr. Dani Jaramillo DO [employer]: Signed Normal [facility] Urine Cultureon 01-15-2024 URC Staphylococcus silver ri [place] Count <1000 Staphylococcus warneri: REACTION cefOXitin Susc Islt NEG Clindamycin.induced Susc Islt POS Gentamicin Islt TRACI <=0.5 S Nitrofurantoin Islt TRACI <=16 S Oxacillin Susc Islt <=0.25 S Tetracycline Islt TRACI <=1 S Vancomycin Islt TRACI <=0.5 S Normal [facility] Comment on above: Performed By: #### L 500.4100, L100.0100, L501.9520, L501.9985, L500.4050, L506.1000 #### [facility] [place], [address] Absolute lymphocyte countOrd ered By: Dani Jaramillo on 01-14-2024 Lymphocytes Auto (Unsp spec) [#/Vol] 1.45 10*3/uL 0.83-4.51 [facility] Automated lymphocyte count a s percentage of total leukocytesOrdered By: Dani Jaramillo on 01-14-2024 Lymphocytes/100 WBC Auto (Unsp spec) 8.0 % 19-41 [facility] Basic Metabolic Profile (BMP )on 01-14-2024 BUN/CRE 12.6 RATIO Normal 10-20 [facility] Comment on above: Performed By: #### L 500.4100, L100.0100, L501.9520, L501.9985, L500.4050, L506.1000 #### [facility] [address] [place], [address] CA,Total 8.5 mg/dL Normal 8.5-10.1 [facility] Comment on above: Performed By: #### L 500.4100, L100.0100, L501.9520, L501.9985, L500.4050, L506.1000 #### [facility] [address] [place], [address] Chloride [Moles/Vol] 107 mmol/L Normal 98-107 [facility] Comment on above: Performed By: #### L 500.4100, L100.0100, L501.9520, L501.9985, L500.4050, L506.1000 #### [facility] [address] [place], [address] CO2 [Moles/Vol] 28.0 mmol/L Normal 21.0-32.0 [facility] Comment on above: Performed By: #### L 500.4100, L100.0100, L501.9520, L501.9985, L500.4050, L506.1000 #### [facility] [address] [place], [address] Creatinine [Mass/Vol] 4.30 mg/dL High 0.55-1.02 [facility] Comment on above: Result Comment: The validity of the calculated GFR GFRAA in patients over 70 years has not been determined. Clinical correlation is essential. Performed By: #### L 500.4100, L100.0100, L501.9520, L501.9985, L500.4050, L506.1000 #### [facility] [address] [place], [address] ECRCL 9.43 ml/min Normal [facility] Comment on above: Performed By: #### L 500.4100, L100.0100, L501.9520, L501.9985, L500.4050, L506.1000 #### [facility] [address] [place], [address] EST GFR - AA 13 mL/min Low >60 [facility] Comment on above: Result Comment: Afri can Vincentian GFR Calc Performed By: #### L 500.4100, L100.0100, L501.9520, L501.9985, L500.4050, L506.1000 #### [facility] [address] [place], [address] GAP 5 Normal 5-15 [facility] Comment on above: Performed By: #### L 500.4100, L100.0100, L501.9520, L501.9985, L500.4050, L506.1000 #### [facility] [address] [place], [address] GFR/1.73 sq M.predicted among non-blacks MDRD (S/P/Bld) [Vol rate/Area] 10 mL/min/{1.73_m2} Low >60 [facility] Comment on above: Result Comment: Non- GFR Calc Performed By: #### L 500.4100, L100.0100, L501.9520, L501.9985, L500.4050, L506.1000 #### [facility] [address] [place], [address] Glucose [Mass/Vol] 157 mg/dL High 74-106 [facility] Comment on above: Result Comment: Fast ing Glucose result greater than or equal to 126 mg/dL suggests DIABETES MELLITUS per A.D.A. criteria. Performed By: #### L 500.4100, L100.0100, L501.9520, L501.9985, L500.4050, L506.1000 #### [facility] [address] [place], [address] Potassium [Moles/Vol] 5.6 mmol/L High 3.5-5.1 [facility] Comment on above: Performed By: #### L 500.4100, L100.0100, L501.9520, L501.9985, L500.4050, L506.1000 #### [facility] [address] [place], [address] Sodium [Moles/Vol] 140 mmol/L Normal 136-145 [facility] Comment on above: Performed By: #### L 500.4100, L100.0100, L501.9520, L501.9985, L500.4050, L506.1000 #### [facility] [address] [place], [address] Urea nitrogen [Mass/Vol] 54 mg/dL High 7-18 [facility] Comment on above: Performed By: #### L 500.4100, L100.0100, L501.9520, L501.9985, L500.4050, L506.1000 #### [facility] [address] [place], [address] Basophil percentageOrdered B y: Dani Jaramillo on 01-14-2024 Basophils/100 WBC (Bld) 0.2 % 0-1 [facility] Eosinophils/100 WBC (Bld) 0.4 % 0-5 [facility] Monocytes/100 WBC (Bld) 7.6 % 0-10 [facility] Neutrophils (Bld) [#/Vol] 15.1 10*3/uL 2.0-7.7 [facility] Neutrophils/100 WBC (Bld) 83.2 % 47-70 [facility] WBC (Bld) [#/Vol] 18.2 10*3/uL 4.4-11.0 [facility] CBC W/Diff, Automatedon 01-03-2023 Absolute Lymph 1.45 X10 3/uL Normal 0.83-4.51 [facility] Comment on above: Performed By: #### L 500.2500, L100.0100 #### [facility] [address] [place], [address] Absolute Neut 15.1 X10 3/uL High 2.0-7.7 [facility] Comment on above: Performed By: #### L 500.2500, L100.0100 #### [facility] [address] [place], [address] Basophils/100 WBC (Bld) 0.2 % Normal 0-1 [facility] Comment on above: Performed By: #### L 500.2500, L100.0100 #### [facility] [address] [place], [address] Eosinophils/100 WBC (Bld) 0.4 % Normal 0-5 [facility] Comment on above: Performed By: #### L 500.2500, L100.0100 #### [facility] [address] [place], [address] Erythrocyte distribution width (RBC) [Ratio] 13.5 % Normal 11.6-14.6 [facility] Comment on above: Performed By: #### L 500.2500, L100.0100 #### [facility] [address] [place], [address] Hematocrit (Bld) [Volume fraction] 27.9 % Low 37-47 [facility] Comment on above: Performed By: #### L 500.2500, L100.0100 #### [facility] [address], [address] Hemoglobin (Bld) [Mass/Vol] 8.6 g/dL Low 12.0-15.0 [facility] Comment on above: Performed By: #### L 500.2500, L100.0100 #### [facility] [address] [place], [address] IG% 0.600 Normal 0.0-0.9 [facility] Comment on above: Result Comment: IG% - Immature Granulocytes (promyelocytes, myelocytes and metamyelocytes) > 1% indicates that a LEFT SHIFT is Present. Performed By: #### L 500.2500, L100.0100 #### [facility] [address] [place], [address] Lymphocytes/100 WBC (Bld) 8.0 % Low 19-41 [facility] Comment on above: Performed By: #### L 500.2500, L100.0100 #### [facility] [address] [place], [address] MCH (RBC) [Entitic mass] 31.0 pg Normal 27.0-32.0 [facility] Comment on above: Performed By: #### L 500.2500, L100.0100 #### [facility] [address] [place], [address] MCHC (RBC) [Mass/Vol] 30.8 g/dL Low 32-36 [facility] Comment on above: Performed By: #### L 500.2500, L100.0100 #### [facility] [address] [place], [address] MCV (RBC) [Entitic vol] 100.7 fL High 81-99 [facility] Comment on above: Performed By: #### L 500.2500, L100.0100 #### [facility] [address] [place], [address] Monocytes/100 WBC (Bld) 7.6 % Normal 0-10 [facility] Comment on above: Performed By: #### L 500.2500, L100.0100 #### [facility] [address] [place], [address] Neutrophils/100 WBC (Bld) 83.2 % High 47-70 [facility] Comment on above: Performed By: #### L 500.2500, L100.0100 #### [facility] [address] [place], [address] Nucleated RBC (Bld) [#/Vol] 0 10*3/uL Normal 0-5 [facility] Comment on above: Performed By: #### L 500.2500, L100.0100 #### [facility] [address] [place], [address] Platelet mean volume (Bld) [Entitic vol] 10.7 fL Normal 6.2-12.0 [facility] Comment on above: Performed By: #### L 500.2500, L100.0100 #### [facility] [address] [place], [address] Platelets (Bld) [#/Vol] 197 10*3/uL Normal 150-450 [facility] Comment on above: Performed By: #### L 500.2500, L100.0100 #### [facility] [address] [place], [address] RBC (Bld) [#/Vol] 2.77 10*6/uL Low 4.2-5.4 [facility] Comment on above: Performed By: #### L 500.2500, L100.0100 #### [facility] [address] [place], [address] RDW SD 50.4 fl High 35.1-43.9 [facility] Comment on above: Performed By: #### L 500.2500, L100.0100 #### [facility] [address] [place], [address] WBC (Bld) [#/Vol] 18.2 10*3/uL High 4.4-11.0 [facility] Comment on above: Performed By: #### L 500.2500, L100.0100 #### [facility] [address] [place], [address] Chest 1 View (Portable)on Chest 1 View (Portable) [facility] Imaging Services [address] [place] [place] [address] Chest 1 View (Portable) MR#: [id number] Acct: [id number] Name: JACKELYN BRADSHAW Rep #: [id number] : 1940 F 83 From: Jimi Rubin MD PCP: Dr. Yoav Chakraborty MD Status: ADM IN Study: Chest 1 View (Portable) Date of Exam: 01/14/24 Exam# [id number] Ordering Dr: Dani Jaramillo DO [id number] EXAM: XR CHEST, 1 VIEW CLINICAL INDICATION: [...] Yoav Chakraborty MD; Dr. Dani Jaramillo DO [employer] Balancing Technician: Signed Normal [facility] Determination of erythrocyte mean corpuscular volume (MCV)Ordered By: Dani Jaramillo on 01-14-2024 MCV (RBC) [Entitic vol] 100.7 fL 81-99 [facility] Erythrocyte distribution wid th ratioOrdered By: Dani Jaramillo on 01-14-2024 Erythrocyte distribution width (RBC) [Ratio] 13.5 % 11.6-14.6 [facility] Erythrocyte distribution wid th standard deviationOrdered By: Dani Jaramillo on 01-14-2024 Erythrocyte distribution width (RBC) [Entitic vol] 50.4 fL 35.1-43.9 [facility] Immature granulocytes/100 WB C Auto (Bld)Ordered By: Dani Jaramillo on 01-14-2024 Immature granulocytes/100 WBC (Bld) 0.600 % 0.0-0.9 [facility] Comment on above: IG% - Immature Granu locytes (promyelocytes, myelocytes and metamyelocytes) > 1% indicates that a LEFT SHIFT is Present. Laboratory - Hematology and Cell countsOrdered By: Dani Jaramillo on 01-14-2024 MCH (RBC) [Entitic mass] 31.0 pg 27.0-32.0 [facility] MCHC (RBC) [Mass/Vol] 30.8 g/dL 32-36 [facility] Nucleated RBC/100 WBC (Bld) [Ratio] 0 % 0-5 [facility] Platelet mean volume (Bld) [Entitic vol] 10.7 fL 6.2-12.0 [facility] Platelets (Bld) [#/Vol] 197 10*3/uL 150-450 [facility] RBC Auto (Bld) [#/Vol]Ordere d By: Dani Jaramillo on 01-14-2024 RBC (Bld) [#/Vol] 2.77 10*6/uL 4.2-5.4 [facility] Basic Metabolic Profile (BMP )on 01-13-2024 BUN/CRE 13.8 RATIO Normal 10-20 [facility] Comment on above: Performed By: #### L 500.4100, L100.0100, L501.9520, L501.9985, L500.4050, L506.1000 #### [facility] [address] [place], [address] CA,Total 9.3 mg/dL Normal 8.5-10.1 [facility] Comment on above: Performed By: #### L 500.4100, L100.0100, L501.9520, L501.9985, L500.4050, L506.1000 #### [facility] [address] [place], [address] Chloride [Moles/Vol] 106 mmol/L Normal 98-107 [facility] Comment on above: Performed By: #### L 500.4100, L100.0100, L501.9520, L501.9985, L500.4050, L506.1000 #### [facility] [address] [place], [address] CO2 [Moles/Vol] 27.0 mmol/L Normal 21.0-32.0 [facility] Comment on above: Performed By: #### L 500.4100, L100.0100, L501.9520, L501.9985, L500.4050, L506.1000 #### [facility] [address] [place], [address] Creatinine [Mass/Vol] 2.61 mg/dL High 0.55-1.02 [facility] Comment on above: Result Comment: The validity of the calculated GFR GFRAA in patients over 70 years has not been determined. Clinical correlation is essential. Performed By: #### L 500.4100, L100.0100, L501.9520, L501.9985, L500.4050, L506.1000 #### [facility] [address] [place], [address] ECRCL 15.54 ml/min Normal [facility] Comment on above: Performed By: #### L 500.4100, L100.0100, L501.9520, L501.9985, L500.4050, L506.1000 #### [facility] [address] [place], [address] EST GFR - AA 23 mL/min Low >60 [facility] Comment on above: Result Comment: Afri can Vincentian GFR Calc Performed By: #### L 500.4100, L100.0100, L501.9520, L501.9985, L500.4050, L506.1000 #### [facility] [address] [place], [address] GAP 6 Normal 5-15 [facility] Comment on above: Performed By: #### L 500.4100, L100.0100, L501.9520, L501.9985, L500.4050, L506.1000 #### [facility] [address] [place], [address] GFR/1.73 sq M.predicted among non-blacks MDRD (S/P/Bld) [Vol rate/Area] 19 mL/min/{1.73_m2} Low >60 [facility] Comment on above: Result Comment: Non- GFR Calc Performed By: #### L 500.4100, L100.0100, L501.9520, L501.9985, L500.4050, L506.1000 #### [facility] [address] [place], [address] Glucose [Mass/Vol] 178 mg/dL High 74-106 [facility] Comment on above: Result Comment: Fast ing Glucose result greater than or equal to 126 mg/dL suggests DIABETES MELLITUS per A.D.A. criteria. Performed By: #### L 500.4100, L100.0100, L501.9520, L501.9985, L500.4050, L506.1000 #### [facility] [address] [place], [address] Potassium [Moles/Vol] 5.2 mmol/L High 3.5-5.1 [facility] Comment on above: Performed By: #### L 500.4100, L100.0100, L501.9520, L501.9985, L500.4050, L506.1000 #### [facility] [address] [place], [address] Sodium [Moles/Vol] 139 mmol/L Normal 136-145 [facility] Comment on above: Performed By: #### L 500.4100, L100.0100, L501.9520, L501.9985, L500.4050, L506.1000 #### [facility] [address] [place], [address] Urea nitrogen [Mass/Vol] 36 mg/dL High 7-18 [facility] Comment on above: Performed By: #### L 500.4100, L100.0100, L501.9520, L501.9985, L500.4050, L506.1000 #### [facility] [address] [place], [address] CBC W/Diff, Automatedon 01-03 0 Absolute Lymph 1.86 X10 3/uL Normal 0.83-4.51 [facility] Comment on above: Performed By: #### L 500.4100, L100.0100, L501.9520, L501.9985, L500.4050, L506.1000 #### [facility] [address] [place], [address] Absolute Neut 10.9 X10 3/uL High 2.0-7.7 [facility] Comment on above: Performed By: #### L 500.4100, L100.0100, L501.9520, L501.9985, L500.4050, L506.1000 #### [facility] [address] [place], [address] Basophils/100 WBC (Bld) 0.4 % Normal 0-1 [facility] Comment on above: Performed By: #### L 500.4100, L100.0100, L501.9520, L501.9985, L500.4050, L506.1000 #### [facility] [address] [place], [address] Eosinophils/100 WBC (Bld) 0.0 % Normal 0-5 [facility] Comment on above: Performed By: #### L 500.4100, L100.0100, L501.9520, L501.9985, L500.4050, L506.1000 #### [facility] [address] [place], [address] Erythrocyte distribution width (RBC) [Ratio] 13.5 % Normal 11.6-14.6 [facility] Comment on above: Performed By: #### L 500.4100, L100.0100, L501.9520, L501.9985, L500.4050, L506.1000 #### [facility] [address] [place], [address] Hematocrit (Bld) [Volume fraction] 34.1 % Low 37-47 [facility] Comment on above: Performed By: #### L 500.4100, L100.0100, L501.9520, L501.9985, L500.4050, L506.1000 #### [facility] [address] [place], [address] Hemoglobin (Bld) [Mass/Vol] 10.8 g/dL Low 12.0-15.0 [facility] Comment on above: Performed By: #### L 500.4100, L100.0100, L501.9520, L501.9985, L500.4050, L506.1000 #### [facility] [address] [place], [address] IG% 0.500 Normal 0.0-0.9 [facility] Comment on above: Result Comment: IG% - Immature Granulocytes (promyelocytes, myelocytes and metamyelocytes) > 1% indicates that a LEFT SHIFT is Present. Performed By: #### L 500.4100, L100.0100, L501.9520, L501.9985, L500.4050, L506.1000 #### [facility] [address] [place], [address] Lymphocytes/100 WBC (Bld) 13.3 % Low 19-41 [facility] Comment on above: Performed By: #### L 500.4100, L100.0100, L501.9520, L501.9985, L500.4050, L506.1000 #### [facility] [address] [place], [address] MCH (RBC) [Entitic mass] 31.2 pg Normal 27.0-32.0 [facility] Comment on above: Performed By: #### L 500.4100, L100.0100, L501.9520, L501.9985, L500.4050, L506.1000 #### [facility] [address] [place], [address] MCHC (RBC) [Mass/Vol] 31.7 g/dL Low 32-36 [facility] Comment on above: Performed By: #### L 500.4100, L100.0100, L501.9520, L501.9985, L500.4050, L506.1000 #### [facility] [address] [place], [address] MCV (RBC) [Entitic vol] 98.6 fL Normal 81-99 [facility] Comment on above: Performed By: #### L 500.4100, L100.0100, L501.9520, L501.9985, L500.4050, L506.1000 #### [facility] [address] [place], [address] Monocytes/100 WBC (Bld) 8.0 % Normal 0-10 [facility] Comment on above: Performed By: #### L 500.4100, L100.0100, L501.9520, L501.9985, L500.4050, L506.1000 #### [facility] [address] [place], [address] Neutrophils/100 WBC (Bld) 77.8 % High 47-70 [facility] Comment on above: Performed By: #### L 500.4100, L100.0100, L501.9520, L501.9985, L500.4050, L506.1000 #### [facility] [address] [place], [address] Nucleated RBC (Bld) [#/Vol] 0 10*3/uL Normal 0-5 [facility] Comment on above: Performed By: #### L 500.4100, L100.0100, L501.9520, L501.9985, L500.4050, L506.1000 #### [facility] [address] [place], [address] Platelet mean volume (Bld) [Entitic vol] 10.3 fL Normal 6.2-12.0 [facility] Comment on above: Performed By: #### L 500.4100, L100.0100, L501.9520, L501.9985, L500.4050, L506.1000 #### [facility] [address] [place], [address] Platelets (Bld) [#/Vol] 270 10*3/uL Normal 150-450 [facility] Comment on above: Performed By: #### L 500.4100, L100.0100, L501.9520, L501.9985, L500.4050, L506.1000 #### [facility] [address] [place], [address] RBC (Bld) [#/Vol] 3.46 10*6/uL Low 4.2-5.4 [facility] Comment on above: Performed By: #### L 500.4100, L100.0100, L501.9520, L501.9985, L500.4050, L506.1000 #### [facility] [address] [place], [address] RDW SD 48.6 fl High 35.1-43.9 [facility] Comment on above: Performed By: #### L 500.4100, L100.0100, L501.9520, L501.9985, L500.4050, L506.1000 #### [facility] [address] [place], [address] WBC (Bld) [#/Vol] 14.0 10*3/uL High 4.4-11.0 [facility] Comment on above: Performed By: #### L 500.4100, L100.0100, L501.9520, L501.9985, L500.4050, L506.1000 #### [facility] [address] [place], [address] HIP, UNI W/ Pelvis 2-3 Views on 01-13-2024 HIP, UNI W/ Pelvis 2-3 Views [facility] Imaging Services [address] [place] [address] HIP, UNI W/ Pelvis 2-3 Views MR#: [id number] Acct: [id number] Name: JACKELYN BRADSHWA Rep #: [id number] : 1940 83 From: Arjun Cade MD PCP: Dr. Yoav Chakraborty MD Status: ADM IN Study: HIP, UNI W/ Pelvis 2-3 Views Date of Exam: 07/28 Exam# [id number] Ordering Dr: David Morgan MD [id number] HISTORY: IM rodding COMPARISON: January 12, 2024 [...] Yoav Chakraborty MD; Dr. David Morgan MD Air And Hydronic Balancing Technician: Signed Normal [facility] Hip Min 2 Views (Portable)on 01-13-2024 Hip Min 2 Views (Portable) [facility] Imaging Services [address] [place] [address] Hip Min 2 Views (Portable) MR#: [id number] Acct: [id number] Name: JACKELYN BRADSHAW Rep #: [id number] : 1940 F 83 From: Arjun Cade MD PCP: Dr. Yoav Chakraborty MD Status: ADM IN Study: Hip Min 2 Views (Portable) Date of Exam: 01/12 Exam# [id number] Ordering Dr: David Morgan MD [id number] INDICATION: Post Op -- AP both hips [...] 18:59 EDT Reading Location ID and State: [facility] / [place] Tel , Service support , CC: Dr. Yoav Chakraborty MD; Dr. David Morgan MD Air And Hydronic Balancing Technician: Signed Normal [facility] Operative Reporton Operative Report [facility] Medical Records Department [address] [place] [address] Operative Report 01/13/24 1736 MR#: [id number] Acct: [id number] Name: JACKELYN BRADSHAW Rep #: [id number] : 1940 83 From: David Morgan MD PCP: Dr. Yoav Chakraborty MD Status:ADM IN [facility] Operation Date of Procedure: 01/13/24 Pre-Operative Diagnosis: Left intertrochanteric hip fracture Post-Operative Diagnosis: Left intertrochanteric hip fracture Surgery/Procedure Performed:: Left hip cephalomedullary nail Description of Surgical Findings:: Stable reduction Surgeon: David Morgan continuity editor: Cely Christensen Type of Anesthesia: General Anesthesiologist: [...] The nail was then attached to the pail tester and inserted into the intramedullary canal. The [...] portion of the nail and a perfect s[place]ov[place] technique was used to locate the distal [...] Hose VTE Pharm Prophylaxis ordered?: Yes 01/13/24 9810 Cosigner Signature (if applicable): CC: Dr. Yoav Chakraborty MD; Dr. Howard Fragoso MD; Dr. David Morgan MD Signed [facility] Type AND Screenon 01-13-2024 ABO and Rh group Nom (Bld) Blood group B Rh(D) positive Normal [facility] Comment on above: Order Comment: S Performed By: #### L 500.4100, L100.0100, L501.9520, L501.9985, L500.4050, L506.1000 #### [facility] [address] [facility] [place], [address] 12 Lead EKGon 01-12-2024 12 Lead EKG [facility] Cardiovascular Services [address] [place] [address] 12 Lead EKG 01/12/24 1429 MR#: [id number] Acct: [id number] Name: JACKELYN BRADSHAW Rep #: [id number] : 1940 83 From: Ted Louis MD [...] normal variant ( R in aVL , [place] product ) Abnormal ECG Confirmed by Ted Louis ([id number]), industrial editor ROBERT STAPLES ([id number]) on 01/13/2024 10:35:20 AM Referred By: Confirmed By:Ted Louis 01/13/24 1035 Date Ted Louis MD CC: Dr. Chacho Epperson, DO; Dr. Yoav Chakraborty MD; Dr. Dani Jaramillo DO Signed Normal [facility] Absolute lymphocyte countOrd ered By: Chacho Epperson on 01-12-2024 Lymphocytes Auto (Unsp spec) [#/Vol] 1.52 10*3/uL 0.83-4.51 [facility] Automated lymphocyte count a s percentage of total leukocytesOrdered By: Chacho Epperson on 01-12-2024 Lymphocytes/100 WBC Auto (Unsp spec) 8.4 % 19-41 [facility] Basic Metabolic Profile (BMP )on 01-12-2024 BUN/CRE 17.4 RATIO Normal 10-20 [facility] Comment on above: Performed By: #### L 500.4100, L100.0100, L501.9520, L501.9985, L500.4050, L506.1000 #### [facility] [address] [place], [address] CA,Total 9.0 mg/dL Normal 8.5-10.1 [facility] Comment on above: Performed By: #### L 500.4100, L100.0100, L501.9520, L501.9985, L500.4050, L506.1000 #### [facility] [address] [place], [address] Chloride [Moles/Vol] 105 mmol/L Normal 98-107 [facility] Comment on above: Performed By: #### L 500.4100, L100.0100, L501.9520, L501.9985, L500.4050, L506.1000 #### [facility] [address] [place], [address] CO2 [Moles/Vol] 29.0 mmol/L Normal 21.0-32.0 [facility] Comment on above: Performed By: #### L 500.4100, L100.0100, L501.9520, L501.9985, L500.4050, L506.1000 #### [facility] [address] [place], [address] Creatinine [Mass/Vol] 1.38 mg/dL High 0.55-1.02 [facility] Comment on above: Result Comment: The validity of the calculated GFR GFRAA in patients over 70 years has not been determined. Clinical correlation is essential. Performed By: #### L 500.4100, L100.0100, L501.9520, L501.9985, L500.4050, L506.1000 #### [facility] [address] [place], [address] ECRCL 30.01 ml/min Normal [facility] Comment on above: Performed By: #### L 500.4100, L100.0100, L501.9520, L501.9985, L500.4050, L506.1000 #### [facility] [address] [place], [address] EST GFR - AA 47 mL/min Low >60 [facility] Comment on above: Result Comment: Afri can Vincentian GFR Calc Performed By: #### L 500.4100, L100.0100, L501.9520, L501.9985, L500.4050, L506.1000 #### [facility] [address] [place], [address] GAP 5 Normal 5-15 [facility] Comment on above: Performed By: #### L 500.4100, L100.0100, L501.9520, L501.9985, L500.4050, L506.1000 #### [facility] [address] [place], [address] GFR/1.73 sq M.predicted among non-blacks MDRD (S/P/Bld) [Vol rate/Area] 39 mL/min/{1.73_m2} Low >60 [facility] Comment on above: Result Comment: Non- GFR Calc Performed By: #### L 500.4100, L100.0100, L501.9520, L501.9985, L500.4050, L506.1000 #### [facility] [address] [place], [address] Glucose [Mass/Vol] 168 mg/dL High 74-106 [facility] Comment on above: Result Comment: Fast ing Glucose result greater than or equal to 126 mg/dL suggests DIABETES MELLITUS per A.D.A. criteria. Performed By: #### L 500.4100, L100.0100, L501.9520, L501.9985, L500.4050, L506.1000 #### [facility] [address] [place], [address] Potassium [Moles/Vol] 4.4 mmol/L Normal 3.5-5.1 [facility] Comment on above: Performed By: #### L 500.4100, L100.0100, L501.9520, L501.9985, L500.4050, L506.1000 #### [facility] [address] [place], [address] Sodium [Moles/Vol] 139 mmol/L Normal 136-145 [facility] Comment on above: Performed By: #### L 500.4100, L100.0100, L501.9520, L501.9985, L500.4050, L506.1000 #### [facility] [address] [place], [address] Urea nitrogen [Mass/Vol] 24 mg/dL High 7-18 [facility] Comment on above: Performed By: #### L 500.4100, L100.0100, L501.9520, L501.9955, L500.4050, L506.1000 #### [facility] [address] [place], [address] Basophil percentageOrdered B y: Chacho Zhou on 01-12-2024 Basophils/100 WBC (Bld) 0.3 % 0-1 [facility] Chloride [Moles/Vol] 105 mmol/L 98-107 [facility] Eosinophils/100 WBC (Bld) 0.1 % 0-5 [facility] Glucose [Mass/Vol] 168 mg/dL 74-106 [facility] Comment on above: Fasting Glucose resu lt greater than or equal to 126 mg/dL suggests DIABETES MELLITUS per A.D.A. criteria. Hemoglobin (Bld) [Mass/Vol] 12.9 g/dL 12.0-15.0 [facility] Monocytes/100 WBC (Bld) 2.6 % 0-10 [facility] Neutrophils (Bld) [#/Vol] 15.9 10*3/uL 2.0-7.7 [facility] Neutrophils/100 WBC (Bld) 88.1 % 47-70 [facility] Potassium [Moles/Vol] 4.4 mmol/L 3.5-5.1 [facility] Sodium [Moles/Vol] 139 mmol/L 136-145 [facility] WBC (Bld) [#/Vol] 18.0 10*3/uL 4.4-11.0 [facility] Basophil percentage 0-5 SEEN /hpf 0-5 [facility] Bilirubin Test strip Ql (U)O rdered By: Chacho Epperson on 01-12-2024 Bilirubin Ql (U) 1 mg/dL Negative [facility] Comment on above: COLOR OF URINE MAY A FFECT DIPSTICK RESULTS. Brain/Head without Contrasto n 01-12-2024 Brain/Head without Contrast [facility] Imaging Services [address] [place] [address] Brain/Head without Contrast MR#: [id number] Acct: [id number] Name: JACKELYN BRADSHAW Rep #: [id number] : 1940 F 83 From: Naga hussein MD PCP: Dr. Yoav Chakraborty MD Status: REG ER Study: Brain/Head without Contrast Date of Exam: 06/28 Exam# [id number] Ordering Dr: Chacho Epperson DO [id number] STUDY: CT BRAIN WITHOUT CONTRAST REASON FOR [...] Chacho Epperson DO; Dr. Yoav Chakraborty MD [employer] And Hyd[employer] Balancing Technician: Signed Normal [facility] CBC W/Diff, Automatedon Absolute Lymph 1.52 X10 3/uL Normal 0.83-4.51 [facility] Comment on above: Performed By: #### L 500.4100, L100.0100, L501.9520, L501.9985, L500.4050, L506.1000 #### [facility] [address] [place], [address] Absolute Neut 15.9 X10 3/uL High 2.0-7.7 [facility] Comment on above: Performed By: #### L 500.4100, L100.0100, L501.9520, L501.9985, L500.4050, L506.1000 #### [facility] [address] [place], [address] Basophils/100 WBC (Bld) 0.3 % Normal 0-1 [facility] Comment on above: Performed By: #### L 500.4100, L100.0100, L501.9520, L501.9985, L500.4050, L506.1000 #### [facility] [address] [place], [address] Eosinophils/100 WBC (Bld) 0.1 % Normal 0-5 [facility] Comment on above: Performed By: #### L 500.4100, L100.0100, L501.9520, L501.9985, L500.4050, L506.1000 #### [facility] [address] [place], [address] Erythrocyte distribution width (RBC) [Ratio] 13.1 % Normal 11.6-14.6 [facility] Comment on above: Performed By: #### L 500.4100, L100.0100, L501.9520, L501.9985, L500.4050, L506.1000 #### [facility] [address] [place], [address] Hematocrit (Bld) [Volume fraction] 40.7 % Normal 37-47 [facility] Comment on above: Performed By: #### L 500.4100, L100.0100, L501.9520, L501.9985, L500.4050, L506.1000 #### [facility] [address] [place], [address] Hemoglobin (Bld) [Mass/Vol] 12.9 g/dL Normal 12.0-15.0 [facility] Comment on above: Performed By: #### L 500.4100, L100.0100, L501.9520, L501.9985, L500.4050, L506.1000 #### [facility] [address] [facility] [place], [address] IG% 0.500 Normal 0.0-0.9 [facility] Comment on above: Result Comment: IG% - Immature Granulocytes (promyelocytes, myelocytes and metamyelocytes) > 1% indicates that a LEFT SHIFT is Present. Performed By: #### L 500.4100, L100.0100, L501.9520, L501.9985, L500.4050, L506.1000 #### [facility] [address] [facility] [place], [address] Lymphocytes/100 WBC (Bld) 8.4 % Low 19-41 [facility] Comment on above: Performed By: #### L 500.4100, L100.0100, L501.9520, L501.9985, L500.4050, L506.1000 #### [facility] [address] [place], [address] MCH (RBC) [Entitic mass] 31.1 pg Normal 27.0-32.0 [facility] Comment on above: Performed By: #### L 500.4100, L100.0100, L501.9520, L501.9985, L500.4050, L506.1000 #### [facility] [address] [facility] [place], [address] MCHC (RBC) [Mass/Vol] 31.7 g/dL Low 32-36 [facility] Comment on above: Performed By: #### L 500.4100, L100.0100, L501.9520, L501.9985, L500.4050, L506.1000 #### [facility] [address] [place], [address] MCV (RBC) [Entitic vol] 98.1 fL Normal 81-99 [facility] Comment on above: Performed By: #### L 500.4100, L100.0100, L501.9520, L501.9985, L500.4050, L506.1000 #### [facility] [address] [place], [address] Monocytes/100 WBC (Bld) 2.6 % Normal 0-10 [facility] Comment on above: Performed By: #### L 500.4100, L100.0100, L501.9520, L501.9985, L500.4050, L506.1000 #### [facility] [address] [place], [address] Neutrophils/100 WBC (Bld) 88.1 % High 47-70 [facility] Comment on above: Performed By: #### L 500.4100, L100.0100, L501.9520, L501.9985, L500.4050, L506.1000 #### [facility] [address] [place], [address] Nucleated RBC (Bld) [#/Vol] 0 10*3/uL Normal 0-5 [facility] Comment on above: Performed By: #### L 500.4100, L100.0100, L501.9520, L501.9985, L500.4050, L506.1000 #### [facility] [address] [place], [address] Platelet mean volume (Bld) [Entitic vol] 10.2 fL Normal 6.2-12.0 [facility] Comment on above: Performed By: #### L 500.4100, L100.0100, L501.9520, L501.9985, L500.4050, L506.1000 #### [facility] [address] [place], [address] Platelets (Bld) [#/Vol] 294 10*3/uL Normal 150-450 [facility] Comment on above: Performed By: #### L 500.4100, L100.0100, L501.9520, L501.9985, L500.4050, L506.1000 #### [facility] [address] [place], [address] RBC (Bld) [#/Vol] 4.15 10*6/uL Low 4.2-5.4 [facility] Comment on above: Performed By: #### L 500.4100, L100.0100, L501.9520, L501.9985, L500.4050, L506.1000 #### [facility] [address] [place], [address] RDW SD 46.8 fl High 35.1-43.9 [facility] Comment on above: Performed By: #### L 500.4100, L100.0100, L501.9520, L501.9985, L500.4050, L506.1000 #### [facility] [address] [place], [address] WBC (Bld) [#/Vol] 18.0 10*3/uL High 4.4-11.0 [facility] Comment on above: Performed By: #### L 500.4100, L100.0100, L501.9520, L501.9985, L500.4050, L506.1000 #### [facility] [address] [place], [address] Chest 1 View (Portable)on Chest 1 View (Portable) [facility] Imaging Services [address] [place] [address] Chest 1 View (Portable) MR#: [id number] Acct: [id number] Name: JACKELYN BRADSHAW Rep #: [id number] : 1940 F 83 From: Solomon Pichardo MD PCP: Dr. Yoav Chakraborty MD Status: REG ER Study: Chest 1 View (Portable) Date of Exam: 01/12/24 Exam# [id number] Ordering Dr: Chacho Epperson DO [id number] STUDY: X-RAY CHEST REASON FOR EXAM: Female, [...] Chacho Epperson DO; Dr. Yoav Chakraborty MD [employer] And Hydronic Balancing Technician: Signed Normal [facility] Culture, urineOrdered By: Purvi Fragoso on 01-12-2024 Bacteria identified Cx Nom (U) Staphylococcus warneri [facility] Determination of erythrocyte mean corpuscular volume (MCV)Ordered By: Chacho Epperson on 01-12-2024 MCV (RBC) [Entitic vol] 98.1 fL 81-99 [facility] Emergency Department Summary on 01-12-2024 Emergency Department Summary [facility] Medical Records Department [address] [place] [address] Emergency Department Summary 01/12/24 MR#: [id number] Acct: [id number] Name: JACKELYN BRADSHAW Rep #: [id number] : 1940 83 From: Chacho Epperson DO PCP: Dr. Yoav Chakraborty MD Status:ADM IN Location[place] [facility] FB232-7 [facility] History of Present Illness Chief Complaint: Lower Extremity Injury [facility] Medical History Chronic kidney disease Dementia Hx [...] % (Auto (more content not included)... Normal [facility] Erythrocyte distribution wid th ratioOrdered By: Chacho Epperson on 01-12-2024 Erythrocyte distribution width (RBC) [Ratio] 13.1 % 11.6-14.6 [facility] Erythrocyte distribution wid th standard deviationOrdered By: Chacho Epperson on 01-12-2024 Erythrocyte distribution width (RBC) [Entitic vol] 46.8 fL 35.1-43.9 [facility] Extremity Lower without Cont raon 01-12-2024 Extremity Lower without Contra [facility] Imaging Services [address] [place] [address] Extremity Lower without Contra MR#: [id number] Acct: [id number] Name: JACKELYN BRADSHAW Rep #: [id number] : 1940 F 83 From: Jimi Rubin MD PCP: Dr. Yoav Chakraborty MD Status: REG ER Study: Extremity Lower without Contra Date of Exam: 0 01/12/24 Exam# [id number] Ordering Dr: Chacho Epperson DO [id number] EXAM: CT LEFT LOWER EXTREMITY WITHOUT INTRAVENOUS [...] Chacho Epperson DO; Dr. Yoav Chakraborty MD Air And Hydronic Balancing Technician: Signed Normal [facility] Femur Min 2 Viewson 01-12-20 Femur Min 2 Views [facility] Imaging Services [address] [place] [address] Femur Min 2 Views MR#: [id number] Acct: [id number] Name: JACKELYN BRADSHAW Rep #: [id number] : 1940 F 83 From: Solomon Pichardo MD PCP: Dr. Yoav Chakraborty MD Status: ADM IN Study: Femur Min 2 Views Date of Exam: 01/12/24 Exam# [id number] Ordering Dr: David Morgan MD [id number] STUDY: X-RAY - LEFT FEMUR REASON FOR [...] Yoav Chakraborty MD; Dr. David Morgan MD [employer] And Hyd[employer] Balancing Technician: Signed Normal [facility] H AND P Exam - Hospitaliston 01-12-2024 H&P Exam - Hospitalist [facility] Medical Records Department [address] [place] [address] H P Exam - Hospitalist 01/12/241934 MR#: [id number] Acct: [id number] Name: JACKELYN BRADSHAW Rep #: [id number] : 1940 83 From: Howard Fragoso MD PCP: Dr. Yoav Chakraborty MD Status:ADM IN Location: [facility] PT096-8 HPI - General General Date of Admission: [...] that did not demonstrate any additional findings. [facility] Medical History (Updated 01/12/24 @ 19:38 by [...] Oriented x3, (more content not included)... Normal [facility] HIP, UNI W/ Pelvis 2-3 Views on 01-12-2024 HIP, UNI W/ Pelvis 2-3 Views [facility] Imaging Services [address] [place] [address] HIP, UNI W/ Pelvis 2-3 Views MR#: [id number] Acct: [id number] Name: JACKELYN BRADSHAW Rep #: [id number] : 1940 F 83 From: Naga hussein MD PCP: Dr. Yoav Chakraborty MD Status: PRE ER Study: HIP, UNI W/ Pelvis 2-3 Views Date of Exam: 06/28 Exam# [id number] Ordering Dr: Chacho Epperson DO [id number] STUDY: X-RAY - PELVIS AND LEFT HIP [...] Chacho Epperson DO; Dr. Yoav Chakraborty MD Air And Hydronic Balancing Technician: Signed Normal [facility] Hematocrit Auto (Bld) [Volum e fraction]Ordered By: Chacho Epperson on 01-12-2024 Hematocrit (Bld) [Volume fraction] 40.7 % 37-47 [facility] Immature granulocytes/100 WB C Auto (Bld)Ordered By: Chacho Epperson on 01-12-2024 Immature granulocytes/100 WBC (Bld) 0.500 % 0.0-0.9 [facility] Comment on above: IG% - Immature Granu locytes (promyelocytes, myelocytes and metamyelocytes) > 1% indicates that a LEFT SHIFT is Present. Ketones Test strip Ql (U)Ord ered By: Chacho Epperson on 01-12-2024 Ketones Ql (U) 5 mg/dl Negative [facility] Laboratory - Chemistry and C hemistry - challengeOrdered By: Chacho Epperson on 01-12-2024 CO2 [Moles/Vol] 29.0 mmol/L 21.0-32.0 [facility] Urea nitrogen/Creatinine [Mass ratio] 17.4 mg/mg 10-20 [facility] Laboratory - Hematology and Cell countsOrdered By: Chacho Epperson on 01-12-2024 MCH (RBC) [Entitic mass] 31.1 pg 27.0-32.0 [facility] MCHC (RBC) [Mass/Vol] 31.7 g/dL 32-36 [facility] Nucleated RBC/100 WBC (Bld) [Ratio] 0 % 0-5 [facility] Platelet mean volume (Bld) [Entitic vol] 10.2 fL 6.2-12.0 [facility] Platelets (Bld) [#/Vol] 294 10*3/uL 150-450 [facility] Mucus LM Ql (Urine sed)Order ed By: Chacho Epperson on 01-12-2024 Mucus Ql (Urine sed) 1+ /hpf [facility] Nitrite Test strip Ql (U)Ord ered By: Chacho Epperson on 01-12-2024 Nitrite Ql (U) Negative Negative [facility] No Panel InformationOrdered By: Chacho Epperson on 01-12-2024 Estimated Creatinine Clearance Calc 30.01 ml/min [facility] Estimated GFR (MDRD) Amer 47 mL/min >60 [facility] Comment on above: GFR Calc Estimated GFR (MDRD) Non-Af Amer 39 mL/min >60 [facility] Comment on above: Non- GFR Calc Urine RBC 0 SEEN /hpf 0-5 [facility] Protein Test strip Ql (U)Ord ered By: Chacho Epperson on 01-12-2024 Protein Ql (U) 30 mg/dl Negative [facility] RBC Auto (Bld) [#/Vol]Ordere d By: Chacho Epperson on 01-12-2024 RBC (Bld) [#/Vol] 4.15 10*6/uL 4.2-5.4 [facility] Serum or plasma calcium phill urement (mass/volume)Ordered By: Chacho Epperson on 01-12-2024 Calcium [Mass/Vol] 9.0 mg/dL 8.5-10.1 [facility] Serum or plasma creatinine m easurement (mass/volume)Ordered By: Chacho Epperson on 01-12-2024 Creatinine [Mass/Vol] 1.38 mg/dL 0.55-1.02 [facility] Comment on above: The validity of the calculated GFR & GFRAA in patients over 70 years has not been determined. Clinical correlation is essential. Serum or plasma urea nitroge n measurement (mass/volume)Ordered By: Chacho Epperson on 01-12-2024 Urea nitrogen [Mass/Vol] 24 mg/dL 7-18 [facility] Spine Cervical without Contr ason 01-12-2024 Spine Cervical without Contras [facility] Imaging Services [address] [place] [address] Spine Cervical without Contras MR#: [id number] Acct: [id number] Name: JACKELYN BRADSHAW Rep #: [id number] : 1940 F 83 From: Naga hussein MD PCP: Dr. Yoav Chakraborty MD Status: [facility] ER Study: Spine Cervical without Contras Date of Exam: 0 01/12/24 Exam# [id number] Ordering Dr: Chacho Epperson DO [id number] STUDY: CT CERVICAL SPINE WITHOUT CONTRAST REASON [...] Chacho Epperson DO; Dr. Yoav Chakraborty MD [employer] And Hydronic Balancing Technician: Signed Normal [facility] Squamous epithelial cells de tection in urine sediment by light microscopyOrdered By: Chacho Epperson on 01-12-2024 Epithelial cells.squamous LM Ql (Urine sed) 0 SEEN /hpf 5-10 [facility] Thin prep Papanicolaou smear with manual screeningOrdered By: Chacho Epperson on 01-12-2024 Thin prep Papanicolaou smear with manual screening 5 5-15 [facility] Urinalysis, Completeon 01-11 BACTERIA 1+ /hpf Normal None Seen [facility] Comment on above: Order Comment: COLLE CTOR TO SPECIFY Performed By: #### L 500.4100, L100.0100, L501.9520, L501.9985, L500.4050, L506.1000 #### [facility] [address] [place], [address] Mucus Ql (Urine sed) 1+ /hpf Normal [facility] Comment on above: Order Comment: COLLE CTOR TO SPECIFY Performed By: #### L 500.4100, L100.0100, L501.9520, L501.9985, L500.4050, L506.1000 #### [facility] [address] [place], [address] WBC 0-5 SEEN Normal 0-5 [facility] Comment on above: Order Comment: GINGER CTOR TO SPECIFY Performed By: #### L 500.4100, L100.0100, L501.9520, L501.9985, L500.4050, L506.1000 #### [facility] [address] [place], [address] EPI,SQUAMOUS 0 SEEN Normal 5-10 [facility] Comment on above: Order Comment: GINGER CTOR TO SPECIFY Performed By: #### L 500.4100, L100.0100, L501.9520, L501.9985, L500.4050, L506.1000 #### [facility] [address] [place], [address] RBC 0 SEEN Normal 0-5 [facility] Comment on above: Order Comment: COLLE CTOR TO SPECIFY Performed By: #### L 500.4100, L100.0100, L501.9520, L501.9985, L500.4050, L506.1000 #### [facility] [address] [place], [address] Urine blood detectionOrdered By: Chacho Epperson on 01-12-2024 RBC Ql (U) 25 /ul Negative [facility] Urine clarityOrdered By: Servando Epperson on 01-12-2024 Clarity (U) Clear Clear [facility] Urine color determinationOrd ered By: Chacho Epperson on 01-12-2024 Color (U) Yellow Yellow [facility] Urine glucose detectionOrder ed By: Chacho Epperson on 01-12-2024 Glucose Ql (U) Normal mg/dl Normal [facility] Urine leukocyte esterase det ection by dipstickOrdered By: Chacho Epperson on 01-12-2024 Leukocyte esterase Test strip Ql (U) 100 /ul Negative [facility] Urine pHOrdered By: Chacho ayala on 01-12-2024 pH (U) 6.0 [pH] 5.0 - 8.0 [facility] Urine sediment bacteria coun t by microscopy (number/high power field)Ordered By: Chacho Epperson on 01-12-2024 Bacteria LM.HPF (Urine sed) [#/Area] 1 /[HPF] None Seen [facility] Urine specific gravity measu rementOrdered By: Chacho Epperson on 01-12-2024 Specific gravity (U) [Rel density] 1.020 1.002-1.030 [facility] Urine urobilinogen measureme ntOrdered By: Chacho Epperson on 01-12-2024 Urobilinogen Ql (U) 1 mg/dl Normal [facility] Absolute lymphocyte countOrd ered By: Connor Kay on 08-19-2023 Lymphocytes Auto (Unsp spec) [#/Vol] 3.15 10*3/uL 0.83-4.51 [facility] Basophil percentageOrdered B y: Connor Kay on 08-19-2023 Basophils/100 WBC (Bld) 0.5 % 0-1 [facility] Bilirubin [Mass/Vol] 0.20 mg/dL 0.20-1.00 [facility] Comment on above: For patients on eltr ombopag therapy, use of Dimension Jachin TBIL is not recommended. Chloride [Moles/Vol] 103 mmol/L 98-107 [facility] Eosinophils/100 WBC (Bld) 1.0 % 0-5 [facility] Glucose [Mass/Vol] 106 mg/dL 74-106 [facility] Comment on above: Fasting Glucose resu lt from 100 to 125 mg/dL suggests IMPAIRED HOMEOSTASIS per A.D.A. criteria. Neutrophils (Bld) [#/Vol] 4.4 10*3/uL 2.0-7.7 [facility] Neutrophils/100 WBC (Bld) 53.1 % 47-70 [facility] Potassium [Moles/Vol] 3.9 mmol/L 3.5-5.1 [facility] Protein [Mass/Vol] 7.4 g/dL 6.4-8.2 [facility] Sodium [Moles/Vol] 139 mmol/L 136-145 [facility] WBC (Bld) [#/Vol] 8.4 10*3/uL 4.4-11.0 [facility] Blood erythrocytes count (nu mber/volume)Ordered By: Connor Kay on 08-19-2023 RBC (Bld) [#/Vol] 3.93 10*6/uL 4.2-5.4 [facility] Blood hemoglobin measurement (mass/volume)Ordered By: Connor Kay on 08-19-2023 Hemoglobin (Bld) [Mass/Vol] 12.2 g/dL 12.0-15.0 [facility] Blood lymphocytes/100 leukoc ytesOrdered By: Connor Kay on 08-19-2023 Lymphocytes/100 WBC (Bld) 37.6 % 19-41 [facility] Blood monocytes/100 leukocyt esOrdered By: Connor Kay on 08-19-2023 Monocytes/100 WBC (Bld) 7.6 % 0-10 [facility] Blood platelet mean volumeOr dered By: Connor Kay on 08-19-2023 Platelet mean volume (Bld) [Entitic vol] 10.7 fL 6.2-12.0 [facility] Determination of erythrocyte mean corpuscular volume (MCV)Ordered By: Connor Kay on 08-19-2023 MCV (RBC) [Entitic vol] 99.2 fL 81-99 [facility] Hematocrit Auto (Bld) [Volum e fraction]Ordered By: Connor Rahul on 08-19-2023 Hematocrit (Bld) [Volume fraction] 39.0 % 37-47 [facility] Laboratory - Chemistry and C hemistry - challengeOrdered By: Connor Kay on 08-19-2023 ALP [Catalytic activity/Vol] 109 U/L 45-117 [facility] ALT [Catalytic activity/Vol] 12 U/L 13-56 [facility] CO2 [Moles/Vol] 30.0 mmol/L 21.0-32.0 [facility] Globulin (S) [Mass/Vol] 4.4 g/dL 2.2-4.2 [facility] Urea nitrogen/Creatinine [Mass ratio] 16.8 mg/mg 10-20 [facility] Laboratory - Hematology and Cell countsOrdered By: Connor Kay on 08-19-2023 Erythrocyte distribution width (RBC) [Entitic vol] 47.0 fL 35.1-43.9 [facility] Erythrocyte distribution width (RBC) [Ratio] 12.9 % 11.6-14.6 [facility] Immature granulocytes/100 WBC (Bld) 0.200 % 0.0-0.9 [facility] Comment on above: IG% - Immature Granu locytes (promyelocytes, myelocytes and metamyelocytes) > 1% indicates that a LEFT SHIFT is Present. MCH (RBC) [Entitic mass] 31.0 pg 27.0-32.0 [facility] Nucleated RBC/100 WBC (Bld) [Ratio] 0 % 0-5 [facility] MCHC Auto (RBC) [Mass/Vol]Or dered By: Connor Kay on 08-19-2023 MCHC (RBC) [Mass/Vol] 31.3 g/dL 32-36 [facility] No Panel InformationOrdered By: Connor Kay on 08-19-2023 Estimated GFR (MDRD) Amer 50 mL/min >60 [facility] Comment on above: GFR Calc Estimated GFR (MDRD) Non-Af Amer 41 mL/min >60 [facility] Comment on above: Non- GFR Calc Thyroid Stimulating Hormone (TSH) 4.46 uIU/mL 0.358-3.74 [facility] Vitamin D 25-Hydroxy 69.8 ng/mL [facility] Comment on above: Vitamin D 25(OH) Sta tus Range Deficiency <20 ng/mL (50nmol/L) Insufficiency 20 - 30 ng/mL (50 - 75 nmol/L) Sufficiency 30 - 100 ng/mL (75 - 250 nmol/L) Toxicity >100 ng/mL (>250 nmol/L) Platelets bldOrdered By: Connor Kay on 08-19-2023 Platelets (Bld) [#/Vol] 260 10*3/uL 150-450 [facility] Serum or plasma albumin phill urement (mass/volume)Ordered By: Connor Kay on 08-19-2023 Albumin [Mass/Vol] 3.0 g/dL 3.2-5.0 [facility] Serum or plasma albumin/glob ulin mass ratioOrdered By: Connor Kay on 08-19-2023 Albumin/Globulin [Mass ratio] 0.7 {ratio} 0.9-2.4 [facility] Serum or plasma calcium phill urement (mass/volume)Ordered By: Connor Kay on 08-19-2023 Calcium [Mass/Vol] 8.6 mg/dL 8.5-10.1 [facility] Serum or plasma creatinine m easurement (mass/volume)Ordered By: Connor Kay on 08-19-2023 Creatinine [Mass/Vol] 1.31 mg/dL 0.55-1.02 [facility] Comment on above: The validity of the calculated GFR & GFRAA in patients over 70 years has not been determined. Clinical correlation is essential. Serum or plasma urea nitroge n measurement (mass/volume)Ordered By: Connor Kay on 08-19-2023 Urea nitrogen [Mass/Vol] 22 mg/dL 7-18 [facility] Thin prep Papanicolaou smear with manual screeningOrdered By: Connor Rahul 08-19-2023 Thin prep Papanicolaou smear with manual screening 14 U/L 15-37 [facility] Thin prep Papanicolaou smear with manual screening 6 5-15 [facility] 36on 05-02-2023 36 S: Patient calling t he [facility] for a medication refill. B: Medication: Citalopram 20 mg . A. Daughter requesting refill. R: Paged contact representative provider. Dr. Art prescribed Citalopram 20 mg 2 times daily. Dispense 60. No refills. Called [facility] pharmacy @ [phone]. Daughter notified. Message sent to provider via right fax. Your fax has been successfully sent to Dr. Chakraborty at [phone]. Reason for Disposition [1] Prescription refill request for NON-ESSENTIAL medicine (i.e., no harm to patient if med not taken) AND [2] triager unable to refill per department policy Protocols used: Medication Refill and Renewal [facility] CBC W Auto Differential pane l (Bld)on 03-05-2023 Basophils (Bld) [#/Vol] 0.03 10*3/uL <0.11 k/uL [facility] Basophils/100 WBC (Bld) 0.5 % C [facility] Differential cell count method Nom (Bld) Auto [facility] Eosinophils (Bld) [#/Vol] 0.10 10*3/uL <0.46 k/uL [facility] Eosinophils/100 WBC (Bld) 1.5 % [facility] Erythrocyte distribution width (RBC) [Ratio] 12.9 % 11.5 - 15.0 % [facility] Hematocrit (Bld) [Volume fraction] 37.2 % 36.0 - 46.0 % [facility] Hemoglobin (Bld) [Mass/Vol] 12.3 g/dL 11.5 - 15.5 g/dL [facility] [facility] Immature granulocytes (Bld) [#/Vol] 0.05 10*3/uL <0.10 k/uL [facility] Immature granulocytes/100 WBC (Bld) 0.8 % [facility] Lymphocytes (Bld) [#/Vol] 1.82 10*3/uL 1.00 - 4.00 k/uL [facility] Lymphocytes/100 WBC (Bld) 28.0 % [facility] MCH (RBC) [Entitic mass] 32.2 pg 26.0 - 34.0 pg [facility] MCHC (RBC) [Mass/Vol] 33.1 g/dL 30.5 - 36.0 g/dL [facility] MCV (RBC) [Entitic vol] 97.4 fL 80.0 - 100.0 fL [facility] Monocytes (Bld) [#/Vol] 0.48 10*3/uL <0.87 k/uL [facility] Monocytes/100 WBC (Bld) 7.4 % [facility] Neutrophils (Bld) [#/Vol] 4.01 10*3/uL 1.45 - 7.50 k/uL [facility] Neutrophils/100 WBC (Bld) 61.8 % [facility] Nucleated RBC (Bld) [#/Vol] <0.01 k/uL [facility] Nucleated RBC/100 WBC (Bld) [Ratio] 0.0 /100 WBC [facility] Platelet mean volume (Bld) [Entitic vol] 10.3 fL 9.0 - 12.7 fL [facility] Platelets (Bld) [#/Vol] 166 10*3/uL 150 - 400 k/uL [facility] RBC (Bld) [#/Vol] 3.82 10*6/uL Low 3.90 - 5.2 0 m/uL [facility] WBC (Bld) [#/Vol] 6.49 10*3/uL 3.70 - 11. 00 k/uL [facility] Comprehensive metabolic 2000 panelon 03-05-2023 Albumin [Mass/Vol] 3.6 g/dL Low 3.9 - 4.9 g/dL [facility] ALP [Catalytic activity/Vol] 83 U/L 34 - 123 U/L [facility] ALT [Catalytic activity/Vol] 9 U/L 7 - 38 U/L [facility] Anion gap [Moles/Vol] 12 mmol/L 9 - 18 mmol/L [facility] AST [Catalytic activity/Vol] 16 U/L 13 - 35 U/L [facility] Bilirubin [Mass/Vol] 0.3 mg/dL 0.2 - 1 .3 mg/dL [facility] Calcium [Mass/Vol] 8.9 mg/dL 8.5 - 10. 2 mg/dL [facility] Chloride [Moles/Vol] 106 mmol/L High 97 - 10 5 mmol/L [facility] CO2 [Moles/Vol] 25 mmol/L 22 - 30 mmol/L [facility] Creatinine [Mass/Vol] 1.09 mg/dL High 0.58 - 0.96 mg/dL [facility] Estimated Glomerular Filtration Rate 51 mL/min/1.73m Low >=60 mL/min/1.73m [facility] Glucose [Mass/Vol] 90 mg/dL 74 - 99 mg/dL [facility] Potassium [Moles/Vol] 4.5 mmol/L 3.7 - 5.1 mmol/L [facility] Protein [Mass/Vol] 7.0 g/dL 6.3 - 8.0 g/dL [facility] Sodium [Moles/Vol] 143 mmol/L 136 - 144 mmol/L [facility] Urea nitrogen [Mass/Vol] 25 mg/dL High 7 - 21 mg/dL [facility] 36on 08-05-2022 36 Tried to returned th e call. Phone number is the wrong number. Normal [facility] Absolute lymphocyte counton 08-05-2022 Lymphocytes Auto (Unsp spec) [#/Vol] 1.25 10*3/uL 0.83-4.51 [facility] Work Phone: Basophil percentageon 2021 Basophil percentage 0-5 SEEN /hpf 0-5 [facility] Work Phone: Basophil percentage < 10.0 umol/L 11-32 [facility] Work Phone: Basophils/100 WBC (Bld) 0.4 % 0-1 [facility] Work Phone: [phone] Bilirubin [Mass/Vol] 0.30 mg/dL 0.20-1.00 [facility] Work Phone: Comment on above: For patients on eltr ombopag therapy, use of Dimension Jachin TBIL is not recommended. Chloride [Moles/Vol] 109 mmol/L 98-107 [facility] Work Phone: [phone] Eosinophils/100 WBC (Bld) 0.1 % 0-5 [facility] Work Phone: Glucose [Mass/Vol] 131 mg/dL 74-106 [facility] Work Phone: Comment on above: Fasting Glucose resu lt greater than or equal to 126 mg/dL suggests DIABETES MELLITUS per A.D.A. criteria. Neutrophils (Bld) [#/Vol] 6.3 10*3/uL 2.0-7.7 [facility] Work Phone: Neutrophils/100 WBC (Bld) 78.4 % 47-70 [facility] Work Phone: [phone] Potassium [Moles/Vol] 4.1 mmol/L 3.5-5.1 [facility] Work Phone: Protein [Mass/Vol] 7.0 g/dL 6.4-8.2 [facility] Work Phone: Sodium [Moles/Vol] 143 mmol/L 136-145 [facility] Work Phone: WBC (Bld) [#/Vol] 8.0 10*3/uL 4.4-11.0 [facility] Work Phone: Bilirubin Test strip Ql (U)o n 08-05-2022 Bilirubin Ql (U) Negative Negative [facility] Work Phone: Blood erythrocytes count (nu mber/volume)on 08-05-2022 RBC (Bld) [#/Vol] 3.45 10*6/uL 4.2-5.4 [facility] Work Phone: Blood hemoglobin measurement (mass/volume)on 08-05-2022 Hemoglobin (Bld) [Mass/Vol] 10.7 g/dL 12.0-15.0 [facility] Work Phone: Blood lymphocytes/100 leukoc yteson 08-05-2022 Lymphocytes/100 WBC (Bld) 15.6 % 19-41 [facility] Work Phone: Blood monocytes/100 leukocyt eson 08-05-2022 Monocytes/100 WBC (Bld) 5.1 % 0-10 [facility] Work Phone: Blood platelet mean volumeon 08-05-2022 Platelet mean volume (Bld) [Entitic vol] 10.8 fL 6.2-12.0 [facility] Work Phone: Determination of erythrocyte mean corpuscular volume (MCV)on 08-05-2022 MCV (RBC) [Entitic vol] 96.2 fL 81-99 [facility] Work Phone: Hematocrit Auto (Bld) [Volum e fraction]on 08-05-2022 Hematocrit (Bld) [Volume fraction] 33.2 % 37-47 [facility] Work Phone: Ketones Test strip Ql (U)on 08-05-2022 Ketones Ql (U) 15 mg/dl Negative [facility] Work Phone: Laboratory - Chemistry and C hemistry - challengeon 08-05-2022 ALP [Catalytic activity/Vol] 76 U/L 45-117 [facility] Work Phone: ALT [Catalytic activity/Vol] 22 U/L 13-56 [facility] Work Phone: CO2 [Moles/Vol] 29.0 mmol/L 21.0-32.0 [facility] Work Phone: Globulin (S) [Mass/Vol] 3.8 g/dL 2.2-4.2 [facility] Work Phone: Urea nitrogen/Creatinine [Mass ratio] 18.4 mg/mg 10-20 [facility] Work Phone: Laboratory - Hematology and Cell countson 08-05-2022 Erythrocyte distribution width (RBC) [Entitic vol] 47.3 fL 35.1-43.9 [facility] Work Phone: Erythrocyte distribution width (RBC) [Ratio] 13.3 % 11.6-14.6 [facility] Work Phone: Immature granulocytes/100 WBC (Bld) 0.400 % 0.0-0.9 [facility] Work Phone: Comment on above: IG% - Immature Granu locytes (promyelocytes, myelocytes and metamyelocytes) > 1% indicates that a LEFT SHIFT is Present. MCH (RBC) [Entitic mass] 31.0 pg 27.0-32.0 [facility] Work Phone: Nucleated RBC/100 WBC (Bld) [Ratio] 0 % 0-5 [facility] Work Phone: MCHC Auto (RBC) [Mass/Vol]on 08-05-2022 MCHC (RBC) [Mass/Vol] 32.2 g/dL 32-36 [facility] Work Phone: Mucus LM Ql (Urine sed)on Mucus Ql (Urine sed) 0 SEEN /hpf [facility] Work Phone: Nitrite Test strip Ql (U)on 08-05-2022 Nitrite Ql (U) Negative Negative [facility] Work Phone: No Panel Informationon 08-05 Estimated Creatinine Clearance Calc 25.66 ml/min [facility] Work Phone: Estimated GFR (MDRD) Amer 48 mL/min >60 [facility] Work Phone: Comment on above: GFR Calc Estimated GFR (MDRD) Non-Af Amer 40 mL/min >60 [facility] Work Phone: Comment on above: Non- GFR Calc Platelets bldon 08-05-2022 Platelets (Bld) [#/Vol] 198 10*3/uL 150-450 [facility] Work Phone: Protein Test strip Ql (U)on 08-05-2022 Protein Ql (U) 30 mg/dl Negative [facility] Work Phone: Serum or plasma albumin phill urement (mass/volume)on 08-05-2022 Albumin [Mass/Vol] 3.2 g/dL 3.2-5.0 [facility] Work Phone: Serum or plasma albumin/glob ulin mass ratioon 08-05-2022 Albumin/Globulin [Mass ratio] 0.8 {ratio} 0.9-2.4 [facility] Work Phone: Serum or plasma calcium phill urement (mass/volume)on 08-05-2022 Calcium [Mass/Vol] 9.1 mg/dL 8.5-10.1 [facility] Work Phone: Serum or plasma creatinine m easurement (mass/volume)on 08-05-2022 Creatinine [Mass/Vol] 1.36 mg/dL 0.55-1.02 [facility] Work Phone: Comment on above: The validity of the calculated GFR & GFRAA in patients over 70 years has not been determined. Clinical correlation is essential. Serum or plasma urea nitroge n measurement (mass/volume)on 08-05-2022 Urea nitrogen [Mass/Vol] 25 mg/dL 7-18 [facility] Work Phone: Squamous epithelial cells de tection in urine sediment by light microscopyon 08-05-2022 Epithelial cells.squamous LM Ql (Urine sed) 0 SEEN /hpf 5-10 [facility] Work Phone: Thin prep Papanicolaou smear with manual screeningon 08-05-2022 Thin prep Papanicolaou smear with manual screening 20 U/L 15-37 [facility] Work Phone: Thin prep Papanicolaou smear with manual screening 5 5-15 [facility] Work Phone: Urine blood detectionon - RBC Ql (U) 10 /ul Negative [facility] Work Phone: RBC Ql (U) 0 SEEN /hpf 0-5 [facility] Work Phone: Urine clarityon 08-05-2022 Clarity (U) Clear Clear [facility] Work Phone: Urine color determinationon 08-05-2022 Color (U) Yellow Yellow [facility] Work Phone: Urine glucose detectionon Glucose Ql (U) Normal mg/dl Normal [facility] Work Phone: Urine leukocyte esterase det ection by dipstickon 08-05-2022 Leukocyte esterase Test strip Ql (U) Negative Negative [facility] Work Phone: Urine pHon 08-05-2022 pH (U) 5.0 [pH] 5.0 - 8.0 [facility] Work Phone: Urine sediment bacteria coun t by microscopy (number/high power field)on 08-05-2022 Bacteria LM.HPF (Urine sed) [#/Area] RARE /hpf None Seen [facility] Work Phone: Urine specific gravity measu rementon 08-05-2022 Specific gravity (U) [Rel density] 1.025 1.002-1.030 [facility] Work Phone: Urobilinogen Auto test strip Ql (U)on 08-05-2022 Urobilinogen Ql (U) Normal mg/dl Normal [facility] Work Phone: 36on 08-04-2022 36 {\rtf1\vpaelq98326\a ns i\rgjhjru6126\ftnbj\uc 1\deff0 \X0A\{\fonttbl{\f0 \fnil \fcharset0 [place];}{\f1 \fnil [place];}{\f2 \fnil SEGOE UI;}}\X0A\{\colortbl ;\mcs307\ivqbi813\blue 255 ;\red79\green79\blue79 ;\red95\green95\blue95 ;\red0\green0\blue0 ;\red0\dvman616\blue19 2 ;\red0\green0\blue0 ;}\X0A\{\stylesheet{\f 0\fs24 Normal;}{\cs1 Default Paragraph Font;}{\s2\snext0 heading 1;}{\s3\snext0 heading 2;}{\s4\snext0 heading 3;}{\s5\snext0 heading 4;}{\s6\snext0 heading 5;}{\s7\snext0 heading 6;}}\X0A\{\*\revtbl{Un known;}}\X0A\\ 240\mupdsh79475\margl8 64\\torow321\m ahtk653\\patricia zyor400\nogrowautofit\ trpobq599\formshade\dn tblnsbdb\fet4\aendnote s\aftnnrlc\pgbrdrhead\ pgbrdrfoot \X0A\\sectd\lpvdlm9207 0\qikjzy49657\guttersx n0\sksjdjig993\margrsx n576\rqqjspme987\margb auy599\cqigcpd558\foot hzp881\sbkpage\pgncont \pgndec \X0A\\plain\plain\f0\f s24\pard\ssparaaux0\s0 \sl24\ltrpar\ql\keepn\ plain\f0\fs24{\*\bkmks tart Telephone Encounter by Yuli Schwartz at 08/04/2022 8:58 AM}{\*\bkmkend Telephone Encounter by Yuli Schwartz at 08/04/2022 8:58 AM}\plain\f0\fs20\hich \f0\dbch\f0\loch\f0\fs 20\v \X0A\bmk\par \X0A\\trowd\trgaph0\la strow\trpaddl0\trpaddf l3\trpaddr0\trpaddfr3\ trleft0\ests810\ltrrow \X0A\\clvertalb\clbrdr b\brdrs\\brdrcf 2\nnrld57329 \X0A\\pard\intbl\sspar aaux0\s0\sl24\ltrpar\q l\keepn\plain\f0\fs24{ \*\bkmkstart Telephone Encounter by Yuli Schwartz at 08/04/2022 8:58 AM}{\*\bkmkend Telephone Encounter by Yuli Schwartz at 08/04/2022 8:58 AM}\plain\f0\fs20\hich \f0\dbch\f0\loch\f0\cf 2\fs20\ltrch\b \X0A\Telephone Encounter by Yuli Schwartz at 08/04/2022 8:58 AM\plain\f0\fs20\hich\ f0\dbch\f0\loch\f0\fs2 0 \cell \X0A\\intbl\row \X0A\\pard\ssparaaux0\ s0\ql\plain\f0\fs24\pl ain\f0\fs20\hich\f0\db ch\f0\loch\f0\fs20\par d\sect \X0A\\sectd\bocgee8201 0\nrxjst03689\guttersx n0\chndpuru252\margrsx n576\akekqiak168\margb grl815\\foot vha508\sbknone\pgncont \pgndec \X0A\{\header \X0A\\trowd\trgaph0\la strow\trpaddl0\trpaddf l3\trpaddr0\trpaddfr3\ trleft0\gtyn483\ltrrow \X0A\\clvertalb\clbrdr b\brdrs\\brdrcf 2\tqney23876 \X0A\\pard\intbl\sspar aaux0\s0\sl24\ltrpar\q l\keepn\plain\f0\fs24\ plain\f0\fs20\hich\f0\ dbch\f0\loch\f0\cf2\fs 20\ltrch\b Telephone [...] \loch\f0\fs20\cell \X0A\\pard\intbl\sspar aaux0\s0\li80\ri80\sl2 4\ql\keepn\plain\f0\fs 24\plain\f0\fs20\hich\ f0\dbch\f0\loch\f0\cf3 \fs20 [address] Judge: \plain\f0\fs20\hich\f0 \dbch\f0\loch\f0\cf4\f s20 Yuli L. Efren\plain\f0\fs20 \hich\f0\dbch\f0\loch\ f0\fs20\cell \X0A\\intbl\row \X0A\\trowd\trgaph0\la strow\trpaddl0\trpaddf l3\trpaddr0\trpaddfr3\ trleft0 \X0A\\clvertalt\cellx2 16 \X0A\\clvertalt\cellx1 0800 \X0A\\pard\intbl\sspar aaux0\s0\sl24\ql\plain \f0\fs24\plain\f0\fs20 \hich\f0\dbch\f0\loch\ f0\fs20\cell \X0A\\pard\intbl\sspar aaux0\s0\li80\ri80\sl2 4\ql\plain\f0\fs24\jing in\f0\fs20\hich\f0\dbc (more content not included)... Normal [facility] CBC (INCLUDES DIFF/PLT)on Basophils (Bld) [#/Vol] 0.021 10*3/uL Normal 0-200 [facility] Comment on above: Performed By: #### 4 889, [id number] #### [facility] [address], [address] [place] [id number] [employer] Teacher: Jhon Sheets MD Basophils/100 WBC (Bld) 0.3 % Normal [facility] Comment on above: Performed By: #### 0 772, 03299 #### [facility] of [place] [address] [employer] Teacher: Jhon Sheets MD Eosinophils (Bld) [#/Vol] 0.098 10*3/uL Normal 15-500 [facility] Comment on above: Performed By: #### 6 399, #### [facility] [place] [address] [employer] Teacher: Jhon Sheets MD Eosinophils/100 WBC (Bld) 1.4 % Normal [facility] Comment on above: Performed By: #### 6 399, #### [facility] [place] [address] [employer] Teacher: Jhon Sheets MD Erythrocyte distribution width (RBC) [Ratio] 12.9 % Normal 11.0-15.0 [facility] Comment on above: Performed By: #### 6 399, #### [facility] [place] [address] [employer] Teacher: Jhon Sheets MD Hematocrit (Bld) [Volume fraction] 33.8 % Low 35.0-45.0 [facility] Comment on above: Performed By: #### 6 399, #### [facility] of [place] [address] [employer] Teacher: John Sheets MD Hemoglobin (Bld) [Mass/Vol] 11.0 g/dL Low 11.7-15.5 [facility] Comment on above: Performed By: #### 6 399, #### [facility] [place] [address] [employer] Teacher: Jhon Sheets MD Lymphocytes (Bld) [#/Vol] 1.918 10*3/uL Normal 850-3900 [facility] Comment on above: Performed By: #### 6 399, #### [facility] [place] [address] [employer] Teacher: Jhon Sheets MD Lymphocytes/100 WBC (Bld) 27.4 % Normal [facility] Comment on above: Performed By: #### 6 399, 62927 #### [facility] [place] [address] [employer] Teacher: Jhon Sheets MD MCH (RBC) [Entitic mass] 30.7 pg Normal 27.0-33.0 [facility] Comment on above: Performed By: #### 6 399, 02282 #### [facility] of [place] [address] [employer] Teacher: Jhon Sheets MD MCHC (RBC) [Mass/Vol] 32.5 g/dL Normal 32.0-36.[address] [facility] Comment on above: Performed By: #### 6 399, 52453 #### [facility] [place] [address] [employer] Teacher: Jhon Sheets MD MCV (RBC) [Entitic vol] 94.4 fL Normal 80.0-100.0 [facility] Comment on above: Performed By: #### 6 399, 64129 #### [facility] [place] [address] [employer] Teacher: Jhon Sheets MD Monocytes (Bld) [#/Vol] 0.532 10*3/uL Normal 200-950 [facility] Comment on above: Performed By: #### 6 399, 52046 #### [facility] [place] [address] [employer] Teacher: Jhon Sheets MD Monocytes/100 WBC (Bld) 7.6 % Normal [facility] Comment on above: Performed By: #### 6 399, 20003 #### [facility] [place] [address] [employer] Teacher: Jhon Sheets MD Neutrophils (Bld) [#/Vol] 4.431 10*3/uL Normal 5850-2037 [facility] Comment on above: Performed By: #### 6 399, 06665 #### [facility] [address] [place] [address] [employer]kin[employer] Teacher: Jhon Sheets MD Neutrophils/100 WBC (Bld) 63.3 % Normal [facility] Comment on above: Performed By: #### 6 399, 17218 #### [facility] of [address], [address] [place] [address] [employer]kin[employer] Teacher: Jhon Sheets MD Platelet mean volume (Bld) [Entitic vol] 11.3 fL Normal 7.5-12.5 [facility] Comment on above: Performed By: #### 6 399, 10080 #### [facility] of [address], [address] [place] [address] [employer] Teacher: Jhon Sheets MD Platelets (Bld) [#/Vol] 215 10*3/uL Normal 140-400 [facility] Comment on above: Performed By: #### 6 399, 39116 #### [facility] of [address], [address] [place] [address] [employer] Teacher: Jhon Sheets MD RBC (Bld) [#/Vol] 3.58 10*6/uL Low 3.80-5.10 [facility] Comment on above: Performed By: #### 6 399, 98555 #### [facility] of [address], [address] [place] [address] [employer] Teacher: Jhon Sheets MD WBC (Bld) [#/Vol] 7.0 10*3/uL Normal 3.8-10.8 [facility] Comment on above: Performed By: #### 6 399, 86975 #### [facility] of [place] [address] [employer] Teacher: Jhon Sheets MD COMPREHENSIVE METABOLIC PANE L W/O eGFRon 07-01-2022 Albumin [Mass/Vol] 3.8 g/dL Normal 3.6-5.1 [facility] Comment on above: Order Comment: FASTI NG:NO FASTING: NO Performed By: #### 6 399, 20506 #### [facility] of [address], [address] [place] [address] [employer] Teacher: Jhon Sheets MD Albumin/Globulin [Mass ratio] 1.2 {ratio} Normal 1.0-2.5 [facility] Comment on above: Order Comment: FASTI NG:NO FASTING: NO Performed By: #### 6 399, 61500 #### [facility] [address], [address] [place] [address] [employer] Teacher: Jhon Sheets MD ALP [Catalytic activity/Vol] 70 U/L Normal 37-153 [facility] Comment on above: Order Comment: FASTI NG:NO FASTING: NO Performed By: #### 6 399, 18901 #### [facility] [place] [address] [employer] Teacher: Jhon Sheets MD ALT [Catalytic activity/Vol] 15 U/L Normal 6-29 [facility] Comment on above: Order Comment: FASTI NG:NO FASTING: NO Performed By: #### 6 399, 87240 #### [facility] of [address], [address] [place] [address] [employer] Teacher: Jhon Sheets MD AST [Catalytic activity/Vol] 22 U/L Normal 10-35 [facility] Comment on above: Order Comment: FASTI NG:NO FASTING: NO Performed By: #### 6 399, 93011 #### [facility] [place] [address] [employer] Teacher: Jhon Sheets MD Bilirubin [Mass/Vol] 0.3 mg/dL Normal 0.2-1.2 [facility] Comment on above: Order Comment: FASTI NG:NO FASTING: NO Performed By: #### 6 399, 33385 #### [facility] [place] [address] [employer] Teacher: Jhon Sheets MD Calcium [Mass/Vol] 9.3 mg/dL Normal 8.6-10.4 [facility] Comment on above: Order Comment: FASTI NG:NO FASTING: NO Performed By: #### 6 399, 71380 #### [facility] of [place] [address] [place] [address] [employer]kin[employer] Teacher: Jhon Sheets MD Chloride [Moles/Vol] 105 mmol/L Normal 98-110 [facility] Comment on above: Order Comment: FASTI NG:NO FASTING: NO Performed By: #### 6 399, 99213 #### [facility] [address], [address] [place] [address] [employer] Teacher: Jhon Sheets MD CO2 [Moles/Vol] 30 mmol/L Normal 20-32 [facility] Comment on above: Order Comment: FASTI NG:NO FASTING: NO Performed By: #### 6 399, 21161 #### [facility] [address], [address] [place] [address] [employer] Teacher: Jhon Sheets MD Creatinine [Mass/Vol] 1.48 mg/dL High 0.60-0.[address] [facility] Comment on above: Order Comment: FASTI NG:NO FASTING: NO Performed By: #### 6 399, 56157 #### [facility] [address], [address] [place] [address] [employer] Teacher: Jhon Sheets MD Globulin (S) [Mass/Vol] 3.1 g/dL Normal 1.9-3.7 [facility] Comment on above: Order Comment: FASTI NG:NO FASTING: NO Performed By: #### 6 399, 01054 #### [facility] [address], [address] [place] [address] [employer] Teacher: Jhon Sheets MD Glucose [Mass/Vol] 152 mg/dL High 65-139 [facility] Comment on above: Order Comment: FASTI NG:NO FASTING: NO Result Comment: Non-fasting reference interval For someone without known diabetes, a glucose value >125 mg/dL indicates that they may have diabetes and this should be confirmed with a follow-up test. Performed By: #### 6 399, 21130 #### [facility] [address], [address] [place] [address] [employer] Teacher: Jhon Sheets MD Potassium [Moles/Vol] 3.9 mmol/L Normal 3.5-5.[address] [facility] Comment on above: Order Comment: FASTI NG:NO FASTING: NO Performed By: #### 6 399, 01669 #### [facility] [address], [address] [place] [address] [employer]kin[employer] Teacher: Jhon Sheets MD Protein [Mass/Vol] 6.9 g/dL Normal 6.1-8.1 [facility] Comment on above: Order Comment: FASTI NG:NO FASTING: NO Performed By: #### 6 399, 83136 #### [facility] [address], [address] [place] [address] [employer] Teacher: Jhon Sheets MD Sodium [Moles/Vol] 142 mmol/L Normal 135-146 [facility] Comment on above: Order Comment: FASTI NG:NO FASTING: NO Performed By: #### 6 399, 14297 #### [facility] [address], [address] [place] [address] [employer] Teacher: Jhon Sheets MD Urea nitrogen [Mass/Vol] 26 mg/dL High 7-25 [facility] Comment on above: Order Comment: FASTI NG:NO FASTING: NO Performed By: #### 6 399, 89815 #### [facility] [place] [address] [employer] Teacher: Jhon Sheets MD Urea nitrogen/Creatinine [Mass ratio] 18 mg/mg Normal 6-22 [facility] Comment on above: Order Comment: FASTI NG:NO FASTING: NO Performed By: #### 6 399, 60131 #### [facility] [place] [address] [employer] Teacher: Jhon Sheets MD CULTURE, URINE, ROUTINEon CULTURE, URINE, ROUTINE SEE NOTE Normal [facility] Comment on above: Order Comment: FASTI NG:NO FASTING: NO Result Comment: CULTURE, URINE, ROUTINE Micro Number: [id number] Test Status: Final Specimen Source: Urine Specimen Quality: Adequate Result: Mixed genital sobeida isolated. These superficial bacteria are not indicative of a urinary tract infection. No further organism identification is warranted on this specimen. If clinically indicated, recollect clean-catch, mid-stream urine and transfer immediately to Urine Culture Transport Tube. Performed By: #### 3 95 #### [facility] [place] [address] [employer] Teacher: Jhon Sheets MD CBC (INCLUDES DIFF/PLT)on Basophils (Bld) [#/Vol] 0.02 10*3/uL Normal 0-200 [facility] Comment on above: Performed By: #### 6 399, 7600, 27340 #### [facility] [place] [address] [employer] Teacher: Jhon Sheets MD Basophils/100 WBC (Bld) 0.3 % Normal [facility] Comment on above: Performed By: #### 6 399, 7600, 74086 #### [facility] [place] [address] [employer] Teacher: Jhon Sheets MD Eosinophils (Bld) [#/Vol] 0.099 10*3/uL Normal 15-500 [facility] Comment on above: Performed By: #### 6 399, 7600, 03965 #### [facility] [place] [address] [employer] Teacher: Jhon Sheets MD Eosinophils/100 WBC (Bld) 1.5 % Normal [facility] Comment on above: Performed By: #### 6 399, 7600, 61981 #### [facility] [place] [address] [employer] Teacher: Jhon Sheets MD Erythrocyte distribution width (RBC) [Ratio] 14.0 % Normal 11.0-15.0 [facility] Comment on above: Performed By: #### 6 399, 7600, 26631 #### [facility] [place] [address] [employer] Teacher: Jhon Sheets MD Hematocrit (Bld) [Volume fraction] 34.4 % Low 35.0-45.0 [facility] Comment on above: Performed By: #### 6 399, 7600, 08617 #### [facility] [facility] [place] [address] [employer] Teacher: Jhon Sheets MD Hemoglobin (Bld) [Mass/Vol] 10.9 g/dL Low 11.7-15.5 [facility] Comment on above: Performed By: #### 6 399, 7600, 30412 #### [facility] [place] [address] [employer]kin[employer] Teacher: Jhon Sheets MD Lymphocytes (Bld) [#/Vol] 1.802 10*3/uL Normal 850-3900 [facility] Comment on above: Performed By: #### 6 399, 7600, 55972 #### [facility] [place] [address] [employer]kinder[employer] Teacher: Jhon Sheets MD Lymphocytes/100 WBC (Bld) 27.3 % Normal [facility] Comment on above: Performed By: #### 6 399, 7600, 02962 #### [facility] [place] [address] Prekinder[employer] Teacher: Jhon Sheets MD MCH (RBC) [Entitic mass] 31.7 pg Normal 27.0-33.0 [facility] Comment on above: Performed By: #### 6 399, 7600, 40733 #### [facility] [place] [address] Prekinder[employer] Teacher: Jhon Sheets MD MCHC (RBC) [Mass/Vol] 31.7 g/dL Low 32.0-36.[address] [facility] Comment on above: Performed By: #### 6 399, 7600, 60029 #### [facility] [place] [address] Prekinder[employer] Teacher: Jhon Sheets MD MCV (RBC) [Entitic vol] 100.0 fL Normal 80.0-100.0 [facility] Comment on above: Performed By: #### 6 399, 7600, 73682 #### [facility] of [address], [address] [place] [address] Prekindergarten Teacher: Jhon Sheets MD Monocytes (Bld) [#/Vol] 0.521 10*3/uL Normal 200-950 [facility] Comment on above: Performed By: #### 6 399, 7600, 46454 #### [facility] of [address], [address] [place] [address] Prekindergarten Teacher: Jhon Sheets MD Monocytes/100 WBC (Bld) 7.9 % Normal [facility] Comment on above: Performed By: #### 6 399, 7600, 70081 #### [facility] of [address], [address] [place] [address] Prekindergarten Teacher: Jhon Sheets MD Neutrophils (Bld) [#/Vol] 4.158 10*3/uL Normal 0384-7487 [facility] Comment on above: Performed By: #### 6 399, 7600, 46062 #### [facility] of [address], [address] [place] [address] Prekindergarten Teacher: Jhon Sheets MD Neutrophils/100 WBC (Bld) 63 % Normal [facility] Comment on above: Performed By: #### 6 399, 7600, 67760 #### [facility] of [address], [address] [place] [address] Prekindergarten Teacher: Jhon Sheets MD Platelet mean volume (Bld) [Entitic vol] 9.7 fL Normal 7.5-12.5 [facility] Comment on above: Performed By: #### 6 399, 7600, 66891 #### [facility] of [address], [address] [place] [address] Prekindergarten Teacher: Jhon Sheets MD Platelets (Bld) [#/Vol] 205 10*3/uL Normal 140-400 [facility] Comment on above: Performed By: #### 6 399, 7600, 87029 #### [facility] of [address], [address] [place] [address] Prekindergarten Teacher: Jhon Sheets MD RBC (Bld) [#/Vol] 3.44 10*6/uL Low 3.80-5.10 [facility] Comment on above: Performed By: #### 6 399, 7600, 57717 #### [facility] [place] [address] Prekindergarten Teacher: Jhon Sheets MD WBC (Bld) [#/Vol] 6.6 10*3/uL Normal 3.8-10.8 [facility] Comment on above: Performed By: #### 6 399, 7600, 23043 #### [facility] [place] [address] Prekindergarten Teacher: Jhon Sheets MD [facility] 03-29-2022 Albumin [Mass/Vol] 3.9 g/dL Normal 3.6-5.1 [facility] Comment on above: Performed By: #### 6 399, 7600, 58622 #### [facility] [place] [address] Prekindergarten Teacher: Jhon Sheets MD Albumin/Globulin [Mass ratio] 1.2 {ratio} Normal 1.0-2.5 [facility] Comment on above: Performed By: #### 6 399, 7600, 57333 #### [facility] [place] [address] Prekindergarten Teacher: Jhon Sheets MD ALP [Catalytic activity/Vol] 72 U/L Normal 37-153 [facility] Comment on above: Performed By: #### 6 399, 7600, 73661 #### [facility] [place] [address] Prekindergarten Teacher: Jhon Sheets MD ALT [Catalytic activity/Vol] 15 U/L Normal 6-29 [facility] Comment on above: Performed By: #### 6 399, 7600, 59825 #### [facility] [place] [address] Prekindergarten Teacher: Jhon Sheets MD AST [Catalytic activity/Vol] 20 U/L Normal 10-35 [facility] Comment on above: Performed By: #### 6 399, 7600, 54865 #### [facility] of [address], [address] [place] [address] Prekindergarten Teacher: Jhon Sheets MD Bilirubin [Mass/Vol] 0.3 mg/dL Normal 0.2-1.2 [facility] Comment on above: Performed By: #### 6 399, 7600, 49304 #### [facility] [address], [address] [place] [address] Prekindergarten Teacher: Jhon Sheets MD Calcium [Mass/Vol] 8.7 mg/dL Normal 8.6-10.4 [facility] Comment on above: Performed By: #### 6 399, 7600, 77168 #### [facility] [address], [address] [place] [address] Prekindergarten Teacher: Jhon Sheets MD Chloride [Moles/Vol] 104 mmol/L Normal 98-110 [facility] Comment on above: Performed By: #### 6 399, 7600, 53459 #### [facility] [place] [address] Prekindergarten Teacher: Jhon Sheets MD CO2 [Moles/Vol] 29 mmol/L Normal 20-32 [facility] Comment on above: Performed By: #### 6 399, 7600, 61061 #### [facility] [place] [address] Prekindergarten Teacher: Jhon Sheets MD Creatinine [Mass/Vol] 1.64 mg/dL High 0.60-0.[address] [facility] Comment on above: Result Comment: For patients >49 years of age, the reference limit for Creatinine is approximately 13% higher for people identified as -Vincentian. Performed By: #### 6 399, 7600, 99957 #### [facility] [address], [address] [place] [address] Prekindergarten Teacher: hJon Sheets MD eGFR NON-AFR. LAO 29 mL/min/1.73m2 Low > OR = 60 [facility] Comment on above: Performed By: #### 6 399, 7600, 80393 #### [facility] [place] [address] Prekindergarten Teacher: Jhon Sheets MD GFR/1.73 sq M.predicted among blacks MDRD (S/P/Bld) [Vol rate/Area] 34 mL/min/{1.73_m2} Low > OR = 60 [facility] Comment on above: Performed By: #### 6 399, 7600, 90882 #### [facility] [address], [address] [place] [address] Prekindergarten Teacher: Jhon Sheets MD Globulin (S) [Mass/Vol] 3.3 g/dL Normal 1.9-3.7 [facility] Comment on above: Performed By: #### 6 399, 7600, 16890 #### [facility] [address], [address] [place] [address] Prekindergarten Teacher: Jhon Sheets MD Glucose [Mass/Vol] 96 mg/dL Normal 65-99 [facility] Comment on above: Result Comment: Fasting reference interval Performed By: #### 6 399, 7600, 37823 #### [facility] [place] [address] Prekindergarten Teacher: Jhon Sheets MD Potassium [Moles/Vol] 3.8 mmol/L Normal 3.5-5.[address] [facility] Comment on above: Performed By: #### 6 399, 7600, 99238 #### [facility] of [address], [address] [place] [address] Prekindergarten Teacher: Jhon Sheets MD Protein [Mass/Vol] 7.2 g/dL Normal 6.1-8.1 [facility] Comment on above: Performed By: #### 6 399, 7600, 34046 #### [facility] of [address], [address] [place] [address] Prekindergarten Teacher: Jhon Sheets MD Sodium [Moles/Vol] 142 mmol/L Normal 135-146 [facility] Comment on above: Performed By: #### 6 399, 7600, 34559 #### [facility] [place] [address] Prekindergarten Teacher: Jhon Sheets MD Urea nitrogen [Mass/Vol] 28 mg/dL High 7-25 [facility] Comment on above: Performed By: #### 6 399, 7600, 34356 #### [facility] [address], [address] [place] [address] Prekindergarten Teacher: Jhon Sheets MD Urea nitrogen/Creatinine [Mass ratio] 17 mg/mg Normal 6-22 [facility] Comment on above: Performed By: #### 6 399, 7600, 99162 #### [facility] [place] [address] Prekindergarten Teacher: Jhon Sheets MD LIPID PANEL, [facility] 03-06 Cholesterol [Mass/Vol] 204 mg/dL High <200 [facility] Comment on above: Order Comment: FASTI NG:YES FASTING: YES Performed By: #### 6 399, 7600, 82398 #### [facility] [place] [address] Prekindergarten Teacher: Jhon Sheets MD Cholesterol in HDL [Mass/Vol] 49 mg/dL Low > OR = 50 [facility] Comment on above: Order Comment: FASTI NG:YES FASTING: YES Performed By: #### 6 399, 7600, 88800 #### [facility] [place] [address] Prekindergarten Teacher: Jhon Sheets MD Cholesterol in LDL [Mass/Vol] [...] LDL-C. Jonny SS et al. WILMAN. 2013;310(19): 2539-0897 (http://education.[employer].Micrima/faq/DNU440) Performed By: #### 6 399, 7600, 48932 #### [facility] [address], [address] [place] [address] Prekindergarten Teacher: Jhon Sheets MD Cholesterol.total/Sary sterol in HDL [Mass ratio] 4.2 {ratio} Normal <5.0 [facility] Comment on above: Order Comment: FASTI NG:YES FASTING: YES Performed By: #### 6 399, 7600, 13952 #### [facility] [address], [address] [place] [address] Prekindergarten Teacher: Jhon Sheets MD NON HDL CHOLESTEROL 155 mg/dL (calc) High <130 [facility] Comment on above: Order Comment: FASTI NG:YES FASTING: YES Result Comment: For patients with diabetes plus 1 major ASCVD risk factor, treating to a non-HDL-C goal of <100 mg/dL (LDL-C of <70 mg/dL) is considered a therapeutic option. Performed By: #### 6 399, 7600, 88090 #### [facility] [address], [address] [place] [address] Prekindergarten Teacher: Jhon Sheets MD Triglyceride [Mass/Vol] 194 mg/dL High <150 [facility] Comment on above: Order Comment: FASTI NG:YES FASTING: YES Performed By: #### 6 399, 7600, 96104 #### [facility] [address], [address] [place] [address] Prekindergarten Teacher: Jhon Sheets MD Comprehensive metabolic 2000 panelon 03-14-2022 Albumin [Mass/Vol] 4.1 g/dL 3.9 - 4.9 g/dL [facility] ALP [Catalytic activity/Vol] 82 U/L 34 - 123 U/L [facility] ALT [Catalytic activity/Vol] 19 U/L 7 - 38 U/L [facility] Anion gap [Moles/Vol] 13 mmol/L 9 - 18 mmol/L [facility] AST [Catalytic activity/Vol] 25 U/L 13 - 35 U/L [facility] Bilirubin [Mass/Vol] 0.2 mg/dL 0.2 - 1 .3 mg/dL [facility] Calcium [Mass/Vol] 9.2 mg/dL 8.5 - 10. 2 mg/dL [facility] Chloride [Moles/Vol] 105 mmol/L 97 - 10 5 mmol/L [facility] CO2 [Moles/Vol] 25 mmol/L 22 - 30 mmol/L [facility] Creatinine [Mass/Vol] 1.59 mg/dL High 0.58 - 0.96 mg/dL [facility] Estimated Glomerular Filtration Rate 33 mL/min/1.73m Low >=60 mL/min/1.73m [facility] Glucose [Mass/Vol] 96 mg/dL 74 - 99 mg/dL [facility] Potassium [Moles/Vol] 4.3 mmol/L 3.7 - 5.1 mmol/L [facility] Protein [Mass/Vol] 7.5 g/dL 6.3 - 8.0 g/dL [facility] Sodium [Moles/Vol] 143 mmol/L 136 - 144 mmol/L [facility] Urea nitrogen [Mass/Vol] 29 mg/dL High 7 - 21 mg/dL [facility] MARGOTH SCREENINGon 02-20-2022 [facility] PVR Reporton 07-10-2021 PVR Report Patient: JACKELYN [...] arteries 10 years ago. Procedure: The supervising stripper latex, Leann Tyler, reviewed the patient's baseline ECG [...] 07/09/2021 Date of Final Report: 07/09/2021 Normal [facility] Stress Test Reporton 10-05-2 021 Stress Test [...] 07/09/2021 Date of Final Report: 07/09/2021 Normal [facility] Ambulatory Clinical Summaryo n 07-04-2021 Ambulatory Clinical [...] for visit Day With Date Time Where [facility] Nuclear Stress Test DR STOUT CHEST PAIN [...] call to get immediate medical attention! Normal [facility] Amb Office-Progress Notes-Pr ovideron 06-27-2021 Amb Office-Progress Notes-Provider Chief Complaint FOLLOW UP [facility] AFIB History of Present Illness Mrs. Bradshaw [...] oral tablet Allergies No active allergies Normal [facility] COVID-19 virus antigen assay SARS-CoV-2 (COVID-19) Ag IA.rapid Ql (Resp) [facility] Work Phone: Vital Signs Date Time Vital Sign Value Performing Clinician Facility 06-15-2025 09:17-0400 Body mass index (BMI) [Ratio] 26.24 kg/m2 Leonid Graham MD Work Phone: [facility] 06-15-2025 09:17-0400 Body temperature 97.9 [degF] Leonid Graham MD Work Phone: [facility] 06-15-2025 09:17-0400 Body weight 67.2 kg Leonid Graham MD Work Phone: [facility] 06-15-2025 09:17-0400 Diastolic blood pressure 80 mm[Hg] Leonid Graham MD Work Phone: [facility] 06-15-2025 09:17-0400 Heart rate 60 /min Leonid Graham MD Work Phone: [facility] 06-15-2025 09:17-0400 Respiratory rate 16 /min Leonid Graham MD Work Phone: [facility] 06-15-2025 09:17-0400 SaO2% (BldA) [Mass fraction] 98 % Leonid Graham MD Work Phone: [facility] 06-15-2025 09:17-0400 Systolic blood pressure 174 mm[Hg] Leonid Graham MD Work Phone: [facility] 03-17-2025 08:09-0400 Body temperature 96.4 [degF] Injection Work Phone: [facility] 03-17-2025 08:09-0400 Diastolic blood pressure 66 mm[Hg] Injection Work Phone: [facility] 03-17-2025 08:09-0400 Heart rate 53 /min Injection Work Phone: [facility] 03-17-2025 08:09-0400 Respiratory rate 12 /min Injection Work Phone: [facility] 03-17-2025 08:09-0400 SaO2% (BldA) [Mass fraction] 99 % Injection Work Phone: [facility] 03-17-2025 08:09-0400 Systolic blood pressure 154 mm[Hg] Injection Work Phone: [facility] 01-20-2025 08:43-0400 Body mass index (BMI) [Ratio] 27.88 kg/m2 Leonid Graham MD Work Phone: [facility] 01-20-2025 08:43-0400 Body temperature 97.9 [degF] Leonid Graham MD Work Phone: [facility] 01-20-2025 08:43-0400 Body weight 71.4 kg Leonid Graham MD Work Phone: [facility] 01-20-2025 08:43-0400 Diastolic blood pressure 70 mm[Hg] Leonid Graham MD Work Phone: [facility] 01-20-2025 08:43-0400 Heart rate 62 /min Leonid Graham MD Work Phone: [facility] 01-20-2025 08:43-0400 Respiratory rate 12 /min Leonid Graham MD Work Phone: [facility] 01-20-2025 08:43-0400 SaO2% (BldA) [Mass fraction] 98 % Leonid Graham MD Work Phone: [facility] 01-20-2025 08:43-0400 Systolic blood pressure 168 mm[Hg] Leonid Graham MD Work Phone: [facility] 11-25-2024 08:08-0500 Body temperature 97.9 [degF] Injection Work Phone: [facility] 11-25-2024 08:08-0500 Diastolic blood pressure 60 mm[Hg] Injection Work Phone: [facility] 11-25-2024 08:08-0500 Heart rate 62 /min Injection Work Phone: [facility] 11-25-2024 08:08-0500 Respiratory rate 12 /min Injection Work Phone: [facility] 11-25-2024 08:08-0500 SaO2% (BldA) [Mass fraction] 99 % Injection Work Phone: [facility] 11-25-2024 08:08-0500 Systolic blood pressure 156 mm[Hg] Injection Work Phone: [facility] 10-24-2024 08:48-0500 Body mass index (BMI) [Ratio] 28.43 kg/m2 Leonid Graham MD Work Phone: [facility] 10-24-2024 08:48-0500 Body temperature 97.9 [degF] Leonid Graham MD Work Phone: [facility] 10-24-2024 08:48-0500 Body weight 72.8 kg Leonid Graham MD Work Phone: [facility] Comment on above: Sivan Khan LPN 10-24-2024 08:48-0500 Diastolic blood pressure 76 mm[Hg] Leonid Graham MD Work Phone: [facility] 10-24-2024 08:48-0500 Heart rate 61 /min Leonid Graham MD Work Phone: [facility] 10-24-2024 08:48-0500 Respiratory rate 10 /min Leonid Graham MD Work Phone: [facility] 10-24-2024 08:48-0500 SaO2% (BldA) [Mass fraction] 96 % Leonid Graham MD Work Phone: [facility] 10-24-2024 08:48-0500 Systolic blood pressure 148 mm[Hg] Leonid Graham MD Work Phone: [facility] 06-22-2024 09:56-0400 Body mass index (BMI) [Ratio] 29.95 kg/m2 Janett Serafin DATA MIGRATION CONSULTANT.ROBOTICS MECHANIC Work Phone: [facility] 06-22-2024 09:56-0400 Body temperature 97.2 [degF] Janett Serafin DATA MIGRATION CONSULTANT.ROBOTICS MECHANIC Work Phone: [facility] 06-22-2024 09:56-0400 Body weight 76.7 kg Janett Serafin DATA MIGRATION CONSULTANT.ROBOTICS MECHANIC Work Phone: [facility] 06-22-2024 09:56-0400 Diastolic blood pressure 80 mm[Hg] Janett Serafin DATA MIGRATION CONSULTANT.ROBOTICS MECHANIC Work Phone: [facility] 06-22-2024 09:56-0400 Heart rate 65 /min Janett Serafin DATA MIGRATION CONSULTANT.ROBOTICS MECHANIC Work Phone: [facility] 06-22-2024 09:56-0400 Respiratory rate 10 /min Janett Serafin DATA MIGRATION CONSULTANT.ROBOTICS MECHANIC Work Phone: [facility] 06-22-2024 09:56-0400 SaO2% (BldA) [Mass fraction] 99 % Janett Serafin DATA MIGRATION CONSULTANT.ROBOTICS MECHANIC Work Phone: [facility] 06-22-2024 09:56-0400 Systolic blood pressure 132 mm[Hg] Janett Serafin DATA MIGRATION CONSULTANT.ROBOTICS MECHANIC Work Phone: [facility] 04-01-2024 10:23-0400 Body temperature 97.59 [degF] Injection Mc Work Phone: [facility] 04-01-2024 10:23-0400 Diastolic blood pressure 66 mm[Hg] Injection Mc Work Phone: [facility] 04-01-2024 10:23-0400 Heart rate 63 /min Injection Mc Work Phone: [facility] 04-01-2024 10:23-0400 Respiratory rate 18 /min Injection Mc Work Phone: [facility] 04-01-2024 10:23-0400 SaO2% (BldA) [Mass fraction] 99 % Injection Mc Work Phone: [facility] 04-01-2024 10:23-0400 Systolic blood pressure 144 mm[Hg] Injection Mc Work Phone: [facility] 03-22-2024 12:42-0400 Body temperature 97.5 [degF] Delicia Lazo PT Work Phone: [facility] 03-22-2024 12:42-0400 Diastolic blood pressure 60 mm[Hg] Delicia Lazo PT Work Phone: [facility] 03-22-2024 12:42-0400 Heart rate 61 /min Delicia Lazo PT Work Phone: [facility] 03-22-2024 12:42-0400 Respiratory rate 18 /min Delicia Lazo PT Work Phone: [facility] 03-22-2024 12:42-0400 SaO2% (BldA) [Mass fraction] 99 % Delicia Lazo PT Work Phone: [facility] 03-22-2024 12:42-0400 Systolic blood pressure 152 mm[Hg] Delicia Lazo PT Work Phone: [facility] 03-17-2024 17:52-0400 Heart rate 75 /min Alok Sabillon TOOL MACHINIST Work Phone: [facility] 03-17-2024 17:52-0400 Respiratory rate 19 /min Alok Sabillon TOOL MACHINIST Work Phone: [facility] 03-17-2024 17:52-0400 SaO2% (BldA) [Mass fraction] 95 % Alok Blackert TOOL MACHINIST Work Phone: [facility] 03-17-2024 15:36-0400 Body temperature 97.7 [degF] Alok Blackert TOOL MACHINIST Work Phone: [facility] 03-17-2024 15:36-0400 Diastolic blood pressure 70 mm[Hg] Alok Blackert TOOL MACHINIST Work Phone: [facility] 03-17-2024 15:36-0400 Systolic blood pressure 136 mm[Hg] Alok Blackert TOOL MACHINIST Work Phone: [facility] 03-17-2024 11:35-0400 Heart rate 62 /min Lori Brandy OT/L Work Phone: [facility] 03-17-2024 11:35-0400 SaO2% (BldA) [Mass fraction] 92 % Lori Brandy OT/L Work Phone: [facility] 03-17-2024 11:11-0400 Body temperature 97.7 [degF] Lori Brandy OT/L Work Phone: [facility] 03-17-2024 11:11-0400 Diastolic blood pressure 70 mm[Hg] Lori Brandy OT/L Work Phone: [facility] 03-17-2024 11:11-0400 Respiratory rate 16 /min Lori Brandy OT/L Work Phone: [facility] 03-17-2024 11:11-0400 Systolic blood pressure 138 mm[Hg] Lori Brandy OT/L Work Phone: [facility] 03-14-2024 10:38-0400 Body temperature 97.39 [degF] Alok Ariasert TOOL MACHINIST Work Phone: [facility] 03-14-2024 10:38-0400 Diastolic blood pressure 82 mm[Hg] Alok Blackert TOOL MACHINIST Work Phone: [facility] 03-14-2024 10:38-0400 Heart rate 64 /min Alok Blackert TOOL MACHINIST Work Phone: [facility] 03-14-2024 10:38-0400 Respiratory rate 17 /min Alok Sabillon TOOL MACHINIST Work Phone: [facility] 03-14-2024 10:38-0400 SaO2% (BldA) [Mass fraction] 99 % lAok Sabillon TOOL MACHINIST Work Phone: [facility] 03-14-2024 10:38-0400 Systolic blood pressure 126 mm[Hg] Alok Sabillon TOOL MACHINIST Work Phone: [facility] 03-10-2024 10:15-0400 Diastolic blood pressure 82 mm[Hg] Piedad Veto TOOL MACHINIST Work Phone: [facility] 03-10-2024 10:15-0400 Heart rate 67 /min Piedad Veto TOOL MACHINIST Work Phone: [facility] 03-10-2024 10:15-0400 SaO2% (BldA) [Mass fraction] 99 % Piedad Veto TOOL MACHINIST Work Phone: [facility] 03-10-2024 10:15-0400 Systolic blood pressure 140 mm[Hg] Piedad Veto TOOL MACHINIST Work Phone: [facility] 03-10-2024 10:01-0400 Body temperature 98.01 [degF] Piedad Veto TOOL MACHINIST Work Phone: [facility] 03-10-2024 10:01-0400 Respiratory rate 18 /min Piedad Veto TOOL MACHINIST Work Phone: [facility] 03-07-2024 10:24-0400 Diastolic blood pressure 80 mm[Hg] Lori Brandy OT/L Work Phone: [facility] 03-07-2024 10:24-0400 Respiratory rate 18 /min Lori Brandy OT/L Work Phone: [facility] 03-07-2024 10:24-0400 Systolic blood pressure 132 mm[Hg] Lori Brandy OT/L Work Phone: [facility] 03-07-2024 09:36-0400 Heart rate 88 /min Piedad Veto TOOL MACHINIST Work Phone: [facility] Comment on above: after walking 03-07-2024 09:36-0400 SaO2% (BldA) [Mass fraction] 99 % Piedad Veto TOOL MACHINIST Work Phone: [facility] 03-07-2024 09:06-0400 Body temperature 97.9 [degF] Piedad Veto TOOL MACHINIST Work Phone: [facility] 03-07-2024 09:06-0400 Diastolic blood pressure 78 mm[Hg] Piedad Veto TOOL MACHINIST Work Phone: [facility] 03-07-2024 09:06-0400 Respiratory rate 18 /min Piedad Veto TOOL MACHINIST Work Phone: [facility] 03-07-2024 09:06-0400 Systolic blood pressure 128 mm[Hg] Piedad Veto TOOL MACHINIST Work Phone: [facility] 03-04-2024 11:30-0400 Body mass index (BMI) [Ratio] 30.62 kg/m2 Leonid Graham MD Work Phone: [facility] 03-04-2024 11:30-0400 Body temperature 97.2 [degF] Leonid Graham MD Work Phone: [facility] 03-04-2024 11:30-0400 Body weight 78.4 kg Leonid Graham MD Work Phone: [facility] 03-04-2024 11:30-0400 Diastolic blood pressure 55 mm[Hg] Leonid Graham MD Work Phone: [facility] 03-04-2024 11:30-0400 Heart rate 63 /min Leonid Graham MD Work Phone: [facility] 03-04-2024 11:30-0400 Respiratory rate 16 /min Leonid Graham MD Work Phone: [facility] 03-04-2024 11:30-0400 SaO2% (BldA) [Mass fraction] 99 % Leonid Graham MD Work Phone: [facility] 03-04-2024 11:30-0400 Systolic blood pressure 148 mm[Hg] Leonid Graham MD Work Phone: [facility] 03-03-2024 10:35-0400 Body temperature 98.71 [degF] Piedad Veto TOOL MACHINIST Work Phone: [facility] 03-03-2024 10:35-0400 Diastolic blood pressure 82 mm[Hg] Piedad Veto TOOL MACHINIST Work Phone: [facility] 03-03-2024 10:35-0400 Heart rate 77 /min Piedad Veto TOOL MACHINIST Work Phone: [facility] 03-03-2024 10:35-0400 SaO2% (BldA) [Mass fraction] 99 % Piedad Veto TOOL MACHINIST Work Phone: [facility] 03-03-2024 10:35-0400 Systolic blood pressure 140 mm[Hg] Piedad Veto TOOL MACHINIST Work Phone: [facility] 03-02-2024 11:31-0400 Body temperature 97.59 [degF] Blanca Most RN Work Phone: [facility] 03-02-2024 11:31-0400 Diastolic blood pressure 74 mm[Hg] Blanca Most RN Work Phone: [facility] 03-02-2024 11:31-0400 Heart rate 68 /min Blanca Most RN Work Phone: [facility] 03-02-2024 11:31-0400 Respiratory rate 1 /min Blanca Most RN Work Phone: [facility] 03-02-2024 11:31-0400 SaO2% (BldA) [Mass fraction] 99 % Blanca Most RN Work Phone: [facility] 03-02-2024 11:31-0400 Systolic blood pressure 132 mm[Hg] Blanca Most RN Work Phone: [facility] 03-01-2024 12:12-0400 Body temperature 97.59 [degF] Lori Brandy OT/L Work Phone: [facility] 03-01-2024 12:12-0400 Diastolic blood pressure 70 mm[Hg] Lori Brandy OT/L Work Phone: [facility] 03-01-2024 12:12-0400 Heart rate 65 /min Lori Brandy OT/L Work Phone: [facility] 03-01-2024 12:12-0400 Respiratory rate 18 /min Lori Brandy OT/L Work Phone: [facility] 03-01-2024 12:12-0400 SaO2% (BldA) [Mass fraction] 99 % Lori Brandy OT/L Work Phone: [facility] 03-01-2024 12:12-0400 Systolic blood pressure 118 mm[Hg] Lori Brandy OT/L Work Phone: [facility] 03-01-2024 11:10-0400 Body temperature 98.4 [degF] Piedad Veto TOOL MACHINIST Work Phone: [facility] 03-01-2024 11:10-0400 Diastolic blood pressure 82 mm[Hg] Piedad Veto TOOL MACHINIST Work Phone: [facility] 03-01-2024 11:10-0400 Heart rate 76 /min Piedad Veto TOOL MACHINIST Work Phone: [facility] 03-01-2024 11:10-0400 SaO2% (BldA) [Mass fraction] 98 % Piedad Veto TOOL MACHINIST Work Phone: [facility] 03-01-2024 11:10-0400 Systolic blood pressure 140 mm[Hg] Piedad Veto TOOL MACHINIST Work Phone: [facility] 02-26-2024 13:40-0400 Body temperature 97.9 [degF] Delicia Lazo PT Work Phone: [facility] 02-26-2024 13:40-0400 Diastolic blood pressure 70 mm[Hg] Delicia Lazo PT Work Phone: [facility] 02-26-2024 13:40-0400 Heart rate 62 /min Delicia Lazo PT Work Phone: [facility] 02-26-2024 13:40-0400 Respiratory rate 18 /min Delicia Violet PT Work Phone: [facility] 02-26-2024 13:40-0400 SaO2% (BldA) [Mass fraction] 98 % Delicia RaulflorentinoHolland PT Work Phone: [facility] 02-26-2024 13:40-0400 Systolic blood pressure 124 mm[Hg] Delicia Lazo PT Work Phone: [facility] 02-25-2024 16:28-0400 Body temperature 98.01 [degF] Brianne Dominique RN Work Phone: [facility] 02-25-2024 16:28-0400 Diastolic blood pressure 78 mm[Hg] Brianne Dominique RN Work Phone: [facility] 02-25-2024 16:28-0400 Heart rate 73 /min Brianne Dominique RN Work Phone: [facility] 02-25-2024 16:28-0400 Respiratory rate 16 /min Brianne Dominique RN Work Phone: [facility] 02-25-2024 16:28-0400 SaO2% (BldA) [Mass fraction] 98 % Brianne Dominique RN Work Phone: [facility] 02-25-2024 16:28-0400 Systolic blood pressure 138 mm[Hg] Brianne Dominique RN Work Phone: [facility] 02-25-2024 13:09-0400 Body temperature 97.81 [degF] Lori Brandy OT/L Work Phone: [facility] 02-25-2024 13:09-0400 Diastolic blood pressure 72 mm[Hg] Lori Brandy OT/L Work Phone: [facility] 02-25-2024 13:09-0400 Heart rate 62 /min Lori Brandy OT/L Work Phone: [facility] 02-25-2024 13:09-0400 Respiratory rate 18 /min Lori Brandy OT/L Work Phone: [facility] 02-25-2024 13:09-0400 SaO2% (BldA) [Mass fraction] 99 % Lori Brandy OT/L Work Phone: [facility] 02-25-2024 13:09-0400 Systolic blood pressure 130 mm[Hg] Lori Brandy OT/L Work Phone: [facility] 02-23-2024 13:43-0400 Diastolic blood pressure 70 mm[Hg] Bianca Katia PT Work Phone: [facility] 02-23-2024 13:43-0400 Heart rate 72 /min Bianca Katia PT Work Phone: [facility] 02-23-2024 13:43-0400 SaO2% (BldA) [Mass fraction] 99 % Bianca Katia PT Work Phone: [facility] 02-23-2024 13:43-0400 Systolic blood pressure 134 mm[Hg] Bianca Katia PT Work Phone: [facility] 02-23-2024 12:45-0400 Body mass index (BMI) [Ratio] 24.37 kg/m2 Bianca Katia PT Work Phone: [facility] 02-23-2024 12:45-0400 Body temperature 98.2 [degF] Bianca Katia PT Work Phone: [facility] 02-23-2024 12:45-0400 Body weight 62.4 kg Bianca Katia PT Work Phone: [facility] 02-23-2024 12:45-0400 Respiratory rate 16 /min Bianca Katia PT Work Phone: [facility] 01-17-2024 11:44-0400 Body temperature 97.1 [degF] Dr. Yoav Chakraborty Work Phone: [facility] 01-17-2024 11:44-0400 Diastolic blood pressure 82 mm[Hg] Dr. Yoav Chakraborty Work Phone: [facility] 01-17-2024 11:44-0400 Heart rate 73 /min Dr. Yoav Chakraborty Work Phone: [facility] 01-17-2024 11:44-0400 Respiratory rate 16 /min Dr. Yoav Chakraborty Work Phone: [facility] 01-17-2024 11:44-0400 SaO2% (BldA) [Mass fraction] 93 % Dr. Yoav Chakraborty Work Phone: [facility] 01-17-2024 11:44-0400 Systolic blood pressure 159 mm[Hg] Dr. Yoav Chakraborty Work Phone: [facility] 01-17-2024 09:22-0400 Inhaled oxygen flow rate 2 L/min Dr. Yoav Chakraborty Work Phone: [facility] 01-16-2024 15:12-0400 Body height 157.[address] Yoav Chakraborty Work Phone: [facility] 01-16-2024 15:12-0400 Body weight 75.[address] Yoav Chakraborty Work Phone: [facility] 01-12-2024 18:38-0400 Body mass index (BMI) [Ratio] 30.4 kg/m2 Dr. Yoav Chakraborty Work Phone: [facility] 01-12-2024 17:00-0400 Body temperature 98.1 [degF] [facility] 01-12-2024 17:00-0400 Diastolic blood pressure 72 mm[Hg] [facility] 01-12-2024 17:00-0400 Heart rate 73 /min [facility] 01-12-2024 17:00-0400 Respiratory rate 19 /min [facility] 01-12-2024 17:00-0400 SaO2% (BldA) [Mass fraction] 94 % [facility] 01-12-2024 17:00-0400 Systolic blood pressure 132 mm[Hg] [facility] 01-12-2024 14:02-0400 Body height 157.48 cm [facility] 01-12-2024 14:02-0400 Body mass index (BMI) [Ratio] 31.7 kg/m2 [facility] 01-12-2024 14:02-0400 Body weight 78.7 kg [facility] 01-08-2024 10:17-0400 Body temperature 97.81 [degF] Injection Work Phone: [facility] 01-08-2024 10:17-0400 Diastolic blood pressure 74 mm[Hg] Injection Work Phone: [facility] 01-08-2024 10:17-0400 Heart rate 67 /min Injection Work Phone: [facility] 01-08-2024 10:17-0400 Respiratory rate 16 /min Injection Work Phone: [facility] 01-08-2024 10:17-0400 SaO2% (BldA) [Mass fraction] 99 % Injection Work Phone: [facility] 01-08-2024 10:17-0400 Systolic blood pressure 138 mm[Hg] Injection Work Phone: [facility] 12-11-2023 08:59-0500 Body temperature 97.3 [degF] Leonid Graham MD Work Phone: [facility] 12-11-2023 08:59-0500 Diastolic blood pressure 65 mm[Hg] Leonid Graham MD Work Phone: [facility] 12-11-2023 08:59-0500 Heart rate 60 /min Leonid Graham MD Work Phone: [facility] 12-11-2023 08:59-0500 Respiratory rate 16 /min Leonid Graham MD Work Phone: [facility] 12-11-2023 08:59-0500 SaO2% (BldA) [Mass fraction] 97 % Leonid Graham MD Work Phone: [facility] 12-11-2023 08:59-0500 Systolic blood pressure 161 mm[Hg] Leonid Graham MD Work Phone: [facility] 11-13-2023 09:55-0500 Body temperature 97 [degF] Injection Work Phone: [facility] 11-13-2023 09:55-0500 Diastolic blood pressure 57 mm[Hg] Injection Work Phone: [facility] 11-13-2023 09:55-0500 Heart rate 61 /min Injection Work Phone: [facility] 11-13-2023 09:55-0500 Respiratory rate 18 /min Injection Work Phone: [facility] 11-13-2023 09:55-0500 SaO2% (BldA) [Mass fraction] 100 % Injection Work Phone: [facility] 11-13-2023 09:55-0500 Systolic blood pressure 149 mm[Hg] Injection Work Phone: [facility] 08-07-2023 10:44-0400 Body temperature 96.8 [degF] Leonid Graham MD Work Phone: [facility] 08-07-2023 10:44-0400 Body weight 77.6 kg Leonid Graham MD Work Phone: [facility] 08-07-2023 10:44-0400 Diastolic blood pressure 72 mm[Hg] Leonid Graham MD Work Phone: [facility] 08-07-2023 10:44-0400 Heart rate 60 /min Leonid Graham MD Work Phone: [facility] 08-07-2023 10:44-0400 SaO2% (BldA) [Mass fraction] 97 % Leonid Graham MD Work Phone: [facility] 08-07-2023 10:44-0400 Systolic blood pressure 158 mm[Hg] Leonid Graham MD Work Phone: [facility] 05-29-2023 09:06-0400 Body temperature 96.91 [degF] Injection Mc Work Phone: [facility] 05-29-2023 09:06-0400 Diastolic blood pressure 82 mm[Hg] Injection Mc Work Phone: [facility] 05-29-2023 09:06-0400 Heart rate 64 /min Injection Mc Work Phone: [facility] 05-29-2023 09:06-0400 Respiratory rate 18 /min Injection Mc Work Phone: [facility] 05-29-2023 09:06-0400 SaO2% (BldA) [Mass fraction] 98 % Injection Mc Work Phone: [facility] 05-29-2023 09:06-0400 Systolic blood pressure 159 mm[Hg] Injection Mc Work Phone: [facility] 05-01-2023 09:41-0400 Body temperature 97.11 [degF] Injection Mc Work Phone: [facility] 05-01-2023 09:41-0400 Diastolic blood pressure 89 mm[Hg] Injection Mc Work Phone: [facility] 05-01-2023 09:41-0400 Heart rate 66 /min Injection Mc Work Phone: [facility] 05-01-2023 09:41-0400 Respiratory rate 18 /min Injection Mc Work Phone: [facility] 05-01-2023 09:41-0400 SaO2% (BldA) [Mass fraction] 99 % Injection Mc Work Phone: [facility] 05-01-2023 09:41-0400 Systolic blood pressure 152 mm[Hg] Injection Mc Work Phone: [facility] 04-03-2023 08:52-0400 Body temperature 98.71 [degF] Injection Mc Work Phone: [facility] 04-03-2023 08:52-0400 Diastolic blood pressure 57 mm[Hg] Injection Mc Work Phone: [facility] 04-03-2023 08:52-0400 Heart rate 63 /min Injection Mc Work Phone: [facility] 04-03-2023 08:52-0400 Respiratory rate 16 /min Injection Mc Work Phone: [facility] 04-03-2023 08:52-0400 SaO2% (BldA) [Mass fraction] 95 % Injection Mc Work Phone: [facility] 04-03-2023 08:52-0400 Systolic blood pressure 145 mm[Hg] Injection Mc Work Phone: [facility] 03-08-2023 21:31-0400 Diastolic blood pressure 79 mm[Hg] [facility] 03-08-2023 21:31-0400 Heart rate 57 /min [facility] 03-08-2023 21:31-0400 Respiratory rate 18 /min [facility] 03-08-2023 21:31-0400 SaO2% (BldA) [Mass fraction] 97 % [facility] 03-08-2023 21:31-0400 Systolic blood pressure 210 mm[Hg] [facility] 03-08-2023 17:45-0400 Body mass index (BMI) [Ratio] 30.8 kg/m2 [facility] 03-08-2023 17:45-0400 Body weight 76.4 kg [facility] 03-08-2023 17:05-0400 Body height 157.48 cm [facility] 03-08-2023 17:05-0400 Body temperature 98.3 [degF] [facility] 01-09-2023 09:10-0400 Body temperature 97.5 [degF] Injection Work Phone: [facility] 01-09-2023 09:10-0400 Diastolic blood pressure 81 mm[Hg] Injection Mc Work Phone: [facility] 01-09-2023 09:10-0400 Heart rate 65 /min Injection Work Phone: [facility] 01-09-2023 09:10-0400 Respiratory rate 16 /min Injection Work Phone: [facility] 01-09-2023 09:10-0400 SaO2% (BldA) [Mass fraction] 98 % Injection Work Phone: [facility] 01-09-2023 09:10-0400 Systolic blood pressure 167 mm[Hg] Injection Work Phone: [facility] 12-12-2022 10:15-0500 Body temperature 98.01 [degF] Leonid Graham MD Work Phone: [facility] 12-12-2022 10:15-0500 Body weight 75.75 kg Leonid Graham MD Work Phone: [facility] 12-12-2022 10:15-0500 Diastolic blood pressure 80 mm[Hg] Leonid Graham MD Work Phone: [facility] 12-12-2022 10:15-0500 Heart rate 68 /min Leonid Graham MD Work Phone: [facility] 12-12-2022 10:15-0500 Respiratory rate 18 /min Leonid Graham MD Work Phone: [facility] 12-12-2022 10:15-0500 SaO2% (BldA) [Mass fraction] 98 % Leonid Graham MD Work Phone: [facility] 12-12-2022 10:15-0500 Systolic blood pressure 142 mm[Hg] Leonid Graham MD Work Phone: [facility] 11-14-2022 08:35-0500 Body temperature 96.8 [degF] Injection Work Phone: [facility] 11-14-2022 08:35-0500 Diastolic blood pressure 72 mm[Hg] Injection Work Phone: [facility] 11-14-2022 08:35-0500 Heart rate 71 /min Injection Work Phone: [facility] 11-14-2022 08:35-0500 SaO2% (BldA) [Mass fraction] 98 % Injection Work Phone: [facility] 11-14-2022 08:35-0500 Systolic blood pressure 151 mm[Hg] Injection Work Phone: [facility] 10-17-2022 08:54-0500 Body temperature 97.11 [degF] Injection Work Phone: [facility] 10-17-2022 08:54-0500 Diastolic blood pressure 78 mm[Hg] Injection Work Phone: [facility] 10-17-2022 08:54-0500 Heart rate 67 /min Injection Work Phone: [facility] 10-17-2022 08:54-0500 SaO2% (BldA) [Mass fraction] 98 % Injection Work Phone: [facility] 10-17-2022 08:54-0500 Systolic blood pressure 150 mm[Hg] Injection Work Phone: [facility] 09-05-2022 09:40-0500 Body temperature 97.81 [degF] Leonid Graham MD Work Phone: [facility] 09-05-2022 09:40-0500 Body weight 78.93 kg Leonid Graham MD Work Phone: [facility] 09-05-2022 09:40-0500 Diastolic blood pressure 75 mm[Hg] Leonid Graham MD Work Phone: [facility] 09-05-2022 09:40-0500 Heart rate 63 /min Leonid Graham MD Work Phone: [facility] 09-05-2022 09:40-0500 Respiratory rate 18 /min Leonid Graham MD Work Phone: [facility] 09-05-2022 09:40-0500 SaO2% (BldA) [Mass fraction] 98 % Leonid Graham MD Work Phone: [facility] 09-05-2022 09:40-0500 Systolic blood pressure 138 mm[Hg] Leonid Graham MD Work Phone: [facility] 08-22-2022 12:33-0500 Body temperature 97.39 [degF] Injection Work Phone: [facility] 08-22-2022 12:33-0500 Diastolic blood pressure 77 mm[Hg] Injection Work Phone: [facility] 08-22-2022 12:33-0500 Heart rate 68 /min Injection Work Phone: [facility] 08-22-2022 12:33-0500 SaO2% (BldA) [Mass fraction] 98 % Injection Work Phone: [facility] 08-22-2022 12:33-0500 Systolic blood pressure 156 mm[Hg] Injection Work Phone: [facility] 08-06-2022 09:30-0400 Body temperature 97.2 [degF] [facility] Work Phone: 08-06-2022 08:11-0400 Diastolic blood pressure 79 mm[Hg] [facility] Work Phone: 08-06-2022 08:11-0400 Heart rate 62 /min [facility] Work Phone: 08-06-2022 08:11-0400 Respiratory rate 15 /min [facility] Work Phone: 08-06-2022 08:11-0400 SaO2% (BldA) [Mass fraction] 97 % [facility] Work Phone: 08-06-2022 08:11-0400 Systolic blood pressure 146 mm[Hg] [facility] Work Phone: 08-05-2022 19:17-0400 Body height 157.48 cm [facility] Work Phone: 08-05-2022 19:17-0400 Body mass index (BMI) [Ratio] 34.2 kg/m2 [facility] Work Phone: 08-05-2022 19:17-0400 Body weight 85 kg [facility] Work Phone: 07-11-2022 09:02-0400 Body temperature 97.5 [degF] Injection Mc Work Phone: [facility] 07-11-2022 09:02-0400 Diastolic blood pressure 61 mm[Hg] Injection Mc Work Phone: [facility] 07-11-2022 09:02-0400 Heart rate 58 /min Injection Mc Work Phone: [facility] 07-11-2022 09:02-0400 SaO2% (BldA) [Mass fraction] 97 % Injection Mc Work Phone: [facility] 07-11-2022 09:02-0400 Systolic blood pressure 163 mm[Hg] Injection Mc Work Phone: [facility] 06-13-2022 10:19-0400 Body temperature 97.81 [degF] Injection Mc Work Phone: [facility] 06-13-2022 10:19-0400 Diastolic blood pressure 74 mm[Hg] Injection Mc Work Phone: [facility] 06-13-2022 10:19-0400 Heart rate 61 /min Injection Mc Work Phone: [facility] 06-13-2022 10:19-0400 SaO2% (BldA) [Mass fraction] 100 % Injection Mc Work Phone: [facility] 06-13-2022 10:19-0400 Systolic blood pressure 159 mm[Hg] Injection Mc Work Phone: [facility] 05-16-2022 09:48-0400 Body temperature 98.6 [degF] Injection Mc Work Phone: [facility] 05-16-2022 09:48-0400 Body weight 88.36 kg Injection Mc Work Phone: [facility] 05-16-2022 09:48-0400 Diastolic blood pressure 81 mm[Hg] Injection Work Phone: [facility] 05-16-2022 09:48-0400 Heart rate 71 /min Injection Work Phone: [facility] 05-16-2022 09:48-0400 Respiratory rate 18 /min Injection Work Phone: [facility] 05-16-2022 09:48-0400 SaO2% (BldA) [Mass fraction] 97 % Injection Work Phone: [facility] 05-16-2022 09:48-0400 Systolic blood pressure 145 mm[Hg] Injection Work Phone: [facility] 04-18-2022 10:45-0400 Body temperature 97.9 [degF] Leonid Graham MD Work Phone: [facility] 04-18-2022 10:45-0400 Body weight 89.04 kg Leonid Graham MD Work Phone: [facility] 04-18-2022 10:45-0400 Diastolic blood pressure 62 mm[Hg] Leonid Graham MD Work Phone: [facility] 04-18-2022 10:45-0400 Heart rate 69 /min Leonid Graham MD Work Phone: [facility] 04-18-2022 10:45-0400 SaO2% (BldA) [Mass fraction] 96 % Leonid Graham MD Work Phone: [facility] 04-18-2022 10:45-0400 Systolic blood pressure 155 mm[Hg] Leonid Graham MD Work Phone: [facility] 03-14-2022 09:10-0400 Body temperature 97.3 [degF] Treatment Work Phone: [facility] 03-14-2022 09:10-0400 Body weight 85.78 kg Treatment Work Phone: [facility] 03-14-2022 09:10-0400 Diastolic blood pressure 68 mm[Hg] Treatment Work Phone: [facility] 03-14-2022 09:10-0400 Heart rate 63 /min Treatment Work Phone: [facility] 03-14-2022 09:10-0400 Respiratory rate 18 /min Treatment Work Phone: [facility] 03-14-2022 09:10-0400 SaO2% (BldA) [Mass fraction] 98 % Treatment Work Phone: [facility] 03-14-2022 09:10-0400 Systolic blood pressure 156 mm[Hg] Treatment Work Phone: [facility] 02-12-2022 11:04-0400 Body temperature 97.9 [degF] Treatment Work Phone: [facility] 02-12-2022 11:04-0400 Diastolic blood pressure 63 mm[Hg] Treatment Work Phone: [facility] 02-12-2022 11:04-0400 Heart rate 65 /min Treatment Work Phone: [facility] 02-12-2022 11:04-0400 SaO2% (BldA) [Mass fraction] 98 % Treatment Work Phone: [facility] 02-12-2022 11:04-0400 Systolic blood pressure 139 mm[Hg] Treatment Work Phone: [facility] Encounters Encounter Date Encounter Type Care Provider Facility Start: 08-10-2025 End: 08-10-2025 ambulatory LEONID IMMANUEL ALI Facility:[facility] Start: 08-09-2025 End: 08-09-2025 ambulatory UNKNOWN PROVIDER Facility:[facility] Start: 07-13-2025 End: 07-13-2025 ambulatory LEONID IMMANUEL ALI Facility:[facility] Start: 07-12-2025 End: 07-12-2025 ambulatory UNKNOWN PROVIDER Facility:[facility] Start: 06-15-2025 End: 06-15-2025 ambulatory [...] Start: 06-14-2025 End: 06-14-2025 ambulatory UNKNOWN PROVIDER Facility:[facility] Start: 05-12-2025 End: 05-12-2025 ambulatory Leonid Graham MD Work Phone: Hematology/Oncology Comment on above: Cancer of breast, in traductal, left (Primary Dx) Start: 05-12-2025 End: 05-12-2025 Patient encounter procedure Leonid Graham MD Work Phone: Hematology/Oncology Start: 05-12-2025 End: 05-12-2025 ambulatory LEONID GRAHAM Facility:[facility] Start: 05-11-2025 End: 05-11-2025 ambulatory UNKNOWN PROVIDER Facility:[facility] Start: 04-14-2025 End: 04-14-2025 ambulatory [...] 03-16-2025 End: 03-16-2025 ambulatory LEONID IMMANUEL GRAHAM Facility:[facility] Start: 02-17-2025 End: 02-17-2025 ambulatory Injection Riley Mayen Mc Work Phone: Hematology/Oncology Comment on above: Cancer of breast, in traductal, left (Primary Dx) Start: 02-16-2025 End: 02-16-2025 ambulatory LEONID IMMANUEL [facility] Facility:[facility] Start: 01-20-2025 End: 01-20-2025 ambulatory [...] Start: 01-20-2025 End: 01-20-2025 ambulatory YOAV CHAKRABORTY Facility:[facility] Start: 01-19-2025 End: 01-19-2025 ambulatory [facility] Facility:[facility] Start: 12-23-2024 End: 12-23-2024 ambulatory Injection Riley Mayen Mc Work Phone: Hematology/Oncology Comment on above: Cancer of breast, in traductal, left (Primary Dx) Start: 12-22-2024 End: 12-22-[facility] Start: 11-25-2024 End: 11-25-2024 ambulatory Injection Riley Mayen Mc Work Phone: Hematology/Oncology Comment on above: Cancer of breast, in traductal, left (Primary Dx) Start: 11-24-2024 End: 11-24-2024 ambulatory LEONID IMMANUEL [facility] Facility:[facility] Start: 10-24-2024 End: 10-24-2024 ambulatory Injection Riley Mayen Mc Work Phone: Hematology/Oncology Comment on above: Cancer of breast, in traductal, left (Primary Dx) Cancer of breast, in traductal, left (Primary Dx); Metastasis to bone (HCC) Start: 10-24-2024 End: 10-24-2024 Patient encounter procedure Leonid Graham MD Work Phone: Hematology/Oncology Start: 10-21-2024 End: 10-21-2024 ambulatory LEONID IMMANUEL ALI Facility:[facility] Start: 09-21-2024 End: 09-21-2024 ambulatory Injection Riley Mayen Mc Work Phone: Hematology/Oncology Comment on above: Cancer of breast, in traductal, left (Primary Dx) Start: 09-20-2024 End: 09-20-2024 [facility] Start: 09-05-2024 End: 09-05-2024 ambulatory [facility] Facility:[facility] Start: 08-22-2024 End: 08-22-2024 ambulatory Injection Riley Mayen Mc Work Phone: Hematology/Oncology Comment on above: Cancer of breast, in traductal, left (Primary Dx) Start: 08-18-2024 End: 08-18-2024 [facility] Start: 07-22-2024 End: 07-22-2024 ambulatory [...] Home visit Delicia Lazo PT Work Phone: [facility] Comment on above: PT AGENCY DC W VISIT Start: 03-17-2024 End: 03-17-2024 Home visit Lori Nava OT/L Work Phone: [facility] Comment on above: OT DISC DC W VISIT TOOL MACHINIST ROUTINE Start: 03-14-2024 End: 03-14-2024 Home visit Alok Sabillon TOOL MACHINIST Work Phone: [facility] Comment on above: TOOL MACHINIST ROUTINE Start: 03-10-2024 End: 03-10-2024 Home visit Piedad Laws TOOL MACHINIST Work Phone: [facility] Comment on above: TOOL MACHINIST ROUTINE Start: 03-07-2024 End: 03-07-2024 Home visit Piedad Laws TOOL MACHINIST Work Phone: [facility] Comment on above: TOOL MACHINIST ROUTINE OT ROUTINE Start: 03-04-2024 End: 03-04-2024 [...] 03-03-2024 End: 03-03-2024 Home visit Piedad Laws TOOL MACHINIST Work Phone: [facility] Comment on above: TOOL MACHINIST ROUTINE Start: 03-02-2024 End: 03-02-2024 Home visit Blanca Blevins RN Work Phone: [facility] Comment on above: SN DISC DC W VISIT Start: 03-01-2024 End: 03-01-2024 Home visit Piedad Laws TOOL MACHINIST Work Phone: [facility] Comment on above: TOOL MACHINIST ROUTINE OT ROUTINE Start: 02-26-2024 End: 02-26-2024 Home visit Delicia Lazo PT Work Phone: [facility] Comment on above: PT CASE MANAGEMENT V ISIT Start: 02-25-2024 End: 02-25-2024 Home visit Brianne Dominique RN Work Phone: [facility] Comment on above: SN EVAL OT EVAL Start: 02-24-2024 End: 02-24-2024 Home visit Althea Cardona RN Work Phone: [facility] Comment on above: CARE COORDINATION Start: 02-23-2024 End: 02-23-2024 Home visit Bianca Montalvo PT Work Phone: [facility] Comment on above: PT SOC Start: 02-22-2024 Telephone encounter Yoav fox MD Work Phone: [facility] Comment on above: Home Care ( to damon andino) Home Care Start: 02-21-2024 Telephone encounter Tanika Pozo [facility] Comment on above: Home Care (Confirmat ion call) Start: 01-17-2024 End: 02-19-2024 Evaluation and management of inpatient VENKAT GUTIÉRREZI Facility:[facility] Start: 01-17-2024 Non-patient / Non-visit Dr. Janna Chakraborty Work Phone: [facility] Work Phone: Start: 01-16-2024 Non-patient / Non-visit Dr. Janna Chakraborty Work Phone: [facility] Work Phone: Start: 01-15-2024 Non-patient / Non-visit Dr. Janna Chakraborty Work Phone: [facility] Work Phone: Start: 01-14-2024 Non-patient / Non-visit Dr. Janna Chakraborty Work Phone: [facility] Work Phone: Start: 01-13-2024 Non-patient / Non-visit Dr. Janna Chakraborty Work Phone: [facility] Work Phone: Start: 01-12-2024 Non-patient / Non-visit Dr. Janna Chakraborty Work Phone: [facility] Work Phone: Start: 01-12-2024 ambulatory Yoav Chakraborty Facili ty:[facility] Start: 01-12-2024 End: 01-17-2024 Evaluation and management of inpatient [facility]-Medical Surgical 3 Work Phone: Start: 01-08-2024 End: [...] (Primary Dx) Start: 08-19-2023 End: 08-19-2023 ambulatory [facility] Work Phone: Start: 08-19-2023 End: 08-19-2023 Patient encounter procedure [facility]-Laboratory, Phy Office 3rd Flr Start: 08-07-2023 End: 08-07-2023 ambulatory Leonid Graham MD Work Phone: Hematology/Oncology Comment on above: Need for influenza v accination (Primary Dx); Cancer of breast, intraductal, left Start: 08-07-2023 End: 08-07-2023 Patient encounter procedure Leonid Graham MD Work Phone: [facility] Start: 07-24-2023 End: 07-24-2023 ambulatory Injection Riley Mayen Work Phone: Hematology/Oncology Comment on above: Cancer of breast, in traductal, left (Primary Dx) Start: 06-26-2023 End: 06-26-2023 ambulatory Injection Riley Mayen Work Phone: Hematology/Oncology Comment on above: Cancer of breast, in traductal, left (Primary Dx) Start: 06-18-2023 End: 06-18-[address] Yoav Chakraborty Work Phone: [facility] Work Phone: Start: 06-18-2023 End: 06-18-[address] Yoav Chakraborty Work Phone: [facility]-Laboratory Work Phone: Start: 05-29-2023 End: 05-29-[address] Yoav Chakraborty Work Phone: [facility]-Radiology, [facility] Work Phone: Start: 05-29-2023 End: 05-29-2023 ambulatory Injection Riley Mayen Mc Work Phone: Hematology/Oncology Comment on above: Cancer of breast, in traductal, left (Primary Dx) Start: 05-02-2023 ambulatory Ailin Stanley RN [facility] Clinical Communication Start: 05-02-2023 Patient encounter procedure Ailin Stanley RN [facility] Clinical Communication Start: 05-01-2023 End: 05-01-2023 [...] encounter procedure Dr. Yoav Chakraborty Work Phone: [facility] Work Phone: Start: 03-14-2023 End: 03-14-[address] Yoav Chakraborty Work Phone: [facility] Work Phone: Start: 03-08-2023 End: 03-08-2023 Emergency department patient visit [facility]-Emergency Department Start: 03-06-2023 End: 03-06-2023 ambulatory Injection [...] encounter procedure Leonid Graham MD Work Phone: [facility] Start: 09-03-2022 End: 09-03-2022 ambulatory [facility] Work Phone: Start: 09-03-2022 End: 09-03-2022 Patient encounter procedure [facility] Start: 09-02-2022 Telephone encounter Leonid Graham MD Work Phone: Hematology/Oncology Comment on above: Insurance Authorizat ion Start: 08-22-2022 End: 08-22-2022 ambulatory Injection Riley Mayen Mc Work Phone: Hematology/Oncology Comment on above: Cancer of breast, in traductal, left (Primary Dx) Start: 08-15-2022 Telephone encounter Leonid Graham MD Work Phone: Hematology/Oncology Comment on above: Appointment Start: 08-05-2022 End: 08-06-2022 Emergency department patient visit [facility]-Emergency Department Start: 07-18-2022 End: 07-18-2022 Subsequent hospital visit by physician [facility] Radiology Comment on above: Disorientation, unsp ecified [...] left (Primary Dx) Start: 05-27-2022 ambulatory Kavita Josaaft RT(R) CT Sc an Comment on above: Radiology CT Start: 05-27-2022 Patient encounter procedure Kavita Josafat RT(R) [facility] Start: 05-16-2022 End: 05-16-2022 ambulatory Injection Riley [...] encounter procedure Leonid Graham MD Work Phone: [facility] Start: 04-12-2022 Refill Leonid Graham MD Work Phone: Hematology/Oncology Comment on above: Refill Request Start: 03-16-2022 Refill Leonid Graham MD Work Phone: Hematology/Oncology Comment on above: Refill Request Start: 03-14-2022 End: 03-14-2022 ambulatory Treatment 10 [facility] Work Phone: Hematology/Oncology Comment on above: Cancer of breast, in traductal, left (Primary Dx); Bone metastasis (HCC); Encounter for long-term (current) use of medications Refill Request Start: 02-20-2022 Documentation procedure Mammog meghan Coordinator [facility] Start: 02-20-2022 Letter encounter Mammography Coordinator [facility] Department Start: 02-20-2022 End: 02-20-2022 Subsequent hospital visit by physician Screen/Diagnostic Mammo 2 [facility] Work Phone: Mammography Comment on above: Encounter for screen ing mammogram for malignant neoplasm of breast [Z12.31] Start: 02-12-2022 End: 02-12-2022 ambulatory Treatment 8 [facility] Work Phone: Hematology/Oncology Comment on [...] DTaP,Tdap,Td Vaccine (3 - Td or Tdap) [facility] Start: 03-08-2033 Urine microalbumin profile DTaP,Tdap,Td Vaccine (2 - Td or Tdap) [facility] Start: 06-14-2028 Diabetes Screening Diabetes Screenin g [facility] Start: 05-11-2028 Diabetes Screening Diabetes Screenin g [facility] Start: 03-16-2028 Diabetes Screening Diabetes Screenin g [facility] Start: 02-17-2028 Diabetes Screening Diabetes Screenin g [facility] Start: 01-20-2028 Diabetes Screening Diabetes Screenin jaz [facility] Start: 12-23-2027 Diabetes Screening Diabetes Screenin g [facility] Start: 11-24-2027 Diabetes Screening Diabetes Screenin g [facility] Start: 10-21-2027 Diabetes Screening Diabetes Screenin jaz [facility] Start: 09-20-2027 Diabetes Screening Diabetes Screenin jaz [facility] Start: 08-18-2027 Diabetes Screening Diabetes Screenin jaz [facility] Start: 07-21-2027 Diabetes Screening Diabetes Screenin jaz [facility] Start: 06-21-2027 Diabetes Screening Diabetes Screenin jaz [facility] Start: 05-25-2027 Diabetes Screening Diabetes Screenin jaz [facility] Start: 04-28-2027 Diabetes Screening Diabetes Screenin jaz [facility] Start: 03-31-2027 Diabetes Screening Diabetes Screenfátima sebastian [facility] Start: 03-03-2027 Diabetes Screening Diabetes Screenin jaz [facility] Start: 02-10-2027 Diabetes Screening Diabetes Screenfátima sebastian [facility] Start: 01-06-2027 Diabetes Screening Diabetes Screenfátima sebastian [facility] Start: 12-09-2026 Diabetes Screening Diabetes Screenin jaz [facility] Start: 11-12-2026 Diabetes Screening Diabetes Screenin jaz [facility] Start: 08-19-2026 Diabetes Screening Diabetes Screenin g [facility] Start: 07-23-2026 Diabetes Screening Diabetes Screenin g [facility] Start: 06-25-2026 Diabetes Screening Diabetes Screenin g [facility] Start: 05-28-2026 DIABETES SCREEN DIABETES SCREEN [facility] Start: 04-30-2026 DIABETES SCREEN DIABETES SCREEN [facility] Start: 04-02-2026 DIABETES SCREEN DIABETES SCREEN [facility] Start: 03-05-2026 DIABETES SCREEN DIABETES SCREEN [facility] Start: 02-05-2026 DIABETES SCREEN DIABETES SCREEN [facility] Start: 01-08-2026 DIABETES SCREEN DIABETES SCREEN [facility] Start: 12-11-2025 DIABETES SCREEN DIABETES SCREEN [facility] Start: 11-13-2025 DIABETES SCREEN DIABETES SCREEN [facility] Start: 10-16-2025 DIABETES SCREEN DIABETES SCREEN [facility] Start: 09-14-2025 End: 09-14-2025 Follow-up encounter 09/14/2025 8:00 AM EST Visit (SP) Office Hematology/Oncology [address] [address] [place] [address] [place] [address] 3 mo follow up injection @8:00 Hematology/Oncology Comment on above: 3 mo follow up injec tion @8:00 Start: 09-07-2025 End: 09-07-2025 ambulatory 09/07/2025 8:00 AM EST Infusion Center Hematology/Oncology [address] [address] [facility] Hematology/Oncology Comment on above: [facility] Start: 08-21-2025 DIABETES SCREEN DIABETES SCREEN [facility] Start: 08-10-2025 End: 08-10-2025 ambulatory 08/10/2025 8:30 AM EST Infusion Center Hematology/Oncology [address] [address] [facility] Hematology/Oncology Comment on above: [facility] Start: 07-13-2025 End: 07-13-2025 ambulatory 07/13/2025 8:30 AM EDT Infusion Center Hematology/Oncology [address] [address] [facility] Hematology/Oncology Comment on above: [facility] Start: 07-10-2025 DIABETES SCREEN DIABETES SCREEN [facility] Start: 06-15-2025 End: 06-15-2025 ambulatory 06/15/2025 10:30 AM EDT Infusion Center Hematology/Oncology [address] [address] [facility] Hematology/Oncology Comment on above: [facility] Start: 06-15-2025 End: 06-15-2025 Follow-up encounter 06/15/2025 9:20 AM EDT Visit (SP) Office Hematology/Oncology [address] [address] [place] [address] [place] [address] follow up Hematology/Oncology Comment on above: follow up Start: 06-12-2025 DIABETES SCREEN DIABETES SCREEN [facility] Start: 06-05-2025 Influenza vaccination [facility] Start: 05-15-2025 DIABETES SCREEN DIABETES SCREEN [facility] Start: 05-12-2025 End: 05-12-2025 Follow-up encounter 05/12/2025 9:40 AM EDT Visit (SP) Office Hematology/Oncology [address] [address] [place] [address] [place] [address] 4 mo follow up Hematology/Oncology Comment on above: 4 mo follow up Start: 05-12-2025 End: 05-12-2025 ambulatory Hematology/Oncology Comment on above: done [facility] Start: 04-17-2025 DIABETES SCREEN DIABETES SCREEN [facility] Start: 04-14-2025 End: 04-14-2025 ambulatory Hematology/Oncology Comment on above: done [facility] Start: 03-17-2025 End: 03-17-2025 ambulatory 03/17/2025 8:00 AM EDT Infusion Center Hematology/Oncology [facility] [address] [address] done [facility] Hematology/Oncology Comment on above: done [facility] Start: 03-14-2025 DIABETES SCREEN DIABETES SCREEN [facility] Start: 02-17-2025 End: 02-17-2025 ambulatory 02/17/2025 8:00 AM EDT Infusion Center Hematology/Oncology [facility] [address] [address] done [facility] Hematology/Oncology Comment on above: done [facility] Start: 01-20-2025 End: 01-20-2025 ambulatory 01/20/2025 9:30 AM EDT Infusion Center Hematology/Oncology [address] [address] done [facility] Hematology/Oncology Comment on above: done [facility] Start: 01-20-2025 End: 01-20-2025 Follow-up encounter 01/20/2025 9:00 AM EDT Visit (SP) Office Hematology/Oncology [address] [address] [place] [address] [place] [address] 3 mo follow up Hematology/Oncology Comment on above: 3 mo follow up Start: 01-10-2025 DIABETES SCREEN DIABETES SCREEN [facility] Start: 12-23-2024 End: 12-23-2024 ambulatory 12/23/2024 9:30 AM EDT Infusion Center Hematology/Oncology [address] [address] done [facility] Hematology/Oncology Comment on above: done [facility] Start: 12-13-2024 DIABETES SCREEN DIABETES SCREEN [facility] Start: 11-25-2024 End: 11-25-2024 ambulatory 11/25/2024 8:30 AM EST Infusion Center Hematology/Oncology [address] [address] done [facility] Hematology/Oncology Comment on above: done [facility] Start: 10-24-2024 End: 10-24-2024 ambulatory 10/24/2024 9:00 AM EST Infusion Center Hematology/Oncology [address] [address] [facility] Hematology/Oncology Comment on above: [facility] Start: 10-24-2024 End: 10-24-2024 Follow-up encounter Hematology/Oncology Comment on above: follow up Start: 10-05-2024 Advance Directive Discussion Advance Directive Discussion [facility] Start: 10-05-2024 Medicare Advantage A nnual Wellness Visit Medicare Advantage Annual Wellness Visit [facility] Start: 09-21-2024 End: 09-21-2024 ambulatory 09/21/2024 9:00 AM EST Infusion Center Hematology/Oncology [address] [address] [facility] Hematology/Oncology Comment on above: [facility] Start: 09-21-2024 End: 09-21-2024 Follow-up encounter 09/21/2024 9:00 AM EST Infusion Center Hematology/Oncology [address] [address] follow up Hematology/Oncology Comment on above: follow up Start: 08-22-2024 End: 08-22-2024 Follow-up encounter 08/22/2024 9:00 AM EST Infusion Center Hematology/Oncology [address] [address] follow up Hematology/Oncology Comment on above: follow up Start: 07-22-2024 End: 07-22-2024 Follow-up encounter 07/22/2024 9:00 AM EDT Infusion Center Hematology/Oncology [address] [address] follow up Hematology/Oncology Comment on above: follow up Start: 06-23-2024 End: 06-23-2024 Follow-up encounter 06/23/2024 8:40 AM EDT Visit (SP) Office Hematology/Oncology [address] [address] [place] [address] [place] [address] 3 mo follow up Hematology/Oncology Comment on above: 3 mo follow up Start: 06-23-2024 End: 06-23-2024 ambulatory 06/23/2024 8:30 AM EDT Infusion Center Hematology/Oncology [address] [address] INJECTION: [facility] Hematology/Oncology Comment on above: INJECTION: [facility] Start: 06-22-2024 End: 06-22-2024 ambulatory 06/22/2024 10:30 AM EDT Infusion Center Hematology/Oncology [address] [address] INJECTION: [facility] Hematology/Oncology Comment on above: INJECTION: [facility] Start: 06-22-2024 End: 06-22-2024 Follow-up encounter 06/22/2024 10:00 AM EDT Visit (SP) Office Hematology/Oncology [address] [address] Janett Betancourt APRN.ROBOTICS MECHANIC [address] [place] [address] follow up Hematology/Oncology Comment on above: follow up Start: 06-05-2024 Covid-19 Vaccine () Covid-19 Vaccine () [facility] Start: 06-05-2024 Covid-19 Vaccine () Covid-19 Vaccine () [facility] Start: 06-05-2024 Influenza vaccination Influenza Vacc ine (#1) [facility] Start: 05-27-2024 End: 05-27-2024 ambulatory 05/27/2024 10:00 AM EDT Infusion Center Hematology/Oncology [address] [address] INJECTION: [facility] Hematology/Oncology Comment on above: INJECTION: [facility] Start: 04-29-2024 End: 04-29-2024 ambulatory 04/29/2024 10:00 AM EDT Infusion Center Hematology/Oncology [address] [address] INJECTION: [facility] Hematology/Oncology Comment on above: INJECTION: [facility] Start: 04-01-2024 End: 04-01-2024 ambulatory 04/01/2024 10:30 AM EDT Infusion Center Hematology/Oncology [address] [address] INJECTION: [facility] Hematology/Oncology Comment on above: INJECTION: [facility] Start: 03-22-2024 End: 03-22-2024 Patient encounter procedure [facility] Comment on above: [id number] L hip ORIF, WBAT Agency DC vs reassess Start: 03-17-2024 End: 03-17-2024 Home visit [facility] Comment on above: [id number] L hip ORIF, WBAT NOMNC Start: 03-16-2024 End: 03-16-2024 Home visit [facility] Comment on above: [id number], [place]/Most. wound care left heel. eval wound healing, d/c or add more visits today [id number] Start: 03-15-2024 End: 03-15-2024 Home visit [facility] Comment on above: [id number] L hip ORIF, WBAT Start: 03-14-2024 End: 03-14-2024 Home visit 03/14/2024 10:00 AM EDT Home Care Visit [facility] [address] [place] [address] Brandy, Lori, OT/L [address] [place] [address] [facility] Comment on above: [id number] Start: 03-10-2024 End: 03-10-2024 Home visit [facility] Comment on above: [id number] L hip ORIF, WBAT 84492 L hip ORIF, WBAT 9c [id number] L hip ORIF, WBAT 10-10:30 Start: 03-09-2024 End: 03-09-2024 Home visit [facility] Comment on above: [id number], Nand[place]/Most. MUD JACK NOZZLEMAN ok wound care left heel. eval wound healing, if stable, plan d/c next visit [id number] Start: 03-08-2024 End: 03-08-2024 Home visit 03/08/2024 10:00 AM EDT Home Care Visit [facility] [address] [place] [address] Veto, Piedad, TOOL MACHINIST [address] [place] [address] [facility] Comment on above: [id number] Start: 03-07-2024 End: 03-07-2024 Home visit [facility] Comment on above: [id number] L hip ORIF, WBAT [id number] Start: 03-04-2024 End: 03-04-2024 ambulatory 03/04/2024 1:00 PM EDT [facility] Hematology/Oncology [address] [address] INJECTION: [facility] Hematology/Oncology Comment on above: INJECTION: [facility] Start: 03-04-2024 End: 03-04-2024 Follow-up encounter 03/04/2024 11:40 AM EDT Visit (SP) Office Hematology/Oncology [address] [address] [place] [address] [place] [address] Breast FOLLOW UP Hematology/Oncology Comment on above: Breast FOLLOW UP Start: 03-03-2024 End: 03-03-2024 Home visit [facility] Comment on above: [id number] L hip ORIF, WBAT Start: 03-02-2024 End: 03-02-2024 Home visit [facility] Comment on above: [id number], Nandini/. MUD JACK NOZZLEMAN ok wound care left heel. Start: 03-01-2024 End: 03-01-2024 Home visit [facility] Comment on above: [id number] L hip ORIF, WBAT Start: 02-26-2024 End: 02-26-2024 Home visit 02/26/2024 1:00 PM EDT Home Care Visit [facility] [address] [place] [address] Delicia Lazo, PT [address] [place] [address] L hip ORIF, WBAT [facility] Comment on above: [id number] L hip ORIF, WBAT Start: 02-25-2024 End: 02-25-2024 Home visit [facility] Comment on above: [id number] CM [place] June luate and treat for chronic disease management & education, medication management & education and wound/skin management & education. PRESLEY [id number] OTE 02/23-02/27 T BRANDY [id number] CM [place] 02/03-02/26 Evaluate and treat for chronic disease management & education, medication management & education and wound/skin management & education. PRESLEY *Assign all follow up nursing visits to Akil Blevins Start: 02-24-2024 End: 02-24-2024 Home visit 02/24/2024 6:30 AM EDT Home Care Visit [facility] [address] [place] [address] OTE T BRANDY [facility] Comment on above: [id number] OTE T BRANDY Start: 02-23-2024 End: 02-23-2024 Patient encounter procedure 02/23/2024 12:00 PM EDT Appointment [facility] [address] [place] [address] Bianca Montalvo, PT [address] [facility] [address] CM S Calvin Huddleston [id number] 02/22/24 s/p left ORIF [facility] Care Comment on above: [id number] CM S Calvin Huddleston [id number] 02/22/24 s/p left ORIF Start: 01-17-2024 Patient discharge [facility] Start: 01-16-2024 Administration of bl ood product [facility] Start: 01-15-2024 Care of central veno us catheter [facility] Start: 01-13-2024 Provision of overbed trapeze [facility] Start: 01-13-2024 Recommendation to continue with treatment [facility] Start: 01-13-2024 Ambulation therapy management [facility] Start: 01-13-2024 Application of device [facility] Start: 01-13-2024 Assessment of risk o f venous thromboembolism [facility] Start: 01-13-2024 Catheterization of vein [facility] Start: 01-13-2024 Exercises [facility] Start: 01-13-2024 Following clinical pathway protocol [facility] Start: 01-13-2024 Incentive spirometry [facility] Start: 01-13-2024 Introduction of urin sheryl catheter [facility] Start: 01-13-2024 Measuring intake and output [facility] Start: 01-13-2024 Neurovascular assessment [facility] Start: 01-13-2024 Patient education [facility] Start: 01-13-2024 Procedure discontinued [facility] Start: 01-13-2024 Provision of activit y privileges [facility] Start: 01-13-2024 Referral to occupati onal therapist [facility] Start: 01-13-2024 Referral to service [facility] Start: 01-13-2024 Vital signs measurements [facility] Start: 01-13-2024 Wound care [facility] Start: 01-13-2024 [facility] Start: 01-12-2024 Oxygen therapy [facility] Start: 01-12-2024 Application of intermittent pneumatic compression device [facility] Start: 01-12-2024 Following clinical pathway protocol [facility] Start: 01-12-2024 Assessment of risk o f venous thromboembolism [facility] Start: 01-12-2024 Consultation [facility] Start: 01-12-2024 Insertion of cathete r into peripheral vein [facility] Start: 01-12-2024 Providing care accor ding to standard [facility] Start: 01-12-2024 Provision of activit y privileges [facility] Start: 01-12-2024 Referral to occupati onal therapist [facility] Start: 01-12-2024 Referral to service [facility] Start: 01-12-2024 [facility] Start: 01-12-2024 Verification routine [facility] Start: 01-12-2024 Admission procedure [facility] Start: 01-12-2024 Hospital admission, emergency, from emergency room, medical nature [facility] Start: 01-12-2024 [facility] Start: 01-12-2024 Bacteria identified in Urine by Culture [facility] Start: 10-27-2023 Shingrix Vaccine (2 of 2) Parson grix Vaccine (2 of 2) [facility] Start: 10-05-2023 Advance Directive Discussion Advance Directive Discussion [facility] Start: 10-05-2023 Behavioral Health Screening Behavioral Health Screening [facility] Start: 10-05-2023 Depression Assessment Depression Ass essment [facility] Start: 06-05-2023 Covid-19 Vaccine (4 - 2023-24 season) Covid-19 Vaccine (2022- season) [facility] Start: 06-05-2023 Influenza vaccination C [facility] Start: 03-08-2023 Blood chemistry [facility] Start: 03-08-2023 Smpl repair scalp/neck/ax/genit/trunk 2.6-7.5cm RPR S/N/AX/GEN/TRNK2.6-7.5C M [facility] Start: 10-05-2022 ADVANCE DIRECTIVE DISCUSSION ADVANCE DIRECTIVE DISCUSSION [facility] Start: 10-05-2022 DEPRESSION ASSESSMENT DEPRESSION ASS ESSMENT [facility] Start: 08-05-2022 Referral to service [facility] Work Phone: Start: 08-05-2022 Suicide precautions [facility] Work Phone: Start: 06-05-2022 Influenza vaccination C [facility] Start: 11-05-2021 COVID-19 VACCINE (4 - Booster for Pfizer series) COVID-19 VACCINE (4 - Booster for Pfizer series) [facility] Start: 10-05-2021 ADVANCE DIRECTIVE DISCUSSION ADVANCE DIRECTIVE DISCUSSION [facility] Start: 10-05-2021 COVID-19 VACCINE (4 - Booster for Pfizer series) COVID-19 VACCINE (4 - Booster for Pfizer series) [facility] Start: 10-05-2021 DEPRESSION ASSESSMENT DEPRESSION ASS ESSMENT [facility] Start: 08-30-2021 COVID-19 VACCINE (4 - Booster for Pfizer series) COVID-19 VACCINE (4 - Booster for Pfizer series) [facility] Start: 08-30-2021 COVID-19 VACCINE (4 - Pfizer series) COVID-19 VACCINE (4 - Pfizer series) [facility] Start: 02-20-2021 COVID-19 Vaccine (3 - Booster for Pfizer series) COVID-19 Vaccine (3 - Booster for Pfizer series) [facility] [employer] Start: 2005 BONE DENSITY BONE DENSITY [facility] Start: 2005 Bone Density Screening Bone Density Screening [facility] Start: 2005 Screening for osteoporosis Bone Density Screening [facility] Start: 2000 RSV Vaccine (1 - 1-d ose 60+ series) RSV Vaccine (1 - 1-dose 60+ series) [facility] Start: 1990 SHINGRIX VACCINE (1 of 2) PARSON GRIX VACCINE (1 of 2) [facility] Start: 1990 Zoster Vaccines (1 of 2) Zoste r Vaccines (1 of 2) [facility] Start: 1959 DTaP/Tdap/Td Vaccine s (1 - Tdap) DTaP/Tdap/Td Vaccines (1 - Tdap) [facility] Start: 1959 SHINGRIX VACCINE (1 of 2) PARSON GRIX VACCINE (1 of 2) [facility] Start: 1959 Urine microalbumin profile [facility] Start: 1952 Depression Screening Depression Scre ening [facility] Start: 1940 Lipid panel Lipid Panel [facility] Start: 1940 Screening for osteoporosis Bone Density Scan [facility] Anion gap measurement [facility] BUN/Creatinine ratio [facility] Calcium [Mass/volume ] in Serum or Plasma [facility] Carbon dioxide, tota l [Moles/volume] in Serum or Plasma [facility] End: 09-05-2023 CBC panel - Blood by Automated count CBC Lab Routine Cancer of breast, intraductal, left Every 3 months for 6 Occurrences starting 09/05/2022 until 09/05/2023 [facility] Work Phone: Comment on above: Every 3 months for 6 Occurrences starting 09/05/2022 until 09/05/2023 End: 03-04-2024 CBC W Auto Differential panel - Blood CBC + DIFF Lab STAT Malignant neoplasm of female breast, unspecified estrogen receptor status, unspecified laterality, unspecified site of breast (HCC) Once per month for 15 Occurrences starting 03/05/2023 until 03/04/2024, 1 completed [facility] Work Phone: Comment on above: Once per month for 1 5 Occurrences starting 03/05/2023 until 03/04/2024, 1 completed End: 03-31-2025 CBC W Auto Differential panel - Blood COMPLETE BLOOD COUNT AND DIFFERENTIAL Lab Routine Cancer of breast, intraductal, left Once per month for 15 Occurrences starting 03/31/2024 until 03/31/2025, 2 completed [facility] Work Phone: Comment on above: Once per month for 1 5 Occurrences starting 03/31/2024 until 03/31/2025, 2 completed End: 04-13-2026 CBC W Auto Differential panel - Blood COMPLETE BLOOD COUNT AND DIFFERENTIAL Lab STAT 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, estrogen receptor positive, unspecified laterality, unspecified site of breast (HCC) Once per month for 12 Occurrences starting 04/13/2025 until 04/13/2026 [facility] Work Phone: Comment on above: Once per month for 1 2 Occurrences starting 04/13/2025 until 04/13/2026 Chloride [Moles/volu me] in Serum or Plasma [facility] End: 09-05-2023 Comprehensive metabolic 2000 panel - Serum or Plasma COMP METABOLIC PANEL Lab Routine Cancer of breast, intraductal, left Every 3 months for 6 Occurrences starting 09/05/2022 until 09/05/2023 [facility] Work Phone: Comment on above: Every 3 months for 6 Occurrences starting 09/05/2022 until 09/05/2023 End: 03-04-2024 Comprehensive metabolic 2000 panel - Serum or Plasma COMP METABOLIC PANEL Lab STAT Malignant neoplasm of female breast, unspecified estrogen receptor status, unspecified laterality, unspecified site of breast (HCC) Once per month for 15 Occurrences starting 03/05/2023 until 03/04/2024, 1 completed [facility] Work Phone: Comment on above: Once per month for 1 5 Occurrences starting 03/05/2023 until 03/04/2024, 1 completed End: 03-31-2025 Comprehensive metabolic 2000 panel - Serum or Plasma COMPREHENSIVE METABOLIC PANEL Lab Routine Cancer of breast, intraductal, left Once per month for 15 Occurrences starting 03/31/2024 until 03/31/2025, 2 completed [facility] Comment on above: Once per month for 1 5 Occurrences starting 03/31/2024 until 03/31/2025, 2 completed End: 04-13-2026 Comprehensive metabolic 2000 panel - Serum or Plasma COMPREHENSIVE METABOLIC PANEL Lab STAT 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, estrogen receptor positive, unspecified laterality, unspecified site of breast (HCC) Once per month for 12 Occurrences starting 04/13/2025 until 04/13/2026 [facility] Comment on above: Once per month for 1 2 Occurrences starting 04/13/2025 until 04/13/2026 Creatinine [Moles/vo lume] in Serum or Plasma [facility] End: 06-09-2023 Ct abdomen & pelvis w/contrast material CT ABD/PEL W IVCON Radiology Routine Malignant neoplasm of female breast, unspecified estrogen receptor status, unspecified laterality, unspecified site of breast (HCC) 1 Occurrences starting 05/10/2022 until 06/09/2023 [facility] Work Phone: Comment on above: 1 Occurrences starti ng 05/10/2022 until 06/09/2023 End: 06-09-2023 CT CHEST W IVCON CT CHEST W IVCON Radiology Routine Malignant neoplasm of female breast, unspecified estrogen receptor status, unspecified laterality, unspecified site of breast (HCC) 1 Occurrences starting 05/10/2022 until 06/09/2023 [facility] Work Phone: Comment on above: 1 Occurrences starti ng 05/10/2022 until 06/09/2023 Glucose [Mass/volume ] in Serum or Plasma [facility] Hematocrit [Volume Fraction] of Blood [facility] Hemoglobin [Mass/vol ume] in Blood [facility] Leukocytes [#/volume ] in Blood [facility] Mean corpuscular hemoglobin concentration determination [facility] Mean corpuscular hemoglobin determination [facility] Measurement of renal function [facility] Neutrophil count [facility] Neutrophil percent differential count [facility] Patient Education ED Laceration Extremity [facility] Work Phone: Patient referral [facility] Work Phone: Platelets [#/volume] in Blood [facility] Potassium [Moles/vol ume] in Serum or Plasma [facility] Red blood cell count [facility] Red cell distributio n width determination [facility] Sodium [Moles/volume ] in Serum or Plasma [facility] Urea nitrogen [Mass/volume] in Serum or Plasma [facility] Immunizations Immunization Date Immunization Notes Care Provider Shira garza 08-07-2023 influenza (HD-IIV4) vaccine, age 65+ yr, high dose, quadrivalent, PF (FLUZONE HIGH-DOSE) Injection Work Phone: [facility] 08-07-2023 influenza virus vacc ine, unspecified formulation Injection Work Phone: [facility] 03-08-2023 tetanus toxoid, redu jayce diphtheria toxoid, and acellular pertussis vaccine, adsorbed [facility] 12-26-2020 COVID-19 vaccine, ag e 12+ yr (PFIZER-BIONTECH - PURPLE TOP) Leonid Graham MD Work Phone: [facility] Work Phone: 12-05-2020 COVID-19 vaccine, ag e 12+ yr (PFIZER-BIONTECH - PURPLE TOP) Leonid Graham MD Work Phone: [facility] Work Phone: 08-05-2020 influenza, high-dose , quadrivalent vaccine (FLUZONE HIGH DOSE QUADRIVALENT) Leonid Graham MD Work Phone: [facility] 08-05-2020 influenza virus vacc ine, unspecified formulation Ailin Stanely RN [facility] 08-01-2019 influenza, injectabl e, quadrivalent, preservative free Leonid Graham MD Work Phone: [facility] 06-26-2015 pneumococcal conjuga te vaccine, 13 valent Leonid Graham MD Work Phone: [facility] 02-08-2007 pneumococcal polysaccharide vaccine, 23 valent Leonid Graham MD Work Phone: [facility] Payers Date Payer Category Payer Self-pay [id number] 2023 Medicare MMO MEDICARE MMO MEDADVANTAGE HMO [id number] 2023-Present [phone] [address] [place] [address] O [id number] 2023 Medicare (Managed Care) MMO ERICA DVANTAGE HMO [id number] 2023 Unknown [id number] 2020 Unknown ANTHEM BLUE CROS S AND BLUE SHIELD ANTHEM MEDIBLUE ACCESS [id number] 2020-Present [phone] [id number] [place] [id number] PPO [id number] 2020 Unknown ANTHEM BLUE CROS S AND BLUE SHIELD ANTHEM MEDIBLUE ACCESS [id number] 2020-Present [phone] [address] [place] [address] PPO [id number] 2015 Medicare ANTHEM MEDICARE PPO [id number] Unknown [id number] Unknown [id number] Unknown [id number] Unknown [id number] Unknown [id number] Unknown [id number] Unknown [id number] Unknown [id number] Social History Date Type Detail Facility Start: 09-28-2012 End: 12-20-2013 Tobacco smoking status NVIS Ex-smoker [facility] Start: 12-20-2005 History of tobacco use Smoker [facility] Start: 09-28-2012 End: 12-20-2013 Tobacco use and exposure Smokeless tobacco non-user [facility] Start: 06-17-2021 End: 01-18-2024 Alcohol intake Current non-drinker of alcohol (finding) [facility] Start: 08-04-2020 History SDOH Financial 5 [facility] Start: 08-04-2020 History SDOH Food Worry 1 [facility] Start: 08-04-2020 History SDOH Transpo rt Med 2 [facility] Start: 1940 Sex Assigned At Not on file C [facility] Start: 12-14-2021 End: 08-21-2022 Exposure to SARS-CoV-2 (event) Not sure [facility] Start: 12-20-2005 History of tobacco use Cigarette Smo ker [facility] Start: 08-05-2022 End: 01-12-2024 Tobacco smoking status NVIS Unknown if ever smoked [facility] Start: 1940 Sex Assigned At Female [facility] Start: 03-09-2023 End: 07-22-2024 History of Social function [facility] Work Phone: Start: 03-09-2023 End: 07-22-2024 Tobacco use panel [facility] Work Phone: Start: 09-05-2012 How hard is it for y ou to pay for the very basics like food, housing, medical care, and heating Not hard at all [facility] Work Phone: (I/We) worried wheth er (my/our) food would run out before (I/we) got money to buy more. Never true [facility] Work Phone: Has the [employer], [employer], or [employer] threatened to shut off services in your home in past 12Mo No [facility] NEGATED: Highlighted row [facility] Medical Equipment Procedure Code Equipment Code Equipment Origin al Text Equipment Identifier Dates TRIGEN L-P SCREW FDA Start: 01-13-2024 Femur nail [id number] FDA Start: 01-13-2024 ([id number]) Orthopaedic bone screw, non-bioabsorbable, sterile ()[id number] FDA Start: 01-13-2024 Goals Date Patient Goal Desired Activity /State Functional Status Date Assessment Result Facility 02-19-2024 Are you deaf, or do you have serious difficulty hearing No 02/19/2024 9:31 AM Isabella Smith RN No [facility] 02-19-2024 Are you blind, or do you have serious difficulty seeing, even when wearing glasses No 02/19/2024 9:31 AM Isabella Smith RN No [facility] 02-19-2024 Do you have serious difficulty walking or climbing stairs Yes 02/19/2024 9:31 AM Isabella Smith RN Yes [facility] 02-19-2024 Do you have difficul ty dressing or bathing Yes 02/19/2024 9:31 AM Isabella Smith RN Yes [facility] 02-19-2024 Because of a physica l, mental, or emotional condition, do you have difficulty doing errands alone such as visiting a physician's office or shopping Yes 02/19/2024 9:31 AM EDT Isabella Harrison RN Yes [facility] 01-17-2024 Functional status Bedrest [facility] Work Phone: Mental Status Date Assessment Result Facility 02-19-2024 Because of a physica l, mental, or emotional condition, do you have serious difficulty concentrating, remembering, or making decisions Yes 02/19/2024 9:31 AM EDT Isabella Harrison RN Yes [facility] 01-17-2024 Cognitive function Voice/Name;To [facility]/Shaki ng [facility] Work Phone: 08-05-2022 Cognitive function Voice/Name [facility] Work Phone: Clinical Notes 01-06-2022 to 08-09-2025 Leonid Graham MD - 06/15/2025 5:15 PM Elle Carlos APRN.[facility] - 06/14/2025 4:03 PM Leonid Salazar MD - 05/14/2025 3:55 PM Elle Carlos APRN.[facility] - 04/13/2025 3:33 PM EDT Note Date & Type Note Facility 08-09-2025 Note HNO ID: [id number] Author: JANETT BETANCOURT APRN.AFSHIN Service: ? Author Type: Nurse Practitioner Type: Progress Notes Filed: 08/10/2025 08:20 Note Text: August 09, 2025 4:[address] Graham patient Order for Fulvestrant signed for today to facilitate treatment Janett Betancourt APRN.[facility] 07-12-2025 Note HNO ID: [id number] Author: JANETT BETANCOURT APRN.CNP Service: ? Author Type: Nurse Practitioner Type: Progress Notes Filed: 07/13/2025 08:11 Note Text: July 12, 2025 3:[address] Graham patient Order for Faslodex signed for today to facilitate treatment Janett Betancourt APRN.[facility] 06-15-2025 Note HNO ID: [id number] Author: LEONID GRAHAM MD Service: ? Author [...] found to be consistent with ER positive/99%, TN +90% and HER2 negative by IHC. The [...] noted. Continue with Faslodex. Leonid Graham MD [facility] 06-15-2025 History of Presen t illness [...] found to be consistent with ER positive/99%, TN +90% and HER2 negative by IHC. The [...] Leonid Graham MD documented in this encounter [facility] 06-14-2025 Note HNO ID: [id number] Author: ELLE MARVIN APRN.FASHIN Service: ? Author Type: Nurse Practitioner Type: Progress Notes Filed: 06/15/2025 09:33 Note Text: Dr. Graham patient. Order for Faslodex signed to facilitate treatment. Elle Marvin APRN.CNP [facility] 06-14-2025 History of Presen t illness Narrative Dr. Graham patient. Order for Faslodex signed to facilitate treatment. Elle Marvin APRN.[employer] documented in this encounter [facility] 05-14-2025 Note HNO ID: [id number] Author: LEONID GRAHAM MD Service: ? Author Type: Physician Type: Progress Notes Filed: 05/14/2025 15:55 Note Text: Apt was rescheduled. Leondi Graham MD [facility] 05-14-2025 History of Presen t illness Narrative Apt was rescheduled. Leonid Graham MD documented in this encounter [facility] 05-10-2025 Note HNO ID: [id number] Author: ELLE MARVIN APRN.[employer] Service: ? Author Type: Nurse Practitioner Type: Progress Notes Filed: 05/12/2025 10:00 Note Text: Dr. Graham patient. Order for faslodex signed to facilitate treatment. Elle Marvin APRN.CNP [facility] 04-13-2025 Note HNO ID: [id number] Author: ELLE MARVIN APRN.CNP Service: ? Author Type: Nurse Practitioner Type: Progress Notes Filed: 04/14/2025 07:55 Note Text: Dr. Graham patient. Order for faslodex signed to facilitate treatment. Elle Marvin APRN.CNP [facility] 04-13-2025 History of Presen t illness Narrative Dr. Graham patient. Order for faslodex signed to facilitate treatment. Elle Marvin APRN.CNP documented in this encounter [facility] 04-13-2025 Telephone encounter Note Spoke with daughter and let her know labs were placed. Verbalized understanding. Julio Simms [facility] 04-13-2025 Miscellaneous Notes Spoke with daughter and let her know labs were placed. Verbalized understanding. Julio Simms Orders placed. Patients daughter called into the office. Daughter is asking for labs orders to be placed prior to her mothers injection appointment tomorrow on 04/14/2025. Julio Simms documented in this encounter [facility] 04-13-2025 Telephone encounter Note Orders placed. [facility] 04-13-2025 Telephone encounter Note Patients daughter called into the office. Daughter is asking for labs orders to be placed prior to her mothers injection appointment tomorrow on 04/14/2025. Julio Simms [facility] 03-16-2025 Note HNO ID: [id number] Author: ELLE MARVIN APRN.CNP Service: ? Author Type: Nurse Practitioner Type: Progress Notes Filed: 03/17/2025 08:16 Note Text: Dr. Graham patient. Order for faslodex signed to facilitate treatment. Elle Marvin APRN.CNP [facility] 03-16-2025 History of Presen t illness Narrative Dr. Graham patient. Order for faslodex signed to facilitate treatment. Elle Marvin APRN.CNP documented in this encounter [facility] 02-16-2025 Note HNO ID: [id number] Author: ELLE MARVIN APRN.CNP Service: ? Author Type: Nurse Practitioner Type: Progress Notes Filed: 02/17/2025 07:56 Note Text: Dr. Graham patient. Order for faslodex signed to facilitate treatment. Elle Marvin APRN.CNP [facility] 02-16-2025 History of Presen t illness Narrative Dr. Graham patient. Order for faslodex signed to facilitate treatment. Elle Marvin APRN.CNP documented in this encounter [facility] 01-20-2025 Note HNO ID: [id number] Author: LEONID GRAHAM MD Service: ? Author [...] found to be consistent with ER positive/99%, TN +90% and HER2 negative by IHC. The [...] noted. Continue with Faslodex. Leonid Graham MD [facility] 01-20-2025 History of Presen t illness [...] found to be consistent with ER positive/99%, TN +90% and HER2 negative by IHC. The [...] Leonid Graham MD documented in this encounter [facility] 01-19-2025 Note HNO ID: [id number] Author: ELLE MARVIN APRN.CNP Service: ? Author Type: Nurse Practitioner Type: Progress Notes Filed: 01/20/2025 08:58 Note Text: Dr. Graham patient. Order for faslodex signed to facilitate treatment. Elle Marvin APRN.CNP [facility] 01-19-2025 History of Presen t illness Narrative Dr. Graham patient. Order for faslodex signed to facilitate treatment. Elle Marvin APRN.CNP documented in this encounter [facility] 12-23-2024 Note HNO ID: [id number] Author: ELLE MARVIN APRN.CNP Service: ? Author Type: Nurse Practitioner Type: Progress Notes Filed: 12/23/2024 08:40 Note Text: Dr. Graham patient. Order for faslodex signed to facilitate treatment. Elle Marvin APRN.CNP [facility] 12-23-2024 History of Presen t illness Narrative Dr. Graham patient. Order for faslodex signed to facilitate treatment. Elle Marvin APRN.ROBOTICS MECHANIC documented in this encounter [facility] 10-24-2024 Note HNO ID: [id number] Author: LEONID GRAHAM MD Service: ? Author [...] found to be consistent with ER positive/99%, TN +90% and HER2 negative by IHC. The [...] noted. Continue with Faslodex. Leonid Graham MD [facility] 10-24-2024 History of Presen t illness [...] found to be consistent with ER positive/99%, TN +90% and HER2 negative by IHC. The [...] Leonid Graham MD documented in this encounter [facility] 10-21-2024 Note HNO ID: [id number] Author: JANETT BETANCOURT APRN.AFSHIN Service: ? Author Type: Nurse Practitioner Type: Progress Notes Filed: 10/24/2024 09:18 Note Text: October 21, 2024 3:[address] Graham patient Order for Faslodex signed for today to facilitate treatment on Thursday Janett Betancourt APRN.AFSHIN [facility] 10-21-2024 History of Presen t illness Narrative October 21, 2024 3:[address] Graham patient Order for Faslodex signed for today to facilitate treatment on Thursday Janett Betancourt APRN.ROBOTICS MECHANIC documented in this encounter [facility] 09-21-2024 Note HNO ID: [id number] Author: ELLE MARVIN APRN.CNP Service: ? Author Type: Nurse Practitioner Type: Progress Notes Filed: 09/21/2024 09:09 Note Text: Dr. Graham patient. Order for faslodex signed to facilitate treatment. Elle Marvin APRN.CNP [facility] 09-21-2024 History of Presen t illness Narrative Dr. Graham patient. Order for faslodex signed to facilitate treatment. Elle Marvin APRN.ROBOTICS MECHANIC documented in this encounter [facility] 08-22-2024 Note HNO ID: [id number] Author: ELLE MARVIN APRN.CNP Service: ? Author Type: Nurse Practitioner Type: Progress Notes Filed: 08/22/2024 09:03 Note Text: Dr. Graham patient. Order for faslodex signed to facilitate treatment. Elle Marvin APRN.CNP [facility] 08-22-2024 History of Presen t illness Narrative Dr. Graham patient. Order for faslodex signed to facilitate treatment. Elle Marvin APRN.CNP documented in this encounter [facility] 07-21-2024 History of Presen t illness Narrative July 21, 2024 4:[address] Graham patient Order for Faslodex signed for today to facilitate treatment Janett Betancourt APRN.AFSHIN documented in this encounter [facility] 06-22-2024 History of Presen t illness Narrative [...] cancer with bone mets Treatment History: - ER+/TN+/HER2- - s/p lumpectomy for a left-sided breast cancer in 2006 - received post surgical adjuvant chemotherapy along with radiation followed by 5 years of Arimidex which she completed in 2012 at [facility] (no records of the pathology or the [...] confirmed metastatic breast cancer - ER strongly +99%/TN +90%/HER-2 negative by IHC - PET CT [...] changes, no adenopathy, no pain on exam Market Development Specialist offered:Patient accepts, visit chaperoned by granddaughter The sensitive examination was discussed with the Patient or Patient's Authorized Pill Machine Operator. As applicable, any other physician, advance practice provider, medical student, or other health professional student that will be observing or involved in the sensitive examination for educational or training purposes was discussed with the Patient or Authorized Pill Machine Operator. The Patient or Authorized Pill Machine Operator has agreed to proceed with the sensitive [...] - 4.00 k/uL 2.04 2.46 2.38 Abs Dewitt <0.87 k/uL 0.53 0.45 0.50 Abs Eosin [...] which included preparing to see the patient, [id number] patient care, completing clinical documentation, obtaining and/or [...] June 22, 2024 documented in this encounter [facility] 06-21-2024 History of Presen t illness Narrative June 21, 2024 5:[address] Graham patient Order for Faslodex signed for today to facilitate treatment Janett Betancourt APRN.CNP documented in this encounter [facility] 05-27-2024 History of Presen t illness Narrative May 27, 2024 8:[address] Graham patient Order for Faslodex signed for today to facilitate treatment Janett Betancourt APRN.CNP documented in this encounter [facility] 04-28-2024 History of Presen t illness Narrative April 28, 2024 6:[address] Graham patient Order for Faslodex signed for today to facilitate treatment Janett Betancourt APRN.CNP documented in this encounter [facility] 03-25-2024 History of Presen t illness Narrative Dr. Graham patient. Order for faslodex signed to facilitate treatment. Elle Marvin APRN.CNP; documented in this encounter [facility] 03-22-2024 Miscellaneous Notes SITUATION:granddaughter present during today's [...] for intervention/education details. documented in this encounter [facility] 03-22-2024 Patient's home Note SITUATION:granddaughter present during [...] directed See intervention summary for intervention/education details. 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 only patient present during today's [...] for intervention/education details. 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 only patient present during today's [...] ). See intervention summary for intervention/education details. [facility] Work Phone: 03-17-2024 Miscellaneous Notes SITUATION: OT [...] for intervention/education details. documented in this encounter [facility] 03-17-2024 Patient's home Note SITUATION: OT discharge granddtr present during today's visit. patient and caregiver reports the following since the last homecare visit: medications/allergies--no changes, no fall. patient and caregiver reports they have completed shower level bathing with asst from [facility]. Granddtr reporting that it has gone well [...] daily See intervention summary for intervention/education details. 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 daughter present during today's visit. [...] for intervention/education details. documented in this encounter [facility] 03-14-2024 Patient's home Note SITUATION: TOOL MACHINIST routine visit. daughter present during today's visit. [...] reserve. See intervention summary for intervention/education details. [facility] Work Phone: 03-10-2024 Miscellaneous Notes SITUATION: grand [...] for intervention/education details. documented in this encounter [facility] 03-10-2024 Patient's home Note SITUATION: grand daughter [...] able See intervention summary for intervention/education details. [facility] Work Phone: 03-07-2024 Miscellaneous Notes SITUATION: OT [...] and shower transfers documented in this encounter [facility] 03-07-2024 Patient's home Note SITUATION: OT routine [...] of ue hep, standing and shower transfers [facility] Work Phone: 03-07-2024 Miscellaneous Notes SITUATION: grand [...] for intervention/education details. documented in this encounter [facility] 03-07-2024 Patient's home Note SITUATION: grand daughter [...] mobility See intervention summary for intervention/education details. [facility] Work Phone: 03-05-2024 History of Presen t [...] found to be consistent with ER positive/99%, TN +90% and HER2 negative by IHC. The [...] Leonid Graham MD documented in this encounter [facility] 03-03-2024 Miscellaneous Notes SITUATION: grand daughter present [...] for intervention/education details. documented in this encounter [facility] 03-03-2024 Patient's home Note SITUATION: grand daughter [...] able See intervention summary for intervention/education details. [facility] Work Phone: 03-02-2024 Miscellaneous Notes SITUATION: Detention Discipline Discharge visit completed today. daughter also [...] and OT services. documented in this encounter [facility] 03-02-2024 Patient's home Note SITUATION: Detention Discipline Discharge visit completed today. daughter also [...] to continue with PT and OT services. [facility] Work Phone: 03-01-2024 Miscellaneous Notes SITUATION: OT [...] and standing tolerance documented in this encounter [facility] 03-01-2024 Patient's home Note SITUATION: OT routine [...] review of ue hep and standing tolerance [facility] Work Phone: 03-01-2024 Miscellaneous Notes SITUATION: grand [...] for intervention/education details. documented in this encounter [facility] 03-01-2024 Patient's home Note SITUATION: grand daughter [...] raises See intervention summary for intervention/education details. [facility] Work Phone: 02-26-2024 Miscellaneous Notes SITUATION: granddaughter [...] for intervention/education details. documented in this encounter [facility] 02-26-2024 Patient's home Note SITUATION: granddaughter in [...] tolerance See intervention summary for intervention/education details. [facility] Work Phone: 02-25-2024 Miscellaneous Notes SITUATION: Detention Eval completed today. other family member (grandson's [...] specific): wound care documented in this encounter [facility] 02-25-2024 Procedure note SITUATION: Detention Eval completed today. other family member (grandson's [...] to focus on (be specific): wound care [facility] Work Phone: 02-25-2024 Miscellaneous Notes SITUATION: OT [...] and fell fx of left le. 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 Reviewed and explained homecare [...] for intervention/education details. documented in this encounter [facility] 02-25-2024 Patient's home Note SITUATION: OT evaluation [...] and fell fx of left le. 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 Reviewed and explained homecare [...] balance. See intervention summary for intervention/education details. [facility] Work Phone: 02-24-2024 Miscellaneous Notes Medication review completed. No ineffective drug therapy, significant side effects, significant drug interactions, duplicate drug therapy, or noncompliance with drug therapy noted. Message to PT about Depakote? Althea Cardona RN documented in this encounter [facility] 02-24-2024 Patient's home Note Medication review completed. No ineffective drug therapy, significant side effects, significant drug interactions, duplicate drug therapy, or noncompliance with drug therapy noted. Message to PT about Depakote? Althea Cardona RN [facility] Work Phone: 02-23-2024 Miscellaneous Notes SITUATION: granddaughter [...] month. [facility], patient has follow up with ortho on [...] Precautions: WBAT, falls ASSESSMENT: Patient evaluated by [facility] physical therapy. Reviewed and explained homecare [...] for intervention/education details. documented in this encounter [facility] 02-23-2024 Patient's home Note SITUATION: granddaughter in [...] month. Most of patient's physicians are through [employer], patient has follow up with ortho on [...] Precautions: WBAT, falls ASSESSMENT: Patient evaluated by [facility] Home[facility] physical therapy. Reviewed and explained homecare [...] care See intervention summary for intervention/education details. [facility] Work Phone: 02-22-2024 Telephone encounter Note Patient accepted and confirmed home health start of care (SOC) for 02/23/24. Visit time established. [facility] Work Phone: 02-22-2024 Miscellaneous Notes Patient accepted and confirmed home health start of care (SOC) for 02/23/24. Visit time established. documented in this encounter [facility] 02-22-2024 Telephone encounter Note Spoke to Marisol Chakraborty MD verbal office to follow home care and sign care plan. Tanika De La Garza LPN February 22, 2024 1:04 PM [facility] 02-22-2024 Miscellaneous Notes Spoke to Marisol at Yoav Chakraborty MD verbal office to follow home care and sign care plan. Tanika De La Garza LPN February 22, 2024 1:04 PM documented in this encounter [facility] 02-21-2024 Telephone encounter Note Date/Time: 02/21/2024 11:19 AM Spoke with Tez @ phone #: [phone]. Tez - Preferred # for contact: [phone]. Tez Have you received help from a home care company in the last 60 days? no Are you agreeable to [facility] services? yes What address will we be seeing you at?[place] [id number] [place] [address] Do you have any upcoming appointments or things we need to schedule around? no Do you have a teachable CG or can you manage your care independently? Dtr Tez [facility] 02-21-2024 Miscellaneous Notes Date/Time: 02/21/2024 11:19 AM Spoke with Tez @ phone #: [phone]. Tez - Preferred # for contact: [phone]. Tez Have you received help from a home care company in the last 60 days? no Are you agreeable to [facility] services? yes What address will we be seeing you at?[place] [id number] [place], [place] [id number] Do you have any upcoming appointments or things we need to schedule around? no Do you have a teachable CG or can you manage your care independently? Dtr eTz documented in this encounter [facility] 02-19-2024 Note HNO ID: [id number] Author: ISABELLA HARRISON RN Service: Nursing Author Type: Registered Nurse Type: Progress Notes Filed: 02/19/2024 12:22 Note Text: 1145- pt d/c'd home with daughter. All belongings taken with pt. All questions and concerns are answered by this nurse. Pt transported safely via wheelchair to private vehicle in stable condition. [facility] 02-18-2024 Note HNO ID: [id number] Author: SARAH BONNER RN Service: Care Management Author Type: Registered Nurse Type: Care Mgt Progress Note Filed: 02/18/2024 10:11 Note Text: CASE MANAGEMENT PROGRESS NOTE SERVICE DATE: 02/18/2024 SERVICE TIME: 10:10 AM Revisited with pt and granddaughter at bedside. Pt up in chair, no c/o. Plan for discharge 02/18. Pt remains agreeable to [facility]. Both pt and granddaughter deny any other concerns re: discharge home. Pts daughter to transport home 02/18. Will follow SIGNATURE: Sarah Bonner RN PATIENT NAME: Jackelyn Bradshaw DATE: February 18, 2024 TIME: 10:10 AM PAGER/CONTACT #: [phone] [facility] 02-13-2024 Note HNO ID: [id number] Author: DENNY MANNING APRN.CNP Service: Hospital Medicine Author Type: Nurse Practitioner Type: Progress Notes Filed: 02/13/2024 10:45 Note Text: DEPARTMENT OF HOSPITAL MEDICINE PROGRESS NOTE SERVICE DATE: 02/13/2024 SERVICE TIME: 10:02 AM Hospital Medicine/Primary Attending: Arleen Bryant,* NIGHT AND WEEKEND COVERAGE: [facility] MARGARET 7a-7p Page [phone] 7p-7a Subjective INTERVAL HPI: - Patient sitting [...] breast cancer, arthritis, HTN, CKD, presented to [facility] on 01/12/2024 following a fall at home. She was found to have left hip fracture and underwent ORIF on 01/13/2024. Post-op course was complicated by acute blood loss anemia likely 2/2 surgery; Hgb was 7.6 at [place]. FORTINO on CKD that was resolving at [place] with IVF; Cr 1.97. Lisinopril was initially held, but resumed at [place]. She is WBAT. She was started on Eliquis BID x30 days. She was DCd with sal due to urinary retention. Urine cx was + <1000 salina aguilar (no tx received). PT/OT recommended SNF at [place], thus she was transferred to [facility] for further rehab services. Principal Problem: Aftercare - Hospitalization Dates: 01/12/2024-01/17/2024 - Hospitalization Diagnosis: left intertrochanteric fracture - Discharge Facility: [facility] - PT/OT following - Nutrition following - [...] on recent h (more content not included)... [facility] 02-08-2024 Note HNO ID: [id number] Author: DENNY MANNING APRN.CNP Service: Hospital Medicine Author Type: Nurse Practitioner Type: Progress Notes Filed: 02/08/2024 13:00 Note Text: DEPARTMENT OF HOSPITAL MEDICINE PROGRESS NOTE SERVICE DATE: 02/08/2024 SERVICE TIME: 11:20 AM Hospital Medicine/Primary Attending: Artur Smith MD NIGHT AND WEEKEND COVERAGE: [facility] MARGARET 7a-7p Page [phone] 7p-7a Subjective INTERVAL HPI: - Ambulating the [...] breast cancer, arthritis, HTN, CKD, presented to [facility] on 01/12/2024 following a fall at home. She was found to have left hip fracture and underwent ORIF on 01/13/2024. Post-op course was complicated by acute blood loss anemia likely 2/2 surgery; Hgb was 7.6 at [place]. FORTINO on CKD that was resolving at [place] with IVF; Cr 1.97. Lisinopril was initially held, but resumed at [place]. She is WBAT. She was started on Eliquis BID x30 days. She was DCd with sal due to urinary retention. Urine cx was + <1000 merih lauren (no tx received). PT/OT recommended SNF at [place], thus she was transferred to [facility] for further rehab services. Principal Problem: Aftercare - Hospitalization Dates: 01/12/2024-01/17/2024 - Hospitalization Diagnosis: left intertrochanteric fracture - Discharge Facility: [facility] - PT/OT following - Nutrition following - Case Management following for Discharge Planning - Pain Control: scheduled tylenol and PRN Tramadol - DVT Prophylaxis: Eliquis BID x30 days - PT/OT Restrictions: WBAT - Current Living Situ (more content not included)... [facility] 02-05-2024 Note HNO ID: [id number] Author: ARNIE GALVIN APRN.AFSHIN Service: Hospital Medicine Author Type: Nurse Practitioner Type: Progress Notes Filed: 02/05/2024 14:27 Note Text: DEPARTMENT OF HOSPITAL MEDICINE PROGRESS NOTE SERVICE DATE: 02/05/2024 SERVICE TIME: 11:20 AM Hospital Medicine/Primary Attending: Artur Smith MD NIGHT AND WEEKEND COVERAGE: [facility] MARGARET 7a-7p Page [phone] 7p-7a Subjective INTERVAL HPI: - patient sitting [...] breast cancer, arthritis, HTN, CKD, presented to [facility] on 01/12/2024 following a fall at home. She was found to have left hip fracture and underwent ORIF on 01/13/2024. Post-op course was complicated by acute blood loss anemia likely 2/2 surgery; Hgb was 7.6 at [place] FORTINO on CKD that was resolving at [place] with IVF; Cr 1.97. Lisinopril was initially held, but resumed at [place]. She is WBAT. She was started on Eliquis BID x30 days. She was DCd with sal due to urinary retention. Urine cx was + <1000 staph wareverti (no tx received). PT/OT recommended SNF at [place], thus she was transferred to [facility] for further rehab services. Principal Problem: Aftercare - Hospitalization Dates: 01/12/2024-01/17/2024 - Hospitalization Diagnosis: left intertrochanteric fracture - Discharge Facility: [facility] - PT/OT Consult - Nutrition Consult - [...] infection Eliquis 2.5m (more content not included)... [facility] 02-04-2024 Note HNO ID: [id number] Author: SARAH BONNER RN Service: Care Management Author Type: Registered Nurse Type: Care Mgt Progress Note Filed: 02/04/2024 16:17 Note Text: CASE MANAGEMENT PROGRESS NOTE SERVICE DATE: 02/04/2024 SERVICE TIME: 4:16 PM Received call from Margaret at [facility] - updated that appeal was approved and requested clinicals. Clinical documentation uploaded to [facility] [email or web address] Portal. Will follow SIGNATURE: Sarah Bonner RN PATIENT NAME: Jackelyn Bradshaw DATE: February 04, 2024 TIME: 4:16 PM PAGER/CONTACT #: [phone] [facility] 02-03-2024 Note HNO ID: [id number] Author: ARNIE GALVIN APRN.CNP Service: Hospital Medicine Author Type: Nurse Practitioner Type: Plan of Care Filed: 02/03/2024 12:49 Note Text: DEPARTMENT OF HOSPITAL MEDICINE PLAN OF CARE NOTE SERVICE DATE: February 03, 2024 SERVICE TIME: 12:48 PM Hospital Medicine/Primary Attending: Department of Hospital Medicine NIGHT AND WEEKEND COVERAGE: [facility] Medicine Coverage PLAN OF CARE Therapy concerned about worsening urinary incontinence. Will check UA for infection. Also restart Oxybutynin (decrease to daily). BP has been running higher (Amlodipine previously stopped due to leg swelling). Will increase Lisinopril to 30mg daily. Continue to monitor BPs. SIGNATURE: Arnie Galvin APRN.CNP PATIENT NAME: Jackelyn Bradshaw DATE: February 03, 2024 TIME: 12:48 PM [facility] 02-01-2024 Note HNO ID: [id number] Author: SARAH BONNER RN Service: Care Management [...] 01, 2024 TIME: 1:44 PM PAGER/CONTACT #: [phone] [facility] 02-01-2024 Note HNO ID: [id number] Author: ARNIE GALVIN APRN.CNP Service: Hospital Medicine Author Type: Nurse Practitioner Type: Progress Notes Filed: 02/01/2024 18:17 Note Text: DEPARTMENT OF HOSPITAL MEDICINE PROGRESS NOTE SERVICE DATE: 02/01/2024 SERVICE TIME: 11:20 AM Hospital Medicine/Primary Attending: Artur Smith MD NIGHT AND WEEKEND COVERAGE: [facility] MARGARET 7a-7p Page [phone] 7p-7a Subjective INTERVAL HPI: - patient sitting [...] breast cancer, arthritis, HTN, CKD, presented to [facility] on 01/12/2024 following a fall at home. She was found to have left hip fracture and underwent ORIF on 01/13/2024. Post-op course was complicated by acute blood loss anemia likely 2/2 surgery; Hgb was 7.6 at [place]. FORTINO on CKD that was resolving at [place] with IVF; Cr 1.97. Lisinopril was initially held, but resumed at [place]. She is WBAT. She was started on Eliquis BID x30 days. She was DCd with sal due to urinary retention. Urine cx was + <1000 merih lauren (no tx received). PT/OT recommended SNF [place], thus she was transferred to [facility] for further rehab services. Principal Problem: Aftercare - Hospitalization Dates: 01/12/2024-01/17/2024 - Hospitalization Diagnosis: left intertrochanteric fracture - Discharge Facility: [facility] - PT/OT Consult - Nutrition Consult - Case Management Consult for Discharge Planning - Pain Control: scheduled tylenol and PRN Tramadol - DVT Prophylaxis: Eliquis BID x30 days - PT/OT Restrictions: WBAT - Current Living Situation: home with family - Code Status: DNR-cca/DNI L hip fracture S/P L ORIF on 01/13/24 Received IV (more content not included)... [facility] 01-29-2024 Note HNO ID: [id number] Author: SARAH BONNER RN Service: Care Management [...] 29, 2024 TIME: 12:08 PM PAGER/CONTACT #: [phone] [facility] 01-29-2024 Note HNO ID: [id number] Author: FARIBA CONNOR APRN.CNP Service: Hospital Medicine Author Type: Nurse Practitioner Type: Progress Notes Filed: 01/29/2024 10:24 Note Text: DEPARTMENT OF HOSPITAL MEDICINE PROGRESS NOTE SERVICE DATE: 01/29/2024 SERVICE TIME: 8:08 AM Hospital Medicine/Primary Attending: Quincy Koo MD NIGHT AND WEEKEND COVERAGE: [facility] MARGARET 7a-7p Page [phone] 7p-7a Subjective INTERVAL HPI: Seen and examined [...] breast cancer, arthritis, HTN, CKD, presented to [facility] on 01/12/2024 following a fall at home. She was found to have left hip fracture and underwent ORIF on 01/13/2024. Post-op course was complicated by acute blood loss anemia likely 2/2 surgery; Hgb was 7.6 at [place]. FORTINO on CKD that was resolving at [place] with IVF; Cr 1.97. Lisinopril was initially held, but resumed at [place]. She is WBAT. She was started on Eliquis BID x30 days. She was DCd with sal due to urinary retention. Urine cx was + <1000 staph warneri (no tx received). PT/OT recommended SNF at [place], thus she was transferred to [place] [facility] for further rehab services. Principal Problem: Aftercare - Hospitalization Dates: 01/12/2024-01/17/2024 - Hospitalization Diagnosis: left intertrochanteric fracture - Discharge Facility: [facility] - PT/OT Consult - Nutrition Consult - Case Management Consult for Discharge Planning - Pain Control: scheduled tylenol and PRN Tramadol - DVT Prophylaxis: Eliquis BID x30 days - PT/OT Restrictions: WBAT - Current Living Situation: home with family - Code Status: DNR-cca/DNI L hip fracture S/P L ORIF on 01/13/24 Received IV ATB post-op x3 doses Surgical (more content not included)... [facility] 01-27-2024 Note HNO ID: [id number] Author: FARIBA CONNOR APRN.CNP Service: Hospital Medicine Author Type: Nurse Practitioner Type: Progress Notes Filed: 01/27/2024 12:52 Note Text: DEPARTMENT OF HOSPITAL MEDICINE PROGRESS NOTE SERVICE DATE: 01/27/2024 SERVICE TIME: 12:37 PM Hospital Medicine/Primary Attending: Quincy Koo MD NIGHT AND WEEKEND COVERAGE: [facility] Medicine MARGARET 7a-7p Page [phone] 7p-7a Subjective INTERVAL HPI: No new complaints [...] breast cancer, arthritis, HTN, CKD, presented to [facility] on 01/12/2024 following a fall at home. She was found to have left hip fracture and underwent ORIF on 01/13/2024. Post-op course was complicated by acute blood loss anemia likely 2/2 surgery; Hgb was 7.6 at [place]. FORTINO on CKD that was resolving at [place] with IVF; Cr 1.97. Lisinopril was initially held, but resumed at [place]. She is WBAT. She was started on Eliquis BID x30 days. She was DCd with sal due to urinary retention. Urine cx was + <1000 staph tayei (no tx received). PT/OT recommended SNF at [place], thus she was transferred to [facility] for further rehab services. Principal Problem: Aftercare - Hospitalization Dates: 01/12/2024-01/17/2024 - Hospitalization Diagnosis: left intertrochanteric fracture - Discharge Facility: [facility] - PT/OT Consult - Nutrition Consult - [...] amount of daniel (more content not included)... [facility] 01-27-2024 Note HNO ID: [id number] Author: SARAH BONNER RN Service: Care Management [...] noted. Pt has ortho f/u appt at [facility] 01/27. Will follow SIGNATURE: Sarah Bonner RN PATIENT NAME: Jackelyn Bradshaw DATE: January 27, 2024 TIME: 12:18 PM PAGER/CONTACT #: [phone] [facility] 01-25-2024 Note HNO ID: [id number] Author: SARAH BONNER RN Service: Care Management [...] 25, 2024 TIME: 1:31 PM PAGER/CONTACT #: [phone] [facility] 01-22-2024 Note HNO ID: [id number] Author: ARNIE GALVIN APRN.CNP Service: Hospital Medicine Author Type: Nurse Practitioner Type: Progress Notes Filed: 01/22/2024 12:32 Note Text: DEPARTMENT OF HOSPITAL MEDICINE PROGRESS NOTE SERVICE DATE: 01/22/2024 SERVICE TIME: 12:21 PM Hospital Medicine/Primary Attending: Hermes Richardson MD NIGHT AND WEEKEND COVERAGE: [facility] MARGARET 7a-7p Page [phone] 7p-7a Subjective INTERVAL HPI: - patient resting [...] site- erik in place. Post-op edema present. [place] removed from proximal and lateral sites. +blister [...] breast cancer, arthritis, HTN, CKD, presented to [facility] on 01/12/2024 following a fall at home. She was found to have left hip fracture and underwent ORIF on 01/13/2024. Post-op course was complicated by acute blood loss anemia likely 2/2 surgery; Hgb was 7.6 at [place]. FORTINO on CKD that was resolving at [place] with IVF; Cr 1.97. Lisinopril was initially held, but resumed at [place]. She is WBAT. She was started on Eliquis BID x30 days. She was DCd with sal due to urinary retention. Urine cx was + <1000 salina aguilar (no tx received). PT/OT recommended SNF [place], thus she was transferred to [facility] for further rehab services. Principal Problem: Aftercare - Hospitalization Dates: 01/12/2024-01/17/2024 - Hospitalization Diagnosis: left intertrochanteric fracture - Discharge Facility: [facility] - PT/OT Consult - Nutrition Consult - [...] Start scheduled t (more content not included)... [facility] 01-18-2024 Note HNO ID: [id number] Author: KEYSHAWN HERNANDEZ, RN Service: Nursing Author Type: Registered Nurse Type: Nursing Progress Note Filed: 01/18/2024 13:32 Note Text: Sal discontinued per LIP order. [facility] 01-18-2024 Note HNO ID: [id number] Author: SARAH BONNER, NARINDER Service: Care Management Author Type: Registered Nurse Type: Care Mgt Progress Note Filed: 01/18/2024 13:10 Note Text: CASE MANAGEMENT PROGRESS NOTE SERVICE DATE: 01/18/2024 SERVICE TIME: 1:01 PM Met with pt at bedside during rounds with Arnie Galvin CNP. Pt admitted from [facility] s/p left hip repair d/t fall- left [...] 18, 2024 TIME: 1:01 PM PAGER/CONTACT #: [phone] [facility] 01-17-2024 Discharge summary Note Date/Time January 17, 2024 10:53am [facility] Medical Records Department [address] [place] [address] Discharge Summary 01/17/24 1053 MR#: [id number] Acct: [id number] Name: JACKELYN BRADSHAW Rep #:[id number] : 1940 83 From: Dani Jaramillo DO PCP: Dr. Yoav Chakraborty MD Status:A DM IN Location: [facility] KS407-4 Providers Date of Admission: 01/12/24 Date of [...] patient to go to the TCU in [place] #2 essential hypertension-patient will remain on her [...] was seen in the emergency room at [facility] after sustaining a mechanical fall at home. Workup in the emergency room included x-rays which showed an intertrochanteric fracture of theleft hip. Patient was admitted to [place] [address] and seen in consultation by orthopedic surgery, [...] to go to the TCU unit at [facility] in [facility]. Patient required 1 unit of packed red [...] appear to be stable for discharge to [facility] in stable condition on 01/17/2024 Weight [...] in before D/C Order can be placed): Detention Facility Charges/Coding Visit Charges Inpatient E&M: 76445 Disch Hosp >30min 01/17/24 1402 <Electronically signed by Dani Jaramillo DO> Cosigner Signature (if applicable): CC: Dr. Yoav Chakraborty MD; Dr. Dani Jaramillo DO~ Signed [facility] Work Phone: 1(823) 839-443404-14-2024 Discharge summary Author Dani Jaramillo [facility] January 17, 2024 10:52am Note Date/Time January 17, 2024 10: 42am [facility] Medical Records Department [address] [place] [address] Transfer to [facility] MR#: [id number] Acct: [id number] Name: JACKELYN BRADSHAW Rep #:[id number] : 1940 83 From: Dani Jaramillo DO PCP: Dr. Yoav Chakraborty MD Status:A DM IN Certification of patient admission REQUIRED AT TIME OF ADMISSION. I CERTIFY THAT POST-HOSPITAL ECF SERVICES ARE REQUIRED TO BE GIVEN ON AN IN-PATIENT BASIS BECAUSE OF THE ABOVE NAMED PATIENT'S NEED FOR SKILLED NURSING CARE ON A CONTINUING BASIS FOR THE CONDITION(S) FOR WHICH HE/SHE WAS RECEIVING IN-PATIENT HOSPITAL SERVICES PRIOR TO HIS/HER TRANSFER TO THE [facility]. 01/17/24 1052<Electronically signed by Dani Jaramillo DO> [...] to go to a rehab unit in [place] #2 essential hypertension-patient will remain on her [...] in before D/C Order can be placed): Detention Facility 01/17/24 1052 <Electronically signed by Dani Jaramillo DO> Cosigner Signature (if applicable): CC: Dr. Yoav Chakraborty MD; Dr. Howard Fragoso MD; Dr. David Morgan MD ~ [facility] Work Phone: 1(317) 289-863704-14-2024 [facility] Medical Records Department [address] [place] [address] Discharge Summary 01/17/24 1053 MR#: [id number] Acct: [id number] Name: JACKELYN BRADSHAW Rep #: [id number] : 1940 83 From: Dani Jaramillo DO PCP: Dr. Yoav Chakraborty MD Status:ADM IN Location: [facility] IL505-6 Providers Date of Admission: 01/12/24 Date of [...] patient to go to the TCU in [place] #2 essential hypertension-patient will remain on her [...] was seen in the emergency room at [facility] after sustaining a mechanical fall at home. Workup in the emergency room included x- rays which showed an intertrochanteric fracture of the left hip. Patient was admitted to [place] [address] and seen in consultation by orthopedic surgery, [...] to go to the TCU unit at [facility] in [facility]. Patient required 1 unit of packed red [...] answer simple questions appropriat (more content not included)...[facility]04-13-2024 Progress note Author Dani Jaramillo [facility] January 16, 2024 1:12pm Note Date/Time January 16, 2024 1:1 3pm [facility] Medical Records Department [address] [place] [address] Progress Note - Hospitalist 01/16/24 1309 MR#: [id number] Acct: [id number] Name: JACKELYN BRADSHAW Rep #:[id number] : 1940 83 From: Dani Jaramillo DO PCP: Dr. Yoav Chakraborty MD Status:A DM IN Location: [facility] GB310-8 Reason for Visit Reason for Visit: Diagnoses [...] evaluate whether she can go to the [place] rehab unit. Objective Data Objective Data Vital [...] % (Auto) Cancelled, Lymph % (Auto) Cancelled, Dewitt % (Auto) Cancelled, Eos % (Auto) Cancelled, [...] Drop Cells Cancelled, Ovalocytes Cancelled, Stomatocytes Cancelled, [place] Bodies Cancelled, Julianna Cells Cancelled, Bite Cells [...] to go to a rehab unit in [place] #2 essential hypertension-patient will remain on her [...] 35 minutes Charges/Coding Visit Charges Inpatient E&M: 06545 Subs Hosp L2 01/16/24 1312 <Electronically signed by Dani Jaramillo DO> Cosigner Signature (if applicable): CC: ~ Signed [facility] Work Phone: 1(198) 551-135304-12-2024 Progress note Author Dani Jaramillo [facility] January 15, 2024 11:54am Note Date/Time January 15, 2024 11: 54am [facility] Medical Records Department [address] [place] [address] Progress Note - Hospitalist 01/15/24 1151 MR#: [id number] Acct: [id number] Name: JACKELYN BRADSHAW Rep #:[id number] : 1940 83 From: Dani Jaramillo DO PCP: Dr. Yoav Chakraborty MD Status:A DM IN Location: [facility] ZU557-2 Reason for Visit Reason for Visit: Diagnoses Malignant neoplasm of unspecified site of left female breast (01/12/24) Unspecified atrial fibrillation (01/12/24) Other osteoporosis without current pathological fracture (01/12/24) Displaced intertrochanteric fracture of left femur, initial encounter for closedfracture (01/12/24) Subjective Subjective Patient was seen and examined today, her family members were in the room, we arecurrently awaiting approval for her to go to [place] rehab unit. Patient is alert and sitting [...] to go to a rehab unit in [place] #2 essential hypertension-patient will remain on her [...] 35 minutes Charges/Coding Visit Charges Inpatient E&M: 15239 Subs Hosp L2 01/15/24 1154 <Electronically signed by Dani Jaramillo DO> Cosigner Signature (if applicable): CC: ~ Signed [facility] Work Phone: 1(929) 365-153404-11-2024 Progress note Author Dani Jaramillo [facility] January 14, 2024 5:15pm Note Date/Time January 14, 2024 5:1 5pm [facility] Medical Records Department [address] [place] [address] Progress Note - Hospitalist 01/14/24 1710 MR#: [id number] Acct: [id number] Name: JACKELYN BRADSHAW Rep #:[id number] : 1940 83 From: Dani Jaramillo DO PCP: Dr. Yoav Chakraborty MD Status:A DM IN Location: [facility] DP872-1 Reason for Visit Reason for Visit: Diagnoses [...] 83.2 H, Lymph % (Auto) 8.0 L, Dewitt % (Auto) 7.6, Eos % (Auto) 0.4, [...] 23:33 EDT Reading Location ID and State: [facility] [place] Tel , Service support , [...] 35 minutes Charges/Coding Visit Charges Inpatient E&M: 90277 Subs Hosp L2 01/14/24 0825 <Electronically signed by Dani Jaramillo DO> Cosigner Signature (if applicable): CC: ~ Signed [facility] Work Phone: [phone]) 217-470904-11-2024 Progress note Author Naila Hoover [facility] January 14, 2024 1:50pm Note Date/Time January 14, 2024 1:5 0pm [facility] Medical Records Department [address] [place] [address] Progress Note - Orthopedic 01/14/24 1343 MR#: [id number] Acct: [id number] Name: JACKELYN BRADSHAW Rep #:[id number] : 1940 83 From: Naila ONEILL PCP: Dr. Yoav Chakraborty MD Status:A DM IN [facility] Subjective Subjective Patient is s/p left cephalomedullary [...] 83.2 H, Lymph % (Auto) 8.0 L, Dewitt % (Auto) 7.6, Eos % (Auto) 0.4, [...] Cosigner Signature (if applicable): CC: ~ Signed [facility] Work Phone: 1(807) 269-256204-10-2024 Progress note Author Dani Jaramillo [facility] January 13, 2024 5:35pm Note Date/Time January 13, 2024 5:3 5pm [facility] Medical Records Department [address] [place] [address] Progress Note - Hospitalist 01/13/24 1728 MR#: [id number] Acct: [id number] Name: JACKELYN BRADSHAW Rep #:[id number] : 1940 83 From: Dani Jaramillo DO PCP: Dr. Yoav Chakraborty MD Status:A DM IN Location: [place] [address] Reason for Visit Reason for Visit: Diagnoses [...] 77.8 H, Lymph % (Auto) 13.3 L, Dewitt % (Auto) 8.0, Eos % (Auto) 0.0, [...] 35 minutes Charges/Coding Visit Charges Inpatient E&M: 95382 Subs Hosp L2 01/13/24 5733 <Electronically signed by Dani Jaramillo DO> Cosigner Signature (if applicable): CC: ~ Signed [facility] Work Phone: 1(342) 852-964304-10-2024 Procedure [facility] 01-13-2024 Consult note Author David Morgan [facility] January 13, 2024 1:53pm Note Date/Time January 13, 2024 1:5 3pm [facility] Medical Records Department [address] [place] [address] Consultation 01/13/24 1343 MR#: [id number] Acct: [id number] Name: JACKELYN BRADSHAW Rep #:[id number] : 1940 83 From: David Hylton PCP: Dr. Yoav Chakraborty MD Status:A DM IN Location: [place]3 DH431-9 Assessment & Plan Assessment/Plan (1) Fracture, intertrochanteric, [...] is not currently on any anticoagulation medications. [facility] Medical History (Updated 01/13/24 @ 13:49 by [...] Clarity Clear, Urine pH 6.0, Ur Specific [place] 1.020, Urine Protein 30 H, Urine Glucose [...] 88.1 H, Lymph % (Auto) 8.4 L, Dewitt % (Auto) 2.6, Eos % (Auto) 0.1, [...] 77.8 H, Lymph % (Auto) 13.3 L, Dewitt % (Auto) 8.0, Eos % (Auto) 0.0, [...] Fragoso MD; Dr. David Morgan MD~ Signed [facility] Work Phone: 1(630) 710-135404-10-2024 [facility] Medical Records Department [address] [place] [address] Consultation 01/13/24 1343 MR#: [id number] Acct: [id number] Name: JACKELYN BRADSHAW Rep #: [id number] : 1940 83 From: David Morgan MD PCP: Dr. Yoav Chakraborty MD Status:ADM IN Location: [facility] AG721-3 Assessment Plan Assessment/Plan (1) Fracture, intertrochanteric, left [...] is not currently on any anticoagulation medications. [facility] Medical History (Updated 01/13/24 @ 13:49 by [...] Verified 01/12/24 14:01 [Fro (more content not included)...[facility]04-09-2024 History and physical note Author Howard Fragoso [facility] January 12, 2024 7:42pm Note Date/Time January 12, 2024 7:[address] [facility] Medical Records Department [address] [place] [address] H&P Exam - Hospitalist 01/12/241934 MR#: [id number] Acct: [id number] Name: JACKELYN BRADSHAW Rep #:[id number] : 1940 83 From: Howard rios MD PCP: Dr. Yoav Chakraborty MD Status:A DM IN Location: [facility] [id number] HPI - General General Date of Admission: [...] that did not demonstrate any additional findings. [facility] Medical History (Updated 01/12/24 @ 19:38 by [...] Clarity Clear, Urine pH 6.0, Ur Specific [place] 1.020, Urine Protein 30 H, Urine Glucose [...] 88.1 H, Lymph % (Auto) 8.4 L, Dewitt % (Auto) 2.6, Eos % (Auto) 0.1, [...] 16:53 EDT Reading Location ID and State: [facility] / [place] Tel , Service support , Hip/Pelvis X-Ray 01/12/24 14:55 IMPRESSION: Comminuted left intertrochanteric fracture. Electronically Signed: Naga Garcia MD at 15:10 EDT , Lower Extremity CT 01/12/24 15:25 IMPRESSION: Acute comminuted intertrochanteric fracture of the left femur. Electronically Signed: Jimi Rubin MD at 16:48 EDT Reading Location ID and State: [facility] / [place] Tel , Service support , Assessment & Plan Assessment/Plan (1) Fracture, intertrochanteric, left femur: PLAN: Plan 1. Left intertrochanteric femur fracture secondary to mechanical fall ? She did have a vitamin D checked in 2022 that was normal ? Will consult orthopedic surgery for repair, likely tomorrow ? PT/OT ? She would like to go to [facility] for SNF placement if necessary ? Continue with pain medication ? N.p.o. after midnight 2. Essential HTN ? Blood pressures are currently stable ? Can resume her home lisinopril and Norvasc ? We will monitor make adjustments as necessary 3. Anxiety/depression/dementia ? Stable ? Can resume all of her home medications DVT: SCDs Charges/Coding Visit Charges Inpatient E&M: 42336 Init Hosp L2 01/12/241941 <Electronically signed by Howard Fragoso MD> Cosigner Signature (if applicable): CC: Dr. Yoav Chakraborty MD; Dr. Howard Fragoso MD~ Signed [facility] Work Phone: [phone]) 785-103304-09-2024 Discharge summary Author Chacho Epperson [facility] January 12, 2024 6:27pm Note Date/Time January 12, 2024 3:50 pm [facility] Medical Records Department [address] [place] [address] Emergency Department Summary 01/12/24 MR#: [id number] Acct: [id number] Name: JACKELYN BRADSHAW Rep #:[id number] : 1940 83 From: Chacho Epperson DO PCP: Dr. Yoav Chakraborty MD Status:A DM IN Location: [facility] UL188-1 [facility] History of Present Illness Chief Complaint: Lower Extremity Injury [facility] Medical History Chronic kidney disease Dementia Hx [...] 88.1 H Lymph % (Auto) 8.4 L Dewitt % (Auto) 2.6 Eos % (Auto) 0.1 [...] Clarity Clear Urine pH 6.0 Ur Specific [place] 1.020 Urine Protein 30 H Urine Glucose [...] 16:53 EDT Reading Location ID and State: [facility] / [place] Tel , Service support , Hip/Pelvis X-Ray [...] your Primary Care Provider. Call [facility] ([phone]) or report to the closest Emergency Room. Call 911 if necessary. 01/12/24 1827 <Electronically signed by Chacho Epperson DO> Cosigner Signature (if applicable): CC: Dr. Yoav Chakraborty MD ~ Signed [facility] Work Phone: 1([phone]) 317-587804-09-2024 Discharge summary Author Chacho Epperson [facility] January 12, 2024 6:27pm Note Date/Time January 12, 2024 3:50 pm [facility] Medical Records Department [address] [place] [address] Emergency Department Summary 01/12/24 MR#: [id number] Acct: [id number] Name: JACKELYN BRADSHAW Rep #:[id number] : 1940 83 From: Chacho Epperson DO PCP: Dr. Yoav Chakraborty MD Status:A DM IN Location: [address] History of Present Illness Chief Complaint: Lower Extremity Injury [facility] Medical History Chronic kidney disease Dementia Hx [...] 88.1 H Lymph % (Auto) 8.4 L Dewitt % (Auto) 2.6 Eos % (Auto) 0.1 [...] Clarity Clear Urine pH 6.0 Ur Specific [place] 1.020 Urine Protein 30 H Urine Glucose [...] your Primary Care Provider. Call [facility] ([phone]) or report to the closest Emergency Room. Call 911 if necessary. 01/12/241826 <Electronically signed by Chacho Epperson DO> Cosigner Signature (if applicable): CC: Dr. Yoav Chakraborty MD ~ Signed [facility] Work Phone: 1(779) 368-896103-08-2024 History of Present illness Narrative* Elle Mcdermott MA - 12/11/2023 12:04 PM EST Market Development Specialist present: Breast Exam Elle Mcdermott MA * [...] found to be consistent with ER positive/99%, TN +90% and HER2 negative by IHC. The [...] months. Leonid Graham MD [facility] History of Present illness Narrative* Janett Betancourt APRN.CNP - 11/12/2023 5:13 PM EST November 12, 2023 5:[address] Graham patient Order for Faslodex signed for today to facilitate treatment Janett Betancourt APRN.ROBOTICS MECHANIC [facility]11[facility] History of Present illness Narrative* Leonid Graham [...] found to be consistent with ER positive/99%, TN +90% and HER2 negative by IHC. The [...] Abs Lymph 1.00 - 4.00 k/uL 2.11 Dewitt% % 6.4 Abs Dewitt <0.87 k/uL 0.53 Eosin% % 0.7 Abs [...] today. Leonid Graham MD documented in this [facility]10-19-2023 History of Present illness Narrative* Janett Betancourt APRN.ROBOTICS MECHANIC - 07/23/2023 3:58 PM EDT July 23, 2023 3:[address] Graham patient Order for Faslodex signed for today to facilitate treatment Janett Betancourt APRN.ROBOTICS MECHANIC documented [facility]09[facility] History of Present illness Narrative* Janett Betancourt APRN.CNP - 06/26/2023 9:30 AM EDT June 25, 2023 4:[address] Graham patient Order for Faslodex signed for today to facilitate treatment Janett Betancourt APRN.ROBOTICS MECHANIC documented [facility]08[facility]-2023 History of Present illness Narrative* Janett Betancourt APRN.CNP - 05/29/2023 9:10 AM EDT May 29, 2023 9:[address] Graham patient Order for Faslodex signed for today to facilitate treatment Janett Betancourt APRN.ROBOTICS MECHANIC documented [facility] this [facility] Telephone encounter Note * Telephone Encounter - Ailin Stanley RN - 05/02/2023 12:46 PM EDT S: Patient calling the [facility] for a medication refill. B: Medication: Citalopram 20 mg . A. Daughter requesting refill. R: Paged contact representative provider. Dr. Art prescribed Citalopram 20 mg 2 times daily. Dispense 60. No refills. Called [facility] @ [phone]. Daughter notified. Message sent to provider via right fax. Your fax has been successfully sent to Dr. Chakraborty at [phone]. Reason for Disposition [1] Prescription refill request for NON-ESSENTIAL medicine (i.e., no harm to patient if med not taken) AND [2] triager unable to refill per department policy Protocols used: Medication Refill and Renewal [id number] [id number] Miscellaneous Notes* Telephone Encounter - Ailin Stanley RN - 05/02/2023 12:46 PM EDT S: Patient calling the [facility] for a medication refill. B: Medication: Citalopram 20 mg . A. Daughter requesting refill. R: Paged contact representative provider. Dr. Art prescribed Citalopram 20 mg 2 times daily. Dispense 60. No refills. Called [facility] @ [phone]. Daughter notified. Message sent to provider via right fax. Your fax has been successfully sent to Dr. Chakraborty at [phone]. Reason for Disposition [1] Prescription refill request for NON-ESSENTIAL medicine (i.e., no harm to patient if med not taken) AND [2] triager unable to refill per department policy Protocols used: Medication Refill and Renewal [id number] documented in this encounterSKettering Health [id number] History of Present illness Narrative* Janett Betancourt APRN.AFSHIN - 05/01/2023 9:42 AM EDT May 01, 2023 9:[address] Graham patient Order for Faslodex signed for today to facilitate treatment Janett Betancourt APRN.CNP documented in this [facility] History of Present illness Narrative* Janett Betancourt APRN.CNP - 04/03/2023 9:00 AM EDT April 02, 2023 5:[address] Graham patient Order for Faslodex signed for today to facilitate treatment Janett Betancourt APRN.CNP documented in this encounterF[facility]03-10-2023 History of Present illness Narrative* Leonid Graham [...] in 2012. The patient was followed at [facility]. [I do not have any records of [...] cancer. The tumor was ER strongly +99% TN +90% and HER-2 negative by IHC. PET [...] with Dr. Hammond. She is also on [id number] mg daily. On Faslodex and receiving Zometa [...] low Leonid Graham MD documented in this encounterF[facility]01-13-2023 History of Present illness Narrative* Janett Betancourt APRN.CNP - 10/17/2022 8:50 AM EST October 17, 2022 8:[address] Graham patient Order for Faslodex signed for today to facilitate treatment Last received on 09/19/2022 Janett Betancourt APRN.ROBOTICS MECHANIC documented in this encounterF[facility]12-02-2022 History of Present illness Narrative* Leonid Graham [...] in 2012. The patient was followed at [facility]. [I do not have any records of [...] cancer. The tumor was ER strongly +99% TN +90% and HER-2 negative by IHC. PET [...] with Dr. Hammond. She is also on [id number] mg daily. On Faslodex and receiving Zometa [...] daughter. Leonid Graham MD documented in this encounterF[facility]11-29-2022 Miscellaneous Notes* Telephone Encounter - Lizbet Doyle LPN - 09/02/2022 3:18 PM EST Approval Reference Number: [id number] Dates of Service: 09/27/2022 - 02/14/2022 Servicing Provider: [facility] - Requesting Provider: Dr. Gladys Beltrán, fulvestrant, 25mg documented in this encounterFayette County [facility] Hospital11-11-2022 Miscellaneous Notes* Telephone Encounter - Theresa Lemon RN - 08/15/2022 3:12 PM EST Attempted to call patient to reschedule Faslodex Spoke with Daughter Tez - per daughter was admitted to geriatric psych unit in [place]. Rescheduled injection to next Thursday. Theresa Lemon, RN documented in this encounterF[facility] Hospital10-14-2022 Miscellaneous Notes* Allied Health - DEBIBE Palacios - 07/18/2022 1:15 PM EDT Radiology [...] 18, 2022 1:14 PM documented in this encounterFayette [facility] Hospital10-07-2022 History of Present illness Narrative* Janett Betancourt APRN.CNP - 07/11/2022 8:31 AM EDT July 11, 2022 8:[address] Graham patient Order for Faslodex signed for today to facilitate treatment Last received on 06/13/2022 Janett Betancourt APRN.CNP documented in this encounterF[facility] Hospital10-03-2022 Miscellaneous Notes* Telephone Encounter - Lizbet Doyle [...] advise. Lizbet Doyle LPN documented in this encounterFayette County [facility] Hospital08-23-2022 History of Present illness Narrative* RT [place](R) [...] 27, 2022 10:36 AM documented in this encounterFayette County [facility] Hospital08-08-2022 Miscellaneous Notes* Telephone Encounter - Dania Charles Ma - 05/12/2022 3:37 PM EDT Patient's request for medication is as follows: Pending Prescriptions Disp Refills ONDANSETRON HCL 8 MG TABLET 60 tablet 0 Sig: TAKE 1 TABLET BY MOUTH EVERY 12 HOURS NEEDED FOR NAUSEA AND VOMITING SANDI: Yes Prescription(s) as above. Please process accordingly. Dania Charles Ma documented in this encounterFayette County [facility] Hospital07-15-2022 History of Present illness Narrative* Leonid Graham [...] in 2012. The patient was followed at [facility]. [I do not have any records of [...] cancer. The tumor was ER strongly +99% TN +90% and HER-2 negative by IHC. PET [...] with Dr. Hammond. She is also on [id number] mg daily. On Faslodex and receiving Zometa [...] appropriately Leonid Graham MD documented in this encounterFayette County [facility] Hospital07-12-2022 Miscellaneous Notes* Telephone Encounter - Dania Charles Ma - 04/15/2022 9:43 AM EDT Patient's request for medication is as follows: Pending Prescriptions Disp Refills OLANZAPINE 5 MG TABLET 30 tablet 1 Sig: TAKE 1 TABLET BY MOUTH AT BEDTIME NEEDED SANDI: Yes Prescription(s) as above. Please process accordingly. Dania Charles Ma documented in this encounterF[facility]06-14-2022 Miscellaneous Notes* Telephone Encounter - Dania Charles Ma - 03/18/2022 9:27 AM EDT Patient's request for medication is as follows: Pending Prescriptions Disp Refills ONDANSETRON HCL 8 MG TABLET 60 tablet 0 Sig: TAKE 1 TABLET BY MOUTH EVERY 12 HOURS NEEDED FOR NAUSEA AND VOMITING SANDI: Yes Prescription(s) as above. Please process accordingly. Dania Charles Ma documented in this encounterF[facility] Hospital06-10-2022 History of Present illness Narrative* Janett Betancourt APRN.CNP - 03/14/2022 9:15 AM EDT March 14, 2022 9:[address] Graham patient Order for monthly Fasoldex signed for today to facilitate treatment Unfortunately, due to her creatine clearance being < 30 will need to hold Zometa Follow up appointment scheduled for 04/17/[address] Gladys Betancourt APRN.ROBOTICS MECHANIC * Karlie Ivory RN - 03/14/2022 8:58 AM EDT Zometa held today (03/14/22) due to elevated creatinine clearance. Karlie Ivory RN March 14, 2022 11:07 AM documented in this encounterFayette County [facility] Hospital06-10-2022 Miscellaneous Notes* Telephone Encounter - Dania Charles [...] accordingly. Dania Charles Ma documented in this encounterFayette County [facility] Hospital05-19-2022 Miscellaneous Notes* Letter - Mammography Coordinator - 02/20/2022 11:25 AM EDT February 20, 2022 PID: [id number] Jackelyn Bradshaw [address] [place] [address] Dear Ms. Bradshaw, We are pleased to [...] report will be [facility] as part of [facility] permanent medical record and are available for your continuing care. Thank you for allowing us to help in meeting your health care needs. Sincerely, Dr. Colindres Interpreting Radiologist [facility] (Normal over 40) documented in this encounterFayette County Memorial Hospital05-19-2022 History of Present illness Narrative* RT Jordy(R) [...] 20, 2022 9:58 AM documented in this [facility]05-11-2022 History of Present illness Narrative* Janett Betancourt APRN.CNP - 02/12/2022 10:50 AM EDT February 12, 2022 10:[address] Graham patient Order for Faslodex signed for today to facilitate treatment Last received on 01/13/2022 Janett Betancourt APRN.CNP documented in this [facility]05-02-2022 Miscellaneous Notes* Telephone Encounter - Dania Charles Ma - 02/03/2022 10:07 AM EDT Patient's request for medication is as follows: Pending Prescriptions Disp Refills OLANZAPINE 5 MG TABLET 30 tablet 0 Sig: TAKE 1 TABLET BY MOUTH AT BEDTIME NEEDED SANDI: Yes Prescription(s) as above. Please process accordingly. Dania Charles Ma documented in this encounterF[facility] Hospital04-04-2022 Miscellaneous Notes* Telephone Encounter - Dania Charles Ma - 01/06/2022 9:35 AM EDT Patient's request for medication is as follows: Pending Prescriptions Disp Refills OLANZAPINE 5 MG TABLET 30 tablet 0 Sig: TAKE 1 TABLET BY MOUTH AT BEDTIME NEEDED SANDI: Yes Prescription(s) as above. Please process accordingly. 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 Encounter for long-term (current) use of medications Encounter for long-term (current) use of other medications documented in this encounter [facility]* Diagnosis Cancer of breast, intraductal, 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 documented in this encounter [facility]* Diagnosis Cancer of breast, intraductal, 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 [facility]* Diagnosis Cancer of breast, intraductal, left- Primary documented in this encounter [facility]* Diagnosis Malignant neoplasm of female breast, unspecified estrogen receptor status, unspecified laterality, unspecified site of breast (HCC)- Primary Cancer of breast, intraductal, 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 documented in this encounter [facility]* Diagnosis Cancer of breast, intraductal, 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 [facility]* Diagnosis Cancer of breast, intraductal, left- Primary documented in this encounter [facility]* Diagnosis Cancer of breast, intraductal, left- Primary documented in this encounter [facility]* Diagnosis Cancer of breast, intraductal, 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 [facility] noteNo assessment information availableWMartins Ferry [facility] Work Phone: Evaluation note* Diagnosis Cancer of breast, intraductal, left- Primary [facility]* Diagnosis Cancer of breast, intraductal, left- Primary [facility]* Diagnosis Cancer of breast, intraductal, left- Primary [facility]* Diagnosis Cancer of breast, intraductal, left- Primary documented in this encounter [facility]* Diagnosis Cancer of breast, intraductal, left- Primary [facility]* Diagnosis Cancer of breast, intraductal, left- Primary [facility]* Diagnosis Malignant neoplasm of female breast, unspecified estrogen receptor status, unspecified laterality, unspecified site of breast (HCC)- Primary Cancer of breast, intraductal, left [facility]* Diagnosis Cancer of breast, intraductal, left- Primary Encounter for antineoplastic immunotherapy documented in this encounter [facility]* Diagnosis Cancer of breast, intraductal, left- Primary [facility]* Diagnosis Cancer of breast, intraductal, left- Primary [facility]* Diagnosis Cancer of breast, intraductal, left- Primary documented in this [facility]* Diagnosis Cancer of breast, intraductal, left- Primary documented [facility]* Diagnosis Need for influenza vaccination- Primary Need for prophylactic vaccination and inoculation against influenza Cancer of breast, intraductal, left documented in this encounter [facility]* Diagnosis Cancer of breast, intraductal, left- Primary Encounter for long-term (current) use of medications Encounter for long-term (current) use of other medications documented in this encounter [facility]* Diagnosis Cancer of breast, intraductal, left- Primary documented in this encounter [facility]* Diagnosis Cancer of breast, intraductal, left- Primary documented in this encounter [facility]* Diagnosis Onset Date Resolution Status Atrial fibrillation acute Fracture, intertrochanteric, left femur acute Invasive ductal carcinoma of left breast, stage 2 acute Osteoporosis chronic [facility] Work Phone: Evaluation note* Diagnosis Cancer of breast, intraductal, left- Primary [facility]* Diagnosis Neoplasm of breast, distant metastasis staging category m1: distant detectable metastasis found by clinical and radiographic means and/or histologically proven larger than 0.2 mm, left (HCC)- Primary [facility]* Diagnosis Cancer of breast, intraductal, left- Primary Encounter for long-term (current) use of medications Encounter for long-term (current) use of other medications Cancer of breast, intraductal, left- Primary [facility]* Diagnosis Cancer of breast, intraductal, left- Primary [facility]* Diagnosis Cancer of breast, intraductal, left- Primary [facility]* Diagnosis Cancer of breast, intraductal, left- Primary [facility]* Diagnosis Malignant neoplasm of female breast, unspecified estrogen receptor status, unspecified laterality, unspecified site of breast (HCC)- Primary History of cancer metastatic to bone [facility]* Diagnosis Cancer of breast, intraductal, left- Primary Encounter for long-term (current) use of medications Encounter for long-term (current) use of other medications [facility]* Diagnosis Cancer of breast, intraductal, left- Primary [facility]* Diagnosis Cancer of breast, intraductal, left- Primary [facility]* Diagnosis Cancer of breast, intraductal, left- Primary 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 documented [facility]* Diagnosis Cancer of breast, intraductal, left- Primary [facility]* Diagnosis Cancer of breast, intraductal, left- Primary [facility]* Diagnosis 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, estrogen receptor positive, unspecified laterality, unspecified site of breast (HCC)- Primary [facility]* Diagnosis Cancer of breast, intraductal, left- Primary documented in this encounter [facility]* Diagnosis 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, estrogen receptor positive, unspecified laterality, unspecified site of breast (HCC)- Primary documented in this encounter [facility]* Diagnosis Cancer of breast, intraductal, left- Primary documented in this encounter [facility]* Diagnosis Malignant neoplasm of left breast in female, estrogen receptor positive, unspecified site of breast (HCC)- Primary [facility] Additional Instructions Thank you for [...] care physician for further outpatient evaluation and management.[facility] Work Phone: Patient's home Plan of care [...] bony prominences, Routine skin care and Notifying [facility] clinician of changes to skin integrity [...] treatment side effects. documented in this encounter [facility]* Visit Details Visit Type -SN EVAL Discipline -Detention Problems Problem Description Start Date Status Goals [...] instructed on maintaining skin integrity including: Notifying [facility] clinician of changes to skin integrity [...] and pain management. documented in this encounter [facility] home Plan of care note* Visit Details [...] home exercise program. documented in this encounter [facility]'s home Plan of care note* Visit Details [...] and functional transfers. documented in this encounter [facility]'s home Plan of care note* Visit Details Visit Type -TOOL MACHINIST ROUTINE Discipline -Physical Therapy Problems Problem Description [...] home exercise program. documented in this encounter [facility]* Visit Details [...] reps 1 min documented in this encounter [facility]* Visit Details Visit Type -SN DISC DC W VIS IT Discipline -Detention Problems Problem Description Start Date Status Goals [...] surgical care precautions. documented in this encounter [facility]'s home Plan of care note* Visit Details Visit Type -TOOL MACHINIST ROUTINE Discipline -Physical Therapy Problems Problem Description [...] seated and supine ex and to have PT/TOOL MACHINIST present for standing exercises. Physical Therapy Gait [...] blood pressure tracking. documented in this encounter [facility]* Visit Details Visit Type -TOOL MACHINIST ROUTINE Discipline -Physical Therapy Problems Problem Description [...] home exercise program. documented in this encounter [facility]* Visit Details [...] support on walker documented in this encounter [facility]'s home Plan of care note* Visit Details Visit Type -TOOL MACHINIST ROUTINE Discipline -Physical Therapy Problems Problem Description [...] to call provider. documented in this encounter [facility]* Visit Details [...] no c/o pain documented in this encounter [facility] home Plan of care note* Visit Details Visit Type -TOOL MACHINIST ROUTINE Discipline -Physical Therapy Problems Problem Description [...] home exercise program. documented in this encounter [facility]'s home Plan of care note* Visit Details [...] to call provider. documented in this encounter [facility]* Visit Details Visit Type -TOOL MACHINIST ROUTINE Discipline -Physical Therapy Problems Problem Description [...] walker safety/ management. documented in this encounter [facility] for visit Narrative* [place] Prior Authorization (Routine) - Authorized Specialty Diagnoses / Procedures Referred By Lucia bravo Referred To Contact Diagnoses Cancer of breast, intraductal, left Malignant neoplasm of unspecified site of unspecified female breast Procedures INJECTION, [place] [address] [place] [address] Phone: tel: fax: Hematology/Oncology [address] [address] Phone: tel: Referral ID Status Reason Start Date Expiration Date V isits Requested Visits Authorized [id number] Authorized 09/04/2020 10/04/2025 99 99 [facility] for visit Narrative* [place] Prior Authorization (Routine) - Authorized Specialty Diagnoses / Procedures Referred By Lucia bravo Referred To Contact Diagnoses Cancer of breast, intraductal, left Malignant neoplasm of unspecified site of unspecified female breast (HCC) Procedures INJECTION, [place] [address] [place] [address] Phone: tel: fax: Hematology/Oncology [address] [address] Phone: tel: Referral ID Status Reason Start Date Expiration Date V isits Requested Visits Authorized [id number] Authorized 09/04/2020 10/04/2025 99 99 [facility] Summary Purpose Family History No Family History Records Found Relationship Condition Age at Onset Recorded Date/T gómez father Hypertension Unknown mother Alzheimer's disease Unknown Diabetes mellitus Unknown Hypertension Unknown Advance Directives No Advanced Directives Records FoundDocuments on File Type Date Recorded Patient Pill Machine Operator Expl anation Advance Directive(s) 06/18/2021 12:03 AM Advance Directive(s) 08/03/2020 6:50 PM Advance Directive(s) 12/31/2018 3:47 PM Advance Directive(s) 03/07/2018 11:28 PM Documents on File Type Date Recorded Patient Pill Machine Operator Expl anation Advance Directive(s) 06/18/2021 12:03 AM Advance Directive(s) 08/03/2020 6:50 PM Advance Directive(s) 12/31/2018 3:47 PM Advance Directive(s) 03/07/2018 11:28 PM Advance Directive Response Recorded Date/ Time Living Will Yes August 05 7:26pm Power of Ror Engineer Yes August 05, 2022 7:26pm Name of Medical Power of Ror Engineer TEZ SMITH August 05, 2022 7:26pm Advance Directive Response Recorded Date/ Time Living Will Yes August 05 6:26pm Power of Ror Engineer Yes August 05, 2022 6:26pm Name of Medical Power of Ror Engineer TEZ SMITH August 05, 2022 6:26pm Advance Directive Response Recorded Date/ Time Living Will Yes March 08, 2023 5 :27pm Power of Ror Engineer No March 08, 2023 5:27pm Advance Directive Response Recorded Date/ Time Living Will Yes March 08, 2023 4 :27pm Power of Ror Engineer No March 08, 2023 4:27pm Advance Directive Response Recorded Date/ Time Living Will Yes January 12, 2024 2:08pm Power of Ror Engineer Yes January 11 2:08pm Name of Medical Power of Ror Engineer Tez Smith January 12, 2024 2:08pm Advance Directive Response Recorded Date/ Time Name of Medical Power of Ror Engineer Tez Smith -daughter January 12, 2024 6:38pm Living Will Yes January 12, 2024 6:38pm Power of Ror Engineer Yes January 11 6:38pm Date Activated Date [...] COMPUTED TOMOGRAPHY THORAX W/[place] [address] [place] [address] Ct Imaging Referral ID Status Reason Start Date Expiration Date Visits Requested Visits Authorized [id number] Pending Review Auto-Generat ed Referral 05/10/2022 06/09/2023 1 1 Specialty Diagnoses / Procedures Referred By Lucia bravo Referred To Contact CT IMAGING Diagnoses Malignant neoplasm of female breast, unspecified estrogen receptor status, unspecified laterality, unspecified site of breast (HCC) Procedures CT ABD/PEL W IVCON CT ABD & PELVIS W/[place] [address] [place] [address] Ct Imaging Referral ID Status Reason Start Date Expiration Date Visits Requested Visits Authorized [id number] Pending Review Auto-Generat ed Referral 05/10/2022 06/09/2023 [...] section and content) DATE CREATED AUTHOR 07/11/2021 [facility] DATE CREATED AUTHOR AUTHOR'S ORGANIZ ATION 07/02/2022 [facility] DATE CREATED AUTHOR AUTHOR'S ORGANIZ ATION 05/02/2023 [facility] DATE CREATED AUTHOR AUTHOR'S ORGANIZ ATION 02/28/2024 [facility] DATE CREATED AUTHOR AUTHOR'S ORGANIZ ATION 10/14/2024 [facility] DATE CREATED AUTHOR AUTHOR'S ORGANIZ ATION 02/10/2025 [facility] DATE CREATED AUTHOR AUTHOR'S ORGANIZ ATION 08/11/2025 [facility] DATE CREATED AUTHOR AUTHOR'S ORGANIZ ATION 08/11/2025 [facility] Source Comments (unrecognize d section and content) In the event this informatio n is protected by the Federal Confidentiality of Alcohol and Drug Abuse Patient Records regulations: The Federal rules restrict any use of the information to criminally investigate or prosecute any alcohol or drug abuse patient.[facility] the event this information is protected by the Federal Confidentiality of Alcohol and Drug Abuse Patient Records regulations: The Federal rules restrict any use of the information to criminally investigate or prosecute any alcohol or drug abuse patient.[facility]In the event this information is protected by the Federal Confidentiality of Alcohol and Drug Abuse Patient Records regulations: The Federal rules restrict any use of the information to criminally investigate or prosecute any alcohol or drug abuse patient.[facility]In the event this information is protected by the Federal Confidentiality of Alcohol and Drug Abuse Patient Records regulations: The Federal rules restrict any use of the information to criminally investigate or prosecute any alcohol or drug abuse patient.[facility]In the event this information is protected by the Federal Confidentiality of Alcohol and Drug Abuse Patient Records regulations: The Federal rules restrict any use of the information to criminally investigate or prosecute any alcohol or drug abuse patient.[facility] HospitalIn the event this information is protected by the Federal Confidentiality of Alcohol and Drug Abuse Patient Records regulations: The Federal rules restrict any use of the information to criminally investigate or prosecute any alcohol or drug abuse patient.[facility]In the event this information is protected by the Federal Confidentiality of Alcohol and Drug Abuse Patient Records regulations: The Federal rules restrict any use of the information to criminally investigate or prosecute any alcohol or drug abuse patient.[facility] HospitalIn the event this information is protected by the Federal Confidentiality of Alcohol and Drug Abuse Patient Records regulations: The Federal rules restrict any use of the information to criminally investigate or prosecute any alcohol or drug abuse patient.[facility]In the event this information is protected by the Federal Confidentiality of Alcohol and Drug Abuse Patient Records regulations: The Federal rules restrict any use of the information to criminally investigate or prosecute any alcohol or drug abuse patient.[facility]In the event this information is protected by the Federal Confidentiality of Alcohol and Drug Abuse Patient Records regulations: The Federal rules restrict any use of the information to criminally investigate or prosecute any alcohol or drug abuse patient.[facility] HospitalIn the event this information is protected by the Federal Confidentiality of Alcohol and Drug Abuse Patient Records regulations: The Federal rules restrict any use of the information to criminally investigate or prosecute any alcohol or drug abuse patient.[facility] HospitalIn the event this information is protected by the Federal Confidentiality of Alcohol and Drug Abuse Patient Records regulations: The Federal rules restrict any use of the information to criminally investigate or prosecute any alcohol or drug abuse patient.[facility] HospitalIn the event this information is protected by the Federal Confidentiality of Alcohol and Drug Abuse Patient Records regulations: The Federal rules restrict any use of the information to criminally investigate or prosecute any alcohol or drug abuse patient.[facility] HospitalIn the event this information is protected by the Federal Confidentiality of Alcohol and Drug Abuse Patient Records regulations: The Federal rules restrict any use of the information to criminally investigate or prosecute any alcohol or drug abuse patient.[facility] HospitalIn the event this information is protected by the Federal Confidentiality of Alcohol and Drug Abuse Patient Records regulations: The Federal rules restrict any use of the information to criminally investigate or prosecute any alcohol or drug abuse patient.[facility] HospitalIn the event this information is protected by the Federal Confidentiality of Alcohol and Drug Abuse Patient Records regulations: The Federal rules restrict any use of the information to criminally investigate or prosecute any alcohol or drug abuse patient.[facility] HospitalIn the event this information is protected by the Federal Confidentiality of Alcohol and Drug Abuse Patient Records regulations: The Federal rules restrict any use of the information to criminally investigate or prosecute any alcohol or drug abuse patient.[facility] HospitalIn the event this information is protected by the Federal Confidentiality of Alcohol and Drug Abuse Patient Records regulations: The Federal rules restrict any use of the information to criminally investigate or prosecute any alcohol or drug abuse patient.[facility] HospitalIn the event this information is protected by the Federal Confidentiality of Alcohol and Drug Abuse Patient Records regulations: The Federal rules restrict any use of the information to criminally investigate or prosecute any alcohol or drug abuse patient.[facility] HospitalIn the event this information is protected by the Federal Confidentiality of Alcohol and Drug Abuse Patient Records regulations: The Federal rules restrict any use of the information to criminally investigate or prosecute any alcohol or drug abuse patient.[facility] HospitalIn the event this information is protected by the Federal Confidentiality of Alcohol and Drug Abuse Patient Records regulations: The Federal rules restrict any use of the information to criminally investigate or prosecute any alcohol or drug abuse patient.[facility] HospitalIn the event this information is protected by the Federal Confidentiality of Alcohol and Drug Abuse Patient Records regulations: The Federal rules restrict any use of the information to criminally investigate or prosecute any alcohol or drug abuse patient.[facility] HospitalIn the event this information is protected by the Federal Confidentiality of Alcohol and Drug Abuse Patient Records regulations: The Federal rules restrict any use of the information to criminally investigate or prosecute any alcohol or drug abuse patient.[facility] HospitalIn the event this information is protected by the Federal Confidentiality of Alcohol and Drug Abuse Patient Records regulations: The Federal rules restrict any use of the information to criminally investigate or prosecute any alcohol or drug abuse patient.[facility] HospitalIn the event this information is protected by the Federal Confidentiality of Alcohol and Drug Abuse Patient Records regulations: The Federal rules restrict any use of the information to criminally investigate or prosecute any alcohol or drug abuse patient.[facility] HospitalIn the event this information is protected by the Federal Confidentiality of Alcohol and Drug Abuse Patient Records regulations: The Federal rules restrict any use of the information to criminally investigate or prosecute any alcohol or drug abuse patient.[facility] HospitalIn the event this information is protected by the Federal Confidentiality of Alcohol and Drug Abuse Patient Records regulations: The Federal rules restrict any use of the information to criminally investigate or prosecute any alcohol or drug abuse patient.[facility] HospitalIn the event this information is protected by the Federal Confidentiality of Alcohol and Drug Abuse Patient Records regulations: The Federal rules restrict any use of the information to criminally investigate or prosecute any alcohol or drug abuse patient.[facility] HospitalIn the event this information is protected by the Federal Confidentiality of Alcohol and Drug Abuse Patient Records regulations: The Federal rules restrict any use of the information to criminally investigate or prosecute any alcohol or drug abuse patient.[facility] HospitalIn the event this information is protected by the Federal Confidentiality of Alcohol and Drug Abuse Patient Records regulations: The Federal rules restrict any use of the information to criminally investigate or prosecute any alcohol or drug abuse patient.[facility] HospitalIn the event this information is protected by the Federal Confidentiality of Alcohol and Drug Abuse Patient Records regulations: The Federal rules restrict any use of the information to criminally investigate or prosecute any alcohol or drug abuse patient.[facility] HospitalIn the event this information is protected by the Federal Confidentiality of Alcohol and Drug Abuse Patient Records regulations: The Federal rules restrict any use of the information to criminally investigate or prosecute any alcohol or drug abuse patient.[facility] HospitalIn the event this information is protected by the Federal Confidentiality of Alcohol and Drug Abuse Patient Records regulations: The Federal rules restrict any use of the information to criminally investigate or prosecute any alcohol or drug abuse patient.[facility] HospitalIn the event this information is protected by the Federal Confidentiality of Alcohol and Drug Abuse Patient Records regulations: The Federal rules restrict any use of the information to criminally investigate or prosecute any alcohol or drug abuse patient.[facility] HospitalIn the event this information is protected by the Federal Confidentiality of Alcohol and Drug Abuse Patient Records regulations: The Federal rules restrict any use of the information to criminally investigate or prosecute any alcohol or drug abuse patient.[facility] HospitalIn the event this information is protected by the Federal Confidentiality of Alcohol and Drug Abuse Patient Records regulations: The Federal rules restrict any use of the information to criminally investigate or prosecute any alcohol or drug abuse patient.[facility] HospitalIn the event this information is protected by the Federal Confidentiality of Alcohol and Drug Abuse Patient Records regulations: The Federal rules restrict any use of the information to criminally investigate or prosecute any alcohol or drug abuse patient.[facility] HospitalIn the event this information is protected by the Federal Confidentiality of Alcohol and Drug Abuse Patient Records regulations: The Federal rules restrict any use of the information to criminally investigate or prosecute any alcohol or drug abuse patient.[facility] HospitalIn the event this information is protected by the Federal Confidentiality of Alcohol and Drug Abuse Patient Records regulations: The Federal rules restrict any use of the information to criminally investigate or prosecute any alcohol or drug abuse patient.[facility] HospitalIn the event this information is protected by the Federal Confidentiality of Alcohol and Drug Abuse Patient Records regulations: The Federal rules restrict any use of the information to criminally investigate or prosecute any alcohol or drug abuse patient.[facility] HospitalIn the event this information is protected by the Federal Confidentiality of Alcohol and Drug Abuse Patient Records regulations: The Federal rules restrict any use of the information to criminally investigate or prosecute any alcohol or drug abuse patient.[facility] HospitalIn the event this information is protected by the Federal Confidentiality of Alcohol and Drug Abuse Patient Records regulations: The Federal rules restrict any use of the information to criminally investigate or prosecute any alcohol or drug abuse patient.[facility] HospitalIn the event this information is protected by the Federal Confidentiality of Alcohol and Drug Abuse Patient Records regulations: The Federal rules restrict any use of the information to criminally investigate or prosecute any alcohol or drug abuse patient.[facility] HospitalIn the event this information is protected by the Federal Confidentiality of Alcohol and Drug Abuse Patient Records regulations: The Federal rules restrict any use of the information to criminally investigate or prosecute any alcohol or drug abuse patient.[facility] HospitalIn the event this information is protected by the Federal Confidentiality of Alcohol and Drug Abuse Patient Records regulations: The Federal rules restrict any use of the information to criminally investigate or prosecute any alcohol or drug abuse patient.[facility] HospitalIn the event this information is protected by the Federal Confidentiality of Alcohol and Drug Abuse Patient Records regulations: The Federal rules restrict any use of the information to criminally investigate or prosecute any alcohol or drug abuse patient.[facility] HospitalIn the event this information is protected by the Federal Confidentiality of Alcohol and Drug Abuse Patient Records regulations: The Federal rules restrict any use of the information to criminally investigate or prosecute any alcohol or drug abuse patient.[facility] HospitalIn the event this information is protected by the Federal Confidentiality of Alcohol and Drug Abuse Patient Records regulations: The Federal rules restrict any use of the information to criminally investigate or prosecute any alcohol or drug abuse patient.[facility] HospitalIn the event this information is protected by the Federal Confidentiality of Alcohol and Drug Abuse Patient Records regulations: The Federal rules restrict any use of the information to criminally investigate or prosecute any alcohol or drug abuse patient.[facility] HospitalIn the event this information is protected by the Federal Confidentiality of Alcohol and Drug Abuse Patient Records regulations: The Federal rules restrict any use of the information to criminally investigate or prosecute any alcohol or drug abuse patient.[facility] HospitalIn the event this information is protected by the Federal Confidentiality of Alcohol and Drug Abuse Patient Records regulations: The Federal rules restrict any use of the information to criminally investigate or prosecute any alcohol or drug abuse patient.[facility] the event this information is protected by the Federal Confidentiality of Alcohol and Drug Abuse Patient Records regulations: The Federal rules restrict any use of the information to criminally investigate or prosecute any alcohol or drug abuse patient.[facility] HospitalIn the event this information is protected by the Federal Confidentiality of Alcohol and Drug Abuse Patient Records regulations: The Federal rules restrict any use of the information to criminally investigate or prosecute any alcohol or drug abuse patient.[facility] HospitalIn the event this information is protected by the Federal Confidentiality of Alcohol and Drug Abuse Patient Records regulations: The Federal rules restrict any use of the information to criminally investigate or prosecute any alcohol or drug abuse patient.[facility] HospitalIn the event this information is protected by the Federal Confidentiality of Alcohol and Drug Abuse Patient Records regulations: The Federal rules restrict any use of the information to criminally investigate or prosecute any alcohol or drug abuse patient.[facility] HospitalIn the event this information is protected by the Federal Confidentiality of Alcohol and Drug Abuse Patient Records regulations: The Federal rules restrict any use of the information to criminally investigate or prosecute any alcohol or drug abuse patient.[facility] HospitalIn the event this information is protected by the Federal Confidentiality of Alcohol and Drug Abuse Patient Records regulations: The Federal rules restrict any use of the information to criminally investigate or prosecute any alcohol or drug abuse patient.[facility] HospitalIn the event this information is protected by the Federal Confidentiality of Alcohol and Drug Abuse Patient Records regulations: The Federal rules restrict any use of the information to criminally investigate or prosecute any alcohol or drug abuse patient.[facility] HospitalIn the event this information is protected by the Federal Confidentiality of Alcohol and Drug Abuse Patient Records regulations: The Federal rules restrict any use of the information to criminally investigate or prosecute any alcohol or drug abuse patient.[facility] HospitalIn the event this information is protected by the Federal Confidentiality of Alcohol and Drug Abuse Patient Records regulations: The Federal rules restrict any use of the information to criminally investigate or prosecute any alcohol or drug abuse patient.[facility] HospitalIn the event this information is protected by the Federal Confidentiality of Alcohol and Drug Abuse Patient Records regulations: The Federal rules restrict any use of the information to criminally investigate or prosecute any alcohol or drug abuse patient.[facility] HospitalIn the event this information is protected by the Federal Confidentiality of Alcohol and Drug Abuse Patient Records regulations: The Federal rules restrict any use of the information to criminally investigate or prosecute any alcohol or drug abuse patient.[facility] HospitalIn the event this information is protected by the Federal Confidentiality of Alcohol and Drug Abuse Patient Records regulations: The Federal rules restrict any use of the information to criminally investigate or prosecute any alcohol or drug abuse patient.[facility] HospitalIn the event this information is protected by the Federal Confidentiality of Alcohol and Drug Abuse Patient Records regulations: The Federal rules restrict any use of the information to criminally investigate or prosecute any alcohol or drug abuse patient.[facility] HospitalIn the event this information is protected by the Federal Confidentiality of Alcohol and Drug Abuse Patient Records regulations: The Federal rules restrict any use of the information to criminally investigate or prosecute any alcohol or drug abuse patient.[facility] HospitalIn the event this information is protected by the Federal Confidentiality of Alcohol and Drug Abuse Patient Records regulations: The Federal rules restrict any use of the information to criminally investigate or prosecute any alcohol or drug abuse patient.[facility] HospitalIn the event this information is protected by the Federal Confidentiality of Alcohol and Drug Abuse Patient Records regulations: The Federal rules restrict any use of the information to criminally investigate or prosecute any alcohol or drug abuse patient.[facility] HospitalIn the event this information is protected by the Federal Confidentiality of Alcohol and Drug Abuse Patient Records regulations: The Federal rules restrict any use of the information to criminally investigate or prosecute any alcohol or drug abuse patient.[facility] HospitalIn the event this information is protected by the Federal Confidentiality of Alcohol and Drug Abuse Patient Records regulations: The Federal rules restrict any use of the information to criminally investigate or prosecute any alcohol or drug abuse patient.[facility] HospitalIn the event this information is protected by the Federal Confidentiality of Alcohol and Drug Abuse Patient Records regulations: The Federal rules restrict any use of the information to criminally investigate or prosecute any alcohol or drug abuse patient.[facility] HospitalIn the event this information is protected by the Federal Confidentiality of Alcohol and Drug Abuse Patient Records regulations: The Federal rules restrict any use of the information to criminally investigate or prosecute any alcohol or drug abuse patient.[facility] HospitalIn the event this information is protected by the Federal Confidentiality of Alcohol and Drug Abuse Patient Records regulations: The Federal rules restrict any use of the information to criminally investigate or prosecute any alcohol or drug abuse patient.[facility] HospitalIn the event this information is protected by the Federal Confidentiality of Alcohol and Drug Abuse Patient Records regulations: The Federal rules restrict any use of the information to criminally investigate or prosecute any alcohol or drug abuse patient.[facility] HospitalIn the event this information is protected by the Federal Confidentiality of Alcohol and Drug Abuse Patient Records regulations: The Federal rules restrict any use of the information to criminally investigate or prosecute any alcohol or drug abuse patient.[facility] HospitalIn the event this information is protected by the Federal Confidentiality of Alcohol and Drug Abuse Patient Records regulations: The Federal rules restrict any use of the information to criminally investigate or prosecute any alcohol or drug abuse patient.[facility] HospitalIn the event this information is protected by the Federal Confidentiality of Alcohol and Drug Abuse Patient Records regulations: The Federal rules restrict any use of the information to criminally investigate or prosecute any alcohol or drug abuse patient.[facility] HospitalIn the event this information is protected by the Federal Confidentiality of Alcohol and Drug Abuse Patient Records regulations: The Federal rules restrict any use of the information to criminally investigate or prosecute any alcohol or drug abuse patient.[facility] HospitalIn the event this information is protected by the Federal Confidentiality of Alcohol and Drug Abuse Patient Records regulations: The Federal rules restrict any use of the information to criminally investigate or prosecute any alcohol or drug abuse patient.[facility] HospitalIn the event this information is protected by the Federal Confidentiality of Alcohol and Drug Abuse Patient Records regulations: The Federal rules restrict any use of the information to criminally investigate or prosecute any alcohol or drug abuse patient.[facility] HospitalIn the event this information is protected by the Federal Confidentiality of Alcohol and Drug Abuse Patient Records regulations: The Federal rules restrict any use of the information to criminally investigate or prosecute any alcohol or drug abuse patient.[facility] HospitalIn the event this information is protected by the Federal Confidentiality of Alcohol and Drug Abuse Patient Records regulations: The Federal rules restrict any use of the information to criminally investigate or prosecute any alcohol or drug abuse patient.[facility] HospitalIn the event this information is protected by the Federal Confidentiality of Alcohol and Drug Abuse Patient Records regulations: The Federal rules restrict any use of the information to criminally investigate or prosecute any alcohol or drug abuse patient.[facility] Reason for Visit (unrecogniz ed section and content) Reason Comments Imm/Inj Specialty Diagnoses / Procedures Referred By Contac t Referred To Contact Diagnoses Cancer of breast, intraductal, left Malignant neoplasm of unspecified site of unspecified female breast Procedures INJECTION, [place] [address] [place] [address] [place] [address] Referral ID Status Reason Start Date Expiration Date V isits Requested Visits Authorized [id number] Authorized 09/04/2020 10/04/2024 99 99 Reason Comments Follow Up Breast Cancer 3 mos Follow up Reason Comments Imm/Inj faslodex Referral ID Status Reason Start Date Expiration Date V isits Requested Visits Authorized [id number] Authorized 09/04/2020 02/15/2024 45 45 Reason Comments Chemotherapy Treatment Imm/Inj Referral ID Status Reason Start Date Expiration Date V isits Requested Visits Authorized [id number] Authorized 09/04/2020 02/14/2023 32 32 Specialty Diagnoses / Procedures Referred By Contac t Referred To Contact Hematology / HEMATOLOGY/ONCOLOGY Diagnoses Faslodex [place] [address] [place] [id number] [place] [address] [address] Referral ID Status Reason Start Date Expiration Date V isits Requested Visits Authorized [id number] Pending Review 08/08/2022 11/06/2022 1 1 Referral ID Status Reason Start Date Expiration Date V isits Requested Visits Authorized [id number] Authorized 09/04/2020 09/26/2022 26 26 Reason Comments Anticoagulation Reason Comments Non-Chemotherapy Treatment Faslodex Reason Comments Refill Request Referral ID Status Reason Start Date Expiration Date V isits Requested Visits Authorized [id number] Authorized 09/04/2020 03/07/2022 18 18 Reason Onset Date Comments Refill Request 03/14/2022 Specialty Diagnoses / Procedures [facility] To Contact Diagnoses Cancer of breast, intraductal, left Malignant neoplasm of unspecified site of unspecified female breast Procedures INJECTION, [place] [address] [place] [id number] [facility] [address] [address] Referral ID Status Reason Start Date Expiration Date V isits Requested Visits Authorized [id number] Pending Review 09/04/2020 09/26/2022 26 26 Reason [...] Expiration Date V isits Requested Visits Authorized [id number] Authorized 09/04/2020 10/04/2025 99 99 Reason Comments Breast Cancer Follow Up Reason Comments Imm/Inj Faslodex Specialty Diagnoses / Procedures [facility] Referred To Contact Diagnoses Cancer of breast, intraductal, left Malignant neoplasm of unspecified site of unspecified female breast Procedures INJECTION, [place] [address] [place] [id number] Phone: tel: fax: Hematology/Oncology [facility] [address] [address] Phone: tel: Reason Comments Follow Up Breast Cancer No c/o voiced at thi s time. Specialty Diagnoses / Procedures [facility] Referred To Contact Diagnoses Cancer of breast, intraductal, left Malignant neoplasm of unspecified site of unspecified female breast (HCC) Procedures INJECTION, [place] [address] [place] [address] Phone: tel: fax: Hematology/Oncology [facility] [address] [address] Phone: tel: Reason Comments Orders Care Teams (unrecognized sec tion and content) Communications Media Professor Relationship Specialty Start Date End Date Yoav Chakraborty MD PCP - General Family Practice 10/04/12 Joss Hammond MD, [address] [place], [place] [id number] [phone] Physician Radiation Oncology 09/06/20 [facility] [address] [phone] [employer] Gr[employer] Oncology 09/11/20 Communications Media Professor Relationship Specialty Start Date End Date Yoav Chakraborty MD PCP - General Family Practice 10/04/12 Joss Hammond MD, [address] [place], [place] [address] [phone] Physician Radiation Oncology 09/06/20 [facility] [address] [address] Jewel Grinder Oncology 09/11/20 Communications Media Professor Relationship Specialty Start Date End Date Yoav Chakraborty MD PCP - General Family Practice 10/04/12 Joss Hammond MD, [address] [place], [place] [address] [phone] Physician Radiation Oncology 09/06/20 [facility] [address] [address] Jewel Grinder Oncology 09/11/20 Communications Media Professor Relationship Specialty Start Date End Date Yoav Chakraborty MD PCP - General Family Practice 10/04/12 Joss Hammond MD, [address] [place] [place] [address] Physician Radiation Oncology 09/06/20 Elle Her[place]ENNIF[place] [address] [address] Jewel Grinder Oncology 09/11/20 Communications Media Professor Relationship Specialty Start Date End Date Yoav Chakraborty MD PCP - General Family Practice 10/04/12 Joss Hammond MD, [address] [place] [address] Physician Radiation Oncology 09/06/20 Elle [place] [address] [address] Jewel Grinder Oncology 09/11/20 Communications Media Professor Relationship Specialty Start Date End Date Yoav Chakraborty MD PCP - General Family Practice 10/04/12 Joss Hammond MD, [address] [facility] [place] [address] Physician Radiation Oncology 09/06/20 Elle [place] [address] [address] Jewel Grinder Oncology 09/11/20 Communications Media Professor Relationship Specialty Start Date End Date Yoav Chakraborty MD PCP - General Family Practice 10/04/12 Joss Hammond MD, [address] [place] [place] [address] Physician Radiation Oncology 09/06/20 Elle Herrera [facility] [address] [address] Jewel Grinder Oncology 09/11/20 Communications Media Professor Relationship Specialty Start Date End Date Yoav Chakraborty MD PCP - General Family Practice 10/04/12 Joss Hammond MD, [address] [place] [address] Physician Radiation Oncology 09/06/20 Elle Herrera TRANSIT AUTHORITY POLICE OFFICER [address] [address] Jewel Grinder Oncology 09/11/20 Communications Media Professor Relationship Specialty Start Date End Date Yaov Chakraborty MD PCP - General Family Practice 10/04/12 Joss Hammond MD, [address] [place] [address] Physician Radiation Oncology 09/06/20 Elle Herrera TRANS[employer] AUTHORITY POLICE OFFICER [address] [address] Jewel Grinder Oncology 09/11/20 Communications Media Professor Relationship Specialty Start Date End Date Yoav Chakraborty MD PCP - General Family Practice 10/04/12 Joss Hammond MD, [address] [place] [address] Physician Radiation Oncology 09/06/20 Elle Herrera [employer]ANS[employer] AUTHORITY POLICE OFFICER [address] [address] Jewel Grinder Oncology 09/11/20 Communications Media Professor Relationship Specialty Start Date End Date Yoav Chakraborty MD PCP - General Family Medicine 10/04/12 Joss Hammond MD, [address] [place] [address] [phone] Physician Radiation Oncology 09/06/20 [facility] [address] [address] Jewel Grinder Oncology 09/11/20 Communications Media Professor Relationship Specialty Start Date End Date Yoav Chakraborty MD PCP - General Family Medicine 10/04/12 Joss Hammond MD, [address] [place] [address] Physician Radiation Oncology 09/06/20 [place] [address] [place] [address] Jewel Grinder Oncology 09/11/20 Communications Media Professor Relationship Specialty Start Date End Date Yoav Chakraborty MD PCP - General Family Medicine 10/04/12 Joss Hammond MD, [address] [place] [address] Physician Radiation Oncology 09/06/20 [place] [address] [address] Jewel Grinder Oncology 09/11/20 Communications Media Professor Relationship Specialty Start Date End Date Yoav Chakraborty MD PCP - General Family Medicine 10/04/12 Joss Hammond MD, [address] [place] [address] Physician Radiation Oncology 09/06/20 [place] [address] [address] Jewel Grinder Oncology 09/11/20 Communications Media Professor Relationship Specialty Start Date End Date Yoav Chakraborty MD PCP - General Family Medicine 10/04/12 Joss Hammond MD, [address] [place] [place] [address] Physician Radiation Oncology 09/06/20 [facility] [address] [address] Jewel Grinder Oncology 09/11/20 Communications Media Professor Relationship Specialty Start Date End Date Yoav Chakraborty MD PCP - General Family Medicine 10/04/12 Joss Hammond MD, [address] [place] [address] Physician Radiation Oncology 09/06/20 Angela [place] [address] [address] Jewel Grinder Oncology 09/11/20 Communications Media Professor Relationship Specialty Start Date End Date Yoav Chakraborty MD PCP - General Family Medicine 10/04/12 Joss Hammond MD, [address] [place] [address] Physician Radiation Oncology 09/06/20 [place] [address] [address] Jewel Grinder Oncology 09/11/20 Communications Media Professor Relationship Specialty Start Date End Date Yoav Chakraborty MD PCP - General Family Medicine 10/04/12 Joss Hammond MD, [address] [place] [address] Physician Radiation Oncology 09/06/20 [place] [address] [phone] Jewel Grinder Oncology 09/11/20 Communications Media Professor Relationship Specialty Start Date End Date Yoav Chakraborty MD PCP - General Family Medicine 10/04/12 Joss Hammond MD, [address] [place] [address] Physician Radiation Oncology 09/06/20 [facility] [address] [address] Jewel Grinder Oncology 09/11/20 Communications Media Professor Relationship Specialty Start Date End Date Yoav Chakraborty MD PCP - General Family Medicine 10/04/12 Joss Hammond MD, [address] [place], [place] [address] [phone] Physician Radiation Oncology 09/06/20 [facility] [address] Jewel Grinder Oncology 09/11/20 Team Status: Active Member Role Status Dates Dr. Yoav Chakraborty MD Family Provider Active Dr. Yoav Chakraborty MD Primary Care Provider Active Team Status: Inactive Member Role Status Dates Dr. Yoav Chakraborty MD Primary Care Provider Active Dr. Antelmo Boland , Emergency Provider Active Communications Media Professor Relationship Specialty Start Date End Date Yoav Chakraborty MD PCP - General Family Medicine 10/04/12 Joss Hammond MD, [address] [place], [place] [address] [phone] Physician Radiation Oncology 09/06/20 [facility] [address] [address] Jewel Grinder Oncology 09/11/20 Communications Media Professor Relationship Specialty Start Date End Date Yoav Chakraborty MD PCP - General Family Medicine 10/04/12 Joss Hammond MD, MD [address] [place] [address] Physician Radiation Oncology 09/06/20 [facility] [address] [address] Jewel Grinder Oncology 09/11/20 Communications Media Professor Relationship Specialty Start Date End Date Yoav Chakraborty MD PCP - General Family Medicine 10/04/12 Joss Hammond MD, [address] [place] [address] Physician Radiation Oncology 09/06/20 [facility] [address] [address] Jewel Grinder Oncology 09/11/20 Team Status: Inactive Member Role Status Dates Dr. Yoav Chakraborty MD Primary Care Provider Active Dorys Ku PLASTIC EYE TECHNICIAN, PLASTIC EYE TECHNICIAN-C Attending Provider Active Team Status: Inactive Member [...] [place], [place] Attending Provider, Referring Provider Active Communications Media Professor Relationship Specialty Start Date End Date Yoav Chakraborty MD PCP - General Family Medicine 10/04/12 Joss Hammond MD, MD [address] [place] [address] Physician Radiation Oncology 09/06/20 [facility] [address] [address] Jewel Grinder Oncology 09/11/20 Communications Media Professor Relationship Specialty Start Date End Date Yoav Chakraborty MD PCP - General Family Medicine 10/04/12 Joss Hammond MD, [address] [place], [place] [address] Physician Radiation Oncology 09/06/20 [facility] [address] [address] Jewel Grinder Oncology 09/11/20 Team Status: Inactive Member Role Status Dates Dr. Yoav Chakraborty MD Primary Care Provider Active Dr. Connor Kay MD Attending Provider Active Communications Media Professor Relationship Specialty Start Date End Date Yoav Chakraborty MD PCP - General Family Medicine 10/04/12 Joss Hammond MD [address] [place] [address] Physician Radiation Oncology 09/06/20 [facility] [address] [address] Jewel Grinder Oncology 09/11/20 Communications Media Professor Relationship Specialty Start Date End Date Yoav Chakraborty MD PCP - General Family Medicine 10/04/12 Joss Hammond MD [address] [place] [address] Physician Radiation Oncology 09/06/20 Elle Herrera [facility] [address] [phone] Jewel Grinder Oncology 09/11/20 Team Status: Active Member Role [...] Dr. Dani Jaramillo , Attending Provider Active Communications Media Professor Relationship Specialty Start Date End Date Yoav Chakraborty MD PCP - General Family Medicine 10/04/12 Joss Hammond MD [address] [place], [place] [address] Physician Radiation Oncology 09/06/20 Elle Herrera, [facility] [address] [phone] Jewel Grinder Oncology 09/11/20 Arnie Galvin APRN.ROBOTICS MECHANIC [address] [place] [address] Referring Internal Medicine 02/20/24 Communications Media Professor Relationship Specialty Start Date End Date Yoav Chakraborty MD PCP - General Family Medicine 10/04/12 Joss Hammond MD [address] [place], [place] [address] Physician Radiation Oncology 09/06/20 [facility] LISW [address] [place] [address] Jewel Grinder Oncology 09/11/20 Arnie Galvin, ELISA.ROBOTICS MECHANIC [address] [place] [address] Referring Internal Medicine 02/20/24 Yoav Chakraborty MD [address] [place] [address] Home Care Provider Family Medicine 02/22/24 Delicia Lazo, PT [address] [place], [place] [phone] Screw Machine Adjuster Automatic Post Acute Care 02/22/24 Communications Media Professor Relationship Specialty Start Date End Date Yoav Chakraborty MD PCP - General Family Medicine 10/04/12 Joss Hammond MD [address] [place], [place] [address] Physician Radiation Oncology 09/06/20 Elle Herrera [facility] [address] [address] Jewel Grinder Oncology 09/11/20 Arnie Galvin APRN.ROBOTICS MECHANIC [address] [place] [address] Referring Internal Medicine 02/20/24 Yoav Chakraborty MD [address] [place] [address] Home Care Provider Family Medicine 02/22/24 Delicia Lazo, PT [address] [place] [address] Screw Machine Adjuster Automatic Post Acute Care 02/22/24 Skyler Delatorre, NARINDER [address] [place] [address] Screw Machine Adjuster Automatic Post Acute Care 02/23/24 Communications Media Professor Relationship Specialty Start Date End Date Yoav Chakraborty MD PCP - General Family Medicine 10/04/12 Joss Hammond MD [address] [place] [address] Physician Radiation Oncology 09/06/20 Elle Herrera, TRANSIT AUTHORITY POLICE OFFICER [address] [address] Jewel Grinder Oncology 09/11/20 Arnie Galvin, DATA MIGRATION CONSULTANT.ROBOTICS MECHANIC [address] [place] [address] Referring Internal Medicine 02/20/24 Yoav Chakraborty MD [address] [place] [address] Home Care Provider Family Medicine 02/22/24 Delicia Lazo, PT [address] [place] [address] Screw Machine Adjuster Automatic Post Acute Care 02/22/24 Skyler Delatorre, RN [address] [place], [place] [phone] Screw Machine Adjuster Automatic Post Acute Care 02/23/24 Communications Media Professor Relationship Specialty Start Date End Date Yoav Chakraborty MD PCP - General Family Medicine 10/04/12 Joss Hammond MD [address] [place], [place] [address] Physician Radiation Oncology 09/06/20 Elle Herrera LISW [address] [place] [address] Jewel Grinder Oncology 09/11/20 Arnie Galvin APRN.ROBOTICS MECHANIC [address] [place] [address] Referring Internal Medicine 02/20/24 Yoav Chakraborty MD [address] [place] [address] Home Care Provider Family Medicine 02/22/24 Delicia Lazo, PT [address] [place] [address] Screw Machine Adjuster Automatic Post Acute Care 02/22/24 Skyler Delatorre RN [address] [place], [place] [phone] Screw Machine Adjuster Automatic Post Acute Care 02/23/24 Communications Media Professor Relationship Specialty Start Date End Date Yoav Chakraborty MD PCP - General Family Medicine 10/04/12 Joss Hammond MD [address] [place], [place] [address] Physician Radiation Oncology 09/06/20 Elle Herrera [facility] [address] [address] Jewel Grinder Oncology 09/11/20 Arnie Galvin APRN.ROBOTICS MECHANIC [address] [place] [address] Referring Internal Medicine 02/20/24 Yoav Chakraborty MD [address] [place] [address] Home Care Provider Family Medicine 02/22/24 Delicia Lazo, PT [address] [place] [address] Screw Machine Adjuster Automatic Post Acute Care 02/22/24 Skyler Delatorre, RN [address] [place] [address] Screw Machine Adjuster Automatic Post Acute Care 02/23/24 Communications Media Professor Relationship Specialty Start Date End Date Yoav Chakraborty MD PCP - General Family Medicine 10/04/12 Joss Hammond MD [address] [place] [address] Physician Radiation Oncology 09/06/20 Elle Herrera [facility] [address] [address] Jewel Grinder Oncology 09/11/20 Arnie Galvin, DATA MIGRATION CONSULTANT.ROBOTICS MECHANIC [address] [place] [address] Referring Internal Medicine 02/20/24 Yoav Chakraborty MD [address] [place] [address] Home Care Provider Family Medicine 02/22/24 Delicia Lazo, PT [address] [place] [address] Screw Machine Adjuster Automatic Post Acute Care 02/22/24 Communications Media Professor Relationship Specialty Start Date End Date Yoav Chakraborty MD PCP - General Family Medicine 10/04/12 Joss Hammond MD [address] [place], [place] [address] Physician Radiation Oncology 09/06/20 Elle Herrera [facility] [address] [address] Jewel Grinder Oncology 09/11/20 Arnie Galvin, ELISA.ROBOTICS MECHANIC [address] [place] [address] Referring Internal Medicine 02/20/24 Yoav Chakraborty MD [address] [place] [phone] Home Care Provider Family Medicine 02/22/24 Delicia Lazo, PT [address] [place] [address] Screw Machine Adjuster Automatic Post Acute Care 02/22/24 Communications Media Professor Relationship Specialty Start Date End Date Yoav Chakraborty MD PCP - General Family Medicine 10/04/12 Joss Hammond MD [address] [place], [place] [address] Physician Radiation Oncology 09/06/20 Elle Herrera [facility] [address] [address] Jewel Grinder Oncology 09/11/20 Arnie Galvin APRN.ROBOTICS MECHANIC [address] [place] [address] Referring Internal Medicine 02/20/24 Yoav Chakraborty MD [address] [place] [address] Home Care Provider Family Medicine 02/22/24 Delicia Lazo, PT [address] [place] [address] Screw Machine Adjuster Automatic Post Acute Care 02/22/24 Communications Media Professor Relationship Specialty Start Date End Date Yoav Chakraborty MD PCP - General Family Medicine 10/04/12 Joss Hammond MD [address] [place], [place] 460371 Physician Radiation Oncology 09/06/20 Elle Herrera, TRANSIT AUTHORITY POLICE OFFICER [address] [address] Jewel Grinder Oncology 09/11/20 Arnie Galvin, ELISA.ROBOTICS MECHANIC [address] [place] [address] Referring Internal Medicine 02/20/24 Yoav Chakraborty MD [address] [place] [address] Home Care Provider Family Medicine 02/22/24 Delicia Lazo, PT [address] [place] [address] Screw Machine Adjuster Automatic Post Acute Care 02/22/24 Communications Media Professor Relationship Specialty Start Date End Date Yoav Chakraborty MD PCP - General Family Medicine 10/04/12 Joss Hammond MD [address] [facility] [address] Physician Radiation Oncology 09/06/20 Elle Herrera [facility] [address] [address] Jewel Grinder Oncology 09/11/20 Arnie Galvin APRN.ROBOTICS MECHANIC [address] [place] [address] Referring Internal Medicine 02/20/24 Yoav Chakraborty MD [facility] [address] Home Care Provider Family Medicine 02/22/24 Delicia Lazo, PT [address] [place] [address] Screw Machine Adjuster Automatic Post Acute Care 02/22/24 Communications Media Professor Relationship Specialty Start Date End Date Yoav Chakraborty MD PCP - General Family Medicine 10/04/12 Joss Hammond MD [address] [address] Physician Radiation Oncology 09/06/20 Elle Herrera [facility] [address] [address] Jewel Grinder Oncology 09/11/20 Arnie Galvin APRN.ROBOTICS MECHANIC [address] [place] [address] Referring Internal Medicine 02/20/24 Yoav Chakraborty MD [facility] [address] Home Care Provider Family Medicine 02/22/24 Communications Media Professor Relationship Specialty Start Date End Date Yoav Chakraborty MD PCP - General Family Medicine 10/04/12 Joss Hammond MD [address] [place] [address] Physician Radiation Oncology 09/06/20 Elle Hrerera L[facility] [address] [address] Jewel Grinder Oncology 09/11/20 Arnie Galvin APRN.ROBOTICS MECHANIC [address] [place] [address] Referring Internal Medicine 02/20/24 Yoav Chakraborty MD [address] [place] [address] Home Care Provider Family Medicine 02/22/24 Communications Media Professor Relationship Specialty Start Date End Date Yoav Chakraborty MD PCP - General Family Medicine 10/04/12 Joss Hammond MD [address] [place] [address] Physician Radiation Oncology 09/06/20 Elle Herrera L[facility] [address] [address] Jewel Grinder Oncology 09/11/20 Arnie Galvin, ELISA.ROBOTICS MECHANIC [address] [place] [address] Referring Internal Medicine 02/20/24 Yoav Chakraborty MD [address] [address] Home Care Provider Family Medicine 02/22/24 Communications Media Professor Relationship Specialty Start Date End Date Yoav Chakraborty MD PCP - General Family Medicine 10/04/12 Joss Hammond MD [address] [place], [place] 523591 Physician Radiation Oncology 09/06/20 Elle Herrera [place] [address] [address] Jewel Grinder Oncology 09/11/20 Arnie Galvin APRN.ROBOTICS MECHANIC [address] [place] [address] Referring Internal Medicine 02/20/24 Yoav Chakraborty MD [address] [address] Home Care Provider Family Medicine 02/22/24 Communications Media Professor Relationship Specialty Start Date End Date Yoav Chakraborty MD PCP - General Family Medicine 10/04/12 Joss Hammond MD [address] [facility] [facility] [address] [place], [place] [address] Physician Radiation Oncology 09/06/20 Elle Herrera [place] [address] [address] Jewel Grinder Oncology 09/11/20 Arnie Galvin APRN.ROBOTICS MECHANIC [address] [place] [address] Referring Internal Medicine 02/20/24 Yoav Chakraborty MD [address] [address] Home Care Provider Family Medicine 02/22/24 Communications Media Professor Relationship Specialty Start Date End Date Yoav Chakraborty MD PCP - General Family Medicine 10/04/12 Joss Hammond MD [address] [facility] [place], [place] [address] Physician Radiation Oncology 09/06/20 [place] [address] [address] Jewel Grinder Oncology 09/11/20 Communications Media Professor Relationship Specialty Start Date End Date Yoav Chakraborty MD PCP - General Family Medicine 10/04/12 Joss Hammond MD [address] [place] [address] Physician Radiation Oncology 09/06/20 Elle Herrera [place] [address] [address] Jewel Grinder Oncology 09/11/20 Arnie Galvin APRN.CNP [address] [place] [address] Referring Internal Medicine 02/20/24 Yoav Chakraborty MD [address] [address] Home Care Provider Family Medicine 02/22/24 Delicia Lazo, PT [address] [place] [address] Screw Machine Adjuster Automatic Post Acute Care 02/22/24 Communications Media Professor Relationship Specialty Start Date End Date Yoav Chakraborty MD PCP - General Family Medicine 10/04/12 Joss Hammnod MD [address] [facility] [address] Physician Radiation Oncology 09/06/20 Elle Herrera LISW [address] [address] Jewel Grinder Oncology 09/11/20 Arnie Galvin APRN.ROBOTICS MECHANIC [address] [place] [address] Referring Internal Medicine 02/20/24 Yoav Chakraborty MD [address] [place] [address] Home Care Provider Family Medicine 02/22/24 Communications Media Professor Relationship Specialty Start Date End Date Yoav Chakraborty MD PCP - General Family Medicine 10/04/12 Joss Hammond MD [address] [place] [address] Physician Radiation Oncology 09/06/20 Elle Herrera LISW [address] [address] Jewel Grinder Oncology 09/11/20 Arnie Galvin APRN.ROBOTICS MECHANIC [address] [place] [address] Referring Internal Medicine 02/20/24 Yoav Chakraborty MD [facility] [id number] Home Care Provider Family Medicine 02/22/24 Communications Media Professor Relationship Specialty Start Date End Date Yoav Chakraborty MD PCP - General Family Medicine 10/04/12 Joss Hammond MD [address] [facility] [place] [place], [place] [address] Physician Radiation Oncology 09/06/20 Elle Herrera [place] [address] [address] Jewel Grinder Oncology 09/11/20 Arnie Galvin APRN.ROBOTICS MECHANIC [address] [place] [address] Referring Internal Medicine 02/20/24 Yoav Chakraborty MD [address] [place] [address] Home Care Provider Family Medicine 02/22/24 Communications Media Professor Relationship Specialty Start Date End Date Yoav Chakraborty MD PCP - General Family Medicine 10/04/12 Joss Hammond MD [address] [facility] [facility] [address] Physician Radiation Oncology 09/06/20 Elle Herrera [facility] [address] [address] Jewel Grinder Oncology 09/11/20 Arnie Galvin APRN.ROBOTICS MECHANIC [address] [place] [address] Referring Internal Medicine 02/20/24 Yoav Chakraborty MD [facility] [address] Home Care Provider Family Medicine 02/22/24 Communications Media Professor Relationship Specialty Start Date End Date Yoav Chakraborty MD PCP - General Family Medicine 10/04/12 Joss Hammond MD [address] [place] [address] Physician Radiation Oncology 09/06/20 Elle Herrera LISW [address] [address] Jewel Grinder Oncology 09/11/20 Arnie Galvin APRN.ROBOTICS MECHANIC [address] [place] [address] Referring Internal Medicine 02/20/24 Yoav Chakraborty MD [address] [place] [address] Home Care Provider Family Medicine 02/22/24 Communications Media Professor Relationship Specialty Start Date End Date Yoav Chakraborty MD PCP - General Family Medicine 10/04/12 Joss Hammond MD [address] [place] [address] Physician Radiation Oncology 09/06/20 Elle Herrera LISW [address] [address] Jewel Grinder Oncology 09/11/20 Arnie Galvin, DATA MIGRATION CONSULTANT.ROBOTICS MECHANIC [address] [place] [address] Referring Internal Medicine 02/20/24 Yoav Chakraborty MD [facility] [address] Home Care Provider Family Medicine 02/22/24 Communications Media Professor Relationship Specialty Start Date End Date Yoav Chakraborty MD PCP - General Family Medicine 10/04/12 Joss Hammond MD [address] [place] [address] Physician Radiation Oncology 09/06/20 Elle Herrera, [employer] POLICE OFFICER [address] [address] Jewel Grinder Oncology 09/11/20 Arnie Galvin, DATA MIGRATION CONSULTANT.ROBOTICS MECHANIC [address] [place] [address] Referring Internal Medicine 02/20/24 Yoav Chakraborty MD [address] [place] [address] Home Care Provider Family Medicine 02/22/24 Communications Media Professor Relationship Specialty Start Date End Date Yoav Chakraborty MD PCP - General Family Medicine 10/04/12 Joss Hammond MD [address] [address] [facility] [address] Physician Radiation Oncology 09/06/20 Caty Herreranifer [facility] [address] [address] Jewel Grinder Oncology 09/11/20 Arnie Galvin, DATA MIGRATION CONSULTANT.ROBOTICS MECHANIC [address] [place] [address] Referring Internal Medicine 02/20/24 Yoav Chakraborty MD [address] [place] [address] Home Care Provider Family Medicine 02/22/24 Communications Media Professor Relationship Specialty Start Date End Date Yoav Chakraborty MD PCP - General Family Medicine 10/04/12 Joss Hammond MD [address] [place] [address] Physician Radiation Oncology 09/06/20 [facility] [address] [address] Jewel Grinder Oncology 09/11/20 Arnie Galvin, DATA MIGRATION CONSULTANT.ROBOTICS MECHANIC [address] [place] [address] Referring Internal Medicine 02/20/24 Yoav Chakraborty MD [address] [place] [address] Home Care Provider Family Medicine 02/22/24 Communications Media Professor Relationship Specialty Start Date End Date Yoav Chakraborty MD PCP - General Family Medicine 10/04/12 Joss Hammond MD [address] [place] [address] Physician Radiation Oncology 09/06/20 Elle Herrera [facility] [address] [address] Jewel Grinder Oncology 09/11/20 Arnie Galvin APRN.ROBOTICS MECHANIC [address] [place] [address] Referring Internal Medicine 02/20/24 Yoav Chakraborty MD [facility] [address] Home Care Provider Family Medicine 02/22/24 Communications Media Professor Relationship Specialty Start Date End Date Yoav Chakraborty MD PCP - General Family Medicine 10/04/12 Joss Hammond MD [address] [place] [address] Physician Radiation Oncology 09/06/20 Elle Herrera [facility] [address] [address] Jewel Grinder Oncology 09/11/20 Arnie Galvin, ELISA.ROBOTICS MECHANIC [address] [place] [address] Referring Internal Medicine 02/20/24 Yoav Chakraborty MD [facility] [address] Home Care Provider Family Medicine 02/22/24 Goals [...] BE BASED ON THE PRIMARY CLINICAL RECORDS. [employer] [facility]. provides no warranty or guarantee of the accuracy or completeness of information in this document.
[2025-09-27 17:06] LABS: Magnesium 1.9 mg/dL (1.5-2.2)
[2025-09-27 17:49] LABS: Procalcitonin 0.07 ng/mL (<=0.10)
[2025-09-27] MEDS: Pantoprazole Sodium 40 MG in 0.9% Normal Saline (100mL MB+) 100 ML 330 MG IV ×2 (18:06→21:42)
[2025-09-27] MEDS: 0.9% Normal Saline (1000mL) 1,000 ML 75 ML IV (18:06)
[2025-09-27] MEDS: 0.9% Saline Lock 10 ML Syringe IV (18:49)
[2025-09-27] MEDS: OLANZapine 5 MG/TAB TAB.RAPDIS PO (21:37)
[2025-09-27] MEDS: MELATONIN 10 MG TABLET PO (21:37)
[2025-09-27] MEDS: Memantine Hydrochloride 10 MG Tablet PO (21:38)
[2025-09-27] MEDS: Divalproex Sodium 125 MG SPRINKLE PO (21:39)
[2025-09-27] MEDS: APIXABAN 2.5 MG TABLET (WCH) PO (21:43)
--- NOTE | 2025-09-28 00:33 | PCM.HOSP.N ---
Hospitalist Note Coarse rales throughout, nrsg stopped her IVF. No respiratory distress noted, no accessory muscle use, maintains appropriate saturation on 2L NC. Minimal urine output noted this shift. With concern for dehydration d/t N/V/D, I feel giving her diuretics at this time would not be terribly beneficial. I prefer to just stop the IVF for now to see if that allows the rales to improve.
[2025-09-28 02:51] VITALS: BP 105/36; PULSE 53; RESP 18; TEMP 37.1; O2SAT 95
--- NOTE | 2025-09-28 03:56 | RAD_ITS ---
PROCEDURE: CHEST 1 VIEW (PORTABLE) 09/28/2025 REASON FOR EXAM: HYPOXIA TECHNIQUE: Frontal view of the chest. COMPARISON: Yesterday FINDINGS: Hardware: None Heart: Heart and mediastinum are stable Lungs: Lungs are underexpanded, with partial but not yet complete resolution of previously noted diffuse interstitial edema. Follow-up recommended to ensure complete resolution. Bones: Degenerative bony changes RAD/Chest 1 View (Portable) IMPRESSION: Mild overall improvement compared to previous study with decreased interstitial edema. Follow-up recommended to ensure complete resolution Reading Location: [id number]
[2025-09-28 04:17] VITALS: BMI 28.3
[2025-09-28 04:47] LABS: Hematocrit 28.2 % (37-47); Hemoglobin 8.8 g/dL (12.0-15.0); Immature Granulocytes Count 0.020 X10^3/uL (0.0-0.0); Mean Corp Hgb Conc 31.2 g/dL (32-36); Mean Corpuscular Volume 98.9 fL (81-99); Mean Platelet Vol. 10.2 fl (6.2-12.0); NRBC Flagged by Analyzer 0 % (0-5); Platelet Count 168 K/mm3 (150-450); RBC Distribution Width CV 13.9 % (11.6-14.6); RBC Distribution Width SD 51.0 fl (35.1-43.9); Red Blood Count 2.85 M/mm3 (4.2-5.4); White Blood Count 5.4 K/mm3 (4.4-11.0)
[2025-09-28 05:34] LABS: AST(SGOT) 17 U/L (<=31); Alanine Aminotransfer ALT/SGPT 7 U/L (<=34); Albumin, Serum 2.8 g/dL (3.4-4.8); Alkaline Phosphatase 89 U/L (35-104); Anion Gap 8 (7-18); BUN 21 mg/dL (4-19); BUN/Creat Ratio 18.3 RATIO (10-20); Calcium,Total 8.1 mg/dL (7.6-11.0); Carbon Dioxide 23.6 mmol/L (20.0-29.0); Chloride 109 mmol/L (96-106); Estimated Creatinine Clearance 33.07 ml/min (50-250); Globulin 2.8 g/dL (2.2-4.2); Glucose 85 mg/dL (70-99); Potassium 3.9 mmol/L (3.5-5.1)
--- NOTE | 2025-09-28 07:08 | PCM.PN.HOSP ---
Reason for Visit Chief Complaint: N/V/D, weakness and debility. Subjective Subjective Patient states today she is feeling better. No more nausea vomiting or diarrhea. States she is just tired. We did discuss that she may need to go somewhere for rehab depending on her strength. She is pretty adamant she wants to go home right now. I said we will take it day by day and see how she does with therapy and she is agreeable to this. Objective Data Objective Data Vital Signs: Vital Signs Temp Pulse Resp BP Pulse Ox O2 Del Method O2 Flow Rate 98.7 F 53 L 18 105/36 L 95 Nasal Cannula 2 09/28/25 02:51 09/28/25 02:51 09/28/25 02:51 09/28/25 02:51 09/28/25 02:51 09/28/25 03:00 09/28/25 03:00 Oxygen Flow Rate (L/min) 2 Oxygen Delivery Method Nasal Cannula Weight: 69.9 kg Body Mass Index (BMI) 28.3 Intake & Output: Intake and Output for Last 24 Hours 09/26/25 09/27/25 09/28/25 23:59 23:59 23:59 Intake Total 1370 / 1420 150 / 150 Output Total 0 / 0 Balance 1370 / 1420 150 / 150 Lab / Micro Data 09/28/25 07:30 09/28/25 04:27 Labs: Laboratory Results - last 24 hr 09/27/25 13:30: WBC 8.6, RBC 3.52 L, Hgb 11.0 L, Hct 34.4 L, MCV 97.7, MCH 31.3, MCHC 32.0, RDW Std Deviation 48.8 H, RDW Coeff of Jina 13.6, Plt Count 238, MPV 10.4, Immature Gran % (Auto) 0.600, Neut % (Auto) 90.3 H, Lymph % (Auto) 4.3 L, [place] % (Auto) 4.6, Eos % (Auto) 0.0, Baso % (Auto) 0.2, Absolute Neuts (auto) 7.8 H, Absolute Lymphs (auto) 0.37 L, Nucleated RBC % 0, Sodium 141, Potassium 4.8, Chloride 105, Carbon Dioxide 25.6, Anion Gap 10, BUN 21 H, Creatinine 1.00, Estim Creat Clear Calc 38.36 L, Est GFR (MDRD) Non-Af 56 L, BUN/Creatinine Ratio 20.8 H, Glucose 132 H, Calcium 8.7, Total Bilirubin 0.35, AST 27, ALT 11, Alkaline Phosphatase 122 H, Troponin T High Sens 33 H, Total Protein 7.2, Albumin 3.4, Globulin 3.8, Albumin/Globulin Ratio 0.9, Lipase 17 09/27/25 14:15: Lactic Acid < 1.0 09/27/25 15:30: Phosphorus 2.9, Magnesium 1.9, Troponin T Hi Sens 2 Hr 31 H, Procalcitonin 0.07 09/27/25 15:40: Urine Color Yellow, Urine Clarity Clear, Urine pH 7.0, Ur Specific [place] 1.010, Urine Protein 100 H, Urine Glucose (UA) Normal, Urine Ketones Negative, Urine Occult Blood 10 H, Urine Nitrite Negative, Urine Bilirubin Negative, Urine Urobilinogen 1 H, Ur Leukocyte Esterase Negative, Urine RBC 0-5 SEEN, Urine WBC 0-5 SEEN, Ur Squamous Epith Cells 0-5 SEEN, Urine Bacteria RARE, Urine Mucus 0 SEEN 09/28/25 04:27: WBC 5.4, RBC 2.85 L, Hgb 8.8 L, Hct 28.2 L, MCV 98.9, MCH 30.9, MCHC 31.2 L, RDW Std Deviation 51.0 H, RDW Coeff of Jina 13.9, Plt Count 168, MPV 10.2, Immature Gran % (Auto) 0.400, Neut % (Auto) 61.2, Lymph % (Auto) 25.2, [place] % (Auto) 12.8 H, Eos % (Auto) 0.2, Baso % (Auto) 0.2, Absolute Neuts (auto) 3.3, Absolute Lymphs (auto) 1.36, Nucleated RBC % 0, Sodium 140, Potassium 3.9, Chloride 109 H, Carbon Dioxide 23.6, Anion Gap 8, BUN 21 H, Creatinine 1.16, Estim Creat Clear Calc 33.07 L, Est GFR (MDRD) Non-Af 46 L, BUN/Creatinine Ratio 18.3, Glucose 85, Calcium 8.1, Total Bilirubin 0.23, AST 17, ALT 7, Alkaline Phosphatase 89, Total Protein 5.6 L, Albumin 2.8 L, Globulin 2.8, Albumin/Globulin Ratio 1.0 Micro: Microbiology 09/27/25 20:10 Mucosa - Nasopharyngeal Respiratory Panel (PCR) - Final 09/27/25 13:42 Mucosa - Nose SARS-CoV-2, Influenza & RSV (PCR) - Final Radiography Diagnostic Testing: Radiology Impression Abdomen/Pelvis CT 09/27/25 13:29 IMPRESSION: Dilated bowel loops with fluid consistent with enterocolitis. Age-indeterminate compression fracture of L1 with 80% height loss. Please correlate with clinical history, focal tenderness or MRI lumbar spine. Reading Location: [facility] Chest X-Ray 09/27/25 14:40 IMPRESSION: Mild cardiomegaly and diffuse pulmonary vascular congestion. Possible bibasilar consolidations. Reading Location: [facility] Chest X-Ray 09/28/25 03:56 IMPRESSION: Mild overall improvement compared to previous study with decreased interstitial edema. Follow-up recommended to ensure complete resolution Reading Location: [facility] Physical Exam Const alert, average body habitus and well nourished; Negative for healthy appearing Constitutional Narrative: Elderly, frail-appearing, white female, lying in bed, oriented to self, place, and month but not year. Is able to tell me its Darci, appears as if she is not feeling well but does not look toxic HEENT head/scalp atraumatic and moist oral mucous membranes HEENT Narrative: Dentition is fair, Mallampati is 2, no thrush Head and Scalp: normocephalic Eyes Negative for conjunctivae normal Eyes Narrative: Conjunctivae are mildly pale, no scleral icterus Neck supple Neck Narrative: Trachea midline Resp normal respiratory effort, no retractions, no use of accessory muscles and clear to auscultation bilaterally Auscultation: Negative for crackles, rhonchi or wheezes Cardio regular rate, regular rhythm, S1 normal heart sound, S2 normal heart sound, no rub, no gallops and no clicks; Negative for no murmurs Cardio Narrative: 3 out of 6 systolic murmur loudest at left lower sternal border GI GI Narrative: Bowel sounds are mildly hyperactive, nondistended and tender nontender abdomen, abdomen is soft, no organomegaly is appreciated Extremity no clubbing, cyanosis or edema Extremity Narrative: 2+ pedal and radial pulses Skin Skin Narrative: Thin frail appearing skin with few scattered ecchymosis Neuro moves all extremities and no focal motor deficits Neuro Narrative: Significant generalized weakness but no focal deficit noted at this time, speech quality is within normal limits however response time is slightly delayed Sensorium / Orientation: awake, alert, oriented to person and oriented to place Psych Psych Narrative: Affect is slightly flat and mood seems slightly depressed Assessment & Plan Assessment/Plan (1) Viral gastroenteritis: (2) Nausea, vomiting and diarrhea: (3) Generalized weakness: (4) Fatigue: (5) Elevated troponin: (6) Acute anemia: (7) Dehydration: PLAN: Plan Nausea/vomiting/diarrhea secondary to suspected viral gastroenteritis - Multiple sick contacts at home - Seems to be improving clinically - Will advance diet to full liquids and then regular diet tomorrow if tolerates - CT imaging showed enterocolitis - C. difficile and enteric panel have been ordered however patient has not produced a specimen as of yet - Continue IV fluids-continue antiemetics - Continue to monitor clinically - Lipase within normal limits Acute anemia - Unclear if this is acute or related to volume repletion - Repeat CBC from this morning was 8.8-8.6 so shows relative stability this time - Will check iron studies - Check ferritin - Check reticulocyte count- No signs of bleeding - Repeat CBC in a.m. - IV PPI twice daily for now - patient is not anticoagulated or on any antiplatelet therapy Troponin elevation - Initial troponin was 33 with a delta of 31 - Suspect related to acute dehydration and acute illness - No chest pain - Will defer any further workup at this time Acute dehydration secondary to the above - Clinically improved with IV fluids - Lactate was normal - Procalcitonin is 0.07 Generalized weakness/fatigue - Likely related to the above - PT/OT consultation pending - Patient may need placement at discharge--> CM/SW consulted and will see the patient tomorrow - Patient is hoping for discharge home if at all possible CKD stage IIIa - Renal function is at baseline - Continue to monitor Age-indeterminate L1 compression fracture - Patient not complaining of significant acute pain so suspect not acute - 80% height loss - Continue as needed pain medication without patient follow-up Essential hypertension - Continue home amlodipine - continue home lisinopril next-as needed hydralazine available History of breast cancer - Remote left-sided invasive ductal carcinoma stage II - Ongoing outpatient follow-up PAF - It was noted that patient was on Eliquis however that was not confirmed on med reconciliation so we will discontinue and investigate further - Patient does not appear to be on any rate controlling medication either at this time - I was not able to find Eliquis on external fill history either Dementia with behavioral disorder - Continue home memantine - Continue home galantamine - Continue home olanzapine - Continue home valproic acid Overactive bladder - Continue oxybutynin Depression/anxiety - Continue home citalopram DVT prophylaxis - With hemoglobin drop will utilize SCDs for now and avoid chemoprophylaxis CODE STATUS - DNR CCA with no intubation was verified at the time of admission Charges/Coding Visit Charges Inpatient E&M: 63179 Subs Hosp L3
[2025-09-28 07:45] LABS: Hemoglobin 8.6 g/dL (12.0-15.0)
[2025-09-28 07:49] VITALS: BP 165/64; PULSE 64; RESP 19; TEMP 36.6; O2SAT 97
[2025-09-28] MEDS: Memantine Hydrochloride 10 MG Tablet PO ×2 (09:30→22:12)
[2025-09-28] MEDS: APIXABAN 2.5 MG TABLET (WCH) PO (09:31)
[2025-09-28] MEDS: Divalproex Sodium 125 MG SPRINKLE PO ×2 (09:32→22:11)
[2025-09-28] MEDS: Pantoprazole Sodium 40 MG in 0.9% Normal Saline (100mL MB+) 100 ML 330 MG IV ×2 (09:32→22:15)
[2025-09-28 10:42] LABS: Immature Reticulocyte Fraction 11.10 % (3.00-15.90); Platelet Count 173 K/mm3 (150-450); Reticulocyte Count 2.18 % (0.5-1.5)
[2025-09-28 11:05] LABS: Ferritin 256 ng/mL (22-378); Iron 26 ug/dL (50-170); Iron Binding Capacity,Unsat 135 ug/dL (228-428)
[2025-09-28 11:11] LABS: Iron Binding Capacity,Total 161 ug/dL (250-450)
[2025-09-28 13:54] VITALS: BP 173/64; PULSE 72; RESP 17; TEMP 36.6; O2SAT 100
[2025-09-28 14:03] VITALS: BP 173/64; PULSE 72
[2025-09-28] MEDS: 0.9% Saline Lock 10 ML Syringe IV (14:04)
[2025-09-28 18:21] VITALS: BP 158/60; PULSE 70; RESP 16; TEMP 37.1; O2SAT 99
[2025-09-28] MEDS: OLANZapine 5 MG/TAB TAB.RAPDIS PO (22:14)
[2025-09-28] MEDS: MELATONIN 10 MG TABLET PO (22:14)
[2025-09-29] VITALS (8 sets, daily range): BP systolic 130–169; BP diastolic 43–79; PULSE 52–72; RESP 16; TEMP 36.5–37; O2SAT 93–100; BMI 28.0
[2025-09-29 04:04] LABS: Hematocrit 27.9 % (37-47); Hemoglobin 8.8 g/dL (12.0-15.0); Immature Granulocytes Count 0.020 X10^3/uL (0.0-0.0); Mean Corp Hgb Conc 31.5 g/dL (32-36); Mean Corpuscular Volume 98.2 fL (81-99); Mean Platelet Vol. 10.9 fl (6.2-12.0); NRBC Flagged by Analyzer 0 % (0-5); Platelet Count 182 K/mm3 (150-450); RBC Distribution Width CV 13.3 % (11.6-14.6); RBC Distribution Width SD 47.8 fl (35.1-43.9); Red Blood Count 2.84 M/mm3 (4.2-5.4); White Blood Count 5.1 K/mm3 (4.4-11.0)
[2025-09-29 04:40] LABS: Anion Gap 4 (7-18); BUN 18 mg/dL (4-19); BUN/Creat Ratio 17.1 RATIO (10-20); Calcium,Total 8.0 mg/dL (7.6-11.0); Carbon Dioxide 27.5 mmol/L (20.0-29.0); Chloride 106 mmol/L (96-106); Estimated Creatinine Clearance 36.19 ml/min (50-250); Glucose 80 mg/dL (70-99); Potassium 3.7 mmol/L (3.5-5.1)
[2025-09-29] MEDS: Pantoprazole Sodium 40 MG in 0.9% Normal Saline (100mL MB+) 100 ML 330 MG IV (09:43)
[2025-09-29] MEDS: Divalproex Sodium 125 MG SPRINKLE PO (09:43)
[2025-09-29] MEDS: Memantine Hydrochloride 10 MG Tablet PO (09:44)
[2025-09-29] MEDS: 0.9% Saline Lock 10 ML Syringe IV ×2 (09:45→17:53)
--- NOTE | 2025-09-29 12:13 | CASEMGMT ---
NARINDER BELTRAN Assessment: Noted pt with guardian, Svetlana Mejia. Reviewed therapy notes. Noted pt is A&Ox1. TC to pt dtr, guardian for initial transition planning/care coordination assessment. NARINDER BELTRAN introduced self and role at [facility], pt dtr voices understanding and consents to assessment. Care providers, pharmacy, and demographics verified/updated. Admitting Dx: N/V/D, Adult FTT, ? aspiration Strata Score: 3 PCP:Chirag Specialists:Gladys, onc; Rahul gerontology Preferred Pharmacy: [facility] Insurance: [facility] Prescription Benefit: yes LNOK: Svetlana Mejia, guardian and dtr Living Arrangements: Pt lives with nephew, his and their son in a single story home with a ramp to enter. They are pt cg and assist with all ADL/IADLs. Pt dtr states that the family cannot care for pt in the condition she is in now. Transportation: Pt family provides transportation for pt. DME:bedside rail, shower chair, BSC, w/c, walker, lift chair HHC/SNF: Pt has had HHC from an agency out of [place]. Pt has been to [facility] and [facility] for rehab. Pt dtr states she has been talking to pt about receiving therapy prior to coming home and pt is agreeable. Pt has family who work in the [facility] rehab dept and pt dtr would like her to go there. She states pt was agreeable to that as well. Pt dtr is aware that if they do not accept, a list can be sent electronically to her for her next top 3 preferences. She would like this texted to her. Pt dtr states no further concerns/needs. CM to follow. Advised pt dtr to ask CM if any further questions/concerns/needs arise, voices understanding. Pt Dtr Goal: [facility] for rehab Plan: [facility] for rehab pending acceptance and precert Requested dc assistant nurse manager send referral to [facility]. Vianey BARCENAS CM
--- NOTE | 2025-09-29 12:59 | CASEMGMT ---
Addendum entered by Brenda Poe 09/29/25 14:01: [facility] has accepted and will submit for precert. NARINDER CM updated. Brenda Poe DC Planning Asst. Original Note: Discharge Planning Referral sent via [facility] to [facility]. Brenda Poe DC Planning Asst.
--- NOTE | 2025-09-29 13:32 | PN.HOSP_ITS ---
Reason for Visit Chief Complaint: N/V/D, weakness and debility. Subjective Subjective Patient states she is overall feeling better today. I did review therapy notes and it does appear she may need placement. They will see her again today and she is aware she may need to go somewhere but would prefer to go home if possible. I did tell her that may not be possible depending on how she does. She was pretty weak yesterday. She did tolerate full liquid diet yesterday so we will advance to regular diet today. Objective Data Objective Data Vital Signs: Vital Signs Temp Pulse Resp BP Pulse Ox O2 Del Method O2 Flow Rate 98.6 F 62 16 162/44 H 98 Nasal Cannula 2 09/29/25 09:03 09/29/25 09:03 09/29/25 09:03 09/29/25 09:03 09/29/25 09:03 09/29/25 09:05 09/29/25 09:05 Oxygen Flow Rate (L/min) 2 Oxygen Delivery Method Nasal Cannula Weight: 69.3 kg Body Mass Index (BMI) 28.0 Intake & Output: Intake and Output for Last 24 Hours 09/27/25 09/28/25 09/29/25 23:59 23:59 23:59 Intake Total 1370 / 1420 948.75 / 948.75 100 / 100 Output Total 300 / 600 500 / 500 Balance 1370 / 1420 648.75 / 348.75 -400 / -400 Lab / Micro Data 09/29/25 03:29 09/29/25 03:29 Labs: Laboratory Results - last 24 hr 09/29/25 03:29: WBC 5.1, RBC 2.84 L, Hgb 8.8 L, Hct 27.9 L, MCV 98.2, MCH 31.0, MCHC 31.5 L, RDW Std Deviation 47.8 H, RDW Coeff of Jina 13.3, Plt Count 182, MPV 10.9, Immature Gran % (Auto) 0.400, Neut % (Auto) 42.0 L, Lymph % (Auto) 41.3 H, [place] % (Auto) 13.9 H, Eos % (Auto) 2.0, Baso % (Auto) 0.4, Absolute Neuts (auto) 2.2, Absolute Lymphs (auto) 2.11, Nucleated RBC % 0, Sodium 138, Potassium 3.7, Chloride 106, Carbon Dioxide 27.5, Anion Gap 4 L, BUN 18, Creatinine 1.06, Estim Creat Clear Calc 36.19 L, Est GFR (MDRD) Non-Af 52 L, BUN/Creatinine Ratio 17.1, Glucose 80, Calcium 8.0 Micro: Microbiology 09/27/25 20:10 Mucosa - Nasopharyngeal Respiratory Panel (PCR) - Final 09/27/25 13:42 Mucosa - Nose SARS-CoV-2, Influenza & RSV (PCR) - Final Physical Exam Const alert, no apparent distress, average body habitus and well nourished; Negative for healthy appearing Constitutional Narrative: Elderly, frail-appearing, white female, lying in bed, oriented to self, place, and month but not year, looks as if she is feeling much better today, appears comfortable and nontoxic HEENT head/scalp atraumatic and moist oral mucous membranes Head and Scalp: normocephalic Resp normal respiratory effort, no retractions, no use of accessory muscles and clear to auscultation bilaterally Auscultation: Negative for crackles, rhonchi or wheezes Cardio regular rate, regular rhythm, S1 normal heart sound, S2 normal heart sound, no rub, no gallops and no clicks; Negative for no murmurs Cardio Narrative: 3 out of 6 systolic murmur loudest at left lower sternal border GI normal to inspection, nondistended, normoactive bowel sounds, soft to palpation and non-tender Extremity no clubbing, cyanosis or edema Extremity Narrative: 2+ pedal and radial pulses Neuro moves all extremities and no focal motor deficits Neuro Narrative: Still with pretty significant generalized weakness, speech quality again is within normal limits however response time is delayed I suspect this is baseline Psych Psych Narrative: Affect is slightly flat but eye contact is good patient interacts appropriately, seems more energetic today Assessment & Plan Assessment/Plan (1) Viral gastroenteritis: (2) Nausea, vomiting and diarrhea: (3) Generalized weakness: (4) Fatigue: (5) Elevated troponin: (6) Acute anemia: (7) Dehydration: PLAN: Plan Nausea/vomiting/diarrhea secondary to suspected viral gastroenteritis - Multiple sick contacts at home - Resolved and now tolerating regular diet - Will advance diet to full liquids and then regular diet tomorrow if tolerates - Discontinue IV fluids Acute anemia - Appeared acute on admission but looks like her hemoglobin is stabilized so this may be her baseline - CBC is stable - Iron studies are consistent with chronic disease - Repeat CBC in a.m. - IV PPI twice daily for now if stable tomorrow will discontinue - patient is not anticoagulated or on any antiplatelet therapy Troponin elevation - Initial troponin was 33 with a delta of 31 - Suspect related to acute dehydration and acute illness - No chest pain - Will defer any further workup at this time Acute dehydration secondary to the above - Resolved - IV fluids discontinued Generalized weakness/fatigue - Likely related to the above - PT/OT consultation following and patient is significantly debilitated - CM/SW is following and patient will need referral to skilled facility -Is medically ready for discharge and awaiting family's choice for placement then will need pre-CERT CKD stage IIIa - Renal function is at baseline - Continue to monitor Age-indeterminate L1 compression fracture - Patient not complaining of significant acute pain so suspect not acute - 80% height loss - Continue as needed pain medication without patient follow-up Essential hypertension - Continue home amlodipine - continue home lisinopril - as needed hydralazine available History of breast cancer - Remote left-sided invasive ductal carcinoma stage II - Ongoing outpatient follow-up PAF - It was noted that patient was on Eliquis however that was not confirmed on med reconciliation so we will discontinue and investigate further - Patient does not appear to be on any rate controlling medication either at this time - I was not able to find Eliquis on external fill history either Dementia with behavioral disorder - Continue home memantine - Continue home galantamine - Continue home olanzapine - Continue home valproic acid Overactive bladder - Continue oxybutynin Depression/anxiety - Continue home citalopram DVT prophylaxis - Start subcu heparin twice daily CODE STATUS - DNR CCA with no intubation was verified at the time of admission Charges/Coding Visit Charges Inpatient E&M: 74269 Subs Hosp L2
--- NOTE | 2025-09-29 14:01 | CASEMGMT ---
Addendum entered by Shruthi Reinoso 09/29/25 15:56: Transport form, trf to ext care and signed med list provided to dc plastic surgery assistant to complete final dc plans. Report phone number given to pt nurse. Addendum entered by Shruthi Reinoso 09/29/25 14:38: Precert received. Updated hospitalist, pt is medically ready for dc. TC to Svetlana, she is aware that pt will be transport this date. Addendum entered by Shruthi Reinoso 09/29/25 14:20: DC readiness intervention added as well as transport sheet added to chart. Original Note: [facility] accepted pt and will submit for precert. TC to pt dtrSvetlana, she is aware.
--- NOTE | 2025-09-29 14:37 | CASEMGMT ---
[facility] has obtained auth to admit. NARINDER CM updated. Brenda Poe DC Planning Asst.
--- NOTE | 2025-09-29 14:45 | PCM.TXEXTCAR ---
Diet Diet Order/Speech Therapy: INPATIENT Hospital Diet / Speech Therapy Order(s) 09/29/25 12:15 Diet: Regular - No Added Salt Routine Orders/Code Status Suppository Frequency: Daily PRN Routine Lab Work: CBC (3-5 days) and BMP (3-5 days) Code Status: DNRCC-A DC O2, CPAP, BIPAP needs Home O2 Discharge instructions: No Suggestions for Active Care Change Position every (hours): 2 Hours to sit in a chair: 2 Times a day to sit in chair: 3 Therapies Weight Bearing: Full weight bearing Physical Therapy: Eval and Treat Occupational Therapy: Eval and Treat Speech Therapy: Eval and Treat Problem/Diagnosis (1) Viral gastroenteritis: Status: Acute Code(s): A08.4 - Viral intestinal infection, unspecified (2) Nausea, vomiting and diarrhea: Status: Acute Code(s): R11.2 - Nausea with vomiting, unspecified; R19.7 - Diarrhea, unspecified (3) Generalized weakness: Status: Acute Code(s): R53.1 - Weakness (4) Fatigue: Status: Acute Code(s): R53.83 - Other fatigue (5) Elevated troponin: Status: Acute Code(s): R79.89 - Other specified abnormal findings of blood chemistry (6) Acute anemia: Status: Acute Code(s): D64.9 - Anemia, unspecified (7) Dehydration: Status: Acute Code(s): E86.0 - Dehydration Allergies/Procedures Done in Hospital Allergies azithromycin (From Zithromax) Adverse Reaction (Severe, Verified 09/27/25 12:47) swell/tingle meperidine (From Demerol) Adverse Reaction (Severe, Verified 09/27/25 12:47) numbness/vomiting oxytetracycline (From Terramycin) Adverse Reaction (Severe, Verified 09/27/25 12:47) swell,tingle Penicillins (PCN) Adverse Reaction (Severe, Verified 09/27/25 12:47) swell,tingle propoxyphene (From Darvocet-N) Adverse Reaction (Severe, Verified 09/27/25 12:47) hallucinations Sulfa (Sulfonamide Antibiotics) Adverse Reaction (Severe, Verified 09/27/25 12:47) welts Procedures: - (Chest x-ray x 2/CT abdomen pelvis) Type of Care/Length of Stay Estimated LOS: Convalescent Care Less Than 30 days Type of Care Needed: Skilled Rehab Potential: Good Prognosis: Fair Additional Orders/Day of Discharge Day of Discharge: 09/29/25 Dietary and Speech Recommendations Dietitian Recommendations/Changes: Will change diet to Regular No Added Salt to help manage medical conditions Will continue to follow and monitor for changes in pt nutritional status and need for ONS pending po intake and wt trends - will make rec as indicated. Follow Up Care Please follow up with your Primary Care Physician in: 1 to 2 weeks after discharge from retirement facility Discharge Plan Admission Admit Date/Time: 09/27/25 16:34 Attending Provider: Komal Hammond Primary Care Provider: Yoav Beard Consulting Providers: Marlee De La Garza Discharge Orders/Prescriptions Prescriptions: No Action lisinopril [Zestril] 40 MG tablet 20 mg PO QHS oxybutynin chloride 5 mg Tablet 5 mg PO BID olanzapine 5 mg tablet 5 mg PO DAILY galantamine 24 mg capsule,ext rel. pellets 24 hr 24 mg PO DAILY divalproex 125 mg capsule, delayed rel sprinkle 125 mg PO BID cyclobenzaprine 5 mg tablet 5 mg PO QHS melatonin 10 mg capsule 10 mg PO QHS citalopram 40 mg tablet 40 mg PO DAILY amlodipine 5 mg tablet 5 mg PO DAILY memantine 10 mg tablet 10 mg PO BID nystatin [Nyamyc] 100,000 unit/gram Powder 1 applic topical BID Qty: 0 0RF Protocol: *Topical Application Instructions APPLICATION INSTRUCTIONS: folds acetaminophen 650 mg/20.3 mL Solution 650 mg PO Q6H PRN PRN (Reason: Pain 1-10 Or Fever) Qty: 0 0RF Referrals / Follow Up: Yoav Beard MD [Primary Care Provider, Family Practice]
--- NOTE | 2025-09-29 14:55 | PCM.DC.SUM ---
Providers Date of Admission: 09/27/25 Date of Discharge: 09/29/25 Primary Care Physician: Dr. Yoav Beard MD Reason For Visit: N/V/D, ADULT FTT, ? ASPIRATION Diagnosis Discharge Diagnosis (1) Viral gastroenteritis: Status: Acute Code(s): A08.4 - Viral intestinal infection, unspecified (2) Nausea, vomiting and diarrhea: Status: Acute Code(s): R11.2 - Nausea with vomiting, unspecified; R19.7 - Diarrhea, unspecified (3) Generalized weakness: Status: Acute Code(s): R53.1 - Weakness (4) Fatigue: Status: Acute Code(s): R53.83 - Other fatigue (5) Elevated troponin: Status: Acute Code(s): R79.89 - Other specified abnormal findings of blood chemistry (6) Acute anemia: Status: Acute Code(s): D64.9 - Anemia, unspecified (7) Dehydration: Status: Acute Code(s): E86.0 - Dehydration Medications at Discharge Home Medications lisinopril 40 mg tablet (Zestril) 20 mg PO QHS HTN 12/30/16 olanzapine 5 mg tablet 5 mg PO DAILY anti-psychotic 08/05/22 oxybutynin chloride 5 mg tablet 5 mg PO BID Overactive 08/05/22 amlodipine 5 mg tablet 5 mg PO DAILY HTN 01/12/24 citalopram 40 mg tablet 40 mg PO DAILY Depression 01/12/24 cyclobenzaprine 5 mg tablet 5 mg PO QHS Restless leg 01/12/24 divalproex 125 mg capsule,delayed release sprinkle 125 mg PO BID Unknown 01/12/24 galantamine 24 mg 24 hr capsule,extended release 24 mg PO DAILY Anti-dementia 01/12/24 melatonin 10 mg capsule 10 mg PO QHS Sleep aide 01/12/24 memantine 10 mg tablet 10 mg PO BID Anti-dementia 01/12/24 nystatin 100,000 unit/gram topical powder (Hiamy) 1 applic topical BID #0 grams 01/17/24 acetaminophen 325 mg tablet 650 mg (2 x 325 mg) PO Q4H PRN PRN Fever, pain 1-10/10 #0 tabs 09/29/25 Hospital Course Operations None Procedures EKG and - (Chest x-ray x 2/CT abdomen pelvis) Summary of Care Provided Minutes Spent on Discharge: 37 Hospital Course: Mrs. Valdes is an 84-year-old white female who presented to the emergency department [facility] 09/27/2025 with a chief complaint of nausea, vomiting, diarrhea, and weakness with debility. She has a complex past medical history including some dementia but lives at home with family and was noted to be normal the day prior to presentation however in the melanite she awoke with at least 3 episodes of nonbloody nonbilious emesis and nonbloody diarrhea with significant increase in fatigue and malaise. She had no significant abdominal pain, fevers, or chills. Given the severity of her weakness her family brought her to the emergency department for further evaluation. She currently resides with her niece and nephew. She had had some exposure to children in the family who had had low-grade temps but no specific nausea, vomiting, or diarrhea. Vital signs on presentation showed temperature of 99, heart rate 68, blood pressure was 177/50, respiratory rate was 18 and pulse ox was 96% on room air. CBC was unremarkable but did have a left shift and lymphopenia. Chemistry showed mild dehydration with a slightly elevated BUN and creatinine above her baseline but not true FORTINO, unremarkable liver functions and a troponin of 33 with a delta of 31. Patient had no chest pain. Her lipase was 17. COVID/flu/RSV was unremarkable. CT of the abdomen pelvis showed dilated bowel loops with fluid consistent with enterocolitis and an age-indeterminate compression fracture of L1 with 80% height loss. Patient was did deny any back pain in the emergency department. She was given IV fluids, and Zofran and they attempted to ambulate her in the emergency department however she was unable to do so she was admitted to the hospital. She was initially placed on a full liquid diet, placed on 2 L IV fluids and given antiemetics. We were able to advance her diet on 09/28/2025 to full liquid and she tolerated this well so advancement to regular diet was pursued on 09/29/2025 with no issue. She was seen by physical and Occupational Therapy on the and . Both days she struggled and had some difficulty with ambulation and required increased assistance therefore it was determined that she would benefit from ongoing therapy services at discharge and family was agreeable to skilled facility. She is accepted by skilled facility on the and pre-CERT was obtained by the insurance on the . She did have some desaturations with sleeping and it is unclear if she has some undiagnosed obstructive sleep apnea. At the time of discharge she was 96% on room air. She may need intermittent monitoring were sleeping to determine if she does have some nocturnal hypoxia related to FLORIAN. At this time we will place her on no oxygen supplementation at the time of discharge. No new medications were added and no medication changes were made at the time of discharge. Initially was thought that she was taking Eliquis however this was deemed to be not accurate and she was not discharged on this medication and it was discontinued on day one of her hospitalization. [facility] in stable condition. Discharge diagnoses: Nausea/vomiting/diarrhea secondary to viral gastroenteritis Chronic anemia secondary to chronic disease Troponin elevation secondary to acute dehydration with demand ischemia Acute dehydration Generalized weakness Debility Fatigue CKD stage III AA Indeterminate age L1 compression fracture Essential hypertension History of breast cancer PAF Dementia with behavioral disturbance Overactive bladder Depression Anxiety Weight / BMI Weight Weight: 69.3 kg Body Mass Index (BMI) 28.0 ABG / Lab / Microbiology Data 09/29/25 03:29 09/29/25 03:29 Laboratory: Laboratory Results - last 24 hr 09/29/25 03:29: WBC 5.1, RBC 2.84 L, Hgb 8.8 L, Hct 27.9 L, MCV 98.2, MCH 31.0, MCHC 31.5 L, RDW Std Deviation 47.8 H, RDW Coeff of Jina 13.3, Plt Count 182, MPV 10.9, Immature Gran % (Auto) 0.400, Neut % (Auto) 42.0 L, Lymph % (Auto) 41.3 H, [place] % (Auto) 13.9 H, Eos % (Auto) 2.0, Baso % (Auto) 0.4, Absolute Neuts (auto) 2.2, Absolute Lymphs (auto) 2.11, Nucleated RBC % 0, Sodium 138, Potassium 3.7, Chloride 106, Carbon Dioxide 27.5, Anion Gap 4 L, BUN 18, Creatinine 1.06, Estim Creat Clear Calc 36.19 L, Est GFR (MDRD) Non-Af 52 L, BUN/Creatinine Ratio 17.1, Glucose 80, Calcium 8.0 Microbiology: Microbiology 09/27/25 20:10 Mucosa - Nasopharyngeal Respiratory Panel (PCR) - Final 09/27/25 13:42 Mucosa - Nose SARS-CoV-2, Influenza & RSV (PCR) - Final D/C Instructions DC O2, CPAP, BIPAP Needs Home O2 Discharge instructions: No Patient's Goals Of Care - F/U Goals Reviewed Goals of care reviewed with patient: Yes - No change Meaningful Use Info Meaningful Use Meaningful Use Diagnoses (Choose all that apply): None applicable Discharge Plan Admission Admit Date/Time: 09/27/25 16:34 Primary Reason for Your Visit: Intractable nausea and vomiting Attending Provider: Komal Hammond Primary Care Provider: Yoav Beard Consulting Providers: Marlee De La Garza Discharge Orders/Prescriptions Prescriptions: New acetaminophen 325 mg Tablet 650 mg PO Q4H PRN PRN (Reason: Fever, pain 1-/10) Qty: 0 0RF Continued lisinopril [Zestril] 40 MG tablet 20 mg PO QHS oxybutynin chloride 5 mg Tablet 5 mg PO BID olanzapine 5 mg tablet 5 mg PO DAILY galantamine 24 mg capsule,ext rel. pellets 24 hr 24 mg PO DAILY divalproex 125 mg capsule, delayed rel sprinkle 125 mg PO BID cyclobenzaprine 5 mg tablet 5 mg PO QHS melatonin 10 mg capsule 10 mg PO QHS citalopram 40 mg tablet 40 mg PO DAILY amlodipine 5 mg tablet 5 mg PO DAILY memantine 10 mg tablet 10 mg PO BID nystatin [Nyamyc] 100,000 unit/gram Powder 1 applic topical BID Qty: 0 0RF Protocol: *Topical Application Instructions APPLICATION INSTRUCTIONS: folds Discontinued acetaminophen 650 mg/20.3 mL Solution 650 mg PO Q6H PRN PRN (Reason: Pain 1-10 Or Fever) Qty: 0 0RF Referrals / Follow Up: Yoav Beard MD [Primary Care Provider, Family Practice] - In 1 Week Referral Note: After discharge from skilled facility Disposition Disposition (needs filled in before D/C Order can be placed): [facility] Facility Charges/Coding Visit Charges Inpatient E&M: 33426 SNF Disch >30 Min
--- NOTE | 2025-09-29 16:04 | CASEMGMT ---
Discharge Planning Discharge orders, signed med list, and transport time sent via [facility] to [facility]. Nursing, SW, and pts daughter/legal guardian (Svetlana) updated. Brenda Poe DC Planning Asst
== END 2025-09-29 18:55 | disposition skilled nursing facility (03) | DRG 392 ==
LOC: ED 16:41 → MS3 16:52
PROVIDERS: Admitting Provider Family Medicine; Emergency Provider Student in an Organized Health Care Education/Training Program; PCP Family Medicine; Visit Provider Internal Medicine
DX: A08.4 Viral intestinal infection, unspecified (principal); F02.818 Dementia in other diseases classified elsewhere, unspecified severity, with other behavioral disturbance; I24.89 Other forms of acute ischemic heart disease; M48.56XA Collapsed vertebra, not elsewhere classified, lumbar region, initial encounter for fracture; D63.1 Anemia in chronic kidney disease; Z66 Do not resuscitate; I48.0 Paroxysmal atrial fibrillation; E86.0 Dehydration; N18.31 Chronic kidney disease, stage 3a; I12.9 Hypertensive chronic kidney disease with stage 1 through stage 4 chronic kidney disease, or unspecified chronic kidney disease; F32.A Depression, unspecified; F41.9 Anxiety disorder, unspecified; R53.81 Other malaise; Z79.899 Other long term (current) drug therapy; Z90.710 Acquired absence of both cervix and uterus; N32.81 Overactive bladder; Z87.891 Personal history of nicotine dependence; R79.89 Other specified abnormal findings of blood chemistry; Z86.73 Personal history of transient ischemic attack (TIA), and cerebral infarction without residual deficits; Z85.828 Personal history of other malignant neoplasm of skin; Z90.49 Acquired absence of other specified parts of digestive tract; Z85.3 Personal history of malignant neoplasm of breast; R53.1 Weakness; R53.83 Other fatigue
CPT/HCPCS: 36415; 71045; 71046; 74177; 80048; 80053; 81001; 82728; 83540; 83550; 83605; 83690; 83735; 84100; 84145; 84484; 85018; 85025; 85045; 87631; 87633; 93005; 97161; 97166; 97530; 97535; 99285; Q9967; A4216; J2405